=== PATIENT | female | born 1945 | race Caucasian/White ===

== ENCOUNTER → 2017-01-09 | Outpatient (CLI) | payer MEDICARE ==
[2017-01-09 13:41] LABS: Basophils # (A) 0.1 k/uL (0-0.2); Basophils % (A) 1 %; CH 26.5; CHCM 30.7; Eosinophils # (A) 0.2 k/uL (0-0.7); Eosinophils % (A) 2 %; HCT 39.9 % (34.0-46.0); HDW 2.91; HGB 12.2 gm/dL (11.4-16.0); Hypochromasia Moderate; Luc # (Auto) 0.15; Luc % (Auto) 2; Lymphocytes # (A) 1.5 k/uL (1.0-4.8); Lymphocytes % (A) 18 %; MCH 26.7 pg (25.0-35.0); MCHC 30.6 g/dL (31.0-37.0); Mean Platelet Volume 7.4; Monocytes # (A) 0.4 k/uL (0-1.0); Monocytes % (A) 5 %; Neutrophils # (A) 5.8 k/uL (1.3-7.7); Neutrophils % (A) 73 %; RBC 4.59 m/uL (3.80-5.40); RDW 15.1 % (11.5-15.5); WBC 7.9 k/uL (3.8-10.6); WBC (Perox) 7.91
[2017-01-09 14:59] LABS: ALT 75 U/L (9-52); AST 43 U/L (14-36); Alkaline Phosphatase 113 U/L (38-126); Anion Gap 6 mmol/L; Blood Urea Nitrogen 10 mg/dL (7-17); Calcium 9.1 mg/dL (8.4-10.2); Carbon Dioxide 27 mmol/L (22-30); Chloride 105 mmol/L (98-107); Cholesterol 300 mg/dL (<200); Glucose 174 mg/dL (74-99); HDL Cholesterol 43 mg/dL (40-60); Non-African American GFR(MDRD) >60 (>60 ml/min/1.73 sqM); Potassium 4.2 mmol/L (3.5-5.1); Sodium 138 mmol/L (137-145); Total Bilirubin 0.8 mg/dL (0.2-1.3); Total Protein 6.6 g/dL (6.3-8.2)
[2017-01-09 15:10] LABS: Digoxin 0.9 ng/mL
== END ==
LOC: LABWHC1 12:31
PROVIDERS: ATTEND Family Medicine
DX: I10 Essential (primary) hypertension (principal); E78.5 Hyperlipidemia, unspecified; I42.9 Cardiomyopathy, unspecified
CPT/HCPCS: 36415; 80053; 80061; 80162; 82306; 83036; 84443; 85025

== ENCOUNTER → 2017-02-21 | Outpatient (CLI) | payer MEDICARE ==
[2017-02-21 13:16] LABS: ALT 42 U/L (9-52); AST 24 U/L (14-36); Albumin 3.9 g/dL (3.5-5.0); Alkaline Phosphatase 113 U/L (38-126); Anion Gap 11 mmol/L; Blood Urea Nitrogen 13 mg/dL (7-17); Calcium 9.4 mg/dL (8.4-10.2); Carbon Dioxide 26 mmol/L (22-30); Chloride 103 mmol/L (98-107); Cholesterol 302 mg/dL (<200); Glucose 196 mg/dL (74-99); HDL Cholesterol 43 mg/dL (40-60); LDL Cholesterol,Calculated 195 mg/dL (0-99); Potassium 4.9 mmol/L (3.5-5.1); Sodium 140 mmol/L (137-145); Total Bilirubin 0.6 mg/dL (0.2-1.3); Total Protein 7.1 g/dL (6.3-8.2); Triglycerides 320 mg/dL (<150)
== END | disposition home or self-care (01) ==
LOC: LABWHC1 11:57
PROVIDERS: ATTEND Family Medicine
DX: E78.5 Hyperlipidemia, unspecified (principal)
CPT/HCPCS: 36415; 80053; 80061; 82306

== ENCOUNTER 2017-05-20 17:49 | Inpatient (IN) | payer MEDICARE ==
[2017-05-20 18:12] LABS: Glucose,Whole Blood 494 mg/dL (75-99)
[2017-05-20] MEDS ORDERED: SODIUM CHLORIDE 0.9% 1,000 ML IV ONE ×2 (18:22)
[2017-05-20] MEDS ORDERED: INSULIN REGULAR 100 UNIT/ML VIAL SQ STA (18:23)
--- NOTE | 2017-05-20 18:28 | ED ---
Altered Mental Status HPI - General Chief Complaint: Altered Mental Status Stated Complaint: ALTERED MENTAL Time Seen by Provider: 05/20/17 18:15 Source: patient Mode of arrival: ambulatory Limitations: no limitations - History of Present Illness Initial Comments: This 72-year-old white female presents with the sister with a complaint of some altered mental status. The patient was supposed to go out with her sister for lunch yesterday when she called it off due to some problems with her vision. She did not answer her phone this morning so her sister went over to her house. She apparently was very confused and was trying to climb into the fridge among other things. The patient complains that her mouth feels dry but otherwise does not have any other complaints and is not in pain. She denies any recent injuries or head injuries. She is diabetic and her blood sugar is elevated. She denies any urinary symptoms. She denies any pulmonary symptoms. She is on Coumadin due to a mitral valve replacement. She also has a pacemaker. No other complaints or modifying factors. History is somewhat limited as patient is fairly confused. On recheck, the patient does relate that she may have missed some of her medications but still is very confused. - Related Data Home Medications Medication Instructions Recorded Confirmed Digoxin [Lanoxin] 0.25 mg PO DAILY 11/09/13 05/20/17 Furosemide [Lasix] 40 mg PO BID 11/09/13 05/20/17 Pioglitazone [Actos] 15 mg PO DAILY 11/09/13 05/20/17 Lisinopril [Prinivil] 10 mg PO DAILY 05/20/17 05/20/17 Pravastatin Sodium [Pravachol] 40 mg PO HS 05/20/17 05/20/17 Warfarin Sodium 7.5 mg PO FR 05/20/17 05/20/17 Warfarin [Coumadin] 5 mg PO DAILY 05/20/17 05/20/17 metFORMIN HCL 1,000 mg PO BID 05/20/17 05/20/17 Allergies Allergy/AdvReac Type Severity Reaction Status Date / Time ciprofloxacin [From Cipro] Allergy Rash/Hives Verified 06/13/15 11:30 ciprofloxacin HCl Allergy Rash/Hives Verified 06/13/15 11:30 [From Cipro] Quinolones Allergy Unknown Verified 06/13/15 11:30 Review of Systems ROS Statement: Those systems with pertinent positive or pertinent negative responses have been documented in the HPI. ROS Other: All systems not noted in ROS Statement are negative. Past Medical History Past Medical History: Atrial Fibrillation, Asthma, Cancer, Diabetes Mellitus, Hyperlipidemia, Hypertension, Sleep Apnea/CPAP/BIPAP Additional Past Medical History / Comment(s): BREAST CA HAD LT LUMPECTOMY, MIGRAINES History of Any Multi-Drug Resistant Organisms: None Reported Past Surgical History: Breast Surgery, Orthopedic Surgery Additional Past Surgical History / Comment(s): LUMPECTOMY- LEFT BREAST FOR TREATMENT OF CA, D AND C, SINUS HAS A MECHANICAL VALVE, PACEMEKER, BETSY CATARACT SX -LENS IMPLANTS, SX FOR BROKEN RT FEMUR HAS METAL IN PLACE, LT ROTATOR CUFF SX. Mitral valve replacement mechanical, right hip fracture requiring right hip hemiarthroplasty in March 2012 hemiarthroplasty in the 2012 left breast lumpectomy with radiation treatment: Polypectomy spinal cord cyst removal partial hysterectomy Past Anesthesia/Blood Transfusion Reactions: No Reported Reaction Date of Last Stent Placement:: 2004? Type of Cardiac Device: Permanent Pacemaker Device Placement Date:: 2008 Past Psychological History: No Psychological Hx Reported Smoking Status: Former smoker Past Alcohol Use History: Rare Past Drug Use History: None Reported - Past Family History Father Additional Family Medical History / Comment(s): OF BLEEDING ULCER AT AGE 64 mother with colon cancer Mother Family Medical History: Cancer, CVA/TIA Additional Family Medical History / Comment(s): 88 YEARS OLD- HX STROKES, CANCER INTESTINAKL TRACT General Exam - General Exam Comments Initial Comments: GENERAL: The patient is well nourished and well hydrated. VITAL SIGNS: Heart rate, blood pressure, respiratory rate reviewed as recorded in nurse's notes. EYES: Pupils are round and reactive. Extraocular movements are intact. No conjunctival / lid redness or swelling. Vision is grossly intact. ENT: No external evidence of injury, swelling, or ecchymosis. Airway is patent. Throat is clear. NECK: Nontender. No swelling or evidence of injury. No subcutaneous emphysema. Trachea is midline. No thyroid mass. HEART: Tachycardic irregular heart rate. Good peripheral pulses. LUNGS/CHEST: Breath sounds clear and equal bilaterally. No rales, rhonchi, or wheezes. No ecchymosis, subcutaneous emphysema, or tenderness. ABDOMEN: Abdomen soft without tenderness. No palpable masses or organomegaly. No peritoneal signs. No abdominal wall swelling or ecchymosis. EXTREMITIES: No extremity tenderness. Normal muscle tone and function. No thoracolumbar tenderness. No peripheral edema noted. NEUROLOGIC: Sensation is grossly intact. Cranial nerve exam reveals face is symmetrical, tongue is midline, speech is clear. Normal muscle strength. SKIN: No abrasions or ecchymosis is noted. No induration or masses noted. PSYCHIATRIC: Alert but confused. Appropriate behavior and judgment. Limitations: no limitations Course Vital Signs 05/20/17 05/20/17 05/20/17 17:56 18:35 20:05 Temperature 98.0 F 98.4 F Pulse Rate 72 123 H 120 H Respiratory 18 18 18 Rate Blood Pressure 202/102 185/95 201/96 O2 Sat by Pulse 98 96 Oximetry 05/20/17 20:56 Temperature Pulse Rate 109 H Respiratory 18 Rate Blood Pressure 185/88 O2 Sat by Pulse 99 Oximetry Medical Decision Making - Medical Decision Making The patient was seen and examined. All diagnostics were reviewed. An EKG was done which shows atrial flutter at a heart rate of 120. The patient has some ST -T wave abnormalities primarily in the inferior leads and slightly into lead 1. The QRS duration is 86, and the QTC intervals 460. An IV is started and she is hydrated. Her blood sugar was significantly elevated and she received 14 units of insulin subcutaneously. The laboratory came back with multiple abnormalities including a glucose level elevated at 568, potassium elevated at 5.5, subtherapeutic INR at 1.2, elevated white blood cell count at 14, and a CO2 of 20. She also has some ketones in her urine but there is no evidence of urinary infection. The chest x-ray shows some pulmonary congestion and cardiomegaly. The computed tomography scan shows an old lacunar infarct as well as some sinusitis. She does relate that she has chronic sinus congestion. It is felt as though she would require admission to the hospital. She is started on a Cardizem drip and also receives heparin drip. She is slightly improved on recheck but still confused. The case is discussed with internal medicine and they're agreeable with admission. Approximately 30 minutes of critical care time is utilized and the treatment of the patient. - Lab Data Result diagrams: 05/20/17 18:20 05/20/17 18:20 Lab Results 05/20/17 05/20/17 05/20/17 Range/Units 18:09 18:20 18:20 WBC 14.0 H (3.8-10.6) k/uL RBC 6.11 H (3.80-5.40) m/uL Hgb 15.8 (11.4-16.0) gm/dL Hct 52.2 H (34.0-46.0) % MCV 85.4 (80.0-100.0) fL MCH 25.9 (25.0-35.0) pg MCHC 30.3 L (31.0-37.0) g/dL RDW 15.4 (11.5-15.5) % Plt Count 248 (150-450) k/uL Neutrophils % 89 % Lymphocytes % 6 % Monocytes % 4 % Eosinophils % 1 % Basophils % 0 % Neutrophils # 12.4 H (1.3-7.7) k/uL Lymphocytes # 0.9 L (1.0-4.8) k/uL Monocytes # 0.5 (0-1.0) k/uL Eosinophils # 0.1 (0-0.7) k/uL Basophils # 0.0 (0-0.2) k/uL Hypochromasia Slight PT (9.0-12.0) sec INR (<1.2) APTT (22.0-30.0) sec Sodium (137-145) mmol/L Potassium (3.5-5.1) mmol/L Chloride (98-107) mmol/L Carbon Dioxide (22-30) mmol/L Anion Gap mmol/L BUN (7-17) mg/dL Creatinine (0.52-1.04) mg/dL Est GFR (CKD-EPI)AfAm (>60 ml/min/1.73 sqM) Est GFR (CKD-EPI)NonAf (>60 ml/min/1.73 sqM) Glucose (74-99) mg/dL POC Glucose (mg/dL) 494 H (75-99) mg/dL POC Glu [employer] ID Nataliya Islas Calcium (8.4-10.2) mg/dL Total Bilirubin (0.2-1.3) mg/dL AST (14-36) U/L ALT (9-52) U/L Alkaline Phosphatase (38-126) U/L Ammonia <9 (<30) umol/L Total Creatine Kinase (30-135) U/L CK-MB (CK-2) (0.0-2.4) ng/mL CK-MB (CK-2) Rel Index Troponin I (0.000-0.034) ng/mL Total Protein (6.3-8.2) g/dL Albumin (3.5-5.0) g/dL Urine Color Urine Appearance (Clear) Urine pH (5.0-8.0) Ur Specific [place] (1.001-1.035) Urine Protein (Negative) Urine Glucose (UA) (Negative) Urine Ketones (Negative) Urine Blood (Negative) Urine Nitrite (Negative) Urine Bilirubin (Negative) Urine Urobilinogen (<2.0) mg/dL Ur Leukocyte Esterase (Negative) Urine RBC (0-5) /hpf Urine WBC (0-5) /hpf Ur Squamous Epith Cells (0-4) /hpf Urine Bacteria (None) /hpf Hyaline Casts (0-2) /lpf Urine Opiates Screen (NotDetected) Ur Oxycodone Screen (NotDetected) Urine Methadone Screen (NotDetected) Ur Propoxyphene Screen (NotDetected) Ur Barbiturates Screen (NotDetected) U Tricyclic Antidepress (NotDetected) Ur Phencyclidine Scrn (NotDetected) Ur Amphetamines Screen (NotDetected) U Methamphetamines Scrn (NotDetected) U Benzodiazepines Scrn (NotDetected) Urine Cocaine Screen (NotDetected) U Marijuana (THC) Screen (NotDetected) 05/20/17 05/20/17 05/20/17 Range/Units 18:20 18:20 18:20 WBC (3.8-10.6) k/uL RBC (3.80-5.40) m/uL Hgb (11.4-16.0) gm/dL Hct (34.0-46.0) % MCV (80.0-100.0) fL MCH (25.0-35.0) pg MCHC (31.0-37.0) g/dL RDW (11.5-15.5) % Plt Count (150-450) k/uL Neutrophils % % Lymphocytes % % Monocytes % % Eosinophils % % Basophils % % Neutrophils # (1.3-7.7) k/uL Lymphocytes # (1.0-4.8) k/uL Monocytes # (0-1.0) k/uL Eosinophils # (0-0.7) k/uL Basophils # (0-0.2) k/uL Hypochromasia PT 11.1 (9.0-12.0) sec INR 1.2 H (<1.2) APTT 21.2 L (22.0-30.0) sec Sodium 133 L (137-145) mmol/L Potassium 5.5 H (3.5-5.1) mmol/L Chloride 91 L (98-107) mmol/L Carbon Dioxide 20 L (22-30) mmol/L Anion Gap 22 mmol/L BUN 33 H (7-17) mg/dL Creatinine 1.20 H (0.52-1.04) mg/dL Est GFR (CKD-EPI)AfAm 53 (>60 ml/min/1.73 sqM) Est GFR (CKD-EPI)NonAf 46 (>60 ml/min/1.73 sqM) Glucose 568 H* (74-99) mg/dL POC Glucose (mg/dL) (75-99) mg/dL POC Glu [employer] ID Calcium 10.0 (8.4-10.2) mg/dL Total Bilirubin 1.6 H (0.2-1.3) mg/dL AST 29 (14-36) U/L ALT 33 (9-52) U/L Alkaline Phosphatase 140 H (38-126) U/L Ammonia (<30) umol/L Total Creatine Kinase (30-135) U/L CK-MB (CK-2) (0.0-2.4) ng/mL CK-MB (CK-2) Rel Index Troponin I (0.000-0.034) ng/mL Total Protein 8.2 (6.3-8.2) g/dL Albumin 4.6 (3.5-5.0) g/dL Urine Color Light Yellow Urine Appearance Clear (Clear) Urine pH 5.5 (5.0-8.0) Ur Specific [place] 1.025 (1.001-1.035) Urine Protein 1+ H (Negative) Urine Glucose (UA) 4+ H (Negative) Urine Ketones 2+ H (Negative) Urine Blood Small H (Negative) Urine Nitrite Negative (Negative) Urine Bilirubin Negative (Negative) Urine Urobilinogen <2.0 (<2.0) mg/dL Ur Leukocyte Esterase Negative (Negative) Urine RBC 1 (0-5) /hpf Urine WBC 4 (0-5) /hpf Ur Squamous Epith Cells 1 (0-4) /hpf Urine Bacteria Rare H (None) /hpf Hyaline Casts 11 H (0-2) /lpf Urine Opiates Screen Not Detected (NotDetected) Ur Oxycodone Screen Not Detected (NotDetected) Urine Methadone Screen Not Detected (NotDetected) Ur Propoxyphene Screen Not Detected (NotDetected) Ur Barbiturates Screen Not Detected (NotDetected) U Tricyclic Antidepress Not Detected (NotDetected) Ur Phencyclidine Scrn Not Detected (NotDetected) Ur Amphetamines Screen Not Detected (NotDetected) U Methamphetamines Scrn Not Detected (NotDetected) U Benzodiazepines Scrn Not Detected (NotDetected) Urine Cocaine Screen Not Detected (NotDetected) U Marijuana (THC) Screen Not Detected (NotDetected) 05/20/17 05/20/17 Range/Units 18:20 19:43 WBC (3.8-10.6) k/uL RBC (3.80-5.40) m/uL Hgb (11.4-16.0) gm/dL Hct (34.0-46.0) % MCV (80.0-100.0) fL MCH (25.0-35.0) pg MCHC (31.0-37.0) g/dL RDW (11.5-15.5) % Plt Count (150-450) k/uL Neutrophils % % Lymphocytes % % Monocytes % % Eosinophils % % Basophils % % Neutrophils # (1.3-7.7) k/uL Lymphocytes # (1.0-4.8) k/uL Monocytes # (0-1.0) k/uL Eosinophils # (0-0.7) k/uL Basophils # (0-0.2) k/uL Hypochromasia PT (9.0-12.0) sec INR (<1.2) APTT (22.0-30.0) sec Sodium (137-145) mmol/L Potassium (3.5-5.1) mmol/L Chloride (98-107) mmol/L Carbon Dioxide (22-30) mmol/L Anion Gap mmol/L BUN (7-17) mg/dL Creatinine (0.52-1.04) mg/dL Est GFR (CKD-EPI)AfAm (>60 ml/min/1.73 sqM) Est GFR (CKD-EPI)NonAf (>60 ml/min/1.73 sqM) Glucose (74-99) mg/dL POC Glucose (mg/dL) 381 H (75-99) mg/dL POC Glu [employer] ID Nataliya Islas Calcium (8.4-10.2) mg/dL Total Bilirubin (0.2-1.3) mg/dL AST (14-36) U/L ALT (9-52) U/L Alkaline Phosphatase (38-126) U/L Ammonia (<30) umol/L Total Creatine Kinase 59 (30-135) U/L CK-MB (CK-2) 1.4 (0.0-2.4) ng/mL CK-MB (CK-2) Rel Index 2.4 Troponin I 0.017 (0.000-0.034) ng/mL Total Protein (6.3-8.2) g/dL Albumin (3.5-5.0) g/dL Urine Color Urine Appearance (Clear) Urine pH (5.0-8.0) Ur Specific [place] (1.001-1.035) Urine Protein (Negative) Urine Glucose (UA) (Negative) Urine Ketones (Negative) Urine Blood (Negative) Urine Nitrite (Negative) Urine Bilirubin (Negative) Urine Urobilinogen (<2.0) mg/dL Ur Leukocyte Esterase (Negative) Urine RBC (0-5) /hpf Urine WBC (0-5) /hpf Ur Squamous Epith Cells (0-4) /hpf Urine Bacteria (None) /hpf Hyaline Casts (0-2) /lpf Urine Opiates Screen (NotDetected) Ur Oxycodone Screen (NotDetected) Urine Methadone Screen (NotDetected) Ur Propoxyphene Screen (NotDetected) Ur Barbiturates Screen (NotDetected) U Tricyclic Antidepress (NotDetected) Ur Phencyclidine Scrn (NotDetected) Ur Amphetamines Screen (NotDetected) U Methamphetamines Scrn (NotDetected) U Benzodiazepines Scrn (NotDetected) Urine Cocaine Screen (NotDetected) U Marijuana (THC) Screen (NotDetected) Disposition Clinical Impression: Mental status change, Hypertension, Hyperglycemia, Atrial flutter with rapid ventricular response, Diabetes, Hyperkalemia, Hallucinations, Confusion, Pulmonary congestion, Subtherapeutic international normalized ratio (INR), Sinusitis, Leukocytosis Disposition: ADMITTED IP TO THIS HOSP Condition: Fair Referrals: None,Stated [Primary Care Provider] - 1-2 days Time of Disposition: 21:21 Decision Date: 05/20/17 Decision Time: 21:21
[2017-05-20 18:39] LABS: Basophils % (A) 0 %; Eosinophils # (A) 0.1 k/uL (0-0.7); Eosinophils % (A) 1 %; HCT 52.2 % (34.0-46.0); HGB 15.8 gm/dL (11.4-16.0); Hypochromasia Slight; Lymphocytes # (A) 0.9 k/uL (1.0-4.8); Lymphocytes % (A) 6 %; MCH 25.9 pg (25.0-35.0); MCHC 30.3 g/dL (31.0-37.0); MCV 85.4 fL (80.0-100.0); Mean Platelet Volume 8.7; Monocytes # (A) 0.5 k/uL (0-1.0); Monocytes % (A) 4 %; Neutrophils # (A) 12.4 k/uL (1.3-7.7); Neutrophils % (A) 89 %; Platelet Count 248 k/uL (150-450); RBC 6.11 m/uL (3.80-5.40); RDW 15.4 % (11.5-15.5)
[2017-05-20 18:43] LABS: Appearance,Urine Clear (Clear); Bacteria,Urine Rare /hpf; Bilirubin,Urine Negative (Negative); Blood,Urine Small (Negative); Color,Urine Light Yellow; Glucose,Urine (UA) 4+ (Negative); Hyaline Casts,Urine 11 /lpf (0-2); Leukocyte Esterase,Urine Negative (Negative); Nitrite,Urine Negative (Negative); PH, Urine 5.5 (5.0-8.0); Protein,Urine 1+ (Negative); RBC,Urine 1 /hpf (0-5); Specific Gravity,Urine 1.025 (1.001-1.035); Squamous Epithelial Cell,Urine 1 /hpf (0-4); Urobilinogen,Urine <2.0 mg/dL (<2.0); WBC,Urine 4 /hpf (0-5)
[2017-05-20 18:48] LABS: Ketones,Urine 2+ (Negative)
[2017-05-20 18:49] LABS: Amphetamine Screen,Urine Not Detected (NotDetected); Barbiturate Screen,Urine Not Detected (NotDetected); Benzodiazepines Screen,Urine Not Detected (NotDetected); Cocaine Screen,Urine Not Detected (NotDetected); Methadone Screen, Urine Not Detected (NotDetected); Opiate Screen,Urine Not Detected (NotDetected); Oxycodone Screen, Urine Not Detected (NotDetected); Phencyclidine Screen,Urine Not Detected (NotDetected); Tricyclic Antidepressant,Urine Not Detected (NotDetected); Urn Cannabinoid Scrn Not Detected (NotDetected)
[2017-05-20 18:51] LABS: Albumin 4.6 g/dL (3.5-5.0); Potassium 5.5 mmol/L (3.5-5.1); Total Bilirubin 1.6 mg/dL (0.2-1.3); Total Protein 8.2 g/dL (6.3-8.2)
[2017-05-20 18:56] LABS: INR 1.2 (<1.2); Prothrombin Time 11.1 sec (9.0-12.0)
--- NOTE | 2017-05-20 19:08 | XR ---
EXAMINATION TYPE: XR chest 2V DATE OF EXAM: 05/20/2017 COMPARISON: 11/14/2013 HISTORY: Altered mental status TECHNIQUE: Frontal and lateral views of the chest are obtained. FINDINGS: Heart is enlarged. There is mild pulmonary congestion. There is a right axillary pacemaker with the lead tips in the right ventricle. There are sternal wires. I see no pleural effusion. IMPRESSION: Cardiomegaly and pulmonary congestion appears slightly worse than last exam. No pleural fluid. There is no overt heart failure.
[2017-05-20 19:12] LABS: Partial Thromboplastin Time 21.2 sec (22.0-30.0)
[2017-05-20 19:16] LABS: Creatine Kinase MB 1.4 ng/mL (0.0-2.4); Troponin I 0.017 ng/mL (0.000-0.034)
--- NOTE | 2017-05-20 19:38 | CT ---
EXAMINATION TYPE: CT brain wo con DATE OF EXAM: 05/20/2017 COMPARISON: NONE HISTORY: Patient appears confused and has difficulty following instructions CT DLP: 1923 mGycm Automated exposure control for dose reduction was used. FINDINGS: There is mild cerebral cortical atrophy. There is no mass effect nor midline shift. There is no sign of intracranial hemorrhage. There is old 2 cm lacunar infarct in the anterior right internal capsule and right posterior frontal lobe white matter. The calvarium appears intact. There is some mucosal th ickening in the right frontal sinus. IMPRESSION: RIGHT FRONTAL SINUSITIS. CEREBRAL ATROPHY. 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
[2017-05-20 19:45] LABS: Glucose,Whole Blood 381 mg/dL (75-99)
[2017-05-20] MEDS ORDERED: DILTIAZEM 50 MG in SODIUM CHLORIDE 0.9% 40 ML IV ONE (19:45)
[2017-05-20] MEDS ORDERED: HEPARIN SODIUM,PORCINE 5,000 UNIT/ML 1 ML VIAL IV PRN (20:33)
[2017-05-20] MEDS ORDERED: HEPARIN SODIUM,PORCINE 5,000 UNIT/ML 1 ML VIAL IV ONE (20:33)
[2017-05-20] MEDS: HEPARIN SOD,PORK IN 0.45% NACL 25,000 UNIT in 0.45% NACL 1 500ML.BAG IV SCH (20:54)
[2017-05-20] MEDS ORDERED: SODIUM POLYSTYRENE SULFONATE 15 GM/60 ML BOTTLE PO STA (21:21)
[2017-05-20] MEDS ORDERED: ONDANSETRON 4 MG/2 ML VIAL IVP PRN (21:22)
[2017-05-20] MEDS ORDERED: NALOXONE 0.4 MG/ML 1 ML VIAL IV PRN (21:22)
[2017-05-21 00:29] LABS: Glucose,Whole Blood 274 mg/dL (75-99)
[2017-05-21 00:50] LABS: Troponin I 0.037 ng/mL (0.000-0.034)
[2017-05-21 06:03] LABS: Glucose,Whole Blood 153 mg/dL (75-99)
[2017-05-21] MEDS: INSULIN ASPART 100 UNIT/ML 1 ML 10 ML VIAL SQ SCH ×4 (06:13→21:34)
[2017-05-21] MEDS: FUROSEMIDE 40 MG TAB PO SCH ×2 (06:15→15:55)
[2017-05-21] MEDS ORDERED: metFORMIN 500 MG TAB PO SCH (07:30)
[2017-05-21 07:42] LABS: Creatine Kinase MB 0.9 ng/mL (0.0-2.4)
[2017-05-21 07:45] LABS: Troponin I 0.039 ng/mL (0.000-0.034)
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
[2017-05-21] MEDS ORDERED: LISINOPRIL 10 MG TAB PO SCH (09:00)
[2017-05-21] MEDS: PANTOPRAZOLE 40 MG/10 ML VIAL IV SCH (09:46)
[2017-05-21] MEDS: PIOGLITAZONE 15 MG TAB PO SCH (09:46)
[2017-05-21] MEDS: METOPROLOL TARTRATE 25 MG TAB PO SCH ×2 (09:46→20:46)
[2017-05-21] MEDS: DIGOXIN 250 MCG TAB PO SCH (09:46)
--- NOTE | 2017-05-21 11:30 | P.HPIM ---
History of Present Illness Patient is a very pleasant 72-year-old female was brought into the hospital because she was confused at home patient is found to have highly elevated blood sugars patient denied any fever chills dysuria patient denied any cough runny nose. Patient blood sugars are highly elevated patient stopped taking her medications as they she didn't feel well patient appears to be depressed after her mother's demise patient did say that she has been taking Coumadin but had INR is only 1.2. We do not believe patient is a taking Coumadin at home patient will be resumed on 7.5 mg of troponin patient does have history of atrial fibrillation patient does have some pulmonary edema on the chest x-ray BNP is only 500 patient has minimally elevated JVD patient is undergone treatment for the can start failure patient's previous ejection fraction is 50- 55% patient may either have metabolic encephalopathy are a small stroke and within her confusion neurology will be consulted patient will be resumed on anti -correlation as mentioned above valid to the patient. Patient blood sugars are well controlled patient's metformin were discontinued because of the borderline kidney function lisinopril will be held because of the hyperkalemia repeat a single metabolic profile tomorrow. Neurology was consulted. Her mental status is close to her baseline now Review of Systems REVIEW OF SYSTEMS: CONSTITUTIONAL: No fever, no malaise, no fatigue. HEENT: No recent visual problems or hearing problems. Denied any sore throat. CARDIOVASCULAR: No chest pain, orthopnea, PND, no palpitations, no syncope. PULMONARY: No shortness of breath, no cough, no hemoptysis. GASTROINTESTINAL: No diarrhea, no nausea, no vomiting, no abdominal pain. Normoactive bowel sounds. NEUROLOGICAL: No headaches, no weakness, no numbness. HEMATOLOGICAL: Denies any bleeding or petechiae. GENITOURINARY: Denies any burning micturition, frequency, or urgency. MUSCULOSKELETAL/RHEUMATOLOGICAL: Denies any joint pain, swelling, or any muscle pain. ENDOCRINE: Denies any polyuria or polydipsia. The rest of the 14-point review of systems is negative. Past Medical History Past Medical History: Atrial Fibrillation, Atrial Flutter, Asthma, Cancer, Diabetes Mellitus, Hyperlipidemia, Hypertension, Sleep Apnea/CPAP/BIPAP Additional Past Medical History / Comment(s): BREAST CA HAD LT LUMPECTOMY, MIGRAINES History of Any Multi-Drug Resistant Organisms: None Reported Past Surgical History: Breast Surgery, Orthopedic Surgery Additional Past Surgical History / Comment(s): LUMPECTOMY- LEFT BREAST FOR TREATMENT OF CA, D AND C, SINUS HAS A MECHANICAL VALVE, PACEMEKER, BETSY CATARACT SX -LENS IMPLANTS, SX FOR BROKEN RT FEMUR HAS METAL IN PLACE, LT ROTATOR CUFF SX. Mitral valve replacement mechanical, right hip fracture requiring right hip hemiarthroplasty in March 2012 hemiarthroplasty in the 2012 left breast lumpectomy with radiation treatment: Polypectomy spinal cord cyst removal partial hysterectomy Past Anesthesia/Blood Transfusion Reactions: No Reported Reaction Date of Last Stent Placement:: 2004? Type of Cardiac Device: Permanent Pacemaker Device Placement Date:: 2008 Past Psychological History: No Psychological Hx Reported Smoking Status: Former smoker Past Alcohol Use History: Rare Additional Past Alcohol Use History / Comment(s): SMOKED OFF AND ON 1960 LESS THAN A YEAR THEN QUIT Past Drug Use History: None Reported - Past Family History Father Additional Family Medical History / Comment(s): OF BLEEDING ULCER AT AGE 64 mother with colon cancer Mother Family Medical History: Cancer, CVA/TIA Additional Family Medical History / Comment(s): 88 YEARS OLD- HX STROKES, CANCER INTESTINAKL TRACT Medications and Allergies Home Medications Medication Instructions Recorded Confirmed Type Digoxin [Lanoxin] 0.25 mg PO DAILY 11/09/13 05/20/17 History Furosemide [Lasix] 40 mg PO BID 11/09/13 05/20/17 History Pioglitazone [Actos] 15 mg PO DAILY 11/09/13 05/20/17 History Lisinopril [Prinivil] 10 mg PO DAILY 05/20/17 05/20/17 History Pravastatin Sodium [Pravachol] 40 mg PO HS 05/20/17 05/20/17 History Warfarin Sodium 7.5 mg PO FR 05/20/17 05/20/17 History Warfarin [Coumadin] 5 mg PO DAILY 05/20/17 05/20/17 History metFORMIN HCL 1,000 mg PO BID 05/20/17 05/20/17 History Allergies Allergy/AdvReac Type Severity Reaction Status Date / Time ciprofloxacin [From Cipro] Allergy Rash/Hives Verified 06/13/15 11:30 ciprofloxacin HCl Allergy Rash/Hives Verified 06/13/15 11:30 [From Cipro] Quinolones Allergy Unknown Verified 05/02/16 11:30 Physical Exam Vitals: Vital Signs Temp Pulse Pulse Resp BP BP Pulse Ox 05/21/17 09:41 95 05/21/17 08:00 98.3 F 71 16 114/59 98 05/21/17 04:00 98.2 F 90 18 116/58 99 05/20/17 23:58 98.4 F 110 H 18 143/63 95 05/20/17 23:48 110 H 18 05/20/17 22:07 99.2 F 05/20/17 22:00 98.4 F 110 H 18 143/63 95 05/20/17 21:47 112 H 18 176/74 99 05/20/17 20:56 109 H 18 185/88 99 05/20/17 20:05 98.4 F 120 H 18 201/96 96 05/20/17 18:35 123 H 18 185/95 05/20/17 17:56 98.0 F 72 18 202/102 98 Intake and Output 05/20/17 05/21/17 05/21/17 22:59 06:59 14:59 Intake Total 246 124.875 Balance 246 124.875 Intake: Intake, IV Titration 246 124.875 Amount Diltiazem 50 mg In Sodium 10 Chloride 0.9% 40 ml @ 5 MG/HR 5 mls/hr IV .Q10H [facility] Rx#:[id number] Heparin Sod,Pork in 0.45% 36 124.875 NaCl 25,000 unit In 0.45 % NaCl 1 500ml.bag @ 12 UNITS/KG/HR 18.5 mls/hr IV .Q24H [facility] Rx#: [id number] Sodium Chloride 0.9% 1, 200 000 ml @ 100 mls/hr IV . Q10H [facility] Rx#:[id number] Other: Voiding Method Toilet Weight 77.111 kg 80.5 kg 80.5 kg PHYSICAL EXAMINATION: GENERAL: The patient is alert and oriented x3, not in any acute distress. Well developed, well nourished. HEENT: Pupils are round and equally reacting to light. EOMI. No scleral icterus. No conjunctival pallor. Normocephalic, atraumatic. No pharyngeal erythema. No thyromegaly. CARDIOVASCULAR: S1 and S2 present. No murmurs, rubs, or gallops. Patient has minimally elevated JVD PULMONARY: Chest is clear to auscultation, no wheezing or crackles. ABDOMEN: Soft, nontender, nondistended, normoactive bowel sounds. No palpable organomegaly. MUSCULOSKELETAL: No joint swelling or deformity. EXTREMITIES: No cyanosis, clubbing, or pedal edema. NEUROLOGICAL: Gross neurological examination did not reveal any focal deficits. SKIN: No rashes. Results CBC & Chem 7: 05/20/17 18:20 05/20/17 18:20 Labs: Abnormal Lab Results - Last 24 Hours (Table) 05/20/17 05/20/17 05/20/17 Range/Units 18:09 18:20 18:20 WBC 14.0 H (3.8-10.6) k/uL RBC 6.11 H (3.80-5.40) m/uL Hct 52.2 H (34.0-46.0) % MCHC 30.3 L (31.0-37.0) g/dL Neutrophils # 12.4 H (1.3-7.7) k/uL Lymphocytes # 0.9 L (1.0-4.8) k/uL INR (<1.2) APTT (22.0-30.0) sec Sodium 133 L (137-145) mmol/L Potassium 5.5 H (3.5-5.1) mmol/L Chloride 91 L (98-107) mmol/L Carbon Dioxide 20 L (22-30) mmol/L BUN 33 H (7-17) mg/dL Creatinine 1.20 H (0.52-1.04) mg/dL Glucose 568 H* (74-99) mg/dL POC Glucose (mg/dL) 494 H (75-99) mg/dL Total Bilirubin 1.6 H (0.2-1.3) mg/dL Alkaline Phosphatase 140 H (38-126) U/L Troponin I (0.000-0.034) ng/mL Urine Protein (Negative) Urine Glucose (UA) (Negative) Urine Ketones (Negative) Urine Blood (Negative) Urine Bacteria (None) /hpf Hyaline Casts (0-2) /lpf 05/20/17 05/20/17 05/20/17 Range/Units 18:20 18:20 19:43 WBC (3.8-10.6) k/uL RBC (3.80-5.40) m/uL Hct (34.0-46.0) % MCHC (31.0-37.0) g/dL Neutrophils # (1.3-7.7) k/uL Lymphocytes # (1.0-4.8) k/uL INR 1.2 H (<1.2) APTT 21.2 L (22.0-30.0) sec Sodium (137-145) mmol/L Potassium (3.5-5.1) mmol/L Chloride (98-107) mmol/L Carbon Dioxide (22-30) mmol/L BUN (7-17) mg/dL Creatinine (0.52-1.04) mg/dL Glucose (74-99) mg/dL POC Glucose (mg/dL) 381 H (75-99) mg/dL Total Bilirubin (0.2-1.3) mg/dL Alkaline Phosphatase (38-126) U/L Troponin I (0.000-0.034) ng/mL Urine Protein 1+ H (Negative) Urine Glucose (UA) 4+ H (Negative) Urine Ketones 2+ H (Negative) Urine Blood Small H (Negative) Urine Bacteria Rare H (None) /hpf Hyaline Casts 11 H (0-2) /lpf 05/20/17 05/21/17 05/21/17 Range/Units 23:48 00:27 02:29 WBC (3.8-10.6) k/uL RBC (3.80-5.40) m/uL Hct (34.0-46.0) % MCHC (31.0-37.0) g/dL Neutrophils # (1.3-7.7) k/uL Lymphocytes # (1.0-4.8) k/uL INR (<1.2) APTT 44.7 H (22.0-30.0) sec Sodium (137-145) mmol/L Potassium (3.5-5.1) mmol/L Chloride (98-107) mmol/L Carbon Dioxide (22-30) mmol/L BUN (7-17) mg/dL Creatinine (0.52-1.04) mg/dL Glucose (74-99) mg/dL POC Glucose (mg/dL) 274 H (75-99) mg/dL Total Bilirubin (0.2-1.3) mg/dL Alkaline Phosphatase (38-126) U/L Troponin I 0.037 H* (0.000-0.034) ng/mL Urine Protein (Negative) Urine Glucose (UA) (Negative) Urine Ketones (Negative) Urine Blood (Negative) Urine Bacteria (None) /hpf Hyaline Casts (0-2) /lpf 05/21/17 05/21/17 05/21/17 Range/Units 06:02 06:18 09:31 WBC (3.8-10.6) k/uL RBC (3.80-5.40) m/uL Hct (34.0-46.0) % MCHC (31.0-37.0) g/dL Neutrophils # (1.3-7.7) k/uL Lymphocytes # (1.0-4.8) k/uL INR (<1.2) APTT 53.0 H (22.0-30.0) sec Sodium (137-145) mmol/L Potassium (3.5-5.1) mmol/L Chloride (98-107) mmol/L Carbon Dioxide (22-30) mmol/L BUN (7-17) mg/dL Creatinine (0.52-1.04) mg/dL Glucose (74-99) mg/dL POC Glucose (mg/dL) 153 H (75-99) mg/dL Total Bilirubin (0.2-1.3) mg/dL Alkaline Phosphatase (38-126) U/L Troponin I 0.039 H* (0.000-0.034) ng/mL Urine Protein (Negative) Urine Glucose (UA) (Negative) Urine Ketones (Negative) Urine Blood (Negative) Urine Bacteria (None) /hpf Hyaline Casts (0-2) /lpf Thrombosis Risk Factor Assmnt - Choose All That Apply Each Risk Factor Represents 2 Points: Age 61-74 years Each Risk Factor Represents 5 Points: Stroke (< 1 month) Thrombosis Risk Factor Assessment Total Risk Factor Score: 7 Thrombosis Risk Factor Assessment Level: High Risk Assessment and Plan Plan: -Confusion and altered mental status: Most probably medical Metabolic instability from elevated blood sugars which improved now. I cannot completely rule out a small TIA or stroke neurology will be consulted patient resumed her anti-correlation patient metformin will be held patient with sliding scale insulin blood sugars are well controlled today. -Hypoglycemia and type 2 diabetes mellitus, uncontrolled due to non-compliance with medications. Patient doesn't have any signs or symptoms of infection at this point of time -Mild acute renal failure secondary to renal azotemia from congestive heart failure. -Possible congestive heart failure exacerbation chronic diastolic dysfunction with acute exacerbation. Patient on IV Lasix now. -Hyperkalemia: Secondary to lisinopril and renal dysfunction from the start failure -Pseudohyponatremia from hyperglycemia. -Atrial fibrillation: On controlled heart rate because of not taking medication patient was on Cardizem drip and patient the was evaluated by cardiology patient is on anti-correlation as to resume -Subtherapeutic: Due to above-mentioned reasons patient will be resumed on her Coumadin dose. -Hyperlipidemia -Fibromyalgia -sleep apnea
[2017-05-21 11:33] LABS: Glucose,Whole Blood 224 mg/dL (75-99)
[2017-05-21] MEDS: ACETAMINOPHEN TAB 325 MG TAB PO PRN ×2 (14:11→20:45)
[2017-05-21] MEDS: WARFARIN 7.5 MG TAB PO SCH (15:55)
[2017-05-21] MEDS: HEPARIN SOD,PORK IN 0.45% NACL 25,000 UNIT in 0.45% NACL 1 500ML.BAG IV SCH (16:01)
[2017-05-21 16:29] LABS: Hemoglobin A1C 11.4 % (4.0-6.0)
[2017-05-21 16:53] LABS: Glucose,Whole Blood 280 mg/dL (75-99)
--- NOTE | 2017-05-21 17:48 | ECHOF ---
Referral Reason:sob MEASUREMENTS -------- HEIGHT: 162.6 cm WEIGHT: 80.3 kg BP: 116/58 IVSd: 1.3 cm (0.6 - 1.1) LVIDd: 3.7 cm (3.9 - 5.3) LVPWd: 1.4 cm (0.6 - 1.1) IVSs: 2.0 cm LVIDs: 2.3 cm LVPWs: 1.8 cm Ao Diam: 2.3 cm (2.0 - 3.7) LA Diam: 5.0 cm (2.7 - 3.8) MV E Jaquan: 1.95 m/s MV DecT: 216 ms MV A Jaquan: 0.76 m/s MV E/A Ratio: 2.57 RAP: 5.00 mmHg RVSP: 30.53 mmHg FINDINGS -------- Pacerwire seen in RV and RA. This was a technically good study. The left ventricular size is normal. There is mild concentric left ventricular hypertrophy. Overa ll left ventricular systolic function is low-normal with, an EF between 50 - 55 %. There is paradox ical/dysynergic septal motion consistent with post-operative status. The right ventricle is normal in size. The left atrium is markedly dilated. The right atrium is normal in size. Aortic valve is trileaflet and is mildly thickened. The peak and mean MV gradients are 15.23mmHg 5.37mmHg as measured by doppler. Normally functioning bioprosthetic mitral valve. Mild tricuspid regurgitation present. The right ventricular systolic pressure, as measured by Doppl er, is 30.53mmHg. Pulmonic valve appears structurally normal. The aortic root size is normal. Normal inferior vena cava with normal inspiratory collapse consistent with estimated right atrial pre ssure of 5 mmHg. There is a trivial pericardial effusion present. CONCLUSIONS -------- 1. Pacerwire seen in RV and RA. 2. This was a technically good study. 3. The left ventricular size is normal. 4. There is mild concentric left ventricular hypertrophy. 5. Overall left ventricular systolic function is low-normal with, an EF between 50 - 55 %. 6. There is paradoxical/dysynergic septal motion consistent with post-operative status. 7. The right ventricle is normal in size. 8. The left atrium is markedly dilated. 9. The right atrium is normal in size. 10. Aortic valve is trileaflet and is mildly thickened. 11. The peak and mean MV gradients are 15.23mmHg 5.37mmHg as measured by doppler. 12. Normally functioning bioprosthetic mitral valve. 13. Mild tricuspid regurgitation present. 14. The right ventricular systolic pressure, as measured by Doppler, is 30.53mmHg. 15. Pulmonic valve appears structurally normal. 16. The aortic root size is normal. 17. Normal inferior vena cava with normal inspiratory collapse consistent with estimated right atrial pressure of 5 mmHg. 18. There is a trivial pericardial effusion present. ELEMENTARY EDUCATION TEACHER: Lilo Styles RDCS
[2017-05-21] MEDS ORDERED: WARFARIN 5 MG TAB PO SCH (18:00)
[2017-05-21] MEDS: HYDROcodone/APAP 5-325MG 1 EACH TAB PO PRN (18:46)
[2017-05-21] MEDS: PRAVASTATIN SODIUM 40 MG TAB PO SCH (20:46)
[2017-05-21 20:57] LABS: Glucose,Whole Blood 264 mg/dL (75-99)
--- NOTE | 2017-05-21 21:49 | CONS ---
CONSULTATION DATE OF CONSULTATION: 05/21/2017. CHIEF COMPLAINT: Stroke. HISTORY OF PRESENT ILLNESS: Mrs. Eric is a pleasant 72-year-old female who is being evaluated by the neurology service per the request of Dr. Logan for a stroke. The patient was brought into [facility] after her family noticed that she has been quite confused. Her symptoms started the day prior to her arrival and have been getting worse. According to the family, they spoke with her 2 days ago and she was complaining of feeling tired, but she sounded normal. Yesterday, she was quite confused when she was brought in. According to the chart, the patient has stopped taking all of her home medications, but it is unclear when she did so. She does have history of atrial fibrillation and is on Coumadin at home. Her INR was found to be subtherapeutic at 1.2. A stat CT scan of the brain was done, which showed lacunar infarcts involving the right internal capsule and the right frontal lobe along with generalized atrophy. Her CBC showed mild leukocytosis at 14.0. Her cardiac enzymes were negative. Her comprehensive metabolic profile showed mild hyponatremia at 133 and hyperkalemia at 5.5. She also had renal insufficiency with a BUN of 33 and creatinine of 1.2 and significant hyperglycemia at 568. Her urine drug screen was negative. The patient was admitted and started on IV heparin and her Coumadin was restarted. At the time of my evaluation, she is lying in her bed and appears to be in no acute distress. According to the family, her mental status has improved, but she is still not at baseline. PAST MEDICAL HISTORY: Atrial fibrillation, atrial flutter, asthma, cancer, diabetes, dyslipidemia, hypertension, obstructive sleep apnea, history of breast cancer with lumpectomy, migraine headaches, history of orthopedic surgeries, pacemaker placement, cataract surgeries, history of lens implant. SOCIAL HISTORY: The patient is a former smoker. She rarely drinks alcohol. She denies any drug use. FAMILY HISTORY: Positive for strokes and cancer. HOME MEDICATIONS: Reviewed in the chart. ALLERGIES: CIPRO and QUINOLONES. REVIEW OF SYSTEM: CONSTITUTIONAL: Positive for fatigue. EYES: Positive for chronic blurred vision. ENT: Negative. CARDIOVASCULAR: As mentioned above. RESPIRATORY: Negative. NEUROLOGICAL: As mentioned above. GASTROINTESTINAL: Negative. GENITOURINARY: Negative. MUSCULOSKELETAL: Positive for occasional joint pain. PSYCHIATRIC: Negative. DERMATOLOGICAL: Negative. ENDOCRINE: Positive for diabetes. PHYSICAL EXAM: Vital signs show a temperature of 98.3, pulse 73, respirations 16, blood pressure 133/62. GENERAL APPEARANCE: The patient is a well-developed female, who appears to be in no acute distress. HEENT: Normocephalic, atraumatic. Extraocular muscle testing showed a right gaze palsy. No facial asymmetry is seen. NECK: Supple with no masses felt. CARDIOVASCULAR: Irregularly irregular rhythm with a normal rate. ABDOMEN: Nontender, nondistended. Extremities showed trace edema with no clubbing seen. NEUROLOGICAL: The patient is awake and oriented to person and place. She could not recall the year. Language testing showed reduced naming, but her repetition, comprehension and fluency are intact. Speech is normal. Strength is 4+ out of 5 in bilateral lower extremities and 5- out of 5 in bilateral upper extremities. Sensory exam was normal to light touch in all 4 extremities. Cranial nerve testing showed a right visual field cut and a right gaze palsy. IMPRESSION: 1. Acute ischemic stroke. 2. Right visual field cut. 3. Altered mental status. 4. Acute metabolic encephalopathy. 5. Coagulopathy. 6. Renal insufficiency. 7. Uncontrolled diabetes. RECOMMENDATION: The patient does appear to have suffered an acute ischemic stroke likely involving the right occipital lobe, as she does have a right visual field cut on neurological examination. Her CT scan of the brain initially showed multiple lacunar infarcts, but those appear to be old. The patient is unable to undergo any MRI imaging due to a history of pacemaker implantation. I will repeat a CT scan of the brain in the morning. The patient's Coumadin was discontinued by the patient and this appears to be several days ago, as her INR is 1.2 at the time of admission. She has been started on IV heparin and Coumadin has been restarted. Once Coumadin levels/INR is therapeutic, heparin should be discontinued. I will order a carotid Doppler, fasting lipid panel, EEG and serum homocystine level. As for her altered mental status, this is likely due to her renal insufficiency. Continue IV hydration as tolerated. Her hyperglycemia may have also played a role in her confusion. Prognosis is guarded. I will continue to follow with you. Further recommendations to follow. Thank you for allowing me to participate in the care of your patient. If you have any questions, please feel free to contact me. MMTEREZAL / IJN: [id number] /
[2017-05-22 05:53] LABS: Glucose,Whole Blood 111 mg/dL (75-99)
[2017-05-22] MEDS: INSULIN ASPART 100 UNIT/ML 1 ML 10 ML VIAL SQ SCH ×4 (05:55→21:15)
[2017-05-22] MEDS: DIGOXIN 250 MCG TAB PO SCH (06:00)
[2017-05-22] MEDS: FUROSEMIDE 40 MG TAB PO SCH ×2 (06:01→16:30)
[2017-05-22 06:11] LABS: HCT 38.9 % (34.0-46.0); MCH 27.4 pg (25.0-35.0); MCHC 32.9 g/dL (31.0-37.0); MCV 83.3 fL (80.0-100.0); Platelet Count 172 k/uL (150-450); RBC 4.67 m/uL (3.80-5.40); RDW 15.1 % (11.5-15.5); WBC 7.9 k/uL (3.8-10.6)
[2017-05-22 06:19] LABS: HGB 12.8 gm/dL (11.4-16.0)
[2017-05-22 06:22] LABS: INR 1.2 (<1.2); Partial Thromboplastin Time 92.3 sec (22.0-30.0); Prothrombin Time 11.6 sec (9.0-12.0)
[2017-05-22] MEDS: PANTOPRAZOLE 40 MG/10 ML VIAL IV SCH (07:48)
[2017-05-22] MEDS: METOPROLOL TARTRATE 25 MG TAB PO SCH (07:48)
[2017-05-22] MEDS: PIOGLITAZONE 15 MG TAB PO SCH (07:48)
[2017-05-22 07:56] LABS: Anion Gap 10 mmol/L; Blood Urea Nitrogen 17 mg/dL (7-17); Calcium 8.5 mg/dL (8.4-10.2); Carbon Dioxide 25 mmol/L (22-30); Chloride 104 mmol/L (98-107); Cholesterol 258 mg/dL (<200); Glucose 119 mg/dL (74-99); HDL Cholesterol 37 mg/dL (40-60); LDL Cholesterol,Calculated 181 mg/dL (0-99); Sodium 139 mmol/L (137-145); Triglycerides 201 mg/dL (<150)
[2017-05-22] MEDS ORDERED: Potassium Replacement Protocol 1 EACH MISC MISCELLANE PRN (08:58)
[2017-05-22] MEDS ORDERED: Magnesium Replacement Protocol 1 EACH MISC MISCELLANE PRN (09:02)
[2017-05-22] MEDS: POTASSIUM CHLORIDE ER 20 MEQ TAB.ER PO SCH ×2 (09:28→12:01)
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
--- NOTE | 2017-05-22 11:28 | CT ---
EXAMINATION TYPE: CT brain wo con DATE OF EXAM: 05/22/2017 HISTORY: Follow up scan. CT DLP: 1017.9 mGycm. Automated Exposure Control for Dose Reduction was Utilized. TECHNIQUE: CT scan of the head is performed without contrast. COMPARISON: CT brain from 2 days ago FINDINGS: There is no acute intracranial hemorrhage or midline shift identified. There is diffuse v entricular and sulcal prominence consistent with diffuse age-related cerebral atrophy. There is low- attenuation in the periventricular white matter consistent with chronic small vessel ischemic change. Old infarct right king radiata superior extension near axial image 32 is redemonstrated. There is now visualization of area of low attenuation involving left occipital lobe axial image 29 me asuring roughly 3.5 x 3.0 cm consistent with evolving acute infarct. Craniocaudal length is 4.0 cm sa gittal image 35. There is persistent mucosal thickening in suspicious opacification of right frontal sinus. There is increased patchy opacification bilateral sphenoid sinuses with air-fluid level in the left sphenoid sinus now present. There is prior surgery at level ostiomeatal complex bilaterally. Ne ither lens is well-visualized similar to prior. IMPRESSION: 1. No acute intracranial hemorrhage or midline shift. Evolving acute left occipital lobe infarct note d on current study. 2. There is fairly moderate diffuse age-related cerebral atrophy and chronic small vessel ischemic ch edouard redemonstrated without significant interval change. 3. Worsening acute paranasal sinus disease. Prior sinus surgical changes noted. Results communicated to patient's nurse via telephone at time of dictation.
[2017-05-22 11:44] LABS: Glucose,Whole Blood 257 mg/dL (75-99)
--- NOTE | 2017-05-22 11:59 | US ---
EXAMINATION TYPE: US carotid duplex BILAT DATE OF EXAM: 05/22/2017 COMPARISON: CT brain 05/22/2017 CLINICAL HISTORY: CVA. Patient states she has been forgetful lately EXAM MEASUREMENTS: RIGHT: Peak Systolic Velocity (PSV) cm/sec ----- Right CCA: 89.9 ----- Right ICA: 93.2 ----- Right ECA: 190.7 ICA/CCA ratio: 1.0 RIGHT: End Diastole cm/sec ----- Right CCA: 16.1 ----- Right ICA: 18.3 ----- Right ECA: 0.0 LEFT: Peak Systolic Velocity (PSV) cm/sec ----- Left CCA: 91.0 ----- Left ICA: 110.9 ----- Left ECA: 105.7 ICA/CCA ratio: 1.2 LEFT: End Diastole cm/sec ----- Left CCA: 17.2 ----- Left ICA: 25.4 ----- Left ECA: 0.0 VERTEBRALS (direction of flow): Right Vertebral: Antegrade Left Vertebral: Antegrade Rhythm: Arrhythmia No significant stenosis. Bilateral wall thickening. Plaque seen in right bulb and proximal right IC A. Elevated right ECA. IMPRESSION: No hemodynamic significant stenosis of the proximal internal carotid arteries bilaterall y, an indirect measurement of carotid stenosis. Incidental arrhythmia.
[2017-05-22] MEDS: HEPARIN SOD,PORK IN 0.45% NACL 25,000 UNIT in 0.45% NACL 1 500ML.BAG IV SCH (13:11)
--- NOTE | 2017-05-22 14:15 | P.PN ---
Subjective 72-year-old female came in with altered mental status speech abnormality patient is found to have, CT of the head did show eval being left occipital stroke. Patient is orthopedic and INR And is being continued patient has a mitral replacement with atrial fibrillation. Patient the was evaluated by PT and OT patient will be evaluated for inpatient habitation as well patient will need speech rehabilitation. Constitutional: Denied any fatigue denied any fever. Cardio vascular: denied any chest pain, palpitations Gastrointestinal denied any nausea vomiting Pulmonary: Denied any shortness of breath cough Neurologic denied any new focal deficits Objective - Vital Signs Vital signs: Vital Signs Temp 97.5 F L 05/22/17 07:48 Pulse 74 05/22/17 07:48 Resp 17 05/22/17 12:00 BP 176/76 05/22/17 07:48 Pulse Ox 94 L 05/22/17 07:48 Intake & Output 05/21/17 05/22/17 05/22/17 18:59 06:59 18:59 Intake Total 376.041 336.542 232.598 Output Total 800 150 300 Balance -423.959 186.542 -67.402 Weight 80.5 kg 77.5 kg Intake: Intake, IV Titration 286.041 336.542 132.598 Amount Heparin Sod,Pork in 0.45% 286.041 336.542 132.598 NaCl 25,000 unit In 0.45 % NaCl 1 500ml.bag @ 12 UNITS/KG/HR 18.5 mls/hr IV .Q24H [facility] Rx#: [id number] Oral 90 100 Output: Urine 800 150 300 Other: Voiding Method Toilet Toilet Toilet # Voids 1 - Exam PHYSICAL EXAMINATION: GENERAL: The patient is alert and oriented x3, not in any acute distress. Well developed, well nourished. HEENT: Pupils are round and equally reacting to light. EOMI. No scleral icterus. No conjunctival pallor. Normocephalic, atraumatic. No pharyngeal erythema. No thyromegaly. CARDIOVASCULAR: S1 and S2 present. No murmurs, rubs, or gallops. Patient has minimally elevated JVD PULMONARY: Chest is clear to auscultation, no wheezing or crackles. ABDOMEN: Soft, nontender, nondistended, normoactive bowel sounds. No palpable organomegaly. MUSCULOSKELETAL: No joint swelling or deformity. EXTREMITIES: No cyanosis, clubbing, or pedal edema. NEUROLOGICAL: Gross neurological examination did not reveal any focal deficits. SKIN: No rashes. - Labs CBC & Chem 7: 05/22/17 05:50 05/22/17 05:50 Labs: Abnormal Lab Results - Last 24 Hours (Table) 05/21/17 05/21/17 05/21/17 Range/Units 06:15 16:50 20:48 INR (<1.2) APTT (22.0-30.0) sec Potassium (3.5-5.1) mmol/L Glucose (74-99) mg/dL POC Glucose (mg/dL) 280 H 264 H (75-99) mg/dL Hemoglobin A1c 11.4 H (4.0-6.0) % Triglycerides (<150) mg/dL Cholesterol (<200) mg/dL LDL Cholesterol, Calc (0-99) mg/dL HDL Cholesterol (40-60) mg/dL 05/22/17 05/22/17 05/22/17 Range/Units 05:50 05:50 05:52 INR 1.2 H (<1.2) APTT 92.3 H (22.0-30.0) sec Potassium 3.0 L* (3.5-5.1) mmol/L Glucose 119 H (74-99) mg/dL POC Glucose (mg/dL) 111 H (75-99) mg/dL Hemoglobin A1c (4.0-6.0) % Triglycerides 201 H (<150) mg/dL Cholesterol 258 H (<200) mg/dL LDL Cholesterol, Calc 181 H (0-99) mg/dL HDL Cholesterol 37 L (40-60) mg/dL 05/22/17 05/22/17 Range/Units 11:43 12:37 INR (<1.2) APTT 63.3 H (22.0-30.0) sec Potassium (3.5-5.1) mmol/L Glucose (74-99) mg/dL POC Glucose (mg/dL) 257 H (75-99) mg/dL Hemoglobin A1c (4.0-6.0) % Triglycerides (<150) mg/dL Cholesterol (<200) mg/dL LDL Cholesterol, Calc (0-99) mg/dL HDL Cholesterol (40-60) mg/dL Microbiology - Last 24 Hours (Table) 05/20/17 18:20 Blood Culture - Preliminary Blood No Growth after 24 hours Assessment and Plan Plan: -Stroke involving the left occipital area probably embolic: Patient on IV heparin and patient on Coumadin patient does have atrial fibrillation suppurative can INR Confusion and altered mental status: Probably due to TIA -Hypoglycemia and type 2 diabetes mellitus, uncontrolled due to non-compliance with medications. Improved blood sugars now -Mild acute renal failure secondary to renal azotemia from congestive heart failure. -Possible congestive heart failure exacerbation chronic diastolic dysfunction with acute exacerbation. Patient on IV Lasix now. Improved now -Hyperkalemia: Secondary to lisinopril and renal dysfunction from congestive heart failure. -Pseudohyponatremia from hyperglycemia. Improved now -Atrial fibrillation: On controlled heart rate because of not taking medication patient was on Cardizem drip and patient the was evaluated by cardiology patient is on anti-correlation as to resume -Subtherapeutic: Due to above-mentioned reasons patient will be resumed on her Coumadin dose. -Hyperlipidemia -Fibromyalgia -sleep apnea
--- NOTE | 2017-05-22 15:35 | P.CONS ---
History of Present Illness - Chief Complaint Gait disturbance and confusion - History of Present Illness I had the op to see patient for inpatient rehab consultation with regard to recent syncopal episode. [facility] Seen by Dr. Harman for known cardiac disease and mitral valve replacement. Chest x-ray demonstrates cardiomegaly and congestion. Head CT demonstrated moderate age-related and ischemic change and increase in paranasal sinus disease. Carotid Doppler negative. PT reports supervision for bed mobility but minimal assistance for gait 100 feet, hand-held assist. OT reports minimal assistance for upper/lower dressing, bathing, toileting, mobility. Speech therapy reports comprehension impaired especially reading. Previous functional history as elicited from patient: 51-year-old right-handed white female who is lives in one floor home alone. Retired. Describes independent with own cooking, laundry, driving, sitdown shower and gait without device. History of smoking remote past but doesn't smoke or drink currently. Dr. Maranda Amaya? is her doctor. Family history of mother of stroke. Review of Systems Review of systems: ENT: Denies sneezes or discharge. Eyes: Denies discharge or photophobia. Cardiac: Denies chest pain or palpitation. Pulmonary: Denies cough or shortness of breath. Breast: Denies discharge or lumps. Gastrointestinal: Denies nausea, emesis, constipation, diarrhea. Genitourinary: Denies discharge or frequency. Musculoskeletal: Denies muscle or bone aches. Neurologic: Confusion with patient report is improved. Denies weakness. Endocrine: Denies shakes or sweats. Oncology: Denies cancers. Dermatologic: Denies rash, itching, pruritus. ALLERGY/immunology: Denies sneezes, rashes. Past Medical History Past Medical History: Atrial Fibrillation, Atrial Flutter, Asthma, Cancer, Diabetes Mellitus, Hyperlipidemia, Hypertension, Sleep Apnea/CPAP/BIPAP Additional Past Medical History / Comment(s): BREAST CA HAD LT LUMPECTOMY, MIGRAINES History of Any Multi-Drug Resistant Organisms: None Reported Past Surgical History: Breast Surgery, Orthopedic Surgery Additional Past Surgical History / Comment(s): LUMPECTOMY- LEFT BREAST FOR TREATMENT OF CA, D AND C, SINUS HAS A MECHANICAL VALVE, PACEMEKER, BETSY CATARACT SX -LENS IMPLANTS, SX FOR BROKEN RT FEMUR HAS METAL IN PLACE, LT ROTATOR CUFF SX. Mitral valve replacement mechanical, right hip fracture requiring right hip hemiarthroplasty in March 2012 hemiarthroplasty in the 2012 left breast lumpectomy with radiation treatment: Polypectomy spinal cord cyst removal partial hysterectomy Past Anesthesia/Blood Transfusion Reactions: No Reported Reaction Date of Last Stent Placement:: 2004? Type of Cardiac Device: Permanent Pacemaker Device Placement Date:: 2008 Past Psychological History: No Psychological Hx Reported Smoking Status: Former smoker Past Alcohol Use History: Rare Additional Past Alcohol Use History / Comment(s): SMOKED OFF AND ON 1960 LESS THAN A YEAR THEN QUIT Past Drug Use History: None Reported - Past Family History Father Additional Family Medical History / Comment(s): OF BLEEDING ULCER AT AGE 64 mother with colon cancer Mother Family Medical History: Cancer, CVA/TIA Additional Family Medical History / Comment(s): 88 YEARS OLD- HX STROKES, CANCER INTESTINAKL TRACT Medications and Allergies Home Medications Medication Instructions Recorded Confirmed Type Digoxin [Lanoxin] 0.25 mg PO DAILY 11/09/13 05/20/17 History Furosemide [Lasix] 40 mg PO BID 11/09/13 05/20/17 History Pioglitazone [Actos] 15 mg PO DAILY 11/09/13 05/20/17 History Lisinopril [Prinivil] 10 mg PO DAILY 05/20/17 05/20/17 History Pravastatin Sodium [Pravachol] 40 mg PO HS 05/20/17 05/20/17 History Warfarin Sodium 7.5 mg PO FR 05/20/17 05/20/17 History Warfarin [Coumadin] 5 mg PO DAILY 05/20/17 05/20/17 History metFORMIN HCL 1,000 mg PO BID 05/20/17 05/20/17 History Allergies Allergy/AdvReac Type Severity Reaction Status Date / Time ciprofloxacin [From Cipro] Allergy Rash/Hives Verified 06/13/15 11:30 ciprofloxacin HCl Allergy Rash/Hives Verified 06/13/15 11:30 [From Cipro] Quinolones Allergy Unknown Verified 06/13/15 11:30 Physical Exam Vitals: Vital Signs Temp Pulse Resp BP Pulse Ox 05/22/17 12:00 97.8 F 72 18 150/74 95 05/22/17 08:00 18 05/22/17 07:48 97.5 F L 74 18 176/76 94 L 05/22/17 04:00 97 F L 60 16 191/80 96 05/22/17 00:00 97.3 F L 65 16 142/65 97 05/21/17 20:00 97.3 F L 74 16 165/77 98 05/21/17 16:00 98.3 F 73 16 133/62 95 Intake and Output 05/22/17 05/22/17 05/22/17 06:59 14:59 22:59 Intake Total 336.542 332.598 Output Total 150 300 Balance 186.542 32.598 Intake: Intake, IV Titration 336.542 132.598 Amount Heparin Sod,Pork in 0.45% 336.542 132.598 NaCl 25,000 unit In 0.45 % NaCl 1 500ml.bag @ 12 UNITS/KG/HR 18.5 mls/hr IV .Q24H [facility] Rx#: [id number] Oral 200 Output: Urine 150 300 Other: Voiding Method Toilet Toilet # Voids 1 Weight 77.5 kg Skin: Good color, texture, turgor. General: Medium build and comfortable appearance. Head: Normocephalic, atraumatic. Eyes: Symmetric. Pupils equal round. Ears: Symmetric. Hearing within normal limits. Mouth: Clear. Neck: Supple. Carotid without bruit. Cardiac: Regular rate and rhythm. Lungs: Clear anteriorly and posteriorly. Abdomen: Soft active nontender. Extremities: Normal tone. Neurological: Mental status: Alert, cooperative, pleasant. Cranial nerves: Symmetric facial tone and trapezius. Motor: Normal strength and isolation all 4 limbs. Sensation: Intact throughout. DTRs: Symmetric and equal throughout. Mobility: Sits and stands with standby assistance. Patient reports independent in room including bathroom but nurse reports supervision for safety. Results CBC & Chem 7: 05/22/17 05:50 05/22/17 05:50 Labs: Abnormal Lab Results - Last 24 Hours (Table) 05/21/17 05/21/17 05/21/17 Range/Units 06:15 16:50 20:48 INR (<1.2) APTT (22.0-30.0) sec Potassium (3.5-5.1) mmol/L Glucose (74-99) mg/dL POC Glucose (mg/dL) 280 H 264 H (75-99) mg/dL Hemoglobin A1c 11.4 H (4.0-6.0) % Triglycerides (<150) mg/dL Cholesterol (<200) mg/dL LDL Cholesterol, Calc (0-99) mg/dL HDL Cholesterol (40-60) mg/dL 05/22/17 05/22/17 05/22/17 Range/Units 05:50 05:50 05:52 INR 1.2 H (<1.2) APTT 92.3 H (22.0-30.0) sec Potassium 3.0 L* (3.5-5.1) mmol/L Glucose 119 H (74-99) mg/dL POC Glucose (mg/dL) 111 H (75-99) mg/dL Hemoglobin A1c (4.0-6.0) % Triglycerides 201 H (<150) mg/dL Cholesterol 258 H (<200) mg/dL LDL Cholesterol, Calc 181 H (0-99) mg/dL HDL Cholesterol 37 L (40-60) mg/dL 05/22/17 05/22/17 Range/Units 11:43 12:37 INR (<1.2) APTT 63.3 H (22.0-30.0) sec Potassium (3.5-5.1) mmol/L Glucose (74-99) mg/dL POC Glucose (mg/dL) 257 H (75-99) mg/dL Hemoglobin A1c (4.0-6.0) % Triglycerides (<150) mg/dL Cholesterol (<200) mg/dL LDL Cholesterol, Calc (0-99) mg/dL HDL Cholesterol (40-60) mg/dL Microbiology - Last 24 Hours (Table) 05/20/17 18:20 Blood Culture - Preliminary Blood No Growth after 24 hours Chest x-ray: report reviewed (Cardiomegaly and congestion.) CT Scan - head: report reviewed (Follow-up head CT demonstrated moderate age- related and degenerative change. Increasing paranasal sinus disease.) Venous US: report reviewed (Carotid Doppler negative.) Assessment and Plan (1) Confusion Current Visit: Yes Status: Acute Code(s): R41.0 - DISORIENTATION, UNSPECIFIED SNOMED Code(s): 946300341 Plan: Impression: 1. Gait disturbance. 2. Syncopal episode. 3. Atrophic/flutter. 4. History of mitral valve replacement. 5. Hypertension. 6. Discontinue. 7. Diabetes. 8. Sleep apnea. 9. Asthma. 10. History of cancer. Comments and plan: At this time PT, OT, SOFTWARE DEVELOPER INTERN ongoing. Safety concerns noted. Note patient lives alone. Does have sister who lives in area though. Currently , would recommend benefit of inpatient rehab. We will discussed with patient.
[2017-05-22] MEDS: LISINOPRIL 10 MG TAB PO SCH (16:30)
[2017-05-22 16:57] LABS: Glucose,Whole Blood 326 mg/dL (75-99)
[2017-05-22] MEDS: WARFARIN 7.5 MG TAB PO SCH (17:11)
--- NOTE | 2017-05-22 19:57 | P.PN ---
Subjective Progress Note Date: 05/22/17 Patient is a pleasant 72-year-old female who is being followed by the neurology service for stroke. Patient has not been feeling well for a few weeks and was becoming more confused. Patient had stopped taking all of her home medications but it is not clear why or when she did so. Patient does have history of atrial fibrillation and is on Coumadin at home. On admission her INR was subtherapeutic at 1.2. Computed tomography scan of the brain was done which showed lacunar infarcts involving the right internal capsule and right frontal lobe along with generalized atrophy. Patient was started on IV heparin and Coumadin was resumed. Patient continues to be somewhat confused. She forgets where she is at times. She does not know what year it is. At the time of my evaluation, she is lying in bed and appears to be in no acute distress. Family is at the bedside. Objective - Vital Signs Vital signs: Vital Signs Temp 98 F 05/22/17 16:00 Pulse 65 05/22/17 16:00 Resp 18 05/22/17 16:00 BP 138/74 05/22/17 16:00 Pulse Ox 94 L 05/22/17 16:00 Intake & Output 05/22/17 05/22/17 05/23/17 06:59 18:59 06:59 Intake Total 336.542 450.598 Output Total 150 600 Balance 186.542 -149.402 Weight 77.5 kg Intake: Intake, IV Titration 336.542 132.598 Amount Heparin Sod,Pork in 0.45% 336.542 132.598 NaCl 25,000 unit In 0.45 % NaCl 1 500ml.bag @ 12 UNITS/KG/HR 18.5 mls/hr IV .Q24H [facility] Rx#: [id number] Oral 318 Output: Urine 150 600 Other: Voiding Method Toilet Toilet # Voids 1 - Exam PHYSICAL EXAM: GENERAL APPEARANCE: Patient is a well-developed, female who appears to be in no acute distress. HEENT: Normocephalic, atraumatic, no facial asymmetry is seen. Neck is supple with no masses felt. CARDIOVASCULAR: Regular rate and rhythm. ABDOMEN: Nontender, nondistended. EXTREMITIES: Show no edema or clubbing. NEUROLOGICAL EXAM: Patient is awake, alert, and oriented 2. Patient states the year is 1996. Speech and language are normal. Strength is 5-/5 in bilateral lower extremities and 5-/5 in bilateral upper extremities. Sensory exam is normal to light touch in all 4 extremities. Patient has a right visual field cut and a right gaze palsy. No tremors or seizure-like activity noted. - Labs CBC & Chem 7: 05/22/17 05:50 05/22/17 05:50 Labs: Abnormal Lab Results - Last 24 Hours (Table) 05/21/17 05/21/17 05/22/17 Range/Units 06:15 20:48 05:50 INR 1.2 H (<1.2) APTT 92.3 H (22.0-30.0) sec Potassium (3.5-5.1) mmol/L Glucose (74-99) mg/dL POC Glucose (mg/dL) 264 H (75-99) mg/dL Hemoglobin A1c 11.4 H (4.0-6.0) % Triglycerides (<150) mg/dL Cholesterol (<200) mg/dL LDL Cholesterol, Calc (0-99) mg/dL HDL Cholesterol (40-60) mg/dL 05/22/17 05/22/17 05/22/17 Range/Units 05:50 05:52 11:43 INR (<1.2) APTT (22.0-30.0) sec Potassium 3.0 L* (3.5-5.1) mmol/L Glucose 119 H (74-99) mg/dL POC Glucose (mg/dL) 111 H 257 H (75-99) mg/dL Hemoglobin A1c (4.0-6.0) % Triglycerides 201 H (<150) mg/dL Cholesterol 258 H (<200) mg/dL LDL Cholesterol, Calc 181 H (0-99) mg/dL HDL Cholesterol 37 L (40-60) mg/dL 05/22/17 05/22/17 Range/Units 12:37 16:55 INR (<1.2) APTT 63.3 H (22.0-30.0) sec Potassium (3.5-5.1) mmol/L Glucose (74-99) mg/dL POC Glucose (mg/dL) 326 H (75-99) mg/dL Hemoglobin A1c (4.0-6.0) % Triglycerides (<150) mg/dL Cholesterol (<200) mg/dL LDL Cholesterol, Calc (0-99) mg/dL HDL Cholesterol (40-60) mg/dL Microbiology - Last 24 Hours (Table) 05/20/17 18:20 Blood Culture - Preliminary Blood No Growth after 24 hours Assessment and Plan Plan: Impression: 1. Acute ischemic stroke 2. Right visual field cut 3. Altered mental status, improving 4. Acute metabolic encephalopathy 5. Coagulopathy Recommendation: Patient does appear to have suffered an acute ischemic stroke involving the right occipital lobe and she does have a right visual field cut on neurological exam. Computed tomography scan of the brain showed multiple lacunar infarcts but they did not appear to be acute. Patient has a pacemaker and is unable to have an MRI. Repeat computed tomography scan of the brain showed evolving acute left occipital lobe infarct. CT also showed age-related cerebral atrophy and chronic small vessel ischemic changes. Carotid Doppler was with no hemodynamically significant stenosis. Fasting lipid panel was elevated and I recommend to continue statin therapy. Serum homocystine level was within normal limits. EEG was done and results are pending. I recommend PT OT to evaluate and treat. Continue neurological checks. Continue to maintain Coumadin with therapeutic INRs. I will continue to follow with you. Further recommendations to follow. I performed an examination of the patient and discussed the management with the NAPHTHALENE OPERATOR HELPER. I have reviewed the NAPHTHALENE OPERATOR HELPER notes and agree with the findings and plan of care.
--- NOTE | 2017-05-22 20:23 | EEG ---
ELECTROENCEPHALOGRAM REPORT DATE OF SERVICE: 05/22/2017 REASON FOR TESTING: Stroke and altered mental status. DESCRIPTION OF THE PROCEDURE: This EEG was performed using a 21-channel digital electroencephalograph, following international 10-20 system. DESCRIPTION OF THE RECORDING: From the beginning of the tracing, and with the patient's eyes closed, the background rhythm was mostly consisting of 8 Hz alpha frequency in the posterior occipital leads. No obvious asymmetry is seen. Occasional movement artifacts and muscle artifacts are seen. Photic stimulation was performed with a minimal driving response seen. No pathological waves were elicited. Hyperventilation was not performed. The patient remains awake throughout the tracing. No epileptiform discharges were seen. Her EKG lead showed a regular rate and rhythm. INTERPRETATION: This awake EEG can be considered within normal limits. There was no asymmetry seen. No epileptiform discharges were noticed. The absence of epileptiform discharges does not rule out the diagnosis of epilepsy; therefore clinical correlation is recommended. MMINEZ / PETERN: [id number] /
[2017-05-22] MEDS: METOPROLOL TARTRATE 50 MG TAB PO SCH (20:37)
[2017-05-22] MEDS: PRAVASTATIN SODIUM 40 MG TAB PO SCH (20:37)
[2017-05-22 20:51] LABS: Glucose,Whole Blood 308 mg/dL (75-99)
[2017-05-23 05:44] LABS: Glucose,Whole Blood 172 mg/dL (75-99)
[2017-05-23 05:57] LABS: HGB 12.2 gm/dL (11.4-16.0); MCH 26.6 pg (25.0-35.0); MCHC 32.2 g/dL (31.0-37.0); MCV 82.8 fL (80.0-100.0); Platelet Count 189 k/uL (150-450); RBC 4.59 m/uL (3.80-5.40)
[2017-05-23 06:04] LABS: INR 1.4 (<1.2); Prothrombin Time 13.1 sec (9.0-12.0)
[2017-05-23 06:31] LABS: Anion Gap 7 mmol/L; Blood Urea Nitrogen 12 mg/dL (7-17); Calcium 8.8 mg/dL (8.4-10.2); Carbon Dioxide 28 mmol/L (22-30); Chloride 104 mmol/L (98-107); Glucose 172 mg/dL (74-99); Magnesium 1.8 mg/dL (1.6-2.3); Potassium 3.4 mmol/L (3.5-5.1); Sodium 139 mmol/L (137-145)
[2017-05-23] MEDS: PANTOPRAZOLE 40 MG TABLET PO SCH (06:31)
[2017-05-23] MEDS: INSULIN ASPART 100 UNIT/ML 1 ML 10 ML VIAL SQ SCH ×4 (06:31→21:14)
[2017-05-23] MEDS: FUROSEMIDE 40 MG TAB PO SCH ×2 (06:31→16:46)
[2017-05-23] MEDS: POTASSIUM CHLORIDE ER 20 MEQ TAB.ER PO SCH ×2 (07:37→09:32)
[2017-05-23] MEDS: HYDROcodone/APAP 5-325MG 1 EACH TAB PO PRN (07:45)
[2017-05-23] MEDS: PIOGLITAZONE 15 MG TAB PO SCH (07:46)
[2017-05-23] MEDS: LISINOPRIL 10 MG TAB PO SCH (07:46)
[2017-05-23] MEDS: METOPROLOL TARTRATE 50 MG TAB PO SCH ×2 (07:46→20:04)
[2017-05-23] MEDS: DIGOXIN 250 MCG TAB PO SCH (07:46)
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
[2017-05-23 11:42] LABS: Glucose,Whole Blood 310 mg/dL (75-99)
--- NOTE | 2017-05-23 13:32 | P.DS ---
Providers Date of admission: 05/20/17 21:23 Attending physician: Kyle Logan Consults: 05/20/17 21:24 Consult Physician Routine Consulting Provider: Kera Gipson Consult Reason/Comments: a-flutter with rvr Do you want consulting provider notified?: Yes 05/21/17 11:26 Consult Physician Urgent Consulting Provider: Walker Jj Consult Reason/Comments: New onset confusion,CT shows old infarct Do you want consulting provider notified?: Yes 05/22/17 12:04 Consult Physician Routine Consulting Provider: Fidencio Rico Consult Reason/Comments: eval for inpatient rehab Do you want consulting provider notified?: Yes Primary care physician: Stated None Hospital Course: 72-year-old female came in with altered mental status speech abnormality patient is found to have, CT of the head did show eval being left occipital stroke. Patient is orthopedic and INR And is being continued patient has a mitral replacement with atrial fibrillation. Patient the was evaluated by PT and OT patient will be evaluated for inpatient habitation as well patient will need speech rehabilitation. Patient will be discharged today to either subacute rehabilitation or inpatient rehabilitation and patient will be on bridging Lovenox along with some 7.5 mg of Coumadin and Lovenox can be discontinued once her Coumadin levels are about 2.5 the therapeutic range in her condition is 2.5-3.5. Patient has a mechanical valve and atrial fibrillation her memory improved significantly since her admission. PHYSICAL EXAMINATION: GENERAL: The patient is alert and oriented x3, not in any acute distress. Well developed, well nourished. HEENT: Pupils are round and equally reacting to light. EOMI. No scleral icterus. No conjunctival pallor. Normocephalic, atraumatic. No pharyngeal erythema. No thyromegaly. CARDIOVASCULAR: S1 and S2 present. No murmurs, rubs, or gallops. PULMONARY: Chest is clear to auscultation, no wheezing or crackles. ABDOMEN: Soft, nontender, nondistended, normoactive bowel sounds. No palpable organomegaly. MUSCULOSKELETAL: No joint swelling or deformity. EXTREMITIES: No cyanosis, clubbing, or pedal edema. NEUROLOGICAL: Gross neurological examination did not reveal any focal deficits. SKIN: No rashes. Assessment and Plan Plan: -Stroke involving the left occipital area probably embolic: , Altered mental status secondary to stroke. -Hypoglycemia and type 2 diabetes mellitus, uncontrolled due to non-compliance with medications. Improved blood sugars now -Mild acute renal failure secondary to renal azotemia from congestive heart failure. Improved now -Possible congestive heart failure exacerbation chronic diastolic dysfunction with acute exacerbation. Patient was switched to oral Lasix -Hyperkalemia: Secondary to lisinopril and renal dysfunction from congestive heart failure. Improved now will be resumed on lisinopril -Pseudohyponatremia from hyperglycemia. Improved now -Atrial fibrillation: Patient was started on beta annette which will be continued -Subtherapeutic INR -Hyperlipidemia -Fibromyalgia -sleep apnea Patient Condition at Discharge: Fair Plan - Discharge Summary New Discharge Prescriptions: New Metoprolol Tartrate [Lopressor] 50 mg PO BID tab Warfarin [Coumadin] 7.5 mg PO DAILY@1800 tab Enoxaparin [Lovenox] 75 mg SQ Q12H #10 syringe Continue Furosemide [Lasix] 40 mg PO BID Digoxin [Lanoxin] 0.25 mg PO DAILY Pioglitazone [Actos] 15 mg PO DAILY metFORMIN HCL 1,000 mg PO BID Pravastatin Sodium [Pravachol] 40 mg PO HS Changed Lisinopril [Prinivil] 20 mg PO DAILY #0 Discontinued Warfarin [Coumadin] 5 mg PO DAILY Warfarin Sodium 7.5 mg PO FR Discharge Medication List Digoxin [Lanoxin] 0.25 mg PO DAILY 11/09/13 [History] Furosemide [Lasix] 40 mg PO BID 11/09/13 [History] Pioglitazone [Actos] 15 mg PO DAILY 11/09/13 [History] Pravastatin Sodium [Pravachol] 40 mg PO HS 05/20/17 [History] metFORMIN HCL 1,000 mg PO BID 05/20/17 [History] Enoxaparin [Lovenox] 75 mg SQ Q12H #10 syringe 05/23/17 [Rx] Lisinopril [Prinivil] 20 mg PO DAILY #0 05/23/17 [Rx] Metoprolol Tartrate [Lopressor] 50 mg PO BID tab 05/23/17 [Rx] Warfarin [Coumadin] 7.5 mg PO DAILY@1800 tab 05/23/17 [Rx] Follow up Appointment(s)/Referral(s): Randy Quintero MD [STAFF PHYSICIAN] - 1 Week None,Stated [Primary Care Provider] - 1-2 days Patient Instructions/Handouts: Warfarin (By mouth), Diabetic Ketoacidosis (DC) , Basic Carbohydrate Counting (DC) Discharge Disposition: TRANSFER TO SNF/ECF
[2017-05-23 15:02] VITALS: BMI 29.3
--- NOTE | 2017-05-23 15:38 | P.PN ---
Subjective Progress Note Date: 05/23/17 Patient is a pleasant 72-year-old female who is being followed by the neurology service for stroke. Patient has not been feeling well for a few weeks and was becoming more confused. Patient had stopped taking all of her home medications but it is not clear why or when she did so. Patient does have history of atrial fibrillation and is on Coumadin at home. On admission her INR was subtherapeutic at 1.2. Computed tomography scan of the brain was done which showed lacunar infarcts involving the right internal capsule and right frontal lobe along with generalized atrophy. Patient was started on IV heparin and Coumadin was resumed. Patient continues to be somewhat confused. She forgets where she is at times. She does not know what year it is. At the time of my evaluation, she is lying in bed and appears to be in no acute distress. Family is at the bedside. 05/23/2017 Patient is a pleasant 72-year-old female who is being followed by the neurology service for stroke. Patient states she feels more back to baseline today however she remains confused as to where she is. She is working with speech therapy for cognitive function. Repeat computed tomography scan did show evolving acute left occipital lobe infarct. Continue anticoagulation. INR was 1.4 today. She continues on a heparin drip until therapeutic INR is reached. EEG was normal. At the time of my evaluation, patient is sitting up in bed working with speech therapy and appears to be in no acute distress. Objective - Vital Signs Vital signs: Vital Signs Temp 96.9 F L 05/23/17 08:00 Pulse 65 05/23/17 08:00 Resp 17 05/23/17 08:00 BP 180/72 05/23/17 08:00 Pulse Ox 100 05/23/17 08:00 Intake & Output 05/22/17 05/23/17 05/23/17 18:59 06:59 18:59 Intake Total 450.598 343.352 480 Output Total 600 1000 Balance -149.402 -656.648 480 Weight 77.5 kg 77.5 kg Intake: Intake, IV Titration 132.598 343.352 Amount Heparin Sod,Pork in 0.45% 132.598 343.352 NaCl 25,000 unit In 0.45 % NaCl 1 500ml.bag @ 12 UNITS/KG/HR 18.5 mls/hr IV .Q24H JM Rx#: [id number] Oral 318 480 Output: Urine 600 1000 Other: Voiding Method Toilet Toilet Toilet # Voids 1 - Exam PHYSICAL EXAM: GENERAL APPEARANCE: Patient is a well-developed, female who appears to be in no acute distress. HEENT: Normocephalic, atraumatic, no facial asymmetry is seen. Neck is supple with no masses felt. CARDIOVASCULAR: Regular rate and rhythm. ABDOMEN: Nontender, nondistended. EXTREMITIES: Show no edema or clubbing. NEUROLOGICAL EXAM: Patient is awake, alert, and oriented 2. Patient does not know where she is.. Speech and language are normal. Strength is 5-/5 in bilateral lower extremities and 5-/5 in bilateral upper extremities. Sensory exam is normal to light touch in all 4 extremities. Patient has a right visual field cut and a right gaze palsy. No tremors or seizure-like activity noted. - Labs CBC & Chem 7: 05/23/17 05:28 05/23/17 05:28 Labs: Abnormal Lab Results - Last 24 Hours (Table) 05/22/17 05/22/17 05/23/17 Range/Units 16:55 20:50 05:28 PT 13.1 H (9.0-12.0) sec INR 1.4 H (<1.2) APTT 69.0 H (22.0-30.0) sec Potassium (3.5-5.1) mmol/L Glucose (74-99) mg/dL POC Glucose (mg/dL) 326 H 308 H (75-99) mg/dL 05/23/17 05/23/17 05/23/17 Range/Units 05:28 05:42 11:40 PT (9.0-12.0) sec INR (<1.2) APTT (22.0-30.0) sec Potassium 3.4 L (3.5-5.1) mmol/L Glucose 172 H (74-99) mg/dL POC Glucose (mg/dL) 172 H 310 H (75-99) mg/dL Microbiology - Last 24 Hours (Table) 05/20/17 18:20 Blood Culture - Preliminary Blood No Growth after 48 hours Assessment and Plan Plan: Impression: 1. Acute ischemic stroke 2. Right visual field cut 3. Altered mental status, improving 4. Acute metabolic encephalopathy 5. Coagulopathy Recommendation: Patient does have an acute ischemic stroke involving the left occipital lobe as per repeat computed tomography scan of the brain. Patient has a pacemaker and is unable to have an MRI. CT also showed age-related cerebral atrophy and chronic small vessel ischemic changes. Carotid Doppler was with no hemodynamically significant stenosis. Fasting lipid panel was elevated and I recommend to continue statin therapy. Serum homocystine level was within normal limits. EEG was normal. I recommend continuing PT /OT/ speech. Patient is stable from neurological standpoint for transfer to inpatient rehab once INR is therapeutic. Continue neurological checks. I will continue to follow with you. Further recommendations to follow. I performed an examination of the patient and discussed the management with the NEWS CLERK. I have reviewed the NEWS CLERK notes and agree with the findings and plan of care.
[2017-05-23 15:59] VITALS: RESP 18
[2017-05-23 16:48] LABS: Glucose,Whole Blood 287 mg/dL (75-99)
[2017-05-23] MEDS: WARFARIN 7.5 MG TAB PO SCH (17:08)
[2017-05-23] MEDS ORDERED: WARFARIN 7.5 MG TAB PO ONE (18:00)
[2017-05-23] MEDS: HEPARIN SOD,PORK IN 0.45% NACL 25,000 UNIT in 0.45% NACL 1 500ML.BAG IV SCH (18:57)
[2017-05-23] MEDS: PRAVASTATIN SODIUM 40 MG TAB PO SCH (20:04)
[2017-05-23 20:57] LABS: Glucose,Whole Blood 267 mg/dL (75-99)
[2017-05-24 05:57] LABS: Glucose,Whole Blood 190 mg/dL (75-99)
[2017-05-24] MEDS: PANTOPRAZOLE 40 MG TABLET PO SCH (06:39)
[2017-05-24] MEDS: INSULIN ASPART 100 UNIT/ML 1 ML 10 ML VIAL SQ SCH ×2 (06:39→12:21)
[2017-05-24] MEDS: FUROSEMIDE 40 MG TAB PO SCH (06:39)
[2017-05-24 06:44] LABS: INR 1.6 (<1.2); Partial Thromboplastin Time 66.2 sec (22.0-30.0); Prothrombin Time 14.8 sec (9.0-12.0)
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
[2017-05-24] MEDS: METOPROLOL TARTRATE 50 MG TAB PO SCH (08:26)
[2017-05-24] MEDS: PIOGLITAZONE 15 MG TAB PO SCH (08:26)
[2017-05-24] MEDS: LISINOPRIL 10 MG TAB PO SCH (08:26)
[2017-05-24] MEDS: DIGOXIN 250 MCG TAB PO SCH (08:26)
[2017-05-24 12:08] LABS: Glucose,Whole Blood 285 mg/dL (75-99)
--- NOTE | 2017-05-24 12:15 | P.DS ---
Providers Date of admission: 05/20/17 21:23 Attending physician: Kyle Logan Consults: 05/20/17 21:24 Consult Physician Routine Consulting Provider: Kera Gipson Consult Reason/Comments: a-flutter with rvr Do you want consulting provider notified?: Yes 05/21/17 11:26 Consult Physician Urgent Consulting Provider: Walker Jj Consult Reason/Comments: New onset confusion,CT shows old infarct Do you want consulting provider notified?: Yes 05/22/17 12:04 Consult Physician Routine Consulting Provider: Fidencio Rico Consult Reason/Comments: eval for inpatient rehab Do you want consulting provider notified?: Yes Primary care physician: Stated None Hospital Course: Please refer to my discharge summary from yesterday Patient Condition at Discharge: Fair Plan - Discharge Summary New Discharge Prescriptions: New Metoprolol Tartrate [Lopressor] 50 mg PO BID tab Warfarin [Coumadin] 7.5 mg PO DAILY@1800 tab Enoxaparin [Lovenox] 75 mg SQ Q12H #10 syringe Continue Furosemide [Lasix] 40 mg PO BID Digoxin [Lanoxin] 0.25 mg PO DAILY Pioglitazone [Actos] 15 mg PO DAILY metFORMIN HCL 1,000 mg PO BID Pravastatin Sodium [Pravachol] 40 mg PO HS Changed Lisinopril [Prinivil] 20 mg PO DAILY #0 Discontinued Warfarin [Coumadin] 5 mg PO DAILY Warfarin Sodium 7.5 mg PO FR Discharge Medication List Digoxin [Lanoxin] 0.25 mg PO DAILY 11/09/13 [History] Furosemide [Lasix] 40 mg PO BID 11/09/13 [History] Pioglitazone [Actos] 15 mg PO DAILY 11/09/13 [History] Pravastatin Sodium [Pravachol] 40 mg PO HS 05/20/17 [History] metFORMIN HCL 1,000 mg PO BID 05/20/17 [History] Enoxaparin [Lovenox] 75 mg SQ Q12H #10 syringe 05/23/17 [Rx] Lisinopril [Prinivil] 20 mg PO DAILY #0 05/23/17 [Rx] Metoprolol Tartrate [Lopressor] 50 mg PO BID tab 05/23/17 [Rx] Warfarin [Coumadin] 7.5 mg PO DAILY@1800 tab 05/23/17 [Rx] Follow up Appointment(s)/Referral(s): Randy Quintero MD [STAFF PHYSICIAN] - 1 Week None,Stated [Primary Care Provider] - 1-2 days Patient Instructions/Handouts: Warfarin (By mouth), Diabetic Ketoacidosis (DC) , Basic Carbohydrate Counting (DC) Discharge Disposition: TRANSFER TO SNF/ECF
[2017-05-24 14:01] VITALS: BP 125/56; PULSE 68; TEMP 97
[2017-05-24] MEDS ORDERED: WARFARIN 7.5 MG TAB PO SCH (18:00)
--- NOTE | 2017-05-28 07:58 | CDI ---
Last Revision, January 2017 Documentation Clarification Form Date: 05/28/17 From: [place] Stan Camryn Marroquin, Supervisor [employer] between 8:30 am & 5 pm Maggy Admit Date: 05/20/2017 9:23:00 PM Patient Name: Ariane Eric Visit Number: [id number] Discharge Date: 05/1317 ATTENTION: The Clinical Documentation Specialists (CDI) and [facility] Coding Staff appreciate your assistance in clarifying documentation. Please respond to the clarification below the line at the bottom and electronically sign. The CDI & [facility] Coding staff will review the response and follow-up if needed. Please note: Queries are made part of the Legal Health Record. If you have any questions, please contact the author of this message via ITS. Dr. Tristian Harman Atrial Flutter with a heart rate of 120 is documented in the ED record, H&P, consult & PNs. History/Risk factors:chronic a fib/flutter EKG/telemetry: Atrial flutter with variable AV block; Atrial flutter with 4:1 AV conduction Treatment: Heparin switched to Coumadin In your professional opinion, in order to capture the severity of condition; can you please clarify the type of atrial flutter if known? Typical/Type I Atypical/Type II Other, please specify Unable to determine Please continue to document in your progress notes and discharge summary in order to capture severity of illness and risk of mortality. Include clinical findings that support your diagnosis. Paroxysmal MTDD
--- NOTE | 2017-05-28 10:16 | CDI ---
Last Revision, January 2017 Documentation Clarification Form Date: 05/28/17 From: [place] Stan Camryn Marroquin, Tax Analyst between 8:30 am & 5 pm Maggy Admit Date: 05/20/2017 9:23:00 PM Patient Name: Ariane Eric Visit Number: [id number] Discharge Date: 05/24/17 ATTENTION: The Clinical Documentation Specialists (CDI) and [facility] Coding Staff appreciate your assistance in clarifying documentation. Please respond to the clarification below the line at the bottom and electronically sign. The CDI & [facility] Coding staff will review the response and follow-up if needed. Please note: Queries are made part of the Legal Health Record. If you have any questions, please contact the author of this message via ITS. Dr. Roger Lin The patient presented with altered mentatl status and right visual field cut was diagnosed with a stroke involving the left occipital area probably embolic. She has Type II uncontrolled DM, atrial fibrillation/flutter, Acute/chronc diastolic CHF & hyperlipidemia. Per ICD-10, the coidng of CVA requires additional documentation of total NISS score to fully explain the patient's condition. In your professional opinion, can you please clarify NIHSS score? Total NIHSS score Other, please specify Unable to determine Please continue to document in your progress notes and discharge summary in order to capture severity of illness and risk of mortality. Include clinical findings that support your diagnosis. MTDD
--- NOTE | 2017-06-06 15:35 | CDI ---
Last Revision, January 2017 Documentation Clarification Form Date: 06/06/17 From: [place] Stan Camryn Marroquin, Paratransit Driver between 8:30 am & 5 pm Maggy Admit Date: 05/20/2017 9:23:00 PM Patient Name: Ariane Eric Visit Number: [id number] Discharge Date: 05/24/17 ATTENTION: The Clinical Documentation Specialists (CDI) and [facility] Coding Staff appreciate your assistance in clarifying documentation. Please respond to the clarification below the line at the bottom and electronically sign. The CDI & [facility] Coding staff will review the response and follow-up if needed. Please note: Queries are made part of the Legal Health Record. If you have any questions, please contact the author of this message via ITS. Dr. Roger Lin The patient presented with altered mentatl status and right visual field cut was diagnosed with a stroke involving the left occipital area probably embolic. She has Type II uncontrolled DM, atrial fibrillation/flutter, Acute/chronc diastolic CHF & hyperlipidemia. Per ICD-10, the coidng of CVA requires additional documentation of total NISS score to fully explain the patient's condition. In your professional opinion, can you please clarify NIHSS score? Total NIHSS score Other, please specify Unable to determine Please continue to document in your progress notes and discharge summary in order to capture severity of illness and risk of mortality. Include clinical findings that support your diagnosis. MTDD
--- NOTE | 2017-06-18 16:36 | CDI ---
Last Revision, January 2017 Documentation Clarification Form Date: 06/18/17 From: [place] Stan Camryn Marroquin, Circular Knitter Helper Hours-8:30 am & 5 pm Maggy Admit Date: 05/20/2017 9:23:00 PM Patient Name: Ariane Eric Visit Number: [id number] Discharge Date: 05/24/17 ATTENTION: The Clinical Documentation Specialists (CDI) and [facility] Coding Staff appreciate your assistance in clarifying documentation. Please respond to the clarification below the line at the bottom and electronically sign. The CDI & [facility] Coding staff will review the response and follow-up if needed. Please note: Queries are made part of the Legal Health Record. If you have any questions, please contact the author of this message via ITS. Dr. Roger Lin The patient presented with altered mental status and right visual field cut was diagnosed with a stroke involving the left occipital area probably embolic. She has Type II uncontrolled DM, atrial fibrillation/flutter, Acute/chronic diastolic CHF & hyperlipidemia. Please see the Nursing Neurological Assessment History. Per ICD-10, the coding of CVA requires additional documentation of total NISS score to fully explain the patient's condition. In your professional opinion, can you please clarify NIHSS score? Total NIHSS score 1____ Other, please specify Unable to determine Please continue to document in your progress notes and discharge summary in order to capture severity of illness and risk of mortality. Include clinical findings that support your diagnosis. MTDD
== END 2017-05-24 15:14 | DRG 64 ==
LOC: EC 17:49 → 6SEL 21:23
PROVIDERS: ADMIT Hospitalist; ATTEND Hospitalist
DX: I63.40 Cerebral infarction due to embolism of unspecified cerebral artery (principal); G93.41 Metabolic encephalopathy; I50.33 Acute on chronic diastolic (congestive) heart failure; N17.9 Acute kidney failure, unspecified; D68.9 Coagulation defect, unspecified; I48.92 Unspecified atrial flutter; E11.65 Type 2 diabetes mellitus with hyperglycemia; E87.5 Hyperkalemia; I48.2 Chronic atrial fibrillation; G43.909 Migraine, unspecified, not intractable, without status migrainosus; E78.5 Hyperlipidemia, unspecified; I11.0 Hypertensive heart disease with heart failure; J45.909 Unspecified asthma, uncomplicated; G47.33 Obstructive sleep apnea (adult) (pediatric); H53.8 Other visual disturbances; R40.2142 Coma scale, eyes open, spontaneous, at arrival to emergency department; R40.2252 Coma scale, best verbal response, oriented, at arrival to emergency department; R40.2362 Coma scale, best motor response, obeys commands, at arrival to emergency department; R29.701 NIHSS score 1; M79.7 Fibromyalgia; J32.1 Chronic frontal sinusitis; R26.9 Unspecified abnormalities of gait and mobility; T38.3X6A Underdosing of insulin and oral hypoglycemic [antidiabetic] drugs, initial encounter; T45.516A Underdosing of anticoagulants, initial encounter; T50.1X6A Underdosing of loop [high-ceiling] diuretics, initial encounter; T46.4X5A Adverse effect of angiotensin-converting-enzyme inhibitors, initial encounter; Z79.84 Long term (current) use of oral hypoglycemic drugs; Z79.01 Long term (current) use of anticoagulants; Z79.899 Other long term (current) drug therapy; Z87.891 Personal history of nicotine dependence; Z95.0 Presence of cardiac pacemaker; Z90.12 Acquired absence of left breast and nipple; Z96.641 Presence of right artificial hip joint; Z92.3 Personal history of irradiation; Z85.3 Personal history of malignant neoplasm of breast; Z96.1 Presence of intraocular lens; Z95.2 Presence of prosthetic heart valve; Z90.710 Acquired absence of both cervix and uterus; Z87.81 Personal history of (healed) traumatic fracture; Z98.42 Cataract extraction status, left eye; Z98.41 Cataract extraction status, right eye; Z88.1 Allergy status to other antibiotic agents; Z88.8 Allergy status to other drugs, medicaments and biological substances; Z80.0 Family history of malignant neoplasm of digestive organs; Z83.79 Family history of other diseases of the digestive system; Z82.3 Family history of stroke; Z86.73 Personal history of transient ischemic attack (TIA), and cerebral infarction without residual deficits; Y92.009 Unspecified place in unspecified non-institutional (private) residence as the place of occurrence of the external cause
CPT/HCPCS: 36415; 70450; 71046; 80048; 80053; 80061; 80162; 80306; 81001; 82140; 82550; 82553; 83036; 83090; 83735; 83880; 84132; 84484; 85025; 85027; 85610; 85730; 87040; 93005; 93306; 93880; 94760; 95816; 96361; 96365; 96368; 96376; 99291

== ENCOUNTER 2017-09-27 16:54 | Inpatient (IN) | payer MEDICARE ==
--- NOTE | 2017-09-27 17:38 | ED ---
General Adult HPI - General Stated complaint: ALTERED MENTAL STATUS R/O SEPSIS - History of Present Illness Initial comments: Dictation was produced using [employer] dictation software. please excuse any grammatical, word or spelling errors. Chief Complaint: 72-year-old female transferred from shelter for rule out sepsis and altered mental status and hypotension. History of Present Illness: Patient is 72-year-old female transferred from [facility] for rule out sepsis. According to nursing documentation there is concerns of sepsis given accident temperature 100.0. She does also show signs of altered mental status and hypotension. Patient unable to provide history at this time. EMS did not get a full report from shelter prior to transfer. EMS does not know what the extent of the altered mental status was. Chart review shows the patient has history of stroke. She is baseline unresponsive. Unable to obtain ROS at this time secondary to mental status - Related Data Home Medications Medication Instructions Recorded Confirmed Digoxin [Lanoxin] 250 mcg PEG/G-TUBE DAILY@0800 11/09/13 09/27/17 Pravastatin Sodium [Pravachol] 40 mg PEG/G-TUBE HS 05/20/17 09/27/17 Acetaminophen Tab [Tylenol Tab] 650 mg PEG/G-TUBE Q4H PRN 09/27/17 09/27/17 Aspirin EC [Ecotrin Low Dose] 81 mg PEG/G-TUBE DAILY@0800 09/27/17 09/27/17 Bisacodyl 10 mg RECTAL DAILY PRN 09/27/17 09/27/17 Citalopram Hydrobromide [CeleXA] 10 mg PEG/G-TUBE DAILY@0800 09/27/17 09/27/17 Docusate Sodium Liq 10 mg PEG/G-TUBE HS 09/27/17 09/27/17 Ferrous Sulfate Liquid 325 mg PEG/G-TUBE HS 09/27/17 09/27/17 INSULIN LISPRO (humaLOG) [humaLOG] See Protocol SQ ACHS 09/27/17 09/27/17 Insulin Detemir [Levemir] 30 unit SQ BID@0800,199909/27/17 09/27/17 Lansoprazole 30 mg PEG/G-TUBE HS 09/27/17 09/27/17 Metoprolol Tartrate [Lopressor] 75 mg PEG/G-TUBE BID 09/27/17 09/27/17 Warfarin [Coumadin] 2.5 mg PEG/G-TUBE SUMOTUWETH 09/27/17 09/27/17 Warfarin [Coumadin] 10 mg PEG/G-TUBE HS 09/27/17 09/27/17 levETIRAcetam [Keppra Oral 500 mg PEG/G-TUBE BID 09/27/17 09/27/17 Solution] Allergies Allergy/AdvReac Type Severity Reaction Status Date / Time ciprofloxacin [From Cipro] Allergy Rash/Hives Verified 09/27/17 17:17 ciprofloxacin HCl Allergy Rash/Hives Verified 09/27/17 17:17 [From Cipro] Quinolones Allergy Unknown Verified 09/27/17 17:17 Review of Systems ROS Statement: Those systems with pertinent positive or pertinent negative responses have been documented in the HPI. ROS Other: All systems not noted in ROS Statement are negative. Past Medical History Past Medical History: Atrial Fibrillation, Atrial Flutter, Asthma, Cancer, Diabetes Mellitus, Hyperlipidemia, Hypertension, Sleep Apnea/CPAP/BIPAP Additional Past Medical History / Comment(s): BREAST CA HAD LT LUMPECTOMY, MIGRAINES History of Any Multi-Drug Resistant Organisms: None Reported Past Surgical History: Breast Surgery, Orthopedic Surgery Additional Past Surgical History / Comment(s): LUMPECTOMY- LEFT BREAST FOR TREATMENT OF CA, D AND C, SINUS HAS A MECHANICAL VALVE, PACEMEKER, BETSY CATARACT SX -LENS IMPLANTS, SX FOR BROKEN RT FEMUR HAS METAL IN PLACE, LT ROTATOR CUFF SX. Mitral valve replacement mechanical, right hip fracture requiring right hip hemiarthroplasty in March 2012 hemiarthroplasty in the 2012 left breast lumpectomy with radiation treatment: Polypectomy spinal cord cyst removal partial hysterectomy Past Anesthesia/Blood Transfusion Reactions: No Reported Reaction Date of Last Stent Placement:: 2004? Type of Cardiac Device: Permanent Pacemaker Device Placement Date:: 2008 Past Psychological History: No Psychological Hx Reported Smoking Status: Former smoker Past Alcohol Use History: Rare Additional Past Alcohol Use History / Comment(s): SMOKED OFF AND ON 1960 LESS THAN A YEAR THEN QUIT Past Drug Use History: None Reported - Past Family History Father Additional Family Medical History / Comment(s): OF BLEEDING ULCER AT AGE 64 mother with colon cancer Mother Family Medical History: Cancer, CVA/TIA Additional Family Medical History / Comment(s): 88 YEARS OLD- HX STROKES, CANCER INTESTINAKL TRACT General Exam - General Exam Comments Initial Comments: PHYSICAL EXAM: General Impression: Obtunded, lethargic HEENT: Normocephalic atraumatic, extra-ocular movements intact, pupils equal and reactive to light bilaterally, mucous membranes moist. Cardiovascular: Heart regular rate and rhythm, S1&S2 audible, no murmurs, rubs or gallops Chest: Diminished breath sounds bilaterally Abdomen: Bowel sounds present, abdomen soft, non-tender, non-distended, no organomegaly Musculoskeletal: Pulses present and equal in all extremities, no peripheral edema Motor: Moves all shows grossly Neurological: Moves all extremities grossly, response to painful stimuli of all extremities Skin: Intact with no visualized rashes Course Vital Signs 09/27/17 09/27/17 09/27/17 17:00 18:00 19:38 Temperature 98.7 F 98.6 F Pulse Rate 67 74 75 Respiratory 16 18 18 Rate Blood Pressure 237/107 212/120 205/122 O2 Sat by Pulse 100 98 98 Oximetry 09/27/17 21:14 Temperature Pulse Rate 81 Respiratory 16 Rate Blood Pressure 193/89 O2 Sat by Pulse 98 Oximetry Medical Decision Making - Medical Decision Making ED course: 71-year-old female with multiple comorbidities presents via EMS from shelter for rule out sepsis. Vital signs upon arrival shows blood pressure of 237/107, rest of vital signs within acceptable limits. Patient is baseline unresponsive. Sounds are mildly crackly. Laboratory evaluation obtained. Leukocytosis of 16.7. Rest of CBC is grossly unremarkable. INR is 5.9. INR held. Metabolic panel obtained. Renal markers are within acceptable limits. Lactic acidosis of 2.2. Mild pump and troponin likely secondary to strain. Chest x-ray obtained showing findings consistent with pulmonary edema. Brain CT shows no acute processes. Clinical presentation consistent with hypertensive emergency secondary to acute CHF exacerbation. Patient has history of valve. Daughter at bedside reports that patient is mentating at baseline. No concerns of other processes going on at this point. Patient admitted to intensive care unit at this time given requirement for nitroglycerin drip for hypertension reduction. Cardiology is on consult. Discussed patient care with tugboat pilot. EKG interpretation: Ventricular rate 80, sinus rhythm with first-degree AV block. Interval 416, QRS 86, QTC 394. No TN prolongation, no QTC prolongation, no ST or T-wave changes noted. Overall, this EKG is unremarkable - Lab Data Result diagrams: 09/27/17 19:00 09/27/17 19:00 Lab Results 09/27/17 09/27/17 09/27/17 Range/Units 19:00 19:00 19:00 WBC 16.7 H (3.8-10.6) k/uL RBC 4.24 (3.80-5.40) m/uL Hgb 10.7 L (11.4-16.0) gm/dL Hct 33.7 L (34.0-46.0) % MCV 79.7 L (80.0-100.0) fL MCH 25.2 (25.0-35.0) pg MCHC 31.6 (31.0-37.0) g/dL RDW 17.2 H (11.5-15.5) % Plt Count 354 (150-450) k/uL Neutrophils % 78 % Lymphocytes % 11 % Monocytes % 5 % Eosinophils % 6 % Basophils % 0 % Neutrophils # 13.0 H (1.3-7.7) k/uL Lymphocytes # 1.9 (1.0-4.8) k/uL Monocytes # 0.8 (0-1.0) k/uL Eosinophils # 0.9 H (0-0.7) k/uL Basophils # 0.0 (0-0.2) k/uL Hypochromasia Moderate Anisocytosis Slight Microcytosis Slight PT (9.0-12.0) sec INR (<1.2) APTT (22.0-30.0) sec Sodium 137 (137-145) mmol/L Potassium 5.0 (3.5-5.1) mmol/L Chloride 100 (98-107) mmol/L Carbon Dioxide 29 (22-30) mmol/L Anion Gap 8 mmol/L BUN 23 H (7-17) mg/dL Creatinine 0.50 L (0.52-1.04) mg/dL Est GFR (CKD-EPI)AfAm >90 (>60 ml/min/1.73 sqM) Est GFR (CKD-EPI)NonAf >90 (>60 ml/min/1.73 sqM) Glucose 118 H (74-99) mg/dL Plasma Lactic Acid Buddy 2.2 H* (0.7-2.0) mmol/L Calcium 10.1 (8.4-10.2) mg/dL Total Bilirubin 0.8 (0.2-1.3) mg/dL AST 25 (14-36) U/L ALT 31 (9-52) U/L Alkaline Phosphatase 122 (38-126) U/L Total Creatine Kinase (30-135) U/L CK-MB (CK-2) (0.0-2.4) ng/mL CK-MB (CK-2) Rel Index Troponin I (0.000-0.034) ng/mL Total Protein 7.1 (6.3-8.2) g/dL Albumin 3.5 (3.5-5.0) g/dL 09/27/17 09/27/17 Range/Units 19:00 19:00 WBC (3.8-10.6) k/uL RBC (3.80-5.40) m/uL Hgb (11.4-16.0) gm/dL Hct (34.0-46.0) % MCV (80.0-100.0) fL MCH (25.0-35.0) pg MCHC (31.0-37.0) g/dL RDW (11.5-15.5) % Plt Count (150-450) k/uL Neutrophils % % Lymphocytes % % Monocytes % % Eosinophils % % Basophils % % Neutrophils # (1.3-7.7) k/uL Lymphocytes # (1.0-4.8) k/uL Monocytes # (0-1.0) k/uL Eosinophils # (0-0.7) k/uL Basophils # (0-0.2) k/uL Hypochromasia Anisocytosis Microcytosis PT 53.3 H (9.0-12.0) sec INR 5.9 H* (<1.2) APTT 41.7 H (22.0-30.0) sec Sodium (137-145) mmol/L Potassium (3.5-5.1) mmol/L Chloride (98-107) mmol/L Carbon Dioxide (22-30) mmol/L Anion Gap mmol/L BUN (7-17) mg/dL Creatinine (0.52-1.04) mg/dL Est GFR (CKD-EPI)AfAm (>60 ml/min/1.73 sqM) Est GFR (CKD-EPI)NonAf (>60 ml/min/1.73 sqM) Glucose (74-99) mg/dL Plasma Lactic Acid Buddy (0.7-2.0) mmol/L Calcium (8.4-10.2) mg/dL Total Bilirubin (0.2-1.3) mg/dL AST (14-36) U/L ALT (9-52) U/L Alkaline Phosphatase (38-126) U/L Total Creatine Kinase 49 (30-135) U/L CK-MB (CK-2) 1.4 (0.0-2.4) ng/mL CK-MB (CK-2) Rel Index 2.9 Troponin I 0.058 H* (0.000-0.034) ng/mL Total Protein (6.3-8.2) g/dL Albumin (3.5-5.0) g/dL Disposition Clinical Impression: Hypertensive emergency Disposition: ADMITTED IP TO THIS HOSP Condition: Critical Referrals: Nicko Seo MD [Primary Care Provider] - 1-2 days Decision Time: 21:35
--- NOTE | 2017-09-27 18:35 | CT ---
EXAMINATION TYPE: CT brain wo con DATE OF EXAM: 09/27/2017 COMPARISON: 05/22/2017 HISTORY: ams, pt uncooperative CT DLP: 2592.8 mGycm Automated exposure control for dose reduction was used. FINDINGS: There is hypodensity involving a large area of the right temporal lobe and also left occipital lobe c onsistent with old cortical infarcts. There is no mass effect nor midline shift. There is no sign of intracranial hemorrhage. Exam is limited by motion. The calvarium is intact. IMPRESSION: LARGE OLD INFARCT IN THE RIGHT TEMPORAL LOBE AND LEFT OCCIPITAL LOBE. LEFT OCCIPITAL INFARCT IS UNCHA NGED. RIGHT TEMPORAL LOBE INFARCT IS A CHANGE COMPARED TO OLD CT SCAN. NO HEMORRHAGE.
[2017-09-27] MEDS: SODIUM CHLORIDE 0.9% 500 ML IV SCH (18:45)
[2017-09-27 19:21] LABS: Anisocytosis Slight; Basophils % (A) 0 %; Eosinophils # (A) 0.9 k/uL (0-0.7); Eosinophils % (A) 6 %; HCT 33.7 % (34.0-46.0); HGB 10.7 gm/dL (11.4-16.0); Hypochromasia Moderate; Lymphocytes # (A) 1.9 k/uL (1.0-4.8); Lymphocytes % (A) 11 %; MCH 25.2 pg (25.0-35.0); MCHC 31.6 g/dL (31.0-37.0); MCV 79.7 fL (80.0-100.0); Mean Platelet Volume 8.7; Microcytosis Slight; Monocytes # (A) 0.8 k/uL (0-1.0); Monocytes % (A) 5 %; Neutrophils % (A) 78 %; Platelet Count 354 k/uL (150-450); RBC 4.24 m/uL (3.80-5.40); RDW 17.2 % (11.5-15.5); WBC 16.7 k/uL (3.8-10.6)
--- NOTE | 2017-09-27 19:24 | XR ---
EXAMINATION TYPE: XR chest 1V DATE OF EXAM: 09/27/2017 COMPARISON: 05/20/2017 HISTORY: Fever TECHNIQUE: Single frontal view of the chest is obtained. FINDINGS: Heart is enlarged. There is pulmonary vascular congestion. There is right axillary pacemak er with the lead tips over the right ventricle. There are sternal wires. Costophrenic angles are maribell r. IMPRESSION: Pulmonary edema consistent with congestive heart failure. This is new compared to last e xam.
[2017-09-27 19:31] LABS: ALT 31 U/L (9-52); AST 25 U/L (14-36); Albumin 3.5 g/dL (3.5-5.0); Alkaline Phosphatase 122 U/L (38-126); Anion Gap 8 mmol/L; Blood Urea Nitrogen 23 mg/dL (7-17); Calcium 10.1 mg/dL (8.4-10.2); Carbon Dioxide 29 mmol/L (22-30); Chloride 100 mmol/L (98-107); Glucose 118 mg/dL (74-99); Sodium 137 mmol/L (137-145); Total Bilirubin 0.8 mg/dL (0.2-1.3); Total Protein 7.1 g/dL (6.3-8.2)
[2017-09-27 19:40] LABS: Partial Thromboplastin Time 41.7 sec (22.0-30.0); Prothrombin Time 53.3 sec (9.0-12.0)
[2017-09-27 19:50] LABS: INR 5.9 (<1.2)
[2017-09-27 19:57] LABS: Creatine Kinase MB 1.4 ng/mL (0.0-2.4)
[2017-09-27 20:09] LABS: Troponin I 0.058 ng/mL (0.000-0.034)
[2017-09-27] MEDS ORDERED: NITROGLYCERIN-D5W PMX 50 MG in DEXTROSE/WATER 1 250ML.BAG IV ONE (20:14)
[2017-09-27] MEDS ORDERED: NALOXONE 0.4 MG/ML 1 ML VIAL IV PRN (21:18)
[2017-09-27] MEDS ORDERED: ASPIRIN 325 MG TAB PO STA (21:19)
[2017-09-27 22:38] LABS: Glucose,Whole Blood 133 mg/dL (75-99)
[2017-09-28] MEDS: ACETAMINOPHEN TAB 325 MG TAB PEG/G-TUBE PRN (00:09)
[2017-09-28 02:16] LABS: Amorphous Sediment,Urine Rare /hpf; Appearance,Urine Turbid (Clear); Bilirubin,Urine Negative (Negative); Blood,Urine Negative (Negative); Color,Urine Yellow; Glucose,Urine (UA) Negative (Negative); Ketones,Urine Negative (Negative); Leukocyte Esterase,Urine Moderate (Negative); Nitrite,Urine Negative (Negative); Protein,Urine Trace (Negative); Specific Gravity,Urine 1.016 (1.001-1.035); Squamous Epithelial Cell,Urine 1 /hpf (0-4); Urobilinogen,Urine <2.0 mg/dL (<2.0); WBC,Urine 58 /hpf (0-5)
[2017-09-28 04:46] LABS: Anisocytosis Slight; Basophils % (A) 0 %; Eosinophils % (A) 6 %; HCT 28.9 % (34.0-46.0); Hypochromasia Marked; Lymphocytes # (A) 2.1 k/uL (1.0-4.8); Lymphocytes % (A) 13 %; MCH 24.6 pg (25.0-35.0); MCHC 30.6 g/dL (31.0-37.0); MCV 80.3 fL (80.0-100.0); Mean Platelet Volume 7.8; Microcytosis Slight; Monocytes # (A) 0.7 k/uL (0-1.0); Monocytes % (A) 4 %; Neutrophils # (A) 12.1 k/uL (1.3-7.7); Neutrophils % (A) 75 %; Platelet Count 317 k/uL (150-450); RBC 3.59 m/uL (3.80-5.40); RDW 17.2 % (11.5-15.5); WBC 16.1 k/uL (3.8-10.6)
[2017-09-28 04:47] LABS: HGB 8.8 gm/dL (11.4-16.0)
[2017-09-28 04:58] LABS: Anion Gap 4 mmol/L; Blood Urea Nitrogen 18 mg/dL (7-17); Calcium 8.7 mg/dL (8.4-10.2); Carbon Dioxide 27 mmol/L (22-30); Chloride 106 mmol/L (98-107); Glucose 105 mg/dL (74-99); Magnesium 1.9 mg/dL (1.6-2.3); Phosphorus 4.3 mg/dL (2.5-4.5); Potassium 4.4 mmol/L (3.5-5.1); Sodium 137 mmol/L (137-145)
--- NOTE | 2017-09-28 06:08 | XR ---
EXAMINATION TYPE: XR chest 1V DATE OF EXAM: 09/28/2017 HISTORY: ICU monitoring . REFERENCE: Previous study dated 09/27/2017. FINDINGS: There is a bipolar pacemaker in place on the right. There has been a midline sternotomy. The heart is enlarged. There is vascular congestion and mild pulmonary edema. I suspect small, bilate ral effusions. IMPRESSION: CONTINUING CHANGES OF PULMONARY EDEMA.
[2017-09-28] MEDS ORDERED: INSULIN DETEMIR 100 UNIT/ML 10 ML VIAL SQ SCH (08:00)
[2017-09-28] MEDS: METOPROLOL TARTRATE 25 MG TAB PEG/G-TUBE SCH ×2 (08:23→20:12)
[2017-09-28] MEDS: levETIRAcetam ORAL SOLN 500 MG/5 ML CUP PEG/G-TUBE SCH ×2 (08:23→20:42)
[2017-09-28 08:24] LABS: Glucose,Whole Blood 136 mg/dL (75-99)
--- NOTE | 2017-09-28 09:08 | P.CNPUL ---
History of Present Illness Consult date: 09/28/17 Requesting physician: Kyle Logan Reason for consult: other (Critical care management) Chief complaint: Febrile illness, hypotension, altered mental status History of present illness: This is a 72-year-old female patient who resides in extended care facility and has a history of CVA, atrial fibrillation, diabetes mellitus, hyperlipidemia, hypertension, obstructive sleep apnea, L3 placement, pacemaker implantation, former smoker. She was transferred here to the emergency room yesterday with febrile illness, altered mental status and hypotension. In the emergency room she was found to be quite hypertensive with the admitting blood pressure of 237/ 107. She was initiated on a nitroglycerin drip at 10 mcg/m. She was started on metoprolol 75 mg twice a day. Computed tomography scan of the brain revealed a large old infarct in the right temporal lobe and left occipital lobe. No change compared to previous. No hemorrhage. This x-ray shows evidence of pulmonary edema. She is maintaining good O2 saturations in the 90s on room air. He is seen today in consultation in the intensive care unit. She is difficult to arouse. Very poor historian. White count 16.1. Hemoglobin 8.8. Creatinine 0.50. Her blood pressure has improved currently at 124/56. Nitroglycerin drip has been weaned off. Review of Systems ROS unobtainable: due to mental status Past Medical History Past Medical History: Atrial Fibrillation, Atrial Flutter, Asthma, Cancer, Diabetes Mellitus, Hyperlipidemia, Hypertension, Sleep Apnea/CPAP/BIPAP Additional Past Medical History / Comment(s): BREAST CA HAD LT LUMPECTOMY, MIGRAINES History of Any Multi-Drug Resistant Organisms: None Reported Past Surgical History: Breast Surgery, Orthopedic Surgery Additional Past Surgical History / Comment(s): LUMPECTOMY- LEFT BREAST FOR TREATMENT OF CA, D AND C, SINUS HAS A MECHANICAL VALVE, PACEMEKER, BETSY CATARACT SX -LENS IMPLANTS, SX FOR BROKEN RT FEMUR HAS METAL IN PLACE, LT ROTATOR CUFF SX. Mitral valve replacement mechanical, right hip fracture requiring right hip hemiarthroplasty in March 2012 hemiarthroplasty in the 2012 left breast lumpectomy with radiation treatment: Polypectomy spinal cord cyst removal partial hysterectomy Past Anesthesia/Blood Transfusion Reactions: No Reported Reaction Date of Last Stent Placement:: 2004? Type of Cardiac Device: Permanent Pacemaker Device Placement Date:: 2008 Past Psychological History: No Psychological Hx Reported Smoking Status: Former smoker Past Alcohol Use History: Rare Additional Past Alcohol Use History / Comment(s): SMOKED OFF AND ON 1960 LESS THAN A YEAR THEN QUIT Past Drug Use History: None Reported - Past Family History Father Additional Family Medical History / Comment(s): OF BLEEDING ULCER AT AGE 64 mother with colon cancer Mother Family Medical History: Cancer, CVA/TIA Additional Family Medical History / Comment(s): 88 YEARS OLD- HX STROKES, CANCER INTESTINAKL TRACT Medications and Allergies Home Medications Medication Instructions Recorded Confirmed Type Digoxin [Lanoxin] 250 mcg PEG/G-TUBE DAILY@0800 11/09/13 09/27/17 History Pravastatin Sodium [Pravachol] 40 mg PEG/G-TUBE HS 05/20/17 09/27/17 History Acetaminophen Tab [Tylenol Tab] 650 mg PEG/G-TUBE Q4H PRN 09/27/17 09/27/17 History Aspirin EC [Ecotrin Low Dose] 81 mg PEG/G-TUBE DAILY@0800 09/27/17 09/27/17 History Bisacodyl 10 mg RECTAL DAILY PRN 09/27/17 09/27/17 History Citalopram Hydrobromide [CeleXA] 10 mg PEG/G-TUBE DAILY@0800 09/27/17 09/27/17 History Docusate Sodium Liq 10 mg PEG/G-TUBE HS 09/27/17 09/27/17 History Ferrous Sulfate Liquid 325 mg PEG/G-TUBE HS 09/27/17 09/27/17 History INSULIN LISPRO (humaLOG) [humaLOG] See Protocol SQ ACHS 09/27/17 09/27/17 History Insulin Detemir [Levemir] 30 unit SQ BID@0800,199909/27/17 09/27/17 History Lansoprazole 30 mg PEG/G-TUBE HS 09/27/17 09/27/17 History Metoprolol Tartrate [Lopressor] 75 mg PEG/G-TUBE BID 09/27/17 09/27/17 History Warfarin [Coumadin] 2.5 mg PEG/G-TUBE SUMOTUWETH 09/27/17 09/27/17 History Warfarin [Coumadin] 10 mg PEG/G-TUBE HS 09/27/17 09/27/17 History levETIRAcetam [Keppra Oral 500 mg PEG/G-TUBE BID 09/27/1718 History Solution] Allergies Allergy/AdvReac Type Severity Reaction Status Date / Time ciprofloxacin [From Cipro] Allergy Rash/Hives Verified 09/27/17 17:17 ciprofloxacin HCl Allergy Rash/Hives Verified 09/27/17 17:17 [From Cipro] Quinolones Allergy Unknown Verified 09/27/17 17:17 Physical Exam Vitals: Vital Signs Temp Pulse Resp BP Pulse Ox 09/28/17 08:00 60 10 L 124/56 97 09/28/17 07:30 78 19 131/57 97 09/28/17 07:00 66 19 133/57 97 09/28/17 06:45 65 23 133/57 92 L 09/28/17 06:30 79 23 154/56 98 09/28/17 06:15 74 26 H 154/56 96 09/28/17 06:00 69 38 H 149/54 97 09/28/17 05:45 60 19 149/54 97 09/28/17 05:30 59 L 14 150/59 99 18 05:15 59 L 18 150/59 98 09/28/17 05:00 59 L 15 153/61 99 18 04:45 60 16 153/61 99 09/28/17 04:30 61 15 144/72 99 09/28/17 04:15 73 17 144/72 97 09/28/17 04:00 98.2 F 60 18 149/53 97 18 03:45 60 18 149/53 98 09/28/17 03:30 65 19 148/68 98 09/28/17 03:15 72 18 148/68 98 09/28/17 03:00 67 19 142/69 99 09/28/17 02:45 68 6 L 142/69 98 09/28/17 02:30 71 19 139/60 98 09/28/17 02:15 60 19 139/60 98 09/28/17 02:00 66 19 136/58 98 09/28/17 01:45 62 20 136/58 98 09/28/17 01:30 52 L 21 132/57 98 09/28/17 01:15 68 19 132/57 94 L 09/28/17 01:00 70 18 155/58 96 09/28/17 00:45 71 19 155/58 95 09/28/17 00:30 72 22 168/58 95 09/28/17 00:15 77 25 H 168/58 96 09/28/17 00:00 98.7 F 83 18 176/64 99 09/27/17 23:45 85 34 H 176/64 95 09/27/17 23:30 85 22 188/93 98 09/27/17 23:15 87 22 188/93 98 09/27/17 23:00 86 21 178/75 99 09/27/17 22:45 86 32 H 178/75 99 09/27/17 22:30 78 29 H 196/93 97 09/27/17 22:29 79 24 99 09/27/17 22:02 98.7 F 77 18 196/83 98 09/27/17 21:14 81 16 193/89 98 09/27/17 20:30 78 18 205/87 98 09/27/17 19:38 75 18 205/122 98 09/27/17 18:00 98.6 F 74 18 212/120 98 09/27/17 17:00 98.7 F 67 16 237/107 100 Intake and Output 09/27/17 09/28/17 09/28/17 22:59 06:59 14:59 Intake Total 50 68.9 Output Total 400 70 95 Balance -400 -20 -26.1 Intake: IV 50 30 0.9 NaCl 50 30 Intake, IV Titration 38.9 Amount Nitroglycerin-D5w Pmx 50 38.9 mg In Dextrose/Water 1 250ml.bag @ 10 MCG/MIN 3 mls/hr IV .Q24H ONE Rx#: [id number] Output: Urine 400 70 95 Other: Voiding Method Indwelling Catheter # Voids 50 Weight 66.8 kg 66.8 kg GENERAL EXAM: Difficult to arouse, comfortable in no apparent distress. HEAD: Normocephalic. EYES: Normal reaction of pupils, equal size. NOSE: Clear with pink turbinates. THROAT: No erythema or exudates. NECK: No masses, no JVD. CHEST: No chest wall deformity. LUNGS: Equal air entry with faint crackles in the posterior bases. CVS: S1 and S2 normal with an audible murmur, regular rhythm. ABDOMEN: No hepatosplenomegaly, normal bowel sounds, no guarding or rigidity. SPINE: No scoliosis or deformity SKIN: No rashes CENTRAL NERVOUS SYSTEM: Difficult to assess. EXTREMITIES: There is no peripheral edema. No clubbing, no cyanosis. Peripheral pulses are intact. Results - Laboratory Findings CBC and BMP: 09/28/17 04:09 09/28/17 04:09 PT/INR, D-dimer PT 53.3 sec (9.0-12.0) H 09/27/17 19:00 INR 5.9 (<1.2) H* 09/27/17 19:00 Abnormal lab findings: Abnormal Labs 09/27/17 09/27/17 09/27/17 19:00 19:00 19:00 WBC 16.7 H RBC Hgb 10.7 L Hct 33.7 L MCV 79.7 L MCH MCHC RDW 17.2 H Neutrophils # 13.0 H Eosinophils # 0.9 H PT INR APTT BUN 23 H Creatinine 0.50 L Glucose 118 H POC Glucose (mg/dL) Plasma Lactic Acid Buddy 2.2 H* Troponin I Urine Appearance Urine Protein Ur Leukocyte Esterase Urine WBC Urine WBC Clumps Amorphous Sediment 09/27/17 09/27/17 09/27/17 19:00 19:00 19:26 WBC RBC Hgb Hct MCV MCH MCHC RDW Neutrophils # Eosinophils # PT 53.3 H INR 5.9 H* APTT 41.7 H BUN Creatinine Glucose POC Glucose (mg/dL) Plasma Lactic Acid Buddy Troponin I 0.058 H* Urine Appearance Turbid H Urine Protein Trace H Ur Leukocyte Esterase Moderate H Urine WBC 58 H Urine WBC Clumps Moderate H Amorphous Sediment Rare H 09/27/17 09/28/17 09/28/17 22:28 04:09 04:09 WBC 16.1 H RBC 3.59 L Hgb 8.8 L D Hct 28.9 L MCV MCH 24.6 L MCHC 30.6 L RDW 17.2 H Neutrophils # 12.1 H Eosinophils # 1.0 H PT INR APTT BUN 18 H Creatinine 0.50 L Glucose 105 H POC Glucose (mg/dL) 133 H Plasma Lactic Acid Buddy Troponin I Urine Appearance Urine Protein Ur Leukocyte Esterase Urine WBC Urine WBC Clumps Amorphous Sediment 09/28/17 08:22 WBC RBC Hgb Hct MCV MCH MCHC RDW Neutrophils # Eosinophils # PT INR APTT BUN Creatinine Glucose POC Glucose (mg/dL) 136 H Plasma Lactic Acid Buddy Troponin I Urine Appearance Urine Protein Ur Leukocyte Esterase Urine WBC Urine WBC Clumps Amorphous Sediment - Diagnostic Findings Chest x-ray: image reviewed Assessment and Plan Assessment: Impression: #1 Hypertensive emergency requiring nitroglycerin drip, recovered. #2 Acute exacerbation of diastolic congestive heart failure secondary to above. #3 Altered mental status. #4 Previous CVA. #5 Diabetes mellitus. #6 History of atrial fibrillation status post permanent pacemaker implantation. #7 History of valve replacement. #8 Hypertension. #9 Hyperlipidemia. Her grafts #10 Obstructive sleep apnea. #11 Poor overall functional performance based on the above-mentioned multiple comorbidities, in extended care facility resident. Plan: The patient was seen and evaluated by Dr. Cho. Chest x-ray and labs were reviewed. We will attempt to wean off the nitroglycerin drip. Once her blood pressure is better controlled she'll be transferred out of the intensive care unit in the interim, we'll continue to follow make further recommendations based on her clinical status. I, the cosigning physician, performed a history & physical examination of the patient. Lungs sounds with crackles in the posterior bases. Maintaining good O2 saturations in the 90s on room air. I discussed the assessment and plan of care with my nurse practitioner, Colleen Mckay. I attest to the above note as dictated by her. Time with Patient: Greater than 30
[2017-09-28 12:44] LABS: Glucose,Whole Blood 173 mg/dL (75-99)
[2017-09-28] MEDS: INSULIN ASPART 100 UNIT/ML 1 ML 10 ML VIAL SQ SCH ×3 (13:15→23:57)
[2017-09-28] MEDS: ASPIRIN 325 MG TAB PO SCH (13:22)
--- NOTE | 2017-09-28 13:32 | P.CRDCN ---
History of Present Illness Consult date: 09/28/17 History of present illness: This is a 72-year-old female with history of previous CVA, atrial fibrillation, diabetes mellitus, hyperlipidemia and also sleep apnea who was living in a nursing facility. She was transferred to the emergency room yesterday with febrile illness after mental status and also hypotension. However when she came to the emergency room blood pressure was high. She was treated on IV nitroglycerin and also started on [id number] mg twice daily. 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 Patient had a CAT scan which showed evidence of previous stroke. Patient's chest x-ray showed evidence of pulmonary edema and possible pneumonia on the right side. Patient was treated with diuretics with improvement of her on an status. Her mental status is improving but still confused. Her hemoglobin is 8.8. White count is elevated. She is off nitroglycerin drip at this time. Review of Systems Not obtained Past Medical History Past Medical History: Atrial Fibrillation, Atrial Flutter, Asthma, Cancer, Diabetes Mellitus, Hyperlipidemia, Hypertension, Sleep Apnea/CPAP/BIPAP Additional Past Medical History / Comment(s): BREAST CA HAD LT LUMPECTOMY, MIGRAINES History of Any Multi-Drug Resistant Organisms: None Reported Past Surgical History: Breast Surgery, Orthopedic Surgery Additional Past Surgical History / Comment(s): LUMPECTOMY- LEFT BREAST FOR TREATMENT OF CA, D AND C, SINUS HAS A MECHANICAL VALVE, PACEMEKER, BETSY CATARACT SX -LENS IMPLANTS, SX FOR BROKEN RT FEMUR HAS METAL IN PLACE, LT ROTATOR CUFF SX. Mitral valve replacement mechanical, right hip fracture requiring right hip hemiarthroplasty in March 2012 hemiarthroplasty in the 2012 left breast lumpectomy with radiation treatment: Polypectomy spinal cord cyst removal partial hysterectomy Past Anesthesia/Blood Transfusion Reactions: No Reported Reaction Date of Last Stent Placement:: 2004? Type of Cardiac Device: Permanent Pacemaker Device Placement Date:: 2008 Past Psychological History: No Psychological Hx Reported Smoking Status: Former smoker Past Alcohol Use History: Rare Additional Past Alcohol Use History / Comment(s): SMOKED OFF AND ON 1960 LESS THAN A YEAR THEN QUIT Past Drug Use History: None Reported - Past Family History Father Additional Family Medical History / Comment(s): OF BLEEDING ULCER AT AGE 64 mother with colon cancer Mother Family Medical History: Cancer, CVA/TIA Additional Family Medical History / Comment(s): 88 YEARS OLD- HX STROKES, CANCER INTESTINAKL TRACT Medications and Allergies Home Medications Medication Instructions Recorded Confirmed Type Digoxin [Lanoxin] 250 mcg PEG/G-TUBE DAILY@0811/09/13 09/27/17 History Pravastatin Sodium [Pravachol] 40 mg PEG/G-TUBE HS 05/20/17 09/27/17 History Acetaminophen Tab [Tylenol Tab] 650 mg PEG/G-TUBE Q4H PRN 09/27/17 09/27/17 History Aspirin EC [Ecotrin Low Dose] 81 mg PEG/G-TUBE DAILY@0809/27/17 09/27/17 History Bisacodyl 10 mg RECTAL DAILY PRN 09/27/17 09/27/17 History Citalopram Hydrobromide [CeleXA] 10 mg PEG/G-TUBE DAILY@79909/27/17 09/27/17 History Docusate Sodium Liq 10 mg PEG/G-TUBE HS 09/27/17 09/27/17 History Ferrous Sulfate Liquid 325 mg PEG/G-TUBE HS 09/27/17 09/27/17 History INSULIN LISPRO (humaLOG) [humaLOG] See Protocol SQ ACHS 09/27/17 09/27/17 History Insulin Detemir [Levemir] 30 unit SQ BID@08,199909/27/17 09/27/17 History Lansoprazole 30 mg PEG/G-TUBE HS 09/27/17 09/27/17 History Metoprolol Tartrate [Lopressor] 75 mg PEG/G-TUBE BID 09/27/17 09/27/17 History Warfarin [Coumadin] 2.5 mg PEG/G-TUBE SUMOTUWETH 09/27/17 09/27/17 History Warfarin [Coumadin] 10 mg PEG/G-TUBE HS 09/27/17 09/27/17 History levETIRAcetam [Keppra Oral 500 mg PEG/G-TUBE BID 09/27/17 09/27/17 History Solution] Allergies Allergy/AdvReac Type Severity Reaction Status Date / Time ciprofloxacin [From Cipro] Allergy Rash/Hives Verified 09/27/17 17:17 ciprofloxacin HCl Allergy Rash/Hives Verified 09/27/17 17:17 [From Cipro] Quinolones Allergy Unknown Verified 09/27/17 17:17 Physical Exam Vitals: Vital Signs Temp Pulse Resp BP Pulse Ox 09/28/17 13:00 60 18 148/55 98 09/28/17 12:30 59 L 144/66 97 09/28/17 12:00 98 F 60 16 170/70 96 09/28/17 11:30 59 L 166/70 97 09/28/17 11:00 59 L 16 166/69 96 09/28/17 10:32 59 L 16 163/78 98 09/28/17 10:00 60 19 155/63 98 09/28/17 09:30 60 21 145/53 97 09/28/17 09:00 98.1 F 72 19 140/58 96 09/28/17 08:30 62 21 112/42 97 09/28/17 08:00 60 10 L 124/56 97 09/28/17 07:30 78 19 131/57 97 09/28/17 07:00 66 19 133/57 97 09/28/17 06:45 65 23 133/57 92 L 09/28/17 06:30 79 23 154/56 98 09/28/17 06:15 74 26 H 154/56 96 09/28/17 06:00 69 38 H 149/54 97 09/28/17 05:45 60 19 149/54 97 09/28/17 05:30 59 L 14 150/59 99 09/28/17 05:15 59 L 18 150/59 98 09/28/17 05:00 59 L 15 153/61 99 18 04:45 60 16 153/61 99 09/28/17 04:30 61 15 144/72 99 09/28/17 04:15 73 17 144/72 97 09/28/17 04:00 98.2 F 60 18 149/53 97 09/28/17 03:45 60 18 149/53 98 09/28/17 03:30 65 19 148/68 98 09/28/17 03:15 72 18 148/68 98 09/28/17 03:00 67 19 142/69 99 09/28/17 02:45 68 6 L 142/69 98 09/28/17 02:30 71 19 139/60 98 09/28/17 02:15 60 19 139/60 98 09/28/17 02:00 66 19 136/58 98 09/28/17 01:45 62 20 136/58 98 09/28/17 01:30 52 L 21 132/57 98 09/28/17 01:15 68 19 132/57 94 L 09/28/17 01:00 70 18 155/58 96 09/28/17 00:45 71 19 155/58 95 09/28/17 00:30 72 22 168/58 95 09/28/17 00:15 77 25 H 168/58 96 09/28/17 00:00 98.7 F 83 18 176/64 99 09/27/17 23:45 85 34 H 176/64 95 09/27/17 23:30 85 22 188/93 98 09/27/17 23:15 87 22 188/93 98 09/27/17 23:00 86 21 178/75 99 09/27/17 22:45 86 32 H 178/75 99 09/27/17 22:30 78 29 H 196/93 97 09/27/17 22:29 79 24 99 09/27/17 22:02 98.7 F 77 18 196/83 98 09/27/17 21:14 81 16 193/89 98 09/27/17 20:30 78 18 205/87 98 09/27/17 19:38 75 18 205/122 98 09/27/17 18:00 98.6 F 74 18 212/120 98 09/27/17 17:00 98.7 F 67 16 237/107 100 Intake and Output 09/27/17 09/28/17 09/28/17 22:59 06:59 14:59 Intake Total 50 248.9 Output Total 400 70 285 Balance -400 -20 -36.1 Intake: IV 50 130 0.9 NaCl 50 130 Intake, IV Titration 38.9 Amount Nitroglycerin-D5w Pmx 50 38.9 mg In Dextrose/Water 1 250ml.bag @ 10 MCG/MIN 3 mls/hr IV .Q24H ONE Rx#: [id number] Tube Feeding 20 Other 60 Output: Urine 400 70 285 Other: Voiding Method Indwelling Catheter Indwelling Catheter # Voids 50 Weight 66.8 kg 66.8 kg 66.8 kg GENERAL EXAM: Patient is arousable but confused HEENT: Normocephalic. Normal reaction of pupils, equal size, normal range of extraocular motion. No erythema or exudates in the throat. NECK: No masses, no nuchal rigidity. CHEST: No chest wall deformity. LUNGS: Diminished air exchange with rhonchi HEART: S1 and S2 normal with no audible mumurs or gallops. Regular rhythm, femorals equal on both sides.. ABDOMEN: Soft SKIN: No rashes CENTRAL NERVOUS SYSTEM: No focal deficits. EXTREMITIES: No cyanosis, clubbing or edema. Results 09/28/17 04:09 09/28/17 04:09 Cardiac Enzymes 09/27/17 09/27/17 Range/Units 19:00 19:00 AST 25 (14-36) U/L CK-MB (CK-2) 1.4 (0.0-2.4) ng/mL Troponin I 0.058 H* (0.000-0.034) ng/mL Coagulation 09/27/17 Range/Units 19:00 PT 53.3 H (9.0-12.0) sec APTT 41.7 H (22.0-30.0) sec CBC 09/27/17 09/28/17 Range/Units 19:00 04:09 WBC 16.7 H 16.1 H (3.8-10.6) k/uL RBC 4.24 3.59 L (3.80-5.40) m/uL Hgb 10.7 L 8.8 L D (11.4-16.0) gm/dL Hct 33.7 L 28.9 L (34.0-46.0) % Plt Count 354 317 (150-450) k/uL Comprehensive Metabolic Panel 09/27/17 09/28/17 Range/Units 19:00 04:09 Sodium 137 137 (137-145) mmol/L Potassium 5.0 4.4 (3.5-5.1) mmol/L Chloride 100 106 (98-107) mmol/L Carbon Dioxide 29 27 (22-30) mmol/L BUN 23 H 18 H (7-17) mg/dL Creatinine 0.50 L 0.50 L (0.52-1.04) mg/dL Glucose 118 H 105 H (74-99) mg/dL Calcium 10.1 8.7 (8.4-10.2) mg/dL AST 25 (14-36) U/L ALT 31 (9-52) U/L Alkaline Phosphatase 122 (38-126) U/L Total Protein 7.1 (6.3-8.2) g/dL Albumin 3.5 (3.5-5.0) g/dL Current Medications Generic Name Dose Route Start Last Admin Trade Name Freq PRN Reason Stop Dose Admin Acetaminophen 650 mg 09/27/17 21:20 09/28/17 00:09 Tylenol Tab PEG/G-TUBE 650 mg Q4H PRN Administration Pain Aspirin 325 mg 09/28/17 12:00 09/28/17 13:22 Aspirin PO 325 mg DAILY JM Administration Nitroglycerin/Dextrose 50 mg/ 250 mls @ 3 mls/hr 09/27/17 20:14 09/28/17 08: 36 IV Solution IV 09/28/17 20:13 0 mcg/min .Q24H ONE 0 mls/hr Titration Protocol 10 MCG/MIN Insulin Aspart 0 unit 09/28/17 12:30 Novolog SQ ACHS JM Protocol Insulin Detemir 30 unit 09/28/17 08:00 09/28/17 13:21 Levemir SQ Not Given BID@0800,2000 JM Levetiracetam 500 mg 09/28/17 09:00 09/28/17 08:23 Keppra Oral Soln PEG/G-TUBE 500 mg BID JM Administration Metoprolol Tartrate 75 mg 09/28/17 09:00 09/28/17 08:23 Lopressor PEG/G-TUBE 75 mg BID JM Administration Naloxone HCl 0.2 mg 09/27/17 21:18 Narcan IV Q2M PRN Opioid Reversal Pantoprazole Sodium 40 mg 09/28/17 21:00 Protonix PO HS JM Pravastatin Sodium 40 mg 09/28/17 21:00 Pravachol PO HS [facility] Intake and Output 09/27/17 09/28/17 09/28/17 22:59 06:59 14:59 Intake Total 50 248.9 Output Total 400 70 285 Balance -400 -20 -36.1 Intake: IV 50 130 0.9 NaCl 50 130 Intake, IV Titration 38.9 Amount Nitroglycerin-D5w Pmx 50 38.9 mg In Dextrose/Water 1 250ml.bag @ 10 MCG/MIN 3 mls/hr IV .Q24H ONE Rx#: [id number] Tube Feeding 20 Other 60 Output: Urine 400 70 285 Other: Voiding Method Indwelling Catheter Indwelling Catheter # Voids 50 Weight 66.8 kg 66.8 kg 66.8 kg Patient Weight 09/29/17 06:59 Weight 66.8 kg 09/28/17 04:09 09/28/17 04:09 EKG Interpretations (text) Sinus rhythm with a long first-degree AV block Assessment and Plan (1) Hypertensive emergency Current Visit: Yes Status: Acute Code(s): I16.1 - HYPERTENSIVE EMERGENCY SNOMED Code(s): 721090320563345 (2) Diabetes Current Visit: No Status: Acute Code(s): E11.9 - TYPE 2 DIABETES MELLITUS WITHOUT COMPLICATIONS SNOMED Code(s): 77943472 (3) Hallucinations Current Visit: No Status: Acute Code(s): R44.3 - HALLUCINATIONS, UNSPECIFIED SNOMED Code(s): 6305957 (4) S/P MVR (mitral valve replacement) Current Visit: No Status: Acute Code(s): Z95.2 - PRESENCE OF PROSTHETIC HEART VALVE SNOMED Code(s): 6686989648145 (5) Diastolic CHF Current Visit: Yes Status: Acute Code(s): I50.30 - UNSPECIFIED DIASTOLIC ( CONGESTIVE) HEART FAILURE SNOMED Code(s): 214905469 (6) Aspiration pneumonia Current Visit: Yes Status: Acute Code(s): J69.0 - PNEUMONITIS DUE TO INHALATION OF FOOD AND VOMIT SNOMED Code(s): 904798804 Plan: Continue current medical therapy. Continue the diuretics and possibly antibiotics. Continue with anticoagulation. Further recommendations depend upon clinical course
[2017-09-28] MEDS ORDERED: POTASSIUM CHLORIDE ER 10 MEQ TAB.ER.PRT PO SCH (13:45)
[2017-09-28] MEDS: FUROSEMIDE 10 MG/ML 2 ML VIAL IV SCH ×2 (14:45→20:12)
[2017-09-28 18:08] LABS: Glucose,Whole Blood 185 mg/dL (75-99)
[2017-09-28] MEDS: PANTOPRAZOLE SODIUM 40 MG GRANULE PKT PO SCH (20:12)
[2017-09-28] MEDS: PRAVASTATIN SODIUM 40 MG TAB PO SCH (20:12)
[2017-09-28] MEDS: INSULIN DETEMIR 100 UNIT/ML 10 ML VIAL SQ SCH (20:15)
--- NOTE | 2017-09-28 20:15 | P.HPIM ---
History of Present Illness this is a 72 yo F with pmh of Atrial fibrillation , asthma , Diabetes Mellitus, Hypertesion , hyperlipidemia , sleep apnea on BiPAP/CPAP, h/o breast cancer status post lumpectomy migrains who presents with altered mental status, pt could not provide information so it is obtained from medical records and staff, no family at bed side In the emergency room she was found to be quite hypertensive with the admitting blood pressure of 237/107. She was initiated on a nitroglycerin drip at 10 mcg/ m. She was started on metoprolol 75 mg twice a day. Computed tomography scan of the brain revealed a large old infarct in the right temporal lobe and left occipital lobe. No change compared to previous. No hemorrhage. This x-ray shows evidence of pulmonary edema. She is maintaining good O2 saturations in the 90s on room air. He is seen today in consultation in the intensive care unit. She is difficult to arouse. Very poor historian. White count 16.1. Hemoglobin 8.8. Creatinine 0.50. Her BP is better controlled and now SBP is about 144. she is currently only on metoprolol 75 mg bid with no nitroglycerin drip (stopped) pt can be transferred to general medical floor Review of Systems N/A Past Medical History Past Medical History: Atrial Fibrillation, Atrial Flutter, Asthma, Cancer, Diabetes Mellitus, Hyperlipidemia, Hypertension, Sleep Apnea/CPAP/BIPAP Additional Past Medical History / Comment(s): BREAST CA HAD LT LUMPECTOMY, MIGRAINES History of Any Multi-Drug Resistant Organisms: None Reported Past Surgical History: Breast Surgery, Orthopedic Surgery Additional Past Surgical History / Comment(s): LUMPECTOMY- LEFT BREAST FOR TREATMENT OF CA, D AND C, SINUS HAS A MECHANICAL VALVE, PACEMEKER, BETSY CATARACT SX -LENS IMPLANTS, SX FOR BROKEN RT FEMUR HAS METAL IN PLACE, LT ROTATOR CUFF SX. Mitral valve replacement mechanical, right hip fracture requiring right hip hemiarthroplasty in March 2012 hemiarthroplasty in the 2012 left breast lumpectomy with radiation treatment: Polypectomy spinal cord cyst removal partial hysterectomy Past Anesthesia/Blood Transfusion Reactions: No Reported Reaction Date of Last Stent Placement:: 2004? Type of Cardiac Device: Permanent Pacemaker Device Placement Date:: 2008 Past Psychological History: No Psychological Hx Reported Smoking Status: Former smoker Past Alcohol Use History: Rare Additional Past Alcohol Use History / Comment(s): SMOKED OFF AND ON 1960 LESS THAN A YEAR THEN QUIT Past Drug Use History: None Reported - Past Family History Father Additional Family Medical History / Comment(s): OF BLEEDING ULCER AT AGE 64 mother with colon cancer Mother Family Medical History: Cancer, CVA/TIA Additional Family Medical History / Comment(s): 88 YEARS OLD- HX STROKES, CANCER INTESTINAKL TRACT Medications and Allergies Home Medications Medication Instructions Recorded Confirmed Type Digoxin [Lanoxin] 250 mcg PEG/G-TUBE DAILY@0800 11/09/13 09/27/17 History Pravastatin Sodium [Pravachol] 40 mg PEG/G-TUBE HS 05/20/17 09/27/17 History Acetaminophen Tab [Tylenol Tab] 650 mg PEG/G-TUBE Q4H PRN 09/27/17 09/27/17 History Aspirin EC [Ecotrin Low Dose] 81 mg PEG/G-TUBE DAILY@0800 09/27/17 09/27/17 History Bisacodyl 10 mg RECTAL DAILY PRN 09/27/17 09/27/17 History Citalopram Hydrobromide [CeleXA] 10 mg PEG/G-TUBE DAILY@0800 09/27/17 09/27/17 History Docusate Sodium Liq 10 mg PEG/G-TUBE HS 09/27/17 09/27/17 History Ferrous Sulfate Liquid 325 mg PEG/G-TUBE HS 09/27/17 09/27/17 History INSULIN LISPRO (humaLOG) [humaLOG] See Protocol SQ ACHS 09/27/17 09/27/17 History Insulin Detemir [Levemir] 30 unit SQ BID@0800,199909/27/17 09/27/17 History Lansoprazole 30 mg PEG/G-TUBE HS 09/27/17 09/27/17 History Metoprolol Tartrate [Lopressor] 75 mg PEG/G-TUBE BID 09/27/17 09/27/17 History Warfarin [Coumadin] 2.5 mg PEG/G-TUBE SUMOTUWETH 09/27/17 09/27/17 History Warfarin [Coumadin] 10 mg PEG/G-TUBE HS 09/27/17 09/27/17 History levETIRAcetam [Keppra Oral 500 mg PEG/G-TUBE BID 09/27/17 09/27/17 History Solution] Allergies Allergy/AdvReac Type Severity Reaction Status Date / Time ciprofloxacin [From Cipro] Allergy Rash/Hives Verified 09/27/17 17:17 ciprofloxacin HCl Allergy Rash/Hives Verified 09/27/17 17:17 [From Cipro] Quinolones Allergy Unknown Verified 09/27/17 17:17 Physical Exam Vitals: Vital Signs Temp Pulse Resp BP Pulse Ox 09/28/17 16:00 97.9 F 60 16 158/72 98 09/28/17 15:00 60 16 162/76 96 09/28/17 14:00 59 L 16 160/78 96 09/28/17 13:00 60 18 148/55 98 09/28/17 12:30 59 L 144/66 97 09/28/17 12:00 98 F 60 16 170/70 96 09/28/17 11:30 59 L 166/70 97 09/28/17 11:00 59 L 16 166/69 96 09/28/17 10:32 59 L 16 163/78 98 09/28/17 10:00 60 19 155/63 98 09/28/17 09:30 60 21 145/53 97 09/28/17 09:00 98.1 F 72 19 140/58 96 09/28/17 08:30 62 21 112/42 97 09/28/17 08:00 60 10 L 124/56 97 09/28/17 07:30 78 19 131/57 97 09/28/17 07:00 66 19 133/57 97 09/28/17 06:45 65 23 133/57 92 L 09/28/17 06:30 79 23 154/56 98 09/28/17 06:15 74 26 H 154/56 96 09/28/17 06:00 69 38 H 149/54 97 09/28/17 05:45 60 19 149/54 97 09/28/17 05:30 59 L 14 150/59 99 09/28/17 05:15 59 L 18 150/59 98 09/28/17 05:00 59 L 15 153/61 99 18 04:45 60 16 153/61 99 09/28/17 04:30 61 15 144/72 99 09/28/17 04:15 73 17 144/72 97 09/28/17 04:00 98.2 F 60 18 149/53 97 09/28/17 03:45 60 18 149/53 98 09/28/17 03:30 65 19 148/68 98 09/28/17 03:15 72 18 148/68 98 09/28/17 03:00 67 19 142/69 99 09/28/17 02:45 68 6 L 142/69 98 09/28/17 02:30 71 19 139/60 98 09/28/17 02:15 60 19 139/60 98 09/28/17 02:00 66 19 136/58 98 09/28/17 01:45 62 20 136/58 98 09/28/17 01:30 52 L 21 132/57 98 09/28/17 01:15 68 19 132/57 94 L 09/28/17 01:00 70 18 155/58 96 09/28/17 00:45 71 19 155/58 95 09/28/17 00:30 72 22 168/58 95 09/28/17 00:15 77 25 H 168/58 96 09/28/17 00:00 98.7 F 83 18 176/64 99 09/27/17 23:45 85 34 H 176/64 95 09/27/17 23:30 85 22 188/93 98 09/27/17 23:15 87 22 188/93 98 09/27/17 23:00 86 21 178/75 99 09/27/17 22:45 86 32 H 178/75 99 18 22:30 78 29 H 196/93 97 09/27/17 22:29 79 24 99 09/27/17 22:02 98.7 F 77 18 196/83 98 09/27/17 21:14 81 16 193/89 98 09/27/17 20:30 78 18 205/87 98 Intake and Output 09/28/17 09/28/17 09/28/17 06:59 14:59 22:59 Intake Total 50 308.9 160 Output Total 70 340 740 Balance -20 -31.1 -580 Intake: IV 50 170 80 0.9 NaCl 50 170 80 Intake, IV Titration 38.9 Amount Nitroglycerin-D5w Pmx 50 38.9 mg In Dextrose/Water 1 250ml.bag @ 10 MCG/MIN 3 mls/hr IV .Q24H ONE Rx#: [id number] Tube Feeding 40 50 Other 60 30 Output: Urine 70 340 740 Other: Voiding Method Indwelling Catheter Indwelling Catheter Indwelling Catheter # Voids 50 Weight 66.8 kg 66.8 kg GENERAL: The patient response to some stimuli, pt can not provide info HEENT: Pupils are round and equally reacting to light. EOMI. No scleral icterus. No conjunctival pallor. Normocephalic, atraumatic. No pharyngeal erythema. No thyromegaly. CARDIOVASCULAR: S1 and S2 present. No murmurs, rubs, or gallops. PULMONARY: Chest is clear to auscultation, no wheezing or crackles. ABDOMEN: Soft, nontender, nondistended, normoactive bowel sounds. No palpable organomegaly. MUSCULOSKELETAL: No joint swelling or deformity. EXTREMITIES: No cyanosis, clubbing, or pedal edema. NEUROLOGICAL: pt is confused and delirious , pupils are equal and reactive to light , SKIN: No rashes. Results CBC & Chem 7: 09/28/17 04:09 09/28/17 04:09 Labs: Abnormal Lab Results - Last 24 Hours (Table) 09/27/17 09/27/17 09/27/17 Range/Units 19:00 19:00 19:00 WBC (3.8-10.6) k/uL RBC (3.80-5.40) m/uL Hgb (11.4-16.0) gm/dL Hct (34.0-46.0) % MCH (25.0-35.0) pg MCHC (31.0-37.0) g/dL RDW (11.5-15.5) % Neutrophils # (1.3-7.7) k/uL Eosinophils # (0-0.7) k/uL PT 53.3 H (9.0-12.0) sec INR 5.9 H* (<1.2) APTT 41.7 H (22.0-30.0) sec BUN (7-17) mg/dL Creatinine (0.52-1.04) mg/dL Glucose (74-99) mg/dL POC Glucose (mg/dL) (75-99) mg/dL Plasma Lactic Acid Buddy 2.2 H* (0.7-2.0) mmol/L Troponin I 0.058 H* (0.000-0.034) ng/mL Urine Appearance (Clear) Urine Protein (Negative) Ur Leukocyte Esterase (Negative) Urine WBC (0-5) /hpf Urine WBC Clumps (None) /hpf Amorphous Sediment (None) /hpf 09/27/17 09/27/17 09/28/17 Range/Units 19:26 22:28 04:09 WBC 16.1 H (3.8-10.6) k/uL RBC 3.59 L (3.80-5.40) m/uL Hgb 8.8 L D (11.4-16.0) gm/dL Hct 28.9 L (34.0-46.0) % MCH 24.6 L (25.0-35.0) pg MCHC 30.6 L (31.0-37.0) g/dL RDW 17.2 H (11.5-15.5) % Neutrophils # 12.1 H (1.3-7.7) k/uL Eosinophils # 1.0 H (0-0.7) k/uL PT (9.0-12.0) sec INR (<1.2) APTT (22.0-30.0) sec BUN (7-17) mg/dL Creatinine (0.52-1.04) mg/dL Glucose (74-99) mg/dL POC Glucose (mg/dL) 133 H (75-99) mg/dL Plasma Lactic Acid Buddy (0.7-2.0) mmol/L Troponin I (0.000-0.034) ng/mL Urine Appearance Turbid H (Clear) Urine Protein Trace H (Negative) Ur Leukocyte Esterase Moderate H (Negative) Urine WBC 58 H (0-5) /hpf Urine WBC Clumps Moderate H (None) /hpf Amorphous Sediment Rare H (None) /hpf 09/28/17 09/28/17 09/28/17 Range/Units 04:09 08:22 12:42 WBC (3.8-10.6) k/uL RBC (3.80-5.40) m/uL Hgb (11.4-16.0) gm/dL Hct (34.0-46.0) % MCH (25.0-35.0) pg MCHC (31.0-37.0) g/dL RDW (11.5-15.5) % Neutrophils # (1.3-7.7) k/uL Eosinophils # (0-0.7) k/uL PT (9.0-12.0) sec INR (<1.2) APTT (22.0-30.0) sec BUN 18 H (7-17) mg/dL Creatinine 0.50 L (0.52-1.04) mg/dL Glucose 105 H (74-99) mg/dL POC Glucose (mg/dL) 136 H 173 H (75-99) mg/dL Plasma Lactic Acid Buddy (0.7-2.0) mmol/L Troponin I (0.000-0.034) ng/mL Urine Appearance (Clear) Urine Protein (Negative) Ur Leukocyte Esterase (Negative) Urine WBC (0-5) /hpf Urine WBC Clumps (None) /hpf Amorphous Sediment (None) /hpf 09/28/17 Range/Units 18:06 WBC (3.8-10.6) k/uL RBC (3.80-5.40) m/uL Hgb (11.4-16.0) gm/dL Hct (34.0-46.0) % MCH (25.0-35.0) pg MCHC (31.0-37.0) g/dL RDW (11.5-15.5) % Neutrophils # (1.3-7.7) k/uL Eosinophils # (0-0.7) k/uL PT (9.0-12.0) sec INR (<1.2) APTT (22.0-30.0) sec BUN (7-17) mg/dL Creatinine (0.52-1.04) mg/dL Glucose (74-99) mg/dL POC Glucose (mg/dL) 185 H (75-99) mg/dL Plasma Lactic Acid Buddy (0.7-2.0) mmol/L Troponin I (0.000-0.034) ng/mL Urine Appearance (Clear) Urine Protein (Negative) Ur Leukocyte Esterase (Negative) Urine WBC (0-5) /hpf Urine WBC Clumps (None) /hpf Amorphous Sediment (None) /hpf Microbiology - Last 24 Hours (Table) 09/27/17 19:26 Urine Culture - Preliminary Urine,Catheterized Assessment and Plan Assessment: Hypertensive emergency acute on chronic diastolic CHF positive jessica supratheraputic INR, with coagulopathy metabolic encephalopathy uncontrolled essential hypertension atrial fibrillation diabetes mellitus, on insulin hyperlipidemia hypertension h/o seizure h/o stroke possible vascular dementia obstructive sleep apnea Plan: this is a 72 yo F who presents with hypertensive emergency and metabolic encephalopathy. continue with the same treatment , continue with symptomatic treatment , resume home medication , monitor lytes and vitals including glucose , c/w diuretics ,c/w insuline, pt is on half the dose in the begining.c/w ISS. hold coumadin while INR is supratherapeutic . CT of the head showed multiple old infact. cardiology consult is appreciated. cardiology consult is appreciated . continue with metaprolol. GI and DVT prophylaxis , further recommendation based upon pt clinical course and progress prognosis is guarded
[2017-09-28 20:21] LABS: Glucose,Whole Blood 138 mg/dL (75-99)
[2017-09-28] MEDS: POTASSIUM BICARBONATE/CIT AC 20 MEQ TABLET.EFF PO SCH (20:39)
[2017-09-28] MEDS ORDERED: WARFARIN 10 MG TAB PEG/G-TUBE SCH (21:00)
[2017-09-28 23:57] LABS: Glucose,Whole Blood 127 mg/dL (75-99)
[2017-09-29] MEDS ORDERED: amLODIPine 10 MG TAB PO STA (01:11)
[2017-09-29] MEDS: ACETAMINOPHEN TAB 325 MG TAB PEG/G-TUBE PRN (02:15)
[2017-09-29 04:58] LABS: Anisocytosis Slight; Basophils # (A) 0.1 k/uL (0-0.2); Basophils % (A) 0 %; Eosinophils % (A) 7 %; HCT 31.7 % (34.0-46.0); HGB 9.6 gm/dL (11.4-16.0); Hypochromasia Marked; Lymphocytes # (A) 1.8 k/uL (1.0-4.8); Lymphocytes % (A) 13 %; MCH 24.4 pg (25.0-35.0); MCHC 30.3 g/dL (31.0-37.0); MCV 80.6 fL (80.0-100.0); Mean Platelet Volume 7.7; Microcytosis Slight; Monocytes # (A) 0.8 k/uL (0-1.0); Monocytes % (A) 6 %; Neutrophils # (A) 9.8 k/uL (1.3-7.7); Neutrophils % (A) 72 %; Platelet Count 325 k/uL (150-450); RBC 3.93 m/uL (3.80-5.40); RDW 17.4 % (11.5-15.5); WBC 13.6 k/uL (3.8-10.6)
[2017-09-29 05:08] LABS: Anion Gap 6 mmol/L; Blood Urea Nitrogen 20 mg/dL (7-17); Carbon Dioxide 30 mmol/L (22-30); Chloride 102 mmol/L (98-107); Glucose 142 mg/dL (74-99); Phosphorus 3.5 mg/dL (2.5-4.5); Potassium 3.9 mmol/L (3.5-5.1); Sodium 138 mmol/L (137-145)
[2017-09-29 06:59] LABS: Glucose,Whole Blood 176 mg/dL (75-99)
--- NOTE | 2017-09-29 07:01 | XR ---
EXAMINATION TYPE: XR chest 1V DATE OF EXAM: 09/29/2017 HISTORY: ICU monitoring . REFERENCE: Previous study dated 09/28/2017. FINDINGS: There has been a midline sternotomy. There is a bipolar pacemaker in place on the right. The heart is mildly enlarged. There is improvement in the degree of vascular congestion and pulmonary edema. I cannot exclude a tiny right-sided effusion. IMPRESSION: IMPROVING CHANGES OF PULMONARY EDEMA.
[2017-09-29] MEDS: INSULIN ASPART 100 UNIT/ML 1 ML 10 ML VIAL SQ SCH ×4 (07:09→20:38)
[2017-09-29] MEDS: INSULIN DETEMIR 100 UNIT/ML 10 ML VIAL SQ SCH ×2 (08:30→20:39)
[2017-09-29] MEDS: METOPROLOL TARTRATE 25 MG TAB PEG/G-TUBE SCH ×2 (08:30→20:40)
[2017-09-29] MEDS: ASPIRIN 325 MG TAB PO SCH (08:31)
[2017-09-29] MEDS: FUROSEMIDE 10 MG/ML 2 ML VIAL IV SCH ×2 (08:31→20:39)
[2017-09-29] MEDS: POTASSIUM BICARBONATE/CIT AC 20 MEQ TABLET.EFF PO SCH ×2 (08:31→20:41)
[2017-09-29] MEDS: levETIRAcetam ORAL SOLN 500 MG/5 ML CUP PEG/G-TUBE SCH ×2 (08:32→20:40)
--- NOTE | 2017-09-29 09:03 | P.PN ---
Subjective Progress Note Date: 09/29/17 Principal diagnosis: CHF, hypertensive emergency Progress note dated 09/29/2017 72-year-old female who resides in an extended care facility and has a history of CVA, atrial fibrillation, diabetes mellitus, hyperlipidemia, hypertension, obstructive sleep apnea syndrome, pacemaker implantation, and who was a former smoker. Patient presented to the emergency department with hypertension out of control. Blood pressure was 237/107. She was started initially on nitroglycerin at 5 mcg/m. She was also given metoprolol 75 mm twice a day. Computed tomography scan showed a large old infarct in the right temporal lobe and left occipital lobe. Nitroglycerin was increased to 10 g an hour and she was transferred to the ICU. There is nothing apparently acute on the computed tomography scan of the brain. The patient is doing much better now. Her blood pressures much better control. She is a poor historian. Current vital signs include a heart rate is 62 blood pressure 136/62 with a mean of 95% saturation on 1 L of oxygen at 99% and a respiratory rate of 19 breaths per minute. Temperature is normal. The urinalysis is positive for group D enterococcus infection. Objective - Vital Signs Vital signs: Vital Signs Temp 98.8 F 09/29/17 00:00 Pulse 62 09/29/17 05:00 Resp 37 H 09/29/17 05:00 BP 138/60 09/29/17 05:00 Pulse Ox 95 09/29/17 05:00 Intake & Output 09/28/17 09/29/17 09/29/17 18:59 06:59 18:59 Intake Total 438.9 490 100 Output Total 1080 1010 30 Balance -641.1 -520 70 Weight 66.8 kg 68 kg Intake: IV 230 140 20 0.9 NaCl 230 140 20 Intake, IV Titration 38.9 Amount Nitroglycerin-D5w Pmx 50 38.9 mg In Dextrose/Water 1 250ml.bag @ 10 MCG/MIN 3 mls/hr IV .Q24H ONE Rx#: [id number] Tube Feeding 80 290 20 Other 90 60 60 Output: Urine 1080 1010 30 Other: Voiding Method Indwelling Catheter Indwelling Catheter - Exam No acute distress, oriented 3. Nasal O2 in place. HEENT examination is grossly unremarkable. Mucous membranes are moist. No oral lesions. Neck supple. Full range of motion. No adenopathy thyromegaly or neck vein distention. Cardiovascular examination reveals regular rhythm rate. S1-S2 normal. No S3 or S4. No discernible murmur noted. Lungs reveal clear breath sounds. Her sounds are equal bilaterally. No adventitious lung sounds including wheezes rhonchi or crackles. Abdomen soft bowel sounds are heard. No masses or tenderness. Extremities are intact. No cyanosis clubbing or edema. Skin is without rash or lesion. Neurologic examination is brief but nonfocal. - Labs CBC & Chem 7: 09/29/17 04:34 09/29/17 04:34 Labs: Abnormal Lab Results - Last 24 Hours (Table) 09/28/17 09/28/17 09/28/17 Range/Units 12:42 18:06 20:20 WBC (3.8-10.6) k/uL Hgb (11.4-16.0) gm/dL Hct (34.0-46.0) % MCH (25.0-35.0) pg MCHC (31.0-37.0) g/dL RDW (11.5-15.5) % Neutrophils # (1.3-7.7) k/uL Eosinophils # (0-0.7) k/uL BUN (7-17) mg/dL Creatinine (0.52-1.04) mg/dL Glucose (74-99) mg/dL POC Glucose (mg/dL) 173 H 185 H 138 H (75-99) mg/dL 09/28/17 09/29/17 09/29/17 Range/Units 23:56 04:34 04:34 WBC 13.6 H (3.8-10.6) k/uL Hgb 9.6 L (11.4-16.0) gm/dL Hct 31.7 L (34.0-46.0) % MCH 24.4 L (25.0-35.0) pg MCHC 30.3 L (31.0-37.0) g/dL RDW 17.4 H (11.5-15.5) % Neutrophils # 9.8 H (1.3-7.7) k/uL Eosinophils # 1.0 H (0-0.7) k/uL BUN 20 H (7-17) mg/dL Creatinine 0.50 L (0.52-1.04) mg/dL Glucose 142 H (74-99) mg/dL POC Glucose (mg/dL) 127 H (75-99) mg/dL 09/29/17 Range/Units 06:57 WBC (3.8-10.6) k/uL Hgb (11.4-16.0) gm/dL Hct (34.0-46.0) % MCH (25.0-35.0) pg MCHC (31.0-37.0) g/dL RDW (11.5-15.5) % Neutrophils # (1.3-7.7) k/uL Eosinophils # (0-0.7) k/uL BUN (7-17) mg/dL Creatinine (0.52-1.04) mg/dL Glucose (74-99) mg/dL POC Glucose (mg/dL) 176 H (75-99) mg/dL Microbiology - Last 24 Hours (Table) 09/27/17 19:26 Urine Culture - Preliminary Urine,Catheterized Group D Enterococcus 09/27/17 19:00 Blood Culture - Preliminary Blood No Growth after 24 hours Assessment and Plan Assessment: Assessment Hypertensive emergency Previous history of cerebrovascular accident History of atrial fibrillation Diabetes mellitus Hyperlipidemia Hypertension Obstructive sleep apnea syndrome Status post pacemaker implantation Previous history of tobacco use History of breast cancer, status post left lumpectomy Migraines cephalgia Rule out group D enterococcal urinary tract infection Plan: Plan dated 09/29/2017 The patient remains on O2 via nasal cannula 1 L/m. The basic IV saline and only 20 mL an hour. Labs x-rays a medications are all reviewed. White count 13.6 hemoglobin 9.6 hematocrit 31.7 platelet count 325,000. Electrolytes look pretty normal with a BUN of 20 and a creatinine of 0.5. Chest x-ray shows improving volume status. Medications are reviewed and include Tylenol amlodipine aspirin Lasix insulin metoprolol Narcan protonix potassium replacement and pravastatin. If the patient remains stable, he can move out of the intensive care unit. I will add some Augmentin for her urinary tract pathogen. Additional recommendations and suggestions are forthcoming. Time with Patient: Greater than 30
[2017-09-29] MEDS: AMOXIC-POT CLAV 875-125MG 1 EACH TAB PO SCH ×2 (10:19→20:40)
[2017-09-29 12:44] LABS: Glucose,Whole Blood 210 mg/dL (75-99)
--- NOTE | 2017-09-29 12:50 | P.PN ---
Subjective Progress Note Date: 09/29/17 This is a 72-year-old female with history of CVA, mitral replacement and chronic diastolic CHF was admitted to the hospital with uncontrolled blood pressure and altered mental status. She was also found to have and pulmonary edema and CHF. Patient's blood pressure well controlled with IV nitroglycerin. She is also on IV diuretics. Her chest x-ray showed improvement in pulmonary edema. Patient seemed to be more alert but still confused. Mental status is improved. Patient is also being treated for UTI. We'll continue current medical therapy Objective - Vital Signs Vital signs: Vital Signs Temp 97.7 F 09/29/17 09:00 Pulse 59 L 09/29/17 09:00 Resp 18 09/29/17 09:00 BP 136/62 09/29/17 09:00 Pulse Ox 100 09/29/17 09:00 Intake & Output 09/28/17 09/29/17 09/29/17 18:59 06:59 18:59 Intake Total 438.9 490 380 Output Total 1080 1010 580 Balance -641.1 -520 -200 Weight 66.8 kg 68 kg Intake: IV 230 140 60 0.9 NaCl 230 140 60 Intake, IV Titration 38.9 Amount Nitroglycerin-D5w Pmx 50 38.9 mg In Dextrose/Water 1 250ml.bag @ 10 MCG/MIN 3 mls/hr IV .Q24H ONE Rx#: [id number] Tube Feeding 80 290 200 Other 90 60 120 Output: Urine 1080 1010 580 Other: Voiding Method Indwelling Catheter Indwelling Catheter Indwelling Catheter - Exam GENERAL EXAM: Patient is Lethargic and arousable. Seemed to be more alert than before. HEENT: Normocephalic. Normal reaction of pupils, equal size, normal range of extraocular motion. No erythema or exudates in the throat. NECK: No masses, no nuchal rigidity. CHEST: No chest wall deformity. LUNGS: Diminished breath sounds bilaterally HEART: [Regular rhythm] ABDOMEN: No hepatosplenomegaly, normal bowel sounds, no guarding or rigidity. SKIN: No rashes CENTRAL NERVOUS SYSTEM:Deferred EXTREMITIES: [No cyanosis, clubbing or edema.]Accept default's - Labs CBC & Chem 7: 09/29/17 04:34 09/29/17 04:34 Labs: Abnormal Lab Results - Last 24 Hours (Table) 09/28/17 09/28/17 09/28/17 Range/Units 18:06 20:20 23:56 WBC (3.8-10.6) k/uL Hgb (11.4-16.0) gm/dL Hct (34.0-46.0) % MCH (25.0-35.0) pg MCHC (31.0-37.0) g/dL RDW (11.5-15.5) % Neutrophils # (1.3-7.7) k/uL Eosinophils # (0-0.7) k/uL BUN (7-17) mg/dL Creatinine (0.52-1.04) mg/dL Glucose (74-99) mg/dL POC Glucose (mg/dL) 185 H 138 H 127 H (75-99) mg/dL 09/29/17 09/29/17 09/29/17 Range/Units 04:34 04:34 06:57 WBC 13.6 H (3.8-10.6) k/uL Hgb 9.6 L (11.4-16.0) gm/dL Hct 31.7 L (34.0-46.0) % MCH 24.4 L (25.0-35.0) pg MCHC 30.3 L (31.0-37.0) g/dL RDW 17.4 H (11.5-15.5) % Neutrophils # 9.8 H (1.3-7.7) k/uL Eosinophils # 1.0 H (0-0.7) k/uL BUN 20 H (7-17) mg/dL Creatinine 0.50 L (0.52-1.04) mg/dL Glucose 142 H (74-99) mg/dL POC Glucose (mg/dL) 176 H (75-99) mg/dL 09/29/17 Range/Units 12:43 WBC (3.8-10.6) k/uL Hgb (11.4-16.0) gm/dL Hct (34.0-46.0) % MCH (25.0-35.0) pg MCHC (31.0-37.0) g/dL RDW (11.5-15.5) % Neutrophils # (1.3-7.7) k/uL Eosinophils # (0-0.7) k/uL BUN (7-17) mg/dL Creatinine (0.52-1.04) mg/dL Glucose (74-99) mg/dL POC Glucose (mg/dL) 210 H (75-99) mg/dL Microbiology - Last 24 Hours (Table) 09/27/17 19:26 Urine Culture - Preliminary Urine,Catheterized Group D Enterococcus 09/27/17 19:00 Blood Culture - Preliminary Blood No Growth after 24 hours Assessment and Plan (1) Hypertensive emergency Current Visit: Yes Status: Acute Code(s): I16.1 - HYPERTENSIVE EMERGENCY SNOMED Code(s): 807251940937064 (2) Diabetes Current Visit: No Status: Acute Code(s): E11.9 - TYPE 2 DIABETES MELLITUS WITHOUT COMPLICATIONS SNOMED Code(s): 14656233 (3) Hallucinations Current Visit: No Status: Acute Code(s): R44.3 - HALLUCINATIONS, UNSPECIFIED SNOMED Code(s): 2823274 (4) S/P MVR (mitral valve replacement) Current Visit: No Status: Acute Code(s): Z95.2 - PRESENCE OF PROSTHETIC HEART VALVE SNOMED Code(s): 9816431631067 (5) Diastolic CHF Current Visit: Yes Status: Acute Code(s): I50.30 - UNSPECIFIED DIASTOLIC ( CONGESTIVE) HEART FAILURE SNOMED Code(s): 273969411 (6) Aspiration pneumonia Current Visit: Yes Status: Acute Code(s): J69.0 - PNEUMONITIS DUE TO INHALATION OF FOOD AND VOMIT SNOMED Code(s): 848209487 Plan: That seemed to be improvement in mental status. Her blood pressure is better controlled. Chest x-ray shows improvement. Continue current medical therapy.
[2017-09-29 14:57] LABS: Prothrombin Time 35.7 sec (9.0-12.0)
--- NOTE | 2017-09-29 16:48 | P.PN ---
Subjective this is a 72 yo F with pmh of Atrial fibrillation , asthma , Diabetes Mellitus, Hypertesion , hyperlipidemia , sleep apnea on BiPAP/CPAP, h/o breast cancer status post lumpectomy migrains who presents with altered mental status, pt could not provide information so it is obtained from medical records and staff, no family at bed side In the emergency room she was found to be quite hypertensive with the admitting blood pressure of 237/107. She was initiated on a nitroglycerin drip at 10 mcg/ m. She was started on metoprolol 75 mg twice a day. Computed tomography scan of the brain revealed a large old infarct in the right temporal lobe and left occipital lobe. No change compared to previous. No hemorrhage. This x-ray shows evidence of pulmonary edema. She is maintaining good O2 saturations in the 90s on room air. He is seen today in consultation in the intensive care unit. She is difficult to arouse. Very poor historian. White count 16.1. Hemoglobin 8.8. Creatinine 0.50. Her BP is better controlled and now SBP is about 144. she is currently only on metoprolol 75 mg bid with no nitroglycerin drip (stopped) pt can be transferred to general medical floor 09/29/2017 Patient is more awake today, she knows she is in hospital. But she couldn't remember the year, month or date. She is also transfused about person she thinks the president illness Mr. Pacheco. Patient Transferred out of the ICU today. Augmentin has been added by the pulmonary team for her UTI. Pulmonary and cardiology input is appreciated. Objective - Vital Signs Vital signs: Vital Signs Temp 97.8 F 09/29/17 13:00 Pulse 60 09/29/17 13:00 Resp 15 09/29/17 13:00 BP 112/50 09/29/17 13:00 Pulse Ox 100 09/29/17 13:00 Intake & Output 09/28/17 09/29/17 09/29/17 18:59 06:59 18:59 Intake Total 438.9 490 560 Output Total 1080 1010 855 Balance -641.1 -520 -295 Weight 66.8 kg 68 kg Intake: IV 230 140 90 0.9 NaCl 230 140 90 Intake, IV Titration 38.9 Amount Nitroglycerin-D5w Pmx 50 38.9 mg In Dextrose/Water 1 250ml.bag @ 10 MCG/MIN 3 mls/hr IV .Q24H ONE Rx#: [id number] Tube Feeding 80 290 350 Other 90 60 120 Output: Urine 1080 1010 855 Other: Voiding Method Indwelling Catheter Indwelling Catheter Indwelling Catheter - Exam GENERAL: The patient is more awake today , she is alert and oriented to place, but not for time or person. HEENT: Pupils are round and equally reacting to light. EOMI. No scleral icterus. No conjunctival pallor. Normocephalic, atraumatic. No pharyngeal erythema. No thyromegaly. CARDIOVASCULAR: S1 and S2 present. No murmurs, rubs, or gallops. PULMONARY: Chest is clear to auscultation, no wheezing or crackles. ABDOMEN: Soft, nontender, nondistended, normoactive bowel sounds. No palpable organomegaly. MUSCULOSKELETAL: No joint swelling or deformity. EXTREMITIES: No cyanosis, clubbing, or pedal edema. NEUROLOGICAL: pt is confused and delirious , pupils are equal and reactive to light , SKIN: No rashes. - Labs CBC & Chem 7: 09/29/17 04:34 09/29/17 04:34 Labs: Abnormal Lab Results - Last 24 Hours (Table) 09/28/17 09/28/17 09/28/17 Range/Units 18:06 20:20 23:56 WBC (3.8-10.6) k/uL Hgb (11.4-16.0) gm/dL Hct (34.0-46.0) % MCH (25.0-35.0) pg MCHC (31.0-37.0) g/dL RDW (11.5-15.5) % Neutrophils # (1.3-7.7) k/uL Eosinophils # (0-0.7) k/uL PT (9.0-12.0) sec INR (<1.2) BUN (7-17) mg/dL Creatinine (0.52-1.04) mg/dL Glucose (74-99) mg/dL POC Glucose (mg/dL) 185 H 138 H 127 H (75-99) mg/dL 09/29/17 09/29/17 09/29/17 Range/Units 04:34 04:34 06:57 WBC 13.6 H (3.8-10.6) k/uL Hgb 9.6 L (11.4-16.0) gm/dL Hct 31.7 L (34.0-46.0) % MCH 24.4 L (25.0-35.0) pg MCHC 30.3 L (31.0-37.0) g/dL RDW 17.4 H (11.5-15.5) % Neutrophils # 9.8 H (1.3-7.7) k/uL Eosinophils # 1.0 H (0-0.7) k/uL PT (9.0-12.0) sec INR (<1.2) BUN 20 H (7-17) mg/dL Creatinine 0.50 L (0.52-1.04) mg/dL Glucose 142 H (74-99) mg/dL POC Glucose (mg/dL) 176 H (75-99) mg/dL 09/29/17 09/29/17 Range/Units 12:43 14:27 WBC (3.8-10.6) k/uL Hgb (11.4-16.0) gm/dL Hct (34.0-46.0) % MCH (25.0-35.0) pg MCHC (31.0-37.0) g/dL RDW (11.5-15.5) % Neutrophils # (1.3-7.7) k/uL Eosinophils # (0-0.7) k/uL PT 35.7 H (9.0-12.0) sec INR 4.0 H (<1.2) BUN (7-17) mg/dL Creatinine (0.52-1.04) mg/dL Glucose (74-99) mg/dL POC Glucose (mg/dL) 210 H (75-99) mg/dL Microbiology - Last 24 Hours (Table) 09/27/17 19:26 Urine Culture - Preliminary Urine,Catheterized Group D Enterococcus 09/27/17 19:00 Blood Culture - Preliminary Blood No Growth after 24 hours Assessment and Plan Assessment: Hypertensive emergency acute on chronic diastolic CHF positive jessica supratheraputic INR, with coagulopathy metabolic encephalopathy uncontrolled essential hypertension atrial fibrillation diabetes mellitus, on insulin hyperlipidemia hypertension h/o seizure h/o stroke possible vascular dementia obstructive sleep apnea Plan: this is a 72 yo F who presents with hypertensive emergency and metabolic encephalopathy. continue with the same treatment , continue with symptomatic treatment , resume home medication , monitor lytes and vitals including glucose , c/w diuretics ,c/w insuline, pt is on half the dose in the begining.c/w ISS. hold coumadin while INR is supratherapeutic . CT of the head showed multiple old infact. cardiology consult is appreciated. cardiology consult is appreciated . continue with metaprolol. GI and DVT prophylaxis , further recommendation based upon pt clinical course and progress prognosis is guarded
[2017-09-29 19:03] LABS: Glucose,Whole Blood 209 mg/dL (75-99)
[2017-09-29] MEDS: PRAVASTATIN SODIUM 40 MG TAB PO SCH (20:40)
[2017-09-29] MEDS: PANTOPRAZOLE SODIUM 40 MG GRANULE PKT PO SCH (20:40)
[2017-09-29] MEDS: hydrALAZINE HCL 20 MG/ML 1 ML VIAL IVP PRN (20:43)
[2017-09-29] MEDS ORDERED: WARFARIN 2.5 MG TAB PEG/G-TUBE SCH (21:20)
[2017-09-30] MEDS: INSULIN ASPART 100 UNIT/ML 1 ML 10 ML VIAL SQ SCH ×5 (00:19→23:37)
[2017-09-30 00:33] LABS: Glucose,Whole Blood 239 mg/dL (75-99)
[2017-09-30 06:26] LABS: Anion Gap 6 mmol/L; Blood Urea Nitrogen 22 mg/dL (7-17); Calcium 9.2 mg/dL (8.4-10.2); Carbon Dioxide 29 mmol/L (22-30); Chloride 102 mmol/L (98-107); Glucose 226 mg/dL (74-99); Magnesium 2.1 mg/dL (1.6-2.3); Phosphorus 3.3 mg/dL (2.5-4.5); Potassium 4.2 mmol/L (3.5-5.1); Sodium 137 mmol/L (137-145)
[2017-09-30 06:34] LABS: Anisocytosis Slight; Basophils # (A) 0.1 k/uL (0-0.2); Basophils % (A) 0 %; Eosinophils # (A) 0.7 k/uL (0-0.7); Eosinophils % (A) 4 %; HCT 32.1 % (34.0-46.0); HGB 9.7 gm/dL (11.4-16.0); Hypochromasia Marked; Lymphocytes # (A) 1.6 k/uL (1.0-4.8); Lymphocytes % (A) 10 %; MCH 24.7 pg (25.0-35.0); MCHC 30.2 g/dL (31.0-37.0); MCV 81.7 fL (80.0-100.0); Mean Platelet Volume 7.4; Monocytes # (A) 0.8 k/uL (0-1.0); Monocytes % (A) 5 %; Neutrophils # (A) 12.3 k/uL (1.3-7.7); Neutrophils % (A) 79 %; Platelet Count 374 k/uL (150-450); RBC 3.93 m/uL (3.80-5.40); RDW 17.5 % (11.5-15.5); WBC 15.6 k/uL (3.8-10.6)
[2017-09-30 06:42] LABS: Glucose,Whole Blood 222 mg/dL (75-99)
[2017-09-30 08:35] LABS: INR 2.3 (<1.2); Prothrombin Time 20.5 sec (9.0-12.0)
[2017-09-30] MEDS: AMOXIC-POT CLAV 875-125MG 1 EACH TAB PO SCH ×2 (09:30→20:18)
[2017-09-30] MEDS: POTASSIUM BICARBONATE/CIT AC 20 MEQ TABLET.EFF PO SCH ×2 (09:30→20:19)
[2017-09-30] MEDS: FUROSEMIDE 10 MG/ML 2 ML VIAL IV SCH (09:30)
[2017-09-30] MEDS: METOPROLOL TARTRATE 25 MG TAB PEG/G-TUBE SCH (09:30)
[2017-09-30] MEDS: INSULIN DETEMIR 100 UNIT/ML 10 ML VIAL SQ SCH ×2 (09:30→21:22)
[2017-09-30] MEDS: ASPIRIN 325 MG TAB PO SCH (09:30)
[2017-09-30] MEDS: levETIRAcetam ORAL SOLN 500 MG/5 ML CUP PEG/G-TUBE SCH ×2 (09:30→20:18)
--- NOTE | 2017-09-30 10:52 | XR ---
EXAMINATION TYPE: XR chest 1V DATE OF EXAM: 09/30/2017 COMPARISON: Prior chest 09/29/2017 HISTORY: Congestive heart failure exacerbation, abnormal chest x-ray TECHNIQUE: Single frontal view of the chest is obtained. FINDINGS: Patient is rotated and post median sternotomy. Pacemaker leads are stable, surgical clips noted over the left lower chest. No evident pneumothorax or pleural effusion. Heart size is likely st able. Interstitium is somewhat prominent. IMPRESSION: Correlate for pulmonary venous hypertension and interstitial edema. Follow-up recommende d. Rotated exam.
[2017-09-30 12:12] LABS: Glucose,Whole Blood 290 mg/dL (75-99)
--- NOTE | 2017-09-30 12:41 | P.PN ---
Subjective Progress Note Date: 09/30/17 This is a 72-year-old female with history of previous CVA, atrial fibrillation, diabetes mellitus, hyperlipidemia and also sleep apnea who was living in a nursing facility. She was transferred to the emergency room yesterday with febrile illness after mental status and also hypotension. However when she came to the emergency room blood pressure was high. She was treated on IV nitroglycerin and also started on [id number] mg twice daily. 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 Patient had a CAT scan which showed evidence of previous stroke. Patient's chest x-ray showed evidence of pulmonary edema and possible pneumonia on the right side. Patient was treated with diuretics with improvement of her on an status. Her mental status is improving but still confused. Blood pressure this morning 129/ 56, later on this morning 195/82, heart rate in the 80s, 92% on 1 L of oxygen. White blood cell count 15.6, hemoglobin 9.7, platelet count 374. INR 2.3. Sodium 137, potassium 4.2, BUN 22, creatinine 0.5. Magnesium 2.1. We will discontinue the IV Lasix today and put the patient on Lasix 20 mg by mouth daily. Decrease aspirin 81 mg daily. Objective - Vital Signs Vital signs: Vital Signs Temp 97.0 F L 09/30/17 08:00 Pulse 82 09/30/17 08:00 Resp 18 09/30/17 04:00 BP 195/82 09/30/17 08:00 Pulse Ox 92 L 09/30/17 08:00 Intake & Output 09/29/17 09/30/17 09/30/17 18:59 06:59 18:59 Intake Total 560 130 30 Output Total 855 Balance -295 130 30 Weight 73 kg Intake: IV 90 10 0.9 NaCl 90 10 Tube Feeding 350 120 30 Other 120 Output: Urine 855 Other: Voiding Method Indwelling Catheter Diaper Diaper Incontinent Incontinent # Voids 1 - Exam GENERAL EXAM: Difficult to arouse, comfortable in no apparent distress. HEAD: Normocephalic. EYES: Normal reaction of pupils, equal size. NOSE: Clear with pink turbinates. THROAT: No erythema or exudates. NECK: No masses, no JVD. CHEST: No chest wall deformity. LUNGS: Equal air entry with faint crackles in the posterior bases. CVS: S1 and S2 normal with an audible murmur, regular rhythm. ABDOMEN: No hepatosplenomegaly, normal bowel sounds, no guarding or rigidity. SPINE: No scoliosis or deformity SKIN: No rashes CENTRAL NERVOUS SYSTEM: Difficult to assess. EXTREMITIES: There is no peripheral edema. No clubbing, no cyanosis. Peripheral pulses are intact. - Labs CBC & Chem 7: 09/30/17 05:49 09/30/17 05:49 Labs: Abnormal Lab Results - Last 24 Hours (Table) 09/29/17 09/29/17 09/29/17 Range/Units 12:43 14:27 19:01 WBC (3.8-10.6) k/uL Hgb (11.4-16.0) gm/dL Hct (34.0-46.0) % MCH (25.0-35.0) pg MCHC (31.0-37.0) g/dL RDW (11.5-15.5) % Neutrophils # (1.3-7.7) k/uL PT 35.7 H (9.0-12.0) sec INR 4.0 H (<1.2) BUN (7-17) mg/dL Creatinine (0.52-1.04) mg/dL Glucose (74-99) mg/dL POC Glucose (mg/dL) 210 H 209 H (75-99) mg/dL 09/30/17 09/30/17 09/30/17 Range/Units 00:14 05:49 05:49 WBC 15.6 H (3.8-10.6) k/uL Hgb 9.7 L (11.4-16.0) gm/dL Hct 32.1 L (34.0-46.0) % MCH 24.7 L (25.0-35.0) pg MCHC 30.2 L (31.0-37.0) g/dL RDW 17.5 H (11.5-15.5) % Neutrophils # 12.3 H (1.3-7.7) k/uL PT (9.0-12.0) sec INR (<1.2) BUN 22 H (7-17) mg/dL Creatinine 0.50 L (0.52-1.04) mg/dL Glucose 226 H (74-99) mg/dL POC Glucose (mg/dL) 239 H (75-99) mg/dL 09/30/17 09/30/17 09/30/17 Range/Units 05:49 06:15 12:01 WBC (3.8-10.6) k/uL Hgb (11.4-16.0) gm/dL Hct (34.0-46.0) % MCH (25.0-35.0) pg MCHC (31.0-37.0) g/dL RDW (11.5-15.5) % Neutrophils # (1.3-7.7) k/uL PT 20.5 H (9.0-12.0) sec INR 2.3 H (<1.2) BUN (7-17) mg/dL Creatinine (0.52-1.04) mg/dL Glucose (74-99) mg/dL POC Glucose (mg/dL) 222 H 290 H (75-99) mg/dL Microbiology - Last 24 Hours (Table) 09/27/17 19:26 Urine Culture - Final Urine,Catheterized Enterococcus faecalis 09/27/17 19:00 Blood Culture - Preliminary Blood No Growth after 48 hours Assessment and Plan Plan: Assessment #1 Hypertensive emergency #2 Previous history of cerebrovascular accident #3 History of atrial fibrillation, paroxysmal #4 Diabetes mellitus #5 Hyperlipidemia #6 Hypertension #7 Obstructive sleep apnea syndrome #8 Status post pacemaker implantation #9 Previous history of tobacco use #10 History of breast cancer, status post left lumpectomy #11 Migraines cephalgia #12 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 Start the patient on Norvasc 10 mg daily. DNP note has been reviewed, I agree with a documented findings and plan of care. Patient was seen and examined.
--- NOTE | 2017-09-30 13:29 | P.PN ---
Subjective this is a 72 yo F with pmh of Atrial fibrillation , asthma , Diabetes Mellitus, Hypertesion , hyperlipidemia , sleep apnea on BiPAP/CPAP, h/o breast cancer status post lumpectomy migrains who presents with altered mental status, pt could not provide information so it is obtained from medical records and staff, no family at bed side In the emergency room she was found to be quite hypertensive with the admitting blood pressure of 237/107. She was initiated on a nitroglycerin drip at 10 mcg/ m. She was started on metoprolol 75 mg twice a day. Computed tomography scan of the brain revealed a large old infarct in the right temporal lobe and left occipital lobe. No change compared to previous. No hemorrhage. This x-ray shows evidence of pulmonary edema. She is maintaining good O2 saturations in the 90s on room air. He is seen today in consultation in the intensive care unit. She is difficult to arouse. Very poor historian. White count 16.1. Hemoglobin 8.8. Creatinine 0.50. Her BP is better controlled and now SBP is about 144. she is currently only on metoprolol 75 mg bid with no nitroglycerin drip (stopped) pt can be transferred to general medical floor 09/29/2017 Patient is more awake today, she knows she is in hospital. But she couldn't remember the year, month or date. She is also transfused about person she thinks the president illness Mr. Pacheco. Patient Transferred out of the ICU today. Augmentin has been added by the pulmonary team for her UTI. Pulmonary and cardiology input is appreciated. 09/30/2017 pt still awake but confused , cardiology have evaluated pt today and plan to c/ w iv lasix and with oral diuretics. norvasc 10 mg is added , UC: enterococcus , susceptible to many abx. pt is on augmentin but still with high leukoctyosis , CXR: interstitial edema and pt is on lasix INR 2.3, resume coumadin , increase lantus to 35 U BID for uncontrolled sugar Objective - Vital Signs Vital signs: Vital Signs Temp 97.0 F L 09/30/17 08:00 Pulse 82 09/30/17 08:00 Resp 18 09/30/17 04:00 BP 195/82 09/30/17 08:00 Pulse Ox 92 L 09/30/17 08:00 Intake & Output 09/29/17 09/30/17 09/30/17 18:59 06:59 18:59 Intake Total 560 130 30 Output Total 855 Balance -295 130 30 Weight 73 kg Intake: IV 90 10 0.9 NaCl 90 10 Tube Feeding 350 120 30 Other 120 Output: Urine 855 Other: Voiding Method Indwelling Catheter Diaper Diaper Incontinent Incontinent # Voids 1 - Exam GENERAL: The patient is more awake today , she is alert and oriented to place, but not for time or person. HEENT: Pupils are round and equally reacting to light. EOMI. No scleral icterus. No conjunctival pallor. Normocephalic, atraumatic. No pharyngeal erythema. No thyromegaly. CARDIOVASCULAR: S1 and S2 present. No murmurs, rubs, or gallops. PULMONARY: Chest is clear to auscultation, no wheezing or crackles. ABDOMEN: Soft, nontender, nondistended, normoactive bowel sounds. No palpable organomegaly. MUSCULOSKELETAL: No joint swelling or deformity. EXTREMITIES: No cyanosis, clubbing, or pedal edema. NEUROLOGICAL: pt is confused and delirious , pupils are equal and reactive to light , SKIN: No rashes. - Labs CBC & Chem 7: 09/30/17 05:49 09/30/17 05:49 Labs: Abnormal Lab Results - Last 24 Hours (Table) 09/29/17 09/29/17 09/30/17 Range/Units 14:27 19:01 00:14 WBC (3.8-10.6) k/uL Hgb (11.4-16.0) gm/dL Hct (34.0-46.0) % MCH (25.0-35.0) pg MCHC (31.0-37.0) g/dL RDW (11.5-15.5) % Neutrophils # (1.3-7.7) k/uL PT 35.7 H (9.0-12.0) sec INR 4.0 H (<1.2) BUN (7-17) mg/dL Creatinine (0.52-1.04) mg/dL Glucose (74-99) mg/dL POC Glucose (mg/dL) 209 H 239 H (75-99) mg/dL 09/30/17 09/30/17 09/30/17 Range/Units 05:49 05:49 05:49 WBC 15.6 H (3.8-10.6) k/uL Hgb 9.7 L (11.4-16.0) gm/dL Hct 32.1 L (34.0-46.0) % MCH 24.7 L (25.0-35.0) pg MCHC 30.2 L (31.0-37.0) g/dL RDW 17.5 H (11.5-15.5) % Neutrophils # 12.3 H (1.3-7.7) k/uL PT 20.5 H (9.0-12.0) sec INR 2.3 H (<1.2) BUN 22 H (7-17) mg/dL Creatinine 0.50 L (0.52-1.04) mg/dL Glucose 226 H (74-99) mg/dL POC Glucose (mg/dL) (75-99) mg/dL 09/30/17 09/30/17 Range/Units 06:15 12:01 WBC (3.8-10.6) k/uL Hgb (11.4-16.0) gm/dL Hct (34.0-46.0) % MCH (25.0-35.0) pg MCHC (31.0-37.0) g/dL RDW (11.5-15.5) % Neutrophils # (1.3-7.7) k/uL PT (9.0-12.0) sec INR (<1.2) BUN (7-17) mg/dL Creatinine (0.52-1.04) mg/dL Glucose (74-99) mg/dL POC Glucose (mg/dL) 222 H 290 H (75-99) mg/dL Microbiology - Last 24 Hours (Table) 09/27/17 19:26 Urine Culture - Final Urine,Catheterized Enterococcus faecalis 09/27/17 19:00 Blood Culture - Preliminary Blood No Growth after 48 hours Assessment and Plan Assessment: Hypertensive emergency acute on chronic diastolic CHF positive jessica supratheraputic INR, with coagulopathy metabolic encephalopathy uncontrolled essential hypertension atrial fibrillation diabetes mellitus, on insulin hyperlipidemia hypertension h/o seizure h/o stroke possible vascular dementia obstructive sleep apnea Plan: this is a 72 yo F who presents with hypertensive emergency and metabolic encephalopathy. continue with the same treatment , continue with symptomatic treatment , resume home medication , monitor lytes and vitals including glucose , c/w diuretics ,c/w insuline, pt is on half the dose in the begining.c/w ISS. hold coumadin while INR is supratherapeutic . CT of the head showed multiple old infact. cardiology consult is appreciated. cardiology consult is appreciated . continue with metaprolol. GI and DVT prophylaxis , further recommendation based upon pt clinical course and progress prognosis is guarded
[2017-09-30] MEDS ORDERED: INSULIN DETEMIR 100 UNIT/ML 10 ML VIAL SQ ONE (13:30)
--- NOTE | 2017-09-30 14:00 | P.PN ---
Subjective Progress Note Date: 09/30/17 Principal diagnosis: Hypertensive emergency This is a 72-year-old female patient who resides in extended care facility and has a history of CVA, atrial fibrillation, diabetes mellitus, hyperlipidemia, hypertension, obstructive sleep apnea, L3 placement, pacemaker implantation, former smoker. She was transferred here to the emergency room yesterday with febrile illness, altered mental status and hypotension. In the emergency room she was found to be quite hypertensive with the admitting blood pressure of 237/ 107. She was initiated on a nitroglycerin drip at 10 mcg/m. She was started on metoprolol 75 mg twice a day. Computed tomography scan of the brain revealed a large old infarct in the right temporal lobe and left occipital lobe. No change compared to previous. No hemorrhage. This x-ray shows evidence of pulmonary edema. She is maintaining good O2 saturations in the 90s on room air. He is seen today in consultation in the intensive care unit. She is difficult to arouse. Very poor historian. White count 16.1. Hemoglobin 8.8. Creatinine 0.50. Her blood pressure has improved currently at 124/56. Nitroglycerin drip has been weaned off. Progress note dated 09/29/2017 72-year-old female who resides in an extended care facility and has a history of CVA, atrial fibrillation, diabetes mellitus, hyperlipidemia, hypertension, obstructive sleep apnea syndrome, pacemaker implantation, and who was a former smoker. Patient presented to the emergency department with hypertension out of control. Blood pressure was 237/107. She was started initially on nitroglycerin at 5 mcg/m. She was also given metoprolol 75 mm twice a day. Computed tomography scan showed a large old infarct in the right temporal lobe and left occipital lobe. Nitroglycerin was increased to 10 g an hour and she was transferred to the ICU. There is nothing apparently acute on the computed tomography scan of the brain. The patient is doing much better now. Her blood pressures much better control. She is a poor historian. Current vital signs include a heart rate is 62 blood pressure 136/62 with a mean of 95% saturation on 1 L of oxygen at 99% and a respiratory rate of 19 breaths per minute. Temperature is normal. The urinalysis is positive for group D enterococcus infection. Patient is seen again today 09/30/2017 in follow-up on the selective care unit. She is more awake and alert. Maintaining good O2 saturations in the 90s on 1 L/m per nasal cannula. Chest x-ray reveals pulmonary venous hypertension and some interstitial edema. She's been afebrile. The blood pressure has been better controlled. Urine was positive for Enterococcus faecalis. Blood culture reveals no growth. White count 15.6. Hemoglobin 9.7. INR 2.3. Creatinine 0.50. Currently on Augmentin. Objective - Vital Signs Vital signs: Vital Signs Temp 97.0 F L 09/30/17 08:00 Pulse 82 09/30/17 08:00 Resp 18 09/30/17 04:00 BP 195/82 09/30/17 08:00 Pulse Ox 92 L 09/30/17 08:00 Intake & Output 09/29/17 09/30/17 09/30/17 18:59 06:59 18:59 Intake Total 560 130 30 Output Total 855 Balance -295 130 30 Weight 73 kg Intake: IV 90 10 0.9 NaCl 90 10 Tube Feeding 350 120 30 Other 120 Output: Urine 855 Other: Voiding Method Indwelling Catheter Diaper Diaper Incontinent Incontinent # Voids 1 - Exam No acute distress, oriented 3. Nasal O2 in place. HEENT examination is grossly unremarkable. Mucous membranes are moist. No oral lesions. Neck supple. Full range of motion. No adenopathy thyromegaly or neck vein distention. Cardiovascular examination reveals regular rhythm rate. S1-S2 normal. No S3 or S4. No discernible murmur noted. Lungs reveal clear breath sounds. Her sounds are equal bilaterally. No adventitious lung sounds including wheezes rhonchi or crackles. Abdomen soft bowel sounds are heard. No masses or tenderness. Extremities are intact. No cyanosis clubbing or edema. Skin is without rash or lesion. Neurologic examination is brief but nonfocal. - Labs CBC & Chem 7: 09/30/17 05:49 09/30/17 05:49 Labs: Abnormal Lab Results - Last 24 Hours (Table) 09/29/17 09/29/17 09/30/17 Range/Units 14:27 19:01 00:14 WBC (3.8-10.6) k/uL Hgb (11.4-16.0) gm/dL Hct (34.0-46.0) % MCH (25.0-35.0) pg MCHC (31.0-37.0) g/dL RDW (11.5-15.5) % Neutrophils # (1.3-7.7) k/uL PT 35.7 H (9.0-12.0) sec INR 4.0 H (<1.2) BUN (7-17) mg/dL Creatinine (0.52-1.04) mg/dL Glucose (74-99) mg/dL POC Glucose (mg/dL) 209 H 239 H (75-99) mg/dL 09/30/17 09/30/17 09/30/17 Range/Units 05:49 05:49 05:49 WBC 15.6 H (3.8-10.6) k/uL Hgb 9.7 L (11.4-16.0) gm/dL Hct 32.1 L (34.0-46.0) % MCH 24.7 L (25.0-35.0) pg MCHC 30.2 L (31.0-37.0) g/dL RDW 17.5 H (11.5-15.5) % Neutrophils # 12.3 H (1.3-7.7) k/uL PT 20.5 H (9.0-12.0) sec INR 2.3 H (<1.2) BUN 22 H (7-17) mg/dL Creatinine 0.50 L (0.52-1.04) mg/dL Glucose 226 H (74-99) mg/dL POC Glucose (mg/dL) (75-99) mg/dL 09/30/17 09/30/17 Range/Units 06:15 12:01 WBC (3.8-10.6) k/uL Hgb (11.4-16.0) gm/dL Hct (34.0-46.0) % MCH (25.0-35.0) pg MCHC (31.0-37.0) g/dL RDW (11.5-15.5) % Neutrophils # (1.3-7.7) k/uL PT (9.0-12.0) sec INR (<1.2) BUN (7-17) mg/dL Creatinine (0.52-1.04) mg/dL Glucose (74-99) mg/dL POC Glucose (mg/dL) 222 H 290 H (75-99) mg/dL Microbiology - Last 24 Hours (Table) 09/27/17 19:26 Urine Culture - Final Urine,Catheterized Enterococcus faecalis 09/27/17 19:00 Blood Culture - Preliminary Blood No Growth after 48 hours Assessment and Plan Assessment: Impression: #1 Hypertensive emergency requiring nitroglycerin drip, recovered. #2 Acute exacerbation of diastolic congestive heart failure secondary to above. #3 Altered mental status. #4 Previous CVA. #5 Diabetes mellitus. #6 History of atrial fibrillation status post permanent pacemaker implantation. #7 History of valve replacement. #8 Hypertension. #9 Hyperlipidemia. #10 Obstructive sleep apnea. #11 Poor overall functional performance based on the above-mentioned multiple comorbidities, extended care facility resident. Plan: The patient was seen and evaluated by Dr. Park. Chest x-ray and labs were reviewed. Continue with her current medications. We will increase her activity as tolerated. We'll continue to follow. I, the cosigning physician, performed a history & physical examination of the patient. Lungs sounds with crackles in the posterior bases. Maintaining good O2 saturations in the 90s on room air. I discussed the assessment and plan of care with my nurse practitioner, Colleen Mckay. I attest to the above note as dictated by her.
[2017-09-30] MEDS: ACETAMINOPHEN TAB 325 MG TAB PEG/G-TUBE PRN (17:09)
[2017-09-30 18:28] LABS: Glucose,Whole Blood 223 mg/dL (75-99)
[2017-09-30] MEDS: hydrALAZINE HCL 20 MG/ML 1 ML VIAL IVP PRN ×2 (18:41→23:21)
[2017-09-30] MEDS: METOPROLOL TARTRATE 50 MG TAB PO SCH (20:18)
[2017-09-30] MEDS: amLODIPine 5 MG TAB PO SCH (20:18)
[2017-09-30] MEDS: PANTOPRAZOLE SODIUM 40 MG GRANULE PKT PO SCH (20:19)
[2017-09-30] MEDS: PRAVASTATIN SODIUM 40 MG TAB PO SCH (20:19)
[2017-09-30 23:45] LABS: Glucose,Whole Blood 201 mg/dL (75-99)
[2017-10-01] MEDS: ACETAMINOPHEN TAB 325 MG TAB PEG/G-TUBE PRN (04:41)
[2017-10-01] MEDS: hydrALAZINE HCL 20 MG/ML 1 ML VIAL IVP PRN (04:42)
[2017-10-01] MEDS: INSULIN ASPART 100 UNIT/ML 1 ML 10 ML VIAL SQ SCH ×4 (05:57→23:47)
[2017-10-01 06:06] LABS: Glucose,Whole Blood 254 mg/dL (75-99)
[2017-10-01 06:08] LABS: Anisocytosis Slight; Basophils # (A) 0.1 k/uL (0-0.2); Basophils % (A) 0 %; Eosinophils # (A) 0.6 k/uL (0-0.7); Eosinophils % (A) 4 %; HCT 36.8 % (34.0-46.0); HGB 10.9 gm/dL (11.4-16.0); Hypochromasia Marked; Lymphocytes # (A) 1.7 k/uL (1.0-4.8); Lymphocytes % (A) 11 %; MCH 24.3 pg (25.0-35.0); MCHC 29.6 g/dL (31.0-37.0); Mean Platelet Volume 7.5; Monocytes # (A) 0.7 k/uL (0-1.0); Monocytes % (A) 5 %; Neutrophils # (A) 12.7 k/uL (1.3-7.7); Neutrophils % (A) 80 %; Platelet Count 386 k/uL (150-450); RBC 4.49 m/uL (3.80-5.40); RDW 16.9 % (11.5-15.5); WBC 15.9 k/uL (3.8-10.6)
[2017-10-01 06:23] LABS: Anion Gap 9 mmol/L; Blood Urea Nitrogen 24 mg/dL (7-17); Calcium 9.3 mg/dL (8.4-10.2); Carbon Dioxide 27 mmol/L (22-30); Chloride 100 mmol/L (98-107); Glucose 222 mg/dL (74-99); Phosphorus 3.5 mg/dL (2.5-4.5); Potassium 4.6 mmol/L (3.5-5.1); Sodium 136 mmol/L (137-145)
[2017-10-01] MEDS: levETIRAcetam ORAL SOLN 500 MG/5 ML CUP PEG/G-TUBE SCH ×2 (09:00→21:24)
[2017-10-01] MEDS: amLODIPine 5 MG TAB PO SCH (10:08)
[2017-10-01] MEDS: POTASSIUM BICARBONATE/CIT AC 20 MEQ TABLET.EFF PO SCH ×2 (10:09→21:25)
[2017-10-01] MEDS: AMOXIC-POT CLAV 875-125MG 1 EACH TAB PO SCH ×2 (10:09→21:24)
[2017-10-01] MEDS: ASPIRIN 81 MG PO SCH (10:09)
[2017-10-01] MEDS: FUROSEMIDE 20 MG TAB PO SCH (10:09)
[2017-10-01] MEDS: METOPROLOL TARTRATE 50 MG TAB PO SCH ×2 (10:10→21:25)
[2017-10-01] MEDS: INSULIN DETEMIR 100 UNIT/ML 10 ML VIAL SQ SCH ×2 (10:16→21:26)
[2017-10-01 12:17] LABS: Glucose,Whole Blood 269 mg/dL (75-99)
--- NOTE | 2017-10-01 14:05 | P.PN ---
Subjective Progress Note Date: 10/01/17 This is a 72-year-old female with history of previous CVA, atrial fibrillation, diabetes mellitus, hyperlipidemia and also sleep apnea who was living in a nursing facility. She was transferred to the emergency room yesterday with febrile illness after mental status and also hypotension. However when she came to the emergency room blood pressure was high. She was treated on IV nitroglycerin and also started on [id number] mg twice daily. 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 Patient had a CAT scan which showed evidence of previous stroke. Patient's chest x-ray showed evidence of pulmonary edema and possible pneumonia on the right side. Patient was treated with diuretics with improvement of her on an status. Her mental status is improving but still confused. Blood pressure this morning 129/ 56, later on this morning 195/82, heart rate in the 80s, 92% on 1 L of oxygen. White blood cell count 15.6, hemoglobin 9.7, platelet count 374. INR 2.3. Sodium 137, potassium 4.2, BUN 22, creatinine 0.5. Magnesium 2.1. We will discontinue the IV Lasix today and put the patient on Lasix 20 mg by mouth daily. Decrease aspirin 81 mg daily. 10/01/2017 Patient seen and examined this morning, blood pressure in the right arm 180/70, left arm 114/58. White blood cell count 15.9, hemoglobin 10.9, platelet count 386. Sodium 136, potassium 4.6, BUN 24, creatinine 0.5, magnesium 2.0. Objective - Vital Signs Vital signs: Vital Signs Temp 97.6 F 10/01/17 04:00 Pulse 70 10/01/17 04:00 Resp 18 10/01/17 04:00 BP 181/78 10/01/17 05:08 Pulse Ox 97 10/01/17 04:00 Intake & Output 09/30/17 10/01/17 10/01/17 18:59 06:59 18:59 Intake Total 120 90 Balance 120 90 Weight 71 kg Intake: IV 30 0.9 NaCl 30 Tube Feeding 90 90 Other: Voiding Method Diaper Diaper Incontinent Incontinent # Voids 0 - Exam GENERAL EXAM: Difficult to arouse, comfortable in no apparent distress. HEAD: Normocephalic. EYES: Normal reaction of pupils, equal size. NOSE: Clear with pink turbinates. THROAT: No erythema or exudates. NECK: No masses, no JVD. CHEST: No chest wall deformity. LUNGS: Equal air entry with faint crackles in the posterior bases. CVS: S1 and S2 normal with an audible murmur, regular rhythm. ABDOMEN: No hepatosplenomegaly, normal bowel sounds, no guarding or rigidity. SPINE: No scoliosis or deformity SKIN: No rashes CENTRAL NERVOUS SYSTEM: Difficult to assess. EXTREMITIES: There is no peripheral edema. No clubbing, no cyanosis. Peripheral pulses are intact. - Labs CBC & Chem 7: 10/01/17 05:43 10/01/17 05:43 Labs: Abnormal Lab Results - Last 24 Hours (Table) 09/30/17 09/30/17 10/01/17 Range/Units 18:07 23:34 05:43 WBC 15.9 H (3.8-10.6) k/uL Hgb 10.9 L (11.4-16.0) gm/dL MCH 24.3 L (25.0-35.0) pg MCHC 29.6 L (31.0-37.0) g/dL RDW 16.9 H (11.5-15.5) % Neutrophils # 12.7 H (1.3-7.7) k/uL Sodium (137-145) mmol/L BUN (7-17) mg/dL Creatinine (0.52-1.04) mg/dL Glucose (74-99) mg/dL POC Glucose (mg/dL) 223 H 201 H (75-99) mg/dL 10/01/17 10/01/17 10/01/17 Range/Units 05:43 05:54 11:47 WBC (3.8-10.6) k/uL Hgb (11.4-16.0) gm/dL MCH (25.0-35.0) pg MCHC (31.0-37.0) g/dL RDW (11.5-15.5) % Neutrophils # (1.3-7.7) k/uL Sodium 136 L (137-145) mmol/L BUN 24 H (7-17) mg/dL Creatinine 0.50 L (0.52-1.04) mg/dL Glucose 222 H (74-99) mg/dL POC Glucose (mg/dL) 254 H 269 H (75-99) mg/dL Microbiology - Last 24 Hours (Table) 09/27/17 19:00 Blood Culture - Preliminary Blood No Growth after 72 hours Assessment and Plan Plan: Assessment #1 Hypertensive emergency #2 Previous history of cerebrovascular accident #3 History of atrial fibrillation, paroxysmal #4 Diabetes mellitus #5 Hyperlipidemia #6 Hypertension #7 Obstructive sleep apnea syndrome #8 Status post pacemaker implantation #9 Previous history of tobacco use #10 History of breast cancer, status post left lumpectomy #11 Migraines cephalgia #12 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 We will continue current medications and follow this patient along with you now on an as -needed basis only, please don't hesitate to call with any questions. DNP note has been reviewed, I agree with a documented findings and plan of care. Patient was seen and examined.
--- NOTE | 2017-10-01 14:36 | P.PN ---
Subjective Progress Note Date: 10/01/17 Principal diagnosis: Hypertensive emergency This is a 72-year-old female patient who resides in extended care facility and has a history of CVA, atrial fibrillation, diabetes mellitus, hyperlipidemia, hypertension, obstructive sleep apnea, L3 placement, pacemaker implantation, former smoker. She was transferred here to the emergency room yesterday with febrile illness, altered mental status and hypotension. In the emergency room she was found to be quite hypertensive with the admitting blood pressure of 237/ 107. She was initiated on a nitroglycerin drip at 10 mcg/m. She was started on metoprolol 75 mg twice a day. Computed tomography scan of the brain revealed a large old infarct in the right temporal lobe and left occipital lobe. No change compared to previous. No hemorrhage. This x-ray shows evidence of pulmonary edema. She is maintaining good O2 saturations in the 90s on room air. He is seen today in consultation in the intensive care unit. She is difficult to arouse. Very poor historian. White count 16.1. Hemoglobin 8.8. Creatinine 0.50. Her blood pressure has improved currently at 124/56. Nitroglycerin drip has been weaned off. Progress note dated 09/29/2017 72-year-old female who resides in an extended care facility and has a history of CVA, atrial fibrillation, diabetes mellitus, hyperlipidemia, hypertension, obstructive sleep apnea syndrome, pacemaker implantation, and who was a former smoker. Patient presented to the emergency department with hypertension out of control. Blood pressure was 237/107. She was started initially on nitroglycerin at 5 mcg/m. She was also given metoprolol 75 mm twice a day. Computed tomography scan showed a large old infarct in the right temporal lobe and left occipital lobe. Nitroglycerin was increased to 10 g an hour and she was transferred to the ICU. There is nothing apparently acute on the computed tomography scan of the brain. The patient is doing much better now. Her blood pressures much better control. She is a poor historian. Current vital signs include a heart rate is 62 blood pressure 136/62 with a mean of 95% saturation on 1 L of oxygen at 99% and a respiratory rate of 19 breaths per minute. Temperature is normal. The urinalysis is positive for group D enterococcus infection. Patient is seen again today 09/30/2017 in follow-up on the selective care unit. She is more awake and alert. Maintaining good O2 saturations in the 90s on 1 L/m per nasal cannula. Chest x-ray reveals pulmonary venous hypertension and some interstitial edema. She's been afebrile. The blood pressure has been better controlled. Urine was positive for Enterococcus faecalis. Blood culture reveals no growth. White count 15.6. Hemoglobin 9.7. INR 2.3. Creatinine 0.50. Currently on Augmentin. The patient is seen again today 10/01/2017 in follow-up on the selective care unit. She arouses to verbal stimuli. Somewhat drowsy currently. She denies any shortness of breath, cough or congestion. No chest pain or palpitations. She is maintaining good O2 saturations in the upper 90s on 1 L/m per nasal cannula she's been afebrile. Hemodynamically stable. White count 15.9. Hemoglobin 10.9. Creatinine 0.50. Objective - Vital Signs Vital signs: Vital Signs Temp 97.6 F 10/01/17 04:00 Pulse 70 10/01/17 04:00 Resp 18 10/01/17 04:00 BP 181/78 10/01/17 05:08 Pulse Ox 97 10/01/17 04:00 Intake & Output 09/30/17 10/01/17 10/01/17 18:59 06:59 18:59 Intake Total 120 90 Balance 120 90 Weight 71 kg 71 kg Intake: IV 30 0.9 NaCl 30 Tube Feeding 90 90 Other: Voiding Method Diaper Diaper Incontinent Incontinent # Voids 0 - Exam No acute distress, oriented 2. Nasal O2 in place. HEENT examination is grossly unremarkable. Mucous membranes are moist. No oral lesions. Neck supple. Full range of motion. No adenopathy thyromegaly or neck vein distention. Cardiovascular examination reveals regular rhythm rate. S1-S2 normal. No S3 or S4. No discernible murmur noted. Lungs reveal clear breath sounds. Her sounds are equal bilaterally. No adventitious lung sounds including wheezes rhonchi or crackles. Abdomen soft bowel sounds are heard. No masses or tenderness. Extremities are intact. No cyanosis clubbing or edema. Skin is without rash or lesion. Neurologic examination is brief but nonfocal. - Labs CBC & Chem 7: 10/01/17 05:43 10/01/17 05:43 Labs: Abnormal Lab Results - Last 24 Hours (Table) 09/30/17 09/30/17 10/01/17 Range/Units 18:07 23:34 05:43 WBC 15.9 H (3.8-10.6) k/uL Hgb 10.9 L (11.4-16.0) gm/dL MCH 24.3 L (25.0-35.0) pg MCHC 29.6 L (31.0-37.0) g/dL RDW 16.9 H (11.5-15.5) % Neutrophils # 12.7 H (1.3-7.7) k/uL Sodium (137-145) mmol/L BUN (7-17) mg/dL Creatinine (0.52-1.04) mg/dL Glucose (74-99) mg/dL POC Glucose (mg/dL) 223 H 201 H (75-99) mg/dL 10/01/17 10/01/17 10/01/17 Range/Units 05:43 05:54 11:47 WBC (3.8-10.6) k/uL Hgb (11.4-16.0) gm/dL MCH (25.0-35.0) pg MCHC (31.0-37.0) g/dL RDW (11.5-15.5) % Neutrophils # (1.3-7.7) k/uL Sodium 136 L (137-145) mmol/L BUN 24 H (7-17) mg/dL Creatinine 0.50 L (0.52-1.04) mg/dL Glucose 222 H (74-99) mg/dL POC Glucose (mg/dL) 254 H 269 H (75-99) mg/dL Microbiology - Last 24 Hours (Table) 09/27/17 19:00 Blood Culture - Preliminary Blood No Growth after 72 hours Assessment and Plan Assessment: Impression: #1 Hypertensive emergency requiring nitroglycerin drip, recovered. #2 Acute exacerbation of diastolic congestive heart failure secondary to above. #3 Altered mental status. #4 Previous CVA. #5 Diabetes mellitus. #6 History of atrial fibrillation status post permanent pacemaker implantation. #7 History of valve replacement. #8 Hypertension. #9 Hyperlipidemia. #10 Obstructive sleep apnea. #11 Poor overall functional performance based on the above-mentioned multiple comorbidities, extended care facility resident. Plan: The patient was seen and evaluated by Dr. Park. She remains stable from the pulmonary standpoint. Continue with her current medications. We will see the patient on as-needed basis. I, the cosigning physician, performed a history & physical examination of the patient. Lungs sounds with crackles in the posterior bases. Maintaining good O2 saturations in the 90s on room air. I discussed the assessment and plan of care with my nurse practitioner, Colleen Mckay. I attest to the above note as dictated by her.
[2017-10-01 16:51] LABS: Glucose,Whole Blood 249 mg/dL (75-99)
[2017-10-01] MEDS: PRAVASTATIN SODIUM 40 MG TAB PO SCH (21:25)
[2017-10-01] MEDS: PANTOPRAZOLE SODIUM 40 MG GRANULE PKT PO SCH (21:25)
[2017-10-01 21:33] LABS: Glucose,Whole Blood 251 mg/dL (75-99)
[2017-10-01 23:51] LABS: Glucose,Whole Blood 238 mg/dL (75-99)
[2017-10-02 06:04] LABS: Glucose,Whole Blood 182 mg/dL (75-99)
[2017-10-02] MEDS: INSULIN ASPART 100 UNIT/ML 1 ML 10 ML VIAL SQ SCH ×3 (06:11→18:43)
[2017-10-02 06:53] LABS: Anisocytosis Slight; Basophils # (A) 0.1 k/uL (0-0.2); Basophils % (A) 0 %; Eosinophils # (A) 0.8 k/uL (0-0.7); Eosinophils % (A) 6 %; HCT 35.4 % (34.0-46.0); HGB 10.5 gm/dL (11.4-16.0); Hypochromasia Marked; Lymphocytes # (A) 2.1 k/uL (1.0-4.8); Lymphocytes % (A) 15 %; MCH 24.2 pg (25.0-35.0); MCHC 29.6 g/dL (31.0-37.0); MCV 81.6 fL (80.0-100.0); Mean Platelet Volume 7.4; Monocytes # (A) 0.7 k/uL (0-1.0); Monocytes % (A) 5 %; Neutrophils # (A) 10.2 k/uL (1.3-7.7); Neutrophils % (A) 73 %; Platelet Count 376 k/uL (150-450); RBC 4.34 m/uL (3.80-5.40); RDW 17.4 % (11.5-15.5); WBC 13.9 k/uL (3.8-10.6)
[2017-10-02 07:07] LABS: Anion Gap 6 mmol/L; Blood Urea Nitrogen 28 mg/dL (7-17); Calcium 9.3 mg/dL (8.4-10.2); Carbon Dioxide 31 mmol/L (22-30); Chloride 102 mmol/L (98-107); Glucose 174 mg/dL (74-99); Magnesium 2.2 mg/dL (1.6-2.3); Phosphorus 3.5 mg/dL (2.5-4.5); Potassium 4.7 mmol/L (3.5-5.1); Sodium 139 mmol/L (137-145)
[2017-10-02] MEDS: METOPROLOL TARTRATE 50 MG TAB PO SCH ×2 (09:06→20:19)
[2017-10-02] MEDS: levETIRAcetam ORAL SOLN 500 MG/5 ML CUP PEG/G-TUBE SCH ×2 (09:06→20:19)
[2017-10-02] MEDS: POTASSIUM BICARBONATE/CIT AC 20 MEQ TABLET.EFF PO SCH ×2 (09:07→20:19)
[2017-10-02] MEDS: AMOXIC-POT CLAV 875-125MG 1 EACH TAB PO SCH ×2 (09:07→20:19)
[2017-10-02] MEDS: FUROSEMIDE 20 MG TAB PO SCH (09:07)
[2017-10-02] MEDS: ASPIRIN 81 MG PO SCH (09:08)
[2017-10-02] MEDS: amLODIPine 5 MG TAB PO SCH (09:08)
[2017-10-02] MEDS: INSULIN DETEMIR 100 UNIT/ML 10 ML VIAL SQ SCH ×2 (09:14→21:42)
--- NOTE | 2017-10-02 11:05 | P.PN ---
Subjective Date of service : 10/01/2017 this is a 72 yo F with pmh of Atrial fibrillation , asthma , Diabetes Mellitus, Hypertesion , hyperlipidemia , sleep apnea on BiPAP/CPAP, h/o breast cancer status post lumpectomy migrains who presents with altered mental status, pt could not provide information so it is obtained from medical records and staff, no family at bed side In the emergency room she was found to be quite hypertensive with the admitting blood pressure of 237/107. She was initiated on a nitroglycerin drip at 10 mcg/ m. She was started on metoprolol 75 mg twice a day. Computed tomography scan of the brain revealed a large old infarct in the right temporal lobe and left occipital lobe. No change compared to previous. No hemorrhage. This x-ray shows evidence of pulmonary edema. She is maintaining good O2 saturations in the 90s on room air. He is seen today in consultation in the intensive care unit. She is difficult to arouse. Very poor historian. White count 16.1. Hemoglobin 8.8. Creatinine 0.50. Her BP is better controlled and now SBP is about 144. she is currently only on metoprolol 75 mg bid with no nitroglycerin drip (stopped) pt can be transferred to general medical floor 09/29/2017 Patient is more awake today, she knows she is in hospital. But she couldn't remember the year, month or date. She is also transfused about person she thinks the president illness Mr. Pacheco. Patient Transferred out of the ICU today. Augmentin has been added by the pulmonary team for her UTI. Pulmonary and cardiology input is appreciated. 09/30/2017 pt still awake but confused , cardiology have evaluated pt today and plan to c/ w iv lasix and with oral diuretics. norvasc 10 mg is added , UC: enterococcus , susceptible to many abx. pt is on augmentin but still with high leukoctyosis , CXR: interstitial edema and pt is on lasix INR 2.3, resume coumadin , increase lantus to 35 U BID for uncontrolled sugar 10/01/2017 pt clinically looks the same , there were concerns for discripancy in blood pressure reading on both arms , cardiology team are following the pt and want to keep checking the bp on both sides for now with every shift. pulmonary input is appreciated c/w same treatment and pt is still on low flow oxygen via nasal cannular , WBC 15.9. Hemoglobin 10.9. Creatinine 0.50 Objective - Vital Signs Vital signs: Vital Signs Temp 98.0 F 10/02/17 04:00 Pulse 77 10/02/17 04:00 Resp 18 10/02/17 04:00 BP 145/56 10/02/17 04:00 Pulse Ox 96 10/02/17 04:00 Intake & Output 10/01/17 10/02/17 10/02/17 18:59 06:59 18:59 Intake Total 60 100 Output Total 1 Balance 60 99 Weight 71 kg 71.3 kg Intake: IV 10 0.9 NaCl 10 Tube Feeding 60 90 Output: Urine/Stool Mix 1 Other: Voiding Method Diaper Diaper Incontinent Incontinent # Voids 1 3 - Exam GENERAL: The patient is more awake today , she is alert and oriented to place, but not for time or person. HEENT: Pupils are round and equally reacting to light. EOMI. No scleral icterus. No conjunctival pallor. Normocephalic, atraumatic. No pharyngeal erythema. No thyromegaly. CARDIOVASCULAR: S1 and S2 present. No murmurs, rubs, or gallops. PULMONARY: Chest is clear to auscultation, no wheezing or crackles. ABDOMEN: Soft, nontender, nondistended, normoactive bowel sounds. No palpable organomegaly. MUSCULOSKELETAL: No joint swelling or deformity. EXTREMITIES: No cyanosis, clubbing, or pedal edema. NEUROLOGICAL: pt is confused and delirious , pupils are equal and reactive to light , SKIN: No rashes. - Labs CBC & Chem 7: 10/02/17 06:22 10/02/17 06:22 Labs: Abnormal Lab Results - Last 24 Hours (Table) 10/01/17 10/01/17 10/01/17 Range/Units 11:47 16:46 21:23 WBC (3.8-10.6) k/uL Hgb (11.4-16.0) gm/dL MCH (25.0-35.0) pg MCHC (31.0-37.0) g/dL RDW (11.5-15.5) % Neutrophils # (1.3-7.7) k/uL Eosinophils # (0-0.7) k/uL Carbon Dioxide (22-30) mmol/L BUN (7-17) mg/dL Glucose (74-99) mg/dL POC Glucose (mg/dL) 269 H 249 H 251 H (75-99) mg/dL 10/01/17 10/02/17 10/02/17 Range/Units 23:39 06:01 06:22 WBC 13.9 H (3.8-10.6) k/uL Hgb 10.5 L (11.4-16.0) gm/dL MCH 24.2 L (25.0-35.0) pg MCHC 29.6 L (31.0-37.0) g/dL RDW 17.4 H (11.5-15.5) % Neutrophils # 10.2 H (1.3-7.7) k/uL Eosinophils # 0.8 H (0-0.7) k/uL Carbon Dioxide (22-30) mmol/L BUN (7-17) mg/dL Glucose (74-99) mg/dL POC Glucose (mg/dL) 238 H 182 H (75-99) mg/dL 10/02/17 Range/Units 06:22 WBC (3.8-10.6) k/uL Hgb (11.4-16.0) gm/dL MCH (25.0-35.0) pg MCHC (31.0-37.0) g/dL RDW (11.5-15.5) % Neutrophils # (1.3-7.7) k/uL Eosinophils # (0-0.7) k/uL Carbon Dioxide 31 H (22-30) mmol/L BUN 28 H (7-17) mg/dL Glucose 174 H (74-99) mg/dL POC Glucose (mg/dL) (75-99) mg/dL Microbiology - Last 24 Hours (Table) 09/27/17 19:00 Blood Culture - Preliminary Blood No Growth after 96 hours Assessment and Plan Assessment: Hypertensive emergency acute on chronic diastolic CHF positive jessica supratheraputic INR, with coagulopathy metabolic encephalopathy uncontrolled essential hypertension atrial fibrillation diabetes mellitus, on insulin hyperlipidemia hypertension h/o seizure h/o stroke possible vascular dementia obstructive sleep apnea Plan: this is a 72 yo F who presents with hypertensive emergency and metabolic encephalopathy. continue with the same treatment , continue with symptomatic treatment , resume home medication , monitor lytes and vitals including glucose , c/w diuretics ,c/w insuline, pt is on half the dose in the begining.c/w ISS. hold coumadin while INR is supratherapeutic . CT of the head showed multiple old infact. cardiology consult is appreciated. cardiology consult is appreciated . continue with metaprolol. GI and DVT prophylaxis , further recommendation based upon pt clinical course and progress prognosis is guarded
[2017-10-02 16:44] LABS: Glucose,Whole Blood 209 mg/dL (75-99)
[2017-10-02 17:01] LABS: Glucose,Whole Blood 243 mg/dL (75-99)
[2017-10-02] MEDS: PANTOPRAZOLE SODIUM 40 MG GRANULE PKT PO SCH (20:19)
[2017-10-02] MEDS: PRAVASTATIN SODIUM 40 MG TAB PO SCH (20:24)
[2017-10-02] MEDS: ACETAMINOPHEN TAB 325 MG TAB PEG/G-TUBE PRN (20:24)
[2017-10-02 21:20] LABS: Glucose,Whole Blood 223 mg/dL (75-99)
--- NOTE | 2017-10-02 23:10 | P.PN ---
Subjective Date of service : 10/01/2017 this is a 72 yo F with pmh of Atrial fibrillation , asthma , Diabetes Mellitus, Hypertesion , hyperlipidemia , sleep apnea on BiPAP/CPAP, h/o breast cancer status post lumpectomy migrains who presents with altered mental status, pt could not provide information so it is obtained from medical records and staff, no family at bed side In the emergency room she was found to be quite hypertensive with the admitting blood pressure of 237/107. She was initiated on a nitroglycerin drip at 10 mcg/ m. She was started on metoprolol 75 mg twice a day. Computed tomography scan of the brain revealed a large old infarct in the right temporal lobe and left occipital lobe. No change compared to previous. No hemorrhage. This x-ray shows evidence of pulmonary edema. She is maintaining good O2 saturations in the 90s on room air. He is seen today in consultation in the intensive care unit. She is difficult to arouse. Very poor historian. White count 16.1. Hemoglobin 8.8. Creatinine 0.50. Her BP is better controlled and now SBP is about 144. she is currently only on metoprolol 75 mg bid with no nitroglycerin drip (stopped) pt can be transferred to general medical floor 09/29/2017 Patient is more awake today, she knows she is in hospital. But she couldn't remember the year, month or date. She is also transfused about person she thinks the president illness Mr. Pacheco. Patient Transferred out of the ICU today. Augmentin has been added by the pulmonary team for her UTI. Pulmonary and cardiology input is appreciated. 09/30/2017 pt still awake but confused , cardiology have evaluated pt today and plan to c/ w iv lasix and with oral diuretics. norvasc 10 mg is added , UC: enterococcus , susceptible to many abx. pt is on augmentin but still with high leukoctyosis , CXR: interstitial edema and pt is on lasix INR 2.3, resume coumadin , increase lantus to 35 U BID for uncontrolled sugar 10/01/2017 pt clinically looks the same , there were concerns for discripancy in blood pressure reading on both arms , cardiology team are following the pt and want to keep checking the bp on both sides for now with every shift. pulmonary input is appreciated c/w same treatment and pt is still on low flow oxygen via nasal cannular , WBC 15.9. Hemoglobin 10.9. Creatinine 0.50 10/02/2017 monitor BP on both side , pt is more awake and is interactive with her sister at bed side , when i asked pt today she told me she does not complain from any pain , however pt still looks lethargic . no chest pain , no dyspnea , no change in urine or bowel habits , no fever , leukocytosis is improving , pt has enterococcus in her urine culture pt is already on antibiotic , augmentin , this bact is sensitive to many antibiotics including ampicillin. pt is with h/o CVA and a fib , she was started on coumadin 7.5 QHS , f/u INR daily and adjust dose accordingly Objective - Vital Signs Vital signs: Vital Signs Temp 98.8 F 10/02/17 20:38 Pulse 65 10/02/17 20:38 Resp 16 10/02/17 20:38 BP 161/71 10/02/17 20:38 Pulse Ox 96 10/02/17 20:38 Intake & Output 10/02/17 10/02/17 10/03/17 06:59 18:59 06:59 Intake Total 100 90 30 Output Total 1 Balance 99 90 30 Weight 71.3 kg Intake: IV 10 0.9 NaCl 10 Tube Feeding 90 90 30 Output: Urine/Stool Mix 1 Other: Voiding Method Diaper Diaper Diaper Incontinent Incontinent Incontinent # Voids 3 2 - Exam GENERAL: The patient is more awake today , she is alert and oriented to place, but not for time or person. HEENT: Pupils are round and equally reacting to light. EOMI. No scleral icterus. No conjunctival pallor. Normocephalic, atraumatic. No pharyngeal erythema. No thyromegaly. CARDIOVASCULAR: S1 and S2 present. No murmurs, rubs, or gallops. PULMONARY: Chest is clear to auscultation, no wheezing or crackles. ABDOMEN: Soft, nontender, nondistended, normoactive bowel sounds. No palpable organomegaly. MUSCULOSKELETAL: No joint swelling or deformity. EXTREMITIES: No cyanosis, clubbing, or pedal edema. NEUROLOGICAL: pt is confused and delirious , pupils are equal and reactive to light , SKIN: No rashes. - Labs CBC & Chem 7: 10/02/17 06:22 10/02/17 06:22 Labs: Abnormal Lab Results - Last 24 Hours (Table) 10/01/17 10/02/17 10/02/17 Range/Units 23:39 06:01 06:22 WBC 13.9 H (3.8-10.6) k/uL Hgb 10.5 L (11.4-16.0) gm/dL MCH 24.2 L (25.0-35.0) pg MCHC 29.6 L (31.0-37.0) g/dL RDW 17.4 H (11.5-15.5) % Neutrophils # 10.2 H (1.3-7.7) k/uL Eosinophils # 0.8 H (0-0.7) k/uL Carbon Dioxide (22-30) mmol/L BUN (7-17) mg/dL Glucose (74-99) mg/dL POC Glucose (mg/dL) 238 H 182 H (75-99) mg/dL 10/02/17 10/02/17 10/02/17 Range/Units 06:22 12:06 16:59 WBC (3.8-10.6) k/uL Hgb (11.4-16.0) gm/dL MCH (25.0-35.0) pg MCHC (31.0-37.0) g/dL RDW (11.5-15.5) % Neutrophils # (1.3-7.7) k/uL Eosinophils # (0-0.7) k/uL Carbon Dioxide 31 H (22-30) mmol/L BUN 28 H (7-17) mg/dL Glucose 174 H (74-99) mg/dL POC Glucose (mg/dL) 209 H 243 H (75-99) mg/dL 10/02/17 Range/Units 21:18 WBC (3.8-10.6) k/uL Hgb (11.4-16.0) gm/dL MCH (25.0-35.0) pg MCHC (31.0-37.0) g/dL RDW (11.5-15.5) % Neutrophils # (1.3-7.7) k/uL Eosinophils # (0-0.7) k/uL Carbon Dioxide (22-30) mmol/L BUN (7-17) mg/dL Glucose (74-99) mg/dL POC Glucose (mg/dL) 223 H (75-99) mg/dL Microbiology - Last 24 Hours (Table) 09/27/17 19:00 Blood Culture - Preliminary Blood No Growth after 120 hours Assessment and Plan Assessment: Hypertensive emergency acute on chronic diastolic CHF positive jessica supratheraputic INR, with coagulopathy metabolic encephalopathy uncontrolled essential hypertension atrial fibrillation diabetes mellitus, on insulin hyperlipidemia hypertension h/o seizure h/o stroke possible vascular dementia obstructive sleep apnea Plan: this is a 72 yo F who presents with hypertensive emergency and metabolic encephalopathy. continue with the same treatment , continue with symptomatic treatment , resume home medication , monitor lytes and vitals including glucose , c/w diuretics ,c/w insuline, pt is on half the dose in the begining.c/w ISS. hold coumadin while INR is supratherapeutic . CT of the head showed multiple old infact. cardiology consult is appreciated. cardiology consult is appreciated . continue with metaprolol. GI and DVT prophylaxis , further recommendation based upon pt clinical course and progress prognosis is guarded
[2017-10-02 23:55] LABS: Glucose,Whole Blood 191 mg/dL (75-99)
[2017-10-03] MEDS: INSULIN ASPART 100 UNIT/ML 1 ML 10 ML VIAL SQ SCH ×4 (01:15→18:20)
[2017-10-03 05:52] LABS: Glucose,Whole Blood 160 mg/dL (75-99)
[2017-10-03 06:58] LABS: INR 1.1 (<1.2)
[2017-10-03] MEDS: ASPIRIN 81 MG PO SCH (08:01)
[2017-10-03] MEDS: levETIRAcetam ORAL SOLN 500 MG/5 ML CUP PEG/G-TUBE SCH ×2 (08:01→21:24)
[2017-10-03] MEDS: METOPROLOL TARTRATE 50 MG TAB PO SCH ×2 (08:01→23:12)
[2017-10-03] MEDS: amLODIPine 5 MG TAB PO SCH (08:01)
[2017-10-03] MEDS: FUROSEMIDE 20 MG TAB PO SCH (08:01)
[2017-10-03] MEDS: AMOXIC-POT CLAV 875-125MG 1 EACH TAB PO SCH ×2 (08:01→21:23)
[2017-10-03] MEDS: POTASSIUM BICARBONATE/CIT AC 20 MEQ TABLET.EFF PO SCH ×2 (08:02→21:24)
[2017-10-03] MEDS: INSULIN DETEMIR 100 UNIT/ML 10 ML VIAL SQ SCH ×2 (08:02→23:11)
[2017-10-03 11:08] LABS: Glucose,Whole Blood 168 mg/dL (75-99)
[2017-10-03] MEDS ORDERED: WARFARIN 3 MG TAB PO ONE (18:00)
[2017-10-03 18:11] LABS: Glucose,Whole Blood 198 mg/dL (75-99)
[2017-10-03] MEDS: PRAVASTATIN SODIUM 40 MG TAB PO SCH (21:23)
[2017-10-03] MEDS: PANTOPRAZOLE SODIUM 40 MG GRANULE PKT PO SCH (21:24)
[2017-10-03] MEDS: WARFARIN 7.5 MG TAB PO SCH (23:13)
[2017-10-03] MEDS: ACETAMINOPHEN TAB 325 MG TAB PEG/G-TUBE PRN (23:26)
[2017-10-04 00:31] LABS: Glucose,Whole Blood 237 mg/dL (75-99)
[2017-10-04] MEDS: INSULIN ASPART 100 UNIT/ML 1 ML 10 ML VIAL SQ SCH ×4 (01:41→17:55)
[2017-10-04 06:39] LABS: Glucose,Whole Blood 166 mg/dL (75-99)
--- NOTE | 2017-10-04 08:18 | P.PN ---
Subjective Date of service : 10/01/2017 this is a 72 yo F with pmh of Atrial fibrillation , asthma , Diabetes Mellitus, Hypertesion , hyperlipidemia , sleep apnea on BiPAP/CPAP, h/o breast cancer status post lumpectomy migrains who presents with altered mental status, pt could not provide information so it is obtained from medical records and staff, no family at bed side In the emergency room she was found to be quite hypertensive with the admitting blood pressure of 237/107. She was initiated on a nitroglycerin drip at 10 mcg/ m. She was started on metoprolol 75 mg twice a day. Computed tomography scan of the brain revealed a large old infarct in the right temporal lobe and left occipital lobe. No change compared to previous. No hemorrhage. This x-ray shows evidence of pulmonary edema. She is maintaining good O2 saturations in the 90s on room air. He is seen today in consultation in the intensive care unit. She is difficult to arouse. Very poor historian. White count 16.1. Hemoglobin 8.8. Creatinine 0.50. Her BP is better controlled and now SBP is about 144. she is currently only on metoprolol 75 mg bid with no nitroglycerin drip (stopped) pt can be transferred to general medical floor 09/29/2017 Patient is more awake today, she knows she is in hospital. But she couldn't remember the year, month or date. She is also transfused about person she thinks the president illness Mr. Pacheco. Patient Transferred out of the ICU today. Augmentin has been added by the pulmonary team for her UTI. Pulmonary and cardiology input is appreciated. 09/30/2017 pt still awake but confused , cardiology have evaluated pt today and plan to c/ w iv lasix and with oral diuretics. norvasc 10 mg is added , UC: enterococcus , susceptible to many abx. pt is on augmentin but still with high leukoctyosis , CXR: interstitial edema and pt is on lasix INR 2.3, resume coumadin , increase lantus to 35 U BID for uncontrolled sugar 10/01/2017 pt clinically looks the same , there were concerns for discripancy in blood pressure reading on both arms , cardiology team are following the pt and want to keep checking the bp on both sides for now with every shift. pulmonary input is appreciated c/w same treatment and pt is still on low flow oxygen via nasal cannular , WBC 15.9. Hemoglobin 10.9. Creatinine 0.50 10/02/2017 monitor BP on both side , pt is more awake and is interactive with her sister at bed side , when i asked pt today she told me she does not complain from any pain , however pt still looks lethargic . no chest pain , no dyspnea , no change in urine or bowel habits , no fever , leukocytosis is improving , pt has enterococcus in her urine culture pt is already on antibiotic , augmentin , this bact is sensitive to many antibiotics including ampicillin. pt is with h/o CVA and a fib , she was started on coumadin 7.5 QHS , f/u INR daily and adjust dose accordingly 10/03/2017 there is significant difference in BP reading between both side,we will call surgical consult , pt is more awake and is still looks lethargic . no chest pain , no dyspnea , no change in urine or bowel habits , no fever , leukocytosis is improving , pt has enterococcus in her urine culture pt is already on antibiotic , augmentin , this bact is sensitive to many antibiotics including ampicillin. 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 INR 1.1. i gave extra 3mg extra dose tonight Objective - Vital Signs Vital signs: Vital Signs Temp 98.9 F 10/03/17 07:50 Pulse 79 10/03/17 12:00 Resp 14 10/03/17 11:11 BP 141/57 10/03/17 11:11 Pulse Ox 97 10/03/17 11:11 Intake & Output 10/02/17 10/03/17 10/03/17 18:59 06:59 18:59 Intake Total 90 90 240 Balance 90 90 240 Weight 72.5 kg Intake: Tube Feeding 90 90 240 Other: Voiding Method Diaper Diaper Diaper Incontinent Incontinent Incontinent # Voids 2 1 1 - Exam GENERAL: The patient is more awake today , she is alert and oriented to place, but not for time or person. HEENT: Pupils are round and equally reacting to light. EOMI. No scleral icterus. No conjunctival pallor. Normocephalic, atraumatic. No pharyngeal erythema. No thyromegaly. CARDIOVASCULAR: S1 and S2 present. No murmurs, rubs, or gallops. PULMONARY: Chest is clear to auscultation, no wheezing or crackles. ABDOMEN: Soft, nontender, nondistended, normoactive bowel sounds. No palpable organomegaly. MUSCULOSKELETAL: No joint swelling or deformity. EXTREMITIES: No cyanosis, clubbing, or pedal edema. NEUROLOGICAL: pt is confused and delirious , pupils are equal and reactive to light , SKIN: No rashes. - Labs CBC & Chem 7: 10/02/17 06:22 10/02/17 06:22 Labs: Abnormal Lab Results - Last 24 Hours (Table) 10/02/17 10/02/17 10/02/17 Range/Units 12:06 16:59 21:18 POC Glucose (mg/dL) 209 H 243 H 223 H (75-99) mg/dL 10/02/17 10/03/17 10/03/17 Range/Units 23:54 05:51 11:06 POC Glucose (mg/dL) 191 H 160 H 168 H (75-99) mg/dL Microbiology - Last 24 Hours (Table) 09/27/17 19:00 Blood Culture - Preliminary Blood No Growth after 120 hours Assessment and Plan Assessment: Hypertensive emergency acute on chronic diastolic CHF positive jessica supratheraputic INR, with coagulopathy metabolic encephalopathy uncontrolled essential hypertension atrial fibrillation diabetes mellitus, on insulin hyperlipidemia hypertension h/o seizure h/o stroke possible vascular dementia obstructive sleep apnea Plan: this is a 72 yo F who presents with hypertensive emergency and metabolic encephalopathy. continue with the same treatment , continue with symptomatic treatment , resume home medication , monitor lytes and vitals including glucose , c/w diuretics ,c/w insuline, pt is on half the dose in the begining.c/w ISS. hold coumadin while INR is supratherapeutic . CT of the head showed multiple old infact. cardiology consult is appreciated. cardiology consult is appreciated . continue with metaprolol. GI and DVT prophylaxis , further recommendation based upon pt clinical course and progress prognosis is guarded
[2017-10-04] MEDS: POTASSIUM BICARBONATE/CIT AC 20 MEQ TABLET.EFF PO SCH ×2 (08:49→20:21)
[2017-10-04] MEDS: levETIRAcetam ORAL SOLN 500 MG/5 ML CUP PEG/G-TUBE SCH ×2 (08:49→20:22)
[2017-10-04] MEDS: AMOXIC-POT CLAV 875-125MG 1 EACH TAB PO SCH ×2 (08:49→20:21)
[2017-10-04] MEDS: ASPIRIN 81 MG PO SCH (08:50)
[2017-10-04] MEDS: amLODIPine 5 MG TAB PO SCH (08:50)
[2017-10-04] MEDS: METOPROLOL TARTRATE 50 MG TAB PO SCH ×2 (08:50→22:14)
[2017-10-04] MEDS: FUROSEMIDE 20 MG TAB PO SCH (08:50)
[2017-10-04] MEDS: INSULIN DETEMIR 100 UNIT/ML 10 ML VIAL SQ SCH ×2 (09:29→20:21)
[2017-10-04 09:58] LABS: INR 1.1 (<1.2); Prothrombin Time 10.8 sec (9.0-12.0)
[2017-10-04 10:09] VITALS: BMI 46.1
--- NOTE | 2017-10-04 10:14 | CONS ---
CONSULTATION This is a 72-year-old, pleasant female. Patient had a difference in arm pressure. On the right side, pressure is 153/69, left side is 107/54. The patient has multiple medical problems. Patient has history of atrial fibrillation, history of diabetes mellitus, history of hypertension, sleep apnea on BiPAP. Patient came to the emergency room with hypertensive episode and patient was admitted. The patient had a brain scan which shows large old infarct in the right temporal lobe and left occipital lobe. The patient is still confused. The patient has been seen by Cardiology and Pulmonary Medicine. PHYSICAL EXAMINATION: On physical exam, brachial pulses on the right side is 2+ and on the left side is 1+. Radial on the left hand is with Doppler. No evidence of acute ischemia noted in the left arm. PLAN: At this point, patient has multiple medical issues. She does not need any major surgical intervention as far as subclavian occlusive disease is concerned. If patient is stabilized, we will do outpatient workup. We will follow with you. MMODL / IJN: [id number] /
[2017-10-04 10:15] LABS: Anisocytosis Slight; Basophils # (A) 0.1 k/uL (0-0.2); Basophils % (A) 1 %; Eosinophils # (A) 0.9 k/uL (0-0.7); Eosinophils % (A) 7 %; HCT 34.6 % (34.0-46.0); HGB 9.9 gm/dL (11.4-16.0); Hypochromasia Marked; Lymphocytes # (A) 2.1 k/uL (1.0-4.8); Lymphocytes % (A) 16 %; MCH 23.5 pg (25.0-35.0); MCHC 28.6 g/dL (31.0-37.0); MCV 82.1 fL (80.0-100.0); Mean Platelet Volume 7.4; Monocytes # (A) 0.6 k/uL (0-1.0); Monocytes % (A) 5 %; Neutrophils # (A) 8.9 k/uL (1.3-7.7); Neutrophils % (A) 70 %; Platelet Count 367 k/uL (150-450); RBC 4.22 m/uL (3.80-5.40); RDW 16.7 % (11.5-15.5); WBC 12.7 k/uL (3.8-10.6)
[2017-10-04 10:20] LABS: Anion Gap 8 mmol/L; Blood Urea Nitrogen 27 mg/dL (7-17); Calcium 9.1 mg/dL (8.4-10.2); Carbon Dioxide 28 mmol/L (22-30); Chloride 102 mmol/L (98-107); Glucose 153 mg/dL (74-99); Potassium 4.7 mmol/L (3.5-5.1); Sodium 138 mmol/L (137-145)
[2017-10-04 11:30] LABS: Glucose,Whole Blood 191 mg/dL (75-99)
[2017-10-04 17:14] LABS: Glucose,Whole Blood 209 mg/dL (75-99)
[2017-10-04] MEDS: WARFARIN 7.5 MG TAB PO SCH (18:57)
[2017-10-04] MEDS: PRAVASTATIN SODIUM 40 MG TAB PO SCH (20:21)
[2017-10-04] MEDS: PANTOPRAZOLE SODIUM 40 MG GRANULE PKT PO SCH (20:21)
[2017-10-04] MEDS: ACETAMINOPHEN TAB 325 MG TAB PEG/G-TUBE PRN (20:24)
[2017-10-05 00:19] LABS: Glucose,Whole Blood 163 mg/dL (75-99)
[2017-10-05] MEDS: INSULIN ASPART 100 UNIT/ML 1 ML 10 ML VIAL SQ SCH ×4 (00:22→17:47)
[2017-10-05] MEDS: ACETAMINOPHEN TAB 325 MG TAB PEG/G-TUBE PRN ×2 (00:29→21:34)
[2017-10-05 06:41] LABS: Glucose,Whole Blood 145 mg/dL (75-99)
[2017-10-05] MEDS: amLODIPine 5 MG TAB PO SCH (08:11)
[2017-10-05] MEDS: METOPROLOL TARTRATE 50 MG TAB PO SCH ×2 (08:11→21:32)
[2017-10-05] MEDS: ASPIRIN 81 MG PO SCH (08:11)
[2017-10-05] MEDS: levETIRAcetam ORAL SOLN 500 MG/5 ML CUP PEG/G-TUBE SCH ×2 (08:11→21:31)
[2017-10-05] MEDS: AMOXIC-POT CLAV 875-125MG 1 EACH TAB PO SCH ×2 (08:11→21:31)
[2017-10-05] MEDS: FUROSEMIDE 20 MG TAB PO SCH (08:11)
[2017-10-05] MEDS: POTASSIUM BICARBONATE/CIT AC 20 MEQ TABLET.EFF PO SCH ×2 (08:12→21:32)
[2017-10-05 08:42] LABS: Anisocytosis Slight; Basophils # (A) 0.1 k/uL (0-0.2); Basophils % (A) 1 %; Eosinophils # (A) 0.9 k/uL (0-0.7); Eosinophils % (A) 8 %; HGB 9.9 gm/dL (11.4-16.0); Hypochromasia Marked; Lymphocytes # (A) 2.2 k/uL (1.0-4.8); Lymphocytes % (A) 18 %; MCH 24.3 pg (25.0-35.0); MCHC 29.9 g/dL (31.0-37.0); MCV 81.2 fL (80.0-100.0); Mean Platelet Volume 7.3; Monocytes # (A) 0.5 k/uL (0-1.0); Monocytes % (A) 4 %; Neutrophils # (A) 8.2 k/uL (1.3-7.7); Neutrophils % (A) 68 %; Platelet Count 370 k/uL (150-450); RBC 4.06 m/uL (3.80-5.40); RDW 16.9 % (11.5-15.5)
[2017-10-05 08:51] LABS: Anion Gap 7 mmol/L; Blood Urea Nitrogen 25 mg/dL (7-17); Calcium 9.1 mg/dL (8.4-10.2); Carbon Dioxide 27 mmol/L (22-30); Chloride 103 mmol/L (98-107); Glucose 133 mg/dL (74-99); Potassium 4.3 mmol/L (3.5-5.1); Sodium 137 mmol/L (137-145)
[2017-10-05 08:55] LABS: INR 1.4 (<1.2); Prothrombin Time 13.1 sec (9.0-12.0)
[2017-10-05] MEDS: INSULIN DETEMIR 100 UNIT/ML 10 ML VIAL SQ SCH ×2 (08:55→21:31)
[2017-10-05 12:13] LABS: Glucose,Whole Blood 155 mg/dL (75-99)
--- NOTE | 2017-10-05 15:07 | P.PN ---
Subjective Progress Note Date: 10/04/17 there is significant difference in BP reading between both side,we will call surgical consult , pt is more awake and is still looks lethargic . no chest pain , no dyspnea , no change in urine or bowel habits , no fever , leukocytosis is improving , pt has enterococcus in her urine culture pt is already on antibiotic , augmentin , this bact is sensitive to many antibiotics including ampicillin. 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 INR 1.1. i gave extra 3mg extra dose tonight Objective - Vital Signs Vital signs: Vital Signs Temp 97.6 F 10/04/17 06:56 Pulse 77 10/04/17 06:56 Resp 16 10/04/17 08:00 BP 153/69 10/04/17 06:56 Pulse Ox 99 10/04/17 06:56 Intake & Output 10/03/17 10/04/17 10/04/17 18:59 06:59 18:59 Intake Total 360 360 Balance 360 360 Weight 114.5 kg 114.5 kg Intake: Tube Feeding 360 360 Other: Voiding Method Diaper Diaper Diaper Incontinent Incontinent Incontinent # Voids 1 0 # Bowel Movements 1 0 - Exam - Constitutional General appearance: Present: average body habitus, cooperative, no acute distress - EENT Eyes: Present: anicteric sclerae, EOMI, PERRLA, normal appearance ENT: Present: hearing grossly normal, normal oropharynx Ears: bilateral: normal - Neck Neck: Present: normal ROM. Absent: lymphadenopathy, rigidity, thyromegaly Carotids: negative: bruit present Thyroid: bilateral: normal size, negative: enlarged, nodule - Respiratory Respiratory: bilateral: CTA, negative: rales, rhonchi, wheezing - Cardiovascular Rhythm: regular Heart sounds: normal: S1, S2 Abnormal Heart Sounds: Absent: systolic murmur, diastolic murmur - Gastrointestinal General gastrointestinal: Present: normal bowel sounds, soft. Absent: distended , organomegaly, tenderness - Genitourinary Genitourinary Comment(s): deferred - Integumentary Integumentary: Present: normal turgor. Absent: jaundiced, rash, ulcer - Neurologic Neurologic: Present: CNII-XII intact. Absent: focal deficits - Musculoskeletal Musculoskeletal: Present: gait normal, strength equal bilaterally - Psychiatric Psychiatric: Present: A&O x's 3, appropriate affect, intact judgment & insight - Labs CBC & Chem 7: 10/05/17 07:57 10/05/17 07:57 Labs: Abnormal Lab Results - Last 24 Hours (Table) 10/03/17 10/04/17 10/04/17 Range/Units 18:08 00:17 06:38 WBC (3.8-10.6) k/uL Hgb (11.4-16.0) gm/dL MCH (25.0-35.0) pg MCHC (31.0-37.0) g/dL RDW (11.5-15.5) % Neutrophils # (1.3-7.7) k/uL Eosinophils # (0-0.7) k/uL BUN (7-17) mg/dL Glucose (74-99) mg/dL POC Glucose (mg/dL) 198 H 237 H 166 H (75-99) mg/dL 10/04/17 10/04/17 10/04/17 Range/Units 09:01 09:01 11:28 WBC 12.7 H (3.8-10.6) k/uL Hgb 9.9 L (11.4-16.0) gm/dL MCH 23.5 L (25.0-35.0) pg MCHC 28.6 L (31.0-37.0) g/dL RDW 16.7 H (11.5-15.5) % Neutrophils # 8.9 H (1.3-7.7) k/uL Eosinophils # 0.9 H (0-0.7) k/uL BUN 27 H (7-17) mg/dL Glucose 153 H (74-99) mg/dL POC Glucose (mg/dL) 191 H (75-99) mg/dL Microbiology - Last 24 Hours (Table) 09/27/17 19:00 Blood Culture - Final Blood No Growth after 144 hours Assessment and Plan Plan: Hypertensive emergency acute on chronic diastolic CHF positive jessica supratheraputic INR, with coagulopathy metabolic encephalopathy uncontrolled essential hypertension atrial fibrillation diabetes mellitus, on insulin hyperlipidemia hypertension h/o seizure h/o stroke possible vascular dementia obstructive sleep apnea Plan: this is a 72 yo F who presents with hypertensive emergency and metabolic encephalopathy. continue with the same treatment , continue with symptomatic treatment , resume home medication , monitor lytes and vitals including glucose , c/w diuretics ,c/w insuline, pt is on half the dose in the begining.c/w ISS. hold coumadin while INR is supratherapeutic . CT of the head showed multiple old infact. cardiology consult is appreciated. cardiology consult is appreciated . continue with metaprolol. GI and DVT prophylaxis , further recommendation based upon pt clinical course and progress prognosis is guarded Time with Patient: Greater than 30
--- NOTE | 2017-10-05 17:07 | P.PN ---
Subjective Progress Note Date: 10/05/17 there is significant difference in BP reading between both side,we will call surgical consult , pt is more awake and is still looks lethargic . no chest pain , no dyspnea , no change in urine or bowel habits , no fever , leukocytosis is improving , pt has enterococcus in her urine culture pt is already on antibiotic , augmentin , this bact is sensitive to many antibiotics including ampicillin. 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 INR 1.1. i gave extra 3mg extra dose tonight Objective - Vital Signs Vital signs: Vital Signs Temp 97.0 F L 10/05/17 07:00 Pulse 77 10/05/17 07:00 Resp 16 10/05/17 08:11 BP 126/63 10/05/17 07:00 Pulse Ox 99 10/05/17 07:00 Intake & Output 10/04/17 10/05/17 10/05/17 18:59 06:59 18:59 Intake Total 0 Balance 0 Weight 114.5 kg 69 kg Intake: Oral 0 Other: Voiding Method Diaper Diaper Incontinent Incontinent # Voids 0 0 # Bowel Movements 0 0 - Exam - Constitutional General appearance: Present: average body habitus, cooperative, no acute distress - EENT Eyes: Present: anicteric sclerae, EOMI, PERRLA, normal appearance ENT: Present: hearing grossly normal, normal oropharynx Ears: bilateral: normal - Neck Neck: Present: normal ROM. Absent: lymphadenopathy, rigidity, thyromegaly Carotids: negative: bruit present Thyroid: bilateral: normal size, negative: enlarged, nodule - Respiratory Respiratory: bilateral: CTA, negative: rales, rhonchi, wheezing - Cardiovascular Rhythm: regular Heart sounds: normal: S1, S2 Abnormal Heart Sounds: Absent: systolic murmur, diastolic murmur - Gastrointestinal General gastrointestinal: Present: normal bowel sounds, soft. Absent: distended , organomegaly, tenderness - Genitourinary Genitourinary Comment(s): deferred - Integumentary Integumentary: Present: normal turgor. Absent: jaundiced, rash, ulcer - Neurologic Neurologic: Present: CNII-XII intact. Absent: focal deficits - Musculoskeletal Musculoskeletal: Present: gait normal, strength equal bilaterally - Psychiatric Psychiatric: Present: A&O x's 3, appropriate affect, intact judgment & insight - Labs CBC & Chem 7: 10/05/17 07:57 10/05/17 07:57 Labs: Abnormal Lab Results - Last 24 Hours (Table) 10/04/17 10/05/17 10/05/17 Range/Units 17:10 00:05 06:38 WBC (3.8-10.6) k/uL Hgb (11.4-16.0) gm/dL Hct (34.0-46.0) % MCH (25.0-35.0) pg MCHC (31.0-37.0) g/dL RDW (11.5-15.5) % Neutrophils # (1.3-7.7) k/uL Eosinophils # (0-0.7) k/uL PT (9.0-12.0) sec INR (<1.2) BUN (7-17) mg/dL Glucose (74-99) mg/dL POC Glucose (mg/dL) 209 H 163 H 145 H (75-99) mg/dL 10/05/17 10/05/17 10/05/17 Range/Units 07:57 07:57 07:57 WBC 12.0 H (3.8-10.6) k/uL Hgb 9.9 L (11.4-16.0) gm/dL Hct 33.0 L (34.0-46.0) % MCH 24.3 L (25.0-35.0) pg MCHC 29.9 L (31.0-37.0) g/dL RDW 16.9 H (11.5-15.5) % Neutrophils # 8.2 H (1.3-7.7) k/uL Eosinophils # 0.9 H (0-0.7) k/uL PT 13.1 H (9.0-12.0) sec INR 1.4 H (<1.2) BUN 25 H (7-17) mg/dL Glucose 133 H (74-99) mg/dL POC Glucose (mg/dL) (75-99) mg/dL 10/05/17 Range/Units 11:58 WBC (3.8-10.6) k/uL Hgb (11.4-16.0) gm/dL Hct (34.0-46.0) % MCH (25.0-35.0) pg MCHC (31.0-37.0) g/dL RDW (11.5-15.5) % Neutrophils # (1.3-7.7) k/uL Eosinophils # (0-0.7) k/uL PT (9.0-12.0) sec INR (<1.2) BUN (7-17) mg/dL Glucose (74-99) mg/dL POC Glucose (mg/dL) 155 H (75-99) mg/dL Assessment and Plan Plan: Hypertensive emergency acute on chronic diastolic CHF positive jessica supratheraputic INR, with coagulopathy metabolic encephalopathy uncontrolled essential hypertension atrial fibrillation diabetes mellitus, on insulin hyperlipidemia hypertension h/o seizure h/o stroke possible vascular dementia obstructive sleep apnea Plan: this is a 72 yo F who presents with hypertensive emergency and metabolic encephalopathy. continue with the same treatment , continue with symptomatic treatment , resume home medication , monitor lytes and vitals including glucose , c/w diuretics ,c/w insuline, pt is on half the dose in the begining.c/w ISS. hold coumadin while INR is supratherapeutic . CT of the head showed multiple old infact. cardiology consult is appreciated. cardiology consult is appreciated . continue with metaprolol. GI and DVT prophylaxis , further recommendation based upon pt clinical course and progress prognosis is guarded Time with Patient: Greater than 30
[2017-10-05] MEDS: WARFARIN 7.5 MG TAB PO SCH (17:20)
[2017-10-05 17:21] LABS: Glucose,Whole Blood 206 mg/dL (75-99)
[2017-10-05] MEDS ORDERED: WARFARIN 10 MG TAB PO ONE (18:00)
[2017-10-05] MEDS: PRAVASTATIN SODIUM 40 MG TAB PO SCH (21:32)
[2017-10-05] MEDS: PANTOPRAZOLE SODIUM 40 MG GRANULE PKT PO SCH (21:33)
[2017-10-06 00:46] LABS: Glucose,Whole Blood 192 mg/dL (75-99)
[2017-10-06] MEDS: INSULIN ASPART 100 UNIT/ML 1 ML 10 ML VIAL SQ SCH ×4 (00:59→17:43)
[2017-10-06] MEDS: ACETAMINOPHEN TAB 325 MG TAB PEG/G-TUBE PRN ×3 (03:54→17:42)
[2017-10-06 06:41] LABS: Glucose,Whole Blood 153 mg/dL (75-99)
[2017-10-06] MEDS: INSULIN DETEMIR 100 UNIT/ML 10 ML VIAL SQ SCH ×2 (09:30→21:53)
[2017-10-06] MEDS: POTASSIUM BICARBONATE/CIT AC 20 MEQ TABLET.EFF PO SCH ×2 (09:30→21:52)
[2017-10-06] MEDS: METOPROLOL TARTRATE 50 MG TAB PO SCH ×2 (09:31→21:51)
[2017-10-06] MEDS: FUROSEMIDE 20 MG TAB PO SCH (09:31)
[2017-10-06] MEDS: ASPIRIN 81 MG PO SCH (09:31)
[2017-10-06] MEDS: levETIRAcetam ORAL SOLN 500 MG/5 ML CUP PEG/G-TUBE SCH ×2 (09:31→21:51)
[2017-10-06] MEDS: AMOXIC-POT CLAV 875-125MG 1 EACH TAB PO SCH ×2 (09:31→21:51)
[2017-10-06] MEDS: amLODIPine 5 MG TAB PO SCH (09:31)
[2017-10-06 09:41] LABS: INR 1.9 (<1.2); Prothrombin Time 17.2 sec (9.0-12.0)
[2017-10-06 09:42] LABS: Anisocytosis Slight; Basophils # (A) 0.1 k/uL (0-0.2); Basophils % (A) 1 %; Eosinophils # (A) 0.9 k/uL (0-0.7); Eosinophils % (A) 8 %; HCT 34.4 % (34.0-46.0); HGB 10.2 gm/dL (11.4-16.0); Hypochromasia Marked; Lymphocytes % (A) 18 %; MCH 24.1 pg (25.0-35.0); MCHC 29.6 g/dL (31.0-37.0); MCV 81.4 fL (80.0-100.0); Mean Platelet Volume 7.9; Monocytes # (A) 0.6 k/uL (0-1.0); Monocytes % (A) 5 %; Neutrophils # (A) 7.3 k/uL (1.3-7.7); Neutrophils % (A) 67 %; Platelet Count 381 k/uL (150-450); RBC 4.23 m/uL (3.80-5.40); RDW 17.4 % (11.5-15.5); WBC 10.9 k/uL (3.8-10.6)
[2017-10-06 09:59] LABS: Anion Gap 8 mmol/L; Blood Urea Nitrogen 23 mg/dL (7-17); Calcium 9.3 mg/dL (8.4-10.2); Carbon Dioxide 26 mmol/L (22-30); Chloride 103 mmol/L (98-107); Glucose 141 mg/dL (74-99); Potassium 4.4 mmol/L (3.5-5.1); Sodium 137 mmol/L (137-145)
[2017-10-06 11:56] LABS: Glucose,Whole Blood 164 mg/dL (75-99)
--- NOTE | 2017-10-06 14:39 | P.PN ---
Subjective there is significant difference in BP reading between both side,we will call surgical consult , pt is more awake and is still looks lethargic . no chest pain , no dyspnea , no change in urine or bowel habits , no fever , leukocytosis is improving , pt has enterococcus in her urine culture pt is already on antibiotic , augmentin , this bact is sensitive to many antibiotics including ampicillin. 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 INR 1.1. i gave extra 3mg extra dose tonight 10/06/2017 Patient is seen and evaluated in the room at bedside;labs are reviewed with a CBC showing an improved white blood count of 10.9 from 12.0 yesterday; INR is up to 1.9; patient was given an extra dose of Coumadin of 10 mg yesterday; we will repeat a dose of 7 mg tonight and repeat PT/INR tomorrow; patient could be discharged to [facility] facility once arrangements are made Objective - Vital Signs Vital signs: Vital Signs Temp 98.8 F 10/06/17 07:00 Pulse 80 10/06/17 07:00 Resp 18 10/06/17 08:00 BP 142/63 10/06/17 07:00 Pulse Ox 97 10/06/17 07:00 Intake & Output 10/05/17 10/06/17 10/06/17 18:59 06:59 18:59 Intake Total 300 Output Total 150 Balance 150 Weight 69 kg Intake: Tube Feeding 300 Output: Urine 150 Other: Voiding Method Diaper Diaper Incontinent Incontinent # Voids 1 0 # Bowel Movements 0 0 - Exam - Constitutional General appearance: Present: average body habitus, cooperative, no acute distress - EENT Eyes: Present: anicteric sclerae, EOMI, PERRLA, normal appearance ENT: Present: hearing grossly normal, normal oropharynx Ears: bilateral: normal - Neck Neck: Present: normal ROM. Absent: lymphadenopathy, rigidity, thyromegaly Carotids: negative: bruit present Thyroid: bilateral: normal size, negative: enlarged, nodule - Respiratory Respiratory: bilateral: CTA, negative: rales, rhonchi, wheezing - Cardiovascular Rhythm: regular Heart sounds: normal: S1, S2 Abnormal Heart Sounds: Absent: systolic murmur, diastolic murmur - Gastrointestinal General gastrointestinal: Present: normal bowel sounds, soft. Absent: distended , organomegaly, tenderness - Genitourinary Genitourinary Comment(s): deferred - Integumentary Integumentary: Present: normal turgor. Absent: jaundiced, rash, ulcer - Neurologic Neurologic: Present: CNII-XII intact. Absent: focal deficits - Musculoskeletal Musculoskeletal: Present: gait normal, strength equal bilaterally - Psychiatric Psychiatric: Present: A&O x's 3, appropriate affect, intact judgment & insight - Labs CBC & Chem 7: 10/06/17 08:57 10/06/17 08:57 Labs: Abnormal Lab Results - Last 24 Hours (Table) 10/05/17 10/06/17 10/06/17 Range/Units 17:16 00:26 06:18 WBC (3.8-10.6) k/uL Hgb (11.4-16.0) gm/dL MCH (25.0-35.0) pg MCHC (31.0-37.0) g/dL RDW (11.5-15.5) % Eosinophils # (0-0.7) k/uL PT (9.0-12.0) sec INR (<1.2) BUN (7-17) mg/dL Glucose (74-99) mg/dL POC Glucose (mg/dL) 206 H 192 H 153 H (75-99) mg/dL 10/06/17 10/06/17 10/06/17 Range/Units 08:57 08:57 08:57 WBC 10.9 H (3.8-10.6) k/uL Hgb 10.2 L (11.4-16.0) gm/dL MCH 24.1 L (25.0-35.0) pg MCHC 29.6 L (31.0-37.0) g/dL RDW 17.4 H (11.5-15.5) % Eosinophils # 0.9 H (0-0.7) k/uL PT 17.2 H (9.0-12.0) sec INR 1.9 H (<1.2) BUN 23 H (7-17) mg/dL Glucose 141 H (74-99) mg/dL POC Glucose (mg/dL) (75-99) mg/dL 10/06/17 Range/Units 11:51 WBC (3.8-10.6) k/uL Hgb (11.4-16.0) gm/dL MCH (25.0-35.0) pg MCHC (31.0-37.0) g/dL RDW (11.5-15.5) % Eosinophils # (0-0.7) k/uL PT (9.0-12.0) sec INR (<1.2) BUN (7-17) mg/dL Glucose (74-99) mg/dL POC Glucose (mg/dL) 164 H (75-99) mg/dL Assessment and Plan Plan: Hypertensive emergency acute on chronic diastolic CHF positive jessica supratheraputic INR, with coagulopathy metabolic encephalopathy uncontrolled essential hypertension atrial fibrillation diabetes mellitus, on insulin hyperlipidemia hypertension h/o seizure h/o stroke possible vascular dementia obstructive sleep apnea Plan: this is a 72 yo F who presents with hypertensive emergency and metabolic encephalopathy. continue with the same treatment , continue with symptomatic treatment , resume home medication , monitor lytes and vitals including glucose , c/w diuretics ,c/w insuline, pt is on half the dose in the begining.c/w ISS. hold coumadin while INR is supratherapeutic . CT of the head showed multiple old infact. cardiology consult is appreciated. cardiology consult is appreciated . continue with metaprolol. GI and DVT prophylaxis , further recommendation based upon pt clinical course and progress prognosis is guarded Time with Patient: Greater than 30
[2017-10-06 17:28] LABS: Glucose,Whole Blood 196 mg/dL (75-99)
[2017-10-06] MEDS: WARFARIN 7.5 MG TAB PO SCH (17:42)
[2017-10-06] MEDS: PRAVASTATIN SODIUM 40 MG TAB PO SCH (21:51)
[2017-10-06] MEDS: PANTOPRAZOLE SODIUM 40 MG GRANULE PKT PO SCH (21:51)
[2017-10-07 00:41] LABS: Glucose,Whole Blood 180 mg/dL (75-99)
[2017-10-07] MEDS: INSULIN ASPART 100 UNIT/ML 1 ML 10 ML VIAL SQ SCH ×4 (00:49→18:03)
[2017-10-07 06:06] LABS: Glucose,Whole Blood 166 mg/dL (75-99)
[2017-10-07 06:38] VITALS: PULSE 82
[2017-10-07 07:53] LABS: INR 2.2 (<1.2)
[2017-10-07] MEDS: AMOXIC-POT CLAV 875-125MG 1 EACH TAB PO SCH (08:00)
[2017-10-07] MEDS: levETIRAcetam ORAL SOLN 500 MG/5 ML CUP PEG/G-TUBE SCH (08:00)
[2017-10-07] MEDS: METOPROLOL TARTRATE 50 MG TAB PO SCH (08:01)
[2017-10-07] MEDS: amLODIPine 5 MG TAB PO SCH (08:01)
[2017-10-07] MEDS: FUROSEMIDE 20 MG TAB PO SCH (08:01)
[2017-10-07] MEDS: ASPIRIN 81 MG PO SCH (08:01)
[2017-10-07] MEDS: POTASSIUM BICARBONATE/CIT AC 20 MEQ TABLET.EFF PO SCH (08:01)
[2017-10-07] MEDS: INSULIN DETEMIR 100 UNIT/ML 10 ML VIAL SQ SCH (08:02)
[2017-10-07 12:25] LABS: Glucose,Whole Blood 130 mg/dL (75-99)
--- NOTE | 2017-10-07 15:15 | P.DS ---
Providers Date of admission: 09/27/17 21:19 Expected date of discharge: 10/07/17 Attending physician: Kyle Lin Consults: 09/27/17 21:16 Consult Physician Routine Consulting Provider: Tristian Harman Consult Reason/Comments: chf exacerbation Do you want consulting provider notified?: Yes, Notify in am 09/27/17 21:40 Consult Physician Routine Consulting Provider: Jermain Cho Consult Reason/Comments: ICU Care Do you want consulting provider notified?: Already Contacted 10/03/17 14:37 Consult Physician Routine Consulting Provider: Alfonso Prado Consult Reason/Comments: difference in blood pressure in different arms Do you want consulting provider notified?: Yes Primary care physician: [facility] Course: Final Diagnoses: Hypertensive emergency, status post nitroglycerin drip, resolved acute on chronic diastolic CHF positive jessica supratheraputic INR, with coagulopathy metabolic encephalopathy essential hypertension Chronic atrial fibrillation, history of permanent pacemaker History of valve replacement diabetes mellitus, on insulin hyperlipidemia hypertension h/o seizure h/o stroke possible vascular dementia obstructive sleep apnea Hospital course:this is a 72 yo F with pmh of Atrial fibrillation , asthma , Diabetes Mellitus, Hypertesion , hyperlipidemia , sleep apnea on BiPAP/CPAP, h/ o breast cancer status post lumpectomy migrains who presents with altered mental status, pt could not provide information so it is obtained from medical records and staff, no family at bed side In the emergency room she was found to be quite hypertensive with the admitting blood pressure of 237/107. She was initiated on a nitroglycerin drip at 10 mcg/ m. She was started on metoprolol 75 mg twice a day. Computed tomography scan of the brain revealed a large old infarct in the right temporal lobe and left occipital lobe. No change compared to previous. No hemorrhage. This x-ray shows evidence of pulmonary edema. She is maintaining good O2 saturations in the 90s on room air. He is seen today in consultation in the intensive care unit. She is difficult to arouse. Very poor historian. White count 16.1. Hemoglobin 8.8. Creatinine 0.50. Her BP is better controlled and now SBP is about 144. she is currently only on metoprolol 75 mg bid with no nitroglycerin drip (stopped) pt can be transferred to general medical floor 09/29/2017 Patient is more awake today, she knows she is in hospital. But she couldn't remember the year, month or date. She is also transfused about person she thinks the president illness Mr. Pacheco. Patient Transferred out of the ICU today. Augmentin has been added by the pulmonary team for her UTI. Pulmonary and cardiology input is appreciated. 09/30/2017 pt still awake but confused , cardiology have evaluated pt today and plan to c/ w iv lasix and with oral diuretics. norvasc 10 mg is added , UC: enterococcus , susceptible to many abx. pt is on augmentin but still with high leukoctyosis , CXR: interstitial edema and pt is on lasix INR 2.3, resume coumadin , increase lantus to 35 U BID for uncontrolled sugar 10/01/2017 pt clinically looks the same , there were concerns for discripancy in blood pressure reading on both arms , cardiology team are following the pt and want to keep checking the bp on both sides for now with every shift. pulmonary input is appreciated c/w same treatment and pt is still on low flow oxygen via nasal cannular , WBC 15.9. Hemoglobin 10.9. Creatinine 0.50 10/02/2017 monitor BP on both side , pt is more awake and is interactive with her sister at bed side , when i asked pt today she told me she does not complain from any pain , however pt still looks lethargic . no chest pain , no dyspnea , no change in urine or bowel habits , no fever , leukocytosis is improving , pt has enterococcus in her urine culture pt is already on antibiotic , augmentin , this bact is sensitive to many antibiotics including ampicillin. pt is with h/o CVA and a fib , she was started on coumadin 7.5 QHS , f/u INR daily and adjust dose accordingly 10/03/2017 there is significant difference in BP reading between both side,we will call surgical consult , pt is more awake and is still looks lethargic . no chest pain , no dyspnea , no change in urine or bowel habits , no fever , leukocytosis is improving , pt has enterococcus in her urine culture pt is already on antibiotic , augmentin , this bact is sensitive to many antibiotics including ampicillin. 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 INR 1.1. i gave extra 3mg extra dose tonight 10/05/17 there is significant difference in BP reading between both side,we will call surgical consult , pt is more awake and is still looks lethargic . no chest pain , no dyspnea , no change in urine or bowel habits , no fever , leukocytosis is improving , pt has enterococcus in her urine culture pt is already on antibiotic , augmentin , this bact is sensitive to many antibiotics including ampicillin. 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 INR 1.1. i gave extra 3mg extra dose tonight 10/06/2017 Patient is seen and evaluated in the room at bedside;labs are reviewed with a CBC showing an improved white blood count of 10.9 from 12.0 yesterday; INR is up to 1.9; patient was given an extra dose of Coumadin of 10 mg yesterday; we will repeat a dose of 7 mg tonight and repeat PT/INR tomorrow; patient could be discharged to shelter facility once arrangements are made. Evaluated by vascular surgery, Dr. Prado, no evidence of acute ischemia noted in left arm, no surgical intervention recommended at this time. Further outpatient workup recommended. Patient has completed antibiotic therapy for acute UTI with enterococcus faecialis. Significant clinical improvement. Patient has been cleared by all Consults for discharge. Patient is being discharged to [facility] in a stable condition with guarded prognosis. Exam GENERAL: The patient is more awake today , she is alert and oriented to place, but not for time or person. HEENT: Pupils are round and equally reacting to light. EOMI. No scleral icterus. No conjunctival pallor. Normocephalic, atraumatic. No pharyngeal erythema. No thyromegaly. CARDIOVASCULAR: S1 and S2 present. No murmurs, rubs, or gallops. PULMONARY: Chest is clear to auscultation, no wheezing or crackles. ABDOMEN: Soft, nontender, nondistended, normoactive bowel sounds. No palpable organomegaly. MUSCULOSKELETAL: No joint swelling or deformity. EXTREMITIES: No cyanosis, clubbing, or pedal edema. NEUROLOGICAL: pt is confused and delirious , pupils are equal and reactive to light , SKIN: No rashes. The impression and plan of care has been dictated as directed. : I performed a history and examination of this patient, discussed the same with the dictator. I agree with the dictator's note ,documented as a scribe. Any additional findings or plans will be noted. Time taken: 35 minutes Patient Condition at Discharge: Stable Plan - Discharge Summary New Discharge Prescriptions: New amLODIPine [Norvasc] 5 mg PO DAILY #30 tab Aspirin 81 mg PO DAILY chew Furosemide [Lasix] 20 mg PO DAILY #30 tab Metoprolol Tartrate [Lopressor] 100 mg PO BID #60 tab Warfarin [Coumadin] 7.5 mg PO DAILY@1800 #30 tab Continue Digoxin [Lanoxin] 250 mcg PEG/G-TUBE DAILY@0800 Pravastatin Sodium [Pravachol] 40 mg PEG/G-TUBE HS Bisacodyl 10 mg RECTAL DAILY PRN PRN Reason: Constipation Acetaminophen Tab [Tylenol] 650 mg PEG/G-TUBE Q4H PRN PRN Reason: Pain INSULIN LISPRO (humaLOG) [humaLOG] See Protocol SQ ACHS levETIRAcetam [Keppra Oral Solution] 500 mg PEG/G-TUBE BID Lansoprazole 30 mg PEG/G-TUBE HS Ferrous Sulfate Liquid 325 mg PEG/G-TUBE HS Docusate Sodium Liq 10 mg PEG/G-TUBE HS Citalopram Hydrobromide [CeleXA] 10 mg PEG/G-TUBE DAILY@0800 Aspirin EC [Ecotrin Low Dose] 81 mg PEG/G-TUBE DAILY@0800 Changed Insulin Detemir [Levemir] 35 unit SQ BID@ #0 Discontinued Metoprolol Tartrate [Lopressor] 75 mg PEG/G-TUBE BID Warfarin [Coumadin] 2.5 mg PEG/G-TUBE SUMOTUWETH Warfarin [Coumadin] 10 mg PEG/G-TUBE HS Discharge Medication List Digoxin [Lanoxin] 250 mcg PEG/G-TUBE DAILY@0800 11/09/13 [History] Pravastatin Sodium [Pravachol] 40 mg PEG/G-TUBE HS 05/20/17 [History] Acetaminophen Tab [Tylenol] 650 mg PEG/G-TUBE Q4H PRN 09/27/17 [History] Aspirin EC [Ecotrin Low Dose] 81 mg PEG/G-TUBE DAILY@0800 09/27/17 [History] Bisacodyl 10 mg RECTAL DAILY PRN 09/27/17 [History] Citalopram Hydrobromide [CeleXA] 10 mg PEG/G-TUBE DAILY@0800 09/27/17 [History] Docusate Sodium Liq 10 mg PEG/G-TUBE HS 09/27/17 [History] Ferrous Sulfate Liquid 325 mg PEG/G-TUBE HS 09/27/17 [History] INSULIN LISPRO (humaLOG) [humaLOG] See Protocol SQ ACHS 09/27/17 [History] Lansoprazole 30 mg PEG/G-TUBE HS 09/27/17 [History] levETIRAcetam [Keppra Oral Solution] 500 mg PEG/G-TUBE BID 09/27/17 [History] Aspirin 81 mg PO DAILY chew 10/05/17 [Rx] Furosemide [Lasix] 20 mg PO DAILY #30 tab 10/05/17 [Rx] Metoprolol Tartrate [Lopressor] 100 mg PO BID #60 tab 10/05/17 [Rx] Warfarin [Coumadin] 7.5 mg PO DAILY@1800 #30 tab 10/05/17 [Rx] amLODIPine [Norvasc] 5 mg PO DAILY #30 tab 10/05/17 [Rx] Insulin Detemir [Levemir] 35 unit SQ BID@0800,2000 #0 10/07/17 [Rx] Follow up Appointment(s)/Referral(s): [facility] [Provider Group] - 1 Week Jermain Cho DO [Doctor of Osteopathic Medicine] - 1 Week Nicko Seo MD [Primary Care Provider] - 1 Week (After DC from subacute rehab) Alfonso Prado MD [STAFF PHYSICIAN] - 2 Weeks Ilir Quintero DO [STAFF PHYSICIAN] - 3 Days Patient Instructions/Handouts: Heart Failure (DC), Heart Healthy Diet (DC), Type 2 Diabetes in Adults (DC), Hypertension (DC), Pneumonia (DC) Activity/Diet/Wound Care/Special Instructions: [facility] E[facility] PT/INR daily , cbc,bmp in 3 days NPO PEG tube, 2Cal HN @goal 30 Free water 30 MLS every 4h Strict aspiration precautions left side weakness from old CVA activity as tolerated Discharge Disposition: TRANSFER TO SNF/ECF
[2017-10-07] MEDS: WARFARIN 7.5 MG TAB PO SCH (17:19)
[2017-10-07 17:21] VITALS: BP 136/61; RESP 18; TEMP 96.9
[2017-10-07] MEDS: ACETAMINOPHEN TAB 325 MG TAB PEG/G-TUBE PRN (17:32)
== END 2017-10-07 18:08 | DRG 304 ==
LOC: EC 16:54 → 6ICU 21:19 → 6SEL 09-29 15:58 → 4MS4W 10-03 16:09
PROVIDERS: ADMIT Hospitalist; ATTEND Hospitalist
DX: I16.1 Hypertensive emergency (principal); G93.41 Metabolic encephalopathy; I50.33 Acute on chronic diastolic (congestive) heart failure; E87.2 Acidosis; N39.0 Urinary tract infection, site not specified; R44.3 Hallucinations, unspecified; I48.92 Unspecified atrial flutter; I27.20 Pulmonary hypertension, unspecified; B95.2 Enterococcus as the cause of diseases classified elsewhere; E11.9 Type 2 diabetes mellitus without complications; E78.5 Hyperlipidemia, unspecified; R79.1 Abnormal coagulation profile; G43.909 Migraine, unspecified, not intractable, without status migrainosus; G47.33 Obstructive sleep apnea (adult) (pediatric); I11.0 Hypertensive heart disease with heart failure; I44.0 Atrioventricular block, first degree; I48.2 Chronic atrial fibrillation; J45.909 Unspecified asthma, uncomplicated; F01.50 Vascular dementia, unspecified severity, without behavioral disturbance, psychotic disturbance, mood disturbance, and anxiety; R32 Unspecified urinary incontinence; Z79.01 Long term (current) use of anticoagulants; Z79.4 Long term (current) use of insulin; Z79.82 Long term (current) use of aspirin; Z79.899 Other long term (current) drug therapy; Z85.3 Personal history of malignant neoplasm of breast; Z86.73 Personal history of transient ischemic attack (TIA), and cerebral infarction without residual deficits; Z87.891 Personal history of nicotine dependence; Z90.710 Acquired absence of both cervix and uterus; Z95.0 Presence of cardiac pacemaker; Z95.2 Presence of prosthetic heart valve; Z98.42 Cataract extraction status, left eye; Z98.41 Cataract extraction status, right eye; Z96.1 Presence of intraocular lens; Z96.641 Presence of right artificial hip joint; Z86.010 Personal history of colon polyps; Z88.1 Allergy status to other antibiotic agents; Z80.0 Family history of malignant neoplasm of digestive organs; Z82.3 Family history of stroke; Z83.79 Family history of other diseases of the digestive system
CPT/HCPCS: 36415; 70450; 71045; 80048; 80053; 81001; 82550; 82553; 83605; 83735; 84100; 84484; 85025; 85610; 85730; 87040; 87077; 87086; 87186; 93005; 96361; 96365; 96366; 99285

== ENCOUNTER 2017-11-09 22:16 | Emergency (ER) | payer MEDICARE ==
[2017-11-09 22:23] VITALS: RESP 16; TEMP 98.1
[2017-11-09 23:46] LABS: Anisocytosis Slight; Basophils % (A) 0 %; Eosinophils # (A) 0.5 k/uL (0-0.7); Eosinophils % (A) 4 %; HCT 39.9 % (34.0-46.0); HGB 12.4 gm/dL (11.4-16.0); Hypochromasia Slight; Lymphocytes # (A) 2.3 k/uL (1.0-4.8); Lymphocytes % (A) 19 %; MCHC 31.1 g/dL (31.0-37.0); MCV 77.2 fL (80.0-100.0); Mean Platelet Volume 7.9; Microcytosis Slight; Monocytes # (A) 0.6 k/uL (0-1.0); Monocytes % (A) 5 %; Neutrophils # (A) 8.3 k/uL (1.3-7.7); Neutrophils % (A) 70 %; Platelet Count 273 k/uL (150-450); RBC 5.17 m/uL (3.80-5.40); RDW 17.7 % (11.5-15.5); WBC 11.9 k/uL (3.8-10.6)
[2017-11-09 23:54] LABS: Amorphous Sediment,Urine Rare /hpf; Appearance,Urine Cloudy (Clear); Bilirubin,Urine Negative (Negative); Blood,Urine Negative (Negative); Color,Urine Light Yellow; Glucose,Urine (UA) Negative (Negative); Ketones,Urine Negative (Negative); Leukocyte Esterase,Urine Negative (Negative); Mucus,Urine Rare /hpf; Nitrite,Urine Negative (Negative); Protein,Urine Negative (Negative); Specific Gravity,Urine 1.009 (1.001-1.035); Squamous Epithelial Cell,Urine <1 /hpf (0-4); Urobilinogen,Urine <2.0 mg/dL (<2.0)
[2017-11-09 23:55] LABS: AST 33 U/L (14-36); Albumin 3.4 g/dL (3.5-5.0); Amylase 47 U/L (30-110); Anion Gap 8 mmol/L; Blood Urea Nitrogen 21 mg/dL (7-17); Calcium 9.6 mg/dL (8.4-10.2); Carbon Dioxide 26 mmol/L (22-30); Chloride 104 mmol/L (98-107); Glucose 92 mg/dL (74-99); Lipase 166 U/L (23-300); Potassium 4.3 mmol/L (3.5-5.1); Sodium 138 mmol/L (137-145); Total Bilirubin 0.5 mg/dL (0.2-1.3); Total Protein 6.7 g/dL (6.3-8.2)
[2017-11-09 23:56] LABS: ALT 34 U/L (9-52); Alkaline Phosphatase 105 U/L (38-126)
[2017-11-10] LABS: Amphetamine Screen,Urine Not Detected (NotDetected); Barbiturate Screen,Urine Not Detected (NotDetected); Benzodiazepines Screen,Urine Not Detected (NotDetected); Cocaine Screen,Urine Not Detected (NotDetected); Methadone Screen, Urine Not Detected (NotDetected); Opiate Screen,Urine Not Detected (NotDetected); Oxycodone Screen, Urine Not Detected (NotDetected); Phencyclidine Screen,Urine Not Detected (NotDetected); Tricyclic Antidepressant,Urine Not Detected (NotDetected); Urn Cannabinoid Scrn Not Detected (NotDetected)
--- NOTE | 2017-11-10 00:01 | ED ---
Abdominal Pain HPI - General Chief Complaint: Abdominal Pain Stated Complaint: PEG TUBE ISSUE Time Seen by Provider: 11/09/17 22:33 Source: EMS Mode of arrival: EMS Limitations: altered mental status (Moderate underlying dementia) - History of Present Illness Initial Comments: This patient is a 72-year-old woman transferred here from the skilled nursing to have evaluation. At the home she was having complains of intense abdominal pain and it sounds like also some nausea. There was concern about visitors possibly having administered something to the patient's PEG tube. When I interview the patient, she is not having any complaints. She denies any abdominal pain when I interview her. MD Complaint: abdominal pain Onset/Timin -: hour(s) Associated Symptoms: denies other symptoms - Related Data Home Medications Medication Instructions Recorded Confirmed Pravastatin Sodium [Pravachol] 40 mg PEG/G-TUBE HS 05/20/17 09/27/17 Acetaminophen Tab [Tylenol] 650 mg PEG/G-TUBE Q4H PRN 09/27/17 09/27/17 Aspirin EC [Ecotrin Low Dose] 81 mg PEG/G-TUBE DAILY@0800 09/27/17 09/27/17 Bisacodyl 10 mg RECTAL DAILY PRN 09/27/17 09/27/17 Citalopram Hydrobromide [CeleXA] 10 mg PEG/G-TUBE DAILY@0800 09/27/17 09/27/17 Docusate Sodium Liq 10 mg PEG/G-TUBE HS 09/27/17 09/27/17 Ferrous Sulfate Liquid 325 mg PEG/G-TUBE HS 09/27/17 09/27/17 INSULIN LISPRO (humaLOG) [humaLOG] See Protocol SQ ACHS 09/27/17 09/27/17 Lansoprazole 30 mg PEG/G-TUBE HS 09/27/17 09/27/17 levETIRAcetam [Keppra Oral 500 mg PEG/G-TUBE BID 09/27/17 09/27/17 Solution] Previous Rx's Medication Instructions Recorded Aspirin 81 mg PO DAILY chew 10/05/17 Furosemide [Lasix] 20 mg PO DAILY #30 tab 10/05/17 Metoprolol Tartrate [Lopressor] 100 mg PO BID #60 tab 10/05/17 Warfarin [Coumadin] 7.5 mg PO DAILY@1800 #30 tab 10/05/17 amLODIPine [Norvasc] 5 mg PO DAILY #30 tab 10/05/17 Insulin Detemir [Levemir] 35 unit SQ BID@0800,2000 #0 10/07/17 Allergies Allergy/AdvReac Type Severity Reaction Status Date / Time ciprofloxacin [From Cipro] Allergy Rash/Hives Verified 11/09/17 22:23 ciprofloxacin HCl Allergy Rash/Hives Verified 11/09/17 22:23 [From Cipro] Quinolones Allergy Unknown Verified 11/09/17 22:23 Review of Systems ROS Statement: Those systems with pertinent positive or pertinent negative responses have been documented in the HPI. ROS Other: All systems not noted in ROS Statement are negative. Limitations: ROS unobtainable due to patients medical condition (Dementia) Respiratory: Denies: cough Cardiovascular: Denies: chest pain Gastrointestinal: Reports: as per HPI. Denies: abdominal pain Musculoskeletal: Denies: back pain Neurological: Denies: headache Past Medical History Past Medical History: Atrial Fibrillation, Atrial Flutter, Asthma, Cancer, Diabetes Mellitus, Hyperlipidemia, Hypertension, Sleep Apnea/CPAP/BIPAP Additional Past Medical History / Comment(s): BREAST CA HAD LT LUMPECTOMY, MIGRAINES History of Any Multi-Drug Resistant Organisms: None Reported Past Surgical History: Breast Surgery, Orthopedic Surgery Additional Past Surgical History / Comment(s): LUMPECTOMY- LEFT BREAST FOR TREATMENT OF CA, D AND C, SINUS HAS A MECHANICAL VALVE, PACEMEKER, BETSY CATARACT SX -LENS IMPLANTS, SX FOR BROKEN RT FEMUR HAS METAL IN PLACE, LT ROTATOR CUFF SX. Mitral valve replacement mechanical, right hip fracture requiring right hip hemiarthroplasty in March 2012 hemiarthroplasty in the 2012 left breast lumpectomy with radiation treatment: Polypectomy spinal cord cyst removal partial hysterectomy Past Anesthesia/Blood Transfusion Reactions: No Reported Reaction Date of Last Stent Placement:: 2004? Type of Cardiac Device: Permanent Pacemaker Device Placement Date:: 2008 Past Psychological History: No Psychological Hx Reported Smoking Status: Former smoker Past Alcohol Use History: Rare Past Drug Use History: None Reported - Past Family History Father Additional Family Medical History / Comment(s): OF BLEEDING ULCER AT AGE 64 mother with colon cancer Mother Family Medical History: Cancer, CVA/TIA Additional Family Medical History / Comment(s): 88 YEARS OLD- HX STROKES, CANCER INTESTINAKL TRACT General Exam Limitations: no limitations General appearance: alert, in no apparent distress Head exam: Present: atraumatic, normocephalic Eye exam: Present: normal appearance. Absent: scleral icterus, conjunctival injection ENT exam: Present: mucous membranes dry Neck exam: Present: normal inspection Respiratory exam: Present: normal lung sounds bilaterally. Absent: respiratory distress, wheezes, rales, rhonchi Cardiovascular Exam: Present: regular rate, normal rhythm, normal heart sounds. Absent: systolic murmur, diastolic murmur, rubs, gallop GI/Abdominal exam: Present: soft, normal bowel sounds, other (There is a gastric tube in the left upper quadrant. Insertion site appears normal. No abdominal tenderness.). Absent: distended, tenderness, guarding, rebound, rigid , mass, pulsatile mass, hernia Extremities exam: Present: normal capillary refill. Absent: pedal edema, calf tenderness Neurological exam: Present: alert. Absent: oriented X3 (Patient is oriented to person and recognizes she is in a health care facility.) Skin exam: Present: warm, dry, intact, normal color. Absent: rash Course Vital Signs 11/09/17 11/10/17 22:17 00:15 Temperature 98.1 F Pulse Rate 71 67 Respiratory 16 16 Rate Blood Pressure 153/69 145/65 O2 Sat by Pulse 99 98 Oximetry Medical Decision Making - Medical Decision Making Patient is 72-year-old woman transferred here from skilled nursing for abdominal pain. Her pain does appear to have resolved. She denies any complaints here. Her abdominal exam is benign. Given the question of exposure, labs are checked , revealing only some minimal leukocytosis. Patient will be discharged back to the long-term care facility. - Lab Data Result diagrams: 11/09/17 23:16 11/09/17 23:16 Lab Results 11/09/17 11/09/17 11/09/17 Range/Units 23:16 23:16 23:16 WBC 11.9 H (3.8-10.6) k/uL RBC 5.17 (3.80-5.40) m/uL Hgb 12.4 (11.4-16.0) gm/dL Hct 39.9 (34.0-46.0) % MCV 77.2 L (80.0-100.0) fL MCH 24.0 L (25.0-35.0) pg MCHC 31.1 (31.0-37.0) g/dL RDW 17.7 H (11.5-15.5) % Plt Count 273 (150-450) k/uL Neutrophils % 70 % Lymphocytes % 19 % Monocytes % 5 % Eosinophils % 4 % Basophils % 0 % Neutrophils # 8.3 H (1.3-7.7) k/uL Lymphocytes # 2.3 (1.0-4.8) k/uL Monocytes # 0.6 (0-1.0) k/uL Eosinophils # 0.5 (0-0.7) k/uL Basophils # 0.0 (0-0.2) k/uL Hypochromasia Slight Anisocytosis Slight Microcytosis Slight PT (9.0-12.0) sec INR (<1.2) APTT (22.0-30.0) sec Sodium 138 (137-145) mmol/L Potassium 4.3 (3.5-5.1) mmol/L Chloride 104 (98-107) mmol/L Carbon Dioxide 26 (22-30) mmol/L Anion Gap 8 mmol/L BUN 21 H (7-17) mg/dL Creatinine 0.50 L (0.52-1.04) mg/dL Est GFR (CKD-EPI)AfAm >90 (>60 ml/min/1.73 sqM) Est GFR (CKD-EPI)NonAf >90 (>60 ml/min/1.73 sqM) Glucose 92 (74-99) mg/dL Calcium 9.6 (8.4-10.2) mg/dL Total Bilirubin 0.5 (0.2-1.3) mg/dL AST 33 (14-36) U/L ALT 34 (9-52) U/L Alkaline Phosphatase 105 (38-126) U/L Total Protein 6.7 (6.3-8.2) g/dL Albumin 3.4 L (3.5-5.0) g/dL Amylase 47 (30-110) U/L Lipase 166 (23-300) U/L Urine Color Light Yellow Urine Appearance Cloudy H (Clear) Urine pH 8.0 (5.0-8.0) Ur Specific [place] 1.009 (1.001-1.035) Urine Protein Negative (Negative) Urine Glucose (UA) Negative (Negative) Urine Ketones Negative (Negative) Urine Blood Negative (Negative) Urine Nitrite Negative (Negative) Urine Bilirubin Negative (Negative) Urine Urobilinogen <2.0 (<2.0) mg/dL Ur Leukocyte Esterase Negative (Negative) Ur Squamous Epith Cells <1 (0-4) /hpf Amorphous Sediment Rare H (None) /hpf Urine Mucus Rare H (None) /hpf Urine Opiates Screen Not Detected (NotDetected) Ur Oxycodone Screen Not Detected (NotDetected) Urine Methadone Screen Not Detected (NotDetected) Ur Propoxyphene Screen Not Detected (NotDetected) Ur Barbiturates Screen Not Detected (NotDetected) U Tricyclic Antidepress Not Detected (NotDetected) Ur Phencyclidine Scrn Not Detected (NotDetected) Ur Amphetamines Screen Not Detected (NotDetected) U Methamphetamines Scrn Not Detected (NotDetected) U Benzodiazepines Scrn Not Detected (NotDetected) Urine Cocaine Screen Not Detected (NotDetected) U Marijuana (THC) Screen Not Detected (NotDetected) 11/09/17 Range/Units 23:51 WBC (3.8-10.6) k/uL RBC (3.80-5.40) m/uL Hgb (11.4-16.0) gm/dL Hct (34.0-46.0) % MCV (80.0-100.0) fL MCH (25.0-35.0) pg MCHC (31.0-37.0) g/dL RDW (11.5-15.5) % Plt Count (150-450) k/uL Neutrophils % % Lymphocytes % % Monocytes % % Eosinophils % % Basophils % % Neutrophils # (1.3-7.7) k/uL Lymphocytes # (1.0-4.8) k/uL Monocytes # (0-1.0) k/uL Eosinophils # (0-0.7) k/uL Basophils # (0-0.2) k/uL Hypochromasia Anisocytosis Microcytosis PT 15.4 H (9.0-12.0) sec INR 1.7 H (<1.2) APTT 27.6 (22.0-30.0) sec Sodium (137-145) mmol/L Potassium (3.5-5.1) mmol/L Chloride (98-107) mmol/L Carbon Dioxide (22-30) mmol/L Anion Gap mmol/L BUN (7-17) mg/dL Creatinine (0.52-1.04) mg/dL Est GFR (CKD-EPI)AfAm (>60 ml/min/1.73 sqM) Est GFR (CKD-EPI)NonAf (>60 ml/min/1.73 sqM) Glucose (74-99) mg/dL Calcium (8.4-10.2) mg/dL Total Bilirubin (0.2-1.3) mg/dL AST (14-36) U/L ALT (9-52) U/L Alkaline Phosphatase (38-126) U/L Total Protein (6.3-8.2) g/dL Albumin (3.5-5.0) g/dL Amylase (30-110) U/L Lipase (23-300) U/L Urine Color Urine Appearance (Clear) Urine pH (5.0-8.0) Ur Specific [place] (1.001-1.035) Urine Protein (Negative) Urine Glucose (UA) (Negative) Urine Ketones (Negative) Urine Blood (Negative) Urine Nitrite (Negative) Urine Bilirubin (Negative) Urine Urobilinogen (<2.0) mg/dL Ur Leukocyte Esterase (Negative) Ur Squamous Epith Cells (0-4) /hpf Amorphous Sediment (None) /hpf Urine Mucus (None) /hpf Urine Opiates Screen (NotDetected) Ur Oxycodone Screen (NotDetected) Urine Methadone Screen (NotDetected) Ur Propoxyphene Screen (NotDetected) Ur Barbiturates Screen (NotDetected) U Tricyclic Antidepress (NotDetected) Ur Phencyclidine Scrn (NotDetected) Ur Amphetamines Screen (NotDetected) U Methamphetamines Scrn (NotDetected) U Benzodiazepines Scrn (NotDetected) Urine Cocaine Screen (NotDetected) U Marijuana (THC) Screen (NotDetected) Disposition Clinical Impression: Abdominal pain Disposition: HOME SELF-CARE Condition: Fair Instructions: Abdominal Pain (ED) Is patient prescribed a controlled substance at d/c from ED?: No Referrals: Ilir Quintero DO [Primary Care Provider] - 1-2 days
[2017-11-10 00:16] VITALS: BP 145/65; PULSE 67
[2017-11-10 00:28] LABS: INR 1.7 (<1.2); Partial Thromboplastin Time 27.6 sec (22.0-30.0); Prothrombin Time 15.4 sec (9.0-12.0)
== END 2017-11-10 00:40 | disposition home or self-care (01) ==
LOC: EC 22:16
DX: R10.12 Left upper quadrant pain (principal); R11.0 Nausea; I48.91 Unspecified atrial fibrillation; I48.92 Unspecified atrial flutter; J45.909 Unspecified asthma, uncomplicated; E11.9 Type 2 diabetes mellitus without complications; E78.5 Hyperlipidemia, unspecified; I10 Essential (primary) hypertension; G47.30 Sleep apnea, unspecified; Z85.3 Personal history of malignant neoplasm of breast; Z87.891 Personal history of nicotine dependence; Z79.82 Long term (current) use of aspirin; Z79.4 Long term (current) use of insulin; Z79.899 Other long term (current) drug therapy; Z88.1 Allergy status to other antibiotic agents; Z95.2 Presence of prosthetic heart valve; Z95.0 Presence of cardiac pacemaker; Z93.1 Gastrostomy status
CPT/HCPCS: 36415; 80053; 80306; 81001; 82150; 83690; 85025; 85610; 85730; 99284

== ENCOUNTER 2018-05-30 01:56 | Inpatient (IN) | payer MEDICARE ==
[2018-05-30 02:23] LABS: Anisocytosis Slight; Basophils % (A) 0 %; Eosinophils # (A) 0.2 k/uL (0-0.7); Eosinophils % (A) 1 %; HCT 36.7 % (34.0-46.0); HGB 11.8 gm/dL (11.4-16.0); Lymphocytes # (A) 1.1 k/uL (1.0-4.8); Lymphocytes % (A) 8 %; MCH 25.6 pg (25.0-35.0); MCHC 32.1 g/dL (31.0-37.0); MCV 79.6 fL (80.0-100.0); Mean Platelet Volume 8.1; Microcytosis Slight; Monocytes # (A) 0.6 k/uL (0-1.0); Monocytes % (A) 4 %; Neutrophils % (A) 86 %; Platelet Count 297 k/uL (150-450); RBC 4.61 m/uL (3.80-5.40); RDW 17.1 % (11.5-15.5); WBC 14.1 k/uL (3.8-10.6)
[2018-05-30 02:39] LABS: INR 1.7 (<1.2); Partial Thromboplastin Time 29.4 sec (22.0-30.0); Prothrombin Time 16.8 sec (9.0-12.0)
[2018-05-30 02:43] LABS: ALT 28 U/L (9-52); AST 25 U/L (14-36); Albumin 3.2 g/dL (3.5-5.0); Alkaline Phosphatase 142 U/L (38-126); Anion Gap 7 mmol/L; Blood Urea Nitrogen 25 mg/dL (7-17); Calcium 9.3 mg/dL (8.4-10.2); Carbon Dioxide 30 mmol/L (22-30); Chloride 99 mmol/L (98-107); Glucose 167 mg/dL (74-99); Potassium 4.1 mmol/L (3.5-5.1); Sodium 136 mmol/L (137-145); Total Bilirubin 0.6 mg/dL (0.2-1.3); Total Protein 6.3 g/dL (6.3-8.2)
--- NOTE | 2018-05-30 03:07 | ED ---
General Adult HPI - General Chief complaint: Nausea/Vomiting/Diarrhea Stated complaint: Nausea, Vomiting Time Seen by Provider: 05/30/18 02:04 Source: EMS Mode of arrival: EMS Limitations: altered mental status - History of Present Illness Initial comments: Ariane is a 73-year-old female presents to the past medical history most significant for stroke with resultant debility, PEG tube, limited verbal ability who is brought to the emergency department today via EMS from a [facility]pc facility with a report of 2 days of vomiting and diarrhea. Nursing staff at that facility report that multiple residents have similar symptoms however Ariane appeared more dehydrated and unwell today which prompted them to send her to the ER for further evaluation. Ariane offers no meaningful history. Patient's son at bedside states that he talk to staff earlier in the day and was advised that a stomach flu is going around the facility and that she had been vomiting and having diarrhea for 2 days duration. He also notes that they've been complaining recently of progressively worsening swelling of her extremities and were concerned about this. - Related Data Home Medications Medication Instructions Recorded Confirmed Pravastatin Sodium [Pravachol] 40 mg PEG/G-TUBE HS 05/20/17 09/27/17 Acetaminophen Tab [Tylenol] 650 mg PEG/G-TUBE Q4H PRN 09/27/17 09/27/17 Aspirin EC [Ecotrin Low Dose] 81 mg PEG/G-TUBE DAILY@0800 09/27/17 09/27/17 Bisacodyl 10 mg RECTAL DAILY PRN 09/27/17 09/27/17 Citalopram Hydrobromide [CeleXA] 10 mg PEG/G-TUBE DAILY@0800 09/27/17 09/27/17 Docusate Sodium Liq 10 mg PEG/G-TUBE HS 09/27/17 09/27/17 Ferrous Sulfate Liquid 325 mg PEG/G-TUBE HS 09/27/17 09/27/17 INSULIN LISPRO (humaLOG) [humaLOG] See Protocol SQ ACHS 09/27/17 09/27/17 Lansoprazole 30 mg PEG/G-TUBE HS 09/27/17 09/27/17 levETIRAcetam [Keppra Oral 500 mg PEG/G-TUBE BID 09/27/17 09/27/17 Solution] Previous Rx's Medication Instructions Recorded Aspirin 81 mg PO DAILY chew 10/05/17 Furosemide [Lasix] 20 mg PO DAILY #30 tab 10/05/17 Metoprolol Tartrate [Lopressor] 100 mg PO BID #60 tab 10/05/17 Warfarin [Coumadin] 7.5 mg PO DAILY@1800 #30 tab 10/05/17 amLODIPine [Norvasc] 5 mg PO DAILY #30 tab 10/05/17 Insulin Detemir (Levemir) [Levemir] 35 unit SQ BID@0800,2000 #0 10/07/17 Allergies Allergy/AdvReac Type Severity Reaction Status Date / Time ciprofloxacin [From Cipro] Allergy Rash/Hives Verified 05/30/18 02:03 ciprofloxacin HCl Allergy Rash/Hives Verified 05/30/18 02:03 [From Cipro] Quinolones Allergy Unknown Verified 05/30/18 02:03 Review of Systems ROS Statement: Those systems with pertinent positive or pertinent negative responses have been documented in the HPI. ROS Other: All systems not noted in ROS Statement are negative. Past Medical History Past Medical History: Atrial Fibrillation, Atrial Flutter, Asthma, Cancer, CVA/TIA, Diabetes Mellitus, Hyperlipidemia, Hypertension, Sleep Apnea/CPAP/BIPAP Additional Past Medical History / Comment(s): BREAST CA HAD LT LUMPECTOMY, MIGRAINES History of Any Multi-Drug Resistant Organisms: None Reported Past Surgical History: Breast Surgery, Orthopedic Surgery Additional Past Surgical History / Comment(s): LUMPECTOMY- LEFT BREAST FOR TREATMENT OF CA, D AND C, SINUS HAS A MECHANICAL VALVE, PACEMEKER, BETSY CATARACT SX -LENS IMPLANTS, SX FOR BROKEN RT FEMUR HAS METAL IN PLACE, LT ROTATOR CUFF SX. Mitral valve replacement mechanical, right hip fracture requiring right hip hemiarthroplasty in March 2012 hemiarthroplasty in the 2013 left breast lumpectomy with radiation treatment: Polypectomy spinal cord cyst removal partial hysterectomy Past Anesthesia/Blood Transfusion Reactions: No Reported Reaction Date of Last Stent Placement:: 2004? Type of Cardiac Device: Permanent Pacemaker Device Placement Date:: 2008 Past Psychological History: No Psychological Hx Reported Smoking Status: Former smoker Past Alcohol Use History: Rare Past Drug Use History: None Reported - Past Family History Father Additional Family Medical History / Comment(s): OF BLEEDING ULCER AT AGE 64 mother with colon cancer Mother Family Medical History: Cancer, CVA/TIA Additional Family Medical History / Comment(s): 88 YEARS OLD- HX STROKES, CANCER INTESTINAKL TRACT General Exam - General Exam Comments Initial Comments: Physical Exam GENERAL: Likely ill-appearing, debilitated, bed bound Anasarca HENT: Normocephalic, Atraumatic. EYES: Eye and bilaterally Patient primarily keeps her eyes gazing up towards and fixed to the right though she does have ability to move them. PULMONARY: Unlabored respirations. No audible rales rhonchi or wheezing was noted. CARDIOVASCULAR: Regular rate and rhythm Mechanical valve. ABDOMEN: PEG tube in place, no signs of surrounding infection Abdomen is mildly distended does not appear to be tender to palpation SKIN: Skin is clear with no lesions or rashes and otherwise unremarkable. : Deferred NEUROLOGIC: Nonverbal Response to verbal interaction MUSCULOSKELETAL: Generalized muscle atrophy Anasarca PSYCHIATRIC: Unable to assess Limitations: no limitations Limitations: altered mental status Course Vital Signs 05/30/18 05/30/18 05/30/18 01:59 02:30 03:00 Temperature 100.8 F H Pulse Rate 87 85 87 Respiratory 18 20 23 Rate Blood Pressure 149/68 134/79 137/71 O2 Sat by Pulse 94 L 94 L 94 L Oximetry Medical Decision Making - Medical Decision Making Patient was seen and evaluated history was obtained from caregivers at fpc facility, EMS and patient's family This is a generally debilitated elderly female. 2 dependent who has been vomiting and having diarrhea for 2 days duration with multiple sick contacts at her fpc facility On arrival patient is noted be mildly febrile with an oral temp of 100.8 there for full sepsis workup was initiated including influenza A and B testing Labs reveal leukocytosis, elevated BUN and creatinine suggestive of dehydration, mild elevation of lactic acid, influenza is negative patient's urinalysis with n o signs of infection IV fluids were ordered due to the dehydration and lactic acidosis at elevation X-ray suggestive of ileus Patient's PEG tube was open to event and approximately 700 mL of 2 feedings was drained from the stomach patient's stomach distention decreased after this At this time I will plan to admit the patient for ileus, dehydration, lactic acidosis I will order gentle IV fluids In addition and noted that the patient has a low albumin level and his tube feed dependent I would recommend the patient have a consult with [facility] precinct for recommendations on more adequate tube feeding - Lab Data Result diagrams: 05/30/18 02:00 05/30/18 02:00 Lab Results 05/30/18 05/30/18 05/30/18 Range/Units 02:00 02:00 02:00 WBC 14.1 H (3.8-10.6) k/uL RBC 4.61 (3.80-5.40) m/uL Hgb 11.8 (11.4-16.0) gm/dL Hct 36.7 (34.0-46.0) % MCV 79.6 L (80.0-100.0) fL MCH 25.6 (25.0-35.0) pg MCHC 32.1 (31.0-37.0) g/dL RDW 17.1 H (11.5-15.5) % Plt Count 297 (150-450) k/uL Neutrophils % 86 % Lymphocytes % 8 % Monocytes % 4 % Eosinophils % 1 % Basophils % 0 % Neutrophils # 12.0 H (1.3-7.7) k/uL Lymphocytes # 1.1 (1.0-4.8) k/uL Monocytes # 0.6 (0-1.0) k/uL Eosinophils # 0.2 (0-0.7) k/uL Basophils # 0.0 (0-0.2) k/uL Anisocytosis Slight Microcytosis Slight PT (9.0-12.0) sec INR (<1.2) APTT (22.0-30.0) sec Sodium 136 L (137-145) mmol/L Potassium 4.1 (3.5-5.1) mmol/L Chloride 99 (98-107) mmol/L Carbon Dioxide 30 (22-30) mmol/L Anion Gap 7 mmol/L BUN 25 H (7-17) mg/dL Creatinine 0.35 L (0.52-1.04) mg/dL Est GFR (CKD-EPI)AfAm >90 (>60 ml/min/1.73 sqM) Est GFR (CKD-EPI)NonAf >90 (>60 ml/min/1.73 sqM) Glucose 167 H (74-99) mg/dL Plasma Lactic Acid Buddy 2.3 H* (0.7-2.0) mmol/L Calcium 9.3 (8.4-10.2) mg/dL Total Bilirubin 0.6 (0.2-1.3) mg/dL AST 25 (14-36) U/L ALT 28 (9-52) U/L Alkaline Phosphatase 142 H (38-126) U/L Troponin I (0.000-0.034) ng/mL Total Protein 6.3 (6.3-8.2) g/dL Albumin 3.2 L (3.5-5.0) g/dL Urine Color Urine Appearance (Clear) Urine pH (5.0-8.0) Ur Specific [place] (1.001-1.035) Urine Protein (Negative) Urine Glucose (UA) (Negative) Urine Ketones (Negative) Urine Blood (Negative) Urine Nitrite (Negative) Urine Bilirubin (Negative) Urine Urobilinogen (<2.0) mg/dL Ur Leukocyte Esterase (Negative) Influenza Type A RNA (Not Detectd) Influenza Type B (PCR) (Not Detectd) 05/30/18 05/30/18 05/30/18 Range/Units 02:00 02:00 02:19 WBC (3.8-10.6) k/uL RBC (3.80-5.40) m/uL Hgb (11.4-16.0) gm/dL Hct (34.0-46.0) % MCV (80.0-100.0) fL MCH (25.0-35.0) pg MCHC (31.0-37.0) g/dL RDW (11.5-15.5) % Plt Count (150-450) k/uL Neutrophils % % Lymphocytes % % Monocytes % % Eosinophils % % Basophils % % Neutrophils # (1.3-7.7) k/uL Lymphocytes # (1.0-4.8) k/uL Monocytes # (0-1.0) k/uL Eosinophils # (0-0.7) k/uL Basophils # (0-0.2) k/uL Anisocytosis Microcytosis PT 16.8 H (9.0-12.0) sec INR 1.7 H (<1.2) APTT 29.4 (22.0-30.0) sec Sodium (137-145) mmol/L Potassium (3.5-5.1) mmol/L Chloride (98-107) mmol/L Carbon Dioxide (22-30) mmol/L Anion Gap mmol/L BUN (7-17) mg/dL Creatinine (0.52-1.04) mg/dL Est GFR (CKD-EPI)AfAm (>60 ml/min/1.73 sqM) Est GFR (CKD-EPI)NonAf (>60 ml/min/1.73 sqM) Glucose (74-99) mg/dL Plasma Lactic Acid Buddy (0.7-2.0) mmol/L Calcium (8.4-10.2) mg/dL Total Bilirubin (0.2-1.3) mg/dL AST (14-36) U/L ALT (9-52) U/L Alkaline Phosphatase (38-126) U/L Troponin I <0.012 (0.000-0.034) ng/mL Total Protein (6.3-8.2) g/dL Albumin (3.5-5.0) g/dL Urine Color Urine Appearance (Clear) Urine pH (5.0-8.0) Ur Specific [place] (1.001-1.035) Urine Protein (Negative) Urine Glucose (UA) (Negative) Urine Ketones (Negative) Urine Blood (Negative) Urine Nitrite (Negative) Urine Bilirubin (Negative) Urine Urobilinogen (<2.0) mg/dL Ur Leukocyte Esterase (Negative) Influenza Type A RNA Not Detected (Not Detectd) Influenza Type B (PCR) Not Detected (Not Detectd) 05/30/18 Range/Units 02:33 WBC (3.8-10.6) k/uL RBC (3.80-5.40) m/uL Hgb (11.4-16.0) gm/dL Hct (34.0-46.0) % MCV (80.0-100.0) fL MCH (25.0-35.0) pg MCHC (31.0-37.0) g/dL RDW (11.5-15.5) % Plt Count (150-450) k/uL Neutrophils % % Lymphocytes % % Monocytes % % Eosinophils % % Basophils % % Neutrophils # (1.3-7.7) k/uL Lymphocytes # (1.0-4.8) k/uL Monocytes # (0-1.0) k/uL Eosinophils # (0-0.7) k/uL Basophils # (0-0.2) k/uL Anisocytosis Microcytosis PT (9.0-12.0) sec INR (<1.2) APTT (22.0-30.0) sec Sodium (137-145) mmol/L Potassium (3.5-5.1) mmol/L Chloride (98-107) mmol/L Carbon Dioxide (22-30) mmol/L Anion Gap mmol/L BUN (7-17) mg/dL Creatinine (0.52-1.04) mg/dL Est GFR (CKD-EPI)AfAm (>60 ml/min/1.73 sqM) Est GFR (CKD-EPI)NonAf (>60 ml/min/1.73 sqM) Glucose (74-99) mg/dL Plasma Lactic Acid Buddy (0.7-2.0) mmol/L Calcium (8.4-10.2) mg/dL Total Bilirubin (0.2-1.3) mg/dL AST (14-36) U/L ALT (9-52) U/L Alkaline Phosphatase (38-126) U/L Troponin I (0.000-0.034) ng/mL Total Protein (6.3-8.2) g/dL Albumin (3.5-5.0) g/dL Urine Color Yellow Urine Appearance Clear (Clear) Urine pH 6.5 (5.0-8.0) Ur Specific [place] 1.021 (1.001-1.035) Urine Protein Trace H (Negative) Urine Glucose (UA) Negative (Negative) Urine Ketones Negative (Negative) Urine Blood Negative (Negative) Urine Nitrite Negative (Negative) Urine Bilirubin Negative (Negative) Urine Urobilinogen 3.0 (<2.0) mg/dL Ur Leukocyte Esterase Negative (Negative) Influenza Type A RNA (Not Detectd) Influenza Type B (PCR) (Not Detectd) Disposition Clinical Impression: Dehydration, Gastroenteritis, Ileus, Lactic acidosis Disposition: ADMITTED IP TO THIS HOSP Condition: Serious Is patient prescribed a controlled substance at d/c from ED?: No Referrals: Ilir Quintero DO [Primary Care Provider] - 1-2 days
[2018-05-30 03:10] LABS: Appearance,Urine Clear (Clear); Bilirubin,Urine Negative (Negative); Blood,Urine Negative (Negative); Color,Urine Yellow; Glucose,Urine (UA) Negative (Negative); Ketones,Urine Negative (Negative); Leukocyte Esterase,Urine Negative (Negative); Nitrite,Urine Negative (Negative); PH, Urine 6.5 (5.0-8.0); Protein,Urine Trace (Negative); Specific Gravity,Urine 1.021 (1.001-1.035)
[2018-05-30] MEDS: SODIUM CHLORIDE 0.9% 500 ML 500 ML IV SCH ×2 (03:11→03:46)
--- NOTE | 2018-05-30 03:12 | XR ---
EXAM: XR Abdomen 2 Views With XR Chest CLINICAL HISTORY: Pain/N/V/distention TECHNIQUE: Frontal view of the chest, frontal view of the abdomen/pelvis and upright or decubitus view of the abdomen. COMPARISON: September 30, 2017 chest radiograph and November 09, 2013 abdominal series. FINDINGS: Enlarged cardiac silhouette with vascular congestion. Sternotomy wires and mediastinal clips. Pacemaker device. Low lung volumes with elevated right hemidiaphragm. No definite focal consolidative process or pleural effusions. Surgical clips in the left axilla. Gaseous distention of stomach. Mildly prominent small bowel loops and right and transverse colon. Query percutaneous gastrostomy tube projected over the left upper quadrant. No definite evidence of free air. Right femoral hardware. IMPRESSION: Enlarged cardiac silhouette with vascular congestion. No definite free air. Mildly prominent small bowel loops may represent ileus or enteritis. No concetta radiographic evidence of obstruction. Also, nonspecific gaseous distention of right and transverse colon. CT may further evaluate if indicated. Query percutaneous gastrostomy tube.
[2018-05-30] MEDS ORDERED: NALOXONE 0.4 MG/ML 1 ML VIAL IV PRN (03:29)
[2018-05-30] MEDS: SODIUM CHLORIDE 0.9% 1,000 ML IV SCH ×2 (03:55→21:35)
[2018-05-30 06:38] LABS: Glucose,Whole Blood 160 mg/dL (75-99)
[2018-05-30] MEDS ORDERED: ACETAMINOPHEN SUPPOSITORY 650 MG SUPP RECTAL PRN (10:10)
[2018-05-30] MEDS ORDERED: BISACODYL 10 MG SUPP RECTAL PRN (11:10)
[2018-05-30 11:55] LABS: Glucose,Whole Blood 104 mg/dL (75-99)
[2018-05-30] MEDS: CITALOPRAM HYDROBROMIDE 10 MG TAB PO SCH (12:03)
[2018-05-30] MEDS: amLODIPine 5 MG TAB PEG/G-TUBE SCH (12:03)
[2018-05-30] MEDS: ASPIRIN 81 MG PEG/G-TUBE SCH (12:03)
[2018-05-30] MEDS: METOPROLOL TARTRATE 50 MG TAB PEG/G-TUBE SCH ×2 (12:03→20:06)
[2018-05-30] MEDS: levETIRAcetam ORAL SOLN 500 MG/5 ML CUP PEG/G-TUBE SCH ×2 (12:07→16:04)
[2018-05-30] MEDS: GABAPENTIN 100 MG PEG/G-TUBE SCH ×3 (12:08→21:35)
[2018-05-30] MEDS ORDERED: WARFARIN 3 MG TAB PEG/G-TUBE ONE (13:00)
[2018-05-30] MEDS ORDERED: WARFARIN 10 MG TAB PEG/G-TUBE SCH (13:00)
[2018-05-30] MEDS ORDERED: CIPROFLOXACIN HCL 500 MG TAB PO SCH (15:00)
[2018-05-30] MEDS: metroNIDAZOLE 500 MG TAB PO SCH ×2 (16:04→21:35)
[2018-05-30 16:15] VITALS: BMI 32.6
[2018-05-30 16:42] LABS: Glucose,Whole Blood 94 mg/dL (75-99)
--- NOTE | 2018-05-30 16:57 | HP ---
HISTORY AND PHYSICAL DATE OF ADMISSION: 05/30/2018 DATE OF SERVICE: 05/30/2018. PRESENTING COMPLAINT: Nausea, vomiting, diarrhea. HISTORY OF PRESENTING COMPLAINT: This is a pleasant 73-year-old patient who lives at the [facility] followed by Dr. Quintero. Rather extensive medical history. Chronic stable medical conditions include: Atrial flutter fibrillation, asthma, congestive heart failure, dementia, diabetes, GERD, hypertension, hyperlipidemia, office sleep apnea. The patient's son Jose Rafael is the legal guardian and DPOA. The patient has also had prior strokes, left-sided weakness, dysphagia, n.p.o. with a PEG tube, atrial fibrillation. The patient is not much of a historian. Patient is doubly incontinent. The patient is brought in from the correction following having nausea, vomiting, diarrhea, having low-grade fever and admitted for the same. Since the patient is on the medical floor, I spoke to the nurse, patient has not had any further diarrhea. The patient denies any abdominal pain. Can only answer some simple questions. The patient at the [facility] is nonambulatory and gets placed in a wheelchair and needs assist with all her ADLs. REVIEW OF SYSTEMS: Difficult to obtain as patient speaks quite little. GENERAL: Tired. HEENT: Poor vision. RESPIRATORY: None. CARDIOVASCULAR: None. GASTROINTESTINAL as above. No abdominal pain. GENITOURINARY: Incontinence. MUSCULOSKELETAL: Some pain in the joints. DERMATOLOGICAL, HEMATOLOGIC, LYMPHATIC: None. PSYCHIATRY: Very forgetful. NEUROLOGICAL: Weakness in the limbs. PAST MEDICAL HISTORY: Atrial flutter fibrillation, asthma, heart failure, stroke, dementia, diabetes, GERD, GI bleed, hyperlipidemia, hypertension, obstructive sleep apnea, stroke, left-sided weakness, dysphagia with a PEG tube. Atrial fibrillation, chronic CHF, rectus sheath hematoma, diabetes type 2, migraines, muscle weakness, constipation, incontinent of bowel, bladder, UTI, seasonal allergies. PAST SURGICAL HISTORY: Breast surgery, cardiac valve replacement, cardiac cath with stent, hysterectomy, pacemaker, PEG tube, mechanical mitral valve 2000, polypectomy, spinal cord removed with cyst removed, TEEs, bilateral cataract removal, lens implant, left rotator cuff repair, right femur fracture, left breast lumpectomy, permanent pacemaker. PSYCH HISTORY: Depression. SOCIAL HISTORY: Lives at [facility], nonambulatory, can get placed in a wheelchair, needs assistance with all ADLs. Jose Rafael is legal guardian. The patient has been n.p.o. Has a PEG tube. The patient smoked on and off since 1959, quit less than a year ago. FAMILY HISTORY: Of GI bleed and bleeding. HOME MEDICATIONS: 1. Keppra 500 mg b.i.d. 2. Coumadin 5 mg on Wednesdays and 10 mg other days. 3. Metformin 500 mg b.i.d. 4. Norvasc 5 mg a day. 5. Pravachol 40 mg q.h.s. 6. Omeprazole 20 mg q.h.s. L. 7. Lopressor 100 mg b.i.d. 8. Levemir 35 units subcu q.h.s. 9. Neurontin 100 mg t.i.d. 10.Lasix 20 mg daily. 11.Ferrous sulfate 325 q.h.s. 12.Celexa 10 mg p.o. daily. 13.Dulcolax 10 mg rectally daily p.r.n. 14.Aspirin 81 mg p.o. daily. ALLERGIES: TO CIPRO, QUINOLONES. PHYSICAL EXAMINATION: VITAL SIGNS: Temperature 100.6, pulse 70, respiratory 18, blood pressure 135/70, pulse ox 96 percent on room air. GENERAL APPEARANCE: Well-built, BMI 32.7. Lying in bed, tired appearing. EYES: Pupils equal. Conjunctivae normal. HEENT: External appearance of nose and ears normal. Oral cavity dry mucous membranes. NECK: JVD not raised. Mass not palpable. RESPIRATORY: Effort normal. LUNGS: Slightly decreased breath sounds. CARDIOVASCULAR: 1st and 2nd sounds normal. No edema. ABDOMEN: Soft, nontender. Liver and spleen not palpable. LYMPHATICS: No lymph nodes palpable in the neck and axilla. PSYCHIATRY: Patient can answer some simple questions. NEUROLOGICAL: Pupils are equal. does move some limbs. INVESTIGATIONS: White count 14.1, hemoglobin 11.8, platelets 297. Potassium 4.1, BUN 25, creatinine 0.35. Lactic acid is 2.3. Influenza A and B negative. EKG tracing personally reviewed by me shows nonspecific findings. Acute abdominal series unremarkable. ASSESSMENT: 1. Acute episodes of nausea, vomiting, diarrhea could may well be acute gastroenteritis, could be viral. The patient is still having some fever. Will need to be covered with antibiotics. We will also check for C diff. 2. Paroxysmal atrial flutter fibrillation, currently in sinus rhythm. 3. Congestive heart failure, chronic. Ejection fraction not known. 4. Moderate to severe cognitive impairment from dementia. 5. Diabetes mellitus type 2. 6. Gastroesophageal reflux disease. 7. Hypertension. 8. Hyperlipidemia. 9. Chronic medical debility. Does use a wheelchair. 10.Chronic dysphagia, n.p.o. does use a PEG tube. 11.Double incontinence. PLAN: Empirically will put the patient on antibiotics. Stop the tube feeding slowly. Other home medications are resumed. We will see how the patient fares overnight and go from there. MMODL / IJN: [id number] /
[2018-05-30] MEDS: INSULIN ASPART (NovoLOG) 100 UNIT/ML VIAL SQ SCH ×2 (18:29→20:51)
[2018-05-30 20:26] LABS: Glucose,Whole Blood 108 mg/dL (75-99)
[2018-05-30] MEDS ORDERED: PANTOPRAZOLE SODIUM 40 MG GRANULE PKT PEG/G-TUBE SCH (21:00)
[2018-05-30] MEDS ORDERED: INSULIN DETEMIR (LEVEMIR) 100 UNIT/ML SYR SQ SCH (21:00)
[2018-05-30] MEDS ORDERED: PRAVASTATIN SODIUM 40 MG TAB PO SCH (21:00)
[2018-05-31] MEDS: SODIUM CHLORIDE 0.9% 1,000 ML IV SCH (05:32)
[2018-05-31] MEDS: levETIRAcetam ORAL SOLN 500 MG/5 ML CUP PEG/G-TUBE SCH ×2 (05:32→16:16)
[2018-05-31 07:37] LABS: Glucose,Whole Blood 124 mg/dL (75-99)
[2018-05-31 07:43] VITALS: BP 127/70; PULSE 71; RESP 20; TEMP 99.6
[2018-05-31 08:38] LABS: INR 2.6 (<1.2); Prothrombin Time 24.9 sec (9.0-12.0)
[2018-05-31] MEDS: INSULIN ASPART (NovoLOG) 100 UNIT/ML VIAL SQ SCH ×2 (09:02→13:21)
[2018-05-31] MEDS: METOPROLOL TARTRATE 50 MG TAB PEG/G-TUBE SCH (09:11)
[2018-05-31] MEDS: CITALOPRAM HYDROBROMIDE 10 MG TAB PO SCH (09:11)
[2018-05-31] MEDS: metroNIDAZOLE 500 MG TAB PO SCH ×2 (09:11→16:16)
[2018-05-31] MEDS: ASPIRIN 81 MG PEG/G-TUBE SCH (09:11)
[2018-05-31] MEDS: amLODIPine 5 MG TAB PEG/G-TUBE SCH (09:11)
[2018-05-31] MEDS: GABAPENTIN 100 MG PEG/G-TUBE SCH ×2 (10:43→16:00)
[2018-05-31 12:06] LABS: Glucose,Whole Blood 119 mg/dL (75-99)
--- NOTE | 2018-05-31 15:19 | DS ---
DISCHARGE SUMMARY DATE OF ADMISSION: 05/30/2018 DATE OF DISCHARGE: 05/31/2018 FINAL DIAGNOSES: 1. Acute gastroenteritis, probably viral. 2. Paroxysmal atrial flutter fibrillation, currently in sinus rhythm. 3. Chronic congestive heart failure, ejection fraction not known. 4. Moderate to severe cognitive impairment from dementia. 5. Diabetes mellitus type 2. 6. Gastroesophageal reflux disease. 7. Essential hypertension. 8. Hyperlipidemia. 9. Chronic medical debility. Does use a wheelchair. 10.Chronic dysphagia, n.p.o., does use a PEG tube. 11.Double incontinence. HOSPITAL COURSE: A patient who is at a retirement. The patient's son, Jose Rafael, is the legal guardian, DPOA. The patient has had prior strokes, left-sided weakness, n.p.o. with PEG tube, limited historian, presented with nausea, vomiting, diarrhea. Empirically was put on Flagyl. Diarrhea is completely gone. Tolerating tube feeding. Patient remains chronically n.p.o. On examination, temperature 99.6, pulse 71, respirations 20, blood pressure 127/70, pulse ox 96% on room air. ABDOMEN: Soft, nontender. PEG tube in place. INR 2.6. DISCHARGE MEDICATIONS: 1. Pravachol 40 mg q.h.s. 2. Celexa 10 mg daily. 3. Ferrous sulfate 325 q.h.s. 4. Keppra 500 mg b.i.d. 5. Aspirin 81 mg a day. 6. Levemir 28 units subcu q.h.s. 7. Lopressor 100 mg b.i.d. 8. Omeprazole 20 mg q.h.s. 9. Coumadin 5 mg on Saturday, 10 mg on Saturday, Saturday, Saturday, , Saturday, Saturday. 10.Norvasc 5 mg daily. 11.Neurontin 100 mg t.i.d. 12.Flagyl 500 mg t.i.d. for 6 tablets. Discontinued is Lasix, metformin, Colace, Dulcolax. DISPOSITION: [facility]. Follow up with Dr. Quintero. MMTEREZAL / PETERN: [id number] /
[2018-05-31] MEDS ORDERED: WARFARIN 10 MG TAB PEG/G-TUBE ONE (18:00)
[2018-06-04] MEDS ORDERED: WARFARIN 5 MG TAB PEG/G-TUBE SCH (13:00)
== END 2018-05-31 17:15 | DRG 392 ==
LOC: EC 01:56 → EEVIPCON 03:30 → 3NMEDONC 03:30 → 4SSUR 09:20 → OBSVTOIN 14:14 → UNDODISOB 05-31 17:15
PROVIDERS: ADMIT Hospitalist; ATTEND Hospitalist
DX: A08.4 Viral intestinal infection, unspecified (principal); E87.2 Acidosis; I69.354 Hemiplegia and hemiparesis following cerebral infarction affecting left non-dominant side; I48.92 Unspecified atrial flutter; E86.0 Dehydration; I48.0 Paroxysmal atrial fibrillation; I11.0 Hypertensive heart disease with heart failure; I50.9 Heart failure, unspecified; F03.90 Unspecified dementia, unspecified severity, without behavioral disturbance, psychotic disturbance, mood disturbance, and anxiety; K21.9 Gastro-esophageal reflux disease without esophagitis; R13.10 Dysphagia, unspecified; Z93.1 Gastrostomy status; R32 Unspecified urinary incontinence; R15.9 Full incontinence of feces; R53.81 Other malaise; E78.5 Hyperlipidemia, unspecified; E11.9 Type 2 diabetes mellitus without complications; G43.909 Migraine, unspecified, not intractable, without status migrainosus; G47.33 Obstructive sleep apnea (adult) (pediatric); J45.909 Unspecified asthma, uncomplicated; Z79.01 Long term (current) use of anticoagulants; Z79.82 Long term (current) use of aspirin; Z79.4 Long term (current) use of insulin; Z79.899 Other long term (current) drug therapy; Z88.1 Allergy status to other antibiotic agents; Z88.8 Allergy status to other drugs, medicaments and biological substances; Z85.3 Personal history of malignant neoplasm of breast; Z99.89 Dependence on other enabling machines and devices; Z98.890 Other specified postprocedural states; Z87.891 Personal history of nicotine dependence; Z98.42 Cataract extraction status, left eye; Z98.41 Cataract extraction status, right eye; Z96.1 Presence of intraocular lens; Z95.2 Presence of prosthetic heart valve; Z95.0 Presence of cardiac pacemaker; Z80.0 Family history of malignant neoplasm of digestive organs; Z82.3 Family history of stroke
CPT/HCPCS: 36415; 74022; 80053; 81003; 83605; 84484; 85025; 85610; 85730; 87040; 87086; 87502; 93005; 96360; 96361; 99285

== ENCOUNTER 2018-06-15 14:10 | Inpatient (IN) | payer MEDICARE ==
[2018-06-15] MEDS ORDERED: IBUPROFEN IV 600 MG in SODIUM CHLORIDE 0.9% 250 ML IV STA (14:24)
--- NOTE | 2018-06-15 14:33 | ED ---
General Adult HPI - General Chief complaint: Shortness of Breath Stated complaint: Poss aspiration Time Seen by Provider: 06/15/18 14:15 Source: patient, RN notes reviewed Mode of arrival: EMS Limitations: altered mental status - History of Present Illness Initial comments: This is a 73-year-old female who has a past medical history significant for stro ke with left-sided paralysis as well as valve replacement in the past. Patient has a legal guardian which is her son. Patient lives in a longterm and she was noted to have a fever and some difficulty breathing they think the patient might have aspirated. Patient is not allowed to take anything by mouth she has a PEG tube in place. Patient is unable to give any history at this time. Patient is a full code - Related Data Home Medications Medication Instructions Recorded Confirmed Pravastatin Sodium [Pravachol] 40 mg PEG/G-TUBE HS 05/20/17 06/15/18 Citalopram Hydrobromide [CeleXA] 10 mg PEG/G-TUBE DAILY 09/27/17 06/15/18 levETIRAcetam [Keppra Oral 100 mg PEG/G-TUBE DAILY 09/27/17 06/15/18 Solution] Aspirin 81 mg PEG/G-TUBE DAILY 05/30/18 06/15/18 Metoprolol Tartrate [Lopressor] 100 mg PEG/G-TUBE BID 05/30/18 06/15/18 Omeprazole Susp 2mg/Ml 20 mg PEG/G-TUBE HS 05/30/18 06/15/18 Warfarin [Coumadin] 10 mg PEG/G-TUBE SUWEFRSA 05/30/18 06/15/18 amLODIPine [Norvasc] 5 mg PEG/G-TUBE DAILY 05/30/18 06/15/18 Ferrous Sulfate [Feosol] 325 mg PEG/G-TUBE DAILY 06/15/18 06/15/18 Warfarin Sodium [Coumadin] 7.5 mg PO MOTUTH 06/15/18 06/15/18 Previous Rx's Medication Instructions Recorded Gabapentin Oral Soln [Neurontin 100 mg PEG/G-TUBE TID #14 ml 05/31/18 Oral Soln] Insulin Detemir (Levemir) [Levemir] 28 unit SQ HS #0 05/31/18 Allergies Allergy/AdvReac Type Severity Reaction Status Date / Time ciprofloxacin [From Cipro] Allergy Rash/Hives Verified 06/15/18 14:12 ciprofloxacin HCl Allergy Rash/Hives Verified 06/15/18 14:12 [From Cipro] Quinolones Allergy Unknown Verified 06/15/18 14:12 Review of Systems ROS Statement: Those systems with pertinent positive or pertinent negative responses have been documented in the HPI. ROS Other: All systems not noted in ROS Statement are negative. Past Medical History Past Medical History: Atrial Fibrillation, Atrial Flutter, Asthma, Cancer, Heart Failure, CVA/TIA, Dementia, Diabetes Mellitus, GERD/Reflux, GI Bleed, Hyperlipidemia, Hypertension, Pneumonia, Sleep Apnea/CPAP/BIPAP Additional Past Medical History / Comment(s): Verified with son, Jose Rafael, who is pt 's legal guardian and will bring in paperwork later today, 05/30/18 for copying. Jose Rafael states he is also pt's DPOA. CVAs with L sided weakness, dysphagia-NPO with peg tube, Afib with RVR, chronic chf, rectus sheath hematoma-acute blood loss anemia with transfusions, bronchitis, IDDM type II, migraines, muscle weakness, lower GI bleed, constipation, incontinence bladder/bowel, UTIs, sinus problems, seasonal allergies, hayfever History of Any Multi-Drug Resistant Organisms: None Reported Past Surgical History: Breast Surgery, Cardiac Valve Replacement, Heart Catheterization With Stent, Hysterectomy, Orthopedic Surgery, Pacemaker, Tonsillectomy Additional Past Surgical History / Comment(s): Peg tube, mechanical mitral valve 2000, polypectomy spinal cord/cyst removed, TEEs, CVNs, colonoscopies, bilateral cataract removal/lens implants, L rotator cuff repair, R femur fracture with IM hip/screw/nail, L breast lumpectomy, Past Anesthesia/Blood Transfusion Reactions: No Reported Reaction Date of Last Stent Placement:: 2006 Type of Cardiac Device: Permanent Pacemaker Device Placement Date:: 2009 Past Psychological History: Depression Smoking Status: Former smoker Past Alcohol Use History: Unable to Obtain Past Drug Use History: Unable to Obtain - Past Family History Father Family Medical History: GI Bleed Additional Family Medical History / Comment(s): OF BLEEDING ULCER AT AGE 64 Mother Family Medical History: Cancer, CVA/TIA Additional Family Medical History / Comment(s): HX STROKES, COLON CANCER General Exam - General Exam Comments Initial Comments: GENERAL: Patient is well-developed and well-nourished. Patient is nontoxic and well- hydrated and is in mild distress. ENT: Neck is soft and supple. No significant lymphadenopathy is noted. Oropharynx is clear. Moist mucous membranes. EYES: The sclera were anicteric and conjunctiva were pink and moist. Extraocular movements were intact and pupils were equal round and reactive to light. Eyelids were unremarkable. PULMONARY: Patient has crackles on the left base CARDIOVASCULAR: There is a regular rate and rhythm without any murmurs gallops or rubs. ABDOMEN: Soft and nontender with normal bowel sounds. SKIN: Skin is clear with no lesions or rashes and otherwise unremarkable. NEUROLOGIC: Patient is alert and able to answer simple questions. Patient is able to move her right arm and leg is slightly difficult to have her go through any kind of full range of motion. MUSCULOSKELETAL: Patient is unable to move her left leg or arm at all. PSYCHIATRIC: Patient is unable to be evaluated secondary to her baseline mental status Limitations: altered mental status Course Vital Signs 06/15/18 06/15/18 06/15/18 14:13 15:32 15:37 Temperature 99.2 F Pulse Rate 89 89 Respiratory 18 18 18 Rate Blood Pressure 157/71 133/64 O2 Sat by Pulse 95 92 L Oximetry Medical Decision Making - Medical Decision Making EKG shows sinus rhythm at 80 bpm CO interval is 248 QRSs 84 QT interval 362 QTC is 438. Patient's EKG shows no ST segment elevation or depression. X-ray shows left-sided pneumonia. I restart the patient on Rocephin when she arrived. I spoke with Dr. Stroud agreed to admit the patient admitted the patient I wrote admitting orders. I diagnosed the patient as pneumonia with sepsis. Worried about aspiration so I covered the patient for aspiration pneumonia as well - Lab Data Result diagrams: 06/15/18 14:42 06/15/18 14:42 Lab Results 06/15/18 06/15/18 06/15/18 Range/Units 14:36 14:42 14:42 WBC 19.0 H (3.8-10.6) k/uL RBC 4.51 (3.80-5.40) m/uL Hgb 11.2 L (11.4-16.0) gm/dL Hct 36.9 (34.0-46.0) % MCV 81.9 (80.0-100.0) fL MCH 24.8 L (25.0-35.0) pg MCHC 30.3 L (31.0-37.0) g/dL RDW 17.1 H (11.5-15.5) % Plt Count 346 (150-450) k/uL Neutrophils % 81 % Lymphocytes % 13 % Monocytes % 4 % Eosinophils % 1 % Basophils % 0 % Neutrophils # 15.4 H (1.3-7.7) k/uL Lymphocytes # 2.4 (1.0-4.8) k/uL Monocytes # 0.7 (0-1.0) k/uL Eosinophils # 0.2 (0-0.7) k/uL Basophils # 0.1 (0-0.2) k/uL Hypochromasia Marked Anisocytosis Slight PT (9.0-12.0) sec INR (<1.2) APTT (22.0-30.0) sec Sodium 136 L (137-145) mmol/L Potassium 4.6 (3.5-5.1) mmol/L Chloride 99 (98-107) mmol/L Carbon Dioxide 31 H (22-30) mmol/L Anion Gap 6 mmol/L BUN 27 H (7-17) mg/dL Creatinine 0.44 L (0.52-1.04) mg/dL Est GFR (CKD-EPI)AfAm >90 (>60 ml/min/1.73 sqM) Est GFR (CKD-EPI)NonAf >90 (>60 ml/min/1.73 sqM) Glucose 303 H (74-99) mg/dL Plasma Lactic Acid Buddy (0.7-2.0) mmol/L Calcium 9.3 (8.4-10.2) mg/dL Total Bilirubin 0.5 (0.2-1.3) mg/dL AST 24 (14-36) U/L ALT 38 (9-52) U/L Alkaline Phosphatase 110 (38-126) U/L Troponin I (0.000-0.034) ng/mL Total Protein 6.4 (6.3-8.2) g/dL Albumin 3.2 L (3.5-5.0) g/dL Urine Color Yellow Urine Appearance Turbid H (Clear) Urine pH 5.5 (5.0-8.0) Ur Specific Waddy 1.028 (1.001-1.035) Urine Protein 2+ H (Negative) Urine Glucose (UA) Trace H (Negative) Urine Ketones Negative (Negative) Urine Blood Trace H (Negative) Urine Nitrite Negative (Negative) Urine Bilirubin Negative (Negative) Urine Urobilinogen 2.0 (<2.0) mg/dL Ur Leukocyte Esterase Large H (Negative) Urine RBC 61 H (0-5) /hpf Urine WBC >182 H (0-5) /hpf Urine WBC Clumps Many H (None) /hpf Ur Squamous Epith Cells 9 H (0-4) /hpf Amorphous Sediment Occasional H (None) /hpf Urine Bacteria Moderate H (None) /hpf Urine Mucus Few H (None) /hpf 06/15/18 06/15/18 06/15/18 Range/Units 14:42 14:42 14:42 WBC (3.8-10.6) k/uL RBC (3.80-5.40) m/uL Hgb (11.4-16.0) gm/dL Hct (34.0-46.0) % MCV (80.0-100.0) fL MCH (25.0-35.0) pg MCHC (31.0-37.0) g/dL RDW (11.5-15.5) % Plt Count (150-450) k/uL Neutrophils % % Lymphocytes % % Monocytes % % Eosinophils % % Basophils % % Neutrophils # (1.3-7.7) k/uL Lymphocytes # (1.0-4.8) k/uL Monocytes # (0-1.0) k/uL Eosinophils # (0-0.7) k/uL Basophils # (0-0.2) k/uL Hypochromasia Anisocytosis PT 33.1 H (9.0-12.0) sec INR 3.4 H (<1.2) APTT 30.5 H (22.0-30.0) sec Sodium (137-145) mmol/L Potassium (3.5-5.1) mmol/L Chloride (98-107) mmol/L Carbon Dioxide (22-30) mmol/L Anion Gap mmol/L BUN (7-17) mg/dL Creatinine (0.52-1.04) mg/dL Est GFR (CKD-EPI)AfAm (>60 ml/min/1.73 sqM) Est GFR (CKD-EPI)NonAf (>60 ml/min/1.73 sqM) Glucose (74-99) mg/dL Plasma Lactic Acid Buddy 2.6 H* (0.7-2.0) mmol/L Calcium (8.4-10.2) mg/dL Total Bilirubin (0.2-1.3) mg/dL AST (14-36) U/L ALT (9-52) U/L Alkaline Phosphatase (38-126) U/L Troponin I 0.012 (0.000-0.034) ng/mL Total Protein (6.3-8.2) g/dL Albumin (3.5-5.0) g/dL Urine Color Urine Appearance (Clear) Urine pH (5.0-8.0) Ur Specific Waddy (1.001-1.035) Urine Protein (Negative) Urine Glucose (UA) (Negative) Urine Ketones (Negative) Urine Blood (Negative) Urine Nitrite (Negative) Urine Bilirubin (Negative) Urine Urobilinogen (<2.0) mg/dL Ur Leukocyte Esterase (Negative) Urine RBC (0-5) /hpf Urine WBC (0-5) /hpf Urine WBC Clumps (None) /hpf Ur Squamous Epith Cells (0-4) /hpf Amorphous Sediment (None) /hpf Urine Bacteria (None) /hpf Urine Mucus (None) /hpf Disposition Clinical Impression: Sepsis, Pneumonia Disposition: ADMITTED IP TO THIS HOSP Referrals: Ilir Quintero DO [Primary Care Provider] - 1-2 days Time of Disposition: 15:52
[2018-06-15 14:55] LABS: Amorphous Sediment,Urine Occasional /hpf; Appearance,Urine Turbid (Clear); Bacteria,Urine Moderate /hpf; Bilirubin,Urine Negative (Negative); Blood,Urine Trace (Negative); Color,Urine Yellow; Glucose,Urine (UA) Trace (Negative); Ketones,Urine Negative (Negative); Leukocyte Esterase,Urine Large (Negative); Mucus,Urine Few /hpf; Nitrite,Urine Negative (Negative); PH, Urine 5.5 (5.0-8.0); Protein,Urine 2+ (Negative); RBC,Urine 61 /hpf (0-5); Specific Gravity,Urine 1.028 (1.001-1.035); Squamous Epithelial Cell,Urine 9 /hpf (0-4); WBC,Urine >182 /hpf (0-5)
[2018-06-15 14:58] LABS: Anisocytosis Slight; Basophils # (A) 0.1 k/uL (0-0.2); Basophils % (A) 0 %; Eosinophils # (A) 0.2 k/uL (0-0.7); Eosinophils % (A) 1 %; HCT 36.9 % (34.0-46.0); HGB 11.2 gm/dL (11.4-16.0); Hypochromasia Marked; Lymphocytes # (A) 2.4 k/uL (1.0-4.8); Lymphocytes % (A) 13 %; MCH 24.8 pg (25.0-35.0); MCHC 30.3 g/dL (31.0-37.0); MCV 81.9 fL (80.0-100.0); Mean Platelet Volume 7.5; Monocytes # (A) 0.7 k/uL (0-1.0); Monocytes % (A) 4 %; Neutrophils # (A) 15.4 k/uL (1.3-7.7); Neutrophils % (A) 81 %; Platelet Count 346 k/uL (150-450); RBC 4.51 m/uL (3.80-5.40); RDW 17.1 % (11.5-15.5)
[2018-06-15 15:00] LABS: ALT 38 U/L (9-52); AST 24 U/L (14-36); Albumin 3.2 g/dL (3.5-5.0); Alkaline Phosphatase 110 U/L (38-126); Anion Gap 6 mmol/L; Blood Urea Nitrogen 27 mg/dL (7-17); Calcium 9.3 mg/dL (8.4-10.2); Carbon Dioxide 31 mmol/L (22-30); Chloride 99 mmol/L (98-107); Glucose 303 mg/dL (74-99); Potassium 4.6 mmol/L (3.5-5.1); Sodium 136 mmol/L (137-145); Total Bilirubin 0.5 mg/dL (0.2-1.3); Total Protein 6.4 g/dL (6.3-8.2)
[2018-06-15] MEDS ORDERED: SODIUM CHLORIDE 0.9% 1,000 ML IV ONE (15:06)
--- NOTE | 2018-06-15 15:08 | XR ---
EXAMINATION TYPE: XR chest 1V portable DATE OF EXAM: 06/15/2018 COMPARISON: 09/30/2017 HISTORY: Fever TECHNIQUE: Single frontal view of the chest is obtained. FINDINGS: Heart is enlarged. There is pulmonary vascular congestion. There are sternal wires. There is a right axillary pacemaker noted. There are clips at the left axilla. There is slight blunting of costophrenic angles. IMPRESSION: Mild congestive heart failure unchanged. There is probably small pleural effusions.
[2018-06-15 15:18] LABS: INR 3.4 (<1.2); Partial Thromboplastin Time 30.5 sec (22.0-30.0); Prothrombin Time 33.1 sec (9.0-12.0)
[2018-06-15] MEDS ORDERED: PIPERACILLIN-TAZOBACTAM 3.375 GM in SODIUM CHLORIDE 0.9% 100 ML IVPB STA (15:52)
[2018-06-15] MEDS ORDERED: PNEUMONIA PROTOCOL UTILIZED 1 EACH MISC PO PRN (15:52)
[2018-06-15] MEDS ORDERED: PIPERACILLIN-TAZOBACTAM 3.375 GM in SODIUM CHLORIDE 0.9% 100 ML IVPB SCH (16:00)
[2018-06-15] MEDS ORDERED: WARFARIN 10 MG TAB PEG/G-TUBE SCH (18:15)
[2018-06-15] MEDS: INSULIN DETEMIR (LEVEMIR) 100 UNIT/ML SYR SQ SCH (19:28)
[2018-06-15] MEDS: METOPROLOL TARTRATE 50 MG TAB PEG/G-TUBE SCH (22:04)
[2018-06-15] MEDS: PANTOPRAZOLE SODIUM 40 MG GRANULE PKT PEG/G-TUBE SCH (22:05)
[2018-06-15] MEDS: PRAVASTATIN SODIUM 40 MG TAB PO SCH (22:05)
[2018-06-15] MEDS: GABAPENTIN 100 MG PEG/G-TUBE SCH (22:06)
[2018-06-15 22:08] LABS: Glucose,Whole Blood 230 mg/dL (75-99)
--- NOTE | 2018-06-15 23:17 | HP ---
HISTORY AND PHYSICAL DATE OF ADMISSION: 06/15/2018 DATE OF SERVICE: 06/15/2018 PRESENTING COMPLAINT: Fever. HISTORY OF PRESENTING COMPLAINT: This is a 73-year-old patient who is at the [facility], being followed by Dr. Quintero. Chronic stable medical conditions include atrial fibrillation, asthma, congestive heart failure, dementia, diabetes, GERD, hypertension, hyperlipidemia, obstructive sleep apnea. The patient's son Jose Rafael is the legal guardian and DPOA. The patient has also had prior stroke leaving her with left-sided weakness, dysphagia, n.p.o. with a PEG tube feeding. Patient not able to give any history. Patient also double incontinent and patient was brought in today with fevers gurgling in the chest. [place] to have aspiration pneumonia, started on antibiotics. The patient also requiring oxygen, otherwise desaturating. Aspiration precautions were done. At the baseline, patient is nonambulatory and does use a wheelchair and needs assist with all ADLs. REVIEW OF SYSTEMS: Cannot be obtained as patient really barely speaks. PAST MEDICAL HISTORY: Past medical history includes: Paroxysmal atrial flutter fibrillation, congestive heart failure EF not known, moderate to severe cognitive impairment from dementia, diabetes mellitus type 2, GERD, hypertension, hyperlipidemia, chronic medical debility, uses a wheelchair, chronic dysphagia [facility] uses a PEG tube, doubly incontinent. PAST SURGICAL HISTORY: Breast surgery, cardiac valve replacement with a metal valve that was a mechanical mitral valve in 2000, cardiac cath with stent, hysterectomy, pacemaker, tonsillectomy, bilateral cataract and lens replaced, left rotator cuff repair, right femur fracture with screw, left breast lumpectomy. SOCIAL HISTORY: Resident of [facility], uses a wheelchair. Needs assistance with all ADLs. No smoking or alcohol. FAMILY HISTORY: Of bleeding peptic ulcer. HOME MEDICATIONS: 1. Keppra 100 mg daily. 2. Norvasc 5 mg daily. 3. Coumadin 10 mg Saturday, Saturday, Saturday, Saturday and 7.5 mg on Saturday, Saturday, Saturday. 4. Pravachol 40 mg q.h.s. 5. Omeprazole 20 mg q.h.s. 6. Lopressor 100 mg b.i.d. 7. Levemir 28 units subcu q.h.s. 8. Neurontin 100 mg t.i.d. 9. Iron 325 daily. 10.Celexa 10 mg daily. 11.Aspirin 81 mg daily. ALLERGIES: To CIPRO, QUINOLONE. PHYSICAL EXAMINATION: VITAL SIGNS: Vital signs on presentation, afebrile, pulse 80, respiratory 18, blood pressure 132/64, pulse ox 92 percent on 4 L. GENERAL APPEARANCE: Sitting up, tired but arousable. EYES: Pupils equal. Conjunctivae normal. HEENT: External appearance of nose and ears normal. Oral cavity is dry. NECK: JVD unable to assess. Mass not palpable. RESPIRATORY: Effort normal. LUNGS: Some crackles on the left side. CARDIOVASCULAR: 1st and 2nd sounds normal. No edema. ABDOMEN: Soft, nontender. Liver and spleen not palpable. LYMPHATICS: No lymph nodes palpable in the neck or axilla. PSYCHIATRY: Unable to assess. Really not answering questions. NEUROLOGICAL: Left side is weak. INVESTIGATIONS: White count 19, hemoglobin 11.2, INR 3.4, potassium 4.6, BUN 27, creatinine 0.44. Lactic acid 2.6. UA positive for leukocyte esterase. WBC. EKG tracing personally reviewed by me shows LVH. Chest x-ray film, personally reviewed by me shows infiltrates in the chest. ASSESSMENT: 1. Acute bilateral aspiration pneumonia in a patient who aspiration with a PEG tube feeding. 2. Chronic dysphagia. The patient has got a PEG tube feeding. 3. Paroxysmal atrial flutter fibrillation, currently in sinus rhythm chronically on Coumadin. 4. Severe cognitive impairment from underlying dementia. 5. Diabetes mellitus type 2. 6. Gastroesophageal reflux disease. 7. Essential hypertension. 8. Hyperlipidemia. 9. Chronic medical debility. Does use a wheelchair. 10.Doubly incontinent. 11.FULL CODE. 12.The patient's son Jose Rafael is the DPOA. PLAN: Aspiration precautions to be maintained. The patient on IV Zosyn. Other medications are resumed. Pulse ox will be monitored. He will also be given fluids. PEG tube feeding to be resumed. Currently no family is at the bedside. Copy to Dr. Quintero. REDDY / NIMISHA: [id number] /
[2018-06-15] MEDS: PIPERACILLIN-TAZOBACTAM 3.375 GM in SODIUM CHLORIDE 0.9% 100 ML IVPB SCH (23:39)
[2018-06-16 07:03] LABS: Glucose,Whole Blood 177 mg/dL (75-99)
[2018-06-16] MEDS: PIPERACILLIN-TAZOBACTAM 3.375 GM in SODIUM CHLORIDE 0.9% 100 ML IVPB SCH ×2 (09:10→16:13)
[2018-06-16] MEDS: METOPROLOL TARTRATE 50 MG TAB PEG/G-TUBE SCH ×2 (09:11→23:22)
[2018-06-16] MEDS: ASPIRIN 81 MG PEG/G-TUBE SCH (09:11)
[2018-06-16] MEDS: CITALOPRAM HYDROBROMIDE 10 MG TAB PO SCH (09:12)
[2018-06-16] MEDS: levETIRAcetam ORAL SOLN 500 MG/5 ML CUP PEG/G-TUBE SCH (09:12)
[2018-06-16] MEDS: FERROUS SULFATE 325 MG TAB PO SCH (09:12)
[2018-06-16] MEDS: amLODIPine 5 MG TAB PEG/G-TUBE SCH (09:12)
[2018-06-16] MEDS: GABAPENTIN 100 MG PEG/G-TUBE SCH ×3 (09:13→23:07)
--- NOTE | 2018-06-16 09:58 | XR ---
EXAMINATION TYPE: XR chest 1V portable DATE OF EXAM: 06/16/2018 COMPARISON: 06/15/2018 HISTORY: Pneumonia follow-up TECHNIQUE: Single frontal view of the chest is obtained. FINDINGS: Heart is enlarged there is bilateral infiltrate and pleural effusion. Cardiac device, post surgical changes, epicardial lead noted. Atherosclerotic change aorta. No pneumothorax. Diffuse osteo penia. Surgical clips overlying the left axilla. IMPRESSION: Bilateral consolidation small effusion underlying CHF not excluded. Correlate clinically to exclude pneumonia. Findings are similar to the prior exam.
[2018-06-16 10:59] LABS: INR 4.9 (<1.2); Prothrombin Time 47.3 sec (9.0-12.0)
[2018-06-16 12:22] LABS: Glucose,Whole Blood 219 mg/dL (75-99)
[2018-06-16 17:16] LABS: Glucose,Whole Blood 280 mg/dL (75-99)
[2018-06-16] MEDS ORDERED: WARFARIN 7.5 MG TAB PO SCH (18:00)
[2018-06-16] MEDS ORDERED: WARFARIN 0.5 MG TAB PO ONE (18:00)
[2018-06-16 18:28] LABS: Hemoglobin A1C 6.9 % (4.0-6.0)
[2018-06-16] MEDS: PANTOPRAZOLE SODIUM 40 MG GRANULE PKT PEG/G-TUBE SCH (23:22)
[2018-06-16] MEDS: PRAVASTATIN SODIUM 40 MG TAB PO SCH (23:22)
[2018-06-16] MEDS: INSULIN DETEMIR (LEVEMIR) 100 UNIT/ML SYR SQ SCH (23:22)
[2018-06-16 23:37] LABS: Glucose,Whole Blood 340 mg/dL (75-99)
[2018-06-17] MEDS: PIPERACILLIN-TAZOBACTAM 3.375 GM in SODIUM CHLORIDE 0.9% 100 ML IVPB SCH ×4 (00:35→23:19)
--- NOTE | 2018-06-17 04:32 | PN ---
PROGRESS NOTE DATE OF SERVICE: June 16, 2018. PRESENTING COMPLAINT: Fever. INTERVAL HISTORY: This patient with prior stroke, presented with aspiration pneumonia. The patient's son called is at the bedside. The patient looks more rested today, less congested in the chest. Single occasional words. REVIEW OF SYSTEMS: Limited because patient barely speaks. CURRENT MEDICATIONS: Reviewed that include IV Zosyn. PHYSICAL EXAMINATION: VITAL SIGNS: Temperature 98, pulse 101, respirations 14, blood pressure 109/71, pulse ox 95% on 5 L. GENERAL APPEARANCE: Propped up looking to the right. Looks more comfortable. EYES: Pupils equal. Conjunctivae normal. NECK: JVD unable to assess. Mass not palpable. RESPIRATORY: Effort increased. LUNGS: Decreased breath sounds. CARDIOVASCULAR: First and second sounds normal. No edema. ABDOMEN: Soft, nontender. Liver and spleen not palpable. PEG tube in place. PSYCHIATRY: Patient may answer occasional questions. NEUROLOGICAL: Left-sided weakness, dysarthria. INVESTIGATIONS: INR 4.9. Urine gram-negative bacilli. ASSESSMENT: 1. Acute bilateral aspiration pneumonia in a patient with PEG tube feeding. 2. Acute urinary tract infection probably from cystitis. 3. Chronic dysphagia, patient has got a PEG tube feeding. 4. Paroxysmal atrial flutter fibrillation, currently in sinus rhythm, chronically on Coumadin. 5. Severe cognitive impairment from underlying dementia. 6. Diabetes mellitus type 2. 7. Gastroesophageal reflux disease. 8. Essential hypertension. 9. Hyperlipidemia. 10.Chronic medical debility, uses a wheelchair. 11.Doubly incontinent. 12.CODE STATUS: FULL. 13.Patient's son Jose Rafael is DPOA. PLAN: Continue current antibiotics. Other medication and treatment plan. Repeat labs in the morning. Follow Accu-Cheks. Expect the patient to be here for at least 1-2 days. MMODL / IJN: [id number] /
[2018-06-17 07:35] LABS: Glucose,Whole Blood 256 mg/dL (75-99)
[2018-06-17] MEDS: GABAPENTIN 100 MG PEG/G-TUBE SCH ×3 (07:54→22:34)
[2018-06-17 07:59] LABS: Anisocytosis Slight; Basophils % (A) 0 %; Eosinophils # (A) 0.1 k/uL (0-0.7); Eosinophils % (A) 1 %; HCT 34.1 % (34.0-46.0); HGB 10.2 gm/dL (11.4-16.0); Hypochromasia Marked; Lymphocytes # (A) 1.3 k/uL (1.0-4.8); Lymphocytes % (A) 9 %; MCH 24.9 pg (25.0-35.0); Mean Platelet Volume 7.7; Monocytes # (A) 0.5 k/uL (0-1.0); Monocytes % (A) 4 %; Neutrophils # (A) 12.7 k/uL (1.3-7.7); Neutrophils % (A) 85 %; Platelet Count 298 k/uL (150-450); RBC 4.11 m/uL (3.80-5.40); RDW 17.4 % (11.5-15.5); WBC 14.9 k/uL (3.8-10.6)
[2018-06-17] MEDS: METOPROLOL TARTRATE 50 MG TAB PEG/G-TUBE SCH ×2 (08:00→22:33)
[2018-06-17] MEDS: amLODIPine 5 MG TAB PEG/G-TUBE SCH (08:00)
[2018-06-17] MEDS: ASPIRIN 81 MG PEG/G-TUBE SCH (08:01)
[2018-06-17] MEDS: CITALOPRAM HYDROBROMIDE 10 MG TAB PO SCH (08:01)
[2018-06-17] MEDS: levETIRAcetam ORAL SOLN 500 MG/5 ML CUP PEG/G-TUBE SCH (08:01)
[2018-06-17] MEDS: FERROUS SULFATE 325 MG TAB PO SCH (08:02)
[2018-06-17 08:10] LABS: Anion Gap 4 mmol/L; Blood Urea Nitrogen 17 mg/dL (7-17); Calcium 8.9 mg/dL (8.4-10.2); Carbon Dioxide 29 mmol/L (22-30); Chloride 106 mmol/L (98-107); Glucose 238 mg/dL (74-99); Sodium 139 mmol/L (137-145)
[2018-06-17 10:46] LABS: Prothrombin Time 55.9 sec (9.0-12.0)
[2018-06-17 11:32] LABS: Glucose,Whole Blood 314 mg/dL (75-99)
[2018-06-17 11:36] LABS: INR 5.8 (<1.2)
[2018-06-17] MEDS ORDERED: INSULIN NPH 300 UNIT/3 ML VIAL SQ SCH (12:15)
--- NOTE | 2018-06-17 13:09 | PN ---
PROGRESS NOTE DATE OF SERVICE: 06/17/2018 PRESENTING COMPLAINT: Fever. INTERVAL HISTORY: The patient with prior stroke presented with aspiration pneumonia. Propped up in bed. Tolerating tube feeding. Fevers have started to come down. INR is a bit up. No evidence of any bleeding. The patient does speak occasional words. Propped up, awake. REVIEW OF SYSTEMS: Limited because of the patient barely speaks. MEDICATIONS: Current medications reviewed that include IV Zosyn. PHYSICAL EXAMINATION: On examination, temperature 98.3, pulse 99, respiration 18, blood pressure 124/83, pulse ox 97% on 5 L. GENERAL APPEARANCE: Propped up, sitting up, awake. EYES: Pupils equal. Conjunctivae are normal. NECK: JVD unable to assess. Mass not palpable. RESPIRATORY: Effort increased. LUNGS: Decreased breath sounds. CARDIOVASCULAR: First and second sounds normal. No edema. ABDOMEN: Soft, nontender. Liver and spleen not palpable. PEG tube in place. PSYCHIATRY: Patient does answer occasional questions. NEUROLOGICAL: Weakness on the left side. INVESTIGATIONS: White count 14.9, hemoglobin 10.2. INR 5.8. Potassium 4.0. BUN 17, creatinine 0.31. ASSESSMENT: 1. Acute bilateral aspiration pneumonia in a patient with PEG tube feeding with slow clinical improvement. 2. Acute urinary tract infection from cystitis. 3. Chronic dysphagia. Patient is n.p.o. with a PEG tube feeding. 4. Paroxysmal atrial flutter fibrillation, currently in sinus rhythm, chronically on Coumadin. 5. Coumadin toxicity with no evidence of bleeding. 6. Severe cognitive impairment from underlying dementia. 7. Diabetes mellitus type 2. 8. Gastroesophageal reflux disease. 9. Essential hypertension. 10.Hyperlipidemia. 11.Chronic medical debility, uses a wheelchair. 12.Double incontinent. 13.CODE STATUS: FULL. 14.Patient's son, Jose Rafael, is the DPOA. PLAN: Continue current medication and treatment plan. Continue to hold off Coumadin. No evidence of bleeding. Slowly improving. Expect the patient to have day or 2. Will increase the patient's Levemir to 36 units starting tonight. MMODL / IJN: [id number] /
--- NOTE | 2018-06-17 14:11 | CDI ---
Documentation Clarification Form Date: 06/17/2018 1:56:18 PM From: Candice Diaz RN CCDS Admit Date: 06/16/2018 12:13:00 PM Patient Name: Ariane Eric Visit Number: [id number] Discharge Date: ATTENTION: The Clinical Documentation Specialists (CDI) and [facility] Coding Staff appreciate your assistance in clarifying documentation. Please respond to the clarification below the line at the bottom and electronically sign. The CDI & [facility] Coding staff will review the response and follow-up if needed. Please note: Queries are made part of the Legal Health Record. If you have any questions, please contact the author of this message via ITS. Dr. Armando Stroud The patient presented with the following respiratory symptoms gurgling in chest thought to have aspiration pneumonia. History/Risk Factors: 73 year old female presents to the ED via EMS from [facility] for possible aspiration pneumonia. Med hx of chronic dysphasia, Peg tube, JOANN with cpap/bipap Clinical Indicators: Per the H & P The patient is also requiring oxygen, otherwise desaturating. Vital signs: admission 157/71 89 99.2 Axillary 18 95% 6L nc Lung/Breathing assessment: some crackles on the left side. Treatment: Rocephin ivpb x1, Zosyn ivpb Oxygen 6L at admission currently 06/17/2018 5L high flow oxygen In your professional opinion, can you please clarify if these findings signify one of the following conditions? * Acute Respiratory Failure POA (further specify (if known)): With hypoxia? (pO2 <60 mm Hg or SpO2 <91% on room air) * Other Diagnosis, please specify * Unable to determine (Last Revision: May 2017) acute hypoxic respiratory failure from pneumonia, POA MTDD
--- NOTE | 2018-06-17 14:27 | CDI ---
Documentation Clarification Form Date: 06/17/2018 2:13:26 PM From: Candice Diaz RN CCDS Admit Date: 06/16/2018 12:13:00 PM Patient Name: Ariane Eric Visit Number: [id number] Discharge Date: ATTENTION: The Clinical Documentation Specialists (CDI) and [facility] Coding Staff appreciate your assistance in clarifying documentation. Please respond to the clarification below the line at the bottom and electronically sign. The CDI & [facility] Coding staff will review the response and follow-up if needed. Please note: Queries are made part of the Legal Health Record. If you have any questions, please contact the author of this message via ITS. Dr. Armando Stroud The patient presented with the following gurgling in chest thought to have Aspiration Pneumonia History/Risk Factors: 73 year old female presents to the ED via EMS [facility] for possible aspiration pneumonia. Medical history chronic dysphasia, PegTube, JOANN with CPAP/BIPAP Clinical Indicators: WBC 19.0 Lactic acid: 2.6 Vitals signs on admission: 157/71 89 99.2 Axillary 18 95% 6L nc Treatment: Antibiotics: Rocephin ivpb x1; Zosyn ivpb IV Bolus: 1L 0.9ns ivfl In your professional opinion, please clarify if these findings signify one of the following conditions, whether the condition is POA, and cause, if known: Condition * Sepsis ruled out * Sepsis * Severe Sepsis * Septic Shock * Other, please specify * Unable to determine SIRS Criteria (2 or more of the following may indicate SIRS): -Temperature < 96.8F (36C) or > 101.0F (38.3C) -Heart Rate > 90 bpm -Respiratory Rate > 20 breaths/min or PaCO2 < 32 mmHg -White Blood Cell Count > 12,000 or < 4,000 cells/mm3 or > 10% bands -Lactate >2.0 mmol/L (>4.0 is equivalent to septic shock) (Last Revision: May 2017) sepsis from pneumonia,POA MTDD
--- NOTE | 2018-06-17 14:46 | CDI ---
Documentation Clarification Form Date: 06/17/2018 From: Candice Diaz RN CCDS Admit Date: 06/16/2018 12:13:00 PM Patient Name: Ariane Eric Visit Number: [id number] Discharge Date: ATTENTION: The Clinical Documentation Specialists (CDI) and [facility] Coding Staff appreciate your assistance in clarifying documentation. Please respond to the clarification below the line at the bottom and electronically sign. The CDI & [facility] Coding staff will review the response and follow-up if needed. Please note: Queries are made part of the Legal Health Record. If you have any questions, please contact the author of this message via ITS. Dr. Armando Stroud CHF is documented in the H & P under Medical history History/Risk Factors: 71 year old female presents to the ED via EMS for fevers and gurgling in the chest. Clinical Indicators: VS/Pulse OX: 157/71 89 99.2 Axillary 18 95% 6Lnc Chest X Ray: mild congestive heart failure unchanged. There is probably small pleural effusion. Treatment: Lopressor, Norvasc In your professional opinion, can you please clarify the acuity and type of CHF if known? Systolic Heart Failure: * Acute * Chronic * Acute on Chronic Diastolic Heart Failure: * Acute * Chronic * Acute on Chronic Systolic & Diastolic Heart Failure: * Acute * Chronic * Acute on Chronic Heart Failure * Unable to Determine * Other, please specify (Last Revision: May 2017) unable to determine MTDD
[2018-06-17 16:52] LABS: Glucose,Whole Blood 327 mg/dL (75-99)
[2018-06-17] MEDS ORDERED: WARFARIN 0.5 MG TAB PO ONE (18:00)
[2018-06-17 20:33] LABS: Glucose,Whole Blood 306 mg/dL (75-99)
[2018-06-17] MEDS: INSULIN DETEMIR (LEVEMIR) 100 UNIT/ML SYR SQ SCH (21:08)
[2018-06-17] MEDS: PRAVASTATIN SODIUM 40 MG TAB PO SCH (22:33)
[2018-06-17] MEDS: PANTOPRAZOLE SODIUM 40 MG GRANULE PKT PEG/G-TUBE SCH (22:33)
[2018-06-18 07:05] LABS: Glucose,Whole Blood 125 mg/dL (75-99)
[2018-06-18] MEDS: PIPERACILLIN-TAZOBACTAM 3.375 GM in SODIUM CHLORIDE 0.9% 100 ML IVPB SCH ×2 (07:31→15:59)
[2018-06-18 08:19] LABS: INR 3.4 (<1.2); Prothrombin Time 32.6 sec (9.0-12.0)
[2018-06-18 08:22] LABS: Anion Gap 3 mmol/L; Blood Urea Nitrogen 19 mg/dL (7-17); Calcium 9.1 mg/dL (8.4-10.2); Carbon Dioxide 30 mmol/L (22-30); Chloride 108 mmol/L (98-107); Glucose 105 mg/dL (74-99); Potassium 4.1 mmol/L (3.5-5.1); Sodium 141 mmol/L (137-145)
[2018-06-18] MEDS: CITALOPRAM HYDROBROMIDE 10 MG TAB PO SCH (09:28)
[2018-06-18] MEDS: levETIRAcetam ORAL SOLN 500 MG/5 ML CUP PEG/G-TUBE SCH (09:29)
[2018-06-18] MEDS: ASPIRIN 81 MG PEG/G-TUBE SCH (09:29)
[2018-06-18] MEDS: amLODIPine 5 MG TAB PEG/G-TUBE SCH (09:29)
[2018-06-18] MEDS: METOPROLOL TARTRATE 50 MG TAB PEG/G-TUBE SCH ×2 (09:29→21:05)
[2018-06-18] MEDS: GABAPENTIN 100 MG PEG/G-TUBE SCH ×3 (09:43→21:22)
[2018-06-18 11:41] LABS: Glucose,Whole Blood 137 mg/dL (75-99)
[2018-06-18] MEDS: FERROUS SULFATE 325 MG TAB PO SCH (13:44)
[2018-06-18] MEDS: FERROUS SULFATE ORAL ELIXIR 300 MG/5 ML CUP PO SCH (13:45)
[2018-06-18] MEDS: INSULIN ASPART (NovoLOG) 100 UNIT/ML VIAL SQ SCH ×3 (13:45→21:04)
[2018-06-18 17:18] LABS: Glucose,Whole Blood 261 mg/dL (75-99)
[2018-06-18] MEDS ORDERED: WARFARIN 5 MG TAB PO ONE (18:00)
[2018-06-18 20:42] LABS: Glucose,Whole Blood 276 mg/dL (75-99)
[2018-06-18] MEDS: INSULIN DETEMIR (LEVEMIR) 100 UNIT/ML SYR SQ SCH (21:05)
[2018-06-18] MEDS: PRAVASTATIN SODIUM 40 MG TAB PO SCH (21:05)
[2018-06-18] MEDS: PANTOPRAZOLE SODIUM 40 MG GRANULE PKT PEG/G-TUBE SCH (21:05)
--- NOTE | 2018-06-18 23:37 | PN ---
PROGRESS NOTE DATE OF SERVICE: 06/18/2018. PRESENTING COMPLAINT: Tired. INTERVAL HISTORY: This patient with prior stroke presented with aspiration pneumonia. Propped up in bed. Tolerating tube feeding. Overall feeling better. manager credit informed me that the family is looking at a different ECF. REVIEW OF SYSTEMS: Attempted, but the patient has limited speaking. Current medications reviewed that include IV Zosyn. PHYSICAL EXAMINATION: Temperature 98.2, pulse 95, respirations 17, blood pressure 135/81, pulse ox 95% on 5 L. GENERAL APPEARANCE: Propped up, awake. EYES: Pupils equal. Conjunctivae normal. NECK: JVD not raised. Mass not palpable. Respiratory effort normal. LUNGS: Decreased breath sounds. CARDIOVASCULAR: 1st and 2nd sounds. No edema. ABDOMEN: Soft, nontender. Liver and spleen not palpable. PEG tube in place. PSYCHIATRY: The patient does answer questions in single words. INVESTIGATIONS: INR 3.4, potassium 4.1. Accu-Cheks are noted. ASSESSMENT: 1. Acute bilateral aspiration in a patient with PEG tube feeding with clinical improvement. 2. Acute urinary tract infection from cystitis from Proteus mirabilis. 3. Chronic dysphagia patient is n.p.o. got a PEG tube feeding. 4. Paroxysmal atrial flutter fibrillation, currently in sinus rhythm. 5. Coumadin toxicity no evidence of bleeding. 6. Severe cognitive impairment from underlying dementia. 7. Diabetes mellitus type 2. 8. Gastroesophageal reflux disease. 9. Essential hypertension. 10.Hyperlipidemia. 11.Chronic medical debility, uses a wheelchair. 12.Double incontinence. 13.CODE STATUS IS FULL. 14.Patient's son is DPOA. PLAN: Patient ready to be discharge, awaiting bed availability at new [facility], probably will not be available until tomorrow I was informed. In the meantime, continue current medication and treatment plan. Patient's Accu-Cheks are better controlled. We will also add metformin. MMODL / IJN: [id number] /
[2018-06-19] MEDS: PIPERACILLIN-TAZOBACTAM 3.375 GM in SODIUM CHLORIDE 0.9% 100 ML IVPB SCH ×3 (00:54→15:14)
[2018-06-19 07:25] LABS: Glucose,Whole Blood 92 mg/dL (75-99)
[2018-06-19] MEDS: metFORMIN 500 MG TAB PO SCH ×2 (07:44→17:19)
[2018-06-19] MEDS: INSULIN ASPART (NovoLOG) 100 UNIT/ML VIAL SQ SCH ×4 (07:53→20:51)
[2018-06-19 08:32] LABS: INR 2.7 (<1.2); Prothrombin Time 25.9 sec (9.0-12.0)
[2018-06-19 09:08] LABS: Anion Gap 3 mmol/L; Blood Urea Nitrogen 18 mg/dL (7-17); Carbon Dioxide 31 mmol/L (22-30); Chloride 106 mmol/L (98-107); Glucose 83 mg/dL (74-99); Potassium 4.1 mmol/L (3.5-5.1); Sodium 140 mmol/L (137-145)
[2018-06-19] MEDS: METOPROLOL TARTRATE 50 MG TAB PEG/G-TUBE SCH ×2 (09:11→20:51)
[2018-06-19] MEDS: ASPIRIN 81 MG PEG/G-TUBE SCH (09:11)
[2018-06-19] MEDS: amLODIPine 5 MG TAB PEG/G-TUBE SCH (09:11)
[2018-06-19] MEDS: GABAPENTIN 100 MG PEG/G-TUBE SCH ×2 (09:11→17:19)
[2018-06-19] MEDS: CITALOPRAM HYDROBROMIDE 10 MG TAB PO SCH (09:11)
[2018-06-19] MEDS: levETIRAcetam ORAL SOLN 500 MG/5 ML CUP PEG/G-TUBE SCH (09:12)
[2018-06-19] MEDS ORDERED: FUROSEMIDE 10 MG/ML 4 ML VIAL IV STA (11:36)
[2018-06-19 12:23] LABS: Glucose,Whole Blood 131 mg/dL (75-99)
[2018-06-19] MEDS: FERROUS SULFATE ORAL ELIXIR 300 MG/5 ML CUP PO SCH (12:23)
--- NOTE | 2018-06-19 14:20 | XR ---
EXAMINATION TYPE: XR chest 1V portable DATE OF EXAM: 06/19/2018 COMPARISON: 06/16/2018 HISTORY: Shortness of breath TECHNIQUE: Single frontal view of the chest is obtained. FINDINGS: Heart is enlarged there is bilateral infiltrate and pleural effusion. Cardiac device, post surgical changes, epicardial lead noted. Atherosclerotic change aorta. No pneumothorax. Diffuse osteo penia. Surgical clips overlying the left axilla. Question epicardial lead. IMPRESSION: Bilateral consolidation and pleural effusion. Correlate for diffuse pneumonia versus CHF . No significant interval change.
--- NOTE | 2018-06-19 14:36 | PN ---
PROGRESS NOTE DATE OF SERVICE: 06/19/2018 PRESENTING COMPLAINT: Short of breath. INTERVAL HISTORY: Patient with prior stroke, presented with aspiration pneumonia. Fevers have been down, getting tube feeding. Some rattling is in the chest this morning, on 5 L of oxygen. Tube feeding is being tolerated. REVIEW OF SYSTEMS: Patient only speaks occasional wounds. CURRENT MEDICATIONS: Reviewed that include IV Zosyn. PHYSICAL EXAMINATION: Temperature 98.5, pulse 89, respiration 16, blood pressure 110/62, pulse ox 92% on 5 L. GENERAL APPEARANCE; Sitting up, not in distress. EYES: Pupils equal, conjunctivae normal. NECK: JVD not raised. Mass not palpable. RESPIRATORY: Effort increased. LUNGS: Decreased breath sounds, questionable crackles. CARDIOVASCULAR: First and second sounds are normal, minimal edema. ABDOMEN: Soft, nontender. Liver and spleen not palpable. PEG tube in place. PSYCHIATRY: Patient speaks occasional words. NEUROLOGICAL: Weakness on the left side. INVESTIGATIONS: INR 2.7, potassium 4.1, BUN 18, creatinine 0.33. Chest x-ray film personally reviewed by me shows possible bilateral pleural effusion. ASSESSMENT: 1. Acute bilateral aspiration in a patient with PEG tube feeding with clinical response. 2. Possible bilateral pulmonary edema from fluids. 3. Acute urinary tract infection from cystitis from Proteus mirabilis. 4. Chronic dysphagia, patient n.p.o. for PEG tube feeding. 5. Paroxysmal atrial fibrillation, flutter, in sinus rhythm. 6. Coumadin toxicity, no evidence of bleeding. 7. Severe cognitive impairment from underlying dementia/stroke. 8. Diabetes mellitus type 2. 9. Gastroesophageal reflux disease. 10.Essential hypertension. 11.Hyperlipidemia. 12.Chronic medical debility, uses a wheelchair. 13.Doubly incontinent. 14.CODE STATUS: FULL CODE. 15.The patient's son is DPO. PLAN: Will start the patient on IV Lasix 40 q.8. Chest x-ray that was done was reviewed by me. Will check electrolytes in the morning. We will also order a 2-D echocardiogram, a BMP is also added. MMODL / IJN: [id number] /
[2018-06-19 17:12] LABS: Glucose,Whole Blood 221 mg/dL (75-99)
[2018-06-19] MEDS: FUROSEMIDE 10 MG/ML 4 ML VIAL IV SCH (17:19)
[2018-06-19] MEDS ORDERED: WARFARIN 5 MG TAB PO ONE (18:00)
[2018-06-19 20:22] LABS: Glucose,Whole Blood 211 mg/dL (75-99)
[2018-06-19] MEDS: INSULIN DETEMIR (LEVEMIR) 100 UNIT/ML SYR SQ SCH (20:51)
[2018-06-19] MEDS: PRAVASTATIN SODIUM 40 MG TAB PO SCH (20:51)
[2018-06-19] MEDS: PANTOPRAZOLE SODIUM 40 MG GRANULE PKT PEG/G-TUBE SCH (21:11)
[2018-06-20] MEDS: GABAPENTIN 100 MG PEG/G-TUBE SCH ×4 (00:30→22:37)
[2018-06-20] MEDS: FUROSEMIDE 10 MG/ML 4 ML VIAL IV SCH ×2 (00:33→07:38)
[2018-06-20] MEDS: PIPERACILLIN-TAZOBACTAM 3.375 GM in SODIUM CHLORIDE 0.9% 100 ML IVPB SCH ×3 (00:33→15:47)
[2018-06-20 07:17] LABS: Glucose,Whole Blood 119 mg/dL (75-99)
[2018-06-20] MEDS: INSULIN ASPART (NovoLOG) 100 UNIT/ML VIAL SQ SCH ×4 (07:29→22:36)
[2018-06-20] MEDS: metFORMIN 500 MG TAB PO SCH ×2 (07:38→17:23)
[2018-06-20 08:11] LABS: INR 2.7 (<1.2); Prothrombin Time 26.5 sec (9.0-12.0)
[2018-06-20 09:02] LABS: Anion Gap 5 mmol/L; Blood Urea Nitrogen 23 mg/dL (7-17); Calcium 9.1 mg/dL (8.4-10.2); Carbon Dioxide 36 mmol/L (22-30); Chloride 101 mmol/L (98-107); Glucose 98 mg/dL (74-99); Potassium 3.5 mmol/L (3.5-5.1); Sodium 142 mmol/L (137-145)
[2018-06-20] MEDS: levETIRAcetam ORAL SOLN 500 MG/5 ML CUP PEG/G-TUBE SCH (09:13)
[2018-06-20] MEDS: METOPROLOL TARTRATE 50 MG TAB PEG/G-TUBE SCH ×2 (09:13→22:34)
[2018-06-20] MEDS: ASPIRIN 81 MG PEG/G-TUBE SCH (09:14)
[2018-06-20] MEDS: amLODIPine 5 MG TAB PEG/G-TUBE SCH (09:14)
[2018-06-20] MEDS: CITALOPRAM HYDROBROMIDE 10 MG TAB PO SCH (09:14)
[2018-06-20] MEDS ORDERED: FUROSEMIDE 10 MG/ML 10 ML VIAL IV STA (10:47)
--- NOTE | 2018-06-20 10:54 | ECHOF ---
Referral Reason:assess LV function MEASUREMENTS -------- HEIGHT: 165.1 cm WEIGHT: 82.6 kg BP: RVIDd: 2.9 cm (< 3.3) IVSd: 1.2 cm (0.6 - 1.1) LVIDd: 3.5 cm (3.9 - 5.3) LVPWd: 1.6 cm (0.6 - 1.1) IVSs: 1.5 cm LVIDs: 2.7 cm LVPWs: 1.4 cm LA Diam: 4.9 cm (2.7 - 3.8) LAESV Index (A-L): 57.81 ml/m Ao Diam: 2.9 cm (2.0 - 3.7) AV Cusp: 0.9 cm (1.5 - 2.6) LA Diam: 4.2 cm (2.7 - 3.8) MV EXCURSION: 20.130 mm (> 18.000) MV EF SLOPE: 28 mm/s (70 - 150) EPSS: 1.0 cm MV E Jaquan: 1.69 m/s MV DecT: 148 ms MV A Jaquan: 0.40 m/s MV E/A Ratio: 4.19 RAP: 5.00 mmHg RVSP: 46.17 mmHg FINDINGS -------- Paced rhythm. This was a technically adequate study. The left ventricular size is normal. There is mild concentric left ventricular hypertrophy. Overa ll left ventricular systolic function is mildly impaired with, an EF between 45 - 50 %. The right ventricle is normal in size. The left atrium is markedly dilated. LA is severely dilated >40 ml/m2 The right atrial size is normal. The aortic valve is trileaflet, and appears structurally normal. No aortic stenosis or regurgitation. Mechanical MVR is well seated. The peak and mean MV gradients are 11.61mmHg 2.73mmHg as measured by doppler. Mild tricuspid regurgitation present. There is mild to moderate pulmonary hypertension. The right ventricular systolic pressure, as measured by Doppler, is 46.17mmHg. There is no pulmonic regurgitation present. The aortic root size is normal. IVC Not well visulized. There is a small, generalized pericardial effusion present. CONCLUSIONS -------- 1. Paced rhythm. 2. This was a technically adequate study. 3. The left ventricular size is normal. 4. There is mild concentric left ventricular hypertrophy. 5. Overall left ventricular systolic function is mildly impaired with, an EF between 45 - 50 %. 6. The right ventricle is normal in size. 7. The left atrium is markedly dilated. 8. LA is severely dilated >40 ml/m2 9. The right atrial size is normal. 10. Interatrial Septum not well visulized. 11. The aortic valve is trileaflet, and appears structurally normal. No aortic stenosis or regurgitat ion. 12. The peak and mean MV gradients are 11.61mmHg 2.73mmHg as measured by doppler. 13. Mechanical MVR is well seated. 14. Mild tricuspid regurgitation present. 15. There is mild to moderate pulmonary hypertension. 16. The right ventricular systolic pressure, as measured by Doppler, is 46.17mmHg. 17. There is no pulmonic regurgitation present. 18. The aortic root size is normal. 19. IVC Not well visulized. 20. There is a small, generalized pericardial effusion present. MACHINE CARTON MARKER: Briana Bowman RDCS
[2018-06-20] MEDS: FERROUS SULFATE ORAL ELIXIR 300 MG/5 ML CUP PO SCH (11:33)
[2018-06-20 11:55] LABS: Glucose,Whole Blood 263 mg/dL (75-99)
[2018-06-20 16:59] LABS: Glucose,Whole Blood 439 mg/dL (75-99)
[2018-06-20] MEDS ORDERED: INSULIN ASPART (NovoLOG) 100 UNIT/ML VIAL SQ ONE (17:42)
[2018-06-20] MEDS: ACETAMINOPHEN TAB 500 MG TAB PO PRN ×2 (17:51→23:47)
[2018-06-20] MEDS ORDERED: WARFARIN 5 MG TAB PO ONE (18:00)
[2018-06-20 21:00] LABS: Glucose,Whole Blood 447 mg/dL (75-99)
[2018-06-20] MEDS ORDERED: INSULIN REGULAR BOLUS (FROM DRIP BAG) IV ONE (21:23)
[2018-06-20] MEDS ORDERED: INSULIN REGULAR 100 UNIT in SODIUM CHLORIDE 0.9% 100 ML IV SCH (21:45)
[2018-06-20] MEDS: PRAVASTATIN SODIUM 40 MG TAB PO SCH (22:35)
[2018-06-20] MEDS: PANTOPRAZOLE SODIUM 40 MG GRANULE PKT PEG/G-TUBE SCH (22:35)
[2018-06-20] MEDS: INSULIN REGULAR 100 UNIT in SODIUM CHLORIDE 0.9% 100 ML IV SCH (23:08)
[2018-06-20 23:49] LABS: Glucose,Whole Blood 451 mg/dL (75-99)
[2018-06-21 00:49] LABS: Glucose,Whole Blood 385 mg/dL (75-99)
[2018-06-21 01:26] LABS: Glucose,Whole Blood 365 mg/dL (75-99)
[2018-06-21] MEDS: PIPERACILLIN-TAZOBACTAM 3.375 GM in SODIUM CHLORIDE 0.9% 100 ML IVPB SCH ×3 (01:29→15:52)
[2018-06-21 02:23] LABS: Glucose,Whole Blood 271 mg/dL (75-99)
[2018-06-21 03:12] LABS: Glucose,Whole Blood 223 mg/dL (75-99)
[2018-06-21 05:25] LABS: Glucose,Whole Blood 135 mg/dL (75-99)
[2018-06-21] MEDS: INSULIN ASPART (NovoLOG) 100 UNIT/ML VIAL SQ SCH ×10 (06:23→21:56)
[2018-06-21 07:14] LABS: Anisocytosis Slight; Basophils # (A) 0.1 k/uL (0-0.2); Basophils % (A) 0 %; Eosinophils # (A) 0.2 k/uL (0-0.7); Eosinophils % (A) 1 %; HCT 37.6 % (34.0-46.0); HGB 11.2 gm/dL (11.4-16.0); Hypochromasia Marked; Lymphocytes # (A) 1.5 k/uL (1.0-4.8); Lymphocytes % (A) 10 %; MCH 24.3 pg (25.0-35.0); MCHC 29.7 g/dL (31.0-37.0); MCV 81.7 fL (80.0-100.0); Mean Platelet Volume 7.8; Monocytes # (A) 0.8 k/uL (0-1.0); Monocytes % (A) 5 %; Neutrophils % (A) 83 %; Platelet Count 361 k/uL (150-450); RDW 17.1 % (11.5-15.5); WBC 15.7 k/uL (3.8-10.6)
[2018-06-21 07:16] LABS: Prothrombin Time 29.3 sec (9.0-12.0)
--- NOTE | 2018-06-21 07:24 | XR ---
EXAMINATION TYPE: XR chest 1V DATE OF EXAM: 06/21/2018 HISTORY: sob. REFERENCE: Previous study dated 06/19/2018. FINDINGS: There has been a midline sternotomy. There is a bipolar pacemaker place on the right. The heart is enlarged. There is bibasilar airspace disease. There are small effusions. IMPRESSION: 1. CARDIOMEGALY. 2. CONTINUING BIBASILAR AIRSPACE DISEASE. 3. SMALL, BILATERAL EFFUSIONS.
[2018-06-21 07:28] LABS: Anion Gap 1 mmol/L; Blood Urea Nitrogen 28 mg/dL (7-17); Calcium 9.8 mg/dL (8.4-10.2); Carbon Dioxide 39 mmol/L (22-30); Chloride 106 mmol/L (98-107); Glucose 151 mg/dL (74-99); Potassium 3.8 mmol/L (3.5-5.1); Sodium 146 mmol/L (137-145)
[2018-06-21 07:33] LABS: Glucose,Whole Blood 162 mg/dL (75-99)
[2018-06-21] MEDS: METOPROLOL TARTRATE 50 MG TAB PEG/G-TUBE SCH ×2 (09:01→21:52)
[2018-06-21] MEDS: metFORMIN 500 MG TAB PO SCH ×2 (09:01→17:49)
[2018-06-21] MEDS: ASPIRIN 81 MG PEG/G-TUBE SCH (09:01)
[2018-06-21] MEDS: amLODIPine 5 MG TAB PEG/G-TUBE SCH (09:01)
[2018-06-21] MEDS: FERROUS SULFATE ORAL ELIXIR 300 MG/5 ML CUP PO SCH (09:02)
[2018-06-21] MEDS: CITALOPRAM HYDROBROMIDE 10 MG TAB PO SCH (09:02)
[2018-06-21] MEDS: levETIRAcetam ORAL SOLN 500 MG/5 ML CUP PEG/G-TUBE SCH (09:02)
[2018-06-21] MEDS: GABAPENTIN 100 MG PEG/G-TUBE SCH ×3 (09:03→22:03)
[2018-06-21 09:24] LABS: Glucose,Whole Blood 178 mg/dL (75-99)
--- NOTE | 2018-06-21 11:09 | P.CNPUL ---
History of Present Illness Consult date: 06/21/18 Requesting physician: Armando Stroud Reason for consult: abnormal CXR/CT Chief complaint: Fever, shortness of breath History of present illness: Bradley is a 73-year-old female patient who resides in extended care facility. She has a history of CVA with left-sided paralysis, dysphagia with PEG tube placement, hyperlipidemia, seizures, hypertension, atrial fibrillation anticoagulated with warfarin, permanent pacemaker implantation, diabetes mellitus, GI bleed, dementia. She was brought here to the emergency room on 06/15/2018 after developing fevers and apparent shortness of breath. We're con sulted yesterday for concerns regarding aspiration pneumonia. Chest x-ray shows evidence of cardiomegaly, bibasilar airspace disease, small bilateral effusions. She did have a temp of 99.9 earlier this morning currently 98.4. She is on 4 L high flow nasal cannula and maintaining good O2 saturations in the mid 90s. Somewhat tachycardic. Urine culture was positive for Proteus mirabilis. Blood culture reveals no growth. White count 15.7. Hemoglobin 11.2. INR 3.0. Sodium 146. Creatinine 0.39. ProBNP 2030. She is currently on Zosyn. Insulin drip at 3 units per hour. Review of Systems ROS unobtainable: due to mental status Past Medical History Past Medical History: Atrial Fibrillation, Atrial Flutter, Asthma, Cancer, Heart Failure, CVA/TIA, Dementia, Diabetes Mellitus, GERD/Reflux, GI Bleed, Hyperlipi demia, Hypertension, Pneumonia, Sleep Apnea/CPAP/BIPAP Additional Past Medical History / Comment(s): Verified with [facility] papers r/t son Jose Rafael being unsure of history. Jose Rafael states he is also pt's DPOA. 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, post traumatic seizures, History of Any Multi-Drug Resistant Organisms: None Reported Past Surgical History: Breast Surgery, Cardiac Valve Replacement, Heart Catheterization With Stent, Hysterectomy, Orthopedic Surgery, Pacemaker, Tonsillectomy Additional Past Surgical History / Comment(s): Peg tube, mechanical mitral valve 2000, polypectomy spinal cord/cyst removed, TEEs, CVNs, colonoscopies, bilateral cataract removal/lens implants, L rotator cuff repair, R femur fracture with IM hip/screw/nail, L breast lumpectomy, Past Anesthesia/Blood Transfusion Reactions: No Reported Reaction Date of Last Stent Placement:: 2006 Type of Cardiac Device: Permanent Pacemaker Device Placement Date:: 2009 Past Psychological History: Depression Additional Psychological History / Comment(s): Pt resides at [facility]. She is nonambulatory-get placed in wheelchair. She needs assist with all ADLs Pt is NPO and has a peg tube. Smoking Status: Former smoker Past Alcohol Use History: Unable to Obtain Additional Past Alcohol Use History / Comment(s): SMOKED OFF AND ON 1960 LESS THAN A YEAR THEN QUIT Past Drug Use History: Unable to Obtain - Past Family History Father Family Medical History: GI Bleed Additional Family Medical History / Comment(s): OF BLEEDING ULCER AT AGE 64 Mother Family Medical History: Cancer, CVA/TIA Additional Family Medical History / Comment(s): HX STROKES, COLON CANCER Medications and Allergies Home Medications Medication Instructions Recorded Confirmed Type Pravastatin Sodium [Pravachol] 40 mg PEG/G-TUBE HS 05/20/17 06/15/18 History Citalopram Hydrobromide [CeleXA] 10 mg PEG/G-TUBE DAILY 09/27/17 06/15/18 History levETIRAcetam [Keppra Oral 100 mg PEG/G-TUBE DAILY 09/27/17 06/15/18 History Solution] Aspirin 81 mg PEG/G-TUBE DAILY 05/30/18 06/15/18 History Metoprolol Tartrate [Lopressor] 100 mg PEG/G-TUBE BID 05/30/18 06/15/18 History Omeprazole Susp 2mg/Ml 20 mg PEG/G-TUBE HS 05/30/18 06/15/18 History Warfarin [Coumadin] 10 mg PEG/G-TUBE SUWEFRSA 05/30/18 06/15/18 History amLODIPine [Norvasc] 5 mg PEG/G-TUBE DAILY 05/30/18 06/15/18 History Gabapentin Oral Soln [Neurontin 100 mg PEG/G-TUBE TID #14 ml 05/31/18 06/15/18 Rx Oral Soln] Insulin Detemir (Levemir) [Levemir] 28 unit SQ HS #0 05/31/18 06/15/18 Rx Ferrous Sulfate [Feosol] 325 mg PEG/G-TUBE DAILY 06/15/18 06/15/18 History Warfarin Sodium [Coumadin] 7.5 mg PO MOTUTH 06/15/18 06/15/18 History Allergies Allergy/AdvReac Type Severity Reaction Status Date / Time ciprofloxacin [From Cipro] Allergy Rash/Hives Verified 06/15/18 14:12 ciprofloxacin HCl Allergy Rash/Hives Verified 06/15/18 14:12 [From Cipro] Quinolones Allergy Unknown Verified 06/15/18 14:12 Physical Exam Vitals: Vital Signs Temp Pulse Resp BP Pulse Ox 06/21/18 07:35 98.4 F 128 H 18 143/98 96 06/21/18 01:21 99.9 F H 100 14 134/83 98 06/21/18 00:35 16 06/20/18 20:30 99 18 06/20/18 19:55 99.6 F 99 16 164/95 92 L 06/20/18 15:00 98.8 F 102 H 15 126/90 95 Intake and Output 06/20/18 06/21/18 06/21/18 22:59 06:59 14:59 Intake Total 156.409 6.547 Output Total 600 Balance 156.409 -593.453 Intake: Intake, IV Titration 156.409 6.547 Amount Insulin Regular 100 unit 56.409 6.547 In Sodium Chloride 0.9% 100 ml @ Titrate IV .Q0M [facility] Rx#:[id number] Piperacillin-Tazobactam 3 100 .375 gm In Sodium Chloride 0.9% 100 ml @ 25 mls/hr IVPB Q8HR [facility] Rx# :[id number] Output: Urine 600 Other: Voiding Method Diaper Incontinent # Voids 2 GENERAL EXAM: 73-year-old female patient with previous CVA, mainly nonverbal. Alert, comfortable in no apparent distress. On 4 L high flow nasal cannula. HEAD: Normocephalic. EYES: Normal reaction of pupils, equal size. NOSE: Clear with pink turbinates. THROAT: No erythema or exudates. NECK: No masses, no JVD. CHEST: No chest wall deformity. LUNGS: Equal air entry with crackles in the bilateral posterior bases. CVS: S1 and S2 normal with no audible murmur, regular rhythm. ABDOMEN: No hepatosplenomegaly, normal bowel sounds, no guarding or rigidity. SPINE: Kyphoscoliosis SKIN: No rashes CENTRAL NERVOUS SYSTEM: Difficult to assess. EXTREMITIES: Left-sided weakness. There is no peripheral edema. No clubbing, no cyanosis. Peripheral pulses are intact. Results - Laboratory Findings CBC and BMP: 06/21/18 06:54 06/21/18 06:54 PT/INR, D-dimer PT 29.3 sec (9.0-12.0) H 06/21/18 06:54 INR 3.0 (<1.2) H 06/21/18 06:54 Abnormal lab findings: Abnormal Labs 06/15/18 06/15/18 06/15/18 14:36 14:42 14:42 WBC 19.0 H Hgb 11.2 L MCH 24.8 L MCHC 30.3 L RDW 17.1 H Neutrophils # 15.4 H PT INR APTT Sodium 136 L Chloride Carbon Dioxide 31 H BUN 27 H Creatinine 0.44 L Glucose 303 H POC Glucose (mg/dL) Hemoglobin A1c Plasma Lactic Acid Buddy Albumin 3.2 L Urine Appearance Turbid H Urine Protein 2+ H Urine Glucose (UA) Trace H Urine Blood Trace H Ur Leukocyte Esterase Large H Urine RBC 61 H Urine WBC >182 H Urine WBC Clumps Many H Ur Squamous Epith Cells 9 H Amorphous Sediment Occasional H Urine Bacteria Moderate H Urine Mucus Few H 06/15/18 06/15/18 06/15/18 14:42 14:42 22:07 WBC Hgb MCH MCHC RDW Neutrophils # PT 33.1 H INR 3.4 H APTT 30.5 H Sodium Chloride Carbon Dioxide BUN Creatinine Glucose POC Glucose (mg/dL) 230 H Hemoglobin A1c Plasma Lactic Acid Buddy 2.6 H* Albumin Urine Appearance Urine Protein Urine Glucose (UA) Urine Blood Ur Leukocyte Esterase Urine RBC Urine WBC Urine WBC Clumps Ur Squamous Epith Cells Amorphous Sediment Urine Bacteria Urine Mucus 06/16/18 06/16/18 06/16/18 07:00 10:30 10:30 WBC Hgb MCH MCHC RDW Neutrophils # PT 47.3 H INR 4.9 H APTT Sodium Chloride Carbon Dioxide BUN Creatinine Glucose POC Glucose (mg/dL) 177 H Hemoglobin A1c 6.9 H Plasma Lactic Acid Buddy Albumin Urine Appearance Urine Protein Urine Glucose (UA) Urine Blood Ur Leukocyte Esterase Urine RBC Urine WBC Urine WBC Clumps Ur Squamous Epith Cells Amorphous Sediment Urine Bacteria Urine Mucus 06/16/18 06/16/18 06/16/18 12:21 17:15 23:36 WBC Hgb MCH MCHC RDW Neutrophils # PT INR APTT Sodium Chloride Carbon Dioxide BUN Creatinine Glucose POC Glucose (mg/dL) 219 H 280 H 340 H Hemoglobin A1c Plasma Lactic Acid Buddy Albumin Urine Appearance Urine Protein Urine Glucose (UA) Urine Blood Ur Leukocyte Esterase Urine RBC Urine WBC Urine WBC Clumps Ur Squamous Epith Cells Amorphous Sediment Urine Bacteria Urine Mucus 06/17/18 06/17/18 06/17/18 07:03 07:29 07:29 WBC 14.9 H Hgb 10.2 L MCH 24.9 L MCHC 30.0 L RDW 17.4 H Neutrophils # 12.7 H PT 55.9 H INR 5.8 H* APTT Sodium Chloride Carbon Dioxide BUN Creatinine Glucose POC Glucose (mg/dL) 256 H Hemoglobin A1c Plasma Lactic Acid Buddy Albumin Urine Appearance Urine Protein Urine Glucose (UA) Urine Blood Ur Leukocyte Esterase Urine RBC Urine WBC Urine WBC Clumps Ur Squamous Epith Cells Amorphous Sediment Urine Bacteria Urine Mucus 06/17/18 06/17/18 06/17/18 07:29 11:17 16:36 WBC Hgb MCH MCHC RDW Neutrophils # PT INR APTT Sodium Chloride Carbon Dioxide BUN Creatinine 0.31 L Glucose 238 H POC Glucose (mg/dL) 314 H 327 H Hemoglobin A1c Plasma Lactic Acid Buddy Albumin Urine Appearance Urine Protein Urine Glucose (UA) Urine Blood Ur Leukocyte Esterase Urine RBC Urine WBC Urine WBC Clumps Ur Squamous Epith Cells Amorphous Sediment Urine Bacteria Urine Mucus 06/17/18 06/18/18 06/18/18 20:31 07:04 07:22 WBC Hgb MCH MCHC RDW Neutrophils # PT 32.6 H INR 3.4 H APTT Sodium Chloride Carbon Dioxide BUN Creatinine Glucose POC Glucose (mg/dL) 306 H 125 H Hemoglobin A1c Plasma Lactic Acid Buddy Albumin Urine Appearance Urine Protein Urine Glucose (UA) Urine Blood Ur Leukocyte Esterase Urine RBC Urine WBC Urine WBC Clumps Ur Squamous Epith Cells Amorphous Sediment Urine Bacteria Urine Mucus 06/18/18 06/18/18 06/18/18 07:22 11:40 17:17 WBC Hgb MCH MCHC RDW Neutrophils # PT INR APTT Sodium Chloride 108 H Carbon Dioxide BUN 19 H Creatinine 0.27 L Glucose 105 H POC Glucose (mg/dL) 137 H 261 H Hemoglobin A1c Plasma Lactic Acid Buddy Albumin Urine Appearance Urine Protein Urine Glucose (UA) Urine Blood Ur Leukocyte Esterase Urine RBC Urine WBC Urine WBC Clumps Ur Squamous Epith Cells Amorphous Sediment Urine Bacteria Urine Mucus 06/18/18 06/19/18 06/19/18 20:41 07:16 07:16 WBC Hgb [facility] RDW Neutrophils # PT 25.9 H INR 2.7 H APTT Sodium Chloride Carbon Dioxide 31 H BUN 18 H Creatinine 0.33 L Glucose POC Glucose (mg/dL) 276 H Hemoglobin A1c Plasma Lactic Acid Buddy Albumin Urine Appearance Urine Protein Urine Glucose (UA) Urine Blood Ur Leukocyte Esterase Urine RBC Urine WBC Urine WBC Clumps Ur Squamous Epith Cells Amorphous Sediment Urine Bacteria Urine Mucus 06/19/18 06/19/18 06/19/18 12:20 17:09 20:18 WBC Hgb [facility] RDW Neutrophils # PT INR APTT Sodium Chloride Carbon Dioxide BUN Creatinine Glucose POC Glucose (mg/dL) 131 H 221 H 211 H Hemoglobin A1c Plasma Lactic Acid Buddy Albumin Urine Appearance Urine Protein Urine Glucose (UA) Urine Blood Ur Leukocyte Esterase Urine RBC Urine WBC Urine WBC Clumps Ur Squamous Epith Cells Amorphous Sediment Urine Bacteria Urine Mucus 06/20/18 06/20/18 06/20/18 07:12 07:43 07:43 WBC Hgb [facility] MCHC RDW Neutrophils # PT 26.5 H INR 2.7 H APTT Sodium Chloride Carbon Dioxide 36 H BUN 23 H Creatinine 0.42 L Glucose POC Glucose (mg/dL) 119 H Hemoglobin A1c Plasma Lactic Acid Buddy Albumin Urine Appearance Urine Protein Urine Glucose (UA) Urine Blood Ur Leukocyte Esterase Urine RBC Urine WBC Urine WBC Clumps Ur Squamous Epith Cells Amorphous Sediment Urine Bacteria Urine Mucus 06/20/18 06/20/18 06/20/18 11:52 16:49 20:58 WBC Hgb [facility] MCHC RDW Neutrophils # PT INR APTT Sodium Chloride Carbon Dioxide BUN Creatinine Glucose POC Glucose (mg/dL) 263 H 439 H 447 H Hemoglobin A1c Plasma Lactic Acid Buddy Albumin Urine Appearance Urine Protein Urine Glucose (UA) Urine Blood Ur Leukocyte Esterase Urine RBC Urine WBC Urine WBC Clumps Ur Squamous Epith Cells Amorphous Sediment Urine Bacteria Urine Mucus 06/20/18 06/21/18 06/21/18 23:49 00:47 01:24 WBC Hgb MCH MCHC RDW Neutrophils # PT INR APTT Sodium Chloride Carbon Dioxide BUN Creatinine Glucose POC Glucose (mg/dL) 451 H 385 H 365 H Hemoglobin A1c Plasma Lactic Acid Buddy Albumin Urine Appearance Urine Protein Urine Glucose (UA) Urine Blood Ur Leukocyte Esterase Urine RBC Urine WBC Urine WBC Clumps Ur Squamous Epith Cells Amorphous Sediment Urine Bacteria Urine Mucus 06/21/18 06/21/18 06/21/18 02:22 03:10 05:23 WBC Hgb MCH MCHC RDW Neutrophils # PT INR APTT Sodium Chloride Carbon Dioxide BUN Creatinine Glucose POC Glucose (mg/dL) 271 H 223 H 135 H Hemoglobin A1c Plasma Lactic Acid Buddy Albumin Urine Appearance Urine Protein Urine Glucose (UA) Urine Blood Ur Leukocyte Esterase Urine RBC Urine WBC Urine WBC Clumps Ur Squamous Epith Cells Amorphous Sediment Urine Bacteria Urine Mucus 06/21/18 06/21/18 06/21/18 06:54 06:54 06:54 WBC 15.7 H Hgb 11.2 L MCH 24.3 L MCHC 29.7 L RDW 17.1 H Neutrophils # 13.0 H PT 29.3 H INR 3.0 H APTT Sodium 146 H Chloride Carbon Dioxide 39 H BUN 28 H Creatinine 0.39 L Glucose 151 H POC Glucose (mg/dL) Hemoglobin A1c Plasma Lactic Acid Buddy Albumin Urine Appearance Urine Protein Urine Glucose (UA) Urine Blood Ur Leukocyte Esterase Urine RBC Urine WBC Urine WBC Clumps Ur Squamous Epith Cells Amorphous Sediment Urine Bacteria Urine Mucus 06/21/18 06/21/18 07:22 09:23 WBC Hgb MCH MCHC RDW Neutrophils # PT INR APTT Sodium Chloride Carbon Dioxide BUN Creatinine Glucose POC Glucose (mg/dL) 162 H 178 H Hemoglobin A1c Plasma Lactic Acid Buddy Albumin Urine Appearance Urine Protein Urine Glucose (UA) Urine Blood Ur Leukocyte Esterase Urine RBC Urine WBC Urine WBC Clumps Ur Squamous Epith Cells Amorphous Sediment Urine Bacteria Urine Mucus - Diagnostic Findings Chest x-ray: image reviewed Assessment and Plan Assessment: Impression: #1 Acute hypoxic respiratory failure secondary to an acute bilateral aspiration pneumonia in a patient with a history of aspiration and PEG tube feedings. #2 History of CVA with left-sided weakness and dysphagia requiring PEG tube placement. #3 Underlying dementia with cognitive impairment. #4 Atrial fibrillation, anticoagulated with warfarin. Permanent pacemaker in place. #5 Hypertension. #6 Hyperlipidemia. #7 Diabetes mellitus. #8 Gastroesophageal reflux disease. #9 Poor overall functional performance based on the above-mentioned multiple comorbidities. Plan: The patient was seen and evaluated by Dr. Hudson. We'll continue with IV Zosyn. Strict aspiration precautions. We'll continue to follow make further recommendations based on her clinical status. I, the cosigning physician, performed a history & physical examination of the patient. Lungs sounds with crackles in the bilateral posterior bases. Maintaining good O2 saturations in the 90s on 4 L high flow nasal cannula. I discussed the assessment and plan of care with my nurse practitioner, Colleen Mckay. I attest to the above note as dictated by her. Time with Patient: Greater than 30
[2018-06-21 11:19] LABS: Glucose,Whole Blood 168 mg/dL (75-99)
--- NOTE | 2018-06-21 12:16 | PN ---
PROGRESS NOTE DATE OF SERVICE: 06/20/2018 PRESENTING COMPLAINT: Short of breath, high sugars. INTERVAL HISTORY: This patient with prior stroke presented with aspiration pneumonia. Fevers have come down. The patient is still requiring about 5 L of oxygen. Sugars started running high today and I ordered insulin drip. The patient is still a bit congested in the chest. The patient also did get IV Lasix earlier. REVIEW OF SYSTEMS: Cannot really be done as patient speaks occasional words. CURRENT MEDICATIONS: Current medications are reviewed that include IV Zosyn. Patient did get some IV Lasix. PHYSICAL EXAMINATION: On examination, afebrile, pulse 102 respiration 15, blood pressure 126/90, pulse ox 95% on 3 L. GENERAL APPEARANCE: Sitting up, awake, tired. EYES: Pupils equal. Conjunctivae normal. NECK: JVD not raised. Mass not palpable. RESPIRATORY: Effort increased. LUNGS: Decreased breath sounds. Occasional crackles. CARDIOVASCULAR: First and second sounds normal. Minimal edema. ABDOMEN: Soft, nontender. Liver and spleen not palpable. PEG tube in place. PSYCHIATRY: Patient does speak occasional words. NEUROLOGICAL: Weakness on the left side. INVESTIGATIONS: INR 2.7. Potassium 3.5. BUN 23, creatinine 0.42. Accu-Cheks 263, 439. ASSESSMENT: 1. Acute bilateral aspiration pneumonia in a patient with PEG tube feeding. 2. Possible bilateral pulmonary edema from fluids. 3. Acute congestive heart failure exacerbation from systolic dysfunction, ejection fraction 45% from a combination of systolic and diastolic dysfunction. 4. Acute urinary tract infection from cystitis from Proteus mirabilis. 5. Chronic dysphagia, patient is n.p.o. with PEG tube feeding. 6. Paroxysmal atrial fibrillation, flutter in sinus rhythm. 7. Coumadin toxicity, no evidence of bleeding. Currently, INR is therapeutic. 8. Severe cognitive impairment from underlying dementia/stroke. 9. Diabetes mellitus type 2 uncontrolled from hyperglycemia, now being started on insulin drip. 10.Gastroesophageal reflux disease. 11.Essential hypertension. 12.Hyperlipidemia. 13.Chronic medical debility, uses a wheelchair. 14.Double incontinence. 15.CODE STATUS: FULL CODE. 16.The patient's son is the DPOA. 17.Acute hypoxic respiratory failure, probably a combination of pneumonia and congestive heart failure. PLAN: Patient is started on insulin drip. We will give some Lasix. Repeat a chest x- ray in the morning. We will get Cardiology and Pulmonary opinion. Also check a procalcitonin and a proBNP in the morning and repeat a chest x-ray. MMODL / IJN: [id number] /
--- NOTE | 2018-06-21 12:16 | P.CRDCN ---
History of Present Illness Consult date: 06/21/18 Chief complaint: Shortness of breath History of present illness: This is a pleasant 73-year-old female patient with an extensive past medical his tory. The patient currently is residing at the [facility]. She does have history of stroke in the past with residual left-sided paralysis, she does have dysphagia with PEG tube placement, chronic respiratory failure with tracheostomy tube, coronary artery disease and status post CABG, paroxysmal atrial fibrillation, hypertension, as well as permanent pacemaker implantation. The patient was brought to the emergency room a few days ago after she was found to have elevated temperature at the [facility]. With that she was also experiencing worsening shortness of breath. The initial impression was an aspiration pneumonia and pulmonary was consulted to see the patient and currently the patient is on antibiotic. We requested to see the patient for further evaluation of congestive heart failure. The patient stated that she was more short of breath. Beside that she has been experiencing cough. No symptoms of chest pain or chest discomfort. No worsening bilateral lower extremities edema. Please note that the patient overall is a poor historian. The chest x-r ay revealed evidence of cardiomegaly with bibasilar airspace disease and small bilateral pleural effusion. She underwent an echocardiogram which revealed mildly impaired LV function was EF around 45% with mild MR and mild TR. A BMP is 2000. Sodium is 146, hemoglobin is 11.2, and the INR was 3.0. Past Medical History Past Medical History: Atrial Fibrillation, Atrial Flutter, Asthma, Cancer, Heart Failure, CVA/TIA, Dementia, Diabetes Mellitus, GERD/Reflux, GI Bleed, Hyperlipidemia, Hypertension, Pneumonia, Sleep Apnea/CPAP/BIPAP Additional Past Medical History / Comment(s): Verified with [email or web address] papers r/t son Jose Rafael being unsure of history. Jose Rafael states he is also pt's DPOA. 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, post traumatic seizures, History of Any Multi-Drug Resistant Organisms: None Reported Past Surgical History: Breast Surgery, Cardiac Valve Replacement, Heart Catheterization With Stent, Hysterectomy, Orthopedic Surgery, Pacemaker, Tonsillectomy Additional Past Surgical History / Comment(s): Peg tube, mechanical mitral valve 2000, polypectomy spinal cord/cyst removed, TEEs, CVNs, colonoscopies, bilateral cataract removal/lens implants, L rotator cuff repair, R femur fracture with IM hip/screw/nail, L breast lumpectomy, Past Anesthesia/Blood Transfusion Reactions: No Reported Reaction Date of Last Stent Placement:: 2006 Type of Cardiac Device: Permanent Pacemaker Device Placement Date:: 2009 Past Psychological History: Depression Additional Psychological History / Comment(s): Pt resides at [facility]. She is nonambulatory-get placed in wheelchair. She needs assist with all ADLs Pt is NPO and has a peg tube. Smoking Status: Former smoker Past Alcohol Use History: Unable to Obtain Additional Past Alcohol Use History / Comment(s): SMOKED OFF AND ON 1960 LESS THAN A YEAR THEN QUIT Past Drug Use History: Unable to Obtain - Past Family History Father Family Medical History: GI Bleed Additional Family Medical History / Comment(s): OF BLEEDING ULCER AT AGE 64 Mother Family Medical History: Cancer, CVA/TIA Additional Family Medical History / Comment(s): HX STROKES, COLON CANCER Medications and Allergies Home Medications Medication Instructions Recorded Confirmed Type Pravastatin Sodium [Pravachol] 40 mg PEG/G-TUBE HS 05/20/17 06/15/18 History Citalopram Hydrobromide [CeleXA] 10 mg PEG/G-TUBE DAILY 09/27/17 06/15/18 History levETIRAcetam [Keppra Oral 100 mg PEG/G-TUBE DAILY 09/27/17 06/15/18 History Solution] Aspirin 81 mg PEG/G-TUBE DAILY 05/30/18 06/15/18 History Metoprolol Tartrate [Lopressor] 100 mg PEG/G-TUBE BID 05/30/18 06/15/18 History Omeprazole Susp 2mg/Ml 20 mg PEG/G-TUBE HS 05/30/18 06/15/18 History Warfarin [Coumadin] 10 mg PEG/G-TUBE SUWEFRSA 05/30/18 06/15/18 History amLODIPine [Norvasc] 5 mg PEG/G-TUBE DAILY 05/30/18 06/15/18 History Gabapentin Oral Soln [Neurontin 100 mg PEG/G-TUBE TID #14 ml 05/31/18 06/15/18 Rx Oral Soln] Insulin Detemir (Levemir) [Levemir] 28 unit SQ HS #0 05/31/18 06/15/18 Rx Ferrous Sulfate [Feosol] 325 mg PEG/G-TUBE DAILY 06/15/18 06/15/18 History Warfarin Sodium [Coumadin] 7.5 mg PO MOTUTH 06/15/18 06/15/18 History Allergies Allergy/AdvReac Type Severity Reaction Status Date / Time ciprofloxacin [From Cipro] Allergy Rash/Hives Verified 06/15/18 14:12 ciprofloxacin HCl Allergy Rash/Hives Verified 06/15/18 14:12 [From Cipro] Quinolones Allergy Unknown Verified 06/15/18 14:12 Physical Exam Vitals: Vital Signs Temp Pulse Resp BP Pulse Ox 06/21/18 08:00 128 H 18 06/21/18 07:35 98.4 F 128 H 18 143/98 96 06/21/18 01:21 99.9 F H 100 14 134/83 98 06/21/18 00:35 16 06/20/18 20:30 99 18 06/20/18 19:55 99.6 F 99 16 164/95 92 L 06/20/18 15:00 98.8 F 102 H 15 126/90 95 Intake and Output 06/20/18 06/21/18 06/21/18 22:59 06:59 14:59 Intake Total 156.409 12.355 Output Total 600 Balance 156.409 -587.645 Intake: Intake, IV Titration 156.409 12.355 Amount Insulin Regular 100 unit 56.409 12.355 In Sodium Chloride 0.9% 100 ml @ Titrate IV .Q0M [facility] Rx#:[id number] Piperacillin-Tazobactam 3 100 .375 gm In Sodium Chloride 0.9% 100 ml @ 25 mls/hr IVPB Q8HR [facility] Rx# :[id number] Output: Urine 600 Other: Voiding Method Diaper Diaper Incontinent Incontinent # Voids 2 - Constitutional General appearance: no acute distress - Respiratory Respiratory: bilateral: diminished - Cardiovascular Rhythm: regular Heart sounds: normal: S1, S2 Results 06/21/18 06:54 06/21/18 06:54 Coagulation 06/21/18 Range/Units 06:54 PT 29.3 H (9.0-12.0) sec CBC 06/21/18 Range/Units 06:54 WBC 15.7 H (3.8-10.6) k/uL RBC 4.60 (3.80-5.40) m/uL Hgb 11.2 L (11.4-16.0) gm/dL Hct 37.6 (34.0-46.0) % Plt Count 361 (150-450) k/uL Comprehensive Metabolic Panel 06/21/18 Range/Units 06:54 Sodium 146 H (137-145) mmol/L Potassium 3.8 (3.5-5.1) mmol/L Chloride 106 (98-107) mmol/L Carbon Dioxide 39 H (22-30) mmol/L BUN 28 H (7-17) mg/dL Creatinine 0.39 L (0.52-1.04) mg/dL Glucose 151 H (74-99) mg/dL Calcium 9.8 (8.4-10.2) mg/dL Current Medications Generic Name Dose Route Start Last Admin Trade Name Freq PRN Reason Stop Dose Admin Acetaminophen 500 mg 06/20/18 17:41 06/20/18 23:47 Tylenol Tab PO 500 mg Q6HR PRN Administration Fever and/ or Pain Amlodipine Besylate 5 mg 06/16/18 09:00 06/21/18 09:01 Norvasc PEG/G-TUBE 5 mg DAILY JM Administration Aspirin 81 mg 06/16/18 09:00 06/21/18 09:01 Aspirin PEG/G-TUBE 81 mg DAILY JM Administration Citalopram Hydrobromide 10 mg 06/16/18 09:00 06/21/18 09:02 Celexa PO 10 mg DAILY JM Administration Ferrous Sulfate 300 mg 06/18/18 12:00 06/21/18 09:02 Feosol PO 300 mg 1200 JM Administration Piperacillin Sod/Tazobactam 100 mls @ 25 mls/hr 06/16/18 00:00 06/21/18 09:01 Sod 3.375 gm/ Sodium Chloride IVPB 06/25/18 00:01 25 mls/hr Q8HR JM Administration Insulin Human Regular 100 unit 101 mls @ 0 mls/hr 06/20/18 21:45 06/21/18 11:19 / Sodium Chloride IV 2.48 units/hrs .Q0M JM 2.5 mls/hr Titration Protocol Titrate Insulin Aspart 0 unit 06/18/18 12:30 06/21/18 11:19 Novolog SQ Not Given ACHS JM Protocol Insulin Aspart 11 unit 06/21/18 07:30 06/21/18 11:19 Novolog 0.13 unit/kg (11 unit) Not Given SQ AC-TID JM Insulin Aspart 11 unit 06/21/18 07:30 06/21/18 11:19 Novolog 0.13 unit/kg (11 unit) Not Given SQ AC-TID JM Levetiracetam 100 mg 06/16/18 09:00 06/21/18 09:02 Keppra Oral Soln PEG/G-TUBE 100 mg DAILY JM Administration Metformin HCl 500 mg 06/19/18 07:30 06/21/18 09:01 Glucophage PO 500 mg AC-BID JM Administration Metoprolol Tartrate 100 mg 06/15/18 21:00 06/21/18 09:01 Lopressor PEG/G-TUBE 100 mg BID JM Administration Miscellaneous Information 1 each 06/15/18 15:52 Pneumonia Protocol Utilized PO ONCE PRN Per Protocol Miscellaneous Information 1 each 06/15/18 18:20 Coumadin Per Pharmacy MISCELLANE DIRECTED PRN COUMADIN Patient's Own ( 100 mg 06/15/18 22:00 06/21/18 09:03 Gabapentin Oral Soln PEG/G-TUBE Not Given 100 Mg) TID JM Pantoprazole Sodium 40 mg 06/15/18 21:00 06/20/18 22:35 Protonix PEG/G-TUBE 40 mg HS JM Administration Pravastatin Sodium 40 mg 06/15/18 21:00 06/20/18 22:35 Pravachol PO 40 mg HS JM Administration Intake and Output 06/20/18 06/21/18 06/21/18 22:59 06:59 14:59 Intake Total 156.409 12.355 Output Total 600 Balance 156.409 -587.645 Intake: Intake, IV Titration 156.409 12.355 Amount Insulin Regular 100 unit 56.409 12.355 In Sodium Chloride 0.9% 100 ml @ Titrate IV .Q0M [facility] Rx#:[id number] Piperacillin-Tazobactam 3 100 .375 gm In Sodium Chloride 0.9% 100 ml @ 25 mls/hr IVPB Q8HR [facility] Rx# :[id number] Output: Urine 600 Other: Voiding Method Diaper Diaper Incontinent Incontinent # Voids 2 06/21/18 06:54 06/21/18 06:54 Assessment and Plan Assessment: Assessment #1 acute hypoxic respiratory failure #2 possible aspiration pneumonia #3 history of stroke with left sided weakness #4 coronary artery disease and status post CABG #5 status post permanent pacemaker #6. Mild cardiomyopathy with EF of 45% Plan #1 the patient's clinical scenario is consistent more with aspiration pneumonia then CHF. She was having fever and she does have a peg tube feeding #2 the mechanical continue the current medical regimen #3 no need for any further cardiac workup at this point #4 follow-up with the patient Thank you for allowing us participate in her care and we will continue following up with the patient
[2018-06-21 13:51] LABS: Glucose,Whole Blood 208 mg/dL (75-99)
[2018-06-21] MEDS: INSULIN REGULAR 100 UNIT in SODIUM CHLORIDE 0.9% 100 ML IV SCH (15:27)
[2018-06-21 15:35] LABS: Glucose,Whole Blood 228 mg/dL (75-99)
[2018-06-21 17:58] LABS: Glucose,Whole Blood 203 mg/dL (75-99)
[2018-06-21] MEDS ORDERED: WARFARIN 5 MG TAB PO ONE (18:00)
[2018-06-21 19:39] LABS: Glucose,Whole Blood 181 mg/dL (75-99)
[2018-06-21] MEDS: INSULIN DETEMIR (LEVEMIR) 100 UNIT/ML SYR SQ SCH (20:17)
--- NOTE | 2018-06-21 21:16 | PN ---
PROGRESS NOTE DATE OF SERVICE: 06/21/2018. HISTORY: This 73-year-old woman is admitted with shortness of breath, possibly aspiration pneumonia. The patient was running a fever yesterday. The patient had bilateral aspiration pneumonia. The PEG tube feeds also was given. The patient is also insulin drip also. The patient on IV antibiotics including Zosyn. The most recent chest x-ray which was done today and reviewed by myself personally showed significant bilateral lesions as well as pacemaker also. PAST MEDICAL HISTORY: Past medical history reviewed. REVIEW OF SYMPTOMS: Could not be taken, the patient is confused. CURRENT MEDICATIONS: 1. Tylenol 500 mg q.6h p.r.n. 2. Norvasc 5 mg per PEG tube. 3. Aspirin 81 mg per PEG. 4. Celexa 10 mg daily. 5. Iron sulfate. 6. NovoLog scale. 7. Insulin scale. 8. Keppra 100 mg per PEG daily. 9. Glucophage 500 mg b.i.d. 10.Lopressor. 11.Protonix. 12.Zosyn. 13.Pravachol. 14.Coumadin. PHYSICAL EXAMINATION: The patient is alert and oriented times three. Pulse 112, blood pressure 135/80. Respirations 18, temperature 99.2, pulse ox 94% on 4 L. HEENT is conjunctivae normal. Oral mucosa moist. NECK is no jugular venous distention. No carotid bruit. No lymph node enlargement. CARDIOVASCULAR: S1, S2 muffled. RESPIRATION: Breath sounds diminished in the bases. Bilateral scattered rhonchi and expiratory wheezing. ABDOMEN: Soft, nontender. LEGS: Are no edema. No swelling. CENTRAL NERVOUS SYSTEM: Diffusely weak. LABS: Accu-Cheks 208, 228. WBC 15.7, hemoglobin 11.2, and INR 3. Sodium 146. ASSESSMENT: 1. Acute bilateral aspiration pneumonia with possible sepsis with acute hypoxic respiratory failure, combination of pneumonia and congestive heart failure. 2. Change in mental status acute on chronic metabolic encephalopathy. 3. Status post PEG tube feeding. 4. Bilateral pulmonary edema from fluids. 5. Congestive heart failure exacerbation, acute on chronic systolic dysfunction, ejection fraction 45%. 6. Combination systolic and diastolic dysfunction. 7. Acute urinary tract infection from cystitis on Proteus mirabilis. 8. Chronic dysphagia. The patient n.p.o. with PEG tube feeds. 9. Paroxysmal atrial fibrillation flutter sinus rhythm. 10.Coumadin toxicity. No evidence of bleeding. 11.Severe cognitive impairment is underlying dementia. 12.Diabetes mellitus type 2, uncontrolled with hyperglycemia. 13.Gastroesophageal reflux disease. 14.Hypertension. 15.Hyperlipidemia. 16.Chronic medical debility. 17.Incontinence. 18.Coumadin coagulopathy, present on admission. 19.FULL CODE. RECOMMENDATIONS AND DISCUSSION: I recommend to continue current medications, management. Symptomatic treatment. Otherwise, at this time, I would recommend at this time continue with broad-spectrum IV antibiotics. I would also recommend infectious disease evaluation also. Guarded prognosis because of multiple complex medical issues. Further recommendations to follow. See orders for details and we will optimize the bronchodilator treatment and continue cautious tube feeds and guarded prognosis. Further recommendations to follow. MMODL / IJN: [id number] /
[2018-06-21 21:40] LABS: Glucose,Whole Blood 208 mg/dL (75-99)
[2018-06-21] MEDS: PANTOPRAZOLE SODIUM 40 MG GRANULE PKT PEG/G-TUBE SCH (21:52)
[2018-06-21] MEDS: PRAVASTATIN SODIUM 40 MG TAB PO SCH (21:53)
--- NOTE | 2018-06-21 22:01 | P.CONS ---
History of Present Illness - Reason for Consult Consult date: 06/21/18 Sepsis and antibiotic recommendation Requesting physician: Kyle Logan - Chief Complaint Fever and aspiration - History of Present Illness Patient is 73 year old female with past medical history significant for CVA hemiparesis in this patient who do have a PEG tube for feeding patient is resident of a local skilled nursing the patient was sent to the ER at [facility] on 06/16/2018 with concern for fever and possible aspiration, patient initial x-ray was suspicious for a CHF clinic repeat was bilateral consolidation patient had did have a low-grade fever of 99 200.7 elevated white count of 19,000, patient also has significantly positive UA with urine culture later finalized with Proteus and the patient has been treated with IV Zosyn and infectious disease was consulted for further recommendation regarding antibiotic therapy, most of the information has been obtained from review the chart and from the family as the patient herself was unable to provide reliable history Review of Systems Positive points has been mentioned in HPI, complete review could not be obtained because of her mental status Past Medical History Past Medical History: Atrial Fibrillation, Atrial Flutter, Asthma, Cancer, Heart Failure, CVA/TIA, Dementia, Diabetes Mellitus, GERD/Reflux, GI Bleed, Hyp erlipidemia, Hypertension, Pneumonia, Sleep Apnea/CPAP/BIPAP Additional Past Medical History / Comment(s): Verified with [facility] papers r/t son Jose Rafael being unsure of history. Jose Rafael states he is also pt's DPOA. 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, post traumatic seizures, History of Any Multi-Drug Resistant Organisms: None Reported Past Surgical History: Breast Surgery, Cardiac Valve Replacement, Heart Catheterization With Stent, Hysterectomy, Orthopedic Surgery, Pacemaker, Tonsillectomy Additional Past Surgical History / Comment(s): Peg tube, mechanical mitral valve 2000, polypectomy spinal cord/cyst removed, TEEs, CVNs, colonoscopies, bilateral cataract removal/lens implants, L rotator cuff repair, R femur fracture with IM hip/screw/nail, L breast lumpectomy, Past Anesthesia/Blood Transfusion Reactions: No Reported Reaction Date of Last Stent Placement:: 2006 Type of Cardiac Device: Permanent Pacemaker Device Placement Date:: 2009 Past Psychological History: Depression Additional Psychological History / Comment(s): Pt resides at [facility]. She is nonambulatory-get placed in wheelchair. She needs assist with all ADLs Pt is NPO and has a peg tube. Smoking Status: Former smoker Past Alcohol Use History: Unable to Obtain Additional Past Alcohol Use History / Comment(s): SMOKED OFF AND ON 1960 LESS THAN A YEAR THEN QUIT Past Drug Use History: Unable to Obtain - Past Family History Father Family Medical History: GI Bleed Additional Family Medical History / Comment(s): OF BLEEDING ULCER AT AGE 64 Mother Family Medical History: Cancer, CVA/TIA Additional Family Medical History / Comment(s): HX STROKES, COLON CANCER Medications and Allergies Home Medications Medication Instructions Recorded Confirmed Type Pravastatin Sodium [Pravachol] 40 mg PEG/G-TUBE HS 05/20/17 06/15/18 History Citalopram Hydrobromide [CeleXA] 10 mg PEG/G-TUBE DAILY 09/27/17 06/15/18 History levETIRAcetam [Keppra Oral 100 mg PEG/G-TUBE DAILY 09/27/17 06/15/18 History Solution] Aspirin 81 mg PEG/G-TUBE DAILY 05/30/18 06/15/18 History Metoprolol Tartrate [Lopressor] 100 mg PEG/G-TUBE BID 05/30/18 06/15/18 History Omeprazole Susp 2mg/Ml 20 mg PEG/G-TUBE HS 05/30/18 06/15/18 History Warfarin [Coumadin] 10 mg PEG/G-TUBE SUWEFRSA 05/30/18 06/15/18 History amLODIPine [Norvasc] 5 mg PEG/G-TUBE DAILY 05/30/18 06/15/18 History Gabapentin Oral Soln [Neurontin 100 mg PEG/G-TUBE TID #14 ml 05/31/18 06/15/18 Rx Oral Soln] Insulin Detemir (Levemir) [Levemir] 28 unit SQ HS #0 05/31/18 06/15/18 Rx Ferrous Sulfate [Feosol] 325 mg PEG/G-TUBE DAILY 06/15/18 06/15/18 History Warfarin Sodium [Coumadin] 7.5 mg PO MOTUTH 06/15/18 06/15/18 History Allergies Allergy/AdvReac Type Severity Reaction Status Date / Time ciprofloxacin [From Cipro] Allergy Rash/Hives Verified 06/15/18 14:12 ciprofloxacin HCl Allergy Rash/Hives Verified 06/15/18 14:12 [From Cipro] Quinolones Allergy Unknown Verified 06/15/18 14:12 Physical Exam Vitals: Vital Signs Temp Pulse Resp BP Pulse Ox 06/21/18 14:35 99.2 F 112 H 18 153/88 93 L 06/21/18 08:00 128 H 18 06/21/18 07:35 98.4 F 128 H 18 143/98 96 06/21/18 01:21 99.9 F H 100 14 134/83 98 06/21/18 00:35 16 06/20/18 20:30 99 18 06/20/18 19:55 99.6 F 99 16 164/95 92 L Intake and Output 06/21/18 06/21/18 06/21/18 06:59 14:59 22:59 Intake Total 156.409 18.938 6 Output Total 600 Balance 156.409 -581.062 6 Intake: Intake, IV Titration 156.409 18.938 6 Amount Insulin Regular 100 unit 56.409 18.938 6 In Sodium Chloride 0.9% 100 ml @ Titrate IV .Q0M [facility] Rx#:[id number] Piperacillin-Tazobactam 3 100 .375 gm In Sodium Chloride 0.9% 100 ml @ 25 mls/hr IVPB Q8HR [facility] Rx# :[id number] Output: Urine 600 Other: Voiding Method Diaper Incontinent # Voids 2 GENERAL DESCRIPTION: Elderly female lying in bed, no distress. No tachypnea or accessory muscle of respiration use. HEENT: Shows Pallor , no scleral icterus. Oral mucous membrane is dry. No pharyngeal erythema or thrush NECK: Trachea central, no thyromegaly. LUNGS: Unlabored breathing. Coarse breath in the bases bilaterally. No wheeze . HEART: S1, S2, regular rate and rhythm. No loud murmur ABDOMEN: Soft, no tenderness , guarding or rigidity, no organomegaly EXTREMITIES: No edema of feet. SKIN: No rash, no masses palpable. NEUROLOGICAL: The patient is awake, but aphasic orientation could not be examined. Results CBC & Chem 7: 06/21/18 06:54 06/21/18 06:54 Labs: Abnormal Lab Results - Last 24 Hours (Table) 06/20/18 06/20/18 06/20/18 Range/Units 16:49 20:58 23:49 WBC (3.8-10.6) k/uL Hgb (11.4-16.0) gm/dL MCH (25.0-35.0) pg MCHC (31.0-37.0) g/dL RDW (11.5-15.5) % Neutrophils # (1.3-7.7) k/uL PT (9.0-12.0) sec INR (<1.2) Sodium (137-145) mmol/L Carbon Dioxide (22-30) mmol/L BUN (7-17) mg/dL Creatinine (0.52-1.04) mg/dL Glucose (74-99) mg/dL POC Glucose (mg/dL) 439 H 447 H 451 H (75-99) mg/dL 06/21/18 06/21/18 06/21/18 Range/Units 00:47 01:24 02:22 WBC (3.8-10.6) k/uL Hgb (11.4-16.0) gm/dL MCH (25.0-35.0) pg MCHC (31.0-37.0) g/dL RDW (11.5-15.5) % Neutrophils # (1.3-7.7) k/uL PT (9.0-12.0) sec INR (<1.2) Sodium (137-145) mmol/L Carbon Dioxide (22-30) mmol/L BUN (7-17) mg/dL Creatinine (0.52-1.04) mg/dL Glucose (74-99) mg/dL POC Glucose (mg/dL) 385 H 365 H 271 H (75-99) mg/dL 06/21/18 06/21/18 06/21/18 Range/Units 03:10 05:23 06:54 WBC (3.8-10.6) k/uL Hgb (11.4-16.0) gm/dL MCH (25.0-35.0) pg MCHC (31.0-37.0) g/dL RDW (11.5-15.5) % Neutrophils # (1.3-7.7) k/uL PT 29.3 H (9.0-12.0) sec INR 3.0 H (<1.2) Sodium (137-145) mmol/L Carbon Dioxide (22-30) mmol/L BUN (7-17) mg/dL Creatinine (0.52-1.04) mg/dL Glucose (74-99) mg/dL POC Glucose (mg/dL) 223 H 135 H (75-99) mg/dL 06/21/18 06/21/18 06/21/18 Range/Units 06:54 06:54 07:22 WBC 15.7 H (3.8-10.6) k/uL Hgb 11.2 L (11.4-16.0) gm/dL MCH 24.3 L (25.0-35.0) pg MCHC 29.7 L (31.0-37.0) g/dL RDW 17.1 H (11.5-15.5) % Neutrophils # 13.0 H (1.3-7.7) k/uL PT (9.0-12.0) sec INR (<1.2) Sodium 146 H (137-145) mmol/L Carbon Dioxide 39 H (22-30) mmol/L BUN 28 H (7-17) mg/dL Creatinine 0.39 L (0.52-1.04) mg/dL Glucose 151 H (74-99) mg/dL POC Glucose (mg/dL) 162 H (75-99) mg/dL 06/21/18 06/21/18 06/21/18 Range/Units 09:23 11:17 13:49 WBC (3.8-10.6) k/uL Hgb (11.4-16.0) gm/dL MCH (25.0-35.0) pg MCHC (31.0-37.0) g/dL RDW (11.5-15.5) % Neutrophils # (1.3-7.7) k/uL PT (9.0-12.0) sec INR (<1.2) Sodium (137-145) mmol/L Carbon Dioxide (22-30) mmol/L BUN (7-17) mg/dL Creatinine (0.52-1.04) mg/dL Glucose (74-99) mg/dL POC Glucose (mg/dL) 178 H 168 H 208 H (75-99) mg/dL 06/21/18 Range/Units 15:32 WBC (3.8-10.6) k/uL Hgb (11.4-16.0) gm/dL MCH (25.0-35.0) pg MCHC (31.0-37.0) g/dL RDW (11.5-15.5) % Neutrophils # (1.3-7.7) k/uL PT (9.0-12.0) sec INR (<1.2) Sodium (137-145) mmol/L Carbon Dioxide (22-30) mmol/L BUN (7-17) mg/dL Creatinine (0.52-1.04) mg/dL Glucose (74-99) mg/dL POC Glucose (mg/dL) 228 H (75-99) mg/dL Microbiology - Last 24 Hours (Table) 06/15/18 14:42 Blood Culture - Preliminary Blood No Growth after 120 hours Assessment and Plan Assessment: 1-patient admitted to hospital with fever--- source is likely combination of aspiration pneumonia and UTI, with a urine culture showing a Proteus mirabilis, and this patient for did have underlying CVA and high risk of recurrent aspirati on need to monitor closely for recurrent aspiration episodes (1) Urinary tract infection due to Proteus Current Visit: Yes Status: Acute Code(s): N39.0 - URINARY TRACT INFECTION, SITE NOT SPECIFIED; B96.4 - PROTEUS (MIRABILIS) (MORGANII) CAUSING DIS CLASSD [id number] SNOMED Code(s): 614159572 (2) Aspiration pneumonia Current Visit: No Status: Acute Code(s): J69.0 - PNEUMONITIS DUE TO I NHALATION OF FOOD AND VOMIT SNOMED Code(s): 862307377 Plan: 1-strict aspiration precautions 2-Zosyn 3.375 g every 8 should provide coverage for both pneumonia and UTI 3-we will try to obtain sputum to narrow down on antibiotics We will follow-up on clinical condition and cultures to further adjust medication if needed Thank you for this consultation will follow this patient along with you Family at the bedside questions were answered Time with Patient: Greater than 30
[2018-06-21 23:32] LABS: Glucose,Whole Blood 153 mg/dL (75-99)
[2018-06-22] MEDS: PIPERACILLIN-TAZOBACTAM 3.375 GM in SODIUM CHLORIDE 0.9% 100 ML IVPB SCH ×3 (00:56→16:45)
[2018-06-22 01:33] LABS: Glucose,Whole Blood 121 mg/dL (75-99)
[2018-06-22 02:48] LABS: Glucose,Whole Blood 145 mg/dL (75-99)
[2018-06-22 05:03] LABS: Glucose,Whole Blood 185 mg/dL (75-99)
[2018-06-22 07:03] LABS: Glucose,Whole Blood 159 mg/dL (75-99)
[2018-06-22 07:24] LABS: Anisocytosis Slight; Basophils % (A) 0 %; Eosinophils % (A) 0 %; HCT 37.7 % (34.0-46.0); HGB 10.9 gm/dL (11.4-16.0); Hypochromasia Marked; Lymphocytes # (A) 1.6 k/uL (1.0-4.8); Lymphocytes % (A) 11 %; MCV 82.8 fL (80.0-100.0); Mean Platelet Volume 7.6; Monocytes # (A) 0.6 k/uL (0-1.0); Monocytes % (A) 4 %; Neutrophils # (A) 11.7 k/uL (1.3-7.7); Neutrophils % (A) 83 %; Platelet Count 332 k/uL (150-450); RBC 4.56 m/uL (3.80-5.40); RDW 17.3 % (11.5-15.5); WBC 14.2 k/uL (3.8-10.6)
[2018-06-22 07:29] LABS: INR 2.3 (<1.2)
[2018-06-22 07:30] LABS: Prothrombin Time 22.7 sec (9.0-12.0)
[2018-06-22 07:53] LABS: Anion Gap 4 mmol/L; Blood Urea Nitrogen 31 mg/dL (7-17); Calcium 9.6 mg/dL (8.4-10.2); Carbon Dioxide 35 mmol/L (22-30); Chloride 109 mmol/L (98-107); Glucose 163 mg/dL (74-99); Potassium 3.8 mmol/L (3.5-5.1); Sodium 148 mmol/L (137-145)
[2018-06-22] MEDS ORDERED: IPRATROPIUM-ALBUTEROL 3 ML NEB INHALATION PRN (08:20)
[2018-06-22] MEDS: INSULIN ASPART (NovoLOG) 100 UNIT/ML VIAL SQ SCH ×9 (08:22→22:09)
--- NOTE | 2018-06-22 08:22 | P.PN ---
Subjective Progress Note Date: 06/22/18 Principal diagnosis: Acute aspiration pneumonia, urinary tract infection As is a 73-year-old female patient who resides in extended care facility. She has a history of CVA with left-sided paralysis, dysphagia with PEG tube placement, hyperlipidemia, seizures, hypertension, atrial fibrillation anticoagulated with warfarin, permanent pacemaker implantation, diabetes mellitus, GI bleed, dementia. She was brought here to the emergency room on 06/15/2018 after developing fevers and apparent shortness of breath. We're consulted yesterday for concerns regarding aspiration pneumonia. Chest x-ray shows evidence of cardiomegaly, bibasilar airspace disease, small bilateral effusions. She did have a temp of 99.9 earlier this morning currently 98.4. She is on 4 L high flow nasal cannula and maintaining good O2 saturations in the mid 90s. Somewhat tachycardic. Urine culture was positive for Proteus mirabilis. Blood culture reveals no growth. White count 15.7. Hemoglobin 11.2. INR 3.0. Sodium 146. Creatinine 0.39. ProBNP 2030. She is currently on Zosyn. Insulin drip at 3 units per hour. On 06/22/2017 patient seen in follow-up on medical surgical floor. She is awake and alert, she is in bed, with head of the bed up 45. She denies any acute distress, denies any difficulty breathing, does have a congested cough, nonproductive. Lung sounds are diminished to auscultation. No complex chest pain, no fever or chills, T-max in last 24 hours was 99.9F, patient remains on supplemental oxygen to 4 L with a pulse ox of 94-95%. She is awake, oriented 2, to person and place, she is able to make her needs known, she is tolerating her tube feedings, lab work today was reviewed, 1 red cell, is 14.2, hemoglobin is 10.9, INR is 2.3, sodium is 148, potassium 3.8, chloride is 109, CO2 35, B1 is 31 and creatinine 0.40. She is on Zosyn for aspiration pneumonia and Proteus mirabilis urinary tract infection. Objective - Vital Signs Vital signs: Vital Signs Temp 98.4 F 06/22/18 07:41 Pulse 114 H 06/22/18 07:41 Resp 18 06/22/18 07:41 BP 149/89 06/22/18 07:41 Pulse Ox 94 L 06/22/18 07:41 Intake & Output 06/21/18 06/22/18 06/22/18 18:59 06:59 18:59 Intake Total 37.438 28.183 5.125 Output Total 1050 500 Balance -1012.562 -471.817 5.125 Intake: Intake, IV Titration 37.438 28.183 5.125 Amount Insulin Regular 100 unit 37.438 28.183 5.125 In Sodium Chloride 0.9% 100 ml @ Titrate IV .Q0M [facility] Rx#:[id number] Output: Urine 1050 500 Other: Voiding Method Diaper Diaper Incontinent Incontinent - Exam GENERAL EXAM: Alert, pleasant, 73-year-old white female on 4 L of oxygen, with a pulse ox of 94-95%, patient has left-sided hemiparesis, patient has generaliz ed swelling in upper and lower extremities. comfortable in no apparent distress. HEAD: Normocephalic/atraumatic. EYES: Normal reaction of pupils, equal size. Conjunctiva pink, sclera white. NOSE: Clear with pink turbinates. THROAT: No erythema or exudates. NECK: No masses, no JVD, no thyroid enlargement, no adenopathy. CHEST: No chest wall deformity. Symmetrical expansion. LUNGS: Equal air entry with no crackles, wheeze, rhonchi or dullness. Congested cough, nonproductive. CVS: Regular rate and rhythm, normal S1 and S2, no gallops, no murmurs, no rubs ABDOMEN: Soft, nontender. No hepatosplenomegaly, normal bowel sounds, no guarding or rigidity. EXTREMITIES: No clubbing, upper and lower extremity edema, no cyanosis, 2+ pulses and upper and lower extremities. MUSCULOSKELETAL: Muscle strength and tone normal. SPINE: No scoliosis or deformity SKIN: No rashes CENTRAL NERVOUS SYSTEM: Alert and oriented -2. No focal deficits, tone is normal in all 4 extremities. PSYCHIATRIC: Alert and oriented -2. Appropriate affect. Intact judgment and insight. - Labs CBC & Chem 7: 06/22/18 06:41 06/22/18 06:41 Labs: Abnormal Lab Results - Last 24 Hours (Table) 06/21/18 06/21/18 06/21/18 Range/Units 09:23 11:17 13:49 WBC (3.8-10.6) k/uL Hgb (11.4-16.0) gm/dL MCH (25.0-35.0) pg MCHC (31.0-37.0) g/dL RDW (11.5-15.5) % Neutrophils # (1.3-7.7) k/uL PT (9.0-12.0) sec INR (<1.2) Sodium (137-145) mmol/L Chloride (98-107) mmol/L Carbon Dioxide (22-30) mmol/L BUN (7-17) mg/dL Creatinine (0.52-1.04) mg/dL Glucose (74-99) mg/dL POC Glucose (mg/dL) 178 H 168 H 208 H (75-99) mg/dL 06/21/18 06/21/18 06/21/18 Range/Units 15:32 17:54 19:36 WBC (3.8-10.6) k/uL Hgb (11.4-16.0) gm/dL MCH (25.0-35.0) pg MCHC (31.0-37.0) g/dL RDW (11.5-15.5) % Neutrophils # (1.3-7.7) k/uL PT (9.0-12.0) sec INR (<1.2) Sodium (137-145) mmol/L Chloride (98-107) mmol/L Carbon Dioxide (22-30) mmol/L BUN (7-17) mg/dL Creatinine (0.52-1.04) mg/dL Glucose (74-99) mg/dL POC Glucose (mg/dL) 228 H 203 H 181 H (75-99) mg/dL 06/21/18 06/21/18 06/22/18 Range/Units 21:39 23:29 01:30 WBC (3.8-10.6) k/uL Hgb (11.4-16.0) gm/dL MCH (25.0-35.0) pg MCHC (31.0-37.0) g/dL RDW (11.5-15.5) % Neutrophils # (1.3-7.7) k/uL PT (9.0-12.0) sec INR (<1.2) Sodium (137-145) mmol/L Chloride (98-107) mmol/L Carbon Dioxide (22-30) mmol/L BUN (7-17) mg/dL Creatinine (0.52-1.04) mg/dL Glucose (74-99) mg/dL POC Glucose (mg/dL) 208 H 153 H 121 H (75-99) mg/dL 06/22/18 06/22/18 06/22/18 Range/Units 02:47 05:02 06:41 WBC (3.8-10.6) k/uL Hgb (11.4-16.0) gm/dL MCH (25.0-35.0) pg MCHC (31.0-37.0) g/dL RDW (11.5-15.5) % Neutrophils # (1.3-7.7) k/uL PT (9.0-12.0) sec INR (<1.2) Sodium 148 H (137-145) mmol/L Chloride 109 H (98-107) mmol/L Carbon Dioxide 35 H (22-30) mmol/L BUN 31 H (7-17) mg/dL Creatinine 0.40 L (0.52-1.04) mg/dL Glucose 163 H (74-99) mg/dL POC Glucose (mg/dL) 145 H 185 H (75-99) mg/dL 06/22/18 06/22/18 06/22/18 Range/Units 06:41 06:41 07:02 WBC 14.2 H (3.8-10.6) k/uL Hgb 10.9 L (11.4-16.0) gm/dL MCH 24.0 L (25.0-35.0) pg MCHC 29.0 L (31.0-37.0) g/dL RDW 17.3 H (11.5-15.5) % Neutrophils # 11.7 H (1.3-7.7) k/uL PT 22.7 H (9.0-12.0) sec INR 2.3 H (<1.2) Sodium (137-145) mmol/L Chloride (98-107) mmol/L Carbon Dioxide (22-30) mmol/L BUN (7-17) mg/dL Creatinine (0.52-1.04) mg/dL Glucose (74-99) mg/dL POC Glucose (mg/dL) 159 H (75-99) mg/dL Microbiology - Last 24 Hours (Table) 06/15/18 14:42 Blood Culture - Final Blood No Growth after 144 hours Assessment and Plan Plan: Assessment: #1 Acute hypoxic respiratory failure secondary to an acute bilateral aspiration pneumonia in a patient with a history of aspiration and PEG tube feedings. #2 History of CVA with left-sided weakness and dysphagia requiring PEG tube placement. #3 Underlying dementia with cognitive impairment. #4 Atrial fibrillation, anticoagulated with warfarin. Permanent pacemaker in place. #5 Hypertension. #6 Hyperlipidemia. #7 Diabetes mellitus. #8 Gastroesophageal reflux disease. #9 Poor overall functional performance based on the above-mentioned multiple comorbidities. Plan: We'll continue current medical treatment, maintain aspiration precautions, patient continues on Zosyn, ID service is following, pro-calcitonin level came back low suggesting that patient's infection has been adequately treated, the ID service is managing the antibiotics, will add breathing treatments. Patient is tolerating her tube feedings. Long-term prognosis is guarded, will continue to follow and make further recommendations. Repeat chest x-ray tomorrow I performed a history & physical examination of the patient and discussed their management with my nurse practitioner, Doreen Tineo. I reviewed the nurse practitioner's note and agree with the documented findings and plan of care. Lung sounds are positive for diminished breath sounds throughout the lung mckay. The findings and the impression was discussed with the patient. I attest to the documentation by the nurse practitioner. Time with Patient: Less than 30
[2018-06-22] MEDS: GABAPENTIN 100 MG PEG/G-TUBE SCH ×3 (08:23→22:09)
[2018-06-22] MEDS: ASPIRIN 81 MG PEG/G-TUBE SCH (08:34)
[2018-06-22] MEDS: metFORMIN 500 MG TAB PO SCH ×2 (08:34→16:45)
[2018-06-22] MEDS: METOPROLOL TARTRATE 50 MG TAB PEG/G-TUBE SCH ×2 (08:34→22:08)
[2018-06-22] MEDS: amLODIPine 5 MG TAB PEG/G-TUBE SCH (08:34)
[2018-06-22] MEDS: levETIRAcetam ORAL SOLN 500 MG/5 ML CUP PEG/G-TUBE SCH (08:34)
[2018-06-22] MEDS: FERROUS SULFATE ORAL ELIXIR 300 MG/5 ML CUP PO SCH (08:35)
[2018-06-22] MEDS: CITALOPRAM HYDROBROMIDE 10 MG TAB PO SCH (08:35)
[2018-06-22 09:03] LABS: Glucose,Whole Blood 145 mg/dL (75-99)
[2018-06-22 11:11] LABS: Glucose,Whole Blood 117 mg/dL (75-99)
[2018-06-22] MEDS: IPRATROPIUM-ALBUTEROL 3 ML NEB INHALATION SCH ×2 (11:36→20:33)
--- NOTE | 2018-06-22 11:58 | P.PN ---
Subjective Progress Note Date: 06/22/18 Principal diagnosis: Paroxysmal atrial fibrillation This is a pleasant 73-year-old female patient with an extensive past medical history. The patient currently is residing at the [facility]. She does have history of stroke in the past with residual left-sided paralysis, she does have dysphagia with PEG tube placement, chronic respiratory failure with tracheostomy tube, coronary artery disease and status post CABG, paroxysmal atrial fibrillation, hypertension, as well as permanent pacemaker implantation. The patient was brought to the emergency room a few days ago after she was found to have elevated temperature at the [facility]. With that she was also experiencing worsening shortness of breath. The initial impression was an aspiration pneumonia and pulmonary was consulted to see the patient and currently the patient is on antibiotic. We requested to see the patient for further evaluation of congestive heart failure. The patient stated that she was more short of breath. Beside that she has been experiencing cough. No symptoms of chest pain or chest discomfort. No worsening bilateral lower extremities edema. Please note that the patient overall is a poor historian. The chest x- ray revealed evidence of cardiomegaly with bibasilar airspace disease and small bilateral pleural effusion. She underwent an echocardiogram which revealed mildly impaired LV function was EF around 45% with mild MR and mild TR. On follow-up with the patient today, 06/22/2018, she denies any chest pain or chest discomfort. On examination, she is tachycardic with a heart rate around 120 beats per minutes. She is on metoprolol tartrate at 100 mg by mouth twice a day. I am going to add Cardizem at 30 mg by mouth 3 times a day to the current medical regimen and DC the [facility]. Objective - Vital Signs Vital signs: Vital Signs Temp 98.4 F 06/22/18 07:41 Pulse 108 H 06/22/18 11:39 Resp 18 06/22/18 08:35 BP 149/89 06/22/18 07:41 Pulse Ox 94 L 06/22/18 07:41 Intake & Output 06/21/18 06/22/18 06/22/18 18:59 06:59 18:59 Intake Total 37.438 28.183 12.267 Output Total 1050 500 500 Balance -1012.562 -471.817 -487.733 Weight 82.554 kg Intake: Intake, IV Titration 37.438 28.183 12.267 Amount Insulin Regular 100 unit 37.438 28.183 12.267 In Sodium Chloride 0.9% 100 ml @ Titrate IV .Q0M [facility] Rx#:[id number] Output: Urine 1050 500 500 Other: Voiding Method Diaper Diaper Diaper Incontinent Incontinent Incontinent - Constitutional General appearance: Present: no acute distress - Respiratory Respiratory: bilateral: rales - Cardiovascular Rhythm: irregularly irregular Heart sounds: normal: S1, S2 - Labs CBC & Chem 7: 06/22/18 06:41 06/22/18 06:41 Labs: Abnormal Lab Results - Last 24 Hours (Table) 06/21/18 06/21/18 06/21/18 Range/Units 13:49 15:32 17:54 WBC (3.8-10.6) k/uL Hgb (11.4-16.0) gm/dL MCH (25.0-35.0) pg MCHC (31.0-37.0) g/dL RDW (11.5-15.5) % Neutrophils # (1.3-7.7) k/uL PT (9.0-12.0) sec INR (<1.2) Sodium (137-145) mmol/L Chloride (98-107) mmol/L Carbon Dioxide (22-30) mmol/L BUN (7-17) mg/dL Creatinine (0.52-1.04) mg/dL Glucose (74-99) mg/dL POC Glucose (mg/dL) 208 H 228 H 203 H (75-99) mg/dL 06/21/18 06/21/18 06/21/18 Range/Units 19:36 21:39 23:29 WBC (3.8-10.6) k/uL Hgb (11.4-16.0) gm/dL MCH (25.0-35.0) pg MCHC (31.0-37.0) g/dL RDW (11.5-15.5) % Neutrophils # (1.3-7.7) k/uL PT (9.0-12.0) sec INR (<1.2) Sodium (137-145) mmol/L Chloride (98-107) mmol/L Carbon Dioxide (22-30) mmol/L BUN (7-17) mg/dL Creatinine (0.52-1.04) mg/dL Glucose (74-99) mg/dL POC Glucose (mg/dL) 181 H 208 H 153 H (75-99) mg/dL 06/22/18 06/22/18 06/22/18 Range/Units 01:30 02:47 05:02 WBC (3.8-10.6) k/uL Hgb (11.4-16.0) gm/dL MCH (25.0-35.0) pg MCHC (31.0-37.0) g/dL RDW (11.5-15.5) % Neutrophils # (1.3-7.7) k/uL PT (9.0-12.0) sec INR (<1.2) Sodium (137-145) mmol/L Chloride (98-107) mmol/L Carbon Dioxide (22-30) mmol/L BUN (7-17) mg/dL Creatinine (0.52-1.04) mg/dL Glucose (74-99) mg/dL POC Glucose (mg/dL) 121 H 145 H 185 H (75-99) mg/dL 06/22/18 06/22/18 06/22/18 Range/Units 06:41 06:41 06:41 WBC 14.2 H (3.8-10.6) k/uL Hgb 10.9 L (11.4-16.0) gm/dL MCH 24.0 L (25.0-35.0) pg MCHC 29.0 L (31.0-37.0) g/dL RDW 17.3 H (11.5-15.5) % Neutrophils # 11.7 H (1.3-7.7) k/uL PT 22.7 H (9.0-12.0) sec INR 2.3 H (<1.2) Sodium 148 H (137-145) mmol/L Chloride 109 H (98-107) mmol/L Carbon Dioxide 35 H (22-30) mmol/L BUN 31 H (7-17) mg/dL Creatinine 0.40 L (0.52-1.04) mg/dL Glucose 163 H (74-99) mg/dL POC Glucose (mg/dL) (75-99) mg/dL 06/22/18 06/22/18 06/22/18 Range/Units 07:02 09:01 11:09 WBC (3.8-10.6) k/uL Hgb (11.4-16.0) gm/dL MCH (25.0-35.0) pg MCHC (31.0-37.0) g/dL RDW (11.5-15.5) % Neutrophils # (1.3-7.7) k/uL PT (9.0-12.0) sec INR (<1.2) Sodium (137-145) mmol/L Chloride (98-107) mmol/L Carbon Dioxide (22-30) mmol/L BUN (7-17) mg/dL Creatinine (0.52-1.04) mg/dL Glucose (74-99) mg/dL POC Glucose (mg/dL) 159 H 145 H 117 H (75-99) mg/dL Microbiology - Last 24 Hours (Table) 06/15/18 14:42 Blood Culture - Final Blood No Growth after 144 hours Assessment and Plan Assessment: Assessment #1 acute hypoxic respiratory failure #2 possible aspiration pneumonia #3 history of stroke with left sided weakness #4 coronary artery disease and status post CABG #5 status post permanent pacemaker #6 mild cardiomyopathy with EF of 45% #7 paroxysmal atrial fibrillation #8 multiple comorbid conditions Plan #1 continue the current dose of metoprolol #2 add Cardizem to the current medical regimen
[2018-06-22 12:09] LABS: Glucose,Whole Blood 143 mg/dL (75-99)
[2018-06-22 13:20] LABS: Glucose,Whole Blood 140 mg/dL (75-99)
[2018-06-22 13:59] LABS: Glucose,Whole Blood 133 mg/dL (75-99)
[2018-06-22] MEDS: DILTIAZEM ORAL 30 MG TAB PO SCH ×2 (16:45→22:08)
[2018-06-22 16:48] LABS: Glucose,Whole Blood 176 mg/dL (75-99)
[2018-06-22] MEDS ORDERED: WARFARIN 7.5 MG TAB PO ONE (18:00)
--- NOTE | 2018-06-22 18:42 | PN ---
PROGRESS NOTE DATE OF SERVICE: 06/22/2018. REASON FOR FOLLOWUP: Aspiration pneumonia. INTERVAL HISTORY: The patient did have a low-grade fever of 99.5 axillary around midnight. The patient has been afebrile since then. The patient did answer some simple questions, mentioned she was doing okay. Not specifically for any chest pain, shortness of breath. No cough. No response. No nausea, vomiting or diarrhea reported by the nursing staff. PHYSICAL EXAMINATION: On examination, blood pressure is 149/89 with a pulse of 114, temperature 98.4. She is 94% on 4 L nasal cannula. General description is an elderly female, lying in bed in no distress. Respiratory system: Unlabored breathing with decreased breath sounds in the bases. No wheeze. Heart S1, S2. Regular rate and rhythm. Abdomen soft, no tenderness. Extremities: No edema of the feet. LABS: Hemoglobin 10.1, hematocrit 14.2 with a BUN of 31, creatinine 0.40. Blood cultures have been negative. Sputum has not been collected. DIAGNOSTIC IMPRESSION AND PLAN: Patient with fever with concern likely from aspiration pneumonia, component of Proteus mirabilis urinary tract infection. The patient is currently covered with Zosyn. Will try to obtain sputum to narrow down the antibiotics and strict aspiration precautions. Continue supportive care. MMODL / IJN: [id number] /
[2018-06-22 21:17] LABS: Glucose,Whole Blood 189 mg/dL (75-99)
[2018-06-22] MEDS: PRAVASTATIN SODIUM 40 MG TAB PO SCH (22:08)
[2018-06-22] MEDS: PANTOPRAZOLE SODIUM 40 MG GRANULE PKT PEG/G-TUBE SCH (22:09)
--- NOTE | 2018-06-22 22:12 | PN ---
PROGRESS NOTE DATE OF SERVICE: 06/22/2018 This 73-year-old woman who was admitted with aspiration pneumonia also had PEG tube feeds. The patient apparently on bolus feeds and residual more than 400 last night. Fluid bolus on hold, but subsequently continuous fluids started, which the patient apparently tolerated. Multiple consultants including Infectious Disease are following the patient closely. Past medical history and review of systems could not be taken, the patient is confused and barely responding to questions. The patient also has Proteus mirabilis in the cultures. PAST MEDICAL HISTORY: Reviewed. REVIEW OF SYSTEMS: Could not be taken. CURRENT MEDICATIONS ARE: Reviewed and include: 1. Tylenol 500 mg q.6h p.r.n. 2. DuoNeb q.i.d. p.r.n. 3. Aspirin 81 mg. 4. Celexa 10 mg daily. 5. Cardizem 30 mg t.i.d. 6. Iron sulfate 320 mg p.o. daily. 7. NovoLog. 8. Keppra. 9. Glucophage 500 mg b.i.d. 10.Lopressor. 11.Coumadin. 12.Protonix. 13.Zosyn 3.375 IV q.6h. PHYSICAL EXAM: Patient is alert and oriented x1. Pulse 69, blood pressure 115/60. Respiration 18, temp 97.2, pulse ox 94% on 4 L. HEENT: Conjunctivae normal. Oral mucosa moist. NECK is no jugular venous distention. No carotid bruit. No lymph node enlargement. CARDIOVASCULAR: S1, S2 muffled. RESPIRATORY : Breath sounds diminished in the bases. A few scattered rhonchi and crackles. ABDOMEN: Soft, nontender. PEG inspected in situ. LEGS are no edema, no swelling. CENTRAL NERVOUS SYSTEM: No focal deficits. LABS: WBC 14.2, creatinine is 2.2. Sodium 148. ASSESSMENT: 1. Acute bilateral aspiration pneumonia with possible sepsis with acute hypoxic respiratory failure with combination pneumonia and congestive heart failure. 2. Change in mental status possible acute on chronic metabolic encephalopathy. 3. Status post PEG tube feeds weaning. 4. Bilateral pulmonary edema from fluid. 5. Congestive heart failure, acute exacerbation, acute on chronic systolic dysfunction, ejection fraction 45%. 6. Combination of systolic and diastolic dysfunction. 7. Acute urinary tract infection from cystitis and Proteus mirabilis. 8. Chronic dysphagia, patient is n.p.o. with the PEG tube feeds. 9. Paroxysmal atrial fibrillation flutter, currently in sinus rhythm. 10.Coumadin toxicity. No evidence of bleeding. 11.Severe cognitive impairment, of underlying dementia. 12.Diabetes mellitus type 2, uncontrolled with hyperglycemia. 13.Gastroesophageal reflux disease. 14.Hypertension. 15.Hyperlipidemia. 16.Chronic medical debility. 17.Incontinence. 18.FULL CODE. RECOMMENDATIONS AND DISCUSSION: I recommend to continue current medications, management and symptomatic treatment. Repeat labs. The patient appears to be tolerating continuous tube feeds rather than bolus feeds. Otherwise, continue to monitor. Resume the medications. Also recommend repeat labs and the most recent chest x-ray was reviewed personally by me. I would also recommend free fluid water flushes, increase frequency of water flushes. We will discuss with staff. Further recommendations to follow. REDDY / NIMISHA: [id number] /
[2018-06-23] MEDS: PIPERACILLIN-TAZOBACTAM 3.375 GM in SODIUM CHLORIDE 0.9% 100 ML IVPB SCH ×3 (00:01→22:08)
[2018-06-23 06:54] LABS: Glucose,Whole Blood 277 mg/dL (75-99)
[2018-06-23] MEDS: GABAPENTIN 100 MG PEG/G-TUBE SCH ×3 (07:50→22:08)
[2018-06-23] MEDS: INSULIN ASPART (NovoLOG) 100 UNIT/ML VIAL SQ SCH ×4 (07:53→22:07)
[2018-06-23] MEDS: ASPIRIN 81 MG PEG/G-TUBE SCH (07:53)
[2018-06-23] MEDS: metFORMIN 500 MG TAB PO SCH ×2 (07:53→16:56)
[2018-06-23] MEDS: METOPROLOL TARTRATE 50 MG TAB PEG/G-TUBE SCH ×2 (07:54→19:52)
[2018-06-23] MEDS: levETIRAcetam ORAL SOLN 500 MG/5 ML CUP PEG/G-TUBE SCH (07:54)
[2018-06-23] MEDS: DILTIAZEM ORAL 30 MG TAB PO SCH ×3 (07:54→22:08)
[2018-06-23] MEDS: CITALOPRAM HYDROBROMIDE 10 MG TAB PO SCH (07:54)
--- NOTE | 2018-06-23 08:09 | XR ---
EXAMINATION TYPE: XR chest 1V portable DATE OF EXAM: 06/23/2018 COMPARISON: 06/21/2018 HISTORY: Shortness of breath TECHNIQUE: Single frontal view of the chest is obtained. FINDINGS: Postsurgical changes with bilateral consolidation and pleural effusion. Interstitial patte rn noted. Surgical clips in the left chest. Cardiac device noted. Diffuse osteopenia with arthropathy shoulders. No pneumothorax. IMPRESSION: 1. Stable bilateral consolidation small effusion correlate for CHF otherwise consider pneumonia.
[2018-06-23] MEDS: IPRATROPIUM-ALBUTEROL 3 ML NEB INHALATION SCH ×3 (09:17→21:20)
[2018-06-23 10:50] LABS: INR 1.9 (<1.2)
[2018-06-23 10:55] LABS: Anion Gap 6 mmol/L; Blood Urea Nitrogen 31 mg/dL (7-17); Calcium 9.5 mg/dL (8.4-10.2); Carbon Dioxide 31 mmol/L (22-30); Chloride 108 mmol/L (98-107); Glucose 262 mg/dL (74-99); Potassium 4.5 mmol/L (3.5-5.1); Sodium 145 mmol/L (137-145)
[2018-06-23 11:22] LABS: Glucose,Whole Blood 220 mg/dL (75-99)
[2018-06-23 11:29] LABS: Anisocytosis Slight; Basophils # (A) 0.1 k/uL (0-0.2); Basophils % (A) 0 %; Eosinophils # (A) 0.1 k/uL (0-0.7); Eosinophils % (A) 0 %; HGB 11.2 gm/dL (11.4-16.0); Hypochromasia Marked; Lymphocytes # (A) 1.4 k/uL (1.0-4.8); Lymphocytes % (A) 9 %; MCH 24.2 pg (25.0-35.0); MCHC 28.7 g/dL (31.0-37.0); MCV 84.2 fL (80.0-100.0); Mean Platelet Volume 8.3; Monocytes # (A) 0.7 k/uL (0-1.0); Monocytes % (A) 5 %; Neutrophils # (A) 13.6 k/uL (1.3-7.7); Neutrophils % (A) 85 %; Platelet Count 367 k/uL (150-450); RBC 4.63 m/uL (3.80-5.40); RDW 17.5 % (11.5-15.5)
[2018-06-23] MEDS: FERROUS SULFATE ORAL ELIXIR 300 MG/5 ML CUP PO SCH (11:56)
--- NOTE | 2018-06-23 12:16 | P.PN ---
Subjective Progress Note Date: 06/23/18 As is a 73-year-old female patient who resides in extended care facility. She has a history of CVA with left-sided paralysis, dysphagia with PEG tube placement, hyperlipidemia, seizures, hypertension, atrial fibrillation anticoagulated with warfarin, permanent pacemaker implantation, diabetes mellitus, GI bleed, dementia. She was brought here to the emergency room on 06/15/2018 after developing fevers and apparent shortness of breath. We're consulted yesterday for concerns regarding aspiration pneumonia. Chest x-ray shows evidence of cardiomegaly, bibasilar airspace disease, small bilateral effusions. She did have a temp of 99.9 earlier this morning currently 98.4. She is on 4 L high flow nasal cannula and maintaining good O2 saturations in the mid 90s. Somewhat tachycardic. Urine culture was positive for Proteus mirabilis. Blood culture reveals no growth. White count 15.7. Hemoglobin 11.2. INR 3.0. Sodium 146. Creatinine 0.39. ProBNP 2030. She is currently on Zosyn. Insulin drip at 3 units per hour. On 06/22/2017 patient seen in follow-up on medical surgical floor. She is awake and alert, she is in bed, with head of the bed up 45. She denies any acute distress, denies any difficulty breathing, does have a congested cough, nonproductive. Lung sounds are diminished to auscultation. No complex chest pain, no fever or chills, T-max in last 24 hours was 99.9F, patient remains on supplemental oxygen to 4 L with a pulse ox of 94-95%. She is awake, oriented 2, to person and place, she is able to make her needs known, she is tolerating her tube feedings, lab work today was reviewed, 1 red cell, is 14.2, hemoglobin is 10.9, INR is 2.3, sodium is 148, potassium 3.8, chloride is 109, CO2 35, B1 is 31 and creatinine 0.40. She is on Zosyn for aspiration pneumonia and Proteus mirabilis urinary tract infection. On 06/23/2018 patient seen in follow-up on medical surgical floor. She is calm and comfortable, in no acute distress, stating in bed, on supplemental oxygen, currently at 4 L, with pulse ox of 94%, no fever or chills, patient's tube feedings have been switched to continuous tube feedings, with 100 mL every 4 hours free water flushes, and today's labs showed white blood cell count is 16.0, hemoglobin of 11.2, INR of 1.9, potassium of 4.5, sodium is 145, chloride is 108, CO2 was 31, B1 is 31 creatinine is 0.38. She is being treated for Proteus mirabilis urinary tract infection and bilateral pneumonia suspected to be related to aspiration and currently on Zosyn. Patient does not verbalize much, but she states not having any distress, she's been afebrile, lung sounds are diminished, patient has a congested cough, and at times it is strong and effective, but at times it is weak. Overall patient is stable, no issues overnight, ID service is following. Follow-up chest x-ray today shows stable bilateral consolidation with small effusions. Objective - Vital Signs Vital signs: Vital Signs Temp 98.4 F 06/23/18 07:45 Pulse 88 06/23/18 09:30 Resp 16 06/23/18 00:51 BP 149/76 06/23/18 07:45 Pulse Ox 93 L 06/23/18 07:45 Intake & Output 06/22/18 06/23/18 06/23/18 18:59 06:59 18:59 Intake Total 223.267 Output Total 700 500 Balance -476.733 -500 Weight 82.554 kg Intake: Intake, IV Titration 12.267 Amount Insulin Regular 100 unit 12.267 In Sodium Chloride 0.9% 100 ml @ Titrate IV .Q0M [facility] Rx#:[id number] Tube Feeding 211 Output: Urine 700 500 Other: Voiding Method Diaper Diaper Diaper Incontinent Incontinent Incontinent - Exam GENERAL EXAM: Alert, pleasant, 73-year-old white female on 4 L of oxygen, with a pulse ox of 94-95%, patient has left-sided hemiparesis, patient has generalized swelling in upper and lower extremities. comfortable in no apparent distress. HEAD: Normocephalic/atraumatic. EYES: Normal reaction of pupils, equal size. Conjunctiva pink, sclera white. NOSE: Clear with pink turbinates. THROAT: No erythema or exudates. NECK: No masses, no JVD, no thyroid enlargement, no adenopathy. CHEST: No chest wall deformity. Symmetrical expansion. LUNGS: Equal air entry with no crackles, wheeze, rhonchi or dullness. Congested cough, nonproductive. CVS: Regular rate and rhythm, normal S1 and S2, no gallops, no murmurs, no rubs ABDOMEN: Soft, nontender. No hepatosplenomegaly, normal bowel sounds, no guarding or rigidity. EXTREMITIES: No clubbing, upper and lower extremity edema, no cyanosis, 2+ pulses and upper and lower extremities. MUSCULOSKELETAL: Muscle strength and tone normal. SPINE: No scoliosis or deformity SKIN: No rashes CENTRAL NERVOUS SYSTEM: Alert and oriented -2. No focal deficits, tone is normal in all 4 extremities. PSYCHIATRIC: Alert and oriented -2. Appropriate affect. Intact judgment and insight. - Labs CBC & Chem 7: 06/23/18 07:35 06/23/18 07:35 Labs: Abnormal Lab Results - Last 24 Hours (Table) 06/22/18 06/22/18 06/22/18 Range/Units 12:07 13:18 13:57 WBC (3.8-10.6) k/uL Hgb (11.4-16.0) gm/dL MCH (25.0-35.0) pg MCHC (31.0-37.0) g/dL RDW (11.5-15.5) % Neutrophils # (1.3-7.7) k/uL PT (9.0-12.0) sec INR (<1.2) Chloride (98-107) mmol/L Carbon Dioxide (22-30) mmol/L BUN (7-17) mg/dL Creatinine (0.52-1.04) mg/dL Glucose (74-99) mg/dL POC Glucose (mg/dL) 143 H 140 H 133 H (75-99) mg/dL 06/22/18 06/22/18 06/23/18 Range/Units 16:46 21:15 06:53 WBC (3.8-10.6) k/uL Hgb (11.4-16.0) gm/dL MCH (25.0-35.0) pg MCHC (31.0-37.0) g/dL RDW (11.5-15.5) % Neutrophils # (1.3-7.7) k/uL PT (9.0-12.0) sec INR (<1.2) Chloride (98-107) mmol/L Carbon Dioxide (22-30) mmol/L BUN (7-17) mg/dL Creatinine (0.52-1.04) mg/dL Glucose (74-99) mg/dL POC Glucose (mg/dL) 176 H 189 H 277 H (75-99) mg/dL 06/23/18 06/23/18 06/23/18 Range/Units 07:35 07:35 07:35 WBC 16.0 H (3.8-10.6) k/uL Hgb 11.2 L (11.4-16.0) gm/dL MCH 24.2 L (25.0-35.0) pg MCHC 28.7 L (31.0-37.0) g/dL RDW 17.5 H (11.5-15.5) % Neutrophils # 13.6 H (1.3-7.7) k/uL PT 19.0 H (9.0-12.0) sec INR 1.9 H (<1.2) Chloride 108 H (98-107) mmol/L Carbon Dioxide 31 H (22-30) mmol/L BUN 31 H (7-17) mg/dL Creatinine 0.38 L (0.52-1.04) mg/dL Glucose 262 H (74-99) mg/dL POC Glucose (mg/dL) (75-99) mg/dL 06/23/18 Range/Units 11:21 WBC (3.8-10.6) k/uL Hgb (11.4-16.0) gm/dL MCH (25.0-35.0) pg MCHC (31.0-37.0) g/dL RDW (11.5-15.5) % Neutrophils # (1.3-7.7) k/uL PT (9.0-12.0) sec INR (<1.2) Chloride (98-107) mmol/L Carbon Dioxide (22-30) mmol/L BUN (7-17) mg/dL Creatinine (0.52-1.04) mg/dL Glucose (74-99) mg/dL POC Glucose (mg/dL) 220 H (75-99) mg/dL Assessment and Plan Plan: Assessment: #1 Acute hypoxic respiratory failure secondary to an acute bilateral aspiration pneumonia in a patient with a history of aspiration and PEG tube feedings. #2 History of CVA with left-sided weakness and dysphagia requiring PEG tube placement. #3 Underlying dementia with cognitive impairment. #4 Atrial fibrillation, anticoagulated with warfarin. Permanent pacemaker in place. #5 Hypertension. #6 Hyperlipidemia. #7 Diabetes mellitus. #8 Gastroesophageal reflux disease. #9 Poor overall functional performance based on the above-mentioned multiple comorbidities. Plan: Today's chest x-ray has been reviewed with Dr. Cho, shows pleural effusions, pulmonary vascular congestion, just compatible with congestive heart failure, we'll start patient on IV diuretics, 40 mg every 12 hours, repeat BNP level, repeat chest x-ray in the morning. I performed a history & physical examination of the patient and discussed their management with my nurse practitioner, Doreen Tineo. I reviewed the nurse practitioner's note and agree with the documented findings and plan of care. Lung sounds are positive for diminished breath sounds throughout the lung mckay. The findings and the impression was discussed with the patient. I attest to the documentation by the nurse practitioner. Time with Patient: Less than 30
--- NOTE | 2018-06-23 14:52 | PN ---
PROGRESS NOTE DATE OF SERVICE: 06/23/2018. REASON FOR FOLLOWUP: An aspiration pneumonia and Proteus UTI. INTERVAL HISTORY: The patient is currently afebrile. The patient is sleepy, lethargic, unable to provide any history. No nausea, vomiting or diarrhea. PHYSICAL EXAMINATION: Blood pressure 149/77, pulse of 113, temperature 98.4, she is 93% on 4 L nasal cannula. General description is an elderly female, lying in bed in no distress. RESPIRATORY SYSTEM: Unlabored breathing with decreased breath sounds at the bases, no wheeze. HEART: S1, S2. Regular rate and rhythm. ABDOMEN: Soft, no tenderness. LABS: Chest x-ray showing bilateral basilar consolidation representing pneumonia. DIAGNOSTIC IMPRESSION AND PLAN: Patient admitted to the hospital with fever, source likely combination of aspiration pneumonia and UTI. Antibiotics in from of Zosyn to continue, transition to oral antibiotic on discharge. Continue supportive care. MMODL / IJN: [id number] /
[2018-06-23 16:47] LABS: Glucose,Whole Blood 208 mg/dL (75-99)
[2018-06-23] MEDS ORDERED: WARFARIN 10 MG TAB PO ONE (18:00)
[2018-06-23 20:21] LABS: Glucose,Whole Blood 186 mg/dL (75-99)
[2018-06-23] MEDS: FUROSEMIDE 10 MG/ML 4 ML VIAL IV SCH (22:07)
[2018-06-23] MEDS: PANTOPRAZOLE SODIUM 40 MG GRANULE PKT PEG/G-TUBE SCH (22:07)
[2018-06-23] MEDS: PRAVASTATIN SODIUM 40 MG TAB PO SCH (22:08)
--- NOTE | 2018-06-23 22:13 | PN ---
PROGRESS NOTE DATE OF SERVICE: 06/23/2018 This 73-year-old woman who was admitted with acute bilateral aspiration pneumonia with possible sepsis and acute hypoxic respiratory failure with a combination of pneumonia and CHF is being closely monitored. No chest pain or palpitations. No fever. On exam, alert and oriented . Pulse 102, blood pressure 137/81, respiration 20, temperature 98.6, pulse ox 96% on room air. HEENT: Conjunctivae normal. NECK: No jugular venous distention. CARDIOVASCULAR SYSTEM: S1, S2 muffled. RESPIRATORY SYSTEM: Breath sounds diminished at the bases. Bilateral scattered rhonchi and crackles. ABDOMEN: Soft, non-tender. LEGS: No edema. No swelling. NERVOUS SYSTEM: No focal deficit. LABS: WBC 16, hemoglobin 11.2, sodium 140, potassium 4.5. ASSESSMENT: 1. Acute bilateral aspiration pneumonia with possible sepsis with acute hypoxic respiratory failure with a combination of pneumonia and congestive heart failure. 2. Change in mental status, possibly acute on chronic metabolic encephalopathy. 3. Status post PEG tube feeds. 4. Bilateral pulmonary edema from fluid overload. 5. Congestive heart failure, acute exacerbation, with acute on chronic systolic dysfunction, ejection fraction 45%. 6. Combination of systolic and diastolic dysfunction. 7. Acute urinary tract infection with cystitis and Proteus mirabilis. 8. Chronic dysphagia. Patient is n.p.o. and on PEG tube currently. 9. Paroxysmal atrial fibrillation/flutter, currently in normal sinus rhythm. 10.Coumadin toxicity. No evidence of bleeding. 11.Severe cognitive impairment due to underlying dementia. 12.Diabetes mellitus, type 2, uncontrolled with hyperglycemia. 13.Gastroesophageal reflux disease. 14.Hypertension. 15.Hyperlipidemia. 16.Chronic medical debility. 17.Incontinence. 18.Multiple medical issues and problems with residual fluids and multiple lung lesions because of aspiration pneumonias. 19.FULL CODE. RECOMMENDATIONS AND DISCUSSION: I recommend to continue current medications, continue the monitoring, symptomatic treatment. Otherwise at this time we will monitor the patient closely. Patient to continue with the bronchodilators and broad-spectrum IV antibiotics at this time. The patient probably will need ECF rehab because of multiple complex medical issues. Discussed with Further recommendations to follow. MMODL / IJN: [id number] / MTDD
[2018-06-24] MEDS: PIPERACILLIN-TAZOBACTAM 3.375 GM in SODIUM CHLORIDE 0.9% 100 ML IVPB SCH ×3 (05:00→21:49)
[2018-06-24 07:11] LABS: Glucose,Whole Blood 218 mg/dL (75-99)
[2018-06-24 07:51] LABS: Anisocytosis Slight; Basophils # (A) 0.1 k/uL (0-0.2); Basophils % (A) 1 %; Eosinophils # (A) 0.5 k/uL (0-0.7); Eosinophils % (A) 4 %; HCT 38.7 % (34.0-46.0); HGB 11.5 gm/dL (11.4-16.0); Hypochromasia Marked; Lymphocytes # (A) 1.8 k/uL (1.0-4.8); Lymphocytes % (A) 12 %; MCH 24.8 pg (25.0-35.0); MCHC 29.8 g/dL (31.0-37.0); MCV 83.4 fL (80.0-100.0); Mean Platelet Volume 8.3; Monocytes # (A) 0.6 k/uL (0-1.0); Monocytes % (A) 4 %; Neutrophils # (A) 11.7 k/uL (1.3-7.7); Neutrophils % (A) 79 %; Platelet Count 311 k/uL (150-450); RBC 4.64 m/uL (3.80-5.40); RDW 16.9 % (11.5-15.5); WBC 14.8 k/uL (3.8-10.6)
[2018-06-24 07:52] LABS: Anion Gap 5 mmol/L; Blood Urea Nitrogen 28 mg/dL (7-17); Calcium 9.5 mg/dL (8.4-10.2); Carbon Dioxide 33 mmol/L (22-30); Chloride 107 mmol/L (98-107); Glucose 203 mg/dL (74-99); Potassium 3.8 mmol/L (3.5-5.1); Sodium 145 mmol/L (137-145)
[2018-06-24 07:58] LABS: INR 2.4 (<1.2); Prothrombin Time 23.5 sec (9.0-12.0)
[2018-06-24] MEDS: GABAPENTIN 100 MG PEG/G-TUBE SCH ×3 (08:04→21:47)
[2018-06-24] MEDS: FUROSEMIDE 10 MG/ML 4 ML VIAL IV SCH ×2 (08:09→20:34)
[2018-06-24] MEDS: ASPIRIN 81 MG PEG/G-TUBE SCH (08:09)
[2018-06-24] MEDS: METOPROLOL TARTRATE 50 MG TAB PEG/G-TUBE SCH ×2 (08:09→20:34)
[2018-06-24] MEDS: metFORMIN 500 MG TAB PO SCH ×2 (08:09→17:41)
[2018-06-24] MEDS: INSULIN ASPART (NovoLOG) 100 UNIT/ML VIAL SQ SCH ×4 (08:09→20:34)
[2018-06-24] MEDS: CITALOPRAM HYDROBROMIDE 10 MG TAB PO SCH (08:09)
[2018-06-24] MEDS: DILTIAZEM ORAL 30 MG TAB PO SCH ×3 (08:09→21:49)
--- NOTE | 2018-06-24 08:09 | XR ---
EXAMINATION TYPE: XR chest 1V portable DATE OF EXAM: 06/24/2018 COMPARISON: Prior chest x-ray 06/23/2018 HISTORY: Congestive heart failure TECHNIQUE: Single frontal view of the chest is obtained. FINDINGS: Patient is post median sternotomy and rotated. There is a generator in the right pectoral region with leads in the right atrium and ventricle. Surgical clips present in left breast. No eviden t pneumothorax. The left hemidiaphragm is obscured, questionable blunting the right costophrenic angl e. There is overlying tubing. Aorta is dense. Heart is enlarged and stable. Arthropathy noted in the shoulders. IMPRESSION: Findings are similar to prior exam. There may be some interval improvement in the volume status and aeration, interstitium. Possible left lower lobe atelectasis versus pneumonia, follow-up PA and lateral chest x-ray suggested.
[2018-06-24] MEDS: levETIRAcetam ORAL SOLN 500 MG/5 ML CUP PEG/G-TUBE SCH (08:10)
[2018-06-24] MEDS: IPRATROPIUM-ALBUTEROL 3 ML NEB INHALATION SCH ×3 (09:13→19:26)
--- NOTE | 2018-06-24 11:35 | P.PN ---
Subjective Progress Note Date: 06/24/18 Principal diagnosis: Acute hypoxic respiratory failure secondary to an acute bilateral aspiration pneumonia in a patient with history of aspiration and PEG tube feedings As is a 73-year-old female patient who resides in extended care facility. She has a history of CVA with left-sided paralysis, dysphagia with PEG tube placement, hyperlipidemia, seizures, hypertension, atrial fibrillation anticoagulated with warfarin, permanent pacemaker implantation, diabetes mellitus, GI bleed, dementia. She was brought here to the emergency room on 06/15/2018 after developing fevers and apparent shortness of breath. We're consulted yesterday for concerns regarding aspiration pneumonia. Chest x-ray shows evidence of cardiomegaly, bibasilar airspace disease, small bilateral effusions. She did have a temp of 99.9 earlier this morning currently 98.4. She is on 4 L high flow nasal cannula and maintaining good O2 saturations in the mid 90s. Somewhat tachycardic. Urine culture was positive for Proteus mirabilis. Blood culture reveals no growth. White count 15.7. Hemoglobin 11.2. INR 3.0. Sodium 146. Creatinine 0.39. ProBNP 2030. She is currently on Zosyn. Insulin drip at 3 units per hour. On 06/22/2017 patient seen in follow-up on medical surgical floor. She is awake and alert, she is in bed, with head of the bed up 45. She denies any acute distress, denies any difficulty breathing, does have a congested cough, nonproductive. Lung sounds are diminished to auscultation. No complex chest pain, no fever or chills, T-max in last 24 hours was 99.9F, patient remains on supplemental oxygen to 4 L with a pulse ox of 94-95%. She is awake, oriented 2, to person and place, she is able to make her needs known, she is tolerating her tube feedings, lab work today was reviewed, 1 red cell, is 14.2, hemoglobin is 10.9, INR is 2.3, sodium is 148, potassium 3.8, chloride is 109, CO2 35, B1 is 31 and creatinine 0.40. She is on Zosyn for aspiration pneumonia and Proteus mirabilis urinary tract infection. On 06/23/2018 patient seen in follow-up on medical surgical floor. She is calm and comfortable, in no acute distress, stating in bed, on supplemental oxygen, currently at 4 L, with pulse ox of 94%, no fever or chills, patient's tube feedings have been switched to continuous tube feedings, with 100 mL every 4 hours free water flushes, and today's labs showed white blood cell count is 16.0, hemoglobin of 11.2, INR of 1.9, potassium of 4.5, sodium is 145, chloride is 108, CO2 was 31, B1 is 31 creatinine is 0.38. She is being treated for Proteus mirabilis urinary tract infection and bilateral pneumonia suspected to be related to aspiration and currently on Zosyn. Patient does not verbalize much, but she states not having any distress, she's been afebrile, lung sounds are diminished, patient has a congested cough, and at times it is strong and effective, but at times it is weak. Overall patient is stable, no issues overnight, ID service is following. Follow-up chest x-ray today shows stable bilateral consolidation with small effusions. The patient is seen today 06/24/2018 in follow-up on the regular medical floor. She is currently awake and alert. No acute distress. In taking good O2 saturations up to 100% on 4 L/m per nasal cannula. She's afebrile. Hemodynamically stable. Urine culture positive for Proteus mirabilis. Blood cultures reveal no growth. White count 14.8. Hemoglobin 11.5. INR 2.4. Creatinine 0.38. His x-ray shows improvement in the volume status in aeration. Possible left lower lobe atelectasis versus pneumonia. She diuresed well from the initiation of IV Lasix. Remains on Zosyn. Objective - Vital Signs Vital signs: Vital Signs Temp 97.8 F 06/24/18 08:20 Pulse 112 H 06/24/18 09:28 Resp 18 06/24/18 08:20 BP 157/88 06/24/18 08:20 Pulse Ox 100 06/24/18 08:20 Intake & Output 06/23/18 06/24/18 06/24/18 18:59 06:59 18:59 Intake Total 0 780 210 Balance 0 780 210 Weight 81.5 kg Intake: Intake, IV Titration 100 Amount Piperacillin-Tazobactam 3 100 .375 gm In Sodium Chloride 0.9% 100 ml @ 25 mls/hr IVPB Q8H [facility] Rx#: [id number] Oral 0 Tube Feeding 680 210 Other: Voiding Method Diaper Diaper Diaper Incontinent Incontinent Incontinent # Voids 2 - Exam GENERAL EXAM: Alert, pleasant, 73-year-old white female on 4 L of oxygen, with a pulse ox of 100%, patient has left-sided hemiparesis, patient has generalized swelling in upper and lower extremities. HEAD: Normocephalic/atraumatic. EYES: Normal reaction of pupils, equal size. Conjunctiva pink, sclera white. NOSE: Clear with pink turbinates. THROAT: No erythema or exudates. NECK: No masses, no JVD, no thyroid enlargement, no adenopathy. CHEST: No chest wall deformity. Symmetrical expansion. LUNGS: Equal air entry with no crackles, wheeze, rhonchi or dullness. Congested cough, nonproductive. CVS: Regular rate and rhythm, normal S1 and S2, no gallops, no murmurs, no rubs ABDOMEN: PEG tube exit site clean and dry. Soft, nontender. No hepatosplenomegaly, normal bowel sounds, no guarding or rigidity. EXTREMITIES: No clubbing, upper and lower extremity edema, no cyanosis, 2+ pulses and upper and lower extremities. MUSCULOSKELETAL: Muscle strength and tone normal. SPINE: No scoliosis or deformity SKIN: No rashes CENTRAL NERVOUS SYSTEM: No focal deficits, tone is normal in all 4 extremities. PSYCHIATRIC: Alert and oriented -2. Appropriate affect. Intact judgment and insight. - Labs CBC & Chem 7: 06/24/18 06:38 06/24/18 06:38 Labs: Abnormal Lab Results - Last 24 Hours (Table) 06/23/18 06/23/18 06/23/18 Range/Units 07:35 16:45 20:18 WBC 16.0 H (3.8-10.6) k/uL Hgb 11.2 L (11.4-16.0) gm/dL MCH 24.2 L (25.0-35.0) pg MCHC 28.7 L (31.0-37.0) g/dL RDW 17.5 H (11.5-15.5) % Neutrophils # 13.6 H (1.3-7.7) k/uL PT (9.0-12.0) sec INR (<1.2) Carbon Dioxide (22-30) mmol/L BUN (7-17) mg/dL Creatinine (0.52-1.04) mg/dL Glucose (74-99) mg/dL POC Glucose (mg/dL) 208 H 186 H (75-99) mg/dL 06/24/18 06/24/18 06/24/18 Range/Units 06:38 06:38 06:38 WBC 14.8 H (3.8-10.6) k/uL Hgb (11.4-16.0) gm/dL MCH 24.8 L (25.0-35.0) pg MCHC 29.8 L (31.0-37.0) g/dL RDW 16.9 H (11.5-15.5) % Neutrophils # 11.7 H (1.3-7.7) k/uL PT 23.5 H (9.0-12.0) sec INR 2.4 H (<1.2) Carbon Dioxide 33 H (22-30) mmol/L BUN 28 H (7-17) mg/dL Creatinine 0.38 L (0.52-1.04) mg/dL Glucose 203 H (74-99) mg/dL POC Glucose (mg/dL) (75-99) mg/dL 06/24/18 Range/Units 07:10 WBC (3.8-10.6) k/uL Hgb (11.4-16.0) gm/dL MCH (25.0-35.0) pg MCHC (31.0-37.0) g/dL RDW (11.5-15.5) % Neutrophils # (1.3-7.7) k/uL PT (9.0-12.0) sec INR (<1.2) Carbon Dioxide (22-30) mmol/L BUN (7-17) mg/dL Creatinine (0.52-1.04) mg/dL Glucose (74-99) mg/dL POC Glucose (mg/dL) 218 H (75-99) mg/dL Assessment and Plan Assessment: Impression: #1 Acute hypoxic respiratory failure secondary to an acute bilateral aspiration pneumonia in a patient with a history of aspiration and PEG tube feedings. #2 History of CVA with left-sided weakness and dysphagia requiring PEG tube placement. #3 Underlying dementia with cognitive impairment. #4 Atrial fibrillation, anticoagulated with warfarin. Permanent pacemaker in place. #5 Hypertension. #6 Hyperlipidemia. #7 Diabetes mellitus. #8 Gastroesophageal reflux disease. #9 Poor overall functional performance based on the above-mentioned multiple comorbidities. Plan: The patient was seen and evaluated by Dr. Cho. Chest x-ray and labs reviewed. She is improved post diuretics. We'll continue another 24 hours. We'll contin ue with IV Zosyn. Strict aspiration precautions. We'll continue to follow and make further recommendations based on her clinical status. I, the cosigning physician, performed a history & physical examination of the patient. Lungs sounds with crackles in the bilateral posterior bases. Maintaining good O2 saturations in the upper 90s on 4 L high flow nasal cannula. I discussed the assessment and plan of care with my nurse practitioner, Colleen Mckay. I attest to the above note as dictated by her.
[2018-06-24 11:45] LABS: Glucose,Whole Blood 181 mg/dL (75-99)
[2018-06-24] MEDS: FERROUS SULFATE ORAL ELIXIR 300 MG/5 ML CUP PO SCH (11:52)
[2018-06-24 17:16] LABS: Glucose,Whole Blood 193 mg/dL (75-99)
[2018-06-24] MEDS ORDERED: WARFARIN 7.5 MG TAB PO ONE (18:00)
[2018-06-24 19:32] LABS: Glucose,Whole Blood 217 mg/dL (75-99)
[2018-06-24] MEDS: PANTOPRAZOLE SODIUM 40 MG GRANULE PKT PEG/G-TUBE SCH (20:34)
[2018-06-24] MEDS: PRAVASTATIN SODIUM 40 MG TAB PO SCH (20:34)
--- NOTE | 2018-06-24 22:21 | PN ---
PROGRESS NOTE DATE OF SERVICE: 06/24/2018. REASON FOR FOLLOWUP: Aspiration pneumonia and UTI. INTERVAL HISTORY: The patient is currently afebrile. The patient has been more awake, alert. She has been breathing comfortably. Complaining of some epigastric discomfort and though has been tolerating her tube feeds. No diarrhea reported by the nursing staff. PHYSICAL EXAMINATION: Blood pressure 136/83 with a pulse of 70. Temperature 98.8. She is 99% on 3 L high- flow oxygen. General description is an elderly female, lying in bed in no distress. Respiratory system: Unlabored breathing. Clear to auscultation anteriorly. Heart S1, S2. Regular rate and rhythm. Abdomen soft, no tenderness. LABS: Hemoglobin is 11.5, white count 14.2, BUN of 28, creatinine 0.38. DIAGNOSTIC IMPRESSION AND PLAN: Patient admitted to the hospital with fever with concern for possible aspiration pneumonia and also with evidence of a Proteus urinary tract infection. The patient did have a repeat x-ray showing left lower lobe atelectasis versus pneumonia. The patient is currently covered with Zosyn, hopefully to transition to oral antibiotic on discharge once her clinical condition improves. Continue supportive care. Family present at the bedside. Questions were answered. MMODL / IJN: [id number] /
[2018-06-25] MEDS: PIPERACILLIN-TAZOBACTAM 3.375 GM in SODIUM CHLORIDE 0.9% 100 ML IVPB SCH (05:45)
[2018-06-25 07:24] LABS: Glucose,Whole Blood 227 mg/dL (75-99)
[2018-06-25] MEDS: IPRATROPIUM-ALBUTEROL 3 ML NEB INHALATION SCH ×2 (07:58→12:33)
[2018-06-25 08:52] VITALS: BP 136/76; RESP 18; TEMP 98.5
[2018-06-25] MEDS: INSULIN ASPART (NovoLOG) 100 UNIT/ML VIAL SQ SCH ×2 (08:52→13:36)
[2018-06-25] MEDS: FUROSEMIDE 10 MG/ML 4 ML VIAL IV SCH (08:54)
[2018-06-25] MEDS: ASPIRIN 81 MG PEG/G-TUBE SCH (08:54)
[2018-06-25] MEDS: metFORMIN 500 MG TAB PO SCH (08:54)
[2018-06-25] MEDS: METOPROLOL TARTRATE 50 MG TAB PEG/G-TUBE SCH (08:54)
[2018-06-25] MEDS: DILTIAZEM ORAL 30 MG TAB PO SCH (08:54)
[2018-06-25] MEDS: CITALOPRAM HYDROBROMIDE 10 MG TAB PO SCH (08:55)
[2018-06-25] MEDS: levETIRAcetam ORAL SOLN 500 MG/5 ML CUP PEG/G-TUBE SCH (08:55)
[2018-06-25] MEDS: FERROUS SULFATE ORAL ELIXIR 300 MG/5 ML CUP PO SCH (08:59)
[2018-06-25 09:57] LABS: Anisocytosis Slight; Basophils # (A) 0.1 k/uL (0-0.2); Basophils % (A) 0 %; Eosinophils # (A) 0.4 k/uL (0-0.7); Eosinophils % (A) 2 %; HCT 39.3 % (34.0-46.0); HGB 11.5 gm/dL (11.4-16.0); Hypochromasia Marked; Lymphocytes # (A) 1.9 k/uL (1.0-4.8); Lymphocytes % (A) 12 %; MCH 23.9 pg (25.0-35.0); MCHC 29.2 g/dL (31.0-37.0); MCV 81.6 fL (80.0-100.0); Monocytes # (A) 0.6 k/uL (0-1.0); Monocytes % (A) 4 %; Neutrophils # (A) 13.2 k/uL (1.3-7.7); Neutrophils % (A) 81 %; Platelet Count 310 k/uL (150-450); RBC 4.82 m/uL (3.80-5.40); RDW 17.6 % (11.5-15.5); WBC 16.3 k/uL (3.8-10.6)
[2018-06-25 10:05] LABS: INR 2.8 (<1.2); Prothrombin Time 27.1 sec (9.0-12.0)
[2018-06-25 10:07] LABS: Anion Gap 4 mmol/L; Blood Urea Nitrogen 31 mg/dL (7-17); Calcium 9.5 mg/dL (8.4-10.2); Carbon Dioxide 37 mmol/L (22-30); Chloride 102 mmol/L (98-107); Glucose 237 mg/dL (74-99); Potassium 3.7 mmol/L (3.5-5.1); Sodium 143 mmol/L (137-145)
--- NOTE | 2018-06-25 11:34 | P.DS ---
Providers Date of admission: 06/16/18 12:13 Attending physician: Armando Stroud Consults: 06/20/18 17:45 Consult Physician Routine Consulting Provider: Tristian Harman Consult Reason/Comments: Congestive heart failure Do you want consulting provider notified?: Yes 06/20/18 17:46 Consult Physician Routine Consulting Provider: Ricardo Hudson Consult Reason/Comments: aspiration pneumonia Do you want consulting provider notified?: Yes 06/21/18 16:19 Consult Physician Routine Consulting Provider: Jatinder Chavira Consult Reason/Comments: aspiration pneumonia Do you want consulting provider notified?: Yes Primary care physician: [facility] Course: Final diagnosis Acute bilateral aspiration pneumonia with the possible sepsis with acute hypoxic respiratory failure with a combination of pneumonia and CHF. Changes in mental status possible acute on chronic metabolic encephalopathy Status post PEG tube feedings Bilateral pulmonary edema from fluid overload CHF acute exacerbation with acute on chronic systolic dysfunction ejection fraction 45% Combination systolic and diastolic dysfunction Acute UTI with cystitis and Proteus mirabilis Chronic dysphagia patient isn't beyond PEG tubes currently Proximally to fibrillation flutter currently on normal sinus rhythm. Coumadin toxicity no evidence of bleeding. Review of cognitive impairment due to underlying dementia. Diabetes mellitus type 2 uncontrolled with hyperglycemia. GERD. Hypertension Hyperlipidemia Chronic medical ability Incontinence Multiple medical issues and problems with the residual fluids and multiple admissions because of aspiration pneumonia No code Discharge disposition Patient be discharged in a stable condition with guarded prognosis total time taken 35 minutes History of present illness This 73-year-old woman with a past medical history multiple medical problems was admitted with a shortness with which is multifactorial patient also had evidence of for COPD CHF and aspiration pneumonia. The patient was treated in conjunction with the multiple consultants. Acute feeds were switched to continuous feeds and the patient appears to be tolerated better. Medications are adjusted. Patient improved significantly. Patient be discharged in a stable condition with guarded prognosis. On exam vitals are stable. Cardio S1 and S2 normal. Respiratory scattered rhonchi. Abdomen soft PEG in situ. Nervous system diffusely weak. Please refer to medication reconciliation list for medication list of medications. Monitor PT/INR closely and adjust Coumadin dosing an outpatient. Plan - Discharge Summary Discharge Rx Participant: No New Discharge Prescriptions: New Amoxic-Pot Clav 600-42.9MG/5Ml [Augmentin 600-42.9 mg/5 ml Liquid] 5 ml PO Q12H 5 Days ml Diltiazem Oral [Cardizem*] 30 mg PO TID tab Ipratropium-Albuterol Nebulize [Duoneb 0.5 mg-3 mg/3 ml Soln] 3 ml INHALATION RT-TID ampul.neb Ipratropium-Albuterol Nebulize [Duoneb 0.5 mg-3 mg/3 ml Soln] 3 ml INHALATION RT-Q2H PRN ampul.neb PRN Reason: Shortness Of Breath Or Wheezing metFORMIN HCL [Glucophage] 500 mg PO AC-BID tab Multivitamins, Thera Liquid [Theragran Liquid (formulary)] 5 ml PO DAILY 30 Days ml Acetaminophen Tab [Tylenol] 500 mg PO Q6HR PRN tab PRN Reason: Fever And/ Or Pain INSULIN LISPRO (HumaLOG) [humaLOG] 0 unit SQ ACHS #1 vial Continue Pravastatin Sodium [Pravachol] 40 mg PEG/G-TUBE HS levETIRAcetam [Keppra Oral Solution] 100 mg PEG/G-TUBE DAILY Citalopram Hydrobromide [CeleXA] 10 mg PEG/G-TUBE DAILY Metoprolol Tartrate [Lopressor] 100 mg PEG/G-TUBE BID Warfarin [Coumadin] 10 mg PEG/G-TUBE SUWEFRSA Aspirin 81 mg PEG/G-TUBE DAILY Omeprazole Susp 2mg/Ml 20 mg PEG/G-TUBE HS Insulin Detemir (Levemir) [Levemir] 28 unit SQ HS #0 Warfarin Sodium [Coumadin] 7.5 mg PO [facility] Ferrous Sulfate [Iron (65 MG Elemental)] 325 mg PEG/G-TUBE DAILY Gabapentin Oral Soln [Neurontin Oral Soln] 100 mg PEG/G-TUBE TID #100 ml Discontinued amLODIPine [Norvasc] 5 mg PEG/G-TUBE DAILY Discharge Medication List Pravastatin Sodium [Pravachol] 40 mg PEG/G-TUBE HS 05/20/17 [History] Citalopram Hydrobromide [CeleXA] 10 mg PEG/G-TUBE DAILY 09/27/17 [History] levETIRAcetam [Keppra Oral Solution] 100 mg PEG/G-TUBE DAILY 09/27/17 [History] Aspirin 81 mg PEG/G-TUBE DAILY 05/30/18 [History] Metoprolol Tartrate [Lopressor] 100 mg PEG/G-TUBE BID 05/30/18 [History] Omeprazole Susp 2mg/Ml 20 mg PEG/G-TUBE HS 05/30/18 [History] Warfarin [Coumadin] 10 mg PEG/G-TUBE SUWEFRSA 05/30/18 [History] Insulin Detemir (Levemir) [Levemir] 28 unit SQ HS #0 05/31/18 [Rx] Ferrous Sulfate [Iron (65 MG Elemental)] 325 mg PEG/G-TUBE DAILY 06/15/18 [History] Warfarin Sodium [Coumadin] 7.5 mg PO MOTUTH 06/15/18 [History] Acetaminophen Tab [Tylenol] 500 mg PO Q6HR PRN tab 06/25/18 [Rx] Amoxic-Pot Clav 600-42.9MG/5Ml [Augmentin 600-42.9 mg/5 ml Liquid] 5 ml PO Q12H 5 Days ml 06/25/18 [Rx] Diltiazem Oral [Cardizem*] 30 mg PO TID tab 06/25/18 [Rx] Gabapentin Oral Soln [Neurontin Oral Soln] 100 mg PEG/G-TUBE TID #100 ml 06/25/18 [Rx] INSULIN LISPRO (HumaLOG) [humaLOG] 0 unit SQ ACHS #1 vial 06/25/18 [Rx] Ipratropium-Albuterol Nebulize [Duoneb 0.5 mg-3 mg/3 ml Soln] 3 ml INHALATION RT-Q2H PRN ampul.neb 06/25/18 [Rx] Ipratropium-Albuterol Nebulize [Duoneb 0.5 mg-3 mg/3 ml Soln] 3 ml INHALATION RT-TID ampul.neb 06/25/18 [Rx] Multivitamins, Thera Liquid [Theragran Liquid (formulary)] 5 ml PO DAILY 30 Days ml 06/25/18 [Rx] metFORMIN HCL [Glucophage] 500 mg PO AC-BID tab 06/25/18 [Rx] Follow up Appointment(s)/Referral(s): Ilir Quintero DO [Primary Care Provider] - [facility] - As Needed Activity/Diet/Wound Care/Special Instructions: Diet nothing by mouth tube feeds 60 mL per hour Check residuals with risk every shift. Accu-Cheks before meals and at bedtime and scale O2 2 L per nasal cannula
[2018-06-25 11:48] LABS: Glucose,Whole Blood 268 mg/dL (75-99)
[2018-06-25 12:36] VITALS: PULSE 80
[2018-06-25 13:22] VITALS: BMI 29.0
--- NOTE | 2018-06-25 14:30 | P.PN ---
Subjective Progress Note Date: 06/25/18 As is a 73-year-old female patient who resides in extended care facility. She has a history of CVA with left-sided paralysis, dysphagia with PEG tube placement, hyperlipidemia, seizures, hypertension, atrial fibrillation anticoagulated with warfarin, permanent pacemaker implantation, diabetes mellitus, GI bleed, dementia. She was brought here to the emergency room on 06/15/2018 after developing fevers and apparent shortness of breath. We're consulted yesterday for concerns regarding aspiration pneumonia. Chest x-ray shows evidence of cardiomegaly, bibasilar airspace disease, small bilateral effusions. She did have a temp of 99.9 earlier this morning currently 98.4. She is on 4 L high flow nasal cannula and maintaining good O2 saturations in the mid 90s. Somewhat tachycardic. Urine culture was positive for Proteus mirabilis. Blood culture reveals no growth. White count 15.7. Hemoglobin 11.2. INR 3.0. Sodium 146. Creatinine 0.39. ProBNP 2030. She is currently on Zosyn. Insulin drip at 3 units per hour. On 06/22/2017 patient seen in follow-up on medical surgical floor. She is awake and alert, she is in bed, with head of the bed up 45. She denies any acute distress, denies any difficulty breathing, does have a congested cough, nonproductive. Lung sounds are diminished to auscultation. No complex chest pain, no fever or chills, T-max in last 24 hours was 99.9F, patient remains on supplemental oxygen to 4 L with a pulse ox of 94-95%. She is awake, oriented 2, to person and place, she is able to make her needs known, she is tolerating her tube feedings, lab work today was reviewed, 1 red cell, is 14.2, hemoglobin is 10.9, INR is 2.3, sodium is 148, potassium 3.8, chloride is 109, CO2 35, B1 is 31 and creatinine 0.40. She is on Zosyn for aspiration pneumonia and Proteus mirabilis urinary tract infection. On 06/23/2018 patient seen in follow-up on medical surgical floor. She is calm and comfortable, in no acute distress, stating in bed, on supplemental oxygen, currently at 4 L, with pulse ox of 94%, no fever or chills, patient's tube feedings have been switched to continuous tube feedings, with 100 mL every 4 hours free water flushes, and today's labs showed white blood cell count is 16.0, hemoglobin of 11.2, INR of 1.9, potassium of 4.5, sodium is 145, chloride is 108, CO2 was 31, B1 is 31 creatinine is 0.38. She is being treated for Proteus mirabilis urinary tract infection and bilateral pneumonia suspected to be related to aspiration and currently on Zosyn. Patient does not verbalize much, but she states not having any distress, she's been afebrile, lung sounds are diminished, patient has a congested cough, and at times it is strong and effective, but at times it is weak. Overall patient is stable, no issues overnight, ID service is following. Follow-up chest x-ray today shows stable bilateral consolidation with small effusions. On 06/25/2018 patient seen in follow-up on medical surgical floor. She is awake and alert, in no acute distress, on 4 L of oxygen with pulse ox of 90%, afebrile, no acute distress, she is on IV diuretics, and yesterday chest x-ray showed improvement in the appearance of bilateral pleural effusions. Lung sounds are clear, diminished at the bases, no cough, congestion, patient is on continuous tube feedings, tolerating them well so far. She's been treated with the IV Zosyn, possibility of aspiration pneumonia, today's lab work has been reviewed, white blood cell count is 16.3, hemoglobin is 11.5, INR is 2.8, electrolytes are relatively unremarkable, with the exception of CO2 which is up to 37, this could be related to IV diuresis, which could probably stop right now, B1 is 31, creatinine 0.40. Patient was found to have evidence of UTI with cultures positive for Proteus mirabilis in the urine cultures, blood culture showed no growth. Clinically she is stable, she is being discharged back to the [facility] today. Objective - Vital Signs Vital signs: Vital Signs Temp 98.5 F 06/25/18 08:48 Pulse 80 06/25/18 12:48 Resp 18 06/25/18 08:48 BP 136/76 06/25/18 08:48 Pulse Ox 98 06/25/18 08:48 Intake & Output 06/24/18 06/25/18 06/25/18 18:59 06:59 18:59 Intake Total 630 330 Output Total 750 Balance 630 -420 Weight 81.5 kg 81.5 kg Intake: Tube Feeding 630 330 Output: Urine 750 Other: Voiding Method Diaper Diaper Diaper Incontinent Incontinent Incontinent # Bowel Movements 1 - Exam GENERAL EXAM: Alert, pleasant, 73-year-old white female on 4 L of oxygen, with a pulse ox of 94-95%, patient has left-sided hemiparesis, patient has generalized swelling in upper and lower extremities. comfortable in no apparent distress. HEAD: Normocephalic/atraumatic. EYES: Normal reaction of pupils, equal size. Conjunctiva pink, sclera white. NOSE: Clear with pink turbinates. THROAT: No erythema or exudates. NECK: No masses, no JVD, no thyroid enlargement, no adenopathy. CHEST: No chest wall deformity. Symmetrical expansion. LUNGS: Equal air entry with no crackles, wheeze, rhonchi or dullness. Congested cough, nonproductive. CVS: Regular rate and rhythm, normal S1 and S2, no gallops, no murmurs, no rubs ABDOMEN: Soft, nontender. No hepatosplenomegaly, normal bowel sounds, no guarding or rigidity. EXTREMITIES: No clubbing, upper and lower extremity edema, no cyanosis, 2+ pulses and upper and lower extremities. MUSCULOSKELETAL: Muscle strength and tone normal. SPINE: No scoliosis or deformity SKIN: No rashes CENTRAL NERVOUS SYSTEM: Alert and oriented -2. No focal deficits, tone is normal in all 4 extremities. PSYCHIATRIC: Alert and oriented -2. Appropriate affect. Intact judgment and insight. - Labs CBC & Chem 7: 06/25/18 08:59 06/25/18 08:59 Labs: Abnormal Lab Results - Last 24 Hours (Table) 06/24/18 06/24/18 06/25/18 Range/Units 17:14 19:30 07:22 WBC (3.8-10.6) k/uL MCH (25.0-35.0) pg MCHC (31.0-37.0) g/dL RDW (11.5-15.5) % Neutrophils # (1.3-7.7) k/uL PT (9.0-12.0) sec INR (<1.2) Carbon Dioxide (22-30) mmol/L BUN (7-17) mg/dL Creatinine (0.52-1.04) mg/dL Glucose (74-99) mg/dL POC Glucose (mg/dL) 193 H 217 H 227 H (75-99) mg/dL 06/25/18 06/25/18 06/25/18 Range/Units 08:59 08:59 08:59 WBC 16.3 H (3.8-10.6) k/uL MCH 23.9 L (25.0-35.0) pg MCHC 29.2 L (31.0-37.0) g/dL RDW 17.6 H (11.5-15.5) % Neutrophils # 13.2 H (1.3-7.7) k/uL PT 27.1 H (9.0-12.0) sec INR 2.8 H (<1.2) Carbon Dioxide 37 H (22-30) mmol/L BUN 31 H (7-17) mg/dL Creatinine 0.40 L (0.52-1.04) mg/dL Glucose 237 H (74-99) mg/dL POC Glucose (mg/dL) (75-99) mg/dL 06/25/18 Range/Units 11:46 WBC (3.8-10.6) k/uL MCH (25.0-35.0) pg MCHC (31.0-37.0) g/dL RDW (11.5-15.5) % Neutrophils # (1.3-7.7) k/uL PT (9.0-12.0) sec INR (<1.2) Carbon Dioxide (22-30) mmol/L BUN (7-17) mg/dL Creatinine (0.52-1.04) mg/dL Glucose (74-99) mg/dL POC Glucose (mg/dL) 268 H (75-99) mg/dL Assessment and Plan Plan: Assessment: #1 Acute hypoxic respiratory failure secondary to an acute bilateral aspiration pneumonia in a patient with a history of aspiration and PEG tube feedings. #2 History of CVA with left-sided weakness and dysphagia requiring PEG tube placement. #3 Underlying dementia with cognitive impairment. #4 Atrial fibrillation, anticoagulated with warfarin. Permanent pacemaker in place. #5 Hypertension. #6 Hyperlipidemia. #7 Diabetes mellitus. #8 Gastroesophageal reflux disease. #9 Poor overall functional performance based on the above-mentioned multiple comorbidities. Plan: Yesterday chest x-ray showed improvement in the appearance of interstitial edema, And pleural effusions. Clinically patient is stable, no fever or chills, no acute events overnight, she is breathing easier, no cough or congestion, no fever or chills, from pulmonary perspective she stable for discharge back to the today. I performed a history & physical examination of the patient and discussed their management with my nurse practitioner, Doreen Tineo. I reviewed the nurse practitioner's note and agree with the documented findings and plan of care. Lung sounds are positive for diminished breath sounds throughout the lung fie lds. The findings and the impression was discussed with the patient. I attest to the documentation by the nurse practitioner. Time with Patient: Less than 30
--- NOTE | 2018-06-25 14:41 | PN ---
PROGRESS NOTE DATE OF SERVICE: 06/25/2018 REASON FOR FOLLOWUP: Proteus mirabilis UTI and possible aspiration pneumonia. INTERVAL HISTORY: The patient is currently afebrile. She is breathing comfortably on room air. Denies having any chest pain or any cough. Her abdominal discomfort improved. No nausea, vomiting, or any diarrhea reported. PHYSICAL EXAMINATION: Blood pressure 136/76 with a pulse of 78, temperature 98.5, she is 98% on 4 L nasal cannula. General description is an elderly female up in the bed in no distress. RESPIRATORY SYSTEM: Unlabored breathing, clear to auscultation anteriorly. HEART: S1, S2. Regular rate and rhythm. ABDOMEN: Soft, no tenderness. LABS: Hemoglobin 11.5, white count of 16.3, BUN of 31, creatinine 0.40. DIAGNOSTIC IMPRESSION AND PLAN: Patient admitted to the hospital with a fever, source is likely Proteus mirabilis urinary tract infection plus-minus a component of aspiration pneumonia. The patient seemed to have shown clinical improvement. He did have some jump in white count which will be monitored very closely. Currently Zosyn to continue for now. Continue supportive care. MMODL / IJN: [id number] /
[2018-06-25] MEDS ORDERED: WARFARIN 7.5 MG TAB PO ONE (18:00)
--- NOTE | 2018-06-25 19:08 | PN ---
PROGRESS NOTE DATE OF SERVICE: 06/24/2018 This 73-year-old woman who was admitted with bilateral aspiration pneumonia and multiple other medical problems is being closely monitored at this time. The patient is on continuous fluids, which apparently patient is tolerating well. The patient is confused. No fever at this time. On exam, the patient is conscious, confused. Pulse 78, blood pressure 136/76, respiration 18, temperature 98.4, pulse ox 98% on 4 L. HEENT: Conjunctivae normal. NECK: No jugular venous distention. CARDIOVASCULAR SYSTEM: S1, S2 muffled. RESPIRATORY SYSTEM: Breath sounds diminished at the bases. A few scattered rhonchi and crackles. ABDOMEN: Soft, non-tender. No mass palpable. PEG tube in situ. LEGS: No edema. No swelling. NERVOUS SYSTEM: No focal deficit. Labs at this time show WBC 14.8 and INR is 2.4. ASSESSMENT: 1. Acute bilateral aspiration pneumonia with possible sepsis with acute hypoxic respiratory failure with a combination of pneumonia and congestive heart failure. 2. Change in mental status, possibly acute on chronic metabolic encephalopathy. 3. Status post PEG tube feeds. 4. Bilateral pulmonary edema from fluid overload. 5. Congestive heart failure, acute exacerbation, with acute on chronic systolic dysfunction, ejection fraction 45%. 6. Combination of systolic and diastolic dysfunction. 7. Acute urinary tract infection with cystitis and Proteus mirabilis. 8. Chronic dysphagia. Patient is on n.p.o. and PEG tube currently. 9. Paroxysmal atrial fibrillation/flutter. 10.Coumadin toxicity. 11.Severe cognitive impairment secondary to dementia. 12.Diabetes mellitus, type 2. 13.Gastroesophageal reflux disease. 14.Hypertension. 15.Hyperlipidemia. 16.Chronic medical debility. 17.Incontinence. 18.Multiple medical issues. 19.FULL CODE. RECOMMENDATIONS AND DISCUSSION: I recommend to continue current medications, continue with the monitoring, symptomatic treatment. PT/OT evaluation. Continue with tube feeds. Aspiration precautions. Guarded prognosis. Further recommendations to follow. MMODL / IJN: [id number] / MTDD
== END 2018-06-25 14:57 | DRG 871 ==
LOC: EC 14:10 → 4SSUR 15:52 → OBSVTOIN 06-16 12:13
PROVIDERS: ADMIT Hospitalist; ATTEND Hospitalist
DX: A41.9 Sepsis, unspecified organism (principal); G93.41 Metabolic encephalopathy; I50.43 Acute on chronic combined systolic (congestive) and diastolic (congestive) heart failure; J69.0 Pneumonitis due to inhalation of food and vomit; J96.21 Acute and chronic respiratory failure with hypoxia; E87.0 Hyperosmolality and hypernatremia; I42.9 Cardiomyopathy, unspecified; I48.92 Unspecified atrial flutter; I69.354 Hemiplegia and hemiparesis following cerebral infarction affecting left non-dominant side; I11.0 Hypertensive heart disease with heart failure; E11.65 Type 2 diabetes mellitus with hyperglycemia; E78.5 Hyperlipidemia, unspecified; F03.90 Unspecified dementia, unspecified severity, without behavioral disturbance, psychotic disturbance, mood disturbance, and anxiety; G47.33 Obstructive sleep apnea (adult) (pediatric); Z99.89 Dependence on other enabling machines and devices; B96.4 Proteus (mirabilis) (morganii) as the cause of diseases classified elsewhere; I25.10 Atherosclerotic heart disease of native coronary artery without angina pectoris; I48.0 Paroxysmal atrial fibrillation; J44.9 Chronic obstructive pulmonary disease, unspecified; K21.9 Gastro-esophageal reflux disease without esophagitis; N30.90 Cystitis, unspecified without hematuria; R13.10 Dysphagia, unspecified; R79.1 Abnormal coagulation profile; T45.515A Adverse effect of anticoagulants, initial encounter; Z79.01 Long term (current) use of anticoagulants; Z79.4 Long term (current) use of insulin; Z79.82 Long term (current) use of aspirin; Z79.899 Other long term (current) drug therapy; Z80.0 Family history of malignant neoplasm of digestive organs; Z82.3 Family history of stroke; Z83.79 Family history of other diseases of the digestive system; Z87.891 Personal history of nicotine dependence; Z90.710 Acquired absence of both cervix and uterus; Z93.1 Gastrostomy status; Z95.0 Presence of cardiac pacemaker; Z95.1 Presence of aortocoronary bypass graft; Z95.2 Presence of prosthetic heart valve; Z99.81 Dependence on supplemental oxygen; Z98.42 Cataract extraction status, left eye; Z98.41 Cataract extraction status, right eye; Z96.1 Presence of intraocular lens; I08.1 Rheumatic disorders of both mitral and tricuspid valves; R53.81 Other malaise; Z88.1 Allergy status to other antibiotic agents; Z66 Do not resuscitate; R32 Unspecified urinary incontinence; Z87.01 Personal history of pneumonia (recurrent); G43.909 Migraine, unspecified, not intractable, without status migrainosus
CPT/HCPCS: 36415; 71045; 80048; 80053; 81001; 83036; 83605; 83880; 84145; 84484; 85025; 85610; 85730; 87040; 87077; 87086; 87186; 93005; 93306; 94640; 96365; 99285

== ENCOUNTER 2019-11-02 05:53 | Emergency (ER) | payer MEDICARE, OTHER ==
[2019-11-02 06:07] VITALS: BP 132/80; TEMP 97.9
--- NOTE | 2019-11-02 06:25 | ED ---
Recheck HPI - General Chief Complaint: Recheck/Abnormal Lab/Rx Stated Complaint: Feeding tube issues Time Seen by Provider: 11/02/19 06:08 Source: patient, EMS, RN notes reviewed Mode of arrival: EMS Limitations: no limitations - History of Present Illness Initial Comments: 74-year-old female [facility] of clogged PEG tube. Patient reportedly gets medications and feedings through PEG tube. Patient has no other complaints of fevers or chills. No Note drainage or leaking from tube. - Related Data Home Medications Medication Instructions Recorded Confirmed Pravastatin Sodium [Pravachol] 40 mg PEG/G-TUBE HS 05/20/17 06/15/18 Citalopram Hydrobromide [CeleXA] 10 mg PEG/G-TUBE DAILY 09/27/17 06/15/18 levETIRAcetam [Keppra Oral 100 mg PEG/G-TUBE DAILY 09/27/17 06/15/18 Solution] Aspirin 81 mg PEG/G-TUBE DAILY 05/30/18 06/15/18 Metoprolol Tartrate [Lopressor] 100 mg PEG/G-TUBE BID 05/30/18 06/15/18 Omeprazole Susp 2mg/Ml 20 mg PEG/G-TUBE HS 05/30/18 06/15/18 Warfarin [Coumadin] 10 mg PEG/G-TUBE SUWEFRSA 05/30/18 06/15/18 Ferrous Sulfate [Iron (65 MG 325 mg PEG/G-TUBE DAILY 06/15/18 06/15/18 Elemental)] Warfarin Sodium [Coumadin] 7.5 mg PO MOTUTH 06/15/18 06/15/18 Previous Rx's Medication Instructions Recorded Insulin Detemir (Levemir) [Levemir] 28 unit SQ HS #0 05/31/18 Acetaminophen Tab [Tylenol] 500 mg PO Q6HR PRN tab 06/25/18 Amoxic-Pot Clav 600-42.9MG/5Ml 5 ml PO Q12H 5 Days ml 06/25/18 [Augmentin 600-42.9 mg/5 ml Liquid] Diltiazem Oral [Cardizem*] 30 mg PO TID tab 06/25/18 Gabapentin Oral Soln [Neurontin 100 mg PEG/G-TUBE TID #100 ml 06/25/18 Oral Soln] INSULIN LISPRO (HumaLOG) [humaLOG] 0 unit SQ ACHS #1 vial 06/25/18 Ipratropium-Albuterol Nebulize 3 ml INHALATION RT-Q2H PRN 06/25/18 [Duoneb 0.5 mg-3 mg/3 ml Soln] ampul.neb Ipratropium-Albuterol Nebulize 3 ml INHALATION RT-TID ampul.neb 06/25/18 [Duoneb 0.5 mg-3 mg/3 ml Soln] Multivitamins, Thera Liquid 5 ml PO DAILY 30 Days ml 06/25/18 [Theragran Liquid (formulary)] metFORMIN HCL [Glucophage] 500 mg PO AC-BID tab 06/25/18 Allergies Allergy/AdvReac Type Severity Reaction Status Date / Time ciprofloxacin [From Cipro] Allergy Rash/Hives Verified 06/15/18 14:12 ciprofloxacin HCl Allergy Rash/Hives Verified 06/15/18 14:12 [From Cipro] Quinolones Allergy Unknown Verified 06/15/18 14:12 Review of Systems ROS Statement: Those systems with pertinent positive or pertinent negative responses have been documented in the HPI. ROS Other: All systems not noted in ROS Statement are negative. Past Medical History Past Medical History: Atrial Fibrillation, Atrial Flutter, Asthma, Cancer, Heart Failure, CVA/TIA, Dementia, Diabetes Mellitus, GERD/Reflux, GI Bleed, Hyperlipidemia, Hypertension, Pneumonia, Sleep Apnea/CPAP/BIPAP Additional Past Medical History / Comment(s): Verified with [employer] papers r /t son Jose Rafael being unsure of history. Jose Rafael states he is also pt's DPOA. 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, post traumatic seizures, History of Any Multi-Drug Resistant Organisms: None Reported Past Surgical History: Breast Surgery, Cardiac Valve Replacement, Heart Catheterization With Stent, Hysterectomy, Orthopedic Surgery, Pacemaker, Tonsillectomy Additional Past Surgical History / Comment(s): Peg tube, mechanical mitral valve 2000, polypectomy spinal cord/cyst removed, TEEs, CVNs, colonoscopies, bilateral cataract removal/lens implants, L rotator cuff repair, R femur fracture with IM hip/screw/nail, L breast lumpectomy, Past Anesthesia/Blood Transfusion Reactions: No Reported Reaction Date of Last Stent Placement:: 2006 Type of Cardiac Device: Permanent Pacemaker Device Placement Date:: 2009 Past Psychological History: Depression Past Alcohol Use History: Unable to Obtain Past Drug Use History: Unable to Obtain - Past Family History Father Family Medical History: GI Bleed Additional Family Medical History / Comment(s): OF BLEEDING ULCER AT AGE 64 Mother Family Medical History: Cancer, CVA/TIA Additional Family Medical History / Comment(s): HX STROKES, COLON CANCER General Exam Limitations: no limitations General appearance: alert, in no apparent distress Head exam: Present: atraumatic, normocephalic, normal inspection Respiratory exam: Present: normal lung sounds bilaterally. Absent: respiratory distress, wheezes, rales, rhonchi, stridor Cardiovascular Exam: Present: regular rate, normal rhythm, normal heart sounds. Absent: systolic murmur, diastolic murmur, rubs, gallop, clicks GI/Abdominal exam: Present: soft, normal bowel sounds, other (PEG tube noted there is no erythema no drainage no leaking noted). Absent: distended, tenderness, guarding, rebound, rigid Course Vital Signs 11/02/19 05:55 Temperature 97.9 F Blood Pressure 132/80 Procedures - Procedures Initial comment: PEG tube was flushed with 10 mL of diet pepsi with no complications. There is no drainage no leaking this was flushed with saline after. Medical Decision Making - Medical Decision Making PEG tube was clogged, was able to flush it with pop with no comp patients no drainage leaking. Patient discharged in stable condition. Disposition Clinical Impression: PEG tube malfunction Disposition: HOME SELF-CARE Condition: Stable Instructions (If sedation given, give patient instructions): How to Use and Care for Your PEG Tube (ED) Additional Instructions: Please return to the Emergency Department if symptoms worsen or any other concerns. Is patient prescribed a controlled substance at d/c from ED?: No Referrals: Luis A Gomez MD [Primary Care Provider] - 1-2 days Time of Disposition: 06:24
== END 2019-11-02 06:53 | disposition home or self-care (01) ==
LOC: EC 05:53
DX: K94.23 Gastrostomy malfunction (principal); I48.91 Unspecified atrial fibrillation; I48.92 Unspecified atrial flutter; I11.0 Hypertensive heart disease with heart failure; I50.9 Heart failure, unspecified; E11.9 Type 2 diabetes mellitus without complications; E78.5 Hyperlipidemia, unspecified; J45.909 Unspecified asthma, uncomplicated; K21.9 Gastro-esophageal reflux disease without esophagitis; G47.30 Sleep apnea, unspecified; I69.954 Hemiplegia and hemiparesis following unspecified cerebrovascular disease affecting left non-dominant side; F32.9 Major depressive disorder, single episode, unspecified; Z79.01 Long term (current) use of anticoagulants; Z79.82 Long term (current) use of aspirin; Z79.899 Other long term (current) drug therapy; Z88.1 Allergy status to other antibiotic agents; Z88.8 Allergy status to other drugs, medicaments and biological substances; Z95.2 Presence of prosthetic heart valve; Z95.0 Presence of cardiac pacemaker
CPT/HCPCS: 99283

== ENCOUNTER 2019-12-25 16:13 | Inpatient (IN) | payer MEDICARE, OTHER ==
--- NOTE | 2019-12-25 16:57 | ED ---
Recheck HPI <Oni Medrano - Last Filed: 12/25/19 19:58> - General Source: patient, EMS Mode of arrival: EMS Limitations: no limitations <Delaney Hilliard - Last Filed: 12/25/19 20:16> - General Chief Complaint: Recheck/Abnormal Lab/Rx Stated Complaint: Mass on breast Time Seen by Provider: 12/25/19 16:27 - History of Present Illness Initial Comments: Patient is a 74-year-old female, history of heart failure, hypertension, A. fib, hemiplegia, DM, presenting to the emergency Department via transfer from [facility] secondary to a left breast mass as well as possible infection surrounding her PEG tube. Patient had breast ultrasound performed today that shows a 2 cm mass or collection at the wound site with possible sinus tract to the skin. Patient also has a PEG tube and a recent wound culture was obtained which is positive for MRSA. She's had no fevers, chills, vomiting. She is otherwise at her baseline. She is not currently on antibiotics. Patient is normally a and O 1-2, she is not helpful with history. There is no one else present to provide further history. Upon arrival to the ER, her vital signs are stable. (Delaney Hilliard) - Related Data Home Medications Medication Instructions Recorded Confirmed Pravastatin Sodium [Pravachol] 40 mg PEG/G-TUBE HS@2100 05/20/17 12/25/19 levETIRAcetam [Keppra Oral 100 mg PEG/G-TUBE DAILY@0800 09/27/17 12/25/19 Solution] Aspirin 81 mg PEG/G-TUBE DAILY@1700 05/30/18 12/25/19 Metoprolol Tartrate [Lopressor] 100 mg PEG/G-TUBE BID@0800,1700 05/30/18 12/25/19 Omeprazole Susp 2mg/Ml 20 mg PEG/G-TUBE HS@2100 05/30/18 12/25/19 Acetaminophen Oral Susp [Tylenol] 650 mg PEG/G-TUBE Q6H PRN 12/25/19 12/25/19 Apixaban [Eliquis] 2.5 mg PEG/G-TUBE BID@0800,1700 12/25/19 12/25/19 Cetirizine HCl 10 mg PEG/G-TUBE DAILY@1700 12/25/19 12/25/19 Cholestyramine/Aspartame 4 gm PEG/G-TUBE DAILY@0800 12/25/19 12/25/19 [Cholestyramine Light Packet] Diltiazem Oral [Cardizem*] 30 mg PEG/G-TUBE TID@0600,1400,2200 12/25/19 12/25/19 Feosol Liquid 220mg/5ml 330 mg PEG/G-TUBE DAILY@1700 12/25/19 12/25/19 Gabapentin Solution 250mg/5ml 100 mg PEG/G-TUBE 12/25/19 12/25/19 TID@0600,1400,2100 INSULIN ASPART (NovoLOG) [NovoLOG See Protocol SQ BID@0700,2130 12/25/19 12/25/19 (formulary)] Insulin Detemir (Levemir) [Levemir] 48 unit SQ HS 12/25/19 12/25/19 Liquacel 30 ml PEG/G-TUBE BID@1200,2100 12/25/19 12/25/19 Magnesium Hydroxide [Milk of 7,200 mg PEG/G-TUBE DAILY PRN 12/25/19 12/25/19 Magnesia Concentrate] Multivitamins, Thera Liquid 5 ml PO DAILY@1700 12/25/19 12/25/19 [Theragran Liquid (formulary)] Na Phos,M-B/Na Phos,Di-Ba [Fleet 133 ml RECTAL DAILY PRN 12/25/19 12/25/19 Adult] bisacodyL [Dulcolax] 10 mg RECTAL DAILY PRN 12/25/19 12/25/19 hydrOXYzine HCL 25 mg PEG/G-TUBE TID@0600,1400,2200 12/25/19 12/25/19 metFORMIN HCL [metFORMIN HCL Oral 1,000 mg PEG/G-TUBE BID@0800,1700 12/25/19 12/25/19 Soln] Allergies Allergy/AdvReac Type Severity Reaction Status Date / Time ciprofloxacin [From Cipro] Allergy Rash/Hives Verified 12/25/19 17:12 ciprofloxacin HCl Allergy Rash/Hives Verified 12/25/19 17:12 [From Cipro] Quinolones Allergy Unknown Verified 12/25/19 17:12 Review of Systems ROS Other: All systems not noted in ROS Statement are negative. <Oni Medrano - Last Filed: 12/25/19 19:58> ROS Other: All systems not noted in ROS Statement are negative. <Delaney Hilliard - Last Filed: 12/25/19 20:16> ROS Statement: Those systems with pertinent positive or pertinent negative responses have been documented in the HPI. Past Medical History Past Medical History: Atrial Fibrillation, Atrial Flutter, Asthma, Cancer, Heart Failure, CVA/TIA, Dementia, Diabetes Mellitus, GERD/Reflux, GI Bleed, Hyperli pidemia, Hypertension, Pneumonia, Sleep Apnea/CPAP/BIPAP Additional Past Medical History / Comment(s): Verified with [employer] papers r/t son Jose Rafael being unsure of history. Jose Rafael states he is also pt's DPOA. 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, post traumatic seizures, History of Any Multi-Drug Resistant Organisms: None Reported Past Surgical History: Breast Surgery, Cardiac Valve Replacement, Heart Catheterization With Stent, Hysterectomy, Orthopedic Surgery, Pacemaker, Tonsillectomy Additional Past Surgical History / Comment(s): Peg tube, mechanical mitral valve 2000, polypectomy spinal cord/cyst removed, TEEs, CVNs, colonoscopies, bilateral cataract removal/lens implants, L rotator cuff repair, R femur fracture with IM hip/screw/nail, L breast lumpectomy, Past Anesthesia/Blood Transfusion Reactions: No Reported Reaction Date of Last Stent Placement:: 2006 Type of Cardiac Device: Permanent Pacemaker Device Placement Date:: 2009 Past Psychological History: Depression Past Alcohol Use History: Unable to Obtain Past Drug Use History: Unable to Obtain - Past Family History Father Family Medical History: GI Bleed Additional Family Medical History / Comment(s): OF BLEEDING ULCER AT AGE 64 Mother Family Medical History: Cancer, CVA/TIA Additional Family Medical History / Comment(s): HX STROKES, COLON CANCER <Delaney Hilliard - Last Filed: 12/25/19 20:16> General Exam Limitations: no limitations <Delaney Hilliard - Last Filed: 12/25/19 20:16> - General Exam Comments Initial Comments: GENERAL: Patient is well-developed and well-nourished. Patient is nontoxic and in no acute distress. HEAD: Atraumatic, normocephalic. EYES: Pupils equal round and reactive to light, extraocular movements intact, sclera anicteric, conjunctiva are normal. Eyelids were unremarkable. ENT: TMs normal, nares patent, oropharynx clear without exudates. Moist mucous membranes. NECK: Normal range of motion, supple without lymphadenopathy or JVD. LUNGS: Unlabored respirations. Breath sounds clear to auscultation bilaterally and equal. No wheezes rales or rhonchi. HEART: Regular rate and rhythm without murmurs, rubs or gallops. ABDOMEN: Soft, nontender, normoactive bowel sounds. No guarding, no rebound. No masses appreciated. PEG tube is present, some very mild erythema surrounding the tube, mild drainage present. : Deferred MUSCULOSKELETAL: Normal extremities with adequate strength and normal range of motion, no pitting or edema. No clubbing or cyanosis. NEUROLOGICAL: Patient is alert and oriented x 1-2, this is patients baseline. Hx of hemiplegia. Cranial nerves II through XII grossly intact. PSYCH: Normal mood, normal affect. SKIN: Warm, Dry, normal turgor. Patient has an area, approximately 2 cm in diameter in the left axillary area seems hard to the touch. (Delaney Hilliard) Course Vital Signs 12/25/19 12/25/19 16:20 19:00 Temperature 98.6 F Pulse Rate 70 78 Respiratory 18 16 Rate Blood Pressure 169/71 168/88 O2 Sat by Pulse 97 96 Oximetry Medical Decision Making - Lab Data Result diagrams: 12/25/19 17:08 12/25/19 17:08 <Oni Medrano - Last Filed: 12/25/19 19:58> - Lab Data Result diagrams: 12/25/19 17:08 12/25/19 17:08 <Delaney Hilliard - Last Filed: 12/25/19 20:16> - Medical Decision Making patient was reexamined and reevaluated by myself, Dr. Medrano. Patient does have a wound left upper breast with some mild purulent discharge. Ultrasound concerning for fluid collection. Case was discussed with Dr. Luis A Gomez, who will admit his patient with consult for surgical call, Dr. Arceo. I do agree with the findings. This includes diagnostic interpretation and treatment plan. (Oni Medrano) - Lab Data Lab Results 12/25/19 12/25/19 Range/Units 17:08 17:08 WBC 11.2 H (3.8-10.6) k/uL RBC 4.96 (3.80-5.40) m/uL Hgb 12.7 (11.4-16.0) gm/dL Hct 40.5 (34.0-46.0) % MCV 81.6 (80.0-100.0) fL MCH 25.7 (25.0-35.0) pg MCHC 31.5 (31.0-37.0) g/dL RDW 16.2 H (11.5-15.5) % Plt Count 243 (150-450) k/uL MPV 9.2 Neutrophils % 68 % Lymphocytes % 21 % Monocytes % 5 % Eosinophils % 5 % Basophils % 1 % Neutrophils # 7.6 (1.3-7.7) k/uL Lymphocytes # 2.3 (1.0-4.8) k/uL Monocytes # 0.6 (0-1.0) k/uL Eosinophils # 0.5 (0-0.7) k/uL Basophils # 0.1 (0-0.2) k/uL Hypochromasia Slight Anisocytosis Slight ESR 28 H (0-20) mm/hr Sodium 137 (137-145) mmol/L Potassium 5.1 (3.5-5.1) mmol/L Chloride 103 (98-107) mmol/L Carbon Dioxide 29 (22-30) mmol/L Anion Gap 5 mmol/L BUN 29 H (7-17) mg/dL Creatinine 0.60 (0.52-1.04) mg/dL Est GFR (CKD-EPI)AfAm >90 (>60 ml/min/1.73 sqM) Est GFR (CKD-EPI)NonAf >90 (>60 ml/min/1.73 sqM) Glucose 150 H (74-99) mg/dL Calcium 9.5 (8.4-10.2) mg/dL Total Bilirubin 0.4 (0.2-1.3) mg/dL AST 24 (14-36) U/L ALT 15 (4-34) U/L Alkaline Phosphatase 127 H (38-126) U/L C-Reactive Protein 18.0 H (<10.0) mg/L Total Protein 7.1 (6.3-8.2) g/dL Albumin 3.5 (3.5-5.0) g/dL Disposition <Oni Medrano - Last Filed: 12/25/19 19:58> Decision Date: 12/25/19 Decision Time: 20:16 <Delaney Hilliard - Last Filed: 12/25/19 20:16> Clinical Impression: Left breast mass, Skin infection Disposition: ADMITTED IP TO THIS [facility] Condition: Stable Referrals: Luis A Gomez MD [Primary Care Provider] - 1-2 days
[2019-12-25 17:41] LABS: Anisocytosis Slight; Basophils # (A) 0.1 k/uL (0-0.2); Basophils % (A) 1 %; Eosinophils # (A) 0.5 k/uL (0-0.7); Eosinophils % (A) 5 %; HCT 40.5 % (34.0-46.0); HGB 12.7 gm/dL (11.4-16.0); Hypochromasia Slight; Lymphocytes # (A) 2.3 k/uL (1.0-4.8); Lymphocytes % (A) 21 %; MCH 25.7 pg (25.0-35.0); MCHC 31.5 g/dL (31.0-37.0); MCV 81.6 fL (80.0-100.0); Mean Platelet Volume 9.2; Monocytes # (A) 0.6 k/uL (0-1.0); Monocytes % (A) 5 %; Neutrophils # (A) 7.6 k/uL (1.3-7.7); Neutrophils % (A) 68 %; Platelet Count 243 k/uL (150-450); RBC 4.96 m/uL (3.80-5.40); RDW 16.2 % (11.5-15.5); WBC 11.2 k/uL (3.8-10.6)
[2019-12-25 17:54] LABS: ALT 15 U/L (4-34); AST 24 U/L (14-36); African American GFR (CKD) >90 (>60 ml/min/1.73 sqM); Albumin 3.5 g/dL (3.5-5.0); Alkaline Phosphatase 127 U/L (38-126); Anion Gap 5 mmol/L; Blood Urea Nitrogen 29 mg/dL (7-17); Calcium 9.5 mg/dL (8.4-10.2); Carbon Dioxide 29 mmol/L (22-30); Chloride 103 mmol/L (98-107); Glucose 150 mg/dL (74-99); Non-African American GFR(CKD) >90 (>60 ml/min/1.73 sqM); Potassium 5.1 mmol/L (3.5-5.1); Sodium 137 mmol/L (137-145); Total Bilirubin 0.4 mg/dL (0.2-1.3); Total Protein 7.1 g/dL (6.3-8.2)
[2019-12-25 19:13] LABS: Erythrocyte Sedimentation Rate 28 mm/hr (0-20)
[2019-12-25] MEDS: AMPICILLIN-SULBACTAM 1.5 GM in SODIUM CHLORIDE 0.9% 50 ML IVPB SCH (20:49)
[2019-12-26] MEDS: AMPICILLIN-SULBACTAM 1.5 GM in SODIUM CHLORIDE 0.9% 50 ML IVPB SCH ×4 (02:19→19:24)
[2019-12-26 07:26] LABS: Glucose,Whole Blood 123 mg/dL (75-99)
--- NOTE | 2019-12-26 13:32 | P.GSCN ---
History of Present Illness Consult date: 12/26/19 History of present illness: 74-year-old female presents from [facility] facility secondary to concern for breast lesion along with drainage around PEG tube site. The patient is noted to have a history of cerebral infarction and requires PEG tube feeding due to difficulty swallowing. She is a poor historian and much of the history is obtained from the patient's records and ER record. Currently, she denies any significant abdominal pain. She denies any breast pain. According to the ER records, patient did have a bedside ultrasound performed. However, there is no official record of this ultrasound. I'm unable to find any history of previous mammogram for this patient. Culture was taken from the PEG tube site which is noted to be positive for MRSA. Patient is on antibiotics. Review of Systems ROS unobtainable: due to mental status Past Medical History Past Medical History: Atrial Fibrillation, Atrial Flutter, Asthma, Cancer, Heart Failure, CVA/TIA, Dementia, Diabetes Mellitus, GERD/Reflux, GI Bleed, Hyperlipidemia, Hypertension, Pneumonia, Sleep Apnea/CPAP/BIPAP Additional Past Medical History / Comment(s): Verified with [employer] papers r/t son Jose Rafael being unsure of history. Jose Rafael states he is also pt's DPOA. 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, post traumatic seizures, History of Any Multi-Drug Resistant Organisms: None Reported Past Surgical History: Breast Surgery, Cardiac Valve Replacement, Heart Cathet erization With Stent, Hysterectomy, Orthopedic Surgery, Pacemaker, Tonsillectomy Additional Past Surgical History / Comment(s): Peg tube, mechanical mitral valve 2000, polypectomy spinal cord/cyst removed, TEEs, CVNs, colonoscopies, bilateral cataract removal/lens implants, L rotator cuff repair, R femur fracture with IM hip/screw/nail, L breast lumpectomy, Past Anesthesia/Blood Transfusion Reactions: No Reported Reaction Date of Last Stent Placement:: 2006 Type of Cardiac Device: Permanent Pacemaker Device Placement Date:: 2009 Past Psychological History: Depression Additional Psychological History / Comment(s): Pt resides at [facility]. She is nonambulatory-get placed in wheelchair. She needs assist with all ADLs Pt is NPO and has a peg tube. Smoking Status: Unknown if ever smoked Past Alcohol Use History: Unable to Obtain Additional Past Alcohol Use History / Comment(s): SMOKED OFF AND ON 1960 LESS THAN A YEAR THEN QUIT Past Drug Use History: Unable to Obtain - Past Family History Father Family Medical History: GI Bleed Additional Family Medical History / Comment(s): OF BLEEDING ULCER AT AGE 64 Mother Family Medical History: Cancer, CVA/TIA Additional Family Medical History / Comment(s): HX STROKES, COLON CANCER Medications and Allergies Home Medications Medication Instructions Recorded Confirmed Type Pravastatin Sodium [Pravachol] 40 mg PEG/G-TUBE HS@2100 05/20/17 12/25/19 History levETIRAcetam [Keppra Oral 100 mg PEG/G-TUBE DAILY@0800 09/27/17 12/25/19 History Solution] Aspirin 81 mg PEG/G-TUBE DAILY@1700 05/30/18 12/25/19 History Metoprolol Tartrate [Lopressor] 100 mg PEG/G-TUBE BID@0800,1700 05/30/18 12/25/19 History Omeprazole Susp 2mg/Ml 20 mg PEG/G-TUBE HS@2100 05/30/18 12/25/19 History Acetaminophen Oral Susp [Tylenol] 650 mg PEG/G-TUBE Q6H PRN 12/25/19 12/25/19 History Apixaban [Eliquis] 2.5 mg PEG/G-TUBE BID@0800,1700 12/25/19 12/25/19 History Cetirizine HCl 10 mg PEG/G-TUBE DAILY@1700 12/25/19 12/25/19 History Cholestyramine/Aspartame 4 gm PEG/G-TUBE DAILY@0800 12/25/19 12/25/19 History [Cholestyramine Light Packet] Diltiazem Oral [Cardizem*] 30 mg PEG/G-TUBE TID@0600,1400,2200 12/25/19 12/25/19 History Feosol Liquid 220mg/5ml 330 mg PEG/G-TUBE DAILY@1700 12/25/19 12/25/19 History Gabapentin Solution 250mg/5ml 100 mg PEG/G-TUBE 12/25/19 12/25/19 History TID@0600,1400,2100 INSULIN ASPART (NovoLOG) [NovoLOG See Protocol SQ BID@0700,2130 12/25/19 12/25/19 History (formulary)] Insulin Detemir (Levemir) [Levemir] 48 unit SQ HS 12/25/19 12/25/19 History Liquacel 30 ml PEG/G-TUBE BID@1200,2100 12/25/19 12/25/19 History Magnesium Hydroxide [Milk of 7,200 mg PEG/G-TUBE DAILY PRN 12/25/19 12/25/19 History Magnesia Concentrate] Multivitamins, Thera Liquid 5 ml PO DAILY@1700 12/25/19 12/25/19 History [Theragran Liquid (formulary)] Na Phos,M-B/Na Phos,Di-Ba [Fleet 133 ml RECTAL DAILY PRN 12/25/19 12/25/19 History Adult] bisacodyL [Dulcolax] 10 mg RECTAL DAILY PRN 12/25/19 12/25/19 History hydrOXYzine HCL 25 mg PEG/G-TUBE TID@0600,1400,2200 12/25/19 12/25/19 History metFORMIN HCL [metFORMIN HCL Oral 1,000 mg PEG/G-TUBE BID@0800,1700 12/25/19 12/25/19 History Soln] Allergies Allergy/AdvReac Type Severity Reaction Status Date / Time ciprofloxacin [From Cipro] Allergy Rash/Hives Verified 12/25/19 17:12 ciprofloxacin HCl Allergy Rash/Hives Verified 12/25/19 17:12 [From Cipro] Quinolones Allergy Unknown Verified 12/25/19 17:12 Surgical - Exam Osteopathic Statement: *. No significant issues noted on an osteopathic structural exam other than those noted in the History and Physical/Consult. Vital Signs Temp Pulse Resp BP Pulse Ox 98.6 F 70 18 169/71 97 12/25/19 16:20 12/25/19 16:20 12/25/19 16:20 12/25/19 16:20 12/25/19 16:20 - General well nourished, no distress - Eyes normal ocular movement - ENT normal mucosa, no hearing loss - Neck trachea midline - Respiratory normal respiratory effort - Abdomen Soft, nontender, nondistended, no rebound, guarding, PEG tube site with some mild purulent drainage and minimal erythema Left breast with superior portion noted to have what appears to be inflammatory changes and is hard to the touch. There is no active drainage or palpable fluctuance or induration at this site. Results - Labs 12/25/19 17:12/25/19 17:08 Abnormal Lab Results - Last 24 Hours (Table) 12/25/19 12/25/19 12/26/19 Range/Units 17:08 17:08 07:25 WBC 11.2 H (3.8-10.6) k/uL RDW 16.2 H (11.5-15.5) % ESR 28 H (0-20) mm/hr BUN 29 H (7-17) mg/dL Glucose 150 H (74-99) mg/dL POC Glucose (mg/dL) 123 H (75-99) mg/dL Alkaline Phosphatase 127 H (38-126) U/L C-Reactive Protein 18.0 H (<10.0) mg/L Diabetes panel 12/25/19 Range/Units 17:08 Sodium 137 (137-145) mmol/L Potassium 5.1 (3.5-5.1) mmol/L Chloride 103 (98-107) mmol/L Carbon Dioxide 29 (22-30) mmol/L BUN 29 H (7-17) mg/dL Creatinine 0.60 (0.52-1.04) mg/dL Glucose 150 H (74-99) mg/dL Calcium 9.5 (8.4-10.2) mg/dL AST 24 (14-36) U/L ALT 15 (4-34) U/L Alkaline Phosphatase 127 H (38-126) U/L Total Protein 7.1 (6.3-8.2) g/dL Albumin 3.5 (3.5-5.0) g/dL Calcium panel 12/25/19 Range/Units 17:08 Calcium 9.5 (8.4-10.2) mg/dL Albumin 3.5 (3.5-5.0) g/dL Pituitary panel 12/25/19 Range/Units 17:08 Sodium 137 (137-145) mmol/L Potassium 5.1 (3.5-5.1) mmol/L Chloride 103 (98-107) mmol/L Carbon Dioxide 29 (22-30) mmol/L BUN 29 H (7-17) mg/dL Creatinine 0.60 (0.52-1.04) mg/dL Glucose 150 H (74-99) mg/dL Calcium 9.5 (8.4-10.2) mg/dL Adrenal panel 12/25/19 Range/Units 17:08 Sodium 137 (137-145) mmol/L Potassium 5.1 (3.5-5.1) mmol/L Chloride 103 (98-107) mmol/L Carbon Dioxide 29 (22-30) mmol/L BUN 29 H (7-17) mg/dL Creatinine 0.60 (0.52-1.04) mg/dL Glucose 150 H (74-99) mg/dL Calcium 9.5 (8.4-10.2) mg/dL Total Bilirubin 0.4 (0.2-1.3) mg/dL AST 24 (14-36) U/L ALT 15 (4-34) U/L Alkaline Phosphatase 127 H (38-126) U/L Total Protein 7.1 (6.3-8.2) g/dL Albumin 3.5 (3.5-5.0) g/dL Assessment and Plan Plan: 74-year-old female with concern of infection around PEG tube site and breast mass. There appears to be minimal drainage around the PEG tube site along with minimal erythema. I would recommend continuing antibiotics and okay to use this PEG tube site. Additional workup will be required of the left breast. There are conflicting reports of concern for abscess versus breast mass. There is no official imaging on the record that I can find. We will obtain a left breast ultrasound. It is difficult to elicit history from the patient so pervious mammogram history is not obtainable at this time. Based on ultrasound results, further recommendations will be made.
--- NOTE | 2019-12-26 14:43 | USB ---
Left breast ultrasound. History wound left upper breast. Comparison none. FINDINGS: Left breast is scanned and there is an elongated hypoechoic area that measures 22 x 8 x 11 mm with so me shadowing in the 11:00 position of the left breast. Posterior wall is not well visualized. There is oval-shaped 13 x 7 mm focus in the 2:00 position consistent with an ordinary lymph node. The re is a hypoechoic rounded 3 mm focus in the 3:00 position that could be a small lymph node. IMPRESSION: In the area of concern there is shadowing mass as above. This could contain air. Correlation with a m ammogram is recommended. Tumor not excluded.
[2019-12-26] MEDS ORDERED: MAGNESIUM HYDROXIDE 2,400 MG/10 ML CUP PEG/G-TUBE PRN (15:00)
[2019-12-26] MEDS ORDERED: ACETAMINOPHEN ORAL SUSP 160 MG/5 ML CUP PEG/G-TUBE PRN (15:00)
[2019-12-26] MEDS: ASPIRIN 81 MG PEG/G-TUBE SCH (16:09)
[2019-12-26] MEDS: APIXABAN 2.5 MG TABLET PEG/G-TUBE SCH (16:09)
[2019-12-26] MEDS: LORATADINE 10 MG TAB PEG/G-TUBE SCH (16:09)
[2019-12-26] MEDS: METOPROLOL TARTRATE 50 MG TAB PEG/G-TUBE SCH (16:10)
[2019-12-26] MEDS: FERROUS SULFATE ORAL ELIXIR 300 MG/5 ML CUP PEG/G-TUBE SCH (16:10)
[2019-12-26] MEDS: metFORMIN 500 MG TAB PEG/G-TUBE SCH (16:10)
[2019-12-26] MEDS ORDERED: NON FORMULARY DRUG (Liquacel 30 ML) PEG/G-TUBE SCH (21:00)
[2019-12-26] MEDS: GABAPENTIN PO SCH (21:11)
[2019-12-26] MEDS: INSULIN DETEMIR (LEVEMIR) 100 UNIT/ML SYR SQ SCH (21:12)
[2019-12-26] MEDS: PANTOPRAZOLE SODIUM 40 MG GRANULE PKT PEG/G-TUBE SCH (22:17)
[2019-12-26] MEDS: PRAVASTATIN SODIUM 40 MG TAB PO SCH (22:17)
[2019-12-26] MEDS: DILTIAZEM ORAL 30 MG TAB PEG/G-TUBE SCH (22:18)
[2019-12-26] MEDS: hydrOXYzine HCL 25 MG TAB PEG/G-TUBE SCH (22:18)
--- NOTE | 2019-12-26 22:44 | HP ---
HISTORY AND PHYSICAL 74-year-old white female [facility] due to a breast lesion with some drainage and redness around her breast radiating throughout her breast and up to her arm. She also has a PEG tube feeding due to difficulty swallowing from a cerebral infarction. Poor historian. Denies any abdominal pain. Ultrasound of the breast shows possible 2 cm lesion. PEG tube is positive for MRSA. She is on antibiotics. REVIEW OF SYMPTOMS: 14-point review of systems negative/decreased due to poor mental status. PAST MEDICAL HISTORY: Atrial fibrillation, A-flutter, asthma, heart failure, CVA, TIA, dementia, diabetes mellitus, GERD, GI bleed, dyslipidemia, hypertension, pneumonia, sleep apnea. Care was discussed with the surgeon possible treatment. SURGERIES: Before she has had breast surgery, cardiac valve replacement, heart catheterization with stent, hysterectomy, orthopedic surgery, pacemaker, tonsillectomy, PEG tube, and mechanical mitral valve, polypectomy, spinal cord cyst. SKIP, CV and colonoscopies, bilateral cataracts removal. Lens implants, left rotator cuff repair, right femur repair, left breast lumpectomy in the past. Permanent pacemaker. [facility] is where she lives. She has a feeding tube after a stroke. Father of a GI bleed with ulcer at age 64, mother with CVA/TIA, cancer, history of strokes and colon cancer. MEDICATIONS: Home medicines are: Pravastatin 40 mg per PEG tube, Keppra 100 mg per PEG tube, aspirin 81 mg daily, Lopressor 100 mg b.i.d., omeprazole 20 mg daily. Eliquis 2.5 through the PEG tube b.i.d., through the PEG tube daily, cholestyramine packets daily, Cardizem 30 mg PEG tube daily. NovoLog subcu b.i.d., gabapentin 100 mg thru PEG tube t.i.d., Levemir 48 units daily, magnesium hydroxide 7200 mg per PEG tube daily, multivitamin daily. ALLERGIES: CIPROFLOXACIN, QUINOLONES. PHYSICAL EXAMINATION: Temperature is 98.6, pulse 70, respiratory 16-20, blood pressure is 160s over 70s, O2 97%. Well -nourished, no acute distress. Pupils equal, round, reactive. Neck is supple. No mass. Respiratory is clear. GI is soft. Left breast superior portion noted to have what appears to be inflammatory change hard lesion, palpable fluctuation is negative. LABS: White count 11.2, hemoglobin 12.7, BUN 29, creatinine 0.4. Sodium 137, potassium 5.1, BUN 29, creatinine 0.6. Possible infection around the PEG tube site and a breast mass. Minimal drainage from the PEG tube. Continue antibiotics through the PEG tube site, left breast. We will get Infectious Disease and Surgery for possible biopsy. Breast ultrasound is ordered. Please see further orders. MMODL / IJN: [id number] /
[2019-12-27] MEDS: INSULIN ASPART (NovoLOG) 100 UNIT/ML VIAL SQ SCH ×4 (00:20→18:02)
[2019-12-27 00:24] LABS: Glucose,Whole Blood 150 mg/dL (75-99)
[2019-12-27] MEDS: AMPICILLIN-SULBACTAM 1.5 GM in SODIUM CHLORIDE 0.9% 50 ML IVPB SCH ×4 (02:15→20:59)
[2019-12-27] MEDS: GABAPENTIN PO SCH ×3 (03:54→20:58)
[2019-12-27 05:18] LABS: Anisocytosis Slight; Basophils # (A) 0.1 k/uL (0-0.2); Basophils % (A) 1 %; Eosinophils # (A) 0.4 k/uL (0-0.7); Eosinophils % (A) 5 %; Hypochromasia Slight; Lymphocytes # (A) 1.7 k/uL (1.0-4.8); Lymphocytes % (A) 19 %; MCH 25.6 pg (25.0-35.0); MCHC 30.9 g/dL (31.0-37.0); MCV 82.8 fL (80.0-100.0); Mean Platelet Volume 8.9; Monocytes # (A) 0.5 k/uL (0-1.0); Monocytes % (A) 5 %; Neutrophils # (A) 6.2 k/uL (1.3-7.7); Neutrophils % (A) 69 %; Platelet Count 206 k/uL (150-450); RBC 4.71 m/uL (3.80-5.40); RDW 16.1 % (11.5-15.5)
[2019-12-27] MEDS: hydrOXYzine HCL 25 MG TAB PEG/G-TUBE SCH ×3 (05:28→21:08)
[2019-12-27] MEDS: DILTIAZEM ORAL 30 MG TAB PEG/G-TUBE SCH ×3 (05:28→21:07)
[2019-12-27 06:05] LABS: Glucose,Whole Blood 132 mg/dL (75-99)
[2019-12-27] MEDS: METOPROLOL TARTRATE 50 MG TAB PEG/G-TUBE SCH ×2 (09:10→18:01)
[2019-12-27] MEDS: metFORMIN 500 MG TAB PEG/G-TUBE SCH ×2 (09:35→18:01)
[2019-12-27] MEDS ORDERED: LIDOCAINE 1% INJ 10MG/ML (20 ML MDV) ONE (09:48)
[2019-12-27] MEDS: APIXABAN 2.5 MG TABLET PEG/G-TUBE SCH ×2 (10:00→18:02)
[2019-12-27 10:08] LABS: African American GFR (CKD) 104.8 (60.0-200.0); Albumin 3.4 g/dL (3.80-4.90); Albumin/Globulin Ratio 1.17 (1.60-3.17); Anion Gap 7.5 mmol/L (4.00-12.00); BUN/Creat Ratio 26.67 Ratio (12.00-20.00); Calcium 9.2 mg/dL (8.7-10.3); Carbon Dioxide 27.5 mmol/L (21.6-31.8); Globulin 2.9 g/dL (1.6-3.3); Non-African American GFR(CKD) 90.4 (60.0-200.0); Potassium 3.9 mmol/L (3.5-5.5); Total Bilirubin 0.5 mg/dL (0.3-1.2); Total Protein 6.3 g/dL (6.2-8.2)
--- NOTE | 2019-12-27 11:11 | PN ---
PROGRESS NOTE 74-year-old white female who presents to the hospital with cellulitis of the chest versus breast abscess versus inflammatory breast cancer. Breast self ultrasound shows some kind. We are waiting for Dr. Chavira's recommendations as well as surgical consult. Remains on IV antibiotics, Unasyn at this time. She has a PEG tube and possible infection around her PEG tube, which is chronic for which she takes antibiotics long- term thru the PEG tube in the shelter. She is resting comfortably. Vital signs appear to be stable. Blood pressure 140s to 160s over 70s to 80s. O2 94 to 95% on room air. Pulse is 70s to 100, temp 98. CARDIOVASCULAR: S1, S2. Lungs clear. Breath shows open wound on the left upper chest with some redness and scab formation around this wound with some atypical features radiating to the breast area on the left side. Possible inflammatory breast cancer versus abscess of the breast with surrounding cellulitis. Await for Infectious Disease consultation as well as possible skin biopsy from the surgery. Prognosis guarded. Possibly increase blood pressure medicines as blood pressure is slightly elevated today. MMODL / IJN: [id number] /
--- NOTE | 2019-12-27 11:48 | P.PN ---
Subjective Progress Note Date: 12/27/19 Patient seen and examined at bedside. No acute events overnight. Objective - Vital Signs Vital signs: Vital Signs Temp 98.0 F 12/27/19 05:13 Pulse 91 12/27/19 05:13 Resp 16 12/27/19 05:13 BP 163/73 12/27/19 05:13 Pulse Ox 94 L 12/27/19 05:13 Intake & Output 12/26/19 12/27/19 12/27/19 18:59 06:59 18:59 Intake Total 0 250 Balance 0 250 Weight 78.2 kg 81 kg Intake: Intake, IV Titration 50 Amount Ampicillin-Sulbactam 1.5 50 gm In Sodium Chloride 0.9 % 50 ml @ 100 mls/hr IVPB Q6H [facility] Rx#:[id number] Oral 0 0 Tube Feeding 200 Other: # Voids 2 1 - Constitutional General appearance: Present: cooperative, no acute distress - Additional findings Additional findings: Left breast, unchanged exam from previous exam - Labs CBC & Chem 7: 12/27/19 04:46 12/27/19 04:46 Labs: Abnormal Lab Results - Last 24 Hours (Table) 12/27/19 12/27/19 12/27/19 Range/Units 00:16 04:46 04:46 MCHC 30.9 L (31.0-37.0) g/dL RDW 16.1 H (11.5-15.5) % BUN/Creatinine Ratio 26.67 H (12.00-20.00) Ratio Glucose 189 H (70-110) mg/dL POC Glucose (mg/dL) 150 H (75-99) mg/dL Albumin 3.40 L (3.80-4.90) g/dL Albumin/Globulin Ratio 1.17 L (1.60-3.17) g/dL 12/27/19 Range/Units 06:04 MCHC (31.0-37.0) g/dL RDW (11.5-15.5) % BUN/Creatinine Ratio (12.00-20.00) Ratio Glucose (70-110) mg/dL POC Glucose (mg/dL) 132 H (75-99) mg/dL Albumin (3.80-4.90) g/dL Albumin/Globulin Ratio (1.60-3.17) g/dL Microbiology - Last 24 Hours (Table) 12/25/19 20:49 Blood Culture - Preliminary Blood No Growth after 24 hours Assessment and Plan Plan: Ultrasound of left breast reviewed. Concern for shadowing mass of the left breast. Unclear whether this is fluid-filled or inflammatory disease process. We will obtain a biopsy today. Patient does have a legal guardian and will obtain consent. Please review procedure no.
[2019-12-27 11:50] LABS: Glucose,Whole Blood 204 mg/dL (75-99)
--- NOTE | 2019-12-27 11:53 | P.PCN ---
Date of Procedure: 12/27/19 Preoperative Diagnosis: Left breast lesion Postoperative Diagnosis: Left breast lesion Procedure(s) Performed: Left breast biopsy Anesthesia: local Surgeon: Gilda Arceo Pathology: other (Left breast lesion) Condition: stable Disposition: floor Indications for Procedure: 74-year-old female with left breast lesion. Unclear based on imaging and inflammatory cancer versus fluid-filled abscess. Secondary this, plan is for biopsy. This was explained to the patient and the patient's legal guardian. Consent was obtained. Operative Findings: Left breast biopsy performed. Hemostasis maintained. Description of Procedure: Patient was prepped and draped in regular sterile fashion. Local anesthetic was administered. A elliptical incision was made over the palpable lesion. The lesion was then biopsied with a scalpel. Hemostasis was maintained with direct pressure. The wound was then closed with 3-0 nylon suture. The patient tolerated the procedure well. Biopsy to be sent to pathology department. This was discussed with the nurse.
[2019-12-27] MEDS: CHOLESTYRAMINE (WITH SUGAR) 4 GM PACKET PEG/G-TUBE SCH (14:08)
[2019-12-27] MEDS: MULTIVITAMINS, THERA LIQUID 237 ML BOTTLE PO SCH (14:26)
[2019-12-27] MEDS: levETIRAcetam ORAL SOLN 500 MG/5 ML CUP PEG/G-TUBE SCH (14:27)
[2019-12-27] MEDS: ASPIRIN 81 MG PEG/G-TUBE SCH (14:27)
[2019-12-27] MEDS: LORATADINE 10 MG TAB PEG/G-TUBE SCH (14:28)
[2019-12-27] MEDS: FERROUS SULFATE ORAL ELIXIR 300 MG/5 ML CUP PEG/G-TUBE SCH (14:28)
[2019-12-27 17:58] LABS: Glucose,Whole Blood 254 mg/dL (75-99)
[2019-12-27] MEDS: INSULIN DETEMIR (LEVEMIR) 100 UNIT/ML SYR SQ SCH (20:59)
[2019-12-27] MEDS: PANTOPRAZOLE SODIUM 40 MG GRANULE PKT PEG/G-TUBE SCH (21:02)
[2019-12-27] MEDS: PRAVASTATIN SODIUM 40 MG TAB PO SCH (21:09)
--- NOTE | 2019-12-27 22:58 | P.CONS ---
History of Present Illness - Reason for Consult Consult date: 12/27/19 Left breast possible abscess and PEG site infection Requesting physician: Luis A Gomez - Chief Complaint Abnormal breast ultrasound and text and infection x few days - History of Present Illness Patient is a 74-year-old female with a past medical history signifi cant for atrial fibrillation hemiplegia a retirement resident the patient was sent to the ER at [facility] 2 days ago for evaluation of left breast mass and concern for possible infection around the PEG tube site apparently the patient did have ultrasound of the breast and the day of presentation hospital with evidence of 2 cm mass or collection at the wound site with possible sinus t ract to the skin and apparently the patient did have a cultures obtained from the protective sensation positive for MRSA with the symptoms the patient was evaluated by the ER physician on arrival to the ER, the patient was afebrile the patient did have a white count of 11.2, kidney function is normal blood cultures obtained which are currently pending cultures from the PEG tube site with streptococci Galecki and MRSA, patient is currently being treated with Unasyn patient is status post biopsy of the left breast area however no purulent material was aspirated as per the nursing staff patient currently denies pain to the left breast area no nausea no vomiting no abdominal pain and no diarrhea Review of Systems Positive point has been mentioned in the HPI rest of the systems are negative Past Medical History Past Medical History: Atrial Fibrillation, Atrial Flutter, Asthma, Cancer, Heart Failure, CVA/TIA, Dementia, Diabetes Mellitus, GERD/Reflux, GI Bleed, Hyperlipidemia, Hypertension, Pneumonia, Sleep Apnea/CPAP/BIPAP Additional Past Medical History / Comment(s): Verified with [employer] papers r/t son Jose Rafael being unsure of history. Jose Rafael states he is also pt's DPOA. 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, post traumatic seizures, History of Any Multi-Drug Resistant Organisms: None Reported Past Surgical History: Breast Surgery, Cardiac Valve Replacement, Heart Cathete rization With Stent, Hysterectomy, Orthopedic Surgery, Pacemaker, Tonsillectomy Additional Past Surgical History / Comment(s): Peg tube, mechanical mitral valve 2000, polypectomy spinal cord/cyst removed, TEEs, CVNs, colonoscopies, bilateral cataract removal/lens implants, L rotator cuff repair, R femur fracture with IM hip/screw/nail, L breast lumpectomy, Past Anesthesia/Blood Transfusion Reactions: No Reported Reaction Date of Last Stent Placement:: 2006 Type of Cardiac Device: Permanent Pacemaker Device Placement Date:: 2009 Past Psychological History: Depression Additional Psychological History / Comment(s): Pt resides at [facility]. She is nonambulatory-get placed in wheelchair. She needs assist with all ADLs Pt is NPO and has a peg tube. Smoking Status: Unknown if ever smoked Past Alcohol Use History: Unable to Obtain Additional Past Alcohol Use History / Comment(s): SMOKED OFF AND ON 1960 LESS THAN A YEAR THEN QUIT Past Drug Use History: Unable to Obtain - Past Family History Father Family Medical History: GI Bleed Additional Family Medical History / Comment(s): OF BLEEDING ULCER AT AGE 64 Mother Family Medical History: Cancer, CVA/TIA Additional Family Medical History / Comment(s): HX STROKES, COLON CANCER Medications and Allergies Home Medications Medication Instructions Recorded Confirmed Type Pravastatin Sodium [Pravachol] 40 mg PEG/G-TUBE HS@209905/20/17 12/25/19 History levETIRAcetam [Keppra Oral 100 mg PEG/G-TUBE DAILY@0800 09/27/17 12/25/19 History Solution] Aspirin 81 mg PEG/G-TUBE DAILY@1700 05/30/18 12/25/19 History Metoprolol Tartrate [Lopressor] 100 mg PEG/G-TUBE BID@0800,1700 05/30/18 12/25/19 History Omeprazole Susp 2mg/Ml 20 mg PEG/G-TUBE HS@209905/30/18 12/25/19 History Acetaminophen Oral Susp [Tylenol] 650 mg PEG/G-TUBE Q6H PRN 12/25/19 12/25/19 History Apixaban [Eliquis] 2.5 mg PEG/G-TUBE BID@0800,1700 12/25/19 12/25/19 History Cetirizine HCl 10 mg PEG/G-TUBE DAILY@1700 12/25/19 12/25/19 History Cholestyramine/Aspartame 4 gm PEG/G-TUBE DAILY@0800 12/25/19 12/25/19 History [Cholestyramine Light Packet] Diltiazem Oral [Cardizem*] 30 mg PEG/G-TUBE TID@0600,1400,2200 12/25/19 12/25/19 History Feosol Liquid 220mg/5ml 330 mg PEG/G-TUBE DAILY@1700 12/25/19 12/25/19 History Gabapentin Solution 250mg/5ml 100 mg PEG/G-TUBE 12/25/19 12/25/19 History TID@0600,1400,2100 INSULIN ASPART (NovoLOG) [NovoLOG See Protocol SQ BID@0700,2130 12/25/19 12/25/19 History (formulary)] Insulin Detemir (Levemir) [Levemir] 48 unit SQ HS 12/25/19 12/25/19 History Liquacel 30 ml PEG/G-TUBE BID@1200,2100 12/25/19 12/25/19 History Magnesium Hydroxide [Milk of 7,200 mg PEG/G-TUBE DAILY PRN 12/25/19 12/25/19 History Magnesia Concentrate] Multivitamins, Thera Liquid 5 ml PO DAILY@1700 12/25/19 12/25/19 History [Theragran Liquid (formulary)] Na Phos,M-B/Na Phos,Di-Ba [Fleet 133 ml RECTAL DAILY PRN 12/25/19 12/25/19 History Adult] bisacodyL [Dulcolax] 10 mg RECTAL DAILY PRN 12/25/19 12/25/19 History hydrOXYzine HCL 25 mg PEG/G-TUBE TID@0600,1400,2200 12/25/19 12/25/19 History metFORMIN HCL [metFORMIN HCL Oral 1,000 mg PEG/G-TUBE BID@0800,1700 12/25/19 12/25/19 History Soln] Allergies Allergy/AdvReac Type Severity Reaction Status Date / Time ciprofloxacin [From Cipro] Allergy Rash/Hives Verified 12/25/19 17:12 ciprofloxacin HCl Allergy Rash/Hives Verified 11/13/20 17:12 [From Cipro] Quinolones Allergy Unknown Verified 12/25/19 17:12 Physical Exam Vitals: Vital Signs Temp Pulse Resp BP Pulse Ox 12/27/19 16:00 100 16 12/27/19 13:00 98.3 F 100 166/88 95 12/27/19 08:00 91 16 12/27/19 05:13 98.0 F 91 16 163/73 94 L 12/27/19 00:00 17 Intake and Output 12/27/19 12/27/19 12/27/19 06:59 14:59 22:59 Intake Total 250 240 360 Balance 250 240 360 Intake: Intake, IV Titration 50 Amount Ampicillin-Sulbactam 1.5 50 gm In Sodium Chloride 0.9 % 50 ml @ 100 mls/hr IVPB Q6H [facility] Rx#:[id number] Tube Feeding 200 240 360 Other: # Voids 1 1 1 Weight 81 kg GENERAL DESCRIPTION: An elderly female lying in bed, no distress. No tachypnea or accessory muscle of respiration use. HEENT: Shows Pallor , no scleral icterus. Oral mucous membrane is dry. No pharyngeal erythema or thrush NECK: Trachea central, no thyromegaly. LUNGS: Unlabored breathing. Clear to auscultation anteriorly. No wheeze or crackle. HEART: S1, S2, regular rate and rhythm. No loud murmur ABDOMEN: Soft, mild drainage from the PEG tube site, no tenderness , guarding or rigidity, no organomegaly EXTREMITIES: No edema of feet. SKIN: No rash, no masses palpable. NEUROLOGICAL: The patient is awake, alert, oriented x2, mood and affect normal. Results CBC & Chem 7: 12/27/19 04:46 12/27/19 04:46 Labs: Abnormal Lab Results - Last 24 Hours (Table) 12/27/19 12/27/19 12/27/19 Range/Units 00:16 04:46 04:46 MCHC 30.9 L (31.0-37.0) g/dL RDW 16.1 H (11.5-15.5) % BUN/Creatinine Ratio 26.67 H (12.00-20.00) Ratio Glucose 189 H (70-110) mg/dL POC Glucose (mg/dL) 150 H (75-99) mg/dL Albumin 3.40 L (3.80-4.90) g/dL Albumin/Globulin Ratio 1.17 L (1.60-3.17) g/dL 12/27/19 12/27/19 12/27/19 Range/Units 06:04 11:48 17:54 MCHC (31.0-37.0) g/dL RDW (11.5-15.5) % BUN/Creatinine Ratio (12.00-20.00) Ratio Glucose (70-110) mg/dL POC Glucose (mg/dL) 132 H 204 H 254 H (75-99) mg/dL Albumin (3.80-4.90) g/dL Albumin/Globulin Ratio (1.60-3.17) g/dL Microbiology - Last 24 Hours (Table) 12/25/19 20:49 Blood Culture - Preliminary Blood No Growth after 48 hours Assessment and Plan Assessment: 1-patient with abnormal left breast ultrasound with concern for possible mass versus abscess in this patient currently with no fever or significantly elevated white count status post biopsy of that area in the purulent drainage will wait for the biopsy to be finalize 2-PEG tube site drainage and culture positive for Streptococcus and MRSA with concern for mild cellulitis (1) Abdominal wall cellulitis Current Visit: Yes Status: Acute Code(s): L03.311 - CELLULITIS OF ABDOMINAL WALL SNOMED Code(s): 32356603 (2) Left breast mass Current Visit: Yes Status: Acute Code(s): N63.20 - UNSPECIFIED LUMP IN THE LEFT BREAST, UNSPECIFIED QUADRANT SNOMED Code(s): 29287381 Plan: 1-discontinue Unasyn 2-Vancomycin pharmacy to dose target trough of 15 while watching kidney func tion and Vanco trough closely 3-local care with triad cream We will follow on clinical condition and cultures to further adjust medication if needed Thank you for this consultation will follow this patient with you Time with Patient: Greater than 30
[2019-12-28 00:12] LABS: Glucose,Whole Blood 254 mg/dL (75-99)
[2019-12-28] MEDS: INSULIN ASPART (NovoLOG) 100 UNIT/ML VIAL SQ SCH ×4 (00:14→18:01)
[2019-12-28] MEDS: AMPICILLIN-SULBACTAM 1.5 GM in SODIUM CHLORIDE 0.9% 50 ML IVPB SCH ×4 (02:41→19:52)
[2019-12-28] MEDS: hydrOXYzine HCL 25 MG TAB PEG/G-TUBE SCH ×3 (05:09→19:48)
[2019-12-28 05:17] LABS: Anisocytosis Slight; Basophils % (A) 0 %; Eosinophils # (A) 0.3 k/uL (0-0.7); Eosinophils % (A) 3 %; HCT 37.3 % (34.0-46.0); HGB 11.3 gm/dL (11.4-16.0); Hypochromasia Moderate; Lymphocytes # (A) 2.1 k/uL (1.0-4.8); Lymphocytes % (A) 21 %; MCH 25.3 pg (25.0-35.0); MCHC 30.2 g/dL (31.0-37.0); MCV 83.6 fL (80.0-100.0); Mean Platelet Volume 9.5; Monocytes # (A) 0.5 k/uL (0-1.0); Monocytes % (A) 5 %; Neutrophils % (A) 70 %; Platelet Count 240 k/uL (150-450); RBC 4.47 m/uL (3.80-5.40); RDW 16.1 % (11.5-15.5); WBC 10.1 k/uL (3.8-10.6)
[2019-12-28 05:25] LABS: Glucose,Whole Blood 249 mg/dL (75-99)
[2019-12-28] MEDS: DILTIAZEM ORAL 30 MG TAB PEG/G-TUBE SCH ×3 (05:28→21:48)
[2019-12-28] MEDS: GABAPENTIN PO SCH ×3 (06:06→19:53)
--- NOTE | 2019-12-28 08:24 | P.PN ---
Subjective Progress Note Date: 12/28/19 Patient seen and examined at bedside. No acute events. Objective - Vital Signs Vital signs: Vital Signs Temp 99.1 F 12/28/19 05:00 Pulse 104 H 12/28/19 05:00 Resp 20 12/28/19 05:00 BP 160/81 12/28/19 05:00 Pulse Ox 99 12/28/19 05:00 Intake & Output 12/27/19 12/28/19 12/28/19 18:59 06:59 18:59 Intake Total 600 594 Balance 600 594 Weight 78 kg Intake: Tube Feeding 600 594 Other: # Voids 1 0 - Constitutional General appearance: Present: cooperative, no acute distress - Gastrointestinal Gastrointestinal Comment(s): Soft, nontender, nondistended, no rebound, no guarding, PEG tube in place - Additional findings Additional findings: Left chest biopsy site clean, dry and intact with sutures in place - Labs CBC & Chem 7: 12/28/19 04:43 12/27/19 04:46 Labs: Abnormal Lab Results - Last 24 Hours (Table) 12/27/19 12/27/19 12/27/19 Range/Units 04:46 11:48 17:54 Hgb (11.4-16.0) gm/dL MCHC (31.0-37.0) g/dL RDW (11.5-15.5) % BUN/Creatinine Ratio 26.67 H (12.00-20.00) Ratio Glucose 189 H (70-110) mg/dL POC Glucose (mg/dL) 204 H 254 H (75-99) mg/dL Albumin 3.40 L (3.80-4.90) g/dL Albumin/Globulin Ratio 1.17 L (1.60-3.17) g/dL 12/28/19 12/28/19 12/28/19 Range/Units 00:10 04:43 05:23 Hgb 11.3 L (11.4-16.0) gm/dL MCHC 30.2 L (31.0-37.0) g/dL RDW 16.1 H (11.5-15.5) % BUN/Creatinine Ratio (12.00-20.00) Ratio Glucose (70-110) mg/dL POC Glucose (mg/dL) 254 H 249 H (75-99) mg/dL Albumin (3.80-4.90) g/dL Albumin/Globulin Ratio (1.60-3.17) g/dL Microbiology - Last 24 Hours (Table) 12/25/19 20:49 Blood Culture - Preliminary Blood No Growth after 48 hours Assessment and Plan Plan: 74-year-old female status post biopsy of left breast lesion. We'll await pathology results prior to making any further surgical decisions.
[2019-12-28 09:33] LABS: African American GFR (CKD) 99.6 (60.0-200.0); Albumin 3.3 g/dL (3.80-4.90); Albumin/Globulin Ratio 1.14 (1.60-3.17); Anion Gap 8.3 mmol/L (4.00-12.00); Calcium 9.5 mg/dL (8.7-10.3); Carbon Dioxide 26.7 mmol/L (21.6-31.8); Globulin 2.9 g/dL (1.6-3.3); Potassium 4.3 mmol/L (3.5-5.5); Total Bilirubin 0.3 mg/dL (0.2-1.2); Total Protein 6.2 g/dL (6.2-8.2)
[2019-12-28] MEDS: APIXABAN 2.5 MG TABLET PEG/G-TUBE SCH ×2 (10:30→18:01)
[2019-12-28] MEDS: metFORMIN 500 MG TAB PEG/G-TUBE SCH ×2 (10:31→18:01)
[2019-12-28] MEDS: METOPROLOL TARTRATE 50 MG TAB PEG/G-TUBE SCH ×2 (10:31→18:02)
[2019-12-28] MEDS: levETIRAcetam ORAL SOLN 500 MG/5 ML CUP PEG/G-TUBE SCH (10:31)
[2019-12-28] MEDS: CHOLESTYRAMINE (WITH SUGAR) 4 GM PACKET PEG/G-TUBE SCH (10:31)
[2019-12-28] MEDS: MULTIVITAMINS, THERA LIQUID 237 ML BOTTLE PO SCH (10:32)
[2019-12-28 12:13] LABS: Glucose,Whole Blood 310 mg/dL (75-99)
--- NOTE | 2019-12-28 17:01 | PN ---
PROGRESS NOTE This is a white female status post breast biopsy to rule out inflammatory breast cancer. Her mental status is fairly stable. She is seen by Infectious Disease whose diagnosis was abdominal wall cellulitis, left breast mass. To continue Unasyn and vancomycin, Pharmacy to dose. Watch kidney function. Local care with wound care. Await for breast biopsy results. Continue vancomycin. Wait for Dr. Chavira's recommendations. She is alert and appropriate. CARDIOVASCULAR: S1, S2. Lungs clear. GI soft. Hematology negative Homans. She has a PEG tube in her abdomen. PLAN: As above. MMODL / IJN: [id number] /
[2019-12-28 17:56] LABS: Glucose,Whole Blood 242 mg/dL (75-99)
[2019-12-28] MEDS: FERROUS SULFATE ORAL ELIXIR 300 MG/5 ML CUP PEG/G-TUBE SCH (18:01)
[2019-12-28] MEDS: ASPIRIN 81 MG PEG/G-TUBE SCH (18:01)
[2019-12-28] MEDS: LORATADINE 10 MG TAB PEG/G-TUBE SCH (18:01)
[2019-12-28] MEDS: PANTOPRAZOLE SODIUM 40 MG GRANULE PKT PEG/G-TUBE SCH (19:49)
[2019-12-28] MEDS: PRAVASTATIN SODIUM 40 MG TAB PO SCH (19:49)
[2019-12-28] MEDS ORDERED: VANCOMYCIN IV PER PHARMACY 1 EACH MISC MISCELLANE PRN (21:39)
[2019-12-28] MEDS: INSULIN DETEMIR (LEVEMIR) 100 UNIT/ML SYR SQ SCH (21:48)
[2019-12-28] MEDS: VANCOMYCIN 1,500 MG in SODIUM CHLORIDE 0.9% 250 ML IVPB SCH (22:31)
--- NOTE | 2019-12-28 22:38 | PN ---
PROGRESS NOTE DATE OF SERVICE: 12/28/2019 REASON FOR FOLLOWUP: 1. Possible left breast mass. 2. PEG tube site infection. INTERVAL HISTORY: Patient is currently afebrile. The patient is slightly more sleepy and lethargic today, breathing comfortably. No chest pain or cough. No abdominal pain or diarrhea. PHYSICAL EXAMINATION: Blood pressure 120/75 with a pulse of 74, temperature 98.2. He is 96% on room air. General description: The patient is an elderly female lying in bed in no distress. Respiratory system: Unlabored breathing, clear to auscultation anteriorly. Heart S1, S2. Regular rate and rhythm. Abdomen soft, no tenderness. LABS: Hemoglobin 11.3, white count 10.1, creatinine 0.7. DIAGNOSTIC IMPRESSION AND PLAN: 1. Patient with PEG tube site cellulitis with recent culture positive for MRSA and Enterococcus. Currently, the patient is covered with vancomycin. Local care with Triad cream. 2. Left breast mass status post biopsy. Will wait for the biopsy to finalize. Clinically not behaving as an abscess. MMODL / IJN: [id number] /
[2019-12-29 00:18] LABS: Glucose,Whole Blood 225 mg/dL (75-99)
[2019-12-29] MEDS: INSULIN ASPART (NovoLOG) 100 UNIT/ML VIAL SQ SCH ×4 (00:46→17:12)
[2019-12-29] MEDS: hydrOXYzine HCL 25 MG TAB PEG/G-TUBE SCH ×3 (05:45→20:06)
[2019-12-29] MEDS: DILTIAZEM ORAL 30 MG TAB PEG/G-TUBE SCH ×3 (05:45→20:06)
[2019-12-29] MEDS: GABAPENTIN PO SCH ×3 (05:46→20:06)
[2019-12-29 05:52] LABS: Glucose,Whole Blood 189 mg/dL (75-99)
[2019-12-29] MEDS: MULTIVITAMINS, THERA LIQUID 237 ML BOTTLE PO SCH (09:04)
[2019-12-29] MEDS: CHOLESTYRAMINE (WITH SUGAR) 4 GM PACKET PEG/G-TUBE SCH (09:05)
[2019-12-29] MEDS: levETIRAcetam ORAL SOLN 500 MG/5 ML CUP PEG/G-TUBE SCH (09:05)
[2019-12-29] MEDS: APIXABAN 2.5 MG TABLET PEG/G-TUBE SCH ×2 (09:06→17:11)
[2019-12-29] MEDS: metFORMIN 500 MG TAB PEG/G-TUBE SCH ×2 (09:06→17:11)
[2019-12-29] MEDS: METOPROLOL TARTRATE 50 MG TAB PEG/G-TUBE SCH ×2 (09:07→17:12)
[2019-12-29 11:41] LABS: Glucose,Whole Blood 149 mg/dL (75-99)
[2019-12-29] MEDS: VANCOMYCIN 1,500 MG in SODIUM CHLORIDE 0.9% 250 ML IVPB SCH (14:09)
[2019-12-29 17:03] LABS: Glucose,Whole Blood 130 mg/dL (75-99)
[2019-12-29] MEDS: ASPIRIN 81 MG PEG/G-TUBE SCH (17:12)
[2019-12-29] MEDS: FERROUS SULFATE ORAL ELIXIR 300 MG/5 ML CUP PEG/G-TUBE SCH (17:12)
[2019-12-29] MEDS: LORATADINE 10 MG TAB PEG/G-TUBE SCH (17:12)
[2019-12-29] MEDS: PRAVASTATIN SODIUM 40 MG TAB PO SCH (20:06)
[2019-12-29] MEDS: PANTOPRAZOLE SODIUM 40 MG GRANULE PKT PEG/G-TUBE SCH (20:06)
[2019-12-29 20:51] LABS: Glucose,Whole Blood 127 mg/dL (75-99)
[2019-12-29] MEDS: INSULIN DETEMIR (LEVEMIR) 100 UNIT/ML SYR SQ SCH (20:55)
[2019-12-30 00:14] LABS: Glucose,Whole Blood 115 mg/dL (75-99)
[2019-12-30] MEDS: INSULIN ASPART (NovoLOG) 100 UNIT/ML VIAL SQ SCH ×5 (00:14→23:43)
--- NOTE | 2019-12-30 00:36 | PN ---
PROGRESS NOTE DATE OF SERVICE: 12/29/2019 REASON FOR FOLLOWUP: 1. Left breast mass and question of abscess. 2. PEG tube site cellulitis. INTERVAL HISTORY: The patient is currently afebrile, slightly sleepy and lethargic today. Denies any chest pain or cough. No abdominal pain and no diarrhea reported. PHYSICAL EXAMINATION: Blood pressure 138/82 with a pulse of 70, temperature 98.5. She is 96% on room air. General description is an elderly female lying in bed in no distress. RESPIRATORY SYSTEM: Unlabored breathing, clear to auscultation anteriorly. HEART: S1, S2. Regular rate and rhythm. ABDOMEN: Soft, no tenderness. LABS: No new labs have been obtained today. The left breast biopsy came back positive ulcer with acute and chronic inflammation, negative for malignancy. DIAGNOSTIC IMPRESSION AND PLAN: 1. The patient admitted to the hospital with left breast mass, status post biopsy with no evidence of any purulence and no definite cellulitis. 2. PEG tube site cellulitis. Culture positive for MRSA. Covered with vancomycin and finish therapy with oral antibiotic on discharge. Continue with supportive care. MMODL / IJN: [id number] /
[2019-12-30] MEDS: GABAPENTIN PO SCH ×3 (06:04→20:00)
[2019-12-30 06:10] LABS: Glucose,Whole Blood 138 mg/dL (75-99)
[2019-12-30] MEDS: DILTIAZEM ORAL 30 MG TAB PEG/G-TUBE SCH ×3 (06:10→19:59)
[2019-12-30] MEDS: VANCOMYCIN 1,500 MG in SODIUM CHLORIDE 0.9% 250 ML IVPB SCH ×2 (06:10→20:00)
[2019-12-30] MEDS: hydrOXYzine HCL 25 MG TAB PEG/G-TUBE SCH ×3 (06:10→19:59)
[2019-12-30 07:19] LABS: Glucose,Whole Blood 138 mg/dL (75-99)
[2019-12-30] MEDS: CHOLESTYRAMINE (WITH SUGAR) 4 GM PACKET PEG/G-TUBE SCH ×2 (08:53→09:09)
[2019-12-30] MEDS: APIXABAN 2.5 MG TABLET PEG/G-TUBE SCH ×2 (08:54→17:11)
[2019-12-30] MEDS: levETIRAcetam ORAL SOLN 500 MG/5 ML CUP PEG/G-TUBE SCH (08:55)
[2019-12-30] MEDS: MULTIVITAMINS, THERA LIQUID 237 ML BOTTLE PO SCH (08:55)
[2019-12-30] MEDS: metFORMIN 500 MG TAB PEG/G-TUBE SCH ×2 (08:55→17:11)
[2019-12-30] MEDS: METOPROLOL TARTRATE 50 MG TAB PEG/G-TUBE SCH ×2 (08:55→17:11)
[2019-12-30 09:16] LABS: African American GFR (CKD) 99.6 (60.0-200.0)
[2019-12-30 11:25] LABS: Glucose,Whole Blood 137 mg/dL (75-99)
--- NOTE | 2019-12-30 14:02 | P.PN ---
Subjective Progress Note Date: 12/30/19 Pt seen and examined. No acute events. Objective - Vital Signs Vital signs: Vital Signs Temp 98.8 F 12/30/19 12:22 Pulse 64 12/30/19 12:22 Resp 16 12/30/19 12:22 BP 137/82 12/30/19 12:22 Pulse Ox 98 12/30/19 12:22 Intake & Output 12/29/19 12/30/19 12/30/19 18:59 06:59 18:59 Intake Total 313 648 Balance 313 648 Weight 79 kg 81 kg Intake: Tube Feeding 313 648 Other: Voiding Method Diaper Diaper Diaper Incontinent Incontinent Incontinent - Constitutional General appearance: Present: cooperative, no acute distress - Additional findings Additional findings: Left breast incision site C/D/I - Labs CBC & Chem 7: 12/28/19 04:43 12/30/19 05:45 Labs: Abnormal Lab Results - Last 24 Hours (Table) 12/29/19 12/29/19 12/30/19 Range/Units 16:56 20:49 00:12 POC Glucose (mg/dL) 130 H 127 H 115 H (75-99) mg/dL 12/30/19 12/30/19 12/30/19 Range/Units 06:03 07:17 11:21 POC Glucose (mg/dL) 138 H 138 H 137 H (75-99) mg/dL Microbiology - Last 24 Hours (Table) 12/25/19 20:49 Blood Culture - Preliminary Blood No Growth after 96 hours Assessment and Plan Plan: 74-year-old female status post biopsy of left breast lesion. Path reviewed - ulcer present with no evidence of malignancy. Continue medical management and c ontinue abx per ID. No plan for further surgical intervention.
--- NOTE | 2019-12-30 16:39 | PN ---
PROGRESS NOTE A 74-year-old white female. Patient is seen. No acute events. PHYSICAL EXAMINATION: Temperature 98.8, pulse 64, respiratory rate 16 to 18, blood pressure 130s/80s, O2 is 98. States she is cold. She is talking normal. She looks her normal self. CARDIOVASCULAR: S1, S2. She has a PEG tube coming out of her abdomen. For which Dr. Chavira is seeing her breast lesion. Path reviewed, present with no evidence of malignancy. Continue with current antibiotics. No surgical recommendations. Negative for malignancy, acute on chronic inflammation, status post biopsy. No evidence of any purulence or cellulitis. PEG tube site is positive for cellulitis and MRSA. She is covered with vancomycin, finish with oral antibiotics on discharge. Continue supportive care. PROGNOSIS: Guarded. MMODL / IJN: [id number] /
--- NOTE | 2019-12-30 16:42 | P.PN ---
Progress Note - Text Progress Note Date: 12/30/19 Chart review performed. Pathology is negative. Pending discussing with Surgeon. We'll follow up in the a.m.
[2019-12-30 17:07] LABS: Glucose,Whole Blood 144 mg/dL (75-99)
[2019-12-30] MEDS: LORATADINE 10 MG TAB PEG/G-TUBE SCH (17:11)
[2019-12-30] MEDS: ASPIRIN 81 MG PEG/G-TUBE SCH (17:11)
[2019-12-30] MEDS: FERROUS SULFATE ORAL ELIXIR 300 MG/5 ML CUP PEG/G-TUBE SCH (17:12)
[2019-12-30] MEDS: PANTOPRAZOLE SODIUM 40 MG GRANULE PKT PEG/G-TUBE SCH (19:59)
[2019-12-30] MEDS: PRAVASTATIN SODIUM 40 MG TAB PO SCH (19:59)
[2019-12-30 20:19] LABS: Glucose,Whole Blood 144 mg/dL (75-99)
[2019-12-30] MEDS: INSULIN DETEMIR (LEVEMIR) 100 UNIT/ML SYR SQ SCH (20:27)
[2019-12-30 23:43] LABS: Glucose,Whole Blood 132 mg/dL (75-99)
--- NOTE | 2019-12-31 00:08 | PN ---
PROGRESS NOTE DATE OF SERVICE: 12/30/2019 REASON FOR FOLLOWUP: 1. Left breast wound question of abscess. 2. PEG tube site cellulitis with MRSA. INTERVAL HISTORY: The patient is currently afebrile. The patient is breathing comfortably, slightly more awake and alert today. . Denies any chest pain or cough. No abdominal pain and no diarrhea has been reported. PHYSICAL EXAMINATION: Blood pressure 137/82 with a pulse of 64, temperature 98.8. She is 98% on room air. General description is an elderly female lying in bed in no distress. RESPIRATORY SYSTEM: Unlabored breathing, clear to auscultation anteriorly. HEART: S1, S2. Regular rate and rhythm. ABDOMEN: Soft. PEG tube site with minimal erythema. No drainage was noticed. LABS: No new labs have been obtained today. DIAGNOSTIC IMPRESSION AND PLAN: 1. Patient with left breast status post biopsy, report came back negative for any malignancy and there was no purulent material. Oncology is following the patient. 2. Patient with PEG tube site cellulitis culture with MRSA. The patient is currently on vancomycin. Local care with Triad cream to keep the area dry and will monitor clinical course closely. MMODL / IJN: [id number] /
[2019-12-31] MEDS: GABAPENTIN PO SCH ×3 (05:58→22:00)
[2019-12-31] MEDS: hydrOXYzine HCL 25 MG TAB PEG/G-TUBE SCH ×3 (06:15→22:00)
[2019-12-31] MEDS: DILTIAZEM ORAL 30 MG TAB PEG/G-TUBE SCH ×3 (06:16→22:00)
[2019-12-31 06:23] LABS: Glucose,Whole Blood 137 mg/dL (75-99)
[2019-12-31] MEDS: INSULIN ASPART (NovoLOG) 100 UNIT/ML VIAL SQ SCH ×3 (06:26→16:41)
[2019-12-31 07:08] LABS: Glucose,Whole Blood 141 mg/dL (75-99)
[2019-12-31] MEDS: levETIRAcetam ORAL SOLN 500 MG/5 ML CUP PEG/G-TUBE SCH (10:03)
[2019-12-31] MEDS: METOPROLOL TARTRATE 50 MG TAB PEG/G-TUBE SCH ×3 (10:03→16:40)
[2019-12-31] MEDS: metFORMIN 500 MG TAB PEG/G-TUBE SCH ×3 (10:05→16:40)
[2019-12-31] MEDS: CHOLESTYRAMINE (WITH SUGAR) 4 GM PACKET PEG/G-TUBE SCH (10:06)
[2019-12-31] MEDS: MULTIVITAMINS, THERA LIQUID 237 ML BOTTLE PO SCH (10:06)
[2019-12-31] MEDS: APIXABAN 2.5 MG TABLET PEG/G-TUBE SCH ×3 (10:06→16:40)
[2019-12-31 11:28] LABS: Glucose,Whole Blood 144 mg/dL (75-99)
[2019-12-31] MEDS ORDERED: VANCOMYCIN TROUGH DUE 1 EACH MISC MISCELLANE ONE (12:45)
[2019-12-31 13:47] LABS: African American GFR (CKD) >90 (>60 ml/min/1.73 sqM); Non-African American GFR(CKD) >90 (>60 ml/min/1.73 sqM)
[2019-12-31] MEDS: HYDROPHILIC CREAM 180 GM TUBE TOPICAL SCH (14:15)
[2019-12-31] MEDS: VANCOMYCIN 1,500 MG in SODIUM CHLORIDE 0.9% 250 ML IVPB SCH (15:17)
[2019-12-31] MEDS: ASPIRIN 81 MG PEG/G-TUBE SCH ×2 (16:28→16:40)
[2019-12-31] MEDS: FERROUS SULFATE ORAL ELIXIR 300 MG/5 ML CUP PEG/G-TUBE SCH (16:29)
[2019-12-31] MEDS: LORATADINE 10 MG TAB PEG/G-TUBE SCH ×2 (16:29→16:40)
[2019-12-31 16:42] LABS: Glucose,Whole Blood 130 mg/dL (75-99)
--- NOTE | 2019-12-31 17:20 | PN ---
PROGRESS NOTE This patient is a 74-year-old with a PEG tube, MRSA, abscess of the left breast, cellulitis of the left breast. Apparently the breast biopsy is negative. No abdominal pain or diarrhea today. Vital signs appear stable. Blood pressure 130s over 80s, pulse in the 60s, temperature 98.8, oxygenation 98. CARDIOVASCULAR: S1, S2. ABDOMEN: Soft. PEG tube in place. ASSESSMENT: Status post breast biopsy, negative for malignancy. Oncology is following. PEG insertion with MRSA, currently on vancomycin. Local care with Triad cream to keep the area dry. Possible discharge home when cleared by Oncology. To continue with vancomycin at the [facility] in the next 24 hours. Please see further orders. Possibly tomorrow for discharge. MMODL / IJN: [id number] /
[2019-12-31 19:52] LABS: Glucose,Whole Blood 130 mg/dL (75-99)
[2019-12-31] MEDS: INSULIN DETEMIR (LEVEMIR) 100 UNIT/ML SYR SQ SCH (22:00)
[2019-12-31] MEDS: PANTOPRAZOLE SODIUM 40 MG GRANULE PKT PEG/G-TUBE SCH (22:00)
[2019-12-31] MEDS: PRAVASTATIN SODIUM 40 MG TAB PO SCH (22:00)
--- NOTE | 2019-12-31 23:54 | PN ---
PROGRESS NOTE DATE OF SERVICE: 12/31/2019 REASON FOR FOLLOWUP: 1. PEG tube site cellulitis. 2. Left breast mass. INTERIM HISTORY: The patient is afebrile. The patient remains to be sleepy, lethargic and is unable to provide any history. No vomiting, diarrhea or any other changes reported by the nursing staff. Tolerating her tube feeds. PHYSICAL EXAMINATION: Blood pressure 107/62 with a pulse of 63, temperature 98.4. She is 96% on room air. General description is an elderly female lying in bed in no distress. RESPIRATORY SYSTEM: Unlabored breathing, clear to auscultation anteriorly. HEART: S1, S2. Regular rate and rhythm. ABDOMEN: Soft, no tenderness. Left breast biopsy site revealed no cellulitis. LABS: No new labs have been obtained today. Blood culture negative. DIAGNOSTIC IMPRESSION AND PLAN: 1. Patient admitted to the hospital with concern for left breast mass, status post biopsy did not show any evidence of malignancy or any evidence of any abscess. 2. Patient with PEG tube site cellulitis. Culture positive for MRSA. Patient is covered with vancomycin. Local care with Triad cream. Will finish therapy with oral antibiotics. Continue supportive care. MMODL / IJN: [id number] /
[2020-01-01 00:28] LABS: Glucose,Whole Blood 132 mg/dL (75-99)
[2020-01-01] MEDS: INSULIN ASPART (NovoLOG) 100 UNIT/ML VIAL SQ SCH ×3 (00:42→12:25)
[2020-01-01] MEDS: GABAPENTIN PO SCH ×2 (06:14→14:30)
[2020-01-01] MEDS: DILTIAZEM ORAL 30 MG TAB PEG/G-TUBE SCH ×2 (06:17→14:34)
[2020-01-01] MEDS: hydrOXYzine HCL 25 MG TAB PEG/G-TUBE SCH ×2 (06:17→14:33)
[2020-01-01] MEDS: VANCOMYCIN 1,500 MG in SODIUM CHLORIDE 0.9% 250 ML IVPB SCH (06:17)
[2020-01-01 06:32] LABS: Glucose,Whole Blood 136 mg/dL (75-99)
[2020-01-01] MEDS: metFORMIN 500 MG TAB PEG/G-TUBE SCH ×2 (07:19→16:21)
[2020-01-01] MEDS: METOPROLOL TARTRATE 50 MG TAB PEG/G-TUBE SCH ×2 (07:19→16:21)
[2020-01-01] MEDS: MULTIVITAMINS, THERA LIQUID 237 ML BOTTLE PO SCH (07:20)
[2020-01-01] MEDS: CHOLESTYRAMINE (WITH SUGAR) 4 GM PACKET PEG/G-TUBE SCH (07:20)
[2020-01-01] MEDS: APIXABAN 2.5 MG TABLET PEG/G-TUBE SCH ×2 (07:20→16:21)
[2020-01-01] MEDS: levETIRAcetam ORAL SOLN 500 MG/5 ML CUP PEG/G-TUBE SCH (07:20)
[2020-01-01] MEDS: HYDROPHILIC CREAM 180 GM TUBE TOPICAL SCH (07:21)
[2020-01-01 08:13] LABS: Anisocytosis Slight; Basophils # (A) 0.1 k/uL (0-0.2); Basophils % (A) 1 %; Eosinophils # (A) 0.7 k/uL (0-0.7); Eosinophils % (A) 6 %; HCT 30.9 % (34.0-46.0); Hypochromasia Moderate; Lymphocytes # (A) 2.1 k/uL (1.0-4.8); Lymphocytes % (A) 17 %; MCH 26.8 pg (25.0-35.0); MCHC 31.9 g/dL (31.0-37.0); Mean Platelet Volume 9.1; Monocytes # (A) 0.5 k/uL (0-1.0); Monocytes % (A) 4 %; Neutrophils # (A) 8.9 k/uL (1.3-7.7); Neutrophils % (A) 72 %; Platelet Count 236 k/uL (150-450); RBC 3.68 m/uL (3.80-5.40); WBC 12.4 k/uL (3.8-10.6)
[2020-01-01 08:15] LABS: HGB 9.8 gm/dL (11.4-16.0)
[2020-01-01 11:57] LABS: Glucose,Whole Blood 114 mg/dL (75-99)
[2020-01-01 12:44] VITALS: BP 144/65; PULSE 62; RESP 18; TEMP 97.8
--- NOTE | 2020-01-01 12:51 | DS ---
DISCHARGE SUMMARY ASSESSMENT: Abdominal wall cellulitis, breast, left breast mass/abscess. Skin biopsy is negative for cancer. IV antibiotics were given, wound infection around the PEG tube was treated with vancomycin. Hypertension was controlled. No medication was given. Accu-Chek protocol a.c. and at bedtime. Hydrophilic cream, triad cream applied around the PEG tube daily. Vancomycin 1500 mg IV piggyback q, 16 hours, Pravachol 40 mg daily, Keppra oral solution 100 mg PEG tube daily, Lopressor 100 mg PEG tube b.i.d., aspirin 81 mg daily, omeprazole 2 mg/mL 20 mg PEG tube at night. Fleet enema rectal daily p.r.n., Dulcolax 10 mg rectal daily p.r.n., metformin 1000 PEG tube b.i.d., hydralazine 25 mg PEG tube t.i.d., Cardizem 30 mg PEG tube t.i.d., Tylenol 650 PEG tube daily q.6 hours p.r.n. CONDITION: Stable. PROGNOSIS: Guarded. Ambulate as tolerated. Diet per PEG tube. Gabapentin solution 250 mg per 5 mL 100 mg PEG to t.i.d., Cardizem 30 mg PEG tube t.i.d., hydralazine 25 mg PEG tube t.i.d., Eliquis 30 mL per PEG tube b.i.d. Eliquis 2.5 mg PEG tube b.i.d., Accu-Chek protocol q.i.d., multivitamin daily, Levemir 48 units subcu at bedtime, Feosol liquid 220 mg per 5 mL 330 mg PEG tube daily, cholestyramine 4 g per PEG tube daily, Cetirizine 10 mg daily, Milk of Magnesia 7200 mg PEG tube p.r.n. for constipation. Please see further orders. Condition stable. Prognosis guarded. Discharge back to the [facility]. MMODL / IJN: [id number] /
[2020-01-01 13:35] VITALS: BMI 29.9
--- NOTE | 2020-01-01 14:22 | P.PN ---
Progress Note - Text Progress Note Date: 12/31/19 D/W surgery. No concern for malignancy at present. Onc consult not required. Will cancel same
[2020-01-01 15:17] LABS: African American GFR (CKD) 104.8 (60.0-200.0); Albumin 3.2 g/dL (3.80-4.90); Albumin/Globulin Ratio 1.33 (1.60-3.17); Anion Gap 6.6 mmol/L (4.00-12.00); BUN/Creat Ratio 41.67 Ratio (12.00-20.00); Calcium 8.8 mg/dL (8.7-10.3); Carbon Dioxide 27.4 mmol/L (21.6-31.8); Globulin 2.4 g/dL (1.6-3.3); Non-African American GFR(CKD) 90.4 (60.0-200.0); Total Bilirubin 0.2 mg/dL (0.3-1.2); Total Protein 5.6 g/dL (6.2-8.2)
--- NOTE | 2020-01-01 15:58 | PN ---
PROGRESS NOTE DATE OF SERVICE: 01/01/2020 REASON FOR FOLLOWUP: PEG tube site cellulitis MRSA. INTERVAL HISTORY: The patient is currently afebrile. The patient is breathing comfortably. No chest pain or cough. No nausea. No vomiting. No abdominal pain or diarrhea. PHYSICAL EXAMINATION: Blood pressure 144/65, pulse of 62, temperature 97.8. She is 95% on room air. General description is an elderly female lying in bed in no distress. RESPIRATORY SYSTEM: Unlabored breathing. Clear to auscultation anteriorly. HEART: S1, S2. Regular rate and rhythm. ABDOMEN: Soft. No tenderness. LABS: Hemoglobin 9.8, white count 12.4. Blood culture negative. DIAGNOSTIC IMPRESSION AND PLAN: Patient with left breast mass, status post biopsy. There was no evidence of any abscess at the time of drainage. The patient also has PEG tube site cellulitis. Cultures were positive for MRSA resistant to Bactrim. Clinically responding to the vancomycin. Will finish therapy with oral, though local care with Triad cream. Plan of care was discussed with the admitting physician. MMODL / IJN: [id number] /
[2020-01-01] MEDS: LORATADINE 10 MG TAB PEG/G-TUBE SCH (16:21)
[2020-01-01] MEDS: FERROUS SULFATE ORAL ELIXIR 300 MG/5 ML CUP PEG/G-TUBE SCH (16:21)
[2020-01-01] MEDS: ASPIRIN 81 MG PEG/G-TUBE SCH (16:21)
== END 2020-01-01 16:40 | DRG 584 ==
LOC: EEVIPCON 16:13 → EC 16:13 → 6NMEDSUR 19:43 → OBSVTOIN 12-28 08:11
PROVIDERS: ADMIT Family Medicine; ATTEND Family Medicine
PROC: 3E0G76Z Introduction of Nutritional Substance into Upper GI, Via Natural or Artificial Opening (ICD-10-PCS; 2019-12-26)
PROC: 0HBU0ZX Excision of Left Breast, Open Approach, Diagnostic (ICD-10-PCS; principal; 2019-12-27)
DX: N63.20 Unspecified lump in the left breast, unspecified quadrant (principal); K94.22 Gastrostomy infection; L03.311 Cellulitis of abdominal wall; I69.354 Hemiplegia and hemiparesis following cerebral infarction affecting left non-dominant side; I48.92 Unspecified atrial flutter; Z20.828 Contact with and (suspected) exposure to other viral communicable diseases; F03.90 Unspecified dementia, unspecified severity, without behavioral disturbance, psychotic disturbance, mood disturbance, and anxiety; I50.9 Heart failure, unspecified; I11.0 Hypertensive heart disease with heart failure; Z99.81 Dependence on supplemental oxygen; E11.9 Type 2 diabetes mellitus without complications; I48.91 Unspecified atrial fibrillation; Z79.4 Long term (current) use of insulin; K21.9 Gastro-esophageal reflux disease without esophagitis; G47.30 Sleep apnea, unspecified; R13.10 Dysphagia, unspecified; G43.909 Migraine, unspecified, not intractable, without status migrainosus; R15.9 Full incontinence of feces; E78.5 Hyperlipidemia, unspecified; J45.909 Unspecified asthma, uncomplicated; F32.9 Major depressive disorder, single episode, unspecified; I69.391 Dysphagia following cerebral infarction; B95.62 Methicillin resistant Staphylococcus aureus infection as the cause of diseases classified elsewhere; K59.00 Constipation, unspecified; Y83.2 Surgical operation with anastomosis, bypass or graft as the cause of abnormal reaction of the patient, or of later complication, without mention of misadventure at the time of the procedure; Z71.3 Dietary counseling and surveillance; Z79.01 Long term (current) use of anticoagulants; Z79.82 Long term (current) use of aspirin; Z79.899 Other long term (current) drug therapy; Z87.19 Personal history of other diseases of the digestive system; Z87.891 Personal history of nicotine dependence; Z90.710 Acquired absence of both cervix and uterus; Z87.01 Personal history of pneumonia (recurrent); Z87.440 Personal history of urinary (tract) infections; Z95.5 Presence of coronary angioplasty implant and graft; Z95.2 Presence of prosthetic heart valve; Z86.010 Personal history of colon polyps; Z98.890 Other specified postprocedural states; Z98.42 Cataract extraction status, left eye; Z98.41 Cataract extraction status, right eye; Z96.1 Presence of intraocular lens; Z87.81 Personal history of (healed) traumatic fracture; Z96.7 Presence of other bone and tendon implants; Z88.1 Allergy status to other antibiotic agents; Z88.8 Allergy status to other drugs, medicaments and biological substances; Z83.79 Family history of other diseases of the digestive system; Z80.0 Family history of malignant neoplasm of digestive organs; Z82.3 Family history of stroke
CPT/HCPCS: 36415; 80053; 80202; 82565; 85025; 85652; 86140; 87040; 87635; 88305; 99284

== ENCOUNTER 2020-03-05 20:15 | Inpatient (IN) | payer MEDICARE, OTHER ==
[2020-03-05] MEDS ORDERED: PIPERACILLIN-TAZOBACTAM 3.375 GM in SODIUM CHLORIDE 0.9% 100 ML IVPB STA (20:33)
--- NOTE | 2020-03-05 20:40 | ED ---
Recheck HPI <Jermain Hines - Last Filed: 03/05/20 21:55> - General Source: EMS Mode of arrival: EMS Limitations: altered mental status <Kiki Jimenez - Last Filed: 03/06/20 02:30> - General Chief Complaint: Recheck/Abnormal Lab/Rx Stated Complaint: Peg tube issue Time Seen by Provider: 03/05/20 20:17 - History of Present Illness Initial Comments: 74-year-old female patient presents to the emergency department today from longterm facility for multiple complaints. Patient is having leaking from the end of her PEG tube and they are unable to give her nutrition. States that she has diabetes and blood sugars have been lower than usual. States she also found to have pneumonia on chest x-ray and her physician wanted her started on IV antibiotics. Patient is alert and oriented 1 only and therefore is a poor historian. She denies any current pain or trouble breathing. She states t hat she believes she's been having fevers but she is unsure. States she has been coughing. She is also currently being treated with keflex for cellulitis surrounding the PEG tube insertion site. Patient denies any recent rash, chest pain, abdominal pain, nausea, vomiting, diarrhea, constipation, back pain, numbness, tingling, dizziness, weakness, hematuria, dysuria, urinary urgency, urinary frequency, headache, visual changes, or any other complaints. (Kiki Jimenez) - Related Data Home Medications Medication Instructions Recorded Confirmed Pravastatin Sodium [Pravachol] 40 mg PEG/G-TUBE HS@2100 05/20/17 03/05/20 levETIRAcetam [Keppra Oral 100 mg PEG/G-TUBE DAILY@0800 09/27/17 03/05/20 Solution] Aspirin 81 mg PEG/G-TUBE DAILY@0800 05/30/18 03/05/20 Metoprolol Tartrate [Lopressor] 100 mg PEG/G-TUBE BID@0800,1700 05/30/18 03/05/20 Omeprazole Susp 2mg/Ml 20 mg PEG/G-TUBE HS@2100 05/30/18 03/05/20 Acetaminophen Oral Susp [Tylenol] 650 mg PEG/G-TUBE Q6H PRN 12/25/19 03/05/20 Apixaban [Eliquis] 2.5 mg PEG/G-TUBE BID@0800,1700 12/25/19 03/05/20 Cetirizine HCl 10 mg PEG/G-TUBE DAILY@1700 12/25/19 03/05/20 Cholestyramine/Aspartame 4 gm PEG/G-TUBE DAILY@0800 12/25/19 03/05/20 [Cholestyramine Light Packet] Diltiazem Oral [Cardizem*] 30 mg PEG/G-TUBE TID@0600,1400,2200 12/25/19 03/05/20 Feosol Liquid 220mg/5ml 330 mg PEG/G-TUBE DAILY@1700 12/25/19 03/05/20 Gabapentin Solution 250mg/5ml 100 mg PEG/G-TUBE 12/25/19 03/05/20 TID@0600,1400,2100 Insulin Detemir (Levemir) [Levemir] 48 unit SQ HS 12/25/19 03/05/20 Liquacel 30 ml PEG/G-TUBE BID@1200,2100 12/25/19 03/05/20 Magnesium Hydroxide [Milk of 7,200 mg PEG/G-TUBE DAILY PRN 12/25/19 03/05/20 Magnesia Concentrate] Multivitamins, Thera Liquid 5 ml PO DAILY@1700 12/25/19 03/05/20 [Theragran Liquid (formulary)] Na Phos,M-B/Na Phos,Di-Ba [Fleet 133 ml RECTAL DAILY PRN 12/25/19 03/05/20 Adult] bisacodyL [Dulcolax] 10 mg RECTAL DAILY PRN 12/25/19 03/05/20 hydrOXYzine HCL 25 mg PEG/G-TUBE TID@0600,1400,2200 12/25/19 03/05/20 metFORMIN HCL [metFORMIN HCL Oral 1,000 mg PEG/G-TUBE BID@0800,1700 12/25/19 03/05/20 Soln] Cephalexin [Keflex] 500 mg PEG/G-TUBE BID@0600,1800 03/05/20 03/05/20 INSULIN ASPART (NovoLOG) [NovoLOG See Protocol SQ Q6HR 03/05/20 03/05/20 (formulary)] metroNIDAZOLE [Metrogel 1%] 1 applic TOPICAL DAILY 03/05/20 03/05/20 Previous Rx's Medication Instructions Recorded Hydrophilic Cream [Triad Cream] 1 applic TOPICAL DAILY applic 01/01/20 Allergies Allergy/AdvReac Type Severity Reaction Status Date / Time ciprofloxacin [From Cipro] Allergy Rash/Hives Verified 03/05/20 20:30 ciprofloxacin HCl Allergy Rash/Hives Verified 03/05/20 20:30 [From Cipro] Quinolones Allergy Unknown Verified 03/05/20 20:30 Review of Systems ROS Other: All systems not noted in ROS Statement are negative. <Jermain Hines - Last Filed: 03/05/20 21:55> ROS Other: All systems not noted in ROS Statement are negative. <Kiki Jimenez - Last Filed: 03/06/20 02:30> ROS Statement: Those systems with pertinent positive or pertinent negative responses have been documented in the HPI. Past Medical History Past Medical History: Atrial Fibrillation, Atrial Flutter, Asthma, Cancer, Heart Failure, CVA/TIA, Dementia, Diabetes Mellitus, GERD/Reflux, GI Bleed, Hyperlipidemia, Hypertension, Pneumonia, Sleep Apnea/CPAP/BIPAP Additional Past Medical History / Comment(s): Verified with [employer] papers r/t son Jose Rafael being unsure of history. Jose Rafael states he is also pt's DPOA. 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, post traumatic seizures, History of Any Multi-Drug Resistant Organisms: None Reported Past Surgical History: Breast Surgery, Cardiac Valve Replacement, Heart Catheterization With Stent, Hysterectomy, Orthopedic Surgery, Pacemaker, Tonsillectomy Additional Past Surgical History / Comment(s): Peg tube, mechanical mitral valve 2000, polypectomy spinal cord/cyst removed, TEEs, CVNs, colonoscopies, bilateral cataract removal/lens implants, L rotator cuff repair, R femur fracture with IM hip/screw/nail, L breast lumpectomy, Past Anesthesia/Blood Transfusion Reactions: No Reported Reaction Date of Last Stent Placement:: 2006 Type of Cardiac Device: Permanent Pacemaker Device Placement Date:: 2009 Past Psychological History: Depression Smoking Status: Unknown if ever smoked Past Alcohol Use History: Unable to Obtain Past Drug Use History: Unable to Obtain - Past Family History Father Family Medical History: GI Bleed Additional Family Medical History / Comment(s): OF BLEEDING ULCER AT AGE 64 Mother Family Medical History: Cancer, CVA/TIA Additional Family Medical History / Comment(s): HX STROKES, COLON CANCER <Kiki Jimenez - Last Filed: 03/06/20 02:30> General Exam Limitations: altered mental status General appearance: alert, in no apparent distress, other (Physical well- developed, well-nourished elderly female patient in no acute distress. Vital signs upon presentation are temperature 98.2F, pulse 78, respirations 18, blood pressure 147/77, pulse ox 96% on room air.) ENT exam: Present: normal exam, normal oropharynx, mucous membranes moist Respiratory exam: Present: normal lung sounds bilaterally. Absent: respiratory distress, wheezes, rales, rhonchi, stridor Cardiovascular Exam: Present: regular rate, normal rhythm, normal heart sounds. Absent: systolic murmur, diastolic murmur, rubs, gallop, clicks GI/Abdominal exam: Present: soft, normal bowel sounds. Absent: distended, tenderness, guarding, rebound, rigid Neurological exam: Present: alert, oriented X3, CN II-XII intact Psychiatric exam: Present: normal affect, normal mood Skin exam: Present: warm, dry, intact, normal color. Absent: rash <Kiki Jimenez - Last Filed: 03/06/20 02:30> Course <Jermain Hines - Last Filed: 03/05/20 21:55> Vital Signs 03/05/20 03/05/20 03/05/20 20:19 21:36 22:55 Temperature 98.2 F Pulse Rate 78 90 86 Respiratory 18 18 18 Rate Blood Pressure 147/77 184/73 171/68 O2 Sat by Pulse 96 96 96 Oximetry 03/05/20 03/06/20 03/06/20 23:50 00:50 02:08 Temperature 98.0 F Pulse Rate 88 84 Respiratory 18 18 18 Rate Blood Pressure 162/89 155/84 O2 Sat by Pulse 98 97 Oximetry - Reevaluation(s) Reevaluation #1: 03/05/20 21:55 [employer]PER[employer] supervision: I did personally evaluate the patient she still complains of a leaky PEG tube. The tube was observed appears be intact except there are the end of the tube at the clamp. It is leaking just proximal to the clamp. This will be resolved by cutting off the broken part and receding the clamp. She was successful and was done without any complications. (Jermain Hines) Medical Decision Making - Lab Data Result diagrams: 03/05/20 20:41 03/05/20 20:41 <Jermain Hines - Last Filed: 03/05/20 21:55> - Lab Data Result diagrams: 03/05/20 20:41 03/05/20 20:41 - EKG Data -: EKG Interpreted by Me - Radiology Data Radiology results: report reviewed, image reviewed <Kiki Jimenez - Last Filed: 03/06/20 02:30> - Medical Decision Making 74-year-old female patient is sent in by her physician for possible pneumonia. Patient is also having PEG tube issues. Physical examination did reveal a PEG tube to the mid upper abdomen with mild surrounding erythema. There was drainage coming from the end of her tubing which was cracked. We were able to trim the tubing and replace the valve. Labs were reviewed and were relatively unremarkable. Chest xray showed mild heart failure. Questionable infiltrates with hazy heart border. I discussed the case with Dr. Gomez who agrees with admission. We started Zosyn for pneumonia. (Kiki Jimenez) - Lab Data Lab Results 03/05/20 03/05/20 03/05/20 Range/Units 20:41 20:41 20:41 WBC 10.0 (3.8-10.6) k/uL RBC 4.82 (3.80-5.40) m/uL Hgb 11.3 L (11.4-16.0) gm/dL Hct 37.6 (34.0-46.0) % MCV 78.0 L (80.0-100.0) fL MCH 23.4 L (25.0-35.0) pg MCHC 30.0 L (31.0-37.0) g/dL RDW 17.1 H (11.5-15.5) % Plt Count 266 (150-450) k/uL MPV 9.2 Neutrophils % 68 % Lymphocytes % 20 % Monocytes % 6 % Eosinophils % 4 % Basophils % 1 % Neutrophils # 6.8 (1.3-7.7) k/uL Lymphocytes # 2.0 (1.0-4.8) k/uL Monocytes # 0.6 (0-1.0) k/uL Eosinophils # 0.4 (0-0.7) k/uL Basophils # 0.1 (0-0.2) k/uL Hypochromasia Moderate Anisocytosis Slight Microcytosis Slight PT 10.1 (9.0-12.0) sec INR 0.9 (<1.2) APTT 21.4 L (22.0-30.0) sec Sodium 136 L (137-145) mmol/L Potassium 4.8 (3.5-5.1) mmol/L Chloride 101 (98-107) mmol/L Carbon Dioxide 31 H (22-30) mmol/L Anion Gap 4 mmol/L BUN 24 H (7-17) mg/dL Creatinine 0.47 L (0.52-1.04) mg/dL Est GFR (CKD-EPI)AfAm >90 (>60 ml/min/1.73 sqM) Est GFR (CKD-EPI)NonAf >90 (>60 ml/min/1.73 sqM) Glucose 82 (74-99) mg/dL Plasma Lactic Acid Buddy (0.7-2.0) mmol/L Calcium 9.3 (8.4-10.2) mg/dL Total Bilirubin 0.6 (0.2-1.3) mg/dL AST 31 (14-36) U/L ALT 22 (4-34) U/L Alkaline Phosphatase 106 (38-126) U/L NT-Pro-B Natriuret Pep pg/mL Total Protein 7.4 (6.3-8.2) g/dL Albumin 3.5 (3.5-5.0) g/dL Urine Color Urine Appearance (Clear) Urine pH (5.0-8.0) Ur Specific [place] (1.001-1.035) Urine Protein (Negative) Urine Glucose (UA) (Negative) Urine Ketones (Negative) Urine Blood (Negative) Urine Nitrite (Negative) Urine Bilirubin (Negative) Urine Urobilinogen (<2.0) mg/dL Ur Leukocyte Esterase (Negative) Urine RBC (0-5) /hpf Urine WBC (0-5) /hpf Ur Squamous Epith Cells (0-4) /hpf Amorphous Sediment (None) /hpf Urine Bacteria (None) /hpf 03/05/20 03/05/20 03/05/20 Range/Units 20:41 20:41 22:46 WBC (3.8-10.6) k/uL RBC (3.80-5.40) m/uL Hgb (11.4-16.0) gm/dL Hct (34.0-46.0) % MCV (80.0-100.0) fL MCH (25.0-35.0) pg MCHC (31.0-37.0) g/dL RDW (11.5-15.5) % Plt Count (150-450) k/uL MPV Neutrophils % % Lymphocytes % % Monocytes % % Eosinophils % % Basophils % % Neutrophils # (1.3-7.7) k/uL Lymphocytes # (1.0-4.8) k/uL Monocytes # (0-1.0) k/uL Eosinophils # (0-0.7) k/uL Basophils # (0-0.2) k/uL Hypochromasia Anisocytosis Microcytosis PT (9.0-12.0) sec INR (<1.2) APTT (22.0-30.0) sec Sodium (137-145) mmol/L Potassium (3.5-5.1) mmol/L Chloride (98-107) mmol/L Carbon Dioxide (22-30) mmol/L Anion Gap mmol/L BUN (7-17) mg/dL Creatinine (0.52-1.04) mg/dL Est GFR (CKD-EPI)AfAm (>60 ml/min/1.73 sqM) Est GFR (CKD-EPI)NonAf (>60 ml/min/1.73 sqM) Glucose (74-99) mg/dL Plasma Lactic Acid Buddy 1.1 (0.7-2.0) mmol/L Calcium (8.4-10.2) mg/dL Total Bilirubin (0.2-1.3) mg/dL AST (14-36) U/L ALT (4-34) U/L Alkaline Phosphatase (38-126) U/L NT-Pro-B Natriuret Pep 1160 pg/mL Total Protein (6.3-8.2) g/dL Albumin (3.5-5.0) g/dL Urine Color Yellow Urine Appearance Cloudy H (Clear) Urine pH 7.5 (5.0-8.0) Ur Specific [place] 1.016 (1.001-1.035) Urine Protein Trace H (Negative) Urine Glucose (UA) Negative (Negative) Urine Ketones Negative (Negative) Urine Blood Negative (Negative) Urine Nitrite Negative (Negative) Urine Bilirubin Negative (Negative) Urine Urobilinogen <2.0 (<2.0) mg/dL Ur Leukocyte Esterase Negative (Negative) Urine RBC 2 (0-5) /hpf Urine WBC 1 (0-5) /hpf Ur Squamous Epith Cells <1 (0-4) /hpf Amorphous Sediment Occasional H (None) /hpf Urine Bacteria Rare H (None) /hpf - EKG Data EKG Comments: EKG obtained at 2327 shows atrial fibrillation with a rate of 85, ventricular is 85, QRS duration 90, QT 374, QTC 445. (Kiki Jimenez) - Radiology Data Two-view x-ray of the chest is obtained. Report was reviewed in its entirety. Impression by Dr. Simon shows mild heart failure. Pulmonary congestion slightly increased compared to old exam. (Kiki Jimenez) Disposition <Jermain Hines - Last Filed: 03/05/20 21:55> Decision to Admit Reason: Admit from EC Decision Date: 03/06/20 Decision Time: 00:13 <Kiki Jimenez - Last Filed: 03/06/20 02:30> Clinical Impression: PEG tube malfunction, Mild congestive heart failure Disposition: ADMITTED IP TO THIS [facility] Condition: Serious
[2020-03-05 21:05] LABS: Anisocytosis Slight; Basophils # (A) 0.1 k/uL (0-0.2); Basophils % (A) 1 %; Eosinophils # (A) 0.4 k/uL (0-0.7); Eosinophils % (A) 4 %; HCT 37.6 % (34.0-46.0); HGB 11.3 gm/dL (11.4-16.0); Hypochromasia Moderate; Lymphocytes % (A) 20 %; MCH 23.4 pg (25.0-35.0); Mean Platelet Volume 9.2; Microcytosis Slight; Monocytes # (A) 0.6 k/uL (0-1.0); Monocytes % (A) 6 %; Neutrophils # (A) 6.8 k/uL (1.3-7.7); Neutrophils % (A) 68 %; Platelet Count 266 k/uL (150-450); RBC 4.82 m/uL (3.80-5.40); RDW 17.1 % (11.5-15.5)
[2020-03-05 21:12] LABS: ALT 22 U/L (4-34); AST 31 U/L (14-36); African American GFR (CKD) >90 (>60 ml/min/1.73 sqM); Albumin 3.5 g/dL (3.5-5.0); Alkaline Phosphatase 106 U/L (38-126); Anion Gap 4 mmol/L; Blood Urea Nitrogen 24 mg/dL (7-17); Calcium 9.3 mg/dL (8.4-10.2); Carbon Dioxide 31 mmol/L (22-30); Chloride 101 mmol/L (98-107); Glucose 82 mg/dL (74-99); Non-African American GFR(CKD) >90 (>60 ml/min/1.73 sqM); Potassium 4.8 mmol/L (3.5-5.1); Sodium 136 mmol/L (137-145); Total Bilirubin 0.6 mg/dL (0.2-1.3); Total Protein 7.4 g/dL (6.3-8.2)
[2020-03-05 21:33] LABS: INR 0.9 (<1.2); Prothrombin Time 10.1 sec (9.0-12.0)
--- NOTE | 2020-03-05 21:42 | XR ---
EXAMINATION TYPE: XR chest 2V DATE OF EXAM: 03/05/2020 COMPARISON: 06/24/2018 HISTORY: Short of breath TECHNIQUE: FINDINGS: Heart is enlarged. There is some pulmonary vascular congestion. There is right axillary pac emaker. There are sternal wires. I see no definite pleural effusion. IMPRESSION: Mild heart failure. Pulmonary congestion slightly increased compared to old exam.
[2020-03-05 21:49] LABS: Partial Thromboplastin Time 21.4 sec (22.0-30.0)
[2020-03-05 23:42] LABS: Amorphous Sediment,Urine Occasional /hpf; Appearance,Urine Cloudy (Clear); Bacteria,Urine Rare /hpf; Bilirubin,Urine Negative (Negative); Blood,Urine Negative (Negative); Color,Urine Yellow; Glucose,Urine (UA) Negative (Negative); Ketones,Urine Negative (Negative); Leukocyte Esterase,Urine Negative (Negative); Nitrite,Urine Negative (Negative); PH, Urine 7.5 (5.0-8.0); Protein,Urine Trace (Negative); RBC,Urine 2 /hpf (0-5); Specific Gravity,Urine 1.016 (1.001-1.035); Squamous Epithelial Cell,Urine <1 /hpf (0-4); Urobilinogen,Urine <2.0 mg/dL (<2.0); WBC,Urine 1 /hpf (0-5)
[2020-03-06] MEDS ORDERED: NALOXONE 0.4 MG/ML 1 ML VIAL IV PRN (00:16)
[2020-03-06] MEDS ORDERED: FUROSEMIDE 10 MG/ML 4 ML VIAL IV STA (00:17)
[2020-03-06] MEDS: PIPERACILLIN-TAZOBACTAM 3.375 GM in SODIUM CHLORIDE 0.9% 100 ML IVPB SCH ×3 (04:13→20:00)
[2020-03-06 07:05] LABS: Glucose,Whole Blood 128 mg/dL (75-99)
[2020-03-06] MEDS: INSULIN ASPART (NovoLOG) 100 UNIT/ML VIAL SQ SCH ×4 (07:21→21:09)
[2020-03-06] MEDS: FUROSEMIDE 10 MG/ML 4 ML VIAL IV SCH ×2 (09:04→20:00)
[2020-03-06] MEDS ORDERED: bisacodyL 10 MG SUPP RECTAL PRN (09:23)
[2020-03-06] MEDS ORDERED: MAGNESIUM HYDROXIDE 2,400 MG/10 ML CUP PEG/G-TUBE PRN (09:23)
[2020-03-06] MEDS ORDERED: ACETAMINOPHEN ORAL SUSP (PEDS) 3,840 MG/120 ML BOTTLE PEG/G-TUBE PRN (09:23)
[2020-03-06 11:47] LABS: Glucose,Whole Blood 161 mg/dL (75-99)
[2020-03-06] MEDS ORDERED: NON FORMULARY DRUG (Liquacel 30 ML) PEG/G-TUBE SCH (12:00)
--- NOTE | 2020-03-06 12:44 | HP ---
HISTORY AND PHYSICAL HISTORY OF PRESENT ILLNESS: 74-year-old white female came to the emergency room for leaking from the end of her PEG tube. She was also unable to get nutrition through that. She has had a stroke. She is unable to swallow. She also was recently treated for community-acquired pneumonia diagnosed 2 days ago and high fevers and worsening redness, swelling and cellulitis of the left arm. She is alert and oriented x1 only. Poor historian. Denies any current pain or trouble breathing. She had Covid pneumonia which she survived about 2 months ago. We started her on Keflex for cellulitis of the legs, started her on Unasyn as Keflex failed for hospital acquired pneumonia from [facility] as well as cellulitis of the left arm, worsening nausea, vomiting, numbness, tingling, dysuria, headache, visual changes. MEDICATIONS: See list. PAST MEDICAL HISTORY: Past medical history of atrial fibrillation, atrial flutter, asthma, cancer, heart failure, CVA, TIA, dementia, diabetes mellitus, GERD, GI bleed, dyslipidemia, hypertension, pneumonia, sleep apnea, CVAs with left-sided weakness, rectus sheath hematoma, atrial fibrillation with RVR, chronic CHF, hemiplegia, hemiparesis from a stroke she has had. Son Andrew is power of attorney recruiter. PAST SURGICAL HISTORY: Breast surgery, cardiac valve replaced, heart catheterization with stent, hysterectomy, orthopedic surgery, pacemaker, tonsillectomy, PEG tube, mechanical mitral valve, polypectomy, spinal cord cyst, PEs, colonoscopy, bilateral cataracts, left rotator cuff, right femur fracture, left breast lumpectomy, right femur fracture, GI bleed. FAMILY HISTORY: Father of bleeding age 64; mother of a stroke, colon cancer. PHYSICAL EXAMINATION: She has altered mental status. She is well developed, well nourished. VITAL SIGNS: Temp 98.2, pulse 78. Respiratory rate 16 to 18, blood pressure 140s/70s, 96% on room air. HEENT: Normocephalic, atraumatic. Pupils equal, round. LUNGS show transmitted upper sounds. No wheezes, rhonchi except in the lower bases. CARDIAC: Regular rate. Normal rhythm. No murmurs, rubs, gallops. GI is soft, normal bowel sounds. NEUROLOGIC: Cranial nerves appear to be intact. PSYCH: Fair mood and affect. SKIN: Warm, dry, intact. PEG tube was replaced in the ER. It is leaking. Waiting for surgeon to see it. Due to possible health care acquired pneumonia, worsened cellulitis of the arm and fever we are going to admit her. Infectious Disease and Pulmonary to see her. Started on broad-spectrum antibiotics and see Oncology for the left breast mass. Please see further orders. Prognosis guarded. MMODL / IJN: [id number] /
[2020-03-06] MEDS: GABAPENTIN 100 MG CAP PEG/G-TUBE SCH ×2 (13:22→20:00)
[2020-03-06] MEDS: DILTIAZEM ORAL 30 MG TAB PEG/G-TUBE SCH ×2 (13:22→21:09)
[2020-03-06] MEDS: hydrOXYzine HCL 25 MG TAB PEG/G-TUBE SCH ×2 (13:23→21:09)
[2020-03-06] MEDS: METOPROLOL TARTRATE 50 MG TAB PEG/G-TUBE SCH (16:06)
[2020-03-06] MEDS: metFORMIN 500 MG TAB PEG/G-TUBE SCH (16:06)
[2020-03-06] MEDS: LORATADINE 10 MG TAB PEG/G-TUBE SCH (16:06)
[2020-03-06] MEDS: FERROUS SULFATE ORAL ELIXIR 300 MG/5 ML CUP PEG/G-TUBE SCH (16:07)
[2020-03-06] MEDS: APIXABAN 2.5 MG TABLET PEG/G-TUBE SCH (16:07)
[2020-03-06] MEDS: MULTIVITAMINS, THERA LIQUID 237 ML BOTTLE PO SCH (16:07)
[2020-03-06 16:55] LABS: Glucose,Whole Blood 219 mg/dL (75-99)
[2020-03-06] MEDS: PANTOPRAZOLE SODIUM 40 MG GRANULE PKT PEG/G-TUBE SCH (20:00)
[2020-03-06] MEDS: PRAVASTATIN SODIUM 40 MG TAB PO SCH (20:01)
[2020-03-06 20:53] LABS: Glucose,Whole Blood 160 mg/dL (75-99)
[2020-03-06] MEDS: INSULIN DETEMIR (LEVEMIR) 100 UNIT/ML SYR SQ SCH (21:09)
--- NOTE | 2020-03-06 21:37 | P.CNPUL ---
History of Present Illness Consult date: 03/06/20 Reason for consult: dyspnea, cough Chief complaint: Evaluated for community-acquired pneumonia History of present illness: This is a 74-year-old female seen eval reexamined on fourth floor, patient admitted into the hospital with abnormal labs, patient is a resident of [facility], patient has been found to have early case through the PEG tube, she has been hypoglycemic, she was found to have a pneumonia on outpatient basis has been started on IV antibiotics she has a left hemiparesis due to prior stroke, right-sided foot ulcer on plantar aspect, she is awake oriented 1 as a baseline, she has been found to have ulcerative lesion in the left breast with a history of prior breast cancer oncology has been asked to evaluate the patient as well, at PEG tube insertion site some ongoing cellulitis present for which she was on Keflex, her admitted chest x-ray significant for cardiomegaly interstitial edema right-sided pacemaker, currently she is on anticoagulation with direct oral anticoagulant, has been getting Lasix for diuresis, and Zosyn for possible aspiration pneumonia, Review of Systems ROS unobtainable: due to mental status Past Medical History Past Medical History: Atrial Fibrillation, Atrial Flutter, Asthma, Cancer, Heart Failure, CVA/TIA, Dementia, Diabetes Mellitus, GERD/Reflux, GI Bleed, Hyperlipidemia, Hypertension, Pneumonia, Sleep Apnea/CPAP/BIPAP Additional Past Medical History / Comment(s): Verified with [employer] papers r/t son Jose Rafael being unsure of history. Jose Rafael states he is also pt's DPOA. 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, post traumatic seizures, History of Any Multi-Drug Resistant Organisms: None Reported Past Surgical History: Breast Surgery, Cardiac Valve Replacement, Heart Catheterization With Stent, Hysterectomy, Orthopedic Surgery, Pacemaker, Tonsillectomy Additional Past Surgical History / Comment(s): Peg tube, mechanical mitral valve 2000, polypectomy spinal cord/cyst removed, TEEs, CVNs, colonoscopies, bilateral cataract removal/lens implants, L rotator cuff repair, R femur fracture with IM hip/screw/nail, L breast lumpectomy, Past Anesthesia/Blood Transfusion Reactions: No Reported Reaction Date of Last Stent Placement:: 2006 Type of Cardiac Device: Permanent Pacemaker Device Placement Date:: 2009 Past Psychological History: Depression Smoking Status: Unknown if ever smoked Past Alcohol Use History: Unable to Obtain Past Drug Use History: Unable to Obtain - Past Family History Father Family Medical History: GI Bleed Additional Family Medical History / Comment(s): OF BLEEDING ULCER AT AGE 64 Mother Family Medical History: Cancer, CVA/TIA Additional Family Medical History / Comment(s): HX STROKES, COLON CANCER Medications and Allergies Home Medications Medication Instructions Recorded Confirmed Type Pravastatin Sodium [Pravachol] 40 mg PEG/G-TUBE HS@2100 05/20/17 03/05/20 History levETIRAcetam [Keppra Oral 100 mg PEG/G-TUBE DAILY@0800 09/27/17 03/05/20 History Solution] Aspirin 81 mg PEG/G-TUBE DAILY@0800 05/30/18 03/05/20 History Metoprolol Tartrate [Lopressor] 100 mg PEG/G-TUBE BID@0800,1700 05/30/18 03/05/20 History Omeprazole Susp 2mg/Ml 20 mg PEG/G-TUBE HS@2100 05/30/18 03/05/20 History Acetaminophen Oral Susp [Tylenol] 650 mg PEG/G-TUBE Q6H PRN 12/25/19 03/05/20 History Apixaban [Eliquis] 2.5 mg PEG/G-TUBE BID@0800,1700 12/25/19 03/05/20 History Cetirizine HCl 10 mg PEG/G-TUBE DAILY@1700 12/25/19 03/05/20 History Cholestyramine/Aspartame 4 gm PEG/G-TUBE DAILY@0800 12/25/19 03/05/20 History [Cholestyramine Light Packet] Diltiazem Oral [Cardizem*] 30 mg PEG/G-TUBE TID@0600,1400,2200 12/25/19 03/05/20 History Feosol Liquid 220mg/5ml 330 mg PEG/G-TUBE DAILY@1700 12/25/19 03/05/20 History Gabapentin Solution 250mg/5ml 100 mg PEG/G-TUBE 12/25/19 03/05/20 History TID@0600,1400,2100 Insulin Detemir (Levemir) [Levemir] 48 unit SQ HS 12/25/19 03/05/20 History Liquacel 30 ml PEG/G-TUBE BID@1200,2100 12/25/19 03/05/20 History Magnesium Hydroxide [Milk of 7,200 mg PEG/G-TUBE DAILY PRN 12/25/19 03/05/20 History Magnesia Concentrate] Multivitamins, Thera Liquid 5 ml PO DAILY@1700 12/25/19 03/05/20 History [Theragran Liquid (formulary)] Na Phos,M-B/Na Phos,Di-Ba [Fleet 133 ml RECTAL DAILY PRN 12/25/19 03/05/20 Histo ry Adult] bisacodyL [Dulcolax] 10 mg RECTAL DAILY PRN 12/25/19 03/05/20 History hydrOXYzine HCL 25 mg PEG/G-TUBE TID@0600,1400,2200 12/25/19 03/05/20 History metFORMIN HCL [metFORMIN HCL Oral 1,000 mg PEG/G-TUBE BID@0800,1700 12/25/19 03/05/20 History Soln] Hydrophilic Cream [Triad Cream] 1 applic TOPICAL DAILY applic 01/01/20 03/05/20 Rx Cephalexin [Keflex] 500 mg PEG/G-TUBE BID@0600,1800 03/05/20 03/05/20 History INSULIN ASPART (NovoLOG) [NovoLOG See Protocol SQ Q6HR 03/05/20 03/05/20 History (formulary)] metroNIDAZOLE [Metrogel 1%] 1 applic TOPICAL DAILY 03/05/20 03/05/20 History Allergies Allergy/AdvReac Type Severity Reaction Status Date / Time ciprofloxacin [From Cipro] Allergy Rash/Hives Verified 03/05/20 20:30 ciprofloxacin HCl Allergy Rash/Hives Verified 03/05/20 20:30 [From Cipro] Quinolones Allergy Unknown Verified 03/05/20 20:30 Physical Exam Vitals: Vital Signs Temp Pulse Pulse Resp BP BP Pulse Ox 03/06/20 16:50 99.6 F 03/06/20 13:48 98.3 F 107 H 17 114/60 95 03/06/20 07:39 98.6 F 102 H 18 138/88 93 L 03/06/20 05:17 97.8 F 03/06/20 02:20 100.4 F H 96 17 158/89 94 L 03/06/20 02:08 18 03/06/20 00:50 84 18 155/84 97 03/05/20 23:50 98.0 F 88 18 162/89 98 03/05/20 22:55 86 18 171/68 96 03/05/20 21:36 90 18 184/73 96 Intake and Output 03/06/20 03/06/20 03/06/20 06:59 14:59 22:59 Intake Total 40 Output Total 900 Balance 40 -900 Intake: Tube Feeding 40 Output: Urine 900 Other: Voiding Method Diaper Diaper Incontinent Incontinent # Voids 2 Weight 83.189 kg 82.5 kg - Constitutional General appearance: average body habitus, disheveled, morbidly obese - EENT Eyes: PERRLA Ears: bilateral: normal - Neck Carotids: bilateral: upstroke normal - Respiratory Respiratory: bilateral: diminished - Cardiovascular Heart sounds: normal: S1, S2 - Gastrointestinal General gastrointestinal: normal bowel sounds - Musculoskeletal Musculoskeletal: generalized weakness, left sided weakness Results - Laboratory Findings CBC and BMP: 03/05/20 20:41 03/05/20 20:41 PT/INR, D-dimer PT 10.1 sec (9.0-12.0) 03/05/20 20:41 INR 0.9 (<1.2) 03/05/20 20:41 Abnormal lab findings: Abnormal Labs 03/05/20 03/05/20 03/05/20 20:41 20:41 20:41 Hgb 11.3 L MCV 78.0 L MCH 23.4 L MCHC 30.0 L RDW 17.1 H APTT 21.4 L Sodium 136 L Carbon Dioxide 31 H BUN 24 H Creatinine 0.47 L POC Glucose (mg/dL) Urine Appearance Urine Protein Amorphous Sediment Urine Bacteria 03/05/20 03/06/20 03/06/20 22:46 07:04 11:43 Hgb MCV MCH MCHC RDW APTT Sodium Carbon Dioxide BUN Creatinine POC Glucose (mg/dL) 128 H 161 H Urine Appearance Cloudy H Urine Protein Trace H Amorphous Sediment Occasional H Urine Bacteria Rare H 03/06/20 03/06/20 16:54 20:49 Hgb MCV MCH MCHC RDW APTT Sodium Carbon Dioxide BUN Creatinine POC Glucose (mg/dL) 219 H 160 H Urine Appearance Urine Protein Amorphous Sediment Urine Bacteria - Diagnostic Findings Chest x-ray: report reviewed, image reviewed (Finding as noted above) Assessment and Plan Assessment: Presumed aspiration pneumonia Cellulitis around PEG tube placement site Right plantar ulcer History of stroke with left hemiparesis Chronic atrial fibrillation Advanced dementia multi-infarct likely Dyslipidemia Hypertension hypertensive cardiovascular disease Sleep disorder breathing and sleep apnea History of migraine headaches lower GI bleed incontinence and UTI Plan: Agree with IV Zosyn Repeat chest x-ray tomorrow Continue gentle Further recommendations pending plan of care is working response of the patient Time with Patient: Greater than 30
--- NOTE | 2020-03-06 23:10 | CONS ---
CONSULTATION DATE OF SERVICE: 03/06/2020 REASON FOR CONSULTATION: PEG tube site cellulitis and question of left lower extremity cellulitis/pneumonia. HISTORY OF PRESENT ILLNESS: The patient is 74 -year-old female and assisted resident. This patient apparently seemed to have problem with leaking around the PEG tube site and the assisted has not been able to give nutrition. The patient was admitted at this facility back in middle of December 2019. At that point, cultures were positive for MRSA and hence the patient seemed to have complete her antibiotic therapy for the same. The patient apparently also had a chest x-ray done at the assisted with evidence of possible pneumonia and the patient's primary care physician wanted the patient to be started on IV antibiotic therapy for which the patient has been sent to [facility]. On arrival to the ER, the patient has been afebrile. Subsequently did have a low-grade fever of 100.4 degrees Fahrenheit. The patient is currently 95% on room air. The patient did have a negative UA. White count is normal. No evidence of any leukopenia. Kidney function was normal. Liver enzymes are normal. Urine was negative. The patient was started on Zosyn and admitted to the hospital. Infectious Disease was consulted for further management. Most information has been obtained from review of the chart and talking with nursing staff as the patient at the time of my evaluation was lethargic and did not provide any history. REVIEW OF SYSTEMS: Positive points have been mentioned in HPI. Complete review could not be obtained because of her mental status. PAST MEDICAL HISTORY: Atrial fibrillation, atrial flutter, heart failure with CVA, TIA, dementia, diabetes mellitus, gastroesophageal reflux disease, hyperlipidemia, hypertension, pneumonia, sleep apnea. PAST SURGICAL HISTORY: Back surgery cardiac valve placement, PTCA with stent, hysterectomy, tonsillectomy, pacemaker placement. SOCIAL HISTORY: Current assisted resident. FAMILY HISTORY: Father history of GI bleed, from bleeding ulcer age of 64. Mother history of colon cancer. ALLERGIES: TO CIPROFLOXACIN. MEDICATIONS: Include the patient is currently on Zosyn, Protonix, Narcan, Lopressor, Glucophage, Claritin, Levemir, NovoLog, Atarax, Neurontin, Questran, Dulcolax, aspirin and Eliquis and Tylenol. PHYSICAL EXAMINATION: Blood pressure 114/60 with a pulse of 107, temperature 98.3. She is 95% on room air. General description is an elderly female lying in bed in no distress. No tachypnea or accessory muscles of respiration use. HEENT examination shows pallor. Oral mucous membranes dry. NECK: Trachea central. No thyromegaly. LUNGS: Unlabored breathing, decreased breath sounds at the base. No wheeze or crackles. HEART S1, S2. Regular rate and rhythm. ABDOMEN: Soft. PEG tube site with minimal drainage. No significant redness. EXTREMITIES: No edema of the feet. Left upper extremity did have some swelling but no redness. Left breast area did have small wound, but no redness or any drainage. NEUROLOGICAL: The patient is lethargic. Orientation could not be determined. LABS: Hemoglobin 11.1, white count 10.0 with a BUN of 24, creatinine 0.47. Electrolytes have been normal. Liver enzymes are normal. Urine was negative. Chest x-ray mostly CHF pattern. DIAGNOSTIC IMPRESSION AND PLAN: Patient admitted to the hospital with leakage from the PEG tube site in this patient with previous culture positive for MRSA bacteremia in mid December for which the patient has completed antibiotic therapy. At the time of evaluation, minimal swelling and drainage was noted, but no significant purulence with question of possible GI secretion. However, the patient did have a low-grade fever and may need further workup to pinpoint the source of this fever. The patient did have a chest x-ray report, more of a congestive heart failure than pneumonia. The patient is currently breathing comfortably on room air, saturating 95%. UA has been negative. PLAN: 1. We will obtain a CT of abdomen and pelvis to make sure no evidence of any abscess at the PEG tube site. 2. We will obtain cultures from the PEG tube site. 3. Continue with empiric Zosyn at this point and local wound care with Triad cream. 4. We will follow on her clinical condition and culture to further adjust medication if needed. Thank you for this consultation. We will follow this patient along with you. MMODL / IJN: [id number] /
[2020-03-07] MEDS: PIPERACILLIN-TAZOBACTAM 3.375 GM in SODIUM CHLORIDE 0.9% 100 ML IVPB SCH ×3 (04:00→21:08)
[2020-03-07] MEDS: DILTIAZEM ORAL 30 MG TAB PEG/G-TUBE SCH ×3 (05:12→21:09)
[2020-03-07] MEDS: GABAPENTIN 100 MG CAP PEG/G-TUBE SCH ×3 (05:12→21:08)
[2020-03-07] MEDS: hydrOXYzine HCL 25 MG TAB PEG/G-TUBE SCH ×3 (05:12→21:09)
[2020-03-07 06:15] LABS: Anisocytosis Slight; Basophils # (A) 0.1 k/uL (0-0.2); Basophils % (A) 1 %; Eosinophils # (A) 0.4 k/uL (0-0.7); Eosinophils % (A) 3 %; HCT 39.9 % (34.0-46.0); HGB 12.3 gm/dL (11.4-16.0); Hypochromasia Marked; Lymphocytes % (A) 18 %; MCHC 30.8 g/dL (31.0-37.0); Mean Platelet Volume 8.8; Microcytosis Slight; Monocytes # (A) 0.7 k/uL (0-1.0); Monocytes % (A) 6 %; Neutrophils # (A) 8.1 k/uL (1.3-7.7); Neutrophils % (A) 71 %; Platelet Count 286 k/uL (150-450); RBC 5.11 m/uL (3.80-5.40); RDW 16.9 % (11.5-15.5); WBC 11.4 k/uL (3.8-10.6)
[2020-03-07 06:47] LABS: Glucose,Whole Blood 190 mg/dL (75-99)
[2020-03-07] MEDS: INSULIN ASPART (NovoLOG) 100 UNIT/ML VIAL SQ SCH ×4 (07:25→21:01)
[2020-03-07] MEDS ORDERED: ASPIRIN 81 MG PEG/G-TUBE SCH (08:00)
--- NOTE | 2020-03-07 08:14 | XR ---
EXAMINATION TYPE: XR chest 1V portable DATE OF EXAM: 03/07/2020 COMPARISON: Chest x-ray 03/05/2020 HISTORY: Cough, pneumonia TECHNIQUE: Single frontal view of the chest is obtained. FINDINGS: Patient is rotated and post median sternotomy. There is a generator in the right pectoral region, leads are present in the right atrium and ventricle. No evident pneumothorax. Cardiomediastin al silhouette is stable. Aorta is dense. Patchy densities present at the retrocardiac location. Lung volumes are somewhat low. Surgical clips are present in the region overlying the left lower chest. IMPRESSION: Expiratory rotated exam. Correlate for left lower lobe pneumonia.
[2020-03-07 08:58] LABS: African American GFR (CKD) 73.5 (60.0-200.0); Albumin 3.7 g/dL (3.80-4.90); Albumin/Globulin Ratio 1.19 (1.60-3.17); Anion Gap 15.9 mmol/L (4.00-12.00); BUN/Creat Ratio 31.11 Ratio (12.00-20.00); Calcium 9.3 mg/dL (8.7-10.3); Carbon Dioxide 31.1 mmol/L (21.6-31.8); Globulin 3.1 g/dL (1.6-3.3); Non-African American GFR(CKD) 63.4 (60.0-200.0); Total Bilirubin 0.5 mg/dL (0.3-1.2); Total Protein 6.8 g/dL (6.2-8.2)
[2020-03-07] MEDS: FUROSEMIDE 10 MG/ML 4 ML VIAL IV SCH ×2 (08:58→21:08)
[2020-03-07] MEDS: APIXABAN 2.5 MG TABLET PEG/G-TUBE SCH ×2 (08:58→17:27)
[2020-03-07] MEDS: HYDROPHILIC CREAM 180 GM TUBE TOPICAL SCH (08:58)
[2020-03-07] MEDS: levETIRAcetam ORAL SOLN 500 MG/5 ML CUP PEG/G-TUBE SCH (09:00)
[2020-03-07] MEDS: CHOLESTYRAMINE (WITH SUGAR) 4 GM PACKET PEG/G-TUBE SCH (09:00)
[2020-03-07] MEDS: metFORMIN 500 MG TAB PEG/G-TUBE SCH ×2 (09:03→17:27)
[2020-03-07] MEDS: METOPROLOL TARTRATE 50 MG TAB PEG/G-TUBE SCH ×2 (09:03→17:27)
[2020-03-07 11:44] LABS: Glucose,Whole Blood 148 mg/dL (75-99)
--- NOTE | 2020-03-07 15:36 | P.PN ---
Subjective Progress Note Date: 03/07/20 Principal diagnosis: Presumed aspiration pneumonia Hard mass on left thoracic wall with an ulcerated lesion Cellulitis around PEG tube placement site Right plantar ulcer History of stroke with left hemiparesis Chronic atrial fibrillation Advanced dementia multi-infarct likely Dyslipidemia Hypertension hypertensive cardiovascular disease Sleep disorder breathing and sleep apnea History of migraine headaches lower GI bleed incontinence and UTI 03/07/2019, patient is more awake today oriented 1, oncology service to evaluate the patient, respiratory status remained stable remains on broad- spectrum antibiotics, cellulitis around the PEG tube site continued to improve, chest x-ray performed today reviewed finding consistent with left lower lobe aspiration pneumonia This is a 74-year-old female seen eval reexamined on fourth floor, patient admitted into the hospital with abnormal labs, [facility], patient has been found to have early case through the PEG tube, she has been hypoglycemic, she was found to have a pneumonia on outpatient basis has been started on IV antibiotics she has a left hemiparesis due to prior str minerva, right-sided foot ulcer on plantar aspect, she is awake oriented 1 as a baseline, she has been found to have ulcerative lesion in the left breast with a history of prior breast cancer oncology has been asked to evaluate the patient as well, at PEG tube insertion site some ongoing cellulitis present for which she was on Keflex, her admitted chest x-ray significant for cardiomegaly interstitial edema right-sided pacemaker, currently she is on anticoagulation with direct oral anticoagulant, has been getting Lasix for diuresis, and Zosyn for possible aspiration pneumonia, Objective - Vital Signs Vital signs: Vital Signs Temp 98.8 F 03/07/20 14:00 Pulse 80 03/07/20 14:00 Resp 18 03/07/20 14:00 BP 132/82 03/07/20 14:00 Pulse Ox 94 L 03/07/20 14:00 Intake & Output 03/06/20 03/07/20 03/07/20 18:59 06:59 18:59 Intake Total 40 500 Output Total 900 Balance -860 500 Weight 82.5 kg 82.5 kg Intake: Tube Feeding 40 500 Output: Urine 900 Other: Voiding Method Diaper Diaper Incontinent Incontinent - Exam - Constitutional General appearance: average body habitus, disheveled, morbidly obese - EENT Eyes: PERRLA Ears: bilateral: normal - Neck Carotids: bilateral: upstroke normal - Respiratory Respiratory: bilateral: diminished, dense hard thoracic wall mass left chest - Cardiovascular Heart sounds: normal: S1, S2 - Gastrointestinal General gastrointestinal: normal bowel sounds - Musculoskeletal Musculoskeletal: generalized weakness, left sided weakness - Labs CBC & Chem 7: 03/07/20 05:35 03/07/20 05:35 Labs: Abnormal Lab Results - Last 24 Hours (Table) 03/06/20 03/06/20 03/07/20 Range/Units 16:54 20:49 05:35 WBC 11.4 H (3.8-10.6) k/uL MCV 78.0 L (80.0-100.0) fL MCH 24.0 L (25.0-35.0) pg MCHC 30.8 L (31.0-37.0) g/dL RDW 16.9 H (11.5-15.5) % Neutrophils # 8.1 H (1.3-7.7) k/uL Chloride (96-109) mmol/L Anion Gap (4.00-12.00) mmol/L BUN (9.0-27.0) mg/dL BUN/Creatinine Ratio (12.00-20.00) Ratio Glucose (70-110) mg/dL POC Glucose (mg/dL) 219 H 160 H (75-99) mg/dL Albumin (3.80-4.90) g/dL Albumin/Globulin Ratio (1.60-3.17) g/dL 03/07/20 03/07/20 03/07/20 Range/Units 05:35 06:45 11:42 WBC (3.8-10.6) k/uL MCV (80.0-100.0) fL MCH (25.0-35.0) pg MCHC (31.0-37.0) g/dL RDW (11.5-15.5) % Neutrophils # (1.3-7.7) k/uL Chloride 95 L (96-109) mmol/L Anion Gap 15.90 H (4.00-12.00) mmol/L BUN 28.0 H (9.0-27.0) mg/dL BUN/Creatinine Ratio 31.11 H (12.00-20.00) Ratio Glucose 174 H (70-110) mg/dL POC Glucose (mg/dL) 190 H 148 H (75-99) mg/dL Albumin 3.70 L (3.80-4.90) g/dL Albumin/Globulin Ratio 1.19 L (1.60-3.17) g/dL Microbiology - Last 24 Hours (Table) 03/05/20 21:08 Blood Culture - Preliminary Blood No Growth after 24 hours 03/05/20 21:01 Blood Culture - Preliminary Blood No Growth after 24 hours Assessment and Plan Assessment: Left lower lobe aspiration pneumonia Left-sided thoracic wall hard indurated mass likely recurrence of breast cancer Cellulitis around PEG tube placement site Right plantar ulcer History of stroke with left hemiparesis Chronic atrial fibrillation Advanced dementia multi-infarct likely Dyslipidemia Hypertension hypertensive cardiovascular disease Sleep disorder breathing and sleep apnea History of migraine headaches lower GI bleed incontinence and UTI Plan: Agree with IV Zosyn Repeat chest x-ray reviewed consistent with left lower lobe pneumonia Continue gentle Further recommendations pending plan of care is working response of the patient
--- NOTE | 2020-03-07 16:01 | CDI ---
Documentation Clarification Form Date: 03/07/2020 03:41:57 PM From: Candice Diaz RN CCDS Admit Date: 03/06/2020 01:03:00 PM Patient Name: Ariane Eric Visit Number: [id number] Discharge Date: ATTENTION: The Clinical Documentation Specialists (CDI) and [facility] Coding Staff appreciate your assistance in clarifying documentation. Please respond to the clarification below the line at the bottom and electronically sign. The CDI & [facility] Coding staff will review the response and follow-up if needed. Please note: Queries are made part of the Legal Health Record. If you have any questions, please contact the author of this message via ITS. Dr. Luis A Gomez CHF is documented in the H&P 03/06. History/Risk Factors: 74-year-old female presents to the ED with leaking from PEG tube. Medical history: Atrial fibrillation; Atrial Flutter; heart failure and DM. Clinical Indicators: VS/Pulse OX 03/05: B/P 147/77; HR 78; Temp 98.2 F Oral; RR 18; SpO2 96% ra BNP 03/05: 1160 Echocardiogram Results 06/19/18: Left ventricular systolic function is mildly impaired with, an EF 45-50%. Right ventricle is normal size. The left atrium is markedly dilated. Chest X Ray 03/05: Mild heart failure. Pulmonary congestion slightly increased compared to old exam. Treatment: 03/06 Lasix IV x 1; Lasix IV Q12HR; 03/06 Lopressor peg/g-tube BID. In your professional opinion, can you please clarify the acuity and type of CHF if known? Acute on Chronic Systolic Heart Failure Acute on Chronic Diastolic Heart Failure Acute on Chronic Systolic and Diastolic Heart Failure Unable to Determine Other, please specify (Last Revision: May 2017) MTDD
[2020-03-07] MEDS: LORATADINE 10 MG TAB PEG/G-TUBE SCH (17:28)
[2020-03-07] MEDS: MULTIVITAMINS, THERA LIQUID 237 ML BOTTLE PO SCH (17:28)
[2020-03-07] MEDS: FERROUS SULFATE ORAL ELIXIR 300 MG/5 ML CUP PEG/G-TUBE SCH (17:28)
[2020-03-07 17:55] LABS: Glucose,Whole Blood 170 mg/dL (75-99)
[2020-03-07] MEDS: INSULIN DETEMIR (LEVEMIR) 100 UNIT/ML SYR SQ SCH (21:08)
[2020-03-07] MEDS: PANTOPRAZOLE SODIUM 40 MG GRANULE PKT PEG/G-TUBE SCH (21:08)
[2020-03-07] MEDS: PRAVASTATIN SODIUM 40 MG TAB PO SCH (21:09)
--- NOTE | 2020-03-07 21:10 | P.CONS ---
History of Present Illness - Reason for Consult Consult date: 03/07/20 Worsening Breast Mass - Chief Complaint Cellulitis iin arm - History of Present Illness Mrs. Eric is 74-year-old female who presents from [facility] facility secondary to Cellulitis in upper extremity and worsening breast lesion. She is unable to provide history. Her Son Jose Rafael is her legal guardian, I have contacted and spoke to him tonight. She receives feeding via PEG tube. The patient is noted to have a history of cerebral infarction and requires PEG tube feeding due to difficulty swallowing. She has recent history of MRSA infections. In December 2019 Breast Mass was biopsied and negative for malignancy at that time. During discussion with her son she has had breast cancer with lumpectomy in the same breast approximately 20 years prior. She is on aspirin and eliquis. We will hold this until after surgical evaluation, will ask Dr. Arceo to obtain a biopsy of mass again and of surrounding skin tissue as this appears very suspicious for inflammatory/Malignancy that has spread to skin. Staging CTs have been ordered along with bone scan. Review of Systems ROS unobtainable: due to mental status Past Medical History Past Medical History: Atrial Fibrillation, Atrial Flutter, Asthma, Cancer, Heart Failure, CVA/TIA, Dementia, Diabetes Mellitus, GERD/Reflux, GI Bleed, Hyperlipidemia, Hypertension, Pneumonia, Sleep Apnea/CPAP/BIPAP Additional Past Medical History / Comment(s): Verified with [facility] papers r/t son Jose Rafael being unsure of history. Jose Rafael states he is also pt's DPOA. 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, post traumatic seizures, History of Any Multi-Drug Resistant Organisms: None Reported Past Surgical History: Breast Surgery, Cardiac Valve Replacement, Heart Catheterization With Stent, Hysterectomy, Orthopedic Surgery, Pacemaker, Tonsillectomy Additional Past Surgical History / Comment(s): Peg tube, mechanical mitral valve 2000, polypectomy spinal cord/cyst removed, TEEs, CVNs, colonoscopies, bilateral cataract removal/lens implants, L rotator cuff repair, R femur fracture with IM hip/screw/nail, L breast lumpectomy, Past Anesthesia/Blood Transfusion Reactions: No Reported Reaction Date of Last Stent Placement:: 2006 Type of Cardiac Device: Permanent Pacemaker Device Placement Date:: 2009 Past Psychological History: Depression Smoking Status: Unknown if ever smoked Past Alcohol Use History: Unable to Obtain Past Drug Use History: Unable to Obtain - Past Family History Father Family Medical History: GI Bleed Additional Family Medical History / Comment(s): OF BLEEDING ULCER AT AGE 64 Mother Family Medical History: Cancer, CVA/TIA Additional Family Medical History / Comment(s): HX STROKES, COLON CANCER Medications and Allergies Home Medications Medication Instructions Recorded Confirmed Type Pravastatin Sodium [Pravachol] 40 mg PEG/G-TUBE HS@2100 05/20/17 03/05/20 History levETIRAcetam [Keppra Oral 100 mg PEG/G-TUBE DAILY@0800 0803/05/20 History Solution] Aspirin 81 mg PEG/G-TUBE DAILY@0800 05/30/18 03/05/20 History Metoprolol Tartrate [Lopressor] 100 mg PEG/G-TUBE BID@0800,1700 05/30/18 03/05/20 History Omeprazole Susp 2mg/Ml 20 mg PEG/G-TUBE HS@2100 05/30/18 03/05/20 History Acetaminophen Oral Susp [Tylenol] 650 mg PEG/G-TUBE Q6H PRN 12/25/19 03/05/20 H istory Apixaban [Eliquis] 2.5 mg PEG/G-TUBE BID@0800,1700 12/25/19 03/05/20 History Cetirizine HCl 10 mg PEG/G-TUBE DAILY@1700 12/25/19 03/05/20 History Cholestyramine/Aspartame 4 gm PEG/G-TUBE DAILY@0800 12/25/19 03/05/20 History [Cholestyramine Light Packet] Diltiazem Oral [Cardizem*] 30 mg PEG/G-TUBE TID@0600,1400,2200 12/25/19 03/05/20 History Feosol Liquid 220mg/5ml 330 mg PEG/G-TUBE DAILY@1700 12/25/19 03/05/20 History Gabapentin Solution 250mg/5ml 100 mg PEG/G-TUBE 12/25/19 03/05/20 History TID@0600,1400,2100 Insulin Detemir (Levemir) [Levemir] 48 unit SQ HS 12/25/19 03/05/20 History Liquacel 30 ml PEG/G-TUBE BID@1200,2100 12/25/19 03/05/20 History Magnesium Hydroxide [Milk of 7,200 mg PEG/G-TUBE DAILY PRN 12/25/19 03/05/20 History Magnesia Concentrate] Multivitamins, Thera Liquid 5 ml PO DAILY@1700 12/25/19 03/05/20 History [Theragran Liquid (formulary)] Na Phos,M-B/Na Phos,Di-Ba [Fleet 133 ml RECTAL DAILY PRN 12/25/19 03/05/20 History Adult] bisacodyL [Dulcolax] 10 mg RECTAL DAILY PRN 12/25/19 03/05/20 History hydrOXYzine HCL 25 mg PEG/G-TUBE TID@0600,1400,2200 12/25/19 03/05/20 History metFORMIN HCL [metFORMIN HCL Oral 1,000 mg PEG/G-TUBE BID@0800,1700 12/25/19 03/05/20 History Soln] Hydrophilic Cream [Triad Cream] 1 applic TOPICAL DAILY applic 01/01/20 03/05/20 Rx Cephalexin [Keflex] 500 mg PEG/G-TUBE BID@0600,1800 03/05/20 03/05/20 History INSULIN ASPART (NovoLOG) [NovoLOG See Protocol SQ Q6HR 03/05/20 03/05/20 History (formulary)] metroNIDAZOLE [Metrogel 1%] 1 applic TOPICAL DAILY 03/05/20 03/05/20 History Allergies Allergy/AdvReac Type Severity Reaction Status Date / Time ciprofloxacin [From Cipro] Allergy Rash/Hives Verified 03/05/20 20:30 ciprofloxacin HCl Allergy Rash/Hives Verified 03/05/20 20:30 [From Cipro] Quinolones Allergy Unknown Verified 03/05/20 20:30 Physical Exam Vitals: Vital Signs Temp Pulse Resp BP Pulse Ox 03/07/20 19:58 80 18 03/07/20 14:00 98.8 F 80 18 132/82 94 L 03/07/20 07:19 98.5 F 104 H 18 104/71 91 L 03/07/20 07:15 18 03/07/20 04:53 103 H 115/78 03/07/20 02:45 97.8 F 77 17 125/84 93 L Intake and Output 03/07/20 03/07/20 03/07/20 06:59 14:59 22:59 Output Total 600 Balance -600 Output: Urine 600 Other: Voiding Method Diaper Incontinent Weight 82.5 kg - Exam - Constitutional General appearance: morbidly obese - EENT Eyes: PERRLA Ears: bilateral: normal - Neck Carotids: bilateral: upstroke normal - Respiratory Respiratory: bilateral: diminished, SKIN: Left Breast mass and skin changes noted Abdomen: PEG Tube - Cardiovascular Heart sounds: normal: S1, S2 - Gastrointestinal General gastrointestinal: normal bowel sounds - Musculoskeletal Musculoskeletal: generalized weakness, left sided weakness Left upper extremity cellulitis and Edema Results CBC & Chem 7: 03/07/20 05:35 03/07/20 05:35 Labs: Abnormal Lab Results - Last 24 Hours (Table) 03/06/20 03/07/20 03/07/20 Range/Units 20:49 05:35 05:35 WBC 11.4 H (3.8-10.6) k/uL MCV 78.0 L (80.0-100.0) fL MCH 24.0 L (25.0-35.0) pg MCHC 30.8 L (31.0-37.0) g/dL RDW 16.9 H (11.5-15.5) % Neutrophils # 8.1 H (1.3-7.7) k/uL Chloride 95 L (96-109) mmol/L Anion Gap 15.90 H (4.00-12.00) mmol/L BUN 28.0 H (9.0-27.0) mg/dL BUN/Creatinine Ratio 31.11 H (12.00-20.00) Ratio Glucose 174 H (70-110) mg/dL POC Glucose (mg/dL) 160 H (75-99) mg/dL Albumin 3.70 L (3.80-4.90) g/dL Albumin/Globulin Ratio 1.19 L (1.60-3.17) g/dL 03/07/20 03/07/20 03/07/20 Range/Units 06:45 11:42 17:47 WBC (3.8-10.6) k/uL MCV (80.0-100.0) fL MCH (25.0-35.0) pg MCHC (31.0-37.0) g/dL RDW (11.5-15.5) % Neutrophils # (1.3-7.7) k/uL Chloride (96-109) mmol/L Anion Gap (4.00-12.00) mmol/L BUN (9.0-27.0) mg/dL BUN/Creatinine Ratio (12.00-20.00) Ratio Glucose (70-110) mg/dL POC Glucose (mg/dL) 190 H 148 H 170 H (75-99) mg/dL Albumin (3.80-4.90) g/dL Albumin/Globulin Ratio (1.60-3.17) g/dL Microbiology - Last 24 Hours (Table) 03/05/20 21:08 Blood Culture - Preliminary Blood No Growth after 24 hours 03/05/20 21:01 Blood Culture - Preliminary Blood No Growth after 24 hours Assessment and Plan (1) History of CVA (cerebrovascular accident) Current Visit: Yes Status: Acute Code(s): Z86.73 - PRSNL HX OF TIA (TIA), AND CEREB INFRC W/O RESID DEFICITS SNOMED Code(s): 664717905 (2) Afib Current Visit: No Status: Acute Code(s): I48.91 - UNSPECIFIED ATRIAL FIBRILLATION SNOMED Code(s): 92521376 (3) Left breast mass Current Visit: No Status: Acute Code(s): N63.20 - UNSPECIFIED LUMP IN THE LEFT BREAST, UNSPECIFIED QUADRANT SNOMED Code(s): 81844256 (4) Renal failure (ARF), acute on chronic Current Visit: No Status: Acute Code(s): N17.9 - ACUTE KIDNEY FAILURE, UNSPECIFIED SNOMED Code(s): 669517873 (5) S/P MVR (mitral valve replacement) Current Visit: No Status: Acute Code(s): Z95.2 - PRESENCE OF PROSTHETIC HEART VALVE SNOMED Code(s): 9212278944746 (6) Skin infection Current Visit: No Status: Acute Code(s): L08.9 - LOCAL INFECTION OF THE SKIN AND SUBCUTANEOUS TISSUE, UNSP SNOMED Code(s): 832847222 (7) History of breast cancer Current Visit: Yes Status: Acute Code(s): Z85.3 - PERSONAL HISTORY OF MALIGNANT NEOPLASM OF BREAST SNOMED Code(s): 668554717 Plan: Assessment and Recommendations: Worsening Breast Mass: Skin Changes - History of Breast Cancer - Remote >15years same breast - Check Tumor Markers - Repeat Breast Ultrasound - Staging CTs/Bone Scan, Hydrate after with known Chronic renal insufficiency Consult placed for Dr. Arceo to re-biopsy - Aspirin held in anticipation today. Eliquis last dose given 03/07 at 1700 (Nursing will hold until after surgery evaluates and plans time for biopsy) will as Dr. Arceo to sample surrounding skin as well for skin involvement Discussed above with Daughter (attempted Jose Rafael first), daughter hung up phone, did not wish to speak about situation. Did get a hold of son Jose Rafael, he is wanting to move forward with biopsy. Physician Attest: I have completed the full history and physical and developed the above impression and plan, agree with dictation by JULIANE Livingston, Dictated as a scribe.
--- NOTE | 2020-03-07 22:47 | PN ---
PROGRESS NOTE DATE OF SERVICE: 03/07/2020 REASON FOR FOLLOWUP: Possible cellulitis at the PEG tube site. INTERVAL HISTORY: The patient is currently afebrile. She was noted to be slightly awake, and she responded to her name, but did not provide any history. She is currently on room air. No vomiting or diarrhea has been reported. The patient herself was unable to provide any history. PHYSICAL EXAMINATION: Blood pressure 131/81 with a pulse of 71, temperature 97.9. She is 94% on room air. General description is an elderly female lying in bed in no distress. RESPIRATORY SYSTEM: Unlabored breathing with decreased breath sounds at the base. No wheeze. HEART: S1, S2. Regular rate and rhythm. ABDOMEN: Soft. No tenderness. LABS: Hemoglobin is 12.3, white count 11.4, BUN of 28, creatinine 0.9. DIAGNOSTIC IMPRESSION AND PLAN: Patient admitted to hospital with multiple symptoms; did have a low-grade fever and a concern for possible cellulitis of the PEG tube site. The patient is covered with Zosyn; to continue, with overall resolution of her fever and monitor clinical course closely. MMODL / IJN: [id number] /
--- NOTE | 2020-03-07 23:02 | PN ---
PROGRESS NOTE This patient is a 74-year-old white female with presumed aspiration pneumonia, hard mass, left thoracic chest wall with ulcerated lesion, cellulitis around PEG tube, right plantar ulcer, history of stroke with hemiparesis, chronic atrial fibrillation, advanced dementia, multi-infarct, dyslipidemia, hypertensive cardiovascular disease, obstructive sleep apnea, migraine, lower GI bleed history, incontinence, urinary tract infection, cellulitis around the PEG tube. Continues to improve. Chest x-ray shows lower lobe aspiration pneumonia. She is on broad-spectrum antibiotics. Cellulitis appears to be improving on the left arm. Blood pressure 132/82, respiratory rate 16 to 18, pulse 80, temperature 98.8, oxygen saturation 94%. CARDIOVASCULAR: S1, S2. ABDOMEN: Soft. EXTREMITIES: Weakness. PLAN: Continue with Zosyn. PEG tube cleaning. Rehydration. Diuresis. Prognosis guarded. REDDY / PETERN: [id number] /
[2020-03-08 00:10] LABS: Glucose,Whole Blood 171 mg/dL (75-99)
[2020-03-08] MEDS: INSULIN ASPART (NovoLOG) 100 UNIT/ML VIAL SQ SCH ×4 (00:26→17:28)
[2020-03-08] MEDS: PIPERACILLIN-TAZOBACTAM 3.375 GM in SODIUM CHLORIDE 0.9% 100 ML IVPB SCH ×3 (05:25→20:42)
[2020-03-08] MEDS: DILTIAZEM ORAL 30 MG TAB PEG/G-TUBE SCH ×3 (05:26→20:42)
[2020-03-08] MEDS: GABAPENTIN 100 MG CAP PEG/G-TUBE SCH ×3 (05:26→20:42)
[2020-03-08] MEDS: hydrOXYzine HCL 25 MG TAB PEG/G-TUBE SCH ×3 (05:26→20:43)
[2020-03-08 05:53] LABS: Glucose,Whole Blood 171 mg/dL (75-99)
[2020-03-08] MEDS: APIXABAN 2.5 MG TABLET PEG/G-TUBE SCH ×2 (08:35→12:49)
[2020-03-08] MEDS: METOPROLOL TARTRATE 50 MG TAB PEG/G-TUBE SCH ×2 (08:50→16:30)
[2020-03-08] MEDS: FUROSEMIDE 10 MG/ML 4 ML VIAL IV SCH ×2 (08:50→20:43)
[2020-03-08] MEDS: CHOLESTYRAMINE (WITH SUGAR) 4 GM PACKET PEG/G-TUBE SCH (08:51)
[2020-03-08] MEDS: levETIRAcetam ORAL SOLN 500 MG/5 ML CUP PEG/G-TUBE SCH (08:51)
[2020-03-08] MEDS: HYDROPHILIC CREAM 180 GM TUBE TOPICAL SCH (08:52)
[2020-03-08] MEDS: IOPAMIDOL CONTRAST (ORAL USE) VIAL PO PRN ×2 (09:04→10:06)
--- NOTE | 2020-03-08 09:05 | USB ---
Reason for exam: clinical finding. History: Patient is postmenopausal and has history of breast cancer at age 64. Lumpectomy of the left breast, 2010. Cancelled Right Mammotome of the right breast, March 17, 2008. Benign stereotactic core biopsy of the left breast, March 04, 1998. US Breast LT Left complete breast ultrasound includes all four quadrants, the retroareolar region and axilla. Finding demonstrates a 1.1 x 0.6 x 0.5cm oval, hypoechoic lymph node at 3 o'clock, a 2.6 x 2.0 x 1.4cm irregular, hypoechoic lesion at 11-12 o'clock and a 1.4 x 1.9 x 0.5cm axilla lymph node. Irregular area at site of wound likely reflects infected collection. Short term follow up recommended following appropriate antibiotic therapy. ASSESSMENT: Probably benign, BI-RAD 3 RECOMMENDATION: Ultrasound of the left breast in 1 month.
[2020-03-08 11:53] LABS: Glucose,Whole Blood 139 mg/dL (75-99)
--- NOTE | 2020-03-08 12:15 | P.PN ---
Subjective Progress Note Date: 03/08/20 Principal diagnosis: Presumed aspiration pneumonia Hard mass on left thoracic wall with an ulcerated lesion Cellulitis around PEG tube placement site Right plantar ulcer History of stroke with left hemiparesis Chronic atrial fibrillation Advanced dementia multi-infarct likely Dyslipidemia Hypertension hypertensive cardiovascular disease Sleep disorder breathing and sleep apnea History of migraine headaches lower GI bleed incontinence and UTI 03/08/2020, patient seen and evaluated examined resting comfortably at room air oriented [address] and bone scan results are pending 03/07/2020, patient is more awake today oriented 1, oncology service to evaluat e the patient, respiratory status remained stable remains on broad-spectrum antibiotics, cellulitis around the PEG tube site continued to improve, chest x- ray performed today reviewed finding consistent with left lower lobe aspiration pneumonia This is a 74-year-old female seen eval reexamined on fourth floor, patient admitted into the hospital with abnormal labs, patient is a resident of [facility], patient has been found to have early case through the PEG tube, she has been hypoglycemic, she was found to have a pneumonia on outpatient basis has been started on IV antibiotics she has a left hemiparesis due to prior stroke, right-sided foot ulcer on plantar aspect, she is awake oriented 1 as a baseline, she has been found to have ulcerative lesion in the left breast with a history of prior breast cancer oncology has been asked to evaluate the patient as well, at PEG tube insertion site some ongoing cellulitis present for which she was on Keflex, her admitted chest x-ray significant for cardiomegaly interstitial edema right-sided pacemaker, currently she is on anticoagulation with direct oral anticoagulant, has been getting Lasix for diuresis, and Zosyn for possible aspiration pneumonia, Objective - Vital Signs Vital signs: Vital Signs Temp 97.1 F L 03/08/20 07:20 Pulse 96 03/08/20 07:20 Resp 18 03/08/20 07:20 BP 112/68 03/08/20 07:20 Pulse Ox 92 L 03/08/20 07:20 Intake & Output 03/07/20 03/08/20 03/08/20 18:59 06:59 18:59 Intake Total 750 Output Total 600 200 Balance -600 550 Weight 82.5 kg 82.5 kg Intake: Tube Feeding 660 Other 90 Output: Urine 600 200 Other: Voiding Method Diaper Diaper Incontinent Incontinent # Voids 1 # Bowel Movements 1 - Exam - Constitutional General appearance: average body habitus, disheveled, morbidly obese - EENT Eyes: PERRLA Ears: bilateral: normal - Neck Carotids: bilateral: upstroke normal - Respiratory Respiratory: bilateral: diminished, dense hard thoracic wall mass left chest - Cardiovascular Heart sounds: normal: S1, S2 - Gastrointestinal General gastrointestinal: normal bowel sounds - Musculoskeletal Musculoskeletal: generalized weakness, left sided weakness - Labs CBC & Chem 7: 03/07/20 05:35 03/07/20 05:35 Labs: Abnormal Lab Results - Last 24 Hours (Table) 03/07/20 03/08/20 03/08/20 Range/Units 17:47 00:09 05:52 POC Glucose (mg/dL) 170 H 171 H 171 H (75-99) mg/dL 03/08/20 Range/Units 11:51 POC Glucose (mg/dL) 139 H (75-99) mg/dL Microbiology - Last 24 Hours (Table) 03/05/20 21:08 Blood Culture - Preliminary Blood No Growth after 48 hours 03/05/20 21:01 Blood Culture - Preliminary Blood No Growth after 48 hours Assessment and Plan Assessment: Left lower lobe aspiration pneumonia Left-sided thoracic wall hard indurated mass likely recurrence of breast cancer Cellulitis around PEG tube placement site Right plantar ulcer History of stroke with left hemiparesis Chronic atrial fibrillation Advanced dementia multi-infarct likely Dyslipidemia Hypertension hypertensive cardiovascular disease Sleep disorder breathing and sleep apnea History of migraine headaches lower GI bleed incontinence and UTI Plan: Continue IV Zosyn Repeat chest x-ray reviewed consistent with left lower lobe pneumonia Continue gentle hydration Workup for breast cancer in progress status post CT of the chest abdominal and pelvis, ultrasound of the breast, and bone scan Further recommendations pending plan of care is working response of the patient Time with Patient: Greater than 30
--- NOTE | 2020-03-08 12:23 | CT ---
EXAMINATION TYPE: CT ChestAbdPelvis w con DATE OF EXAM: 03/08/2020 COMPARISON: CT abdomen and pelvis 11/09/2013. Correlation breast ultrasound same day. HISTORY: 74-year-old female Initial staging, heart failure TECHNIQUE: Contiguous axial scanning of the chest, abdomen, and pelvis performed with IV Contrast, pa tient injected with 100 mL of Isovue 300. Delayed images through the kidneys were obtained. Coronal/s agittal reconstructions performed. CT DLP: 1970.5 mGycm Automated exposure control for dose reduction was used. FINDINGS: CHEST: Right anterior chest wall pacemaker generator with right atrial and right ventricular leads. Retained epicardial pacer leads. Median sternotomy wires and CABG clips. Heart mildly enlarged without pericardial effusion. Aorta normal caliber with conventional arch vessel branching anatomy. Post lumpectomy change upper outer left breast. Some associated soft tissue here could reflect scarri ng but requires further clinical correlation. No well-formed abnormal fluid collection is identified. No thoracic lymphadenopathy by CT size criteria. Mosaic attenuation with hazy densities throughout the lungs. No concetta consolidation or pleural effusi on. Strandy atelectasis or scarring at the lung bases. ABDOMEN: Allowing for artifacts from the patient's arms down by her side, no definite focal liver lesion. No b iliary ductal dilatation. The portal venous system is patent. Tiny gallstone. No abnormal gallbladder distention. A PEG tube is in place. Adrenal glands, spleen, and pancreas show no gross abnormality. Lobulated bilateral kidneys suggests sequela of prior vascular or infectious insult. There is subtle 1.8 cm hypodensity within the anterior mid to lower pole right kidney, axial image 39 particularly on the delayed kidney images. No dilated small bowel, free fluid, or free air. No mesenteric or retroperitoneal lymphadenopathy. Oral contrast has progressed to the rectum. No significant stool burden. No pericolonic inflammatory change. PELVIS: Bladder distended. Pelvic phlebolith. Uterus surgically absent. Small bilateral ovaries. No abnormal fluid collection in the pelvis or pelvic lymphadenopathy. Bones: Right hip screw fixation demonstrated. There are degenerative changes left hip. Osteopenia. Accentuat ed mid thoracic kyphosis and lumbar lordosis. Superior endplate Schmorl's node L3 vertebral body. No osseous destructive process seen. IMPRESSION: 1. POST LUMPECTOMY CHANGES UPPER OUTER QUADRANT OF THE LEFT BREAST. SOME SOFT TISSUE THICKENING HERE MAY REFLECT SCAR AND CAN BE CORRELATED CLINICALLY. NO OBVIOUS ABNORMAL FLUID COLLECTION. 2. MILD CARDIOMEGALY. THERE IS MOSAIC ATTENUATION THROUGHOUT THE LUNGS SUGGESTING SMALL AIRWAYS DISEA SE OR GENERALIZED ATELECTASIS. NO PULMONARY EDEMA OR PLEURAL EFFUSION. 3. SUBTLE 1.8 CM HYPODENSITY WITHIN THE ANTERIOR RIGHT KIDNEY, AXIAL IMAGE 39, PARTICULARLY ON THE DE LAYED KIDNEY IMAGES. CLINICALLY CORRELATE TO EXCLUDE THE POSSIBILITY OF PYELONEPHRITIS. 3 MONTH FOLLO W-UP CT RECOMMENDED TO EXCLUDE A SUBTLE SOLID MASS HERE. 4. TINY GALLSTONE. INDWELLING PEG TUBE. STATUS POST HYSTERECTOMY.
--- NOTE | 2020-03-08 13:30 | NM ---
EXAMINATION TYPE: NM bone scan whole body DATE OF EXAM: 03/08/2020 COMPARISON: CT 03/08/2020 HISTORY: Initial staging, history of breast cancer Delayed whole-body scanning was performed following the injection of 24.7 mCi Tc 99m MDP. Images acq uired 3 hours post injection. FINDINGS: Soft tissue uptake is normal. Uptake within the feet, ankles, knees, wrists and hands, shoulders, telma rnoclavicular joints, spine is likely degenerative. Uptake in the maxilla and mandible may be due to periodontal disease. Bandlike area of increased uptake at the lower thoracic spine thought likely to be at superior endplate T12, mild depression present superior endplate consistent with osteoporotic c ompression fracture. Patient is rotated. No definite areas of abnormal uptake to suggest metastatic d isease. Photopenic area at the right hip consistent with hip arthroplasty change. Some left hip uptak e likely due to osteoarthritic change. Multiple fracture also noted incidentally. IMPRESSION: No evident metastatic disease. Additional findings above.
--- NOTE | 2020-03-08 15:18 | P.GSCN ---
History of Present Illness Consult date: 03/08/20 History of present illness: 74-year-old female that presented from the [facility] secondary to concern of cellulitis in the upper extremity and around the PEG tube site. The patient is noted to have a history of cerebral infarction and had PEG tube placed secondary to dysphagia. She is known to me due to a recent finding of a concern for a breast mass. Biopsy was performed during her last admission that was found to be benign. She is noted to have a history of breast cancer on her left breast where this lesion of concern is located. There does not appear to be any active drainage at this time. There is no significant fluid collection. Imaging was performed with ultrasound that was noted to be benign. CT of the chest was positive for scarring at the site along with possible soft tissue inflammation. Review of Systems ROS unobtainable: due to mental status Past Medical History Past Medical History: Atrial Fibrillation, Atrial Flutter, Asthma, Cancer, Heart Failure, CVA/TIA, Dementia, Diabetes Mellitus, GERD/Reflux, GI Bleed, Hyperlipidemia, Hypertension, Pneumonia, Sleep Apnea/CPAP/BIPAP Additional Past Medical History / Comment(s): Verified with [employer] papers r/t son Jose Rafael being unsure of history. Jose Rafael states he is also pt's DPOA. 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, post traumatic seizures, History of Any Multi-Drug Resistant Organisms: None Reported Past Surgical History: Breast Surgery, Cardiac Valve Replacement, Heart Catheterization With Stent, Hysterectomy, Orthopedic Surgery, Pacemaker, Tonsillectomy Additional Past Surgical History / Comment(s): Peg tube, mechanical mitral valve 2000, polypectomy spinal cord/cyst removed, TEEs, CVNs, colonoscopies, bilateral cataract removal/lens implants, L rotator cuff repair, R femur fracture with IM hip/screw/nail, L breast lumpectomy, Past Anesthesia/Blood Transfusion Reactions: No Reported Reaction Date of Last Stent Placement:: 2006 Type of Cardiac Device: Permanent Pacemaker Device Placement Date:: 2009 Past Psychological History: Depression Smoking Status: Unknown if ever smoked Past Alcohol Use History: Unable to Obtain Past Drug Use History: Unable to Obtain - Past Family History Father Family Medical History: GI Bleed Additional Family Medical History / Comment(s): OF BLEEDING ULCER AT AGE 64 Mother Family Medical History: Cancer, CVA/TIA Additional Family Medical History / Comment(s): HX STROKES, COLON CANCER Medications and Allergies Home Medications Medication Instructions Recorded Confirmed Type Pravastatin Sodium [Pravachol] 40 mg PEG/G-TUBE HS@2100 05/20/17 03/05/20 History levETIRAcetam [Keppra Oral 100 mg PEG/G-TUBE DAILY@0800 09/27/17 03/05/20 History Solution] Aspirin 81 mg PEG/G-TUBE DAILY@0800 05/30/18 03/05/20 History Metoprolol Tartrate [Lopressor] 100 mg PEG/G-TUBE BID@0800,1700 05/30/18 03/05/20 History Omeprazole Susp 2mg/Ml 20 mg PEG/G-TUBE HS@2100 05/30/18 03/05/20 History Acetaminophen Oral Susp [Tylenol] 650 mg PEG/G-TUBE Q6H PRN 12/25/19 03/05/20 History Apixaban [Eliquis] 2.5 mg PEG/G-TUBE BID@0800,1700 12/25/19 03/05/20 History Cetirizine HCl 10 mg PEG/G-TUBE DAILY@1700 12/25/19 03/05/20 History Cholestyramine/Aspartame 4 gm PEG/G-TUBE DAILY@0800 12/25/19 03/05/20 History [Cholestyramine Light Packet] Diltiazem Oral [Cardizem*] 30 mg PEG/G-TUBE TID@0600,1400,2200 12/25/19 03/05/20 History Feosol Liquid 220mg/5ml 330 mg PEG/G-TUBE DAILY@1700 12/25/19 03/05/20 History Gabapentin Solution 250mg/5ml 100 mg PEG/G-TUBE 12/25/19 03/05/20 History TID@0600,1400,2100 Insulin Detemir (Levemir) [Levemir] 48 unit SQ HS 12/25/19 03/05/20 History Liquacel 30 ml PEG/G-TUBE BID@1200,2100 12/25/19 03/05/20 History Magnesium Hydroxide [Milk of 7,200 mg PEG/G-TUBE DAILY PRN 12/25/19 03/05/20 History Magnesia Concentrate] Multivitamins, Thera Liquid 5 ml PO DAILY@1700 12/25/19 03/05/20 History [Theragran Liquid (formulary)] Na Phos,M-B/Na Phos,Di-Ba [Fleet 133 ml RECTAL DAILY PRN 12/25/19 03/05/20 History Adult] bisacodyL [Dulcolax] 10 mg RECTAL DAILY PRN 12/25/19 03/05/20 History hydrOXYzine HCL 25 mg PEG/G-TUBE TID@0600,1400,2200 12/25/19 03/05/20 History metFORMIN HCL [metFORMIN HCL Oral 1,000 mg PEG/G-TUBE BID@0800,1700 12/25/19 03/05/20 History Soln] Hydrophilic Cream [Triad Cream] 1 applic TOPICAL DAILY applic 01/01/20 03/05/20 Rx Cephalexin [Keflex] 500 mg PEG/G-TUBE BID@0600,1800 03/05/20 03/05/20 History INSULIN ASPART (NovoLOG) [NovoLOG See Protocol SQ Q6HR 03/05/20 03/05/20 History (formulary)] metroNIDAZOLE [Metrogel 1%] 1 applic TOPICAL DAILY 03/05/20 03/05/20 History Allergies Allergy/AdvReac Type Severity Reaction Status Date / Time ciprofloxacin [From Cipro] Allergy Rash/Hives Verified 03/05/20 20:30 ciprofloxacin HCl Allergy Rash/Hives Verified 03/05/20 20:30 [From Cipro] Quinolones Allergy Unknown Verified 03/05/20 20:30 Surgical - Exam Osteopathic Statement: *. No significant issues noted on an osteopathic structural exam other than those noted in the History and Physical/Consult. Vital Signs Temp Pulse Resp BP Pulse Ox 98.2 F 78 18 147/77 96 03/05/20 20:19 03/05/20 20:19 03/05/20 20:19 03/05/20 20:19 03/05/20 20:19 - General no distress - Eyes normal ocular movement - Neck trachea midline - Respiratory normal respiratory effort - Abdomen Abdomen: soft, non tender - Integumentary Ulcerated lesion of the upper outer quadrant of the left breast that is indurated and hard to the touch, no active drainage, nontender to palpation Results - Labs 03/07/20 05:35 03/07/20 05:35 Abnormal Lab Results - Last 24 Hours (Table) 03/07/20 03/08/20 03/08/20 Range/Units 17:47 00:09 05:52 POC Glucose (mg/dL) 170 H 171 H 171 H (75-99) mg/dL 03/08/20 Range/Units 11:51 POC Glucose (mg/dL) 139 H (75-99) mg/dL Microbiology - Last 24 Hours (Table) 03/05/20 21:08 Blood Culture - Preliminary Blood No Growth after 48 hours 03/05/20 21:01 Blood Culture - Preliminary Blood No Growth after 48 hours Assessment and Plan Plan: Based on concern of a worsening of the left breast mass, request has been made for additional biopsy. Last biopsy was noted to be benign. Patient's Eliquis is being held and we will perform biopsy tomorrow to decrease any risk of bleeding. Discussed with nursing and consent is being obtained by the patient's POA.
--- NOTE | 2020-03-08 15:25 | PN ---
PROGRESS NOTE DATE OF SERVICE: 03/08/2020 REASON FOR FOLLOWUP: PEG tube site cellulitis. INTERVAL HISTORY: The patient is currently afebrile. The patient is breathing comfortably on at this point. The patient remains to be sleepy, lethargic and is unable to provide any history. No vomiting, diarrhea or any other change reported by the nursing staff. PHYSICAL EXAMINATION: Blood pressure 112/68 with a pulse of 96, temperature 97.1. She is 92% on room air. General description is an elderly female lying in bed in no distress. RESPIRATORY SYSTEM: Unlabored breathing, clear to auscultation anteriorly. HEART: S1, S2. Regular rate and rhythm. ABDOMEN: Soft, no tenderness. LABS: No new labs have been obtained today. DIAGNOSTIC IMPRESSION AND PLAN: Patient with admission to the hospital with multiple symptoms including some drainage from her PEG tube site and she did have a low-grade fever as well. The patient did have a workup completed with a CT of abdomen did not mention any abscess around the PEG tube site. Continue Zosyn and monitor clinical course closely. MMODL / IJN: [id number] /
[2020-03-08] MEDS: LORATADINE 10 MG TAB PEG/G-TUBE SCH (16:30)
[2020-03-08] MEDS: FERROUS SULFATE ORAL ELIXIR 300 MG/5 ML CUP PEG/G-TUBE SCH (16:31)
[2020-03-08] MEDS: MULTIVITAMINS, THERA LIQUID 237 ML BOTTLE PO SCH (16:31)
[2020-03-08 17:05] LABS: Glucose,Whole Blood 173 mg/dL (75-99)
--- NOTE | 2020-03-08 20:15 | P.PN ---
Subjective Progress Note Date: 03/08/20 Principal diagnosis: Breast mass Review of imaging notes mass appearance benign, although clinically concerning due to changes, and known history. Surgical evaluation for potential biopsy of breast mass and surrounding skin, noted last biopsy was negative, although again during assessment felt to be notable changes. Objective - Vital Signs Vital signs: Vital Signs Temp 98.3 F 03/08/20 18:57 Pulse 65 03/08/20 18:57 Resp 16 03/08/20 18:57 BP 139/82 03/08/20 18:57 Pulse Ox 94 L 03/08/20 18:57 Intake & Output 03/08/20 03/08/20 03/09/20 06:59 18:59 06:59 Intake Total 750 Output Total 200 Balance 550 Weight 82.5 kg Intake: Tube Feeding 660 Other 90 Output: Urine 200 Other: Voiding Method Diaper Diaper Diaper Incontinent Incontinent Incontinent # Voids 1 # Bowel Movements 1 1 - Exam - Exam - Constitutional General appearance: morbidly obese - EENT Eyes: PERRLA Ears: bilateral: normal - Neck Carotids: bilateral: upstroke normal - Respiratory Respiratory: bilateral: diminished, SKIN: Left Breast mass and skin changes noted Abdomen: PEG Tube - Cardiovascular Heart sounds: normal: S1, S2 - Gastrointestinal General gastrointestinal: normal bowel sounds - Musculoskeletal Musculoskeletal: generalized weakness, left sided weakness Left upper extremity cellulitis and Edema - Labs CBC & Chem 7: 03/07/20 05:35 03/07/20 05:35 Labs: Abnormal Lab Results - Last 24 Hours (Table) 03/08/20 03/08/20 03/08/20 Range/Units 00:09 05:52 11:51 POC Glucose (mg/dL) 171 H 171 H 139 H (75-99) mg/dL 03/08/20 Range/Units 17:02 POC Glucose (mg/dL) 173 H (75-99) mg/dL Microbiology - Last 24 Hours (Table) 03/05/20 21:08 Blood Culture - Preliminary Blood No Growth after 48 hours 03/05/20 21:01 Blood Culture - Preliminary Blood No Growth after 48 hours Assessment and Plan (1) History of CVA (cerebrovascular accident) Current Visit: Yes Status: Acute Code(s): Z86.73 - PRSNL HX OF TIA (TIA), AND CEREB INFRC W/O RESID DEFICITS SNOMED Code(s): 636093928 (2) Afib Current Visit: No Status: Acute Code(s): I48.91 - UNSPECIFIED ATRIAL FIBRILLATION SNOMED Code(s): 83329926 (3) Left breast mass Current Visit: No Status: Acute Code(s): N63.20 - UNSPECIFIED LUMP IN THE LEFT BREAST, UNSPECIFIED QUADRANT SNOMED Code(s): 39047438 (4) Renal failure (ARF), acute on chronic Current Visit: No Status: Acute Code(s): N17.9 - ACUTE KIDNEY FAILURE, UNSPECIFIED SNOMED Code(s): 593420944 (5) S/P MVR (mitral valve replacement) Current Visit: No Status: Acute Code(s): Z95.2 - PRESENCE OF PROSTHETIC HEART VALVE SNOMED Code(s): 1067210462146 (6) Skin infection Current Visit: No Status: Acute Code(s): L08.9 - LOCAL INFECTION OF THE SKIN AND SUBCUTANEOUS TISSUE, UNSP SNOMED Code(s): 970628423 (7) History of breast cancer Current Visit: Yes Status: Acute Code(s): Z85.3 - PERSONAL HISTORY OF MALIGNANT NEOPLASM OF BREAST SNOMED Code(s): 293322180 Plan: Assessment and Recommendations: Worsening Breast Mass: Skin Changes - History of Breast Cancer - Remote >15years same breast - Check Tumor Markers - Repeat Breast Ultrasound - Review of CT and ultrasound - Tumor markers re-checked, no elevation, although no baseline comparison - Bone Scan Negative for mestatic bone suspicion - Hydrate after with known Chronic renal insufficiency Consult placed for Dr. Arceo to re-biopsy - Aspirin held in anticipation today. Eliquis last dose given 03/07 at 1700 (Nursing will hold until after surgery evaluates and plans time for biopsy) will as Dr. Arceo to sample surrounding skin as well for skin involvement, I have spoken to Dr. Arceo and planning to do bedside biopsy 03/09/20.
[2020-03-08] MEDS: INSULIN DETEMIR (LEVEMIR) 100 UNIT/ML SYR SQ SCH (20:42)
[2020-03-08] MEDS: PRAVASTATIN SODIUM 40 MG TAB PO SCH (20:43)
[2020-03-08] MEDS: PANTOPRAZOLE SODIUM 40 MG GRANULE PKT PEG/G-TUBE SCH (20:43)
[2020-03-08 23:57] LABS: Glucose,Whole Blood 170 mg/dL (75-99)
[2020-03-09] MEDS: PIPERACILLIN-TAZOBACTAM 3.375 GM in SODIUM CHLORIDE 0.9% 100 ML IVPB SCH ×3 (05:04→21:07)
[2020-03-09] MEDS: GABAPENTIN 100 MG CAP PEG/G-TUBE SCH ×3 (05:04→21:06)
[2020-03-09] MEDS: DILTIAZEM ORAL 30 MG TAB PEG/G-TUBE SCH ×3 (05:05→21:07)
[2020-03-09] MEDS: hydrOXYzine HCL 25 MG TAB PEG/G-TUBE SCH ×3 (05:05→21:07)
[2020-03-09 05:19] LABS: Glucose,Whole Blood 188 mg/dL (75-99)
[2020-03-09] MEDS: INSULIN ASPART (NovoLOG) 100 UNIT/ML VIAL SQ SCH ×5 (05:20→23:58)
[2020-03-09 06:16] LABS: Anisocytosis Slight; Basophils # (A) 0.1 k/uL (0-0.2); Basophils % (A) 1 %; Eosinophils # (A) 0.7 k/uL (0-0.7); Eosinophils % (A) 7 %; HCT 36.3 % (34.0-46.0); HGB 11.7 gm/dL (11.4-16.0); Hypochromasia Moderate; Lymphocytes % (A) 21 %; MCH 24.8 pg (25.0-35.0); MCHC 32.1 g/dL (31.0-37.0); MCV 77.3 fL (80.0-100.0); Mean Platelet Volume 8.7; Microcytosis Slight; Monocytes # (A) 0.6 k/uL (0-1.0); Monocytes % (A) 6 %; Neutrophils # (A) 6.1 k/uL (1.3-7.7); Neutrophils % (A) 64 %; Platelet Count 234 k/uL (150-450); RDW 16.9 % (11.5-15.5); WBC 9.5 k/uL (3.8-10.6)
[2020-03-09] MEDS: APIXABAN 2.5 MG TABLET PEG/G-TUBE SCH ×2 (07:39→15:15)
[2020-03-09] MEDS: levETIRAcetam ORAL SOLN 500 MG/5 ML CUP PEG/G-TUBE SCH (07:42)
[2020-03-09] MEDS: FUROSEMIDE 10 MG/ML 4 ML VIAL IV SCH ×2 (07:42→21:06)
[2020-03-09] MEDS: METOPROLOL TARTRATE 50 MG TAB PEG/G-TUBE SCH ×2 (07:42→17:30)
[2020-03-09] MEDS: CHOLESTYRAMINE (WITH SUGAR) 4 GM PACKET PEG/G-TUBE SCH (07:43)
[2020-03-09] MEDS: HYDROPHILIC CREAM 180 GM TUBE TOPICAL SCH (07:43)
[2020-03-09] MEDS ORDERED: LIDOCAINE 1% INJ 10MG/ML (20 ML MDV) ONE (10:06)
--- NOTE | 2020-03-09 11:21 | P.PN ---
Subjective Progress Note Date: 03/09/20 HISTORY OF PRESENT ILLNESS This is a 74-year-old treated for PEG tube site cellulitis. Patient has been t reated with Zosyn CAT scan of the abdomen did not mention abscess at the site. Patient continues to be lethargic and unable to provide information. Abdomen is soft. Patient is afebrile, heart rate 60, blood pressure 115/61, pulse ox 94% on room air. WBC 9.5, hemoglobin 11.7. Blood culture showing no growth after 72 hours. PHYSICAL EXAMINATION Gen: This is a 74-year-old obese female. She is resting bed and appears comfortable. HEENT: Head is atraumatic, normocephalic. LUNGS: Clear to auscultation. No wheezes or rhonchi. No intercostal retractions. HEART: Regular rate and rhythm. No murmur. ABDOMEN: Soft. Bowel sounds are present. No masses. No tenderness. Mild erythema surrounding PEG tube. EXTREMITIES: No pedal edema. No calf tenderness. NEUROLOGICAL: Patient is lethargic. ASSESSMENT PEG tube site cellulitis without sign of abscess on CAT scan PLAN Continue Zosyn 3.375 g IV piggyback every 8 hours Continue supportive care Further recommendations based on patient's clinical course. The above dictated assessment and findings were discussed with Dr. Chavira. The impression and plan of care have been directed as dictated. Ariane March nurse practitioner acting as scribe for Dr. Chavira. Objective - Vital Signs Vital signs: Vital Signs Temp 97.3 F L 03/09/20 07:46 Pulse 68 03/09/20 07:46 Resp 19 03/09/20 07:46 BP 115/61 03/09/20 07:46 Pulse Ox 94 L 03/09/20 07:46 Intake & Output 03/08/20 03/09/20 03/09/20 18:59 06:59 18:59 Weight 82.5 kg Other: Voiding Method Diaper Diaper Incontinent Incontinent # Bowel Movements 1 - Labs CBC & Chem 7: 03/09/20 05:51 03/07/20 05:35 Labs: Abnormal Lab Results - Last 24 Hours (Table) 03/08/20 03/08/20 03/08/20 Range/Units 11:51 17:02 23:56 MCV (80.0-100.0) fL MCH (25.0-35.0) pg RDW (11.5-15.5) % POC Glucose (mg/dL) 139 H 173 H 170 H (75-99) mg/dL 03/09/20 03/09/20 Range/Units 05:17 05:51 MCV 77.3 L (80.0-100.0) fL MCH 24.8 L (25.0-35.0) pg RDW 16.9 H (11.5-15.5) % POC Glucose (mg/dL) 188 H (75-99) mg/dL Microbiology - Last 24 Hours (Table) 03/05/20 21:08 Blood Culture - Preliminary Blood No Growth after 72 hours 03/05/20 21:01 Blood Culture - Preliminary Blood No Growth after 72 hours
[2020-03-09 12:01] LABS: Glucose,Whole Blood 234 mg/dL (75-99)
--- NOTE | 2020-03-09 13:29 | P.PN ---
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 Dyslipidemia Hypertension hypertensive cardiovascular disease Sleep disorder breathing and sleep apnea History of migraine headaches lower GI bleed incontinence and UTI 03/09/2020, patient seen eval reexamined remains on broad-spectrum antibiotics, oriented 1, cellulitis in the abdominal wall continued to improve cultures have been negative respiratory status stable 03/08/2020, patient seen and evaluated examined resting comfortably at room air oriented [address] and bone scan results are pending 03/07/2020, patient is more awake today oriented 1, oncology service to evalu ate the patient, respiratory status remained stable remains on broad-spectrum antibiotics, cellulitis around the PEG tube site continued to improve, chest x- ray performed today reviewed finding consistent with left lower lobe aspiration pneumonia This is a 74-year-old female seen eval reexamined on fourth floor, patient admitted into the hospital with abnormal labs, patient is a resident of [facility], patient has been found to have early case through the PEG tube, she has been hypoglycemic, she was found to have a pneumonia on outpatient basis has been started on IV antibiotics she has a left hemiparesis due to prior stroke, right-sided foot ulcer on plantar aspect, she is awake oriented 1 as a baseline, she has been found to have ulcerative lesion in the left breast with a history of prior breast cancer oncology has been asked to evaluate the patient as well, at PEG tube insertion site some ongoing cellulitis present for which she was on Keflex, her admitted chest x-ray significant for cardiomegaly interstitial edema right-sided pacemaker, currently she is on anticoagulation with direct oral anticoagulant, has been getting Lasix for diuresis, and Zosyn for possible aspiration pneumonia, Objective - Vital Signs Vital signs: Vital Signs Temp 97.3 F L 03/09/20 07:46 Pulse 68 03/09/20 07:46 Resp 19 03/09/20 07:46 BP 115/61 03/09/20 07:46 Pulse Ox 94 L 03/09/20 07:46 Intake & Output 03/08/20 03/09/20 03/09/20 18:59 06:59 18:59 Weight 82.5 kg 82.5 kg Other: Voiding Method Diaper Diaper Incontinent Incontinent # Bowel Movements 1 - Exam - Constitutional General appearance: average body habitus, disheveled, morbidly obese - EENT Eyes: PERRLA Ears: bilateral: normal - Neck Carotids: bilateral: upstroke normal - Respiratory Respiratory: bilateral: diminished, dense hard thoracic wall mass left chest - Cardiovascular Heart sounds: normal: S1, S2 - Gastrointestinal General gastrointestinal: normal bowel sounds - Musculoskeletal Musculoskeletal: generalized weakness, left sided weakness - Labs CBC & Chem 7: 03/09/20 05:51 03/07/20 05:35 Labs: Abnormal Lab Results - Last 24 Hours (Table) 03/08/20 03/08/20 03/09/20 Range/Units 17:02 23:56 05:17 MCV (80.0-100.0) fL MCH (25.0-35.0) pg RDW (11.5-15.5) % POC Glucose (mg/dL) 173 H 170 H 188 H (75-99) mg/dL 03/09/20 03/09/20 Range/Units 05:51 12:00 MCV 77.3 L (80.0-100.0) fL MCH 24.8 L (25.0-35.0) pg RDW 16.9 H (11.5-15.5) % POC Glucose (mg/dL) 234 H (75-99) mg/dL Microbiology - Last 24 Hours (Table) 03/05/20 21:08 Blood Culture - Preliminary Blood No Growth after 72 hours 03/05/20 21:01 Blood Culture - Preliminary Blood No Growth after 72 hours Assessment and Plan Assessment: Left lower lobe aspiration pneumonia Left-sided thoracic wall hard indurated mass likely recurrence of breast cancer Cellulitis around PEG tube placement site Right plantar ulcer History of stroke with left hemiparesis Chronic atrial fibrillation Advanced dementia multi-infarct likely Dyslipidemia Hypertension hypertensive cardiovascular disease Sleep disorder breathing and sleep apnea History of migraine headaches lower GI bleed incontinence and UTI Plan: Continue IV Zosyn Repeat chest x-ray reviewed consistent with left lower lobe pneumonia Continue gentle hydration Workup for breast cancer in progress status post CT of the chest abdominal and pelvis, ultrasound of the breast, and bone scan Further recommendations pending plan of care is working response of the patient Time with Patient: Greater than 30
--- NOTE | 2020-03-09 15:01 | P.PCN ---
Date of Procedure: 03/09/20 Preoperative Diagnosis: Breast lesion, left breast Postoperative Diagnosis: Breast lesion, left breast Procedure(s) Performed: Excisional biopsy left breast lesion Anesthesia: local Surgeon: Gilda Arceo Pathology: other (Left breast lesion) Condition: stable Disposition: floor Indications for Procedure: 74-year-old female, with previous history of left breast cancer, has a known ulcerated lesion of the left breast. She did have previous biopsy that was negative. Due to continued chronic ulceration of this area, there is still heavy suspicion of possible carcinoma. Secondary to this, excisional breast biopsy is being performed once again.Patient's power of city attorney did provide consent for this procedure. Operative Findings: Ulcerated left breast lesion, excisional biopsy Description of Procedure: Ulcerated lesion was noted in the upper outer quadrant of the left breast. This area was prepped and draped in regular sterile fashion. An elliptical incision was made over this site and a deep excisional biopsy was performed. Specimen was sent to pathology. The stasis was noted to be maintained with direct pressure. The wound was then closed with interrupted 2-0 nylon suture. Patient tolerated the procedure well. Nursing was at bedside during the procedure.
--- NOTE | 2020-03-09 15:15 | P.PN ---
Subjective Progress Note Date: 03/09/20 Principal diagnosis: Breast mass Review of CTs and Bone scan negative for other potential areas of concern of malignancy, I did speak with surgery team ans she did undergo her repeat breast biopsy today. ELiquis will be resumed and her aspirin. Objective - Vital Signs Vital signs: Vital Signs Temp 97.8 F 03/09/20 14:55 Pulse 70 03/09/20 14:55 Resp 18 03/09/20 14:55 BP 132/76 03/09/20 14:55 Pulse Ox 96 03/09/20 14:55 Intake & Output 03/08/20 03/09/20 03/09/20 18:59 06:59 18:59 Weight 82.5 kg 82.5 kg Other: Voiding Method Diaper Diaper Incontinent Incontinent # Bowel Movements 1 - Exam - Exam - Constitutional General appearance: morbidly obese - EENT Eyes: PERRLA Ears: bilateral: normal - Neck Carotids: bilateral: upstroke normal - Respiratory Respiratory: bilateral: diminished, SKIN: Left Breast mass and skin changes noted Abdomen: PEG Tube - Cardiovascular Heart sounds: normal: S1, S2 - Gastrointestinal General gastrointestinal: normal bowel sounds - Musculoskeletal Musculoskeletal: generalized weakness, left sided weakness Left upper extremity cellulitis and Edema - Labs CBC & Chem 7: 03/10/20 06:11 03/10/20 06:11 Labs: Abnormal Lab Results - Last 24 Hours (Table) 03/08/20 03/08/20 03/09/20 Range/Units 17:02 23:56 05:17 MCV (80.0-100.0) fL MCH (25.0-35.0) pg RDW (11.5-15.5) % POC Glucose (mg/dL) 173 H 170 H 188 H (75-99) mg/dL 03/09/20 03/09/20 Range/Units 05:51 12:00 MCV 77.3 L (80.0-100.0) fL MCH 24.8 L (25.0-35.0) pg RDW 16.9 H (11.5-15.5) % POC Glucose (mg/dL) 234 H (75-99) mg/dL Microbiology - Last 24 Hours (Table) 03/05/20 21:08 Blood Culture - Preliminary Blood No Growth after 72 hours 03/05/20 21:01 Blood Culture - Preliminary Blood No Growth after 72 hours Assessment and Plan (1) History of CVA (cerebrovascular accident) Current Visit: Yes Status: Acute Code(s): Z86.73 - PRSNL HX OF TIA (TIA), AND CEREB INFRC W/O RESID DEFICITS SNOMED Code(s): 601666201 (2) Afib Current Visit: No Status: Acute Code(s): I48.91 - UNSPECIFIED ATRIAL FIBRILLATION SNOMED Code(s): 27595912 (3) Left breast mass Current Visit: No Status: Acute Code(s): N63.20 - UNSPECIFIED LUMP IN THE LEFT BREAST, UNSPECIFIED QUADRANT SNOMED Code(s): 11121233 (4) Renal failure (ARF), acute on chronic Current Visit: No Status: Acute Code(s): N17.9 - ACUTE KIDNEY FAILURE, UNSPECIFIED SNOMED Code(s): 857213585 (5) S/P MVR (mitral valve replacement) Current Visit: No Status: Acute Code(s): Z95.2 - PRESENCE OF PROSTHETIC HE ART VALVE SNOMED Code(s): 5809934269431 (6) Skin infection Current Visit: No Status: Acute Code(s): L08.9 - LOCAL INFECTION OF THE SKIN AND SUBCUTANEOUS TISSUE, UNSP SNOMED Code(s): 739522472 (7) History of breast cancer Current Visit: Yes Status: Acute Code(s): Z85.3 - PERSONAL HISTORY OF MALIGNANT NEOPLASM OF BREAST SNOMED Code(s): 014634509 Plan: Assessment and Recommendations: Worsening Breast Mass: Skin Changes - History of Breast Cancer - Remote >15years same breast - Check Tumor Markers - Repeat Breast Ultrasound - Review of CT and ultrasound - Tumor markers re-checked, no elevation, although no baseline comparison - Bone Scan Negative for any suspicious osseous lesions Discussed with General surgery and status post bedside repeat breast biopsy. Orders in for resuming aspirin and eliquis. Labwork is stable.
[2020-03-09 16:48] LABS: Glucose,Whole Blood 232 mg/dL (75-99)
[2020-03-09] MEDS: LORATADINE 10 MG TAB PEG/G-TUBE SCH (17:30)
[2020-03-09] MEDS: MULTIVITAMINS, THERA LIQUID 237 ML BOTTLE PO SCH (17:30)
[2020-03-09] MEDS: FERROUS SULFATE ORAL ELIXIR 300 MG/5 ML CUP PEG/G-TUBE SCH (17:30)
--- NOTE | 2020-03-09 18:38 | PN ---
PROGRESS NOTE DATE OF SERVICE: 03/08/2020 This patient is a 74-year-old white female who is doing better. Her arm is less red. She is more alert. She remains on broad-spectrum antibiotics. She is going to get a breast biopsy done tomorrow. Temperature 98.3, pulse 65, respiratory rate 16, blood pressure 139/82, oxygen saturation 94%. Lungs are clear. CARDIOVASCULAR: S1, S2. GI: Normal bowel sounds. PEG tube looks intact. Pupils equal, round, reactive. She is alert and oriented x1. ASSESSMENT: 1. Abnormal breast mass. 2. History of cerebrovascular accident. 3. Atrial fibrillation. 4. Cellulitis of left arm, improved. 5. Acute on chronic renal failure. 6. History of mitral valve replacement. 7. Skin infection. 8. History of breast cancer. We are waiting for surgical biopsy to be done. Aspirin has been held. Eliquis was last given on 03/07. Nursing will hold until biopsy is done. Please see further orders. MMODL / IJN: [id number] /
[2020-03-09 20:23] LABS: African American GFR (CKD) 73.5 (60.0-200.0); Albumin 3.7 g/dL (3.80-4.90); Albumin/Globulin Ratio 1.23 (1.60-3.17); Anion Gap 11.2 mmol/L (4.00-12.00); BUN/Creat Ratio 34.44 Ratio (12.00-20.00); Calcium 9.1 mg/dL (8.7-10.3); Carbon Dioxide 32.8 mmol/L (21.6-31.8); Non-African American GFR(CKD) 63.4 (60.0-200.0); Potassium 3.5 mmol/L (3.5-5.5); Total Bilirubin 0.3 mg/dL (0.3-1.2); Total Protein 6.7 g/dL (6.2-8.2)
[2020-03-09] MEDS: INSULIN DETEMIR (LEVEMIR) 100 UNIT/ML SYR SQ SCH (21:06)
[2020-03-09] MEDS: PRAVASTATIN SODIUM 40 MG TAB PO SCH (21:07)
[2020-03-09] MEDS: PANTOPRAZOLE SODIUM 40 MG GRANULE PKT PEG/G-TUBE SCH (21:08)
[2020-03-09 23:43] LABS: Glucose,Whole Blood 256 mg/dL (75-99)
[2020-03-10] MEDS: DILTIAZEM ORAL 30 MG TAB PEG/G-TUBE SCH ×3 (05:08→21:17)
[2020-03-10] MEDS: GABAPENTIN 100 MG CAP PEG/G-TUBE SCH ×3 (05:08→21:16)
[2020-03-10] MEDS: hydrOXYzine HCL 25 MG TAB PEG/G-TUBE SCH ×3 (05:09→21:17)
[2020-03-10] MEDS: PIPERACILLIN-TAZOBACTAM 3.375 GM in SODIUM CHLORIDE 0.9% 100 ML IVPB SCH ×3 (05:10→21:16)
[2020-03-10 06:09] LABS: Glucose,Whole Blood 218 mg/dL (75-99)
[2020-03-10] MEDS: INSULIN ASPART (NovoLOG) 100 UNIT/ML VIAL SQ SCH ×3 (06:10→18:15)
[2020-03-10 06:30] LABS: Anisocytosis Slight; Basophils # (A) 0.1 k/uL (0-0.2); Basophils % (A) 1 %; Eosinophils # (A) 0.6 k/uL (0-0.7); Eosinophils % (A) 5 %; HGB 11.6 gm/dL (11.4-16.0); Hypochromasia Marked; Lymphocytes # (A) 1.9 k/uL (1.0-4.8); Lymphocytes % (A) 18 %; MCH 23.7 pg (25.0-35.0); MCHC 30.5 g/dL (31.0-37.0); MCV 77.8 fL (80.0-100.0); Mean Platelet Volume 8.5; Microcytosis Slight; Monocytes # (A) 0.6 k/uL (0-1.0); Monocytes % (A) 6 %; Neutrophils # (A) 7.5 k/uL (1.3-7.7); Neutrophils % (A) 69 %; Platelet Count 243 k/uL (150-450); RBC 4.89 m/uL (3.80-5.40); RDW 16.8 % (11.5-15.5); WBC 10.9 k/uL (3.8-10.6)
[2020-03-10] MEDS: FUROSEMIDE 10 MG/ML 4 ML VIAL IV SCH ×2 (07:30→21:16)
[2020-03-10] MEDS: levETIRAcetam ORAL SOLN 500 MG/5 ML CUP PEG/G-TUBE SCH (07:31)
[2020-03-10] MEDS: METOPROLOL TARTRATE 50 MG TAB PEG/G-TUBE SCH ×2 (07:31→18:14)
[2020-03-10] MEDS: ASPIRIN 81 MG PO SCH (07:31)
[2020-03-10] MEDS: APIXABAN 2.5 MG TABLET PEG/G-TUBE SCH ×2 (07:31→18:15)
[2020-03-10] MEDS: HYDROPHILIC CREAM 180 GM TUBE TOPICAL SCH (07:31)
[2020-03-10] MEDS: CHOLESTYRAMINE (WITH SUGAR) 4 GM PACKET PEG/G-TUBE SCH (07:31)
[2020-03-10 09:40] LABS: African American GFR (CKD) 73.5 (60.0-200.0); Albumin 3.7 g/dL (3.80-4.90); Albumin/Globulin Ratio 1.28 (1.60-3.17); Anion Gap 7.6 mmol/L (4.00-12.00); BUN/Creat Ratio 37.78 Ratio (12.00-20.00); Calcium 9.3 mg/dL (8.7-10.3); Carbon Dioxide 34.4 mmol/L (21.6-31.8); Globulin 2.9 g/dL (1.6-3.3); Non-African American GFR(CKD) 63.4 (60.0-200.0); Potassium 3.6 mmol/L (3.5-5.5); Total Bilirubin 0.3 mg/dL (0.2-1.2); Total Protein 6.6 g/dL (6.2-8.2)
[2020-03-10 11:38] LABS: Glucose,Whole Blood 227 mg/dL (75-99)
[2020-03-10 12:59] VITALS: BMI 33.0
--- NOTE | 2020-03-10 13:11 | CDI ---
Documentation Clarification Form Date: 03/07/2020 03:41:57 PM From: Candice Diaz RN CCDS Admit Date: 03/06/2020 01:03:00 PM Patient Name: Ariane Eric Visit Number: [id number] Discharge Date: ATTENTION: The Clinical Documentation Specialists (CDI) and [facility] Coding Staff appreciate your assistance in clarifying documentation. Please respond to the clarification below the line at the bottom and electronically sign. The CDI & [facility] Coding staff will review the response and follow-up if needed. Please note: Queries are made part of the Legal Health Record. If you have any questions, please contact the author of this message via ITS. Dr. Luis A Gomez CHF is documented in the H&P 03/06. History/Risk Factors: 74-year-old female presents to the ED with leaking from PEG tube. Medical history: Atrial fibrillation; Atrial Flutter; heart failure and DM. Clinical Indicators: VS/Pulse OX 03/05: B/P 147/77; HR 78; Temp 98.2 F Oral; RR 18; SpO2 96% ra BNP 03/05: 1160 Echocardiogram Results 06/19/18: Left ventricular systolic function is mildly impaired with, an EF 45-50%. Right ventricle is normal size. The left atrium is markedly dilated. Chest X Ray 03/05: Mild heart failure. Pulmonary congestion slightly increased compared to old exam. Treatment: 03/06 Lasix IV x 1; Lasix IV Q12HR; 03/06 Lopressor peg/g-tube BID. In your professional opinion, can you please clarify the acuity and type of CHF if known? Acute on Chronic Systolic Heart Failure Acute on Chronic Diastolic Heart Failure Acute on Chronic Systolic and Diastolic Heart Failure Unable to Determine Other, please specify (Last Revision: May 2017) MTDD
--- NOTE | 2020-03-10 13:32 | P.PN ---
Subjective Progress Note Date: 03/10/20 HISTORY OF PRESENT ILLNESS This is a 74-year-old treated for PEG tube site cellulitis. Patient has been t reated with Zosyn. CAT scan of the abdomen did not mention abscess at the site. Patient continues to be lethargic and unable to provide information. Abdomen is soft. Patient is afebrile, heart rate 66, blood pressure 107/59, pulse ox 92% on room air. WBC 10.9. Creatinine 0.9. Blood culture showing no growth after 96 hours. Patient is status post excisional biopsy left breast lesion. PHYSICAL EXAMINATION Gen: This is a 74-year-old obese female. She is resting bed and appears comfortable. HEENT: Head is atraumatic, normocephalic. LUNGS: Clear to auscultation. No wheezes or rhonchi. No intercostal retractions. HEART: Regular rate and rhythm. No murmur. ABDOMEN: Soft. Bowel sounds are present. No masses. No tenderness. Mild erythema surrounding PEG tube. EXTREMITIES: No pedal edema. No calf tenderness. NEUROLOGICAL: Patient is lethargic. ASSESSMENT PEG tube site cellulitis without sign of abscess on CAT scan PLAN Continue Zosyn 3.375 g IV piggyback every 8 hours Continue supportive care Further recommendations based on patient's clinical course. The above dictated assessment and findings were discussed with Dr. Chavira. The impression and plan of care have been directed as dictated. Ariane March nurse practitioner acting as scribe for Dr. Chavira. Objective - Vital Signs Vital signs: Vital Signs Temp 99 F 03/10/20 07:38 Pulse 66 03/10/20 07:38 Resp 22 03/10/20 07:38 BP 107/59 03/10/20 07:38 Pulse Ox 92 L 03/10/20 07:38 Intake & Output 03/09/20 03/10/20 03/10/20 18:59 06:59 18:59 Output Total 1050 Balance -1050 Weight 82.5 kg 82 kg Output: Urine 1050 Other: Voiding Method Diaper Diaper Incontinent Incontinent - Labs CBC & Chem 7: 03/10/20 06:11 03/10/20 06:11 Labs: Abnormal Lab Results - Last 24 Hours (Table) 03/09/20 03/09/20 03/09/20 Range/Units 05:51 12:00 16:44 WBC (3.8-10.6) k/uL MCV (80.0-100.0) fL MCH (25.0-35.0) pg MCHC (31.0-37.0) g/dL RDW (11.5-15.5) % Carbon Dioxide 32.8 H (21.6-31.8) mmol/L BUN 31.0 H (9.0-27.0) mg/dL BUN/Creatinine Ratio 34.44 H (12.00-20.00) Ratio Glucose 172 H (70-110) mg/dL POC Glucose (mg/dL) 234 H 232 H (75-99) mg/dL Albumin 3.70 L (3.80-4.90) g/dL Albumin/Globulin Ratio 1.23 L (1.60-3.17) g/dL 03/09/20 03/10/20 03/10/20 Range/Units 23:42 06:03 06:11 WBC 10.9 H (3.8-10.6) k/uL MCV 77.8 L (80.0-100.0) fL MCH 23.7 L (25.0-35.0) pg MCHC 30.5 L (31.0-37.0) g/dL RDW 16.8 H (11.5-15.5) % Carbon Dioxide (21.6-31.8) mmol/L BUN (9.0-27.0) mg/dL BUN/Creatinine Ratio (12.00-20.00) Ratio Glucose (70-110) mg/dL POC Glucose (mg/dL) 256 H 218 H (75-99) mg/dL Albumin (3.80-4.90) g/dL Albumin/Globulin Ratio (1.60-3.17) g/dL 03/10/20 Range/Units 06:11 WBC (3.8-10.6) k/uL MCV (80.0-100.0) fL MCH (25.0-35.0) pg MCHC (31.0-37.0) g/dL RDW (11.5-15.5) % Carbon Dioxide 34.4 H (21.6-31.8) mmol/L BUN 34.0 H (9.0-27.0) mg/dL BUN/Creatinine Ratio 37.78 H (12.00-20.00) Ratio Glucose 193 H (70-110) mg/dL POC Glucose (mg/dL) (75-99) mg/dL Albumin 3.70 L (3.80-4.90) g/dL Albumin/Globulin Ratio 1.28 L (1.60-3.17) g/dL Microbiology - Last 24 Hours (Table) 03/05/20 21:08 Blood Culture - Preliminary Blood No Growth after 96 hours 03/05/20 21:01 Blood Culture - Preliminary Blood No Growth after 96 hours
--- NOTE | 2020-03-10 13:53 | PN ---
PROGRESS NOTE Her blood cultures are negative for 96 hours. She is status post breast biopsy. Awaiting on the pathology. She continues on broad-spectrum antibiotics for cellulitis of the breast, chest and left arm. Reviewed CT scans and bone scans are negative for potential concerns of malignancy. Eliquis is restarted, status post breast biopsy. Temperature 97.8, respiratory rate 16 to 18, pulse 60 to 70s, blood pressure 130s over 70s, O2 96 on room air. CARDIOVASCULAR: S1, S2. LUNGS: Clear. PSYCH: Pleasantly confused. GI: Soft. ASSESSMENT: 1. Acute on chronic renal failure. 2. Status post mitral valve replacement. 3. Skin infection. 4. Dementia. 5. Breast cancer. 6. History of cellulitis of the arm, improved. 7. History of cerebrovascular accident. 8. Atrial fibrillation. Wait for breast biopsy pathology. Continue with IV antibiotics. Prognosis guarded. MMODL / IJN: [id number] /
[2020-03-10 17:30] LABS: Glucose,Whole Blood 239 mg/dL (75-99)
[2020-03-10] MEDS: LORATADINE 10 MG TAB PEG/G-TUBE SCH (18:13)
[2020-03-10] MEDS: MULTIVITAMINS, THERA LIQUID 237 ML BOTTLE PO SCH (18:15)
[2020-03-10] MEDS: FERROUS SULFATE ORAL ELIXIR 300 MG/5 ML CUP PEG/G-TUBE SCH (18:15)
--- NOTE | 2020-03-10 19:36 | P.PN ---
Subjective Progress Note Date: 03/10/20 Principal diagnosis: Breast mass Biopsy resulted negative for cancer cells again. Will defer back to primary team and sign off for now. Objective - Vital Signs Vital signs: Vital Signs Temp 98.8 F 03/10/20 14:00 Pulse 81 03/10/20 14:00 Resp 18 03/10/20 14:00 BP 136/81 03/10/20 14:00 Pulse Ox 95 03/10/20 14:00 Intake & Output 03/10/20 03/10/20 03/11/20 06:59 18:59 06:59 Output Total 1050 700 Balance -1050 -700 Weight 82 kg 82 kg Output: Urine 1050 700 Other: Voiding Method Diaper Diaper Incontinent Incontinent # Bowel Movements 1 - Exam - Exam - Constitutional General appearance: morbidly obese - EENT Eyes: PERRLA Ears: bilateral: normal - Neck Carotids: bilateral: upstroke normal - Respiratory Respiratory: bilateral: diminished, SKIN: Left Breast mass and skin changes noted Abdomen: PEG Tube - Cardiovascular Heart sounds: normal: S1, S2 - Gastrointestinal General gastrointestinal: normal bowel sounds - Musculoskeletal Musculoskeletal: generalized weakness, left sided weakness Left upper extremity cellulitis and Edema - Labs CBC & Chem 7: 03/10/20 06:11 03/10/20 06:11 Labs: Abnormal Lab Results - Last 24 Hours (Table) 03/09/20 03/09/20 03/10/20 Range/Units 05:51 23:42 06:03 WBC (3.8-10.6) k/uL MCV (80.0-100.0) fL MCH (25.0-35.0) pg MCHC (31.0-37.0) g/dL RDW (11.5-15.5) % Carbon Dioxide 32.8 H (21.6-31.8) mmol/L BUN 31.0 H (9.0-27.0) mg/dL BUN/Creatinine Ratio 34.44 H (12.00-20.00) Ratio Glucose 172 H (70-110) mg/dL POC Glucose (mg/dL) 256 H 218 H (75-99) mg/dL Albumin 3.70 L (3.80-4.90) g/dL Albumin/Globulin Ratio 1.23 L (1.60-3.17) g/dL 03/10/20 03/10/20 03/10/20 Range/Units 06:11 06:11 11:36 WBC 10.9 H (3.8-10.6) k/uL MCV 77.8 L (80.0-100.0) fL MCH 23.7 L (25.0-35.0) pg MCHC 30.5 L (31.0-37.0) g/dL RDW 16.8 H (11.5-15.5) % Carbon Dioxide 34.4 H (21.6-31.8) mmol/L BUN 34.0 H (9.0-27.0) mg/dL BUN/Creatinine Ratio 37.78 H (12.00-20.00) Ratio Glucose 193 H (70-110) mg/dL POC Glucose (mg/dL) 227 H (75-99) mg/dL Albumin 3.70 L (3.80-4.90) g/dL Albumin/Globulin Ratio 1.28 L (1.60-3.17) g/dL 03/10/20 Range/Units 17:28 WBC (3.8-10.6) k/uL MCV (80.0-100.0) fL MCH (25.0-35.0) pg MCHC (31.0-37.0) g/dL RDW (11.5-15.5) % Carbon Dioxide (21.6-31.8) mmol/L BUN (9.0-27.0) mg/dL BUN/Creatinine Ratio (12.00-20.00) Ratio Glucose (70-110) mg/dL POC Glucose (mg/dL) 239 H (75-99) mg/dL Albumin (3.80-4.90) g/dL Albumin/Globulin Ratio (1.60-3.17) g/dL Microbiology - Last 24 Hours (Table) 03/05/20 21:08 Blood Culture - Preliminary Blood No Growth after 96 hours 03/05/20 21:01 Blood Culture - Preliminary Blood No Growth after 96 hours Assessment and Plan (1) History of CVA (cerebrovascular accident) Current Visit: Yes Status: Acute Code(s): Z86.73 - PRSNL HX OF TIA (TIA), AND CEREB INFRC W/O RESID DEFICITS SNOMED Code(s): 412905386 (2) Afib Current Visit: No Status: Acute Code(s): I48.91 - UNSPECIFIED ATRIAL FIBRILLATION SNOMED Code(s): 40669862 (3) Left breast mass Current Visit: No Status: Acute Code(s): N63.20 - UNSPECIFIED LUMP IN THE LEFT BREAST, UNSPECIFIED QUADRANT SNOMED Code(s): 11895246 (4) Renal failure (ARF), acute on chronic Current Visit: No Status: Acute Code(s): N17.9 - ACUTE KIDNEY FAILURE, UNSPECIFIED SNOMED Code(s): 844961188 (5) S/P MVR (mitral valve replacement) Current Visit: No Status: Acute Code(s): Z95.2 - PRESENCE OF PROSTHETIC HEART VALVE SNOMED Code(s): 3536796225466 (6) Skin infection Current Visit: No Status: Acute Code(s): L08.9 - LOCAL INFECTION OF THE SKIN AND SUBCUTANEOUS TISSUE, UNSP SNOMED Code(s): 091737001 (7) History of breast cancer Current Visit: Yes Status: Acute Code(s): Z85.3 - PERSONAL HISTORY OF MALIGNANT NEOPLASM OF BREAST SNOMED Code(s): 160177695 Plan: Assessment and Recommendations: Worsening Breast Mass: Skin Changes - History of Breast Cancer - Remote >15years same breast - Check Tumor Markers - Repeat Breast Ultrasound - Review of CT and ultrasound - Tumor markers re-checked, no elevation, although no baseline comparison - Bone Scan Negative for any suspicious osseous lesions - Status post repeat biosy is negative Attempted to call JAIME Mantilla, no answer no message able to be left.
[2020-03-10] MEDS: INSULIN DETEMIR (LEVEMIR) 100 UNIT/ML SYR SQ SCH (21:16)
[2020-03-10] MEDS: PANTOPRAZOLE SODIUM 40 MG GRANULE PKT PEG/G-TUBE SCH (21:16)
[2020-03-10] MEDS: PRAVASTATIN SODIUM 40 MG TAB PO SCH (21:17)
[2020-03-10 22:58] LABS: Hemoglobin A1C 6.2 % (4.0-6.0)
[2020-03-11 00:29] LABS: Glucose,Whole Blood 314 mg/dL (75-99)
[2020-03-11] MEDS: INSULIN ASPART (NovoLOG) 100 UNIT/ML VIAL SQ SCH ×5 (00:37→23:46)
[2020-03-11] MEDS: DILTIAZEM ORAL 30 MG TAB PEG/G-TUBE SCH ×3 (05:46→20:59)
[2020-03-11] MEDS: hydrOXYzine HCL 25 MG TAB PEG/G-TUBE SCH ×3 (05:46→20:59)
[2020-03-11] MEDS: PIPERACILLIN-TAZOBACTAM 3.375 GM in SODIUM CHLORIDE 0.9% 100 ML IVPB SCH ×3 (05:46→21:00)
[2020-03-11] MEDS: GABAPENTIN 100 MG CAP PEG/G-TUBE SCH ×3 (05:46→20:59)
[2020-03-11 05:58] LABS: Glucose,Whole Blood 218 mg/dL (75-99)
[2020-03-11 06:06] LABS: Anisocytosis Slight; Basophils # (A) 0.1 k/uL (0-0.2); Basophils % (A) 1 %; Eosinophils # (A) 0.4 k/uL (0-0.7); Eosinophils % (A) 4 %; HCT 37.6 % (34.0-46.0); HGB 11.6 gm/dL (11.4-16.0); Hypochromasia Marked; Lymphocytes # (A) 2.2 k/uL (1.0-4.8); Lymphocytes % (A) 22 %; MCH 24.2 pg (25.0-35.0); MCHC 30.9 g/dL (31.0-37.0); MCV 78.5 fL (80.0-100.0); Mean Platelet Volume 8.9; Microcytosis Slight; Monocytes # (A) 0.6 k/uL (0-1.0); Monocytes % (A) 6 %; Neutrophils # (A) 6.8 k/uL (1.3-7.7); Neutrophils % (A) 66 %; Platelet Count 243 k/uL (150-450); RBC 4.79 m/uL (3.80-5.40); RDW 16.9 % (11.5-15.5); WBC 10.3 k/uL (3.8-10.6)
[2020-03-11] MEDS: FUROSEMIDE 10 MG/ML 4 ML VIAL IV SCH ×2 (08:31→20:59)
[2020-03-11] MEDS: ASPIRIN 81 MG PO SCH (08:31)
[2020-03-11] MEDS: METOPROLOL TARTRATE 50 MG TAB PEG/G-TUBE SCH ×2 (08:31→17:13)
[2020-03-11] MEDS: APIXABAN 2.5 MG TABLET PEG/G-TUBE SCH ×2 (08:31→17:13)
[2020-03-11] MEDS: levETIRAcetam ORAL SOLN 500 MG/5 ML CUP PEG/G-TUBE SCH (08:32)
[2020-03-11] MEDS: CHOLESTYRAMINE (WITH SUGAR) 4 GM PACKET PEG/G-TUBE SCH (08:33)
--- NOTE | 2020-03-11 09:08 | PN ---
PROGRESS NOTE A 74-year-old white female, cellulitis of left arm, status post biopsy. Blood cultures negative for 96 hours. Awaiting for pathology report on the breast biopsy. Continue current treatments for cellulitis of the left arm. PEG tube feeding doing well. She is breathing decent. Biopsies are negative for any cancer cells. , they signed off. Will possibly continue current antibiotics per Dr. Chavira's recommendation. She is comfortably confused. CARDIOVASCULAR: S1, S2. LUNGS: Clear. GI: Soft. HEMATOLOGY: Negative Homans. Please see further orders. Follow up as an outpatient. MMODL / IJN: [id number] /
[2020-03-11 09:26] LABS: African American GFR (CKD) 73.5 (60.0-200.0); Albumin 3.8 g/dL (3.80-4.90); Albumin/Globulin Ratio 1.36 (1.60-3.17); Anion Gap 11.8 mmol/L (4.00-12.00); BUN/Creat Ratio 41.11 Ratio (12.00-20.00); Calcium 9.4 mg/dL (8.7-10.3); Carbon Dioxide 33.2 mmol/L (21.6-31.8); Globulin 2.8 g/dL (1.6-3.3); Non-African American GFR(CKD) 63.4 (60.0-200.0); Potassium 3.7 mmol/L (3.5-5.5); Total Bilirubin 0.3 mg/dL (0.2-1.2); Total Protein 6.6 g/dL (6.2-8.2)
--- NOTE | 2020-03-11 10:39 | P.PN ---
Subjective Progress Note Date: 03/11/20 Principal diagnosis: Presumed aspiration pneumonia Hard mass on left thoracic wall with an ulcerated lesion Cellulitis around PEG tube placement site Right plantar ulcer History of stroke with left hemiparesis Chronic atrial fibrillation Advanced dementia multi-infarct likely Dyslipidemia Hypertension hypertensive cardiovascular disease Sleep disorder breathing and sleep apnea History of migraine headaches lower GI bleed incontinence and UTI 03/11/2020, patient seen eval examined during the rounds labs reviewed medications reviewed, patient remains on room air breathing comfortably, she is status post biopsy of right thoracic wall dense hard masslike lesion, results are reviewed negative for malignancy, positive for chronic inflammation, general surgery has been re- consulted for changing PEG tube as appears to be clogged and tube feeding along with flushes not going in 03/09/2020, patient seen eval reexamined remains on broad-spectrum antibiotics, oriented 1, cellulitis in the abdominal wall continued to improve cultures have been negative respiratory status stable 03/08/2020, patient seen and evaluated examined resting comfortably at room air oriented [address] and bone scan results are pending 03/07/2020, patient is more awake today oriented 1, oncology service to evaluate the patient, respiratory status remained stable remains on broad- spectrum antibiotics, cellulitis around the PEG tube site continued to improve, chest x-ray performed today reviewed finding consistent with left lower lobe aspiration pneumonia This is a 74-year-old female seen eval reexamined on fourth floor, patient admitted into the hospital with abnormal labs, patient is a resident of [facility], [place], patient has been found to have early case through the PEG tube, she has been hypoglycemic, she was found to have a pneumonia on outpatient basis has been started on IV antibiotics she has a left hemiparesis due to prior stroke, right-sided foot ulcer on plantar aspect, she is awake oriented 1 as a baseline, she has been found to have ulcerative lesion in the left breast with a history of prior breast cancer oncology has been asked to evaluate the patient as well, at PEG tube insertion site some ongoing cellulitis present for which she was on Keflex, her admitted chest x-ray significant for cardiomegaly interstitial edema right-sided pacemaker, currently she is on anticoagulation with direct oral anticoagulant, has been getting Lasix for diuresis, and Zosyn for possible aspiration pneumonia, Objective - Vital Signs Vital signs: Vital Signs Temp 99.0 F 03/11/20 07:28 Pulse 70 03/11/20 07:28 Resp 16 03/11/20 07:28 BP 111/57 03/11/20 07:28 Pulse Ox 96 03/11/20 07:28 Intake & Output 03/10/20 03/11/20 03/11/20 18:59 06:59 18:59 Output Total 700 Balance -700 Weight 82 kg 78.5 kg Output: Urine 700 Other: Voiding Method Diaper Diaper Diaper Incontinent Incontinent Incontinent # Voids 2 # Bowel Movements 1 - Exam - Constitutional General appearance: average body habitus, disheveled, morbidly obese - EENT Eyes: PERRLA Ears: bilateral: normal - Neck Carotids: bilateral: upstroke normal - Respiratory Respiratory: bilateral: diminished, dense hard thoracic wall mass left chest - Cardiovascular Heart sounds: normal: S1, S2 - Gastrointestinal General gastrointestinal: normal bowel sounds - Musculoskeletal Musculoskeletal: generalized weakness, left sided weakness - Labs CBC & Chem 7: 03/11/20 05:41 03/11/20 05:41 Labs: Abnormal Lab Results - Last 24 Hours (Table) 03/10/20 03/10/20 03/10/20 Range/Units 06:11 11:36 17:28 MCV (80.0-100.0) fL MCH (25.0-35.0) pg MCHC (31.0-37.0) g/dL RDW (11.5-15.5) % Sodium (135-145) mmol/L Carbon Dioxide (21.6-31.8) mmol/L BUN (9.0-27.0) mg/dL BUN/Creatinine Ratio (12.00-20.00) Ratio Glucose (70-110) mg/dL POC Glucose (mg/dL) 227 H 239 H (75-99) mg/dL Hemoglobin A1c 6.2 H (4.0-6.0) % Albumin/Globulin Ratio (1.60-3.17) g/dL 03/11/20 03/11/20 03/11/20 Range/Units 00:28 05:41 05:41 MCV 78.5 L (80.0-100.0) fL MCH 24.2 L (25.0-35.0) pg MCHC 30.9 L (31.0-37.0) g/dL RDW 16.9 H (11.5-15.5) % Sodium 146 H (135-145) mmol/L Carbon Dioxide 33.2 H (21.6-31.8) mmol/L BUN 37.0 H (9.0-27.0) mg/dL BUN/Creatinine Ratio 41.11 H (12.00-20.00) Ratio Glucose 230 H (70-110) mg/dL POC Glucose (mg/dL) 314 H (75-99) mg/dL Hemoglobin A1c (4.0-6.0) % Albumin/Globulin Ratio 1.36 L (1.60-3.17) g/dL 03/11/20 Range/Units 05:57 MCV (80.0-100.0) fL MCH (25.0-35.0) pg MCHC (31.0-37.0) g/dL RDW (11.5-15.5) % Sodium (135-145) mmol/L Carbon Dioxide (21.6-31.8) mmol/L BUN (9.0-27.0) mg/dL BUN/Creatinine Ratio (12.00-20.00) Ratio Glucose (70-110) mg/dL POC Glucose (mg/dL) 218 H (75-99) mg/dL Hemoglobin A1c (4.0-6.0) % Albumin/Globulin Ratio (1.60-3.17) g/dL Microbiology - Last 24 Hours (Table) 03/05/20 21:08 Blood Culture - Preliminary Blood No Growth after 120 hours 03/05/20 21:01 Blood Culture - Preliminary Blood No Growth after 120 hours Assessment and Plan Assessment: Clogged PEG tube Left lower lobe aspiration pneumonia Left-sided thoracic wall hard indurated mass biopsy negative Cellulitis around PEG tube placement site Right plantar ulcer History of stroke with left hemiparesis Chronic atrial fibrillation Advanced dementia multi-infarct likely Dyslipidemia Hypertension hypertensive cardiovascular disease Sleep disorder breathing and sleep apnea History of migraine headaches lower GI bleed incontinence and UTI Plan: PEG tube needs to be changed general surgery has been consulted Continue IV Zosyn Repeat chest x-ray reviewed consistent with left lower lobe pneumonia Continue gentle hydration Workup for breast cancer in progress status post CT of the chest abdominal and pelvis, ultrasound of the breast, and bone scan and core biopsy results negative for malignancy chronic inflammation Further recommendations pending plan of care is working response of the patient Time with Patient: Greater than 30
[2020-03-11] MEDS: HYDROPHILIC CREAM 180 GM TUBE TOPICAL SCH (10:56)
[2020-03-11 11:30] LABS: Glucose,Whole Blood 229 mg/dL (75-99)
--- NOTE | 2020-03-11 12:55 | P.GSCN ---
History of Present Illness Consult date: 03/11/20 History of present illness: CONSULT REASON: Malfunctioning PEG tube HISTORY OF PRESENT ILLNESS: This is a 74-year-old female with a known history of dementia, atrial fibrillation, diabetes mellitus, CVA, breast cancer, hypertension and hyperlipidemia. Patient has known history of dysphagia due to her stroke with PEG tube. Patient was brought into the emergency room from [facility] for concerns of cellulitis in the upper extremity and around the PEG tube site. She is on antibiotics and followed by infectious disease. Dr. Brower was consulted in regards to malfunctioning PEG tube. Per nursing staff the PEG tube is clogged as well as leaking from the side of the tube. PAST MEDICAL HISTORY: See list. PAST SURGICAL HISTORY: See list. MEDICATIONS: See list. ALLERGIES: See list. SOCIAL HISTORY: No illicit drug use. REVIEW OF SYSTEMS: CONSTITUTIONAL: Denies fever or chills. HEENT: Denies blurred vision, vision changes, or eye pain. Denies hemoptysis CARDIOVASCULAR: Denies chest pain or pressure. RESPIRATORY: No shortness of breath. GASTROINTESTINAL: See HPI for pertinent findings HEMATOLOGIC: Denies bleeding disorders. GENITOURINARY: Denies any blood in urine or increased urinary frequency. SKIN: Denies pruitis. Denies rash. PHYSICAL EXAM: VITAL SIGNS: Reviewed GENERAL: Well-developed in no acute distress. HEENT: No sclera icterus. Extraocular movements grossly intact. Moist buccal mucosa. Head is atraumatic, normocephalic. No nasal drainage. ABDOMEN: Soft. Nondistended. Nontender mild erythema noted around PEG tube site NEUROLOGIC: Lethargic LABORATORY DATA: WBC 10.3 hemoglobin 11.6 creatinine 0.9 BUN 36 IMAGING: ASSESSMENT: 1. Malfunctioning PEG tube PLAN: -Patient is status post bedside PEG tube replacement by Dr. Brower -Okay to resume tube feedings Thank you for this consultation Physician Clinical Data Research note has been reviewed by physician. Signing provider agrees with the documented findings, assessment, and plan of care. Past Medical History Past Medical History: Atrial Fibrillation, Atrial Flutter, Asthma, Cancer, Heart Failure, CVA/TIA, Dementia, Diabetes Mellitus, GERD/Reflux, GI Bleed, Hyperlipidemia, Hypertension, Pneumonia, Sleep Apnea/CPAP/BIPAP Additional Past Medical History / Comment(s): Verified with [facility] r/t son Jose Rafael being unsure of history. Jose Rafael states he is also pt's DPOA. 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, post traumatic seizures, History of Any Multi-Drug Resistant Organisms: None Reported Past Surgical History: Breast Surgery, Cardiac Valve Replacement, Heart C atheterization With Stent, Hysterectomy, Orthopedic Surgery, Pacemaker, Tonsillectomy Additional Past Surgical History / Comment(s): Peg tube, mechanical mitral valve 2000, polypectomy spinal cord/cyst removed, TEEs, CVNs, colonoscopies, bilateral cataract removal/lens implants, L rotator cuff repair, R femur fracture with IM hip/screw/nail, L breast lumpectomy, Past Anesthesia/Blood Transfusion Reactions: No Reported Reaction Date of Last Stent Placement:: 2006 Type of Cardiac Device: Permanent Pacemaker Device Placement Date:: 2009 Past Psychological History: Depression Smoking Status: Unknown if ever smoked Past Alcohol Use History: Unable to Obtain Past Drug Use History: Unable to Obtain - Past Family History Father Family Medical History: GI Bleed Additional Family Medical History / Comment(s): OF BLEEDING ULCER AT AGE 64 Mother Family Medical History: Cancer, CVA/TIA Additional Family Medical History / Comment(s): HX STROKES, COLON CANCER Medications and Allergies Home Medications Medication Instructions Recorded Confirmed Type Pravastatin Sodium [Pravachol] 40 mg PEG/G-TUBE HS@209905/20/17 03/05/20 History levETIRAcetam [Keppra Oral 100 mg PEG/G-TUBE DAILY@0800 09/27/17 03/05/20 History Solution] Aspirin 81 mg PEG/G-TUBE DAILY@0800 05/30/18 03/05/20 History Metoprolol Tartrate [Lopressor] 100 mg PEG/G-TUBE BID@0800,1700 05/30/18 03/05/20 History Omeprazole Susp 2mg/Ml 20 mg PEG/G-TUBE HS@209905/30/18 03/05/20 History Acetaminophen Oral Susp [Tylenol] 650 mg PEG/G-TUBE Q6H PRN 12/25/19 03/05/20 History Apixaban [Eliquis] 2.5 mg PEG/G-TUBE BID@0800,1700 12/25/19 03/05/20 History Cetirizine HCl 10 mg PEG/G-TUBE DAILY@1700 12/25/19 03/05/20 History Cholestyramine/Aspartame 4 gm PEG/G-TUBE DAILY@0800 12/25/19 03/05/20 History [Cholestyramine Light Packet] Diltiazem Oral [Cardizem*] 30 mg PEG/G-TUBE TID@0600,1400,2200 12/25/19 03/05/20 History Feosol Liquid 220mg/5ml 330 mg PEG/G-TUBE DAILY@1700 12/25/19 03/05/20 History Gabapentin Solution 250mg/5ml 100 mg PEG/G-TUBE 12/25/19 03/05/20 History TID@0600,1400,2100 Insulin Detemir (Levemir) [Levemir] 48 unit SQ HS 12/25/19 03/05/20 History Liquacel 30 ml PEG/G-TUBE BID@1200,2100 12/25/19 03/05/20 History Magnesium Hydroxide [Milk of 7,200 mg PEG/G-TUBE DAILY PRN 12/25/19 03/05/20 History Magnesia Concentrate] Multivitamins, Thera Liquid 5 ml PO DAILY@1700 12/25/19 03/05/20 History [Theragran Liquid (formulary)] Na Phos,M-B/Na Phos,Di-Ba [Fleet 133 ml RECTAL DAILY PRN 12/25/19 03/05/20 History Adult] bisacodyL [Dulcolax] 10 mg RECTAL DAILY PRN 12/25/19 03/05/20 History hydrOXYzine HCL 25 mg PEG/G-TUBE TID@0600,1400,2200 12/25/19 03/05/20 History metFORMIN HCL [metFORMIN HCL Oral 1,000 mg PEG/G-TUBE BID@0800,1700 12/25/19 03/05/20 History Soln] Hydrophilic Cream [Triad Cream] 1 applic TOPICAL DAILY applic 01/01/20 03/05/20 Rx Cephalexin [Keflex] 500 mg PEG/G-TUBE BID@0600,1800 03/05/20 03/05/20 History INSULIN ASPART (NovoLOG) [NovoLOG See Protocol SQ Q6HR 03/05/20 03/05/20 History (formulary)] metroNIDAZOLE [Metrogel 1%] 1 applic TOPICAL DAILY 03/05/20 03/05/20 History Allergies Allergy/AdvReac Type Severity Reaction Status Date / Time ciprofloxacin [From Cipro] Allergy Rash/Hives Verified 03/05/20 20:30 ciprofloxacin HCl Allergy Rash/Hives Verified 03/05/20 20:30 [From Cipro] Quinolones Allergy Unknown Verified 03/05/20 20:30 Surgical - Exam Vital Signs Temp Pulse Resp BP Pulse Ox 98.2 F 78 18 147/77 96 03/05/20 20:19 03/05/20 20:19 03/05/20 20:19 03/05/20 20:19 03/05/20 20:19 Results - Labs 03/11/20 05:41 03/11/20 05:41 Abnormal Lab Results - Last 24 Hours (Table) 03/10/20 03/10/20 03/11/20 Range/Units 06:11 17:28 00:28 MCV (80.0-100.0) fL MCH (25.0-35.0) pg MCHC (31.0-37.0) g/dL RDW (11.5-15.5) % Sodium (135-145) mmol/L Carbon Dioxide (21.6-31.8) mmol/L BUN (9.0-27.0) mg/dL BUN/Creatinine Ratio (12.00-20.00) Ratio Glucose (70-110) mg/dL POC Glucose (mg/dL) 239 H 314 H (75-99) mg/dL Hemoglobin A1c 6.2 H (4.0-6.0) % Albumin/Globulin Ratio (1.60-3.17) g/dL 03/11/20 03/11/20 03/11/20 Range/Units 05:41 05:41 05:57 MCV 78.5 L (80.0-100.0) fL MCH 24.2 L (25.0-35.0) pg MCHC 30.9 L (31.0-37.0) g/dL RDW 16.9 H (11.5-15.5) % Sodium 146 H (135-145) mmol/L Carbon Dioxide 33.2 H (21.6-31.8) mmol/L BUN 37.0 H (9.0-27.0) mg/dL BUN/Creatinine Ratio 41.11 H (12.00-20.00) Ratio Glucose 230 H (70-110) mg/dL POC Glucose (mg/dL) 218 H (75-99) mg/dL Hemoglobin A1c (4.0-6.0) % Albumin/Globulin Ratio 1.36 L (1.60-3.17) g/dL 03/11/20 Range/Units 11:29 MCV (80.0-100.0) fL MCH (25.0-35.0) pg MCHC (31.0-37.0) g/dL RDW (11.5-15.5) % Sodium (135-145) mmol/L Carbon Dioxide (21.6-31.8) mmol/L BUN (9.0-27.0) mg/dL BUN/Creatinine Ratio (12.00-20.00) Ratio Glucose (70-110) mg/dL POC Glucose (mg/dL) 229 H (75-99) mg/dL Hemoglobin A1c (4.0-6.0) % Albumin/Globulin Ratio (1.60-3.17) g/dL Microbiology - Last 24 Hours (Table) 03/05/20 21:08 Blood Culture - Preliminary Blood No Growth after 120 hours 03/05/20 21:01 Blood Culture - Preliminary Blood No Growth after 120 hours Diabetes panel 03/10/20 03/11/20 Range/Units 06:11 05:41 Sodium 146 H (135-145) mmol/L Potassium 3.7 (3.5-5.5) mmol/L Chloride 101 (96-109) mmol/L Carbon Dioxide 33.2 H (21.6-31.8) mmol/L BUN 37.0 H (9.0-27.0) mg/dL Creatinine 0.9 (0.6-1.5) mg/dL Glucose 230 H (70-110) mg/dL Hemoglobin A1c 6.2 H (4.0-6.0) % Calcium 9.4 (8.7-10.3) mg/dL AST 18 (13-35) U/L ALT 21 (8-44) U/L Alkaline Phosphatase 103 (41-126) U/L Total Protein 6.6 (6.2-8.2) g/dL Albumin 3.80 (3.80-4.90) g/dL Calcium panel 03/11/20 Range/Units 05:41 Calcium 9.4 (8.7-10.3) mg/dL Albumin 3.80 (3.80-4.90) g/dL Pituitary panel 03/11/20 Range/Units 05:41 Sodium 146 H (135-145) mmol/L Potassium 3.7 (3.5-5.5) mmol/L Chloride 101 (96-109) mmol/L Carbon Dioxide 33.2 H (21.6-31.8) mmol/L BUN 37.0 H (9.0-27.0) mg/dL Creatinine 0.9 (0.6-1.5) mg/dL Glucose 230 H (70-110) mg/dL Calcium 9.4 (8.7-10.3) mg/dL Adrenal panel 03/11/20 Range/Units 05:41 Sodium 146 H (135-145) mmol/L Potassium 3.7 (3.5-5.5) mmol/L Chloride 101 (96-109) mmol/L Carbon Dioxide 33.2 H (21.6-31.8) mmol/L BUN 37.0 H (9.0-27.0) mg/dL Creatinine 0.9 (0.6-1.5) mg/dL Glucose 230 H (70-110) mg/dL Calcium 9.4 (8.7-10.3) mg/dL Total Bilirubin 0.3 (0.2-1.2) mg/dL AST 18 (13-35) U/L ALT 21 (8-44) U/L Alkaline Phosphatase 103 (41-126) U/L Total Protein 6.6 (6.2-8.2) g/dL Albumin 3.80 (3.80-4.90) g/dL
--- NOTE | 2020-03-11 13:56 | P.OP ---
Date of Procedure: 03/11/20 Preoperative Diagnosis: PEG tube malfunction Postoperative Diagnosis: PEG tube malfunction Procedure(s) Performed: Replacement of PEG tube Anesthesia: none Surgeon: Marco A Brower Pathology: none sent Condition: stable Disposition: PACU Description of Procedure: The patient's placed and then the supine position. The PEG tube was grasped and withdrawn from the patient. The new replacement MARI tube was placed through the tract. The balloon was inflated with 20 mL of water. Patient tolerated the pro cedure well.
--- NOTE | 2020-03-11 14:16 | P.PN ---
Subjective Progress Note Date: 03/11/20 HISTORY OF PRESENT ILLNESS This is a 74-year-old treated for PEG tube site cellulitis. Patient has been t reated with Zosyn. CAT scan of the abdomen did not mention abscess at the site. Patient continues to be lethargic and unable to provide information. Abdomen is soft. Patient is afebrile, heart rate 70, blood pressure 111/57, pulse ox 96% on room air. WBC 10.3. Creatinine 0.9. Blood culture showing no growth after 120 hours. Patient is status post excisional biopsy left breast lesion. Patie nt is status post placement of PEG tube done today by Dr. Brower. PHYSICAL EXAMINATION Gen: This is a 74-year-old obese female. She is resting bed and appears comfortable. HEENT: Head is atraumatic, normocephalic. LUNGS: Clear to auscultation. No wheezes or rhonchi. No intercostal retrac tions. HEART: Regular rate and rhythm. No murmur. ABDOMEN: Soft. Bowel sounds are present. No masses. No tenderness. Mild erythema surrounding PEG tube. EXTREMITIES: No pedal edema. No calf tenderness. NEUROLOGICAL: Patient is lethargic. ASSESSMENT PEG tube site cellulitis without sign of abscess on CAT scan PLAN Continue Zosyn 3.375 g IV piggyback every 8 hours Continue supportive care Further recommendations based on patient's clinical course. The above dictated assessment and findings were discussed with Dr. Chavira. The impression and plan of care have been directed as dictated. Ariane March nurse practitioner acting as scribe for Dr. Chavira. Objective - Vital Signs Vital signs: Vital Signs Temp 99.0 F 03/11/20 07:28 Pulse 70 03/11/20 07:28 Resp 16 03/11/20 07:28 BP 111/57 03/11/20 07:28 Pulse Ox 96 03/11/20 07:28 Intake & Output 03/10/20 03/11/20 03/11/20 18:59 06:59 18:59 Output Total 700 Balance -700 Weight 82 kg 78.5 kg Output: Urine 700 Other: Voiding Method Diaper Diaper Diaper Incontinent Incontinent Incontinent # Voids 2 # Bowel Movements 1 - Labs CBC & Chem 7: 03/11/20 05:41 03/11/20 05:41 Labs: Abnormal Lab Results - Last 24 Hours (Table) 03/10/20 03/10/20 03/11/20 Range/Units 06:11 17:28 00:28 MCV (80.0-100.0) fL MCH (25.0-35.0) pg MCHC (31.0-37.0) g/dL RDW (11.5-15.5) % Sodium (135-145) mmol/L Carbon Dioxide (21.6-31.8) mmol/L BUN (9.0-27.0) mg/dL BUN/Creatinine Ratio (12.00-20.00) Ratio Glucose (70-110) mg/dL POC Glucose (mg/dL) 239 H 314 H (75-99) mg/dL Hemoglobin A1c 6.2 H (4.0-6.0) % Albumin/Globulin Ratio (1.60-3.17) g/dL 03/11/20 03/11/20 03/11/20 Range/Units 05:41 05:41 05:57 MCV 78.5 L (80.0-100.0) fL MCH 24.2 L (25.0-35.0) pg MCHC 30.9 L (31.0-37.0) g/dL RDW 16.9 H (11.5-15.5) % Sodium 146 H (135-145) mmol/L Carbon Dioxide 33.2 H (21.6-31.8) mmol/L BUN 37.0 H (9.0-27.0) mg/dL BUN/Creatinine Ratio 41.11 H (12.00-20.00) Ratio Glucose 230 H (70-110) mg/dL POC Glucose (mg/dL) 218 H (75-99) mg/dL Hemoglobin A1c (4.0-6.0) % Albumin/Globulin Ratio 1.36 L (1.60-3.17) g/dL 03/11/20 Range/Units 11:29 MCV (80.0-100.0) fL MCH (25.0-35.0) pg MCHC (31.0-37.0) g/dL RDW (11.5-15.5) % Sodium (135-145) mmol/L Carbon Dioxide (21.6-31.8) mmol/L BUN (9.0-27.0) mg/dL BUN/Creatinine Ratio (12.00-20.00) Ratio Glucose (70-110) mg/dL POC Glucose (mg/dL) 229 H (75-99) mg/dL Hemoglobin A1c (4.0-6.0) % Albumin/Globulin Ratio (1.60-3.17) g/dL Microbiology - Last 24 Hours (Table) 03/05/20 21:08 Blood Culture - Preliminary Blood No Growth after 120 hours 03/05/20 21:01 Blood Culture - Preliminary Blood No Growth after 120 hours
[2020-03-11] MEDS: MULTIVITAMINS, THERA LIQUID 237 ML BOTTLE PO SCH (17:12)
[2020-03-11] MEDS: LORATADINE 10 MG TAB PEG/G-TUBE SCH (17:13)
[2020-03-11] MEDS: FERROUS SULFATE ORAL ELIXIR 300 MG/5 ML CUP PEG/G-TUBE SCH (17:14)
[2020-03-11 17:48] LABS: Glucose,Whole Blood 291 mg/dL (75-99)
[2020-03-11] MEDS: PANTOPRAZOLE SODIUM 40 MG GRANULE PKT PEG/G-TUBE SCH (20:59)
[2020-03-11] MEDS: PRAVASTATIN SODIUM 40 MG TAB PO SCH (20:59)
[2020-03-11] MEDS: INSULIN DETEMIR (LEVEMIR) 100 UNIT/ML SYR SQ SCH (21:00)
--- NOTE | 2020-03-11 22:48 | PN ---
PROGRESS NOTE 74-year-old white female, who had another negative breast biopsy. She had her PEG tube placed today and she had a severely dysfunctional PEG tube. Cellulitis is much improved. Her PEG tube is much improved. Status post PEG tube infection. CT of the abdomen did not mention any abscess from PEG tube site. Continue on Zosyn and possibly discharge home on some oral antibiotics tomorrow as she is much improved. Cardiovascular S1, S2. Lungs clear. GI is soft. Psych fair mood and affect. MMODL / IJN: [id number] /
[2020-03-11 23:44] LABS: Glucose,Whole Blood 256 mg/dL (75-99)
[2020-03-12] MEDS: PIPERACILLIN-TAZOBACTAM 3.375 GM in SODIUM CHLORIDE 0.9% 100 ML IVPB SCH ×3 (05:11→20:56)
[2020-03-12] MEDS: GABAPENTIN 100 MG CAP PEG/G-TUBE SCH ×3 (05:49→20:56)
[2020-03-12] MEDS: hydrOXYzine HCL 25 MG TAB PEG/G-TUBE SCH ×3 (05:49→20:56)
[2020-03-12] MEDS: DILTIAZEM ORAL 30 MG TAB PEG/G-TUBE SCH ×3 (05:49→20:56)
[2020-03-12] MEDS: INSULIN ASPART (NovoLOG) 100 UNIT/ML VIAL SQ SCH ×3 (06:01→17:23)
[2020-03-12 06:03] LABS: Glucose,Whole Blood 219 mg/dL (75-99)
[2020-03-12] MEDS: FUROSEMIDE 40 MG TAB PO SCH ×2 (09:51→17:24)
[2020-03-12] MEDS: METOPROLOL TARTRATE 50 MG TAB PEG/G-TUBE SCH ×2 (09:51→17:24)
[2020-03-12] MEDS: HYDROPHILIC CREAM 180 GM TUBE TOPICAL SCH (09:51)
[2020-03-12] MEDS: CHOLESTYRAMINE (WITH SUGAR) 4 GM PACKET PEG/G-TUBE SCH (09:51)
[2020-03-12] MEDS: APIXABAN 2.5 MG TABLET PEG/G-TUBE SCH ×2 (09:51→17:24)
[2020-03-12] MEDS: levETIRAcetam ORAL SOLN 500 MG/5 ML CUP PEG/G-TUBE SCH (09:51)
[2020-03-12] MEDS: ASPIRIN 81 MG PO SCH (09:51)
--- NOTE | 2020-03-12 10:24 | P.PN ---
Subjective Progress Note Date: 03/12/20 Principal diagnosis: Presumed aspiration pneumonia Hard mass on left thoracic wall with an ulcerated lesion Cellulitis around PEG tube placement site Right plantar ulcer History of stroke with left hemiparesis Chronic atrial fibrillation Advanced dementia multi-infarct likely Dyslipidemia Hypertension hypertensive cardiovascular disease Sleep disorder breathing and sleep apnea History of migraine headaches lower GI bleed incontinence and UTI 03/12/2020, patient seen eval examined during the rounds labs reviewed medications reviewed, remains on room air breathing comfortably oriented 1, status post PEG tube change by general surgery, cellulitis continued to improve respiratory status stable remains on antibiotics 03/11/2020, patient seen eval examined during the rounds labs reviewed medications reviewed, patient remains on room air breathing comfortably, she is status post biopsy of right thoracic wall dense hard masslike lesion, results are reviewed negative for malignancy, positive for chronic inflammation, general surgery has been re- consulted for changing PEG tube as appears to be clogged and tube feeding along with flushes not going in 03/09/2020, patient seen eval reexamined remains on broad-spectrum antibiotics, oriented 1, cellulitis in the abdominal wall continued to improve cultures have been negative respiratory status stable 03/08/2020, patient seen and evaluated examined resting comfortably at room air oriented [address] and bone scan results are pending 03/07/2020, patient is more awake today oriented 1, oncology service to evaluate the patient, respiratory status remained stable remains on broad- spectrum antibiotics, cellulitis around the PEG tube site continued to improve, chest x-ray performed today reviewed finding consistent with left lower lobe aspiration pneumonia This is a 74-year-old female seen eval reexamined on fourth floor, patient admitted into the hospital with abnormal labs, patient is a resident of [facility], patient has been found to have early case through the PEG tube, she has been hypoglycemic, she was found to have a pneumonia on outpatient basis has been started on IV antibiotics she has a left hemiparesis due to prior stroke, right-sided foot ulcer on plantar aspect, she is awake oriented 1 as a baseline, she has been found to have ulcerative lesion in the left breast with a history of prior breast cancer oncology has been asked to evaluate the patient as well, at PEG tube insertion site some ongoing cellulitis present for which she was on Keflex, her admitted chest x-ray significant for cardiomegaly interstitial edema right-sided pacemaker, currently she is on anticoagulation with direct oral anticoagulant, has been getting Lasix for diuresis, and Zosyn for possible aspiration pneumonia, Objective - Vital Signs Vital signs: Vital Signs Temp 98.0 F 03/12/20 08:00 Pulse 73 03/12/20 08:00 Resp 16 03/12/20 08:00 BP 122/70 03/12/20 08:00 Pulse Ox 95 03/12/20 08:00 Intake & Output 03/11/20 03/12/20 03/12/20 18:59 06:59 18:59 Intake Total 760 Output Total 900 Balance -140 Weight 80 kg Intake: Intake, IV Titration 100 Amount Piperacillin-Tazobactam 3 100 .375 gm In Sodium Chloride 0.9% 100 ml @ 25 mls/hr IVPB Q8H [facility] Rx#: [id number] Tube Feeding 660 Output: Urine 900 Other: Voiding Method Diaper Diaper Incontinent # Voids 1 # Bowel Movements 1 - Exam - Constitutional General appearance: average body habitus, disheveled, morbidly obese - EENT Eyes: PERRLA Ears: bilateral: normal - Neck Carotids: bilateral: upstroke normal - Respiratory Respiratory: bilateral: diminished, dense hard thoracic wall mass left chest - Cardiovascular Heart sounds: normal: S1, S2 - Gastrointestinal General gastrointestinal: normal bowel sounds - Musculoskeletal Musculoskeletal: generalized weakness, left sided weakness - Labs CBC & Chem 7: 03/11/20 05:41 03/11/20 05:41 Labs: Abnormal Lab Results - Last 24 Hours (Table) 03/11/20 03/11/20 03/11/20 Range/Units 11:29 17:46 23:41 POC Glucose (mg/dL) 229 H 291 H 256 H (75-99) mg/dL 03/12/20 Range/Units 05:58 POC Glucose (mg/dL) 219 H (75-99) mg/dL Microbiology - Last 24 Hours (Table) 03/05/20 21:08 Blood Culture - Final Blood No Growth after 144 hours 03/05/20 21:01 Blood Culture - Final Blood No Growth after 144 hours Assessment and Plan Assessment: Clogged PEG tube status post to the exchange with a new PEG tube Left lower lobe aspiration pneumonia Left-sided thoracic wall hard indurated mass biopsy negative Cellulitis around PEG tube placement site Right plantar ulcer History of stroke with left hemiparesis Chronic atrial fibrillation Advanced dementia multi-infarct likely Dyslipidemia Hypertension hypertensive cardiovascular disease Sleep disorder breathing and sleep apnea History of migraine headaches lower GI bleed incontinence and UTI Plan: Status post PEG tube exchange tolerated well by general surgery Continue IV Zosyn Repeat chest x-ray reviewed consistent with left lower lobe pneumonia Continue gentle hydration Workup for breast cancer in progress status post CT of the chest abdominal and pelvis, ultrasound of the breast, and bone scan and core biopsy results negative for malignancy chronic inflammation Further recommendations pending plan of care is working response of the patient Time with Patient: Greater than 30
--- NOTE | 2020-03-12 10:46 | P.PN ---
Progress Note - Text Progress Note Date: 03/12/20 Patient's PEG tube site is clean. She is receiving tube feeds. Abdomen soft.
[2020-03-12 11:57] LABS: Glucose,Whole Blood 212 mg/dL (75-99)
--- NOTE | 2020-03-12 14:37 | PN ---
PROGRESS NOTE 74-year-old white female, with presumed aspiration pneumonia, heart mass on thoracic wall, negative for biopsy for cancer. Cellulitis around the PEG tube. PEG tube was just replaced yesterday by Dr. Brower. Advanced dementia, chronic atrial fibrillation. She is breathing well. She is status post PEG tube. Her Covid test is negative. Cellulitis improving. She remains stable on antibiotics. Await for Dr. Chavira to get Infectious Disease to see about home antibiotics to prevent secondary cellulitis of the breast and arm. Vital signs stable. Neck is supple. Respiratory diminished. Heart: Thoracic wall mass left chest. Heart S1, S2. GI: Normal bowel sounds. Blood cultures are negative. Sugars in the mid 200s. White count 10.3, hemoglobin 11.6, BUN is 37, creatinine 0.9. ASSESSMENT: 1. Status post clogged PEG tube. 2. Cellulitis of the chest. 3. Cellulitis of the left arm. 4. Cellulitis around the PEG tube site. 5. Left lower lobe aspiration pneumonia. 6. Left sided thoracic heart mass. Biopsies negative for cancer. 7. Right plantar ulcer. 8. History of stroke with left hemiparesis. 9. Chronic atrial fibrillation. 10.Advanced dementia. 11.Dyslipidemia. 12.Hypertension. 13.Sleep disorder. 14.History of migraines. Continue IV Zosyn, status post PEG tube exchange. Repeat chest x-ray for possible left lower lobe pneumonia. Gentle hydration. There is no malignancy on ultrasound of the breasts, bone scan, core biopsy, CT scan, waiting on Infectious Disease to give me home antibiotics and possibly sent back to the rehab center. MMODL / IJN: [id number] /
[2020-03-12 16:54] LABS: Glucose,Whole Blood 288 mg/dL (75-99)
[2020-03-12] MEDS: FERROUS SULFATE ORAL ELIXIR 300 MG/5 ML CUP PEG/G-TUBE SCH (17:24)
[2020-03-12] MEDS: MULTIVITAMINS, THERA LIQUID 237 ML BOTTLE PO SCH (17:24)
[2020-03-12] MEDS: LORATADINE 10 MG TAB PEG/G-TUBE SCH (17:24)
--- NOTE | 2020-03-12 18:52 | PN ---
PROGRESS NOTE DATE OF SERVICE: 03/12/2020 REASON FOR FOLLOWUP: PEG tube site infection. INTERVAL HISTORY: Patient is currently afebrile. The patient is status post removal of the old PEG tube and placement of new PEG tube. Patient tolerated the procedure. Patient currently remains to be sleepy, lethargic. Unable to provide any history. No vomiting or diarrhea has been reported by nursing staff. PHYSICAL EXAMINATION: Blood pressure 132/70 with a pulse of 73, temperature 98. She is 95% on room air. General description is an elderly female lying in bed in no distress. Respiratory system: Unlabored breathing, clear to auscultation anteriorly. Heart S1, S2. Regular rate and rhythm. Abdomen soft, no tenderness. LABS: No new labs have been obtained today. DIAGNOSTIC IMPRESSION AND PLAN: Patient with PEG tube site drainage and malfunction status post removal of the tube and placement of a new tube. Currently covered with Zosyn. Finishing therapy with short course of Augmentin down the PEG tube. Plan of care discussed with the admitting physician. REDDY / PETERN: [id number] /
[2020-03-12] MEDS: PANTOPRAZOLE SODIUM 40 MG GRANULE PKT PEG/G-TUBE SCH (20:56)
[2020-03-12] MEDS: INSULIN DETEMIR (LEVEMIR) 100 UNIT/ML SYR SQ SCH (20:56)
[2020-03-12] MEDS: PRAVASTATIN SODIUM 40 MG TAB PO SCH (20:56)
[2020-03-12 23:58] LABS: Glucose,Whole Blood 270 mg/dL (75-99)
[2020-03-13] MEDS: INSULIN ASPART (NovoLOG) 100 UNIT/ML VIAL SQ SCH ×4 (00:02→17:28)
[2020-03-13 05:47] LABS: Glucose,Whole Blood 212 mg/dL (75-99)
[2020-03-13] MEDS: GABAPENTIN 100 MG CAP PEG/G-TUBE SCH ×3 (05:53→21:40)
[2020-03-13] MEDS: DILTIAZEM ORAL 30 MG TAB PEG/G-TUBE SCH ×3 (05:53→21:40)
[2020-03-13] MEDS: hydrOXYzine HCL 25 MG TAB PEG/G-TUBE SCH ×3 (05:54→21:40)
[2020-03-13] MEDS: PIPERACILLIN-TAZOBACTAM 3.375 GM in SODIUM CHLORIDE 0.9% 100 ML IVPB SCH (07:54)
[2020-03-13] MEDS: FUROSEMIDE 40 MG TAB PO SCH ×2 (07:58→17:27)
[2020-03-13] MEDS: ASPIRIN 81 MG PO SCH (07:58)
[2020-03-13] MEDS: METOPROLOL TARTRATE 50 MG TAB PEG/G-TUBE SCH ×2 (07:58→17:27)
[2020-03-13] MEDS: APIXABAN 2.5 MG TABLET PEG/G-TUBE SCH ×2 (07:58→17:27)
[2020-03-13] MEDS: CHOLESTYRAMINE (WITH SUGAR) 4 GM PACKET PEG/G-TUBE SCH (07:59)
[2020-03-13] MEDS: levETIRAcetam ORAL SOLN 500 MG/5 ML CUP PEG/G-TUBE SCH (07:59)
[2020-03-13] MEDS: HYDROPHILIC CREAM 180 GM TUBE TOPICAL SCH (08:00)
--- NOTE | 2020-03-13 11:19 | P.PN ---
Progress Note - Text Progress Note Date: 03/13/20 Patient's PEG tube is functioning. PEG tube site is clean. She'll continue receive supportive care.
[2020-03-13 11:57] LABS: Glucose,Whole Blood 174 mg/dL (75-99)
--- NOTE | 2020-03-13 14:51 | PN ---
PROGRESS NOTE 74-year-old white female seen by Dr. Brower. PEG tube functioning and clean. The old tube that was necrotic was removed. Dr. Chavira's saw her for Infectious Disease, possibly send home on Augmentin tomorrow to the skilled nursing. Clinically, she is get better. Lungs are clear heart S1, S2. Abdomen is soft. PEG tube site malfunction is currently covered with Zosyn ( ) with Augmentin down the PEG. Possible discharge to skilled nursing tomorrow. Clinically, she is much better. She is on 100% on room air. Blood pressure 142/78, pulse 74-67, temp 98.6. Possibly discharge home tomorrow as mentioned above. MMODL / IJN: [id number] /
[2020-03-13 17:11] LABS: Glucose,Whole Blood 216 mg/dL (75-99)
[2020-03-13] MEDS: FERROUS SULFATE ORAL ELIXIR 300 MG/5 ML CUP PEG/G-TUBE SCH (17:27)
[2020-03-13] MEDS: LORATADINE 10 MG TAB PEG/G-TUBE SCH (17:27)
[2020-03-13] MEDS: MULTIVITAMINS, THERA LIQUID 237 ML BOTTLE PO SCH (17:28)
[2020-03-13] MEDS: PANTOPRAZOLE SODIUM 40 MG GRANULE PKT PEG/G-TUBE SCH (21:40)
[2020-03-13] MEDS: INSULIN DETEMIR (LEVEMIR) 100 UNIT/ML SYR SQ SCH (21:40)
[2020-03-13] MEDS: PRAVASTATIN SODIUM 40 MG TAB PO SCH (21:40)
--- NOTE | 2020-03-13 23:38 | PN ---
PROGRESS NOTE DATE OF SERVICE: 03/13/2020 REASON FOR FOLLOWUP: Bacteremia. INTERVAL HISTORY: Patient is currently afebrile. Patient is breathing comfortably, hemodynamically stable. Has been tolerating tube feeds. Noted to have some diarrhea. The patient herself unable to provide any history. PHYSICAL EXAMINATION: Blood pressure 166/82 with a pulse of 73, temperature 98.2. She is 95% on room air. General description is a middle-aged female lying in bed in no distress. Respiratory system: Unlabored breathing. Clear to auscultation anteriorly. Heart S1, S2. Regular rate and rhythm. ABDOMEN: Soft, no tenderness. LABS: No new labs been obtained today. DIAGNOSTIC IMPRESSION AND PLAN: Patient with PEG tube site infection status post replacement of the PEG tube. She received one week of antibiotic therapy. Should be more than enough in view of significant diarrhea. We will hold on any further antibiotic therapy at this point. Continue supportive care. MMODL / IJN: [id number] /
[2020-03-13 23:58] LABS: Glucose,Whole Blood 237 mg/dL (75-99)
[2020-03-14] MEDS: INSULIN ASPART (NovoLOG) 100 UNIT/ML VIAL SQ SCH ×4 (00:13→17:13)
[2020-03-14 05:49] LABS: Glucose,Whole Blood 208 mg/dL (75-99)
[2020-03-14] MEDS: GABAPENTIN 100 MG CAP PEG/G-TUBE SCH ×3 (05:55→21:58)
[2020-03-14] MEDS: hydrOXYzine HCL 25 MG TAB PEG/G-TUBE SCH ×3 (05:55→21:58)
[2020-03-14] MEDS: DILTIAZEM ORAL 30 MG TAB PEG/G-TUBE SCH ×3 (08:02→21:58)
[2020-03-14] MEDS: ASPIRIN 81 MG PO SCH (08:02)
[2020-03-14] MEDS: METOPROLOL TARTRATE 50 MG TAB PEG/G-TUBE SCH ×2 (08:02→16:23)
[2020-03-14] MEDS: FUROSEMIDE 40 MG TAB PO SCH ×2 (08:02→16:20)
[2020-03-14] MEDS: APIXABAN 2.5 MG TABLET PEG/G-TUBE SCH ×2 (08:02→16:23)
[2020-03-14] MEDS: CHOLESTYRAMINE (WITH SUGAR) 4 GM PACKET PEG/G-TUBE SCH (08:03)
[2020-03-14] MEDS: levETIRAcetam ORAL SOLN 500 MG/5 ML CUP PEG/G-TUBE SCH (08:04)
[2020-03-14 08:11] VITALS: RESP 16
[2020-03-14 11:14] LABS: Glucose,Whole Blood 205 mg/dL (75-99)
--- NOTE | 2020-03-14 11:56 | CDI ---
Documentation Clarification Form Date: 03/07/2020 03:41:57 PM From: Candice Diaz RN CCDS Admit Date: 03/06/2020 01:03:00 PM Patient Name: Ariane Eric Visit Number: [id number] Discharge Date: ATTENTION: The Clinical Documentation Specialists (CDI) and [facility] Coding Staff appreciate your assistance in clarifying documentation. Please respond to the clarification below the line at the bottom and electronically sign. The CDI & [facility] Coding staff will review the response and follow-up if needed. Please note: Queries are made part of the Legal Health Record. If you have any questions, please contact the author of this message via ITS. Dr. Luis A Gomez CHF is documented in the H&P 03/06. History/Risk Factors: 74-year-old female presents to the ED with leaking from PEG tube. Medical history: Atrial fibrillation; Atrial Flutter; heart failure and DM. Clinical Indicators: VS/Pulse OX 03/05: B/P 147/77; HR 78; Temp 98.2 F Oral; RR 18; SpO2 96% ra BNP 03/05: 1160 Echocardiogram Results 06/19/18: Left ventricular systolic function is mildly impaired with, an EF 45-50%. Right ventricle is normal size. The left atrium is markedly dilated. Chest X Ray 03/05: Mild heart failure. Pulmonary congestion slightly increased compared to old exam. Treatment: 03/06 Lasix IV x 1; Lasix IV Q12HR; 03/06 Lopressor peg/g-tube BID. In your professional opinion, can you please clarify the acuity and type of CHF if known? Acute on Chronic Systolic Heart Failure Acute on Chronic Diastolic Heart Failure Acute on Chronic Systolic and Diastolic Heart Failure Unable to Determine Other, please specify (Last Revision: May 2017) MTDD
[2020-03-14] MEDS: HYDROPHILIC CREAM 180 GM TUBE TOPICAL SCH (12:22)
--- NOTE | 2020-03-14 12:44 | P.PN ---
Subjective Progress Note Date: 03/14/20 CHIEF COMPLAINT: Malfunctioning PEG tube HISTORY OF PRESENT ILLNESS: Patient is status post PEG tube replacement. Patient's PEG tube is functioning. She is tolerating tube feedings, they are at goal of 55 ml/hr. Afebrile. PHYSICAL EXAM: VITAL SIGNS: Reviewed. GENERAL: Well-developed in no acute distress. HEENT: No sclera icterus. Extraocular movements grossly intact. Moist buccal mucosa. Head is atraumatic, normocephalic. ABDOMEN: Soft. Nondistended. Nontender. PEG tube site clean dry and intact NEUROLOGIC: Alert and oriented. Cranial nerves II through XII grossly intact. ASSESSMENT: 1. Malfunctioning PEG tube status post replacement PLAN: -Continue tube feedings Physician Software Tools Build Engineer note has been reviewed by physician. Signing provider agrees with the documented findings, assessment, and plan of care. Objective - Vital Signs Vital signs: Vital Signs Temp 98.7 F 03/14/20 08:00 Pulse 83 03/14/20 08:00 Resp 16 03/14/20 08:00 BP 137/80 03/14/20 08:00 Pulse Ox 94 L 03/14/20 08:00 Intake & Output 03/13/20 03/14/20 03/14/20 18:59 06:59 18:59 Intake Total 750 Balance 750 Weight 81 kg Intake: Tube Feeding 660 Other 90 Other: Voiding Method Diaper Diaper - Labs CBC & Chem 7: 03/11/20 05:41 03/11/20 05:41 Labs: Abnormal Lab Results - Last 24 Hours (Table) 03/13/20 03/13/20 03/14/20 Range/Units 17:09 23:57 05:48 POC Glucose (mg/dL) 216 H 237 H 208 H (75-99) mg/dL 03/14/20 Range/Units 11:12 POC Glucose (mg/dL) 205 H (75-99) mg/dL
[2020-03-14] MEDS: FERROUS SULFATE ORAL ELIXIR 300 MG/5 ML CUP PEG/G-TUBE SCH (16:20)
[2020-03-14] MEDS: LORATADINE 10 MG TAB PEG/G-TUBE SCH (16:23)
[2020-03-14] MEDS: MULTIVITAMINS, THERA LIQUID 237 ML BOTTLE PO SCH (16:24)
[2020-03-14 16:43] LABS: Glucose,Whole Blood 232 mg/dL (75-99)
--- NOTE | 2020-03-14 18:05 | PN ---
PROGRESS NOTE Acute on chronic diastolic heart failure and systolic heart failure combined. MMODL / IJN: [id number] /
--- NOTE | 2020-03-14 20:25 | DS ---
DISCHARGE SUMMARY DISCHARGE DIAGNOSES: 1. History of breast cancer. 2. History of cerebrovascular accident. 3. Mild congestive heart failure. 4. A PEG tube malfunction and infection. 5. Cellulitis of the left arm and chest. 6. Breast biopsy negative for cancer. 7. Acute on chronic systolic and diastolic heart failure. MEDICINES: Lasix 40 mg p.o. b.i.d., Levemir 48 units subcu q.h.s., metronidazole 0.75% cream topically daily, Pravachol 40 mg PEG tube daily, Keppra oral solution 100 mg PEG tube daily, Lopressor 100 mg PEG tube b.i.d., aspirin 81 mg PEG tube daily, omeprazole 2 mg/mL 20 mg PEG q.h.s., Bisacodyl 10 mg rectal daily p.r.n. for constipation, hydroxyzine 25 mg PEG tube t.i.d., Cardizem 30 mg PEG tube t.i.d., Tylenol 650 mg PEG tube q.6 hours, gabapentin solution 250/5 mL 100 mg PEG tube t.i.d. Eliquis 2.5 mg PEG tube b.i.d., multivitamin 5 mL daily, iron, Feosol liquid 330 mg PEG tube daily, cholestyramine 4 mg PEG tube daily, cetirizine 10 mg PEG tube daily, Milk of Magnesia 7200 mg PEG tube daily, Triad cream topically daily, Keflex 500 mg PEG tube b.i.d. NovoLog a.c. and q.h.s. protocol. CONDITION: Stable. PROGNOSIS: Guarded. Ambulate as tolerated with physical therapy. HOSPITAL COURSE: This white female came in with diastolic heart failure, infection, community-acquired pneumonia, cellulitis of the left arm and chest, abnormal PEG tube, which was replaced. She received 1 week of antibiotics, due to significant diarrhea, no more antibiotics at this time per Dr. Chavira except for the Keflex, we will order. Prognosis is stable. Diastolic heart failure was treated. Vital signs on discharge show blood pressure 130s to 150s over 80s to 90s, pulse ox 93% on room air, pulse 73 to 90, respiratory 16 to 18, temp 98.1. Head of bed at 45 degrees. Prognosis guarded. Follow up with Dr. Luis A Gomez at the retirement. MMODL / IJN: [id number] /
[2020-03-14] MEDS: PANTOPRAZOLE SODIUM 40 MG GRANULE PKT PEG/G-TUBE SCH (21:58)
[2020-03-14] MEDS: PRAVASTATIN SODIUM 40 MG TAB PO SCH (21:58)
[2020-03-14] MEDS: INSULIN DETEMIR (LEVEMIR) 100 UNIT/ML SYR SQ SCH (21:58)
--- NOTE | 2020-03-14 22:21 | PN ---
PROGRESS NOTE DATE OF SERVICE: 03/14/2020 REASON FOR FOLLOW UP: PEG tube site infection. INTERVAL HISTORY: Patient is currently afebrile. The patient is breathing comfortably on room air. No vomiting has been reported. Has been tolerating her tube feeds. No diarrhea reported. PHYSICAL EXAMINATION: Blood pressure 150/80 with a pulse of 74, temperature 99.1. She is 94% on room air. General description is an elderly female lying in bed in no distress. Respiratory system: Unlabored breathing, clear to auscultation anteriorly. Heart S1, S2. Regular rate and rhythm. ABDOMEN: Soft, no distention. LABS: No new labs have been obtained today. DIAGNOSTIC IMPRESSION AND PLAN: Patient with PEG tube site infection and drainage not functioning which has been discontinued. The patient has completed her antibiotic therapy. No need for antibiotic at this point. Monitor clinical course closely. Continue supportive care. MMTEREZAL / IJN: [id number] /
[2020-03-15 01:58] LABS: Glucose,Whole Blood 187 mg/dL (75-99)
[2020-03-15] MEDS: INSULIN ASPART (NovoLOG) 100 UNIT/ML VIAL SQ SCH ×3 (01:59→12:45)
[2020-03-15 06:19] LABS: Glucose,Whole Blood 210 mg/dL (75-99)
[2020-03-15] MEDS: GABAPENTIN 100 MG CAP PEG/G-TUBE SCH (06:24)
[2020-03-15] MEDS: DILTIAZEM ORAL 30 MG TAB PEG/G-TUBE SCH (06:24)
[2020-03-15] MEDS: hydrOXYzine HCL 25 MG TAB PEG/G-TUBE SCH (06:24)
[2020-03-15] MEDS: FUROSEMIDE 40 MG TAB PO SCH (08:38)
[2020-03-15] MEDS: METOPROLOL TARTRATE 50 MG TAB PEG/G-TUBE SCH (08:38)
[2020-03-15] MEDS: levETIRAcetam ORAL SOLN 500 MG/5 ML CUP PEG/G-TUBE SCH (08:39)
[2020-03-15] MEDS: CHOLESTYRAMINE (WITH SUGAR) 4 GM PACKET PEG/G-TUBE SCH (08:39)
[2020-03-15] MEDS: ASPIRIN 81 MG PO SCH (08:39)
[2020-03-15] MEDS: HYDROPHILIC CREAM 180 GM TUBE TOPICAL SCH (08:40)
[2020-03-15] MEDS: APIXABAN 2.5 MG TABLET PEG/G-TUBE SCH (08:40)
[2020-03-15 08:52] VITALS: BP 145/83; PULSE 80; TEMP 97.9
[2020-03-15 11:48] LABS: Glucose,Whole Blood 257 mg/dL (75-99)
--- NOTE | 2020-03-15 13:42 | PN ---
PROGRESS NOTE DATE OF SERVICE: 03/15/2020 REASON FOR FOLLOWUP: Malfunctioning PEG tube with concern for cellulitis. INTERVAL HISTORY: The patient is currently afebrile. The patient is breathing comfortably. Patient remains to be normal, but has been tolerating her tube feeds. No diarrhea has been reported. PHYSICAL EXAMINATION: Blood pressure 145/83 with a pulse of 80, temperature 97.9. She is 96% on room air. General description is an elderly female lying in bed in no distress. RESPIRATORY SYSTEM: Unlabored breathing, is clear to auscultation anteriorly. HEART: S1, S2. Regular rate and rhythm. ABDOMEN: Soft. No tenderness. PEG tube site with no drainage or redness. DIAGNOSTIC IMPRESSION AND PLAN: Patient with PEG tube site cellulitis with nonfunctioning which has been discontinued subsequently. Plan at this time is with no evidence of cellulitis, no need for antibiotic on discharge. Local care may consist of Triad cream to keep the area dry and prevent further maceration. MMODL / IJN: [id number] /
--- NOTE | 2020-03-15 14:15 | P.PN ---
Subjective Progress Note Date: 03/15/20 CHIEF COMPLAINT: Malfunctioning PEG tube HISTORY OF PRESENT ILLNESS: Patient is status post PEG tube replacement. Patient's PEG tube is functioning. She is tolerating tube feedings, they are at goal of 55 ml/hr. Afebrile. PHYSICAL EXAM: VITAL SIGNS: Reviewed. GENERAL: Well-developed in no acute distress. HEENT: No sclera icterus. Extraocular movements grossly intact. Moist buccal mucosa. Head is atraumatic, normocephalic. ABDOMEN: Soft. Nondistended. Nontender. PEG tube site clean dry and intact NEUROLOGIC: Alert and oriented. Cranial nerves II through XII grossly intact. ASSESSMENT: 1. Malfunctioning PEG tube status post replacement PLAN: -Continue tube feedings Physician Engraver Automatic note has been reviewed by physician. Signing provider agrees with the documented findings, assessment, and plan of care. Objective - Vital Signs Vital signs: Vital Signs Temp 97.9 F 03/15/20 08:00 Pulse 80 03/15/20 08:00 Resp 16 03/15/20 08:00 BP 145/83 03/15/20 08:00 Pulse Ox 96 03/15/20 08:00 Intake & Output 03/14/20 03/15/20 03/15/20 18:59 06:59 18:59 Intake Total 275 Balance 275 Intake: Tube Feeding 275 Other: Voiding Method Diaper Diaper Incontinent Incontinent - Labs CBC & Chem 7: 03/11/20 05:41 03/11/20 05:41 Labs: Abnormal Lab Results - Last 24 Hours (Table) 03/14/20 03/15/20 03/15/20 Range/Units 16:41 01:56 06:18 POC Glucose (mg/dL) 232 H 187 H 210 H (75-99) mg/dL 03/15/20 Range/Units 11:46 POC Glucose (mg/dL) 257 H (75-99) mg/dL
--- NOTE | 2020-03-16 10:13 | P.PN ---
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 Dyslipidemia Hypertension hypertensive cardiovascular disease Sleep disorder breathing and sleep apnea History of migraine headaches lower GI bleed incontinence and UTI 03/14/2020, patient seen eval examined during the rounds labs reviewed medications reviewed care plan discussed respiratory status remained stable patient remains on room air, oriented 1 03/12/2020, patient seen eval examined during the rounds labs reviewed medications reviewed, remains on room air breathing comfortably oriented 1, status post PEG tube change by general surgery, cellulitis continued to improve respiratory status stable remains on antibiotics 03/11/2020, patient seen eval examined during the rounds labs reviewed medications reviewed, patient remains on room air breathing comfortably, she is status post biopsy of right thoracic wall dense hard masslike lesion, results are reviewed negative for malignancy, positive for chronic inflammation, general surgery has been re- consulted for changing PEG tube as appears to be clogged and tube feeding along with flushes not going in 03/09/2020, patient seen eval reexamined remains on broad-spectrum antibiotics, oriented 1, cellulitis in the abdominal wall continued to improve cultures have been negative respiratory status stable 03/08/2020, patient seen and evaluated examined resting comfortably at room air oriented [address] and bone scan results are pending 03/07/2020, patient is more awake today oriented 1, oncology service to evaluate the patient, respiratory status remained stable remains on broad- spectrum antibiotics, cellulitis around the PEG tube site continued to improve, chest x-ray performed today reviewed finding consistent with left lower lobe aspiration pneumonia This is a 74-year-old female seen eval reexamined on fourth floor, patient admitted into the hospital with abnormal labs, patient is a resident of extended care facility, patient has been found to have early case through the PEG tube, she has been hypoglycemic, she was found to have a pneumonia on outpatient basis has been started on IV antibiotics she has a left hemiparesis due to prior stroke, right-sided foot ulcer on plantar aspect, she is awake oriented 1 as a baseline, she has been found to have ulcerative lesion in the left breast with a history of prior breast cancer oncology has been asked to evaluate the patient as well, at PEG tube insertion site some ongoing cellulitis present for which she was on Keflex, her admitted chest x-ray significant for cardiomegaly interstitial edema right-sided pacemaker, currently she is on anticoagulation with direct oral anticoagulant, has been getting Lasix for diuresis, and Zosyn for possible aspiration pneumonia, Objective - Vital Signs Vital signs: Vital Signs Temp 98.1 F 03/14/20 15:57 Pulse 90 03/14/20 15:57 Resp 16 03/14/20 15:57 BP 159/91 03/14/20 15:57 Pulse Ox 93 L 03/14/20 15:57 Intake & Output 03/13/20 03/14/20 03/14/20 18:59 06:59 18:59 Intake Total 750 Balance 750 Weight 81 kg Intake: Tube Feeding 660 Other 90 Other: Voiding Method Diaper Diaper - Exam - Constitutional General appearance: average body habitus, disheveled, morbidly obese - EENT Eyes: PERRLA Ears: bilateral: normal - Neck Carotids: bilateral: upstroke normal - Respiratory Respiratory: bilateral: diminished, dense hard thoracic wall mass left chest - Cardiovascular Heart sounds: normal: S1, S2 - Gastrointestinal General gastrointestinal: normal bowel sounds - Musculoskeletal Musculoskeletal: generalized weakness, left sided weakness - Labs CBC & Chem 7: 03/11/20 05:41 03/11/20 05:41 Labs: Abnormal Lab Results - Last 24 Hours (Table) 03/13/20 03/13/20 03/14/20 Range/Units 17:09 23:57 05:48 POC Glucose (mg/dL) 216 H 237 H 208 H (75-99) mg/dL 03/14/20 03/14/20 Range/Units 11:12 16:41 POC Glucose (mg/dL) 205 H 232 H (75-99) mg/dL Assessment and Plan Assessment: Clogged PEG tube status post to the exchange with a new PEG tube Left lower lobe aspiration pneumonia Left-sided thoracic wall hard indurated mass biopsy negative Cellulitis around PEG tube placement site Right plantar ulcer History of stroke with left hemiparesis Chronic atrial fibrillation Advanced dementia multi-infarct likely Dyslipidemia Hypertension hypertensive cardiovascular disease Sleep disorder breathing and sleep apnea History of migraine headaches lower GI bleed incontinence and UTI Plan: Status post PEG tube exchange tolerated well by general surgery Continue IV Zosyn Repeat chest x-ray reviewed consistent with left lower lobe pneumonia Continue gentle hydration Workup for breast cancer in progress status post CT of the chest abdominal and pelvis, ultrasound of the breast, and bone scan and core biopsy results negative for malignancy chronic inflammation Further recommendations pending plan of care is working response of the patient Time with Patient: Greater than 30
--- NOTE | 2020-03-16 10:14 | P.PN ---
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 Dyslipidemia Hypertension hypertensive cardiovascular disease Sleep disorder breathing and sleep apnea History of migraine headaches lower GI bleed incontinence and UTI 03/15/2020, patient seen eval examined during the rounds overall respiratory status remains stable remains on room air oriented 1, agree with discharge planning 03/14/2020, patient seen eval examined during the rounds labs reviewed medications reviewed care plan discussed respiratory status remained stable patient remains on room air, oriented 1 03/12/2020, patient seen eval examined during the rounds labs reviewed medications reviewed, remains on room air breathing comfortably oriented 1, status post PEG tube change by general surgery, cellulitis continued to improve respiratory status stable remains on antibiotics 03/11/2020, patient seen eval examined during the rounds labs reviewed medications reviewed, patient remains on room air breathing comfortably, she is status post biopsy of right thoracic wall dense hard masslike lesion, results are reviewed negative for malignancy, positive for chronic inflammation, general surgery has been re- consulted for changing PEG tube as appears to be clogged and tube feeding along with flushes not going in 03/09/2020, patient seen eval reexamined remains on broad-spectrum antibiotics, oriented 1, cellulitis in the abdominal wall continued to improve cultures have been negative respiratory status stable 03/08/2020, patient seen and evaluated examined resting comfortably at room air oriented [address] and bone scan results are pending 03/07/2020, patient is more awake today oriented 1, oncology service to evaluate the patient, respiratory status remained stable remains on broad- spectrum antibiotics, cellulitis around the PEG tube site continued to improve, chest x-ray performed today reviewed finding consistent with left lower lobe aspiration pneumonia This is a 74-year-old female seen eval reexamined on fourth floor, patient admitted into the hospital with abnormal labs, patient is a resident of [facility], patient has been found to have early case through the PEG tube, she has been hypoglycemic, she was found to have a pneumonia on outpatient basis has been started on IV antibiotics she has a left hemiparesis due to prior stroke, right-sided foot ulcer on plantar aspect, she is awake oriented 1 as a baseline, she has been found to have ulcerative lesion in the left breast with a history of prior breast cancer oncology has been asked to evaluate the patient as well, at PEG tube insertion site some ongoing cellulitis present for which she was on Keflex, her admitted chest x-ray significant for cardiomegaly i nterstitial edema right-sided pacemaker, currently she is on anticoagulation with direct oral anticoagulant, has been getting Lasix for diuresis, and Zosyn for possible aspiration pneumonia, Objective - Vital Signs Vital signs: Vital Signs Temp 97.9 F 03/15/20 08:00 Pulse 80 03/15/20 08:00 Resp 16 03/15/20 08:00 BP 145/83 03/15/20 08:00 Pulse Ox 96 03/15/20 08:00 Intake & Output 03/14/20 03/15/20 03/15/20 18:59 06:59 18:59 Intake Total 275 Balance 275 Intake: Tube Feeding 275 Other: Voiding Method Diaper Diaper Incontinent Incontinent - Exam - Constitutional General appearance: average body habitus, disheveled, morbidly obese - EENT Eyes: PERRLA Ears: bilateral: normal - Neck Carotids: bilateral: upstroke normal - Respiratory Respiratory: bilateral: diminished, dense hard thoracic wall mass left chest - Cardiovascular Heart sounds: normal: S1, S2 - Gastrointestinal General gastrointestinal: normal bowel sounds - Musculoskeletal Musculoskeletal: generalized weakness, left sided weakness - Labs CBC & Chem 7: 03/11/20 05:41 03/11/20 05:41 Labs: Abnormal Lab Results - Last 24 Hours (Table) 03/14/20 03/15/20 03/15/20 Range/Units 16:41 01:56 06:18 POC Glucose (mg/dL) 232 H 187 H 210 H (75-99) mg/dL Assessment and Plan Assessment: Clogged PEG tube status post to the exchange with a new PEG tube, functioning well Left lower lobe aspiration pneumonia, can be discharged on antibiotics through the PEG Left-sided thoracic wall hard indurated mass biopsy negative Cellulitis around PEG tube placement site Right plantar ulcer History of stroke with left hemiparesis Chronic atrial fibrillation Advanced dementia multi-infarct likely Dyslipidemia Hypertension hypertensive cardiovascular disease Sleep disorder breathing and sleep apnea History of migraine headaches lower GI bleed incontinence and UTI Plan: Status post PEG tube exchange tolerated well by general surgery Continue IV Zosyn, can be changed to oral antibiotics via PEG at the time of discharge Repeat chest x-ray reviewed consistent with left lower lobe pneumonia Continue gentle hydration Workup for breast cancer in progress status post CT of the chest abdominal and pelvis, ultrasound of the breast, and bone scan and core biopsy results negative for malignancy chronic inflammation Further recommendations pending plan of care is working response of the patient Time with Patient: Greater than 30
--- NOTE | 2020-03-17 06:24 | CDI ---
Documentation Clarification Form Date: 03/17/2020 06:12:00 AM From: Ning Verde Phone: If you have a question about this query, please contact Camryn Marroquin Director Corporate Sales at [phone] between 8am and 5pm. Admit Date: 03/06/2020 01:03:00 PM Patient Name: Ariane Eric Visit Number: [id number] Discharge Date: 03/15/2020 02:16:00 PM ATTENTION: The Clinical Documentation Specialists (CDI) and [facility] Coding Staff appreciate your assistance in clarifying documentation. Please respond to the clarification below the line at the bottom and electronically sign. The CDI & [facility] Coding staff will review the response and follow-up if needed. Please note: Queries are made part of the Legal Health Record. If you have any questions, please contact the author of this message via ITS. Dr. Gilda Arceo Documentation in the Operative Report included: a deep excisional biopsy was performed. Please clarify depth of biopsy History/Risk factors: Left breast lesion, ulceration Pre-Operative Diagnosis:Ulcerated left breast lesion Postoperative Diagnosis: Ulcerated left breast lesion Treatment: biopsy In order to capture the severity of condition, please specify the depth of biopsy: full thickness elliptical biopsy MTDD
== END 2020-03-15 14:16 | DRG 393 ==
LOC: EC 20:15 → 4SSUR 03-06 01:03 → OBSVTOIN 03-06 13:03
PROVIDERS: ADMIT Family Medicine; ATTEND Family Medicine
PROC: 0HB5XZX Excision of Chest Skin, External Approach, Diagnostic (ICD-10-PCS; principal; 2020-03-06)
PROC: 0D20XUZ Change Feeding Device in Upper Intestinal Tract, External Approach (ICD-10-PCS; 2020-03-11)
DX: K94.23 Gastrostomy malfunction (principal); J69.0 Pneumonitis due to inhalation of food and vomit; I50.43 Acute on chronic combined systolic (congestive) and diastolic (congestive) heart failure; L03.114 Cellulitis of left upper limb; L03.313 Cellulitis of chest wall; N17.9 Acute kidney failure, unspecified; I13.0 Hypertensive heart and chronic kidney disease with heart failure and stage 1 through stage 4 chronic kidney disease, or unspecified chronic kidney disease; I48.20 Chronic atrial fibrillation, unspecified; I69.354 Hemiplegia and hemiparesis following cerebral infarction affecting left non-dominant side; I48.92 Unspecified atrial flutter; K94.22 Gastrostomy infection; L97.519 Non-pressure chronic ulcer of other part of right foot with unspecified severity; N18.9 Chronic kidney disease, unspecified; N61.0 Mastitis without abscess; Z20.822 Contact with and (suspected) exposure to COVID-19; L98.499 Non-pressure chronic ulcer of skin of other sites with unspecified severity; Z85.3 Personal history of malignant neoplasm of breast; E11.22 Type 2 diabetes mellitus with diabetic chronic kidney disease; E11.621 Type 2 diabetes mellitus with foot ulcer; E11.649 Type 2 diabetes mellitus with hypoglycemia without coma; F01.50 Vascular dementia, unspecified severity, without behavioral disturbance, psychotic disturbance, mood disturbance, and anxiety; E78.5 Hyperlipidemia, unspecified; Z86.16 Personal history of COVID-19; G43.909 Migraine, unspecified, not intractable, without status migrainosus; G47.33 Obstructive sleep apnea (adult) (pediatric); Z99.89 Dependence on other enabling machines and devices; I69.311 Memory deficit following cerebral infarction; J45.909 Unspecified asthma, uncomplicated; Z87.19 Personal history of other diseases of the digestive system; Z86.14 Personal history of Methicillin resistant Staphylococcus aureus infection; R32 Unspecified urinary incontinence; R15.9 Full incontinence of feces; Z79.01 Long term (current) use of anticoagulants; Z79.4 Long term (current) use of insulin; Z79.82 Long term (current) use of aspirin; Z79.899 Other long term (current) drug therapy; Z80.0 Family history of malignant neoplasm of digestive organs; Z82.3 Family history of stroke; Z90.710 Acquired absence of both cervix and uterus; Z95.0 Presence of cardiac pacemaker; Z95.2 Presence of prosthetic heart valve; Z95.5 Presence of coronary angioplasty implant and graft; Z99.81 Dependence on supplemental oxygen; Z98.42 Cataract extraction status, left eye; K59.00 Constipation, unspecified; Z98.41 Cataract extraction status, right eye; Z96.1 Presence of intraocular lens; Z87.01 Personal history of pneumonia (recurrent); Z87.440 Personal history of urinary (tract) infections; Z90.89 Acquired absence of other organs; Z86.711 Personal history of pulmonary embolism
CPT/HCPCS: 36415; 51702; 71045; 71046; 71260; 74177; 78306; 80053; 81001; 83036; 83605; 83880; 85025; 85610; 85730; 86300; 87040; 87086; 87635; 88305; 93005; 96365; 96366; 96375; 99284

== ENCOUNTER 2020-06-11 10:22 | Inpatient (IN) | payer MEDICARE, OTHER ==
[2020-06-11] MEDS ORDERED: PANTOPRAZOLE 40 MG/10 ML VIAL IVP STA (10:34)
[2020-06-11] MEDS ORDERED: SODIUM CHLORIDE 0.9% 1,000 ML IV STA (10:34)
[2020-06-11] MEDS ORDERED: IOPAMIDOL CONTRAST (ORAL USE) VIAL PO PRN (10:34)
--- NOTE | 2020-06-11 10:37 | ED ---
General Adult HPI - General Chief complaint: Urogenital Stated complaint: Abd Pain Time Seen by Provider: 06/11/20 10:24 Source: patient, RN notes reviewed Mode of arrival: EMS Limitations: altered mental status - History of Present Illness Initial comments: Patient is a pleasant 75-year-old female presenting to the emergency department with concerns for decreased urinary output and difficulty using PEG tube. Unclear onset. Patient is a poor historian and offers little information. Patient feels like she needs to urinate. Bladder scan from nursing facility reported at 25 mL. No reported vomiting. No reported fevers. - Related Data Home Medications Medication Instructions Recorded Confirmed Pravastatin Sodium [Pravachol] 40 mg PEG/G-TUBE HS@2100 05/20/17 03/05/20 levETIRAcetam [Keppra Oral 100 mg PEG/G-TUBE DAILY@0800 09/27/17 03/05/20 Solution] Aspirin 81 mg PEG/G-TUBE DAILY@0800 05/30/18 03/05/20 Metoprolol Tartrate [Lopressor] 100 mg PEG/G-TUBE BID@0800,1700 05/30/18 03/05/20 Omeprazole Susp 2mg/Ml 20 mg PEG/G-TUBE HS@2100 05/30/18 03/05/20 Acetaminophen Oral Susp [Tylenol] 650 mg PEG/G-TUBE Q6H PRN 12/25/19 03/05/20 Apixaban [Eliquis] 2.5 mg PEG/G-TUBE BID@0800,1700 12/25/19 03/05/20 Cetirizine HCl 10 mg PEG/G-TUBE DAILY@1700 12/25/19 03/05/20 Cholestyramine/Aspartame 4 gm PEG/G-TUBE DAILY@0800 12/25/19 03/05/20 [Cholestyramine Light Packet] Diltiazem Oral [Cardizem*] 30 mg PEG/G-TUBE TID@0600,1400,2200 12/25/19 03/05/20 Feosol Liquid 220mg/5ml 330 mg PEG/G-TUBE DAILY@1700 12/25/19 03/05/20 Gabapentin Solution 250mg/5ml 100 mg PEG/G-TUBE 12/25/19 03/05/20 TID@0600,1400,2100 Magnesium Hydroxide [Milk of 7,200 mg PEG/G-TUBE DAILY PRN 12/25/19 03/05/20 Magnesia Concentrate] Multivitamins, Thera Liquid 5 ml PO DAILY@1700 12/25/19 03/05/20 [Theragran Liquid (formulary)] bisacodyL [Dulcolax] 10 mg RECTAL DAILY PRN 12/25/19 03/05/20 hydrOXYzine HCL 25 mg PEG/G-TUBE TID@0600,1400,2200 12/25/19 03/05/20 Cephalexin [Keflex] 500 mg PEG/G-TUBE BID@0600,1800 03/05/20 03/05/20 INSULIN ASPART (NovoLOG) [NovoLOG See Protocol SQ Q6HR 03/05/20 03/05/20 (formulary)] Previous Rx's Medication Instructions Recorded Hydrophilic Cream [Triad Cream] 1 applic TOPICAL DAILY applic 01/01/20 Furosemide [Lasix] 40 mg PO BID@0900,1600 tab 03/14/20 Insulin Detemir (Levemir) [Levemir] 48 unit SQ HS syr 03/14/20 metroNIDAZOLE 0.75% CREAM 1 applic TOPICAL DAILY applic 03/14/20 [Metrocream] Allergies Allergy/AdvReac Type Severity Reaction Status Date / Time ciprofloxacin [From Cipro] Allergy Rash/Hives Verified 06/11/20 10:33 ciprofloxacin HCl Allergy Rash/Hives Verified 06/11/20 10:33 [From Cipro] Quinolones Allergy Unknown Verified 06/11/20 10:33 Review of Systems ROS Statement: Those systems with pertinent positive or pertinent negative responses have been documented in the HPI. ROS Other: All systems not noted in ROS Statement are negative. Limitations: ROS unobtainable due to patients medical condition Past Medical History Past Medical History: Atrial Fibrillation, Atrial Flutter, Asthma, Cancer, Heart Failure, CVA/TIA, Dementia, Diabetes Mellitus, GERD/Reflux, GI Bleed, Hyperlipidemia, Hypertension, Pneumonia, Sleep Apnea/CPAP/BIPAP Additional Past Medical History / Comment(s): Verified with [facility]ALK[facility] papers r/t son Jose Rafael being unsure of history. Jose Rafael states he is also pt's DPOA. 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, post traumatic seizures, History of Any Multi-Drug Resistant Organisms: MRSA Date of last positivie culture/infection: 05/18/20 MDRO Source:: Urine Past Surgical History: Breast Surgery, Cardiac Valve Replacement, Heart Catheterization With Stent, Hysterectomy, Orthopedic Surgery, Pacemaker, Tonsillectomy Additional Past Surgical History / Comment(s): Peg tube, mechanical mitral valve 2000, polypectomy spinal cord/cyst removed, TEEs, CVNs, colonoscopies, bilateral cataract removal/lens implants, L rotator cuff repair, R femur fracture with IM hip/screw/nail, L breast lumpectomy, Past Anesthesia/Blood Transfusion Reactions: No Reported Reaction Date of Last Stent Placement:: 2006 Type of Cardiac Device: Permanent Pacemaker Device Placement Date:: 2009 Past Psychological History: Depression Smoking Status: Unknown if ever smoked Past Alcohol Use History: Unable to Obtain Past Drug Use History: Unable to Obtain - Past Family History Father Family Medical History: GI Bleed Additional Family Medical History / Comment(s): OF BLEEDING ULCER AT AGE 64 Mother Family Medical History: Cancer, CVA/TIA Additional Family Medical History / Comment(s): HX STROKES, COLON CANCER General Exam Limitations: no limitations General appearance: alert, in no apparent distress Head exam: Present: atraumatic Eye exam: Present: normal appearance Neck exam: Present: normal inspection Respiratory exam: Present: normal lung sounds bilaterally Cardiovascular Exam: Present: tachycardia, irregular rhythm GI/Abdominal exam: Present: distended, normal bowel sounds. Absent: tenderness, guarding, rebound, rigid, pulsatile mass Extremities exam: Present: normal inspection Neurological exam: Present: alert Psychiatric exam: Present: normal affect, normal mood Skin exam: Present: normal color, other (Mild purulent drainage from the PEG tube site. No erythema. No tenderness.) Course Vital Signs 06/11/20 06/11/20 06/11/20 10:25 10:57 11:09 Temperature 98.1 F Pulse Rate 75 18 L Respiratory 18 18 Rate Blood Pressure 238/123 175/88 O2 Sat by Pulse 96 98 Oximetry EKG Findings - EKG Comments: EKG Findings:: A. fib with rate of 135. VA 180. QRS 78. QT to 70. QTc 405. Normal axis. Normal QRS. Lateral ST depression. Medical Decision Making - Medical Decision Making Patient reevaluated and updated. Case was discussed with Dr. Gomez who is familiar with this patient and will admit with surgical consult. - Lab Data Result diagrams: 06/11/20 10:54 06/11/20 10:54 Lab Results 06/11/20 06/11/20 06/11/20 Range/Units 10:54 10:54 10:54 WBC 10.1 (3.8-10.6) k/uL RBC 4.78 (3.80-5.40) m/uL Hgb 11.5 (11.4-16.0) gm/dL Hct 36.2 (34.0-46.0) % MCV 75.8 L (80.0-100.0) fL MCH 24.0 L (25.0-35.0) pg MCHC 31.7 (31.0-37.0) g/dL RDW 19.0 H (11.5-15.5) % Plt Count 214 (150-450) k/uL MPV 8.9 Neutrophils % 81 % Lymphocytes % 10 % Monocytes % 5 % Eosinophils % 2 % Basophils % 1 % Neutrophils # 8.2 H (1.3-7.7) k/uL Lymphocytes # 1.0 (1.0-4.8) k/uL Monocytes # 0.5 (0-1.0) k/uL Eosinophils # 0.2 (0-0.7) k/uL Basophils # 0.1 (0-0.2) k/uL Hypochromasia Moderate Anisocytosis Slight Microcytosis Moderate PT (9.0-12.0) sec INR (<1.2) APTT (22.0-30.0) sec Sodium 137 (137-145) mmol/L Potassium 4.7 (3.5-5.1) mmol/L Chloride 100 (98-107) mmol/L Carbon Dioxide 30 (22-30) mmol/L Anion Gap 7 mmol/L BUN 34 H (7-17) mg/dL Creatinine 0.40 L (0.52-1.04) mg/dL Est GFR (CKD-EPI)AfAm >90 (>60 ml/min/1.73 sqM) Est GFR (CKD-EPI)NonAf >90 (>60 ml/min/1.73 sqM) Glucose 187 H (74-99) mg/dL Calcium 9.7 (8.4-10.2) mg/dL Total Bilirubin 0.5 (0.2-1.3) mg/dL AST 27 (14-36) U/L ALT 18 (4-34) U/L Alkaline Phosphatase 160 H (38-126) U/L Total Protein 7.2 (6.3-8.2) g/dL Albumin 3.6 (3.5-5.0) g/dL Amylase 52 (30-110) U/L Lipase 178 (23-300) U/L Urine Color Yellow Urine Appearance Turbid H (Clear) Urine pH 8.0 (5.0-8.0) Ur Specific Vendor 1.016 (1.001-1.035) Urine Protein 1+ H (Negative) Urine Glucose (UA) Negative (Negative) Urine Ketones Negative (Negative) Urine Blood Small H (Negative) Urine Nitrite Positive H (Negative) Urine Bilirubin Negative (Negative) Urine Urobilinogen <2.0 (<2.0) mg/dL Ur Leukocyte Esterase Large H (Negative) Urine RBC 75 H (0-5) /hpf Urine WBC >182 H (0-5) /hpf Urine WBC Clumps Moderate H (None) /hpf Amorphous Sediment Few H (None) /hpf Urine Bacteria Occasional H (None) /hpf 06/11/20 Range/Units 10:54 WBC (3.8-10.6) k/uL RBC (3.80-5.40) m/uL Hgb (11.4-16.0) gm/dL Hct (34.0-46.0) % MCV (80.0-100.0) fL MCH (25.0-35.0) pg MCHC (31.0-37.0) g/dL RDW (11.5-15.5) % Plt Count (150-450) k/uL MPV Neutrophils % % Lymphocytes % % Monocytes % % Eosinophils % % Basophils % % Neutrophils # (1.3-7.7) k/uL Lymphocytes # (1.0-4.8) k/uL Monocytes # (0-1.0) k/uL Eosinophils # (0-0.7) k/uL Basophils # (0-0.2) k/uL Hypochromasia Anisocytosis Microcytosis PT 9.6 (9.0-12.0) sec INR 0.9 (<1.2) APTT 21.6 L (22.0-30.0) sec Sodium (137-145) mmol/L Potassium (3.5-5.1) mmol/L Chloride (98-107) mmol/L Carbon Dioxide (22-30) mmol/L Anion Gap mmol/L BUN (7-17) mg/dL Creatinine (0.52-1.04) mg/dL Est GFR (CKD-EPI)AfAm (>60 ml/min/1.73 sqM) Est GFR (CKD-EPI)NonAf (>60 ml/min/1.73 sqM) Glucose (74-99) mg/dL Calcium (8.4-10.2) mg/dL Total Bilirubin (0.2-1.3) mg/dL AST (14-36) U/L ALT (4-34) U/L Alkaline Phosphatase (38-126) U/L Total Protein (6.3-8.2) g/dL Albumin (3.5-5.0) g/dL Amylase (30-110) U/L Lipase (23-300) U/L Urine Color Urine Appearance (Clear) Urine pH (5.0-8.0) Ur Specific Vendor (1.001-1.035) Urine Protein (Negative) Urine Glucose (UA) (Negative) Urine Ketones (Negative) Urine Blood (Negative) Urine Nitrite (Negative) Urine Bilirubin (Negative) Urine Urobilinogen (<2.0) mg/dL Ur Leukocyte Esterase (Negative) Urine RBC (0-5) /hpf Urine WBC (0-5) /hpf Urine WBC Clumps (None) /hpf Amorphous Sediment (None) /hpf Urine Bacteria (None) /hpf - Radiology Data Radiology results: report reviewed (Computed tomography scan abdomen pelvis shows cholelithiasis. Cardiomegaly. No obstruction Or free air or fluid.) Disposition Clinical Impression: Urinary tract infection, PEG tube malfunction, General weakness Disposition: ADMITTED IP TO THIS HOSP Is patient prescribed a controlled substance at d/c from ED?: No Referrals: Luis A Gomez MD [Primary Care Provider] - 1-2 days Decision Time: 13:12
[2020-06-11] MEDS ORDERED: LABETALOL 5 MG/ML VIAL MDV IVP STA (11:02)
[2020-06-11 11:11] LABS: Amorphous Sediment,Urine Few /hpf; Appearance,Urine Turbid (Clear); Bacteria,Urine Occasional /hpf; Bilirubin,Urine Negative (Negative); Blood,Urine Small (Negative); Color,Urine Yellow; Glucose,Urine (UA) Negative (Negative); Ketones,Urine Negative (Negative); Leukocyte Esterase,Urine Large (Negative); Nitrite,Urine Positive (Negative); Protein,Urine 1+ (Negative); RBC,Urine 75 /hpf (0-5); Specific Gravity,Urine 1.016 (1.001-1.035); Urobilinogen,Urine <2.0 mg/dL (<2.0); WBC,Urine >182 /hpf (0-5)
[2020-06-11 11:15] LABS: Anisocytosis Slight; Basophils # (A) 0.1 k/uL (0-0.2); Basophils % (A) 1 %; Eosinophils # (A) 0.2 k/uL (0-0.7); Eosinophils % (A) 2 %; HCT 36.2 % (34.0-46.0); HGB 11.5 gm/dL (11.4-16.0); Hypochromasia Moderate; Lymphocytes % (A) 10 %; MCHC 31.7 g/dL (31.0-37.0); MCV 75.8 fL (80.0-100.0); Mean Platelet Volume 8.9; Microcytosis Moderate; Monocytes # (A) 0.5 k/uL (0-1.0); Monocytes % (A) 5 %; Neutrophils # (A) 8.2 k/uL (1.3-7.7); Neutrophils % (A) 81 %; Platelet Count 214 k/uL (150-450); RBC 4.78 m/uL (3.80-5.40); WBC 10.1 k/uL (3.8-10.6)
[2020-06-11 11:31] LABS: INR 0.9 (<1.2); Prothrombin Time 9.6 sec (9.0-12.0)
[2020-06-11 11:38] LABS: ALT 18 U/L (4-34); AST 27 U/L (14-36); African American GFR (CKD) >90 (>60 ml/min/1.73 sqM); Albumin 3.6 g/dL (3.5-5.0); Alkaline Phosphatase 160 U/L (38-126); Amylase 52 U/L (30-110); Anion Gap 7 mmol/L; Blood Urea Nitrogen 34 mg/dL (7-17); Calcium 9.7 mg/dL (8.4-10.2); Carbon Dioxide 30 mmol/L (22-30); Chloride 100 mmol/L (98-107); Glucose 187 mg/dL (74-99); Lipase 178 U/L (23-300); Non-African American GFR(CKD) >90 (>60 ml/min/1.73 sqM); Potassium 4.7 mmol/L (3.5-5.1); Sodium 137 mmol/L (137-145); Total Bilirubin 0.5 mg/dL (0.2-1.3); Total Protein 7.2 g/dL (6.3-8.2)
[2020-06-11 11:39] LABS: Partial Thromboplastin Time 21.6 sec (22.0-30.0)
--- NOTE | 2020-06-11 13:05 | CT ---
EXAMINATION TYPE: CT abdomen pelvis w con DATE OF EXAM: 06/11/2020 COMPARISON: 03/08/2020 HISTORY: pain (pt non verbal unable to obtain history) CT DLP: 1948.8 mGycm Automated exposure control for dose reduction was used. TECHNIQUE: Helical acquisition of images was performed from the lung bases through the pelvis. CONTRAST: Performed with Oral Contrast and with IV Contrast, patient injected with 100 mL of Isovue 300. FINDINGS: The lung bases are clear. The heart is markedly enlarged. There is a feeding tube within the stomach. There are a few tiny gallstones but no gallbladder distention, gallbladder wall thickening or para ch olecystic fluid. There is no biliary ductal dilatation. There is no focal mass or organomegaly involving the liver, pancreas, spleen or adrenal glands. There is a 7.5 mm nonobstructing calcification of the left kidney. There is no hydronephrosis bilater ally. Caliber of the abdominal aorta is normal and there is no retroperitoneal adenopathy or hemorrhage. There is no free intraperitoneal air or fluid. The bowel loops are normal in caliber and there is no evidence of obstruction or inflammation. The catheter in the urinary bladder. There is no pelvic mass, free fluid, abscess or adenopathy. There is surgical absence of the uterus There is a right hip prosthesis otherwise the osseous structures are intact. IMPRESSION: 1. Cholelithiasis. 2. Marked cardiomegaly. 3. Nonobstructing left renal calcification. 4. No evidence of bowel obstruction or inflammation. No free intraperitoneal air or fluid.
[2020-06-11] MEDS ORDERED: NALOXONE 0.4 MG/ML 1 ML VIAL IV PRN (13:13)
[2020-06-11] MEDS ORDERED: ACETAMINOPHEN ORAL SUSP 160 MG/5 ML CUP PEG/G-TUBE PRN (13:20)
[2020-06-11] MEDS ORDERED: MAGNESIUM HYDROXIDE 2,400 MG/10 ML CUP PEG/G-TUBE PRN (13:20)
[2020-06-11] MEDS ORDERED: bisacodyL 10 MG SUPP RECTAL PRN (13:20)
--- NOTE | 2020-06-11 15:27 | HP ---
HISTORY AND PHYSICAL A 75-year-old female comes to the emergency room with concern for decreased urinary output, difficulty with getting fluid through her PEG tube, increased abdominal distention and possible severe infection, UTI, a little bit of delirium, increased abdominal distention and inability to feed her through the PEG tube. Bladder scan showed 25 mL. No reported vomiting. No reported fevers. HOME MEDICINES: Pravachol 40 per PEG tube, Keppra 100 per PEG tube, aspirin 81 per PEG tube, Lopressor 100 b.i.d., PEG tube, omeprazole 20, PEG tube, Eliquis 2.5 b.i.d. PEG tube, sertraline 10 mg, PEG tube, cholestyramine 4 mg, PEG tube, ferrous liquid 330 mg, PEG tube, gabapentin 800 t.i.d., PEG tube. Milk of Magnesia 7200 mg per PEG tube, multivitamin daily, PEG tube, Keflex 500 t.i.d., PEG tube, NovoLog a.c. and HS subcu and 42 units of long standing insulin daily. ALLERGIES: CIPRO, QUINOLONES. Unclear if she really has these allergies. REVIEW OF SYSTEMS: Fourteen-point review of systems negative except for mentioned in HPI. PAST MEDICAL HISTORY: Atrial fibrillation, flutter, asthma, cancer, heart failure, CVA, TIA, dementia, diabetes mellitus, GERD, GI bleed, dyslipidemia, hypertension, pneumonia, sleep apnea. Her son Jose Rafael is power of title i instructional assistant. Hemiplegia, hemiparesis, status post subarachnoid hemorrhage, dysphagia, n.p.o. She is on PEG tube, chronic CHF, chronic blood-loss anemia, seasonal allergies. SURGERIES: Breast surgery for breast cancer, cardiac valve replacement, heart catheterization with stent, hysterectomy, orthopedic surgery, pacemaker, tonsillectomy. FAMILY HISTORY: Father with GI bleed. Mother with CVA, TIA. PHYSICAL EXAMINATION: She is laying flat. She is looking up. She states she is cold. VITAL SIGNS: Temperature 98.1, pulse is 75-80, respiratory rate 16-18, blood pressure is 170s to 200s over 88-123, O2 saturation 96 to 98% on 2 L. HEENT: Normocephalic atraumatic. She has given appropriate answers. ABDOMEN is distended. PEG tube in place and some drainage from the PEG tube. Abdomen is more distended than normal. EXTREMITIES: 2+ edema. NEUROLOGIC: She is giving appropriate answers. Alert. PSYCH: Fair mood and affect. SKIN: Some purulent drainage around the PEG tube. LABS: Reviewed. Normal white count 10.1, hemoglobin 11.5, BUN is 34, creatinine 0.4. UA shows over 182 white cells, 75 red cells, moderate white blood cell count, bacteria. ASSESSMENT: 1. Urinary tract infection with sepsis. 2. PEG tube malfunction, possible PEG tube infection. 3. Generalized weakness. Infectious Disease will be consulted, as well as GI to fix the PEG tube. Prognosis guarded. MMODL / IJN: [id number] /
[2020-06-11] MEDS: SODIUM CHLORIDE 0.9% 1,000 ML IV SCH ×2 (16:13→21:32)
--- NOTE | 2020-06-11 16:53 | CONS ---
CONSULTATION DATE OF SERVICE: 06/11/2020. REASON FOR CONSULTATION: UTI and malfunctioning PEG tube. HISTORY OF PRESENT ILLNESS: The patient is a 75-year-old female, [facility] resident, the patient has been sent to the ER at [facility] this morning for evaluation of a nonfunctioning PEG tube and concern for possible infection. The patient, on presentation to the ER, did complain of some urinary symptoms of needs to urinate, some burning. BladderScan did not show any evidence of urinary retention. Gross catheter was still placed. UA was obtained which is positive. She was started on Rocephin. The patient also had a CT of abdomen and pelvis that did not show any acute abnormality. Infectious disease was consulted for further management. At the time of my evaluation, the patient is afebrile. The patient denies having any headache, chest pain, shortness of breath or cough. No abdominal pain. No diarrhea. Overall not a good historian so most of the information has been obtained from review of the chart. REVIEW OF SYSTEMS: Positive points have been mentioned in HPI. Rest of systems negative. PAST MEDICAL HISTORY: Atrial fibrillation and atrial flutter, heart failure, CVA/TIA, dementia, diabetes mellitus, gastroesophageal reflux disease, GI bleed, hypertension, hyperlipidemia, pneumonia, sleep apnea. PAST SURGICAL HISTORY: PTCA with stent, hysterectomy, pacemaker placement, tonsillectomy, PEG tube placement and mechanical mitral valve. SOCIAL HISTORY: No history of smoking, drinking or drug use. Current [facility] resident. FAMILY HISTORY: Father from bleeding ulcer age of 64. Mother history of CVA and TIA. ALLERGIES: CIPROFLOXACIN. MEDICATIONS: The patient is currently on Tylenol, Eliquis, aspirin, Dulcolax, Rocephin 1 g daily. She is on Questran, iron sulfate, Lasix, Neurontin, Atarax, Levemir, Loratadine, Lopressor, triad cream, Narcan, Protonix, and IV fluid. PHYSICAL EXAMINATION: Blood pressure 175/88 with a pulse of 75, temperature 98.1. She is 98% on 2 L nasal cannula. General description is an elderly female lying in bed in no distress. HEENT: Examination shows no pallor or scleral icterus. Oral mucous membranes dry. NECK: Trachea central. No thyromegaly. LUNGS unlabored breathing. Clear to auscultation anteriorly. No wheeze or crackles. HEART S1, S2. Regular rate and rhythm. ABDOMEN: Soft, mildly distended. No guarding. No rigidity. The PEG tube site has no significant redness or drainage was noticed. EXTREMITIES: No edema of the feet. NEUROLOGICAL: Patient is awake, alert, oriented x 2. Mood and affect normal. LABS: Hemoglobin is 11.5, white count 10.1, BUN of 34, creatinine 0.40. Urine has been positive with large leukocyte esterase, more than 2 WBCs. Olea PCR was negative. DIAGNOSTIC IMPRESSION/PLAN: 1. Patient admitted to hospital with nonfunctioning of the PEG tube. However, the PEG tube site did not have significant cellulitis. CT of abdomen and pelvis did not show any evidence of any abscess. Recommend local wound care and possibly evaluation of the PEG tube by GI or surgery for patency and work. 2. Urinary tract infection, likely from enteric Gram-negative pathogen. 3. ANTIBIOTIC ALLERGIES, limiting the number of antibiotics safe to use. PLAN: 1. Patient to continue with Rocephin 1 g daily while waiting for the culture to finalize. 2. Triad cream around the PEG tube site. 3. We will follow on clinical condition and culture to further adjust medication if needed. Thank you for this consultation. We will follow this patient along with you. MMODL / IJN: [id number] /
[2020-06-11 17:16] LABS: Glucose,Whole Blood 192 mg/dL (75-99)
[2020-06-11] MEDS ORDERED: CEPHALEXIN 500 MG CAP PEG/G-TUBE SCH (18:00)
[2020-06-11] MEDS: FUROSEMIDE 40 MG TAB PO SCH (18:10)
[2020-06-11] MEDS: LORATADINE 10 MG TAB PEG/G-TUBE SCH (18:10)
[2020-06-11] MEDS: METOPROLOL TARTRATE 50 MG TAB PEG/G-TUBE SCH (18:10)
[2020-06-11] MEDS: APIXABAN 2.5 MG TABLET PEG/G-TUBE SCH (18:10)
[2020-06-11] MEDS: GABAPENTIN 100 MG CAP PEG/G-TUBE SCH ×2 (18:10→21:04)
[2020-06-11 20:57] LABS: Glucose,Whole Blood 122 mg/dL (75-99)
[2020-06-11] MEDS ORDERED: OMEPRAZOLE PEG/G-TUBE SCH (21:00)
[2020-06-11] MEDS: FERROUS SULFATE ORAL ELIXIR 300 MG/5 ML CUP PEG/G-TUBE SCH (21:02)
[2020-06-11] MEDS: MULTIVITAMINS, THERA LIQUID 237 ML BOTTLE PO SCH (21:02)
[2020-06-11] MEDS: hydrOXYzine HCL 25 MG TAB PEG/G-TUBE SCH ×2 (21:02→21:32)
[2020-06-11] MEDS: DILTIAZEM ORAL 30 MG TAB PEG/G-TUBE SCH ×2 (21:02→21:04)
[2020-06-11] MEDS: INSULIN DETEMIR (LEVEMIR) 100 UNIT/ML SYR SQ SCH (21:04)
[2020-06-11] MEDS: ACETAMINOPHEN ORAL SUSP (PEDS) 3,840 MG/120 ML BOTTLE PEG/G-TUBE PRN (21:05)
[2020-06-12] MEDS: hydrOXYzine HCL 25 MG TAB PEG/G-TUBE SCH ×3 (05:57→22:30)
[2020-06-12] MEDS: DILTIAZEM ORAL 30 MG TAB PEG/G-TUBE SCH ×3 (05:57→22:30)
[2020-06-12] MEDS: GABAPENTIN 100 MG CAP PEG/G-TUBE SCH ×3 (05:57→22:31)
[2020-06-12 07:19] LABS: Glucose,Whole Blood 89 mg/dL (75-99)
[2020-06-12] MEDS: APIXABAN 2.5 MG TABLET PEG/G-TUBE SCH ×2 (08:25→16:55)
[2020-06-12] MEDS: ASPIRIN 81 MG PEG/G-TUBE SCH (08:25)
[2020-06-12] MEDS: FUROSEMIDE 40 MG TAB PO SCH ×2 (08:25→16:55)
[2020-06-12] MEDS: METOPROLOL TARTRATE 50 MG TAB PEG/G-TUBE SCH ×2 (08:25→16:55)
[2020-06-12] MEDS: PANTOPRAZOLE 40 MG/10 ML VIAL IV SCH (08:26)
[2020-06-12] MEDS: levETIRAcetam ORAL SOLN 500 MG/5 ML CUP PEG/G-TUBE SCH (08:28)
[2020-06-12] MEDS: CHOLESTYRAMINE (WITH SUGAR) 4 GM PACKET PEG/G-TUBE SCH (08:28)
[2020-06-12] MEDS: SODIUM CHLORIDE 0.9% 1,000 ML IV SCH ×3 (08:31→22:32)
--- NOTE | 2020-06-12 09:15 | CONS ---
CONSULTATION DATE OF DICTATION: June 12, 2020. REASON FOR CONSULTATION: PEG tube malfunction. HISTORY OF PRESENT ILLNESS: The patient is a 75-year-old pleasant white female who was sent to the emergency room because of concern for PEG tube malfunction. Apparently at the assisted, they were not able to flush the PEG tube and they thought it was clogged and she was sent to the emergency room and subsequently was admitted to the hospital for further evaluation. As per the nursing staff, after she arrived to the floor, the PEG tube was flushed and appears to be patent. She did have some cellulitis around the PEG tube and Dr. Chavira has been consulted who started her on broad-spectrum antibiotics. The patient has prior history of CVA and had a PEG tube placed a few months ago. In the emergency room, she did have a CT of the abdomen and pelvis done that did not show any significant pathology. PAST MEDICAL HISTORY: Significant for atrial fibrillation, history of congestive heart failure, CVA/TIA in the past, diabetes mellitus, hypertension, hyperlipidemia, gastroesophageal reflux disease, sleep apnea. PAST SURGICAL HISTORY: Significant for coronary artery disease with stent placement, also history of hysterectomy, pacemaker implantation, history of PEG tube placement, mechanical mitral valve replacement. MEDICATIONS: Medications at home include Eliquis, aspirin, Dulcolax, Tylenol, gabapentin, Cardizem, Glucophage, Lopressor, Pravachol, Theragran, Keppra, Actos, Fleet enema. ALLERGIES: CIPRO AND QUINOLONES. SOCIAL HISTORY: Remote history of smoking. No alcohol use. FAMILY HISTORY: Unremarkable. REVIEW OF SYSTEMS: CARDIOPULMONARY: She denies any chest pain, no shortness of breath. : She has recurrent UTI. NEUROLOGY: Unremarkable. History of CVA in the past. ENT/VISION: Unremarkable. CONSTITUTIONAL: No weight loss. No fever, chills, night sweats. HEMATOLOGY unremarkable. PSYCHIATRIC unremarkable. PHYSICAL EXAMINATION: She appears comfortable. VITAL SIGNS: Stable. Blood pressure is 158/77, pulse rate 63, temperature 97.4. HEENT examination unremarkable. Conjunctivae pink. Sclerae anicteric. Oral cavity no lesions. NECK: No JVD or lymph node enlargement. CHEST was clear to auscultation. HEART: Regular rate and rhythm. ABDOMEN: Soft. Bowel sounds are positive. The PEG tube was in place. There was mild redness around the gastrostomy site, but no induration noted. EXTREMITIES: No pedal edema. NEURO: She is awake and alert with focal deficits. LABS: From today WBC 10.1, hemoglobin 11.5, platelets normal. Basic metabolic panel: BUN 34, creatinine 0.40. Covid PCR negative. CT of the abdomen and pelvis did not show any significant pathology. There was some cholelithiasis, cardiomegaly, nonobstructing left renal calculus noted. IMPRESSION: 1. History of gastrostomy with PEG tube placement in the past. The patient does appear to have mild PEG tube cellulitis. Presently on antibiotics with IV Rocephin as per Dr. Chavira. The PEG tube appears to be in good position and there is no mechanical obstruction noted at the current time. 2. History of cerebrovascular accident in the past. 3. History of atrial fibrillation on Eliquis. 4. History of hypertension, hyperlipidemia and diabetes mellitus. RECOMMENDATION: 1. Discussed with the nursing staff. We will start her PEG tube feeds today. 2. Continue on broad-spectrum antibiotics. 3. Monitor her closely. 4. We will follow with you. Thank you for this consultation. MMODL / IJN: [id number] /
[2020-06-12 12:03] LABS: Glucose,Whole Blood 85 mg/dL (75-99)
[2020-06-12] MEDS: HYDROPHILIC CREAM 180 GM TUBE TOPICAL SCH (12:18)
[2020-06-12] MEDS: LORATADINE 10 MG TAB PEG/G-TUBE SCH (16:55)
[2020-06-12] MEDS: ACETAMINOPHEN ORAL SUSP (PEDS) 3,840 MG/120 ML BOTTLE PEG/G-TUBE PRN ×2 (16:56→22:32)
[2020-06-12] MEDS: MULTIVITAMINS, THERA LIQUID 237 ML BOTTLE PO SCH (16:56)
[2020-06-12] MEDS: FERROUS SULFATE ORAL ELIXIR 300 MG/5 ML CUP PEG/G-TUBE SCH (16:56)
[2020-06-12 17:21] LABS: Glucose,Whole Blood 75 mg/dL (75-99)
[2020-06-12 20:36] LABS: Glucose,Whole Blood 83 mg/dL (75-99)
[2020-06-12] MEDS: INSULIN DETEMIR (LEVEMIR) 100 UNIT/ML SYR SQ SCH (22:31)
--- NOTE | 2020-06-13 05:25 | PN ---
PROGRESS NOTE DATE OF SERVICE: 06/12/2020 REASON FOR FOLLOWUP: UTI and Peg site cellulitis. INTERVAL HISTORY: Patient is currently afebrile. The patient is more awake and alert. She is breathing comfortably. Denies any chest pain, shortness of breath or cough. No abdominal pain or diarrhea. Has been tolerating her tube feeds, had to restarted by the nursing staff. PHYSICAL EXAMINATION: Blood pressure 142/79, pulse of 79, temperature is 97.9 and 94% on 2 L nasal cannula. General description is an elderly female lying in bed in no distress. Respiratory system: Unlabored breathing, clear to auscultation anteriorly. Heart S1, S2. Regular rate and rhythm. Abdomen soft, no tenderness. LABS: Urine showing a Gram-negative. DIAGNOSTIC IMPRESSION AND PLAN: 1. Patient with Gram-negative urinary tract infection. Gross catheter has been changed. Patient is currently covered with Rocephin to continue while waiting for the culture to finalize. 2. Patient with malfunctioning of the PEG tube. Clinical suspicion low for skin cellulitis. Continue local wound care with zince cream and monitor clinical course closely. MMODL / IJN: [id number] / MTDD
[2020-06-13] MEDS: GABAPENTIN 100 MG CAP PEG/G-TUBE SCH ×3 (05:44→21:03)
[2020-06-13] MEDS: DILTIAZEM ORAL 30 MG TAB PEG/G-TUBE SCH ×3 (05:44→21:02)
[2020-06-13] MEDS: hydrOXYzine HCL 25 MG TAB PEG/G-TUBE SCH ×3 (05:44→21:03)
[2020-06-13 06:16] LABS: Anisocytosis Slight; Basophils % (A) 0 %; Eosinophils # (A) 0.4 k/uL (0-0.7); Eosinophils % (A) 4 %; HGB 12.3 gm/dL (11.4-16.0); Hypochromasia Moderate; Lymphocytes # (A) 1.7 k/uL (1.0-4.8); Lymphocytes % (A) 16 %; MCH 24.2 pg (25.0-35.0); MCHC 31.4 g/dL (31.0-37.0); Mean Platelet Volume 8.5; Microcytosis Slight; Monocytes # (A) 0.7 k/uL (0-1.0); Monocytes % (A) 7 %; Neutrophils # (A) 7.5 k/uL (1.3-7.7); Neutrophils % (A) 71 %; Platelet Count 229 k/uL (150-450); RBC 5.07 m/uL (3.80-5.40); RDW 18.8 % (11.5-15.5); WBC 10.6 k/uL (3.8-10.6)
[2020-06-13 07:07] LABS: Glucose,Whole Blood 83 mg/dL (75-99)
[2020-06-13] MEDS: SODIUM CHLORIDE 0.9% 1,000 ML IV SCH ×2 (07:14→17:35)
[2020-06-13 09:14] LABS: African American GFR (CKD) 104.1 (60.0-200.0); Albumin 3.3 g/dL (3.80-4.90); Anion Gap 10.5 mmol/L (4.00-12.00); BUN/Creat Ratio 28.33 Ratio (12.00-20.00); Calcium 8.7 mg/dL (8.7-10.3); Carbon Dioxide 26.5 mmol/L (21.6-31.8); Globulin 3.3 g/dL (1.6-3.3); Non-African American GFR(CKD) 89.8 (60.0-200.0); Total Bilirubin 0.4 mg/dL (0.3-1.2); Total Protein 6.6 g/dL (6.2-8.2)
[2020-06-13 10:14] VITALS: BMI 29.9
[2020-06-13] MEDS: METOPROLOL TARTRATE 50 MG TAB PEG/G-TUBE SCH ×2 (10:27→17:27)
[2020-06-13] MEDS: CHOLESTYRAMINE (WITH SUGAR) 4 GM PACKET PEG/G-TUBE SCH (10:27)
[2020-06-13] MEDS: APIXABAN 2.5 MG TABLET PEG/G-TUBE SCH ×2 (10:27→17:27)
[2020-06-13] MEDS: ASPIRIN 81 MG PEG/G-TUBE SCH (10:27)
[2020-06-13] MEDS: FUROSEMIDE 40 MG TAB PO SCH ×2 (10:28→17:29)
[2020-06-13] MEDS: levETIRAcetam ORAL SOLN 500 MG/5 ML CUP PEG/G-TUBE SCH (10:29)
[2020-06-13] MEDS: HYDROPHILIC CREAM 180 GM TUBE TOPICAL SCH (10:30)
[2020-06-13] MEDS: PANTOPRAZOLE 40 MG/10 ML VIAL IV SCH (10:30)
--- NOTE | 2020-06-13 12:04 | P.PN ---
Subjective Progress Note Date: 06/13/20 Principal diagnosis: PEG tube dysfunction This is a 75-year-old pleasant white female who was sent to the emergency room from an extended care facility for concerns of PEG tube malfunction. Currently at the assisted the nurses were having difficulty flushing the PEG tube and thought it was clogged so they sent the patient to the emergency department. During her hospitalization here nursing had no difficulty with flushing the PEG tube. Yesterday where he was placed to begin PEG tube feedings with consult a dietitian. Unfortunately the patient was not started yet on her PEG tube feedings. She is denying any abdominal pain, nausea, or vomiting. Infectious diseases on consult for cellulitis around the PEG tube patient should is on broad-spectrum antibiotics. Objective - Vital Signs Vital signs: Vital Signs Temp 98.6 F 06/13/20 04:46 Pulse 80 06/13/20 04:46 Resp 16 06/13/20 04:46 BP 120/79 06/13/20 04:46 Pulse Ox 94 L 06/13/20 04:46 Intake & Output 06/12/20 06/13/20 06/13/20 18:59 06:59 18:59 Intake Total 0 Output Total 1200 200 Balance -1200 -200 Intake: Oral 0 Output: Urine 1200 200 Uretheral (Gross) 200 Other: Voiding Method Indwelling Catheter Indwelling Catheter - Exam General appearance: The patient is alert, oriented, appears in no acute distress. HET: Head is normocephalic and atraumatic. Conjunctiva pink. Sclera anicteric. Neck: Supple without lymphadenopathy. Abdomen: Soft, nontender, nondistended with bowel sounds. PEG tube clean dry and intact with mild redness around PEG tube. No guarding or rigidity. Extremities: Normal skin color and turgor. No pedal edema Skin: No rashes, no jaundice Neurological: No focal deficits. Alert and oriented 3. - Labs CBC & Chem 7: 06/13/20 05:40 06/13/20 05:40 Labs: Abnormal Lab Results - Last 24 Hours (Table) 06/13/20 06/13/20 Range/Units 05:40 05:40 MCV 77.0 L (80.0-100.0) fL MCH 24.2 L (25.0-35.0) pg RDW 18.8 H (11.5-15.5) % BUN/Creatinine Ratio 28.33 H (12.00-20.00) Ratio Albumin 3.30 L (3.80-4.90) g/dL Albumin/Globulin Ratio 1.00 L (1.60-3.17) g/dL Microbiology - Last 24 Hours (Table) 06/11/20 10:54 Gram Stain - Preliminary Abdomen Wound Culture - Preliminary Strep agalactiae - (group b) Presumptive Staph aureus 06/11/20 10:54 Urine Culture - Final Urine,Voided Proteus mirabilis Assessment and Plan (1) History of gastrostomy, has currently Narrative/Plan: The lady with a history of gastrostomy PEG tube placement in the past. The patient does have mild PEG tube cellulitis. Presently on antibiotics with IV Rocephin has per Dr. Warner. The PEG tube appears to be in good position appears no mechanical obstruction noted at the current time. Current Visit: Yes Status: Acute Code(s): Z93.1 - GASTROSTOMY STATUS SNOMED Code(s): 299323752 (2) History of CVA (cerebrovascular accident) Current Visit: No Status: Acute Code(s): Z86.73 - PRSNL HX OF TIA (TIA), AND CEREB INFRC W/O RESID DEFICITS SNOMED Code(s): 601092864 (3) Afib Current Visit: No Status: Acute Code(s): I48.91 - UNSPECIFIED ATRIAL FIBRILLATION SNOMED Code(s): 91838240 Plan: 1. Again discussed with nursing staff to begin PEG tube feedings 2. Dietitian consult for PEG tube feedings 3. Continue broad-spectrum antibiotics as ordered per infectious disease Thank you for this consultation we will continue to follow. Dr. Kianna Amaya I agree with the dictator's note, documented as a scribe by Olivia Hollingsworth.
[2020-06-13 12:43] LABS: Glucose,Whole Blood 93 mg/dL (75-99)
--- NOTE | 2020-06-13 16:06 | CDI ---
Documentation Clarification Form Date: 06/13/2020 03:48:23 PM From: Candice Diaz RN CCDS Admit Date: 06/11/2020 01:13:00 PM Patient Name: Ariane Eric Visit Number: [id number] Discharge Date: ATTENTION: The Clinical Documentation Specialists (CDI) and [facility] Coding Staff appreciate your assistance in clarifying documentation. Please respond to the clarification below the line at the bottom and electronically sign. The CDI & [facility] Coding staff will review the response and follow-up if needed. Please note: Queries are made part of the Legal Health Record. If you have any questions, please contact the author of this message via ITS. Dr. Luis A Gomez, Your patient has the documented diagnosis of unspecified CHF 06/11/20 in H&P). Additional information regarding the type of CHF is requested. History/Risk Factors: 75-year-old female presents to the ED from ECF for decreased urinary output. Medical History: Heart failure, Atrial Fibrillation and Atrial Flutter. Clinical Indicators: VS/Pulse OX 06/11: B/P 238/123; HR 75; Temp 98.1 Oral; RR 18; SpO2 96% room air. Echocardiogram Results 06/19/2018: Mild concentric left ventricular hypertrophy. Overall left ventricular systolic function is mildly impaired with, an EF between 45-50%. Left atrium is markedly dilated. Mild tricuspid regurgitation present. Mild to moderate pulmonary hypertension. Treatment: 06/11 Lasix 40mg PO BID; Lopressor 100mg PEG G Tube BID; In your professional opinion, can you please clarify the [acuity and type] of CHF if known? [ ] Chronic Systolic Heart Failure (reduced EF) [ ] Chronic Diastolic Heart Failure (preserved EF) [ ] Chronic Systolic & Diastolic Heart Failure [ ] Other, please specify [ ] Unable to determine (Template Last Revised: March 2020) MTDD
[2020-06-13 17:23] LABS: Glucose,Whole Blood 161 mg/dL (75-99)
[2020-06-13] MEDS: FERROUS SULFATE ORAL ELIXIR 300 MG/5 ML CUP PEG/G-TUBE SCH (17:27)
[2020-06-13] MEDS: LORATADINE 10 MG TAB PEG/G-TUBE SCH (17:27)
[2020-06-13] MEDS: MULTIVITAMINS, THERA LIQUID 237 ML BOTTLE PO SCH (17:27)
--- NOTE | 2020-06-13 17:46 | PN ---
PROGRESS NOTE This white female came in with PEG tube dysfunction, urinary tract infection, altered mental status. She had abdominal bloating and cellulitis around the PEG tube. GI exam shows a distended abdomen. Head normocephalic, atraumatic. Cardiovascular: S1, S2. Lungs clear. GI distended. Sodium 142, potassium 4.0, white count 10.6, hemoglobin 4.3. ASSESSMENT: 1. 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 PEG tube appears to be in good position per GI. 2. History of cerebrovascular accident. 3. Atrial fibrillation. 4. Urinary tract infection. Dietitian consult for PEG tube feedings. Continue with treatment for urinary tract infection per Dr. Chavira's recommendations. She has a Gram-negative UTI. Gross catheter has been changed. Continue with Rocephin and wait for consults. Continue zinc cream around the PEG tube area. Prognosis guarded. MMODL / IJN: [id number] /
[2020-06-13 20:12] LABS: Glucose,Whole Blood 175 mg/dL (75-99)
[2020-06-13] MEDS: INSULIN DETEMIR (LEVEMIR) 100 UNIT/ML SYR SQ SCH (21:02)
[2020-06-14] MEDS: SODIUM CHLORIDE 0.9% 1,000 ML IV SCH ×4 (02:36→21:47)
[2020-06-14] MEDS: DILTIAZEM ORAL 30 MG TAB PEG/G-TUBE SCH ×3 (05:23→21:46)
[2020-06-14] MEDS: hydrOXYzine HCL 25 MG TAB PEG/G-TUBE SCH ×3 (05:23→21:46)
[2020-06-14] MEDS: GABAPENTIN 100 MG CAP PEG/G-TUBE SCH ×3 (05:23→21:43)
[2020-06-14 07:17] LABS: Glucose,Whole Blood 214 mg/dL (75-99)
[2020-06-14] MEDS: CHOLESTYRAMINE (WITH SUGAR) 4 GM PACKET PEG/G-TUBE SCH (07:58)
[2020-06-14] MEDS: levETIRAcetam ORAL SOLN 500 MG/5 ML CUP PEG/G-TUBE SCH (07:58)
[2020-06-14] MEDS: ASPIRIN 81 MG PEG/G-TUBE SCH (07:58)
[2020-06-14] MEDS: FUROSEMIDE 40 MG TAB PO SCH ×2 (07:59→16:12)
[2020-06-14] MEDS: HYDROPHILIC CREAM 180 GM TUBE TOPICAL SCH (07:59)
[2020-06-14] MEDS: PANTOPRAZOLE 40 MG/10 ML VIAL IV SCH (07:59)
[2020-06-14] MEDS: APIXABAN 2.5 MG TABLET PEG/G-TUBE SCH ×2 (07:59→16:12)
[2020-06-14] MEDS: METOPROLOL TARTRATE 50 MG TAB PEG/G-TUBE SCH ×2 (07:59→16:12)
[2020-06-14 11:14] LABS: Glucose,Whole Blood 161 mg/dL (75-99)
--- NOTE | 2020-06-14 11:47 | PN ---
PROGRESS NOTE DATE OF SERVICE: 06/14/2020 REASON FOR FOLLOWUP: 1. Urinary tract infection. 2. PEG tube site cellulitis. INTERVAL HISTORY: The patient is currently afebrile. The patient is sleepy, lethargic though did respond to her name and shake her head in no with any question asked. No chest pain, shortness of breath or cough. No abdominal pain. No diarrhea has been reported. She has been currently her tolerating tube feeds. PHYSICAL EXAMINATION: Blood pressure 140/73 with a pulse of 72, temperature 98.4. She is 100% on 3 L nasal cannula. General description is an elderly female lying in bed in no distress. RESPIRATORY SYSTEM: Unlabored breathing, clear to auscultation anteriorly. HEART: S1, S2. Regular rate and rhythm. ABDOMEN: Soft, nondistended. PEG tube site currently with no significant redness or drainage. LABS: Urine showing Proteus. Abdominal wall showing Streptococcus agalactiae and Staph aureus. DIAGNOSTIC IMPRESSION AND PLAN: Patient with Proteus mirabilis urinary tract infection along with PEG tube site cellulitis. The patient is covered with Rocephin. Finish therapy with oral Ceftin and monitor clinical course closely. Continue supportive care. MMODL / IJN: [id number] /
--- NOTE | 2020-06-14 15:14 | CDI ---
Documentation Clarification Form Date: 06/13/2020 03:48:23 PM From: Candice Diaz RN CCDS Admit Date: 06/11/2020 01:13:00 PM Patient Name: Ariane Eric Visit Number: [id number] Discharge Date: ATTENTION: The Clinical Documentation Specialists (CDI) and [facility] Coding Staff appreciate your assistance in clarifying documentation. Please respond to the clarification below the line at the bottom and electronically sign. The CDI & [facility] Coding staff will review the response and follow-up if needed. Please note: Queries are made part of the Legal Health Record. If you have any questions, please contact the author of this message via ITS. Dr. Luis A Gomez, Your patient has the documented diagnosis of unspecified CHF 06/11/20 in H&P). Additional information regarding the type of CHF is requested. History/Risk Factors: 75-year-old female presents to the ED from ECF for decreased urinary output. Medical History: Heart failure, Atrial Fibrillation and Atrial Flutter. Clinical Indicators: VS/Pulse OX 06/11: B/P 238/123; HR 75; Temp 98.1 Oral; RR 18; SpO2 96% room air. Echocardiogram Results 06/19/2018: Mild concentric left ventricular hypertrophy. Overall left ventricular systolic function is mildly impaired with, an EF between 45-50%. Left atrium is markedly dilated. Mild tricuspid regurgitation present. Mild to moderate pulmonary hypertension. Treatment: 06/11 Lasix 40mg PO BID; Lopressor 100mg PEG G Tube BID; In your professional opinion, can you please clarify the [acuity and type] of CHF if known? [ ] Chronic Systolic Heart Failure (reduced EF) [ ] Chronic Diastolic Heart Failure (preserved EF) [ ] Chronic Systolic & Diastolic Heart Failure [ ] Other, please specify [ ] Unable to determine (Template Last Revised: March 2020) MTDD
--- NOTE | 2020-06-14 15:45 | CDI ---
Documentation Clarification Form Date: 06/14/2020 03:28:16 PM From: Candice Diaz RN CCDS Admit Date: 06/11/2020 01:13:00 PM Patient Name: Ariane Eric Visit Number: [id number] Discharge Date: ATTENTION: The Clinical Documentation Specialists (CDI) and [facility] Coding Staff appreciate your assistance in clarifying documentation. Please respond to the clarification below the line at the bottom and electronically sign. The CDI & [facility] Coding staff will review the response and follow-up if needed. Please note: Queries are made part of the Legal Health Record. If you have any questions, please contact the author of this message via ITS. Dr. Luis A Aguilar, Right Buttock pressure ulcer is documented Nursing staff, in Nursing wound assessment 06/11. Based on this information and the findings below, is there an additional diagnosis that is clinically appropriate for this patient? History/Risk Factors: 75-year-old female presents to the ED for feeling the need to urinate but unable to. Medical History: DM2, Dementia, Incontinence of bladder and bowel, CVA with left sided weakness, hemiplegia, and hemiparesis. ED note 06/11 Clinical Indicators: Location: Right Buttock Wound description: Open area to right buttock. Nursing Integumentary assessment 06/11 Treatment: 06/11 Turn 2 Q; 06/12 Zinc paste Is there an additional diagnosis that is clinically appropriate for this patient? [ ] Right Buttock Pressure Ulcer Stage 2 POA [ ] Other condition, please specify [ ] Unable to determine Clinical Definitions: Stage 1 Pressure Ulcer: intact skin, non-blanching redness of local area Stage 2 Pressure Ulcer: Partial thickness, loss of dermis, pink wound bed Stage 3 Pressure Ulcer: Full thickness tissue loss Stage 4 Pressure Ulcer: Full thickness tissue loss with exposed bone, tendon, or muscle. Unstageable pressure ulcer: Full thickness tissue loss in which the base of the ulcer is covered by slough (yellow, beaulieu, paiz, green or brown) and/or eschar (beaulieu, brown or black) in the wound bed. (Template Last Revised: April 2020) NAVNEET
[2020-06-14] MEDS: FERROUS SULFATE ORAL ELIXIR 300 MG/5 ML CUP PEG/G-TUBE SCH (16:11)
[2020-06-14] MEDS: MULTIVITAMINS, THERA LIQUID 237 ML BOTTLE PO SCH (16:11)
[2020-06-14] MEDS: LORATADINE 10 MG TAB PEG/G-TUBE SCH (16:12)
--- NOTE | 2020-06-14 16:53 | PN ---
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 Started on [address] Chavira; Rocephin IV and oral medications. Possible discharge home. Feeding tube has been fixed and increased feedings. PSYCH: Flat mood and affect. CARDIOVASCULAR: S1, S2. LUNGS: Clear. GI: Soft. ASSESSMENT: 1. PEG tube malfunction. 2. Urinary tract infection. 3. Wound infection around PEG tube. PLAN: Continue antibiotics. Rocephin switched to apparently Cipro on discharge. Possible discharge home, back to the rehab center soon. She had ascites, treating with Rocephin. Will switch it to oral Ceftin on discharge. Prognosis guarded. MMODL / IJN: [id number] /
--- NOTE | 2020-06-14 17:31 | PN ---
PROGRESS NOTE ADDENDUM TO PROGRESS NOTE: Chronic systolic and diastolic heart failure. MMODL / IJN: [id number] /
--- NOTE | 2020-06-14 17:34 | PN ---
PROGRESS NOTE ADDENDUM TO PROGRESS NOTE: Right buttock pressure ulcer, stage II. MMODL / IJN: [id number] /
[2020-06-14 17:44] LABS: Glucose,Whole Blood 169 mg/dL (75-99)
[2020-06-14] MEDS: CEFDINIR 300 MG CAP PO SCH (21:43)
[2020-06-14] MEDS: INSULIN DETEMIR (LEVEMIR) 100 UNIT/ML SYR SQ SCH (21:50)
[2020-06-15 00:19] LABS: Glucose,Whole Blood 194 mg/dL (75-99)
[2020-06-15] MEDS: GABAPENTIN 100 MG CAP PEG/G-TUBE SCH ×2 (05:35→13:21)
[2020-06-15] MEDS: DILTIAZEM ORAL 30 MG TAB PEG/G-TUBE SCH ×2 (05:35→13:00)
[2020-06-15] MEDS: hydrOXYzine HCL 25 MG TAB PEG/G-TUBE SCH ×2 (05:35→13:00)
[2020-06-15] MEDS: SODIUM CHLORIDE 0.9% 1,000 ML IV SCH ×2 (05:36→08:50)
[2020-06-15 06:42] LABS: Glucose,Whole Blood 162 mg/dL (75-99)
[2020-06-15] MEDS: PANTOPRAZOLE 40 MG/10 ML VIAL IV SCH (08:32)
[2020-06-15] MEDS: CHOLESTYRAMINE (WITH SUGAR) 4 GM PACKET PEG/G-TUBE SCH (08:32)
[2020-06-15] MEDS: METOPROLOL TARTRATE 50 MG TAB PEG/G-TUBE SCH ×2 (08:33→18:44)
[2020-06-15] MEDS: CEFDINIR 300 MG CAP PO SCH (08:33)
[2020-06-15] MEDS: ASPIRIN 81 MG PEG/G-TUBE SCH (08:33)
[2020-06-15] MEDS: FUROSEMIDE 40 MG TAB PO SCH ×2 (08:33→18:44)
[2020-06-15] MEDS: APIXABAN 2.5 MG TABLET PEG/G-TUBE SCH ×2 (08:34→18:44)
[2020-06-15] MEDS: HYDROPHILIC CREAM 180 GM TUBE TOPICAL SCH (08:35)
[2020-06-15] MEDS ORDERED: VANCOMYCIN IV PER PHARMACY 1 EACH MISC MISCELLANE PRN (10:10)
--- NOTE | 2020-06-15 10:24 | XR ---
EXAMINATION TYPE: XR abdomen 1V DATE OF EXAM: 06/15/2020 10:08 AM CLINICAL HISTORY: Increased abdominal girth, PEG tube. TECHNIQUE: Supine images of the abdomen and pelvis were obtained COMPARISON: CT abdomen pelvis 06/11/2020. FINDINGS: Gastrostomy tube overlies the left upper quadrant with the balloon over the gastric bubble. Nonspecific bowel gas pattern. Degenerative changes of the spine. Pelvic phleboliths. Epicardial pac er leads seen overlying the left lung base. IMPRESSION: 1. Gastrostomy tube overlies the projected region of the stomach. 2. Nonspecific bowel gas pattern.
[2020-06-15] MEDS ORDERED: VANCOMYCIN 1,500 MG in SODIUM CHLORIDE 0.9% 250 ML IVPB SCH ×2 (11:00→19:00)
--- NOTE | 2020-06-15 11:19 | PN ---
PROGRESS NOTE DATE OF SERVICE: 06/15/2020 REASON FOR FOLLOWUP: UTI and PEG tube site cellulitis. INTERVAL HISTORY: The patient is currently afebrile. The patient is currently sleepy, lethargic and did not provide any history. The patient is currently tolerating her tube feeds and no diarrhea or has been reported by nursing staff. Patient did not provide any history. PHYSICAL EXAMINATION: Her blood pressure is 160/80 with a pulse of 79, temperature 98.9. She is 95% on room air. General description is an elderly female lying in bed in no distress. RESPIRATORY SYSTEM: Unlabored breathing, clear to auscultation anteriorly. HEART: S1, S2. Regular rate and rhythm. ABDOMEN: Soft, noticed to be distended. No guarding or rigidity. A PEG tube site with no significant drainage. LABS: No new labs been obtained today. Sensitivity on the MRSA is still pending from the PEG tube site. DIAGNOSTIC IMPRESSION AND PLAN: Patient admitted to the hospital with urinary tract infection and concern for the PEG tube site cellulitis and malfunction, tube is functioning so far. However, she was noted to have abdominal distention for which we will obtain acute abdominal series. May need to do a CT if any abnormality was noticed or distention persists. The sensitivity on the MRSA is pending to determine if she may need oral, for now will cover with the vancomycin and will monitor clinical course closely. MMODL / IJN: [id number] /
[2020-06-15 11:23] LABS: African American GFR (CKD) >90 (>60 ml/min/1.73 sqM); Non-African American GFR(CKD) >90 (>60 ml/min/1.73 sqM)
[2020-06-15] MEDS: levETIRAcetam ORAL SOLN 500 MG/5 ML CUP PEG/G-TUBE SCH (12:20)
[2020-06-15 12:25] LABS: Glucose,Whole Blood 132 mg/dL (75-99)
[2020-06-15 14:12] VITALS: BP 158/86; PULSE 63; RESP 18; TEMP 99.6
--- NOTE | 2020-06-15 18:59 | DS ---
DISCHARGE SUMMARY DISCHARGE MEDICATIONS: 1. Claritin 10 mg per the PEG tube daily. 2. Feosol liquid 300 mg daily. 3. Lasix 40 mg b.i.d. 4. Neurontin 100 mg t.i.d. 5. Triad cream topically daily. 6. Ceftin 500 b.i.d. for 7 days. 7. Atarax 25 mg per the PEG tube t.i.d. 8. Cholestyramine 4 mg per PEG tube daily. 9. Doxycycline 100 mg b.i.d. for 10 days. 10.Pravachol 40 mg per PEG tube daily. 11.Keppra 100 mg PEG tube daily. 12.Lopressor 100 mg per PEG tube b.i.d. 13.Aspirin 81 mg daily. 14.Dulcolax 10 mg rectal suppository p.r.n. 15.Cardizem 30 mg per PEG tube t.i.d. 16.Tylenol 650 per PEG tube every 6 hours. 17.Eliquis 2.5 per PEG tube b.i.d. 18.Multivitamin 5 mL via PEG tube daily. 19.Milk of Magnesia 7200 mg per PEG tube daily. 20.Levemir 48 units subcutaneously daily. 21.MetroCream topically daily. 22.Fleet enema rectally daily p.r.n. 23.Glucerna Shake 474 mL per PEG tube t.i.d. 24.DuoNeb q.6 hours. CONDITION: Stable. PROGNOSIS: Guarded. Ambulate as tolerated. The patient came in with generalized weakness, history of PEG tube dysfunction with PEG tube infection and malfunction, urinary tract infection, treated with broad- spectrum antibiotics with IV switched to orals x2 on discharge. GI saw her for PEG tube malfunction, rearranged the PEG tube and restarted home PEG tube feeding. She will continue with her same PEG tube feeding she was on at [facility] before she came. Medications switched around. She will finish up two antibiotics for 7-10 days. Follow up with Dr. Luis A Gomez at the care home. MMODL / PETERN: [id number] /
== END 2020-06-15 19:23 | DRG 872 ==
LOC: EC 10:22 → 6NMEDSUR 13:13 → 4SSUR 13:52 → 5NMEDONC 15:25
PROVIDERS: ADMIT Family Medicine; ATTEND Family Medicine
DX: A41.9 Sepsis, unspecified organism (principal); I69.354 Hemiplegia and hemiparesis following cerebral infarction affecting left non-dominant side; I50.42 Chronic combined systolic (congestive) and diastolic (congestive) heart failure; I48.92 Unspecified atrial flutter; K94.22 Gastrostomy infection; K94.23 Gastrostomy malfunction; L03.311 Cellulitis of abdominal wall; N39.0 Urinary tract infection, site not specified; B96.4 Proteus (mirabilis) (morganii) as the cause of diseases classified elsewhere; E11.9 Type 2 diabetes mellitus without complications; E78.5 Hyperlipidemia, unspecified; F03.90 Unspecified dementia, unspecified severity, without behavioral disturbance, psychotic disturbance, mood disturbance, and anxiety; I69.391 Dysphagia following cerebral infarction; R13.10 Dysphagia, unspecified; Z87.891 Personal history of nicotine dependence; I11.0 Hypertensive heart disease with heart failure; I25.10 Atherosclerotic heart disease of native coronary artery without angina pectoris; I48.91 Unspecified atrial fibrillation; J45.909 Unspecified asthma, uncomplicated; Z79.01 Long term (current) use of anticoagulants; L89.312 Pressure ulcer of right buttock, stage 2; Z79.4 Long term (current) use of insulin; Z79.82 Long term (current) use of aspirin; Z20.822 Contact with and (suspected) exposure to COVID-19; G43.909 Migraine, unspecified, not intractable, without status migrainosus; Z80.0 Family history of malignant neoplasm of digestive organs; F32.9 Major depressive disorder, single episode, unspecified; G47.30 Sleep apnea, unspecified; Z82.3 Family history of stroke; R32 Unspecified urinary incontinence; R15.9 Full incontinence of feces; Z85.3 Personal history of malignant neoplasm of breast; Z90.710 Acquired absence of both cervix and uterus; Z95.0 Presence of cardiac pacemaker; Z95.2 Presence of prosthetic heart valve; Z95.5 Presence of coronary angioplasty implant and graft; Z98.42 Cataract extraction status, left eye; Z98.41 Cataract extraction status, right eye; Z96.1 Presence of intraocular lens; Z99.81 Dependence on supplemental oxygen; Z80.9 Family history of malignant neoplasm, unspecified; Z87.440 Personal history of urinary (tract) infections; Z87.01 Personal history of pneumonia (recurrent); Z88.1 Allergy status to other antibiotic agents; Z90.89 Acquired absence of other organs; Z87.19 Personal history of other diseases of the digestive system
CPT/HCPCS: 36415; 51798; 74018; 74177; 80053; 81001; 82150; 82565; 83690; 85025; 85610; 85730; 87070; 87077; 87086; 87186; 87205; 87635; 87636; 93005; 96361; 96374; 99285

== ENCOUNTER 2020-06-24 04:52 | Inpatient (IN) | payer MEDICARE, OTHER ==
[2020-06-24] MEDS ORDERED: DILTIAZEM DRIP BOLUS FROM BAG 1 MG SOLN IV ONE (05:21)
--- NOTE | 2020-06-24 05:21 | ED ---
General Adult HPI - General Chief complaint: Recheck/Abnormal Lab/Rx Stated complaint: Afib Time Seen by Provider: 06/24/20 05:09 Source: patient, EMS Mode of arrival: EMS Limitations: altered mental status (Patient is aphasic) - History of Present Illness Initial comments: This patient is 75-year-old woman who is reportedly aphasic, sent here to have e valuation after routine vital signs were found to have heart rate in the upper 130s. Patient does have history of atrial fibrillation. She is not able to give any history. Onset/Timin -: hour(s) Location: chest - Related Data Home Medications Medication Instructions Recorded Confirmed Pravastatin Sodium [Pravachol] 40 mg PEG/G-TUBE HS@2100 05/20/17 06/24/20 levETIRAcetam [Keppra Oral 100 mg PEG/G-TUBE DAILY@0800 09/27/17 06/24/20 Solution] Aspirin 81 mg PEG/G-TUBE DAILY@0800 05/30/18 06/24/20 Metoprolol Tartrate [Lopressor] 100 mg PEG/G-TUBE BID@0800,1700 05/30/18 Acetaminophen Oral Susp [Tylenol] 650 mg PEG/G-TUBE Q6H PRN 12/25/19 06/24/20 Diltiazem Oral [Cardizem*] 30 mg PEG/G-TUBE TID@0600,1400,2200 12/25/19 06/24/20 Magnesium Hydroxide [Milk of 7,200 mg PEG/G-TUBE DAILY PRN 12/25/19 06/24/20 Magnesia Concentrate] Multivitamins, Thera Liquid 5 ml PEG/G-TUBE DAILY@1700 12/25/19 06/24/20 [Theragran Liquid (formulary)] bisacodyL [Dulcolax] 10 mg RECTAL DAILY PRN 12/25/19 06/24/20 Ipratropium-Albuterol Nebulize 3 ml INHALATION RT-Q6H PRN 06/11/20 06/24/20 [Duoneb 0.5 mg-3 mg/3 ml Soln] Na Phos,M-B/Na Phos,Di-Ba [Fleet 133 ml RECTAL DAILY PRN 06/11/20 06/24/20 Adult] Ferrous Sulfate Oral Elixir 220 mg PO DAILY@1700 06/24/20 06/24/20 [Feosol Liquid] Furosemide [Lasix] 40 mg PEG/G-TUBE BID@0800,1700 06/24/20 06/24/20 Gabapentin Oral Soln [Neurontin 500 mg PEG/G-TUBE 06/24/20 06/24/20 Oral Soln] TID@0600,1400,2100 Hydrophilic Cream [Triad Cream] 1 applic TOPICAL HS 06/24/20 06/24/20 INSULIN ASPART (NovoLOG) [NovoLOG See Protocol SQ ACHS 06/24/20 06/24/20 (formulary)] Insulin Detemir (Levemir) [Levemir] 48 unit SQ HS@2130 06/24/20 06/24/20 Liquacel 30 ml PEG/G-TUBE DAILY@0800 06/24/20 06/24/20 metFORMIN HCL [Glucophage] 500 mg PEG/G-TUBE BID@0800,1700 06/24/20 06/24/20 Previous Rx's Medication Instructions Recorded metroNIDAZOLE 0.75% CREAM 1 applic TOPICAL DAILY applic 03/14/20 [Metrocream] Cholestyramine (with Sugar) 4 gm PEG/G-TUBE DAILY@0800 packet 06/14/20 [Questran Packet] Loratadine [Claritin] 10 mg PEG/G-TUBE DAILY@1700 tab 06/14/20 hydrOXYzine HCL [Atarax] 25 mg PEG/G-TUBE 06/14/20 TID@0600,1400,2200 tab Allergies Allergy/AdvReac Type Severity Reaction Status Date / Time ciprofloxacin [From Cipro] Allergy Rash/Hives Verified 06/24/20 07:21 ciprofloxacin HCl Allergy Rash/Hives Verified 06/24/20 07:21 [From Cipro] Quinolones Allergy Unknown Verified 06/24/20 07:21 Review of Systems ROS Statement: Those systems with pertinent positive or pertinent negative responses have been documented in the HPI. ROS Other: All systems not noted in ROS Statement are negative. Limitations: ROS unobtainable due to patients medical condition Constitutional: Denies: fever Respiratory: Denies: cough Cardiovascular: Reports: as per HPI, palpitations Gastrointestinal: Denies: vomiting Past Medical History Past Medical History: Atrial Fibrillation, Atrial Flutter, Asthma, Cancer, Heart Failure, CVA/TIA, Dementia, Diabetes Mellitus, GERD/Reflux, GI Bleed, Hyperlipidemia, Hypertension, Pneumonia, Sleep Apnea/CPAP/BIPAP Additional Past Medical History / Comment(s): [facility]t son Jose Rafael being unsure of history. Jose Rafael states he is also pt's DPOA. 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, post traumatic seizures, History of Any Multi-Drug Resistant Organisms: MRSA Date of last positivie culture/infection: 06/11/20 MDRO Source:: MRSA PEG TUBE SITE Past Surgical History: Breast Surgery, Cardiac Valve Replacement, Heart Cathete rization With Stent, Hysterectomy, Orthopedic Surgery, Pacemaker, Tonsillectomy Additional Past Surgical History / Comment(s): Peg tube, mechanical mitral valve 2000, polypectomy spinal cord/cyst removed, TEEs, CVNs, colonoscopies, bilateral cataract removal/lens implants, L rotator cuff repair, R femur fracture with IM hip/screw/nail, L breast lumpectomy, Past Anesthesia/Blood Transfusion Reactions: No Reported Reaction Date of Last Stent Placement:: 2006 Type of Cardiac Device: Permanent Pacemaker Device Placement Date:: 2009 Past Psychological History: Depression Smoking Status: Unknown if ever smoked Past Alcohol Use History: Unable to Obtain Past Drug Use History: Unable to Obtain - Past Family History Father Family Medical History: GI Bleed Additional Family Medical History / Comment(s): OF BLEEDING ULCER AT AGE 64 Mother Family Medical History: Cancer, CVA/TIA Additional Family Medical History / Comment(s): HX STROKES, COLON CANCER General Exam Limitations: altered mental status General appearance: obtunded Head exam: Present: atraumatic Eye exam: Present: PERRL. Absent: scleral icterus, conjunctival injection ENT exam: Present: mucous membranes dry Neck exam: Present: normal inspection Respiratory exam: Present: normal lung sounds bilaterally. Absent: respiratory distress, wheezes, rales, rhonchi, stridor Cardiovascular Exam: Present: tachycardia, irregular rhythm, systolic murmur. Absent: diastolic murmur, rubs, gallop GI/Abdominal exam: Present: soft, other (PEG tube present). Absent: tenderness, guarding, rebound Extremities exam: Present: other Neurological exam: Present: altered, motor sensory deficit Skin exam: Present: warm, dry, intact, normal color. Absent: rash Course Vital Signs 06/24/20 06/24/20 06/24/20 04:54 05:39 06:47 Temperature 99.2 F 99 F Pulse Rate 138 H 97 102 H Respiratory 16 18 18 Rate Blood Pressure 157/65 127/74 O2 Sat by Pulse 95 94 L 96 Oximetry EKG Findings - EKG Results: EKG: interpreted by KALYANI, normal axis, normal QRS EKG shows: atrial fibrillation (with rate approximately 140 bpm) - Blocks, [place], Hypertrophy, ST Abn: Repolarization changes or abnormalities: ST suggestive of injury (V4,5,6 ST depressions) Medical Decision Making - Lab Data Result diagrams: 06/27/20 07:24 06/27/20 07:24 Lab Results 06/24/20 06/24/20 06/24/20 Range/Units 05:14 05:14 05:14 WBC 15.3 H (3.8-10.6) k/uL RBC 5.44 H (3.80-5.40) m/uL Hgb 13.1 (11.4-16.0) gm/dL Hct 42.2 (34.0-46.0) % MCV 77.5 L (80.0-100.0) fL MCH 24.0 L (25.0-35.0) pg MCHC 30.9 L (31.0-37.0) g/dL RDW 19.7 H (11.5-15.5) % Plt Count 366 (150-450) k/uL MPV 8.8 Neutrophils % 79 % Lymphocytes % 13 % Monocytes % 6 % Eosinophils % 0 % Basophils % 1 % Neutrophils # 12.1 H (1.3-7.7) k/uL Lymphocytes # 2.0 (1.0-4.8) k/uL Monocytes # 0.9 (0-1.0) k/uL Eosinophils # 0.0 (0-0.7) k/uL Basophils # 0.1 (0-0.2) k/uL Hypochromasia Marked Anisocytosis Slight Microcytosis Slight PT 10.9 (9.0-12.0) sec INR 1.0 (<1.2) APTT 19.0 L (22.0-30.0) sec Sodium 145 (137-145) mmol/L Potassium 4.7 (3.5-5.1) mmol/L Chloride 105 (98-107) mmol/L Carbon Dioxide 30 (22-30) mmol/L Anion Gap 10 mmol/L BUN 52 H (7-17) mg/dL Creatinine 0.57 (0.52-1.04) mg/dL Est GFR (CKD-EPI)AfAm >90 (>60 ml/min/1.73 sqM) Est GFR (CKD-EPI)NonAf >90 (>60 ml/min/1.73 sqM) Glucose 327 H (74-99) mg/dL Calcium 10.1 (8.4-10.2) mg/dL Magnesium 2.3 (1.6-2.3) mg/dL Total Bilirubin 0.5 (0.2-1.3) mg/dL AST 48 H (14-36) U/L ALT 36 H (4-34) U/L Alkaline Phosphatase 152 H (38-126) U/L Troponin I (0.000-0.034) ng/mL Total Protein 7.4 (6.3-8.2) g/dL Albumin 3.7 (3.5-5.0) g/dL TSH 0.846 (0.465-4.680) mIU/L 06/24/20 Range/Units 05:14 WBC (3.8-10.6) k/uL RBC (3.80-5.40) m/uL Hgb (11.4-16.0) gm/dL Hct (34.0-46.0) % MCV (80.0-100.0) fL MCH (25.0-35.0) pg MCHC (31.0-37.0) g/dL RDW (11.5-15.5) % Plt Count (150-450) k/uL MPV Neutrophils % % Lymphocytes % % Monocytes % % Eosinophils % % Basophils % % Neutrophils # (1.3-7.7) k/uL Lymphocytes # (1.0-4.8) k/uL Monocytes # (0-1.0) k/uL Eosinophils # (0-0.7) k/uL Basophils # (0-0.2) k/uL Hypochromasia Anisocytosis Microcytosis PT (9.0-12.0) sec INR (<1.2) APTT (22.0-30.0) sec Sodium (137-145) mmol/L Potassium (3.5-5.1) mmol/L Chloride (98-107) mmol/L Carbon Dioxide (22-30) mmol/L Anion Gap mmol/L BUN (7-17) mg/dL Creatinine (0.52-1.04) mg/dL Est GFR (CKD-EPI)AfAm (>60 ml/min/1.73 sqM) Est GFR (CKD-EPI)NonAf (>60 ml/min/1.73 sqM) Glucose (74-99) mg/dL Calcium (8.4-10.2) mg/dL Magnesium (1.6-2.3) mg/dL Total Bilirubin (0.2-1.3) mg/dL AST (14-36) U/L ALT (4-34) U/L Alkaline Phosphatase (38-126) U/L Troponin I 0.049 H* (0.000-0.034) ng/mL Total Protein (6.3-8.2) g/dL Albumin (3.5-5.0) g/dL TSH (0.465-4.680) mIU/L Disposition Clinical Impression: Atrial fibrillation with RVR Disposition: ADMITTED IP TO THIS HOSP Condition: Poor
[2020-06-24 05:36] LABS: Anisocytosis Slight; Basophils # (A) 0.1 k/uL (0-0.2); Basophils % (A) 1 %; Eosinophils % (A) 0 %; HCT 42.2 % (34.0-46.0); HGB 13.1 gm/dL (11.4-16.0); Hypochromasia Marked; Lymphocytes % (A) 13 %; MCHC 30.9 g/dL (31.0-37.0); MCV 77.5 fL (80.0-100.0); Mean Platelet Volume 8.8; Microcytosis Slight; Monocytes # (A) 0.9 k/uL (0-1.0); Monocytes % (A) 6 %; Neutrophils # (A) 12.1 k/uL (1.3-7.7); Neutrophils % (A) 79 %; Platelet Count 366 k/uL (150-450); RBC 5.44 m/uL (3.80-5.40); RDW 19.7 % (11.5-15.5); WBC 15.3 k/uL (3.8-10.6)
[2020-06-24] MEDS: DILTIAZEM 125 MG in SODIUM CHLORIDE 0.9% 100 ML IV SCH (05:36)
--- NOTE | 2020-06-24 05:40 | XR ---
EXAM: XR Chest, 1 View CLINICAL HISTORY: ITS.REASON XR Reason: dysrhythmia TECHNIQUE: Frontal view of the chest. COMPARISON: Chest radiograph March 07, 2020. FINDINGS/IMPRESSION: Small left pleural effusion. Mild patchy perihilar opacities, correlate for vascular congestion versus mild infiltrates. This preferentially located in the retrocardiac region. No pneumothorax. Cardiomegaly. Calcified aorta. Sternotomy wires. Dual lead pacemaker. Left axillary clips.
[2020-06-24 05:43] LABS: ALT 36 U/L (4-34); AST 48 U/L (14-36); African American GFR (CKD) >90 (>60 ml/min/1.73 sqM); Albumin 3.7 g/dL (3.5-5.0); Alkaline Phosphatase 152 U/L (38-126); Anion Gap 10 mmol/L; Blood Urea Nitrogen 52 mg/dL (7-17); Calcium 10.1 mg/dL (8.4-10.2); Carbon Dioxide 30 mmol/L (22-30); Chloride 105 mmol/L (98-107); Glucose 327 mg/dL (74-99); Magnesium 2.3 mg/dL (1.6-2.3); Non-African American GFR(CKD) >90 (>60 ml/min/1.73 sqM); Potassium 4.7 mmol/L (3.5-5.1); Sodium 145 mmol/L (137-145); Total Bilirubin 0.5 mg/dL (0.2-1.3); Total Protein 7.4 g/dL (6.3-8.2)
[2020-06-24 05:50] LABS: Prothrombin Time 10.9 sec (9.0-12.0)
[2020-06-24] MEDS ORDERED: NITROGLYCERIN SL TABS 0.4 MG TAB SUBLINGUAL PRN (07:00)
[2020-06-24] MEDS ORDERED: MAGNESIUM HYDROXIDE 2,400 MG/10 ML CUP PEG/G-TUBE PRN (07:03)
[2020-06-24] MEDS ORDERED: IPRATROPIUM-ALBUTEROL 3 ML NEB INHALATION PRN (07:03)
[2020-06-24] MEDS ORDERED: NA PHOS,M-B/NA PHOS,DI-BA 133 ML ENEMA RECTAL PRN (07:03)
[2020-06-24] MEDS ORDERED: METOPROLOL TARTRATE 50 MG TAB PEG/G-TUBE SCH (08:00)
[2020-06-24 08:27] LABS: Glucose,Whole Blood 228 mg/dL (75-99)
[2020-06-24] MEDS ORDERED: NON FORMULARY DRUG (Glucerna Shake 1 CAN Liquid) PEG/G-TUBE SCH (09:00)
[2020-06-24] MEDS: INSULIN ASPART (NovoLOG) 100 UNIT/ML VIAL SQ SCH ×4 (11:04→21:00)
--- NOTE | 2020-06-24 11:08 | ECHOF ---
Referral Reason:elevated troponin MEASUREMENTS -------- HEIGHT: 167.6 cm WEIGHT: 85.3 kg BP: RVIDd: 2.7 cm (< 3.3) IVSd: 1.5 cm (0.6 - 1.1) LVIDd: 3.3 cm (3.9 - 5.3) LVPWd: 1.5 cm (0.6 - 1.1) IVSs: 1.7 cm LVIDs: 2.2 cm LVPWs: 1.7 cm Ao Diam: 2.7 cm (2.0 - 3.7) AV Cusp: 1.8 cm (1.5 - 2.6) LA Diam: 5.0 cm (2.7 - 3.8) RAP: 5.00 mmHg RVSP: 37.87 mmHg FINDINGS -------- Atrial fibrillation. Pacerwire seen in RV and RA. This was a technically difficult study with suboptimal views. The left ventricular size is normal. There is moderate concentric left ventricular hypertrophy. O verall left ventricular systolic function is normal with, an EF between 55 - 60 %. There is paradox ical/dysynergic septal motion consistent with post-operative status. The right ventricle is normal in size. The left atrium is moderately dilated. The right atrial size is normal. Lumason used The aortic valve is trileaflet and appears structurally normal. The mitral valve is normal. There is mild regurgitation of the bioprosthetic mitral valve. Mechan ical MVR is well seated. The tricuspid valve appears structurally normal. Mild tricuspid regurgitation present. There is m ild pulmonary hypertension. The right ventricular systolic pressure, as measured by Doppler, is 37. 87mmHg. There is no pulmonic regurgitation present. The aortic root size is normal. IVC Not well visulized. There is a small, generalized pericardial effusion present. CONCLUSIONS -------- 1. Pacerwire seen in RV and RA. 2. The left ventricular size is normal. 3. There is moderate concentric left ventricular hypertrophy. 4. Overall left ventricular systolic function is normal with, an EF between 55 - 60 %. 5. There is paradoxical/dysynergic septal motion consistent with post-operative status. 6. There is mild regurgitation of the bioprosthetic mitral valve. 7. Mechanical MVR is well seated. 8. Mild tricuspid regurgitation present. 9. There is mild pulmonary hypertension. 10. The right ventricular systolic pressure, as measured by Doppler, is 37.87mmHg. 11. There is a small, generalized pericardial effusion present. RETAIL SALESWORKER: Lilo Styles RDCS
[2020-06-24 12:06] LABS: Glucose,Whole Blood 238 mg/dL (75-99)
[2020-06-24 12:55] VITALS: BMI 30.4
[2020-06-24] MEDS: levETIRAcetam ORAL SOLN 500 MG/5 ML CUP PEG/G-TUBE SCH (13:26)
[2020-06-24] MEDS: FUROSEMIDE 40 MG TAB PO SCH ×2 (13:26→17:37)
[2020-06-24] MEDS: APIXABAN 2.5 MG TABLET PEG/G-TUBE SCH ×2 (13:26→17:36)
[2020-06-24] MEDS: CHOLESTYRAMINE (WITH SUGAR) 4 GM PACKET PEG/G-TUBE SCH (13:26)
[2020-06-24] MEDS: METOPROLOL TARTRATE 50 MG TAB PEG/G-TUBE SCH ×2 (13:26→20:59)
[2020-06-24] MEDS: SODIUM CHLORIDE 0.9% 1,000 ML IV SCH ×2 (13:28→14:30)
[2020-06-24] MEDS ORDERED: DILTIAZEM ORAL 30 MG TAB PEG/G-TUBE SCH (14:00)
[2020-06-24] MEDS ORDERED: GABAPENTIN 100 MG CAP PEG/G-TUBE SCH (14:00)
--- NOTE | 2020-06-24 14:22 | P.CRDCN ---
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 She used to follow with Dr. Craig, has not been seen in the office since March 2017. We have been asked to see in consultation for atrial fibrillation with RVR. Patient sent from [facility] care facility after finding the patient's heart rate in the 130s. Patient is seen and examined at bedside, no acute distress. Patient is a poor historian, She is nonverbal. EKG revealed atrial fibrillation HR 140s. Patient given cardizem 10mg Bolus, then started on cardizem drip 5mg Hr. Laboratory data reviewed, Troponin 0.049-->0.53-->0.53, WBC 15.3, hemoglobin 13.1, platelets 366, sodium 145, potassium 4.7, serum creatinine 0.57, TSH within normal limits, COVID-19 negati ve, AST 48, ALT 36, Alk Phos 152. Chest xray revealed dual-lead pacemaker, mild patchy opacities vascular congestion vs infilatrates mild. Current home cardiac medications include Cardizem 30mg TID, metoprolol titrate 100 mg twice daily, Lasix 40 mg twice a day, Eliquis 2.5 mg twice a day, pravastatin 40 mg nightly, aspirin 81 mg daily. Cardiac catheterizastion in 12/2000- revealed normal coronary arteries Echocardiogram today revealed EF 55-60%, pacewire seen in RV and RA, Mechanical mitral valve is well seated, mild mitral regurgitation, mild pulmonary hypertension RVSP 38mmHg, small generalized pericardial effusion present. Telemetry reviewed patient in atrial fibrillation heart rate 90-115. REVIEW OF SYSTEMS At the time of my exam: Patient is non-verbal unable to give accurate review of systems PHYSICAL EXAMINATION CONSTITUTIONAL: No apparent distress. HEENT: Head is normocephalic. Pupils are equal, round. Sclerae anicteric. Mucous membranes of the mouth are moist. No JVD. No carotid bruit. CHEST EXAMINATION: Lungs are clear to auscultation. No chest wall tenderness is noted on palpation or with deep breathing. HEART EXAMINATION: Irregular rate and rhythm. S1, S2 heard. mitral click heard. No murmurs, gallops or rub. ABDOMEN: Soft, nontender. Positive bowel sounds. EXTREMITIES: 2+ peripheral pulses, no lower extremity edema and no calf tenderness. NEUROLOGIC EXAMINATION: Patient is awake ,nonverbal, not oriented. ASSESSMENT Paroxysmal atrial fibrillation (on Eliquis) - [id number] score 6 Elevated troponin, most likely due to a fib with RVR. Rheumatic mitral stenosis status post mechanical mitral valve replacement in 2000. Patient was on coumadin, however she is now on Eliquis, Unsure of when this was changed or why. Sick sinus syndrome status post pacemaker History of stroke (with left sided paralysis) Dysphagia s/p PEG tube placement Chronic respiratory failure s/p tracheostomy tube PLAN -Will continue cardizem drip 5mg/hr for today, transition to PO Cardizem tomorrow morning and discontinue drip -Increase metoprolol to 100mg TID -Continue Eliquis. However, patient should be on coumadin due to having a mechanical valve, chart review indicate she was on coumadin, this was transitioned to eliquis. Per primary notes patient has a history of chronic blood loss anemia and hemiplegia, hemiparesis s/p subarahnoid hemorrhage. -Further recommendations based on clinical course. Nurse Practitioner note has been reviewed, I agree with a documented findings and plan of care. Patient was seen and examined. Past Medical History Past Medical History: Atrial Fibrillation, Atrial Flutter, Asthma, Cancer, Heart Failure, CVA/TIA, Dementia, Diabetes Mellitus, GERD/Reflux, GI Bleed, Hyperlipidemia, Hypertension, Pneumonia, Sleep Apnea/CPAP/BIPAP Additional Past Medical History / Comment(s): Verified with [employer] papers r/t son Jose Rafael being unsure of history. Jose Rafael states he is also pt's DPOA. 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, post traumatic seizures, History of Any Multi-Drug Resistant Organisms: MRSA Date of last positivie culture/infection: 06/11/20 MDRO Source:: MRSA PEG TUBE SITE Past Surgical History: Breast Surgery, Cardiac Valve Replacement, Heart Catheterization With Stent, Hysterectomy, Orthopedic Surgery, Pacemaker, Tonsillectomy Additional Past Surgical History / Comment(s): Peg tube, mechanical mitral valve 2000, polypectomy spinal cord/cyst removed, TEEs, CVNs, colonoscopies, bilateral cataract removal/lens implants, L rotator cuff repair, R femur fracture with IM hip/screw/nail, L breast lumpectomy, Past Anesthesia/Blood Transfusion Reactions: No Reported Reaction Date of Last Stent Placement:: 2006 Type of Cardiac Device: Permanent Pacemaker Device Placement Date:: 2009 Past Psychological History: Depression Smoking Status: Unknown if ever smoked Past Alcohol Use History: Unable to Obtain Past Drug Use History: Unable to Obtain - Past Family History Father Family Medical History: GI Bleed Additional Family Medical History / Comment(s): OF BLEEDING ULCER AT AGE 64 Mother Family Medical History: Cancer, CVA/TIA Additional Family Medical History / Comment(s): HX STROKES, COLON CANCER Medications and Allergies Home Medications Medication Instructions Recorded Confirmed Type Pravastatin Sodium [Pravachol] 40 mg PEG/G-TUBE HS@2100 05/20/17 06/24/20 H istory levETIRAcetam [Keppra Oral 100 mg PEG/G-TUBE DAILY@0800 09/27/17 06/24/20 History Solution] Aspirin 81 mg PEG/G-TUBE DAILY@0800 05/30/18 06/24/20 History Metoprolol Tartrate [Lopressor] 100 mg PEG/G-TUBE BID@0800,1700 05/30/18 06/24/20 History Acetaminophen Oral Susp [Tylenol] 650 mg PEG/G-TUBE Q6H PRN 12/25/19 06/24/20 History Apixaban [Eliquis] 2.5 mg PEG/G-TUBE BID@0800,1700 12/25/19 06/24/20 History Diltiazem Oral [Cardizem*] 30 mg PEG/G-TUBE TID@0600,1400,2200 12/25/19 06/24/20 History Magnesium Hydroxide [Milk of 7,200 mg PEG/G-TUBE DAILY PRN 12/25/19 06/24/20 H istory Magnesia Concentrate] Multivitamins, Thera Liquid 5 ml PEG/G-TUBE DAILY@1700 12/25/19 06/24/20 History [Theragran Liquid (formulary)] bisacodyL [Dulcolax] 10 mg RECTAL DAILY PRN 12/25/19 06/24/20 History metroNIDAZOLE 0.75% CREAM 1 applic TOPICAL DAILY applic 03/14/20 06/24/20 Rx [Metrocream] Ipratropium-Albuterol Nebulize 3 ml INHALATION RT-Q6H PRN 06/11/20 06/24/20 History [Duoneb 0.5 mg-3 mg/3 ml Soln] Na Phos,M-B/Na Phos,Di-Ba [Fleet 133 ml RECTAL DAILY PRN 06/11/20 06/24/20 History Adult] Cholestyramine (with Sugar) 4 gm PEG/G-TUBE DAILY@0800 packet 06/14/20 06/24/20 Rx [Questran Packet] Loratadine [Claritin] 10 mg PEG/G-TUBE DAILY@1700 tab 06/14/20 06/24/20 Rx hydrOXYzine HCL [Atarax] 25 mg PEG/G-TUBE 06/14/20 06/24/20 Rx TID@0600,1400,2200 tab Ferrous Sulfate Oral Elixir 220 mg PO DAILY@1700 06/24/20 06/24/20 History [Feosol Liquid] Furosemide [Lasix] 40 mg PEG/G-TUBE BID@0800,1700 06/24/20 06/24/20 History Gabapentin Oral Soln [Neurontin 500 mg PEG/G-TUBE 06/24/20 06/24/20 History Oral Soln] TID@0600,1400,2100 Hydrophilic Cream [Triad Cream] 1 applic TOPICAL HS 06/24/20 06/24/20 History INSULIN ASPART (NovoLOG) [NovoLOG See Protocol SQ ACHS 06/24/20 06/24/20 History (formulary)] Insulin Detemir (Levemir) [Levemir] 48 unit SQ HS@2130 06/24/20 06/24/20 History Liquacel 30 ml PEG/G-TUBE DAILY@0800 06/24/20 06/24/20 History metFORMIN HCL [Glucophage] 500 mg PEG/G-TUBE BID@0800,1700 06/24/20 06/24/20 History Allergies Allergy/AdvReac Type Severity Reaction Status Date / Time ciprofloxacin [From Cipro] Allergy Rash/Hives Verified 06/24/20 07:21 ciprofloxacin HCl Allergy Rash/Hives Verified 06/24/20 07:21 [From Cipro] Quinolones Allergy Unknown Verified 06/24/20 07:21 Physical Exam Vitals: Vital Signs Temp Pulse Resp BP Pulse Ox 06/24/20 06:47 99 F 102 H 18 127/74 96 06/24/20 05:39 97 18 157/65 94 L 06/24/20 04:54 99.2 F 138 H 16 95 Intake and Output 06/23/20 06/24/20 06/24/20 22:59 06:59 14:59 Other: Weight 85.411 kg Results 06/24/20 05:14 06/24/20 05:14 Cardiac Enzymes 06/24/20 06/24/20 Range/Units 05:14 05:14 AST 48 H (14-36) U/L Troponin I 0.049 H* (0.000-0.034) ng/mL Coagulation 06/24/20 Range/Units 05:14 PT 10.9 (9.0-12.0) sec APTT 19.0 L (22.0-30.0) sec CBC 06/24/20 Range/Units 05:14 WBC 15.3 H (3.8-10.6) k/uL RBC 5.44 H (3.80-5.40) m/uL Hgb 13.1 (11.4-16.0) gm/dL Hct 42.2 (34.0-46.0) % Plt Count 366 (150-450) k/uL Comprehensive Metabolic Panel 06/24/20 Range/Units 05:14 Sodium 145 (137-145) mmol/L Potassium 4.7 (3.5-5.1) mmol/L Chloride 105 (98-107) mmol/L Carbon Dioxide 30 (22-30) mmol/L BUN 52 H (7-17) mg/dL Creatinine 0.57 (0.52-1.04) mg/dL Glucose 327 H (74-99) mg/dL Calcium 10.1 (8.4-10.2) mg/dL AST 48 H (14-36) U/L ALT 36 H (4-34) U/L Alkaline Phosphatase 152 H (38-126) U/L Total Protein 7.4 (6.3-8.2) g/dL Albumin 3.7 (3.5-5.0) g/dL Current Medications Generic Name Dose Route Start Last Admin Trade Name Freq PRN Reason Stop Dose Admin Albuterol/Ipratropium 3 ml 06/24/20 07:03 Ipratropium-Albuterol 3 Ml Neb INHALATION RT-Q6H PRN Shortness Of Breath Apixaban 2.5 mg 06/24/20 08:00 Apixaban 2.5 Mg Tablet PEG/G-TUBE BID@0800,1700 [facility] Aspirin 325 mg 06/25/20 09:00 Aspirin 325 Mg Tab PO DAILY [facility] Cholestyramine Resin 4 gm 06/24/20 08:00 Cholestyramine (With Sugar) 4 Gm Packet PEG/G-TUBE DAILY@0800 [facility] Ferrous Sulfate 300 mg 06/24/20 17:00 Ferrous Sulfate Oral Elixir 300 Mg/5 Ml Cup PEG/G-TUBE DAILY@1700 [facility] Furosemide 40 mg 06/24/20 09:00 Furosemide 40 Mg Tab PO BID@0900,1600 [facility] Gabapentin 100 mg 06/24/20 14:00 Gabapentin 100 Mg Cap PEG/G-TUBE TID@0600,1400,2100 [facility] Diltiazem HCl 125 mg/ Sodium 125 mls @ 5 mls/hr 06/24/20 05:30 06/24/20 05:36 Chloride IV 5 mg/hr .Q24H [facility] 5 mls/hr Administration 5 MG/HR Sodium Chloride 1,000 mls @ 100 mls/hr 06/24/20 07:00 Saline 0.9% IV .Q10H [facility] Insulin Aspart 0 unit 06/24/20 07:30 Insulin Aspart (Novolog) 100 Unit/Ml Vial SQ ACHS [facility] Protocol Iron/Minerals/Multivitamins 5 ml 06/24/20 17:00 Multivitamins, Thera Liquid 237 Ml Bottle PEG/G-TUBE DAILY@1700 [facility] Levetiracetam 100 mg 06/24/20 08:00 Levetiracetam Oral Soln 500 Mg/5 Ml Cup PEG/G-TUBE DAILY@0800 [facility] Magnesium Hydroxide 2,400 mg 06/24/20 07:03 Magnesium Hydroxide 2,400 Mg/10 Ml Cup PEG/G-TUBE DAILY PRN Constipation Metoprolol Tartrate 100 mg 06/24/20 08:00 Metoprolol Tartrate 50 Mg Tab PEG/G-TUBE BID@0800,1700 [facility] Metronidazole 1 applic 06/24/20 09:00 Metronidazole 0.75% Cream 45 Gm Tube TOPICAL DAILY [facility] Nitroglycerin 0.4 mg 06/24/20 07:00 Nitroglycerin Sl Tabs 0.4 Mg Tab SUBLINGUAL Q5M PRN Chest Pain Pravastatin Sodium 40 mg 06/24/20 21:00 Pravastatin Sodium 40 Mg Tab PO HS [facility] Sodium Biphosphate/Sodium Phosphate 133 ml 06/24/20 07:03 Na Phos,M-B/Na Phos,Di-Ba 133 Ml Enema RECTAL DAILY PRN Constipation Intake and Output 06/23/20 06/24/20 06/24/20 22:59 06:59 14:59 Other: Weight 85.411 kg 06/24/20 05:14 06/24/20 05:14
[2020-06-24 14:51] LABS: Appearance,Urine Cloudy (Clear); Bilirubin,Urine Negative (Negative); Blood,Urine Moderate (Negative); Color,Urine Yellow; Glucose,Urine (UA) Negative (Negative); Ketones,Urine Negative (Negative); Leukocyte Esterase,Urine Large (Negative); Mucus,Urine Rare /hpf; Nitrite,Urine Negative (Negative); PH, Urine 7.5 (5.0-8.0); Protein,Urine 2+ (Negative); RBC,Urine 110 /hpf (0-5); Specific Gravity,Urine 1.024 (1.001-1.035); Squamous Epithelial Cell,Urine 7 /hpf (0-4); Urobilinogen,Urine <2.0 mg/dL (<2.0); WBC,Urine >182 /hpf (0-5)
--- NOTE | 2020-06-24 16:00 | P.GSCN ---
History of Present Illness Consult date: 06/24/20 History of present illness: CHIEF COMPLAINT: Atrial fibrillation with rapid ventricular response Reason for consult: Malfunctioning PEG tube and left breast lesion HISTORY OF PRESENT ILLNESS: This is a 74-year-old female with a known history of dementia, atrial fibrillation anticoagulated with Eliquis, diabetes mellitus, CVA, left breast cancer about 15 years ago with lumpectomy, hypertension and hyperlipidemia. Patient has a history of dysphagia due to her stroke and had PEG tube placed. Patient was seen in February 2020 due to malfunctioning PEG tube and had PEG tube replaced by Dr. feliz at that time. Patient is a resident at [facility]. She was brought into the hospital due to atrial fibrillation with rapid ventricular response. She's been evaluated by cardiology. And they have adjusted her medications. She was initially on a Cardizem drip and switch over to oral Cardizem. The nurse reports that patient also has been having issues with her PEG tube. She is able to flush the PEG tube but unable to draw back on it. Also patient has a left breast lesion that was biopsied in February [address] rAceo. The pathology results were negative for malignancy. The last breast ultrasound was in February 2020 results will probably benign, BIRADS 3 and recommended repeat ultrasound of the left breast in 1 month. Patient is nonverbal due to her stroke. However, she is able to answer questions with nodding her her head yes or no. She denies any pain in the left breast. She denies any new drainage. The skin lesion in the outer left quadrant of the breast. The area is scabbed. No significant drainage noted. PAST MEDICAL HISTORY: See list. PAST SURGICAL HISTORY: See list. MEDICATIONS: See list. ALLERGIES: See list. SOCIAL HISTORY: No illicit drug use. REVIEW OF SYSTEMS: CONSTITUTIONAL: Denies fever or chills. HEENT: Denies blurred vision, vision changes, or eye pain. Denies hemoptysis CARDIOVASCULAR: Denies chest pain or pressure. RESPIRATORY: No shortness of breath. GASTROINTESTINAL: See HPI for pertinent findings HEMATOLOGIC: Denies bleeding disorders. GENITOURINARY: Denies any blood in urine or increased urinary frequency. SKIN: Denies pruitis. Denies rash. PHYSICAL EXAM: VITAL SIGNS: Reviewed GENERAL: Well-developed in no acute distress. HEENT: No sclera icterus. Extraocular movements grossly intact. Moist buccal mucosa. Head is atraumatic, normocephalic. No nasal drainage. ABDOMEN: Soft. Obese. Nondistended. Nontender. PEG tube site is clean dry and intact NEUROLOGIC: Alert and oriented. Nonverbal Breast: Left breast skin lesion left outer quadrant. Area wound around the lesion is firm. Measuring about 2 cm in length. Area is scabbed. No significant drainage. LABORATORY DATA: WBC 15.3 hemoglobin 13.1 and platelets 366 INR 1.0 sodium 145 potassium 4.7 BUN 52 creatinine 0.57 glucose 238 Troponin 0.053 Urinalysis showing evidence of possible UTI IMAGING: ASSESSMENT: 1. Malfunctioning PEG tube 2. Left breast lesion with known history of left breast cancer. Her last left breast lesion biopsy in February was negative for malignancy PLAN: -Check PEG O Gram x-ray for PEG tube placement -Schedule patient for PEG tube replacement on 06/27/[address] Feliz -Check left breast ultrasound for left breast lesion -Eliquis will need to be held starting Saturday for the PEG tube replacement Thank you for this consultation Physician Bunch Breaker note has been reviewed by physician. Signing provider agrees with the documented findings, assessment, and plan of care. Past Medical History Past Medical History: Atrial Fibrillation, Atrial Flutter, Asthma, Cancer, Heart Failure, CVA/TIA, Dementia, Diabetes Mellitus, GERD/Reflux, GI Bleed, Hyperlipidemia, Hypertension, Pneumonia, Sleep Apnea/CPAP/BIPAP Additional Past Medical History / Comment(s): Verified with [employer] papers r/t son Jose Rafael being unsure of history. Jose Rafael states he is also pt's DPOA. 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, post traumatic seizures, History of Any Multi-Drug Resistant Organisms: MRSA Year Discovered:: 06/11/20 MDRO Source:: MRSA PEG TUBE SITE Past Surgical History: Breast Surgery, Cardiac Valve Replacement, Heart Catheterization With Stent, Hysterectomy, Orthopedic Surgery, Pacemaker, Tonsillectomy Additional Past Surgical History / Comment(s): Peg tube, mechanical mitral valve 2000, polypectomy spinal cord/cyst removed, TEEs, CVNs, colonoscopies, bilateral cataract removal/lens implants, L rotator cuff repair, R femur fracture with IM hip/screw/nail, L breast lumpectomy, Past Anesthesia/Blood Transfusion Reactions: No Reported Reaction Date of Last Stent Placement:: 2006 Type of Cardiac Device: Permanent Pacemaker Device Placement Date:: 2009 Past Psychological History: Depression Smoking Status: Unknown if ever smoked Past Alcohol Use History: Unable to Obtain Past Drug Use History: Unable to Obtain - Past Family History Father Family Medical History: GI Bleed Additional Family Medical History / Comment(s): OF BLEEDING ULCER AT AGE 64 Mother Family Medical History: Cancer, CVA/TIA Additional Family Medical History / Comment(s): HX STROKES, COLON CANCER Medications and Allergies Home Medications Medication Instructions Recorded Confirmed Type Pravastatin Sodium [Pravachol] 40 mg PEG/G-TUBE HS@2100 05/20/17 06/24/20 History levETIRAcetam [Keppra Oral 100 mg PEG/G-TUBE DAILY@0800 09/27/17 06/24/20 History Solution] Aspirin 81 mg PEG/G-TUBE DAILY@0800 05/30/18 06/24/20 History Metoprolol Tartrate [Lopressor] 100 mg PEG/G-TUBE BID@0800,1700 05/30/18 06/24/20 History Acetaminophen Oral Susp [Tylenol] 650 mg PEG/G-TUBE Q6H PRN 12/25/19 06/24/20 History Apixaban [Eliquis] 2.5 mg PEG/G-TUBE BID@0800,1700 12/25/19 06/24/20 History Diltiazem Oral [Cardizem*] 30 mg PEG/G-TUBE TID@0600,1400,2200 12/25/19 06/24/20 History Magnesium Hydroxide [Milk of 7,200 mg PEG/G-TUBE DAILY PRN 12/25/19 06/24/20 History Magnesia Concentrate] Multivitamins, Thera Liquid 5 ml PEG/G-TUBE DAILY@1700 12/25/19 06/24/20 History [Theragran Liquid (formulary)] bisacodyL [Dulcolax] 10 mg RECTAL DAILY PRN 12/25/19 06/24/20 History metroNIDAZOLE 0.75% CREAM 1 applic TOPICAL DAILY applic 03/14/20 06/24/20 Rx [Metrocream] Ipratropium-Albuterol Nebulize 3 ml INHALATION RT-Q6H PRN 06/11/20 06/24/20 History [Duoneb 0.5 mg-3 mg/3 ml Soln] Na Phos,M-B/Na Phos,Di-Ba [Fleet 133 ml RECTAL DAILY PRN 06/11/20 06/24/20 History Adult] Cholestyramine (with Sugar) 4 gm PEG/G-TUBE DAILY@0800 packet 06/14/20 06/24/20 Rx [Questran Packet] Loratadine [Claritin] 10 mg PEG/G-TUBE DAILY@1700 tab 06/14/20 06/24/20 Rx hydrOXYzine HCL [Atarax] 25 mg PEG/G-TUBE 06/14/20 06/24/20 Rx TID@0600,1400,2200 tab Ferrous Sulfate Oral Elixir 220 mg PO DAILY@1700 06/24/20 06/24/20 History [Feosol Liquid] Furosemide [Lasix] 40 mg PEG/G-TUBE BID@0800,1700 06/24/20 06/24/20 History Gabapentin Oral Soln [Neurontin 500 mg PEG/G-TUBE 06/24/20 06/24/20 History Oral Soln] TID@0600,1400,2100 Hydrophilic Cream [Triad Cream] 1 applic TOPICAL HS 06/24/20 06/24/20 History INSULIN ASPART (NovoLOG) [NovoLOG See Protocol SQ ACHS 06/24/20 06/24/20 History (formulary)] Insulin Detemir (Levemir) [Levemir] 48 unit SQ HS@2130 06/24/20 06/24/20 History Liquacel 30 ml PEG/G-TUBE DAILY@0800 06/24/20 06/24/20 History metFORMIN HCL [Glucophage] 500 mg PEG/G-TUBE BID@0800,1700 06/24/20 06/24/20 History Allergies Allergy/AdvReac Type Severity Reaction Status Date / Time ciprofloxacin [From Cipro] Allergy Rash/Hives Verified 06/24/20 07:21 ciprofloxacin HCl Allergy Rash/Hives Verified 06/24/20 07:21 [From Cipro] Quinolones Allergy Unknown Verified 06/24/20 07:21 Surgical - Exam Vital Signs Temp Pulse Resp Pulse Ox 99.2 F 138 H 16 95 06/24/20 04:54 06/24/20 04:54 06/24/20 04:54 06/24/20 04:54 Results - Labs 06/24/20 05:14 06/24/20 05:14 Abnormal Lab Results - Last 24 Hours (Table) 06/24/20 06/24/20 06/24/20 Range/Units 05:14 05:14 05:14 WBC 15.3 H (3.8-10.6) k/uL RBC 5.44 H (3.80-5.40) m/uL MCV 77.5 L (80.0-100.0) fL MCH 24.0 L (25.0-35.0) pg MCHC 30.9 L (31.0-37.0) g/dL RDW 19.7 H (11.5-15.5) % Neutrophils # 12.1 H (1.3-7.7) k/uL APTT 19.0 L (22.0-30.0) sec BUN 52 H (7-17) mg/dL Glucose 327 H (74-99) mg/dL POC Glucose (mg/dL) (75-99) mg/dL AST 48 H (14-36) U/L ALT 36 H (4-34) U/L Alkaline Phosphatase 152 H (38-126) U/L Troponin I (0.000-0.034) ng/mL Urine Appearance (Clear) Urine Protein (Negative) Urine Blood (Negative) Ur Leukocyte Esterase (Negative) Urine RBC (0-5) /hpf Urine WBC (0-5) /hpf Urine WBC Clumps (None) /hpf Ur Squamous Epith Cells (0-4) /hpf Urine Mucus (None) /hpf 06/24/20 06/24/20 06/24/20 Range/Units 05:14 08:26 09:13 WBC (3.8-10.6) k/uL RBC (3.80-5.40) m/uL MCV (80.0-100.0) fL MCH (25.0-35.0) pg MCHC (31.0-37.0) g/dL RDW (11.5-15.5) % Neutrophils # (1.3-7.7) k/uL APTT (22.0-30.0) sec BUN (7-17) mg/dL Glucose (74-99) mg/dL POC Glucose (mg/dL) 228 H (75-99) mg/dL AST (14-36) U/L ALT (4-34) U/L Alkaline Phosphatase (38-126) U/L Troponin I 0.049 H* 0.053 H* (0.000-0.034) ng/mL Urine Appearance (Clear) Urine Protein (Negative) Urine Blood (Negative) Ur Leukocyte Esterase (Negative) Urine RBC (0-5) /hpf Urine WBC (0-5) /hpf Urine WBC Clumps (None) /hpf Ur Squamous Epith Cells (0-4) /hpf Urine Mucus (None) /hpf 06/24/20 06/24/20 06/24/20 Range/Units 11:57 12:04 14:15 WBC (3.8-10.6) k/uL RBC (3.80-5.40) m/uL MCV (80.0-100.0) fL MCH (25.0-35.0) pg MCHC (31.0-37.0) g/dL RDW (11.5-15.5) % Neutrophils # (1.3-7.7) k/uL APTT (22.0-30.0) sec BUN (7-17) mg/dL Glucose (74-99) mg/dL POC Glucose (mg/dL) 238 H (75-99) mg/dL AST (14-36) U/L ALT (4-34) U/L Alkaline Phosphatase (38-126) U/L Troponin I 0.053 H* (0.000-0.034) ng/mL Urine Appearance Cloudy H (Clear) Urine Protein 2+ H (Negative) Urine Blood Moderate H (Negative) Ur Leukocyte Esterase Large H (Negative) Urine RBC 110 H (0-5) /hpf Urine WBC >182 H (0-5) /hpf Urine WBC Clumps Moderate H (None) /hpf Ur Squamous Epith Cells 7 H (0-4) /hpf Urine Mucus Rare H (None) /hpf Diabetes panel 06/24/20 Range/Units 05:14 Sodium 145 (137-145) mmol/L Potassium 4.7 (3.5-5.1) mmol/L Chloride 105 (98-107) mmol/L Carbon Dioxide 30 (22-30) mmol/L BUN 52 H (7-17) mg/dL Creatinine 0.57 (0.52-1.04) mg/dL Glucose 327 H (74-99) mg/dL Calcium 10.1 (8.4-10.2) mg/dL AST 48 H (14-36) U/L ALT 36 H (4-34) U/L Alkaline Phosphatase 152 H (38-126) U/L Total Protein 7.4 (6.3-8.2) g/dL Albumin 3.7 (3.5-5.0) g/dL Thyroid panel 06/24/20 Range/Units 05:14 TSH 0.846 (0.465-4.680) mIU/L Calcium panel 06/24/20 Range/Units 05:14 Calcium 10.1 (8.4-10.2) mg/dL Albumin 3.7 (3.5-5.0) g/dL Pituitary panel 06/24/20 Range/Units 05:14 Sodium 145 (137-145) mmol/L Potassium 4.7 (3.5-5.1) mmol/L Chloride 105 (98-107) mmol/L Carbon Dioxide 30 (22-30) mmol/L BUN 52 H (7-17) mg/dL Creatinine 0.57 (0.52-1.04) mg/dL Glucose 327 H (74-99) mg/dL Calcium 10.1 (8.4-10.2) mg/dL TSH 0.846 (0.465-4.680) mIU/L Adrenal panel 06/24/20 Range/Units 05:14 Sodium 145 (137-145) mmol/L Potassium 4.7 (3.5-5.1) mmol/L Chloride 105 (98-107) mmol/L Carbon Dioxide 30 (22-30) mmol/L BUN 52 H (7-17) mg/dL Creatinine 0.57 (0.52-1.04) mg/dL Glucose 327 H (74-99) mg/dL Calcium 10.1 (8.4-10.2) mg/dL Total Bilirubin 0.5 (0.2-1.3) mg/dL AST 48 H (14-36) U/L ALT 36 H (4-34) U/L Alkaline Phosphatase 152 H (38-126) U/L Total Protein 7.4 (6.3-8.2) g/dL Albumin 3.7 (3.5-5.0) g/dL
[2020-06-24] MEDS ORDERED: SODIUM CHLORIDE 0.9% 1,000 ML IV ONE (16:22)
--- NOTE | 2020-06-24 16:29 | HP ---
HISTORY AND PHYSICAL This is a 75-year-old white female who came in with paroxysmal atrial fibrillation, on Eliquis, hypertension, rheumatic mitral stenosis, status post mechanical mitral valve, sick sinus syndrome, pacemakers, stroke with left-sided paralysis, dysphagia with a PEG tube. She came in with atrial fibrillation with rapid ventricular response as well as possible abdominal bloating and PEG tube malfunction. Chest x-ray shows mild patchy infiltrates, possible aspiration pneumonia. MEDICATIONS: Medications at home include: 1. Cardizem t.i.d. 2. Metoprolol tartrate 100 b.i.d. 3. Lasix 40 mg b.i.d. 4. Eliquis 2.5 b.i.d. 5. Pravastatin 40 daily. 6. Aspirin 81 mg daily. Echo last is 55% to 60%. REVIEW OF SYSTEMS: Fourteen-point review of systems is negative except for weakness, fatigue and minimal speech from prior strokes and limited movements. PHYSICAL EXAMINATION: Vital signs reviewed. CARDIOVASCULAR: Irregularly irregular rhythm. Heart rates in the low 100s. LUNGS: Scattered rhonchi and wheeze. HEMATOLOGY: Negative Homans. PSYCH: Fair mood and affect. ABDOMEN: Distended. Increased bowel sounds. Soft. ASSESSMENT: 1. Paroxysmal atrial fibrillation, on Eliquis. CHADS-VASC score 6. 2. Elevated troponin due to atrial fibrillation with rapid ventricular response. 3. Rheumatic mitral stenosis, status post mechanical mitral valve replacement. 4. Sick sinus syndrome. 5. History of prior stroke, left-sided paralysis. 6. PEG tube malfunction with abdominal bloating. 7. Possible aspiration pneumonia. Will get Pulmonary involved. Cardiology has her on Cardizem drip, will switch to oral Cardizem soon. We will have her PEG tube looked at to make sure that is working properly. She also has a mass under her left arm, which will have to be seen by Surgery. Prognosis extremely guarded. She has a history of mass versus abscess in the past. Seen by Oncology and Surgery multiple times. Please see further orders. MMODL / IJN: [id number] /
--- NOTE | 2020-06-24 16:40 | XR ---
EXAMINATION TYPE: XR KUB DATE OF EXAM: 06/24/2020 COMPARISON: NONE HISTORY: Check PEG tube TECHNIQUE: Single view FINDINGS: Small amount of contrast is in the stomach Isovue 50 mL. There is no extravasation. Contras t opacifies the stomach and proximal duodenum. There is no evidence of leakage. IMPRESSION: Gastrostomy tube is in good position in the stomach.
[2020-06-24] MEDS ORDERED: bisacodyL 10 MG SUPP RECTAL PRN (16:50)
[2020-06-24 16:57] LABS: Glucose,Whole Blood 185 mg/dL (75-99)
--- NOTE | 2020-06-24 17:15 | P.CNPUL ---
History of Present Illness Consult date: 06/24/20 Reason for consult: dyspnea Chief complaint: Tachycardia History of present illness: This patient is well-known to me patient has a stroke nonverbal and noncommunicative history of the seizure disorder, chronic history of atrial fibrillation came into the hospital with tachycardia with heart rate of 130 patient was noted to have been in A. fib with RVR, patient has been started on IV Cardizem with fluid bolus cardiology on consultation, not much data can be obtained from the patient as patient is mute nonverbal and noncommunicative, her prior history significant for dyslipidemia, seizure disorder, hypertension hy pertensive cardiovascular disease, patient is on direct oral anticoagulant for chronic atrial fibrillation as well as Cardizem through the PEG tube, along with bronchodilators, also have a significant history of the chronic anemia, rectus sheath hematoma, on arrival she was noted to be febrile with low-grade temperature and WBC count is elevated to 15,000 heart rate was 138 came down to 102 hemodynamic status stable, BUN is elevated with 52 creatinine 0.57, lactic acid level is 2.8, urine appears abnormal with evidence of UTI with large leukocyte is trace moderate WBC clumps, leukocyte esterase positive in addition to fluid boluses and bronchodilator and continuation of home medicine patient has been started on appropriately IV antibiotics with Rocephin patient has a one IV, would recommend and requested the midline to be placed for more stable IV,, surgery has been following for malfunctioning PEG tube also she has a left breast lesion with negative biopsy in February, Review of Systems ROS unobtainable: due to mental status Past Medical History Past Medical History: Atrial Fibrillation, Atrial Flutter, Asthma, Cancer, Heart Failure, CVA/TIA, Dementia, Diabetes Mellitus, GERD/Reflux, GI Bleed, Hyperli pidemia, Hypertension, Pneumonia, Sleep Apnea/CPAP/BIPAP Additional Past Medical History / Comment(s): Verified with [employer] papers r/t son Jose Rafael being unsure of history. Jose Rafael states he is also pt's DPOA. 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, post traumatic seizures, History of Any Multi-Drug Resistant Organisms: MRSA Date of last positivie culture/infection: 06/11/20 MDRO Source:: MRSA PEG TUBE SITE Past Surgical History: Breast Surgery, Cardiac Valve Replacement, Heart Catheterization With Stent, Hysterectomy, Orthopedic Surgery, Pacemaker, Tonsillectomy Additional Past Surgical History / Comment(s): Peg tube, mechanical mitral valve 2001, polypectomy spinal cord/cyst removed, TEEs, CVNs, colonoscopies, bilateral cataract removal/lens implants, L rotator cuff repair, R femur fracture with IM hip/screw/nail, L breast lumpectomy, Past Anesthesia/Blood Transfusion Reactions: No Reported Reaction Date of Last Stent Placement:: 2006 Type of Cardiac Device: Permanent Pacemaker Device Placement Date:: 2009 Past Psychological History: Depression Smoking Status: Unknown if ever smoked Past Alcohol Use History: Unable to Obtain Past Drug Use History: Unable to Obtain - Past Family History Father Family Medical History: GI Bleed Additional Family Medical History / Comment(s): OF BLEEDING ULCER AT AGE 64 Mother Family Medical History: Cancer, CVA/TIA Additional Family Medical History / Comment(s): HX STROKES, COLON CANCER Medications and Allergies Home Medications Medication Instructions Recorded Confirmed Type Pravastatin Sodium [Pravachol] 40 mg PEG/G-TUBE HS@2100 05/20/17 06/24/20 History levETIRAcetam [Keppra Oral 100 mg PEG/G-TUBE DAILY@0800 09/27/17 06/24/20 His tory Solution] Aspirin 81 mg PEG/G-TUBE DAILY@0800 05/30/18 06/24/20 History Metoprolol Tartrate [Lopressor] 100 mg PEG/G-TUBE BID@0800,1700 05/30/18 06/24/20 History Acetaminophen Oral Susp [Tylenol] 650 mg PEG/G-TUBE Q6H PRN 12/25/19 06/24/20 History Apixaban [Eliquis] 2.5 mg PEG/G-TUBE BID@0800,1700 12/25/19 06/24/20 History Diltiazem Oral [Cardizem*] 30 mg PEG/G-TUBE TID@0600,1400,2200 12/25/19 06/24/20 History Magnesium Hydroxide [Milk of 7,200 mg PEG/G-TUBE DAILY PRN 12/25/19 06/24/20 History Magnesia Concentrate] Multivitamins, Thera Liquid 5 ml PEG/G-TUBE DAILY@1700 12/25/19 06/24/20 History [Theragran Liquid (formulary)] bisacodyL [Dulcolax] 10 mg RECTAL DAILY PRN 12/25/19 06/24/20 History metroNIDAZOLE 0.75% CREAM 1 applic TOPICAL DAILY applic 03/14/20 06/24/20 Rx [Metrocream] Ipratropium-Albuterol Nebulize 3 ml INHALATION RT-Q6H PRN 06/11/20 06/24/20 History [Duoneb 0.5 mg-3 mg/3 ml Soln] Na Phos,M-B/Na Phos,Di-Ba [Fleet 133 ml RECTAL DAILY PRN 06/11/20 06/24/20 History Adult] Cholestyramine (with Sugar) 4 gm PEG/G-TUBE DAILY@0800 packet 06/14/20 06/24/20 Rx [Questran Packet] Loratadine [Claritin] 10 mg PEG/G-TUBE DAILY@1700 tab 06/14/20 06/24/20 Rx hydrOXYzine HCL [Atarax] 25 mg PEG/G-TUBE 06/14/20 06/24/20 Rx TID@0600,1400,2200 tab Ferrous Sulfate Oral Elixir 220 mg PO DAILY@1700 06/24/20 06/24/20 History [Feosol Liquid] Furosemide [Lasix] 40 mg PEG/G-TUBE BID@0800,1700 06/24/20 06/24/20 History Gabapentin Oral Soln [Neurontin 500 mg PEG/G-TUBE 06/24/20 06/24/20 History Oral Soln] TID@0600,1400,2100 Hydrophilic Cream [Triad Cream] 1 applic TOPICAL HS 06/24/20 06/24/20 History INSULIN ASPART (NovoLOG) [NovoLOG See Protocol SQ ACHS 06/24/20 06/24/20 History (formulary)] Insulin Detemir (Levemir) [Levemir] 48 unit SQ HS@2130 06/24/20 06/24/20 History Liquacel 30 ml PEG/G-TUBE DAILY@0800 05/14/21 05/14/21 History metFORMIN HCL [Glucophage] 500 mg PEG/G-TUBE BID@0800,1700 06/24/20 06/24/20 History Allergies Allergy/AdvReac Type Severity Reaction Status Date / Time ciprofloxacin [From Cipro] Allergy Rash/Hives Verified 06/24/20 07:21 ciprofloxacin HCl Allergy Rash/Hives Verified 06/24/20 07:21 [From Cipro] Quinolones Allergy Unknown Verified 06/24/20 07:21 Physical Exam Vitals: Vital Signs Temp Pulse Resp BP Pulse Ox 06/24/20 06:47 99 F 102 H 18 127/74 96 06/24/20 05:39 97 18 157/65 94 L 06/24/20 04:54 99.2 F 138 H 16 95 Intake and Output 06/24/20 06/24/20 06/24/20 06:59 14:59 22:59 Other: Weight 85.411 kg 85.411 kg - Constitutional General appearance: average body habitus, disheveled - EENT Eyes: PERRLA Ears: bilateral: normal - Neck Neck: normal ROM Carotids: bilateral: upstroke normal - Respiratory Respiratory: bilateral: diminished - Cardiovascular Rhythm: irregularly irregular Heart sounds: normal: S1, S2 - Gastrointestinal General gastrointestinal: decreased bowel sounds - Integumentary Integumentary: decreased turgor - Musculoskeletal Musculoskeletal: generalized weakness Results - Laboratory Findings CBC and BMP: 06/24/20 05:14 06/24/20 05:14 PT/INR, D-dimer PT 10.9 sec (9.0-12.0) 06/24/20 05:14 INR 1.0 (<1.2) 06/24/20 05:14 Abnormal lab findings: Abnormal Labs 06/24/20 06/24/20 06/24/20 05:14 05:14 05:14 WBC 15.3 H RBC 5.44 H MCV 77.5 L MCH 24.0 L MCHC 30.9 L RDW 19.7 H Neutrophils # 12.1 H APTT 19.0 L BUN 52 H Glucose 327 H POC Glucose (mg/dL) Plasma Lactic Acid Buddy AST 48 H ALT 36 H Alkaline Phosphatase 152 H Troponin I Urine Appearance Urine Protein Urine Blood Ur Leukocyte Esterase Urine RBC Urine WBC Urine WBC Clumps Ur Squamous Epith Cells Urine Mucus 06/24/20 06/24/20 06/24/20 05:14 08:26 09:13 WBC RBC MCV MCH MCHC RDW Neutrophils # APTT BUN Glucose POC Glucose (mg/dL) 228 H Plasma Lactic Acid Buddy AST ALT Alkaline Phosphatase Troponin I 0.049 H* 0.053 H* Urine Appearance Urine Protein Urine Blood Ur Leukocyte Esterase Urine RBC Urine WBC Urine WBC Clumps Ur Squamous Epith Cells Urine Mucus 06/24/20 06/24/20 06/24/20 11:57 12:04 14:15 WBC RBC MCV MCH MCHC RDW Neutrophils # APTT BUN Glucose POC Glucose (mg/dL) 238 H Plasma Lactic Acid Buddy AST ALT Alkaline Phosphatase Troponin I 0.053 H* Urine Appearance Cloudy H Urine Protein 2+ H Urine Blood Moderate H Ur Leukocyte Esterase Large H Urine RBC 110 H Urine WBC >182 H Urine WBC Clumps Moderate H Ur Squamous Epith Cells 7 H Urine Mucus Rare H 06/24/20 06/24/20 15:24 16:51 WBC RBC MCV MCH MCHC RDW Neutrophils # APTT BUN Glucose POC Glucose (mg/dL) 185 H Plasma Lactic Acid Buddy 2.8 H* AST ALT Alkaline Phosphatase Troponin I Urine Appearance Urine Protein Urine Blood Ur Leukocyte Esterase Urine RBC Urine WBC Urine WBC Clumps Ur Squamous Epith Cells Urine Mucus Assessment and Plan Assessment: Sepsis likely due to urinary tract infection Intravascular volume depletion dehydration A flutter/A. fib with RVR multifactorial due to chronic atrial fibrillation as well as sepsis Multiple strokes nonverbal and noncommunicative Urinary tract infection Malfunctioning unstable PEG tube Plan: Obtained midline IV Rocephin For fluid boluses as tolerated per protocol IV Cardizem Continue home medications Further plan of care as per clinical response of the patient Malfunctioning PEG tube evaluation per surgical services Left breast lesion evaluation per surgical services Time with Patient: Greater than 30
[2020-06-24] MEDS: FERROUS SULFATE ORAL ELIXIR 300 MG/5 ML CUP PEG/G-TUBE SCH (17:36)
[2020-06-24] MEDS: MULTIVITAMINS, THERA LIQUID 237 ML BOTTLE PEG/G-TUBE SCH (17:36)
[2020-06-24] MEDS: LORATADINE 10 MG TAB PEG/G-TUBE SCH (17:36)
[2020-06-24 20:25] LABS: Glucose,Whole Blood 193 mg/dL (75-99)
[2020-06-24] MEDS: hydrOXYzine HCL 25 MG TAB PEG/G-TUBE SCH (20:59)
[2020-06-24] MEDS: INSULIN DETEMIR (LEVEMIR) 100 UNIT/ML SYR SQ SCH (21:00)
[2020-06-24] MEDS: PRAVASTATIN SODIUM 40 MG TAB PO SCH (21:00)
[2020-06-24] MEDS: GABAPENTIN 100 MG CAP PEG/G-TUBE SCH (21:00)
[2020-06-24] MEDS: GABAPENTIN 300 MG CAP PEG/G-TUBE SCH (21:00)
[2020-06-24] MEDS: HYDROPHILIC CREAM 180 GM TUBE TOPICAL SCH (21:15)
[2020-06-25] MEDS: SODIUM CHLORIDE 0.9% 1,000 ML IV SCH (05:56)
[2020-06-25] MEDS: GABAPENTIN 100 MG CAP PEG/G-TUBE SCH ×3 (05:59→21:22)
[2020-06-25] MEDS: hydrOXYzine HCL 25 MG TAB PEG/G-TUBE SCH ×3 (05:59→21:43)
[2020-06-25] MEDS: DILTIAZEM ORAL 30 MG TAB PO SCH ×2 (05:59→16:42)
[2020-06-25] MEDS: GABAPENTIN 300 MG CAP PEG/G-TUBE SCH ×3 (05:59→21:22)
[2020-06-25] MEDS: DILTIAZEM 125 MG in SODIUM CHLORIDE 0.9% 100 ML IV SCH (06:06)
[2020-06-25 06:43] LABS: Glucose,Whole Blood 206 mg/dL (75-99)
[2020-06-25] MEDS: INSULIN ASPART (NovoLOG) 100 UNIT/ML VIAL SQ SCH ×4 (06:56→21:22)
[2020-06-25 08:54] LABS: Anisocytosis Slight; Basophils # (A) 0.1 k/uL (0-0.2); Basophils % (A) 1 %; Eosinophils # (A) 0.3 k/uL (0-0.7); Eosinophils % (A) 3 %; HCT 38.2 % (34.0-46.0); HGB 10.8 gm/dL (11.4-16.0); Hypochromasia Marked; Lymphocytes # (A) 1.9 k/uL (1.0-4.8); Lymphocytes % (A) 19 %; MCH 22.9 pg (25.0-35.0); MCHC 28.3 g/dL (31.0-37.0); MCV 80.8 fL (80.0-100.0); Microcytosis Slight; Monocytes # (A) 0.4 k/uL (0-1.0); Monocytes % (A) 4 %; Neutrophils # (A) 7.6 k/uL (1.3-7.7); Neutrophils % (A) 73 %; Platelet Count 259 k/uL (150-450); RBC 4.73 m/uL (3.80-5.40); RDW 19.2 % (11.5-15.5); WBC 10.4 k/uL (3.8-10.6)
[2020-06-25] MEDS ORDERED: ASPIRIN 325 MG TAB PO SCH (09:00)
[2020-06-25 09:04] LABS: ALT 35 U/L (4-34); AST 31 U/L (14-36); African American GFR (CKD) >90 (>60 ml/min/1.73 sqM); Albumin 2.6 g/dL (3.5-5.0); Alkaline Phosphatase 108 U/L (38-126); Anion Gap 3 mmol/L; Blood Urea Nitrogen 38 mg/dL (7-17); Calcium 9.1 mg/dL (8.4-10.2); Carbon Dioxide 31 mmol/L (22-30); Chloride 111 mmol/L (98-107); Cholesterol 167 mg/dL (<200); Glucose 158 mg/dL (74-99); HDL Cholesterol 25 mg/dL (40-60); LDL Cholesterol,Calculated 83 mg/dL (0-99); Non-African American GFR(CKD) >90 (>60 ml/min/1.73 sqM); Potassium 4.2 mmol/L (3.5-5.1); Sodium 145 mmol/L (137-145); Total Bilirubin 0.2 mg/dL (0.2-1.3); Total Protein 5.6 g/dL (6.3-8.2); Triglycerides 294 mg/dL (<150)
[2020-06-25] MEDS: CHOLESTYRAMINE (WITH SUGAR) 4 GM PACKET PEG/G-TUBE SCH (09:31)
[2020-06-25] MEDS: FUROSEMIDE 40 MG TAB PEG/G-TUBE SCH ×2 (09:32→16:42)
[2020-06-25] MEDS: APIXABAN 2.5 MG TABLET PEG/G-TUBE SCH (09:32)
[2020-06-25] MEDS: ASPIRIN 81 MG PO SCH (09:32)
[2020-06-25] MEDS: METOPROLOL TARTRATE 50 MG TAB PEG/G-TUBE SCH ×3 (09:32→21:22)
[2020-06-25] MEDS: levETIRAcetam ORAL SOLN 500 MG/5 ML CUP PEG/G-TUBE SCH (09:32)
[2020-06-25] MEDS: NON FORMULARY DRUG (Liquacel 30 ML) PEG/G-TUBE SCH (09:34)
--- NOTE | 2020-06-25 10:26 | P.PN ---
Subjective Progress Note Date: 06/25/20 Principal diagnosis: PEG tube malfunction Patient tolerating tube feeds at goal. PEG tube appears to be appropriately positioned on diagnostic study. Breast ultrasound pending. Objective - Vital Signs Vital signs: Vital Signs Temp 98.3 F 06/25/20 09:30 Pulse 76 06/25/20 09:30 Resp 16 06/25/20 09:30 BP 124/74 06/25/20 09:30 Pulse Ox 95 06/25/20 09:30 Intake & Output 06/24/20 06/25/20 06/25/20 18:59 06:59 18:59 Intake Total 20 142.5 0 Output Total 400 Balance 20 -257.5 0 Weight 85.411 kg 83 kg Intake: IV 20 20 Invasive Line 1 20 20 Intake, IV Titration 122.5 Amount Diltiazem 125 mg In 122.5 Sodium Chloride 0.9% 100 ml @ 5 MG/HR 5 mls/hr IV .Q24H [facility] Rx#:[id number] Oral 0 Output: Urine 400 Uretheral (Gross) 400 Other: Voiding Method Indwelling Catheter Indwelling Catheter - Exam Abdomen: Soft, nondistended, PEG tube in place - Labs CBC & Chem 7: 06/25/20 08:26 06/25/20 08:26 Labs: Abnormal Lab Results - Last 24 Hours (Table) 06/24/20 06/24/20 06/24/20 Range/Units 11:57 12:04 14:15 Hgb (11.4-16.0) gm/dL MCH (25.0-35.0) pg MCHC (31.0-37.0) g/dL RDW (11.5-15.5) % Chloride (98-107) mmol/L Carbon Dioxide (22-30) mmol/L BUN (7-17) mg/dL Creatinine (0.52-1.04) mg/dL Glucose (74-99) mg/dL POC Glucose (mg/dL) 238 H (75-99) mg/dL Plasma Lactic Acid Buddy (0.7-2.0) mmol/L ALT (4-34) U/L Troponin I 0.053 H* (0.000-0.034) ng/mL Total Protein (6.3-8.2) g/dL Albumin (3.5-5.0) g/dL Triglycerides (<150) mg/dL HDL Cholesterol (40-60) mg/dL Urine Appearance Cloudy H (Clear) Urine Protein 2+ H (Negative) Urine Blood Moderate H (Negative) Ur Leukocyte Esterase Large H (Negative) Urine RBC 110 H (0-5) /hpf Urine WBC >182 H (0-5) /hpf Urine WBC Clumps Moderate H (None) /hpf Ur Squamous Epith Cells 7 H (0-4) /hpf Urine Mucus Rare H (None) /hpf 06/24/20 06/24/20 06/24/20 Range/Units 15:24 16:51 18:34 Hgb (11.4-16.0) gm/dL MCH (25.0-35.0) pg MCHC (31.0-37.0) g/dL RDW (11.5-15.5) % Chloride (98-107) mmol/L Carbon Dioxide (22-30) mmol/L BUN (7-17) mg/dL Creatinine (0.52-1.04) mg/dL Glucose (74-99) mg/dL POC Glucose (mg/dL) 185 H (75-99) mg/dL Plasma Lactic Acid Buddy 2.8 H* 2.1 H* (0.7-2.0) mmol/L ALT (4-34) U/L Troponin I (0.000-0.034) ng/mL Total Protein (6.3-8.2) g/dL Albumin (3.5-5.0) g/dL Triglycerides (<150) mg/dL HDL Cholesterol (40-60) mg/dL Urine Appearance (Clear) Urine Protein (Negative) Urine Blood (Negative) Ur Leukocyte Esterase (Negative) Urine RBC (0-5) /hpf Urine WBC (0-5) /hpf Urine WBC Clumps (None) /hpf Ur Squamous Epith Cells (0-4) /hpf Urine Mucus (None) /hpf 06/24/20 06/24/20 06/25/20 Range/Units 20:23 21:46 00:43 Hgb (11.4-16.0) gm/dL MCH (25.0-35.0) pg MCHC (31.0-37.0) g/dL RDW (11.5-15.5) % Chloride (98-107) mmol/L Carbon Dioxide (22-30) mmol/L BUN (7-17) mg/dL Creatinine (0.52-1.04) mg/dL Glucose (74-99) mg/dL POC Glucose (mg/dL) 193 H (75-99) mg/dL Plasma Lactic Acid Buddy 2.8 H* 2.6 H* (0.7-2.0) mmol/L ALT (4-34) U/L Troponin I (0.000-0.034) ng/mL Total Protein (6.3-8.2) g/dL Albumin (3.5-5.0) g/dL Triglycerides (<150) mg/dL HDL Cholesterol (40-60) mg/dL Urine Appearance (Clear) Urine Protein (Negative) Urine Blood (Negative) Ur Leukocyte Esterase (Negative) Urine RBC (0-5) /hpf Urine WBC (0-5) /hpf Urine WBC Clumps (None) /hpf Ur Squamous Epith Cells (0-4) /hpf Urine Mucus (None) /hpf 06/25/20 06/25/20 06/25/20 Range/Units 06:42 08:26 08:26 Hgb 10.8 L (11.4-16.0) gm/dL MCH 22.9 L (25.0-35.0) pg MCHC 28.3 L (31.0-37.0) g/dL RDW 19.2 H (11.5-15.5) % Chloride 111 H (98-107) mmol/L Carbon Dioxide 31 H (22-30) mmol/L BUN 38 H (7-17) mg/dL Creatinine 0.51 L (0.52-1.04) mg/dL Glucose 158 H (74-99) mg/dL POC Glucose (mg/dL) 206 H (75-99) mg/dL Plasma Lactic Acid Buddy (0.7-2.0) mmol/L ALT 35 H (4-34) U/L Troponin I (0.000-0.034) ng/mL Total Protein 5.6 L (6.3-8.2) g/dL Albumin 2.6 L (3.5-5.0) g/dL Triglycerides 294 H (<150) mg/dL HDL Cholesterol 25 L (40-60) mg/dL Urine Appearance (Clear) Urine Protein (Negative) Urine Blood (Negative) Ur Leukocyte Esterase (Negative) Urine RBC (0-5) /hpf Urine WBC (0-5) /hpf Urine WBC Clumps (None) /hpf Ur Squamous Epith Cells (0-4) /hpf Urine Mucus (None) /hpf Microbiology - Last 24 Hours (Table) 06/24/20 14:15 Urine Culture - Preliminary Urine,Clean Catch Assessment and Plan (1) PEG tube malfunction Narrative/Plan: PEG tube appears to be functioning properly. Await findings of breast ultrasoun d. Current Visit: No Status: Acute Code(s): K94.23 - GASTROSTOMY MALFUNCTION SNOMED Code(s): 941036163
[2020-06-25 12:05] LABS: Glucose,Whole Blood 128 mg/dL (75-99)
--- NOTE | 2020-06-25 13:55 | PN ---
PROGRESS NOTE 75-year-old white female. She had a PEG tube malfunction. Her abdomen was bloated. Waiting for some diagnostic PEG tube test that was done and breast ultrasounds pending for left axillary mass for which they have been seen multiple times in the last year. Her vitals are good. Temperature 98.3, pulse 70 to 76, respiratory 18, blood pressure 120s over 70s. O2 95. Cardiovascular: S1, S2. Lungs are clear. Abdomen is soft. PEG tube is in place. Hemoglobin is 10.3, white count 7.4, BUN is 38, creatinine 0.51. Troponin 0.053. Lactic acid elevated at 2.8, now 2.1. She has large leukocyte esterase, greater than 182 white blood cells in the urine. ASSESSMENT AND PLAN: 1. Urosepsis. 2. PEG tube malfunction. 3. Breast mass. 4. Prior stroke with esophageal dysmobility. She gets PEG tube feedings, which were being addressed. 5. Cardiology is addressing echo, which was normal. 6. Dr. Silva is on consult for bilateral pneumonia versus congestive heart failure on her lungs. His recommendations include sepsis secondary to urinary tract infection, atrial flutter, atrial fibrillation with chronic atrial fibrillation, rapid ventricular response. He says she is dehydrated. 7. Prior strokes. 8. Urinary tract infection. 9. IV Rocephin. 10.IV Cardizem. 11.Await for Cardiology and Dr. Chavira and surgery. 12.Prognosis guarded. MMODL / IJN: [id number] /
--- NOTE | 2020-06-25 14:50 | P.PN ---
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 She used to follow with Dr. Craig, has not been seen in the office since March 2017. We have been asked to see in consultation for atrial fibrillation with RVR. Patient sent from [facility] after finding the patient's heart rate in the 130s. Patient is seen and examined at bedside, no acute distress. Patient is a poor historian, She is nonverbal. EKG revealed atrial fibrillation HR 140s. Patient given cardizem 10mg Bolus, then started on cardizem drip 5mg Hr. Laboratory data reviewed, Troponin 0.049-->0.53-->0.53, WBC 15.3, hemoglobin 13.1, platelets 366, sodium 145, potassium 4.7, serum creatinine 0.57, TSH within normal limits, COVID-19 negative, AST 48, ALT 36, Alk Phos 152. Chest xray revealed dual-lead pacemaker, mild patchy opacities vascular congestion vs infilatrates mild. Current home cardiac medications include Cardizem 30mg TID, metoprolol titrate 100 mg twice daily, Lasix 40 mg twice a day, Eliquis 2.5 mg twice a day, pravastatin 40 mg nightly, aspirin 81 mg daily. 06/25 Patient seen and examined. Patient denies any chest pain or pressure. Denies any shortness breath. Patient was placed on a Cardizem drip, currently at 5. Currently patient is in sinus rhythm with controlled ventricular rates. REVIEW OF SYSTEMS At the time of my exam: Patient gives limited answers yes, no. She states no shortness breath, chest pain or pressure. PHYSICAL EXAMINATION CONSTITUTIONAL: No apparent distress, chronically ill-appearing, PEG tube HEENT: Head is normocephalic. Pupils are equal, round. Sclerae anicteric. Mucous membranes of the mouth are moist. No JVD. No carotid bruit. CHEST EXAMINATION: Lungs are clear to auscultation. No chest wall tenderness is noted on palpation or with deep breathing. HEART EXAMINATION: Regular rate and rhythm. S1, S2 heard. mitral click heard. No murmurs, gallops or rub. ABDOMEN: Soft, nontender. Positive bowel sounds. EXTREMITIES: 2+ peripheral pulses, no lower extremity edema and no calf tenderness. NEUROLOGIC EXAMINATION: Patient is awake ,nonverbal, not oriented. ASSESSMENT Paroxysmal atrial fibrillation (on Eliquis) - [id number] score 6, early sinus rhythm Elevated troponin, most likely due to a fib with RVR. Rheumatic mitral stenosis status post mechanical mitral valve replacement in 2000. Patient was on coumadin, however she is now on Eliquis, Unsure of when this was changed or why. Sick sinus syndrome status post pacemaker History of stroke (with left sided paralysis) Dysphagia s/p PEG tube placement Chronic respiratory failure s/p tracheostomy tube PLAN - Patient currently back in normal sinus rhythm. Stop Cardizem drip and continue with metoprolol 100mg TID - Patient scheduled for PEG tube replacement on Saturday. We will change patient to a heparin drip and anticoagulation should be continued as long as possible however may be bridged around the time of surgery. Objective - Vital Signs Vital signs: Vital Signs Temp 98.6 F 06/25/20 11:44 Pulse 76 06/25/20 14:00 Resp 18 06/25/20 14:00 BP 135/70 06/25/20 11:44 Pulse Ox 94 L 06/25/20 11:44 Intake & Output 06/24/20 06/25/20 06/25/20 18:59 06:59 18:59 Intake Total 20 142.5 20 Output Total 400 100 Balance 20 -257.5 -80 Weight 85.411 kg 83 kg Intake: IV 20 20 20 Invasive Line 1 20 20 20 Intake, IV Titration 122.5 Amount Diltiazem 125 mg In 122.5 Sodium Chloride 0.9% 100 ml @ 5 MG/HR 5 mls/hr IV .Q24H [facility] Rx#:[id number] Oral 0 Output: Urine 400 100 Uretheral (Gross) 400 Other: Voiding Method Indwelling Catheter Indwelling Catheter Indwelling Catheter - Labs CBC & Chem 7: 06/25/20 08:26 06/25/20 08:26 Labs: Abnormal Lab Results - Last 24 Hours (Table) 06/24/20 06/24/20 06/24/20 Range/Units 14:15 15:24 16:51 Hgb (11.4-16.0) gm/dL MCH (25.0-35.0) pg MCHC (31.0-37.0) g/dL RDW (11.5-15.5) % Chloride (98-107) mmol/L Carbon Dioxide (22-30) mmol/L BUN (7-17) mg/dL Creatinine (0.52-1.04) mg/dL Glucose (74-99) mg/dL POC Glucose (mg/dL) 185 H (75-99) mg/dL Plasma Lactic Acid Buddy 2.8 H* (0.7-2.0) mmol/L ALT (4-34) U/L Total Protein (6.3-8.2) g/dL Albumin (3.5-5.0) g/dL Triglycerides (<150) mg/dL HDL Cholesterol (40-60) mg/dL Urine Appearance Cloudy H (Clear) Urine Protein 2+ H (Negative) Urine Blood Moderate H (Negative) Ur Leukocyte Esterase Large H (Negative) Urine RBC 110 H (0-5) /hpf Urine WBC >182 H (0-5) /hpf Urine WBC Clumps Moderate H (None) /hpf Ur Squamous Epith Cells 7 H (0-4) /hpf Urine Mucus Rare H (None) /hpf 06/24/20 06/24/20 06/24/20 Range/Units 18:34 20:23 21:46 Hgb (11.4-16.0) gm/dL MCH (25.0-35.0) pg MCHC (31.0-37.0) g/dL RDW (11.5-15.5) % Chloride (98-107) mmol/L Carbon Dioxide (22-30) mmol/L BUN (7-17) mg/dL Creatinine (0.52-1.04) mg/dL Glucose (74-99) mg/dL POC Glucose (mg/dL) 193 H (75-99) mg/dL Plasma Lactic Acid Buddy 2.1 H* 2.8 H* (0.7-2.0) mmol/L ALT (4-34) U/L Total Protein (6.3-8.2) g/dL Albumin (3.5-5.0) g/dL Triglycerides (<150) mg/dL HDL Cholesterol (40-60) mg/dL Urine Appearance (Clear) Urine Protein (Negative) Urine Blood (Negative) Ur Leukocyte Esterase (Negative) Urine RBC (0-5) /hpf Urine WBC (0-5) /hpf Urine WBC Clumps (None) /hpf Ur Squamous Epith Cells (0-4) /hpf Urine Mucus (None) /hpf 06/25/20 06/25/20 06/25/20 Range/Units 00:43 06:42 08:26 Hgb (11.4-16.0) gm/dL MCH (25.0-35.0) pg MCHC (31.0-37.0) g/dL RDW (11.5-15.5) % Chloride 111 H (98-107) mmol/L Carbon Dioxide 31 H (22-30) mmol/L BUN 38 H (7-17) mg/dL Creatinine 0.51 L (0.52-1.04) mg/dL Glucose 158 H (74-99) mg/dL POC Glucose (mg/dL) 206 H (75-99) mg/dL Plasma Lactic Acid Buddy 2.6 H* (0.7-2.0) mmol/L ALT 35 H (4-34) U/L Total Protein 5.6 L (6.3-8.2) g/dL Albumin 2.6 L (3.5-5.0) g/dL Triglycerides 294 H (<150) mg/dL HDL Cholesterol 25 L (40-60) mg/dL Urine Appearance (Clear) Urine Protein (Negative) Urine Blood (Negative) Ur Leukocyte Esterase (Negative) Urine RBC (0-5) /hpf Urine WBC (0-5) /hpf Urine WBC Clumps (None) /hpf Ur Squamous Epith Cells (0-4) /hpf Urine Mucus (None) /hpf 06/25/20 06/25/20 Range/Units 08:26 12:03 Hgb 10.8 L (11.4-16.0) gm/dL MCH 22.9 L (25.0-35.0) pg MCHC 28.3 L (31.0-37.0) g/dL RDW 19.2 H (11.5-15.5) % Chloride (98-107) mmol/L Carbon Dioxide (22-30) mmol/L BUN (7-17) mg/dL Creatinine (0.52-1.04) mg/dL Glucose (74-99) mg/dL POC Glucose (mg/dL) 128 H (75-99) mg/dL Plasma Lactic Acid Buddy (0.7-2.0) mmol/L ALT (4-34) U/L Total Protein (6.3-8.2) g/dL Albumin (3.5-5.0) g/dL Triglycerides (<150) mg/dL HDL Cholesterol (40-60) mg/dL Urine Appearance (Clear) Urine Protein (Negative) Urine Blood (Negative) Ur Leukocyte Esterase (Negative) Urine RBC (0-5) /hpf Urine WBC (0-5) /hpf Urine WBC Clumps (None) /hpf Ur Squamous Epith Cells (0-4) /hpf Urine Mucus (None) /hpf Microbiology - Last 24 Hours (Table) 06/24/20 14:15 Urine Culture - Preliminary Urine,Clean Catch
[2020-06-25] MEDS ORDERED: HEPARIN SODIUM 1,000 UN/ML (10ML VL) IV PRN (14:51)
[2020-06-25] MEDS ORDERED: HEPARIN SODIUM 1,000 UN/ML (10ML VL) IV ONE (15:00)
[2020-06-25 16:22] LABS: Anisocytosis Slight; Basophils # (A) 0.1 k/uL (0-0.2); Basophils % (A) 1 %; Eosinophils # (A) 0.4 k/uL (0-0.7); Eosinophils % (A) 3 %; HCT 36.7 % (34.0-46.0); HGB 11.7 gm/dL (11.4-16.0); Hypochromasia Marked; Lymphocytes % (A) 16 %; MCH 25.1 pg (25.0-35.0); MCHC 31.8 g/dL (31.0-37.0); MCV 78.8 fL (80.0-100.0); Mean Platelet Volume 8.9; Microcytosis Slight; Monocytes # (A) 0.6 k/uL (0-1.0); Monocytes % (A) 5 %; Neutrophils # (A) 9.3 k/uL (1.3-7.7); Neutrophils % (A) 75 %; Platelet Count 214 k/uL (150-450); RBC 4.66 m/uL (3.80-5.40); RDW 19.5 % (11.5-15.5); WBC 12.4 k/uL (3.8-10.6)
[2020-06-25 16:37] LABS: INR 1.3 (<1.2); Partial Thromboplastin Time 22.8 sec (22.0-30.0); Prothrombin Time 13.1 sec (9.0-12.0)
[2020-06-25] MEDS: HEPARIN SOD,PORK IN 0.45% NACL 25,000 UNIT in 0.45% NACL 1 250ML.BAG IV SCH (16:39)
[2020-06-25] MEDS: LORATADINE 10 MG TAB PEG/G-TUBE SCH (16:42)
[2020-06-25] MEDS: FERROUS SULFATE ORAL ELIXIR 300 MG/5 ML CUP PEG/G-TUBE SCH (16:43)
[2020-06-25] MEDS: MULTIVITAMINS, THERA LIQUID 237 ML BOTTLE PEG/G-TUBE SCH (16:49)
[2020-06-25 17:27] LABS: Glucose,Whole Blood 142 mg/dL (75-99)
[2020-06-25 20:15] LABS: Glucose,Whole Blood 139 mg/dL (75-99)
--- NOTE | 2020-06-25 20:26 | CONS ---
CONSULTATION DATE OF SERVICE: 06/25/2020 REASON FOR CONSULTATION: UTI and sepsis. HISTORY OF PRESENT ILLNESS: The patient is a 75-year-old female with recent multiple admissions to this facility, being treated for catheter associated UTI and PEG tube site cellulitis. Patient has been sent to the ER from the [place] [facility] for evaluation as the patient was noticed to have heart rate in 130s and this patient noted to have history of atrial fibrillation. The patient on presentation to the hospital has been afebrile and no fever has been recorded. Subsequently, the patient did have a white count of 15.3 which normalized to 10.4. The patient did have a positive UA. She was started on Rocephin pending cultures. Infectious Disease is consulted for further management and concern for recurrent UTI. The patient did have a chest x-ray, no pneumothorax, mild patchy perihilar opacities. Most of the information has been obtained from the chart. Patient has been unable to provide reliable history. She shook her head no to most of the question off. REVIEW OF SYSTEMS: Positive points have been mentioned in HPI. The review could not be obtained because of mental status. PAST MEDICAL HISTORY: Atrial fibrillation, heart failure, CVA, TIA, dementia, diabetes mellitus, ( ), hypertension, hyperlipidemia, recurrent UTI and PEG tube site cellulitis. PAST SURGICAL HISTORY: Breast surgery, heart valve replacement, PTCA with stenting, pacemaker placement, tonsillectomy. SOCIAL HISTORY: No history of smoking, drinking or drug use. FAMILY HISTORY: Mother with history of stroke and colon cancer. ALLERGIES: CIPROFLOXACIN. MEDICATIONS: The patient is currently on Tylenol, aspirin, Dulcolax, Rocephin 1 g daily, Restoril, Cardizem, iron sulfate, Lasix, Neurontin, heparin, NovoLog, Levemir, Claritin, Milk of Magnesia, Lopressor, ( ) cream, Pravachol. PHYSICAL EXAMINATION: Blood pressure is 95/70 with a pulse of 76, temperature 98.6, 94% on room air. General description is an elderly female lying in bed in no distress. HEENT examination: Slight pallor. No scleral icterus. Oral mucous membrane is dry. NECK: Trachea is central. No thyromegaly. LUNGS: Unlabored breathing. Clear to auscultation anteriorly. HEART: S1, S2. Regular rate and rhythm. ABDOMEN: Soft. PEG tube site with no significant swelling, redness or any drainage. No guarding, no rigidity. No organomegaly. EXTREMITIES: No edema of feet. SKIN: No rash or mass palpable. NEUROLOGIC: The patient is sleepy, lethargic. Orientation could not be determined. LABS: Hemoglobin is 10.1, white count 10.4, BUN of 38, creatinine 0.59. Urine was positive, culture is pending. DIAGNOSTIC IMPRESSION AND PLAN: Patient admitted to the hospital with atrial fibrillation with rapid ventricular response in the patient who did have a history of recurrent urinary tract infection. With respect to Gross catheter which needs to be manipulated aseptically and changed frequently to prevent recurrent episodes of cellulitis. PLAN: 1. Rocephin 1 gm to continue while waiting for the culture to finalize. 2. We will follow clinical condition and further adjust medication if needed. Thank you for this consultation, will follow this patient along with you. MMODL / IJN: [id number] /
[2020-06-25] MEDS: PRAVASTATIN SODIUM 40 MG TAB PO SCH (21:22)
[2020-06-25] MEDS: INSULIN DETEMIR (LEVEMIR) 100 UNIT/ML SYR SQ SCH (21:23)
[2020-06-25] MEDS: HYDROPHILIC CREAM 180 GM TUBE TOPICAL SCH (21:43)
--- NOTE | 2020-06-25 22:47 | P.PN ---
Subjective Progress Note Date: 06/25/20 Principal diagnosis: Sepsis likely due to urinary tract infection Intravascular volume depletion dehydration A flutter/A. fib with RVR multifactorial due to chronic atrial fibrillation as well as sepsis Multiple strokes nonverbal and noncommunicative Urinary tract infection Malfunctioning unstable PEG tube 06/25/2020, patient seen eval examined during the rounds labs reviewed medications reviewed care plan discussed, patient remains awake nonverbal and noncommunicative, remains on IV heparin IV antibiotics gently being hydrated, surgical services are following for PEG tube This patient is well-known to me patient has a stroke nonverbal and noncommunicative history of the seizure disorder, chronic history of atrial fibrillation came into the hospital with tachycardia with heart rate of 130 patient was noted to have been in A. fib with RVR, patient has been started on IV Cardizem with fluid bolus cardiology on consultation, not much data can be obtained from the patient as patient is mute nonverbal and noncommunicative, her prior history significant for dyslipidemia, seizure disorder, hypertension hypertensive cardiovascular disease, patient is on direct oral anticoagulant for chronic atrial fibrillation as well as Cardizem through the PEG tube, along with bronchodilators, also have a significant history of the chronic anemia, rectus sheath hematoma, on arrival she was noted to be febrile with low-grade temperature and WBC count is elevated to 15,000 heart rate was 138 came down to 102 hemodynamic status stable, BUN is elevated with 52 creatinine 0.57, lactic acid level is 2.8, urine appears abnormal with evidence of UTI with large leukocyte is trace moderate WBC clumps, leukocyte esterase positive in addition to fluid boluses and bronchodilator and continuation of home medicine patient has been started on appropriately IV antibiotics with Rocephin patient has a one IV, would recommend and requested the midline to be placed for more stable IV,, surgery has been following for malfunctioning PEG tube also she has a left breast lesion with negative biopsy in February, Objective - Vital Signs Vital signs: Vital Signs Temp 98.3 F 06/25/20 20:00 Pulse 87 06/25/20 20:00 Resp 18 06/25/20 20:00 BP 155/72 06/25/20 20:00 Pulse Ox 97 06/25/20 20:00 Intake & Output 06/25/20 06/25/20 06/26/20 06:59 18:59 06:59 Intake Total 142.5 20 Output Total 400 475 600 Balance -257.5 -455 -600 Weight 83 kg Intake: IV 20 20 Invasive Line 1 20 20 Intake, IV Titration 122.5 Amount Diltiazem 125 mg In 122.5 Sodium Chloride 0.9% 100 ml @ 5 MG/HR 5 mls/hr IV .Q24H [facility] Rx#:[id number] Oral 0 Output: Urine 400 475 600 Uretheral (Gross) 400 Other: Voiding Method Indwelling Catheter Indwelling Catheter Indwelling Catheter # Bowel Movements 1 - Exam Constitutional General appearance: average body habitus, disheveled - EENT Eyes: PERRLA Ears: bilateral: normal - Neck Neck: normal ROM Carotids: bilateral: upstroke normal - Respiratory Respiratory: bilateral: diminished - Cardiovascular Rhythm: irregularly irregular Heart sounds: normal: S1, S2 - Gastrointestinal General gastrointestinal: decreased bowel sounds - Integumentary Integumentary: decreased turgor - Musculoskeletal Musculoskeletal: generalized weakness - Labs CBC & Chem 7: 06/25/20 15:24 06/25/20 08:26 Labs: Abnormal Lab Results - Last 24 Hours (Table) 06/25/20 06/25/20 06/25/20 Range/Units 00:43 06:42 08:26 WBC (3.8-10.6) k/uL Hgb (11.4-16.0) gm/dL MCV (80.0-100.0) fL MCH (25.0-35.0) pg MCHC (31.0-37.0) g/dL RDW (11.5-15.5) % Neutrophils # (1.3-7.7) k/uL PT (9.0-12.0) sec INR (<1.2) Chloride 111 H (98-107) mmol/L Carbon Dioxide 31 H (22-30) mmol/L BUN 38 H (7-17) mg/dL Creatinine 0.51 L (0.52-1.04) mg/dL Glucose 158 H (74-99) mg/dL POC Glucose (mg/dL) 206 H (75-99) mg/dL Plasma Lactic Acid Buddy 2.6 H* (0.7-2.0) mmol/L ALT 35 H (4-34) U/L Total Protein 5.6 L (6.3-8.2) g/dL Albumin 2.6 L (3.5-5.0) g/dL Triglycerides 294 H (<150) mg/dL HDL Cholesterol 25 L (40-60) mg/dL 06/25/20 06/25/20 06/25/20 Range/Units 08:26 12:03 15:24 WBC 12.4 H (3.8-10.6) k/uL Hgb 10.8 L (11.4-16.0) gm/dL MCV 78.8 L (80.0-100.0) fL MCH 22.9 L (25.0-35.0) pg MCHC 28.3 L (31.0-37.0) g/dL RDW 19.2 H 19.5 H (11.5-15.5) % Neutrophils # 9.3 H (1.3-7.7) k/uL PT (9.0-12.0) sec INR (<1.2) Chloride (98-107) mmol/L Carbon Dioxide (22-30) mmol/L BUN (7-17) mg/dL Creatinine (0.52-1.04) mg/dL Glucose (74-99) mg/dL POC Glucose (mg/dL) 128 H (75-99) mg/dL Plasma Lactic Acid Buddy (0.7-2.0) mmol/L ALT (4-34) U/L Total Protein (6.3-8.2) g/dL Albumin (3.5-5.0) g/dL Triglycerides (<150) mg/dL HDL Cholesterol (40-60) mg/dL 06/25/20 06/25/20 06/25/20 Range/Units 15:24 17:15 20:12 WBC (3.8-10.6) k/uL Hgb (11.4-16.0) gm/dL MCV (80.0-100.0) fL MCH (25.0-35.0) pg MCHC (31.0-37.0) g/dL RDW (11.5-15.5) % Neutrophils # (1.3-7.7) k/uL PT 13.1 H (9.0-12.0) sec INR 1.3 H (<1.2) Chloride (98-107) mmol/L Carbon Dioxide (22-30) mmol/L BUN (7-17) mg/dL Creatinine (0.52-1.04) mg/dL Glucose (74-99) mg/dL POC Glucose (mg/dL) 142 H 139 H (75-99) mg/dL Plasma Lactic Acid Buddy (0.7-2.0) mmol/L ALT (4-34) U/L Total Protein (6.3-8.2) g/dL Albumin (3.5-5.0) g/dL Triglycerides (<150) mg/dL HDL Cholesterol (40-60) mg/dL Microbiology - Last 24 Hours (Table) 06/24/20 16:40 Blood Culture - Preliminary Blood No Growth after 24 hours 06/24/20 16:26 Blood Culture - Preliminary Blood No Growth after 24 hours 06/24/20 14:15 Urine Culture - Final Urine,Clean Catch Assessment and Plan Assessment: Sepsis likely due to urinary tract infection Intravascular volume depletion dehydration A flutter/A. fib with RVR multifactorial due to chronic atrial fibrillation as well as sepsis Multiple strokes nonverbal and noncommunicative Urinary tract infection Malfunctioning unstable PEG tube Plan: Continue IV Rocephin For fluid boluses as tolerated per protocol IV Cardizem/heparin Continue home medications Further plan of care as per clinical response of the patient Malfunctioning PEG tube evaluation per surgical services Left breast lesion evaluation per surgical services Time with Patient: Greater than 30
[2020-06-26 02:04] LABS: Glucose,Whole Blood 149 mg/dL (75-99)
[2020-06-26] MEDS: hydrOXYzine HCL 25 MG TAB PEG/G-TUBE SCH ×3 (06:05→22:11)
[2020-06-26] MEDS: GABAPENTIN 100 MG CAP PEG/G-TUBE SCH ×3 (06:06→21:57)
[2020-06-26] MEDS: DILTIAZEM ORAL 30 MG TAB PO SCH ×2 (06:06→16:56)
[2020-06-26] MEDS: GABAPENTIN 300 MG CAP PEG/G-TUBE SCH ×3 (06:06→21:58)
[2020-06-26 06:17] LABS: Glucose,Whole Blood 146 mg/dL (75-99)
[2020-06-26] MEDS: INSULIN ASPART (NovoLOG) 100 UNIT/ML VIAL SQ SCH ×4 (06:22→22:00)
[2020-06-26 08:02] LABS: Anisocytosis Slight; Basophils # (A) 0.1 k/uL (0-0.2); Basophils % (A) 1 %; Eosinophils # (A) 0.5 k/uL (0-0.7); Eosinophils % (A) 4 %; HGB 11.1 gm/dL (11.4-16.0); Hypochromasia Marked; Lymphocytes # (A) 2.2 k/uL (1.0-4.8); Lymphocytes % (A) 17 %; MCH 23.8 pg (25.0-35.0); MCHC 29.9 g/dL (31.0-37.0); MCV 79.6 fL (80.0-100.0); Microcytosis Slight; Monocytes # (A) 0.5 k/uL (0-1.0); Monocytes % (A) 4 %; Neutrophils # (A) 9.3 k/uL (1.3-7.7); Neutrophils % (A) 73 %; Platelet Count 279 k/uL (150-450); RBC 4.65 m/uL (3.80-5.40); RDW 19.5 % (11.5-15.5); WBC 12.7 k/uL (3.8-10.6)
[2020-06-26] MEDS: FUROSEMIDE 40 MG TAB PEG/G-TUBE SCH ×2 (09:15→16:56)
[2020-06-26] MEDS: ASPIRIN 81 MG PO SCH (09:15)
[2020-06-26] MEDS: METOPROLOL TARTRATE 50 MG TAB PEG/G-TUBE SCH ×3 (09:16→21:58)
[2020-06-26] MEDS: CHOLESTYRAMINE (WITH SUGAR) 4 GM PACKET PEG/G-TUBE SCH (09:16)
[2020-06-26] MEDS: SODIUM CHLORIDE 0.9% 1,000 ML IV SCH ×4 (09:17→21:56)
[2020-06-26] MEDS: levETIRAcetam ORAL SOLN 500 MG/5 ML CUP PEG/G-TUBE SCH (09:17)
[2020-06-26] MEDS: ACETAMINOPHEN ORAL SUSP (PEDS) 3,840 MG/120 ML BOTTLE PEG/G-TUBE PRN ×2 (09:27→16:56)
--- NOTE | 2020-06-26 10:43 | P.PN ---
Subjective Progress Note Date: 06/26/20 Principal diagnosis: PEG tube malfunction Patient had no issues overnight. Tolerating tube feeds at goal. PEG tube functioning appropriately. Breast ultrasound was performed results are still pending. White blood cell count 12.7. Objective - Vital Signs Vital signs: Vital Signs Temp 98.4 F 06/26/20 09:15 Pulse 70 06/26/20 09:15 Resp 18 06/26/20 09:15 BP 108/62 06/26/20 09:15 Pulse Ox 98 06/26/20 09:15 Intake & Output 06/25/20 06/26/20 06/26/20 18:59 06:59 18:59 Intake Total 860 824.829 818.147 Output Total 475 1200 Balance 385 -375.171 818.147 Weight 84.5 kg Intake: IV 20 Invasive Line 1 20 Intake, IV Titration 104.829 98.147 Amount Heparin Sod,Pork in 0.45% 104.829 98.147 NaCl 25,000 unit In 0.45 % NaCl 1 250ml.bag @ 18 UNITS/KG/HR 14.94 mls/hr IV .[id number] [facility] Rx#: [id number] Oral 0 0 Tube Feeding 840 720 720 Output: Urine 475 1200 Other: Voiding Method Indwelling Catheter Indwelling Catheter Indwelling Catheter # Bowel Movements 1 - Exam Left breast with small superficial ulceration upper outer quadrant with some dimpling of the skin, mild induration, mild tenderness Abdomen: Soft, nontender, nondistended, PEG tube in place functioning - Labs CBC & Chem 7: 06/26/20 06:43 06/25/20 08:26 Labs: Abnormal Lab Results - Last 24 Hours (Table) 06/25/20 06/25/20 06/25/20 Range/Units 12:03 15:24 15:24 WBC 12.4 H (3.8-10.6) k/uL Hgb (11.4-16.0) gm/dL MCV 78.8 L (80.0-100.0) fL MCH (25.0-35.0) pg MCHC (31.0-37.0) g/dL RDW 19.5 H (11.5-15.5) % Neutrophils # 9.3 H (1.3-7.7) k/uL PT 13.1 H (9.0-12.0) sec INR 1.3 H (<1.2) APTT (22.0-30.0) sec POC Glucose (mg/dL) 128 H (75-99) mg/dL 06/25/20 06/25/20 06/25/20 Range/Units 17:15 20:12 22:27 WBC (3.8-10.6) k/uL Hgb (11.4-16.0) gm/dL MCV (80.0-100.0) fL MCH (25.0-35.0) pg MCHC (31.0-37.0) g/dL RDW (11.5-15.5) % Neutrophils # (1.3-7.7) k/uL PT (9.0-12.0) sec INR (<1.2) APTT >200.0 H* (22.0-30.0) sec POC Glucose (mg/dL) 142 H 139 H (75-99) mg/dL 06/26/20 06/26/20 06/26/20 Range/Units 01:57 06:09 06:43 WBC 12.7 H (3.8-10.6) k/uL Hgb 11.1 L (11.4-16.0) gm/dL MCV 79.6 L (80.0-100.0) fL MCH 23.8 L (25.0-35.0) pg MCHC 29.9 L (31.0-37.0) g/dL RDW 19.5 H (11.5-15.5) % Neutrophils # 9.3 H (1.3-7.7) k/uL PT (9.0-12.0) sec INR (<1.2) APTT (22.0-30.0) sec POC Glucose (mg/dL) 149 H 146 H (75-99) mg/dL 06/26/20 Range/Units 06:43 WBC (3.8-10.6) k/uL Hgb (11.4-16.0) gm/dL MCV (80.0-100.0) fL MCH (25.0-35.0) pg MCHC (31.0-37.0) g/dL RDW (11.5-15.5) % Neutrophils # (1.3-7.7) k/uL PT (9.0-12.0) sec INR (<1.2) APTT >200.0 H* (22.0-30.0) sec POC Glucose (mg/dL) (75-99) mg/dL Microbiology - Last 24 Hours (Table) 06/24/20 16:40 Blood Culture - Preliminary Blood No Growth after 24 hours 06/24/20 16:26 Blood Culture - Preliminary Blood No Growth after 24 hours 06/24/20 14:15 Urine Culture - Final Urine,Clean Catch Assessment and Plan (1) PEG tube malfunction Narrative/Plan: Continue tube feeds. Await completion of breast ultrasound report. Current Visit: No Status: Acute Code(s): K94.23 - GASTROSTOMY MALFUNCTION SNOMED Code(s): 819959729
[2020-06-26 12:25] LABS: Glucose,Whole Blood 177 mg/dL (75-99)
--- NOTE | 2020-06-26 14:45 | P.PN ---
Subjective Progress Note Date: 06/26/20 Principal diagnosis: Sepsis likely due to urinary tract infection Intravascular volume depletion dehydration A flutter/A. fib with RVR multifactorial due to chronic atrial fibrillation as well as sepsis Multiple strokes nonverbal and noncommunicative Urinary tract infection Malfunctioning unstable PEG tube 06/26/2020, patient seen eval examined during the rounds labs reviewed medications reviewed care plan discussed, patient remains on IV heparin, patient has been tolerating tube feed very well, patient can be resumed on direct oral anticoagulants, 06/25/2020, patient seen eval examined during the rounds labs reviewed medications reviewed care plan discussed, patient remains awake nonverbal and noncommunicative, remains on IV heparin IV antibiotics gently being hydrated, surgical services are following for PEG tube This patient is well-known to me patient has a stroke nonverbal and noncommunicative history of the seizure disorder, chronic history of atrial f ibrillation came into the hospital with tachycardia with heart rate of 130 patient was noted to have been in A. fib with RVR, patient has been started on IV Cardizem with fluid bolus cardiology on consultation, not much data can be obtained from the patient as patient is mute nonverbal and noncommunicative, her prior history significant for dyslipidemia, seizure disorder, hypertension hypertensive cardiovascular disease, patient is on direct oral anticoagulant for chronic atrial fibrillation as well as Cardizem through the PEG tube, along with bronchodilators, also have a significant history of the chronic anemia, rectus sheath hematoma, on arrival she was noted to be febrile with low-grade temperature and WBC count is elevated to 15,000 heart rate was 138 came down to 102 hemodynamic status stable, BUN is elevated with 52 creatinine 0.57, lactic acid level is 2.8, urine appears abnormal with evidence of UTI with large leukocyte is trace moderate WBC clumps, leukocyte esterase positive in addition to fluid boluses and bronchodilator and continuation of home medicine patient has been started on appropriately IV antibiotics with Rocephin patient has a one IV, would recommend and requested the midline to be placed for more stable IV,, surgery has been following for malfunctioning PEG tube also she has a left breast lesion with negative biopsy in February, Objective - Vital Signs Vital signs: Vital Signs Temp 98 F 06/26/20 12:51 Pulse 60 06/26/20 12:51 Resp 18 06/26/20 12:51 BP 94/66 06/26/20 12:51 Pulse Ox 98 06/26/20 12:51 Intake & Output 06/25/20 06/26/20 06/26/20 18:59 06:59 18:59 Intake Total 860 824.829 818.147 Output Total 475 1200 250 Balance 385 -375.171 568.147 Weight 84.5 kg Intake: IV 20 Invasive Line 1 20 Intake, IV Titration 104.829 98.147 Amount Heparin Sod,Pork in 0.45% 104.829 98.147 NaCl 25,000 unit In 0.45 % NaCl 1 250ml.bag @ 18 UNITS/KG/HR 14.94 mls/hr IV .[id number] [facility] Rx#: [id number] Oral 0 0 Tube Feeding 840 720 720 Output: Urine 475 1200 250 Other: Voiding Method Indwelling Catheter Indwelling Catheter Indwelling Catheter # Bowel Movements 1 - Exam Constitutional General appearance: average body habitus, disheveled - EENT Eyes: PERRLA Ears: bilateral: normal - Neck Neck: normal ROM Carotids: bilateral: upstroke normal - Respiratory Respiratory: bilateral: diminished - Cardiovascular Rhythm: irregularly irregular Heart sounds: normal: S1, S2 - Gastrointestinal General gastrointestinal: decreased bowel sounds - Integumentary Integumentary: decreased turgor - Musculoskeletal Musculoskeletal: generalized weakness - Labs CBC & Chem 7: 06/26/20 06:43 06/25/20 08:26 Labs: Abnormal Lab Results - Last 24 Hours (Table) 06/25/20 06/25/20 06/25/20 Range/Units 15:24 15:24 17:15 WBC 12.4 H (3.8-10.6) k/uL Hgb (11.4-16.0) gm/dL MCV 78.8 L (80.0-100.0) fL MCH (25.0-35.0) pg MCHC (31.0-37.0) g/dL RDW 19.5 H (11.5-15.5) % Neutrophils # 9.3 H (1.3-7.7) k/uL PT 13.1 H (9.0-12.0) sec INR 1.3 H (<1.2) APTT (22.0-30.0) sec POC Glucose (mg/dL) 142 H (75-99) mg/dL 06/25/20 06/25/20 06/26/20 Range/Units 20:12 22:27 01:57 WBC (3.8-10.6) k/uL Hgb (11.4-16.0) gm/dL MCV (80.0-100.0) fL MCH (25.0-35.0) pg MCHC (31.0-37.0) g/dL RDW (11.5-15.5) % Neutrophils # (1.3-7.7) k/uL PT (9.0-12.0) sec INR (<1.2) APTT >200.0 H* (22.0-30.0) sec POC Glucose (mg/dL) 139 H 149 H (75-99) mg/dL 06/26/20 06/26/20 06/26/20 Range/Units 06:09 06:43 06:43 WBC 12.7 H (3.8-10.6) k/uL Hgb 11.1 L (11.4-16.0) gm/dL MCV 79.6 L (80.0-100.0) fL MCH 23.8 L (25.0-35.0) pg MCHC 29.9 L (31.0-37.0) g/dL RDW 19.5 H (11.5-15.5) % Neutrophils # 9.3 H (1.3-7.7) k/uL PT (9.0-12.0) sec INR (<1.2) APTT >200.0 H* (22.0-30.0) sec POC Glucose (mg/dL) 146 H (75-99) mg/dL 06/26/20 Range/Units 12:18 WBC (3.8-10.6) k/uL Hgb (11.4-16.0) gm/dL MCV (80.0-100.0) fL MCH (25.0-35.0) pg MCHC (31.0-37.0) g/dL RDW (11.5-15.5) % Neutrophils # (1.3-7.7) k/uL PT (9.0-12.0) sec INR (<1.2) APTT (22.0-30.0) sec POC Glucose (mg/dL) 177 H (75-99) mg/dL Microbiology - Last 24 Hours (Table) 06/24/20 16:40 Blood Culture - Preliminary Blood No Growth after 24 hours 06/24/20 16:26 Blood Culture - Preliminary Blood No Growth after 24 hours 06/24/20 14:15 Urine Culture - Final Urine,Clean Catch Assessment and Plan Assessment: Sepsis likely due to urinary tract infection Intravascular volume depletion dehydration A flutter/A. fib with RVR multifactorial due to chronic atrial fibrillation as well as sepsis Multiple strokes nonverbal and noncommunicative Urinary tract infection Malfunctioning unstable PEG tube Plan: Continue IV Rocephin For fluid boluses as tolerated per protocol IV heparin can be switched to direct oral anticoagulants Continue home medications Further plan of care as per clinical response of the patient Malfunctioning PEG tube status post change as per surgical services Left breast lesion evaluation per surgical services Time with Patient: Greater than 30
--- NOTE | 2020-06-26 15:54 | P.PN ---
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 She used to follow with Dr. Craig, has not been seen in the office since March 2017. We have been asked to see in consultation for atrial fibrillation with RVR. Patient sent from [facility] after finding the patient's heart rate in the 130s. Patient is seen and examined at bedside, no acute distress. Patient is a poor historian, She is nonverbal. EKG revealed atrial fibrillation HR 140s. Patient given cardizem 10mg Bolus, then started on cardizem drip 5mg Hr. Laboratory data reviewed, Troponin 0.049-->0.53-->0.53, WBC 15.3, hemoglobin 13.1, platelets 366, sodium 145, potassium 4.7, serum creatinine 0.57, TSH within normal limits, COVID-19 negative, AST 48, ALT 36, Alk Phos 152. Chest xray revealed dual-lead pacemaker, mild patchy opacities vascular congestion vs infilatrates mild. Current home cardiac medications include Cardizem 30mg TID, metoprolol titrate 100 mg twice daily, Lasix 40 mg twice a day, Eliquis 2.5 mg twice a day, pravastatin 40 mg nightly, aspirin 81 mg daily. 06/25 Patient seen and examined. Patient denies any chest pain or pressure. Denies any shortness breath. Patient was placed on a Cardizem drip, currently at 5. Currently patient is in sinus rhythm with controlled ventricular rates. 06/26 Patient seen and examined. Patient resting comfortably. No acute events. Cardizem drip has been turned off. REVIEW OF SYSTEMS At the time of my exam: Patient gives limited answers yes, no. She states no shortness breath, chest pain or pressure. PHYSICAL EXAMINATION CONSTITUTIONAL: No apparent distress, chronically ill-appearing, PEG tube HEENT: Head is normocephalic. Pupils are equal, round. Sclerae anicteric. Mucous membranes of the mouth are moist. No JVD. No carotid bruit. CHEST EXAMINATION: Lungs are clear to auscultation. No chest wall tenderness is noted on palpation or with deep breathing. HEART EXAMINATION: Regular rate and rhythm. S1, S2 heard. mitral click heard. No murmurs, gallops or rub. ABDOMEN: Soft, nontender. Positive bowel sounds. EXTREMITIES: 2+ peripheral pulses, no lower extremity edema and no calf tenderness. NEUROLOGIC EXAMINATION: Patient is awake ,nonverbal, not oriented. ASSESSMENT Paroxysmal atrial fibrillation (on Eliquis) - [id number] score 6, early sinus rhythm Elevated troponin, most likely due to a fib with RVR. Rheumatic mitral stenosis status post mechanical mitral valve replacement in 2000. Patient was on coumadin, however she is now on Eliquis, Unsure of when this was changed or why. Sick sinus syndrome status post pacemaker History of stroke (with left sided paralysis) Dysphagia s/p PEG tube placement Chronic respiratory failure s/p tracheostomy tube PLAN - Patient currently back in normal sinus rhythm. Continue with metoprolol 100mg TID - Patient scheduled for PEG tube replacement on Saturday. Continue heparin drip and patient may be bridged around the time of surgery however would limit time o ff of anticoagulation given mechanical mitral valve. Objective - Vital Signs Vital signs: Vital Signs Temp 98 F 06/26/20 12:51 Pulse 60 06/26/20 12:51 Resp 18 06/26/20 14:00 BP 94/66 06/26/20 12:51 Pulse Ox 98 06/26/20 12:51 Intake & Output 06/25/20 06/26/20 06/26/20 18:59 06:59 18:59 Intake Total 860 824.829 818.147 Output Total 475 1200 250 Balance 385 -375.171 568.147 Weight 84.5 kg Intake: IV 20 Invasive Line 1 20 Intake, IV Titration 104.829 98.147 Amount Heparin Sod,Pork in 0.45% 104.829 98.147 NaCl 25,000 unit In 0.45 % NaCl 1 250ml.bag @ 18 UNITS/KG/HR 14.94 mls/hr IV .[id number] [facility] Rx#: [id number] Oral 0 0 Tube Feeding 840 720 720 Output: Urine 475 1200 250 Other: Voiding Method Indwelling Catheter Indwelling Catheter Indwelling Catheter # Bowel Movements 1 - Labs CBC & Chem 7: 06/26/20 06:43 06/25/20 08:26 Labs: Abnormal Lab Results - Last 24 Hours (Table) 06/25/20 06/25/20 06/25/20 Range/Units 15:24 15:24 17:15 WBC 12.4 H (3.8-10.6) k/uL Hgb (11.4-16.0) gm/dL MCV 78.8 L (80.0-100.0) fL MCH (25.0-35.0) pg MCHC (31.0-37.0) g/dL RDW 19.5 H (11.5-15.5) % Neutrophils # 9.3 H (1.3-7.7) k/uL PT 13.1 H (9.0-12.0) sec INR 1.3 H (<1.2) APTT (22.0-30.0) sec POC Glucose (mg/dL) 142 H (75-99) mg/dL 06/25/20 06/25/20 06/26/20 Range/Units 20:12 22:27 01:57 WBC (3.8-10.6) k/uL Hgb (11.4-16.0) gm/dL MCV (80.0-100.0) fL MCH (25.0-35.0) pg MCHC (31.0-37.0) g/dL RDW (11.5-15.5) % Neutrophils # (1.3-7.7) k/uL PT (9.0-12.0) sec INR (<1.2) APTT >200.0 H* (22.0-30.0) sec POC Glucose (mg/dL) 139 H 149 H (75-99) mg/dL 06/26/20 06/26/20 06/26/20 Range/Units 06:09 06:43 06:43 WBC 12.7 H (3.8-10.6) k/uL Hgb 11.1 L (11.4-16.0) gm/dL MCV 79.6 L (80.0-100.0) fL MCH 23.8 L (25.0-35.0) pg MCHC 29.9 L (31.0-37.0) g/dL RDW 19.5 H (11.5-15.5) % Neutrophils # 9.3 H (1.3-7.7) k/uL PT (9.0-12.0) sec INR (<1.2) APTT >200.0 H* (22.0-30.0) sec POC Glucose (mg/dL) 146 H (75-99) mg/dL 06/26/20 Range/Units 12:18 WBC (3.8-10.6) k/uL Hgb (11.4-16.0) gm/dL MCV (80.0-100.0) fL MCH (25.0-35.0) pg MCHC (31.0-37.0) g/dL RDW (11.5-15.5) % Neutrophils # (1.3-7.7) k/uL PT (9.0-12.0) sec INR (<1.2) APTT (22.0-30.0) sec POC Glucose (mg/dL) 177 H (75-99) mg/dL Microbiology - Last 24 Hours (Table) 06/24/20 16:40 Blood Culture - Preliminary Blood No Growth after 24 hours 06/24/20 16:26 Blood Culture - Preliminary Blood No Growth after 24 hours 06/24/20 14:15 Urine Culture - Final Urine,Clean Catch
[2020-06-26] MEDS: MULTIVITAMINS, THERA LIQUID 237 ML BOTTLE PEG/G-TUBE SCH (16:56)
[2020-06-26] MEDS: FERROUS SULFATE ORAL ELIXIR 300 MG/5 ML CUP PEG/G-TUBE SCH (16:56)
[2020-06-26] MEDS: LORATADINE 10 MG TAB PEG/G-TUBE SCH (16:56)
[2020-06-26] MEDS: HEPARIN SOD,PORK IN 0.45% NACL 25,000 UNIT in 0.45% NACL 1 250ML.BAG IV SCH (17:20)
[2020-06-26 17:23] LABS: Glucose,Whole Blood 154 mg/dL (75-99)
[2020-06-26] MEDS: NON FORMULARY DRUG (Liquacel 30 ML) PEG/G-TUBE SCH (17:27)
--- NOTE | 2020-06-26 19:45 | P.PN ---
Progress Note - Text Progress Note Date: 06/26/20 Presenting complaint: Malfunctioning PEG tube Hospital course: Admitted with a malfunctioning PEG tube. It was repositioned. Now functioning. Other medical issues include paroxysmal atrial fibrillation with eliquis, hypertension, mechanical mitral valve replacement 2000, pacemaker for sick sinus syndrome, stroke with left-sided paralysis, dysphagia. Patient initially had a heart rate 130s. With atrial fibrillation. Received IV Cardizem bolus. Then a drip. Patient at the baseline is noncommunicative. Nonverbal. Today: Laying in bed. 2 feeding at 60 mL an hour. Patient appears comfortable. Review of systems: Patient nonverbal Active Medications Acetaminophen (Acetaminophen Oral Susp (Peds) 3,840 Mg/120 Ml Bottle) 650 mg PEG/G-TUBE Q6H PRN PRN Reason: Fever and/ or Pain Last Admin: 06/26/20 16:56 Dose: 650 mg Documented by: Albuterol/Ipratropium (Ipratropium-Albuterol 3 Ml Neb) 3 ml INHALATION RT-Q6H PRN PRN Reason: Shortness Of Breath Aspirin (Aspirin 81 Mg) 81 mg PO DAILY [facility] Last Admin: 06/26/20 09:15 Dose: 81 mg Documented by: Bisacodyl (Bisacodyl 10 Mg Supp) 10 mg RECTAL DAILY PRN PRN Reason: Constipation Cholestyramine Resin (Cholestyramine (With Sugar) 4 Gm Packet) 4 gm PEG/G-TUBE DAILY@0800 [facility] Last Admin: 06/26/20 09:16 Dose: 4 gm Documented by: Diltiazem HCl (Diltiazem Oral 30 Mg Tab) 30 mg PO 0600,1800 [facility] Last Admin: 06/26/20 16:56 Dose: 30 mg Documented by: Ferrous Sulfate (Ferrous Sulfate Oral Elixir 300 Mg/5 Ml Cup) 300 mg PEG/G-TUBE DAILY@1700 [facility] Last Admin: 06/26/20 16:56 Dose: 300 mg Documented by: Furosemide (Furosemide 40 Mg Tab) 40 mg PEG/G-TUBE BID@0800,1700 [facility] Last Admin: 06/26/20 16:56 Dose: 40 mg Documented by: Gabapentin (Gabapentin 100 Mg Cap) 200 mg PEG/G-TUBE TID@0600,1400,2100 [facility] Last Admin: 06/26/20 12:52 Dose: 200 mg Documented by: Gabapentin (Gabapentin 300 Mg Cap) 300 mg PEG/G-TUBE TID@0600,1400,2100 [facility] Last Admin: 06/26/20 12:52 Dose: 300 mg Documented by: Heparin Sodium (Porcine) (Heparin Sodium 1,000 Un/Ml (10ml Vl)) 0 unit IV PER PROTOCOL PRN; Protocol PRN Reason: Low PTT Hydroxyzine HCl (Hydroxyzine Hcl 25 Mg Tab) 25 mg PEG/G-TUBE TID@0600,1400,2200 [facility] Last Admin: 06/26/20 12:53 Dose: 25 mg Documented by: Sodium Chloride (Saline 0.9%) 1,000 mls @ 100 mls/hr IV .Q10H [facility] Last Admin: 06/26/20 09:17 Dose: 100 mls/hr Documented by: Ceftriaxone Sodium 1 gm/ (Sodium Chloride) 50 mls @ 100 mls/hr IVPB Q12HR [facility] Last Admin: 06/26/20 09:16 Dose: 100 mls/hr Documented by: Heparin Sodium/Sodium Chloride (25,000 unit/ Sodium Chloride) 250 mls @ 14.94 mls/hr IV .[id number] [facility]; Protocol Last Titration: 06/26/20 17:25 Dose: 12 units/kg/hr, 9.96 mls/hr Documented by: Insulin Aspart (Insulin Aspart (Novolog) 100 Unit/Ml Vial) 0 unit SQ ACHS [facility]; Protocol Last Admin: 06/26/20 18:18 Dose: 1 unit Documented by: Insulin Detemir (Insulin Detemir (Levemir) 100 Unit/Ml Syr) 48 unit SQ HS@2130 [facility] Last Admin: 06/25/20 21:23 Dose: 48 unit Documented by: Iron/Minerals/Multivitamins (Multivitamins, Thera Liquid 237 Ml Bottle) 5 ml PEG/G-TUBE DAILY@1700 [facility] Last Admin: 06/26/20 16:56 Dose: 5 ml Documented by: Levetiracetam (Levetiracetam Oral Soln 500 Mg/5 Ml Cup) 100 mg PEG/G-TUBE DAILY@0800 [facility] Last Admin: 06/26/20 09:17 Dose: 100 mg Documented by: Loratadine (Loratadine 10 Mg Tab) 10 mg PEG/G-TUBE DAILY@1700 [facility] Last Admin: 06/26/20 16:56 Dose: 10 mg Documented by: Magnesium Hydroxide (Magnesium Hydroxide 2,400 Mg/10 Ml Cup) 2,400 mg PEG/G- TUBE DAILY PRN PRN Reason: Constipation Metoprolol Tartrate (Metoprolol Tartrate 50 Mg Tab) 100 mg PEG/G-TUBE TID [facility] Last Admin: 06/26/20 16:56 Dose: 100 mg Documented by: Metronidazole (Metronidazole 0.75% Cream 45 Gm Tube) 1 applic TOPICAL DAILY [facility] Last Admin: 06/26/20 09:17 Dose: 1 applic Documented by: Multi-Ingred Cream/Lotion/Oil/Oint (Hydrophilic Cream 180 Gm Tube) 1 applic TOPICAL HS [facility] Last Admin: 06/25/20 21:43 Dose: 1 applic Documented by: Nitroglycerin (Nitroglycerin Sl Tabs 0.4 Mg Tab) 0.4 mg SUBLINGUAL Q5M PRN PRN Reason: Chest Pain Non-Formulary Medication (Liquacel) 30 ml PEG/G-TUBE DAILY@0800 [facility] Last Admin: 06/26/20 17:27 Dose: Not Given Documented by: Pravastatin Sodium (Pravastatin Sodium 40 Mg Tab) 40 mg PO [facility] Last Admin: 06/25/20 21:22 Dose: 40 mg Documented by: Sodium Biphosphate/Sodium Phosphate (Na Phos,M-B/Na Phos,Di-Ba 133 Ml Enema) 133 ml RECTAL DAILY PRN PRN Reason: Constipation On examination: VITAL SIGNS: 98.3, 76, 16, 111/59, 98% room air GENERAL APPEARANCE: BMI 30.1, laying in bed, comfortable HEENT: Normal external appearance of nose and ear. Oral cavity dry EYES: Pupils equal. Conjunctiva normal. NECK: JVD not raised. Mass not palpable. RESPIRATORY: Respiratory effort normal. Lungs clear to auscultation. CARDIOVASCULAR: First and second sounds normal. No edema. Extremities: Boots in both legs. ABDOMEN: Soft. Liver and spleen not palpable. No tenderness. No mass palpable. PSYCHIATRY: Unable to assess NEUROLOGICAL: No facial asymmetry. Doesn't really follow commands. INVESTIGATIONS, reviewed in the clinical context: WBC 12.7 hemoglobin 11.1 platelet is 279 Assessment and plan: -Paroxysmal atrial fibrillation, currently sinus rhythm -Troponin anemia likely from atrial fibrillation with a rapid rate. Not acute coronary syndrome -Mechanical mitral valve from 2000 for rheumatic mitral stenosis On [facility] currently held -Permanent pacemaker for sick sinus syndrome -Chronic dysphagia for which patient has a PEG tube Patient nothing by mouth -Malfunctioning PEG tube currently now functioning 2 feeding at 60 mL an hour. -Chronic medical debility Needs assistance with all ADLs -Left hemiparesis from prior stroke/subarachnoid hemorrhage Needs assistance with ADLs -Urinary bladder chronic incontinence Gross catheter -Coronary artery disease with stent Aspirin, Cardizem, Lopressor, Pravachol -Diabetes mellitus type 2, chronically on insulin Follow Accu-Cheks -IV heparin monitoring Patient scheduled for a PEG tube tomorrow. The current PEG tube is functioning. Patient can be discharged back to [facility]. Other medications to continue.
--- NOTE | 2020-06-26 19:48 | PN ---
PROGRESS NOTE DATE OF SERVICE: 06/26/2020 REASON FOR FOLLOWUP: A urinary tract infection. INTERVAL HISTORY: The patient is currently afebrile. The patient is currently more awake and alert. She is breathing comfortably. No chest pain or cough. No vomiting or diarrhea has been reported. PHYSICAL EXAMINATION: VITAL SIGNS: Blood pressure 111/59, pulse of 73, temperature 98.2. She is 98% on room air. GENERAL DESCRIPTION: An elderly female lying in bed in no distress. RESPIRATORY SYSTEM: Unlabored breathing, clear to auscultation anteriorly. HEART: S1, S2. Regular rate and rhythm. ABDOMEN: Soft, no tenderness. LABS: Hemoglobin is 11.1, white count 12.7. Repeat urine is so far negative. Blood culture negative. DIAGNOSTIC IMPRESSION AND PLAN: Patient admitted to the hospital with atrial fibrillation with RVR. Did have positive UA and concern for a Gross catheter associated UTI. The patient is currently covered with Rocephin while waiting for the culture to finalize and monitor clinical course closely. MMODL / IJN: [id number] /
[2020-06-26 19:57] LABS: Glucose,Whole Blood 155 mg/dL (75-99)
[2020-06-26] MEDS: INSULIN DETEMIR (LEVEMIR) 100 UNIT/ML SYR SQ SCH (21:58)
[2020-06-26] MEDS: PRAVASTATIN SODIUM 40 MG TAB PO SCH (21:58)
[2020-06-26] MEDS: HYDROPHILIC CREAM 180 GM TUBE TOPICAL SCH (21:58)
[2020-06-27 03:27] LABS: Glucose,Whole Blood 109 mg/dL (75-99)
[2020-06-27] MEDS: GABAPENTIN 100 MG CAP PEG/G-TUBE SCH ×3 (05:48→21:54)
[2020-06-27] MEDS: GABAPENTIN 300 MG CAP PEG/G-TUBE SCH ×3 (05:48→21:55)
[2020-06-27] MEDS: DILTIAZEM ORAL 30 MG TAB PO SCH ×2 (05:48→15:14)
[2020-06-27] MEDS: hydrOXYzine HCL 25 MG TAB PEG/G-TUBE SCH (05:49)
[2020-06-27 05:54] LABS: Glucose,Whole Blood 113 mg/dL (75-99)
[2020-06-27] MEDS: INSULIN ASPART (NovoLOG) 100 UNIT/ML VIAL SQ SCH ×4 (06:00→21:56)
[2020-06-27 07:55] LABS: Anisocytosis Slight; Basophils # (A) 0.1 k/uL (0-0.2); Basophils % (A) 1 %; Eosinophils # (A) 0.4 k/uL (0-0.7); Eosinophils % (A) 4 %; HCT 37.3 % (34.0-46.0); HGB 11.3 gm/dL (11.4-16.0); Hypochromasia Marked; Lymphocytes # (A) 1.7 k/uL (1.0-4.8); Lymphocytes % (A) 15 %; MCH 23.8 pg (25.0-35.0); MCHC 30.3 g/dL (31.0-37.0); MCV 78.6 fL (80.0-100.0); Mean Platelet Volume 7.9; Microcytosis Slight; Monocytes # (A) 0.5 k/uL (0-1.0); Monocytes % (A) 5 %; Neutrophils # (A) 8.7 k/uL (1.3-7.7); Neutrophils % (A) 76 %; Platelet Count 231 k/uL (150-450); RBC 4.74 m/uL (3.80-5.40); RDW 19.7 % (11.5-15.5); WBC 11.5 k/uL (3.8-10.6)
[2020-06-27 08:05] LABS: African American GFR (CKD) >90 (>60 ml/min/1.73 sqM); Anion Gap 3 mmol/L; Blood Urea Nitrogen 28 mg/dL (7-17); Calcium 8.9 mg/dL (8.4-10.2); Carbon Dioxide 30 mmol/L (22-30); Chloride 106 mmol/L (98-107); Glucose 108 mg/dL (74-99); Non-African American GFR(CKD) >90 (>60 ml/min/1.73 sqM); Potassium 4.4 mmol/L (3.5-5.1); Sodium 139 mmol/L (137-145)
[2020-06-27 08:10] LABS: INR 0.9 (<1.2); Prothrombin Time 10.1 sec (9.0-12.0)
--- NOTE | 2020-06-27 08:13 | USB ---
Reason for exam: clinical finding. History: Patient is postmenopausal and has history of breast cancer at age 64. Lumpectomy of the left breast, 2010. Cancelled Right Mammotome of the right breast, March 17, 2008. Benign stereotactic core biopsy of the left breast, March 04, 1998. US Breast Limited LT Technologist: Keysha Urbina Left limited breast ultrasound including focal area of concern, retroareolar and axilla demonstrates a 0.9cm area of concern at 12 o'clock. Improved appearance consistent with prior, correlate for history of infection. ASSESSMENT: Probably benign, BI-RAD 3 RECOMMENDATION: Ultrasound of the left breast in 1 month. (1-2 months) Manage patient on a clinical basis.
[2020-06-27] MEDS: HEPARIN SOD,PORK IN 0.45% NACL 25,000 UNIT in 0.45% NACL 1 250ML.BAG IV SCH ×2 (08:32→15:07)
[2020-06-27] MEDS: SODIUM CHLORIDE 0.9% 1,000 ML IV SCH ×2 (08:32→15:07)
[2020-06-27] MEDS: METOPROLOL TARTRATE 50 MG TAB PEG/G-TUBE SCH ×3 (08:39→21:54)
[2020-06-27] MEDS: FUROSEMIDE 40 MG TAB PEG/G-TUBE SCH ×2 (08:39→15:14)
[2020-06-27] MEDS: ASPIRIN 81 MG PO SCH (08:39)
[2020-06-27] MEDS: CHOLESTYRAMINE (WITH SUGAR) 4 GM PACKET PEG/G-TUBE SCH (08:39)
[2020-06-27] MEDS: NON FORMULARY DRUG (Liquacel 30 ML) PEG/G-TUBE SCH (08:40)
[2020-06-27] MEDS: levETIRAcetam ORAL SOLN 500 MG/5 ML CUP PEG/G-TUBE SCH (08:40)
--- NOTE | 2020-06-27 11:26 | P.PN ---
Subjective Progress Note Date: 06/27/20 Principal diagnosis: Sepsis likely due to urinary tract infection Intravascular volume depletion dehydration A flutter/A. fib with RVR multifactorial due to chronic atrial fibrillation as well as sepsis Multiple strokes nonverbal and noncommunicative Urinary tract infection Malfunctioning unstable PEG tube 06/27/2020, patient seen and evaluated examined during the rounds he remains on room air breathing Petrin is variable however oxygen saturation stable, once PEG tube is working functioning well can be switched back to oral direct anticoagulant at bedtime heparin can be discontinued, agree with discharge planning 06/26/2020, patient seen eval examined during the rounds labs reviewed medications reviewed care plan discussed, patient remains on IV heparin, patient has been tolerating tube feed very well, patient can be resumed on direct oral anticoagulants, 06/25/2020, patient seen eval examined during the rounds labs reviewed medications reviewed care plan discussed, patient remains awake nonverbal and noncommunicative, remains on IV heparin IV antibiotics gently being hydrated, surgical services are following for PEG tube This patient is well-known to me patient has a stroke nonverbal and noncommunicative history of the seizure disorder, chronic history of atrial fibrillation came into the hospital with tachycardia with heart rate of 130 patient was noted to have been in A. fib with RVR, patient has been started on IV Cardizem with fluid bolus cardiology on consultation, not much data can be obtained from the patient as patient is mute nonverbal and noncommunicative, her prior history significant for dyslipidemia, seizure disorder, hypertension hypertensive cardiovascular disease, patient is on direct oral anticoagulant for chronic atrial fibrillation as well as Cardizem through the PEG tube, along with bronchodilators, also have a significant history of the chronic anemia, rectus sheath hematoma, on arrival she was noted to be febrile with low-grade temperature and WBC count is elevated to 15,000 heart rate was 138 came down to 102 hemodynamic status stable, BUN is elevated with 52 creatinine 0.57, lactic acid level is 2.8, urine appears abnormal with evidence of UTI with large leukocyte is trace moderate WBC clumps, leukocyte esterase positive in addition to fluid boluses and bronchodilator and continuation of home medicine patient has been started on appropriately IV antibiotics with Rocephin patient has a one IV, would recommend and requested the midline to be placed for more stable IV,, surgery has been following for malfunctioning PEG tube also she has a left breast lesion with negative biopsy in February, Objective - Vital Signs Vital signs: Vital Signs Temp 98.6 F 06/27/20 11:23 Pulse 64 06/27/20 11:23 Resp 18 06/27/20 11:23 BP 132/61 06/27/20 08:00 Pulse Ox 97 06/27/20 11:23 Intake & Output 06/26/20 06/27/20 06/27/20 18:59 06:59 18:59 Intake Total 922.425 4960.796 Output Total 476 651 1 Balance 390.001 422.796 -1 Weight 86.7 kg Intake: Intake, IV Titration 146.001 233.796 Amount Heparin Sod,Pork in 0.45% 146.001 133.796 NaCl 25,000 unit In 0.45 % NaCl 1 250ml.bag @ 18 UNITS/KG/HR 14.94 mls/hr IV .[id number] [facility] Rx#: [id number] cefTRIAXone 1 gm In 100 Sodium Chloride 0.9% 50 ml @ 100 mls/hr IVPB Q12HR [facility] Rx#:[id number] Oral 0 Tube Feeding 720 840 Output: Urine 475 650 Stool 1 1 1 Other: Voiding Method Indwelling Catheter Indwelling Catheter Indwelling Catheter # Bowel Movements 1 - Exam Constitutional General appearance: average body habitus, disheveled - EENT Eyes: PERRLA Ears: bilateral: normal - Neck Neck: normal ROM Carotids: bilateral: upstroke normal - Respiratory Respiratory: bilateral: diminished - Cardiovascular Rhythm: irregularly irregular Heart sounds: normal: S1, S2 - Gastrointestinal General gastrointestinal: decreased bowel sounds - Integumentary Integumentary: decreased turgor - Musculoskeletal Musculoskeletal: generalized weakness - Labs CBC & Chem 7: 06/27/20 07:24 06/27/20 07:24 Labs: Abnormal Lab Results - Last 24 Hours (Table) 06/26/20 06/26/20 06/26/20 Range/Units 12:18 16:00 16:50 WBC (3.8-10.6) k/uL Hgb (11.4-16.0) gm/dL MCV (80.0-100.0) fL MCH (25.0-35.0) pg MCHC (31.0-37.0) g/dL RDW (11.5-15.5) % Neutrophils # (1.3-7.7) k/uL APTT 45.4 H (22.0-30.0) sec BUN (7-17) mg/dL Creatinine (0.52-1.04) mg/dL Glucose (74-99) mg/dL POC Glucose (mg/dL) 177 H (75-99) mg/dL Stool Occult Blood Positive H (Negative) 06/26/20 06/26/20 06/27/20 Range/Units 17:22 19:53 03:25 WBC (3.8-10.6) k/uL Hgb (11.4-16.0) gm/dL MCV (80.0-100.0) fL MCH (25.0-35.0) pg MCHC (31.0-37.0) g/dL RDW (11.5-15.5) % Neutrophils # (1.3-7.7) k/uL APTT (22.0-30.0) sec BUN (7-17) mg/dL Creatinine (0.52-1.04) mg/dL Glucose (74-99) mg/dL POC Glucose (mg/dL) 154 H 155 H 109 H (75-99) mg/dL Stool Occult Blood (Negative) 06/27/20 06/27/20 06/27/20 Range/Units 05:52 07:24 07:24 WBC 11.5 H (3.8-10.6) k/uL Hgb 11.3 L (11.4-16.0) gm/dL MCV 78.6 L (80.0-100.0) fL MCH 23.8 L (25.0-35.0) pg MCHC 30.3 L (31.0-37.0) g/dL RDW 19.7 H (11.5-15.5) % Neutrophils # 8.7 H (1.3-7.7) k/uL APTT (22.0-30.0) sec BUN 28 H (7-17) mg/dL Creatinine 0.46 L (0.52-1.04) mg/dL Glucose 108 H (74-99) mg/dL POC Glucose (mg/dL) 113 H (75-99) mg/dL Stool Occult Blood (Negative) Microbiology - Last 24 Hours (Table) 05/14/21 16:40 Blood Culture - Preliminary Blood No Growth after 48 hours 06/24/20 16:26 Blood Culture - Preliminary Blood No Growth after 48 hours 06/24/20 14:15 Urine Culture - Preliminary Urine,Clean Catch Yeast species Assessment and Plan Assessment: Sepsis likely due to urinary tract infection Intravascular volume depletion dehydration A flutter/A. fib with RVR multifactorial due to chronic atrial fibrillation as well as sepsis Multiple strokes nonverbal and noncommunicative Urinary tract infection Malfunctioning unstable PEG tube Plan: Continue IV Rocephin For fluid boluses as tolerated per protocol IV heparin can be switched to direct oral anticoagulants Continue home medications Further plan of care as per clinical response of the patient Malfunctioning PEG tube status post change as per surgical services Left breast lesion evaluation per surgical services Time with Patient: Greater than 30
[2020-06-27 11:40] LABS: Glucose,Whole Blood 91 mg/dL (75-99)
[2020-06-27] MEDS ORDERED: FLUCONAZOLE 100 MG TAB PO ONE (11:42)
--- NOTE | 2020-06-27 13:16 | PN ---
PROGRESS NOTE DATE OF SERVICE: 06/27/2020 REASON FOR FOLLOWUP: Recurrent urinary tract infection. INTERVAL HISTORY: The patient is currently afebrile. The patient remains to be lethargic, though slightly awake. Did not answer any questions though. No diarrhea or any other changes reported by nursing staff. PHYSICAL EXAMINATION: Blood pressure is 132/61, pulse of 60, temperature 97.9. She is 99% on room air. General description is an elderly female lying in bed in no distress. RESPIRATORY SYSTEM: Unlabored breathing, clear to auscultation anteriorly. HEART: S1, S2. Regular rate and rhythm. ABDOMEN: Soft, no tenderness. EXTREMITIES: No edema of the feet. LABS: Hemoglobin is 11.3, white count 11.5, BUN of 28, creatinine 0.46. Urine showing yeast species. DIAGNOSTIC IMPRESSION AND PLAN: Patient admitted to the hospital with palpitation in this patient did have a chronic indwelling Gross catheter, culture now showing yeast species. White count slightly elevated. Will add Diflucan short course and monitor clinical course closely. MMODL / IJN: [id number] /
--- NOTE | 2020-06-27 13:35 | P.PN ---
Subjective Progress Note Date: 06/27/20 CHIEF COMPLAINT: Possible malfunctioning PEG tube HISTORY OF PRESENT ILLNESS: Surgical service is following regards to patient's questionable malfunctioning PEG tube and left breast lesion. The KUB x-ray shows of the gastrostomy tube is in good position in the stomach. Patient was tolerating tube feedings over the weekend. There is no need for replacement of the PEG tube. PEG tube is functioning appropriately. Her left breast lesion shows probable benign BIRADS 3 and recommendations include repeat ultrasound of the left breast in 1 month. Afebrile WBC 11.5 hemoglobin 11.3 creatinine 0.46 Patient seen and examined with Dr. feliz PHYSICAL EXAM: VITAL SIGNS: Reviewed. GENERAL: Well-developed in no acute distress. HEENT: No sclera icterus. Extraocular movements grossly intact. Moist buccal mucosa. Head is atraumatic, normocephalic. ABDOMEN: Soft. Nondistended. PEG tube site clean dry and intact NEUROLOGIC: Alert and oriented. Nonverbal Breast: Small superficial ulceration in the upper left quadrant of left breast. Mild tenderness with palpation. no drainage ASSESSMENT: 1. Malfunctioning PEG tube: PEG tube is functioning appropriately. It is in the correct position. 2. Left breast lesion with known history of left breast cancer. Her last left breast lesion biopsy in February was negative for malignancy PLAN: -Tube feedings can be restarted -No surgical intervention planned on PEG tube -Continue supportive care Physician Auto Roller note has been reviewed by physician. Signing provider agrees with the documented findings, assessment, and plan of care. Objective - Vital Signs Vital signs: Vital Signs Temp 98.6 F 06/27/20 11:23 Pulse 64 06/27/20 12:27 Resp 18 06/27/20 12:27 BP 132/61 06/27/20 08:00 Pulse Ox 97 06/27/20 11:23 Intake & Output 06/26/20 06/27/20 06/27/20 18:59 06:59 18:59 Intake Total 038.559 1946.796 0 Output Total 476 651 2 Balance 390.001 422.796 -2 Weight 86.7 kg Intake: Intake, IV Titration 146.001 233.796 0 Amount Heparin Sod,Pork in 0.45% 146.001 133.796 0 NaCl 25,000 unit In 0.45 % NaCl 1 250ml.bag @ 18 UNITS/KG/HR 14.94 mls/hr IV .[id number] [facility] Rx#: [id number] cefTRIAXone 1 gm In 100 Sodium Chloride 0.9% 50 ml @ 100 mls/hr IVPB Q12HR [facility] Rx#:[id number] Oral 0 Tube Feeding 720 840 Output: Urine 475 650 Stool 1 1 2 Other: Voiding Method Indwelling Catheter Indwelling Catheter Indwelling Catheter # Bowel Movements 1 - Labs CBC & Chem 7: 06/27/20 07:24 06/27/20 07:24 Labs: Abnormal Lab Results - Last 24 Hours (Table) 06/26/20 06/26/20 06/26/20 Range/Units 16:00 16:50 17:22 WBC (3.8-10.6) k/uL Hgb (11.4-16.0) gm/dL MCV (80.0-100.0) fL MCH (25.0-35.0) pg MCHC (31.0-37.0) g/dL RDW (11.5-15.5) % Neutrophils # (1.3-7.7) k/uL APTT 45.4 H (22.0-30.0) sec BUN (7-17) mg/dL Creatinine (0.52-1.04) mg/dL Glucose (74-99) mg/dL POC Glucose (mg/dL) 154 H (75-99) mg/dL Stool Occult Blood Positive H (Negative) 06/26/20 06/27/20 06/27/20 Range/Units 19:53 03:25 05:52 WBC (3.8-10.6) k/uL Hgb (11.4-16.0) gm/dL MCV (80.0-100.0) fL MCH (25.0-35.0) pg MCHC (31.0-37.0) g/dL RDW (11.5-15.5) % Neutrophils # (1.3-7.7) k/uL APTT (22.0-30.0) sec BUN (7-17) mg/dL Creatinine (0.52-1.04) mg/dL Glucose (74-99) mg/dL POC Glucose (mg/dL) 155 H 109 H 113 H (75-99) mg/dL Stool Occult Blood (Negative) 06/27/20 06/27/20 Range/Units 07:24 07:24 WBC 11.5 H (3.8-10.6) k/uL Hgb 11.3 L (11.4-16.0) gm/dL MCV 78.6 L (80.0-100.0) fL MCH 23.8 L (25.0-35.0) pg MCHC 30.3 L (31.0-37.0) g/dL RDW 19.7 H (11.5-15.5) % Neutrophils # 8.7 H (1.3-7.7) k/uL APTT (22.0-30.0) sec BUN 28 H (7-17) mg/dL Creatinine 0.46 L (0.52-1.04) mg/dL Glucose 108 H (74-99) mg/dL POC Glucose (mg/dL) (75-99) mg/dL Stool Occult Blood (Negative) Microbiology - Last 24 Hours (Table) 06/24/20 16:40 Blood Culture - Preliminary Blood No Growth after 48 hours 06/24/20 16:26 Blood Culture - Preliminary Blood No Growth after 48 hours 06/24/20 14:15 Urine Culture - Preliminary Urine,Clean Catch Yeast species
--- NOTE | 2020-06-27 13:54 | P.PN ---
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 She used to follow with Dr. Craig, has not been seen in the office since March 2017. We have been asked to see in consultation for atrial fibrillation with RVR. Patient sent from extended care facility after finding the patient's heart rate in the 130s. 06/27/2020 Pt is seen and examined in no acute distress. PEG tube replacement has been cancelled. She continues to be on heparin infusion. Blood pressure 132/61 heart rate 64 afebrile and maintaining oxygen saturation on room air. Laboratory data reviewed, WBC 11.5, hgb 11.3, plt 231, sodium 139, potassium 4.4, creatinine 0.46. GENERAL: Well-appearing, well-nourished and in no acute distress. NECK: Supple without JVD or thyromegaly. LUNGS: Breath sounds clear to auscultation bilaterally. Respiration equal and unlabored. No wheezes, rales or rhonchi. HEART: Irregular rate and rhythm without murmurs, rubs or gallops. Mechanical click at the apex. S1 and S2 heard. EXTREMITIES: Normal range of motion, no edema. No clubbing or cyanosis. Peripheral pulses intact. ASSESSMENT Paroxysmal atrial fibrillation with rapid ventricular rate, resolved Mechanical mitral valve replacement, rheumatic disease Elevated troponin secondary to afib with RVR Sick sinus syndrome s/p permanent pacemaker implantation CVA Dysphagia PLAN Continue heparin and initiate coumadin tonight. Target INR 2.5-3.5. She is not a candidate for NOAC due to mechanical valve. Coumadin to be dose by pharmacy. Nurse Practitioner note has been reviewed, I agree with a documented findings and plan of care. Patient was seen and examined. Objective - Vital Signs Vital signs: Vital Signs Temp 98.6 F 06/27/20 11:23 Pulse 64 06/27/20 12:27 Resp 18 06/27/20 12:27 BP 132/61 06/27/20 08:00 Pulse Ox 97 06/27/20 11:23 Intake & Output 06/26/20 06/27/20 06/27/20 18:59 06:59 18:59 Intake Total 598.102 6878.796 0 Output Total 476 651 2 Balance 390.001 422.796 -2 Weight 86.7 kg Intake: Intake, IV Titration 146.001 233.796 0 Amount Heparin Sod,Pork in 0.45% 146.001 133.796 0 NaCl 25,000 unit In 0.45 % NaCl 1 250ml.bag @ 18 UNITS/KG/HR 14.94 mls/hr IV .[id number] [facility] Rx#: [id number] cefTRIAXone 1 gm In 100 Sodium Chloride 0.9% 50 ml @ 100 mls/hr IVPB Q12HR [facility] Rx#:[id number] Oral 0 Tube Feeding 720 840 Output: Urine 475 650 Stool 1 1 2 Other: Voiding Method Indwelling Catheter Indwelling Catheter Indwelling Catheter # Bowel Movements 1 - Labs CBC & Chem 7: 06/27/20 07:24 06/27/20 07:24 Labs: Abnormal Lab Results - Last 24 Hours (Table) 06/26/20 06/26/20 06/26/20 Range/Units 16:00 16:50 17:22 WBC (3.8-10.6) k/uL Hgb (11.4-16.0) gm/dL MCV (80.0-100.0) fL MCH (25.0-35.0) pg MCHC (31.0-37.0) g/dL RDW (11.5-15.5) % Neutrophils # (1.3-7.7) k/uL APTT 45.4 H (22.0-30.0) sec BUN (7-17) mg/dL Creatinine (0.52-1.04) mg/dL Glucose (74-99) mg/dL POC Glucose (mg/dL) 154 H (75-99) mg/dL Stool Occult Blood Positive H (Negative) 06/26/20 06/27/20 06/27/20 Range/Units 19:53 03:25 05:52 WBC (3.8-10.6) k/uL Hgb (11.4-16.0) gm/dL MCV (80.0-100.0) fL MCH (25.0-35.0) pg MCHC (31.0-37.0) g/dL RDW (11.5-15.5) % Neutrophils # (1.3-7.7) k/uL APTT (22.0-30.0) sec BUN (7-17) mg/dL Creatinine (0.52-1.04) mg/dL Glucose (74-99) mg/dL POC Glucose (mg/dL) 155 H 109 H 113 H (75-99) mg/dL Stool Occult Blood (Negative) 06/27/20 06/27/20 Range/Units 07:24 07:24 WBC 11.5 H (3.8-10.6) k/uL Hgb 11.3 L (11.4-16.0) gm/dL MCV 78.6 L (80.0-100.0) fL MCH 23.8 L (25.0-35.0) pg MCHC 30.3 L (31.0-37.0) g/dL RDW 19.7 H (11.5-15.5) % Neutrophils # 8.7 H (1.3-7.7) k/uL APTT (22.0-30.0) sec BUN 28 H (7-17) mg/dL Creatinine 0.46 L (0.52-1.04) mg/dL Glucose 108 H (74-99) mg/dL POC Glucose (mg/dL) (75-99) mg/dL Stool Occult Blood (Negative) Microbiology - Last 24 Hours (Table) 06/24/20 16:40 Blood Culture - Preliminary Blood No Growth after 48 hours 06/24/20 16:26 Blood Culture - Preliminary Blood No Growth after 48 hours 06/24/20 14:15 Urine Culture - Preliminary Urine,Clean Catch Yeast species
[2020-06-27] MEDS: LORATADINE 10 MG TAB PEG/G-TUBE SCH (15:14)
[2020-06-27] MEDS: MULTIVITAMINS, THERA LIQUID 237 ML BOTTLE PEG/G-TUBE SCH (15:15)
[2020-06-27] MEDS: FERROUS SULFATE ORAL ELIXIR 300 MG/5 ML CUP PEG/G-TUBE SCH (15:16)
[2020-06-27 17:05] LABS: Glucose,Whole Blood 78 mg/dL (75-99)
[2020-06-27] MEDS ORDERED: WARFARIN 7.5 MG TAB PO ONE (18:00)
[2020-06-27 19:56] LABS: Glucose,Whole Blood 103 mg/dL (75-99)
[2020-06-27] MEDS: PRAVASTATIN SODIUM 40 MG TAB PO SCH (21:55)
[2020-06-27] MEDS: HYDROPHILIC CREAM 180 GM TUBE TOPICAL SCH (21:56)
[2020-06-27] MEDS: INSULIN DETEMIR (LEVEMIR) 100 UNIT/ML SYR SQ SCH (21:57)
--- NOTE | 2020-06-27 23:41 | PN ---
PROGRESS NOTE She was supposed to get a new PEG tube today placed. Given heparin infusion. Vital signs appear to be stable. She has a benign ultrasound of the left breast. Heart regular rate and rhythm. EXTREMITIES: No cyanosis, clubbing, edema. ASSESSMENT: 1. Paroxysmal atrial fibrillation rapid ventricular response, resolved. 2. Mechanical by mitral valve replacement. 3. Rheumatic disease. 4. Elevated troponin secondary to atrial fibrillation. 5. Sick sinus syndrome status post permanent pacemaker. 6. Cerebrovascular accident. 7. Dysphagia. 8. PEG tube malfunction. As far as the PEG tube goes, surgery saw her. Breast lesion shows probable benign BI- RADS 3. Repeat ultrasound in a month. PEG tube is functioning good the surgeon says. Status post breast biopsy in the past which was negative for malignancy. Dr. Chavira also saw her to regulate her possibly recurrent UTI with large amount of white cells in the urine. Culture shows some yeast species in the Rgoss. Diflucan has been ordered. PROGNOSIS: Guarded. Follow up and possible discharge home tomorrow. MMODL / IJN: [id number] /
[2020-06-28 06:08] LABS: Glucose,Whole Blood 118 mg/dL (75-99)
[2020-06-28] MEDS: DILTIAZEM ORAL 30 MG TAB PO SCH ×2 (07:12→17:51)
[2020-06-28] MEDS: GABAPENTIN 100 MG CAP PEG/G-TUBE SCH ×3 (07:14→21:01)
[2020-06-28] MEDS: GABAPENTIN 300 MG CAP PEG/G-TUBE SCH ×3 (07:15→21:01)
[2020-06-28] MEDS: SODIUM CHLORIDE 0.9% 1,000 ML IV SCH ×3 (07:58→21:01)
[2020-06-28] MEDS: INSULIN ASPART (NovoLOG) 100 UNIT/ML VIAL SQ SCH ×4 (07:58→21:01)
[2020-06-28] MEDS: NON FORMULARY DRUG (Liquacel 30 ML) PEG/G-TUBE SCH (08:06)
[2020-06-28 08:19] LABS: INR 1.1 (<1.2); Prothrombin Time 11.2 sec (9.0-12.0)
[2020-06-28] MEDS: levETIRAcetam ORAL SOLN 500 MG/5 ML CUP PEG/G-TUBE SCH (08:28)
[2020-06-28] MEDS: CHOLESTYRAMINE (WITH SUGAR) 4 GM PACKET PEG/G-TUBE SCH (08:28)
[2020-06-28] MEDS: METOPROLOL TARTRATE 50 MG TAB PEG/G-TUBE SCH ×3 (08:29→21:01)
[2020-06-28] MEDS: FLUCONAZOLE 100 MG TAB PO SCH (08:29)
[2020-06-28] MEDS: ASPIRIN 81 MG PO SCH (08:29)
[2020-06-28] MEDS: FUROSEMIDE 40 MG TAB PEG/G-TUBE SCH ×2 (08:29→17:51)
[2020-06-28] MEDS: HEPARIN SOD,PORK IN 0.45% NACL 25,000 UNIT in 0.45% NACL 1 250ML.BAG IV SCH ×2 (10:29→21:01)
--- NOTE | 2020-06-28 11:16 | P.PN ---
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 She used to follow with Dr. rCaig, has not been seen in the office since March 2017. We have been asked to see in consultation for atrial fibrillation with RVR. Patient sent from extended care facility after finding the patient's heart rate in the 130s. 06/28/2020 Pt seen and examined laying flat in bed in no acute distress. She is currently in SR. Blood pressure 134/64 heart rate 66 afebrile maintaining oxygen saturation on room air. Laboratory data reviewed, INR 1.1. GENERAL: Well-appearing, well-nourished and in no acute distress. NECK: Supple without JVD or thyromegaly. LUNGS: Breath sounds clear to auscultation bilaterally. Respiration equal and unlabored. No wheezes, rales or rhonchi. HEART: Regular rate and rhythm without murmurs, rubs or gallops. Mechanical click at the apex. S1 and S2 heard. EXTREMITIES: No clubbing or cyanosis. Peripheral pulses intact. ASSESSMENT Paroxysmal atrial fibrillation with rapid ventricular rate, resolved Mechanical mitral valve replacement, rheumatic disease Elevated troponin secondary to afib with RVR Sick sinus syndrome s/p permanent pacemaker implantation CVA Dysphagia PLAN Continue heparin bridging for therapeutic INR 2.5-3.5. If she is able to be discharged back to ECF, she can be bridged on lovenox for 1-week. Nurse Practitioner note has been reviewed, I agree with a documented findings and plan of care. Patient was seen and examined. Objective - Vital Signs Vital signs: Vital Signs Temp 98.1 F 06/28/20 04:00 Pulse 66 06/28/20 08:00 Resp 20 06/28/20 08:00 BP 134/64 06/28/20 08:00 Pulse Ox 94 L 06/28/20 08:00 Intake & Output 06/27/20 06/28/20 06/28/20 18:59 06:59 18:59 Intake Total 0 Output Total 1502 2 Balance -1502 -2 Intake: Intake, IV Titration 0 Amount Heparin Sod,Pork in 0.45% 0 NaCl 25,000 unit In 0.45 % NaCl 1 250ml.bag @ 18 UNITS/KG/HR 14.94 mls/hr IV .[id number] [facility] Rx#: [id number] Output: Urine 1500 Stool 2 2 Other: Voiding Method Indwelling Catheter Indwelling Catheter Indwelling Catheter - Labs CBC & Chem 7: 06/27/20 07:24 06/27/20 07:24 Labs: Abnormal Lab Results - Last 24 Hours (Table) 06/27/20 06/27/20 06/28/20 Range/Units 19:00 19:54 06:06 APTT 57.6 H (22.0-30.0) sec POC Glucose (mg/dL) 103 H 118 H (75-99) mg/dL 06/28/20 Range/Units 07:47 APTT 49.6 H (22.0-30.0) sec POC Glucose (mg/dL) (75-99) mg/dL Microbiology - Last 24 Hours (Table) 06/24/20 14:15 Urine Culture - Final Urine,Clean Catch Hannah glabrata 06/24/20 16:40 Blood Culture - Preliminary Blood No Growth after 72 hours 06/24/20 16:26 Blood Culture - Preliminary Blood No Growth after 72 hours
[2020-06-28 11:21] LABS: Glucose,Whole Blood 137 mg/dL (75-99)
--- NOTE | 2020-06-28 11:22 | P.PN ---
Subjective Progress Note Date: 06/28/20 Principal diagnosis: Sepsis likely due to urinary tract infection Intravascular volume depletion dehydration A flutter/A. fib with RVR multifactorial due to chronic atrial fibrillation as well as sepsis Multiple strokes nonverbal and noncommunicative Urinary tract infection Malfunctioning unstable PEG tube 06/28/2020, patient seen eval examined during the rounds, remains on room air, breathing comfortably, patient is resume on Coumadin, remains on heparin IV, status post midline, antibiotics have been switched to oral, 06/27/2020, patient seen and evaluated examined during the rounds he remains on room air breathing Petrin is variable however oxygen saturation stable, once PEG tube is working functioning well can be switched back to oral direct anticoagulant at bedtime heparin can be discontinued, agree with discharge planning 06/26/2020, patient seen eval examined during the rounds labs reviewed medications reviewed care plan discussed, patient remains on IV heparin, patient has been tolerating tube feed very well, patient can be resumed on direct oral anticoagulants, 06/25/2020, patient seen eval examined during the rounds labs reviewed medications reviewed care plan discussed, patient remains awake nonverbal and noncommunicative, remains on IV heparin IV antibiotics gently being hydrated, surgical services are following for PEG tube This patient is well-known to me patient has a stroke nonverbal and noncommunicative history of the seizure disorder, chronic history of atrial fibrillation came into the hospital with tachycardia with heart rate of 130 patient was noted to have been in A. fib with RVR, patient has been started on IV Cardizem with fluid bolus cardiology on consultation, not much data can be obtained from the patient as patient is mute nonverbal and noncommunicative, her prior history significant for dyslipidemia, seizure disorder, hypertension hypertensive cardiovascular disease, patient is on direct oral anticoagulant for chronic atrial fibrillation as well as Cardizem through the PEG tube, along with bronchodilators, also have a significant history of the chronic anemia, rectus sheath hematoma, on arrival she was noted to be febrile with low-grade temperature and WBC count is elevated to 15,000 heart rate was 138 came down to 102 hemodynamic status stable, BUN is elevated with 52 creatinine 0.57, lactic acid level is 2.8, urine appears abnormal with evidence of UTI with large leukocyte is trace moderate WBC clumps, leukocyte esterase positive in addition to fluid boluses and bronchodilator and continuation of home medicine patient has been started on appropriately IV antibiotics with Rocephin patient has a one IV, would recommend and requested the midline to be placed for more stable IV,, surgery has been following for malfunctioning PEG tube also she has a left breast lesion with negative biopsy in February, Objective - Vital Signs Vital signs: Vital Signs Temp 98.1 F 06/28/20 04:00 Pulse 66 06/28/20 08:00 Resp 20 06/28/20 08:00 BP 134/64 06/28/20 08:00 Pulse Ox 94 L 06/28/20 08:00 Intake & Output 06/27/20 06/28/20 06/28/20 18:59 06:59 18:59 Intake Total 0 Output Total 1502 2 Balance -1502 -2 Intake: Intake, IV Titration 0 Amount Heparin Sod,Pork in 0.45% 0 NaCl 25,000 unit In 0.45 % NaCl 1 250ml.bag @ 18 UNITS/KG/HR 14.94 mls/hr IV .[id number] [facility] Rx#: [id number] Output: Urine 1500 Stool 2 2 Other: Voiding Method Indwelling Catheter Indwelling Catheter Indwelling Catheter - Exam Constitutional General appearance: average body habitus, disheveled - EENT Eyes: PERRLA Ears: bilateral: normal - Neck Neck: normal ROM Carotids: bilateral: upstroke normal - Respiratory Respiratory: bilateral: diminished - Cardiovascular Rhythm: irregularly irregular Heart sounds: normal: S1, S2 - Gastrointestinal General gastrointestinal: decreased bowel sounds - Integumentary Integumentary: decreased turgor - Musculoskeletal Musculoskeletal: generalized weakness - Labs CBC & Chem 7: 06/27/20 07:24 06/27/20 07:24 Labs: Abnormal Lab Results - Last 24 Hours (Table) 06/27/20 06/27/20 06/28/20 Range/Units 19:00 19:54 06:06 APTT 57.6 H (22.0-30.0) sec POC Glucose (mg/dL) 103 H 118 H (75-99) mg/dL 06/28/20 Range/Units 07:47 APTT 49.6 H (22.0-30.0) sec POC Glucose (mg/dL) (75-99) mg/dL Microbiology - Last 24 Hours (Table) 06/24/20 14:15 Urine Culture - Final Urine,Clean Catch Hannah glabrata 06/24/20 16:40 Blood Culture - Preliminary Blood No Growth after 72 hours 06/24/20 16:26 Blood Culture - Preliminary Blood No Growth after 72 hours Assessment and Plan Assessment: Sepsis likely due to urinary tract infection Intravascular volume depletion dehydration A flutter/A. fib with RVR multifactorial due to chronic atrial fibrillation as well as sepsis Multiple strokes nonverbal and noncommunicative Urinary tract infection Malfunctioning unstable PEG tube Plan: Continue antibiotics For fluid boluses as tolerated per protocol IV heparin can be switched to direct oral anticoagulants or Lovenox to bridge Coumadin Continue home medications Further plan of care as per clinical response of the patient Malfunctioning PEG tube status post change as per surgical services tolerating tube feed well Left breast lesion evaluation per surgical services Time with Patient: Greater than 30
--- NOTE | 2020-06-28 14:16 | PN ---
PROGRESS NOTE DATE OF SERVICE: 06/28/2020 REASON FOR FOLLOWUP: Recurrent urinary tract infection, catheter associated. INTERVAL HISTORY: The patient is currently afebrile. Patient is breathing comfortably on room air. The patient is hemodynamically stable, has been tolerating her tube feeds and no diarrhea has been reported by the nursing staff. PHYSICAL EXAMINATION: Blood pressure 134/64 with a pulse of 66, temperature 98.1. She is 94% on room air. General description is an elderly female lying in bed in no distress. RESPIRATORY SYSTEM: Unlabored breathing, clear to auscultation anteriorly. HEART: S1, S2. Regular rate and rhythm. ABDOMEN: Soft, no tenderness. LABS: Urine with Hannah. DIAGNOSTIC IMPRESSION AND PLAN: Patient with catheter-associated urinary tract infection, urine with Hannah. Patient to continue with Diflucan for a week and on discharge. Continue supportive care. MMODL / IJN: [id number] /
--- NOTE | 2020-06-28 14:41 | P.PN ---
Subjective Progress Note Date: 06/28/20 CHIEF COMPLAINT: Possible malfunctioning PEG tube HISTORY OF PRESENT ILLNESS: Surgical service is following regards to patient's questionable malfunctioning PEG tube and left breast lesion. The KUB x-ray shows of the gastrostomy tube is in good position in the stomach. Patient was tolerating tube feedings over the weekend. There is no need for replacement of the PEG tube. PEG tube is functioning appropriately. Her left breast lesion shows probable benign BIRADS 3 and recommendations include repeat ultrasound of the left breast in 1 month. Afebrile Patient seen and examined with Dr. feliz PHYSICAL EXAM: VITAL SIGNS: Reviewed. GENERAL: Well-developed in no acute distress. HEENT: No sclera icterus. Extraocular movements grossly intact. Moist buccal mucosa. Head is atraumatic, normocephalic. ABDOMEN: Soft. Nondistended. PEG tube site clean dry and intact NEUROLOGIC: Alert and oriented. Nonverbal Breast: Small superficial ulceration in the upper left quadrant of left breast. Mild tenderness with palpation. no drainage ASSESSMENT: 1. Malfunctioning PEG tube: PEG tube is functioning appropriately. It is in the correct position. 2. Left breast lesion with known history of left breast cancer. Her last left breast lesion biopsy in February was negative for malignancy PLAN: -Continue tube feedings -No surgical intervention planned on PEG tube -We will have patient follow-up in the office after discharge -Patient is stable for discharge from surgical standpoint Physician Supervisor Litharge note has been reviewed by physician. Signing provider agrees with the documented findings, assessment, and plan of care. Objective - Vital Signs Vital signs: Vital Signs Temp 98.7 F 06/28/20 12:00 Pulse 64 06/28/20 13:44 Resp 16 06/28/20 13:44 BP 130/60 06/28/20 12:00 Pulse Ox 97 06/28/20 12:00 Intake & Output 06/27/20 06/28/20 06/28/20 18:59 06:59 18:59 Intake Total 0 Output Total 1502 2 Balance -1502 -2 Intake: Intake, IV Titration 0 Amount Heparin Sod,Pork in 0.45% 0 NaCl 25,000 unit In 0.45 % NaCl 1 250ml.bag @ 18 UNITS/KG/HR 14.94 mls/hr IV .[id number] [facility] Rx#: [id number] Output: Urine 1500 Stool 2 2 Other: Voiding Method Indwelling Catheter Indwelling Catheter Indwelling Catheter - Labs CBC & Chem 7: 06/27/20 07:24 06/27/20 07:24 Labs: Abnormal Lab Results - Last 24 Hours (Table) 06/27/20 06/27/20 06/28/20 Range/Units 19:00 19:54 06:06 APTT 57.6 H (22.0-30.0) sec POC Glucose (mg/dL) 103 H 118 H (75-99) mg/dL 06/28/20 06/28/20 Range/Units 07:47 11:17 APTT 49.6 H (22.0-30.0) sec POC Glucose (mg/dL) 137 H (75-99) mg/dL Microbiology - Last 24 Hours (Table) 06/24/20 14:15 Urine Culture - Final Urine,Clean Catch Hannah glabrata 06/24/20 16:40 Blood Culture - Preliminary Blood No Growth after 72 hours 06/24/20 16:26 Blood Culture - Preliminary Blood No Growth after 72 hours
[2020-06-28 16:41] LABS: Glucose,Whole Blood 174 mg/dL (75-99)
[2020-06-28] MEDS: FERROUS SULFATE ORAL ELIXIR 300 MG/5 ML CUP PEG/G-TUBE SCH (17:51)
[2020-06-28] MEDS: LORATADINE 10 MG TAB PEG/G-TUBE SCH (17:51)
[2020-06-28] MEDS ORDERED: WARFARIN 5 MG TAB PO ONE (18:00)
[2020-06-28] MEDS: MULTIVITAMINS, THERA LIQUID 237 ML BOTTLE PEG/G-TUBE SCH (18:01)
[2020-06-28 20:00] LABS: Glucose,Whole Blood 152 mg/dL (75-99)
[2020-06-28] MEDS: PRAVASTATIN SODIUM 40 MG TAB PO SCH (21:01)
[2020-06-28] MEDS: HYDROPHILIC CREAM 180 GM TUBE TOPICAL SCH (21:01)
[2020-06-28] MEDS: INSULIN DETEMIR (LEVEMIR) 100 UNIT/ML SYR SQ SCH (21:01)
--- NOTE | 2020-06-29 02:56 | PN ---
PROGRESS NOTE 75-year-old white female atrial fibrillation RVR. She has a yeast infection and UTI. Her PEG tube has been fixed. She is on Lovenox bridge until Coumadin levels between 2 and 3. She is on Coumadin 5 mg a day. Cardiology wants her sent home on Lovenox bridge once her INR stabilizes. Otherwise, she is resting comfortably. Giving appropriate answers. Psych: Fair mood and affect. Neurologic: Alert and orient x3, ophthalmologic: Pupils equal, round, reactive. ASSESSMENT: 1. Atrial fibrillation with RVR. 2. PEG tube malfunction. 3. Urinary tract infection. 4. Prior stroke with hemiparesis. 5. Prognosis guarded. MMODL / IJN: [id number] /
[2020-06-29] MEDS: SODIUM CHLORIDE 0.9% 1,000 ML IV SCH (05:32)
[2020-06-29] MEDS: DILTIAZEM ORAL 30 MG TAB PO SCH (05:34)
[2020-06-29] MEDS: GABAPENTIN 100 MG CAP PEG/G-TUBE SCH ×2 (05:36→14:42)
[2020-06-29] MEDS: GABAPENTIN 300 MG CAP PEG/G-TUBE SCH ×2 (05:36→14:42)
--- NOTE | 2020-06-29 06:05 | DS ---
DISCHARGE SUMMARY ASSESSMENT: 1. Atrial fibrillation with RVR. 2. Abdominal wall cellulitis. 3. Positive PEG malfunction. 4. Yeast urinary tract infection. 5. Chronic neuropathy. 6. Chronic obstructive pulmonary disease. 7. Prior cerebellar stroke. 8. Diabetes mellitus. 9. Esophageal dysmobility. 10.PEG tube feedings. HOME MEDICINES: Diflucan 100 mg daily for 7 days, ferrous sulfide elixir 300 mg per PEG tube daily, Lopressor 100 mg PEG tube t.i.d., Nitrostat 0.4 mg sublingual q.5 p.r.n. for chest pain, Lovenox 80 mg subcu q.12 hours until Coumadin bridge is reach with INR between 2 and 3. She will continue on Coumadin 5 mg daily. Lovenox can be stopped if Coumadin is therapeutic between 2 and 3. Cardizem 30 mg b.i.d., Milk of magnesia 2400 mg PEG tube daily p.r.n., Continue Pravachol 40 mg PEG tube daily, Keppra oral solution 100 mg daily, aspirin 81 mg daily, Dulcolax 10 mg rectal daily, Tylenol 650 PEG tube q.6 hours p.r.n., multivitamin daily, Metro cream topically daily, Fleet enema p.r.n. daily, DuoNeb updrafts q.i.d., Claritin 10 mg once a day, 30 mL PEG tube daily, gabapentin 500 mg PEG tubes t.i.d., hydrophilic triad cream topically daily, Questran pack 4 mg PEG tube daily, Lasix 40 mg by PEG tube b.i.d., NovoLog a.c. and h.s., Levemir 48 units subcu daily, Metformin 500 mg PEG tube b.i.d. CONDITION: Stable. PROGNOSIS: Guarded. HOSPITAL COURSE: This 75-year-old white female came with altered mental status, PEG tube malfunction, yeast UTI, in atrial fibrillation with rapid ventricular response. Cardiology saw her as well as Infectious Disease. Treated with IV antibiotics, oral fungal medicine, Cardizem drip. Switched to oral medications. Blood thinner Coumadin will be done therapeutic between 2 and 3 with Lovenox bridge until then. Continue medications as mentioned above. Prognosis guarded. Condition stable. Follow up with Dr. Luis A Gomez at [facility]. MMODL / IJN: [id number] /
[2020-06-29 06:25] LABS: Glucose,Whole Blood 166 mg/dL (75-99)
[2020-06-29] MEDS: INSULIN ASPART (NovoLOG) 100 UNIT/ML VIAL SQ SCH ×2 (06:29→12:41)
[2020-06-29 08:09] LABS: INR 1.2 (<1.2); Prothrombin Time 12.2 sec (9.0-12.0)
[2020-06-29 08:15] LABS: ALT 39 U/L (4-34); AST 46 U/L (14-36); African American GFR (CKD) >90 (>60 ml/min/1.73 sqM); Alkaline Phosphatase 131 U/L (38-126); Anion Gap 7 mmol/L; Blood Urea Nitrogen 23 mg/dL (7-17); Calcium 9.3 mg/dL (8.4-10.2); Carbon Dioxide 26 mmol/L (22-30); Chloride 103 mmol/L (98-107); Glucose 143 mg/dL (74-99); Non-African American GFR(CKD) >90 (>60 ml/min/1.73 sqM); Potassium 4.2 mmol/L (3.5-5.1); Sodium 136 mmol/L (137-145); Total Bilirubin 0.3 mg/dL (0.2-1.3); Total Protein 5.9 g/dL (6.3-8.2)
[2020-06-29 08:30] LABS: Anisocytosis Slight; Basophils # (A) 0.1 k/uL (0-0.2); Basophils % (A) 1 %; Eosinophils # (A) 0.4 k/uL (0-0.7); Eosinophils % (A) 4 %; HCT 40.2 % (34.0-46.0); Hypochromasia Marked; Lymphocytes # (A) 1.8 k/uL (1.0-4.8); Lymphocytes % (A) 19 %; MCH 23.7 pg (25.0-35.0); MCHC 29.8 g/dL (31.0-37.0); MCV 79.6 fL (80.0-100.0); Mean Platelet Volume 8.1; Microcytosis Slight; Monocytes # (A) 0.4 k/uL (0-1.0); Monocytes % (A) 5 %; Neutrophils # (A) 6.7 k/uL (1.3-7.7); Neutrophils % (A) 71 %; Platelet Count 229 k/uL (150-450); RBC 5.05 m/uL (3.80-5.40); RDW 19.9 % (11.5-15.5); WBC 9.4 k/uL (3.8-10.6)
[2020-06-29] MEDS: FUROSEMIDE 40 MG TAB PEG/G-TUBE SCH (08:56)
[2020-06-29] MEDS: levETIRAcetam ORAL SOLN 500 MG/5 ML CUP PEG/G-TUBE SCH (08:56)
[2020-06-29] MEDS: FLUCONAZOLE 100 MG TAB PO SCH (08:56)
[2020-06-29] MEDS: ASPIRIN 81 MG PO SCH (08:56)
[2020-06-29] MEDS: CHOLESTYRAMINE (WITH SUGAR) 4 GM PACKET PEG/G-TUBE SCH (08:56)
[2020-06-29] MEDS: METOPROLOL TARTRATE 50 MG TAB PEG/G-TUBE SCH (08:56)
[2020-06-29] MEDS: NON FORMULARY DRUG (Liquacel 30 ML) PEG/G-TUBE SCH (08:56)
--- NOTE | 2020-06-29 10:52 | P.PN ---
Subjective Progress Note Date: 06/29/20 Principal diagnosis: Sepsis likely due to urinary tract infection Intravascular volume depletion dehydration A flutter/A. fib with RVR multifactorial due to chronic atrial fibrillation as well as sepsis Multiple strokes nonverbal and noncommunicative Urinary tract infection Malfunctioning unstable PEG tube 06/29/2020, patient seen eval examined during the rounds labs reviewed medications reviewed care plan discussed, patient is awake, however nonverbal and noncommunicative on room air, breathing comfortably, patient remains in A. fib with intermittent ventricular response mostly controlled however now, patient remains on the oral Cardizem, wouldn't is being dosed as well, in the meantime remains on IV heparin as bridge, labs today reviewed, PT/INR remains subtherapeutic PTT isn't therapeutic range of 53, no dynamic status stable, 06/28/2020, patient seen eval examined during the rounds, remains on room air, breathing comfortably, patient is resume on Coumadin, remains on heparin IV, status post midline, antibiotics have been switched to oral, 06/27/2020, patient seen and evaluated examined during the rounds he remains on room air breathing Petrin is variable however oxygen saturation stable, once PEG tube is working functioning well can be switched back to oral direct anticoagulant at bedtime heparin can be discontinued, agree with discharge planning 06/26/2020, patient seen eval examined during the rounds labs reviewed medications reviewed care plan discussed, patient remains on IV heparin, patient has been tolerating tube feed very well, patient can be resumed on direct oral anticoagulants, 06/25/2020, patient seen eval examined during the rounds labs reviewed medications reviewed care plan discussed, patient remains awake nonverbal and n oncommunicative, remains on IV heparin IV antibiotics gently being hydrated, surgical services are following for PEG tube This patient is well-known to me patient has a stroke nonverbal and noncommun icative history of the seizure disorder, chronic history of atrial fibrillation came into the hospital with tachycardia with heart rate of 130 patient was noted to have been in A. fib with RVR, patient has been started on IV Cardizem with fluid bolus cardiology on consultation, not much data can be obtained from the patient as patient is mute nonverbal and noncommunicative, her prior history significant for dyslipidemia, seizure disorder, hypertension hypertensive cardiovascular disease, patient is on direct oral anticoagulant for chronic atrial fibrillation as well as Cardizem through the PEG tube, along with bronchodilators, also have a significant history of the chronic anemia, rectus sheath hematoma, on arrival she was noted to be febrile with low-grade temperature and WBC count is elevated to 15,000 heart rate was 138 came down to 102 hemodynamic status stable, BUN is elevated with 52 creatinine 0.57, lactic acid level is 2.8, urine appears abnormal with evidence of UTI with large leukocyte is trace moderate WBC clumps, leukocyte esterase positive in addition to fluid boluses and bronchodilator and continuation of home medicine patient has been started on appropriately IV antibiotics with Rocephin patient has a one IV, would recommend and requested the midline to be placed for more stable IV,, surgery has been following for malfunctioning PEG tube also she has a left breas t lesion with negative biopsy in February, Objective - Vital Signs Vital signs: Vital Signs Temp 97.4 F L 06/29/20 08:35 Pulse 68 06/29/20 08:35 Resp 18 06/29/20 08:35 BP 125/61 06/29/20 08:35 Pulse Ox 96 06/29/20 08:35 Intake & Output 06/28/20 06/29/20 06/29/20 18:59 06:59 18:59 Intake Total 720 240 Output Total 1675 Balance -955 240 Weight 85.5 kg Intake: Tube Feeding 720 240 Output: Urine 1675 Other: Voiding Method Indwelling Catheter Indwelling Catheter Indwelling Catheter # Bowel Movements 1 - Exam Constitutional General appearance: average body habitus, disheveled - EENT Eyes: PERRLA Ears: bilateral: normal - Neck Neck: normal ROM Carotids: bilateral: upstroke normal - Respiratory Respiratory: bilateral: diminished - Cardiovascular Rhythm: irregularly irregular Heart sounds: normal: S1, S2 - Gastrointestinal General gastrointestinal: decreased bowel sounds - Integumentary Integumentary: decreased turgor - Musculoskeletal Musculoskeletal: generalized weakness - Labs CBC & Chem 7: 06/29/20 07:22 06/29/20 07:22 Labs: Abnormal Lab Results - Last 24 Hours (Table) 06/28/20 06/28/20 06/28/20 Range/Units 11:17 16:37 19:58 MCV (80.0-100.0) fL MCH (25.0-35.0) pg MCHC (31.0-37.0) g/dL RDW (11.5-15.5) % PT (9.0-12.0) sec INR (<1.2) APTT (22.0-30.0) sec Sodium (137-145) mmol/L BUN (7-17) mg/dL Creatinine (0.52-1.04) mg/dL Glucose (74-99) mg/dL POC Glucose (mg/dL) 137 H 174 H 152 H (75-99) mg/dL AST (14-36) U/L ALT (4-34) U/L Alkaline Phosphatase (38-126) U/L Total Protein (6.3-8.2) g/dL Albumin (3.5-5.0) g/dL 06/29/20 06/29/20 06/29/20 Range/Units 06:24 07:22 07:22 MCV 79.6 L (80.0-100.0) fL MCH 23.7 L (25.0-35.0) pg MCHC 29.8 L (31.0-37.0) g/dL RDW 19.9 H (11.5-15.5) % PT 12.2 H (9.0-12.0) sec INR 1.2 H (<1.2) APTT 53.0 H (22.0-30.0) sec Sodium (137-145) mmol/L BUN (7-17) mg/dL Creatinine (0.52-1.04) mg/dL Glucose (74-99) mg/dL POC Glucose (mg/dL) 166 H (75-99) mg/dL AST (14-36) U/L ALT (4-34) U/L Alkaline Phosphatase (38-126) U/L Total Protein (6.3-8.2) g/dL Albumin (3.5-5.0) g/dL 06/29/20 Range/Units 07:22 MCV (80.0-100.0) fL MCH (25.0-35.0) pg MCHC (31.0-37.0) g/dL RDW (11.5-15.5) % PT (9.0-12.0) sec INR (<1.2) APTT (22.0-30.0) sec Sodium 136 L (137-145) mmol/L BUN 23 H (7-17) mg/dL Creatinine 0.51 L (0.52-1.04) mg/dL Glucose 143 H (74-99) mg/dL POC Glucose (mg/dL) (75-99) mg/dL AST 46 H (14-36) U/L ALT 39 H (4-34) U/L Alkaline Phosphatase 131 H (38-126) U/L Total Protein 5.9 L (6.3-8.2) g/dL Albumin 3.0 L (3.5-5.0) g/dL Microbiology - Last 24 Hours (Table) 06/24/20 16:40 Blood Culture - Preliminary Blood No Growth after 96 hours 06/24/20 16:26 Blood Culture - Preliminary Blood No Growth after 96 hours Assessment and Plan Assessment: Sepsis likely due to urinary tract infection Intravascular volume depletion dehydration A flutter/A. fib with RVR multifactorial due to chronic atrial fibrillation as well as sepsis Multiple strokes nonverbal and noncommunicative Urinary tract infection due to Hannah glabrata Malfunctioning unstable PEG tube, status post replacement Plan: We'll recommend ID evaluation for Hannah glabrata as usually it is resistant to Diflucan Continue antibiotics For fluid boluses as tolerated per protocol IV heparin can be switched to direct oral anticoagulants or Lovenox to bridge Coumadin Continue home medications Further plan of care as per clinical response of the patient Malfunctioning PEG tube status post change as per surgical services tolerating tube feed well Left breast lesion evaluation per surgical services Time with Patient: Greater than 30
[2020-06-29 12:05] LABS: Glucose,Whole Blood 151 mg/dL (75-99)
[2020-06-29 12:16] VITALS: BP 140/63; PULSE 65; RESP 16; TEMP 98.2
--- NOTE | 2020-06-29 12:40 | P.PN ---
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 She used to follow with Dr. Craig, has not been seen in the office since March 2017. We have been asked to see in consultation for atrial fibrillation with RVR. Patient sent from extended care facility after finding the patient's heart rate in the 130s. 06/29/2020 Pt seen and examined laying flat in bed in no acute distress. She is currently in afib with heart rate in the 60s. Blood pressure 140/63 heart rate 65 afebrile maintaining oxygen saturation on room air. Laboratory data reviewed, INR 1.2. Heparin infusion ongoing. Pt to be discharged back to ECF today on lovenox bridging. GENERAL: Well-appearing, well-nourished and in no acute distress. NECK: Supple without JVD or thyromegaly. LUNGS: Breath sounds clear to auscultation bilaterally. Respiration equal and unlabored. No wheezes, rales or rhonchi. HEART: Regular rate and rhythm without murmurs, rubs or gallops. Mechanical click at the apex. S1 and S2 heard. EXTREMITIES: No clubbing or cyanosis. Peripheral pulses intact. ASSESSMENT Paroxysmal atrial fibrillation with rapid ventricular rate, resolved Mechanical mitral valve replacement, rheumatic disease Elevated troponin secondary to afib with RVR Sick sinus syndrome s/p permanent pacemaker implantation CVA Dysphagia PLAN Continue current medical regimen. Bridge with lovenox and continue warfarin. Nurse Practitioner note has been reviewed, I agree with a documented findings and plan of care. Patient was seen and examined. Objective - Vital Signs Vital signs: Vital Signs Temp 98.2 F 06/29/20 12:16 Pulse 65 06/29/20 12:16 Resp 16 06/29/20 12:16 BP 140/63 06/29/20 12:16 Pulse Ox 96 06/29/20 08:35 Intake & Output 06/28/20 06/29/20 06/29/20 18:59 06:59 18:59 Intake Total 720 240 Output Total 1675 Balance -955 240 Weight 85.5 kg Intake: Tube Feeding 720 240 Output: Urine 1675 Other: Voiding Method Indwelling Catheter Indwelling Catheter Indwelling Catheter # Bowel Movements 1 - Labs CBC & Chem 7: 06/29/20 07:22 06/29/20 07:22 Labs: Abnormal Lab Results - Last 24 Hours (Table) 06/28/20 06/28/20 06/29/20 Range/Units 16:37 19:58 06:24 MCV (80.0-100.0) fL MCH (25.0-35.0) pg MCHC (31.0-37.0) g/dL RDW (11.5-15.5) % PT (9.0-12.0) sec INR (<1.2) APTT (22.0-30.0) sec Sodium (137-145) mmol/L BUN (7-17) mg/dL Creatinine (0.52-1.04) mg/dL Glucose (74-99) mg/dL POC Glucose (mg/dL) 174 H 152 H 166 H (75-99) mg/dL AST (14-36) U/L ALT (4-34) U/L Alkaline Phosphatase (38-126) U/L Total Protein (6.3-8.2) g/dL Albumin (3.5-5.0) g/dL 06/29/20 06/29/20 06/29/20 Range/Units 07:22 07:22 07:22 MCV 79.6 L (80.0-100.0) fL MCH 23.7 L (25.0-35.0) pg MCHC 29.8 L (31.0-37.0) g/dL RDW 19.9 H (11.5-15.5) % PT 12.2 H (9.0-12.0) sec INR 1.2 H (<1.2) APTT 53.0 H (22.0-30.0) sec Sodium 136 L (137-145) mmol/L BUN 23 H (7-17) mg/dL Creatinine 0.51 L (0.52-1.04) mg/dL Glucose 143 H (74-99) mg/dL POC Glucose (mg/dL) (75-99) mg/dL AST 46 H (14-36) U/L ALT 39 H (4-34) U/L Alkaline Phosphatase 131 H (38-126) U/L Total Protein 5.9 L (6.3-8.2) g/dL Albumin 3.0 L (3.5-5.0) g/dL 06/29/20 Range/Units 11:53 MCV (80.0-100.0) fL MCH (25.0-35.0) pg MCHC (31.0-37.0) g/dL RDW (11.5-15.5) % PT (9.0-12.0) sec INR (<1.2) APTT (22.0-30.0) sec Sodium (137-145) mmol/L BUN (7-17) mg/dL Creatinine (0.52-1.04) mg/dL Glucose (74-99) mg/dL POC Glucose (mg/dL) 151 H (75-99) mg/dL AST (14-36) U/L ALT (4-34) U/L Alkaline Phosphatase (38-126) U/L Total Protein (6.3-8.2) g/dL Albumin (3.5-5.0) g/dL Microbiology - Last 24 Hours (Table) 06/24/20 16:40 Blood Culture - Preliminary Blood No Growth after 96 hours 06/24/20 16:26 Blood Culture - Preliminary Blood No Growth after 96 hours
--- NOTE | 2020-06-29 13:19 | P.PN ---
Subjective Progress Note Date: 06/29/20 CHIEF COMPLAINT: Possible malfunctioning PEG tube HISTORY OF PRESENT ILLNESS: Surgical service is following regards to patient's questionable malfunctioning PEG tube and left breast lesion. The KUB x-ray shows of the gastrostomy tube is in good position in the stomach. Patient is tolerating tube feedings. PEG tube is functioning appropriately. Her left breast lesion US shows probable benign BIRADS 3 and recommendations include repeat ultrasound of the left breast in 1 month. Afebrile Patient seen and examined with Dr. feliz PHYSICAL EXAM: VITAL SIGNS: Reviewed. GENERAL: Well-developed in no acute distress. HEENT: No sclera icterus. Extraocular movements grossly intact. Moist buccal mucosa. Head is atraumatic, normocephalic. ABDOMEN: Soft. Nondistended. PEG tube site clean dry and intact NEUROLOGIC: Alert and oriented. Nonverbal Breast: Small superficial ulceration in the upper left quadrant of left breast. Mild tenderness with palpation. no drainage ASSESSMENT: 1. Malfunctioning PEG tube: PEG tube is functioning appropriately. It is in the correct position. 2. Left breast lesion with known history of left breast cancer. Her last left breast lesion biopsy in February was negative for malignancy PLAN: -Continue tube feedings -No surgical intervention planned on PEG tube -We will have patient follow-up in the office after discharge -Patient is stable for discharge from surgical standpoint Physician Major Gifts Director note has been reviewed by physician. Signing provider agrees with the documented findings, assessment, and plan of care. Objective - Vital Signs Vital signs: Vital Signs Temp 98.2 F 06/29/20 12:16 Pulse 65 06/29/20 12:16 Resp 16 06/29/20 12:16 BP 140/63 06/29/20 12:16 Pulse Ox 96 06/29/20 08:35 Intake & Output 06/28/20 06/29/20 06/29/20 18:59 06:59 18:59 Intake Total 720 240 Output Total 1675 Balance -955 240 Weight 85.5 kg Intake: Tube Feeding 720 240 Output: Urine 1675 Other: Voiding Method Indwelling Catheter Indwelling Catheter Indwelling Catheter # Bowel Movements 1 - Labs CBC & Chem 7: 06/29/20 07:22 06/29/20 07:22 Labs: Abnormal Lab Results - Last 24 Hours (Table) 06/28/20 06/28/20 06/29/20 Range/Units 16:37 19:58 06:24 MCV (80.0-100.0) fL MCH (25.0-35.0) pg MCHC (31.0-37.0) g/dL RDW (11.5-15.5) % PT (9.0-12.0) sec INR (<1.2) APTT (22.0-30.0) sec Sodium (137-145) mmol/L BUN (7-17) mg/dL Creatinine (0.52-1.04) mg/dL Glucose (74-99) mg/dL POC Glucose (mg/dL) 174 H 152 H 166 H (75-99) mg/dL AST (14-36) U/L ALT (4-34) U/L Alkaline Phosphatase (38-126) U/L Total Protein (6.3-8.2) g/dL Albumin (3.5-5.0) g/dL 06/29/20 06/29/20 06/29/20 Range/Units 07:22 07:22 07:22 MCV 79.6 L (80.0-100.0) fL MCH 23.7 L (25.0-35.0) pg MCHC 29.8 L (31.0-37.0) g/dL RDW 19.9 H (11.5-15.5) % PT 12.2 H (9.0-12.0) sec INR 1.2 H (<1.2) APTT 53.0 H (22.0-30.0) sec Sodium 136 L (137-145) mmol/L BUN 23 H (7-17) mg/dL Creatinine 0.51 L (0.52-1.04) mg/dL Glucose 143 H (74-99) mg/dL POC Glucose (mg/dL) (75-99) mg/dL AST 46 H (14-36) U/L ALT 39 H (4-34) U/L Alkaline Phosphatase 131 H (38-126) U/L Total Protein 5.9 L (6.3-8.2) g/dL Albumin 3.0 L (3.5-5.0) g/dL 06/29/20 Range/Units 11:53 MCV (80.0-100.0) fL MCH (25.0-35.0) pg MCHC (31.0-37.0) g/dL RDW (11.5-15.5) % PT (9.0-12.0) sec INR (<1.2) APTT (22.0-30.0) sec Sodium (137-145) mmol/L BUN (7-17) mg/dL Creatinine (0.52-1.04) mg/dL Glucose (74-99) mg/dL POC Glucose (mg/dL) 151 H (75-99) mg/dL AST (14-36) U/L ALT (4-34) U/L Alkaline Phosphatase (38-126) U/L Total Protein (6.3-8.2) g/dL Albumin (3.5-5.0) g/dL Microbiology - Last 24 Hours (Table) 06/24/20 16:40 Blood Culture - Preliminary Blood No Growth after 96 hours 06/24/20 16:26 Blood Culture - Preliminary Blood No Growth after 96 hours
--- NOTE | 2020-06-29 14:15 | PN ---
PROGRESS NOTE DATE OF SERVICE: 06/29/2020 REASON FOR FOLLOWUP: Urinary tract infection. INTERVAL HISTORY: The patient remains to be afebrile. The patient is hemodynamically stable. The patient remains to be lethargic and sleepy, unable to provide any history. No vomiting, diarrhea or other changes reported by nursing staff. PHYSICAL EXAMINATION: Blood pressure 140/63 with a pulse of 65, temperature 98.2. She is 97% on room air. General description is an elderly female lying in bed in no distress. RESPIRATORY SYSTEM: Unlabored breathing, clear to auscultation anteriorly. HEART: S1, S2. Regular rate and rhythm. ABDOMEN: Soft, no tenderness. LABS: Hemoglobin is 12.7, white count 9.4, BUN of 23, creatinine 0.51. Blood culture has been negative. DIAGNOSTIC IMPRESSION AND PLAN: Patient with catheter-associated urinary tract infection. Urine shows Hannah glabrata. However, the patient white count responded. Diflucan has to continue for about a week and close outpatient followup. Continue supportive care. MMODL / IJN: [id number] /
[2020-06-29] MEDS ORDERED: WARFARIN 10 MG TAB PO ONE (18:00)
== END 2020-06-29 15:10 | DRG 308 ==
LOC: EC 04:52 → 3SCARD 07:01
PROVIDERS: ADMIT Family Medicine; ATTEND Family Medicine
PROC: 3E0G76Z Introduction of Nutritional Substance into Upper GI, Via Natural or Artificial Opening (ICD-10-PCS; 2020-06-24)
PROC: 05HD33Z Insertion of Infusion Device into Right Cephalic Vein, Percutaneous Approach (ICD-10-PCS; principal; 2020-06-28 07:30)
DX: I48.20 Chronic atrial fibrillation, unspecified (principal); A41.9 Sepsis, unspecified organism; J69.0 Pneumonitis due to inhalation of food and vomit; B37.49 Other urogenital candidiasis; T83.518A Infection and inflammatory reaction due to other urinary catheter, initial encounter; I31.3 Pericardial effusion (noninflammatory); I69.354 Hemiplegia and hemiparesis following cerebral infarction affecting left non-dominant side; J96.10 Chronic respiratory failure, unspecified whether with hypoxia or hypercapnia; K94.23 Gastrostomy malfunction; L03.311 Cellulitis of abdominal wall; D50.0 Iron deficiency anemia secondary to blood loss (chronic); E11.9 Type 2 diabetes mellitus without complications; E78.5 Hyperlipidemia, unspecified; E86.0 Dehydration; F03.90 Unspecified dementia, unspecified severity, without behavioral disturbance, psychotic disturbance, mood disturbance, and anxiety; G40.909 Epilepsy, unspecified, not intractable, without status epilepticus; G62.9 Polyneuropathy, unspecified; I05.0 Rheumatic mitral stenosis; I11.0 Hypertensive heart disease with heart failure; I25.10 Atherosclerotic heart disease of native coronary artery without angina pectoris; I27.20 Pulmonary hypertension, unspecified; I48.0 Paroxysmal atrial fibrillation; I48.92 Unspecified atrial flutter; I49.5 Sick sinus syndrome; I50.9 Heart failure, unspecified; R77.8 Other specified abnormalities of plasma proteins; J44.9 Chronic obstructive pulmonary disease, unspecified; N61.1 Abscess of the breast and nipple; N63.0 Unspecified lump in unspecified breast; I69.320 Aphasia following cerebral infarction; I69.391 Dysphagia following cerebral infarction; R13.10 Dysphagia, unspecified; R32 Unspecified urinary incontinence; Y84.6 Urinary catheterization as the cause of abnormal reaction of the patient, or of later complication, without mention of misadventure at the time of the procedure; Z20.822 Contact with and (suspected) exposure to COVID-19; Z79.01 Long term (current) use of anticoagulants; Z79.4 Long term (current) use of insulin; Z79.82 Long term (current) use of aspirin; Z79.899 Other long term (current) drug therapy; Z80.0 Family history of malignant neoplasm of digestive organs; Z82.3 Family history of stroke; Z85.3 Personal history of malignant neoplasm of breast; Z87.440 Personal history of urinary (tract) infections; Z90.710 Acquired absence of both cervix and uterus; Z95.0 Presence of cardiac pacemaker; Z95.2 Presence of prosthetic heart valve; Z95.5 Presence of coronary angioplasty implant and graft; Z98.42 Cataract extraction status, left eye; Z98.41 Cataract extraction status, right eye; Z96.1 Presence of intraocular lens; Z99.81 Dependence on supplemental oxygen; Z86.14 Personal history of Methicillin resistant Staphylococcus aureus infection; K22.4 Dyskinesia of esophagus
CPT/HCPCS: 36410; 36415; 71045; 74018; 76937; 80048; 80053; 80061; 81001; 82272; 83605; 83735; 84443; 84484; 85025; 85610; 85730; 87040; 87086; 87635; 93005; 93306; 96374; 96376; 99285

== ENCOUNTER 2020-07-15 11:43 | Emergency (ER) | payer MEDICARE, OTHER ==
[2020-07-15 12:17] VITALS: PULSE 87; TEMP 98.6
--- NOTE | 2020-07-15 12:59 | ED ---
General Adult HPI - General Chief complaint: Recheck/Abnormal Lab/Rx Stated complaint: Peg tube replacement Time Seen by Provider: 07/15/20 12:10 Source: EMS, RN notes reviewed, old records reviewed Mode of arrival: EMS Limitations: altered mental status, physical limitation - History of Present Illness Initial comments: Patient is a 75-year-old female presenting from intermediate for concerns regarding G tube falling out. Reportedly patient was found with to that was out and balloon was popped. Patient has limited verbal capability and unable to provide any information at this time. - Related Data Home Medications Medication Instructions Recorded Confirmed Pravastatin Sodium [Pravachol] 40 mg PEG/G-TUBE HS@2100 05/20/17 06/24/20 levETIRAcetam [Keppra Oral 100 mg PEG/G-TUBE DAILY@0800 09/27/17 06/24/20 Solution] Aspirin 81 mg PEG/G-TUBE DAILY@0800 05/30/18 06/24/20 Acetaminophen Oral Susp [Tylenol] 650 mg PEG/G-TUBE Q6H PRN 12/25/19 06/24/20 Multivitamins, Thera Liquid 5 ml PEG/G-TUBE DAILY@1700 12/25/19 06/24/20 [Theragran Liquid (formulary)] bisacodyL [Dulcolax] 10 mg RECTAL DAILY PRN 12/25/19 06/24/20 Ipratropium-Albuterol Nebulize 3 ml INHALATION RT-Q6H PRN 06/11/20 06/24/20 [Duoneb 0.5 mg-3 mg/3 ml Soln] Na Phos,M-B/Na Phos,Di-Ba [Fleet 133 ml RECTAL DAILY PRN 06/11/20 06/24/20 Adult] Furosemide [Lasix] 40 mg PEG/G-TUBE BID@0800,1700 06/24/20 06/24/20 Gabapentin Oral Soln [Neurontin 500 mg PEG/G-TUBE 06/24/20 06/24/20 Oral Soln] TID@0600,1400,2100 Hydrophilic Cream [Triad Cream] 1 applic TOPICAL HS 06/24/20 06/24/20 INSULIN ASPART (NovoLOG) [NovoLOG See Protocol SQ ACHS 06/24/20 06/24/20 (formulary)] Insulin Detemir (Levemir) [Levemir] 48 unit SQ HS@2130 06/24/20 06/24/20 Liquacel 30 ml PEG/G-TUBE DAILY@0800 06/24/20 06/24/20 metFORMIN HCL [Glucophage] 500 mg PEG/G-TUBE BID@0800,1700 06/24/20 06/24/20 Previous Rx's Medication Instructions Recorded metroNIDAZOLE 0.75% CREAM 1 applic TOPICAL DAILY applic 03/14/20 [Metrocream] Cholestyramine (with Sugar) 4 gm PEG/G-TUBE DAILY@0800 packet 06/14/20 [Questran Packet] Loratadine [Claritin] 10 mg PEG/G-TUBE DAILY@1700 tab 06/14/20 Enoxaparin [Lovenox] 80 mg SQ Q12H #10 syringe 06/28/20 Warfarin [Coumadin] 5 mg PO DAILY #90 tab 06/28/20 Diltiazem Oral [Cardizem*] 30 mg PO 0600,1800 tab 06/29/20 Ferrous Sulfate Oral Elixir 300 mg PEG/G-TUBE DAILY@1700 ml 06/29/20 [Feosol Liquid] Fluconazole [Diflucan] 100 mg PO DAILY tab 06/29/20 Magnesium Hydroxide [Milk of 2,400 mg PEG/G-TUBE DAILY PRN ml 06/29/20 Magnesia Concentrate] Metoprolol Tartrate [Lopressor] 100 mg PEG/G-TUBE TID tab 06/29/20 Nitroglycerin Sl Tabs [Nitrostat] 0.4 mg SUBLINGUAL Q5M PRN tab 06/29/20 Allergies Allergy/AdvReac Type Severity Reaction Status Date / Time ciprofloxacin [From Cipro] Allergy Rash/Hives Verified 06/24/20 07:21 ciprofloxacin HCl Allergy Rash/Hives Verified 06/24/20 07:21 [From Cipro] Quinolones Allergy Unknown Verified 06/24/20 07:21 Review of Systems ROS Statement: Those systems with pertinent positive or pertinent negative responses have been documented in the HPI. Limitations: ROS unobtainable due to patients medical condition Past Medical History Past Medical History: Atrial Fibrillation, Atrial Flutter, Asthma, Cancer, Heart Failure, CVA/TIA, Dementia, Diabetes Mellitus, GERD/Reflux, GI Bleed, Hyperlipidemia, Hypertension, Pneumonia, Sleep Apnea/CPAP/BIPAP Additional Past Medical History / Comment(s): Verified with [facility] papers r/t son Jose Rafael being unsure of history. Jose Rafael states he is also pt's DPOA. 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, post traumatic seizures, History of Any Multi-Drug Resistant Organisms: MRSA Date of last positivie culture/infection: 06/11/20 MDRO Source:: MRSA PEG TUBE SITE Past Surgical History: Breast Surgery, Cardiac Valve Replacement, Heart Catheterization With Stent, Hysterectomy, Orthopedic Surgery, Pacemaker, Tonsillectomy Additional Past Surgical History / Comment(s): Peg tube, mechanical mitral valve 2000, polypectomy spinal cord/cyst removed, TEEs, CVNs, colonoscopies, bilateral cataract removal/lens implants, L rotator cuff repair, R femur fracture with IM hip/screw/nail, L breast lumpectomy, Past Anesthesia/Blood Transfusion Reactions: No Reported Reaction Date of Last Stent Placement:: 2006 Type of Cardiac Device: Permanent Pacemaker Device Placement Date:: 2009 Past Psychological History: Depression Smoking Status: Unknown if ever smoked Past Alcohol Use History: Unable to Obtain Past Drug Use History: Unable to Obtain - Past Family History Father Family Medical History: GI Bleed Additional Family Medical History / Comment(s): OF BLEEDING ULCER AT AGE 64 Mother Family Medical History: Cancer, CVA/TIA Additional Family Medical History / Comment(s): HX STROKES, COLON CANCER General Exam Limitations: altered mental status, physical limitation General appearance: alert Head exam: Present: atraumatic Eye exam: Present: normal appearance Respiratory exam: Present: normal lung sounds bilaterally Cardiovascular Exam: Present: regular rate, normal rhythm GI/Abdominal exam: Present: soft, other (Her G-tube site without tube present. Site is otherwise clean and dry, no erythema. No tenderness.). Absent: tenderness Neurological exam: Present: alert Psychiatric exam: Present: flat affect Skin exam: Present: normal color. Absent: erythema Course Vital Signs 07/15/20 12:07 Temperature 98.6 F Pulse Rate 87 Respiratory 20 Rate Blood Pressure 162/77 O2 Sat by Pulse 94 L Oximetry Procedures - Feeding Tube Replacement Reason for Replacement: fell out Initial Tube Inserted: greater than 2 weeks Type of Tube: gastrostomy Insertion Site Prior to Procedure: clean [place] Tube Size (F): 16 Balloon Size (mls): 4 Verification of Placement: auscultation, other (Able to flush without any difficulty) Tube Secured by: G-tube attachment device Patient Tolerated Procedure: well, no complications Disposition Clinical Impression: Dislodged gastrostomy tube Disposition: HOME SELF-CARE Condition: Stable Instructions (If sedation given, give patient instructions): How to Use and Care for Your PEG Tube (ED) Additional Instructions: Able to use the feeding tube. Please follow-up with surgeon as well as primary care physician. Return for difficulty with feedings or use of tube, worsening or change in symptoms, oriented concerns. Is patient prescribed a controlled substance at d/c from ED?: No Referrals: Luis A Gomez MD [Primary Care Provider] - 1-2 days Time of Disposition: 12:58
[2020-07-15 13:52] VITALS: BP 156/81; RESP 18
== END 2020-07-15 14:45 | disposition other institution (70) ==
LOC: EC 11:43
DX: Z43.1 Encounter for attention to gastrostomy (principal); I11.0 Hypertensive heart disease with heart failure; I50.9 Heart failure, unspecified; J45.909 Unspecified asthma, uncomplicated; E11.9 Type 2 diabetes mellitus without complications; F03.90 Unspecified dementia, unspecified severity, without behavioral disturbance, psychotic disturbance, mood disturbance, and anxiety; F32.9 Major depressive disorder, single episode, unspecified; G43.909 Migraine, unspecified, not intractable, without status migrainosus; G47.30 Sleep apnea, unspecified; E78.5 Hyperlipidemia, unspecified; K21.9 Gastro-esophageal reflux disease without esophagitis; Z86.73 Personal history of transient ischemic attack (TIA), and cerebral infarction without residual deficits; Z87.440 Personal history of urinary (tract) infections; Z79.4 Long term (current) use of insulin; Z79.01 Long term (current) use of anticoagulants; Z79.51 Long term (current) use of inhaled steroids; Z79.82 Long term (current) use of aspirin; Z88.1 Allergy status to other antibiotic agents; Z95.0 Presence of cardiac pacemaker; Z95.2 Presence of prosthetic heart valve
CPT/HCPCS: 43762; 99284

== ENCOUNTER 2020-08-20 19:56 | Inpatient (IN) | payer MEDICARE, OTHER ==
--- NOTE | 2020-08-20 20:39 | ED ---
General Adult HPI - General Chief complaint: Shortness of Breath Stated complaint: CALLIE Time Seen by Provider: 08/20/20 20:29 Source: patient, EMS Mode of arrival: EMS Limitations: altered mental status - History of Present Illness Initial comments: Patient presents to the ED by ambulance from her custodial for evaluation. Per custodial report, the patient appears to have had difficulty breathing recently, and she has also developed increased edema, so she was sent to the ED for evaluation. Patient has cognitive impairment/dementia from a prior subarachnoid hemorrhage and stroke, so history from the patient is very limited. Patient shakes her head no when asked if she has any pain. Patient nods her head yes when asked if she feels short of breath. - Related Data Home Medications Medication Instructions Recorded Confirmed Pravastatin Sodium [Pravachol] 40 mg PEG/G-TUBE HS@2100 05/20/17 08/20/20 levETIRAcetam [Keppra Oral 100 mg PEG/G-TUBE DAILY@0800 09/27/17 08/20/20 Solution] Aspirin 81 mg PEG/G-TUBE DAILY@0800 05/30/18 08/20/20 Acetaminophen Oral Susp [Tylenol] 650 mg PEG/G-TUBE Q6H PRN 12/25/19 08/20/20 Multivitamins, Thera Liquid 5 ml PEG/G-TUBE DAILY@1700 12/25/19 08/20/20 [Theragran Liquid (formulary)] bisacodyL [Dulcolax] 10 mg RECTAL DAILY PRN 12/25/19 08/20/20 Ipratropium-Albuterol Nebulize 3 ml INHALATION RT-Q6H PRN 06/11/20 08/20/20 [Duoneb 0.5 mg-3 mg/3 ml Soln] Na Phos,M-B/Na Phos,Di-Ba [Fleet 133 ml RECTAL DAILY PRN 06/11/20 08/20/20 Adult] Furosemide [Lasix] 40 mg PEG/G-TUBE BID@0800,1700 06/24/20 08/20/20 Gabapentin Oral Soln [Neurontin 100 mg PEG/G-TUBE 06/24/20 08/20/20 Oral Soln] TID@0600,1400,2100 INSULIN ASPART (NovoLOG) [NovoLOG See Protocol SQ 06/24/20 08/20/20 (formulary)] ACHS@07,11,1630,2130 Insulin Detemir (Levemir) [Levemir] 48 unit SQ HS@2130 06/24/20 08/20/20 metFORMIN HCL [Glucophage] 500 mg PEG/G-TUBE BID@0800,1700 06/24/20 08/20/20 Diltiazem Oral [Cardizem*] 30 mg PEG/G-TUBE BID@0600,1700 07/15/20 08/20/20 Metoprolol Tartrate [Lopressor] 100 mg PEG/G-TUBE 07/15/20 08/20/20 TID@0600,1400,2200 Warfarin [Coumadin] See Taper PO DAILY@1700 08/20/20 08/20/20 Previous Rx's Medication Instructions Recorded Cholestyramine (with Sugar) 4 gm PEG/G-TUBE DAILY@0800 packet 06/14/20 [Questran Packet] Loratadine [Claritin] 10 mg PEG/G-TUBE DAILY@1700 tab 06/14/20 Ferrous Sulfate Oral Elixir 300 mg PEG/G-TUBE DAILY@1700 ml 06/29/20 [Feosol Liquid] Magnesium Hydroxide [Milk of 2,400 mg PEG/G-TUBE DAILY PRN ml 06/29/20 Magnesia Concentrate] Nitroglycerin Sl Tabs [Nitrostat] 0.4 mg SUBLINGUAL Q5M PRN tab 06/29/20 Allergies Allergy/AdvReac Type Severity Reaction Status Date / Time ciprofloxacin [From Cipro] Allergy Rash/Hives Verified 08/20/20 20:13 ciprofloxacin HCl Allergy Rash/Hives Verified 08/20/20 20:13 [From Cipro] Quinolones Allergy Unknown Verified 08/20/20 20:13 Review of Systems ROS Statement: Those systems with pertinent positive or pertinent negative responses have been documented in the HPI. ROS Other: All systems not noted in ROS Statement are negative. Limitations: ROS unobtainable due to patients medical condition Past Medical History Past Medical History: Atrial Fibrillation, Atrial Flutter, Asthma, Cancer, Heart Failure, CVA/TIA, Dementia, Diabetes Mellitus, GERD/Reflux, GI Bleed, Hyperlipidemia, Hypertension, Pneumonia, Sleep Apnea/CPAP/BIPAP Additional Past Medical History / Comment(s): Verified with Harir papers r/t son Jose Rafael being unsure of history. Jose Rafael states he is also pt's DPOA. 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, post traumatic seizures, History of Any Multi-Drug Resistant Organisms: MRSA Date of last positivie culture/infection: 06/11/20 MDRO Source:: MRSA PEG TUBE SITE Past Surgical History: Breast Surgery, Cardiac Valve Replacement, Heart Catheterization With Stent, Hysterectomy, Orthopedic Surgery, Pacemaker, Tonsillectomy Additional Past Surgical History / Comment(s): Peg tube, mechanical mitral valve 2000, polypectomy spinal cord/cyst removed, TEEs, CVNs, colonoscopies, bilateral cataract removal/lens implants, L rotator cuff repair, R femur fracture with IM hip/screw/nail, L breast lumpectomy, Past Anesthesia/Blood Transfusion Reactions: No Reported Reaction Date of Last Stent Placement:: 2006 Type of Cardiac Device: Permanent Pacemaker Device Placement Date:: 2009 Past Psychological History: Depression Smoking Status: Unknown if ever smoked Past Alcohol Use History: Unable to Obtain Past Drug Use History: Unable to Obtain - Past Family History Father Family Medical History: GI Bleed Additional Family Medical History / Comment(s): OF BLEEDING ULCER AT AGE 64 Mother Family Medical History: Cancer, CVA/TIA Additional Family Medical History / Comment(s): HX STROKES, COLON CANCER General Exam Limitations: altered mental status General appearance: alert, in no apparent distress Head exam: Present: atraumatic Eye exam: Present: normal appearance, PERRL ENT exam: Present: mucous membranes moist Neck exam: Present: other (Trachea is in midline) Respiratory exam: Present: normal lung sounds bilaterally. Absent: respiratory distress, wheezes, rales, rhonchi, stridor Cardiovascular Exam: Present: regular rate, normal rhythm, other (Loud heart sounds, normal radial pulses bilaterally) GI/Abdominal exam: Present: soft, other (PEG tube is noted). Absent: distended, tenderness, guarding Extremities exam: Present: other (Bilateral upper extremity edema). Absent: tenderness Neurological exam: Present: alert Skin exam: Present: warm, dry, intact, normal color Course Vital Signs 08/20/20 08/20/20 08/20/20 19:57 20:39 22:58 Temperature 98.6 F Pulse Rate 69 69 93 Respiratory 18 18 Rate Blood Pressure 173/91 175/82 O2 Sat by Pulse 96 97 Oximetry - Reevaluation(s) Reevaluation #1: 08/20/20 23:12 Patient remains alert and breathing comfortably with clear breath sounds bilaterally and a normal room air oxygen saturation. 08/20/20 23:17 Case, H&P, test results thus far and ED management thus far were discussed with Dr. Luis A Gomez. He accepts hospital admission. He agrees with empiric antibiotic treatment given the patient's elevated lactate level. He has no further recommendations at this time. EKG Findings - EKG Comments: EKG Findings:: Sinus rhythm with first-degree AV block, ventricular rate of 69 bpm, no ectopy, RI interval of 324 ms, normal QRS duration, normal QT interval, nonspecific ST abnormality, artifact spikes which I suspect are from the patient's artificial heart valve Medical Decision Making - Medical Decision Making Patient's vital signs, labs and chest x-ray are fairly unremarkable other than an elevated lactate level of 3.9. Patient is afebrile and breathing comfortably with a normal room air oxygen saturation. Patient's troponin is negative. Patient's BNP is elevated, but is in the normal range for her age. Patient's UA is still pending at this time. Given the patient's elevated lactic acid level, will admit the patient to the hospital. Patient was given empiric IV Zosyn and IV fluids in the ED. Patient has been normotensive and hemodynamically stable while in the ED. Dr. Luis A Gomez has accepted hospital admission. - Lab Data Result diagrams: 08/20/20 20:57 08/20/20 20:57 Lab Results 08/20/20 08/20/20 08/20/20 Range/Units 20:57 20:57 20:57 WBC 12.1 H (3.8-10.6) k/uL RBC 4.82 (3.80-5.40) m/uL Hgb 12.6 (11.4-16.0) gm/dL Hct 38.7 (34.0-46.0) % MCV 80.3 (80.0-100.0) fL MCH 26.2 (25.0-35.0) pg MCHC 32.6 (31.0-37.0) g/dL RDW 19.9 H (11.5-15.5) % Plt Count 305 (150-450) k/uL MPV 9.1 Neutrophils % 72 % Lymphocytes % 17 % Monocytes % 5 % Eosinophils % 5 % Basophils % 1 % Neutrophils # 8.7 H (1.3-7.7) k/uL Lymphocytes # 2.1 (1.0-4.8) k/uL Monocytes # 0.5 (0-1.0) k/uL Eosinophils # 0.6 (0-0.7) k/uL Basophils # 0.1 (0-0.2) k/uL Hypochromasia Slight Anisocytosis Slight Microcytosis Slight PT 15.8 H (9.0-12.0) sec INR 1.6 H (<1.2) APTT 26.3 (22.0-30.0) sec Sodium 136 L (137-145) mmol/L Potassium 4.2 (3.5-5.1) mmol/L Chloride 98 (98-107) mmol/L Carbon Dioxide 29 (22-30) mmol/L Anion Gap 9 mmol/L BUN 40 H (7-17) mg/dL Creatinine 0.46 L (0.52-1.04) mg/dL Est GFR (CKD-EPI)AfAm >90 (>60 ml/min/1.73 sqM) Est GFR (CKD-EPI)NonAf >90 (>60 ml/min/1.73 sqM) Glucose 215 H (74-99) mg/dL Plasma Lactic Acid Buddy (0.7-2.0) mmol/L Calcium 9.6 (8.4-10.2) mg/dL Magnesium 2.1 (1.6-2.3) mg/dL Total Bilirubin 0.3 (0.2-1.3) mg/dL AST 29 (14-36) U/L ALT 24 (4-34) U/L Alkaline Phosphatase 145 H (38-126) U/L Troponin I (0.000-0.034) ng/mL NT-Pro-B Natriuret Pep pg/mL Total Protein 7.0 (6.3-8.2) g/dL Albumin 3.5 (3.5-5.0) g/dL 08/20/20 08/20/20 08/20/20 Range/Units 20:57 20:57 20:57 WBC (3.8-10.6) k/uL RBC (3.80-5.40) m/uL Hgb (11.4-16.0) gm/dL Hct (34.0-46.0) % MCV (80.0-100.0) fL MCH (25.0-35.0) pg MCHC (31.0-37.0) g/dL RDW (11.5-15.5) % Plt Count (150-450) k/uL MPV Neutrophils % % Lymphocytes % % Monocytes % % Eosinophils % % Basophils % % Neutrophils # (1.3-7.7) k/uL Lymphocytes # (1.0-4.8) k/uL Monocytes # (0-1.0) k/uL Eosinophils # (0-0.7) k/uL Basophils # (0-0.2) k/uL Hypochromasia Anisocytosis Microcytosis PT (9.0-12.0) sec INR (<1.2) APTT (22.0-30.0) sec Sodium (137-145) mmol/L Potassium (3.5-5.1) mmol/L Chloride (98-107) mmol/L Carbon Dioxide (22-30) mmol/L Anion Gap mmol/L BUN (7-17) mg/dL Creatinine (0.52-1.04) mg/dL Est GFR (CKD-EPI)AfAm (>60 ml/min/1.73 sqM) Est GFR (CKD-EPI)NonAf (>60 ml/min/1.73 sqM) Glucose (74-99) mg/dL Plasma Lactic Acid Buddy 3.9 H* (0.7-2.0) mmol/L Calcium (8.4-10.2) mg/dL Magnesium (1.6-2.3) mg/dL Total Bilirubin (0.2-1.3) mg/dL AST (14-36) U/L ALT (4-34) U/L Alkaline Phosphatase (38-126) U/L Troponin I 0.024 (0.000-0.034) ng/mL NT-Pro-B Natriuret Pep 1170 pg/mL Total Protein (6.3-8.2) g/dL Albumin (3.5-5.0) g/dL - Radiology Data Radiology results: report reviewed (Chest x-ray: Chronic mild left basilar opacity, may represent atelectasis/chronic changes) Disposition Clinical Impression: Peripheral edema, Dyspnea, Lactic acidosis Disposition: ADMITTED IP TO THIS [facility] Condition: Stable Is patient prescribed a controlled substance at d/c from ED?: No Referrals: Luis A Gomez MD [Primary Care Provider] - 1-2 days Time of Disposition: 23:22
[2020-08-20 21:19] LABS: Anisocytosis Slight; Basophils # (A) 0.1 k/uL (0-0.2); Basophils % (A) 1 %; Eosinophils # (A) 0.6 k/uL (0-0.7); Eosinophils % (A) 5 %; HCT 38.7 % (34.0-46.0); HGB 12.6 gm/dL (11.4-16.0); Hypochromasia Slight; Lymphocytes # (A) 2.1 k/uL (1.0-4.8); Lymphocytes % (A) 17 %; MCH 26.2 pg (25.0-35.0); MCHC 32.6 g/dL (31.0-37.0); MCV 80.3 fL (80.0-100.0); Mean Platelet Volume 9.1; Microcytosis Slight; Monocytes # (A) 0.5 k/uL (0-1.0); Monocytes % (A) 5 %; Neutrophils # (A) 8.7 k/uL (1.3-7.7); Neutrophils % (A) 72 %; Platelet Count 305 k/uL (150-450); RBC 4.82 m/uL (3.80-5.40); RDW 19.9 % (11.5-15.5); WBC 12.1 k/uL (3.8-10.6)
[2020-08-20 21:35] LABS: INR 1.6 (<1.2); Partial Thromboplastin Time 26.3 sec (22.0-30.0); Prothrombin Time 15.8 sec (9.0-12.0)
--- NOTE | 2020-08-20 21:57 | XR ---
EXAMINATION TYPE: XR chest 1V portable DATE OF EXAM: 08/20/2020 COMPARISON: 06/24/2020. HISTORY: Dyspnea. TECHNIQUE: Single frontal view of the chest is obtained. FINDINGS: There is chronic mild left basilar hazy opacity. No significant pleural effusion, or pneum othorax seen. The cardiac silhouette size is enlarged. Stable right pacemaker. The osseous structu res are intact. Left axillary aranza dissection clips seen. IMPRESSION: No definite acute process. Chronic mild left basilar opacity, may represent atelectasis/chronic changes.
[2020-08-20 22:47] LABS: ALT 24 U/L (4-34); AST 29 U/L (14-36); African American GFR (CKD) >90 (>60 ml/min/1.73 sqM); Albumin 3.5 g/dL (3.5-5.0); Alkaline Phosphatase 145 U/L (38-126); Anion Gap 9 mmol/L; Blood Urea Nitrogen 40 mg/dL (7-17); Calcium 9.6 mg/dL (8.4-10.2); Carbon Dioxide 29 mmol/L (22-30); Chloride 98 mmol/L (98-107); Glucose 215 mg/dL (74-99); Magnesium 2.1 mg/dL (1.6-2.3); Non-African American GFR(CKD) >90 (>60 ml/min/1.73 sqM); Potassium 4.2 mmol/L (3.5-5.1); Sodium 136 mmol/L (137-145); Total Bilirubin 0.3 mg/dL (0.2-1.3)
[2020-08-20] MEDS ORDERED: SODIUM CHLORIDE 0.9% 500 ML 500 ML IV ONE (23:17)
[2020-08-20] MEDS ORDERED: PIPERACILLIN-TAZOBACTAM 3.375 GM in SODIUM CHLORIDE 0.9% 100 ML IVPB STA (23:18)
[2020-08-20] MEDS ORDERED: IPRATROPIUM-ALBUTEROL 3 ML NEB INHALATION PRN (23:24)
[2020-08-20] MEDS ORDERED: MAGNESIUM HYDROXIDE 2,400 MG/10 ML CUP PEG/G-TUBE PRN (23:24)
[2020-08-20 23:58] LABS: Amorphous Sediment,Urine Rare /hpf; Appearance,Urine Cloudy (Clear); Bacteria,Urine Many /hpf; Bilirubin,Urine Negative (Negative); Blood,Urine Moderate (Negative); Color,Urine Light Yellow; Glucose,Urine (UA) Negative (Negative); Hyaline Casts,Urine 2 /lpf (0-2); Ketones,Urine Negative (Negative); Leukocyte Esterase,Urine Large (Negative); Mucus,Urine Rare /hpf; Nitrite,Urine Positive (Negative); Protein,Urine Trace (Negative); RBC,Urine 17 /hpf (0-5); Specific Gravity,Urine 1.013 (1.001-1.035); Squamous Epithelial Cell,Urine 1 /hpf (0-4); Urobilinogen,Urine <2.0 mg/dL (<2.0); WBC,Urine 87 /hpf (0-5)
[2020-08-21 02:58] LABS: Anisocytosis Slight; Basophils # (A) 0.1 k/uL (0-0.2); Basophils % (A) 1 %; Eosinophils # (A) 0.5 k/uL (0-0.7); Eosinophils % (A) 5 %; HCT 38.2 % (34.0-46.0); HGB 12.3 gm/dL (11.4-16.0); Hypochromasia Moderate; Lymphocytes # (A) 1.8 k/uL (1.0-4.8); Lymphocytes % (A) 17 %; MCH 25.9 pg (25.0-35.0); MCHC 32.1 g/dL (31.0-37.0); MCV 80.6 fL (80.0-100.0); Mean Platelet Volume 7.7; Microcytosis Slight; Monocytes # (A) 0.5 k/uL (0-1.0); Monocytes % (A) 5 %; Neutrophils # (A) 7.7 k/uL (1.3-7.7); Neutrophils % (A) 72 %; Platelet Count 242 k/uL (150-450); RBC 4.74 m/uL (3.80-5.40); RDW 19.9 % (11.5-15.5); WBC 10.7 k/uL (3.8-10.6)
[2020-08-21 03:10] LABS: ALT 23 U/L (4-34); AST 29 U/L (14-36); African American GFR (CKD) >90 (>60 ml/min/1.73 sqM); Albumin 3.3 g/dL (3.5-5.0); Alkaline Phosphatase 109 U/L (38-126); Anion Gap 6 mmol/L; Blood Urea Nitrogen 37 mg/dL (7-17); Calcium 9.2 mg/dL (8.4-10.2); Carbon Dioxide 30 mmol/L (22-30); Chloride 102 mmol/L (98-107); Glucose 133 mg/dL (74-99); Non-African American GFR(CKD) >90 (>60 ml/min/1.73 sqM); Sodium 138 mmol/L (137-145); Total Bilirubin 0.3 mg/dL (0.2-1.3); Total Protein 6.5 g/dL (6.3-8.2)
[2020-08-21 06:01] LABS: Glucose,Whole Blood 104 mg/dL (75-99)
[2020-08-21] MEDS: GABAPENTIN 100 MG CAP PEG/G-TUBE SCH ×3 (06:02→20:25)
[2020-08-21] MEDS: METOPROLOL TARTRATE 50 MG TAB PEG/G-TUBE SCH ×3 (06:02→21:07)
[2020-08-21] MEDS: DILTIAZEM ORAL 30 MG TAB PEG/G-TUBE SCH ×2 (06:02→16:12)
[2020-08-21] MEDS ORDERED: NA PHOS,M-B/NA PHOS,DI-BA 133 ML ENEMA RECTAL PRN (09:00)
[2020-08-21] MEDS: levETIRAcetam ORAL SOLN 500 MG/5 ML CUP PEG/G-TUBE SCH (09:14)
[2020-08-21] MEDS: ASPIRIN 81 MG PEG/G-TUBE SCH (09:14)
[2020-08-21] MEDS: FUROSEMIDE 40 MG TAB PEG/G-TUBE SCH ×2 (09:14→16:12)
[2020-08-21] MEDS: metFORMIN 500 MG TAB PEG/G-TUBE SCH ×2 (09:16→17:46)
[2020-08-21] MEDS ORDERED: bisacodyL 10 MG SUPP RECTAL PRN (10:57)
[2020-08-21] MEDS ORDERED: NITROGLYCERIN SL TABS 0.4 MG TAB SUBLINGUAL PRN (10:57)
[2020-08-21 11:44] LABS: Glucose,Whole Blood 117 mg/dL (75-99)
[2020-08-21 12:17] LABS: INR 1.47 (0.90-1.11); Prothrombin Time 15.6 sec (9.9-11.9)
[2020-08-21] MEDS ORDERED: HEPARIN SODIUM 1,000 UN/ML (10ML VL) IV PRN (14:00)
[2020-08-21] MEDS ORDERED: HEPARIN SODIUM 1,000 UN/ML (10ML VL) IV ONE (14:00)
[2020-08-21] MEDS: HEPARIN SOD,PORK IN 0.45% NACL 25,000 UNIT in 0.45% NACL 1 250ML.BAG IV SCH (14:33)
--- NOTE | 2020-08-21 15:17 | CONS ---
CONSULTATION CHIEF COMPLAINT: Leg edema. HISTORY: Ariane is a 75-year-old lady with history of CVA who is currently in a detention and has been sent to the hospital because of leg edema. She has history of mitral stenosis and had mechanical mitral valve replacement in 2000, sick sinus syndrome status post permanent pacemaker, CVA, status post PEG tube placement, status post tracheostomy and has a history of atrial fibrillation. At the time of my evaluation, she appears comfortable at rest. She is noncommunicative and staring straight up at the ceiling. I do not see much leg edema. An echocardiogram on her in the recent past revealed normal LV function with a normally functioning mechanical valve in mitral position. She is on Coumadin, but INR is subtherapeutic at 1.4. We will start the patient on IV heparin and adjust Coumadin doses. PAST MEDICAL HISTORY: Significant for hypertension, diabetes, mitral valve replacement. MEDICATIONS: Medications at home included Lopressor, insulin, Neurontin, Glucophage, Pravachol, Lasix, Cardizem, iron, Claritin, aspirin. ALLERGIC: Cipro and quinolones. FAMILY HISTORY: Negative for premature coronary artery disease. SOCIAL HISTORY: Negative for smoking, EtOH abuse, or drug abuse. REVIEW OF SYSTEMS: HEENT is unremarkable. Cardiac as described above. Respiratory as described above. GI negative. Genitourinary negative. Skin is negative. Musculoskeletal significant for arthritis. Psychosocial negative. Endocrine and derm negative. Constitutional and oncological negative. SKI MAKER negative. Rest of the system review is not relevant. PHYSICAL EXAM: Comfortable at rest. Afebrile, heart rate is 70 beats per minute, blood pressure is 115/74, respiratory rate is 18. Chest exam reveals diminished air entry bilaterally. Heart exam reveals first and second heart sounds, a prosthetic valve sound is heard. Abdomen is soft. Exam of extremities did not reveal any edema. Peripheral pulses are felt. LABS: Labs show a hemoglobin of 12.3, platelet count of 240, potassium is 4 creatinine is 0.4. ASSESSMENT: 1. Status post mechanical mitral valve replacement. 2. History of atrial fibrillation. PLAN: 1. Start the patient on IV heparin until INR becomes therapeutic. 2. Obtain a set of blood cultures. MMODL / IJN: [id number] /
[2020-08-21] MEDS ORDERED: PIPERACILLIN-TAZOBACTAM 3.375 GM in SODIUM CHLORIDE 0.9% 100 ML IVPB SCH (16:00)
[2020-08-21] MEDS: LORATADINE 10 MG TAB PEG/G-TUBE SCH (16:12)
[2020-08-21] MEDS: FERROUS SULFATE ORAL ELIXIR 300 MG/5 ML CUP PEG/G-TUBE SCH (16:13)
[2020-08-21] MEDS: MULTIVITAMINS, THERA LIQUID 237 ML BOTTLE PEG/G-TUBE SCH (16:13)
[2020-08-21 17:16] LABS: Glucose,Whole Blood 162 mg/dL (75-99)
[2020-08-21] MEDS ORDERED: WARFARIN 3 MG TAB PO SCH (18:00)
[2020-08-21 19:16] LABS: Appearance,Urine Clear (Clear); Bacteria,Urine Rare /hpf; Bilirubin,Urine Negative (Negative); Blood,Urine Small (Negative); Color,Urine Light Yellow; Glucose,Urine (UA) Negative (Negative); Hyaline Casts,Urine 1 /lpf (0-2); Ketones,Urine Negative (Negative); Leukocyte Esterase,Urine Moderate (Negative); Mucus,Urine Rare /hpf; Nitrite,Urine Negative (Negative); PH, Urine 7.5 (5.0-8.0); Protein,Urine Trace (Negative); RBC,Urine 60 /hpf (0-5); Specific Gravity,Urine 1.008 (1.001-1.035); Urobilinogen,Urine <2.0 mg/dL (<2.0); WBC,Urine 35 /hpf (0-5)
[2020-08-21] MEDS: INSULIN DETEMIR (LEVEMIR) 100 UNIT/ML SYR SQ SCH (20:53)
[2020-08-21 22:10] LABS: Glucose,Whole Blood 169 mg/dL (75-99)
[2020-08-21] MEDS ORDERED: VANCOMYCIN IV PER PHARMACY 1 EACH MISC MISCELLANE PRN (22:55)
--- NOTE | 2020-08-21 22:55 | P.CONS ---
History of Present Illness - Reason for Consult Consult date: 08/21/20 Sepsis Requesting physician: Luis A Gomez - Chief Complaint Shortness of breath 1 day - History of Present Illness Patient is 75-year female halfway resident this patient did have underlying dementia history of recurrent UTI and pneumonia patient was sent to the ER at [facility] last evening for evaluation of difficulty in breathing and pedal patient also had developed increased edema to the lower extremity patient on presentation to the hospital was afebrile and no fever has been recorded subsequently patient is currently satting 98 to 95% on room air and is hemodynamically stable patient did have white count of 12.1 BUN was slightly elevated liver enzymes are normal patient did have a positive UA patient did have a chronic indwelling Gross catheter and is not sure if Gross catheter has been changed since being admitted to the hospital patient did have a blood culture drawn which came back for gram-positive cocci in cluster that has prompted this infectious disease consultation patient is currently being treated with Zosyn most information has been extracted from review the chart talking to nursing staff and the patient herself was not able to provide verbal history he did say yes or no to some of the questions asked she did have a chest x-ray that was negative for acute pulmonary process. Review of Systems Positive points has been mentioned in HPI complete review could not be obtained because of his underlying mental status Past Medical History Past Medical History: Atrial Fibrillation, Atrial Flutter, Asthma, Cancer, Heart Failure, CVA/TIA, Dementia, Diabetes Mellitus, GERD/Reflux, GI Bleed, Hyperlipidemia, Hypertension, Pneumonia, Sleep Apnea/CPAP/BIPAP Additional Past Medical History / Comment(s): Verified with [facility] papers r/t son Jose Rafael being unsure of history. Jose Rafael states he is also pt's DPOA. 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, post traumatic seizures, History of Any Multi-Drug Resistant Organisms: MRSA Year Discovered:: 06/11/20 MDRO Source:: MRSA PEG TUBE SITE Past Surgical History: Breast Surgery, Cardiac Valve Replacement, Heart Catheterization With Stent, Hysterectomy, Orthopedic Surgery, Pacemaker, Tonsillectomy Additional Past Surgical History / Comment(s): Peg tube, mechanical mitral valve 2001, polypectomy spinal cord/cyst removed, TEEs, CVNs, colonoscopies, bilateral cataract removal/lens implants, L rotator cuff repair, R femur fracture with IM hip/screw/nail, L breast lumpectomy, Past Anesthesia/Blood Transfusion Reactions: No Reported Reaction Date of Last Stent Placement:: 2006 Type of Cardiac Device: Permanent Pacemaker Device Placement Date:: 2009 Past Psychological History: Depression Additional Psychological History / Comment(s): Pt resides at [facility]. She is nonambulatory-get placed in wheelchair. She needs assist with all ADLs. Pt is NPO and has a peg tube. Smoking Status: Unknown if ever smoked Past Alcohol Use History: Unable to Obtain Additional Past Alcohol Use History / Comment(s): SMOKED OFF AND ON 1960 LESS THAN A YEAR THEN QUIT Past Drug Use History: Unable to Obtain - Past Family History Father Family Medical History: GI Bleed Additional Family Medical History / Comment(s): OF BLEEDING ULCER AT AGE 64 Mother Family Medical History: Cancer, CVA/TIA Additional Family Medical History / Comment(s): HX STROKES, COLON CANCER Medications and Allergies Home Medications Medication Instructions Recorded Confirmed Type Pravastatin Sodium [Pravachol] 40 mg PEG/G-TUBE HS@2100 05/20/17 08/20/20 History levETIRAcetam [Keppra Oral 100 mg PEG/G-TUBE DAILY@0800 09/27/17 08/20/20 History Solution] Aspirin 81 mg PEG/G-TUBE DAILY@0800 05/30/18 08/20/20 History Acetaminophen Oral Susp [Tylenol] 650 mg PEG/G-TUBE Q6H PRN 12/25/19 08/20/20 History Multivitamins, Thera Liquid 5 ml PEG/G-TUBE DAILY@1700 12/25/19 08/20/20 History [Theragran Liquid (formulary)] bisacodyL [Dulcolax] 10 mg RECTAL DAILY PRN 12/25/19 08/20/20 History Ipratropium-Albuterol Nebulize 3 ml INHALATION RT-Q6H PRN 06/11/20 08/20/20 History [Duoneb 0.5 mg-3 mg/3 ml Soln] Na Phos,M-B/Na Phos,Di-Ba [Fleet 133 ml RECTAL DAILY PRN 06/11/20 08/20/20 History Adult] Cholestyramine (with Sugar) 4 gm PEG/G-TUBE DAILY@0800 packet 06/14/20 08/20/20 Rx [Questran Packet] Loratadine [Claritin] 10 mg PEG/G-TUBE DAILY@1700 tab 06/14/20 08/20/20 Rx Furosemide [Lasix] 40 mg PEG/G-TUBE BID@0800,1700 06/24/20 08/20/20 History Gabapentin Oral Soln [Neurontin 100 mg PEG/G-TUBE 06/24/20 08/20/20 History Oral Soln] TID@0600,1400,2100 INSULIN ASPART (NovoLOG) [NovoLOG See Protocol SQ 06/24/20 08/20/20 History (formulary)] ACHS@07,11,1630,2130 Insulin Detemir (Levemir) [Levemir] 48 unit SQ HS@2130 06/24/20 08/20/20 History metFORMIN HCL [Glucophage] 500 mg PEG/G-TUBE BID@0800,1700 06/24/20 08/20/20 History Ferrous Sulfate Oral Elixir 300 mg PEG/G-TUBE DAILY@1700 ml 06/29/20 08/20/20 Rx [Feosol Liquid] Magnesium Hydroxide [Milk of 2,400 mg PEG/G-TUBE DAILY PRN ml 06/29/20 08/20/20 Rx Magnesia Concentrate] Nitroglycerin Sl Tabs [Nitrostat] 0.4 mg SUBLINGUAL Q5M PRN tab 06/29/20 08/20/20 Rx Diltiazem Oral [Cardizem*] 30 mg PEG/G-TUBE BID@0600,1700 07/15/20 08/20/20 History Metoprolol Tartrate [Lopressor] 100 mg PEG/G-TUBE 07/15/20 08/20/20 History TID@0600,1400,2200 Warfarin [Coumadin] See Taper PO DAILY@1700 08/20/20 08/20/20 History Allergies Allergy/AdvReac Type Severity Reaction Status Date / Time ciprofloxacin [From Cipro] Allergy Rash/Hives Verified 08/20/20 20:13 ciprofloxacin HCl Allergy Rash/Hives Verified 08/20/20 20:13 [From Cipro] Quinolones Allergy Unknown Verified 08/20/20 20:13 Physical Exam Vitals: Vital Signs Temp Pulse Pulse Resp BP BP Pulse Ox 08/21/20 07:00 97.6 F 71 16 115/74 98 08/21/20 00:54 99.0 F 94 22 132/77 95 08/20/20 22:58 93 18 175/82 97 08/20/20 20:39 69 08/20/20 19:57 98.6 F 69 18 173/91 96 Intake and Output 08/20/20 08/21/20 08/21/20 22:59 06:59 14:59 Output Total 500 480 Balance -500 -480 Output: Urine 500 480 Other: Voiding Method Indwelling Catheter Indwelling Catheter # Bowel Movements 1 Weight 90.718 kg 90.718 kg GENERAL DESCRIPTION: An elderly female lying in bed, no distress. No tachypnea or accessory muscle of respiration use. HEENT: Shows Pallor , no scleral icterus. Oral mucous membrane is dry. No pharyngeal erythema or thrush NECK: Trachea central, no thyromegaly. LUNGS: Unlabored breathing. Decreased breath on the base. No wheeze or crackle. HEART: S1, S2, regular rate and rhythm. No loud murmur ABDOMEN: Soft, no tenderness , guarding or rigidity, no organomegaly EXTREMITIES: No edema of feet. SKIN: No rash, no masses palpable. NEUROLOGICAL: The patient is awake, however nonverbal orientation could not be determined. Results CBC & Chem 7: 08/21/20 02:40 08/21/20 02:40 Labs: Abnormal Lab Results - Last 24 Hours (Table) 08/20/20 08/20/20 08/20/20 Range/Units 20:57 20:57 20:57 WBC 12.1 H (3.8-10.6) k/uL RDW 19.9 H (11.5-15.5) % Neutrophils # 8.7 H (1.3-7.7) k/uL PT 15.8 H (9.0-12.0) sec INR 1.6 H (<1.2) Sodium 136 L (137-145) mmol/L BUN 40 H (7-17) mg/dL Creatinine 0.46 L (0.52-1.04) mg/dL Glucose 215 H (74-99) mg/dL POC Glucose (mg/dL) (75-99) mg/dL Plasma Lactic Acid Buddy (0.7-2.0) mmol/L Alkaline Phosphatase 145 H (38-126) U/L Albumin (3.5-5.0) g/dL Urine Appearance (Clear) Urine Protein (Negative) Urine Blood (Negative) Urine Nitrite (Negative) Ur Leukocyte Esterase (Negative) Urine RBC (0-5) /hpf Urine WBC (0-5) /hpf Urine WBC Clumps (None) /hpf Amorphous Sediment (None) /hpf Urine Bacteria (None) /hpf Urine Mucus (None) /hpf 08/20/20 08/20/20 08/21/20 Range/Units 20:57 23:27 02:40 WBC 10.7 H (3.8-10.6) k/uL RDW 19.9 H (11.5-15.5) % Neutrophils # (1.3-7.7) k/uL PT (9.0-12.0) sec INR (<1.2) Sodium (137-145) mmol/L BUN (7-17) mg/dL Creatinine (0.52-1.04) mg/dL Glucose (74-99) mg/dL POC Glucose (mg/dL) (75-99) mg/dL Plasma Lactic Acid Buddy 3.9 H* (0.7-2.0) mmol/L Alkaline Phosphatase (38-126) U/L Albumin (3.5-5.0) g/dL Urine Appearance Cloudy H (Clear) Urine Protein Trace H (Negative) Urine Blood Moderate H (Negative) Urine Nitrite Positive H (Negative) Ur Leukocyte Esterase Large H (Negative) Urine RBC 17 H (0-5) /hpf Urine WBC 87 H (0-5) /hpf Urine WBC Clumps Many H (None) /hpf Amorphous Sediment Rare H (None) /hpf Urine Bacteria Many H (None) /hpf Urine Mucus Rare H (None) /hpf 08/21/20 08/21/20 08/21/20 Range/Units 02:40 06:00 08:10 WBC (3.8-10.6) k/uL RDW (11.5-15.5) % Neutrophils # (1.3-7.7) k/uL PT 15.6 H (9.0-12.0) sec INR 1.47 H (<1.2) Sodium (137-145) mmol/L BUN 37 H (7-17) mg/dL Creatinine 0.44 L (0.52-1.04) mg/dL Glucose 133 H (74-99) mg/dL POC Glucose (mg/dL) 104 H (75-99) mg/dL Plasma Lactic Acid Buddy (0.7-2.0) mmol/L Alkaline Phosphatase (38-126) U/L Albumin 3.3 L (3.5-5.0) g/dL Urine Appearance (Clear) Urine Protein (Negative) Urine Blood (Negative) Urine Nitrite (Negative) Ur Leukocyte Esterase (Negative) Urine RBC (0-5) /hpf Urine WBC (0-5) /hpf Urine WBC Clumps (None) /hpf Amorphous Sediment (None) /hpf Urine Bacteria (None) /hpf Urine Mucus (None) /hpf 08/21/20 Range/Units 11:42 WBC (3.8-10.6) k/uL RDW (11.5-15.5) % Neutrophils # (1.3-7.7) k/uL PT (9.0-12.0) sec INR (<1.2) Sodium (137-145) mmol/L BUN (7-17) mg/dL Creatinine (0.52-1.04) mg/dL Glucose (74-99) mg/dL POC Glucose (mg/dL) 117 H (75-99) mg/dL Plasma Lactic Acid Buddy (0.7-2.0) mmol/L Alkaline Phosphatase (38-126) U/L Albumin (3.5-5.0) g/dL Urine Appearance (Clear) Urine Protein (Negative) Urine Blood (Negative) Urine Nitrite (Negative) Ur Leukocyte Esterase (Negative) Urine RBC (0-5) /hpf Urine WBC (0-5) /hpf Urine WBC Clumps (None) /hpf Amorphous Sediment (None) /hpf Urine Bacteria (None) /hpf Urine Mucus (None) /hpf Assessment and Plan Assessment: 1-patient with leukocytosis which is multifactorial in this patient who did have a chronic indwelling Gross catheter and did have significantly positive UA with concern for possible catheter associated UTI 2-positive blood culture with gram-positive cocci in clusters question related UTI versus skin source if it turns out to be staph epi and will be disregarded as possible contaminant (1) Gram-positive bacteremia Current Visit: Yes Status: Acute Code(s): R78.81 - BACTEREMIA SNOMED Code(s): 571372713641 (2) Urinary tract infection Current Visit: No Status: Acute Code(s): N39.0 - URINARY TRACT INFECTION, SITE NOT SPECIFIED SNOMED Code(s): 25678186 Plan: 1-blood cultures will be repeated document clearance of bacteremia 2-discontinue Zosyn 3-we will start patient on Rocephin 1 g daily 4-vancomycin pharmacy to dose her with a target trough of 15 while watching her kidney function and Vanco trough closely. We will follow on clinical condition and cultures to further adjust medication if needed Thank you for this consultation we will follow the patient along with you Time with Patient: Greater than 30
[2020-08-22] MEDS ORDERED: VANCOMYCIN 1,500 MG in SODIUM CHLORIDE 0.9% 250 ML IVPB ONE ×2
[2020-08-22] MEDS: METOPROLOL TARTRATE 50 MG TAB PEG/G-TUBE SCH ×3 (05:08→20:59)
[2020-08-22] MEDS: GABAPENTIN 100 MG CAP PEG/G-TUBE SCH ×3 (05:08→20:59)
[2020-08-22] MEDS: DILTIAZEM ORAL 30 MG TAB PEG/G-TUBE SCH ×2 (05:13→16:54)
[2020-08-22 05:42] LABS: Anisocytosis Slight; Basophils # (A) 0.1 k/uL (0-0.2); Basophils % (A) 1 %; Eosinophils # (A) 0.5 k/uL (0-0.7); Eosinophils % (A) 5 %; HCT 39.4 % (34.0-46.0); Hypochromasia Marked; Lymphocytes # (A) 1.8 k/uL (1.0-4.8); Lymphocytes % (A) 19 %; MCH 24.9 pg (25.0-35.0); MCHC 30.4 g/dL (31.0-37.0); MCV 82.1 fL (80.0-100.0); Mean Platelet Volume 8.3; Microcytosis Slight; Monocytes # (A) 0.4 k/uL (0-1.0); Monocytes % (A) 5 %; Neutrophils # (A) 6.2 k/uL (1.3-7.7); Neutrophils % (A) 68 %; Platelet Count 250 k/uL (150-450); RDW 19.7 % (11.5-15.5); WBC 9.1 k/uL (3.8-10.6)
[2020-08-22 05:43] LABS: Glucose,Whole Blood 184 mg/dL (75-99)
[2020-08-22 05:46] LABS: INR 1.5 (<1.2); Partial Thromboplastin Time 59.5 sec (22.0-30.0); Prothrombin Time 15.1 sec (9.0-12.0)
[2020-08-22 05:56] LABS: ALT 25 U/L (4-34); AST 38 U/L (14-36); African American GFR (CKD) >90 (>60 ml/min/1.73 sqM); Albumin 3.1 g/dL (3.5-5.0); Alkaline Phosphatase 106 U/L (38-126); Anion Gap 9 mmol/L; Blood Urea Nitrogen 28 mg/dL (7-17); C Reactive Protein 2.2 mg/dL (<1.0); Carbon Dioxide 29 mmol/L (22-30); Chloride 102 mmol/L (98-107); Globulin 3.1 g/dL; Glucose 196 mg/dL (74-99); Non-African American GFR(CKD) >90 (>60 ml/min/1.73 sqM); Sodium 140 mmol/L (137-145); Total Bilirubin 0.5 mg/dL (0.2-1.3); Total Protein 6.2 g/dL (6.3-8.2)
--- NOTE | 2020-08-22 06:41 | HP ---
HISTORY AND PHYSICAL HISTORY OF PRESENT ILLNESS: 75-year-old white female who came in from the longterm for difficulty breathing, increased edema and swelling over the past 2 weeks. 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 She is unable to give a good history at all. She could not give a couple answers to questions. MEDICATIONS: Home medicines: Pravachol 40 mg PEG tube, Keppra 100 PEG tube daily, aspirin 81 daily, Tylenol 650 q.6 p.r.n., multivitamin daily, DuoNeb updraft q.i.d., Lasix 40 mg PEG tube daily, gabapentin 100 mg PEG tube t.i.d. Accu-Chek protocol, insulin, Levemir 48 units daily, metformin 500 PEG tube b.i.d., Cardizem 30 mg PEG tube t.i.d., metoprolol 100 mg t.i.d., Coumadin taper. ALLERGIES: CIPRO, QUINOLONES. PAST MEDICAL HISTORY: Atrial fibrillation, atrial flutter, asthma, cancer, heart failure, CVA, TIA, dementia, diabetes, GERD, GI bleed, dyslipidemia, hypertension, pneumonia, sleep apnea, prior CVAs, rectus sheath hematoma, multiple PEG tube infections, history of MRSA in the PEG tube. PAST SURGICAL HISTORY: Breast surgery, cardiac valve replacement, heart catheterization with stent, hysterectomy, orthopedic surgery, pacemaker, tonsillectomy. FAMILY HISTORY: Father with a GI bleed. Mother cancer, CVA. PHYSICAL EXAMINATION: PSYCH: Altered mental status. CARDIOVASCULAR: S1, S2. LUNGS clear. Rales at the base. GI is distended. HEMATOLOGIC: Generalized edema. NEUROLOGIC: Alert and oriented x3. Temperature 98.6, pulse 69 to 93, respiratory 16 to 18, blood pressure is 170s over 80s. Labs reviewed. ASSESSMENT: 1. Dyspnea. 2. Lactic acidosis. 3. Peripheral edema. 4. Generalized edema. 5. Urinary tract infection with sepsis. Prognosis is guarded. Cardiology and Infectious Disease will be consulted. MMODL / IJN: [id number] /
[2020-08-22 07:09] LABS: Glucose,Whole Blood 196 mg/dL (75-99)
[2020-08-22] MEDS: metFORMIN 500 MG TAB PEG/G-TUBE SCH ×2 (08:48→16:54)
[2020-08-22] MEDS: ASPIRIN 81 MG PEG/G-TUBE SCH (08:48)
[2020-08-22] MEDS: CHOLESTYRAMINE (WITH SUGAR) 4 GM PACKET PEG/G-TUBE SCH (08:48)
[2020-08-22] MEDS: FUROSEMIDE 40 MG TAB PEG/G-TUBE SCH ×2 (08:48→16:54)
[2020-08-22] MEDS: levETIRAcetam ORAL SOLN 500 MG/5 ML CUP PEG/G-TUBE SCH (08:49)
[2020-08-22] MEDS ORDERED: VANCOMYCIN 1,500 MG in SODIUM CHLORIDE 0.9% 250 ML IVPB SCH (11:00)
--- NOTE | 2020-08-22 11:02 | P.PN ---
Subjective This is a 75-year-old female seen and evaluated yesterday by Dr. Amaya. She is currently maintained on IV heparin infusion to bridge her s ubtherapeutic INR that she is maintained on for history of mechanical mitral valve replacement from 2000. She is seen and examined resting comfortably laying flat in no acute distress. She is currently being treated for gram- positive bacteremia, infectious disease is following. Likely source is catheter associated UTI. Blood pressure 142/75 heart rate 70 afebrile maintaining oxygen saturation on room air. Laboratory data reviewed, WBC 9.1, hemoglobin 12, platelets 250, INR 1.5, sodium 140, potassium 4 creatinine 0.55. GENERAL: In no acute distress, non-verbal NECK: Supple without JVD or thyromegaly. LUNGS: Breath sounds clear to auscultation bilaterally. Respiration equal and unlabored. No wheezes, rales or rhonchi. HEART: Regular rate and rhythm with mechanical click, no significant murmurs, rubs or gallops. S1 and S2 heard. EXTREMITIES: Normal range of motion, trace bilateral lower extremity non-pitting edema. No clubbing or cyanosis. Peripheral pulses intact. ASSESSMENT History of mechanical mitral valve replacement Subtherapeutic INR Bacteremia PLAN Continue bridging with heparin for therapeutic INR of 2.5-3.5. Pharmacy is dosing warfarin. Ongoing antibiotic therapy per infectious disease. No further cardiac recommendations, we will follow along as needed. Nurse Practitioner note has been reviewed, I agree with a documented findings and plan of care. Patient was seen and examined. Objective - Vital Signs Vital signs: Vital Signs Temp 98.3 F 08/22/20 07:50 Pulse 70 08/22/20 07:50 Resp 18 08/22/20 07:50 BP 142/75 08/22/20 07:50 Pulse Ox 92 L 08/22/20 07:50 Intake & Output 08/21/20 08/22/20 08/22/20 18:59 06:59 18:59 Output Total 480 450 Balance -480 -450 Weight 91 kg Output: Urine 480 450 Other: Voiding Method Indwelling Catheter Indwelling Catheter - Labs CBC & Chem 7: 08/22/20 04:31 08/22/20 04:31 Labs: Abnormal Lab Results - Last 24 Hours (Table) 08/21/20 08/21/20 08/21/20 Range/Units 08:10 11:42 17:14 MCH (25.0-35.0) pg MCHC (31.0-37.0) g/dL RDW (11.5-15.5) % PT 15.6 H (9.9-11.9) sec INR 1.47 H (0.90-1.11) APTT (22.0-30.0) sec BUN (7-17) mg/dL Glucose (74-99) mg/dL POC Glucose (mg/dL) 117 H 162 H (75-99) mg/dL AST (14-36) U/L C-Reactive Protein (<1.0) mg/dL Total Protein (6.3-8.2) g/dL Albumin (3.5-5.0) g/dL Urine Protein (Negative) Urine Blood (Negative) Ur Leukocyte Esterase (Negative) Urine RBC (0-5) /hpf Urine WBC (0-5) /hpf Urine Bacteria (None) /hpf Urine Mucus (None) /hpf 08/21/20 08/21/20 08/21/20 Range/Units 18:34 20:05 22:08 MCH (25.0-35.0) pg MCHC (31.0-37.0) g/dL RDW (11.5-15.5) % PT (9.9-11.9) sec INR (0.90-1.11) APTT 59.4 H (22.0-30.0) sec BUN (7-17) mg/dL Glucose (74-99) mg/dL POC Glucose (mg/dL) 169 H (75-99) mg/dL AST (14-36) U/L C-Reactive Protein (<1.0) mg/dL Total Protein (6.3-8.2) g/dL Albumin (3.5-5.0) g/dL Urine Protein Trace H (Negative) Urine Blood Small H (Negative) Ur Leukocyte Esterase Moderate H (Negative) Urine RBC 60 H (0-5) /hpf Urine WBC 35 H (0-5) /hpf Urine Bacteria Rare H (None) /hpf Urine Mucus Rare H (None) /hpf 08/22/20 08/22/20 08/22/20 Range/Units 04:31 04:31 04:31 MCH 24.9 L (25.0-35.0) pg MCHC 30.4 L (31.0-37.0) g/dL RDW 19.7 H (11.5-15.5) % PT 15.1 H (9.9-11.9) sec INR 1.5 H (0.90-1.11) APTT 59.5 H (22.0-30.0) sec BUN 28 H (7-17) mg/dL Glucose 196 H (74-99) mg/dL POC Glucose (mg/dL) (75-99) mg/dL AST 38 H (14-36) U/L C-Reactive Protein 2.2 H (<1.0) mg/dL Total Protein 6.2 L (6.3-8.2) g/dL Albumin 3.1 L (3.5-5.0) g/dL Urine Protein (Negative) Urine Blood (Negative) Ur Leukocyte Esterase (Negative) Urine RBC (0-5) /hpf Urine WBC (0-5) /hpf Urine Bacteria (None) /hpf Urine Mucus (None) /hpf 08/22/20 08/22/20 Range/Units 05:42 07:02 MCH (25.0-35.0) pg MCHC (31.0-37.0) g/dL RDW (11.5-15.5) % PT (9.9-11.9) sec INR (0.90-1.11) APTT (22.0-30.0) sec BUN (7-17) mg/dL Glucose (74-99) mg/dL POC Glucose (mg/dL) 184 H 196 H (75-99) mg/dL AST (14-36) U/L C-Reactive Protein (<1.0) mg/dL Total Protein (6.3-8.2) g/dL Albumin (3.5-5.0) g/dL Urine Protein (Negative) Urine Blood (Negative) Ur Leukocyte Esterase (Negative) Urine RBC (0-5) /hpf Urine WBC (0-5) /hpf Urine Bacteria (None) /hpf Urine Mucus (None) /hpf Microbiology - Last 24 Hours (Table) 08/21/20 18:34 Urine Culture - Preliminary Urine,Catheterized 08/20/20 23:27 Blood Culture - Preliminary Blood No Growth after 24 hours 08/20/20 23:27 Blood Culture Gram Stain - Preliminary Blood Blood Culture - Preliminary Coagulase Negative Staph 08/20/20 23:27 Blood Culture - Final Blood 08/20/20 23:27 Urine Culture - Preliminary Urine,Voided
[2020-08-22] MEDS: HEPARIN SOD,PORK IN 0.45% NACL 25,000 UNIT in 0.45% NACL 1 250ML.BAG IV SCH (11:29)
[2020-08-22 11:59] LABS: Glucose,Whole Blood 215 mg/dL (75-99)
--- NOTE | 2020-08-22 12:02 | P.CNPUL ---
History of Present Illness Consult date: 08/22/20 Reason for consult: dyspnea, hypoxemia, pneumonia Chief complaint: Pneumonia History of present illness: is a 75-year-old nonverbal and noncommunicative, brought into emergency department for progressive edema, patient has advanced dementia and Alzheimer's disease, prior history of subarachnoid hemorrhage and stroke, does comprehend simple conversation, prior history is significant for atrial flutter fibrillatio n, history of stroke, dementia and thymus disease, GERD, history of GI bleed, hypertension hypertensive cardiovascular disease, resident of [facility], significant laboratory data on arrival noted to have a elevated WBC count of 12,000, lactic acid is 3.9, patient has been on room air, patient was started on Zosyn, admitted chest x-ray suggestive of left basilar opacity likely atelectasis of chronic infiltrate,, antibiotics have been switched to Rocephin, patient has been on anticoagulation with Coumadin, has been on heparin as well Review of Systems ROS unobtainable: due to mental status Past Medical History Past Medical History: Atrial Fibrillation, Atrial Flutter, Asthma, Cancer, Heart Failure, CVA/TIA, Dementia, Diabetes Mellitus, GERD/Reflux, GI Bleed, Hyperlipidemia, Hypertension, Pneumonia, Sleep Apnea/CPAP/BIPAP Additional Past Medical History / Comment(s): Verified with [facility] papers r/t son Jose Rafael being unsure of history. Jose Rafael states he is also pt's DPOA. 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, post traumatic seizures, History of Any Multi-Drug Resistant Organisms: MRSA Date of last positivie culture/infection: 06/11/20 MDRO Source:: MRSA PEG TUBE SITE Past Surgical History: Breast Surgery, Cardiac Valve Replacement, Heart Catheterization With Stent, Hysterectomy, Orthopedic Surgery, Pacemaker, Tonsillectomy Additional Past Surgical History / Comment(s): Peg tube, mechanical mitral valve 2000, polypectomy spinal cord/cyst removed, TEEs, CVNs, colonoscopies, bilateral cataract removal/lens implants, L rotator cuff repair, R femur fracture with IM hip/screw/nail, L breast lumpectomy, Past Anesthesia/Blood Transfusion Reactions: No Reported Reaction Date of Last Stent Placement:: 2006 Type of Cardiac Device: Permanent Pacemaker Device Placement Date:: 2009 Past Psychological History: Depression Additional Psychological History / Comment(s): Pt resides at [facility]. She is nonambulatory-get placed in wheelchair. She needs assist with all ADLs. Pt is NPO and has a peg tube. Smoking Status: Unknown if ever smoked Past Alcohol Use History: Unable to Obtain Additional Past Alcohol Use History / Comment(s): SMOKED OFF AND ON 1960 LESS T MICHEL A YEAR THEN QUIT Past Drug Use History: Unable to Obtain - Past Family History Father Family Medical History: GI Bleed Additional Family Medical History / Comment(s): OF BLEEDING ULCER AT AGE 64 Mother Family Medical History: Cancer, CVA/TIA Additional Family Medical History / Comment(s): HX STROKES, COLON CANCER Medications and Allergies Home Medications Medication Instructions Recorded Confirmed Type Pravastatin Sodium [Pravachol] 40 mg PEG/G-TUBE HS@2100 05/20/17 08/20/20 History levETIRAcetam [Keppra Oral 100 mg PEG/G-TUBE DAILY@0800 09/27/17 08/20/20 History Solution] Aspirin 81 mg PEG/G-TUBE DAILY@0800 05/30/18 08/20/20 History Acetaminophen Oral Susp [Tylenol] 650 mg PEG/G-TUBE Q6H PRN 12/25/19 08/20/20 History Multivitamins, Thera Liquid 5 ml PEG/G-TUBE DAILY@1700 12/25/19 08/20/20 History [Theragran Liquid (formulary)] bisacodyL [Dulcolax] 10 mg RECTAL DAILY PRN 12/25/19 08/20/20 History Ipratropium-Albuterol Nebulize 3 ml INHALATION RT-Q6H PRN 06/11/20 08/20/20 History [Duoneb 0.5 mg-3 mg/3 ml Soln] Na Phos,M-B/Na Phos,Di-Ba [Fleet 133 ml RECTAL DAILY PRN 06/11/20 08/20/20 History Adult] Cholestyramine (with Sugar) 4 gm PEG/G-TUBE DAILY@0800 packet 06/14/20 08/20/20 Rx [Questran Packet] Loratadine [Claritin] 10 mg PEG/G-TUBE DAILY@1700 tab 06/14/20 08/20/20 Rx Furosemide [Lasix] 40 mg PEG/G-TUBE BID@0800,1700 06/24/20 08/20/20 History Gabapentin Oral Soln [Neurontin 100 mg PEG/G-TUBE 06/24/20 08/20/20 History Oral Soln] TID@0600,1400,2100 INSULIN ASPART (NovoLOG) [NovoLOG See Protocol SQ 06/24/20 08/20/20 History (formulary)] ACHS@07,11,1630,2130 Insulin Detemir (Levemir) [Levemir] 48 unit SQ HS@2130 06/24/20 08/20/20 History metFORMIN HCL [Glucophage] 500 mg PEG/G-TUBE BID@0800,1700 06/24/20 08/20/20 History Ferrous Sulfate Oral Elixir 300 mg PEG/G-TUBE DAILY@1700 ml 06/29/20 08/20/20 Rx [Feosol Liquid] Magnesium Hydroxide [Milk of 2,400 mg PEG/G-TUBE DAILY PRN ml 06/29/20 08/20/20 Rx Magnesia Concentrate] Nitroglycerin Sl Tabs [Nitrostat] 0.4 mg SUBLINGUAL Q5M PRN tab 06/29/20 08/20/20 Rx Diltiazem Oral [Cardizem*] 30 mg PEG/G-TUBE BID@0600,1700 07/15/20 08/20/20 History Metoprolol Tartrate [Lopressor] 100 mg PEG/G-TUBE 07/15/20 08/20/20 History TID@0600,1400,2200 Warfarin [Coumadin] See Taper PO DAILY@1700 08/20/20 08/20/20 History Allergies Allergy/AdvReac Type Severity Reaction Status Date / Time ciprofloxacin [From Cipro] Allergy Rash/Hives Verified 08/20/20 20:13 ciprofloxacin HCl Allergy Rash/Hives Verified 08/20/20 20:13 [From Cipro] Quinolones Allergy Unknown Verified 08/20/20 20:13 Physical Exam Vitals: Vital Signs Temp Pulse Resp BP Pulse Ox 08/22/20 07:50 98.3 F 70 18 142/75 92 L 08/22/20 01:40 98.7 F 67 16 137/78 98 08/21/20 20:00 67 08/21/20 19:54 97.4 F L 67 17 119/70 98 08/21/20 14:41 97.5 F L 100 142/56 95 Intake and Output 08/21/20 08/22/20 08/22/20 22:59 06:59 14:59 Intake Total 208.894 Output Total 450 Balance -450 208.894 Intake: Intake, IV Titration 208.894 Amount Heparin Sod,Pork in 0.45% 208.894 NaCl 25,000 unit In 0.45 % NaCl 1 250ml.bag @ 11 UNITS/KG/HR 9.979 mls/hr IV .Q24H [facility] Rx#: [id number] Output: Urine 450 Other: Voiding Method Indwelling Catheter Indwelling Catheter Weight 91 kg 91 kg - Constitutional General appearance: average body habitus, disheveled - EENT Eyes: EOMI, PERRLA Ears: bilateral: normal - Neck Carotids: bilateral: upstroke normal Thyroid: bilateral: normal size - Respiratory Respiratory: bilateral: CTA - Cardiovascular Rhythm: irregularly irregular Heart sounds: normal: S1, S2 - Gastrointestinal General gastrointestinal: normal bowel sounds - Neurologic Neurologic: CNII-XII intact - Musculoskeletal Musculoskeletal: gait normal, generalized weakness, strength equal bilaterally - Psychiatric Psychiatric: A&O x's 3, appropriate affect, intact judgment & insight Results - Laboratory Findings CBC and BMP: 08/22/20 04:31 08/22/20 04:31 PT/INR, D-dimer PT 15.1 sec (9.0-12.0) H 08/22/20 04:31 INR 1.5 (<1.2) H 08/22/20 04:31 Abnormal lab findings: Abnormal Labs 08/20/20 08/20/20 08/20/20 20:57 20:57 20:57 WBC 12.1 H MCH MCHC RDW 19.9 H Neutrophils # 8.7 H PT 15.8 H INR 1.6 H APTT Sodium 136 L BUN 40 H Creatinine 0.46 L Glucose 215 H POC Glucose (mg/dL) Plasma Lactic Acid Buddy AST Alkaline Phosphatase 145 H C-Reactive Protein Total Protein Albumin Urine Appearance Urine Protein Urine Blood Urine Nitrite Ur Leukocyte Esterase Urine RBC Urine WBC Urine WBC Clumps Amorphous Sediment Urine Bacteria Urine Mucus 08/20/20 08/20/20 08/21/20 20:57 23:27 02:40 WBC 10.7 H MCH MCHC RDW 19.9 H Neutrophils # PT INR APTT Sodium BUN Creatinine Glucose POC Glucose (mg/dL) Plasma Lactic Acid Buddy 3.9 H* AST Alkaline Phosphatase C-Reactive Protein Total Protein Albumin Urine Appearance Cloudy H Urine Protein Trace H Urine Blood Moderate H Urine Nitrite Positive H Ur Leukocyte Esterase Large H Urine RBC 17 H Urine WBC 87 H Urine WBC Clumps Many H Amorphous Sediment Rare H Urine Bacteria Many H Urine Mucus Rare H 08/21/20 08/21/20 08/21/20 02:40 06:00 08:10 WBC MCH MCHC RDW Neutrophils # PT 15.6 H INR 1.47 H APTT Sodium BUN 37 H Creatinine 0.44 L Glucose 133 H POC Glucose (mg/dL) 104 H Plasma Lactic Acid Buddy AST Alkaline Phosphatase C-Reactive Protein Total Protein Albumin 3.3 L Urine Appearance Urine Protein Urine Blood Urine Nitrite Ur Leukocyte Esterase Urine RBC Urine WBC Urine WBC Clumps Amorphous Sediment Urine Bacteria Urine Mucus 08/21/20 08/21/20 08/21/20 11:42 17:14 18:34 WBC MCH MCHC RDW Neutrophils # PT INR APTT Sodium BUN Creatinine Glucose POC Glucose (mg/dL) 117 H 162 H Plasma Lactic Acid Buddy AST Alkaline Phosphatase C-Reactive Protein Total Protein Albumin Urine Appearance Urine Protein Trace H Urine Blood Small H Urine Nitrite Ur Leukocyte Esterase Moderate H Urine RBC 60 H Urine WBC 35 H Urine WBC Clumps Amorphous Sediment Urine Bacteria Rare H Urine Mucus Rare H 08/21/20 08/21/20 08/22/20 20:05 22:08 04:31 WBC MCH MCHC RDW Neutrophils # PT 15.1 H INR 1.5 H APTT 59.4 H 59.5 H Sodium BUN Creatinine Glucose POC Glucose (mg/dL) 169 H Plasma Lactic Acid Buddy AST Alkaline Phosphatase C-Reactive Protein Total Protein Albumin Urine Appearance Urine Protein Urine Blood Urine Nitrite Ur Leukocyte Esterase Urine RBC Urine WBC Urine WBC Clumps Amorphous Sediment Urine Bacteria Urine Mucus 08/22/20 08/22/20 08/22/20 04:31 04:31 05:42 WBC MCH 24.9 L MCHC 30.4 L RDW 19.7 H Neutrophils # PT INR APTT Sodium BUN 28 H Creatinine Glucose 196 H POC Glucose (mg/dL) 184 H Plasma Lactic Acid Buddy AST 38 H Alkaline Phosphatase C-Reactive Protein 2.2 H Total Protein 6.2 L Albumin 3.1 L Urine Appearance Urine Protein Urine Blood Urine Nitrite Ur Leukocyte Esterase Urine RBC Urine WBC Urine WBC Clumps Amorphous Sediment Urine Bacteria Urine Mucus 08/22/20 07:02 WBC MCH MCHC RDW Neutrophils # PT INR APTT Sodium BUN Creatinine Glucose POC Glucose (mg/dL) 196 H Plasma Lactic Acid Buddy AST Alkaline Phosphatase C-Reactive Protein Total Protein Albumin Urine Appearance Urine Protein Urine Blood Urine Nitrite Ur Leukocyte Esterase Urine RBC Urine WBC Urine WBC Clumps Amorphous Sediment Urine Bacteria Urine Mucus - Diagnostic Findings Chest x-ray: report reviewed, image reviewed Assessment and Plan Assessment: Left-sided pneumonia Sepsis Urinary tract infection, History of stroke/subarachnoid hemorrhage Bedbound status Plan: Continue supplemental oxygen Deep breathing exercise incentive spirometry Broad-spectrum antibiotics Further plan of care as per clinical response of the patient Time with Patient: Greater than 30
[2020-08-22] MEDS: LORATADINE 10 MG TAB PEG/G-TUBE SCH (16:54)
[2020-08-22] MEDS: MULTIVITAMINS, THERA LIQUID 237 ML BOTTLE PEG/G-TUBE SCH (16:54)
[2020-08-22] MEDS: FERROUS SULFATE ORAL ELIXIR 300 MG/5 ML CUP PEG/G-TUBE SCH (16:54)
[2020-08-22 17:15] LABS: Glucose,Whole Blood 230 mg/dL (75-99)
[2020-08-22] MEDS ORDERED: WARFARIN 3 MG TAB PO SCH (18:00)
[2020-08-22] MEDS ORDERED: WARFARIN 5 MG TAB PO SCH (18:00)
[2020-08-22 20:28] LABS: Glucose,Whole Blood 184 mg/dL (75-99)
[2020-08-22] MEDS: INSULIN DETEMIR (LEVEMIR) 100 UNIT/ML SYR SQ SCH (21:10)
[2020-08-22 23:02] LABS: Glucose,Whole Blood 192 mg/dL (75-99)
--- NOTE | 2020-08-22 23:32 | PN ---
PROGRESS NOTE DATE OF SERVICE: 08/22/2020 REASON FOR FOLLOWUP: 1. Catheter-associated infection. 2. Positive blood culture. INTERVAL HISTORY: Patient is currently afebrile, patient is breathing comfortably. The patient is hemodynamically stable. The patient is sleepy, lethargic. ( ) No vomiting, diarrhea or any other changes reported by nursing staff. PHYSICAL EXAMINATION: Blood pressure 145/76, pulse of 65, temperature of 98.7. She is 94% on room air. GENERAL DESCRIPTION: Is an elderly female, lying in bed, in no distress. RESPIRATORY SYSTEM: Unlabored breathing, clear to auscultation anteriorly. HEART: S1, S2. Regular rate and rhythm. ABDOMEN: Normal bowel sounds. LABS: Blood culture with coagulase negative staph. Urine culture is pending. DIAGNOSTIC IMPRESSION AND PLAN: 1. Patient admitted to the hospital with shortness of breath. ( ) this patient did have a component of UTI, possible catheter- associated. Patient to continue Rocephin while waiting for urine culture to finalize. 2. Patient with positive blood culture, with coagulase negative staph likely skin contaminant. Discontinue vancomycin. MMODL / IJN: [id number] /
[2020-08-23 01:28] LABS: Glucose,Whole Blood 205 mg/dL (75-99)
--- NOTE | 2020-08-23 04:46 | PN ---
PROGRESS NOTE This is a 75-year-old white female with catheter associated infection, positive blood cultures. She is sleepy, lethargic. No vomiting or diarrhea. She is on tube feedings. Psych: She is giving some answers. Endocrine: BMI is over 41. Blood cultures, coagulase-negative Staph. She had a catheter associated UTI. Continue Rocephin. Wait for urine culture to finalize. Positive blood culture. Possible skin contaminant. Discontinue vancomycin. Prognosis guarded. Cardiology has seen for fluid overload. Await their recommendations. Cardiology saw the patient. Blood pressure is 142/75, pulse 70. White count 9.1, hemoglobin 12. ASSESSMENT: 1. Mechanical mitral valve replacement. 2. Subtherapeutic INR. 3. Bacteremia. Ongoing antibiotics pharmacy, continued dosing warfarin. Prognosis guarded. MMODL / IJN: [id number] /
[2020-08-23 05:05] LABS: Glucose,Whole Blood 159 mg/dL (75-99)
[2020-08-23] MEDS: DILTIAZEM ORAL 30 MG TAB PEG/G-TUBE SCH ×2 (05:28→17:37)
[2020-08-23] MEDS: GABAPENTIN 100 MG CAP PEG/G-TUBE SCH ×3 (05:29→20:48)
[2020-08-23] MEDS: METOPROLOL TARTRATE 50 MG TAB PEG/G-TUBE SCH ×3 (05:29→20:48)
[2020-08-23 05:32] LABS: Partial Thromboplastin Time 56.2 sec (22.0-30.0); Prothrombin Time 19.6 sec (9.0-12.0)
[2020-08-23 07:19] LABS: Glucose,Whole Blood 171 mg/dL (75-99)
[2020-08-23] MEDS: metFORMIN 500 MG TAB PEG/G-TUBE SCH ×2 (08:57→17:37)
[2020-08-23] MEDS: CHOLESTYRAMINE (WITH SUGAR) 4 GM PACKET PEG/G-TUBE SCH (08:57)
[2020-08-23] MEDS: FUROSEMIDE 40 MG TAB PEG/G-TUBE SCH ×2 (08:57→17:37)
[2020-08-23] MEDS: ASPIRIN 81 MG PEG/G-TUBE SCH (08:57)
[2020-08-23] MEDS: levETIRAcetam ORAL SOLN 500 MG/5 ML CUP PEG/G-TUBE SCH (08:57)
[2020-08-23 11:58] LABS: Glucose,Whole Blood 197 mg/dL (75-99)
[2020-08-23] MEDS: HEPARIN SOD,PORK IN 0.45% NACL 25,000 UNIT in 0.45% NACL 1 250ML.BAG IV SCH (13:23)
--- NOTE | 2020-08-23 14:06 | PN ---
PROGRESS NOTE DATE OF SERVICE: 08/23/2020 REASON FOR FOLLOWUP: 1. Urinary tract infection. 2. Positive blood culture. INTERVAL HISTORY: Patient is afebrile. The patient is currently sleepy and lethargic and unable to provide any history. Currently on room air. Hemodynamically stable. No vomiting, or diarrhea or any other changes reported by nursing staff. PHYSICAL EXAMINATION: Blood pressure 149/80 with a pulse of 77, temperature 98.7. She is 95% on room air. General description is an elderly female lying in bed in no distress. Respiratory system: Unlabored breathing. Clear to auscultation anteriorly. Heart S1, S2. Regular rate and rhythm. Abdomen soft, no tenderness. LABS: INR is 2.0. Blood culture coagulase negative Staph. Repeat urine culture so far pending. DIAGNOSTIC IMPRESSION AND PLAN: 1. Patient admitted to the hospital with shortness of breath, mental status changes, multifactorial with concern for possible urinary tract infection, catheter associated. Gross catheter has been changed. Repeat urine is currently pending. Continue Rocephin. 2. Positive blood culture with Staph epi likely contaminant. No need for any specific antibiotic therapy for the same. MMODL / IJN: [id number] /
[2020-08-23 17:35] LABS: Glucose,Whole Blood 203 mg/dL (75-99)
[2020-08-23] MEDS: LORATADINE 10 MG TAB PEG/G-TUBE SCH (17:37)
[2020-08-23] MEDS: MULTIVITAMINS, THERA LIQUID 237 ML BOTTLE PEG/G-TUBE SCH (17:38)
[2020-08-23] MEDS: FERROUS SULFATE ORAL ELIXIR 300 MG/5 ML CUP PEG/G-TUBE SCH (17:38)
[2020-08-23] MEDS ORDERED: WARFARIN 3 MG TAB PO ONE (18:00)
[2020-08-23 20:11] LABS: Glucose,Whole Blood 191 mg/dL (75-99)
[2020-08-23] MEDS: INSULIN DETEMIR (LEVEMIR) 100 UNIT/ML SYR SQ SCH (20:48)
--- NOTE | 2020-08-23 21:29 | PN ---
PROGRESS NOTE Ariane Eric is a 75-year-old white female with UTI with sepsis, fluid overload. Remains on broad-spectrum antibiotics. Dr. Chavira saw the patient for infection for positive blood culture, UTI. Sleepy, lethargic, unable to provide any history. She is getting room air. No nausea, vomiting, diarrhea. She is on tube feeding. She had prior stroke with esophageal dysmobility. 95 on room air, blood pressure 129/80, pulse 77, temp 98.7. Cardiovascular S1, S2. Lungs are clear. Abdomen is soft. No tenderness. INR is 2.0. Blood culture, coagulase-negative Staph. Repeat urine culture pending. Catheter associated UTI. Repeat urine is pending. Continue Rocephin. Positive blood culture, Staph epi, likely contaminant. Continue current antibiotics until urine culture comes back. Advance tube feedings. Prognosis guarded. MMODL / IJN: [id number] /
[2020-08-24 00:07] LABS: Glucose,Whole Blood 192 mg/dL (75-99)
[2020-08-24] MEDS: ACETAMINOPHEN ORAL SUSP (PEDS) 3,840 MG/120 ML BOTTLE PEG/G-TUBE PRN (04:34)
[2020-08-24 05:20] LABS: Glucose,Whole Blood 188 mg/dL (75-99)
[2020-08-24] MEDS: DILTIAZEM ORAL 30 MG TAB PEG/G-TUBE SCH ×2 (05:21→18:16)
[2020-08-24] MEDS: METOPROLOL TARTRATE 50 MG TAB PEG/G-TUBE SCH ×3 (05:21→22:29)
[2020-08-24] MEDS: GABAPENTIN 100 MG CAP PEG/G-TUBE SCH ×3 (05:21→22:29)
[2020-08-24 06:38] LABS: INR 2.6 (<1.2); Partial Thromboplastin Time 70.2 sec (22.0-30.0)
[2020-08-24 06:44] LABS: Anisocytosis Slight; Basophils # (A) 0.1 k/uL (0-0.2); Basophils % (A) 1 %; Eosinophils # (A) 0.6 k/uL (0-0.7); Eosinophils % (A) 7 %; HGB 11.7 gm/dL (11.4-16.0); Hypochromasia Marked; Lymphocytes # (A) 2.2 k/uL (1.0-4.8); Lymphocytes % (A) 27 %; MCHC 31.6 g/dL (31.0-37.0); MCV 82.3 fL (80.0-100.0); Mean Platelet Volume 9.1; Microcytosis Slight; Monocytes # (A) 0.5 k/uL (0-1.0); Monocytes % (A) 6 %; Neutrophils # (A) 4.9 k/uL (1.3-7.7); Neutrophils % (A) 59 %; Platelet Count 258 k/uL (150-450); RBC 4.49 m/uL (3.80-5.40); RDW 19.7 % (11.5-15.5); WBC 8.4 k/uL (3.8-10.6)
[2020-08-24 07:19] LABS: ALT 24 U/L (4-34); AST 32 U/L (14-36); African American GFR (CKD) >90 (>60 ml/min/1.73 sqM); Albumin 3.2 g/dL (3.5-5.0); Alkaline Phosphatase 124 U/L (38-126); Anion Gap 9 mmol/L; Blood Urea Nitrogen 21 mg/dL (7-17); Calcium 9.2 mg/dL (8.4-10.2); Carbon Dioxide 27 mmol/L (22-30); Chloride 105 mmol/L (98-107); Globulin 3.2 g/dL; Glucose 192 mg/dL (74-99); Non-African American GFR(CKD) >90 (>60 ml/min/1.73 sqM); Sodium 141 mmol/L (137-145); Total Bilirubin 0.2 mg/dL (0.2-1.3); Total Protein 6.4 g/dL (6.3-8.2)
[2020-08-24 07:20] LABS: Potassium 3.9 mmol/L (3.5-5.1)
[2020-08-24] MEDS: FUROSEMIDE 40 MG TAB PEG/G-TUBE SCH ×2 (08:07→17:59)
[2020-08-24] MEDS: ASPIRIN 81 MG PEG/G-TUBE SCH (08:07)
[2020-08-24] MEDS: metFORMIN 500 MG TAB PEG/G-TUBE SCH ×2 (08:07→17:58)
[2020-08-24] MEDS: levETIRAcetam ORAL SOLN 500 MG/5 ML CUP PEG/G-TUBE SCH (09:08)
[2020-08-24] MEDS: CHOLESTYRAMINE (WITH SUGAR) 4 GM PACKET PEG/G-TUBE SCH (09:09)
[2020-08-24] MEDS: HEPARIN SOD,PORK IN 0.45% NACL 25,000 UNIT in 0.45% NACL 1 250ML.BAG IV SCH (11:15)
[2020-08-24 11:28] LABS: Glucose,Whole Blood 193 mg/dL (75-99)
[2020-08-24] MEDS ORDERED: VANCOMYCIN IV PER PHARMACY 1 EACH MISC MISCELLANE PRN (14:45)
--- NOTE | 2020-08-24 16:13 | P.PN ---
Subjective Progress Note Date: 08/24/20 Principal diagnosis: Left-sided pneumonia Sepsis Urinary tract infection, History of stroke/subarachnoid hemorrhage Bedbound status 08/24/2020, patient seen eval examined remains on room air sister is present at bedside, patient remains on heparin drip, she is afebrile with temperature 90.7 hemodynamic status stable on room air oxygen saturation is 96%, PTT in therapeutic range 62, blood cultures have been negative, urine culture came back positive for methicillin-resistant staph aureus, patient has been on vancomycin off of Rocephin, ID has been following, Patient is a 75-year-old nonverbal and noncommunicative, brought into emergency department for progressive edema, patient has advanced dementia and Alzheimer's disease, prior history of subarachnoid hemorrhage and stroke, does comprehend simple conversation, prior history is significant for atrial flutter fibr illation, history of stroke, dementia and thymus disease, GERD, history of GI bleed, hypertension hypertensive cardiovascular disease, resident of [facility], significant laboratory data on arrival noted to have a elevated WBC count of 12,000, lactic acid is 3.9, patient has been on room air, patient was started on Zosyn, admitted chest x-ray suggestive of left basilar opacity likely atelectasis of chronic infiltrate,, antibiotics have been switched to Rocephin, patient has been on anticoagulation with Coumadin, has been on heparin as well Objective - Vital Signs Vital signs: Vital Signs Temp 98.7 F 08/24/20 14:02 Pulse 72 08/24/20 14:02 Resp 20 08/24/20 14:02 BP 161/81 08/24/20 14:02 Pulse Ox 96 08/24/20 14:02 Intake & Output 08/23/20 08/24/20 08/24/20 18:59 06:59 18:59 Intake Total 250 221.808 Output Total 300 1200 Balance -50 -1200 221.808 Weight 85.5 kg 86 kg Intake: Intake, IV Titration 250 221.808 Amount Heparin Sod,Pork in 0.45% 250 221.808 NaCl 25,000 unit In 0.45 % NaCl 1 250ml.bag @ 11 UNITS/KG/HR 9.979 mls/hr IV .Q24H [facility] Rx#: [id number] Output: Urine 300 1200 Other: Voiding Method Indwelling Catheter Indwelling Catheter Indwelling Catheter # Bowel Movements 1 1 - Exam - Constitutional General appearance: average body habitus, disheveled - EENT Eyes: EOMI, PERRLA Ears: bilateral: normal - Neck Carotids: bilateral: upstroke normal Thyroid: bilateral: normal size - Respiratory Respiratory: bilateral: CTA - Cardiovascular Rhythm: irregularly irregular Heart sounds: normal: S1, S2 - Gastrointestinal General gastrointestinal: normal bowel sounds - Neurologic Neurologic: CNII-XII intact, mostly nonverbal sometime communicates nonverbally - Musculoskeletal Musculoskeletal: Bed bound - Labs CBC & Chem 7: 08/24/20 05:35 08/24/20 05:35 Labs: Abnormal Lab Results - Last 24 Hours (Table) 08/23/20 08/23/20 08/24/20 Range/Units 17:32 20:10 00:06 RDW (11.5-15.5) % PT (9.0-12.0) sec INR (<1.2) APTT (22.0-30.0) sec BUN (7-17) mg/dL Creatinine (0.52-1.04) mg/dL Glucose (74-99) mg/dL POC Glucose (mg/dL) 203 H 191 H 192 H (75-99) mg/dL Albumin (3.5-5.0) g/dL 08/24/20 08/24/20 08/24/20 Range/Units 05:18 05:35 05:35 RDW 19.7 H (11.5-15.5) % PT (9.0-12.0) sec INR (<1.2) APTT (22.0-30.0) sec BUN 21 H (7-17) mg/dL Creatinine 0.47 L (0.52-1.04) mg/dL Glucose 192 H (74-99) mg/dL POC Glucose (mg/dL) 188 H (75-99) mg/dL Albumin 3.2 L (3.5-5.0) g/dL 08/24/20 08/24/20 08/24/20 Range/Units 05:35 11:26 11:43 RDW (11.5-15.5) % PT 25.0 H (9.0-12.0) sec INR 2.6 H (<1.2) APTT 70.2 H 62.8 H (22.0-30.0) sec BUN (7-17) mg/dL Creatinine (0.52-1.04) mg/dL Glucose (74-99) mg/dL POC Glucose (mg/dL) 193 H (75-99) mg/dL Albumin (3.5-5.0) g/dL Microbiology - Last 24 Hours (Table) 08/22/20 11:42 Blood Culture - Preliminary Blood No Growth after 48 hours 08/21/20 18:34 Urine Culture - Final Urine,Catheterized Methicillin resist S. aureus 08/22/20 04:31 Blood Culture - Preliminary Blood No Growth after 48 hours 08/20/20 23:27 Blood Culture - Preliminary Blood No Growth after 72 hours Assessment and Plan Assessment: MRSA UTI Left-sided atelectasis Sepsis due to MRSA UTI Urinary tract infection, History of stroke/subarachnoid hemorrhage Bedbound status Plan: Continue supplemental oxygen as needed, patient to be monitor observe off of supplemental oxygen, doubt pneumonia being an issue Deep breathing exercise incentive spirometry Antibiotics have been adjusted to more focused treatment of urinary tract infection Further plan of care as per clinical response of the patient Time with Patient: Greater than 30
[2020-08-24 16:20] LABS: Glucose,Whole Blood 212 mg/dL (75-99)
--- NOTE | 2020-08-24 17:54 | PN ---
PROGRESS NOTE DATE OF SERVICE: 08/24/2020 REASON FOR FOLLOWUP: Urinary tract infection. INTERVAL HISTORY: The patient did have a low-grade fever of 100.2 this morning. The patient is afebrile. The patient is lethargic and did not provide any history. No vomiting, diarrhea or other change reported by the nursing staff. PHYSICAL EXAMINATION: Blood pressure 151/81 with a pulse of 72, temperature 98.7. She is 96% on room air. GENERAL DESCRIPTION is an elderly female, lying in bed, in no distress. RESPIRATORY SYSTEM: Unlabored breathing, clear to auscultation anteriorly. HEART S1, S2. Regular rate and rhythm. ABDOMEN: Soft. LABS: Hemoglobin 11.1, white count 8.4, BUN of 21, creatinine 0.47. DIAGNOSTIC IMPRESSION AND PLAN: Patient admitted to the hospital shortness of breath which is multifactorial, possible component of urinary tract infection. Urine is now showing MRSA. The patient did have a low-grade fever. Gross catheter has been changed. We will discontinue Rocephin, start the patient on vancomycin and monitor clinical course closely. Continue supportive care. MMODL / IJN: [id number] /
[2020-08-24] MEDS: LORATADINE 10 MG TAB PEG/G-TUBE SCH (17:58)
[2020-08-24] MEDS: VANCOMYCIN 1,500 MG in SODIUM CHLORIDE 0.9% 250 ML IVPB SCH (17:59)
[2020-08-24] MEDS ORDERED: WARFARIN 5 MG TAB PO ONE (18:00)
[2020-08-24] MEDS: MULTIVITAMINS, THERA LIQUID 237 ML BOTTLE PEG/G-TUBE SCH (18:15)
[2020-08-24] MEDS: FERROUS SULFATE ORAL ELIXIR 300 MG/5 ML CUP PEG/G-TUBE SCH (18:15)
[2020-08-24 22:19] LABS: Glucose,Whole Blood 204 mg/dL (75-99)
[2020-08-24] MEDS: INSULIN DETEMIR (LEVEMIR) 100 UNIT/ML SYR SQ SCH (22:30)
--- NOTE | 2020-08-25 00:10 | PN ---
PROGRESS NOTE White female, 75, who was admitted with UTI, fluid overload, altered mental status. Prior stroke with encephalomalacia and esophageal dysmobility. She remains on broad- spectrum IV antibiotics. Waiting for culture and sensitivity. She had a positive blood culture, which is being rechecked to make sure it was not skin contamination. Cardiovascular: S1-S2. Lungs: Clear. GI: Soft. Hematology: Negative Homans. ASSESSMENT: Wound bacteremia, UTI, urosepsis, CVA, esophageal dysmobility. Prognosis guarded. Follow up in next 24 to 48 hours for possible discharge back to rehab center. Pipe Supervisor has evaluated her for fluid overload. Continue current treatment. MMODL / IJN: [id number] /
[2020-08-25 00:12] LABS: Glucose,Whole Blood 180 mg/dL (75-99)
[2020-08-25 05:40] LABS: Glucose,Whole Blood 187 mg/dL (75-99)
[2020-08-25] MEDS: VANCOMYCIN 1,500 MG in SODIUM CHLORIDE 0.9% 250 ML IVPB SCH ×2 (05:55→18:13)
[2020-08-25] MEDS: DILTIAZEM ORAL 30 MG TAB PEG/G-TUBE SCH ×2 (05:56→15:19)
[2020-08-25] MEDS: METOPROLOL TARTRATE 50 MG TAB PEG/G-TUBE SCH ×3 (05:56→21:39)
[2020-08-25] MEDS: GABAPENTIN 100 MG CAP PEG/G-TUBE SCH ×3 (05:56→21:39)
[2020-08-25 06:38] LABS: Partial Thromboplastin Time 34.8 sec (22.0-30.0); Prothrombin Time 29.4 sec (9.0-12.0)
[2020-08-25] MEDS: FUROSEMIDE 40 MG TAB PEG/G-TUBE SCH ×2 (09:31→15:19)
[2020-08-25] MEDS: metFORMIN 500 MG TAB PEG/G-TUBE SCH ×2 (09:31→15:19)
[2020-08-25] MEDS: ASPIRIN 81 MG PEG/G-TUBE SCH (09:31)
[2020-08-25] MEDS: CHOLESTYRAMINE (WITH SUGAR) 4 GM PACKET PEG/G-TUBE SCH (09:31)
[2020-08-25] MEDS: levETIRAcetam ORAL SOLN 500 MG/5 ML CUP PEG/G-TUBE SCH (09:32)
--- NOTE | 2020-08-25 11:23 | P.PN ---
Subjective Progress Note Date: 08/25/20 Principal diagnosis: Left-sided pneumonia Sepsis Urinary tract infection, History of stroke/subarachnoid hemorrhage Bedbound status 08/25/2020, patient seen eval examined overall no significant change is present breathing comfortably remains on room air is relatively more awake today, remains afebrile, hemodynamic status stable oxygen saturation 95% 08/24/2020, patient seen eval examined remains on room air sister is present at bedside, patient remains on heparin drip, she is afebrile with temperature 90.7 hemodynamic status stable on room air oxygen saturation is 96%, PTT in therapeutic range 62, blood cultures have been negative, urine culture came back positive for methicillin-resistant staph aureus, patient has been on vancomycin off of Rocephin, ID has been following, Patient is a 75-year-old nonverbal and noncommunicative, brought into emergency department for progressive edema, patient has advanced dementia and Alzheimer's disease, prior history of subarachnoid hemorrhage and stroke, does comprehend simple conversation, prior history is significant for atrial flutter fibrillation, history of stroke, dementia and thymus disease, GERD, history of GI bleed, hypertension hypertensive cardiovascular disease, resident of [facility], significant laboratory data on arrival noted to have a elevated WBC count of 12,000, lactic acid is 3.9, patient has been on room air, patient was started on Zosyn, admitted chest x-ray suggestive of left basilar opacity likely atelectasis of chronic infiltrate,, antibiotics have been switched to Rocephin, patient has been on anticoagulation with Coumadin, has been on heparin as well Objective - Vital Signs Vital signs: Vital Signs Temp 98.1 F 08/25/20 07:30 Pulse 65 08/25/20 07:30 Resp 18 08/25/20 07:30 BP 153/74 08/25/20 07:30 Pulse Ox 95 08/25/20 07:30 Intake & Output 08/24/20 08/25/20 08/25/20 18:59 06:59 18:59 Intake Total 221.808 Output Total 900 1200 Balance -678.192 -1200 Weight 85 kg Intake: Intake, IV Titration 221.808 Amount Heparin Sod,Pork in 0.45% 221.808 NaCl 25,000 unit In 0.45 % NaCl 1 250ml.bag @ 11 UNITS/KG/HR 9.979 mls/hr IV .Q24H [facility] Rx#: [id number] Output: Urine 900 1200 Other: Voiding Method Indwelling Catheter Indwelling Catheter Indwelling Catheter # Bowel Movements 1 1 - Exam - Constitutional General appearance: average body habitus, disheveled - EENT Eyes: EOMI, PERRLA Ears: bilateral: normal - Neck Carotids: bilateral: upstroke normal Thyroid: bilateral: normal size - Respiratory Respiratory: bilateral: CTA - Cardiovascular Rhythm: irregularly irregular Heart sounds: normal: S1, S2 - Gastrointestinal General gastrointestinal: normal bowel sounds - Neurologic Neurologic: CNII-XII intact, mostly nonverbal sometime communicates nonverbally - Musculoskeletal Musculoskeletal: Bed bound - Labs CBC & Chem 7: 08/24/20 05:35 08/24/20 05:35 Labs: Abnormal Lab Results - Last 24 Hours (Table) 08/24/20 08/24/20 08/24/20 Range/Units 11:26 11:43 16:16 PT (9.0-12.0) sec INR (<1.2) APTT 62.8 H (22.0-30.0) sec POC Glucose (mg/dL) 193 H 212 H (75-99) mg/dL 08/24/20 08/25/20 08/25/20 Range/Units 22:17 00:11 05:34 PT 29.4 H (9.0-12.0) sec INR 3.0 H (<1.2) APTT 34.8 H (22.0-30.0) sec POC Glucose (mg/dL) 204 H 180 H (75-99) mg/dL 08/25/20 Range/Units 05:36 PT (9.0-12.0) sec INR (<1.2) APTT (22.0-30.0) sec POC Glucose (mg/dL) 187 H (75-99) mg/dL Microbiology - Last 24 Hours (Table) 08/22/20 04:31 Blood Culture - Preliminary Blood No Growth after 72 hours 08/20/20 23:27 Blood Culture - Preliminary Blood No Growth after 96 hours 08/22/20 11:42 Blood Culture - Preliminary Blood No Growth after 48 hours 08/21/20 18:34 Urine Culture - Final Urine,Catheterized Methicillin resist S. aureus Assessment and Plan Assessment: MRSA UTI Left-sided atelectasis Sepsis due to MRSA UTI Urinary tract infection, History of stroke/subarachnoid hemorrhage Bedbound status Plan: Continue supplemental oxygen as needed, patient to be monitor observe off of supplemental oxygen, doubt pneumonia being an issue Deep breathing exercise incentive spirometry Antibiotics have been adjusted to more focused treatment of urinary tract infection Further plan of care as per clinical response of the patient Time with Patient: Greater than 30
[2020-08-25 11:24] LABS: Glucose,Whole Blood 158 mg/dL (75-99)
[2020-08-25] MEDS: WARFARIN 5 MG TAB PO SCH (15:18)
[2020-08-25] MEDS: MULTIVITAMINS, THERA LIQUID 237 ML BOTTLE PEG/G-TUBE SCH (15:19)
[2020-08-25] MEDS: LORATADINE 10 MG TAB PEG/G-TUBE SCH (15:19)
[2020-08-25] MEDS: FERROUS SULFATE ORAL ELIXIR 300 MG/5 ML CUP PEG/G-TUBE SCH (15:19)
[2020-08-25 16:35] LABS: Glucose,Whole Blood 145 mg/dL (75-99)
--- NOTE | 2020-08-25 18:12 | PN ---
PROGRESS NOTE DATE OF SERVICE: 08/25/2020 REASON FOR FOLLOWUP: Urinary tract infection. INTERVAL HISTORY: Patient is afebrile. The patient remains to be sleepy lethargic and unable to provide any history. No vomiting, diarrhea, or other changes reported by the nursing staff. PHYSICAL EXAMINATION: Blood pressure 143/76, pulse of 69, temperature 98.3. She is 98% on room air. General description is an elderly female lying in no distress. Respiratory system: Unlabored breathing, clear to auscultation anteriorly. Heart S1, S2. Regular rate and rhythm. Abdomen soft, no tenderness. LAB DATA: Urine showing MRSA. Blood culture repeat has been negative. DIAGNOSTIC IMPRESSION AND PLAN: Patient with MRSA urinary tract infection catheter associated, Gross catheter has been changed. Continue with vancomycin while monitoring clinical course closely. Continue supportive care. MMODL / IJN: [id number] /
[2020-08-25] MEDS: ACETAMINOPHEN ORAL SUSP (PEDS) 3,840 MG/120 ML BOTTLE PEG/G-TUBE PRN (18:13)
[2020-08-25] MEDS: INSULIN DETEMIR (LEVEMIR) 100 UNIT/ML SYR SQ SCH (21:39)
[2020-08-26 00:43] LABS: Glucose,Whole Blood 178 mg/dL (75-99)
[2020-08-26] MEDS: METOPROLOL TARTRATE 50 MG TAB PEG/G-TUBE SCH ×3 (05:25→21:09)
[2020-08-26] MEDS: GABAPENTIN 100 MG CAP PEG/G-TUBE SCH ×3 (05:25→21:09)
[2020-08-26] MEDS: DILTIAZEM ORAL 30 MG TAB PEG/G-TUBE SCH ×2 (05:25→21:09)
[2020-08-26] MEDS: VANCOMYCIN 1,500 MG in SODIUM CHLORIDE 0.9% 250 ML IVPB SCH ×2 (05:25→18:02)
[2020-08-26 06:08] LABS: Glucose,Whole Blood 156 mg/dL (75-99)
[2020-08-26 07:04] LABS: African American GFR (CKD) >90 (>60 ml/min/1.73 sqM); Non-African American GFR(CKD) >90 (>60 ml/min/1.73 sqM)
[2020-08-26 07:05] LABS: INR 3.1 (<1.2); Prothrombin Time 29.5 sec (9.0-12.0)
[2020-08-26] MEDS: metFORMIN 500 MG TAB PEG/G-TUBE SCH ×2 (08:20→21:09)
[2020-08-26] MEDS: ASPIRIN 81 MG PEG/G-TUBE SCH (08:20)
[2020-08-26] MEDS: FUROSEMIDE 40 MG TAB PEG/G-TUBE SCH ×2 (08:20→21:09)
[2020-08-26] MEDS: levETIRAcetam ORAL SOLN 500 MG/5 ML CUP PEG/G-TUBE SCH (08:23)
[2020-08-26] MEDS: CHOLESTYRAMINE (WITH SUGAR) 4 GM PACKET PEG/G-TUBE SCH (08:23)
--- NOTE | 2020-08-26 10:43 | P.PN ---
Progress Note - Text We have been asked to see the patient again for abnormal EKG. EKG reviewed by Dr. Auguste. She is having atrial tachycardia, no AV blocking as thought by RN. Pt has history of this in the past and has a pacemaker in place. Continue current medical regimen. No changes to medical therapy. We will follow as needed. Nurse Practitioner note has been reviewed, I agree with a documented findings and plan of care.
--- NOTE | 2020-08-26 10:55 | P.PN ---
Subjective Progress Note Date: 08/26/20 Principal diagnosis: Left-sided pneumonia Sepsis Urinary tract infection, History of stroke/subarachnoid hemorrhage Bedbound status 08/26/2020, patient seen eval examined during the rounds labs reviewed medications reviewed care plan discussed, respiratory status remains stable, denies any chest pain, patient is arousable opens eyes, remains mostly nonverbal, remains on vancomycin urine has been positive for MRSA however blood cultures remains negative 08/25/2020, patient seen eval examined overall no significant change is present breathing comfortably remains on room air is relatively more awake today, remains afebrile, hemodynamic status stable oxygen saturation 95% 08/24/2020, patient seen eval examined remains on room air sister is present at bedside, patient remains on heparin drip, she is afebrile with temperature 90.7 hemodynamic status stable on room air oxygen saturation is 96%, PTT in therapeutic range 62, blood cultures have been negative, urine culture came back positive for methicillin-resistant staph aureus, patient has been on vancomycin off of Rocephin, ID has been following, Patient is a 75-year-old nonverbal and noncommunicative, brought into emergency department for progressive edema, patient has advanced dementia and Alzheimer's disease, prior history of subarachnoid hemorrhage and stroke, does comprehend simple conversation, prior history is significant for atrial flutter fibrillation, history of stroke, dementia and thymus disease, GERD, history of GI bleed, hypertension hypertensive cardiovascular disease, resident of [facility], significant laboratory data on arrival noted to have a elevated WBC count of 12,000, lactic acid is 3.9, patient has been on room air, patient was started on Zosyn, admitted chest x-ray suggestive of left basilar opacity likely atelectasis of chronic infiltrate,, antibiotics have been switched to Rocephin, patient has been on anticoagulation with Coumadin, has been on heparin as well Objective - Vital Signs Vital signs: Vital Signs Temp 98 F 08/26/20 08:00 Pulse 63 08/26/20 08:00 Resp 16 08/26/20 08:00 BP 147/68 08/26/20 08:00 Pulse Ox 96 08/26/20 08:16 Intake & Output 08/25/20 08/26/20 08/26/20 18:59 06:59 18:59 Intake Total 116 Output Total 600 1500 Balance -600 -1384 Weight 85 kg 85 kg Intake: Tube Feeding 116 Output: Urine 600 1500 Other: Voiding Method Indwelling Catheter Indwelling Catheter Indwelling Catheter # Voids 1 - Exam - Constitutional General appearance: average body habitus, disheveled - EENT Eyes: EOMI, PERRLA Ears: bilateral: normal - Neck Carotids: bilateral: upstroke normal Thyroid: bilateral: normal size - Respiratory Respiratory: bilateral: CTA - Cardiovascular Rhythm: irregularly irregular Heart sounds: normal: S1, S2 - Gastrointestinal General gastrointestinal: normal bowel sounds - Neurologic Neurologic: CNII-XII intact, mostly nonverbal sometime communicates nonverbally - Musculoskeletal Musculoskeletal: Bed bound - Labs CBC & Chem 7: 08/24/20 05:35 08/26/20 06:07 Labs: Abnormal Lab Results - Last 24 Hours (Table) 08/25/20 08/25/20 08/26/20 Range/Units 11:16 16:19 00:42 PT (9.0-12.0) sec INR (<1.2) Creatinine (0.52-1.04) mg/dL POC Glucose (mg/dL) 158 H 145 H 178 H (75-99) mg/dL 08/26/20 08/26/20 08/26/20 Range/Units 06:07 06:07 06:07 PT 29.5 H (9.0-12.0) sec INR 3.1 H (<1.2) Creatinine 0.45 L (0.52-1.04) mg/dL POC Glucose (mg/dL) 156 H (75-99) mg/dL Microbiology - Last 24 Hours (Table) 08/22/20 04:31 Blood Culture - Preliminary Blood No Growth after 96 hours 08/20/20 23:27 Blood Culture - Preliminary Blood No Growth after 120 hours 08/22/20 11:42 Blood Culture - Preliminary Blood No Growth after 72 hours Assessment and Plan Assessment: MRSA UTI Left-sided atelectasis Sepsis due to MRSA UTI Urinary tract infection, History of stroke/subarachnoid hemorrhage Bedbound status Plan: Continue supplemental oxygen as needed, patient to be monitor observe off of supplemental oxygen, doubt pneumonia being an issue Deep breathing exercise incentive spirometry Antibiotics have been adjusted to more focused treatment of urinary tract infection Further plan of care as per clinical response of the patient Time with Patient: Greater than 30
[2020-08-26 11:36] LABS: Glucose,Whole Blood 134 mg/dL (75-99)
--- NOTE | 2020-08-26 15:06 | PN ---
PROGRESS NOTE 75-year-old white female who is lying comfortably in bed. She is being evaluated by Cardiology for second-degree heart block seen on EKG due to some have arrhythmia. She is having atrial tachycardia. Possible pacemaker. Cardiology did not do any medical changes with her. Waiting for broad-spectrum antibiotics treatment and urine culture due to send back to the longterm for UTI. She is positive for MRSA. Vancomycin urine has been positive for MRSA. Blood cultures remain negative. Cardiovascular S1-S2. Lungs clear. GI is distended. Hematology 2+ edema. ASSESSMENT: 1. 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 2. MRSA urinary tract infection. Remains on vancomycin. Wait for Dr. Chavira's recommendation for home antibiotics. Continue with current treatment plan. Prevent aspiration if possible. She did have 1 positive blood culture but so far further blood cultures are negative. She will possibly be sent back to the longterm on IV antibiotics, wait Dr. Chavira's recommendations. MMODL / IJN: [id number] /
[2020-08-26] MEDS: WARFARIN 5 MG TAB PO SCH (16:17)
[2020-08-26] MEDS: FERROUS SULFATE ORAL ELIXIR 300 MG/5 ML CUP PEG/G-TUBE SCH (16:18)
[2020-08-26] MEDS: ACETAMINOPHEN ORAL SUSP (PEDS) 3,840 MG/120 ML BOTTLE PEG/G-TUBE PRN (16:19)
[2020-08-26] MEDS: MULTIVITAMINS, THERA LIQUID 237 ML BOTTLE PEG/G-TUBE SCH (16:20)
[2020-08-26 16:55] LABS: Glucose,Whole Blood 172 mg/dL (75-99)
--- NOTE | 2020-08-26 19:35 | PN ---
PROGRESS NOTE DATE OF SERVICE: 08/26/2020 REASON FOR FOLLOWUP: MRSA urinary tract infection. INTERVAL HISTORY: The patient is currently afebrile. The patient remains to be sleepy, lethargic. ( ) history. No other changes reported by nursing staff. No vomiting, diarrhea. PHYSICAL EXAMINATION: Blood pressure 132/83 with a pulse of 71, temperature 97.9. She is 98% on room air. GENERAL DESCRIPTION: The patient is an elderly female lying in bed in no distress. RESPIRATORY SYSTEM: Unlabored breathing and is clear to auscultation anteriorly. HEART: S1, S2. Regular rate and rhythm. ABDOMEN: Soft, no tenderness. LAB: INR is 3.1, creatinine 0.45. DIAGNOSTIC IMPRESSION AND PLAN: Patient admitted to hospital with mental status changes, weakness, multifactorial, and the patient did have a component of MRSA UTI, currently covered with vancomycin. To continue on watching kidney function closely. Continue supportive care. MMODL / IJN: [id number] /
[2020-08-26 21:03] LABS: Glucose,Whole Blood 191 mg/dL (75-99)
[2020-08-26] MEDS: INSULIN DETEMIR (LEVEMIR) 100 UNIT/ML SYR SQ SCH (21:10)
[2020-08-26] MEDS: LORATADINE 10 MG TAB PEG/G-TUBE SCH (21:10)
[2020-08-27] LABS: Glucose,Whole Blood 173 mg/dL (75-99)
[2020-08-27] MEDS ORDERED: VANCOMYCIN TROUGH DUE 1 EACH MISC MISCELLANE ONE (05:00)
[2020-08-27 05:52] LABS: Glucose,Whole Blood 147 mg/dL (75-99)
[2020-08-27] MEDS: VANCOMYCIN 1,500 MG in SODIUM CHLORIDE 0.9% 250 ML IVPB SCH (06:01)
[2020-08-27] MEDS: METOPROLOL TARTRATE 50 MG TAB PEG/G-TUBE SCH ×3 (06:02→22:42)
[2020-08-27] MEDS: GABAPENTIN 100 MG CAP PEG/G-TUBE SCH ×3 (06:02→22:42)
[2020-08-27 06:16] LABS: INR 2.8 (<1.2); Prothrombin Time 26.6 sec (9.0-12.0)
[2020-08-27] MEDS: levETIRAcetam ORAL SOLN 500 MG/5 ML CUP PEG/G-TUBE SCH (08:40)
[2020-08-27] MEDS: FUROSEMIDE 40 MG TAB PEG/G-TUBE SCH ×2 (08:41→22:42)
[2020-08-27] MEDS: ASPIRIN 81 MG PEG/G-TUBE SCH (08:41)
[2020-08-27] MEDS: DILTIAZEM ORAL 30 MG TAB PEG/G-TUBE SCH ×2 (08:41→22:42)
[2020-08-27] MEDS: CHOLESTYRAMINE (WITH SUGAR) 4 GM PACKET PEG/G-TUBE SCH (08:41)
[2020-08-27] MEDS: metFORMIN 500 MG TAB PEG/G-TUBE SCH ×2 (08:41→22:42)
[2020-08-27 11:33] LABS: Glucose,Whole Blood 151 mg/dL (75-99)
--- NOTE | 2020-08-27 12:37 | PN ---
PROGRESS NOTE A 75-year-old white female with MRSA UTI. She is sleepy, lethargic. No vomiting or diarrhea. PEG tube is intact. O2 98 on room air. Temperature 97.9, pulse 70, blood pressure 132 over 80s. Lungs are clear. Heart S1 and S2. Abdomen is soft. INR 3.1, creatinine 0.45. ASSESSMENT: 1. Mental status changes. 2. Weakness, multifactorial. 3. MRSA urinary tract infection, covered with vancomycin. Watch kidney function closely. Wait for discharge per Dr. Chavira's recommendations prior to discharging home. MMODL / IJN: [id number] /
[2020-08-27 13:15] LABS: Anisocytosis Slight; Basophils # (A) 0.1 k/uL (0-0.2); Basophils % (A) 1 %; Eosinophils # (A) 0.7 k/uL (0-0.7); Eosinophils % (A) 7 %; HCT 39.1 % (34.0-46.0); HGB 11.7 gm/dL (11.4-16.0); Hypochromasia Marked; Lymphocytes # (A) 1.6 k/uL (1.0-4.8); Lymphocytes % (A) 17 %; MCH 24.6 pg (25.0-35.0); MCHC 29.8 g/dL (31.0-37.0); MCV 82.4 fL (80.0-100.0); Mean Platelet Volume 8.7; Microcytosis Slight; Monocytes # (A) 0.4 k/uL (0-1.0); Monocytes % (A) 4 %; Neutrophils # (A) 6.7 k/uL (1.3-7.7); Neutrophils % (A) 69 %; Platelet Count 236 k/uL (150-450); RBC 4.75 m/uL (3.80-5.40); RDW 19.4 % (11.5-15.5); WBC 9.6 k/uL (3.8-10.6)
[2020-08-27 13:28] LABS: African American GFR (CKD) >90 (>60 ml/min/1.73 sqM); Anion Gap 8 mmol/L; Blood Urea Nitrogen 23 mg/dL (7-17); Calcium 9.4 mg/dL (8.4-10.2); Carbon Dioxide 26 mmol/L (22-30); Chloride 102 mmol/L (98-107); Glucose 156 mg/dL (74-99); Non-African American GFR(CKD) >90 (>60 ml/min/1.73 sqM); Potassium 4.7 mmol/L (3.5-5.1); Sodium 136 mmol/L (137-145)
[2020-08-27] MEDS: FERROUS SULFATE ORAL ELIXIR 300 MG/5 ML CUP PEG/G-TUBE SCH (15:43)
[2020-08-27] MEDS: MULTIVITAMINS, THERA LIQUID 237 ML BOTTLE PEG/G-TUBE SCH (15:43)
[2020-08-27 16:27] LABS: Glucose,Whole Blood 175 mg/dL (75-99)
--- NOTE | 2020-08-27 17:17 | PN ---
PROGRESS NOTE DATE OF SERVICE: 08/27/2020 REASON FOR FOLLOWUP: MRSA UTI infection. INTERVAL HISTORY: Patient is currently afebrile. Patient is breathing comfortably. The patient is hemodynamically stable on his current oxygen. No nausea, no vomiting or diarrhea. No changes reported by nursing staff. PHYSICAL EXAMINATION: Blood pressure 133/56, pulse of 72, temperature 98.7 she is 92% on room air. GENERAL DESCRIPTION: An elderly female lying in bed no distress. RESPIRATORY SYSTEM: Unlabored breathing. Clear to auscultation anteriorly. HEART: S1, S2. Regular rate and rhythm. ABDOMEN: Soft, no tenderness. LABS: Hemoglobin 11.8, white count 9.6, BUN of 23, creatinine 0.39. DIAGNOSTIC IMPRESSION AND PLAN: Patient admitted to the hospital with shortness of breath, this patient did have UTI showing MRSA. The patient is covered with vancomycin. Will monitor her kidney function closely. Continue supportive care. MMODL / IJN: [id number] /
[2020-08-27] MEDS: VANCOMYCIN 1,250 MG in SODIUM CHLORIDE 0.9% 250 ML IVPB SCH (17:54)
[2020-08-27] MEDS: WARFARIN 5 MG TAB PO SCH (17:55)
[2020-08-27] MEDS: LORATADINE 10 MG TAB PEG/G-TUBE SCH (22:42)
[2020-08-27] MEDS: INSULIN DETEMIR (LEVEMIR) 100 UNIT/ML SYR SQ SCH (22:44)
[2020-08-28 00:15] LABS: Glucose,Whole Blood 185 mg/dL (75-99)
[2020-08-28 05:46] LABS: Glucose,Whole Blood 164 mg/dL (75-99)
[2020-08-28] MEDS: VANCOMYCIN 1,250 MG in SODIUM CHLORIDE 0.9% 250 ML IVPB SCH ×2 (05:52→18:59)
[2020-08-28] MEDS: METOPROLOL TARTRATE 50 MG TAB PEG/G-TUBE SCH ×3 (05:52→23:32)
[2020-08-28] MEDS: GABAPENTIN 100 MG CAP PEG/G-TUBE SCH ×3 (05:52→23:32)
[2020-08-28 07:02] LABS: Glucose,Whole Blood 163 mg/dL (75-99)
[2020-08-28 07:26] LABS: INR 2.6 (<1.2); Prothrombin Time 25.4 sec (9.0-12.0)
[2020-08-28] MEDS: metFORMIN 500 MG TAB PEG/G-TUBE SCH ×2 (07:46→23:32)
[2020-08-28] MEDS: CHOLESTYRAMINE (WITH SUGAR) 4 GM PACKET PEG/G-TUBE SCH (07:46)
[2020-08-28] MEDS: FUROSEMIDE 40 MG TAB PEG/G-TUBE SCH ×2 (07:46→23:32)
[2020-08-28] MEDS: ASPIRIN 81 MG PEG/G-TUBE SCH (07:46)
[2020-08-28] MEDS: levETIRAcetam ORAL SOLN 500 MG/5 ML CUP PEG/G-TUBE SCH (07:47)
[2020-08-28] MEDS: DILTIAZEM ORAL 30 MG TAB PEG/G-TUBE SCH ×2 (07:47→23:32)
--- NOTE | 2020-08-28 08:16 | PN ---
PROGRESS NOTE The patient is still in the hospital for MRSA and UTI infection on IV vancomycin. She just had prior stroke. She has a PEG tube in for esophageal dysmobility. She is resting comfortably. PEG tube appears to be functioning. Blood pressure 133/56, pulse 72, temp 98.7, O2 92%. CARDIOVASCULAR: S1, S2. Lungs clear. GI is soft. PEG tube in place. EXTREMITIES: No edema. BUN 23, creatinine 0.39, hemoglobin is 11.8. ASSESSMENT: UTI with MRSA on IV vancomycin. Monitor kidney function. Possibly will have to go back to [facility] on Saturday with IV vancomycin. Prognosis guarded. MMODL / IJN: [id number] /
--- NOTE | 2020-08-28 08:21 | P.PN ---
Subjective Progress Note Date: 08/28/20 Principal diagnosis: Left-sided pneumonia Sepsis Urinary tract infection, History of stroke/subarachnoid hemorrhage Bedbound status 08/28/2020, patient seen eval examined overall no significant change, vitals stable, blood culture so far no growth, sputum culture positive for Rocephin, 08/26/2020, patient seen eval examined during the rounds labs reviewed medications reviewed care plan discussed, respiratory status remains stable, denies any chest pain, patient is arousable opens eyes, remains mostly nonverbal, remains on vancomycin urine has been positive for MRSA however blood cultures remains negative 08/25/2020, patient seen eval examined overall no significant change is present breathing comfortably remains on room air is relatively more awake today, remains afebrile, hemodynamic status stable oxygen saturation 95% 08/24/2020, patient seen eval examined remains on room air sister is present at bedside, patient remains on heparin drip, she is afebrile with temperature 90.7 hemodynamic status stable on room air oxygen saturation is 96%, PTT in therapeutic range 62, blood cultures have been negative, urine culture came back positive for methicillin-resistant staph aureus, patient has been on vancomycin off of Rocephin, ID has been following, Patient is a 75-year-old nonverbal and noncommunicative, brought into emergency department for progressive edema, patient has advanced dementia and Alzheimer's disease, prior history of subarachnoid hemorrhage and stroke, does comprehend simple conversation, prior history is significant for atrial flutter f ibrillation, history of stroke, dementia and thymus disease, GERD, history of GI bleed, hypertension hypertensive cardiovascular disease, resident of [facility], significant laboratory data on arrival noted to have a elevated WBC count of 12,000, lactic acid is 3.9, patient has been on room air, patient was started on Zosyn, admitted chest x-ray suggestive of left basilar opacity likely atelectasis of chronic infiltrate,, antibiotics have been switched to Rocephin, patient has been on anticoagulation with Coumadin, has been on heparin as well Objective - Vital Signs Vital signs: Vital Signs Temp 98.6 F 08/28/20 07:40 Pulse 62 08/28/20 07:40 Resp 17 08/28/20 07:40 BP 127/74 08/28/20 07:40 Pulse Ox 98 08/28/20 07:40 Intake & Output 08/27/20 08/28/20 08/28/20 18:59 06:59 18:59 Intake Total 700 Output Total 650 1050 Balance 50 -1050 Weight 85.5 kg Intake: Tube Feeding 700 Output: Urine 650 1050 Other: Voiding Method Indwelling Catheter Indwelling Catheter # Bowel Movements 1 - Exam - Constitutional General appearance: average body habitus, disheveled - EENT Eyes: EOMI, PERRLA Ears: bilateral: normal - Neck Carotids: bilateral: upstroke normal Thyroid: bilateral: normal size - Respiratory Respiratory: bilateral: CTA - Cardiovascular Rhythm: irregularly irregular Heart sounds: normal: S1, S2 - Gastrointestinal General gastrointestinal: normal bowel sounds - Neurologic Neurologic: CNII-XII intact, mostly nonverbal sometime communicates nonverbally - Musculoskeletal Musculoskeletal: Bed bound - Labs CBC & Chem 7: 08/27/20 13:00 08/27/20 13:00 Labs: Abnormal Lab Results - Last 24 Hours (Table) 08/27/20 08/27/20 08/27/20 Range/Units 11:31 13:00 13:00 MCH 24.6 L (25.0-35.0) pg MCHC 29.8 L (31.0-37.0) g/dL RDW 19.4 H (11.5-15.5) % PT (9.0-12.0) sec INR (<1.2) Sodium 136 L (137-145) mmol/L BUN 23 H (7-17) mg/dL Creatinine 0.39 L (0.52-1.04) mg/dL Glucose 156 H (74-99) mg/dL POC Glucose (mg/dL) 151 H (75-99) mg/dL 08/27/20 08/28/20 08/28/20 Range/Units 16:26 00:12 05:45 MCH (25.0-35.0) pg MCHC (31.0-37.0) g/dL RDW (11.5-15.5) % PT (9.0-12.0) sec INR (<1.2) Sodium (137-145) mmol/L BUN (7-17) mg/dL Creatinine (0.52-1.04) mg/dL Glucose (74-99) mg/dL POC Glucose (mg/dL) 175 H 185 H 164 H (75-99) mg/dL 08/28/20 08/28/20 Range/Units 06:37 06:59 MCH (25.0-35.0) pg MCHC (31.0-37.0) g/dL RDW (11.5-15.5) % PT 25.4 H (9.0-12.0) sec INR 2.6 H (<1.2) Sodium (137-145) mmol/L BUN (7-17) mg/dL Creatinine (0.52-1.04) mg/dL Glucose (74-99) mg/dL POC Glucose (mg/dL) 163 H (75-99) mg/dL Microbiology - Last 24 Hours (Table) 08/22/20 04:31 Blood Culture - Final Blood No Growth after 144 hours 08/22/20 11:42 Blood Culture - Preliminary Blood No Growth after 120 hours
[2020-08-28 11:46] LABS: Basophils # (A) 0.06 X 10*3/uL (0.00-0.10); Basophils % (A) 0.6 %; Eosinophils # (A) 0.86 X 10*3/uL (0.04-0.35); Eosinophils % (A) 8.5 %; HCT 37.2 % (37.2-46.3); HGB 10.8 g/dL (12.0-15.0); Lymphocytes # (A) 1.82 X 10*3/uL (0.90-5.00); Lymphocytes % (A) 18.1 %; MCH 24.9 pg (27.0-32.0); MCV 85.9 fL (80.0-97.0); Mean Platelet Volume 11.9 fL (9.5-12.2); Monocytes # (A) 0.76 X 10*3/uL (0.20-1.00); Monocytes % (A) 7.5 %; Neutrophils # (A) 6.55 X 10*3/uL (1.80-7.70); Platelet Count 233 X 10*3/uL (140-440); RBC 4.33 X 10*6/uL (4.10-5.20); RDW 20.5 % (11.5-14.5); WBC 10.08 X 10*3/uL (4.50-10.00)
[2020-08-28 11:48] LABS: Glucose,Whole Blood 169 mg/dL (75-99)
[2020-08-28 11:54] LABS: African American GFR (CKD) 104.1 (60.0-200.0); Albumin 3.3 g/dL (3.80-4.90); Albumin/Globulin Ratio 1.14 (1.60-3.17); Anion Gap 8.5 mmol/L (4.00-12.00); Calcium 9.2 mg/dL (8.7-10.3); Carbon Dioxide 30.5 mmol/L (21.6-31.8); Globulin 2.9 g/dL (1.6-3.3); Non-African American GFR(CKD) 89.8 (60.0-200.0); Potassium 4.4 mmol/L (3.5-5.5); Total Bilirubin 0.3 mg/dL (0.3-1.2); Total Protein 6.2 g/dL (6.2-8.2)
--- NOTE | 2020-08-28 13:57 | XR ---
EXAMINATION TYPE: XR abdomen 2V DATE OF EXAM: 08/28/2020 COMPARISON: 06/24/2020 INDICATION: PEG tube feeding TECHNIQUE: Abdomen is examined in the upright and supine views. No contrast is utilized. FINDINGS: There is a normal bowel gas pattern. PEG tube enters the left upper quadrant of the abdomen. No free air is identified. No differential air-fluid levels within the [id number] are evident. Psoas mode ns are not visualized. No mass effect is evident. Old right hip pin is evident. No organomegaly is present. IMPRESSION: 1. PEG tube is in the left upper quadrant appears unremarkable as visualized without contrast. 2. Nonspecific bowel gas pattern.
--- NOTE | 2020-08-28 16:04 | PN ---
PROGRESS NOTE DATE OF SERVICE: 08/29/2020 REASON FOR FOLLOWUP: MRSA urinary tract infection. INTERVAL HISTORY: The patient is afebrile. The patient is more awake and alert today, she is breathing comfortably. She has been tolerating her tube feeds. No vomiting or any other changes reported by nursing staff. The patient was not able to provide any reliable history. PHYSICAL EXAMINATION: Blood pressure 127/74, pulse of 72, temperature 98.6. She is 98% on room air. GENERAL DESCRIPTION: The patient is an elderly female lying in bed in no distress. RESPIRATORY SYSTEM: Unlabored breathing, clear to auscultation anteriorly. HEART: S1, S2. Regular rate and rhythm. ABDOMEN: Soft, no tenderness. LABS: Hemoglobin 10.8, BUN of 24, creatinine 0.62. DIAGNOSTIC IMPRESSION AND PLAN: Patient with MRSA urinary tract infection, covered with vancomycin. ( ) monitor course of therapy and close outpatient followup condition. MMODL / IJN: [id number] /
[2020-08-28 16:47] LABS: Glucose,Whole Blood 172 mg/dL (75-99)
[2020-08-28] MEDS: FERROUS SULFATE ORAL ELIXIR 300 MG/5 ML CUP PEG/G-TUBE SCH (17:40)
[2020-08-28] MEDS: MULTIVITAMINS, THERA LIQUID 237 ML BOTTLE PEG/G-TUBE SCH (17:40)
[2020-08-28] MEDS ORDERED: WARFARIN 3 MG TAB PO ONE (18:00)
--- NOTE | 2020-08-28 19:09 | P.PN ---
Progress Note - Text Progress Note Date: 08/28/20 Presenting complaint: MRSA UTI Interval history: This patient at the baseline nods her head, with the PEG tube feeding, presents with MRSA UTI. Gross catheter was changed when she was admitted. August 28: Tolerating tube feeding. Gross catheter in place. Responds to questions by nodding her head. Appears to be comfortable Review of systems: Patient is nonverbal On examination: VITAL SIGNS: 99, 62, 18, 166/77, 90% on room air GENERAL APPEARANCE: BMI 30.4, laying in bed, eyes open. HEENT: Normal external appearance of nose and ear. Oral cavity dry mucous membranes EYES: Pupils equal. Conjunctiva normal. NECK: JVD unable to be assessed. Mass not palpable. RESPIRATORY: Respiratory effort normal. Lungs decreased breath sounds. CARDIOVASCULAR: First and second sounds normal. No edema. ABDOMEN: Soft. Some distention. Nontender. PEG tube in place. Liver and spleen not palpable. No tenderness. No mass palpable. PSYCHIATRY: Unable to assess NEUROLOGICAL: Patient nonverbal. Does nod her hesd d on questioning INVESTIGATIONS, reviewed in the clinical context: WBC 10.0 hemoglobin 10.8 platelets 233 INR 2.6 potassium 4.4 creatinine 0.6 Abdominal x-ray: Nonspecific bowel gas pattern Urine culture: MRSA Assessment and plan: -Acute UTI with cystitis from MRSA. Gross catheter was changed. On vancomycin -PEG tube feeding Tolerating -Left hemiplegia, hemiparesis following nontraumatic subarachnoid hemorrhage Non-up in a tree -Chronic dysphagia. Patient nothing by mouth. Tolerating 2 feeding -Bladder and bowel incontinence -Mechanical mitral valve replacement in 2000 On Coumadin -Coumadin monitoring -Coronary artery disease with stent Aspirin. Beta annette. -Chronic medical debility. Does get placed in a wheelchair -Paroxysmal atrial fibrillation, currently in sinus rhythm Cardizem, Lopressor -Diabetes mellitus type 2, chronically on insulin Continue with Levemir. Follow Accu-Cheks. Glucophage. -Essential hypertension Cardizem, Lopressor Continue current medication treatment plan. 2 feeding to continue. Antibiotics per ID. Prognosis guarded.
[2020-08-28] MEDS: LORATADINE 10 MG TAB PEG/G-TUBE SCH (23:32)
[2020-08-28] MEDS: INSULIN DETEMIR (LEVEMIR) 100 UNIT/ML SYR SQ SCH (23:32)
[2020-08-28 23:57] LABS: Glucose,Whole Blood 184 mg/dL (75-99)
[2020-08-29] MEDS: VANCOMYCIN 1,250 MG in SODIUM CHLORIDE 0.9% 250 ML IVPB SCH ×2 (05:08→17:37)
[2020-08-29] MEDS: GABAPENTIN 100 MG CAP PEG/G-TUBE SCH ×3 (05:08→21:29)
[2020-08-29] MEDS: METOPROLOL TARTRATE 50 MG TAB PEG/G-TUBE SCH ×3 (05:08→21:29)
[2020-08-29 05:52] LABS: Glucose,Whole Blood 173 mg/dL (75-99)
[2020-08-29 06:56] LABS: Glucose,Whole Blood 188 mg/dL (75-99)
[2020-08-29] MEDS: FUROSEMIDE 40 MG TAB PEG/G-TUBE SCH ×2 (07:12→21:29)
[2020-08-29] MEDS: metFORMIN 500 MG TAB PEG/G-TUBE SCH ×2 (07:12→21:29)
[2020-08-29] MEDS: ASPIRIN 81 MG PEG/G-TUBE SCH (07:12)
[2020-08-29] MEDS: levETIRAcetam ORAL SOLN 500 MG/5 ML CUP PEG/G-TUBE SCH (07:13)
[2020-08-29] MEDS: DILTIAZEM ORAL 30 MG TAB PEG/G-TUBE SCH ×2 (07:13→21:29)
[2020-08-29] MEDS: CHOLESTYRAMINE (WITH SUGAR) 4 GM PACKET PEG/G-TUBE SCH (07:13)
[2020-08-29 08:28] LABS: INR 2.8 (<1.2); Prothrombin Time 26.8 sec (9.0-12.0)
[2020-08-29 08:59] LABS: ALT 27 U/L (4-34); AST 29 U/L (14-36); African American GFR (CKD) >90 (>60 ml/min/1.73 sqM); Albumin 3.1 g/dL (3.5-5.0); Albumin/Globulin Ratio 0.9; Alkaline Phosphatase 119 U/L (38-126); Anion Gap 7 mmol/L; Blood Urea Nitrogen 23 mg/dL (7-17); Calcium 9.5 mg/dL (8.4-10.2); Carbon Dioxide 30 mmol/L (22-30); Chloride 99 mmol/L (98-107); Globulin 3.3 g/dL; Glucose 177 mg/dL (74-99); Non-African American GFR(CKD) >90 (>60 ml/min/1.73 sqM); Potassium 4.2 mmol/L (3.5-5.1); Sodium 136 mmol/L (137-145); Total Bilirubin 0.3 mg/dL (0.2-1.3); Total Protein 6.4 g/dL (6.3-8.2)
--- NOTE | 2020-08-29 09:03 | P.PN ---
Subjective Progress Note Date: 08/29/20 Principal diagnosis: Left-sided pneumonia Sepsis Urinary tract infection, History of stroke/subarachnoid hemorrhage Bedbound status 08/29/2020, patient seen eval reexamined during the rounds labs reviewed medications reviewed patient remains off of oxygen currently fairly developed, no distress is present, repeat blood cultures have been negative, patient remains on antibiotics per ID services, 08/28/2020, patient seen eval examined overall no significant change, vitals stable, blood culture so far no growth, sputum culture positive for Rocephin, 08/26/2020, patient seen eval examined during the rounds labs reviewed medications reviewed care plan discussed, respiratory status remains stable, denies any chest pain, patient is arousable opens eyes, remains mostly no nverbal, remains on vancomycin urine has been positive for MRSA however blood cultures remains negative 08/25/2020, patient seen eval examined overall no significant change is present breathing comfortably remains on room air is relatively more awake today, remains afebrile, hemodynamic status stable oxygen saturation 95% 08/24/2020, patient seen eval examined remains on room air sister is present at bedside, patient remains on heparin drip, she is afebrile with temperature 90.7 hemodynamic status stable on room air oxygen saturation is 96%, PTT in therapeutic range 62, blood cultures have been negative, urine culture came back positive for methicillin-resistant staph aureus, patient has been on vancomycin off of Rocephin, ID has been following, Patient is a 75-year-old nonverbal and noncommunicative, brought into emergency department for progressive edema, patient has advanced dementia and Alzheimer's disease, prior history of subarachnoid hemorrhage and stroke, does comprehend simple conversation, prior history is significant for atrial flutter fibrillation, history of stroke, dementia and thymus disease, GERD, history of GI bleed, hypertension hypertensive cardiovascular disease, resident of [facility], significant laboratory data on arrival noted to have a elevated WBC count of 12,000, lactic acid is 3.9, patient has been on room air, patient was started on Zosyn, admitted chest x-ray suggestive of left basilar opacity likely atelectasis of chronic infiltrate,, antibiotics have been switched to Rocephin, patient has been on anticoagulation with Coumadin, has been on heparin as well Objective - Vital Signs Vital signs: Vital Signs Temp 98.7 F 08/29/20 07:42 Pulse 69 08/29/20 07:42 Resp 16 08/29/20 07:42 BP 133/54 08/29/20 07:42 Pulse Ox 96 08/29/20 07:42 Intake & Output 08/28/20 08/29/20 08/29/20 18:59 06:59 18:59 Intake Total 800 Output Total 650 1550 Balance 150 -1550 Weight 86.5 kg Intake: Tube Feeding 600 Other 200 Output: Urine 650 1550 Other: Voiding Method Indwelling Catheter Indwelling Catheter Indwelling Catheter # Bowel Movements 1 - Exam - Constitutional General appearance: average body habitus, disheveled - EENT Eyes: EOMI, PERRLA Ears: bilateral: normal - Neck Carotids: bilateral: upstroke normal Thyroid: bilateral: normal size - Respiratory Respiratory: bilateral: CTA - Cardiovascular Rhythm: irregularly irregular Heart sounds: normal: S1, S2 - Gastrointestinal General gastrointestinal: normal bowel sounds - Neurologic Neurologic: CNII-XII intact, mostly nonverbal sometime communicates nonverbally - Musculoskeletal Musculoskeletal: Bed bound - Labs CBC & Chem 7: 08/28/20 06:37 08/29/20 05:30 Labs: Abnormal Lab Results - Last 24 Hours (Table) 08/28/20 08/28/20 08/28/20 Range/Units 06:37 06:37 11:45 WBC 10.08 H (4.50-10.00) X 10*3/uL Hgb 10.8 L (12.0-15.0) g/dL MCH 24.9 L (27.0-32.0) pg MCHC 29.0 L (32.0-37.0) g/dL RDW 20.5 H (11.5-14.5) % Eosinophils # 0.86 H (0.04-0.35) X 10*3/uL PT (9.0-12.0) sec INR (<1.2) Sodium (137-145) mmol/L BUN (7-17) mg/dL Creatinine (0.52-1.04) mg/dL BUN/Creatinine Ratio 40.00 H (12.00-20.00) Ratio Glucose 179 H (70-110) mg/dL POC Glucose (mg/dL) 169 H (75-99) mg/dL Albumin 3.30 L (3.80-4.90) g/dL Albumin/Globulin Ratio 1.14 L (1.60-3.17) g/dL 08/28/20 08/28/20 08/29/20 Range/Units 16:46 23:55 05:30 WBC (4.50-10.00) X 10*3/uL Hgb (12.0-15.0) g/dL MCH (27.0-32.0) pg MCHC (32.0-37.0) g/dL RDW (11.5-14.5) % Eosinophils # (0.04-0.35) X 10*3/uL PT (9.0-12.0) sec INR (<1.2) Sodium 136 L (137-145) mmol/L BUN 23 H (7-17) mg/dL Creatinine 0.43 L (0.52-1.04) mg/dL BUN/Creatinine Ratio (12.00-20.00) Ratio Glucose 177 H (70-110) mg/dL POC Glucose (mg/dL) 172 H 184 H (75-99) mg/dL Albumin 3.1 L (3.80-4.90) g/dL Albumin/Globulin Ratio (1.60-3.17) g/dL 08/29/20 08/29/20 08/29/20 Range/Units 05:30 05:50 06:55 WBC (4.50-10.00) X 10*3/uL Hgb (12.0-15.0) g/dL MCH (27.0-32.0) pg MCHC (32.0-37.0) g/dL RDW (11.5-14.5) % Eosinophils # (0.04-0.35) X 10*3/uL PT 26.8 H (9.0-12.0) sec INR 2.8 H (<1.2) Sodium (137-145) mmol/L BUN (7-17) mg/dL Creatinine (0.52-1.04) mg/dL BUN/Creatinine Ratio (12.00-20.00) Ratio Glucose (70-110) mg/dL POC Glucose (mg/dL) 173 H 188 H (75-99) mg/dL Albumin (3.80-4.90) g/dL Albumin/Globulin Ratio (1.60-3.17) g/dL Microbiology - Last 24 Hours (Table) 08/22/20 11:42 Blood Culture - Final Blood No Growth after 144 hours 08/22/20 04:31 Blood Culture - Final Blood No Growth after 144 hours Assessment and Plan Assessment: MRSA UTI Left-sided atelectasis Sepsis due to MRSA UTI Urinary tract infection, History of stroke/subarachnoid hemorrhage Bedbound status Plan: Continue supplemental oxygen as needed, patient to be monitor observe off of supplemental oxygen, doubt pneumonia being an issue Deep breathing exercise incentive spirometry Antibiotics have been adjusted to more focused treatment of urinary tract infection Further plan of care as per clinical response of the patient We will be available as the arise Time with Patient: Greater than 30
[2020-08-29 11:41] VITALS: BMI 30.7
[2020-08-29 11:49] LABS: Glucose,Whole Blood 168 mg/dL (75-99)
--- NOTE | 2020-08-29 13:20 | PN ---
PROGRESS NOTE DATE OF SERVICE: 08/29/2020. REASON FOR FOLLOW UP: infection. INTERVAL HISTORY: Patient is currently afebrile. Patient is feeling better. The patient remains to be lethargic, unable to provide any history. No or diarrhea has been reported. PHYSICAL EXAMINATION: Blood pressure 95/54 with a pulse of . She is 93% on room air. General description is an elderly female lying in bed in no distress. Respiratory system: Unlabored breathing. Clear to auscultation anteriorly. Heart: S1, S2. Regular rate and rhythm. Abdomen soft, mildly distended. No guarding or rigidity. LABORATORY DATA: Bun and creatinine DIAGNOSTIC IMPRESSION AND PLAN: Patient with MRSA catheter associated urinary tract infection, blood cultures have been negative. resistant to the Bactrim DS, which plan will be for IV vancomycin, pharmacy to dose for which a midline should be placed. Continue supportive care. MMODL / IJN: [id number] /
[2020-08-29 16:43] LABS: Glucose,Whole Blood 203 mg/dL (75-99)
[2020-08-29] MEDS: WARFARIN 5 MG TAB PO SCH (16:43)
[2020-08-29] MEDS: FERROUS SULFATE ORAL ELIXIR 300 MG/5 ML CUP PEG/G-TUBE SCH (16:44)
[2020-08-29] MEDS: MULTIVITAMINS, THERA LIQUID 237 ML BOTTLE PEG/G-TUBE SCH (16:45)
[2020-08-29] MEDS ORDERED: VANCOMYCIN TROUGH DUE 1 EACH MISC MISCELLANE ONE (17:00)
[2020-08-29] MEDS: LORATADINE 10 MG TAB PEG/G-TUBE SCH (21:29)
[2020-08-29] MEDS: INSULIN DETEMIR (LEVEMIR) 100 UNIT/ML SYR SQ SCH (21:29)
[2020-08-29 23:54] LABS: Glucose,Whole Blood 194 mg/dL (75-99)
[2020-08-30] MEDS: METOPROLOL TARTRATE 50 MG TAB PEG/G-TUBE SCH ×3 (05:21→20:24)
[2020-08-30] MEDS: GABAPENTIN 100 MG CAP PEG/G-TUBE SCH ×3 (05:21→20:23)
[2020-08-30 05:58] LABS: Glucose,Whole Blood 220 mg/dL (75-99)
--- NOTE | 2020-08-30 06:51 | PN ---
PROGRESS NOTE DATE OF SERVICE: 08/29/2020 75-year-old white female who is going to be sent back with IV antibiotics over to [facility] when she is cleared by Dr. Chavira. There are ST changes on EKG and Cardiology is going to see her prior to being discharged. Troponins done and negative. Cardiovascular S1, S2. Lungs clear. GI is soft. Hematology negative Homans'. When Cardiology clears her for discharge we will get her sent back on IV vancomycin and will continue that for 10-14 days over to the correction. MMODL / IJN: [id number] /
[2020-08-30 07:30] LABS: INR 3.2 (<1.2); Prothrombin Time 30.9 sec (9.0-12.0)
--- NOTE | 2020-08-30 10:08 | CDI ---
Documentation Clarification Form Date: 08/30/2020 10:06:25 AM From: Dianelys Noble RN, CCDS Admit Date: 08/22/2020 10:35:00 AM Patient Name: Ariane Eric Visit Number: [id number] ATTENTION: The Clinical Documentation Specialists (CDI) and [facility] Coding Staff appreciate your assistance in clarifying documentation. Please respond to the clarification below the line at the bottom and electronically sign. The CDI & [facility] Coding staff will review the response and follow-up if needed. Please note: Queries are made part of the Legal Health Record. If you have any questions, please contact the author of this message via ITS. Dr. Luis A Gomez Your patient has the documented diagnosis of a Hx of unspecified CHF in the H&P and Consults. Additional information regarding the [type, acuity] of CHF is requested. History/Risk Factors: CHF, Atrial Fib, Atrial Flutter, Asthma, CVA, TIA, Dementia, HTN, Pneumonia, Mitral Valve Replacement, Heart Cath with Stents, Pacemaker, DM2, O2 Dependent Clinical Indicators: 08/20 1956 VS/Pulse OX: Temp 98.6, HR 69, RR 18, B/P 173/91, Spo2 96% RA 08/20 BNP: 1170 06/24/2020 Echocardiogram Results: EF 55-60% 08/20/2020 Chest X Ray: "Chronic mild left basilar opacity, may represent atelectasis/chronic changes." Treatment: Lasix 40 Peg Tube BID Lopressor Peg Tube TID Cardizem 30 mg Peg Tube BID In your professional opinion, can you please clarify the acuity and type of CHF if known? [ ] Chronic Diastolic Heart Failure (preserved EF) [ ] Chronic Systolic & Diastolic Heart Failure [ ] Other, please specify [ ] Unable to determine (Template Last Revised: March 2020) MTDD
--- NOTE | 2020-08-30 10:17 | CDI ---
Documentation Clarification Form Date: 08/30/2020 10:09:30 AM From: Dianelys Noble RN, CCDS Admit Date: 08/22/2020 10:35:00 AM Patient Name: Ariane Eric Visit Number: [id number] ATTENTION: The Clinical Documentation Specialists (CDI) and [facility] Coding Staff appreciate your assistance in clarifying documentation. Please respond to the clarification below the line at the bottom and electronically sign. The CDI & [facility] Coding staff will review the response and follow-up if needed. Please note: Queries are made part of the Legal Health Record. If you have any questions, please contact the author of this message via ITS. Dr. Luis A Gomez Atrial Flutter is documented in the 08/21 H&P and Pulmonary Consult and Progress Notes. Additional clarification regarding the type of Atrial Flutter is requested. History/Risk factors: Atrial Fib, Atrial Flutter, Asthma, Cancer, CHF< CVA, Dementia, GERD, GIB, Hyperlipidemia, HTN, Pneumonia, JOANN, Mitral valve replacement, CAD with Stents, HTN, HLD, Dysphagia with Peg Tube Clinical Indicators: 08/21 H&P: "PAST MEDICAL HISTORY: Atrial fibrillation, atrial flutter, asthma, cancer, heart failure, CVA, TIA, dementia." 08/20 EKG: NSR with 1st degree AV Block Treatment: ASA 81 mg Via Peg Tube QD Cardizem 30 mg via Peg tube BID Lopressor 100 mg via Peg Tube TID Daily Coumadin dosing via Peg Tube Please clarify the type of Atrial Flutter, if known: [ ] Typical/Type I [ ] Atypical/Type II [ ] Other, please specify [ ] Unable to determine (Template Last Revised: April 2020) MTDD
--- NOTE | 2020-08-30 10:29 | CDI ---
Documentation Clarification Form Date: 08/30/2020 10:19:56 AM From: Dianelys Noble RN, CCDS Admit Date: 08/22/2020 10:35:00 AM Patient Name: Ariane Eric Visit Number: [id number] ATTENTION: The Clinical Documentation Specialists (CDI) and [facility] Coding Staff appreciate your assistance in clarifying documentation. Please respond to the clarification below the line at the bottom and electronically sign. The CDI & [facility] Coding staff will review the response and follow-up if needed. Please note: Queries are made part of the Legal Health Record. If you have any questions, please contact the author of this message via ITS. Dr. Luis A Gomez Your patient has Oxygen dependent per PMH of 08/21 ID and 08/22 Pulmonary Consults. Based on this information and the findings below, is there an additional diagnosis that is clinically appropriate for this patient? History/Risk Factors: Tobacco use: Unknown Home oxygen: Home Oxygen Dependent Asthma, Atrial Fib, Atrial Flutter, CHF, CVA, Dementia, HTN, Pneumonia, JOANN, CVA, Dysphagia with Peg tube, Mitral Valve Replacement, CAD with Stents, PPM Clinical Indicators: 08/20 1956 Admission Vital signs: Temp 98.6, HR 69, RR 18, B/P 173/91, Spo2 96% RA 08/29 Pulmonary: Lung/Breathing assessment: "Respiratory: bilateral: CTA." Treatment: Breathing TX: None Ordered Pulse ox: Per Unit Protocol O2: Maintained on Room Air Is there an additional diagnosis that is clinically appropriate for this patient? [ ] Chronic Hypoxic Respiratory Failure [ ] Chronic Hypercarbic respiratory Failure [ ] Other Diagnosis, please specify [ ] Unable to determine (Template Last Revised: April 2020) MTDD
[2020-08-30] MEDS: FUROSEMIDE 40 MG TAB PEG/G-TUBE SCH ×2 (10:37→20:23)
[2020-08-30] MEDS: ASPIRIN 81 MG PEG/G-TUBE SCH (10:37)
[2020-08-30] MEDS: levETIRAcetam ORAL SOLN 500 MG/5 ML CUP PEG/G-TUBE SCH (10:37)
[2020-08-30] MEDS: metFORMIN 500 MG TAB PEG/G-TUBE SCH ×2 (10:37→20:23)
[2020-08-30] MEDS: DILTIAZEM ORAL 30 MG TAB PEG/G-TUBE SCH ×2 (10:39→20:23)
[2020-08-30] MEDS: CHOLESTYRAMINE (WITH SUGAR) 4 GM PACKET PEG/G-TUBE SCH (10:39)
[2020-08-30] MEDS: ACETAMINOPHEN ORAL SUSP (PEDS) 3,840 MG/120 ML BOTTLE PEG/G-TUBE PRN (10:52)
[2020-08-30 11:32] LABS: Glucose,Whole Blood 222 mg/dL (75-99)
--- NOTE | 2020-08-30 11:43 | PN ---
PROGRESS NOTE DATE OF SERVICE: 08/30/2020 REASON FOR FOLLOWUP: MRSA urinary tract infection. INTERVAL HISTORY: The patient is afebrile. The patient is breathing comfortably. The patient is hemodynamically stable. No vomiting, diarrhea or any other changes reported by nursing staff. PHYSICAL EXAMINATION: Blood pressure 138/74, pulse of 66, temperature 97.8. She is 95% on room air. General description is an elderly female lying in bed in distress. Respiratory system: Unlabored breathing. Clear to auscultation anteriorly. Heart S1, S2. Regular rate and rhythm. Abdomen soft, nondistended. No guarding. No rigidity. LABS: INR is 3.2. DIAGNOSTIC IMPRESSION AND PLAN: Patient with MRSA urinary tract infection. Overall improvement. Take another few days of IV vanco thru the midline to finish her therapy. Continue supportive care. REDDY / PETERN: [id number] /
[2020-08-30] MEDS: VANCOMYCIN 1,250 MG in SODIUM CHLORIDE 0.9% 250 ML IVPB SCH (12:12)
[2020-08-30 16:47] LABS: Glucose,Whole Blood 175 mg/dL (75-99)
[2020-08-30] MEDS: FERROUS SULFATE ORAL ELIXIR 300 MG/5 ML CUP PEG/G-TUBE SCH (17:39)
[2020-08-30] MEDS: WARFARIN 5 MG TAB PO SCH (17:40)
[2020-08-30] MEDS: MULTIVITAMINS, THERA LIQUID 237 ML BOTTLE PEG/G-TUBE SCH (17:40)
--- NOTE | 2020-08-30 18:57 | DS ---
DISCHARGE SUMMARY DISCHARGE DIAGNOSES: 1. Chronic obstructive pulmonary disease. 2. Gram positive bacteremia. 3. Lactic acidosis. 4. Drug-resistant urinary tract infection. 5. Prior stroke with esophageal dysmobility. 6. Diabetes mellitus. 7. Atrial fibrillation, rapid ventricular response. 8. Pacemaker. 9. Dyslipidemia. HOME MEDICATIONS: Pravastatin 40 mg PEG tube daily, Keppra oral solution PEG tube daily 100 mg, aspirin 81 mg PEG tube daily, Tylenol 650 q.6 p.r.n., multivitamin daily. Dulcolax suppository p.r.n., DuoNeb updrafts q.i.d., Fleets enema rectal daily p.r.n., Questran pack 4 mg PEG tube daily at 8:00 am, Claritin 10 mg PEG tube daily, Lasix 40 mg PEG tube b.i.d., Accu-Chek a.c. and h.s., Levemir 48 units subcutaneously daily, Glucophage 500 PEG tube b.i.d., milk of magnesia 2400 mg PEG tube daily, Cardizem 30 mg PEG tube b.i.d. metoprolol or Lopressor 100 mg PEG tube t.i.d., Coumadin (see taper) daily, Claritin 10 mg daily PEG tube, Neurontin solution 100 mg PEG tube t.i.d., nitroglycerin sublingual 0.4 mg p.r.n. for chest pain. Continue on tube feeding about 60 cc an hour. She will continue with vancomycin per Dr. Chavira's recommendations for 10-14 days. Continue current treatments. Otherwise, she was admitted with drug-resistant UTI, altered mental status in atrial fibrillation with rapid ventricular response with dehydration. She was rehydrated. IV antibiotics were given. She had a positive blood culture which extended her stay in hospital, which repeat cultures were negative. She was sent home on vancomycin per Dr. Chavira's recommendations to be given in the senior care. Please see further orders. Diet will be tube feedings. Ambulate as tolerated with physical therapy. PT/OT. MMTEREZAL / NIMISHA: [id number] /
[2020-08-30 20:15] LABS: Glucose,Whole Blood 188 mg/dL (75-99)
[2020-08-30] MEDS: INSULIN DETEMIR (LEVEMIR) 100 UNIT/ML SYR SQ SCH (20:23)
[2020-08-30] MEDS: LORATADINE 10 MG TAB PEG/G-TUBE SCH (20:23)
[2020-08-30 23:58] LABS: Glucose,Whole Blood 146 mg/dL (75-99)
[2020-08-31 03:49] VITALS: RESP 16
[2020-08-31] MEDS: VANCOMYCIN 1,250 MG in SODIUM CHLORIDE 0.9% 250 ML IVPB SCH (05:32)
[2020-08-31] MEDS: METOPROLOL TARTRATE 50 MG TAB PEG/G-TUBE SCH (05:32)
[2020-08-31] MEDS: GABAPENTIN 100 MG CAP PEG/G-TUBE SCH (05:32)
[2020-08-31 06:03] LABS: Glucose,Whole Blood 154 mg/dL (75-99)
[2020-08-31 06:51] LABS: Glucose,Whole Blood 189 mg/dL (75-99)
[2020-08-31 07:15] VITALS: BP 132/76; PULSE 74; TEMP 98.4
[2020-08-31] MEDS: ASPIRIN 81 MG PEG/G-TUBE SCH (08:26)
[2020-08-31] MEDS: CHOLESTYRAMINE (WITH SUGAR) 4 GM PACKET PEG/G-TUBE SCH (08:27)
[2020-08-31] MEDS: levETIRAcetam ORAL SOLN 500 MG/5 ML CUP PEG/G-TUBE SCH (08:27)
[2020-08-31] MEDS: DILTIAZEM ORAL 30 MG TAB PEG/G-TUBE SCH (08:28)
[2020-08-31] MEDS: ACETAMINOPHEN ORAL SUSP (PEDS) 3,840 MG/120 ML BOTTLE PEG/G-TUBE PRN (08:29)
[2020-08-31] MEDS: metFORMIN 500 MG TAB PEG/G-TUBE SCH (08:29)
[2020-08-31] MEDS: FUROSEMIDE 40 MG TAB PEG/G-TUBE SCH (08:29)
[2020-08-31 09:51] LABS: Basophils # (A) 0.04 X 10*3/uL (0.00-0.10); Basophils % (A) 0.4 %; Eosinophils # (A) 0.97 X 10*3/uL (0.04-0.35); Eosinophils % (A) 9.4 %; HCT 37.3 % (37.2-46.3); HGB 10.9 g/dL (12.0-15.0); Lymphocytes % (A) 19.4 %; MCH 25.5 pg (27.0-32.0); MCHC 29.2 g/dL (32.0-37.0); MCV 87.1 fL (80.0-97.0); Mean Platelet Volume 12.5 fL (9.5-12.2); Monocytes # (A) 0.79 X 10*3/uL (0.20-1.00); Monocytes % (A) 7.6 %; Neutrophils # (A) 6.49 X 10*3/uL (1.80-7.70); Neutrophils % (A) 62.8 %; Platelet Count 225 X 10*3/uL (140-440); RBC 4.28 X 10*6/uL (4.10-5.20); RDW 20.5 % (11.5-14.5); WBC 10.33 X 10*3/uL (4.50-10.00)
[2020-08-31 11:29] LABS: Glucose,Whole Blood 182 mg/dL (75-99)
[2020-08-31 13:10] LABS: African American GFR (CKD) 104.1 (60.0-200.0); Albumin 3.2 g/dL (3.80-4.90); Albumin/Globulin Ratio 1.03 (1.60-3.17); Anion Gap 11.5 mmol/L (4.00-12.00); Calcium 9.3 mg/dL (8.7-10.3); Carbon Dioxide 25.5 mmol/L (21.6-31.8); Globulin 3.1 g/dL (1.6-3.3); Non-African American GFR(CKD) 89.8 (60.0-200.0); Potassium 4.4 mmol/L (3.5-5.5); Total Bilirubin 0.2 mg/dL (0.3-1.2); Total Protein 6.3 g/dL (6.2-8.2)
--- NOTE | 2020-09-01 09:34 | DS ---
DISCHARGE SUMMARY ADDENDUM: Chronic diastolic heart failure, atrial flutter, unable to determine what type. MMODL / IJN: [id number] /
--- NOTE | 2020-09-01 09:45 | PN ---
PROGRESS NOTE ADDENDUM: Chronic hypoxemic respiratory failure, chronic diastolic heart failure, atrial flutter, unable to determine what type. MMODL / IJN: [id number] /
--- NOTE | 2020-09-02 15:21 | PN ---
PROGRESS NOTE ADDENDUM: Atrial flutter, type 1. MMODL / IJN: [id number] /
== END 2020-08-31 12:36 | DRG 698 ==
LOC: EC 19:56 → 6NMEDSUR 23:23 → OBSVTOIN 08-22 10:35 → 4SSUR 08-23 17:25
PROVIDERS: ADMIT Family Medicine; ATTEND Family Medicine
PROC: 05HB33Z Insertion of Infusion Device into Right Basilic Vein, Percutaneous Approach (ICD-10-PCS; principal; 2020-08-29 15:55)
DX: T83.518A Infection and inflammatory reaction due to other urinary catheter, initial encounter (principal); A41.02 Sepsis due to Methicillin resistant Staphylococcus aureus; J18.9 Pneumonia, unspecified organism; E87.2 Acidosis; I69.354 Hemiplegia and hemiparesis following cerebral infarction affecting left non-dominant side; I47.1 Supraventricular tachycardia; I48.92 Unspecified atrial flutter; I50.32 Chronic diastolic (congestive) heart failure; J44.0 Chronic obstructive pulmonary disease with (acute) lower respiratory infection; J96.11 Chronic respiratory failure with hypoxia; J98.11 Atelectasis; Y84.6 Urinary catheterization as the cause of abnormal reaction of the patient, or of later complication, without mention of misadventure at the time of the procedure; E11.9 Type 2 diabetes mellitus without complications; Z20.822 Contact with and (suspected) exposure to COVID-19; F02.80 Dementia in other diseases classified elsewhere, unspecified severity, without behavioral disturbance, psychotic disturbance, mood disturbance, and anxiety; Z99.81 Dependence on supplemental oxygen; G30.9 Alzheimer's disease, unspecified; I44.1 Atrioventricular block, second degree; I69.398 Other sequelae of cerebral infarction; Z95.2 Presence of prosthetic heart valve; I69.391 Dysphagia following cerebral infarction; I05.0 Rheumatic mitral stenosis; N30.90 Cystitis, unspecified without hematuria; I11.0 Hypertensive heart disease with heart failure; Z93.0 Tracheostomy status; Z85.038 Personal history of other malignant neoplasm of large intestine; R13.10 Dysphagia, unspecified; Z79.01 Long term (current) use of anticoagulants; Z90.89 Acquired absence of other organs; R32 Unspecified urinary incontinence; G43.909 Migraine, unspecified, not intractable, without status migrainosus; I25.10 Atherosclerotic heart disease of native coronary artery without angina pectoris; E78.5 Hyperlipidemia, unspecified; I48.0 Paroxysmal atrial fibrillation; R79.1 Abnormal coagulation profile; Z74.01 Bed confinement status; Z79.4 Long term (current) use of insulin; Z79.82 Long term (current) use of aspirin; Z80.0 Family history of malignant neoplasm of digestive organs; Z82.3 Family history of stroke; Z86.14 Personal history of Methicillin resistant Staphylococcus aureus infection; Z87.440 Personal history of urinary (tract) infections; Z90.710 Acquired absence of both cervix and uterus; Z93.1 Gastrostomy status; Z95.0 Presence of cardiac pacemaker; Z95.5 Presence of coronary angioplasty implant and graft; Z98.42 Cataract extraction status, left eye; Z98.41 Cataract extraction status, right eye; Z96.1 Presence of intraocular lens; Z86.010 Personal history of colon polyps
CPT/HCPCS: 36410; 36415; 71045; 74019; 76937; 80048; 80053; 80202; 81001; 82565; 83605; 83735; 83880; 84145; 84484; 85025; 85610; 85730; 86140; 87040; 87077; 87086; 87186; 87635; 93005; 94760; 99285

== ENCOUNTER 2020-09-15 21:11 | Inpatient (IN) | payer MEDICARE, OTHER ==
[2020-09-15] MEDS ORDERED: SODIUM CHLORIDE 0.9% 500 ML 500 ML IV ONE (22:21)
--- NOTE | 2020-09-15 22:46 | XR ---
EXAMINATION TYPE: XR chest 1V portable DATE OF EXAM: 09/15/2020 COMPARISON: 08/20/2020 HISTORY: Altered mental status TECHNIQUE: Single view FINDINGS: There are sternal wires. There is right axillary pacemaker. There is mild coarsening of the lung markings. There is no obvious heart failure. There are no hilar masses. I see no definite pleur al effusion. IMPRESSION: Mild pulmonary fibrosis. No obvious heart failure. No adverse change compared to old exam .
[2020-09-15 23:16] LABS: Anisocytosis Slight; Basophils # (A) 0.1 k/uL (0-0.2); Basophils % (A) 1 %; Eosinophils # (A) 0.2 k/uL (0-0.7); Eosinophils % (A) 1 %; HCT 44.8 % (34.0-46.0); HGB 13.7 gm/dL (11.4-16.0); Hypochromasia Moderate; Lymphocytes # (A) 2.2 k/uL (1.0-4.8); Lymphocytes % (A) 15 %; MCHC 30.5 g/dL (31.0-37.0); MCV 85.3 fL (80.0-100.0); Mean Platelet Volume 10.3; Monocytes # (A) 0.8 k/uL (0-1.0); Monocytes % (A) 5 %; Neutrophils # (A) 11.7 k/uL (1.3-7.7); Neutrophils % (A) 77 %; Platelet Count 252 k/uL (150-450); RBC 5.25 m/uL (3.80-5.40); RDW 18.6 % (11.5-15.5); WBC 15.2 k/uL (3.8-10.6)
[2020-09-15 23:43] LABS: ALT 21 U/L (4-34); AST 32 U/L (14-36); African American GFR (CKD) >90 (>60 ml/min/1.73 sqM); Albumin 3.7 g/dL (3.5-5.0); Alkaline Phosphatase 139 U/L (38-126); Anion Gap 8 mmol/L; Blood Urea Nitrogen 47 mg/dL (7-17); Calcium 9.7 mg/dL (8.4-10.2); Carbon Dioxide 29 mmol/L (22-30); Chloride 103 mmol/L (98-107); Glucose 261 mg/dL (74-99); Non-African American GFR(CKD) >90 (>60 ml/min/1.73 sqM); Potassium 4.6 mmol/L (3.5-5.1); Sodium 140 mmol/L (137-145); Total Bilirubin 0.4 mg/dL (0.2-1.3); Total Protein 7.2 g/dL (6.3-8.2)
[2020-09-15 23:51] LABS: INR 1.1 (<1.2); Prothrombin Time 11.9 sec (9.0-12.0)
[2020-09-15 23:52] LABS: Partial Thromboplastin Time 21.9 sec (22.0-30.0)
[2020-09-16 00:01] LABS: Appearance,Urine Cloudy (Clear); Bacteria,Urine Rare /hpf; Bilirubin,Urine Negative (Negative); Blood,Urine Large (Negative); Color,Urine Yellow; Glucose,Urine (UA) Negative (Negative); Ketones,Urine Negative (Negative); Leukocyte Esterase,Urine Large (Negative); Nitrite,Urine Negative (Negative); PH, Urine 7.5 (5.0-8.0); Protein,Urine 1+ (Negative); RBC,Urine 75 /hpf (0-5); Specific Gravity,Urine 1.021 (1.001-1.035); Squamous Epithelial Cell,Urine 1 /hpf (0-4); Urobilinogen,Urine <2.0 mg/dL (<2.0); WBC,Urine >182 /hpf (0-5)
--- NOTE | 2020-09-16 00:30 | CT ---
EXAMINATION TYPE: CT brain wo con DATE OF EXAM: 09/15/2020 COMPARISON: 09/27/2017 HISTORY: AMS CT DLP: 2174.40 mGycm Automated exposure control for dose reduction was used. Exam performed with no contrast. There is large area of hypodensity right cerebral hemisphere involving the temporal lobe and parietal lobe consistent with old right middle cerebral artery infarct. There is similar 4 cm area of old inf arct in the medial left occipital lobe. There is no midline shift. There is some enlargement of the v entricles. There is no evidence of intracranial hemorrhage. The calvarium is intact. IMPRESSION: Old large right hemisphere infarct and left occipital lobe infarct without change compared to old exa m. Cerebral atrophy. No evidence of a new infarct.
[2020-09-16] MEDS ORDERED: SODIUM CHLORIDE 0.9% 1,000 ML IV ONE (01:07)
[2020-09-16] MEDS ORDERED: SODIUM CHLORIDE 0.9% 1,000 ML IV STA (01:07)
[2020-09-16] MEDS ORDERED: DILTIAZEM DRIP BOLUS FROM BAG 1 MG SOLN IV ONE (02:11)
--- NOTE | 2020-09-16 02:11 | ED ---
Altered Mental Status HPI - General Chief Complaint: Altered Mental Status Stated Complaint: Altered Mental Status Time Seen by Provider: 09/15/20 22:05 Source: EMS Mode of arrival: EMS Limitations: altered mental status - Related Data Home Medications Medication Instructions Recorded Confirmed Pravastatin Sodium [Pravachol] 40 mg PEG/G-TUBE HS@2100 05/20/17 09/15/20 levETIRAcetam [Keppra Oral 100 mg PEG/G-TUBE DAILY@0800 09/27/17 09/15/20 Solution] Aspirin 81 mg PEG/G-TUBE DAILY@0800 05/30/18 09/15/20 Acetaminophen Oral Susp [Tylenol] 650 mg PEG/G-TUBE Q6H PRN 12/25/19 09/15/20 Multivitamins, Thera Liquid 5 ml PEG/G-TUBE DAILY@1700 12/25/19 09/15/20 [Theragran Liquid (formulary)] bisacodyL [Dulcolax] 10 mg RECTAL DAILY PRN 12/25/19 09/15/20 Ipratropium-Albuterol Nebulize 3 ml INHALATION RT-Q6H PRN 06/11/20 09/15/20 [Duoneb 0.5 mg-3 mg/3 ml Soln] Na Phos,M-B/Na Phos,Di-Ba [Fleet 133 ml RECTAL DAILY PRN 06/11/20 09/15/20 Adult] Furosemide [Lasix] 40 mg PEG/G-TUBE BID@0800,1700 06/24/20 09/15/20 INSULIN ASPART (NovoLOG) [NovoLOG See Protocol SQ ACHS 06/24/20 09/15/20 (formulary)] Insulin Detemir (Levemir) [Levemir] 48 unit SQ HS@2130 06/24/20 09/15/20 metFORMIN HCL [Glucophage] 500 mg PEG/G-TUBE BID@0800,1700 06/24/20 09/15/20 Diltiazem Oral [Cardizem*] 30 mg PEG/G-TUBE BID@0600,1700 07/15/20 09/15/20 Metoprolol Tartrate [Lopressor] 100 mg PEG/G-TUBE 07/15/20 09/15/20 TID@0600,1400,2200 Cholestyramine (with Sugar) 4 gm PEG/G-TUBE HS@2200 09/15/20 09/15/20 [Questran Packet] Gabapentin [Neurontin] 100 mg PEG/G-TUBE 09/15/20 09/15/20 TID@0600,1400,2100 Liquacel 30 ml PEG/G-TUBE BID@0800,1600 09/15/20 09/15/20 Simethicone 40 mg PEG/G-TUBE BID@0800,1700 09/15/20 09/15/20 Warfarin [Coumadin] 3 mg PEG/G-TUBE DAILY@1700 09/15/20 09/15/20 Previous Rx's Medication Instructions Recorded Loratadine [Claritin] 10 mg PEG/G-TUBE DAILY@1700 tab 06/14/20 Ferrous Sulfate Oral Elixir 300 mg PEG/G-TUBE DAILY@1700 ml 06/29/20 [Feosol Liquid] Magnesium Hydroxide [Milk of 2,400 mg PEG/G-TUBE DAILY PRN ml 06/29/20 Magnesia Concentrate] Nitroglycerin Sl Tabs [Nitrostat] 0.4 mg SUBLINGUAL Q5M PRN tab 06/29/20 Allergies Allergy/AdvReac Type Severity Reaction Status Date / Time ciprofloxacin [From Cipro] Allergy Rash/Hives Verified 09/15/20 23:24 ciprofloxacin HCl Allergy Rash/Hives Verified 09/15/20 23:24 [From Cipro] Quinolones Allergy Unknown Verified 09/15/20 23:24 Review of Systems ROS Statement: Those systems with pertinent positive or pertinent negative responses have been documented in the HPI. ROS Other: All systems not noted in ROS Statement are negative. Past Medical History Past Medical History: Atrial Fibrillation, Atrial Flutter, Asthma, Cancer, Heart Failure, CVA/TIA, Dementia, Diabetes Mellitus, GERD/Reflux, GI Bleed, Hyperlipidemia, Hypertension, Pneumonia, Sleep Apnea/CPAP/BIPAP Additional Past Medical History / Comment(s): Verified with [employer] papers r/t son Jose Rafael being unsure of history. Jose Rafael states he is also pt's DPOA. 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, post traumatic seizures, History of Any Multi-Drug Resistant Organisms: MRSA Date of last positivie culture/infection: 08/21/20 MDRO Source:: MRSA URINE Past Surgical History: Breast Surgery, Cardiac Valve Replacement, Heart Catheterization With Stent, Hysterectomy, Orthopedic Surgery, Pacemaker, Tonsillectomy Additional Past Surgical History / Comment(s): Peg tube, mechanical mitral valve 2000, polypectomy spinal cord/cyst removed, TEEs, CVNs, colonoscopies, bilateral cataract removal/lens implants, L rotator cuff repair, R femur fracture with IM hip/screw/nail, L breast lumpectomy, Past Anesthesia/Blood Transfusion Reactions: No Reported Reaction Date of Last Stent Placement:: 2006 Type of Cardiac Device: Permanent Pacemaker Device Placement Date:: 2009 Past Psychological History: Depression Additional Psychological History / Comment(s): Pt resides at [facility] [place]. She is nonambulatory-get placed in wheelchair. She needs assist with all ADLs. Pt is NPO and has a peg tube. Smoking Status: Unknown if ever smoked Past Alcohol Use History: Unable to Obtain Additional Past Alcohol Use History / Comment(s): SMOKED OFF AND ON 1960 LESS THAN A YEAR THEN QUIT Past Drug Use History: Unable to Obtain - Past Family History Father Family Medical History: GI Bleed Additional Family Medical History / Comment(s): OF BLEEDING ULCER AT AGE 64 Mother Family Medical History: Cancer, CVA/TIA Additional Family Medical History / Comment(s): HX STROKES, COLON CANCER General Exam Limitations: altered mental status Course Vital Signs 09/15/20 09/15/20 09/15/20 22:00 22:01 23:00 Temperature 98.2 F Pulse Rate 156 H 150 H Respiratory 20 22 Rate Blood Pressure 161/87 161/87 146/86 O2 Sat by Pulse 95 100 Oximetry 09/16/20 09/16/20 00:00 01:00 Temperature Pulse Rate 130 H 123 H Respiratory 25 H 26 H Rate Blood Pressure 133/96 130/113 O2 Sat by Pulse 98 98 Oximetry Medical Decision Making - Lab Data Result diagrams: 09/15/20 22:29 09/15/20 22:29 Lab Results 0809/15/20 09/15/20 Range/Units 22:29 22:29 22:29 WBC 15.2 H (3.8-10.6) k/uL RBC 5.25 (3.80-5.40) m/uL Hgb 13.7 (11.4-16.0) gm/dL Hct 44.8 (34.0-46.0) % MCV 85.3 (80.0-100.0) fL MCH 26.0 (25.0-35.0) pg MCHC 30.5 L (31.0-37.0) g/dL RDW 18.6 H (11.5-15.5) % Plt Count 252 (150-450) k/uL MPV 10.3 Neutrophils % 77 % Lymphocytes % 15 % Monocytes % 5 % Eosinophils % 1 % Basophils % 1 % Neutrophils # 11.7 H (1.3-7.7) k/uL Lymphocytes # 2.2 (1.0-4.8) k/uL Monocytes # 0.8 (0-1.0) k/uL Eosinophils # 0.2 (0-0.7) k/uL Basophils # 0.1 (0-0.2) k/uL Hypochromasia Moderate Anisocytosis Slight PT 11.9 (9.0-12.0) sec INR 1.1 (<1.2) APTT 21.9 L (22.0-30.0) sec Sodium (137-145) mmol/L Potassium (3.5-5.1) mmol/L Chloride (98-107) mmol/L Carbon Dioxide (22-30) mmol/L Anion Gap mmol/L BUN (7-17) mg/dL Creatinine (0.52-1.04) mg/dL Est GFR (CKD-EPI)AfAm (>60 ml/min/1.73 sqM) Est GFR (CKD-EPI)NonAf (>60 ml/min/1.73 sqM) Glucose (74-99) mg/dL Lactic Ac Sepsis Rflx Plasma Lactic Acid Buddy (0.7-2.0) mmol/L Calcium (8.4-10.2) mg/dL Total Bilirubin (0.2-1.3) mg/dL AST (14-36) U/L ALT (4-34) U/L Alkaline Phosphatase (38-126) U/L Troponin I (0.000-0.034) ng/mL Total Protein (6.3-8.2) g/dL Albumin (3.5-5.0) g/dL Urine Color Yellow Urine Appearance Cloudy H (Clear) Urine pH 7.5 (5.0-8.0) Ur Specific [place] 1.021 (1.001-1.035) Urine Protein 1+ H (Negative) Urine Glucose (UA) Negative (Negative) Urine Ketones Negative (Negative) Urine Blood Large H (Negative) Urine Nitrite Negative (Negative) Urine Bilirubin Negative (Negative) Urine Urobilinogen <2.0 (<2.0) mg/dL Ur Leukocyte Esterase Large H (Negative) Urine RBC 75 H (0-5) /hpf Urine WBC >182 H (0-5) /hpf Urine WBC Clumps Moderate H (None) /hpf Ur Squamous Epith Cells 1 (0-4) /hpf Urine Bacteria Rare H (None) /hpf Coronavirus (PCR) (Not Detectd) 09/15/20 09/15/20 09/15/20 Range/Units 22:29 22:29 22:29 WBC (3.8-10.6) k/uL RBC (3.80-5.40) m/uL Hgb (11.4-16.0) gm/dL Hct (34.0-46.0) % MCV (80.0-100.0) fL MCH (25.0-35.0) pg MCHC (31.0-37.0) g/dL RDW (11.5-15.5) % Plt Count (150-450) k/uL MPV Neutrophils % % Lymphocytes % % Monocytes % % Eosinophils % % Basophils % % Neutrophils # (1.3-7.7) k/uL Lymphocytes # (1.0-4.8) k/uL Monocytes # (0-1.0) k/uL Eosinophils # (0-0.7) k/uL Basophils # (0-0.2) k/uL Hypochromasia Anisocytosis PT (9.0-12.0) sec INR (<1.2) APTT (22.0-30.0) sec Sodium 140 (137-145) mmol/L Potassium 4.6 (3.5-5.1) mmol/L Chloride 103 (98-107) mmol/L Carbon Dioxide 29 (22-30) mmol/L Anion Gap 8 mmol/L BUN 47 H (7-17) mg/dL Creatinine 0.50 L (0.52-1.04) mg/dL Est GFR (CKD-EPI)AfAm >90 (>60 ml/min/1.73 sqM) Est GFR (CKD-EPI)NonAf >90 (>60 ml/min/1.73 sqM) Glucose 261 H (74-99) mg/dL Lactic Ac Sepsis Rflx Plasma Lactic Acid Buddy 2.4 H* (0.7-2.0) mmol/L Calcium 9.7 (8.4-10.2) mg/dL Total Bilirubin 0.4 (0.2-1.3) mg/dL AST 32 (14-36) U/L ALT 21 (4-34) U/L Alkaline Phosphatase 139 H (38-126) U/L Troponin I 0.055 H* (0.000-0.034) ng/mL Total Protein 7.2 (6.3-8.2) g/dL Albumin 3.7 (3.5-5.0) g/dL Urine Color Urine Appearance (Clear) Urine pH (5.0-8.0) Ur Specific [place] (1.001-1.035) Urine Protein (Negative) Urine Glucose (UA) (Negative) Urine Ketones (Negative) Urine Blood (Negative) Urine Nitrite (Negative) Urine Bilirubin (Negative) Urine Urobilinogen (<2.0) mg/dL Ur Leukocyte Esterase (Negative) Urine RBC (0-5) /hpf Urine WBC (0-5) /hpf Urine WBC Clumps (None) /hpf Ur Squamous Epith Cells (0-4) /hpf Urine Bacteria (None) /hpf Coronavirus (PCR) (Not Detectd) 09/15/20 09/15/20 Range/Units 22:29 23:49 WBC (3.8-10.6) k/uL RBC (3.80-5.40) m/uL Hgb (11.4-16.0) gm/dL Hct (34.0-46.0) % MCV (80.0-100.0) fL MCH (25.0-35.0) pg MCHC (31.0-37.0) g/dL RDW (11.5-15.5) % Plt Count (150-450) k/uL MPV Neutrophils % % Lymphocytes % % Monocytes % % Eosinophils % % Basophils % % Neutrophils # (1.3-7.7) k/uL Lymphocytes # (1.0-4.8) k/uL Monocytes # (0-1.0) k/uL Eosinophils # (0-0.7) k/uL Basophils # (0-0.2) k/uL Hypochromasia Anisocytosis PT (9.0-12.0) sec INR (<1.2) APTT (22.0-30.0) sec Sodium (137-145) mmol/L Potassium (3.5-5.1) mmol/L Chloride (98-107) mmol/L Carbon Dioxide (22-30) mmol/L Anion Gap mmol/L BUN (7-17) mg/dL Creatinine (0.52-1.04) mg/dL Est GFR (CKD-EPI)AfAm (>60 ml/min/1.73 sqM) Est GFR (CKD-EPI)NonAf (>60 ml/min/1.73 sqM) Glucose (74-99) mg/dL Lactic Ac Sepsis Rflx Y Plasma Lactic Acid Buddy (0.7-2.0) mmol/L Calcium (8.4-10.2) mg/dL Total Bilirubin (0.2-1.3) mg/dL AST (14-36) U/L ALT (4-34) U/L Alkaline Phosphatase (38-126) U/L Troponin I (0.000-0.034) ng/mL Total Protein (6.3-8.2) g/dL Albumin (3.5-5.0) g/dL Urine Color Urine Appearance (Clear) Urine pH (5.0-8.0) Ur Specific [place] (1.001-1.035) Urine Protein (Negative) Urine Glucose (UA) (Negative) Urine Ketones (Negative) Urine Blood (Negative) Urine Nitrite (Negative) Urine Bilirubin (Negative) Urine Urobilinogen (<2.0) mg/dL Ur Leukocyte Esterase (Negative) Urine RBC (0-5) /hpf Urine WBC (0-5) /hpf Urine WBC Clumps (None) /hpf Ur Squamous Epith Cells (0-4) /hpf Urine Bacteria (None) /hpf Coronavirus (PCR) Not Detected (Not Detectd) Disposition Clinical Impression: Urinary tract infection, Atrial flutter with rapid ventricular response, Mental status change Disposition: ADMITTED IP TO THIS HOSP Condition: Poor Referrals: Luis A Gomez MD [Primary Care Provider] - 1-2 days
[2020-09-16] MEDS: DILTIAZEM 125 MG in SODIUM CHLORIDE 0.9% 100 ML IV SCH (02:39)
[2020-09-16] MEDS: HEPARIN SODIUM,PORCINE/PF 5,000 UNIT/0.5 ML SYRINGE SQ SCH ×2 (09:30→21:39)
[2020-09-16 11:58] LABS: Glucose,Whole Blood 270 mg/dL (75-99)
[2020-09-16] MEDS ORDERED: MAGNESIUM HYDROXIDE 2,400 MG/10 ML CUP PEG/G-TUBE PRN (14:05)
[2020-09-16] MEDS ORDERED: NITROGLYCERIN SL TABS 0.4 MG TAB SUBLINGUAL PRN (14:05)
[2020-09-16] MEDS ORDERED: bisacodyL 10 MG SUPP RECTAL PRN (14:05)
[2020-09-16] MEDS ORDERED: ACETAMINOPHEN ORAL SUSP (PEDS) 3,840 MG/120 ML BOTTLE PEG/G-TUBE PRN (14:05)
[2020-09-16] MEDS ORDERED: NA PHOS,M-B/NA PHOS,DI-BA 133 ML ENEMA RECTAL PRN (14:05)
[2020-09-16] MEDS ORDERED: IPRATROPIUM-ALBUTEROL 3 ML NEB INHALATION PRN (14:05)
[2020-09-16] MEDS ORDERED: NON FORMULARY DRUG (Liquacel 30 ML) PEG/G-TUBE SCH (16:00)
[2020-09-16 16:57] LABS: Glucose,Whole Blood 284 mg/dL (75-99)
[2020-09-16] MEDS ORDERED: DILTIAZEM ORAL 30 MG TAB PEG/G-TUBE SCH (17:00)
[2020-09-16] MEDS ORDERED: WARFARIN 3 MG TAB PEG/G-TUBE SCH ×2 (17:00→18:00)
[2020-09-16] MEDS: FERROUS SULFATE ORAL ELIXIR 300 MG/5 ML CUP PEG/G-TUBE SCH (17:19)
[2020-09-16] MEDS: LORATADINE 10 MG TAB PEG/G-TUBE SCH (17:19)
[2020-09-16] MEDS: MULTIVITAMINS, THERA LIQUID 237 ML BOTTLE PEG/G-TUBE SCH (17:20)
[2020-09-16] MEDS: metFORMIN 500 MG TAB PEG/G-TUBE SCH (17:20)
[2020-09-16] MEDS: SIMETHICONE 40 MG/0.6 ML DROPS 2,000 MG/30 ML BOTTLE PEG/G-TUBE SCH (17:20)
[2020-09-16] MEDS: FUROSEMIDE 40 MG TAB PEG/G-TUBE SCH (17:20)
[2020-09-16 20:28] LABS: Glucose,Whole Blood 295 mg/dL (75-99)
[2020-09-16] MEDS: GABAPENTIN 100 MG CAP PEG/G-TUBE SCH (21:39)
[2020-09-16] MEDS: CHOLESTYRAMINE (WITH SUGAR) 4 GM PACKET PEG/G-TUBE SCH (21:39)
[2020-09-16] MEDS: METOPROLOL TARTRATE 50 MG TAB PEG/G-TUBE SCH (21:39)
[2020-09-16] MEDS: INSULIN ASPART (NovoLOG) 100 UNIT/ML VIAL SQ SCH (22:18)
[2020-09-17] MEDS: DILTIAZEM 125 MG in SODIUM CHLORIDE 0.9% 100 ML IV SCH (03:40)
[2020-09-17 03:49] LABS: Anisocytosis Slight; Basophils # (A) 0.1 k/uL (0-0.2); Basophils % (A) 1 %; Eosinophils # (A) 0.5 k/uL (0-0.7); Eosinophils % (A) 4 %; HCT 41.1 % (34.0-46.0); HGB 12.6 gm/dL (11.4-16.0); Hypochromasia Marked; Lymphocytes # (A) 1.9 k/uL (1.0-4.8); Lymphocytes % (A) 17 %; MCH 26.6 pg (25.0-35.0); MCHC 30.7 g/dL (31.0-37.0); MCV 86.7 fL (80.0-100.0); Mean Platelet Volume 9.3; Monocytes # (A) 0.5 k/uL (0-1.0); Monocytes % (A) 4 %; Neutrophils # (A) 8.4 k/uL (1.3-7.7); Neutrophils % (A) 73 %; Platelet Count 254 k/uL (150-450); RBC 4.74 m/uL (3.80-5.40); RDW 18.2 % (11.5-15.5); WBC 11.6 k/uL (3.8-10.6)
[2020-09-17 03:57] LABS: ALT 22 U/L (4-34); AST 30 U/L (14-36); African American GFR (CKD) >90 (>60 ml/min/1.73 sqM); Albumin 3.3 g/dL (3.5-5.0); Alkaline Phosphatase 95 U/L (38-126); Anion Gap 5 mmol/L; Blood Urea Nitrogen 29 mg/dL (7-17); Carbon Dioxide 29 mmol/L (22-30); Chloride 107 mmol/L (98-107); Glucose 224 mg/dL (74-99); Magnesium 2.3 mg/dL (1.6-2.3); Non-African American GFR(CKD) >90 (>60 ml/min/1.73 sqM); Potassium 4.2 mmol/L (3.5-5.1); Sodium 141 mmol/L (137-145); Total Bilirubin 0.4 mg/dL (0.2-1.3); Total Protein 6.6 g/dL (6.3-8.2)
[2020-09-17] MEDS: METOPROLOL TARTRATE 50 MG TAB PEG/G-TUBE SCH ×3 (06:24→21:59)
[2020-09-17] MEDS: GABAPENTIN 100 MG CAP PEG/G-TUBE SCH ×3 (06:25→22:00)
[2020-09-17 06:32] LABS: Glucose,Whole Blood 227 mg/dL (75-99)
[2020-09-17] MEDS: INSULIN ASPART (NovoLOG) 100 UNIT/ML VIAL SQ SCH ×4 (06:37→21:59)
--- NOTE | 2020-09-17 07:22 | CONS ---
CONSULTATION DATE OF SERVICE: 09/16/2020 REASON FOR CONSULTATION: Urinary tract infection. HISTORY OF PRESENT ILLNESS: The patient is a 75-year-old female, a prison resident, with multiple admissions to the hospital, history of recurrent urinary tract infection, catheter associated, in this patient who was brought to the ER last night for evaluation of mental status changes. Unfortunately no documentation on the ER sheet to determine of there were any other symptoms associated with this transfer and the transfer sheet is not available. The patient on presentation to the hospital was afebrile and no fever has been recorded. Subsequently the patient did have no hypoxemia, slight tachycardia, but no hypertension. The patient did have white count of 15.2. BUN was slightly elevated. Creatinine was normal. Lactic acid was 2.4. Troponin mildly elevated. Urine was positive with large leukocyte esterase, more than 1-2 WBCs. Olea PCR was negative. Chest x-ray was negative. Patient was started on Rocephin and admitted to the hospital. Infectious Disease was consulted for further management of antibiotic therapy. The patient at time of my evaluation is sleepy, lethargic and unable to provide any history. Most of the information has been obtained from review of the chart. REVIEW OF SYSTEMS: Could not be reliably obtained because of the mental status. Positive points have been mentioned in HPI. PAST MEDICAL HISTORY: Recurrent urinary tract infection, atrial fibrillation, heart failure with CVA, TIA, dementia, diabetes mellitus, GERD, hypertension, hyperlipidemia, pneumonia, sleep apnea. PAST SURGICAL HISTORY: Heart catheterization with stent, pacemaker placement, tonsillectomy, breast surgery, PEG tube placement, colonoscopy. SOCIAL HISTORY: Remote history of smoking. longterm resident. No drinking or drug use. FAMILY HISTORY: No pertinent findings noticed. ALLERGIES: CIPROFLOXACIN. MEDICATIONS: Include the patient is currently on Tylenol, DuoNeb, aspirin, Dulcolax, Rocephin 1 g q.24h. he is on Questran, diltiazem, Lasix, Neurontin, heparin, NovoLog, Theragran, Keppra, Claritin, Milk of Magnesia, Glucophage, Lopressor, Nitrostat. PHYSICAL EXAMINATION: VITAL SIGNS: Blood pressure is 119/85 with a pulse of 76, temperature 97.6, she is 100% on 2 L nasal cannula. GENERAL DESCRIPTION: An elderly female lying in bed in no distress. No tachypnea or accessory muscles of respiration use. HEENT: Examination shows no pallor or scleral icterus. Oral mucous membrane is dry. NECK: Trachea central, no thyromegaly. LUNGS: Unlabored breathing, clear to auscultation anteriorly. No wheeze or crackle. HEART: S1-S2, regular rate and rhythm. ABDOMEN: Soft, no tenderness. EXTREMITIES: No edema of the feet. SKIN: No rash or mass palpable. NEUROLOGICAL: Patient is currently lethargic, sleepy. Orientation could not be determined. LABS: Hemoglobin is 13.7, white count of 15.2, BUN of 47, creatinine 0.50. Lactic acid was elevated. Urine was positive. Chest x-ray was negative. DIAGNOSTIC IMPRESSION: Patient admitted to the hospital with mental status changes which are likely multifactorial. This patient did have history of recurrent urinary tract infection, catheter associated, with significantly positive UA likely representing an episode of catheter associated UTI, likely from enteric Gram-negative pathogen. PLAN: 1. Change out the Gross catheter if it has not been changed during this admission. 2. Rocephin 1 g . 3. Gentle IV fluid. 4. Will follow on clinical condition and culture to further adjust medication if needed. Thank you for this consultation. Will follow this patient along with you. MMODL / IJN: [id number] /
[2020-09-17] MEDS: metFORMIN 500 MG TAB PEG/G-TUBE SCH ×2 (08:40→17:27)
[2020-09-17] MEDS: FUROSEMIDE 40 MG TAB PEG/G-TUBE SCH ×2 (08:40→17:27)
[2020-09-17] MEDS: ASPIRIN 81 MG PEG/G-TUBE SCH (08:40)
[2020-09-17] MEDS: HEPARIN SODIUM,PORCINE/PF 5,000 UNIT/0.5 ML SYRINGE SQ SCH ×2 (08:40→22:00)
[2020-09-17] MEDS: levETIRAcetam ORAL SOLN 500 MG/5 ML CUP PEG/G-TUBE SCH (08:41)
[2020-09-17] MEDS: SIMETHICONE 40 MG/0.6 ML DROPS 2,000 MG/30 ML BOTTLE PEG/G-TUBE SCH ×2 (08:42→17:28)
[2020-09-17 10:09] LABS: INR 1.2 (<1.2); Prothrombin Time 12.1 sec (9.0-12.0)
[2020-09-17] MEDS: DILTIAZEM ORAL 60 MG TAB PO SCH ×3 (11:00→22:00)
[2020-09-17 11:13] VITALS: BMI 31.4
[2020-09-17 11:35] LABS: Glucose,Whole Blood 186 mg/dL (75-99)
--- NOTE | 2020-09-17 12:51 | P.CRDCN ---
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 Patient has not been seen in the office since 2018.We have been asked to see the patient in consultation for A. fib with RVR. Patient examined at the bedside. Patient is lethargic and unable to provide any history. Patient was found to be in A. fib with RVR. She was started on a Cardizem drip which is infusing at 5 mg an hour. Upon reviewing telemetry, the patients heart rate is currently controlled. EKG reveals A. fib with RVR Chest xray mild pulmonary fibrosis. No obvious heart failure. Laboratory data: WBC 11.6. Hemoglobin 12.6. Platelet count 254. INR 1.2. Sodium 141. Potassium 4.2. BUN 29. Creatinine 0.43. Current home cardiac medications include Coumadin 3 mg daily, metoprolol tartrate 100 mg 3 times a day, Lasix 40 mg twice a day, pravastatin 40 mg daily, Cardizem 30 mg twice a day, aspirin 81 mg daily Most recent echocardiogram obtained in June 2020 revealed ejection fraction 55- 60%. Mechanical mitral valve noted. Mild tricuspid regurgitation. Mild pulmonary hypertension. REVIEW OF SYSTEMS: Unable to obtain thorough review of systems secondary to altered mental status PHYSICAL EXAM: VITAL SIGNS: Reviewed. GENERAL: Well-developed in no acute distress. HEENT: Head is normocephalic. Pupils are equal, round. Sclerae anicteric. Mucous membranes of the mouth are moist. Neck supple. No JVD or thyromegaly LUNGS: Respirations even and unlabored. Lungs essentially clear to auscultation bilaterally. HEART: Regular rate and rhythm. S1 and S2 heard. ABDOMEN: Soft. Nondistended. Nontender. EXTREMITIES: Normal range of motion. No clubbing or cyanosis. Peripheral pulses intact. No lower extremity edema NEUROLOGIC: Awake and alert. Oriented x 3. ASSESSMENT: Recurrent urinary tract infection Altered mental status Paroxysmal atrial fibrillation with RVR Hypertension Rheumatic mitral stenosis status post mechanical valve placement 2000 Sick sinus syndrome with history of pacemaker insertion History of CVA with left-sided paralysis History of dysphagia with PEG tube placement PLAN: No need to repeat echocardiogram as this was performed in June 2020 Resume home cardiac medications Discontinue IV Cardizem Begin Cardizem 60 mg 3 times a day Continue anticoagulation with Coumadin. Monitor INR Continue to monitor Further recommendations pending patient course Nurse practitioner note has been reviewed by physician. Signing provider agrees with the documented findings, assessment, and plan of care. Past Medical History Past Medical History: Atrial Fibrillation, Atrial Flutter, Asthma, Cancer, Heart Failure, CVA/TIA, Dementia, Diabetes Mellitus, GERD/Reflux, GI Bleed, Hyperlipidemia, Hypertension, Pneumonia, Sleep Apnea/CPAP/BIPAP Additional Past Medical History / Comment(s): Verified with [employer] papers r/t son Jose Rafael being unsure of history. Jose Rafael states he is also pt's DPOA. 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, post traumatic seizures, History of Any Multi-Drug Resistant Organisms: MRSA Date of last positivie culture/infection: 08/21/20 MDRO Source:: MRSA URINE Past Surgical History: Breast Surgery, Cardiac Valve Replacement, Heart Catheterization With Stent, Hysterectomy, Orthopedic Surgery, Pacemaker, Tonsillectomy Additional Past Surgical History / Comment(s): Peg tube, mechanical mitral valve 2000, polypectomy spinal cord/cyst removed, TEEs, CVNs, colonoscopies, bilateral cataract removal/lens implants, L rotator cuff repair, R femur fracture with IM hip/screw/nail, L breast lumpectomy, Past Anesthesia/Blood Transfusion Reactions: No Reported Reaction Date of Last Stent Placement:: 2006 Type of Cardiac Device: Permanent Pacemaker Device Placement Date:: 2009 Past Psychological History: Depression Additional Psychological History / Comment(s): Pt resides at [facility]. She is nonambulatory-get placed in wheelchair. She needs assist with all ADLs. Pt is NPO and has a peg tube. Smoking Status: Unknown if ever smoked Past Alcohol Use History: Unable to Obtain Additional Past Alcohol Use History / Comment(s): SMOKED OFF AND ON 1960 LESS THAN A YEAR THEN QUIT Past Drug Use History: Unable to Obtain - Past Family History Father Family Medical History: GI Bleed Additional Family Medical History / Comment(s): OF BLEEDING ULCER AT AGE 64 Mother Family Medical History: Cancer, CVA/TIA Additional Family Medical History / Comment(s): HX STROKES, COLON CANCER Medications and Allergies Home Medications Medication Instructions Recorded Confirmed Type Pravastatin Sodium [Pravachol] 40 mg PEG/G-TUBE HS@2100 05/20/17 09/15/20 History levETIRAcetam [Keppra Oral 100 mg PEG/G-TUBE DAILY@0800 09/27/17 09/15/20 History Solution] Aspirin 81 mg PEG/G-TUBE DAILY@0800 05/30/18 09/15/20 History Acetaminophen Oral Susp [Tylenol] 650 mg PEG/G-TUBE Q6H PRN 12/25/19 09/15/20 History Multivitamins, Thera Liquid 5 ml PEG/G-TUBE DAILY@1700 12/25/19 09/15/20 History [Theragran Liquid (formulary)] bisacodyL [Dulcolax] 10 mg RECTAL DAILY PRN 12/25/19 09/15/20 History Ipratropium-Albuterol Nebulize 3 ml INHALATION RT-Q6H PRN 06/11/20 09/15/20 History [Duoneb 0.5 mg-3 mg/3 ml Soln] Na Phos,M-B/Na Phos,Di-Ba [Fleet 133 ml RECTAL DAILY PRN 06/11/20 09/15/20 History Adult] Loratadine [Claritin] 10 mg PEG/G-TUBE DAILY@1700 tab 06/14/20 09/15/20 Rx Furosemide [Lasix] 40 mg PEG/G-TUBE BID@0800,1700 06/24/20 09/15/20 History INSULIN ASPART (NovoLOG) [NovoLOG See Protocol SQ ACHS 06/24/20 09/15/20 History (formulary)] Insulin Detemir (Levemir) [Levemir] 48 unit SQ HS@2130 06/24/20 09/15/20 History metFORMIN HCL [Glucophage] 500 mg PEG/G-TUBE BID@0800,1700 06/24/20 09/15/20 History Ferrous Sulfate Oral Elixir 300 mg PEG/G-TUBE DAILY@1700 ml 06/29/20 09/15/20 Rx [Feosol Liquid] Magnesium Hydroxide [Milk of 2,400 mg PEG/G-TUBE DAILY PRN ml 06/29/20 09/15/20 Rx Magnesia Concentrate] Nitroglycerin Sl Tabs [Nitrostat] 0.4 mg SUBLINGUAL Q5M PRN tab 06/29/20 09/15/20 Rx Diltiazem Oral [Cardizem*] 30 mg PEG/G-TUBE BID@0600,1700 07/15/20 09/15/20 History Metoprolol Tartrate [Lopressor] 100 mg PEG/G-TUBE 07/15/20 09/15/20 History TID@0600,1400,2200 Cholestyramine (with Sugar) 4 gm PEG/G-TUBE HS@2200 09/15/20 09/15/20 History [Questran Packet] Gabapentin [Neurontin] 100 mg PEG/G-TUBE 09/15/20 09/15/20 History TID@0600,1400,2100 Liquacel 30 ml PEG/G-TUBE BID@0800,1600 09/15/20 09/15/20 History Simethicone 40 mg PEG/G-TUBE BID@0800,1700 09/15/20 09/15/20 History Warfarin [Coumadin] 3 mg PEG/G-TUBE DAILY@1700 09/15/20 09/15/20 History Allergies Allergy/AdvReac Type Severity Reaction Status Date / Time ciprofloxacin [From Cipro] Allergy Rash/Hives Verified 09/15/20 23:24 ciprofloxacin HCl Allergy Rash/Hives Verified 09/15/20 23:24 [From Cipro] Quinolones Allergy Unknown Verified 09/15/20 23:24 Physical Exam Vitals: Vital Signs Temp Pulse Resp BP Pulse Ox 09/17/20 07:54 98.1 F 67 18 153/85 100 09/17/20 06:34 152/91 09/17/20 04:25 98 F 86 20 160/79 100 09/17/20 00:35 97.9 F 78 20 149/80 98 09/16/20 20:15 97.8 F 80 18 141/85 99 09/16/20 16:00 97.6 F 76 18 119/85 100 Intake and Output 09/16/20 09/17/20 09/17/20 22:59 06:59 14:59 Intake Total 125 Output Total 950 Balance -950 125 Intake: Intake, IV Titration 125 Amount Diltiazem 125 mg In 125 Sodium Chloride 0.9% 100 ml @ 5 MG/HR 5 mls/hr IV .Q24H [facility] Rx#:[id number] Oral 0 Output: Urine 950 Other: Voiding Method External Catheter External Catheter Weight 88.5 kg 88.5 kg Results 09/17/20 03:19 09/17/20 03:19 Cardiac Enzymes 09/17/20 Range/Units 03:19 AST 30 (14-36) U/L Coagulation 09/17/20 Range/Units 09:05 PT 12.1 H (9.0-12.0) sec CBC 09/17/20 Range/Units 03:19 WBC 11.6 H (3.8-10.6) k/uL RBC 4.74 (3.80-5.40) m/uL Hgb 12.6 (11.4-16.0) gm/dL Hct 41.1 (34.0-46.0) % Plt Count 254 (150-450) k/uL Comprehensive Metabolic Panel 09/17/20 Range/Units 03:19 Sodium 141 (137-145) mmol/L Potassium 4.2 (3.5-5.1) mmol/L Chloride 107 (98-107) mmol/L Carbon Dioxide 29 (22-30) mmol/L BUN 29 H (7-17) mg/dL Creatinine 0.43 L (0.52-1.04) mg/dL Glucose 224 H (74-99) mg/dL Calcium 9.0 (8.4-10.2) mg/dL AST 30 (14-36) U/L ALT 22 (4-34) U/L Alkaline Phosphatase 95 (38-126) U/L Total Protein 6.6 (6.3-8.2) g/dL Albumin 3.3 L (3.5-5.0) g/dL Current Medications Generic Name Dose Route Start Last Admin Trade Name Freq PRN Reason Stop Dose Admin Acetaminophen 650 mg 09/16/20 14:05 Acetaminophen Oral Susp (Peds) 3,840 Mg/120 Ml Bottle PEG/G-TUBE Q6H PRN Fever and/ or Pain Albuterol/Ipratropium 3 ml 09/16/20 14:05 Ipratropium-Albuterol 3 Ml Neb INHALATION RT-Q6H PRN Shortness Of Breath Aspirin 81 mg 09/17/20 08:00 09/17/20 08:40 Aspirin 81 Mg PEG/G-TUBE 81 mg DAILY@0800 JM Administration Bisacodyl 10 mg 09/16/20 14:05 Bisacodyl 10 Mg Supp RECTAL DAILY PRN Constipation Cholestyramine Resin 4 gm 09/16/20 22:00 09/16/20 21:39 Cholestyramine (With Sugar) 4 Gm Packet PEG/G-TUBE 4 gm HS@2200 JM Administration Diltiazem HCl 60 mg 09/17/20 11:00 Diltiazem Oral 60 Mg Tab PO TID JM Ferrous Sulfate 300 mg 09/16/20 17:00 09/16/20 17:19 Ferrous Sulfate Oral Elixir 300 Mg/5 Ml Cup PEG/G-TUBE 300 mg DAILY@1700 JM Administration Furosemide 40 mg 09/16/20 17:00 09/17/20 08:40 Furosemide 40 Mg Tab PEG/G-TUBE 40 mg BID@0800,1700 JM Administration Gabapentin 100 mg 09/16/20 21:00 09/17/20 06:25 Gabapentin 100 Mg Cap PEG/G-TUBE 100 mg TID@0600,1400,2100 JM Administration Heparin Sodium (Porcine) 5,000 unit 09/16/20 09:00 09/17/20 08:40 Heparin Sodium,Porcine/Pf 5,000 Unit/0.5 Ml Syringe SQ 5,000 unit Q12HR JM Administration Ceftriaxone Sodium 1 gm/ 50 mls @ 100 mls/hr 09/16/20 22:00 09/16/20 21:39 Sodium Chloride IVPB 100 mls/hr Q24H JM Administration Insulin Aspart 0 unit 09/16/20 22:30 09/17/20 06:37 Insulin Aspart (Novolog) 100 Unit/Ml Vial SQ 3 unit ACHS JM Administration Protocol Iron/Minerals/Multivitamins 15 ml 09/16/20 17:00 09/16/20 17:20 Multivitamins, Thera Liquid 237 Ml Bottle PEG/G-TUBE 15 ml DAILY@1700 JM Administration Levetiracetam 100 mg 09/17/20 08:00 09/17/20 08:41 Levetiracetam Oral Soln 500 Mg/5 Ml Cup PEG/G-TUBE 100 mg DAILY@0800 JM Administration Loratadine 10 mg 09/16/20 17:00 09/16/20 17:19 Loratadine 10 Mg Tab PEG/G-TUBE 10 mg DAILY@1700 JM Administration Magnesium Hydroxide 2,400 mg 09/16/20 14:05 Magnesium Hydroxide 2,400 Mg/10 Ml Cup PEG/G-TUBE DAILY PRN Constipation Metformin HCl 500 mg 09/16/20 17:00 09/17/20 08:40 Metformin 500 Mg Tab PEG/G-TUBE 500 mg BID@0800,1700 [facility] Administration Metoprolol Tartrate 100 mg 09/16/20 22:00 09/17/20 06:24 Metoprolol Tartrate 50 Mg Tab PEG/G-TUBE 100 mg TID@0600,1400,2200 [facility] Administration Miscellaneous Information 0 each 09/17/20 08:05 Warfarin Per Pharmacy MISCELLANE DIRECTED PRN PHARMACY DOSING WARFARIN Nitroglycerin 0.4 mg 09/16/20 14:05 Nitroglycerin Sl Tabs 0.4 Mg Tab SUBLINGUAL Q5M PRN Chest Pain Simethicone 40 mg 09/16/20 17:00 09/17/20 08:42 Simethicone 40 Mg/0.6 Ml Drops 2,000 Mg/30 Ml Bottle PEG/G-TUBE 40 mg BID@0800,1700 [facility] Administration Sodium Biphosphate/Sodium Phosphate 133 ml 09/16/20 14:05 Na Phos,M-B/Na Phos,Di-Ba 133 Ml Enema RECTAL DAILY PRN Constipation Warfarin Sodium 5 mg 09/17/20 18:00 Warfarin 5 Mg Tab PO 09/17/20 18:01 ONCE@1800 ONE Intake and Output 09/16/20 09/17/20 09/17/20 22:59 06:59 14:59 Intake Total 125 Output Total 950 Balance -950 125 Intake: Intake, IV Titration 125 Amount Diltiazem 125 mg In 125 Sodium Chloride 0.9% 100 ml @ 5 MG/HR 5 mls/hr IV .Q24H [facility] Rx#:[id number] Oral 0 Output: Urine 950 Other: Voiding Method External Catheter External Catheter Weight 88.5 kg 88.5 kg Patient Weight 09/18/20 06:59 Weight 88.5 kg 09/17/20 03:19 09/17/20 03:19
[2020-09-17] MEDS ORDERED: INSULIN REGULAR 100 UNIT/ML VIAL (IM/SQ) SQ ONE (15:37)
--- NOTE | 2020-09-17 15:39 | P.PN ---
Progress Note - Text Progress Note Date: 09/17/20 Presenting complaint: Decreased responsiveness Interval history: I am covering today, This patient of Dr. Luis A Gomez At the baseline patient is nonverbal but can make eye contact. We'll past few days patient has been declining she was diaphoretic pale. This is a history per EMS. Found to have a UTI given IV ceftriaxone. September 18: Laying in bed. Lethargic. Getting 2 feeding. Review of systems: Patient is nonverbal Active Medications Acetaminophen (Acetaminophen Oral Susp (Peds) 3,840 Mg/120 Ml Bottle) 650 mg PEG/G-TUBE Q6H PRN PRN Reason: Fever and/ or Pain Albuterol/Ipratropium (Ipratropium-Albuterol 3 Ml Neb) 3 ml INHALATION RT-Q6H PRN PRN Reason: Shortness Of Breath Aspirin (Aspirin 81 Mg) 81 mg PEG/G-TUBE DAILY@0800 [facility] Last Admin: 09/17/20 08:40 Dose: 81 mg Documented by: Bisacodyl (Bisacodyl 10 Mg Supp) 10 mg RECTAL DAILY PRN PRN Reason: Constipation Cholestyramine Resin (Cholestyramine (With Sugar) 4 Gm Packet) 4 gm PEG/G-TUBE HS@2200 [facility] Last Admin: 09/16/20 21:39 Dose: 4 gm Documented by: Diltiazem HCl (Diltiazem Oral 60 Mg Tab) 60 mg PO TID [facility] Last Admin: 09/17/20 11:00 Dose: 60 mg Documented by: Ferrous Sulfate (Ferrous Sulfate Oral Elixir 300 Mg/5 Ml Cup) 300 mg PEG/G-TUBE DAILY@1700 [facility] Last Admin: 09/16/20 17:19 Dose: 300 mg Documented by: Furosemide (Furosemide 40 Mg Tab) 40 mg PEG/G-TUBE BID@0800,1700 [facility] Last Admin: 09/17/20 08:40 Dose: 40 mg Documented by: Gabapentin (Gabapentin 100 Mg Cap) 100 mg PEG/G-TUBE TID@0600,1400,2100 [facility] Last Admin: 09/17/20 13:53 Dose: 100 mg Documented by: Heparin Sodium (Porcine) (Heparin Sodium,Porcine/Pf 5,000 Unit/0.5 Ml Syringe) 5,000 unit SQ Q12HR [facility] Last Admin: 09/17/20 08:40 Dose: 5,000 unit Documented by: Ceftriaxone Sodium 1 gm/ (Sodium Chloride) 50 mls @ 100 mls/hr IVPB Q24H [facility] Last Admin: 09/16/20 21:39 Dose: 100 mls/hr Documented by: Insulin Aspart (Insulin Aspart (Novolog) 100 Unit/Ml Vial) 0 unit SQ ACHS [facility]; Protocol Last Admin: 09/17/20 13:30 Dose: 2 unit Documented by: Iron/Minerals/Multivitamins (Multivitamins, Thera Liquid 237 Ml Bottle) 15 ml PEG/G-TUBE DAILY@1700 [facility] Last Admin: 09/16/20 17:20 Dose: 15 ml Documented by: Levetiracetam (Levetiracetam Oral Soln 500 Mg/5 Ml Cup) 100 mg PEG/G-TUBE DA JESSICA@0800 [facility] Last Admin: 09/17/20 08:41 Dose: 100 mg Documented by: Loratadine (Loratadine 10 Mg Tab) 10 mg PEG/G-TUBE DAILY@1700 [facility] Last Admin: 09/16/20 17:19 Dose: 10 mg Documented by: Magnesium Hydroxide (Magnesium Hydroxide 2,400 Mg/10 Ml Cup) 2,400 mg PEG/G- TUBE DAILY PRN PRN Reason: Constipation Metformin HCl (Metformin 500 Mg Tab) 500 mg PEG/G-TUBE BID@0800,1700 [facility] Last Admin: 09/17/20 08:40 Dose: 500 mg Documented by: Metoprolol Tartrate (Metoprolol Tartrate 50 Mg Tab) 100 mg PEG/G-TUBE TID@0600,1400,2200 [facility] Last Admin: 09/17/20 13:52 Dose: 100 mg Documented by: Miscellaneous Information (Warfarin Per Pharmacy) 0 each MISCELLANE DIRECTED PRN PRN Reason: PHARMACY DOSING WARFARIN Nitroglycerin (Nitroglycerin Sl Tabs 0.4 Mg Tab) 0.4 mg SUBLINGUAL Q5M PRN PRN Reason: Chest Pain Simethicone (Simethicone 40 Mg/0.6 Ml Drops 2,000 Mg/30 Ml Bottle) 40 mg PEG/G- TUBE BID@0800,1700 [facility] Last Admin: 09/17/20 08:42 Dose: 40 mg Documented by: Sodium Biphosphate/Sodium Phosphate (Na Phos,M-B/Na Phos,Di-Ba 133 Ml Enema) 133 ml RECTAL DAILY PRN PRN Reason: Constipation Warfarin Sodium (Warfarin 5 Mg Tab) 5 mg PO ONCE@1800 ONE Stop: 09/17/20 18:01 On examination: VITAL SIGNS: 98, 67, 20, 113/72, 100% on 2 L GENERAL APPEARANCE: BMI 31.5, laying in bed, lethargic HEENT: Normal external appearance of nose and ear. Oral cavity dry mucous membranes EYES: Pupils equal. Conjunctiva normal. NECK: JVD unable to be assessed. Mass not palpable. RESPIRATORY: Respiratory effort normal. Lungs decreased breath sounds. CARDIOVASCULAR: First and second sounds normal. No edema. ABDOMEN: Soft. Nontender. PEG tube in place. Liver and spleen not palpable. No tenderness. No mass palpable. Dependence. PSYCHIATRY: Unable to assess NEUROLOGICAL: Patient nonverbal. INVESTIGATIONS, reviewed in the clinical context: WBC 11.6 hemoglobin 12.6 platelets 254 potassium 4.2 creatinine 0.43 Accu-Cheks 227, 186 UA positive for leukoesterase WBC. Urine culture: Gram-negative bacilli COVID 19 [PCR]: Not detected Assessment and plan: -Acute metabolic encephalopathy/delirium from acute UTI Follow clinically -Acute UTI with cystitis from gram-negative bacilli, secondary to Gross catheter Gross catheter was changed. On ceftriaxone -PEG tube feeding Tolerating -Left hemiplegia, hemiparesis following nontraumatic subarachnoid hemorrhage Non-ambulatory -Chronic dysphagia. Patient nothing by mouth. Tolerating 2 feeding -Bladder and bowel incontinence Dependence and Gross catheter -Mechanical mitral valve replacement in 2000 On Coumadin -Coumadin monitoring -Coronary artery disease with stent Aspirin. Beta annette. -Chronic medical debility. Does get placed in a wheelchair -Paroxysmal atrial fibrillation, currently in sinus rhythm Cardizem, Lopressor -Diabetes mellitus type 2, chronically on insulin. Uncontrolled with hyperglycemia Liver 30 units subcu daily at bedtime. Follow Accu-Cheks. Glucophage. -Essential hypertension Cardizem, Lopressor Continue with tube feeding. Add Levemir 30 units subcu daily at bedtime. Other medications to continue. Await urine culture.
--- NOTE | 2020-09-17 16:12 | PN ---
PROGRESS NOTE DATE OF SERVICE: 09/17/2020 REASON FOR FOLLOWUP: Urinary tract infection. INTERVAL HISTORY: The patient is afebrile. The patient remains to be sleepy, lethargic, unable to provide any history. No vomiting, diarrhea or other changes reported by nursing staff. PHYSICAL EXAMINATION: Blood pressure 113/72 with a pulse of 57, temperature 98. She is 100% on 2 L nasal cannula. General description is an elderly female lying in bed in no distress. Respiratory system: Unlabored breathing and is clear to auscultation anteriorly. Heart S1, S2. Regular rate and rhythm. Abdomen soft, no tenderness. LABS: Hemoglobin is 12.6, white count is down to 11.6 with a BUN of 29, creatinine 0.43. Urine is currently pending. IMPRESSION/PLAN: Patient admitted to the hospital with mental status changes concerning for a urinary tract infection. Urine cultures currently pending. White count is trending down. To continue with Rocephin and monitor clinical course closely. MMODL / IJN: [id number] /
[2020-09-17 16:47] LABS: Glucose,Whole Blood 196 mg/dL (75-99)
[2020-09-17] MEDS: FERROUS SULFATE ORAL ELIXIR 300 MG/5 ML CUP PEG/G-TUBE SCH (17:27)
[2020-09-17] MEDS: LORATADINE 10 MG TAB PEG/G-TUBE SCH (17:27)
[2020-09-17] MEDS: MULTIVITAMINS, THERA LIQUID 237 ML BOTTLE PEG/G-TUBE SCH (17:27)
[2020-09-17] MEDS ORDERED: INSULIN ASPART (NovoLOG) 100 UNIT/ML VIAL SQ SCH (17:30)
[2020-09-17] MEDS ORDERED: WARFARIN 5 MG TAB PO ONE (18:00)
[2020-09-17 20:14] LABS: Glucose,Whole Blood 186 mg/dL (75-99)
[2020-09-17] MEDS: INSULIN DETEMIR (LEVEMIR) 100 UNIT/ML SYR SQ SCH (21:59)
[2020-09-17] MEDS: CHOLESTYRAMINE (WITH SUGAR) 4 GM PACKET PEG/G-TUBE SCH (22:00)
--- NOTE | 2020-09-17 23:52 | CT ---
EXAMINATION TYPE: CT abdomen pelvis wo con DATE OF EXAM: 09/17/2020 COMPARISON: 06/11/2020 HISTORY: Abdomen extension CT DLP: 1086.4 mGycm Automated exposure control for dose reduction was used. There is some atelectasis and interstitial infiltrate at the lung bases. Heart is enlarged. There is no pericardial effusion. There is cardiac surgery. Liver and spleen appear intact. The bile ducts are not dilated. There is no evidence of pancreatic ma ss. There are small calcifications in the gallbladder. The stomach appears intact. There is gastrosto my tube noted that appears to be in good position. There is no adrenal mass. Kidneys have normal size. There is no hydronephrosis. There is 7 mm calculu s in the interpolar left kidney. Ureters are not dilated. There is no retroperitoneal adenopathy. The bladder distends smoothly. There is intramedullary elli and transverse screw fixing the proximal righ t femur. The bony pelvis is intact. There is no free fluid in the pelvis. There is no mesenteric gordon a. There is no ascites or free air. There is no evidence of a bowel obstruction. Appendix is not seen . The lumbar vertebra have normal alignment. There is no compression fracture. IMPRESSION: Small calcified gallstones. No dilated ducts. There is some minimal infiltrate and atelectasis at the lung bases which is similar to old exam. Moderate cardiomegaly. Nonobstructing left renal calculus. No acute abnormality within the abdomen pelvis.
[2020-09-18] MEDS: METOPROLOL TARTRATE 50 MG TAB PEG/G-TUBE SCH ×3 (06:09→17:58)
[2020-09-18] MEDS: GABAPENTIN 100 MG CAP PEG/G-TUBE SCH ×3 (06:09→20:52)
[2020-09-18 06:18] LABS: Glucose,Whole Blood 203 mg/dL (75-99)
[2020-09-18] MEDS: INSULIN ASPART (NovoLOG) 100 UNIT/ML VIAL SQ SCH ×4 (06:28→20:52)
[2020-09-18] MEDS: metFORMIN 500 MG TAB PEG/G-TUBE SCH ×2 (08:11→17:58)
[2020-09-18] MEDS: SIMETHICONE 40 MG/0.6 ML DROPS 2,000 MG/30 ML BOTTLE PEG/G-TUBE SCH ×2 (08:11→18:06)
[2020-09-18] MEDS: FUROSEMIDE 40 MG TAB PEG/G-TUBE SCH ×2 (08:11→17:58)
[2020-09-18] MEDS: levETIRAcetam ORAL SOLN 500 MG/5 ML CUP PEG/G-TUBE SCH (08:11)
[2020-09-18] MEDS: ASPIRIN 81 MG PEG/G-TUBE SCH (08:11)
[2020-09-18] MEDS: HEPARIN SODIUM,PORCINE/PF 5,000 UNIT/0.5 ML SYRINGE SQ SCH (08:12)
[2020-09-18] MEDS: DILTIAZEM ORAL 60 MG TAB PO SCH ×3 (08:12→21:53)
[2020-09-18 09:02] LABS: INR 1.4 (<1.2); Prothrombin Time 13.8 sec (9.0-12.0)
[2020-09-18 11:30] LABS: Glucose,Whole Blood 167 mg/dL (75-99)
--- NOTE | 2020-09-18 12:17 | HP ---
HISTORY AND PHYSICAL HISTORY OF PRESENT ILLNESS: 75-year-old white female was admitted with altered mental status, respiratory distress and severe UTI with sepsis, admitted for extreme change in mentation, worsening respiratory distress, elevated respiratory rate over 30. MEDICATIONS: Home medicines include Pravachol 40 daily, Keppra 100 daily, aspirin 81 daily, multivitamin daily, Dulcolax suppository daily, DuoNeb updrafts t.i.d., furosemide 40 mg daily. Accu-Chek protocol, Levemir 40 daily, metformin 500 b.i.d., Cardizem 30 b.i.d., Lopressor 100 mg t.i.d., Questran 4 mg daily, Neurontin 100 mg daily, Coumadin 3 mg PEG tube daily. PAST MEDICAL HISTORY: Atrial fibrillation, flutter, prior CVA, esophageal dysphagia, a PEG tube for all feeding and medications, asthma, history of cancer of the breast, CVA, TIA, dementia, diabetes mellitus, GERD, GI bleed, dyslipidemia, hypertension, sleep apnea, prior CVAs as mentioned. SURGICAL HISTORY: Breast surgery, cardiac valve replacement, heart catheterization, hysterectomy, orthopedic surgery, pacemaker, tonsillectomy, mechanical mitral valve on Coumadin treatment, PEG tube, polypectomy, TEEs, bilateral cataract removal, left rotator cuff repair, left breast lumpectomy, permanent pacemaker. REVIEW OF SYSTEMS: She cannot really give a good review of systems, but she answers one or two questions at a time. PHYSICAL EXAMINATION: Temperature 98.2, pulse is 150 to 156, respiratory 20-30, blood pressure is 140 is 160s over 80s to 95-100. CARDIOVASCULAR: S1, S2. Tachycardic, irregularly irregular rhythm. LUNGS are decreased breath sounds at the bases. ABDOMEN is distended with a PEG tube in place. EXTREMITIES 2+ edema. NEUROLOGIC: Alert, oriented x0. PSYCH: Answers 1-2 questions occasionally. White count 15.2, hemoglobin 13.7. UA shows 75 red cells, 182 white cells, moderate white cell count, BUN 47, creatinine 0.5, glucose 261. Lactic acid 2.4. ASSESSMENT: 1. Lactic acidosis. 2. Urinary tract infection with sepsis. 3. Acute hypoxemic respiratory distress secondary to chronic obstructive pulmonary disease. 4. Congestive heart failure. 5. Prior history cancer. 6. Diabetes mellitus. PROGNOSIS: Extremely guarded. MMODL / IJN: [id number] /
--- NOTE | 2020-09-18 12:42 | P.CNPUL ---
History of Present Illness Consult date: 09/18/20 Reason for consult: dyspnea Chief complaint: Altered mental status History of present illness: This is a 75-year-old female with the history of multiple strokes predominantly bedbound nonverbal communicated however with facial response seen and noted to have a changes in mental status S to [facility] advised to be evaluated further emergency department sent emergency department, on arrival was she was noted to be pale and diaphoretic found to have urinary tract infection was given IV Rocephin Department with rehydration, patient was in A. fib with RVR was started on Cardizem drip at 5 mg an hour, patient currently on 2 L oxygen opens eyes however lethargic, and review of the data revealed that prior history significant for paroxysmal atrial fibrillation hypertension hypertensive cardiovascular disease, status post to the mechanical valve further rheumatic mitral stenosis, sick sinus syndrome status post pacemaker, stroke with left-sided hemiparesis, dysphagia status post PEG tube placement, chronic hypoxic respiratory failure with history of trach in the past, Significant laboratory data EKG revealed A. fib with RVR, chest x-ray pulmonary fibrosis and interstitial edema, labs noted to have a white cell count is 11,000, BUN/creatinine 29/0.43, patient is on Coumadin med a prolonged pro- estrogen Lasix Review of Systems ROS unobtainable: due to mental status Past Medical History Past Medical History: Atrial Fibrillation, Atrial Flutter, Asthma, Cancer, Heart Failure, CVA/TIA, Dementia, Diabetes Mellitus, GERD/Reflux, GI Bleed, Hyperlipidemia, Hypertension, Pneumonia, Sleep Apnea/CPAP/BIPAP Additional Past Medical History / Comment(s): Verified with [facility] papers r/t son Jose Rafael being unsure of history. Jose Rafael states he is also pt's DPOA. 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, post traumatic seizures, History of Any Multi-Drug Resistant Organisms: MRSA Date of last positivie culture/infection: 08/21/20 MDRO Source:: MRSA URINE Past Surgical History: Breast Surgery, Cardiac Valve Replacement, Heart Catheterization With Stent, Hysterectomy, Orthopedic Surgery, Pacemaker, Tonsillectomy Additional Past Surgical History / Comment(s): Peg tube, mechanical mitral valve 2000, polypectomy spinal cord/cyst removed, TEEs, CVNs, colonoscopies, bilateral cataract removal/lens implants, L rotator cuff repair, R femur fracture with IM hip/screw/nail, L breast lumpectomy, Past Anesthesia/Blood Transfusion Reactions: No Reported Reaction Date of Last Stent Placement:: 2006 Type of Cardiac Device: Permanent Pacemaker Device Placement Date:: 2009 Past Psychological History: Depression Additional Psychological History / Comment(s): Pt resides at [facility]. She is nonambulatory-get placed in wheelchair. She needs assist with all ADLs. Pt is NPO and has a peg tube. Smoking Status: Unknown if ever smoked Past Alcohol Use History: Unable to Obtain Additional Past Alcohol Use History / Comment(s): SMOKED OFF AND ON 1960 LESS THAN A YEAR THEN QUIT Past Drug Use History: Unable to Obtain - Past Family History Father Family Medical History: GI Bleed Additional Family Medical History / Comment(s): OF BLEEDING ULCER AT AGE 64 Mother Family Medical History: Cancer, CVA/TIA Additional Family Medical History / Comment(s): HX STROKES, COLON CANCER Medications and Allergies Home Medications Medication Instructions Recorded Confirmed Type Pravastatin Sodium [Pravachol] 40 mg PEG/G-TUBE HS@2100 05/20/17 09/15/20 History levETIRAcetam [Keppra Oral 100 mg PEG/G-TUBE DAILY@0800 09/27/17 09/15/20 History Solution] Aspirin 81 mg PEG/G-TUBE DAILY@0800 05/30/18 09/15/20 History Acetaminophen Oral Susp [Tylenol] 650 mg PEG/G-TUBE Q6H PRN 12/25/19 09/15/20 History Multivitamins, Thera Liquid 5 ml PEG/G-TUBE DAILY@1700 12/25/19 09/15/20 History [Theragran Liquid (formulary)] bisacodyL [Dulcolax] 10 mg RECTAL DAILY PRN 12/25/19 09/15/20 History Ipratropium-Albuterol Nebulize 3 ml INHALATION RT-Q6H PRN 06/11/20 09/15/20 History [Duoneb 0.5 mg-3 mg/3 ml Soln] Na Phos,M-B/Na Phos,Di-Ba [Fleet 133 ml RECTAL DAILY PRN 06/11/20 09/15/20 H istory Adult] Loratadine [Claritin] 10 mg PEG/G-TUBE DAILY@1700 tab 06/14/20 09/15/20 Rx Furosemide [Lasix] 40 mg PEG/G-TUBE BID@0800,1700 06/24/20 09/15/20 History INSULIN ASPART (NovoLOG) [NovoLOG See Protocol SQ ACHS 06/24/20 09/15/20 History (formulary)] Insulin Detemir (Levemir) [Levemir] 48 unit SQ HS@2130 06/24/20 09/15/20 History metFORMIN HCL [Glucophage] 500 mg PEG/G-TUBE BID@0800,1700 06/24/20 09/15/20 History Ferrous Sulfate Oral Elixir 300 mg PEG/G-TUBE DAILY@1700 ml 06/29/20 09/15/20 Rx [Feosol Liquid] Magnesium Hydroxide [Milk of 2,400 mg PEG/G-TUBE DAILY PRN ml 06/29/20 09/15/20 Rx Magnesia Concentrate] Nitroglycerin Sl Tabs [Nitrostat] 0.4 mg SUBLINGUAL Q5M PRN tab 06/29/20 09/15/20 Rx Diltiazem Oral [Cardizem*] 30 mg PEG/G-TUBE BID@0600,1700 07/15/20 09/15/20 History Metoprolol Tartrate [Lopressor] 100 mg PEG/G-TUBE 07/15/20 09/15/20 History TID@0600,1400,2200 Cholestyramine (with Sugar) 4 gm PEG/G-TUBE HS@2200 09/15/20 09/15/20 History [Questran Packet] Gabapentin [Neurontin] 100 mg PEG/G-TUBE 09/15/20 09/15/20 History TID@0600,1400,2100 Liquacel 30 ml PEG/G-TUBE BID@0800,1600 /07/0109/15/20 History Simethicone 40 mg PEG/G-TUBE BID@0800,1700 09/15/20 09/15/20 History Warfarin [Coumadin] 3 mg PEG/G-TUBE DAILY@1700 09/15/20 09/15/20 History Allergies Allergy/AdvReac Type Severity Reaction Status Date / Time ciprofloxacin [From Cipro] Allergy Rash/Hives Verified 09/15/20 23:24 ciprofloxacin HCl Allergy Rash/Hives Verified 09/15/20 23:24 [From Cipro] Quinolones Allergy Unknown Verified 09/15/20 23:24 Physical Exam Vitals: Vital Signs Temp Pulse Resp BP Pulse Ox 09/18/20 08:00 98.6 F 65 20 139/76 95 09/18/20 03:00 98.6 F 64 18 136/85 100 09/17/20 23:00 98.3 F 76 18 139/79 100 09/17/20 20:10 97.8 F 66 20 136/75 100 09/17/20 16:00 98.5 F 65 20 132/77 100 Intake and Output 09/17/20 09/18/20 09/18/20 22:59 06:59 14:59 Other: Voiding Method External Catheter External Catheter # Voids 1 Weight 89 kg - Constitutional General appearance: average body habitus, disheveled - EENT Eyes: PERRLA Ears: bilateral: normal - Neck Neck: normal ROM Carotids: bilateral: upstroke normal Thyroid: bilateral: normal size - Respiratory Respiratory: bilateral: diminished - Cardiovascular Rhythm: irregularly irregular Heart sounds: normal: S1, S2 - Gastrointestinal General gastrointestinal: normal bowel sounds - Integumentary Integumentary: normal turgor - Musculoskeletal Musculoskeletal: generalized weakness - Psychiatric Nonverbal and noncommunicative currently Results - Laboratory Findings CBC and BMP: 09/17/20 03:19 09/17/20 03:19 PT/INR, D-dimer PT 13.8 sec (9.0-12.0) H 09/18/20 08:15 INR 1.4 (<1.2) H 09/18/20 08:15 Abnormal lab findings: Abnormal Labs 09/15/20 09/15/20 09/15/20 22:29 22:29 22:29 WBC 15.2 H MCHC 30.5 L RDW 18.6 H Neutrophils # 11.7 H PT INR APTT 21.9 L BUN Creatinine Glucose POC Glucose (mg/dL) Plasma Lactic Acid Buddy Alkaline Phosphatase Troponin I Albumin Urine Appearance Cloudy H Urine Protein 1+ H Urine Blood Large H Ur Leukocyte Esterase Large H Urine RBC 75 H Urine WBC >182 H Urine WBC Clumps Moderate H Urine Bacteria Rare H 09/15/20 09/15/20 09/15/20 22:29 22:29 22:29 WBC MCHC RDW Neutrophils # PT INR APTT BUN 47 H Creatinine 0.50 L Glucose 261 H POC Glucose (mg/dL) Plasma Lactic Acid Buddy 2.4 H* Alkaline Phosphatase 139 H Troponin I 0.055 H* Albumin Urine Appearance Urine Protein Urine Blood Ur Leukocyte Esterase Urine RBC Urine WBC Urine WBC Clumps Urine Bacteria 09/16/20 09/16/20 09/16/20 11:54 16:53 20:26 WBC MCHC RDW Neutrophils # PT INR APTT BUN Creatinine Glucose POC Glucose (mg/dL) 270 H 284 H 295 H Plasma Lactic Acid Buddy Alkaline Phosphatase Troponin I Albumin Urine Appearance Urine Protein Urine Blood Ur Leukocyte Esterase Urine RBC Urine WBC Urine WBC Clumps Urine Bacteria 09/17/20 09/17/20 09/17/20 03:19 03:19 06:30 WBC 11.6 H MCHC 30.7 L RDW 18.2 H Neutrophils # 8.4 H PT INR APTT BUN 29 H Creatinine 0.43 L Glucose 224 H POC Glucose (mg/dL) 227 H Plasma Lactic Acid Buddy Alkaline Phosphatase Troponin I Albumin 3.3 L Urine Appearance Urine Protein Urine Blood Ur Leukocyte Esterase Urine RBC Urine WBC Urine WBC Clumps Urine Bacteria 09/17/20 09/17/20 09/17/20 09:05 11:34 16:45 WBC MCHC RDW Neutrophils # PT 12.1 H INR 1.2 H APTT BUN Creatinine Glucose POC Glucose (mg/dL) 186 H 196 H Plasma Lactic Acid Buddy Alkaline Phosphatase Troponin I Albumin Urine Appearance Urine Protein Urine Blood Ur Leukocyte Esterase Urine RBC Urine WBC Urine WBC Clumps Urine Bacteria 09/17/20 09/18/20 09/18/20 20:12 06:17 08:15 WBC MCHC RDW Neutrophils # PT 13.8 H INR 1.4 H APTT BUN Creatinine Glucose POC Glucose (mg/dL) 186 H 203 H Plasma Lactic Acid Buddy Alkaline Phosphatase Troponin I Albumin Urine Appearance Urine Protein Urine Blood Ur Leukocyte Esterase Urine RBC Urine WBC Urine WBC Clumps Urine Bacteria 09/18/20 11:25 WBC MCHC RDW Neutrophils # PT INR APTT BUN Creatinine Glucose POC Glucose (mg/dL) 167 H Plasma Lactic Acid Buddy Alkaline Phosphatase Troponin I Albumin Urine Appearance Urine Protein Urine Blood Ur Leukocyte Esterase Urine RBC Urine WBC Urine WBC Clumps Urine Bacteria - Diagnostic Findings Chest x-ray: report reviewed, image reviewed (Finding as noted above) Assessment and Plan Assessment: Sepsis Urinary tract infection due to Proteus multi drug-resistant, sensitive to Rocephin Altered mental status due to sepsis Paroxysmal atrial fibrillation with RVR related to above Hypertension hypertensive cardiovascular disease Rheumatic mitral stenosis status post mechanical valve 2000 CVA with left-sided paralysis High risk for aspiration and aspiration related complication status post PEG tube Plan: Continue gentle hydration Continue broad-spectrum antibiotics IV Cardizem changed to by mouth Continue Coumadin Titrated and DC oxygen as tolerated keep saturation over 92% Time with Patient: Greater than 30
--- NOTE | 2020-09-18 14:02 | US ---
EXAMINATION TYPE: US venous doppler duplex UE RT DATE OF EXAM: 09/18/2020 COMPARISON: NONE CLINICAL HISTORY: r/o DVT. Obese patient who slept during exam has swollen right arm SIDE PERFORMED: Right Right Arm: Negative for DVT IMPRESSION: 1. Right upper extremity ultrasound negative for deep venous thrombosis.
--- NOTE | 2020-09-18 14:43 | P.PN ---
Subjective Progress Note Date: 09/18/20 HISTORY OF PRESENT ILLNESS: This is a 45-year-old female with a past medical history significant for paroxysmal atrial fibrillation, hypertension, rheumatic mitral stenosis status post mechanical valve replacement in 2000, sick sinus syndrome with pacemaker insertion, stroke with left-sided paralysis, dysphagia with PEG tube placement, chronic respiratory failure status post trach. Patient has not been seen in the office since 2018.We have been asked to see the patient in consultation for A. fib with RVR. Patient examined at the bedside. Patient is lethargic and unable to provide any history. Patient was found to be in A. fib with RVR. She was started on a Cardizem drip which is infusing at 5 mg an hour. Upon reviewing telemetry, the patients heart rate is currently controlled. EKG reveals A. fib with RVR Chest xray mild pulmonary fibrosis. No obvious heart failure. Laboratory data: WBC 11.6. Hemoglobin 12.6. Platelet count 254. INR 1.2. Sodium 141. Potassium 4.2. BUN 29. Creatinine 0.43. Current home cardiac medications include Coumadin 3 mg daily, metoprolol tartrate 100 mg 3 times a day, Lasix 40 mg twice a day, pravastatin 40 mg daily, Cardizem 30 mg twice a day, aspirin 81 mg daily Most recent echocardiogram obtained in June 2020 revealed ejection fraction 55- 60%. Mechanical mitral valve noted. Mild tricuspid regurgitation. Mild pulmonary hypertension. 09/18/2020 Patient examined this morning at the bedside. Patient's Cardizem drip has been discontinued. She remains in atrial fibrillation with controlled ventricular rates. Vital signs are stable. PHYSICAL EXAM: VITAL SIGNS: Reviewed. GENERAL: Well-developed in no acute distress. HEENT: Head is normocephalic. Pupils are equal, round. Sclerae anicteric. Mucous membranes of the mouth are moist. Neck supple. No JVD or thyromegaly LUNGS: Respirations even and unlabored. Lungs essentially clear to auscultation bilaterally. HEART: Irregular rate and rhythm. S1 and S2 heard. ABDOMEN: Soft. Nondistended. Nontender. EXTREMITIES: No clubbing or cyanosis. Peripheral pulses intact. No lower extremity edema ASSESSMENT: Recurrent urinary tract infection Altered mental status Paroxysmal atrial fibrillation with RVR Hypertension Rheumatic mitral stenosis status post mechanical valve placement 2000 Sick sinus syndrome with history of pacemaker insertion History of CVA with left-sided paralysis History of dysphagia with PEG tube placement PLAN: No need to repeat echocardiogram as this was performed in June 2020 Continue current cardiac medications Continue anticoagulation with Coumadin We will sign off. Please reconsult if needed. Nurse practitioner note has been reviewed by physician. Signing provider agrees with the documented findings, assessment, and plan of care. Objective - Vital Signs Vital signs: Vital Signs Temp 97.6 F 09/18/20 12:00 Pulse 68 09/18/20 12:00 Resp 20 09/18/20 12:00 BP 97/59 09/18/20 12:00 Pulse Ox 100 09/18/20 12:00 Intake & Output 09/17/20 09/18/20 09/18/20 18:59 06:59 18:59 Output Total 1200 Balance -1200 Weight 88.5 kg 89 kg Output: Urine 1200 Other: Voiding Method External Catheter # Voids 1 # Bowel Movements 0 - Labs CBC & Chem 7: 09/17/20 03:19 09/17/20 03:19 Labs: Abnormal Lab Results - Last 24 Hours (Table) 09/17/20 09/17/20 09/18/20 Range/Units 16:45 20:12 06:17 PT (9.0-12.0) sec INR (<1.2) POC Glucose (mg/dL) 196 H 186 H 203 H (75-99) mg/dL 09/18/20 09/18/20 Range/Units 08:15 11:25 PT 13.8 H (9.0-12.0) sec INR 1.4 H (<1.2) POC Glucose (mg/dL) 167 H (75-99) mg/dL Microbiology - Last 24 Hours (Table) 09/15/20 22:29 Urine Culture - Final Urine,Voided Proteus mirabilis 09/15/20 22:29 Blood Culture - Preliminary Blood No Growth after 48 hours 09/15/20 22:29 Blood Culture - Preliminary Blood No Growth after 48 hours
--- NOTE | 2020-09-18 14:46 | P.PN ---
Progress Note - Text Progress Note Date: 09/18/20 Presenting complaint: Decreased responsiveness Interval history: I am rounding today, for Dr. Luis A Gomez At the baseline patient is nonverbal but can make eye contact. We'll past few days patient has been declining she was diaphoretic pale. This is a history per EMS. Found to have a UTI given IV ceftriaxone. September 17: Laying in bed. Lethargic. Getting 2 feeding. September 18: Laying in bed. She did communicate with the nurse earlier. Tired. Review of systems: Tired Active Medications Acetaminophen (Acetaminophen Oral Susp (Peds) 3,840 Mg/120 Ml Bottle) 650 mg PEG/G-TUBE Q6H PRN PRN Reason: Fever and/ or Pain Last Admin: 09/18/20 08:13 Dose: 650 mg Documented by: Albuterol/Ipratropium (Ipratropium-Albuterol 3 Ml Neb) 3 ml INHALATION RT-Q6H PRN PRN Reason: Shortness Of Breath Aspirin (Aspirin 81 Mg) 81 mg PEG/G-TUBE DAILY@0800 [facility] Last Admin: 09/18/20 08:11 Dose: 81 mg Documented by: Bisacodyl (Bisacodyl 10 Mg Supp) 10 mg RECTAL DAILY PRN PRN Reason: Constipation Cholestyramine Resin (Cholestyramine (With Sugar) 4 Gm Packet) 4 gm PEG/G-TUBE HS@2200 [facility] Last Admin: 09/17/20 22:00 Dose: 4 gm Documented by: Diltiazem HCl (Diltiazem Oral 60 Mg Tab) 60 mg PO TID [facility] Last Admin: 09/18/20 08:12 Dose: 60 mg Documented by: Ferrous Sulfate (Ferrous Sulfate Oral Elixir 300 Mg/5 Ml Cup) 300 mg PEG/G-TUBE DAILY@1700 [facility] Last Admin: 09/17/20 17:27 Dose: 300 mg Documented by: Furosemide (Furosemide 40 Mg Tab) 40 mg PEG/G-TUBE BID@0800,1700 [facility] Last Admin: 09/18/20 08:11 Dose: 40 mg Documented by: Gabapentin (Gabapentin 100 Mg Cap) 100 mg PEG/G-TUBE TID@0600,1400,2100 [facility] Last Admin: 09/18/20 06:09 Dose: 100 mg Documented by: Heparin Sodium (Porcine) (Heparin Sodium,Porcine/Pf 5,000 Unit/0.5 Ml Syringe) 5,000 unit SQ Q12HR [facility] Last Admin: 09/18/20 08:12 Dose: 5,000 unit Documented by: Ceftriaxone Sodium 1 gm/ (Sodium Chloride) 50 mls @ 100 mls/hr IVPB Q24H [facility] Last Admin: 09/17/20 22:00 Dose: 100 mls/hr Documented by: Insulin Aspart (Insulin Aspart (Novolog) 100 Unit/Ml Vial) 0 unit SQ ACHS [facility]; Protocol Last Admin: 09/18/20 12:38 Dose: 2 unit Documented by: Insulin Detemir (Insulin Detemir (Levemir) 100 Unit/Ml Syr) 30 unit SQ HS [facility] Last Admin: 09/17/20 21:59 Dose: 30 unit Documented by: Iron/Minerals/Multivitamins (Multivitamins, Thera Liquid 237 Ml Bottle) 15 ml PEG/G-TUBE DAILY@1700 [facility] Last Admin: 09/17/20 17:27 Dose: 15 ml Documented by: Levetiracetam (Levetiracetam Oral Soln 500 Mg/5 Ml Cup) 100 mg PEG/G-TUBE DAILY@0800 [facility] Last Admin: 09/18/20 08:11 Dose: 100 mg Documented by: Loratadine (Loratadine 10 Mg Tab) 10 mg PEG/G-TUBE DAILY@1700 [facility] Last Admin: 09/17/20 17:27 Dose: 10 mg Documented by: Magnesium Hydroxide (Magnesium Hydroxide 2,400 Mg/10 Ml Cup) 2,400 mg PEG/G- TUBE DAILY PRN PRN Reason: Constipation Metformin HCl (Metformin 500 Mg Tab) 500 mg PEG/G-TUBE BID@0800,1700 [facility] Last Admin: 09/18/20 08:11 Dose: 500 mg Documented by: Metoprolol Tartrate (Metoprolol Tartrate 50 Mg Tab) 100 mg PEG/G-TUBE TID@0600,1400,2200 [facility] Last Admin: 09/18/20 13:49 Dose: Not Given Documented by: Miscellaneous Information (Warfarin Per Pharmacy) 0 each MISCELLANE DIRECTED PRN PRN Reason: PHARMACY DOSING WARFARIN Nitroglycerin (Nitroglycerin Sl Tabs 0.4 Mg Tab) 0.4 mg SUBLINGUAL Q5M PRN PRN Reason: Chest Pain Simethicone (Simethicone 40 Mg/0.6 Ml Drops 2,000 Mg/30 Ml Bottle) 40 mg PEG/G- TUBE BID@0800,1700 [facility] Last Admin: 09/18/20 08:11 Dose: 40 mg Documented by: Sodium Biphosphate/Sodium Phosphate (Na Phos,M-B/Na Phos,Di-Ba 133 Ml Enema) 133 ml RECTAL DAILY PRN PRN Reason: Constipation Warfarin Sodium (Warfarin 5 Mg Tab) 5 mg PO ONCE@1800 ONE Stop: 09/18/20 18:01 On examination: VITAL SIGNS: 97.6,, 68, 20, 97/59, 100% on 2 L GENERAL APPEARANCE:, laying in bed, lethargic HEENT: Normal external appearance of nose and ear. Oral cavity dry mucous membranes EYES: Pupils equal. Conjunctiva normal. NECK: JVD unable to be assessed. Mass not palpable. RESPIRATORY: Respiratory effort normal. Lungs decreased breath sounds. CARDIOVASCULAR: First and second sounds normal. No edema. ABDOMEN: Soft. Nontender. PEG tube in place. Liver and spleen not palpable. No tenderness. No mass palpable. Dependence. PSYCHIATRY: Unable to assess INVESTIGATIONS, reviewed in the clinical context: September 18: INR 1.4 WBC 11.6 hemoglobin 12.6 platelets 254 potassium 4.2 creatinine 0.43 Accu-Cheks 227, 186 UA positive for leukoesterase WBC. Urine culture: Gram-negative bacilli COVID 19 [PCR]: Not detected Assessment and plan: -Acute metabolic encephalopathy/delirium from acute UTI: Improving Follow clinically -Acute UTI with cystitis from Proteus mirabilis secondary to Gross catheter Gross catheter was changed. On ceftriaxone -PEG tube feeding Tolerating -Left hemiplegia, hemiparesis following nontraumatic subarachnoid hemorrhage Non-ambulatory -Chronic dysphagia. Patient nothing by mouth. Tolerating 2 feeding -Bladder and bowel incontinence Dependence and Gross catheter -Mechanical mitral valve replacement in 2000 On Coumadin -Coumadin monitoring INR is being followed by pharmacy. INR subtherapeutic. We'll place on Lovenox for bridging. -Coronary artery disease with stent Aspirin. Beta annette. -Chronic medical debility. Does get placed in a wheelchair -Paroxysmal atrial fibrillation, currently in sinus rhythm Cardizem, Lopressor -Diabetes mellitus type 2, chronically on insulin. Uncontrolled with hyperglycemia Levemir 30 units subcu daily at bedtime. Follow Accu-Cheks. Glucophage. -Essential hypertension Cardizem, Lopressor Continue with tube feeding. IV ceftriaxone per ID. Add Lovenox 80 mg subcu twice a day for Coumadin bridging..
[2020-09-18 17:35] LABS: Glucose,Whole Blood 200 mg/dL (75-99)
[2020-09-18] MEDS: LORATADINE 10 MG TAB PEG/G-TUBE SCH (17:57)
[2020-09-18] MEDS: CHOLESTYRAMINE (WITH SUGAR) 4 GM PACKET PEG/G-TUBE SCH (17:57)
[2020-09-18] MEDS ORDERED: WARFARIN 5 MG TAB PO ONE (18:00)
[2020-09-18] MEDS: MULTIVITAMINS, THERA LIQUID 237 ML BOTTLE PEG/G-TUBE SCH (18:03)
--- NOTE | 2020-09-18 18:03 | PN ---
PROGRESS NOTE DATE OF SERVICE: 09/18/2020 REASON FOR FOLLOWUP: Urinary tract infection. INTERVAL HISTORY: Patient is afebrile. The patient is sleepy, lethargic and is unable to provide any history. No vomiting or diarrhea or other changes reported by nursing staff. PHYSICAL EXAMINATION: Blood pressure 97/59, pulse of 68, temperature 97.6. She is 100% on 2 L nasal cannula. General description is an elderly female lying in bed in no distress. Respiratory system: Unlabored breathing, clear to auscultation anteriorly. Heart S1, S2. Regular rate and rhythm. Abdomen: Soft, no tenderness. LABS: INR is 1.4. Urine did grow Proteus mirabilis sensitive to ceftriaxone. DIAGNOSTIC IMPRESSION AND PLAN: Patient admitted to the hospital with mental status changes, concerning for urinary tract infection, catheter associated. Urine with Proteus. Rocephin to continue. Transition to a short course of oral Ceftin on discharge. Continue supportive care. MMODL / IJN: [id number] /
[2020-09-18] MEDS: FERROUS SULFATE ORAL ELIXIR 300 MG/5 ML CUP PEG/G-TUBE SCH (18:11)
[2020-09-18 20:34] LABS: Glucose,Whole Blood 185 mg/dL (75-99)
[2020-09-18] MEDS: ENOXAPARIN 80 MG/0.8 ML SYRINGE SQ SCH (20:51)
[2020-09-18] MEDS: INSULIN DETEMIR (LEVEMIR) 100 UNIT/ML SYR SQ SCH (21:53)
[2020-09-19] MEDS: METOPROLOL TARTRATE 50 MG TAB PEG/G-TUBE SCH ×3 (05:15→21:23)
[2020-09-19] MEDS: GABAPENTIN 100 MG CAP PEG/G-TUBE SCH ×3 (05:15→20:34)
[2020-09-19 07:08] LABS: Glucose,Whole Blood 217 mg/dL (75-99)
[2020-09-19 07:33] LABS: INR 1.7 (<1.2); Prothrombin Time 16.6 sec (9.0-12.0)
[2020-09-19] MEDS: levETIRAcetam ORAL SOLN 500 MG/5 ML CUP PEG/G-TUBE SCH (08:20)
[2020-09-19] MEDS: INSULIN ASPART (NovoLOG) 100 UNIT/ML VIAL SQ SCH ×4 (08:20→20:34)
[2020-09-19] MEDS: ENOXAPARIN 80 MG/0.8 ML SYRINGE SQ SCH ×2 (08:20→20:36)
[2020-09-19] MEDS: FUROSEMIDE 40 MG TAB PEG/G-TUBE SCH ×2 (08:21→17:07)
[2020-09-19] MEDS: metFORMIN 500 MG TAB PEG/G-TUBE SCH ×2 (08:21→17:07)
[2020-09-19] MEDS: ASPIRIN 81 MG PEG/G-TUBE SCH (08:21)
[2020-09-19] MEDS: SIMETHICONE 40 MG/0.6 ML DROPS 2,000 MG/30 ML BOTTLE PEG/G-TUBE SCH ×2 (08:22→17:07)
[2020-09-19] MEDS: DILTIAZEM ORAL 60 MG TAB PO SCH ×3 (08:54→21:23)
[2020-09-19 11:46] LABS: Glucose,Whole Blood 166 mg/dL (75-99)
--- NOTE | 2020-09-19 13:33 | PN ---
PROGRESS NOTE DATE OF SERVICE: 09/19/2020 REASON FOR FOLLOWUP: Urinary tract infection. INTERVAL HISTORY: The patient is afebrile. The patient remains to be sleepy and lethargic and unable to provide any history. No vomiting or diarrhea or any other changes reported by the nursing staff. Patient also showed . PHYSICAL EXAMINATION: Blood pressure 102/58 with a pulse of 67, temperature 97.5. She is 99% on 2 L nasal cannula. General description is an elderly female lying in bed in no distress. Respiratory system: Unlabored breathing. Clear to auscultation anteriorly. Heart S1, S2. Regular rate and rhythm. Abdomen soft, no tenderness. LABS: INR is 1.7. Urine with Proteus mirabilis. Blood culture has been negative. DIAGNOSTIC IMPRESSION AND PLAN: Patient with Proteus mirabilis urinary tract infection. Patient is on Rocephin. Finish therapy with oral Ceftin and close outpatient followup. MMODL / IJN: [id number] /
--- NOTE | 2020-09-19 16:10 | P.PN ---
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 High risk for aspiration and aspiration related complication status post PEG tube 09/19/2020, patient seen eval examined during the rounds labs reviewed medications reviewed, patient remains afebrile, hemodynamically stable, remains on 2 L nasal cannula saturation is 99%, duplex ultrasound of the upper extremity on the right side has been negative for DVT This is a 75-year-old female with the history of multiple strokes predominantly bedbound nonverbal communicated however with facial response seen and noted to have a changes in mental status S to ECF advised to be evaluated further emergency department sent emergency department, on arrival was she was noted to be pale and diaphoretic found to have urinary tract infection was given IV Rocephin Department with rehydration, patient was in A. fib with RVR was started on Cardizem drip at 5 mg an hour, patient currently on 2 L oxygen opens eyes however lethargic, and review of the data revealed that prior history significant for paroxysmal atrial fibrillation hypertension hypertensive cardiovascular disease, status post to the mechanical valve further rheumatic mitral stenosis, sick sinus syndrome status post pacemaker, stroke with left-sided hemiparesis, dysphagia status post PEG tube placement, chronic hypoxic respiratory failure with history of trach in the past, Significant laboratory data EKG revealed A. fib with RVR, chest x-ray pulmonary fibrosis and interstitial edema, labs noted to have a white cell count is 11,000, BUN/creatinine 29/0.43, patient is on Coumadin med a prolonged pro- estrogen Lasix Objective - Vital Signs Vital signs: Vital Signs Temp 97.5 F L 09/19/20 11:41 Pulse 67 09/19/20 11:41 Resp 16 09/19/20 11:41 BP 102/58 09/19/20 11:41 Pulse Ox 99 09/19/20 11:41 Intake & Output 09/18/20 09/19/20 09/19/20 18:59 06:59 18:59 Intake Total 160 590 Output Total 800 450 Balance 160 -210 -450 Weight 89 kg Intake: Intake, IV Titration 50 Amount cefTRIAXone 1 gm In 50 Sodium Chloride 0.9% 50 ml @ 100 mls/hr IVPB Q24H [facility] Rx#:[id number] Tube Feeding 160 480 Other 60 Output: Urine 800 450 Other: Voiding Method External Catheter External Catheter # Bowel Movements 0 - Exam - Constitutional General appearance: average body habitus, disheveled - EENT Eyes: PERRLA Ears: bilateral: normal - Neck Neck: normal ROM Carotids: bilateral: upstroke normal Thyroid: bilateral: normal size - Respiratory Respiratory: bilateral: diminished - Cardiovascular Rhythm: irregularly irregular Heart sounds: normal: S1, S2 - Gastrointestinal General gastrointestinal: normal bowel sounds - Integumentary Integumentary: normal turgor - Musculoskeletal Musculoskeletal: generalized weakness - Psychiatric Nonverbal and noncommunicative currently - Labs CBC & Chem 7: 09/17/20 03:19 09/17/20 03:19 Labs: Abnormal Lab Results - Last 24 Hours (Table) 09/18/20 09/18/20 09/19/20 Range/Units 17:33 20:32 07:07 PT (9.0-12.0) sec INR (<1.2) POC Glucose (mg/dL) 200 H 185 H 217 H (75-99) mg/dL 09/19/20 09/19/20 Range/Units 07:11 11:45 PT 16.6 H (9.0-12.0) sec INR 1.7 H (<1.2) POC Glucose (mg/dL) 166 H (75-99) mg/dL Microbiology - Last 24 Hours (Table) 09/15/20 22:29 Blood Culture - Preliminary Blood No Growth after 72 hours 09/15/20 22:29 Blood Culture - Preliminary Blood No Growth after 72 hours Assessment and Plan Assessment: Sepsis Urinary tract infection due to Proteus multi drug-resistant, sensitive to Rocephin Altered mental status due to sepsis Paroxysmal atrial fibrillation with RVR related to above Hypertension hypertensive cardiovascular disease Rheumatic mitral stenosis 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
[2020-09-19] MEDS: FERROUS SULFATE ORAL ELIXIR 300 MG/5 ML CUP PEG/G-TUBE SCH (17:06)
[2020-09-19] MEDS: LORATADINE 10 MG TAB PEG/G-TUBE SCH (17:06)
[2020-09-19] MEDS: MULTIVITAMINS, THERA LIQUID 237 ML BOTTLE PEG/G-TUBE SCH (17:07)
[2020-09-19 17:18] LABS: Glucose,Whole Blood 178 mg/dL (75-99)
[2020-09-19] MEDS ORDERED: WARFARIN 7.5 MG TAB PO ONE (18:00)
[2020-09-19 20:29] LABS: Glucose,Whole Blood 232 mg/dL (75-99)
[2020-09-19] MEDS: INSULIN DETEMIR (LEVEMIR) 100 UNIT/ML SYR SQ SCH (20:34)
[2020-09-19] MEDS: CHOLESTYRAMINE (WITH SUGAR) 4 GM PACKET PEG/G-TUBE SCH (21:23)
[2020-09-20] MEDS: GABAPENTIN 100 MG CAP PEG/G-TUBE SCH (05:18)
[2020-09-20] MEDS: METOPROLOL TARTRATE 50 MG TAB PEG/G-TUBE SCH (05:18)
[2020-09-20 05:51] LABS: INR 1.9 (<1.2); Prothrombin Time 18.7 sec (9.0-12.0)
[2020-09-20 05:52] LABS: Anisocytosis Slight; Basophils # (A) 0.1 k/uL (0-0.2); Basophils % (A) 1 %; Eosinophils # (A) 0.8 k/uL (0-0.7); Eosinophils % (A) 8 %; HGB 12.8 gm/dL (11.4-16.0); Hypochromasia Marked; Lymphocytes # (A) 1.6 k/uL (1.0-4.8); Lymphocytes % (A) 15 %; MCH 26.8 pg (25.0-35.0); MCHC 31.2 g/dL (31.0-37.0); MCV 85.9 fL (80.0-100.0); Mean Platelet Volume 9.9; Monocytes # (A) 0.5 k/uL (0-1.0); Monocytes % (A) 5 %; Neutrophils # (A) 7.2 k/uL (1.3-7.7); Neutrophils % (A) 71 %; Platelet Count 262 k/uL (150-450); RBC 4.77 m/uL (3.80-5.40); RDW 18.2 % (11.5-15.5); WBC 10.2 k/uL (3.8-10.6)
[2020-09-20 07:08] LABS: Glucose,Whole Blood 248 mg/dL (75-99)
[2020-09-20] MEDS: INSULIN ASPART (NovoLOG) 100 UNIT/ML VIAL SQ SCH ×2 (07:23→12:13)
[2020-09-20] MEDS: metFORMIN 500 MG TAB PEG/G-TUBE SCH (07:24)
[2020-09-20] MEDS: SIMETHICONE 40 MG/0.6 ML DROPS 2,000 MG/30 ML BOTTLE PEG/G-TUBE SCH (07:24)
[2020-09-20] MEDS: DILTIAZEM ORAL 60 MG TAB PO SCH (07:24)
[2020-09-20] MEDS: FUROSEMIDE 40 MG TAB PEG/G-TUBE SCH (07:24)
[2020-09-20] MEDS: ENOXAPARIN 80 MG/0.8 ML SYRINGE SQ SCH (07:24)
[2020-09-20] MEDS: ASPIRIN 81 MG PEG/G-TUBE SCH (07:24)
[2020-09-20] MEDS: levETIRAcetam ORAL SOLN 500 MG/5 ML CUP PEG/G-TUBE SCH (07:24)
--- NOTE | 2020-09-20 08:51 | PN ---
PROGRESS NOTE 75-year-old white female no chest pain, shortness of breath, UTI, urosepsis. IV antibiotics. Cardiovascular S1-S2. Lungs clear. GI soft. Hematology negative Homans. Psych: Fair mood and affect. ASSESSMENT: 1. Urinary tract infection. 2. Urosepsis. Possible discharge home. Follow up next 24 to 48 hours to go back to the custodial. Condition stable. Follow up as an outpatient. MMODL / IJN: [id number] /
--- NOTE | 2020-09-20 08:51 | P.PN ---
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 with left-sided paralysis High risk for aspiration and aspiration related complication status post PEG tube 09/20/2020, patient seen eval examined remains on 2 L oxygen no respiratory distress seen more arousable opens eyes on verbal command, no obvious r espiratory distress has been noted, 09/19/2020, patient seen eval examined during the rounds labs reviewed medications reviewed, patient remains afebrile, hemodynamically stable, remains on 2 L nasal cannula saturation is 99%, duplex ultrasound of the upper extremity on the right side has been negative for DVT This is a 75-year-old female with the history of multiple strokes predominantly bedbound nonverbal communicated however with facial response seen and noted to have a changes in mental status S to ECF advised to be evaluated further emergency department sent emergency department, on arrival was she was noted to be pale and diaphoretic found to have urinary tract infection was given IV Rocephin Department with rehydration, patient was in A. fib with RVR was started on Cardizem drip at 5 mg an hour, patient currently on 2 L oxygen opens eyes however lethargic, and review of the data revealed that prior history significant for paroxysmal atrial fibrillation hypertension hypertensive cardiovascular disease, status post to the mechanical valve further rheumatic mitral stenosis, sick sinus syndrome status post pacemaker, stroke with left-sided hemiparesis, dysphagia status post PEG tube placement, chronic hypoxic respiratory failure with history of trach in the past, Significant laboratory data EKG revealed A. fib with RVR, chest x-ray pulmonary fibrosis and interstitial edema, labs noted to have a white cell count is 11,000, BUN/creatinine 29/0.43, patient is on Coumadin med a prolonged pro- estrogen Lasix Objective - Vital Signs Vital signs: Vital Signs Temp 98.3 F 09/20/20 05:00 Pulse 73 09/20/20 05:00 Resp 16 09/20/20 05:00 BP 135/75 09/20/20 05:00 Pulse Ox 99 09/20/20 05:00 Intake & Output 08/09/21 08/10/21 08/10/21 18:59 06:59 18:59 Intake Total 750 872 Output Total 450 450 Balance 300 422 Weight 89 kg Intake: Intake, IV Titration 50 Amount cefTRIAXone 1 gm In 50 Sodium Chloride 0.9% 50 ml @ 100 mls/hr IVPB Q24H [facility] Rx#:[id number] Tube Feeding 660 732 Other 90 90 Output: Urine 450 450 Other: Voiding Method External Catheter External Catheter # Bowel Movements 1 - Exam - Constitutional General appearance: average body habitus, disheveled - EENT Eyes: PERRLA Ears: bilateral: normal - Neck Neck: normal ROM Carotids: bilateral: upstroke normal Thyroid: bilateral: normal size - Respiratory Respiratory: bilateral: diminished - Cardiovascular Rhythm: irregularly irregular Heart sounds: normal: S1, S2 - Gastrointestinal General gastrointestinal: normal bowel sounds - Integumentary Integumentary: normal turgor - Musculoskeletal Musculoskeletal: generalized weakness - Psychiatric Nonverbal and noncommunicative currently - Labs CBC & Chem 7: 09/20/20 05:02 09/17/20 03:19 Labs: Abnormal Lab Results - Last 24 Hours (Table) 09/19/20 09/19/20 09/19/20 Range/Units 11:45 17:17 20:28 RDW (11.5-15.5) % Eosinophils # (0-0.7) k/uL PT (9.0-12.0) sec INR (<1.2) POC Glucose (mg/dL) 166 H 178 H 232 H (75-99) mg/dL 09/20/20 09/20/20 09/20/20 Range/Units 05:02 05:02 07:06 RDW 18.2 H (11.5-15.5) % Eosinophils # 0.8 H (0-0.7) k/uL PT 18.7 H (9.0-12.0) sec INR 1.9 H (<1.2) POC Glucose (mg/dL) 248 H (75-99) mg/dL Microbiology - Last 24 Hours (Table) 09/15/20 22:29 Blood Culture - Preliminary Blood No Growth after 96 hours 09/15/20 22:29 Blood Culture - Preliminary Blood No Growth after 96 hours Assessment and Plan Assessment: Sepsis Urinary tract infection due to Proteus multi drug-resistant, sensitive to Rocephin Altered mental status due to sepsis Paroxysmal atrial fibrillation with RVR related to above Hypertension hypertensive cardiovascular disease Rheumatic mitral stenosis 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
[2020-09-20] MEDS ORDERED: CEFDINIR 300 MG CAP PO SCH (09:00)
[2020-09-20 11:47] LABS: Glucose,Whole Blood 250 mg/dL (75-99)
[2020-09-20 12:08] VITALS: BP 116/75; PULSE 77; RESP 20; TEMP 97.7
[2020-09-20 13:56] LABS: African American GFR (CKD) 98.9 (60.0-200.0); Albumin 3.5 g/dL (3.80-4.90); Albumin/Globulin Ratio 1.09 (1.60-3.17); Anion Gap 13.1 mmol/L (4.00-12.00); BUN/Creat Ratio 44.29 Ratio (12.00-20.00); Calcium 9.6 mg/dL (8.7-10.3); Carbon Dioxide 28.9 mmol/L (21.6-31.8); Globulin 3.2 g/dL (1.6-3.3); Non-African American GFR(CKD) 85.4 (60.0-200.0); Potassium 4.4 mmol/L (3.5-5.5); Total Bilirubin 0.2 mg/dL (0.3-1.2); Total Protein 6.7 g/dL (6.2-8.2)
--- NOTE | 2020-09-20 14:41 | DS ---
DISCHARGE SUMMARY DISCHARGE DIAGNOSES: 1. Atrial fib/flutter with rapid ventricular response. 2. Mental status change. 3. Urinary tract infection. 4. Chronic abdominal pain. 5. Prior cerebrovascular accident with esophageal dysmobility. 6. Chronic neuropathy. 7. Urinary tract infection. 8. Seizures. 9. Chronic obstructive pulmonary disease. 10.History of aspiration pneumonia. 11.Allergic rhinitis. 12.Hypertension. 13.Diastolic heart failure. 14.Diabetes mellitus. 15.Diabetic neuropathy. 16.History of atrial fibrillation on warfarin. PLANS: Remain on Coumadin 3 mg a day once therapeutic. Lovenox can be discontinued. Otherwise she will continue Lovenox subcu 40 mg a day until INR is therapeutic. Other medications include Cardizem 60 mg t.i.d., Lovenox 80 mg subcu q.12, Omnicef 300 b.i.d., Levemir 30 daily, pravastatin 40 mg daily, Keppra 100 mg daily, aspirin 81 mg daily. Dulcolax suppository for constipation, Acetaminophen 650 q.8h p.r.n. for pain, multivitamin daily, Fleet enema for constipation p.r.n., DuoNeb updrafts q.i.d., Claritin 10 mg daily, ferrous sulfate liquid 300 mg PEG tube daily, Nitrostat 0.4 mg sublingual p.r.n., Lopressor 100 mg t.i.d., Neurontin 100 mg t.i.d., simethicone PEG tube b.i.d., Lasix 40 mg b.i.d., NovoLog a.c. and q.h.s., metformin 500 b.i.d., Milk of magnesia p.r.n., 3 mL PEG tube b.i.d., warfarin 3 mg PEG tube daily, cholestyramine 4 mg PEG tube 2 q.h.s. HOSPITAL COURSE OF EVENTS: The patient came with fluid overload, A-flutter, rapid ventricular response, urinary tract infection with mental status changes. Cardiology saw her, stabilized her atrial fibrillation. Urinary tract infection was treated with IV antibiotics switched to oral antibiotics at discharge. Positive for Proteus sensitive to Ceftin for which discharge medicines were ordered. Mental status changes were stable and unchanged from her normal baseline. She has continue with PEG tube feedings at 61 mL an hour. We will resume her back on all her standard medications she takes at [facility] and I will see over there. MMODL / IJN: [id number] /
--- NOTE | 2020-09-20 15:55 | CDI ---
Documentation Clarification Form Date: 09/20/2020 03:41:59 PM From: Kristin Merritt CCS, CCDS Admit Date: 09/16/2020 02:01:00 AM Patient Name: Ariane Eric Visit Number: [id number] Discharge Date: ATTENTION: The Clinical Documentation Specialists (CDI) and [facility] Coding Staff appreciate your assistance in clarifying documentation. Please respond to the clarification below the line at the bottom and electronically sign. The CDI & [facility] Coding staff will review the response and follow-up if needed. Please note: Queries are made part of the Legal Health Record. If you have any questions, please contact the author of this message via ITS. Dr. Luis A Gomez: Sepsis is documented in the 09/18 H/P, the 09/18 Pulmonary Consult and subsequent Pulmonary Progress Notes. Urosepsis is documented in the Attending Physician 09/19 Progress Note. Patient was subsequently diagnosed with Acute UTI with Cystitis from Gram- Negative Bacilli, secondary to Gross Catheter which was changed. Additional clarification regarding the etiology/cause of the clinical indicators is requested. History/Risk Factors per the 09/16 H/P: Atrial Fibrillation, Flutter, Prior CVA, Esophageal Dysphagia with PEG tube for feeding & medications, Asthma, Breast Cancer, Dementia, DM II, GERD, Hyperlipidemia, Hypertension, Sleep Apnea, Pacemaker & Cardiac Valve Replacement. Clinical Indicators: Presented to the ED 09/15 from a [facility] via [facility] with altered mental status. ED Clinical Impression: UTI, Atrial Flutter with RVR, Mental Status Changes 09/15 VS: T 98.2, P 156, R 20-22, BP 161/87, PO 95 RA - 100 2Lnc, BMI: 31.3 09/15 LAB: WBC 15.2, Neut 11.7, APTT 21.9, N 47, Cr 0.50, Glucose 261, Lactic Acid 2.4, Alk Phos 139, Troponin x1 0.055. 09/15 UA: Cloudy, 1+ Protein, Large Blood, Large Esterase, RBC 75, WBC >182 09/15 Blood Culture x2 (Preliminary): neg after 96 hrs 09/15 Urine Culture (Final): Proteus Mirabillis Treatment 09/15: IV fluid bolus 500 mls @ 999 mls/hr q31M x1, IV fluid bolus 1,000 mls @ 999 mls/hr q1Hr, IV Rocephin, IV fluid 1,000 mls @ 130 mls/hr q7Hr, IV Cardizem Drip Bolus x1, IV Cardizem, Heparin sq q12 Hr. In your professional opinion, please clarify if these findings signify one of the following conditions: [ ] Sepsis POA [ ] Due to, please specify: [ ] Sepsis, Not POA [ ] Due to, please specify: [ ] Sepsis ruled out [ ] Severe Sepsis with organ failure [ ] Due to, please specify: [ ] Other, please specify [ ] Unable to determine (Template Last Reviewed: March 2020) MTDD
--- NOTE | 2020-09-20 16:01 | CDI ---
Documentation Clarification Form Date: 09/20/2020 03:55:41 PM From: Kristin Merritt CCS, CCDS Admit Date: 09/16/2020 02:01:00 AM Patient Name: Ariane Eric Visit Number: [id number] Discharge Date: ATTENTION: The Clinical Documentation Specialists (CDI) and [facility] Coding Staff appreciate your assistance in clarifying documentation. Please respond to the clarification below the line at the bottom and electronically sign. The CDI & [facility] Coding staff will review the response and follow-up if needed. Please note: Queries are made part of the Legal Health Record. If you have any questions, please contact the author of this message via ITS. Dr. Luis A Gomez: Your patient has the documented diagnosis of diastolic CHF in the 09/20 Discharge Summary without acuity. Additional information regarding the acuity] of CHF is requested. History/Risk Factors per the 09/16 H/P: Atrial Fibrillation, Flutter, CHF, Prior CVA, Esophageal Dysphagia with PEG tube for feeding & medications, Asthma, Breast Cancer, Dementia, DM II, GERD, Hyperlipidemia, Hypertension, Sleep Apnea, Pacemaker & Cardiac Valve Replacement. Clinical Indicators: [facility] with altered mental status. ED Clinical Impression: UTI, Atrial Flutter with RVR, Mental Status Changes 09/15 VS: T 98.2, P 156, R 20-22, BP 161/87, PO 95 RA - 100 2Lnc, BMI: 31.3 09/15 LAB: WBC 15.2, Neut 11.7, APTT 21.9, N 47, Cr 0.50, Glucose 261, Lactic Acid 2.4, Alk Phos 139, Troponin x1 0.055. BNP was not done. 09/15 CXR: Mild pulmonary fibrosis. No obvious heart failure. Treatment 09/15: IV fluid bolus 500 mls @ 999 mls/hr q31M x1, IV fluid bolus 1,000 mls @ 999 mls/hr q1Hr, IV Rocephin, IV fluid 1,000 mls @ 130 mls/hr q7Hr, IV Cardizem Drip Bolus x1, IV Cardizem, Heparin sq q12 Hr, O2 2Lnc. 09/16: Lasix 40 mg via PEG BID (Home dose) In your professional opinion, can you please clarify the acuity of CHF if known? [ ] Chronic Diastolic Heart Failure [ ] Other, please specify [ ] Unable to determine (Template Last Revised: March 2020) MTDD
--- NOTE | 2020-09-20 16:10 | CDI ---
Documentation Clarification Form Date: 09/20/2020 04:03:15 PM From: Kristin Merritt CCS, CCDS Admit Date: 09/16/2020 02:01:00 AM Patient Name: Ariane Eric Visit Number: [id number] Discharge Date: ATTENTION: The Clinical Documentation Specialists (CDI) and [facility] Coding Staff appreciate your assistance in clarifying documentation. Please respond to the clarification below the line at the bottom and electronically sign. The CDI & [facility] Coding staff will review the response and follow-up if needed. Please note: Queries are made part of the Legal Health Record. If you have any questions, please contact the author of this message via ITS. Dr. Luis A Gomez: Atrial Flutter is documented in the 09/16 ED Clinical Impression & History, the History & Physical and the 09/17 Cardiology Consult Past History and the 09/18 Pulmonary Consult Past History. Per the 09/20 Discharge Summary: Atrial fib/flutter with RVR. The patient came with fluid overload, A-flutter, RVR, UTI & mental status changes. Additional clarification regarding the type of Atrial Flutter is requested. History/Risk Factors per the 09/16 H/P: Atrial Fibrillation, Flutter, CHF, Prior CVA, Esophageal Dysphagia with PEG tube for feeding & medications, Asthma, Breast Cancer, Dementia, DM II, GERD, Hyperlipidemia, Hypertension, Sleep Apnea, Pacemaker & Cardiac Valve Replacement. Clinical Indicators: Presented to the ED 09/15 from a [facility] via EMS with altered mental status. ED Clinical Impression: UTI, Atrial Flutter with RVR, Mental Status Changes 09/15 VS: T 98.2, P 156, R 20-22, BP 161/87, PO 95 RA - 100 2Lnc, BMI: 31.3 09/15 LAB: WBC 15.2, Neut 11.7, APTT 21.9, N 47, Cr 0.50, Glucose 261, Lactic Acid 2.4, Alk Phos 139, Troponin x1 0.055. 09/15 CXR: Mild pulmonary fibrosis. No obvious heart failure. 09/16 EKG: R 129 Atrial fibrillation w/RVR 09/16 Repeat EKG: R 156 Sinus tachycardia 09/17 Repeat EKG: R 80 Atrial tachycardia w/variable (conduction) Treatment 09/15: IV fluid bolus 500 mls @ 999 mls/hr q31M x1, IV fluid bolus 1,000 mls @ 999 mls/hr q1Hr, IV Rocephin, IV fluid 1,000 mls @ 130 mls/hr q7Hr, IV Cardizem Drip Bolus x1, IV Cardizem, Heparin sq q12 Hr, O2 2Lnc. 09/16: Lasix 40 mg via PEG BID (Home dose) Please clarify the type of Atrial Flutter, if known: [ ] Typical/Type I [ ] Atypical/Type II [ ] Other, please specify [ ] Unable to determine (Template Last Revised: April 2020) MTDD
[2020-09-20] MEDS ORDERED: WARFARIN 3 MG TAB PO ONE (18:00)
--- NOTE | 2020-09-21 15:37 | PN ---
PROGRESS NOTE ADDENDUM: Please add sepsis due to UTI. Please add chronic diastolic heart failure. Please add typical atrial flutter. MMODL / IJN: [id number] /
--- NOTE | 2020-09-22 07:31 | CDI ---
Documentation Clarification Form Date: 09/22/2020 07:21:20 AM From: Kristin Merritt CCS, CCDS Admit Date: 09/16/2020 02:01:00 AM Patient Name: Ariane Eric Visit Number: [id number] Discharge Date: 09/20/2020 04:35:00 PM ATTENTION: The Clinical Documentation Specialists (CDI) and [facility] Coding Staff appreciate your assistance in clarifying documentation. Please respond to the clarification below the line at the bottom and electronically sign. The CDI & [facility] Coding staff will review the response and follow-up if needed. Please note: Queries are made part of the Legal Health Record. If you have any questions, please contact the author of this message via ITS. Dr. Luis A Gomez: Please further clarify the etiology of the patients Urinary Tract Infection: Urinary Tract Infection is documented in the 09/16 ED Note and the 09/16 Infectious Disease Consult. Sepsis and Urinary Tract Infection due to Proteus multi drug-resistant is documented in the 09/18 H/P, the 09/18 Pulmonary Consult and subsequent Pulmonary Progress Notes. Per the 09/17 & 09/18 Attending Physician Progress Notes: Acute UTI with Cystitis from Proteus Mirabilis secondary to Gross Catheter is documented. Urosepsis is documented in the Attending Physician 09/19 Progress Note. Patient was subsequently diagnosed with Acute UTI with Cystitis from Gram- Negative Bacilli, secondary to Gross Catheter which was changed in subsequent Progress Notes. Sepsis due to UTI is documented in the 09/21 Progress Note (Query response) Additional clarification regarding the etiology/cause of Sepsis and UTI is requested. History/Risk Factors per the 09/16 H/P: Atrial Fibrillation, Flutter, Prior CVA, Esophageal Dysphagia with PEG tube for feeding & medications, Asthma, Breast Cancer, Dementia, DM II, GERD, Hyperlipidemia, Hypertension, Sleep Apnea, Pacemaker & Cardiac Valve Replacement. Clinical Indicators: Presented to the ED 09/15 from a [facility] via EMS with altered mental status. ED Clinical Impression: UTI, Atrial Flutter with RVR, Mental Status Changes 09/15 VS: T 98.2, P 156, R 20-22, BP 161/87, PO 95 RA - 100 2Lnc, BMI: 31.3 09/15 LAB: WBC 15.2, Neut 11.7, APTT 21.9, N 47, Cr 0.50, Glucose 261, Lactic Acid 2.4, Alk Phos 139, Troponin x1 0.055. 09/15 UA: Cloudy, 1+ Protein, Large Blood, Large Esterase, RBC 75, WBC >182 09/15 Blood Culture x2 (Preliminary): neg after 96 hrs 09/15 Urine Culture (Final): Proteus Mirabillis Treatment 09/15: IV fluid bolus 500 mls @ 999 mls/hr q31M x1, IV fluid bolus 1,000 mls @ 999 mls/hr q1Hr, IV Rocephin, IV fluid 1,000 mls @ 130 mls/hr q7Hr, IV Cardizem Drip Bolus x1, IV Cardizem, Heparin sq q12 Hr. Please further clarify the following: [ ] Sepsis due to Urinary Tract Infection, please specify organism: [ ] Sepsis due to Gross Catheter related Urinary Tract Infection, please specify organism: [ ] Sepsis due to Cystitis related to Gross Catheter, please specify organism: [ ] Other condition, please specify [ ] Unable to determine (Template Last Revised: April 2020) MTDD
--- NOTE | 2020-09-26 07:29 | CDI ---
Documentation Clarification Form Date: 09/22/2020 07:21:00 AM From: Kristin Merritt CCS, CCDS Admit Date: 09/16/2020 02:01:00 AM Patient Name: Ariane Eric Visit Number: [id number] Discharge Date: 09/20/2020 04:35:00 PM ATTENTION: The Clinical Documentation Specialists (CDI) and [facility] Coding Staff appreciate your assistance in clarifying documentation. Please respond to the clarification below the line at the bottom and electronically sign. The CDI & [facility] Coding staff will review the response and follow-up if needed. Please note: Queries are made part of the Legal Health Record. If you have any questions, please contact the author of this message via ITS. Dr. Luis A Gomez: Urinary Tract Infection is documented in the 09/16 ED Note and the 09/16 Infectious Disease Consult. Sepsis and Urinary Tract Infection due to Proteus multi drug-resistant is documented in the 09/18 H/P, the 09/18 Pulmonary Consult and subsequent Pulmonary Progress Notes. Per the 09/17 & 09/18 Attending Physician Progress Notes: Acute UTI with Cystitis from Proteus Mirabilis secondary to Gross Catheter is documented. Urosepsis is documented in the Attending Physician 09/19 Progress Note. Patient was subsequently diagnosed with Acute UTI with Cystitis from Gram- Negative Bacilli, secondary to Gross Catheter which was changed in subsequent Progress Notes. Sepsis due to UTI is documented in the 09/21 Progress Note (Query response) Additional clarification regarding the etiology/cause of Sepsis and UTI is requested. History/Risk Factors per the 09/16 H/P: Atrial Fibrillation, Flutter, Prior CVA, Esophageal Dysphagia with PEG tube for feeding & medications, Asthma, Breast Cancer, Dementia, DM II, GERD, Hyperlipidemia, Hypertension, Sleep Apnea, Pacemaker & Cardiac Valve Replacement. Clinical Indicators: Presented to the ED 09/15 from a Detention via EMS with altered mental status. ED Clinical Impression: UTI, Atrial Flutter with RVR, Mental Status Changes 09/15 VS: T 98.2, P 156, R 20-22, BP 161/87, PO 95 RA - 100 2Lnc, BMI: 31.3 09/15 LAB: WBC 15.2, Neut 11.7, APTT 21.9, N 47, Cr 0.50, Glucose 261, Lactic Acid 2.4, Alk Phos 139, Troponin x1 0.055. 09/15 UA: Cloudy, 1+ Protein, Large Blood, Large Esterase, RBC 75, WBC >182 09/15 Blood Culture x2 (Preliminary): neg after 96 hrs 09/15 Urine Culture (Final): Proteus Mirabillis Treatment 09/15: IV fluid bolus 500 mls @ 999 mls/hr q31M x1, IV fluid bolus 1,000 mls @ 999 mls/hr q1Hr, IV Rocephin, IV fluid 1,000 mls @ 130 mls/hr q7Hr, IV Cardizem Drip Bolus x1, IV Cardizem, Heparin sq q12 Hr. Please further clarify the following: [ ] Sepsis due to Urinary Tract Infection, please specify organism: [ ] Sepsis due to Gross Catheter related Urinary Tract Infection, please specify organism: [ ] Sepsis due to Cystitis related to Gross Catheter, please specify organism: [ ] Other condition, please specify [ ] Unable to determine (Template Last Revised: April 2020) MTDD
--- NOTE | 2020-09-26 17:32 | PN ---
PROGRESS NOTE ADDENDUM: Sepsis secondary to urinary tract infection, most likely related to the Gross catheter. MMODL / IJN: [id number] /
== END 2020-09-20 16:35 | DRG 698 ==
LOC: EC 21:11 → 3SCARD 09-16 02:01 → 5NMEDONC 09-18 14:45
PROVIDERS: ADMIT Family Medicine; ATTEND Family Medicine
DX: T83.518A Infection and inflammatory reaction due to other urinary catheter, initial encounter (principal); G93.41 Metabolic encephalopathy; A41.50 Gram-negative sepsis, unspecified; E87.2 Acidosis; F05 Delirium due to known physiological condition; Z16.24 Resistance to multiple antibiotics; I50.32 Chronic diastolic (congestive) heart failure; N30.00 Acute cystitis without hematuria; I69.354 Hemiplegia and hemiparesis following cerebral infarction affecting left non-dominant side; I48.3 Typical atrial flutter; I48.0 Paroxysmal atrial fibrillation; E11.40 Type 2 diabetes mellitus with diabetic neuropathy, unspecified; E11.65 Type 2 diabetes mellitus with hyperglycemia; E78.5 Hyperlipidemia, unspecified; F03.90 Unspecified dementia, unspecified severity, without behavioral disturbance, psychotic disturbance, mood disturbance, and anxiety; G89.29 Other chronic pain; Y84.6 Urinary catheterization as the cause of abnormal reaction of the patient, or of later complication, without mention of misadventure at the time of the procedure; Z96.1 Presence of intraocular lens; K21.9 Gastro-esophageal reflux disease without esophagitis; F32.9 Major depressive disorder, single episode, unspecified; I11.0 Hypertensive heart disease with heart failure; I25.10 Atherosclerotic heart disease of native coronary artery without angina pectoris; B96.89 Other specified bacterial agents as the cause of diseases classified elsewhere; R53.81 Other malaise; B96.4 Proteus (mirabilis) (morganii) as the cause of diseases classified elsewhere; Z79.01 Long term (current) use of anticoagulants; Z79.4 Long term (current) use of insulin; Z79.82 Long term (current) use of aspirin; Z79.899 Other long term (current) drug therapy; Z99.81 Dependence on supplemental oxygen; Z95.5 Presence of coronary angioplasty implant and graft; Z95.2 Presence of prosthetic heart valve; Z95.0 Presence of cardiac pacemaker; Z93.1 Gastrostomy status; Z90.710 Acquired absence of both cervix and uterus; Z87.891 Personal history of nicotine dependence; Z87.440 Personal history of urinary (tract) infections; Z87.01 Personal history of pneumonia (recurrent); Z85.3 Personal history of malignant neoplasm of breast; Z82.3 Family history of stroke; Z80.0 Family history of malignant neoplasm of digestive organs; Z74.01 Bed confinement status; Z79.84 Long term (current) use of oral hypoglycemic drugs; Z86.14 Personal history of Methicillin resistant Staphylococcus aureus infection; I27.22 Pulmonary hypertension due to left heart disease; R15.9 Full incontinence of feces; R32 Unspecified urinary incontinence; R13.19 Other dysphagia
CPT/HCPCS: 36415; 70450; 71045; 74176; 80053; 81001; 83605; 83735; 84443; 84484; 85025; 85610; 85730; 87040; 87077; 87086; 87186; 87635; 93005; 96365; 99285

== ENCOUNTER 2020-10-11 12:54 | Emergency (ER) | payer MEDICARE, OTHER ==
[2020-10-11 13:06] VITALS: TEMP 99.3
--- NOTE | 2020-10-11 14:16 | XR ---
EXAMINATION TYPE: XR KUB DATE OF EXAM: 10/11/2020 COMPARISON: NONE HISTORY: Peg tube placement. TECHNIQUE: Single supine KUB image of the abdomen is obtained FINDINGS: 35 ML of Isovue 370 into Peg tube. Contrast is noted within the duodenal bulb and duodenum up to the ligament of Treitz. No extravasatio n seen. IMPRESSION: 1. As above
--- NOTE | 2020-10-11 14:20 | ED ---
General Adult HPI - General Chief complaint: Recheck/Abnormal Lab/Rx Stated complaint: needs PEG tube replaced Time Seen by Provider: 10/11/20 12:58 Source: EMS Mode of arrival: EMS Limitations: altered mental status - History of Present Illness Initial comments: 75-year-old female with a complicated past medical history presents to the emergency room from [facility] for PEG tube replacement. Patient was being cleaned and was turned on her side. The PEG tube was accidentally pulled out. The balloon was intact. She has had PEG tube at least since May. No other complaints. The half-way was able to place a Harley in the ostomy to keep it open. Patient has no other complaints at this time including shortness of breath, chest pain, abdominal pain, nausea or vomiting, headache, or visual changes. - Related Data Home Medications Medication Instructions Recorded Confirmed Pravastatin Sodium [Pravachol] 40 mg PEG/G-TUBE HS@2100 05/20/17 09/15/20 levETIRAcetam [Keppra Oral 100 mg PEG/G-TUBE DAILY@0800 09/27/17 09/15/20 Solution] Aspirin 81 mg PEG/G-TUBE DAILY@0800 05/30/18 09/15/20 Acetaminophen Oral Susp [Tylenol] 650 mg PEG/G-TUBE Q6H PRN 12/25/19 09/15/20 Multivitamins, Thera Liquid 5 ml PEG/G-TUBE DAILY@1700 12/25/19 09/15/20 [Theragran Liquid (formulary)] bisacodyL [Dulcolax] 10 mg RECTAL DAILY PRN 12/25/19 09/15/20 Ipratropium-Albuterol Nebulize 3 ml INHALATION RT-Q6H PRN 06/11/20 09/15/20 [Duoneb 0.5 mg-3 mg/3 ml Soln] Na Phos,M-B/Na Phos,Di-Ba [Fleet 133 ml RECTAL DAILY PRN 06/11/20 09/15/20 Adult] Furosemide [Lasix] 40 mg PEG/G-TUBE BID@0800,1700 06/24/20 09/15/20 INSULIN ASPART (NovoLOG) [NovoLOG See Protocol SQ ACHS 06/24/20 09/15/20 (formulary)] metFORMIN HCL [Glucophage] 500 mg PEG/G-TUBE BID@0800,1700 06/24/20 09/15/20 Metoprolol Tartrate [Lopressor] 100 mg PEG/G-TUBE 07/15/20 09/15/20 TID@0600,1400,2200 Cholestyramine (with Sugar) 4 gm PEG/G-TUBE HS@2200 09/15/20 09/15/20 [Questran Packet] Gabapentin [Neurontin] 100 mg PEG/G-TUBE 09/15/20 09/15/20 TID@0600,1400,2100 Liquacel 30 ml PEG/G-TUBE BID@0800,1600 09/15/20 09/15/20 Simethicone 40 mg PEG/G-TUBE BID@0800,1700 09/15/20 09/15/20 Warfarin [Coumadin] 3 mg PEG/G-TUBE DAILY@1700 09/15/20 09/15/20 Previous Rx's Medication Instructions Recorded Loratadine [Claritin] 10 mg PEG/G-TUBE DAILY@1700 tab 06/14/20 Ferrous Sulfate Oral Elixir 300 mg PEG/G-TUBE DAILY@1700 ml 06/29/20 [Feosol Liquid] Magnesium Hydroxide [Milk of 2,400 mg PEG/G-TUBE DAILY PRN ml 06/29/20 Magnesia Concentrate] Nitroglycerin Sl Tabs [Nitrostat] 0.4 mg SUBLINGUAL Q5M PRN tab 06/29/20 Cefdinir [Omnicef] 300 mg PO BID cap 09/19/20 Diltiazem Oral [Cardizem*] 60 mg PO TID tab 09/19/20 Enoxaparin [Lovenox] 80 mg SQ Q12HR syringe 09/19/20 Insulin Detemir (Levemir) [Levemir] 30 unit SQ HS syr 09/19/20 Allergies Allergy/AdvReac Type Severity Reaction Status Date / Time ciprofloxacin [From Cipro] Allergy Rash/Hives Verified 09/15/20 23:24 ciprofloxacin HCl Allergy Rash/Hives Verified 09/15/20 23:24 [From Cipro] Quinolones Allergy Unknown Verified 09/15/20 23:24 Review of Systems ROS Statement: Those systems with pertinent positive or pertinent negative responses have been documented in the HPI. ROS Other: All systems not noted in ROS Statement are negative. Past Medical History Past Medical History: Atrial Fibrillation, Atrial Flutter, Asthma, Cancer, Heart Failure, CVA/TIA, Dementia, Diabetes Mellitus, GERD/Reflux, GI Bleed, Hyperlipidemia, Hypertension, Pneumonia, Sleep Apnea/CPAP/BIPAP Additional Past Medical History / Comment(s): Verified with [employer] papers r/t son Jose Rafael being unsure of history. Jose Rafael states he is also pt's DPOA. 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, post traumatic seizures, History of Any Multi-Drug Resistant Organisms: MRSA Date of last positivie culture/infection: 08/21/20 MDRO Source:: MRSA URINE Past Surgical History: Breast Surgery, Cardiac Valve Replacement, Heart Catheterization With Stent, Hysterectomy, Orthopedic Surgery, Pacemaker, Tonsillectomy Additional Past Surgical History / Comment(s): Peg tube, mechanical mitral valve 2000, polypectomy spinal cord/cyst removed, TEEs, CVNs, colonoscopies, bilateral cataract removal/lens implants, L rotator cuff repair, R femur fracture with IM hip/screw/nail, L breast lumpectomy, Past Anesthesia/Blood Transfusion Reactions: No Reported Reaction Date of Last Stent Placement:: 2006 Type of Cardiac Device: Permanent Pacemaker Device Placement Date:: 2009 Past Psychological History: Depression Smoking Status: Unknown if ever smoked Past Alcohol Use History: Unable to Obtain Past Drug Use History: Unable to Obtain - Past Family History Father Family Medical History: GI Bleed Additional Family Medical History / Comment(s): OF BLEEDING ULCER AT AGE 64 Mother Family Medical History: Cancer, CVA/TIA Additional Family Medical History / Comment(s): HX STROKES, COLON CANCER General Exam Limitations: altered mental status General appearance: in no apparent distress Head exam: Present: atraumatic Eye exam: Absent: scleral icterus, conjunctival injection ENT exam: Present: normal exam Neck exam: Present: normal inspection, full ROM. Absent: tenderness Respiratory exam: Present: normal lung sounds bilaterally. Absent: respiratory distress, wheezes Cardiovascular Exam: Present: regular rate, normal rhythm, normal heart sounds GI/Abdominal exam: Present: soft, normal bowel sounds, other (harley placed in ostomy LUQ). Absent: tenderness Neurological exam: Present: alert Course Vital Signs 10/11/20 13:00 Temperature 99.3 F Pulse Rate 106 H Respiratory 18 Rate Blood Pressure 182/90 O2 Sat by Pulse 95 Oximetry Medical Decision Making - Medical Decision Making Balloon was drained and Harley was removed. Patient used to have a 16-Bhutanese PEG tube however we do not have a 16, only 1814. 18-Bhutanese was used which was replaced without difficulty. A PEG-ogram was obtained which was normal, reviewed by myself and Dr López. Patient discharged back. Disposition Clinical Impression: PEG tube malfunction Disposition: HOME SELF-CARE Condition: Good Instructions (If sedation given, give patient instructions): How to Use and Care for Your PEG Tube (ED) Additional Instructions: Please follow-up with primary care doctor. Return for any worsening symptoms. Is patient prescribed a controlled substance at d/c from ED?: No Referrals: Luis A Gomez MD [Primary Care Provider] - 1-2 days Time of Disposition: 14:20
[2020-10-11 14:36] VITALS: BP 121/73; RESP 16
[2020-10-11 16:23] VITALS: PULSE 89
== END 2020-10-11 16:00 | disposition home or self-care (01) ==
LOC: EC 12:54
DX: K94.23 Gastrostomy malfunction (principal); I11.0 Hypertensive heart disease with heart failure; I50.9 Heart failure, unspecified; E11.9 Type 2 diabetes mellitus without complications; J45.909 Unspecified asthma, uncomplicated; I48.91 Unspecified atrial fibrillation; F03.90 Unspecified dementia, unspecified severity, without behavioral disturbance, psychotic disturbance, mood disturbance, and anxiety; K21.9 Gastro-esophageal reflux disease without esophagitis; E78.5 Hyperlipidemia, unspecified; Z86.73 Personal history of transient ischemic attack (TIA), and cerebral infarction without residual deficits; Z79.82 Long term (current) use of aspirin; Z79.4 Long term (current) use of insulin; Z79.01 Long term (current) use of anticoagulants; Z88.1 Allergy status to other antibiotic agents; Z95.0 Presence of cardiac pacemaker; Z90.710 Acquired absence of both cervix and uterus
CPT/HCPCS: 99283; 43762; 74018; Q9967

== ENCOUNTER 2020-10-16 03:49 | Emergency (ER) | payer MEDICARE, OTHER ==
[2020-10-16 04:00] VITALS: BP 122/73; PULSE 76; RESP 18; TEMP 98.8
--- NOTE | 2020-10-16 04:04 | ED ---
Recheck HPI - General Chief Complaint: Recheck/Abnormal Lab/Rx Stated Complaint: Peg tube issues Source: EMS, RN notes reviewed, old records reviewed Mode of arrival: EMS Limitations: altered mental status - History of Present Illness Initial Comments: This is a 75-year-old female to the emergency room today. Patient is safe for evaluation regards to displaced PEG tube. Patient presents for replacement of PEG tube otherwise has no complaints MD Complaint: wound re-check (PEG tube evaluation) -: unknown Returns Today for: persistent/worsening pain related to initial visit Symptoms Since Prior Visit: no new symptoms Context: planned re-check Associated Symptoms: none Treatments Prior to Arrival: other (none) - Related Data Home Medications Medication Instructions Recorded Confirmed Pravastatin Sodium [Pravachol] 40 mg PEG/G-TUBE HS@2100 05/20/17 10/18/20 levETIRAcetam [Keppra Oral 100 mg PEG/G-TUBE DAILY@0800 09/27/17 10/18/20 Solution] Aspirin 81 mg PEG/G-TUBE DAILY@0800 05/30/18 10/18/20 Acetaminophen Oral Susp [Tylenol] 640 mg PEG/G-TUBE Q6H PRN 12/25/19 10/18/20 Multivitamins, Thera Liquid 5 ml PEG/G-TUBE DAILY@1700 12/25/19 10/18/20 [Theragran Liquid (formulary)] bisacodyL [Dulcolax] 10 mg RECTAL DAILY PRN 12/25/19 10/18/20 Ipratropium-Albuterol Nebulize 3 ml INHALATION RT-QID PRN 06/11/20 10/18/20 [Duoneb 0.5 mg-3 mg/3 ml Soln] Na Phos,M-B/Na Phos,Di-Ba [Fleet 133 ml RECTAL DAILY PRN 06/11/20 10/18/20 Adult] Furosemide [Lasix] 40 mg PEG/G-TUBE BID@0800,1700 06/24/20 10/18/20 INSULIN ASPART (NovoLOG) [NovoLOG See Protocol SQ ACHS 06/24/20 10/18/20 (formulary)] metFORMIN HCL [Glucophage] 500 mg PEG/G-TUBE BID@0800,1700 06/24/20 10/18/20 Metoprolol Tartrate [Lopressor] 100 mg PEG/G-TUBE 07/15/20 10/18/20 TID@0600,1400,2200 Gabapentin [Neurontin] 100 mg PEG/G-TUBE 09/15/20 10/18/20 TID@0600,1400,2100 Liquacel 30 ml PEG/G-TUBE BID@0800,1600 09/15/20 10/18/20 Simethicone 40 mg PEG/G-TUBE BID@0800,1700 09/15/20 10/18/20 Biotene Dry Mouth Mouthwash 5 ml MUCOUS MEM TID@0800,1200,1700 10/18/20 10/18/20 Cholestyramine/Aspartame 4 gm PEG/G-TUBE HS@2200 10/18/20 10/18/20 [Cholestyramine Light Packet] Diltiazem Oral [Cardizem*] 60 mg PEG/G-TUBE TID 10/18/20 10/18/20 Ferrous Sulfate 330 mg PEG/G-TUBE DAILY@1700 10/18/20 10/18/20 Insulin Detemir (Levemir) [Levemir] 40 unit SQ HS 10/18/20 10/18/20 Magnesium Hydroxide [Milk of 7,200 mg PEG/G-TUBE DAILY PRN 10/18/20 10/18/20 Magnesia Concentrate] Nitroglycerin Sl Tabs [Nitrostat] 0.4 mg SL Q5M PRN 10/18/20 10/18/20 Previous Rx's Medication Instructions Recorded Loratadine [Claritin] 10 mg PEG/G-TUBE DAILY@1700 tab 06/14/20 Voriconazole [Vfend] 300 mg PO Q12HR tab 10/28/20 Allergies Allergy/AdvReac Type Severity Reaction Status Date / Time ciprofloxacin [From Cipro] Allergy Rash/Hives Verified 10/18/20 07:45 ciprofloxacin HCl Allergy Rash/Hives Verified 10/18/20 07:45 [From Cipro] Quinolones Allergy Unknown Verified 10/18/20 07:45 Review of Systems ROS Statement: Those systems with pertinent positive or pertinent negative responses have been documented in the HPI. ROS Other: All systems not noted in ROS Statement are negative. Past Medical History Past Medical History: Atrial Fibrillation, Atrial Flutter, Asthma, Cancer, Heart Failure, CVA/TIA, Dementia, Diabetes Mellitus, GERD/Reflux, GI Bleed, Hy perlipidemia, Hypertension, Pneumonia, Sleep Apnea/CPAP/BIPAP Additional Past Medical History / Comment(s): [facility] son Jose Rafael being unsure of history. Jose Rafael states he is also pt's DPOA. 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, post traumatic seizures, History of Any Multi-Drug Resistant Organisms: MRSA Date of last positivie culture/infection: 08/21/20 MDRO Source:: MRSA URINE Past Surgical History: Breast Surgery, Cardiac Valve Replacement, Heart Catheterization With Stent, Hysterectomy, Orthopedic Surgery, Pacemaker, Tonsillectomy Additional Past Surgical History / Comment(s): Peg tube, mechanical mitral valve 2000, polypectomy spinal cord/cyst removed, TEEs, CVNs, colonoscopies, bilateral cataract removal/lens implants, L rotator cuff repair, R femur fracture with IM hip/screw/nail, L breast lumpectomy, Past Anesthesia/Blood Transfusion Reactions: No Reported Reaction Date of Last Stent Placement:: 2006 Type of Cardiac Device: Permanent Pacemaker Device Placement Date:: 2009 Past Psychological History: Depression Smoking Status: Unknown if ever smoked Past Alcohol Use History: Unable to Obtain Past Drug Use History: Unable to Obtain - Past Family History Father Family Medical History: GI Bleed Additional Family Medical History / Comment(s): OF BLEEDING ULCER AT AGE 64 Mother Family Medical History: Cancer, CVA/TIA Additional Family Medical History / Comment(s): HX STROKES, COLON CANCER General Exam Limitations: altered mental status General appearance: alert, in no apparent distress Head exam: Present: atraumatic, normocephalic, normal inspection Eye exam: Present: normal appearance, PERRL, EOMI. Absent: scleral icterus, conjunctival injection, periorbital swelling ENT exam: Present: normal exam, mucous membranes moist Neck exam: Present: normal inspection. Absent: tenderness, meningismus, lymphadenopathy Respiratory exam: Present: normal lung sounds bilaterally. Absent: respiratory distress, wheezes, rales, rhonchi, stridor Cardiovascular Exam: Present: regular rate, normal rhythm, normal heart sounds. Absent: systolic murmur, diastolic murmur, rubs, gallop, clicks GI/Abdominal exam: Present: soft, normal bowel sounds. Absent: distended, tenderness, guarding, rebound, rigid Extremities exam: Present: normal inspection, full ROM, normal capillary refill. Absent: tenderness, pedal edema, joint swelling, calf tenderness Back exam: Present: normal inspection Neurological exam: Present: alert, oriented X3, CN II-XII intact Psychiatric exam: Present: normal affect, normal mood Skin exam: Present: warm, dry, intact, normal color. Absent: rash Course Vital Signs 10/16/20 03:51 Temperature 98.8 F Pulse Rate 76 Respiratory 18 Rate Blood Pressure 122/73 O2 Sat by Pulse 95 Oximetry - Reevaluation(s) Reevaluation #1: 10/16/20 06:52 Medical record is reviewed Reevaluation #2: 10/16/20 06:52 PEG tube is evaluated, working functioning appropriately Reevaluation #3: 10/16/20 06:52 PEG tube area is cleaned and cellulitis is cleaned Medical Decision Making - Medical Decision Making 75 female to the emergency department for evaluation of dislodged PEG tube. Tube is replaced and patient can be discharged home - Radiology Data Radiology results: report reviewed (X-ray KUB shows positive PEG tube placement), image reviewed Disposition Clinical Impression: PEG tube malfunction, Encounter for wound re-check Disposition: HOME SELF-CARE Condition: Fair Instructions (If sedation given, give patient instructions): Cellulitis (ED) Is patient prescribed a controlled substance at d/c from ED?: No Referrals: Luis A Gomez MD [Primary Care Provider] - 1-2 days
--- NOTE | 2020-10-16 04:35 | XR ---
EXAMINATION TYPE: XR KUB DATE OF EXAM: 10/16/2020 COMPARISON: 10/11/2020 HISTORY: Check jejunostomy tube placement TECHNIQUE: Single view FINDINGS: Contrast was injected into the jejunostomy tube. The contrast flows freely into the jejunum . I see no extravasation. IMPRESSION: Jejunostomy tube is in good position. No adverse change compared to recent exam.
[2020-10-16] MEDS ORDERED: MUPIROCIN 2% OINT 22 GM TUBE TOPICAL STA (04:59)
== END 2020-10-16 05:15 | disposition home or self-care (01) ==
LOC: EC 03:49
DX: K94.23 Gastrostomy malfunction (principal); Z46.59 Encounter for fitting and adjustment of other gastrointestinal appliance and device; E11.9 Type 2 diabetes mellitus without complications; I11.0 Hypertensive heart disease with heart failure; I50.9 Heart failure, unspecified; J45.909 Unspecified asthma, uncomplicated; K21.9 Gastro-esophageal reflux disease without esophagitis; I48.91 Unspecified atrial fibrillation; I48.92 Unspecified atrial flutter; E78.5 Hyperlipidemia, unspecified; F03.90 Unspecified dementia, unspecified severity, without behavioral disturbance, psychotic disturbance, mood disturbance, and anxiety; Z79.4 Long term (current) use of insulin; Z79.82 Long term (current) use of aspirin; Z79.899 Other long term (current) drug therapy; Z86.73 Personal history of transient ischemic attack (TIA), and cerebral infarction without residual deficits; Z88.1 Allergy status to other antibiotic agents; Z95.0 Presence of cardiac pacemaker
CPT/HCPCS: 74018; 99283

== ENCOUNTER 2020-10-18 03:52 | Inpatient (IN) | payer MEDICARE, OTHER ==
[2020-10-18] MEDS ORDERED: NALOXONE 0.4 MG/ML 1 ML VIAL IV PRN (04:00)
[2020-10-18] MEDS ORDERED: SODIUM CHLORIDE 0.9% 1,000 ML IV STA (04:00)
[2020-10-18] MEDS ORDERED: SODIUM CHLORIDE 0.9% 500 ML 500 ML IV STA (04:00)
[2020-10-18] MEDS ORDERED: ONDANSETRON 4 MG/2 ML VIAL IVP PRN (04:00)
--- NOTE | 2020-10-18 04:03 | ED ---
Recheck HPI - General Stated Complaint: Peg Tube issue Time Seen by Provider: 10/18/20 03:59 Source: RN notes reviewed, old records reviewed Mode of arrival: EMS - History of Present Illness Initial Comments: This is a 75-year-old female to the ER. Patient resents today for evaluation regards to PEG tube being infected, significant amount of stool presenting from area around PEG tube. Patient is completely altered unable to find history history otherwise obtained from staff. This is the second and third time patient is been here for similar issue MD Complaint: wound re-check -: unknown Returns Today for: wound recheck, persistent/worsening pain related to initial visit Symptoms Since Prior Visit: worsening pain Context: planned re-check Associated Symptoms: none - Related Data Home Medications Medication Instructions Recorded Confirmed Pravastatin Sodium [Pravachol] 40 mg PEG/G-TUBE HS@2100 05/20/17 10/18/20 levETIRAcetam [Keppra Oral 100 mg PEG/G-TUBE DAILY@0800 09/27/17 10/18/20 Solution] Aspirin 81 mg PEG/G-TUBE DAILY@0800 05/30/18 10/18/20 Acetaminophen Oral Susp [Tylenol] 640 mg PEG/G-TUBE Q6H PRN 12/25/19 10/18/20 Multivitamins, Thera Liquid 5 ml PEG/G-TUBE DAILY@1700 12/25/19 10/18/20 [Theragran Liquid (formulary)] bisacodyL [Dulcolax] 10 mg RECTAL DAILY PRN 12/25/19 10/18/20 Ipratropium-Albuterol Nebulize 3 ml INHALATION RT-QID PRN 06/11/20 10/18/20 [Duoneb 0.5 mg-3 mg/3 ml Soln] Na Phos,M-B/Na Phos,Di-Ba [Fleet 133 ml RECTAL DAILY PRN 06/11/20 10/18/20 Adult] Furosemide [Lasix] 40 mg PEG/G-TUBE BID@0800,1700 06/24/20 10/18/20 INSULIN ASPART (NovoLOG) [NovoLOG See Protocol SQ ACHS 06/24/20 10/18/20 (formulary)] metFORMIN HCL [Glucophage] 500 mg PEG/G-TUBE BID@0800,1700 06/24/20 10/18/20 Metoprolol Tartrate [Lopressor] 100 mg PEG/G-TUBE 07/15/20 10/18/20 TID@0600,1400,2200 Gabapentin [Neurontin] 100 mg PEG/G-TUBE 09/15/20 10/18/20 TID@0600,1400,2100 Liquacel 30 ml PEG/G-TUBE BID@0800,1600 09/15/20 10/18/20 Simethicone 40 mg PEG/G-TUBE BID@0800,1700 09/15/20 10/18/20 Biotene Dry Mouth Mouthwash 5 ml MUCOUS MEM TID@0800,1200,1700 10/18/20 10/18/20 Cholestyramine/Aspartame 4 gm PEG/G-TUBE HS@2200 10/18/20 10/18/20 [Cholestyramine Light Packet] Diltiazem Oral [Cardizem*] 60 mg PEG/G-TUBE TID 10/18/20 10/18/20 Ferrous Sulfate 330 mg PEG/G-TUBE DAILY@1700 10/18/20 10/18/20 Insulin Detemir (Levemir) [Levemir] 40 unit SQ HS 10/18/20 10/18/20 Magnesium Hydroxide [Milk of 7,200 mg PEG/G-TUBE DAILY PRN 10/18/20 10/18/20 Magnesia Concentrate] Nitroglycerin Sl Tabs [Nitrostat] 0.4 mg SL Q5M PRN 10/18/20 10/18/20 Previous Rx's Medication Instructions Recorded Loratadine [Claritin] 10 mg PEG/G-TUBE DAILY@1700 tab 06/14/20 Voriconazole [Vfend] 300 mg PO Q12HR tab 10/28/20 Allergies Allergy/AdvReac Type Severity Reaction Status Date / Time ciprofloxacin [From Cipro] Allergy Rash/Hives Verified 10/18/20 07:45 ciprofloxacin HCl Allergy Rash/Hives Verified 10/18/20 07:45 [From Cipro] Quinolones Allergy Unknown Verified 10/18/20 07:45 Review of Systems ROS Statement: Those systems with pertinent positive or pertinent negative responses have been documented in the HPI. ROS Other: All systems not noted in ROS Statement are negative. Past Medical History Past Medical History: Atrial Fibrillation, Atrial Flutter, Asthma, Cancer, Heart Failure, CVA/TIA, Dementia, Diabetes Mellitus, GERD/Reflux, GI Bleed, Hyperlipidemia, Hypertension, Pneumonia, Sleep Apnea/CPAP/BIPAP Additional Past Medical History / Comment(s): Verified with [facility] papers r/t son Jose Rafael being unsure of history. Jose Rafael states he is also pt's DPOA. 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, post traumatic seizures, History of Any Multi-Drug Resistant Organisms: MRSA Date of last positivie culture/infection: 08/21/20 MDRO Source:: MRSA URINE Past Surgical History: Breast Surgery, Cardiac Valve Replacement, Heart Catheterization With Stent, Hysterectomy, Orthopedic Surgery, Pacemaker, Tonsillectomy Additional Past Surgical History / Comment(s): Peg tube, mechanical mitral valve 2000, polypectomy spinal cord/cyst removed, TEEs, CVNs, colonoscopies, bilateral cataract removal/lens implants, L rotator cuff repair, R femur fracture with IM hip/screw/nail, L breast lumpectomy, Past Anesthesia/Blood Transfusion Reactions: No Reported Reaction Date of Last Stent Placement:: 2006 Type of Cardiac Device: Permanent Pacemaker Device Placement Date:: 2009 Past Psychological History: Depression Smoking Status: Unknown if ever smoked Past Alcohol Use History: Unable to Obtain Past Drug Use History: Unable to Obtain - Past Family History Father Family Medical History: GI Bleed Additional Family Medical History / Comment(s): OF BLEEDING ULCER AT AGE 64 Mother Family Medical History: Cancer, CVA/TIA Additional Family Medical History / Comment(s): HX STROKES, COLON CANCER General Exam General appearance: alert, in no apparent distress Head exam: Present: atraumatic, normocephalic, normal inspection Eye exam: Present: normal appearance, PERRL, EOMI. Absent: scleral icterus, c onjunctival injection, periorbital swelling ENT exam: Present: normal exam, mucous membranes moist Neck exam: Present: normal inspection. Absent: tenderness, meningismus, lymphadenopathy Respiratory exam: Present: normal lung sounds bilaterally. Absent: respiratory distress, wheezes, rales, rhonchi, stridor Cardiovascular Exam: Present: regular rate, normal rhythm, normal heart sounds. Absent: systolic murmur, diastolic murmur, rubs, gallop, clicks GI/Abdominal exam: Present: soft, normal bowel sounds. Absent: distended, tenderness, guarding, rebound, rigid Extremities exam: Present: normal inspection, full ROM, normal capillary refill. Absent: tenderness, pedal edema, joint swelling, calf tenderness Back exam: Present: normal inspection Neurological exam: Present: alert, oriented X3, CN II-XII intact Psychiatric exam: Present: normal affect, normal mood Skin exam: Present: warm, dry, intact, normal color. Absent: rash Course Vital Signs 10/18/20 10/18/20 10/18/20 04:00 05:32 10:05 Temperature 98.2 F 97.6 F Pulse Rate 68 77 75 Respiratory 20 18 Rate Blood Pressure 134/74 121/83 108/80 O2 Sat by Pulse 100 100 Oximetry 10/18/20 10/18/20 11:30 13:00 Temperature 98 F Pulse Rate 71 75 Respiratory 16 16 Rate Blood Pressure 116/67 112/66 O2 Sat by Pulse 99 99 Oximetry - Reevaluation(s) Reevaluation #1: 10/18/20 Medical record is reviewed Patient symptoms are improved here in the emergency department Patient is informed results and questions answered Patient is in no acute distress Medical Decision Making - Medical Decision Making 75 female with PEG tube infection. Patient does have significant leakage of stool around PEG tube with significant cellulitis, patient be admitted for evaluation of PEG tube site - Lab Data Result diagrams: 10/27/20 19:50 10/27/20 05:07 Lab Results 10/18/20 10/18/20 10/18/20 Range/Units 04:35 04:35 04:35 WBC 11.3 H (3.8-10.6) k/uL RBC 4.40 (3.80-5.40) m/uL Hgb 12.0 (11.4-16.0) gm/dL Hct 38.8 (34.0-46.0) % MCV 88.2 (80.0-100.0) fL MCH 27.3 (25.0-35.0) pg MCHC 31.0 (31.0-37.0) g/dL RDW 18.7 H (11.5-15.5) % Plt Count 243 (150-450) k/uL MPV 9.7 Neutrophils % 77 % Lymphocytes % 14 % Monocytes % 4 % Eosinophils % 3 % Basophils % 0 % Neutrophils # 8.7 H (1.3-7.7) k/uL Lymphocytes # 1.6 (1.0-4.8) k/uL Monocytes # 0.4 (0-1.0) k/uL Eosinophils # 0.3 (0-0.7) k/uL Basophils # 0.0 (0-0.2) k/uL Hypochromasia Slight Anisocytosis Slight PT (9.0-12.0) sec INR (<1.2) Sodium 140 (137-145) mmol/L Potassium 3.7 (3.5-5.1) mmol/L Chloride 108 H (98-107) mmol/L Carbon Dioxide 29 (22-30) mmol/L Anion Gap 3 mmol/L BUN 46 H (7-17) mg/dL Creatinine 0.42 L (0.52-1.04) mg/dL Est GFR (CKD-EPI)AfAm >90 (>60 ml/min/1.73 sqM) Est GFR (CKD-EPI)NonAf >90 (>60 ml/min/1.73 sqM) Glucose 215 H (74-99) mg/dL POC Glucose (mg/dL) (75-99) mg/dL POC Glu Distance Learning Administrator ID Calcium 8.3 L (8.4-10.2) mg/dL Phosphorus 2.8 (2.5-4.5) mg/dL Magnesium 2.3 (1.6-2.3) mg/dL Total Bilirubin <0.1 L (0.2-1.3) mg/dL AST 23 (14-36) U/L ALT 25 (4-34) U/L Alkaline Phosphatase 134 H (38-126) U/L Creatine Kinase 36 (30-135) U/L Troponin I 0.046 H* (0.000-0.034) ng/mL Total Protein 5.7 L (6.3-8.2) g/dL Albumin 2.7 L (3.5-5.0) g/dL 09/07/21 09/07/21 09/07/21 Range/Units 17:27 18:48 19:31 WBC (3.8-10.6) k/uL RBC (3.80-5.40) m/uL Hgb (11.4-16.0) gm/dL Hct (34.0-46.0) % MCV (80.0-100.0) fL MCH (25.0-35.0) pg MCHC (31.0-37.0) g/dL RDW (11.5-15.5) % Plt Count (150-450) k/uL MPV Neutrophils % % Lymphocytes % % Monocytes % % Eosinophils % % Basophils % % Neutrophils # (1.3-7.7) k/uL Lymphocytes # (1.0-4.8) k/uL Monocytes # (0-1.0) k/uL Eosinophils # (0-0.7) k/uL Basophils # (0-0.2) k/uL Hypochromasia Anisocytosis PT 15.3 H (9.0-12.0) sec INR 1.5 H (<1.2) Sodium (137-145) mmol/L Potassium (3.5-5.1) mmol/L Chloride (98-107) mmol/L Carbon Dioxide (22-30) mmol/L Anion Gap mmol/L BUN (7-17) mg/dL Creatinine (0.52-1.04) mg/dL Est GFR (CKD-EPI)AfAm (>60 ml/min/1.73 sqM) Est GFR (CKD-EPI)NonAf (>60 ml/min/1.73 sqM) Glucose (74-99) mg/dL POC Glucose (mg/dL) 113 H 132 H (75-99) mg/dL POC Glu Distance Learning Administrator ID Shalini Graham Jasmine Calcium (8.4-10.2) mg/dL Phosphorus (2.5-4.5) mg/dL Magnesium (1.6-2.3) mg/dL Total Bilirubin (0.2-1.3) mg/dL AST (14-36) U/L ALT (4-34) U/L Alkaline Phosphatase (38-126) U/L Creatine Kinase (30-135) U/L Troponin I (0.000-0.034) ng/mL Total Protein (6.3-8.2) g/dL Albumin (3.5-5.0) g/dL 10/19/20 10/19/20 10/19/20 Range/Units 06:26 08:34 08:34 WBC 9.9 (3.8-10.6) k/uL RBC 4.41 (3.80-5.40) m/uL Hgb 12.1 (11.4-16.0) gm/dL Hct 40.0 (34.0-46.0) % MCV 90.6 (80.0-100.0) fL MCH 27.5 (25.0-35.0) pg MCHC 30.4 L (31.0-37.0) g/dL RDW 18.2 H (11.5-15.5) % Plt Count 225 (150-450) k/uL MPV 9.9 Neutrophils % 76 % Lymphocytes % 15 % Monocytes % 4 % Eosinophils % 4 % Basophils % 1 % Neutrophils # 7.5 (1.3-7.7) k/uL Lymphocytes # 1.4 (1.0-4.8) k/uL Monocytes # 0.4 (0-1.0) k/uL Eosinophils # 0.4 (0-0.7) k/uL Basophils # 0.1 (0-0.2) k/uL Hypochromasia Marked Anisocytosis Slight PT (9.0-12.0) sec INR (<1.2) Sodium 143 (137-145) mmol/L Potassium 4.2 (3.5-5.1) mmol/L Chloride 114 H (98-107) mmol/L Carbon Dioxide 25 (22-30) mmol/L Anion Gap 4 mmol/L BUN 22 H (7-17) mg/dL Creatinine 0.41 L (0.52-1.04) mg/dL Est GFR (CKD-EPI)AfAm >90 (>60 ml/min/1.73 sqM) Est GFR (CKD-EPI)NonAf >90 (>60 ml/min/1.73 sqM) Glucose 191 H (74-99) mg/dL POC Glucose (mg/dL) 184 H (75-99) mg/dL POC Glu Distance Learning Administrator ID Silvio, Migdalia Calcium 9.1 (8.4-10.2) mg/dL Phosphorus (2.5-4.5) mg/dL Magnesium (1.6-2.3) mg/dL Total Bilirubin 0.5 (0.2-1.3) mg/dL AST 32 (14-36) U/L ALT 33 (4-34) U/L Alkaline Phosphatase 92 (38-126) U/L Creatine Kinase (30-135) U/L Troponin I (0.000-0.034) ng/mL Total Protein 6.0 L (6.3-8.2) g/dL Albumin 2.8 L (3.5-5.0) g/dL 10/19/20 Range/Units 08:34 WBC (3.8-10.6) k/uL RBC (3.80-5.40) m/uL Hgb (11.4-16.0) gm/dL Hct (34.0-46.0) % MCV (80.0-100.0) fL MCH (25.0-35.0) pg MCHC (31.0-37.0) g/dL RDW (11.5-15.5) % Plt Count (150-450) k/uL MPV Neutrophils % % Lymphocytes % % Monocytes % % Eosinophils % % Basophils % % Neutrophils # (1.3-7.7) k/uL Lymphocytes # (1.0-4.8) k/uL Monocytes # (0-1.0) k/uL Eosinophils # (0-0.7) k/uL Basophils # (0-0.2) k/uL Hypochromasia Anisocytosis PT 14.6 H (9.0-12.0) sec INR 1.4 H (<1.2) Sodium (137-145) mmol/L Potassium (3.5-5.1) mmol/L Chloride (98-107) mmol/L Carbon Dioxide (22-30) mmol/L Anion Gap mmol/L BUN (7-17) mg/dL Creatinine (0.52-1.04) mg/dL Est GFR (CKD-EPI)AfAm (>60 ml/min/1.73 sqM) Est GFR (CKD-EPI)NonAf (>60 ml/min/1.73 sqM) Glucose (74-99) mg/dL POC Glucose (mg/dL) (75-99) mg/dL POC Glu Distance Learning Administrator ID Calcium (8.4-10.2) mg/dL Phosphorus (2.5-4.5) mg/dL Magnesium (1.6-2.3) mg/dL Total Bilirubin (0.2-1.3) mg/dL AST (14-36) U/L ALT (4-34) U/L Alkaline Phosphatase (38-126) U/L Creatine Kinase (30-135) U/L Troponin I (0.000-0.034) ng/mL Total Protein (6.3-8.2) g/dL Albumin (3.5-5.0) g/dL - EKG Data -: EKG Interpreted by Me (PG is sinus rhythm 79 SD 284 QRS 86 QTc 509) Disposition Clinical Impression: Dyspnea, Encounter for wound re-check Disposition: ADMITTED IP TO THIS HOSP Condition: Critical Is patient prescribed a controlled substance at d/c from ED?: No
[2020-10-18 04:52] LABS: Anisocytosis Slight; Basophils % (A) 0 %; Eosinophils # (A) 0.3 k/uL (0-0.7); Eosinophils % (A) 3 %; HCT 38.8 % (34.0-46.0); Hypochromasia Slight; Lymphocytes # (A) 1.6 k/uL (1.0-4.8); Lymphocytes % (A) 14 %; MCH 27.3 pg (25.0-35.0); MCV 88.2 fL (80.0-100.0); Mean Platelet Volume 9.7; Monocytes # (A) 0.4 k/uL (0-1.0); Monocytes % (A) 4 %; Neutrophils # (A) 8.7 k/uL (1.3-7.7); Neutrophils % (A) 77 %; Platelet Count 243 k/uL (150-450); RDW 18.7 % (11.5-15.5); WBC 11.3 k/uL (3.8-10.6)
[2020-10-18 05:16] LABS: ALT 25 U/L (4-34); AST 23 U/L (14-36); African American GFR (CKD) >90 (>60 ml/min/1.73 sqM); Albumin 2.7 g/dL (3.5-5.0); Alkaline Phosphatase 134 U/L (38-126); Anion Gap 3 mmol/L; Blood Urea Nitrogen 46 mg/dL (7-17); Calcium 8.3 mg/dL (8.4-10.2); Carbon Dioxide 29 mmol/L (22-30); Chloride 108 mmol/L (98-107); Creatine Kinase 36 U/L (30-135); Glucose 215 mg/dL (74-99); Magnesium 2.3 mg/dL (1.6-2.3); Non-African American GFR(CKD) >90 (>60 ml/min/1.73 sqM); Phosphorus 2.8 mg/dL (2.5-4.5); Potassium 3.7 mmol/L (3.5-5.1); Sodium 140 mmol/L (137-145); Total Bilirubin <0.1 mg/dL (0.2-1.3); Total Protein 5.7 g/dL (6.3-8.2)
[2020-10-18] MEDS: MORPHINE SULFATE 4 MG/ML SYRINGE IV PRN ×2 (06:46→23:16)
[2020-10-18] MEDS ORDERED: IPRATROPIUM-ALBUTEROL 3 ML NEB INHALATION PRN (16:51)
[2020-10-18] MEDS ORDERED: bisacodyL 10 MG SUPP RECTAL PRN (16:51)
[2020-10-18] MEDS ORDERED: MAGNESIUM HYDROXIDE 2,400 MG/10 ML CUP PEG/G-TUBE PRN (16:51)
[2020-10-18] MEDS ORDERED: NA PHOS,M-B/NA PHOS,DI-BA 133 ML ENEMA RECTAL PRN (16:51)
[2020-10-18 17:29] LABS: Glucose,Whole Blood 113 mg/dL (75-99)
[2020-10-18] MEDS: metFORMIN 500 MG TAB PEG/G-TUBE SCH (18:12)
[2020-10-18] MEDS: FUROSEMIDE 40 MG TAB PEG/G-TUBE SCH (18:12)
[2020-10-18] MEDS: LORATADINE 10 MG TAB PEG/G-TUBE SCH (18:13)
[2020-10-18] MEDS: MULTIVITAMINS, THERA LIQUID 237 ML BOTTLE PEG/G-TUBE SCH (18:13)
[2020-10-18] MEDS: SIMETHICONE 40 MG/0.6 ML DROPS 2,000 MG/30 ML BOTTLE PEG/G-TUBE SCH (18:14)
[2020-10-18] MEDS: FERROUS SULFATE ORAL ELIXIR 300 MG/5 ML CUP PEG/G-TUBE SCH (18:14)
[2020-10-18 19:25] LABS: INR 1.5 (<1.2); Prothrombin Time 15.3 sec (9.0-12.0)
[2020-10-18 19:33] LABS: Glucose,Whole Blood 132 mg/dL (75-99)
[2020-10-18] MEDS ORDERED: WARFARIN 5 MG TAB PEG/G-TUBE ONE (20:30)
[2020-10-18] MEDS ORDERED: DIAZEPAM 5 MG/ML 2 ML INJ IVP ONE (22:45)
[2020-10-18] MEDS: DILTIAZEM ORAL 60 MG TAB PEG/G-TUBE SCH (23:13)
[2020-10-18] MEDS: PRAVASTATIN SODIUM 40 MG TAB PO SCH (23:13)
[2020-10-18] MEDS: GABAPENTIN 100 MG CAP PEG/G-TUBE SCH (23:13)
[2020-10-18] MEDS: METOPROLOL TARTRATE 50 MG TAB PEG/G-TUBE SCH (23:15)
[2020-10-18] MEDS: CHOLESTYRAMINE (WITH SUGAR) 4 GM PACKET PEG/G-TUBE SCH (23:15)
[2020-10-18] MEDS: INSULIN DETEMIR (LEVEMIR) 100 UNIT/ML SYR SQ SCH (23:17)
[2020-10-18] MEDS: DOXYCYCLINE 100 MG CAP PEG/G-TUBE SCH (23:38)
--- NOTE | 2020-10-19 05:54 | HP ---
HISTORY AND PHYSICAL HISTORY OF PRESENT ILLNESS: 75-year-old white female with a PEG tube cellulitis and possible infection versus a PEG tube malfunction, admitted for surgical consult. White count is a bit elevated. We will get Infectious Disease here as well as surgery and possibly replace the PEG tube. She has a history of MRSA infection at the PEG tube site. REVIEW OF SYMPTOMS: 14-point review of systems negative except for fatigue and weakness and prior stroke with esophageal dysmobility. ALLERGIES: See old chart. MEDICATIONS: See old chart. PHYSICAL EXAMINATION: Vital signs stable. Afebrile. CARDIOVASCULAR S1, S2. PSYCH she shakes head and give a few answers. LUNGS: Clear. HEMATOLOGY negative Homans'. Fair mood and affect. ASSESSMENT: 1. PEG tube male function. 2. Cellulitis abdomen. 3. Possibly erosion around the PEG tube. 4. Rule out MRSA infection. PROGNOSIS: Guarded. Continue home medicines through the PEG tube as well as IV PEG tube fluids. Prognosis guarded. MMODL / IJN: [id number] /
[2020-10-19 06:27] LABS: Glucose,Whole Blood 184 mg/dL (75-99)
[2020-10-19] MEDS: GABAPENTIN 100 MG CAP PEG/G-TUBE SCH ×3 (07:13→22:14)
[2020-10-19] MEDS: METOPROLOL TARTRATE 50 MG TAB PEG/G-TUBE SCH ×3 (07:13→22:14)
[2020-10-19] MEDS ORDERED: NON FORMULARY DRUG (Liquacel 30 ML) PEG/G-TUBE SCH (08:00)
[2020-10-19] MEDS: levETIRAcetam ORAL SOLN 500 MG/5 ML CUP PEG/G-TUBE SCH (08:57)
[2020-10-19] MEDS: DILTIAZEM ORAL 60 MG TAB PEG/G-TUBE SCH ×3 (08:57→22:14)
[2020-10-19] MEDS: metFORMIN 500 MG TAB PEG/G-TUBE SCH ×2 (08:57→17:27)
[2020-10-19] MEDS: FUROSEMIDE 40 MG TAB PEG/G-TUBE SCH ×2 (08:57→17:27)
[2020-10-19] MEDS: DOXYCYCLINE 100 MG CAP PEG/G-TUBE SCH ×2 (08:57→22:14)
[2020-10-19] MEDS: DRY MOUTH SPRAY 44.3 SPRAY/44.3 ML SPRAY MUCOUS MEM SCH ×2 (08:58→12:00)
[2020-10-19] MEDS: ASPIRIN 81 MG PEG/G-TUBE SCH (08:58)
[2020-10-19] MEDS: SIMETHICONE 40 MG/0.6 ML DROPS 2,000 MG/30 ML BOTTLE PEG/G-TUBE SCH ×2 (08:58→17:27)
[2020-10-19 09:27] LABS: Anisocytosis Slight; Basophils # (A) 0.1 k/uL (0-0.2); Basophils % (A) 1 %; Eosinophils # (A) 0.4 k/uL (0-0.7); Eosinophils % (A) 4 %; HGB 12.1 gm/dL (11.4-16.0); Hypochromasia Marked; Lymphocytes # (A) 1.4 k/uL (1.0-4.8); Lymphocytes % (A) 15 %; MCH 27.5 pg (25.0-35.0); MCHC 30.4 g/dL (31.0-37.0); MCV 90.6 fL (80.0-100.0); Mean Platelet Volume 9.9; Monocytes # (A) 0.4 k/uL (0-1.0); Monocytes % (A) 4 %; Neutrophils # (A) 7.5 k/uL (1.3-7.7); Neutrophils % (A) 76 %; Platelet Count 225 k/uL (150-450); RBC 4.41 m/uL (3.80-5.40); RDW 18.2 % (11.5-15.5); WBC 9.9 k/uL (3.8-10.6)
[2020-10-19 09:32] LABS: INR 1.4 (<1.2)
[2020-10-19 09:33] LABS: Prothrombin Time 14.6 sec (9.0-12.0)
[2020-10-19 09:34] LABS: ALT 33 U/L (4-34); AST 32 U/L (14-36); African American GFR (CKD) >90 (>60 ml/min/1.73 sqM); Albumin 2.8 g/dL (3.5-5.0); Alkaline Phosphatase 92 U/L (38-126); Anion Gap 4 mmol/L; Blood Urea Nitrogen 22 mg/dL (7-17); Calcium 9.1 mg/dL (8.4-10.2); Carbon Dioxide 25 mmol/L (22-30); Chloride 114 mmol/L (98-107); Glucose 191 mg/dL (74-99); Non-African American GFR(CKD) >90 (>60 ml/min/1.73 sqM); Potassium 4.2 mmol/L (3.5-5.1); Sodium 143 mmol/L (137-145); Total Bilirubin 0.5 mg/dL (0.2-1.3)
[2020-10-19 11:50] LABS: Glucose,Whole Blood 204 mg/dL (75-99)
[2020-10-19 12:23] LABS: Appearance,Urine Clear (Clear); Bacteria,Urine Rare /hpf; Bilirubin,Urine Negative (Negative); Blood,Urine Negative (Negative); Color,Urine Light Yellow; Glucose,Urine (UA) Negative (Negative); Ketones,Urine Negative (Negative); Leukocyte Esterase,Urine Small (Negative); Nitrite,Urine Negative (Negative); PH, Urine 6.5 (5.0-8.0); Protein,Urine Negative (Negative); Specific Gravity,Urine 1.009 (1.001-1.035); Squamous Epithelial Cell,Urine <1 /hpf (0-4); Urobilinogen,Urine <2.0 mg/dL (<2.0); WBC,Urine 3 /hpf (0-5)
--- NOTE | 2020-10-19 13:48 | P.GSCN ---
History of Present Illness Consult date: 10/19/20 History of present illness: CHIEF COMPLAINT: PEG tube site infection HISTORY OF PRESENT ILLNESS: This is a 75-year-old female with known history of atrial fibrillation anticoagulated with Coumadin, diabetes mellitus, CVA, dementia, Breast cancer about 15 years ago status post lumpectomy, hypertension and hyperlipidemia. She has a PEG tube placed due to dysphagia from her prior stroke. She had a PEG tube replaced in [place] [address] Brower. Patient presents to the hospital from care home with evidence of cellulitis and infection at the PEG tube site. There is a purulent brownish discharge coming from the PEG tube. Around the PEG tube site in the area appears to be eroded. Patient reports abdominal pain near the PEG tube site. No nausea or vomiting r eported. Afebrile. White count is elevated. Last dose of Coumadin which she takes for her A. fib was given yesterday. PAST MEDICAL HISTORY: See list. PAST SURGICAL HISTORY: See list. MEDICATIONS: See list. ALLERGIES: See list. SOCIAL HISTORY: No illicit drug use. REVIEW OF SYSTEMS: CONSTITUTIONAL: Denies fever or chills. HEENT: Denies blurred vision, vision changes, or eye pain. Denies hemoptysis CARDIOVASCULAR: Denies chest pain or pressure. RESPIRATORY: No shortness of breath. GASTROINTESTINAL: See HPI for pertinent findings HEMATOLOGIC: Denies bleeding disorders. GENITOURINARY: Denies any blood in urine or increased urinary frequency. SKIN: Denies pruitis. Denies rash. PHYSICAL EXAM: VITAL SIGNS: Reviewed GENERAL: Well-developed in no acute distress. HEENT: No sclera icterus. Extraocular movements grossly intact. Moist buccal mucosa. Head is atraumatic, normocephalic. No nasal drainage. ABDOMEN: Soft. Obese. Nondistended. PEG tube site with cellulitis area is eroded there is a purulent discharge NEUROLOGIC: Nonverbal LABORATORY DATA: WBC 11.3 down to 9.9 Hemoglobin 12.1 INR 1.4 creatinine 0.41 Albumin 2.8 IMAGING: ASSESSMENT: 1. Infected PEG tube site PLAN: -Patient scheduled for EGD with PEG tube placement tomorrow with Dr. Brower -Hold tube feedings -No meds through PEG tube at this time -Hold Coumadin -Continue antibiotics Thank you for this consultation Physician Reinforcement Maker note has been reviewed by physician. Signing provider agrees with the documented findings, assessment, and plan of care. Past Medical History Past Medical History: Atrial Fibrillation, Atrial Flutter, Asthma, Cancer, Heart Failure, CVA/TIA, Dementia, Diabetes Mellitus, GERD/Reflux, GI Bleed, Hyperlipidemia, Hypertension, Pneumonia, Sleep Apnea/CPAP/BIPAP Additional Past Medical History / Comment(s): Verified with [employer] papers r/t son Jose Rafael being unsure of history. Jose Rafael states he is also pt's DPOA. 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, post traumatic seizures, History of Any Multi-Drug Resistant Organisms: MRSA Year Discovered:: 08/21/20 MDRO Source:: MRSA URINE Past Surgical History: Breast Surgery, Cardiac Valve Replacement, Heart Catheterization With Stent, Hysterectomy, Orthopedic Surgery, Pacemaker, To nsillectomy Additional Past Surgical History / Comment(s): Peg tube, mechanical mitral valve 2000, polypectomy spinal cord/cyst removed, TEEs, CVNs, colonoscopies, bilateral cataract removal/lens implants, L rotator cuff repair, R femur fracture with IM hip/screw/nail, L breast lumpectomy, Past Anesthesia/Blood Transfusion Reactions: No Reported Reaction Date of Last Stent Placement:: 2006 Type of Cardiac Device: Permanent Pacemaker Device Placement Date:: 2009 Smoking Status: Former smoker - Past Family History Father Family Medical History: GI Bleed Additional Family Medical History / Comment(s): OF BLEEDING ULCER AT AGE 64 Mother Family Medical History: Cancer, CVA/TIA Additional Family Medical History / Comment(s): HX STROKES, COLON CANCER Medications and Allergies Home Medications Medication Instructions Recorded Confirmed Type Pravastatin Sodium [Pravachol] 40 mg PEG/G-TUBE HS@2100 05/20/17 10/18/20 History levETIRAcetam [Keppra Oral 100 mg PEG/G-TUBE DAILY@0800 09/27/17 10/18/20 History Solution] Aspirin 81 mg PEG/G-TUBE DAILY@0800 05/30/18 10/18/20 History Acetaminophen Oral Susp [Tylenol] 640 mg PEG/G-TUBE Q6H PRN 12/25/19 10/18/20 History Multivitamins, Thera Liquid 5 ml PEG/G-TUBE DAILY@1700 12/25/19 10/18/20 History [Theragran Liquid (formulary)] bisacodyL [Dulcolax] 10 mg RECTAL DAILY PRN 12/25/19 10/18/20 History Ipratropium-Albuterol Nebulize 3 ml INHALATION RT-QID PRN 06/11/20 10/18/20 History [Duoneb 0.5 mg-3 mg/3 ml Soln] Na Phos,M-B/Na Phos,Di-Ba [Fleet 133 ml RECTAL DAILY PRN 06/11/20 10/18/20 History Adult] Loratadine [Claritin] 10 mg PEG/G-TUBE DAILY@1700 tab 06/14/20 10/18/20 Rx Furosemide [Lasix] 40 mg PEG/G-TUBE BID@0800,1700 06/24/20 10/18/20 History INSULIN ASPART (NovoLOG) [NovoLOG See Protocol SQ ACHS 06/24/20 10/18/20 History (formulary)] metFORMIN HCL [Glucophage] 500 mg PEG/G-TUBE BID@0800,1700 06/24/20 10/18/20 History Metoprolol Tartrate [Lopressor] 100 mg PEG/G-TUBE 07/15/20 10/18/20 History TID@0600,1400,2200 Gabapentin [Neurontin] 100 mg PEG/G-TUBE 09/15/20 10/18/20 History TID@0600,1400,2100 Liquacel 30 ml PEG/G-TUBE BID@0800,1600 09/15/20 10/18/20 History Simethicone 40 mg PEG/G-TUBE BID@0800,1700 09/15/20 10/18/20 History Biotene Dry Mouth Mouthwash 5 ml MUCOUS MEM TID@0800,1200,1700 10/18/20 10/18/20 History Cholestyramine/Aspartame 4 gm PEG/G-TUBE HS@2200 10/18/20 10/18/20 History [Cholestyramine Light Packet] Diltiazem Oral [Cardizem*] 60 mg PEG/G-TUBE TID 10/18/20 10/18/20 History Doxycycline Hyclate [Vibramycin] 100 mg PEG/G-TUBE BID@0800,2100 10/18/20 10/18/20 History Ferrous Sulfate 330 mg PEG/G-TUBE DAILY@1700 10/18/20 10/18/20 History Insulin Detemir (Levemir) [Levemir] 40 unit SQ HS 10/18/20 10/18/20 History Magnesium Hydroxide [Milk of 7,200 mg PEG/G-TUBE DAILY PRN 10/18/20 10/18/20 History Magnesia Concentrate] Nitroglycerin Sl Tabs [Nitrostat] 0.4 mg SL Q5M PRN 10/18/20 10/18/20 History Warfarin Sodium [Jantoven] 4 mg PEG/G-TUBE DAILY@1700 10/18/20 10/18/20 History Allergies Allergy/AdvReac Type Severity Reaction Status Date / Time ciprofloxacin [From Cipro] Allergy Rash/Hives Verified 10/18/20 07:45 ciprofloxacin HCl Allergy Rash/Hives Verified 10/18/20 07:45 [From Cipro] Quinolones Allergy Unknown Verified 10/18/20 07:45 Surgical - Exam Vital Signs Temp Pulse Resp BP 98.2 F 68 20 134/74 10/18/20 04:00 10/18/20 04:00 10/18/20 04:00 10/18/20 04:00 Results - Labs 10/19/20 08:34 10/19/20 08:34 Abnormal Lab Results - Last 24 Hours (Table) 10/18/20 10/18/20 10/18/20 Range/Units 17:27 18:48 19:31 MCHC (31.0-37.0) g/dL RDW (11.5-15.5) % PT 15.3 H (9.0-12.0) sec INR 1.5 H (<1.2) Chloride (98-107) mmol/L BUN (7-17) mg/dL Creatinine (0.52-1.04) mg/dL Glucose (74-99) mg/dL POC Glucose (mg/dL) 113 H 132 H (75-99) mg/dL Total Protein (6.3-8.2) g/dL Albumin (3.5-5.0) g/dL 10/19/20 10/19/20 10/19/20 Range/Units 06:26 08:34 08:34 MCHC 30.4 L (31.0-37.0) g/dL RDW 18.2 H (11.5-15.5) % PT (9.0-12.0) sec INR (<1.2) Chloride 114 H (98-107) mmol/L BUN 22 H (7-17) mg/dL Creatinine 0.41 L (0.52-1.04) mg/dL Glucose 191 H (74-99) mg/dL POC Glucose (mg/dL) 184 H (75-99) mg/dL Total Protein 6.0 L (6.3-8.2) g/dL Albumin 2.8 L (3.5-5.0) g/dL 10/19/20 Range/Units 08:34 MCHC (31.0-37.0) g/dL RDW (11.5-15.5) % PT 14.6 H (9.0-12.0) sec INR 1.4 H (<1.2) Chloride (98-107) mmol/L BUN (7-17) mg/dL Creatinine (0.52-1.04) mg/dL Glucose (74-99) mg/dL POC Glucose (mg/dL) (75-99) mg/dL Total Protein (6.3-8.2) g/dL Albumin (3.5-5.0) g/dL Microbiology - Last 24 Hours (Table) 10/19/20 06:32 Wound Culture - Preliminary Abdomen Diabetes panel 10/19/20 Range/Units 08:34 Sodium 143 (137-145) mmol/L Potassium 4.2 (3.5-5.1) mmol/L Chloride 114 H (98-107) mmol/L Carbon Dioxide 25 (22-30) mmol/L BUN 22 H (7-17) mg/dL Creatinine 0.41 L (0.52-1.04) mg/dL Glucose 191 H (74-99) mg/dL Calcium 9.1 (8.4-10.2) mg/dL AST 32 (14-36) U/L ALT 33 (4-34) U/L Alkaline Phosphatase 92 (38-126) U/L Total Protein 6.0 L (6.3-8.2) g/dL Albumin 2.8 L (3.5-5.0) g/dL Calcium panel 10/19/20 Range/Units 08:34 Calcium 9.1 (8.4-10.2) mg/dL Albumin 2.8 L (3.5-5.0) g/dL Pituitary panel 10/19/20 Range/Units 08:34 Sodium 143 (137-145) mmol/L Potassium 4.2 (3.5-5.1) mmol/L Chloride 114 H (98-107) mmol/L Carbon Dioxide 25 (22-30) mmol/L BUN 22 H (7-17) mg/dL Creatinine 0.41 L (0.52-1.04) mg/dL Glucose 191 H (74-99) mg/dL Calcium 9.1 (8.4-10.2) mg/dL Adrenal panel 10/19/20 Range/Units 08:34 Sodium 143 (137-145) mmol/L Potassium 4.2 (3.5-5.1) mmol/L Chloride 114 H (98-107) mmol/L Carbon Dioxide 25 (22-30) mmol/L BUN 22 H (7-17) mg/dL Creatinine 0.41 L (0.52-1.04) mg/dL Glucose 191 H (74-99) mg/dL Calcium 9.1 (8.4-10.2) mg/dL Total Bilirubin 0.5 (0.2-1.3) mg/dL AST 32 (14-36) U/L ALT 33 (4-34) U/L Alkaline Phosphatase 92 (38-126) U/L Total Protein 6.0 L (6.3-8.2) g/dL Albumin 2.8 L (3.5-5.0) g/dL
[2020-10-19 16:38] LABS: Glucose,Whole Blood 204 mg/dL (75-99)
[2020-10-19] MEDS: LORATADINE 10 MG TAB PEG/G-TUBE SCH (17:27)
[2020-10-19] MEDS: FERROUS SULFATE ORAL ELIXIR 300 MG/5 ML CUP PEG/G-TUBE SCH (17:27)
[2020-10-19] MEDS: MULTIVITAMINS, THERA LIQUID 237 ML BOTTLE PEG/G-TUBE SCH (17:27)
[2020-10-19 20:21] LABS: Glucose,Whole Blood 193 mg/dL (75-99)
[2020-10-19] MEDS: CHOLESTYRAMINE (WITH SUGAR) 4 GM PACKET PEG/G-TUBE SCH (22:14)
[2020-10-19] MEDS: PRAVASTATIN SODIUM 40 MG TAB PO SCH (22:14)
[2020-10-19] MEDS ORDERED: VANCOMYCIN IV PER PHARMACY 1 EACH MISC MISCELLANE PRN (22:58)
--- NOTE | 2020-10-19 23:02 | P.CONS ---
History of Present Illness - Reason for Consult Consult date: 10/19/20 Peg site cellulitis Requesting physician: Luis A Gomez - Chief Complaint drainage from the peg site x days - History of Present Illness History of present illness : Patient is 75-year female [facility] resident this patient who do have a history of recurrent UTI infection patient did have a PEG tube for feeding patient was sent to the ER yesterday morning for evaluation of wound at the PEG tube site and purulent drainage in this patient who do have a history of dysphagia and did have a PEG tube placed in the past which was recently replaced in June [address] Hanks the patient has been evaluated by the ER physician on arrival to the ER the patient has been afebrile and no fever has been recorded subsequently the patient did have a normal white count with no left shift creatinine has been normal urine was small leukocyte Estrace and 3 WBC local culture has been obtained and the patient has been started on doxycycline for the bacterial infectious disease was consulted for further management of antibiotic therapy most information has been obtained from review the chart and talking nursing staff and the patient has no other provide any history Review of system: Positive point has been mentioned in HPI complete review could not be obtained because of underlying mental status Past medical history : Reviewed, documented below Past surgical history : Reviewed, documented below Social history: Reviewed, documented below Medications: Reviewed, as documented below EXAMINATION: Vital sigans= Reviewed and documented below GENERAL DESCRIPTION: Elderly female lying in bed, no distress. No tachypnea or accessory muscle of respiration use. HEENT: Shows Pallor , no scleral icterus. Oral mucous membrane is dry. NECK: Trachea central, no thyromegaly. LUNGS: Unlabored breathing. Clear to auscultation anteriorly. No wheeze or crackle. HEART: S1, S2, regular rate and rhythm. ABDOMEN: Soft, significant swelling or redness around the PEG tube site which is has eroded through the abdominal wall EXTREMITIES: No edema of feet. SKIN: No rash, no masses palpable. NEUROLOGICAL: The patient is lethargic orientation could not be determined LABS AND RADIOLOGY: Reviewed results see below Assessment : Patient presented to hospital with significant inflammation and erosion of the PEG tube to the abdominal wall with surrounding cellulitis and purulent drainage will need to cover for both enteric gram-negative as well as gram-positive bo as the patient has previously grown MRSA Plan: 1-discontinue doxycycline 2-vancomycin pharmacy to dose her with a target trough of 15 while watching her kidney function and Vanco trough closely. 3-Unasyn 3 g every 6 hours 4-patient scheduled for replacement of the PEG tube by surgery tomorrow We will follow on clinical condition and cultures to further adjust medication if needed Thank you for this consultation we will follow the patient along with you Past Medical History Past Medical History: Atrial Fibrillation, Atrial Flutter, Asthma, Cancer, Heart Failure, CVA/TIA, Dementia, Diabetes Mellitus, GERD/Reflux, GI Bleed, Hyperlipidemia, Hypertension, Pneumonia, Sleep Apnea/CPAP/BIPAP Additional Past Medical History / Comment(s): Verified with [employer] papers r/t son Jose Rafael being unsure of history. Jose Rafael states he is also pt's DPOA. 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, post traumatic seizures, History of Any Multi-Drug Resistant Organisms: MRSA Year Discovered:: 08/21/20 MDRO Source:: MRSA URINE Past Surgical History: Breast Surgery, Cardiac Valve Replacement, Heart Catheterization With Stent, Hysterectomy, Orthopedic Surgery, Pacemaker, Tonsill ectomy Additional Past Surgical History / Comment(s): Peg tube, mechanical mitral valve 2000, polypectomy spinal cord/cyst removed, TEEs, CVNs, colonoscopies, bilateral cataract removal/lens implants, L rotator cuff repair, R femur fracture with IM hip/screw/nail, L breast lumpectomy, Past Anesthesia/Blood Transfusion Reactions: No Reported Reaction Date of Last Stent Placement:: 2006 Type of Cardiac Device: Permanent Pacemaker Device Placement Date:: 2009 Smoking Status: Former smoker - Past Family History Father Family Medical History: GI Bleed Additional Family Medical History / Comment(s): OF BLEEDING ULCER AT AGE 64 Mother Family Medical History: Cancer, CVA/TIA Additional Family Medical History / Comment(s): HX STROKES, COLON CANCER Medications and Allergies Home Medications Medication Instructions Recorded Confirmed Type Pravastatin Sodium [Pravachol] 40 mg PEG/G-TUBE HS@2100 05/20/17 10/18/20 History levETIRAcetam [Keppra Oral 100 mg PEG/G-TUBE DAILY@0800 09/27/17 10/18/20 History Solution] Aspirin 81 mg PEG/G-TUBE DAILY@0800 05/30/18 10/18/20 History Acetaminophen Oral Susp [Tylenol] 640 mg PEG/G-TUBE Q6H PRN 12/25/19 10/18/20 History Multivitamins, Thera Liquid 5 ml PEG/G-TUBE DAILY@1700 12/25/19 10/18/20 History [Theragran Liquid (formulary)] bisacodyL [Dulcolax] 10 mg RECTAL DAILY PRN 12/25/19 10/18/20 History Ipratropium-Albuterol Nebulize 3 ml INHALATION RT-QID PRN 06/11/20 10/18/20 History [Duoneb 0.5 mg-3 mg/3 ml Soln] Na Phos,M-B/Na Phos,Di-Ba [Fleet 133 ml RECTAL DAILY PRN 06/11/20 10/18/20 History Adult] Loratadine [Claritin] 10 mg PEG/G-TUBE DAILY@1700 tab 06/14/20 10/18/20 Rx Furosemide [Lasix] 40 mg PEG/G-TUBE BID@0800,1700 06/24/20 10/18/20 History INSULIN ASPART (NovoLOG) [NovoLOG See Protocol SQ ACHS 06/24/20 10/18/20 History (formulary)] metFORMIN HCL [Glucophage] 500 mg PEG/G-TUBE BID@0800,1700 06/24/20 10/18/20 History Metoprolol Tartrate [Lopressor] 100 mg PEG/G-TUBE 07/15/20 10/18/20 History TID@0600,1400,2200 Gabapentin [Neurontin] 100 mg PEG/G-TUBE 09/15/20 10/18/20 History TID@0600,1400,2100 Liquacel 30 ml PEG/G-TUBE BID@0800,1600 09/15/20 10/18/20 History Simethicone 40 mg PEG/G-TUBE BID@0800,1700 09/15/20 10/18/20 History Biotene Dry Mouth Mouthwash 5 ml MUCOUS MEM TID@0800,1200,1700 10/18/20 10/18/20 History Cholestyramine/Aspartame 4 gm PEG/G-TUBE HS@2200 10/18/20 10/18/20 History [Cholestyramine Light Packet] Diltiazem Oral [Cardizem*] 60 mg PEG/G-TUBE TID 10/18/20 10/18/20 History Doxycycline Hyclate [Vibramycin] 100 mg PEG/G-TUBE BID@0800,2100 10/18/20 10/18/20 History Ferrous Sulfate 330 mg PEG/G-TUBE DAILY@1700 10/18/20 10/18/20 History Insulin Detemir (Levemir) [Levemir] 40 unit SQ HS 10/18/20 10/18/20 History Magnesium Hydroxide [Milk of 7,200 mg PEG/G-TUBE DAILY PRN 10/18/20 10/18/20 History Magnesia Concentrate] Nitroglycerin Sl Tabs [Nitrostat] 0.4 mg SL Q5M PRN 10/18/20 10/18/20 History Warfarin Sodium [Jantoven] 4 mg PEG/G-TUBE DAILY@1700 10/18/20 10/18/20 History Allergies Allergy/AdvReac Type Severity Reaction Status Date / Time ciprofloxacin [From Cipro] Allergy Rash/Hives Verified 10/18/20 07:45 ciprofloxacin HCl Allergy Rash/Hives Verified 10/18/20 07:45 [From Cipro] Quinolones Allergy Unknown Verified 10/18/20 07:45 Physical Exam Vitals: Vital Signs Temp Pulse Resp BP Pulse Ox 10/19/20 14:00 70 10/19/20 12:00 98.0 F 64 20 117/56 99 10/19/20 08:00 98.5 F 72 20 142/63 98 10/19/20 04:00 70 20 104/52 97 10/19/20 02:00 78 10/19/20 00:00 97.8 F 82 18 110/70 98 10/18/20 20:00 98.9 F 78 18 130/54 100 10/18/20 18:03 98.0 F 76 18 107/71 99 10/18/20 17:54 76 Intake and Output 10/19/20 10/19/20 10/19/20 06:59 14:59 22:59 Output Total 150 Balance -150 Output: Urine 150 Other: Voiding Method External Catheter External Catheter Weight 97.522 kg Results CBC & Chem 7: 10/19/20 08:34 10/19/20 08:34 Labs: Abnormal Lab Results - Last 24 Hours (Table) 10/18/20 10/18/20 10/18/20 Range/Units 17:27 18:48 19:31 MCHC (31.0-37.0) g/dL RDW (11.5-15.5) % PT 15.3 H (9.0-12.0) sec INR 1.5 H (<1.2) Chloride (98-107) mmol/L BUN (7-17) mg/dL Creatinine (0.52-1.04) mg/dL Glucose (74-99) mg/dL POC Glucose (mg/dL) 113 H 132 H (75-99) mg/dL Total Protein (6.3-8.2) g/dL Albumin (3.5-5.0) g/dL Ur Leukocyte Esterase (Negative) Urine Bacteria (None) /hpf 10/19/20 10/19/20 10/19/20 Range/Units 06:26 08:34 08:34 MCHC 30.4 L (31.0-37.0) g/dL RDW 18.2 H (11.5-15.5) % PT (9.0-12.0) sec INR (<1.2) Chloride 114 H (98-107) mmol/L BUN 22 H (7-17) mg/dL Creatinine 0.41 L (0.52-1.04) mg/dL Glucose 191 H (74-99) mg/dL POC Glucose (mg/dL) 184 H (75-99) mg/dL Total Protein 6.0 L (6.3-8.2) g/dL Albumin 2.8 L (3.5-5.0) g/dL Ur Leukocyte Esterase (Negative) Urine Bacteria (None) /hpf 10/19/20 10/19/20 10/19/20 Range/Units 08:34 11:00 11:44 MCHC (31.0-37.0) g/dL RDW (11.5-15.5) % PT 14.6 H (9.0-12.0) sec INR 1.4 H (<1.2) Chloride (98-107) mmol/L BUN (7-17) mg/dL Creatinine (0.52-1.04) mg/dL Glucose (74-99) mg/dL POC Glucose (mg/dL) 204 H (75-99) mg/dL Total Protein (6.3-8.2) g/dL Albumin (3.5-5.0) g/dL Ur Leukocyte Esterase Small H (Negative) Urine Bacteria Rare H (None) /hpf Microbiology - Last 24 Hours (Table) 10/19/20 06:32 Wound Culture - Preliminary Abdomen
[2020-10-19] MEDS ORDERED: VANCOMYCIN 1,500 MG in SODIUM CHLORIDE 0.9% 250 ML IVPB ONE (23:15)
[2020-10-20] MEDS: AMPICILLIN-SULBACTAM 3 GM in SODIUM CHLORIDE 0.9% 100 ML IVPB SCH ×4 (01:58→22:03)
[2020-10-20] MEDS: INSULIN DETEMIR (LEVEMIR) 100 UNIT/ML SYR SQ SCH ×2 (02:06→22:05)
[2020-10-20] MEDS ORDERED: VANCOMYCIN 1,500 MG in SODIUM CHLORIDE 0.9% 250 ML IVPB ONE (02:30)
[2020-10-20 04:49] LABS: Anisocytosis Slight; Basophils % (A) 0 %; Eosinophils # (A) 0.2 k/uL (0-0.7); Eosinophils % (A) 3 %; HCT 39.4 % (34.0-46.0); HGB 12.1 gm/dL (11.4-16.0); Hypochromasia Moderate; Lymphocytes # (A) 1.5 k/uL (1.0-4.8); Lymphocytes % (A) 17 %; MCH 27.5 pg (25.0-35.0); MCHC 30.7 g/dL (31.0-37.0); MCV 89.6 fL (80.0-100.0); Mean Platelet Volume 9.7; Monocytes # (A) 0.3 k/uL (0-1.0); Monocytes % (A) 4 %; Neutrophils # (A) 6.4 k/uL (1.3-7.7); Neutrophils % (A) 74 %; Platelet Count 243 k/uL (150-450); RDW 18.4 % (11.5-15.5); WBC 8.7 k/uL (3.8-10.6)
[2020-10-20 05:00] LABS: Magnesium 2.2 mg/dL (1.6-2.3); Potassium 4.3 mmol/L (3.5-5.1)
--- NOTE | 2020-10-20 05:00 | PN ---
PROGRESS NOTE 75-year-old white female came to the hospital with infected PEG tube site. She is going to get EGD with next PEG tube replacement tomorrow with Dr. Brower, going to hold her pills and tube feedings. Hold Coumadin. Continue broad-spectrum antibiotics. Wait for Dr. Chavira recommendations. Psych: Fair mood and affect. Cardiovascular S1, S2. Lungs clear. GI soft. Integument no edema. PLAN: Hold Coumadin. EGD done tomorrow with a new PEG tube. Wait for Dr. Chavira's recommendations on antibiotics. MMODL / IJN: [id number] /
[2020-10-20 05:07] LABS: INR 1.6 (<1.2)
[2020-10-20] MEDS: METOPROLOL TARTRATE 50 MG TAB PEG/G-TUBE SCH ×3 (05:34→22:03)
[2020-10-20] MEDS: GABAPENTIN 100 MG CAP PEG/G-TUBE SCH ×3 (05:34→22:03)
[2020-10-20 06:25] LABS: Glucose,Whole Blood 213 mg/dL (75-99)
[2020-10-20 06:36] LABS: African American GFR (CKD) >90 (>60 ml/min/1.73 sqM); Blood Urea Nitrogen 20 mg/dL (7-17); Carbon Dioxide 27 mmol/L (22-30); Chloride 112 mmol/L (98-107); Glucose 198 mg/dL (74-99); Non-African American GFR(CKD) >90 (>60 ml/min/1.73 sqM); Sodium 144 mmol/L (137-145)
[2020-10-20] MEDS: ASPIRIN 81 MG PEG/G-TUBE SCH (07:29)
[2020-10-20] MEDS: FUROSEMIDE 40 MG TAB PEG/G-TUBE SCH ×2 (07:29→16:31)
[2020-10-20] MEDS: levETIRAcetam ORAL SOLN 500 MG/5 ML CUP PEG/G-TUBE SCH (07:29)
[2020-10-20] MEDS: SIMETHICONE 40 MG/0.6 ML DROPS 2,000 MG/30 ML BOTTLE PEG/G-TUBE SCH ×2 (07:30→16:31)
[2020-10-20] MEDS: DILTIAZEM ORAL 60 MG TAB PEG/G-TUBE SCH ×3 (07:30→22:03)
[2020-10-20] MEDS: metFORMIN 500 MG TAB PEG/G-TUBE SCH ×2 (07:30→15:47)
[2020-10-20] MEDS: DRY MOUTH SPRAY 44.3 SPRAY/44.3 ML SPRAY MUCOUS MEM SCH ×3 (10:34→16:31)
[2020-10-20 11:57] LABS: Glucose,Whole Blood 198 mg/dL (75-99)
[2020-10-20] MEDS ORDERED: KETAMINE 10 MG/ML 20 ML VIAL ONE (12:33)
[2020-10-20] MEDS ORDERED: ESMOLOL 100 MG/10 ML VIAL ONE (12:33)
[2020-10-20] MEDS ORDERED: PROPOFOL 10 MG/ML 20 ML VIAL IV ONE (12:33)
[2020-10-20] MEDS ORDERED: SODIUM CHLORIDE 0.9% 500 ML 500 ML IV ONE (12:37)
--- NOTE | 2020-10-20 12:54 | P.OP ---
Date of Procedure: 10/20/20 Preoperative Diagnosis: Malnutrition Postoperative Diagnosis: Malnutrition Procedure(s) Performed: EGD with PEG tube placement Anesthesia: MAC Surgeon: Marco A Brower Estimated Blood Loss (ml): 5 Pathology: none sent Condition: stable Disposition: PACU Description of Procedure: The patient's placed on the endoscopy table in the lateral position. She received IV sedation. The gastro-/oropharynx patient was then rotated in supine position. The patient's old PEG tube was removed. There was significant erosion of the PEG tube site. This point the scope was placed and stomach. A suitable light reflux in the anterior abdominal wall. The needles placed and stomach under direct visualization the needle was snared. The wire was then placed in the upper the wire was snared and the PEG tube placed overtop the wire and brought down to the stomach. The PEG tube was secured at the 3 cm jose alberto. Patient top she will she was sent back to the floor stable condition.
[2020-10-20] MEDS ORDERED: VANCOMYCIN 1,500 MG in SODIUM CHLORIDE 0.9% 250 ML IVPB SCH (15:00)
[2020-10-20] MEDS ORDERED: FLUCONAZOLE IN NACL,ISO-OSM 200 MG in SALINE 1 200ML.BAG IVPB STA (15:51)
--- NOTE | 2020-10-20 16:28 | PN ---
PROGRESS NOTE DATE OF SERVICE: 10/20/2020. REASON FOR FOLLOW UP: Infected PEG tube with surrounding cellulitis. INTERVAL HISTORY: Patient is status post EGD, placement of another PEG tube. The patient is currently now unable to provide any history. No vomiting, diarrhea, or other changes reported by the nursing staff. PHYSICAL EXAMINATION: Blood pressure 152/97, pulse of 79, temperature is 97.9. She is 98% on room air. General description is an elderly female lying in bed in no distress. Respiratory system: Unlabored breathing, clear to auscultation anteriorly. Heart S1, S2. Regular rate and rhythm. Abdomen: Soft. No tenderness. LABS: Hemoglobin is 12.5, white count 8.7, BUN of 20, creatinine 0.45. Abdominal cultures with Hannah albicans. DIAGNOSTIC IMPRESSION AND PLAN: Patient with abdominal wall cellulitis, PEG tube infection, culture showing Hannah with MRSA. Vancomycin will be discontinued. Continue Unasyn, add Diflucan and monitor clinical course closely. MMODL / IJN: [id number] /
[2020-10-20] MEDS: LORATADINE 10 MG TAB PEG/G-TUBE SCH (16:30)
[2020-10-20] MEDS: FERROUS SULFATE ORAL ELIXIR 300 MG/5 ML CUP PEG/G-TUBE SCH (16:31)
[2020-10-20] MEDS: MULTIVITAMINS, THERA LIQUID 237 ML BOTTLE PEG/G-TUBE SCH (16:31)
[2020-10-20 16:45] LABS: Glucose,Whole Blood 272 mg/dL (75-99)
[2020-10-20] MEDS: INSULIN ASPART (NovoLOG) 100 UNIT/ML VIAL SQ SCH ×2 (19:07→22:05)
[2020-10-20 20:31] LABS: Glucose,Whole Blood 255 mg/dL (75-99)
[2020-10-20] MEDS: PRAVASTATIN SODIUM 40 MG TAB PO SCH (22:03)
[2020-10-20] MEDS: CHOLESTYRAMINE (WITH SUGAR) 4 GM PACKET PEG/G-TUBE SCH (22:04)
[2020-10-21] MEDS: AMPICILLIN-SULBACTAM 3 GM in SODIUM CHLORIDE 0.9% 100 ML IVPB SCH ×5 (01:59→23:57)
[2020-10-21 06:23] LABS: Glucose,Whole Blood 358 mg/dL (75-99)
[2020-10-21] MEDS: METOPROLOL TARTRATE 50 MG TAB PEG/G-TUBE SCH ×3 (06:55→21:37)
[2020-10-21] MEDS: GABAPENTIN 100 MG CAP PEG/G-TUBE SCH ×3 (06:55→21:37)
[2020-10-21] MEDS: INSULIN ASPART (NovoLOG) 100 UNIT/ML VIAL SQ SCH ×4 (06:56→21:40)
[2020-10-21 08:24] LABS: Anisocytosis Slight; Basophils % (A) 0 %; Eosinophils # (A) 0.1 k/uL (0-0.7); Eosinophils % (A) 1 %; HCT 33.5 % (34.0-46.0); HGB 10.2 gm/dL (11.4-16.0); Hypochromasia Marked; Lymphocytes # (A) 1.7 k/uL (1.0-4.8); Lymphocytes % (A) 13 %; MCH 27.7 pg (25.0-35.0); MCHC 30.4 g/dL (31.0-37.0); MCV 91.2 fL (80.0-100.0); Mean Platelet Volume 10.1; Monocytes # (A) 0.5 k/uL (0-1.0); Monocytes % (A) 4 %; Neutrophils # (A) 10.8 k/uL (1.3-7.7); Neutrophils % (A) 82 %; Platelet Count 287 k/uL (150-450); RBC 3.67 m/uL (3.80-5.40); RDW 18.5 % (11.5-15.5); WBC 13.2 k/uL (3.8-10.6)
[2020-10-21 08:37] LABS: ALT 23 U/L (4-34); AST 23 U/L (14-36); African American GFR (CKD) >90 (>60 ml/min/1.73 sqM); Albumin 2.4 g/dL (3.5-5.0); Alkaline Phosphatase 66 U/L (38-126); Anion Gap 9 mmol/L; Blood Urea Nitrogen 50 mg/dL (7-17); Calcium 8.6 mg/dL (8.4-10.2); Carbon Dioxide 20 mmol/L (22-30); Chloride 114 mmol/L (98-107); Glucose 383 mg/dL (74-99); Non-African American GFR(CKD) >90 (>60 ml/min/1.73 sqM); Potassium 4.6 mmol/L (3.5-5.1); Sodium 143 mmol/L (137-145); Total Bilirubin 0.4 mg/dL (0.2-1.3); Total Protein 5.3 g/dL (6.3-8.2)
--- NOTE | 2020-10-21 09:11 | PN ---
PROGRESS NOTE Infected PEG tube with surrounding cellulitis. Placement of another PEG tube was done today. Blood pressure 150s over 90s, pulse 70s, temperature 97.9, 98% on room air. Respiratory is clear. Heart: S1, S2. Abdomen is soft. Hemoglobin is 12.5, white count is 8.7, BUN is 20, creatinine 0.45. Abdominal cultures show Hannah albicans. Patient with abdominal wall cellulitis, PEG tube infection, Hannah with MRSA. Vancomycin will be discontinued. Continue Unasyn and Diflucan. Will determine long-term antibiotics depending on cultures. Monitor electrolytes. MMODL / IJN: [id number] /
[2020-10-21] MEDS: MULTIVITAMINS, THERA LIQUID 237 ML BOTTLE PEG/G-TUBE SCH ×2 (09:14→17:13)
[2020-10-21] MEDS: ASPIRIN 81 MG PEG/G-TUBE SCH (09:14)
[2020-10-21] MEDS: levETIRAcetam ORAL SOLN 500 MG/5 ML CUP PEG/G-TUBE SCH (09:15)
[2020-10-21 09:16] LABS: INR 1.8 (<1.2); Prothrombin Time 17.4 sec (9.0-12.0)
[2020-10-21] MEDS: DRY MOUTH SPRAY 44.3 SPRAY/44.3 ML SPRAY MUCOUS MEM SCH ×3 (09:17→17:19)
[2020-10-21] MEDS: SODIUM CHLORIDE 0.9% 1,000 ML IV SCH ×2 (09:18→21:37)
[2020-10-21] MEDS: SIMETHICONE 40 MG/0.6 ML DROPS 2,000 MG/30 ML BOTTLE PEG/G-TUBE SCH ×2 (09:18→17:14)
[2020-10-21] MEDS: metFORMIN 500 MG TAB PEG/G-TUBE SCH ×2 (09:18→17:13)
[2020-10-21] MEDS: DILTIAZEM ORAL 60 MG TAB PEG/G-TUBE SCH ×3 (10:23→21:37)
[2020-10-21] MEDS: FUROSEMIDE 40 MG TAB PEG/G-TUBE SCH ×2 (10:23→17:13)
--- NOTE | 2020-10-21 11:34 | P.CRDCN ---
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 Brower, chronic respiratory failure status post trach. Patient has not been seen in the office since 2018, used to Dr. Craig. We have been asked to see the patient in consultation for tachycardia. Patient presents to the emergency department from skilled nursing with evidence of cellulitis and infection at the PEG tube site. She underwent PEG tube replacement with Dr. Brower 10/20/20. Unclear when patient's last dose of coumadin was started, On admission patient's INR was subtherapeutic at 1.5. Per nursing overnight patient was found to be tachycardic heart rate in the 120s, HR improved, however, patient continued to be tachycardic in the 120s, and was then paced. This morning patient appears to be in atrial fibrillation with rapid ventricular response HR 120s. She did miss 3 doses of her metoprolol and cardizem prior to her procedure. On examination this morning patient is in sinus mechanism HR is now in the 90s. EKG: Sinus tachycardia, HR [address]-T wave abnormalities Telemetry reviewed: patient with episodes of atrial fibrillation with RVR but patient appears to be back in sinus mechanism Laboratory data: WBC 13.2, hemoglobin 10.2, platelets 287, INR 1.8, sodium 143, potassium 4.6, BUN 50, serum creatinine 0.4 Current home cardiac medications include Coumadin 4 mg nightly, statin 40 mg nightly, Lopressor 100 mg 3 times a day, Lasix 40 mg twice a day, Cardizem 60 mg 3 times a day, aspirin 81 mg daily Most recent echocardiogram obtained in June 2020 revealed ejection fraction 55- 60%. Mechanical mitral valve noted. Mild tricuspid regurgitation. Mild pulmonary hypertension. REVIEW OF SYSTEMS: Unable to obtain thorough review of systems secondary to altered mental status PHYSICAL EXAM: VITAL SIGNS: Reviewed. GENERAL: In no acute distres HEENT: Head is normocephalic. Pupils are equal, round. Sclerae anicteric. Mucous membranes of the mouth are moist. Neck supple. No JVD or thyromegaly LUNGS: Respirations even and unlabored. Lungs essentially clear to auscultation bilaterally. HEART: Irregular ate and rhythm. S1 and S2 heard. Mitral valve click noted ABDOMEN: Soft. Nondistended. Nontender. EXTREMITIES: Normal range of motion. No clubbing or cyanosis. Peripheral pulses intact. non pitting bilateral arm edema. NEUROLOGIC: Patient is awake, not oriented. ASSESSMENT: Paroxysmal atrial fibrillation with RVR on coumadin PEG Tube replacement on 10/20 Hypertension Rheumatic mitral stenosis status post mechanical valve placement 2000 Sick sinus syndrome with history of pacemaker insertion History of CVA with left-sided paralysis History of dysphagia with PEG tube placement PLAN: No need to repeat echocardiogram as this was performed in June 2020 Resume home cardiac medications, patient is currently stable, in sinus mechanism rates controlled. Per General surgery, ok to restart coumadin today. Coumadin restarted Monitor INR We will follow the patient as needed. Please reconsult if needed. Nurse practitioner note has been reviewed by physician. Signing provider agrees with the documented findings, assessment, and plan of care. Past Medical History Past Medical History: Atrial Fibrillation, Atrial Flutter, Asthma, Cancer, Heart Failure, CVA/TIA, Dementia, Diabetes Mellitus, GERD/Reflux, GI Bleed, Hyperlipid emia, Hypertension, Pneumonia, Sleep Apnea/CPAP/BIPAP Additional Past Medical History / Comment(s): Verified with [employer] papers r/t son Jose Rafael being unsure of history. Jose Rafael states he is also pt's DPOA. 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, post traumatic seizures, History of Any Multi-Drug Resistant Organisms: MRSA Date of last positivie culture/infection: 08/21/20 MDRO Source:: MRSA URINE Past Surgical History: Breast Surgery, Cardiac Valve Replacement, Heart Catheterization With Stent, Hysterectomy, Orthopedic Surgery, Pacemaker, Tonsillectomy Additional Past Surgical History / Comment(s): Peg tube, mechanical mitral valve 2000, polypectomy spinal cord/cyst removed, TEEs, CVNs, colonoscopies, bilateral cataract removal/lens implants, L rotator cuff repair, R femur fracture with IM hip/screw/nail, L breast lumpectomy, Past Anesthesia/Blood Transfusion Reactions: No Reported Reaction Date of Last Stent Placement:: 2006 Type of Cardiac Device: Permanent Pacemaker Device Placement Date:: 2009 Smoking Status: Former smoker - Past Family History Father Family Medical History: GI Bleed Additional Family Medical History / Comment(s): OF BLEEDING ULCER AT AGE 64 Mother Family Medical History: Cancer, CVA/TIA Additional Family Medical History / Comment(s): HX STROKES, COLON CANCER Medications and Allergies Home Medications Medication Instructions Recorded Confirmed Type Pravastatin Sodium [Pravachol] 40 mg PEG/G-TUBE HS@2100 05/20/17 10/18/20 His tory levETIRAcetam [Keppra Oral 100 mg PEG/G-TUBE DAILY@0800 09/27/17 10/18/20 History Solution] Aspirin 81 mg PEG/G-TUBE DAILY@0800 05/30/18 10/18/20 History Acetaminophen Oral Susp [Tylenol] 640 mg PEG/G-TUBE Q6H PRN 12/25/19 10/18/20 History Multivitamins, Thera Liquid 5 ml PEG/G-TUBE DAILY@1700 12/25/19 10/18/20 History [Theragran Liquid (formulary)] bisacodyL [Dulcolax] 10 mg RECTAL DAILY PRN 12/25/19 10/18/20 History Ipratropium-Albuterol Nebulize 3 ml INHALATION RT-QID PRN 06/11/20 10/18/20 History [Duoneb 0.5 mg-3 mg/3 ml Soln] Na Phos,M-B/Na Phos,Di-Ba [Fleet 133 ml RECTAL DAILY PRN 06/11/20 10/18/20 History Adult] Loratadine [Claritin] 10 mg PEG/G-TUBE DAILY@1700 tab 06/14/20 10/18/20 Rx Furosemide [Lasix] 40 mg PEG/G-TUBE BID@0800,1700 06/24/20 10/18/20 History INSULIN ASPART (NovoLOG) [NovoLOG See Protocol SQ ACHS 06/24/20 10/18/20 History (formulary)] metFORMIN HCL [Glucophage] 500 mg PEG/G-TUBE BID@0800,1700 06/24/20 10/18/20 History Metoprolol Tartrate [Lopressor] 100 mg PEG/G-TUBE 07/15/20 10/18/20 History TID@0600,1400,2200 Gabapentin [Neurontin] 100 mg PEG/G-TUBE 09/15/20 10/18/20 History TID@0600,1400,2100 Liquacel 30 ml PEG/G-TUBE BID@0800,1600 09/15/20 10/18/20 History Simethicone 40 mg PEG/G-TUBE BID@0800,1700 09/15/20 10/18/20 History Biotene Dry Mouth Mouthwash 5 ml MUCOUS MEM TID@0800,1200,1700 10/18/20 10/18/20 History Cholestyramine/Aspartame 4 gm PEG/G-TUBE HS@2200 10/18/20 10/18/20 History [Cholestyramine Light Packet] Diltiazem Oral [Cardizem*] 60 mg PEG/G-TUBE TID 10/18/20 10/18/20 History Doxycycline Hyclate [Vibramycin] 100 mg PEG/G-TUBE BID@0800,2100 10/18/20 0 10/18/20 History Ferrous Sulfate 330 mg PEG/G-TUBE DAILY@169910/18/20 10/18/20 History Insulin Detemir (Levemir) [Levemir] 40 unit SQ HS 10/18/20 10/18/20 History Magnesium Hydroxide [Milk of 7,200 mg PEG/G-TUBE DAILY PRN 10/18/20 10/18/20 History Magnesia Concentrate] Nitroglycerin Sl Tabs [Nitrostat] 0.4 mg SL Q5M PRN 10/18/20 10/18/20 History Warfarin Sodium [Jantoven] 4 mg PEG/G-TUBE DAILY@0 10/18/20 10/18/20 History Allergies Allergy/AdvReac Type Severity Reaction Status Date / Time ciprofloxacin [From Cipro] Allergy Rash/Hives Verified 10/18/20 07:45 ciprofloxacin HCl Allergy Rash/Hives Verified 10/18/20 07:45 [From Cipro] Quinolones Allergy Unknown Verified 10/18/20 07:45 Physical Exam Vitals: Vital Signs Temp Pulse Resp BP Pulse Ox 10/21/20 09:30 124 H 96/59 10/21/20 08:24 98.0 F 114 H 18 81/52 99 10/21/20 04:00 98.8 F 83 145/68 10/21/20 03:00 63 10/21/20 02:12 142 H 10/21/20 02:00 18 10/21/20 00:00 98.9 F 124 H 18 133/83 96 10/20/20 23:14 138 H 10/20/20 20:00 97.5 F L 63 18 128/72 97 10/20/20 16:00 97.1 F L 101 H 18 125/73 96 10/20/20 15:30 106 H 17 145/84 96 10/20/20 15:00 106 H 17 131/74 97 10/20/20 14:00 91 18 139/71 96 10/20/20 13:43 91 17 10/20/20 13:30 97.2 F L 91 17 155/92 97 10/20/20 12:00 97.2 F L 91 18 136/78 98 Intake and Output 10/20/20 10/21/20 10/21/20 22:59 06:59 14:59 Output Total 900 1300 Balance -900 -1300 Output: Urine 900 1300 Other: Voiding Method External Catheter External Catheter Results 10/21/20 07:47 10/21/20 07:47 Cardiac Enzymes 10/21/20 Range/Units 07:47 AST 23 (14-36) U/L Coagulation 10/21/20 Range/Units 07:47 PT 17.4 H (9.0-12.0) sec CBC 10/21/20 Range/Units 07:47 WBC 13.2 H (3.8-10.6) k/uL RBC 3.67 L (3.80-5.40) m/uL Hgb 10.2 L (11.4-16.0) gm/dL Hct 33.5 L (34.0-46.0) % Plt Count 287 (150-450) k/uL Comprehensive Metabolic Panel 10/21/20 Range/Units 07:47 Sodium 143 (137-145) mmol/L Potassium 4.6 (3.5-5.1) mmol/L Chloride 114 H (98-107) mmol/L Carbon Dioxide 20 L (22-30) mmol/L BUN 50 H (7-17) mg/dL Creatinine 0.48 L (0.52-1.04) mg/dL Glucose 383 H (74-99) mg/dL Calcium 8.6 (8.4-10.2) mg/dL AST 23 (14-36) U/L ALT 23 (4-34) U/L Alkaline Phosphatase 66 (38-126) U/L Total Protein 5.3 L (6.3-8.2) g/dL Albumin 2.4 L (3.5-5.0) g/dL Current Medications Generic Name Dose Route Start Last Admin Trade Name Freq PRN Reason Stop Dose Admin Acetaminophen 640 mg 10/18/20 16:51 Acetaminophen Oral Susp (Peds) 3,840 Mg/120 Ml Bottle PEG/G-TUBE Q6H PRN Pain Albuterol/Ipratropium 3 ml 10/18/20 16:51 Ipratropium-Albuterol 3 Ml Neb INHALATION RT-QID PRN Shortness Of Breath Aspirin 81 mg 10/19/20 08:00 10/21/20 09:14 Aspirin 81 Mg PEG/G-TUBE 81 mg DAILY@0800 JM Administration Bisacodyl 10 mg 10/18/20 16:51 Bisacodyl 10 Mg Supp RECTAL DAILY PRN Constipation Cholestyramine Resin 4 gm 10/18/20 22:00 10/20/20 22:04 Cholestyramine (With Sugar) 4 Gm Packet PEG/G-TUBE 4 gm HS@2200 JM Administration Diltiazem HCl 60 mg 10/18/20 22:00 10/21/20 10:23 Diltiazem Oral 60 Mg Tab PEG/G-TUBE 60 mg TID JM Administration Ferrous Sulfate 300 mg 10/18/20 17:45 10/20/20 16:31 Ferrous Sulfate Oral Elixir 300 Mg/5 Ml Cup PEG/G-TUBE 300 mg DAILY@1700 JM Administration Furosemide 40 mg 10/18/20 17:30 10/21/20 10:23 Furosemide 40 Mg Tab PEG/G-TUBE 40 mg BID@0800,1700 JM Administration Gabapentin 100 mg 10/18/20 21:00 10/21/20 06:55 Gabapentin 100 Mg Cap PEG/G-TUBE 100 mg TID@0600,1400,2100 JM Administration Ampicillin Sodium/Sulbactam 100 mls @ 200 mls/hr 10/20/20 00:00 10/21/20 06:5 5 Sodium 3 gm/ Sodium Chloride IVPB 200 mls/hr Q6HR JM Administration Sodium Chloride 1,000 mls @ 75 mls/hr 10/21/20 09:00 10/21/20 09:18 Saline 0.9% IV 75 mls/hr .[id number] JM Administration Insulin Aspart 0 unit 10/20/20 17:30 10/21/20 06:56 Insulin Aspart (Novolog) 100 Unit/Ml Vial SQ 7 unit ACHS [facility] Administration Protocol Insulin Detemir 40 unit 10/18/20 21:00 10/20/20 22:05 Insulin Detemir (Levemir) 100 Unit/Ml Syr SQ 40 unit HS [facility] Administration Iron/Minerals/Multivitamins 5 ml 10/18/20 17:30 10/21/20 09:14 Multivitamins, Thera Liquid 237 Ml Bottle PEG/G-TUBE 5 ml DAILY@1700 [facility] Administration Levetiracetam 100 mg 10/19/20 08:00 10/21/20 09:15 Levetiracetam Oral Soln 500 Mg/5 Ml Cup PEG/G-TUBE 100 mg DAILY@0800 [facility] Administration Loratadine 10 mg 10/18/20 17:30 10/20/20 16:30 Loratadine 10 Mg Tab PEG/G-TUBE 10 mg DAILY@1700 [facility] Administration Magnesium Hydroxide 7,200 mg 10/18/20 16:51 Magnesium Hydroxide 2,400 Mg/10 Ml Cup PEG/G-TUBE DAILY PRN Constipation Metformin HCl 500 mg 10/18/20 17:00 10/21/20 09:18 Metformin 500 Mg Tab PEG/G-TUBE 500 mg BID@0800,1700 [facility] Administration Metoprolol Tartrate 100 mg 10/18/20 22:00 10/21/20 06:55 Metoprolol Tartrate 50 Mg Tab PEG/G-TUBE 100 mg TID@0600,1400,2200 JM Administration Morphine Sulfate 4 mg 10/18/20 04:00 10/18/20 23:16 Morphine Sulfate 4 Mg/Ml Syringe IV 4 mg Q4HR PRN Administration Severe Pain Naloxone HCl 0.2 mg 10/18/20 04:00 Naloxone 0.4 Mg/Ml 1 Ml Vial IV Q2M PRN Opioid Reversal Ondansetron HCl 4 mg 10/18/20 04:00 Ondansetron 4 Mg/2 Ml Vial IVP Q8HR PRN Nausea And Vomiting Pravastatin Sodium 40 mg 10/18/20 21:00 10/20/20 22:03 Pravastatin Sodium 40 Mg Tab PO 40 mg HS@2100 JM Administration Saliva Substitute 1 spray 10/19/20 08:00 10/21/20 09:17 Dry Mouth Garland 44.3 Garland/44.3 Ml Garland MUCOUS MEM 1 spray TID@0800,1200,1700 JM Administration Simethicone 40 mg 10/18/20 17:45 10/21/20 09:18 Simethicone 40 Mg/0.6 Ml Drops 2,000 Mg/30 Ml Bottle PEG/G-TUBE 40 mg BID@0800,1700 JM Administration Sodium Biphosphate/Sodium Phosphate 133 ml 10/18/20 16:51 Na Phos,M-B/Na Phos,Di-Ba 133 Ml Enema RECTAL DAILY PRN Constipation Intake and Output 10/20/20 10/21/20 10/21/20 22:59 06:59 14:59 Output Total 900 1300 Balance -900 -1300 Output: Urine 900 1300 Other: Voiding Method External Catheter External Catheter 10/21/20 07:47 10/21/20 07:47
[2020-10-21 11:55] LABS: Glucose,Whole Blood 420 mg/dL (75-99)
--- NOTE | 2020-10-21 14:16 | P.PN ---
Subjective Progress Note Date: 10/21/20 CHIEF COMPLAINT: PEG tube site infection HISTORY OF PRESENT ILLNESS: Patient is status post EGD with new PEG tube placement. Tube feedings are scheduled to be started today. Patient lying in bed comfortably. No evidence of pain. No nausea or vomiting. She did have atrial fibrillation with a ventricular response and was evaluated by cardiology. Afebrile heart rate 118 WBC 13.2 hemoglobin 10.2 INR 1.8 glucose 420 Patient seen and examined with Dr. Brower PHYSICAL EXAM: VITAL SIGNS: Reviewed. GENERAL: Well-developed in no acute distress. HEENT: No sclera icterus. Extraocular movements grossly intact. Moist buccal mucosa. Head is atraumatic, normocephalic. ABDOMEN: Soft. Nondistended. NEUROLOGIC: Nonverbal ASSESSMENT: 1. Infected PEG tube site and erosion of PEG tube status post new PEG tube placement 2. Severe protein calorie malnutrition PLAN: -Tube feedings to be initiated today -Dietitian consult in for tube feeding recommendations -Okay to resume Coumadin from surgical standpoint Physician Chestnut Tanner note has been reviewed by physician. Signing provider agrees with the documented findings, assessment, and plan of care. Objective - Vital Signs Vital signs: Vital Signs Temp 98.1 F 10/21/20 12:26 Pulse 118 H 10/21/20 12:26 Resp 18 10/21/20 12:26 BP 114/76 10/21/20 12:26 Pulse Ox 97 10/21/20 12:26 Intake & Output 10/20/20 10/21/20 10/21/20 18:59 06:59 18:59 Intake Total 150 Output Total 900 1300 Balance -750 -1300 Weight 86 kg Intake: IV 150 Output: Urine 900 1300 Other: Voiding Method External Catheter External Catheter External Catheter # Bowel Movements 2 - Labs CBC & Chem 7: 10/21/20 07:47 10/21/20 07:47 Labs: Abnormal Lab Results - Last 24 Hours (Table) 10/20/20 10/20/20 10/21/20 Range/Units 16:44 20:30 06:22 WBC (3.8-10.6) k/uL RBC (3.80-5.40) m/uL Hgb (11.4-16.0) gm/dL Hct (34.0-46.0) % MCHC (31.0-37.0) g/dL RDW (11.5-15.5) % Neutrophils # (1.3-7.7) k/uL PT (9.0-12.0) sec INR (<1.2) Chloride (98-107) mmol/L Carbon Dioxide (22-30) mmol/L BUN (7-17) mg/dL Creatinine (0.52-1.04) mg/dL Glucose (74-99) mg/dL POC Glucose (mg/dL) 272 H 255 H 358 H (75-99) mg/dL Total Protein (6.3-8.2) g/dL Albumin (3.5-5.0) g/dL 10/21/20 10/21/20 10/21/20 Range/Units 07:47 07:47 07:47 WBC 13.2 H (3.8-10.6) k/uL RBC 3.67 L (3.80-5.40) m/uL Hgb 10.2 L (11.4-16.0) gm/dL Hct 33.5 L (34.0-46.0) % MCHC 30.4 L (31.0-37.0) g/dL RDW 18.5 H (11.5-15.5) % Neutrophils # 10.8 H (1.3-7.7) k/uL PT 17.4 H (9.0-12.0) sec INR 1.8 H (<1.2) Chloride 114 H (98-107) mmol/L Carbon Dioxide 20 L (22-30) mmol/L BUN 50 H (7-17) mg/dL Creatinine 0.48 L (0.52-1.04) mg/dL Glucose 383 H (74-99) mg/dL POC Glucose (mg/dL) (75-99) mg/dL Total Protein 5.3 L (6.3-8.2) g/dL Albumin 2.4 L (3.5-5.0) g/dL 10/21/20 Range/Units 11:54 WBC (3.8-10.6) k/uL RBC (3.80-5.40) m/uL Hgb (11.4-16.0) gm/dL Hct (34.0-46.0) % MCHC (31.0-37.0) g/dL RDW (11.5-15.5) % Neutrophils # (1.3-7.7) k/uL PT (9.0-12.0) sec INR (<1.2) Chloride (98-107) mmol/L Carbon Dioxide (22-30) mmol/L BUN (7-17) mg/dL Creatinine (0.52-1.04) mg/dL Glucose (74-99) mg/dL POC Glucose (mg/dL) 420 H (75-99) mg/dL Total Protein (6.3-8.2) g/dL Albumin (3.5-5.0) g/dL Microbiology - Last 24 Hours (Table) 10/19/20 06:32 Gram Stain - Final Abdomen Wound Culture - Final Hannah albicans Hannah glabrata
--- NOTE | 2020-10-21 15:48 | PN ---
PROGRESS NOTE DATE OF SERVICE: 10/21/2020 REASON FOR FOLLOWUP: PEG tube site cellulitis. INTERVAL HISTORY: The patient is afebrile. The patient seems to be slightly more awake and alert. Did answer some simple questions. No vomiting, diarrhea or any other changes reported by the nursing staff. PHYSICAL EXAMINATION: Blood pressure 114/76, pulse of 118, temperature 98.1. She is 97% on room air. GENERAL DESCRIPTION: General description is an elderly female lying in bed in no distress. RESPIRATORY SYSTEM: Unlabored breathing. Clear to auscultation anteriorly. HEART: S1, S2. Regular rate and rhythm. ABDOMEN: Soft. PEG tube site is currently dressed. No drainage on the dressing. LABS: Hemoglobin is 10.1, white count 13.2, BUN of 50, creatinine 0.48. Abdominal culture with Hannah. DIAGNOSTIC IMPRESSION AND PLAN: Patient with PEG tube site cellulitis, status post removal and placement of new PEG tube site. Culture with Hannah. Patient is covered with Unasyn and Diflucan; to continue. Family at the bedside. Their questions were answered. MMODL / IJN: [id number] /
[2020-10-21 16:58] LABS: Glucose,Whole Blood 294 mg/dL (75-99)
[2020-10-21] MEDS: LORATADINE 10 MG TAB PEG/G-TUBE SCH (17:13)
[2020-10-21] MEDS: FERROUS SULFATE ORAL ELIXIR 300 MG/5 ML CUP PEG/G-TUBE SCH (17:21)
[2020-10-21] MEDS ORDERED: WARFARIN 5 MG TAB PO ONE (18:00)
[2020-10-21] MEDS: CHOLESTYRAMINE (WITH SUGAR) 4 GM PACKET PEG/G-TUBE SCH (21:37)
[2020-10-21] MEDS: INSULIN DETEMIR (LEVEMIR) 100 UNIT/ML SYR SQ SCH (21:37)
[2020-10-21] MEDS: PRAVASTATIN SODIUM 40 MG TAB PO SCH (21:37)
[2020-10-21 21:53] LABS: Glucose,Whole Blood 354 mg/dL (75-99)
--- NOTE | 2020-10-21 23:19 | PN ---
PROGRESS NOTE This 75-year-old white female has sick sinus syndrome, rheumatic mitral stenosis, paroxysmal atrial fibrillation, hypertension, pacemaker insertion, stroke with left- sided paralysis, dysphagia from prior stroke and PEG tube placement, chronic respiratory failure. She did miss 3 doses of her metoprolol and Cardizem. Her heart rate is in the 130s to 150s. I am going to give her her metoprolol STAT this afternoon. Heart rate is about 130 to 150s. Cardiovascular: S1, S2. Tachycardic. Irregularly irregular rhythm. PEG tube is replaced. She is being treated with IV antibiotics for wound care. She shakes her head and gives appropriate answers at times. Otherwise, she is sleepy and lethargic a lot. She states she is cold. ASSESSMENT: 1. Rheumatic mitral stenosis. 2. Hypertension. 3. PEG tube replacement. 4. Status post mechanical mitral valve. 5. Paroxysmal atrial fibrillation. 6. PEG tube placement. 7. Sick sinus syndrome. 8. History of cerebrovascular accident. 9. History of dysphagia. Resume cardiac medications. Restart Coumadin. Monitor INR. Give beta blockers. Restart beta blockers and keep her heart rate down. Continue with antibiotics long- term per Dr. Chavira's recommendation. Culture with rg. Continue with Unasyn and Diflucan. Prognosis guarded. Continue current treatment. MMODL / IJN: [id number] /
[2020-10-22 00:47] LABS: Anisocytosis Slight; Basophils # (A) 0.1 k/uL (0-0.2); Basophils % (A) 0 %; Eosinophils % (A) 0 %; HCT 30.6 % (34.0-46.0); HGB 9.5 gm/dL (11.4-16.0); Hypochromasia Marked; Lymphocytes # (A) 3.1 k/uL (1.0-4.8); Lymphocytes % (A) 20 %; MCH 28.6 pg (25.0-35.0); MCHC 30.9 g/dL (31.0-37.0); MCV 92.5 fL (80.0-100.0); Mean Platelet Volume 10.7; Monocytes # (A) 0.8 k/uL (0-1.0); Monocytes % (A) 5 %; Neutrophils # (A) 11.4 k/uL (1.3-7.7); Neutrophils % (A) 73 %; Platelet Count 268 k/uL (150-450); RDW 18.7 % (11.5-15.5); WBC 15.7 k/uL (3.8-10.6)
[2020-10-22 00:59] LABS: ALT 24 U/L (4-34); AST 23 U/L (14-36); African American GFR (CKD) >90 (>60 ml/min/1.73 sqM); Albumin 2.6 g/dL (3.5-5.0); Alkaline Phosphatase 77 U/L (38-126); Anion Gap 9 mmol/L; Blood Urea Nitrogen 58 mg/dL (7-17); Calcium 8.7 mg/dL (8.4-10.2); Carbon Dioxide 20 mmol/L (22-30); Chloride 117 mmol/L (98-107); Glucose 302 mg/dL (74-99); Non-African American GFR(CKD) 90 (>60 ml/min/1.73 sqM); Potassium 3.9 mmol/L (3.5-5.1); Sodium 146 mmol/L (137-145); Total Bilirubin 0.3 mg/dL (0.2-1.3); Total Protein 5.6 g/dL (6.3-8.2)
[2020-10-22 02:06] LABS: T4, Free (Free Thyroxine) 1.41 ng/dL (0.78-2.19)
[2020-10-22 02:51] LABS: Glucose,Whole Blood 331 mg/dL (75-99)
[2020-10-22] MEDS: INSULIN ASPART (NovoLOG) 100 UNIT/ML VIAL SQ SCH ×5 (02:57→23:56)
[2020-10-22 06:19] LABS: Glucose,Whole Blood 316 mg/dL (75-99)
[2020-10-22] MEDS: AMPICILLIN-SULBACTAM 3 GM in SODIUM CHLORIDE 0.9% 100 ML IVPB SCH ×4 (06:20→23:56)
[2020-10-22] MEDS: GABAPENTIN 100 MG CAP PEG/G-TUBE SCH ×3 (06:21→21:17)
[2020-10-22] MEDS: METOPROLOL TARTRATE 50 MG TAB PEG/G-TUBE SCH ×3 (06:21→21:17)
[2020-10-22 07:51] LABS: INR 1.7 (<1.2); Prothrombin Time 16.6 sec (9.0-12.0)
[2020-10-22] MEDS: FUROSEMIDE 40 MG TAB PEG/G-TUBE SCH ×2 (08:51→16:08)
[2020-10-22] MEDS: SIMETHICONE 40 MG/0.6 ML DROPS 2,000 MG/30 ML BOTTLE PEG/G-TUBE SCH ×2 (08:51→17:22)
[2020-10-22] MEDS: metFORMIN 500 MG TAB PEG/G-TUBE SCH ×2 (08:51→16:08)
[2020-10-22] MEDS: DILTIAZEM ORAL 60 MG TAB PEG/G-TUBE SCH ×3 (08:51→21:17)
[2020-10-22] MEDS: levETIRAcetam ORAL SOLN 500 MG/5 ML CUP PEG/G-TUBE SCH (08:51)
[2020-10-22] MEDS: DRY MOUTH SPRAY 44.3 SPRAY/44.3 ML SPRAY MUCOUS MEM SCH ×3 (08:51→16:08)
--- NOTE | 2020-10-22 09:54 | P.PN ---
Subjective Progress Note Date: 10/22/20 Principal diagnosis: Infected PEG tube Patient had a new PEG tube placed. Doing well at this time. Previous PEG tube site improved. Mild drainage. Mild discomfort. Objective - Vital Signs Vital signs: Vital Signs Temp 97.6 F 10/22/20 07:30 Pulse 71 10/22/20 07:30 Resp 16 10/22/20 07:30 BP 110/70 10/22/20 07:30 Pulse Ox 100 10/22/20 07:30 Intake & Output 10/21/20 10/22/20 10/22/20 18:59 06:59 18:59 Intake Total 0 Output Total 600 500 Balance -600 -500 0 Weight 86 kg Intake: Oral 0 Output: Urine 600 500 Other: Voiding Method External Catheter External Catheter External Catheter # Bowel Movements 2 - Exam Abdomen: Soft, nondistended, new PEG tube site without abnormalities, previous PEG tube wound with small amount of purulent drainage, mild tenderness - Labs CBC & Chem 7: 10/22/20 00:20 10/22/20 00:20 Labs: Abnormal Lab Results - Last 24 Hours (Table) 10/21/20 10/21/20 10/21/20 Range/Units 11:54 16:57 21:34 WBC (3.8-10.6) k/uL RBC (3.80-5.40) m/uL Hgb (11.4-16.0) gm/dL Hct (34.0-46.0) % MCHC (31.0-37.0) g/dL RDW (11.5-15.5) % Neutrophils # (1.3-7.7) k/uL PT (9.0-12.0) sec INR (<1.2) Sodium (137-145) mmol/L Chloride (98-107) mmol/L Carbon Dioxide (22-30) mmol/L BUN (7-17) mg/dL Glucose (74-99) mg/dL POC Glucose (mg/dL) 420 H 294 H 354 H (75-99) mg/dL Total Protein (6.3-8.2) g/dL Albumin (3.5-5.0) g/dL TSH (0.465-4.680) mIU/L 10/22/20 10/22/20 10/22/20 Range/Units 00:20 00:20 02:49 WBC 15.7 H (3.8-10.6) k/uL RBC 3.30 L (3.80-5.40) m/uL Hgb 9.5 L (11.4-16.0) gm/dL Hct 30.6 L (34.0-46.0) % MCHC 30.9 L (31.0-37.0) g/dL RDW 18.7 H (11.5-15.5) % Neutrophils # 11.4 H (1.3-7.7) k/uL PT (9.0-12.0) sec INR (<1.2) Sodium 146 H (137-145) mmol/L Chloride 117 H (98-107) mmol/L Carbon Dioxide 20 L (22-30) mmol/L BUN 58 H (7-17) mg/dL Glucose 302 H (74-99) mg/dL POC Glucose (mg/dL) 331 H (75-99) mg/dL Total Protein 5.6 L (6.3-8.2) g/dL Albumin 2.6 L (3.5-5.0) g/dL TSH 0.441 L (0.465-4.680) mIU/L 10/22/20 10/22/20 Range/Units 06:13 07:01 WBC (3.8-10.6) k/uL RBC (3.80-5.40) m/uL Hgb (11.4-16.0) gm/dL Hct (34.0-46.0) % MCHC (31.0-37.0) g/dL RDW (11.5-15.5) % Neutrophils # (1.3-7.7) k/uL PT 16.6 H (9.0-12.0) sec INR 1.7 H (<1.2) Sodium (137-145) mmol/L Chloride (98-107) mmol/L Carbon Dioxide (22-30) mmol/L BUN (7-17) mg/dL Glucose (74-99) mg/dL POC Glucose (mg/dL) 316 H (75-99) mg/dL Total Protein (6.3-8.2) g/dL Albumin (3.5-5.0) g/dL TSH (0.465-4.680) mIU/L Microbiology - Last 24 Hours (Table) 10/19/20 06:32 Gram Stain - Final Abdomen Wound Culture - Final Hannah albicans Hannah glabrata Assessment and Plan (1) PEG tube malfunction Narrative/Plan: Continue increasing tube feeds to goal. Again Aquacel silver rope to the abdominal wound at the previous PEG tube site. Will follow. Current Visit: No Status: Acute Code(s): K94.23 - GASTROSTOMY MALFUNCTION SNOMED Code(s): 452547979
[2020-10-22 11:45] LABS: Glucose,Whole Blood 311 mg/dL (75-99)
[2020-10-22] MEDS: SODIUM CHLORIDE 0.9% 1,000 ML IV SCH (11:57)
[2020-10-22] MEDS: LORATADINE 10 MG TAB PEG/G-TUBE SCH (16:08)
[2020-10-22] MEDS: FERROUS SULFATE ORAL ELIXIR 300 MG/5 ML CUP PEG/G-TUBE SCH (16:08)
[2020-10-22] MEDS: MULTIVITAMINS, THERA LIQUID 237 ML BOTTLE PEG/G-TUBE SCH ×2 (16:09→17:22)
[2020-10-22 16:35] LABS: Glucose,Whole Blood 295 mg/dL (75-99)
[2020-10-22] MEDS ORDERED: WARFARIN 5 MG TAB PO ONE (18:00)
[2020-10-22 20:04] LABS: Glucose,Whole Blood 248 mg/dL (75-99)
[2020-10-22] MEDS: INSULIN DETEMIR (LEVEMIR) 100 UNIT/ML SYR SQ SCH (21:17)
[2020-10-22] MEDS: CHOLESTYRAMINE (WITH SUGAR) 4 GM PACKET PEG/G-TUBE SCH (21:17)
[2020-10-22] MEDS: PRAVASTATIN SODIUM 40 MG TAB PO SCH (21:17)
[2020-10-22 23:53] LABS: Glucose,Whole Blood 266 mg/dL (75-99)
[2020-10-23] MEDS: SODIUM CHLORIDE 0.9% 1,000 ML IV SCH (01:18)
[2020-10-23 05:34] LABS: Glucose,Whole Blood 274 mg/dL (75-99)
[2020-10-23] MEDS: AMPICILLIN-SULBACTAM 3 GM in SODIUM CHLORIDE 0.9% 100 ML IVPB SCH ×2 (05:42→12:07)
[2020-10-23] MEDS: METOPROLOL TARTRATE 50 MG TAB PEG/G-TUBE SCH ×3 (05:42→23:11)
[2020-10-23] MEDS: GABAPENTIN 100 MG CAP PEG/G-TUBE SCH ×3 (05:42→21:01)
[2020-10-23] MEDS: INSULIN ASPART (NovoLOG) 100 UNIT/ML VIAL SQ SCH ×3 (05:42→17:24)
--- NOTE | 2020-10-23 07:14 | PN ---
PROGRESS NOTE DATE OF SERVICE: 10/22/2020 REASON FOR FOLLOW UP: Peg tube site infection. INTERVAL HISTORY: The patient is afebrile. The patient remains to be lethargic, sleepy. Unable to provide any history though. No vomiting, diarrhea or any other changes reported by the nursing staff. PHYSICAL EXAMINATION: Blood pressure is 136/80 with a pulse of 109, temperature 97.9. She is 98% on room air. General description is an elderly female lying in bed in no distress. Respiratory system: Unlabored breathing, clear to auscultation anteriorly. Heart S1, S2. Regular rate and rhythm. Abdomen soft, no tenderness. LABS: Creatinine is 1.7. DIAGNOSTIC IMPRESSION AND PLAN: Patient with PEG tube site infection status post . Patient is currently covered on Unasyn, Diflucan transition to oral antibiotic on discharge. Continue supportive care. MMODL / IJN: [id number] /
--- NOTE | 2020-10-23 07:15 | PN ---
PROGRESS NOTE 75-year-old white female, infected PEG tube, status post PEG tube replacement. She has mild drainage, mild discomfort. Temperature 97.6, pulse 71, respiratory 16 to 18, blood pressure 110/70, pulse ox 100. Cardiovascular S1-S2. Lungs clear. GI soft. Hematology: Negative Homans. Psych: Fair mood and affect. White count 15.7, hemoglobin 9.5, BUN is 58, creatinine is 0.61, sodium 146, glucose 302, total protein 5.6. ASSESSMENT: PEG tube malfunction infected PEG tube. Continue with broad-spectrum antibiotics per Dr. Chavira's recommendations. Aquacel silver rope to the abdominal wound at the previous PEG site. Increasing tube feeds at this time. Prognosis is guarded. Continue with broad-spectrum antibiotics per Dr. Chavira's recommendations. MMODL / IJN: [id number] /
[2020-10-23] MEDS: FUROSEMIDE 40 MG TAB PEG/G-TUBE SCH ×2 (07:54→17:10)
[2020-10-23] MEDS: levETIRAcetam ORAL SOLN 500 MG/5 ML CUP PEG/G-TUBE SCH (07:55)
[2020-10-23] MEDS: metFORMIN 500 MG TAB PEG/G-TUBE SCH ×2 (07:55→17:12)
[2020-10-23] MEDS: ACETAMINOPHEN ORAL SUSP (PEDS) 3,840 MG/120 ML BOTTLE PEG/G-TUBE PRN ×2 (07:55→17:14)
[2020-10-23] MEDS: SIMETHICONE 40 MG/0.6 ML DROPS 2,000 MG/30 ML BOTTLE PEG/G-TUBE SCH ×2 (07:56→17:13)
[2020-10-23] MEDS: DILTIAZEM ORAL 60 MG TAB PEG/G-TUBE SCH ×3 (07:57→23:11)
--- NOTE | 2020-10-23 09:34 | P.PN ---
Subjective Progress Note Date: 10/23/20 Principal diagnosis: Infected PEG tube Patient seems to be doing well today. She is tolerating her tube feeds. No obvious discomfort. She is afebrile. Objective - Vital Signs Vital signs: Vital Signs Temp 97.6 F 10/23/20 07:52 Pulse 80 10/23/20 07:52 Resp 18 10/23/20 07:52 BP 131/60 10/23/20 07:52 Pulse Ox 99 10/23/20 07:52 Intake & Output 10/22/20 10/23/20 10/23/20 18:59 06:59 18:59 Intake Total 0 850 0 Output Total 350 1900 Balance -350 -1050 0 Weight 86 kg Intake: Intake, IV Titration 850 Amount Ampicillin-Sulbactam 3 gm 100 In Sodium Chloride 0.9% 100 ml @ 200 mls/hr IVPB Q6HR [facility] Rx#:[id number] Sodium Chloride 0.9% 1, 750 000 ml @ 75 mls/hr IV . [id number] [facility] Rx#:[id number] Oral 0 0 0 Output: Urine 350 1900 Other: Voiding Method External Catheter External Catheter External Catheter # Bowel Movements 1 - Exam Abdomen: Soft, nondistended, PEG tube in place, previous wound improving - Labs CBC & Chem 7: 10/22/20 00:20 10/22/20 00:20 Labs: Abnormal Lab Results - Last 24 Hours (Table) 10/22/20 10/22/20 10/22/20 Range/Units 11:43 16:33 19:58 POC Glucose (mg/dL) 311 H 295 H 248 H (75-99) mg/dL 10/22/20 10/23/20 Range/Units 23:52 05:32 POC Glucose (mg/dL) 266 H 274 H (75-99) mg/dL Assessment and Plan (1) PEG tube malfunction Narrative/Plan: Continue local wound care. Continue tube feeds at goal. Current Visit: No Status: Acute Code(s): K94.23 - GASTROSTOMY MALFUNCTION SNOMED Code(s): 618254084
[2020-10-23 10:27] LABS: ALT 22 U/L (4-34); AST 27 U/L (14-36); African American GFR (CKD) >90 (>60 ml/min/1.73 sqM); Alkaline Phosphatase 116 U/L (38-126); Anion Gap 8 mmol/L; Blood Urea Nitrogen 28 mg/dL (7-17); Calcium 9.4 mg/dL (8.4-10.2); Carbon Dioxide 26 mmol/L (22-30); Chloride 116 mmol/L (98-107); Glucose 249 mg/dL (74-99); Non-African American GFR(CKD) >90 (>60 ml/min/1.73 sqM); Potassium 4.4 mmol/L (3.5-5.1); Sodium 150 mmol/L (137-145); Total Bilirubin 0.4 mg/dL (0.2-1.3); Total Protein 6.1 g/dL (6.3-8.2)
[2020-10-23 10:29] LABS: INR 1.8 (<1.2); Prothrombin Time 17.8 sec (9.0-12.0)
[2020-10-23 10:45] LABS: Anisocytosis Slight; Basophils # (A) 0.1 k/uL (0-0.2); Basophils % (A) 1 %; Eosinophils # (A) 0.2 k/uL (0-0.7); Eosinophils % (A) 1 %; HCT 27.3 % (34.0-46.0); HGB 8.5 gm/dL (11.4-16.0); Hypochromasia Marked; Lymphocytes # (A) 2.4 k/uL (1.0-4.8); Lymphocytes % (A) 14 %; MCH 28.7 pg (25.0-35.0); MCHC 31.3 g/dL (31.0-37.0); MCV 91.8 fL (80.0-100.0); Mean Platelet Volume 9.7; Monocytes # (A) 0.7 k/uL (0-1.0); Monocytes % (A) 4 %; Neutrophils # (A) 13.1 k/uL (1.3-7.7); Neutrophils % (A) 78 %; Platelet Count 254 k/uL (150-450); RBC 2.98 m/uL (3.80-5.40); RDW 19.4 % (11.5-15.5); WBC 16.8 k/uL (3.8-10.6)
[2020-10-23] MEDS ORDERED: DEXTROSE 5%-0.45% NACL 1,000 ML IV SCH (11:00)
[2020-10-23 11:29] LABS: Polychromasia Present
[2020-10-23 11:30] LABS: Mixed Population RBC Present; Poikilocytosis (M) Present
[2020-10-23 11:43] LABS: Glucose,Whole Blood 273 mg/dL (75-99)
[2020-10-23] MEDS: DRY MOUTH SPRAY 44.3 SPRAY/44.3 ML SPRAY MUCOUS MEM SCH ×2 (12:08→17:13)
[2020-10-23 16:33] LABS: Glucose,Whole Blood 246 mg/dL (75-99)
--- NOTE | 2020-10-23 16:49 | PN ---
PROGRESS NOTE DATE OF SERVICE: 10/23/2020 REASON FOR FOLLOW UP: PEG tube site cellulitis. INTERVAL HISTORY: The patient is afebrile. The patient remains to be sleepy, lethargic unable to provide any history. No vomiting, diarrhea has been reported by nursing staff. Has been tolerating her tube feeds. PHYSICAL EXAMINATION: Blood pressure 131/65, pulse of 79, temperature 98. She is 99% on room air. General description is an elderly female lying in bed in no distress. Respiratory system: Unlabored breathing, clear to auscultation anteriorly. Heart S1, S2. Regular rate and rhythm. Abdomen: Soft. Mild distention. No guarding. No rigidity. LABS: Hemoglobin 8.8, white count 16.2, BUN of 28, creatinine 0.37. DIAGNOSTIC IMPRESSION AND PLAN: Patient with PEG tube site cellulitis in this patient culture positive for Hannah albicans and glabrata with worsening of the white count. We will switch her over to voriconazole. Discontinue the Unasyn, Diflucan and monitor clinical course closely. MMODL / IJN: [id number] /
[2020-10-23] MEDS: LORATADINE 10 MG TAB PEG/G-TUBE SCH (17:10)
[2020-10-23] MEDS: MULTIVITAMINS, THERA LIQUID 237 ML BOTTLE PEG/G-TUBE SCH (17:11)
[2020-10-23] MEDS: FERROUS SULFATE ORAL ELIXIR 300 MG/5 ML CUP PEG/G-TUBE SCH (17:13)
[2020-10-23] MEDS ORDERED: WARFARIN 5 MG TAB PO ONE (18:00)
[2020-10-23] MEDS: SODIUM FERRIC GLUCONAT-SUCROSE 125 MG in SODIUM CHLORIDE 0.9% 100 ML IVPB SCH (18:43)
--- NOTE | 2020-10-23 19:19 | PN ---
PROGRESS NOTE This 75-year-old white female is status post PEG tube replacement, chronic wound infection. Mental status remains the same. Cardiovascular S1, S2. Lungs with transmitted upper sounds. GI soft. Hematology: Negative Homans. Heart regular rate and rhythm. Abdomen with mild distention. No guarding. No rigidity. Oxygenation is 99 on room air. Blood pressure 131/65, pulse 79, temperature 98. Hemoglobin is 8.8, white count, 16.2, BUN is 28, creatinine 0.37. PEG tube positive for Hannah albicans. Worsening of the white count. Switch over to miconazole. Discontinue Unasyn, Diflucan. Monitor closely. Prognosis guarded. Continue current treatment for infection and wound care and home medications. MMODL / IJN: [id number] /
[2020-10-23] MEDS: INSULIN DETEMIR (LEVEMIR) 100 UNIT/ML SYR SQ SCH (21:01)
[2020-10-23] MEDS: VORICONAZOLE 200 MG TAB PO SCH (21:01)
[2020-10-23] MEDS: PRAVASTATIN SODIUM 40 MG TAB PO SCH (21:01)
[2020-10-23] MEDS: CHOLESTYRAMINE (WITH SUGAR) 4 GM PACKET PEG/G-TUBE SCH (23:11)
[2020-10-24 00:43] LABS: Glucose,Whole Blood 233 mg/dL (75-99)
[2020-10-24] MEDS: INSULIN ASPART (NovoLOG) 100 UNIT/ML VIAL SQ SCH ×4 (00:44→18:15)
[2020-10-24 06:23] LABS: Glucose,Whole Blood 179 mg/dL (75-99)
[2020-10-24] MEDS: METOPROLOL TARTRATE 50 MG TAB PEG/G-TUBE SCH ×3 (06:32→21:13)
[2020-10-24] MEDS: GABAPENTIN 100 MG CAP PEG/G-TUBE SCH ×3 (06:32→21:13)
[2020-10-24] MEDS: DRY MOUTH SPRAY 44.3 SPRAY/44.3 ML SPRAY MUCOUS MEM SCH ×3 (08:41→16:26)
[2020-10-24] MEDS: levETIRAcetam ORAL SOLN 500 MG/5 ML CUP PEG/G-TUBE SCH (08:41)
[2020-10-24] MEDS: SODIUM FERRIC GLUCONAT-SUCROSE 125 MG in SODIUM CHLORIDE 0.9% 100 ML IVPB SCH (08:42)
[2020-10-24] MEDS: VORICONAZOLE 200 MG TAB PO SCH ×2 (08:42→21:14)
[2020-10-24] MEDS: DILTIAZEM ORAL 60 MG TAB PEG/G-TUBE SCH ×3 (08:42→21:13)
[2020-10-24] MEDS: FUROSEMIDE 40 MG TAB PEG/G-TUBE SCH ×2 (08:42→16:25)
[2020-10-24] MEDS: metFORMIN 500 MG TAB PEG/G-TUBE SCH ×2 (08:42→16:26)
[2020-10-24] MEDS: SIMETHICONE 40 MG/0.6 ML DROPS 2,000 MG/30 ML BOTTLE PEG/G-TUBE SCH ×2 (08:43→16:26)
[2020-10-24 08:49] LABS: Anisocytosis Slight; Basophils % (A) 0 %; Eosinophils # (A) 0.4 k/uL (0-0.7); Eosinophils % (A) 3 %; HCT 24.3 % (34.0-46.0); HGB 7.5 gm/dL (11.4-16.0); Hypochromasia Marked; Lymphocytes # (A) 1.9 k/uL (1.0-4.8); Lymphocytes % (A) 15 %; MCH 28.2 pg (25.0-35.0); MCV 90.8 fL (80.0-100.0); Mean Platelet Volume 9.4; Monocytes # (A) 0.5 k/uL (0-1.0); Monocytes % (A) 4 %; Neutrophils # (A) 9.8 k/uL (1.3-7.7); Neutrophils % (A) 77 %; Platelet Count 226 k/uL (150-450); RBC 2.67 m/uL (3.80-5.40); RDW 19.5 % (11.5-15.5); WBC 12.7 k/uL (3.8-10.6)
[2020-10-24 08:56] LABS: INR 1.9 (<1.2); Prothrombin Time 18.6 sec (9.0-12.0)
[2020-10-24 09:01] LABS: ALT 18 U/L (4-34); AST 24 U/L (14-36); African American GFR (CKD) >90 (>60 ml/min/1.73 sqM); Albumin 2.7 g/dL (3.5-5.0); Alkaline Phosphatase 90 U/L (38-126); Anion Gap 5 mmol/L; Blood Urea Nitrogen 26 mg/dL (7-17); Calcium 9.5 mg/dL (8.4-10.2); Carbon Dioxide 29 mmol/L (22-30); Chloride 113 mmol/L (98-107); Glucose 162 mg/dL (74-99); Non-African American GFR(CKD) >90 (>60 ml/min/1.73 sqM); Potassium 3.8 mmol/L (3.5-5.1); Sodium 147 mmol/L (137-145); Total Bilirubin 0.3 mg/dL (0.2-1.3); Total Protein 5.5 g/dL (6.3-8.2)
[2020-10-24 12:03] LABS: Glucose,Whole Blood 157 mg/dL (75-99)
--- NOTE | 2020-10-24 13:35 | P.PN ---
Subjective Progress Note Date: 10/24/20 CHIEF COMPLAINT: Infected PEG tube HISTORY OF PRESENT ILLNESS: Patient seen and examined and doing well overall. She is tolerating her tube feedings. She had a bowel movement yesterday, normal brown. No signs of GI bleed. Denying any abdominal pain, she's had no vomiting. She's been afebrile. Leukocytosis improving. Today's labs WBC 12.7, hemoglobin 7.5, hematocrit 24.3, platelet count 226,000, INR 1.9 PHYSICAL EXAM: VITAL SIGNS: Reviewed. GENERAL: Well-developed in no acute distress. HEENT: No sclera icterus. Extraocular movements grossly intact. Moist buccal mucosa. Head is atraumatic, normocephalic. ABDOMEN: Soft. Nondistended. Nontender. PEG tube in place, previous PEG tube site with mild erythema, dressing in place. NEUROLOGIC: Alert. ASSESSMENT: 1. Infected PEG tube site and erosion of PEG tube status post new PEG tube placement 2. Severe protein calorie malnutrition PLAN: -Continue local wound care -Continue tube feeds at goal The impression and plan of care has been dictated as directed. I performed a history and examination of this patient, discussed the same with the dictator. I agree with the dictator's note ,documented as a scribe. Any additional findings or plans will be noted. Objective - Vital Signs Vital signs: Vital Signs Temp 98 F 10/24/20 07:44 Pulse 73 10/24/20 07:44 Resp 16 10/24/20 07:44 BP 118/59 10/24/20 07:44 Pulse Ox 95 10/24/20 07:44 Intake & Output 10/23/20 10/24/20 10/24/20 18:59 06:59 18:59 Intake Total 0 1060 Output Total 550 1150 250 Balance -550 -90 -250 Intake: Intake, IV Titration 250 Amount Sodium Chloride 0.9% 1, 150 000 ml @ 75 mls/hr IV . [id number] [facility] Rx#:[id number] Sodium Ferric Gluconat- 100 Sucrose 125 mg In Sodium Chloride 0.9% 100 ml @ 100 mls/hr IVPB DAILY [facility] Rx#:[id number] Oral 0 0 Tube Feeding 780 Other 30 Output: Urine 550 1150 250 Other: Voiding Method External Catheter External Catheter External Catheter - Labs CBC & Chem 7: 10/24/20 08:00 10/24/20 08:00 Labs: Abnormal Lab Results - Last 24 Hours (Table) 10/23/20 10/23/20 10/23/20 Range/Units 09:47 09:47 09:47 WBC 16.8 H (3.8-10.6) k/uL RBC 2.98 L (3.80-5.40) m/uL Hgb 8.5 L (11.4-16.0) gm/dL Hct 27.3 L (34.0-46.0) % RDW 19.4 H (11.5-15.5) % Neutrophils # 13.1 H (1.3-7.7) k/uL PT 17.8 H (9.0-12.0) sec INR 1.8 H (<1.2) Sodium 150 H (137-145) mmol/L Chloride 116 H (98-107) mmol/L BUN 28 H (7-17) mg/dL Creatinine 0.37 L (0.52-1.04) mg/dL Glucose 249 H (74-99) mg/dL POC Glucose (mg/dL) (75-99) mg/dL Total Protein 6.1 L (6.3-8.2) g/dL Albumin 3.0 L (3.5-5.0) g/dL 10/23/20 10/23/20 10/24/20 Range/Units 11:40 16:31 00:41 WBC (3.8-10.6) k/uL RBC (3.80-5.40) m/uL Hgb (11.4-16.0) gm/dL Hct (34.0-46.0) % RDW (11.5-15.5) % Neutrophils # (1.3-7.7) k/uL PT (9.0-12.0) sec INR (<1.2) Sodium (137-145) mmol/L Chloride (98-107) mmol/L BUN (7-17) mg/dL Creatinine (0.52-1.04) mg/dL Glucose (74-99) mg/dL POC Glucose (mg/dL) 273 H 246 H 233 H (75-99) mg/dL Total Protein (6.3-8.2) g/dL Albumin (3.5-5.0) g/dL 10/24/20 10/24/20 10/24/20 Range/Units 06:18 08:00 08:00 WBC 12.7 H (3.8-10.6) k/uL RBC 2.67 L (3.80-5.40) m/uL Hgb 7.5 L (11.4-16.0) gm/dL Hct 24.3 L (34.0-46.0) % RDW 19.5 H (11.5-15.5) % Neutrophils # 9.8 H (1.3-7.7) k/uL PT 18.6 H (9.0-12.0) sec INR 1.9 H (<1.2) Sodium (137-145) mmol/L Chloride (98-107) mmol/L BUN (7-17) mg/dL Creatinine (0.52-1.04) mg/dL Glucose (74-99) mg/dL POC Glucose (mg/dL) 179 H (75-99) mg/dL Total Protein (6.3-8.2) g/dL Albumin (3.5-5.0) g/dL 10/24/20 Range/Units 08:00 WBC (3.8-10.6) k/uL RBC (3.80-5.40) m/uL Hgb (11.4-16.0) gm/dL Hct (34.0-46.0) % RDW (11.5-15.5) % Neutrophils # (1.3-7.7) k/uL PT (9.0-12.0) sec INR (<1.2) Sodium 147 H (137-145) mmol/L Chloride 113 H (98-107) mmol/L BUN 26 H (7-17) mg/dL Creatinine 0.39 L (0.52-1.04) mg/dL Glucose 162 H (74-99) mg/dL POC Glucose (mg/dL) (75-99) mg/dL Total Protein 5.5 L (6.3-8.2) g/dL Albumin 2.7 L (3.5-5.0) g/dL
[2020-10-24] MEDS: FERROUS SULFATE ORAL ELIXIR 300 MG/5 ML CUP PEG/G-TUBE SCH (16:26)
[2020-10-24] MEDS: LORATADINE 10 MG TAB PEG/G-TUBE SCH (16:26)
[2020-10-24] MEDS: MULTIVITAMINS, THERA LIQUID 237 ML BOTTLE PEG/G-TUBE SCH (16:29)
--- NOTE | 2020-10-24 17:03 | PN ---
PROGRESS NOTE DATE OF SERVICE: 10/24/2020 REASON FOR FOLLOWUP: Abdominal wall cellulitis and PEG tube site infection. INTERVAL HISTORY: The patient is afebrile. The patient is slightly more awake and alert. She did mention she is breathing better. No vomiting, diarrhea or other changes reported by the nursing staff. PHYSICAL EXAMINATION: Her blood pressure is 119/73 with a pulse of 80, temperature 98. She is 98% on room air. GENERAL DESCRIPTION: General description is an elderly female lying in bed in no distress. RESPIRATORY SYSTEM: Unlabored breathing. Clear to auscultation anteriorly. HEART: S1, S2. Regular rate and rhythm. ABDOMEN: Soft. No tenderness. LABS: Hemoglobin is 7.2, white count 12.7, BUN of 26, creatinine 0.69. DIAGNOSTIC IMPRESSION AND PLAN: Patient with abdominal wall cellulitis from PEG tube infection, had to be discontinued. Culture Hannah albicans. She is responding white count is trending down. oral voriconazole. The PEG tube MMODL / IJN: [id number] /
[2020-10-24] MEDS ORDERED: WARFARIN 2 MG TAB PO ONE (18:00)
[2020-10-24 18:05] LABS: Glucose,Whole Blood 178 mg/dL (75-99)
[2020-10-24 18:36] LABS: Reticulocyte % 5.2 % (0.5-2.0)
--- NOTE | 2020-10-24 18:44 | P.CONS ---
History of Present Illness - Reason for Consult Consult date: 10/24/20 anemia Requesting physician: Luis A Gomez - Chief Complaint PEG tube cellulitis - History of Present Illness Mrs. Eric is a very pleasant but mostly non-verbal 75-year-old female we have been asked to see for acute, progressive anemia. History is taken from the chart and RN as patient is again, nonverbal. She does follow commands a little bit. Admitted for cellulitis at PEG tube site. PEG was changed 10/20, report reviewed showed erosion, wound infection with Hannah, she is on appropriate antifungal treatment with Infectious Disease. Since admission on 10/18 patient's hemoglobin has went from normal 12, to 10.2, 9.5, 8.5, 7.5 today. she has not had a blood transfusion yet. She was ordered parenteral iron. Renal function is normal. She is on Coumadin for a better, INR 1.9, confirmed with nursing dose was given today. Iron deficiency noted in the chart back as 2018. I see no notes about EGD or colonoscopy. Nursing reports no bloody urine, stool, gross bleeding. Has a history of breast cancer. She was last biopsied in February/2020. Review of Systems ROS unobtainable: due to mental status Past Medical History Past Medical History: Atrial Fibrillation, Atrial Flutter, Asthma, Cancer, Heart Failure, CVA/TIA, Dementia, Diabetes Mellitus, GERD/Reflux, GI Bleed, Hype rlipidemia, Hypertension, Pneumonia, Sleep Apnea/CPAP/BIPAP Additional Past Medical History / Comment(s): Verified with [facility] r/t son Jose Rafael being unsure of history. Jose Rafael states he is also pt's DPOA. 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, post traumatic seizures, History of Any Multi-Drug Resistant Organisms: MRSA Year Discovered:: 08/21/20 MDRO Source:: MRSA URINE Past Surgical History: Breast Surgery, Cardiac Valve Replacement, Heart Catheterization With Stent, Hysterectomy, Orthopedic Surgery, Pacemaker, Tonsillectomy Additional Past Surgical History / Comment(s): Peg tube, mechanical mitral valve 2000, polypectomy spinal cord/cyst removed, TEEs, CVNs, colonoscopies, bilateral cataract removal/lens implants, L rotator cuff repair, R femur fracture with IM hip/screw/nail, L breast lumpectomy, Past Anesthesia/Blood Transfusion Reactions: No Reported Reaction Date of Last Stent Placement:: 2006 Type of Cardiac Device: Permanent Pacemaker Device Placement Date:: 2009 Past Psychological History: Depression Smoking Status: Unknown if ever smoked Past Alcohol Use History: Unable to Obtain Past Drug Use History: Unable to Obtain - Past Family History Father Family Medical History: GI Bleed Additional Family Medical History / Comment(s): OF BLEEDING ULCER AT AGE 64 Mother Family Medical History: Cancer, CVA/TIA Additional Family Medical History / Comment(s): HX STROKES, COLON CANCER Medications and Allergies Home Medications Medication Instructions Recorded Confirmed Type Pravastatin Sodium [Pravachol] 40 mg PEG/G-TUBE HS@2100 05/20/17 10/18/20 History levETIRAcetam [Keppra Oral 100 mg PEG/G-TUBE DAILY@0800 09/27/17 10/18/20 History Solution] Aspirin 81 mg PEG/G-TUBE DAILY@0800 05/30/18 10/18/20 History Acetaminophen Oral Susp [Tylenol] 640 mg PEG/G-TUBE Q6H PRN 12/25/19 10/18/20 History Multivitamins, Thera Liquid 5 ml PEG/G-TUBE DAILY@1700 12/25/19 10/18/20 History [Theragran Liquid (formulary)] bisacodyL [Dulcolax] 10 mg RECTAL DAILY PRN 12/25/19 10/18/20 History Ipratropium-Albuterol Nebulize 3 ml INHALATION RT-QID PRN 06/11/20 10/18/20 History [Duoneb 0.5 mg-3 mg/3 ml Soln] Na Phos,M-B/Na Phos,Di-Ba [Fleet 133 ml RECTAL DAILY PRN 06/11/20 10/18/20 History Adult] Loratadine [Claritin] 10 mg PEG/G-TUBE DAILY@1700 tab 06/14/20 10/18/20 Rx Furosemide [Lasix] 40 mg PEG/G-TUBE BID@0800,1700 06/24/20 10/18/20 History INSULIN ASPART (NovoLOG) [NovoLOG See Protocol SQ ACHS 06/24/20 10/18/20 History (formulary)] metFORMIN HCL [Glucophage] 500 mg PEG/G-TUBE BID@0800,1700 06/24/20 10/18/20 History Metoprolol Tartrate [Lopressor] 100 mg PEG/G-TUBE 07/15/20 10/18/20 History TID@0600,1400,2200 Gabapentin [Neurontin] 100 mg PEG/G-TUBE 09/15/20 10/18/20 History TID@0600,1400,2100 Liquacel 30 ml PEG/G-TUBE BID@0800,1600 09/15/20 10/18/20 History Simethicone 40 mg PEG/G-TUBE BID@0800,1700 09/15/20 10/18/20 History Biotene Dry Mouth Mouthwash 5 ml MUCOUS MEM TID@0800,1200,1700 10/18/20 10/18/20 History Cholestyramine/Aspartame 4 gm PEG/G-TUBE HS@2200 10/18/20 10/18/20 History [Cholestyramine Light Packet] Diltiazem Oral [Cardizem*] 60 mg PEG/G-TUBE TID 10/18/20 10/18/20 History Doxycycline Hyclate [Vibramycin] 100 mg PEG/G-TUBE BID@0800,2100 10/18/20 10/18/20 History Ferrous Sulfate 330 mg PEG/G-TUBE DAILY@17010/18/20 10/18/20 History Insulin Detemir (Levemir) [Levemir] 40 unit SQ HS 10/18/20 10/18/20 History Magnesium Hydroxide [Milk of 7,200 mg PEG/G-TUBE DAILY PRN 10/18/20 10/18/20 History Magnesia Concentrate] Nitroglycerin Sl Tabs [Nitrostat] 0.4 mg SL Q5M PRN 10/18/20 10/18/20 History Warfarin Sodium [Jantoven] 4 mg PEG/G-TUBE DAILY@1700 10/18/20 10/18/20 History Allergies Allergy/AdvReac Type Severity Reaction Status Date / Time ciprofloxacin [From Cipro] Allergy Rash/Hives Verified 10/18/20 07:45 ciprofloxacin HCl Allergy Rash/Hives Verified 10/18/20 07:45 [From Cipro] Quinolones Allergy Unknown Verified 10/18/20 07:45 Physical Exam Vitals: Vital Signs Temp Pulse Resp BP Pulse Ox 10/24/20 14:18 98 F 80 16 119/73 98 10/24/20 11:59 78 16 10/24/20 10:33 98.6 F 78 16 121/67 98 10/24/20 07:44 98 F 73 16 118/59 95 10/24/20 03:55 98.1 F 80 17 135/63 96 10/24/20 02:00 78 17 10/24/20 00:00 98.3 F 78 17 136/62 97 10/23/20 20:00 98.7 F 86 17 129/61 95 Intake and Output 10/24/20 10/24/20 10/24/20 06:59 14:59 22:59 Intake Total 600 60 Output Total 250 850 Balance 350 -790 Intake: Oral 0 Tube Feeding 600 60 Output: Urine 250 850 Other: Voiding Method External Catheter External Catheter Weight 91.5 kg - Constitutional General appearance: cooperative, no acute distress, obese - EENT dry mucous membranes, no wet purpura, no blood in the nares Eyes: anicteric sclerae ENT: hearing grossly normal (assuming as pt folloed command to stick out tongue ) - Neck Neck: no lymphadenopathy - Respiratory Respiratory: right: CTA ( ) - Cardiovascular Heart sounds: normal: S1, S2 ( ) Abnormal Heart Sounds: no systolic murmur, no diastolic murmur, no rub, no S3 Gallop, no S4 Gallop, no click, no other leg Peripheral Edema: bilateral: Trace - Gastrointestinal abdomen is distended and firm to the touch, no drainage noted on dressing from removal, slight discharge and new PEG insertion site. General gastrointestinal: no absent bowel sounds, no decreased bowel sounds, distended, no hepatomegaly, no hyperactive bowel sounds, normal bowel sounds, no organomegaly, no rigid, no scaphoid, soft, no splenomegaly, tenderness, no umbilical hernia, no ventral hernia - Integumentary Integumentary: pale - Musculoskeletal Musculoskeletal: generalized weakness - Psychiatric Psychiatric: no A&O x's 3, no appropriate affect, no intact judgment & insight Results CBC & Chem 7: 10/24/20 08:00 10/24/20 08:00 Labs: Abnormal Lab Results - Last 24 Hours (Table) 10/24/20 10/24/20 10/24/20 Range/Units 00:41 06:18 08:00 WBC (3.8-10.6) k/uL RBC (3.80-5.40) m/uL Hgb (11.4-16.0) gm/dL Hct (34.0-46.0) % RDW (11.5-15.5) % Neutrophils # (1.3-7.7) k/uL PT 18.6 H (9.0-12.0) sec INR 1.9 H (<1.2) Sodium (137-145) mmol/L Chloride (98-107) mmol/L BUN (7-17) mg/dL Creatinine (0.52-1.04) mg/dL Glucose (74-99) mg/dL POC Glucose (mg/dL) 233 H 179 H (75-99) mg/dL Total Protein (6.3-8.2) g/dL Albumin (3.5-5.0) g/dL 10/24/20 10/24/20 10/24/20 Range/Units 08:00 08:00 11:57 WBC 12.7 H (3.8-10.6) k/uL RBC 2.67 L (3.80-5.40) m/uL Hgb 7.5 L (11.4-16.0) gm/dL Hct 24.3 L (34.0-46.0) % RDW 19.5 H (11.5-15.5) % Neutrophils # 9.8 H (1.3-7.7) k/uL PT (9.0-12.0) sec INR (<1.2) Sodium 147 H (137-145) mmol/L Chloride 113 H (98-107) mmol/L BUN 26 H (7-17) mg/dL Creatinine 0.39 L (0.52-1.04) mg/dL Glucose 162 H (74-99) mg/dL POC Glucose (mg/dL) 157 H (75-99) mg/dL Total Protein 5.5 L (6.3-8.2) g/dL Albumin 2.7 L (3.5-5.0) g/dL 10/24/20 Range/Units 18:00 WBC (3.8-10.6) k/uL RBC (3.80-5.40) m/uL Hgb (11.4-16.0) gm/dL Hct (34.0-46.0) % RDW (11.5-15.5) % Neutrophils # (1.3-7.7) k/uL PT (9.0-12.0) sec INR (<1.2) Sodium (137-145) mmol/L Chloride (98-107) mmol/L BUN (7-17) mg/dL Creatinine (0.52-1.04) mg/dL Glucose (74-99) mg/dL POC Glucose (mg/dL) 178 H (75-99) mg/dL Total Protein (6.3-8.2) g/dL Albumin (3.5-5.0) g/dL Assessment and Plan (1) Iron deficiency anemia Narrative/Plan: On chart review there is iron deficiency noted from as far back as 2018. Pt has only been moderately anemic-9 range. Requested iron studies, on blood drawn yesterday, prior to iron infusion. Precipitous drop in hemoglobin is suspicious. Have requested a CT of the abdomen and pelvis without contrast to assess for acute bleeding. Patient has acute/chronic infection, been on antibiotics and antifungals during this admission, could be marrow suppression from infection, drugs. Checking for DIC, hemolysis. CBC daily to monitor for any further changes. Transfuse to keep Hgb above 7 INR was 1.9 today. When seen, pt had already received today's dose of warfarin. Hold any further doses until confirmed no acute bleed. If any evidence of acute bleeding, reverse INR with vit K. Current Visit: Yes Status: Chronic Priority: High Code(s): D50.9 - IRON DEFICIENCY ANEMIA, UNSPECIFIED SNOMED Code(s): 68240924
[2020-10-24 19:05] LABS: INR 1.9 (<1.2); Prothrombin Time 18.5 sec (9.0-12.0)
--- NOTE | 2020-10-24 19:35 | PN ---
PROGRESS NOTE This 75-year-old white female still has hemoglobin of 7.5, severe anemia, status post PEG tube replacement and wound in her abdomen. No signs of GI bleed. Denies any abdominal pain. No vomiting. Leukocytosis is improving. White count is 12.7, hemoglobin 7.5. CARDIOVASCULAR: S1, S2. LUNGS: Clear. GI: Soft. PEG tube in place. NEUROLOGIC: Cranial nerves intact. Severe protein-calorie malnutrition. Infected PEG tube site with MRSA. Continue local wound care, tube feeds. Possibly get a hematology consult for severe anemia prior to going back to the rehab center. Continue with Venofer infusion. MMODL / IJN: [id number] /
--- NOTE | 2020-10-24 20:20 | CT ---
EXAMINATION TYPE: CT abdomen pelvis wo con DATE OF EXAM: 10/24/2020 COMPARISON: 09/17/2020 HISTORY: Drop in Hgb. CT DLP: 1062.2 mGycm Automated exposure control for dose reduction was used. Images obtained from the diaphragm to the floor the pelvis without contrast. There is an enlarged heart. There is some interstitial infiltrate and atelectasis in both lower lobes . There is no pleural effusion. There is no pericardial effusion. Liver spleen stomach pancreas appear intact. The bile ducts are not dilated. There are small calcifie d gallstones. There is gastrostomy tube noted in the anterior stomach. There is no adrenal mass. Kidneys show satisfactory contrast opacification. There is no hydronephrosi s. Ureters are not dilated. There is no retroperitoneal adenopathy. Bladder distends smoothly. There is no inguinal hernia. There is no free fluid in the pelvis. There is no mesenteric edema. There is no ascites or free air. There is no bowel obstruction. Lumbar vertebra have normal alignment. There is no compression fracture. There is some osteopenia. Th ere is right hip nailing noted. Proximal left femur and hip joint appear intact. Sacroiliac joints ar e intact. IMPRESSION: Cardiomegaly. There is improvement in the infiltrate and atelectasis at the lung bases compared to ol d exam. No evidence of hemorrhage in the abdomen and pelvis. There is apparent revision of the gastro stomy tube compared to old exam.
[2020-10-24] MEDS: PRAVASTATIN SODIUM 40 MG TAB PO SCH (21:13)
[2020-10-24] MEDS: CHOLESTYRAMINE (WITH SUGAR) 4 GM PACKET PEG/G-TUBE SCH (21:13)
[2020-10-24] MEDS: INSULIN DETEMIR (LEVEMIR) 100 UNIT/ML SYR SQ SCH (21:13)
[2020-10-24 23:59] LABS: Glucose,Whole Blood 196 mg/dL (75-99)
[2020-10-25] MEDS: INSULIN ASPART (NovoLOG) 100 UNIT/ML VIAL SQ SCH ×4 (00:12→18:29)
[2020-10-25] MEDS: METOPROLOL TARTRATE 50 MG TAB PEG/G-TUBE SCH ×3 (05:53→22:09)
[2020-10-25] MEDS: GABAPENTIN 100 MG CAP PEG/G-TUBE SCH ×3 (05:54→21:52)
[2020-10-25 06:23] LABS: Glucose,Whole Blood 236 mg/dL (75-99)
[2020-10-25 07:08] LABS: INR 2.1 (<1.2); Prothrombin Time 20.4 sec (9.0-12.0)
[2020-10-25 07:09] LABS: Anisocytosis Slight; HCT 24.5 % (34.0-46.0); HGB 7.4 gm/dL (11.4-16.0); Hypochromasia Marked; MCH 27.2 pg (25.0-35.0); MCHC 30.1 g/dL (31.0-37.0); MCV 90.3 fL (80.0-100.0); Mean Platelet Volume 9.5; Platelet Count 224 k/uL (150-450); RBC 2.71 m/uL (3.80-5.40); RDW 19.7 % (11.5-15.5)
[2020-10-25] MEDS: DRY MOUTH SPRAY 44.3 SPRAY/44.3 ML SPRAY MUCOUS MEM SCH ×3 (09:08→18:35)
[2020-10-25] MEDS: metFORMIN 500 MG TAB PEG/G-TUBE SCH ×2 (09:09→18:28)
[2020-10-25] MEDS: DILTIAZEM ORAL 60 MG TAB PEG/G-TUBE SCH ×3 (09:09→21:55)
[2020-10-25] MEDS: FUROSEMIDE 40 MG TAB PEG/G-TUBE SCH ×2 (09:09→18:26)
[2020-10-25] MEDS: VORICONAZOLE 200 MG TAB PO SCH (09:10)
[2020-10-25] MEDS: SIMETHICONE 40 MG/0.6 ML DROPS 2,000 MG/30 ML BOTTLE PEG/G-TUBE SCH ×2 (09:11→18:33)
[2020-10-25] MEDS: SODIUM FERRIC GLUCONAT-SUCROSE 125 MG in SODIUM CHLORIDE 0.9% 100 ML IVPB SCH (09:32)
[2020-10-25 09:43] LABS: Basophils # (M) 0.13 k/uL (0-0.2); Neutrophils % (M) 78 %; Nucleated Red Blood Cells 3 /100 WBC (0-0); Total Cells Counted 200
[2020-10-25 09:44] LABS: Eosinophils # (M) 0.63 k/uL (0-0.7); Lymphocytes # (M) 1.88 k/uL (1.0-4.8); Monocytes # (M) 0.25 k/uL (0-1.0); Neutrophils # (M) 9.75 k/uL (1.3-7.7); Polychromasia Present; WBC 12.5 k/uL (3.8-10.6)
[2020-10-25 11:56] LABS: Glucose,Whole Blood 191 mg/dL (75-99)
--- NOTE | 2020-10-25 12:55 | P.PN ---
Subjective Progress Note Date: 10/25/20 CHIEF COMPLAINT: PEG tube site infection HISTORY OF PRESENT ILLNESS: Patient is status post EGD with new PEG tube placement. Patient to feedings are at 60 mL per hour. No residual reported. Patient lying in bed comfortably. No evidence of pain. No nausea or vomiting. Patient is anemic hemoglobin is 7.4. INR 2.1 She did have a fecal occult blood positive which is likely due to bleeding from her recent PEG tube insertion. Computed tomography scan abdomen and pelvis shows improvement in infiltrate and atelectasis at lung bases compared to old exam. No evidence of hemorrhage in the abdomen and pelvis. Hematology following regards to patient's anemia. Patient is receiving IV iron. Coumadin currently on hold. Patient seen and examined with Dr. Brower PHYSICAL EXAM: VITAL SIGNS: Reviewed. GENERAL: Well-developed in no acute distress. HEENT: No sclera icterus. Extraocular movements grossly intact. Moist buccal mucosa. Head is atraumatic, normocephalic. ABDOMEN: Soft. Nondistended. Old PEG tube site with Aquacel dressing. New PEG tube site clean dry and intact NEUROLOGIC: Nonverbal ASSESSMENT: 1. Infected PEG tube site and erosion of PEG tube status post new PEG tube placement 2. Severe protein calorie malnutrition 3. Iron deficiency Anemia PLAN: -Continue tube feedings per dietitian recommendations -Continue to monitor hemoglobin -No further surgical intervention planned at this time Physician Lighting Equipment Operator note has been reviewed by physician. Signing provider agrees with the documented findings, assessment, and plan of care. Objective - Vital Signs Vital signs: Vital Signs Temp 98.5 F 10/25/20 08:00 Pulse 74 10/25/20 08:00 Resp 16 10/25/20 08:00 BP 93/65 10/25/20 08:00 Pulse Ox 94 L 10/25/20 08:00 Intake & Output 10/24/20 10/25/20 10/25/20 18:59 06:59 18:59 Intake Total 60 120 0 Output Total 1300 700 Balance -1240 -580 0 Weight 91.5 kg Intake: Oral 0 Tube Feeding 60 120 Output: Urine 1300 700 Other: Voiding Method External Catheter External Catheter External Catheter # Bowel Movements 1 0 - Labs CBC & Chem 7: 10/25/20 06:50 10/24/20 08:00 Labs: Abnormal Lab Results - Last 24 Hours (Table) 10/24/20 10/24/20 10/24/20 Range/Units 18:00 18:14 18:14 WBC (3.8-10.6) k/uL RBC (3.80-5.40) m/uL Hgb (11.4-16.0) gm/dL Hct (34.0-46.0) % MCHC (31.0-37.0) g/dL RDW (11.5-15.5) % Neutrophils # (Manual) (1.3-7.7) k/uL Nucleated RBCs (0-0) /100 WBC Retic Count (0.5-2.0) % PT 18.5 H (9.0-12.0) sec INR 1.9 H (<1.2) APTT 36.0 H (22.0-30.0) sec POC Glucose (mg/dL) 178 H (75-99) mg/dL Lactate Dehydrogenase 623 H (313-618) U/L Stool Occult Blood (Negative) Crossmatch 10/24/20 10/24/20 10/24/20 Range/Units 18:14 21:00 23:57 WBC (3.8-10.6) k/uL RBC (3.80-5.40) m/uL Hgb (11.4-16.0) gm/dL Hct (34.0-46.0) % MCHC (31.0-37.0) g/dL RDW (11.5-15.5) % Neutrophils # (Manual) (1.3-7.7) k/uL Nucleated RBCs (0-0) /100 WBC Retic Count 5.2 H (0.5-2.0) % PT (9.0-12.0) sec INR (<1.2) APTT (22.0-30.0) sec POC Glucose (mg/dL) 196 H (75-99) mg/dL Lactate Dehydrogenase (313-618) U/L Stool Occult Blood Positive H (Negative) Crossmatch 10/25/20 10/25/20 10/25/20 Range/Units 06:21 06:50 06:50 WBC 12.5 H (3.8-10.6) k/uL RBC 2.71 L (3.80-5.40) m/uL Hgb 7.4 L (11.4-16.0) gm/dL Hct 24.5 L (34.0-46.0) % MCHC 30.1 L (31.0-37.0) g/dL RDW 19.7 H (11.5-15.5) % Neutrophils # (Manual) 9.75 H (1.3-7.7) k/uL Nucleated RBCs 3 H (0-0) /100 WBC Retic Count (0.5-2.0) % PT 20.4 H (9.0-12.0) sec INR 2.1 H (<1.2) APTT (22.0-30.0) sec POC Glucose (mg/dL) 236 H (75-99) mg/dL Lactate Dehydrogenase (313-618) U/L Stool Occult Blood (Negative) Crossmatch 10/25/20 10/25/20 Range/Units 06:50 11:54 WBC (3.8-10.6) k/uL RBC (3.80-5.40) m/uL Hgb (11.4-16.0) gm/dL Hct (34.0-46.0) % MCHC (31.0-37.0) g/dL RDW (11.5-15.5) % Neutrophils # (Manual) (1.3-7.7) k/uL Nucleated RBCs (0-0) /100 WBC Retic Count (0.5-2.0) % PT (9.0-12.0) sec INR (<1.2) APTT (22.0-30.0) sec POC Glucose (mg/dL) 191 H (75-99) mg/dL Lactate Dehydrogenase (313-618) U/L Stool Occult Blood (Negative) Crossmatch See Detail
[2020-10-25] MEDS: levETIRAcetam ORAL SOLN 500 MG/5 ML CUP PEG/G-TUBE SCH (13:03)
--- NOTE | 2020-10-25 13:53 | PN ---
PROGRESS NOTE DATE OF SERVICE: 10/25/2020 REASON FOR FOLLOWUP: Abdominal wall cellulitis, PEG tube site-related. INTERVAL HISTORY: The patient is afebrile. The patient is breathing comfortably, hemodynamically stable. Tolerating her tube feeds. No vomiting or diarrhea has been reported. PHYSICAL EXAMINATION: Blood pressure 93/65, pulse 94, temperature 98.5. She is 94% on room air. GENERAL DESCRIPTION: General description is an elderly female lying in bed in no distress. RESPIRATORY SYSTEM: Unlabored breathing. Clear to auscultation anteriorly. HEART: S1, S2. Regular rate and rhythm. ABDOMEN: Soft. No tenderness. LABS: Hemoglobin is 7.4, white count 12.5. DIAGNOSTIC IMPRESSION AND PLAN: Patient with abdominal wall cellulitis, PEG tube site-related. CT of abdomen and pelvis showed no evidence of any hemorrhage or abscess. She is on voriconazole; to finish therapy with another 7-10 days and close outpatient followup. MMODL / IJN: [id number] /
[2020-10-25 17:59] LABS: Glucose,Whole Blood 195 mg/dL (75-99)
[2020-10-25] MEDS ORDERED: WARFARIN 2 MG TAB PO ONE (18:00)
[2020-10-25] MEDS: LORATADINE 10 MG TAB PEG/G-TUBE SCH (18:28)
[2020-10-25] MEDS: MULTIVITAMINS, THERA LIQUID 237 ML BOTTLE PEG/G-TUBE SCH (18:32)
--- NOTE | 2020-10-25 19:03 | P.PN ---
Subjective Progress Note Date: 10/25/20 Principal diagnosis: prog anemia Pt remains non-verbal. Objective - Vital Signs Vital signs: Vital Signs Temp 98.8 F 10/25/20 16:26 Pulse 79 10/25/20 16:26 Resp 16 10/25/20 16:26 BP 88/58 10/25/20 16:26 Pulse Ox 97 10/25/20 16:26 Intake & Output 10/24/20 10/25/20 10/25/20 18:59 06:59 18:59 Intake Total 60 120 759 Output Total 1591 667 2138 Balance -7337 -149 -151 Weight 91.5 kg Intake: Oral 0 Tube Feeding 60 120 480 Blood Product 279 Rc Pheresis As-3 Unit 279 [id number] Output: Urine 6144 783 8866 Other: Voiding Method External Catheter External Catheter External Catheter # Bowel Movements 1 0 - Exam No evidence of bleeding at lines, no unusual bruising noted - Constitutional General appearance: Present: no acute distress, obese - Respiratory Respiratory: bilateral: CTA - Cardiovascular Heart sounds: normal: S1, S2 - Gastrointestinal General gastrointestinal: Present: normal bowel sounds, soft - Integumentary Integumentary: Present: pale - Musculoskeletal Musculoskeletal: Present: generalized weakness - Psychiatric Psychiatric: Absent: A&O x's 3, appropriate affect, intact judgment & insight - Labs CBC & Chem 7: 10/25/20 06:50 10/24/20 08:00 Labs: Abnormal Lab Results - Last 24 Hours (Table) 10/24/20 10/24/20 10/24/20 Range/Units 18:00 18:14 18:14 WBC (3.8-10.6) k/uL RBC (3.80-5.40) m/uL Hgb (11.4-16.0) gm/dL Hct (34.0-46.0) % MCHC (31.0-37.0) g/dL RDW (11.5-15.5) % Neutrophils # (Manual) (1.3-7.7) k/uL Nucleated RBCs (0-0) /100 WBC Retic Count (0.5-2.0) % PT 18.5 H (9.0-12.0) sec INR 1.9 H (<1.2) APTT 36.0 H (22.0-30.0) sec POC Glucose (mg/dL) 178 H (75-99) mg/dL Lactate Dehydrogenase 623 H (313-618) U/L Stool Occult Blood (Negative) Crossmatch 10/24/20 10/24/20 10/24/20 Range/Units 18:14 21:00 23:57 WBC (3.8-10.6) k/uL RBC (3.80-5.40) m/uL Hgb (11.4-16.0) gm/dL Hct (34.0-46.0) % MCHC (31.0-37.0) g/dL RDW (11.5-15.5) % Neutrophils # (Manual) (1.3-7.7) k/uL Nucleated RBCs (0-0) /100 WBC Retic Count 5.2 H (0.5-2.0) % PT (9.0-12.0) sec INR (<1.2) APTT (22.0-30.0) sec POC Glucose (mg/dL) 196 H (75-99) mg/dL Lactate Dehydrogenase (313-618) U/L Stool Occult Blood Positive H (Negative) Crossmatch 10/25/20 10/25/20 10/25/20 Range/Units 06:21 06:50 06:50 WBC 12.5 H (3.8-10.6) k/uL RBC 2.71 L (3.80-5.40) m/uL Hgb 7.4 L (11.4-16.0) gm/dL Hct 24.5 L (34.0-46.0) % MCHC 30.1 L (31.0-37.0) g/dL RDW 19.7 H (11.5-15.5) % Neutrophils # (Manual) 9.75 H (1.3-7.7) k/uL Nucleated RBCs 3 H (0-0) /100 WBC Retic Count (0.5-2.0) % PT 20.4 H (9.0-12.0) sec INR 2.1 H (<1.2) APTT (22.0-30.0) sec POC Glucose (mg/dL) 236 H (75-99) mg/dL Lactate Dehydrogenase (313-618) U/L Stool Occult Blood (Negative) Crossmatch 10/25/20 10/25/20 Range/Units 06:50 11:54 WBC (3.8-10.6) k/uL RBC (3.80-5.40) m/uL Hgb (11.4-16.0) gm/dL Hct (34.0-46.0) % MCHC (31.0-37.0) g/dL RDW (11.5-15.5) % Neutrophils # (Manual) (1.3-7.7) k/uL Nucleated RBCs (0-0) /100 WBC Retic Count (0.5-2.0) % PT (9.0-12.0) sec INR (<1.2) APTT (22.0-30.0) sec POC Glucose (mg/dL) 191 H (75-99) mg/dL Lactate Dehydrogenase (313-618) U/L Stool Occult Blood (Negative) Crossmatch See Detail Assessment and Plan (1) Iron deficiency anemia Narrative/Plan: On chart review there is iron deficiency noted from as far back as 2018. Pt has only been moderately anemic-9 range. Requested iron studies, on blood drawn yesterday, prior to iron infusion-still pending Precipitous drop in hemoglobin, stable today. CT AP without contrast, reports no evidence to suggest bleeding. Case briefly discuss with Surgeon, suspects may be from dilution from procedure. DIC and hemolysis work up negative. CBC daily to monitor for any further changes. Transfuse to keep Hgb above 7 INR was 2.1 today. Held coumadin dose for today. If Hgb remains stable can consider resuming. If further drop in Hgb suggesting acute bleeding, reverse INR with vit K. Current Visit: Yes Status: Chronic Priority: High Code(s): D50.9 - IRON DEFICIENCY ANEMIA, UNSPECIFIED SNOMED Code(s): 50430117 Plan: Attests: I have performed H&P and developed impression and plan of care for pt. Discussed with dictator. I agree with dictated note, documented as a scribe.
[2020-10-25 19:33] LABS: % Iron Saturation 16.31 (12.00-45.00)
[2020-10-25 19:41] LABS: Ferritin 67.2 ng/mL (10.0-291.0)
[2020-10-25] MEDS: PRAVASTATIN SODIUM 40 MG TAB PO SCH (21:52)
[2020-10-25] MEDS: FERROUS SULFATE ORAL ELIXIR 300 MG/5 ML CUP PEG/G-TUBE SCH (21:52)
[2020-10-25] MEDS: INSULIN DETEMIR (LEVEMIR) 100 UNIT/ML SYR SQ SCH (21:55)
[2020-10-25] MEDS: CHOLESTYRAMINE (WITH SUGAR) 4 GM PACKET PEG/G-TUBE SCH (21:55)
[2020-10-25] MEDS ORDERED: VORICONAZOLE 200 MG TAB ONE (23:30)
[2020-10-26 01:28] LABS: Glucose,Whole Blood 191 mg/dL (75-99)
[2020-10-26] MEDS: VORICONAZOLE 200 MG TAB PO SCH ×3 (02:39→21:37)
[2020-10-26] MEDS: INSULIN ASPART (NovoLOG) 100 UNIT/ML VIAL SQ SCH ×4 (02:39→18:35)
[2020-10-26 06:16] LABS: Glucose,Whole Blood 180 mg/dL (75-99)
[2020-10-26] MEDS: GABAPENTIN 100 MG CAP PEG/G-TUBE SCH ×3 (06:24→21:11)
[2020-10-26] MEDS: METOPROLOL TARTRATE 50 MG TAB PEG/G-TUBE SCH ×3 (06:24→23:58)
[2020-10-26 08:25] LABS: INR 1.6 (<1.2); Prothrombin Time 15.7 sec (9.0-12.0)
[2020-10-26 08:44] LABS: Anisocytosis Slight; Hypochromasia Slight; MCHC 33.2 g/dL (31.0-37.0); MCV 87.4 fL (80.0-100.0); Mean Platelet Volume 10.1; Platelet Count 233 k/uL (150-450); Poikilocytosis Moderate; RDW 19.7 % (11.5-15.5)
[2020-10-26] MEDS: DRY MOUTH SPRAY 44.3 SPRAY/44.3 ML SPRAY MUCOUS MEM SCH ×3 (08:44→16:26)
[2020-10-26] MEDS: FUROSEMIDE 40 MG TAB PEG/G-TUBE SCH ×2 (08:45→16:50)
[2020-10-26] MEDS: SODIUM FERRIC GLUCONAT-SUCROSE 125 MG in SODIUM CHLORIDE 0.9% 100 ML IVPB SCH (08:45)
[2020-10-26] MEDS: metFORMIN 500 MG TAB PEG/G-TUBE SCH ×2 (08:45→16:50)
[2020-10-26] MEDS: DILTIAZEM ORAL 60 MG TAB PEG/G-TUBE SCH ×3 (08:45→21:33)
[2020-10-26] MEDS: levETIRAcetam ORAL SOLN 500 MG/5 ML CUP PEG/G-TUBE SCH (08:46)
[2020-10-26] MEDS: SIMETHICONE 40 MG/0.6 ML DROPS 2,000 MG/30 ML BOTTLE PEG/G-TUBE SCH ×2 (08:46→16:51)
[2020-10-26 08:50] LABS: HGB 9.3 gm/dL (11.4-16.0)
[2020-10-26 10:44] LABS: Band Neutrophils % 1 %; Eosinophils # (M) 0.58 k/uL (0-0.7); Lymphocytes # (M) 1.58 k/uL (1.0-4.8); Monocytes # (M) 0.58 k/uL (0-1.0); Neutrophils % (M) 82 %; Nucleated Red Blood Cells 5 /100 WBC (0-0); Total Cells Counted 200; WBC 14.4 k/uL (3.8-10.6)
[2020-10-26 10:45] LABS: Polychromasia Present
--- NOTE | 2020-10-26 10:52 | P.PN ---
Subjective Progress Note Date: 10/26/20 CHIEF COMPLAINT: PEG tube site infection HISTORY OF PRESENT ILLNESS: Patient is status post EGD with new PEG tube placement. Patient's tube feedings are at goal at 60 mL per hour. No residual reported. She is having stools per nursing stools have been reported as black. Her last stool was yesterday. No vomiting reported. Patient denies any abdominal pain. Patient did receive 1 unit of blood her hemoglobin went up from 7.4-9.3 she is also receiving IV iron. Her white count did go up from 12.5-15.1 INR 1.6. Patient's Coumadin held yesterday Patient seen and examined with Dr. Brower PHYSICAL EXAM: VITAL SIGNS: Reviewed. GENERAL: Well-developed in no acute distress. HEENT: No sclera icterus. Extraocular movements grossly intact. Moist buccal mucosa. Head is atraumatic, normocephalic. ABDOMEN: Soft. Nondistended. Old PEG tube site with Aquacel dressing. New PEG tube site clean dry and intact NEUROLOGIC: Nonverbal ASSESSMENT: 1. Infected PEG tube site and erosion of PEG tube status post new PEG tube placement 2. Severe protein calorie malnutrition 3. Iron deficiency Anemia PLAN: -Continue tube feedings -Continue to monitor hemoglobin -No further surgical intervention planned at this time -Patient being followed by hematology for her anemia Physician Clock And Watch Hands Mounter note has been reviewed by physician. Signing provider agrees with the documented findings, assessment, and plan of care. Objective - Vital Signs Vital signs: Vital Signs Temp 98.4 F 10/26/20 08:00 Pulse 67 10/26/20 08:00 Resp 16 10/26/20 08:00 BP 105/56 10/26/20 08:00 Pulse Ox 94 L 10/26/20 08:00 Intake & Output 10/25/20 10/26/20 10/26/20 18:59 06:59 18:59 Intake Total 759 100 Output Total 1400 450 Balance -641 -450 100 Weight 89.5 kg 89.5 kg Intake: Intake, IV Titration 100 Amount Sodium Ferric Gluconat- 100 Sucrose 125 mg In Sodium Chloride 0.9% 100 ml @ 100 mls/hr IVPB DAILY [facility] Rx#:[id number] Oral 0 Tube Feeding 480 Blood Product 279 Rc Pheresis As-3 Unit 279 [id number] Output: Urine 1400 450 Other: Voiding Method External Catheter External Catheter External Catheter # Bowel Movements 0 - Labs CBC & Chem 7: 10/26/20 07:42 10/24/20 08:00 Labs: Abnormal Lab Results - Last 24 Hours (Table) 10/21/20 10/25/20 10/25/20 Range/Units 07:47 06:50 11:54 WBC (3.8-10.6) k/uL RBC (3.80-5.40) m/uL Hgb (11.4-16.0) gm/dL Hct (34.0-46.0) % RDW (11.5-15.5) % Neutrophils # (Manual) (1.3-7.7) k/uL Nucleated RBCs (0-0) /100 WBC PT (9.0-12.0) sec INR (<1.2) POC Glucose (mg/dL) 191 H (75-99) mg/dL Iron 46 L (50-170) ug/dL Crossmatch See Detail 10/25/20 10/26/20 10/26/20 Range/Units 17:57 00:06 06:15 WBC (3.8-10.6) k/uL RBC (3.80-5.40) m/uL Hgb (11.4-16.0) gm/dL Hct (34.0-46.0) % RDW (11.5-15.5) % Neutrophils # (Manual) (1.3-7.7) k/uL Nucleated RBCs (0-0) /100 WBC PT (9.0-12.0) sec INR (<1.2) POC Glucose (mg/dL) 195 H 191 H 180 H (75-99) mg/dL Iron (50-170) ug/dL Crossmatch 10/26/20 10/26/20 Range/Units 07:42 07:42 WBC 14.4 H (3.8-10.6) k/uL RBC 3.20 L (3.80-5.40) m/uL Hgb 9.3 L D (11.4-16.0) gm/dL Hct 28.0 L (34.0-46.0) % RDW 19.7 H (11.5-15.5) % Neutrophils # (Manual) 11.90 H (1.3-7.7) k/uL Nucleated RBCs 5 H (0-0) /100 WBC PT 15.7 H (9.0-12.0) sec INR 1.6 H (<1.2) POC Glucose (mg/dL) (75-99) mg/dL Iron (50-170) ug/dL Crossmatch
[2020-10-26 12:06] LABS: Glucose,Whole Blood 189 mg/dL (75-99)
[2020-10-26] MEDS ORDERED: PEG 3350-NA SULF,BICARB,CL/KCL 4,000 ML BOTTLE PEG/G-TUBE ONE (13:33)
--- NOTE | 2020-10-26 15:41 | PN ---
PROGRESS NOTE This is a 75-year-old white female. Her Coumadin was held due to PEG site infection and possible GI bleeding, as this was reported as black. Hemoglobin went from 7.4 to 9.3, receiving IV iron. White count is 12.5 to 5.1. Cardiovascular S1-S2. Neurologic: Alert and oriented x3. Psych: She does not talk. GI soft PEG tube site. Aquacel dressing. New PEG tube site dry and clean. ASSESSMENT: 1. Infected PEG tube site, erosion of the PEG tube, status post new PEG tube placement. 2. Protein-calorie malnutrition. 3. Iron deficiency anemia. Continue tube feedings. Monitor hemoglobin. No further surgical intervention. Hematology for possible holding of long-term anticoagulants will be seen. Precipitous drop in hemoglobin. CTAP without contrast. No evidence to suggest bleeding. Possible dilution from procedure and hemodialysis workup negative. CBC daily for any further changes. Transfuse to keep it above 7. INR is 2.1 today. Held Coumadin dose for today. Hemoglobin remains stable. Can consider resuming if further drop in hemoglobin reverse INR with vitamin K. Prognosis guarded. MMODL / IJN: [id number] /
--- NOTE | 2020-10-26 16:06 | PN ---
PROGRESS NOTE DATE OF SERVICE: 10/26/2020 REASON FOR FOLLOWUP: PEG tube site cellulitis. INTERVAL HISTORY: The patient is afebrile. The patient remains sleepy, lethargic, in no distress. She is breathing comfortably, tolerating her tube feed. No vomiting or diarrhea has been reported by the nursing staff. PHYSICAL EXAMINATION: Blood pressure is 111/49, pulse of 73, temperature 98.4. She is 94% on room air. GENERAL DESCRIPTION: General description is an elderly female lying in bed in no distress. RESPIRATORY SYSTEM: Unlabored breathing. Clear to auscultation anteriorly. HEART: S1, S2. Regular rate and rhythm. ABDOMEN: Soft. No tenderness. LABS: Hemoglobin is 9.3, white count 14.4. DIAGNOSTIC IMPRESSION AND PLAN: Patient with abdominal wall cellulitis with PEG tube infection, which has been discontinued, subsequently with a new PEG tube placement. Patient is covered with voriconazole. White count is still elevated. Will monitor closely. Continue supportive care. MMODL / IJN: [id number] /
[2020-10-26] MEDS: LORATADINE 10 MG TAB PEG/G-TUBE SCH (16:50)
[2020-10-26] MEDS: MULTIVITAMINS, THERA LIQUID 237 ML BOTTLE PEG/G-TUBE SCH (16:50)
[2020-10-26] MEDS: FERROUS SULFATE ORAL ELIXIR 300 MG/5 ML CUP PEG/G-TUBE SCH (16:52)
[2020-10-26] MEDS ORDERED: WARFARIN 3 MG TAB PO SCH (18:00)
[2020-10-26] MEDS ORDERED: WARFARIN 0.5 MG TAB PO ONE (18:00)
[2020-10-26 18:04] LABS: Glucose,Whole Blood 153 mg/dL (75-99)
--- NOTE | 2020-10-26 19:00 | P.PN ---
Subjective Progress Note Date: 10/26/20 Principal diagnosis: prog anemia, iron deficient Today, patient opened her eyes and did give a few word responses. When I asked how she was feeling, she said "terrible", she shook her head no when asked if it was nausea, need to go to the bathroom or specific area of pain or needing a pain pill, I think she just doesn't feel real good right now. Objective - Vital Signs Vital signs: Vital Signs Temp 97 F L 10/26/20 16:00 Pulse 72 10/26/20 16:00 Resp 16 10/26/20 16:00 BP 99/51 10/26/20 16:00 Pulse Ox 93 L 10/26/20 16:00 Intake & Output 10/25/20 10/26/20 10/26/20 18:59 06:59 18:59 Intake Total 759 680 Output Total 1400 450 Balance -641 -450 680 Weight 89.5 kg 89.5 kg 89.5 kg Intake: Intake, IV Titration 200 Amount Sodium Ferric Gluconat- 200 Sucrose 125 mg In Sodium Chloride 0.9% 100 ml @ 100 mls/hr IVPB DAILY [facility] Rx#:[id number] Oral 0 Tube Feeding 480 480 Blood Product 279 Rc Pheresis As-3 Unit 279 [id number] Output: Urine 1400 450 Other: Voiding Method External Catheter External Catheter External Catheter # Bowel Movements 0 - Exam No evidence of bleeding at lines, no unusual bruising noted - Constitutional General appearance: Present: cooperative, obese - EENT EENT Comment(s): very dry oral mucous membranes and lips Eyes: Present: anicteric sclerae ENT: Present: hearing grossly normal - Respiratory Respiratory: bilateral: CTA (weak inspiratory effort) - Cardiovascular Heart sounds: normal: S1, S2 Abnormal Heart Sounds: Present: systolic murmur - Peripheral edema leg Peripheral Edema: bilateral: None - Gastrointestinal Gastrointestinal Comment(s): PEG tube removal site seems to be healing well, no unusual drainage, bruising, redness or bleeding. Patient's new PEG tube seems to be working pretty well General gastrointestinal: Present: normal bowel sounds, soft - Musculoskeletal Musculoskeletal: Present: generalized weakness - Psychiatric Psychiatric: Present: A&O x's 3, appropriate affect, intact judgment & insight - Labs CBC & Chem 7: 10/26/20 07:42 10/24/20 08:00 Labs: Abnormal Lab Results - Last 24 Hours (Table) 10/21/20 10/26/20 10/26/20 Range/Units 07:47 00:06 06:15 WBC (3.8-10.6) k/uL RBC (3.80-5.40) m/uL Hgb (11.4-16.0) gm/dL Hct (34.0-46.0) % RDW (11.5-15.5) % Neutrophils # (Manual) (1.3-7.7) k/uL Nucleated RBCs (0-0) /100 WBC PT (9.0-12.0) sec INR (<1.2) POC Glucose (mg/dL) 191 H 180 H (75-99) mg/dL Iron 46 L (50-170) ug/dL 10/26/20 10/26/20 10/26/20 Range/Units 07:42 07:42 12:04 WBC 14.4 H (3.8-10.6) k/uL RBC 3.20 L (3.80-5.40) m/uL Hgb 9.3 L D (11.4-16.0) gm/dL Hct 28.0 L (34.0-46.0) % RDW 19.7 H (11.5-15.5) % Neutrophils # (Manual) 11.90 H (1.3-7.7) k/uL Nucleated RBCs 5 H (0-0) /100 WBC PT 15.7 H (9.0-12.0) sec INR 1.6 H (<1.2) POC Glucose (mg/dL) 189 H (75-99) mg/dL Iron (50-170) ug/dL 10/26/20 Range/Units 18:01 WBC (3.8-10.6) k/uL RBC (3.80-5.40) m/uL Hgb (11.4-16.0) gm/dL Hct (34.0-46.0) % RDW (11.5-15.5) % Neutrophils # (Manual) (1.3-7.7) k/uL Nucleated RBCs (0-0) /100 WBC PT (9.0-12.0) sec INR (<1.2) POC Glucose (mg/dL) 153 H (75-99) mg/dL Iron (50-170) ug/dL Assessment and Plan (1) Iron deficiency anemia Narrative/Plan: Iron deficiency noted on blood drawn 10/21. Pt had precipitous drop in hemoglobin over the last 4 days, she was given a unit of blood yesterday and coumadin was held. CT AP without contrast, no evidence to suggest bleeding. case discussed with surgical PA. Based on those iron studies that were done prior to surgical procedure suggestive of blood loss. Plan is for endoscopy tomorrow. Continue to hold Coumadin. DIC and hemolysis work up negative. CBC daily to monitor for any further changes. Transfuse only if Hgb <7 INR was 1.6 today. Current Visit: Yes Status: Chronic Priority: High Code(s): D50.9 - IRON DEFICIENCY ANEMIA, UNSPECIFIED SNOMED Code(s): 34640671
[2020-10-26] MEDS: PRAVASTATIN SODIUM 40 MG TAB PO SCH (21:11)
[2020-10-26] MEDS: INSULIN DETEMIR (LEVEMIR) 100 UNIT/ML SYR SQ SCH (21:11)
[2020-10-26] MEDS: CHOLESTYRAMINE (WITH SUGAR) 4 GM PACKET PEG/G-TUBE SCH (21:33)
[2020-10-27 00:09] LABS: Glucose,Whole Blood 108 mg/dL (75-99)
[2020-10-27] MEDS: INSULIN ASPART (NovoLOG) 100 UNIT/ML VIAL SQ SCH ×5 (00:49→23:56)
[2020-10-27 05:43] LABS: Anisocytosis Moderate; HCT 27.6 % (34.0-46.0); HGB 9.1 gm/dL (11.4-16.0); Hypochromasia Moderate; MCH 29.4 pg (25.0-35.0); MCHC 33.1 g/dL (31.0-37.0); MCV 88.8 fL (80.0-100.0); Mean Platelet Volume 11.4; Platelet Count 198 k/uL (150-450); Poikilocytosis Slight; RBC 3.11 m/uL (3.80-5.40); RDW 20.2 % (11.5-15.5)
[2020-10-27 05:48] LABS: INR 1.3 (<1.2)
[2020-10-27 06:06] LABS: Glucose,Whole Blood 99 mg/dL (75-99)
[2020-10-27 06:32] LABS: Band Neutrophils % 7 %; Eosinophils # (M) 0.36 k/uL (0-0.7); Lymphocytes # (M) 2.42 k/uL (1.0-4.8); Metamyelocytes # (M) 0.12 k/uL (0); Metamyelocytes % 1 %; Monocytes # (M) 0.36 k/uL (0-1.0); Neutrophils % (M) 67 %; Nucleated Red Blood Cells 2 /100 WBC (0-0); Total Cells Counted 200; WBC 12.1 k/uL (3.8-10.6)
[2020-10-27 06:33] LABS: Anisocytosis (M) Present; Poikilocytosis (M) Present; Polychromasia Present
[2020-10-27 06:56] LABS: ALT 19 U/L (4-34); AST 36 U/L (14-36); African American GFR (CKD) >90 (>60 ml/min/1.73 sqM); Albumin 2.7 g/dL (3.5-5.0); Alkaline Phosphatase 89 U/L (38-126); Anion Gap 6 mmol/L; Blood Urea Nitrogen 28 mg/dL (7-17); Carbon Dioxide 31 mmol/L (22-30); Chloride 102 mmol/L (98-107); Glucose 91 mg/dL (74-99); Non-African American GFR(CKD) >90 (>60 ml/min/1.73 sqM); Potassium 3.9 mmol/L (3.5-5.1); Sodium 139 mmol/L (137-145); Total Bilirubin 0.6 mg/dL (0.2-1.3); Total Protein 5.7 g/dL (6.3-8.2)
[2020-10-27] MEDS: METOPROLOL TARTRATE 50 MG TAB PEG/G-TUBE SCH ×3 (06:59→23:29)
[2020-10-27] MEDS: GABAPENTIN 100 MG CAP PEG/G-TUBE SCH ×3 (07:05→21:54)
[2020-10-27] MEDS: SODIUM FERRIC GLUCONAT-SUCROSE 125 MG in SODIUM CHLORIDE 0.9% 100 ML IVPB SCH (08:38)
[2020-10-27] MEDS: SODIUM CHLORIDE 0.9% 1,000 ML IV SCH ×2 (09:40→23:57)
[2020-10-27] MEDS ORDERED: IV FLUID CONTINUATION 1,000 ML IV ONE (11:31)
[2020-10-27] MEDS ORDERED: LIDOCAINE 1% INJ 10MG/ML (20 ML MDV) ONE (11:34)
[2020-10-27] MEDS ORDERED: PROPOFOL 10 MG/ML 20 ML VIAL IV ONE (11:34)
--- NOTE | 2020-10-27 11:54 | P.OP ---
Date of Procedure: 10/27/20 Preoperative Diagnosis: Anemia Postoperative Diagnosis: Anemia Procedure(s) Performed: Colonoscopy Anesthesia: MAC Surgeon: Marco A Brower Pathology: none sent Condition: stable Disposition: PACU Description of Procedure: The patient's placed on the endoscopy table in the lateral position. She received IV sedation. Digital rectal exam is performed which revealed a large node of melanotic liquid stool. Flexible colonoscope was then placed patient anus and passed with colon. Scope passed in the right colon due to the poor colonic prep. There is a large amount of melanotic liquid stool. This limited the view of the mucosa. The transverse colon appeared normal the descending colon. Normal the sigmoid colon had a few scattered diverticula. The rectum appeared normal. Scope was withdrawn for patient.
[2020-10-27 12:11] LABS: Glucose,Whole Blood 115 mg/dL (75-99)
[2020-10-27] MEDS: FUROSEMIDE 40 MG TAB PEG/G-TUBE SCH ×2 (12:41→18:16)
[2020-10-27] MEDS: metFORMIN 500 MG TAB PEG/G-TUBE SCH ×2 (12:41→18:17)
[2020-10-27] MEDS: DILTIAZEM ORAL 60 MG TAB PEG/G-TUBE SCH ×3 (12:42→23:29)
[2020-10-27] MEDS: DRY MOUTH SPRAY 44.3 SPRAY/44.3 ML SPRAY MUCOUS MEM SCH ×3 (12:42→18:37)
[2020-10-27] MEDS: SIMETHICONE 40 MG/0.6 ML DROPS 2,000 MG/30 ML BOTTLE PEG/G-TUBE SCH ×2 (12:43→18:37)
[2020-10-27 12:47] LABS: Anisocytosis Moderate; Basophils % (A) 0 %; Eosinophils # (A) 0.3 k/uL (0-0.7); Eosinophils % (A) 2 %; HCT 30.1 % (34.0-46.0); HGB 9.5 gm/dL (11.4-16.0); Hypochromasia Moderate; Lymphocytes # (A) 2.1 k/uL (1.0-4.8); Lymphocytes % (A) 18 %; MCH 28.8 pg (25.0-35.0); MCHC 31.5 g/dL (31.0-37.0); MCV 91.6 fL (80.0-100.0); Mean Platelet Volume 9.8; Monocytes # (A) 0.4 k/uL (0-1.0); Monocytes % (A) 4 %; Neutrophils # (A) 8.7 k/uL (1.3-7.7); Neutrophils % (A) 74 %; Platelet Count 182 k/uL (150-450); Poikilocytosis Slight; RBC 3.29 m/uL (3.80-5.40); RDW 20.1 % (11.5-15.5); WBC 11.7 k/uL (3.8-10.6)
[2020-10-27] MEDS: VORICONAZOLE 200 MG TAB PO SCH ×2 (12:58→23:29)
[2020-10-27] MEDS: levETIRAcetam ORAL SOLN 500 MG/5 ML CUP PEG/G-TUBE SCH (12:59)
[2020-10-27 13:17] LABS: Polychromasia Present
[2020-10-27 13:18] LABS: Mixed Population RBC Present
[2020-10-27 16:48] LABS: Glucose,Whole Blood 107 mg/dL (75-99)
[2020-10-27] MEDS ORDERED: WARFARIN 5 MG TAB PO ONE (18:00)
[2020-10-27] MEDS: LORATADINE 10 MG TAB PEG/G-TUBE SCH (18:17)
[2020-10-27] MEDS: MULTIVITAMINS, THERA LIQUID 237 ML BOTTLE PEG/G-TUBE SCH (18:37)
[2020-10-27 20:08] LABS: Anisocytosis Moderate; Basophils # (A) 0.1 k/uL (0-0.2); Basophils % (A) 1 %; Eosinophils # (A) 0.4 k/uL (0-0.7); Eosinophils % (A) 3 %; HCT 28.3 % (34.0-46.0); HGB 9.1 gm/dL (11.4-16.0); Hypochromasia Slight; Lymphocytes # (A) 2.4 k/uL (1.0-4.8); Lymphocytes % (A) 20 %; MCH 27.9 pg (25.0-35.0); MCHC 32.2 g/dL (31.0-37.0); Mean Platelet Volume 10.4; Monocytes # (A) 0.6 k/uL (0-1.0); Monocytes % (A) 5 %; Neutrophils # (A) 8.1 k/uL (1.3-7.7); Neutrophils % (A) 68 %; Platelet Count 195 k/uL (150-450); Poikilocytosis Slight; RBC 3.27 m/uL (3.80-5.40); RDW 21.1 % (11.5-15.5); WBC 11.9 k/uL (3.8-10.6)
[2020-10-27 20:10] LABS: MCV 86.6 fL (80.0-100.0)
[2020-10-27] MEDS: PRAVASTATIN SODIUM 40 MG TAB PO SCH (21:54)
[2020-10-27] MEDS: INSULIN DETEMIR (LEVEMIR) 100 UNIT/ML SYR SQ SCH (21:54)
[2020-10-27] MEDS: CHOLESTYRAMINE (WITH SUGAR) 4 GM PACKET PEG/G-TUBE SCH (21:55)
[2020-10-27] MEDS: FERROUS SULFATE ORAL ELIXIR 300 MG/5 ML CUP PEG/G-TUBE SCH (22:13)
[2020-10-27 23:38] LABS: Glucose,Whole Blood 144 mg/dL (75-99)
--- NOTE | 2020-10-28 00:21 | PN ---
PROGRESS NOTE DATE OF SERVICE: 10/27/2020 REASON FOR FOLLOWUP: PEG tube site cellulitis. INTERVAL HISTORY: The patient is afebrile. The patient is breathing comfortably. The patient remains sleepy and lethargic; unable to provide any history. No vomiting or diarrhea has been reported. PHYSICAL EXAMINATION: Blood pressure 125/78 with a pulse of 68, temperature 98.1. She is 96% on room air. GENERAL DESCRIPTION: General description is an elderly female lying in bed in no distress. RESPIRATORY SYSTEM: Unlabored breathing. Clear to auscultation anteriorly. HEART: S1, S2. Regular rate and rhythm. ABDOMEN: Soft. PEG tube site is currently covered. No drainage. LABS: Hemoglobin is , white count down to 11.9. DIAGNOSTIC IMPRESSION AND PLAN: Patient with PEG tube site cellulitis. Culture positive for Hannah glabrata and albicans. The patient is covered with voriconazole; to continue for another week and monitor her clinical course closely. Continue supportive care. MMODL / IJN: [id number] /
--- NOTE | 2020-10-28 05:32 | PN ---
PROGRESS NOTE 75-year-old white female with Hannah albicans wound infection over the PEG tube site. New PEG tube sites intact, has had some GI bleeding. Blood thinners have been on hold. Will possibly send her back to the rehab center, but will monitor hemoglobin. Cardiovascular S1-S2. Lungs clear. GI soft. Hematology negative Homans. Psych fair mood and affect. Blood pressure is high 90s over 70s GI is PEG tube intact ASSESSMENT: 1. Acute on chronic anemia, history of GI bleeding will have to hold off on her Coumadin as she has bright red blood stools, dark black stools. Continue PEG tube feedings. Give her IV ferritin p.r.n. 2. Gastrointestinal bleeding, anemia. 3. Hypertension. 4. Hannah wound infection. 5. Prognosis guarded. Monitor hemoglobin one more day and possible discharge home depending on blood thinners. MMODL / IJN: [id number] /
[2020-10-28 06:09] LABS: Glucose,Whole Blood 90 mg/dL (75-99)
[2020-10-28] MEDS: INSULIN ASPART (NovoLOG) 100 UNIT/ML VIAL SQ SCH ×4 (06:28→23:58)
[2020-10-28] MEDS: GABAPENTIN 100 MG CAP PEG/G-TUBE SCH ×3 (06:39→20:54)
[2020-10-28] MEDS: METOPROLOL TARTRATE 50 MG TAB PEG/G-TUBE SCH ×3 (06:39→22:35)
[2020-10-28 08:45] LABS: Anisocytosis Moderate; Eosinophils % (A) 2 %; HGB 8.7 gm/dL (11.4-16.0); Hypochromasia Moderate; Lymphocytes % (A) 15 %; MCH 28.2 pg (25.0-35.0); MCHC 31.1 g/dL (31.0-37.0); MCV 90.5 fL (80.0-100.0); Macrocytosis Slight; Mean Platelet Volume 8.3; Monocytes % (A) 4 %; Neutrophils % (A) 77 %; Platelet Count 224 k/uL (150-450); Poikilocytosis Slight; RDW 21.6 % (11.5-15.5); WBC 9.1 k/uL (3.8-10.6)
[2020-10-28 08:46] LABS: Basophils % (A) 1 %; Eosinophils # (A) 0.2 k/uL (0-0.7); Lymphocytes # (A) 1.3 k/uL (1.0-4.8); Monocytes # (A) 0.4 k/uL (0-1.0)
[2020-10-28 09:02] LABS: ALT 18 U/L (4-34); AST 30 U/L (14-36); African American GFR (CKD) >90 (>60 ml/min/1.73 sqM); Albumin 2.5 g/dL (3.5-5.0); Alkaline Phosphatase 94 U/L (38-126); Anion Gap 4 mmol/L; Blood Urea Nitrogen 14 mg/dL (7-17); Calcium 8.6 mg/dL (8.4-10.2); Carbon Dioxide 29 mmol/L (22-30); Chloride 105 mmol/L (98-107); Glucose 104 mg/dL (74-99); INR 1.2 (<1.2); Non-African American GFR(CKD) >90 (>60 ml/min/1.73 sqM); Potassium 3.2 mmol/L (3.5-5.1); Prothrombin Time 12.4 sec (9.0-12.0); Sodium 138 mmol/L (137-145); Total Bilirubin 0.4 mg/dL (0.2-1.3); Total Protein 5.4 g/dL (6.3-8.2)
[2020-10-28] MEDS: metFORMIN 500 MG TAB PEG/G-TUBE SCH ×2 (09:50→17:05)
[2020-10-28] MEDS: DILTIAZEM ORAL 60 MG TAB PEG/G-TUBE SCH ×3 (09:50→22:35)
[2020-10-28] MEDS: FUROSEMIDE 40 MG TAB PEG/G-TUBE SCH ×2 (09:50→17:05)
[2020-10-28] MEDS: VORICONAZOLE 200 MG TAB PO SCH ×2 (09:51→20:55)
[2020-10-28] MEDS: levETIRAcetam ORAL SOLN 500 MG/5 ML CUP PEG/G-TUBE SCH (09:51)
[2020-10-28] MEDS: SODIUM FERRIC GLUCONAT-SUCROSE 125 MG in SODIUM CHLORIDE 0.9% 100 ML IVPB SCH (09:52)
[2020-10-28] MEDS: SIMETHICONE 40 MG/0.6 ML DROPS 2,000 MG/30 ML BOTTLE PEG/G-TUBE SCH ×2 (09:53→17:24)
[2020-10-28] MEDS: DRY MOUTH SPRAY 44.3 SPRAY/44.3 ML SPRAY MUCOUS MEM SCH ×3 (09:53→18:58)
[2020-10-28 10:30] LABS: Glucose,Whole Blood 125 mg/dL (75-99)
[2020-10-28] MEDS ORDERED: POTASSIUM CHLORIDE ER 20 MEQ TAB.ER PO STA (10:48)
[2020-10-28 12:10] LABS: Glucose,Whole Blood 149 mg/dL (75-99)
--- NOTE | 2020-10-28 12:24 | P.PN ---
Subjective Progress Note Date: 10/28/20 CHIEF COMPLAINT: PEG tube site infection HISTORY OF PRESENT ILLNESS: Patient is status post EGD with new PEG tube placement. Patient's tube feedings are at goal at 60 mL per hour. No residual reported. She has been having bowel movements. She denies any nausea or vomiting. She is status post colonoscopy. She denies any abdominal pain. Afebrile. WBC has normalized 9.1 hemoglobin is down from 9.1-8.7 INR 1.2 sodium 138 potassium 3.2 creatinine 0.47 albumin 2.5. Also note patient has been receiving oral iron and that may contribute to some for black stools. Patient is receiving IV iron. Patient is back on her Coumadin. Patient seen and examined with Dr. Brower PHYSICAL EXAM: VITAL SIGNS: Reviewed. GENERAL: Well-developed in no acute distress. HEENT: No sclera icterus. Extraocular movements grossly intact. Moist buccal mucosa. Head is atraumatic, normocephalic. ABDOMEN: Soft. Nondistended. Old PEG tube site with Aquacel dressing. New PEG tube site clean dry and intact NEUROLOGIC: Is awake and alert answering a few questions ASSESSMENT: 1. Infected PEG tube site and erosion of PEG tube status post new PEG tube placement 2. Severe protein calorie malnutrition 3. Iron deficiency Anemia status post colonoscopy. Colonoscopy poor prep. There was large amount of melanotic liquid stool. PLAN: -Continue tube feedings -Continue to monitor hemoglobin -No further surgical intervention planned at this time -Replace potassium Physician Industrial Engineering Manager note has been reviewed by physician. Signing provider agrees with the documented findings, assessment, and plan of care. Objective - Vital Signs Vital signs: Vital Signs Temp 97.9 F 10/28/20 03:55 Pulse 63 10/28/20 03:55 Resp 19 10/28/20 03:55 BP 97/64 10/28/20 06:52 Pulse Ox 97 10/28/20 03:55 Intake & Output 10/27/20 10/28/20 10/28/20 18:59 06:59 18:59 Intake Total 0 Output Total 0 200 Balance 0 -200 Weight 89.5 kg Intake: Oral 0 Output: Urine 0 200 Stool 0 Other: Voiding Method External Catheter External Catheter # Voids 1 2 1 # Bowel Movements 1 - Labs CBC & Chem 7: 10/28/20 07:51 10/28/20 07:51 Labs: Abnormal Lab Results - Last 24 Hours (Table) 10/27/20 10/27/20 10/27/20 Range/Units 12:09 12:10 16:46 WBC 11.7 H (3.8-10.6) k/uL RBC 3.29 L (3.80-5.40) m/uL Hgb 9.5 L (11.4-16.0) gm/dL Hct 30.1 L (34.0-46.0) % RDW 20.1 H (11.5-15.5) % Neutrophils # 8.7 H (1.3-7.7) k/uL PT (9.0-12.0) sec INR (<1.2) Potassium (3.5-5.1) mmol/L Creatinine (0.52-1.04) mg/dL Glucose (74-99) mg/dL POC Glucose (mg/dL) 115 H 107 H (75-99) mg/dL Total Protein (6.3-8.2) g/dL Albumin (3.5-5.0) g/dL 10/27/20 10/27/20 10/28/20 Range/Units 19:50 23:37 07:51 WBC 11.9 H (3.8-10.6) k/uL RBC 3.27 L (3.80-5.40) m/uL Hgb 9.1 L (11.4-16.0) gm/dL Hct 28.3 L (34.0-46.0) % RDW 21.1 H (11.5-15.5) % Neutrophils # 8.1 H (1.3-7.7) k/uL PT 12.4 H (9.0-12.0) sec INR 1.2 H (<1.2) Potassium (3.5-5.1) mmol/L Creatinine (0.52-1.04) mg/dL Glucose (74-99) mg/dL POC Glucose (mg/dL) 144 H (75-99) mg/dL Total Protein (6.3-8.2) g/dL Albumin (3.5-5.0) g/dL 10/28/20 10/28/20 10/28/20 Range/Units 07:51 07:51 10:29 WBC (3.8-10.6) k/uL RBC 3.10 L (3.80-5.40) m/uL Hgb 8.7 L (11.4-16.0) gm/dL Hct 28.0 L (34.0-46.0) % RDW 21.6 H (11.5-15.5) % Neutrophils # (1.3-7.7) k/uL PT (9.0-12.0) sec INR (<1.2) Potassium 3.2 L (3.5-5.1) mmol/L Creatinine 0.47 L (0.52-1.04) mg/dL Glucose 104 H (74-99) mg/dL POC Glucose (mg/dL) 125 H (75-99) mg/dL Total Protein 5.4 L (6.3-8.2) g/dL Albumin 2.5 L (3.5-5.0) g/dL
[2020-10-28] MEDS: POTASSIUM BICARBONATE/CIT AC 20 MEQ TABLET.EFF NG-TUBE SCH (13:15)
--- NOTE | 2020-10-28 14:30 | PN ---
PROGRESS NOTE DATE OF SERVICE: 10/28/2020 REASON FOR FOLLOWUP: Abdominal wall cellulitis. INTERVAL HISTORY: The patient is afebrile. The patient is currently breathing comfortably; slightly more awake. Did answer some simple questions. No vomiting or diarrhea has been reported by the nursing staff. PHYSICAL EXAMINATION: Blood pressure 115/65 with a pulse of 83, temperature . She is 97% on room air. GENERAL DESCRIPTION: General description is an elderly female lying in bed in no distress. RESPIRATORY SYSTEM: Unlabored breathing. Clear to auscultation anteriorly. HEART: S1, S2. Regular rate and rhythm. ABDOMEN: Soft. No tenderness. LABS: Hemoglobin 8.3, white count 9.1, BUN 14, creatinine 0.47. DIAGNOSTIC IMPRESSION AND PLAN: Patient with PEG tube cellulitis. Culture positive for Hannah glabrata. Patient's white count is responding to the voriconazole continue with close outpatient followup. MMODL / IJN: [id number] /
[2020-10-28 16:17] LABS: Glucose,Whole Blood 170 mg/dL (75-99)
[2020-10-28] MEDS: FERROUS SULFATE ORAL ELIXIR 300 MG/5 ML CUP PEG/G-TUBE SCH (17:05)
[2020-10-28] MEDS: MULTIVITAMINS, THERA LIQUID 237 ML BOTTLE PEG/G-TUBE SCH (17:23)
[2020-10-28] MEDS: LORATADINE 10 MG TAB PEG/G-TUBE SCH (17:29)
[2020-10-28] MEDS ORDERED: WARFARIN 5 MG TAB PO ONE (18:00)
[2020-10-28] MEDS: SODIUM CHLORIDE 0.9% 1,000 ML IV SCH (18:50)
[2020-10-28] MEDS: PRAVASTATIN SODIUM 40 MG TAB PO SCH (20:54)
[2020-10-28] MEDS: INSULIN DETEMIR (LEVEMIR) 100 UNIT/ML SYR SQ SCH (20:54)
[2020-10-28] MEDS: CHOLESTYRAMINE (WITH SUGAR) 4 GM PACKET PEG/G-TUBE SCH (22:36)
[2020-10-28 23:55] LABS: Glucose,Whole Blood 194 mg/dL (75-99)
[2020-10-29] MEDS: SODIUM CHLORIDE 0.9% 1,000 ML IV SCH ×2 (01:45→17:35)
[2020-10-29 06:20] LABS: Glucose,Whole Blood 128 mg/dL (75-99)
[2020-10-29] MEDS: METOPROLOL TARTRATE 50 MG TAB PEG/G-TUBE SCH ×3 (06:57→22:18)
[2020-10-29] MEDS: GABAPENTIN 100 MG CAP PEG/G-TUBE SCH ×3 (06:57→22:19)
[2020-10-29] MEDS: INSULIN ASPART (NovoLOG) 100 UNIT/ML VIAL SQ SCH ×3 (06:58→18:30)
[2020-10-29] MEDS: DRY MOUTH SPRAY 44.3 SPRAY/44.3 ML SPRAY MUCOUS MEM SCH ×3 (08:45→17:36)
[2020-10-29] MEDS: SIMETHICONE 40 MG/0.6 ML DROPS 2,000 MG/30 ML BOTTLE PEG/G-TUBE SCH ×2 (08:46→17:37)
[2020-10-29] MEDS: FUROSEMIDE 40 MG TAB PEG/G-TUBE SCH ×2 (08:46→17:36)
[2020-10-29] MEDS: metFORMIN 500 MG TAB PEG/G-TUBE SCH ×2 (08:46→17:35)
[2020-10-29] MEDS: levETIRAcetam ORAL SOLN 500 MG/5 ML CUP PEG/G-TUBE SCH (08:46)
[2020-10-29] MEDS: VORICONAZOLE 200 MG TAB PO SCH ×2 (08:47→22:19)
[2020-10-29] MEDS: SODIUM FERRIC GLUCONAT-SUCROSE 125 MG in SODIUM CHLORIDE 0.9% 100 ML IVPB SCH (08:47)
[2020-10-29] MEDS: DILTIAZEM ORAL 60 MG TAB PEG/G-TUBE SCH ×3 (08:47→22:18)
[2020-10-29 10:33] LABS: INR 1.3 (<1.2); Prothrombin Time 13.4 sec (9.0-12.0)
--- NOTE | 2020-10-29 11:36 | P.PN ---
Progress Note - Text Progress Note Date: 10/29/20 Patient may still. Her new PEG tube site is clean. She is tolerant tube feeds. Patient will see local wound care at her old PEG tube site.
--- NOTE | 2020-10-29 11:42 | PN ---
PROGRESS NOTE HISTORY: A 75-year-old white female. Waiting for Cardiology recommendations for blood thinner, status post a melanotic stool and blood transfusion. She has chronic atrial fibrillation. She has had strokes. She needs some kind of blood thinner. Hopefully cardiology can give us an atrial fibrillation blood thinner. Monitor hemoglobin make sure she doesn't bleed again prior to going to intermediate. She is getting PEG tube feedings. Her midline went out last night, she is going to try to get another midline. PHYSICAL EXAM: Temp 99, blood pressure 120 over 60s, 97 on room air, pulse 64, respiratory 18-20. ASSESSMENT: 1. Status post GI bleed. 2. Status post stroke. 3. Status post atrial fibrillation. 4. Status post infected PEG tube with fungal infection, for which she needs IV antibiotics for another 10 days and antifungals. PLAN: Continue wound care with Santyl. Prognosis is guarded. She has had stroke and she is aphasic essentially and does not talk much or move out of the bed. She needs high risk for stroke, another stroke if she goes home without a blood thinner. MMODL / IJN: [id number] /
[2020-10-29 11:52] LABS: Glucose,Whole Blood 107 mg/dL (75-99)
--- NOTE | 2020-10-29 16:11 | P.PN ---
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 Brower, chronic respiratory failure status post trach. Patient has not been seen in the office since 2017, used to Dr. Craig. We have been asked to see the patient in consultation for tachycardia. Patient presents to the emergency department from care home with evidence of cellulitis and infection at the PEG tube site. She underwent PEG tube replacement with Dr. Brower 10/20/20. Unclear when patient's last dose of coumadin was started, On admission patient's INR was subtherapeutic at 1.5. Per nursing overnight patient was found to be tachycardic heart rate in the 120s, HR improved, however, patient continued to be tachycardic in the 120s, and was then paced. This morning patient appears to be in atrial fibrillation with rapid ventricular response HR 120s. She did miss 3 doses of her metoprolol and cardizem prior to her procedure. On examination this morning patient is in sinus mechanism HR is now in the 90s. 10/29 Cardiology was reconsult it for anticoagulation recommendations. Patient has had prolonged course with changing of PEG tube however then developed melena with need for blood transfusion. Patient underwent a colonoscopy however no repeat EGD. Melena most likely related to a gastric source especially with recent EGD and PEG tube change. Patient however was taken off of anticoagulation. Patient denies any chest pain or pressure. She has limited insight given her prior stroke. Denies any dyspnea currently however. Patient is having continued dark stools per nursing. PHYSICAL EXAM: VITAL SIGNS: Reviewed. GENERAL: In no acute distres HEENT: Head is normocephalic. Pupils are equal, round. Sclerae anicteric. Mucous membranes of the mouth are moist. Neck supple. No JVD or thyromegaly LUNGS: Respirations even and unlabored. Lungs essentially clear to auscultation bilaterally. HEART: Irregular ate and rhythm. S1 and S2 heard. Mitral valve click noted, +2/6 systolic murmur ABDOMEN: Soft. Nondistended. Nontender. EXTREMITIES: Normal range of motion. No clubbing or cyanosis. Peripheral pulses intact. non pitting bilateral arm edema. NEUROLOGIC: Patient is awake, not oriented. ASSESSMENT: Paroxysmal atrial fibrillation on coumadin PEG Tube replacement on 10/20 Hypertension Rheumatic mitral stenosis status post mechanical valve placement 2000 Sick sinus syndrome with history of pacemaker insertion History of CVA with left-sided paralysis History of dysphagia with PEG tube placement Acute GI bleed with melena with continued dark stools PLAN: Unfortunately patient appears to be having GI bleed, likely upper GI source with melena noted. More than likely related to gastric source with recent PEG tube placement. The melena occurred after her PEG tube placement and would recommend repeat EGD if continued melena and anemia. Unfortunately no other anticoagulation recommended for mechanical mitral valve. Risk of valve thrombosis which would require repeat valve surgery and stroke is severely elevated if no anticoagulation and only recommendation is for heparin drip with bridging for therapeutic INR. Normally goal INR would be 2.5-3.5 given mechanical mitral valve however given bleeding would recommend 2-3. We will start heparin drip and may consider discharging with subcutaneous Lovenox/bridge however would not recommend discontinuing anticoagulation. Prognosis guarded. Objective - Vital Signs Vital signs: Vital Signs Temp 99.0 F 10/29/20 16:00 Pulse 64 10/29/20 16:00 Resp 20 10/29/20 16:00 BP 99/51 10/29/20 16:00 Pulse Ox 96 10/29/20 16:00 Intake & Output 10/28/20 10/29/20 10/29/20 18:59 06:59 18:59 Intake Total 0 60 Output Total 0 0 Balance 0 0 60 Weight 92 kg Intake: Oral 0 0 Tube Feeding 60 Output: Stool 0 0 Other: Voiding Method External Catheter External Catheter # Voids 1 1 2 # Bowel Movements 1 1 - Labs CBC & Chem 7: 10/28/20 07:51 10/29/20 10:00 Labs: Abnormal Lab Results - Last 24 Hours (Table) 10/28/20 10/28/20 10/29/20 Range/Units 16:15 23:54 06:19 PT (9.0-12.0) sec INR (<1.2) POC Glucose (mg/dL) 170 H 194 H 128 H (75-99) mg/dL 10/29/20 10/29/20 Range/Units 10:00 11:51 PT 13.4 H (9.0-12.0) sec INR 1.3 H (<1.2) POC Glucose (mg/dL) 107 H (75-99) mg/dL
--- NOTE | 2020-10-29 16:21 | PN ---
PROGRESS NOTE DATE OF SERVICE: 10/29/ REASON FOR FOLLOWUP: PEG tube site cellulitis. INTERVAL HISTORY: Patient is afebrile. The patient is currently breathing comfortably. Hemodynamically stable. Tolerating tube feeds. No vomiting. Denies any changes per the nursing staff. PHYSICAL EXAMINATION: Blood pressure 98/64, pulse of 73, temperature 99. She is 97% on room air. General description is an elderly female lying in bed in no distress. Respiratory system unlabored breathing. Clear to auscultation anteriorly. Heart S1, S2. Regular rate and rhythm. Abdomen soft, no tenderness. LABS: INR is 1.3. DIAGNOSTIC IMPRESSION AND PLAN: Patient with PEG tube site cellulitis, status post removal of the fact and placement of new tube. The patient is culture positive for Hannah glabrata. Overall improvement on antibiotic which will continue for another week to finish course of therapy. Continue supportive care. MMODL / IJN: [id number] /
[2020-10-29] MEDS: LORATADINE 10 MG TAB PEG/G-TUBE SCH (17:35)
[2020-10-29] MEDS: FERROUS SULFATE ORAL ELIXIR 300 MG/5 ML CUP PEG/G-TUBE SCH (17:36)
[2020-10-29] MEDS: HEPARIN SOD,PORK IN 0.45% NACL 25,000 UNIT in 0.45% NACL 1 250ML.BAG IV SCH (17:36)
[2020-10-29] MEDS: MULTIVITAMINS, THERA LIQUID 237 ML BOTTLE PEG/G-TUBE SCH (17:37)
[2020-10-29 18:00] LABS: Glucose,Whole Blood 137 mg/dL (75-99)
[2020-10-29] MEDS ORDERED: WARFARIN 7.5 MG TAB PO ONE (18:00)
[2020-10-29] MEDS ORDERED: WARFARIN 10 MG TAB PO ONE (18:00)
[2020-10-29] MEDS: CHOLESTYRAMINE (WITH SUGAR) 4 GM PACKET PEG/G-TUBE SCH (22:18)
[2020-10-29] MEDS: PRAVASTATIN SODIUM 40 MG TAB PO SCH (22:18)
[2020-10-29 22:22] LABS: Glucose,Whole Blood 155 mg/dL (75-99)
[2020-10-29] MEDS: INSULIN DETEMIR (LEVEMIR) 100 UNIT/ML SYR SQ SCH (22:22)
[2020-10-29 23:56] LABS: Glucose,Whole Blood 177 mg/dL (75-99)
[2020-10-30] MEDS: INSULIN ASPART (NovoLOG) 100 UNIT/ML VIAL SQ SCH ×4 (00:21→18:11)
[2020-10-30] MEDS: HEPARIN SODIUM 1,000 UN/ML (10ML VL) IV PRN ×2 (00:32→06:51)
[2020-10-30] MEDS: ACETAMINOPHEN ORAL SUSP (PEDS) 3,840 MG/120 ML BOTTLE PEG/G-TUBE PRN ×3 (00:53→20:55)
[2020-10-30 06:19] LABS: Glucose,Whole Blood 186 mg/dL (75-99)
[2020-10-30 06:24] LABS: INR 1.6 (<1.2); Partial Thromboplastin Time 36.7 sec (22.0-30.0); Prothrombin Time 15.6 sec (9.0-12.0)
[2020-10-30] MEDS: METOPROLOL TARTRATE 50 MG TAB PEG/G-TUBE SCH ×3 (06:51→20:46)
[2020-10-30] MEDS: GABAPENTIN 100 MG CAP PEG/G-TUBE SCH ×3 (06:51→20:46)
[2020-10-30] MEDS: SODIUM CHLORIDE 0.9% 1,000 ML IV SCH ×2 (06:52→17:55)
[2020-10-30 07:04] LABS: Anisocytosis Moderate; Basophils # (A) 0.1 k/uL (0-0.2); Basophils % (A) 1 %; Eosinophils # (A) 0.2 k/uL (0-0.7); Eosinophils % (A) 2 %; HCT 27.7 % (34.0-46.0); HGB 8.6 gm/dL (11.4-16.0); Hypochromasia Moderate; Lymphocytes % (A) 19 %; MCH 28.8 pg (25.0-35.0); MCHC 31.1 g/dL (31.0-37.0); MCV 92.6 fL (80.0-100.0); Macrocytosis Slight; Mean Platelet Volume 8.5; Monocytes # (A) 0.5 k/uL (0-1.0); Monocytes % (A) 4 %; Neutrophils # (A) 7.9 k/uL (1.3-7.7); Neutrophils % (A) 72 %; Platelet Count 209 k/uL (150-450); Poikilocytosis Slight; RBC 2.99 m/uL (3.80-5.40); RDW 22.7 % (11.5-15.5); WBC 10.9 k/uL (3.8-10.6)
[2020-10-30] MEDS: DRY MOUTH SPRAY 44.3 SPRAY/44.3 ML SPRAY MUCOUS MEM SCH ×3 (08:05→17:54)
[2020-10-30] MEDS: levETIRAcetam ORAL SOLN 500 MG/5 ML CUP PEG/G-TUBE SCH (08:06)
[2020-10-30] MEDS: metFORMIN 500 MG TAB PEG/G-TUBE SCH ×2 (08:06→17:54)
[2020-10-30] MEDS: SIMETHICONE 40 MG/0.6 ML DROPS 2,000 MG/30 ML BOTTLE PEG/G-TUBE SCH ×2 (08:06→17:55)
[2020-10-30] MEDS: FUROSEMIDE 40 MG TAB PEG/G-TUBE SCH ×2 (08:06→17:54)
[2020-10-30] MEDS: DILTIAZEM ORAL 60 MG TAB PEG/G-TUBE SCH ×3 (08:07→20:46)
[2020-10-30] MEDS: SODIUM FERRIC GLUCONAT-SUCROSE 125 MG in SODIUM CHLORIDE 0.9% 100 ML IVPB SCH (08:07)
[2020-10-30] MEDS: VORICONAZOLE 200 MG TAB PO SCH ×2 (08:07→20:46)
--- NOTE | 2020-10-30 11:57 | P.PN ---
Progress Note - Text Progress Note Date: 10/30/20 Patient been stable. Her new PEG site is clean. She'll the local wound care on the old PEG tube site.
[2020-10-30 12:00] LABS: Glucose,Whole Blood 217 mg/dL (75-99)
[2020-10-30] MEDS: HEPARIN SOD,PORK IN 0.45% NACL 25,000 UNIT in 0.45% NACL 1 250ML.BAG IV SCH (12:13)
[2020-10-30] MEDS: LORATADINE 10 MG TAB PEG/G-TUBE SCH (17:54)
[2020-10-30] MEDS: FERROUS SULFATE ORAL ELIXIR 300 MG/5 ML CUP PEG/G-TUBE SCH (17:54)
[2020-10-30] MEDS: MULTIVITAMINS, THERA LIQUID 237 ML BOTTLE PEG/G-TUBE SCH (17:54)
[2020-10-30] MEDS ORDERED: WARFARIN 7.5 MG TAB PO ONE (18:00)
[2020-10-30 18:06] LABS: Glucose,Whole Blood 175 mg/dL (75-99)
[2020-10-30 20:35] LABS: Glucose,Whole Blood 173 mg/dL (75-99)
[2020-10-30] MEDS: PRAVASTATIN SODIUM 40 MG TAB PO SCH (20:46)
[2020-10-30] MEDS: CHOLESTYRAMINE (WITH SUGAR) 4 GM PACKET PEG/G-TUBE SCH (20:47)
[2020-10-30] MEDS: INSULIN DETEMIR (LEVEMIR) 100 UNIT/ML SYR SQ SCH (20:57)
--- NOTE | 2020-10-30 20:58 | P.PN ---
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 Brower, chronic respiratory failure status post trach. Patient has not been seen in the office since 2017, used to Dr. Craig. We have been asked to see the patient in consultation for tachycardia. Patient presents to the emergency department from senior care with evidence of cellulitis and infection at the PEG tube site. She underwent PEG tube replacement with Dr. Brower 10/20/20. Unclear when patient's last dose of coumadin was started, On admission patient's INR was subtherapeutic at 1.5. Per nursing overnight patient was found to be tachycardic heart rate in the 120s, HR improved, however, patient continued to be tachycardic in the 120s, and was then paced. This morning patient appears to be in atrial fibrillation with rapid ventricular response HR 120s. She did miss 3 doses of her metoprolol and cardizem prior to her procedure. On examination this morning patient is in sinus mechanism HR is now in the 90s. 10/29 Cardiology was reconsult it for anticoagulation recommendations. Patient has had prolonged course with changing of PEG tube however then developed melena with need for blood transfusion. Patient underwent a colonoscopy however no repeat EGD. Melena most likely related to a gastric source especially with recent EGD and PEG tube change. Patient however was taken off of anticoagulation. Patient denies any chest pain or pressure. She has limited insight given her prior stroke. Denies any dyspnea currently however. Patient is having continued dark stools per nursing. 10/30 Patient seen and examined. Patient denies any pain. Hemoglobin 8.6 today, INR 1.6. PHYSICAL EXAM: VITAL SIGNS: Reviewed. GENERAL: In no acute distres HEENT: Head is normocephalic. Pupils are equal, round. Sclerae anicteric. Mucous membranes of the mouth are moist. Neck supple. No JVD or thyromegaly LUNGS: Respirations even and unlabored. Lungs essentially clear to auscultation bilaterally. HEART: Irregular ate and rhythm. S1 and S2 heard. Mitral valve click noted, +2/6 systolic murmur ABDOMEN: Soft. Nondistended. Nontender. EXTREMITIES: Normal range of motion. No clubbing or cyanosis. Peripheral pulses intact. non pitting bilateral arm edema. NEUROLOGIC: Patient is awake, not oriented. ASSESSMENT: Paroxysmal atrial fibrillation on coumadin PEG Tube replacement on 10/20 Hypertension Rheumatic mitral stenosis status post mechanical valve placement 2000 Sick sinus syndrome with history of pacemaker insertion History of CVA with left-sided paralysis History of dysphagia with PEG tube placement Acute GI bleed with melena with continued dark stools PLAN: INR 1.6 today. Continue with pharmacy dosing with goal INR 2-3, ideally goal INR 2.5-3.5 with mechanical mitral valve however given GI bleed and melena we will decrease 2-3. Continue supportive care. Prognosis guarded. Objective - Vital Signs Vital signs: Vital Signs Temp 99.8 F H 10/30/20 20:00 Pulse 92 10/30/20 20:00 Resp 18 10/30/20 20:00 BP 131/80 10/30/20 20:00 Pulse Ox 98 10/30/20 20:00 Intake & Output 10/30/20 10/30/20 10/31/20 06:59 18:59 06:59 Intake Total 209.133 379.565 Output Total 600 400 Balance -390.867 -20.435 Weight 93.5 kg Intake: Intake, IV Titration 149.133 79.565 Amount Heparin Sod,Pork in 0.45% 149.133 79.565 NaCl 25,000 unit In 0.45 % NaCl 1 250ml.bag @ 10. 869 UNITS/KG/HR 9.999 mls /hr IV .Q24H [facility] Rx#: [id number] Oral 0 Tube Feeding 60 300 Output: Urine 600 400 Stool 0 Other: Voiding Method External Catheter External Catheter External Catheter - Labs CBC & Chem 7: 10/30/20 05:48 10/29/20 10:00 Labs: Abnormal Lab Results - Last 24 Hours (Table) 10/29/20 10/29/20 10/30/20 Range/Units 22:21 23:54 05:46 WBC (3.8-10.6) k/uL RBC (3.80-5.40) m/uL Hgb (11.4-16.0) gm/dL Hct (34.0-46.0) % RDW (11.5-15.5) % Neutrophils # (1.3-7.7) k/uL PT 15.6 H (9.0-12.0) sec INR 1.6 H (<1.2) APTT 36.7 H (22.0-30.0) sec POC Glucose (mg/dL) 155 H 177 H (75-99) mg/dL 10/30/20 10/30/20 10/30/20 Range/Units 05:48 06:17 11:59 WBC 10.9 H (3.8-10.6) k/uL RBC 2.99 L (3.80-5.40) m/uL Hgb 8.6 L (11.4-16.0) gm/dL Hct 27.7 L (34.0-46.0) % RDW 22.7 H (11.5-15.5) % Neutrophils # 7.9 H (1.3-7.7) k/uL PT (9.0-12.0) sec INR (<1.2) APTT (22.0-30.0) sec POC Glucose (mg/dL) 186 H 217 H (75-99) mg/dL 10/30/20 10/30/20 10/30/20 Range/Units 12:40 18:04 20:34 WBC (3.8-10.6) k/uL RBC (3.80-5.40) m/uL Hgb (11.4-16.0) gm/dL Hct (34.0-46.0) % RDW (11.5-15.5) % Neutrophils # (1.3-7.7) k/uL PT (9.0-12.0) sec INR (<1.2) APTT 51.7 H (22.0-30.0) sec POC Glucose (mg/dL) 175 H 173 H (75-99) mg/dL
--- NOTE | 2020-10-30 22:58 | PN ---
PROGRESS NOTE DATE OF SERVICE: 10/30/2020. REASON FOR FOLLOW UP: PEG tube site cellulitis. INTERVAL HISTORY: The patient is afebrile with some low-grade fever of 99.9. The patient is hemodynamically stable. Patient is breathing comfortably on room air. Tolerating tube feeds. No vomiting, diarrhea or any other changes reported by the nursing staff. The patient herself unable to provide any history. PHYSICAL EXAMINATION: Blood pressure 131/80 with a pulse of 92, temperature 99.2. She is 98% on room air. General description is an elderly female lying in bed in no distress. Respiratory system: Unlabored breathing, clear to auscultation anteriorly. Heart S1, S2. Regular rate and rhythm. Abdomen: Soft. PEG tube site with minimal erythema. No drainage. LABS: Hemoglobin 8.6, white count 10.9, BUN of 14, creatinine 0.47. DIAGNOSTIC IMPRESSION AND PLAN: Patient with PEG tube site cellulitis status post . The patient is currently covered with voriconazole on the basis of the cultures showing Hannah glabrata to be continued and we will monitor clinical course closely. Continue supportive care. MMODL / IJN: [id number] /
[2020-10-31 00:41] LABS: Glucose,Whole Blood 207 mg/dL (75-99)
[2020-10-31] MEDS: INSULIN ASPART (NovoLOG) 100 UNIT/ML VIAL SQ SCH ×4 (00:45→17:22)
[2020-10-31] MEDS: HEPARIN SOD,PORK IN 0.45% NACL 25,000 UNIT in 0.45% NACL 1 250ML.BAG IV SCH (04:27)
[2020-10-31] MEDS: METOPROLOL TARTRATE 50 MG TAB PEG/G-TUBE SCH ×3 (05:55→20:49)
[2020-10-31] MEDS: GABAPENTIN 100 MG CAP PEG/G-TUBE SCH ×3 (05:55→20:49)
[2020-10-31] MEDS: SIMETHICONE 40 MG/0.6 ML DROPS 2,000 MG/30 ML BOTTLE PEG/G-TUBE SCH ×2 (06:03→17:22)
[2020-10-31 06:36] LABS: Glucose,Whole Blood 187 mg/dL (75-99)
[2020-10-31] MEDS: SODIUM CHLORIDE 0.9% 1,000 ML IV SCH (08:08)
[2020-10-31] MEDS: DRY MOUTH SPRAY 44.3 SPRAY/44.3 ML SPRAY MUCOUS MEM SCH ×3 (08:17→17:20)
[2020-10-31] MEDS: levETIRAcetam ORAL SOLN 500 MG/5 ML CUP PEG/G-TUBE SCH (08:17)
[2020-10-31] MEDS: FUROSEMIDE 40 MG TAB PEG/G-TUBE SCH ×2 (08:17→17:21)
[2020-10-31] MEDS: DILTIAZEM ORAL 60 MG TAB PEG/G-TUBE SCH ×3 (08:17→20:49)
[2020-10-31] MEDS: metFORMIN 500 MG TAB PEG/G-TUBE SCH ×2 (08:17→17:22)
[2020-10-31] MEDS: VORICONAZOLE 200 MG TAB PO SCH ×2 (08:18→20:49)
[2020-10-31 09:11] LABS: INR 3.9 (<1.2); Prothrombin Time 37.4 sec (9.0-12.0)
[2020-10-31 09:30] LABS: Partial Thromboplastin Time >200.0 sec (22.0-30.0)
[2020-10-31] MEDS: SODIUM FERRIC GLUCONAT-SUCROSE 125 MG in SODIUM CHLORIDE 0.9% 100 ML IVPB SCH (09:49)
--- NOTE | 2020-10-31 11:31 | P.PN ---
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 Brower, chronic respiratory failure status post trach. Patient has not been seen in the office since 2018, used to Dr. Craig. We have been asked to see the patient in consultation for tachycardia. Patient [facility] department from [facility] with evidence of cellulitis and infection at the PEG tube site. She underwent PEG tube replacement with Dr. Brower 10/20/20. Unclear when patient's last dose of coumadin was started, On admission patient's INR was subtherapeutic at 1.5. Per nursing overnight patient was found to be tachycardic heart rate in the 120s, HR improved, however, patient continued to be tachycardic in the 120s, and was then paced. This morning patient appears to be in atrial fibrillation with rapid ventricular response HR 120s. She did miss 3 doses of her metoprolol and cardizem prior to her procedure. On examination this morning patient is in sinus mechanism HR is now in the 90s. 10/31/2020 patient seen and examined sitting up in bed in no acute distress. She has no symptoms of chest discomfort or shortness of breath. Blood pressure 136/75 heart rate 72 afebrile maintaining oxygen saturation on room air. Laboratory data reviewed, PHYSICAL EXAM: GENERAL: In no acute distres HEENT: Head is normocephalic. Pupils are equal, round. Sclerae anicteric. Mucous membranes of the mouth are moist. Neck supple. No JVD or thyromegaly LUNGS: Respirations even and unlabored. Lungs essentially clear to auscultation bilaterally. HEART: Irregular ate and rhythm. S1 and S2 heard. Mitral valve click noted, +2/6 systolic murmur EXTREMITIES: Normal range of motion. No clubbing or cyanosis. Peripheral puls es intact. non pitting bilateral arm edema. ASSESSMENT: Paroxysmal atrial fibrillation on coumadin PEG Tube replacement on 10/20 Hypertension Rheumatic mitral stenosis status post mechanical valve placement 2000 Sick sinus syndrome with history of pacemaker insertion History of CVA with left-sided paralysis History of dysphagia with PEG tube placement Acute GI bleed with melena with continued dark stools PLAN: Discontinue heparin infusion. Pharmacy dosing of warfarin, target INR 2-3 given history of GI bleeding. Continue supportive care. Nurse Practitioner note has been reviewed, I agree with a documented findings and plan of care. Patient was seen and examined. Objective - Vital Signs Vital signs: Vital Signs Temp 98.9 F 10/31/20 08:00 Pulse 72 10/31/20 08:00 Resp 25 H 10/31/20 08:00 BP 136/75 10/31/20 08:00 Pulse Ox 93 L 10/31/20 08:00 Intake & Output 10/30/20 10/31/20 10/31/20 18:59 06:59 18:59 Intake Total 379.565 620.99 74.455 Output Total 400 800 0 Balance -20.435 -179.01 74.455 Weight 87 kg Intake: IV 84 Heparin Sod,Pork in 0.45% 84 NaCl 25,000 unit In 0.45 % NaCl 1 250ml.bag @ 10. 869 UNITS/KG/HR 9.999 mls /hr IV .Q24H [facility] Rx#: [id number] Intake, IV Titration 79.565 236.99 74.455 Amount Heparin Sod,Pork in 0.45% 79.565 236.99 74.455 NaCl 25,000 unit In 0.45 % NaCl 1 250ml.bag @ 10. 869 UNITS/KG/HR 9.999 mls /hr IV .Q24H [facility] Rx#: [id number] Tube Feeding 300 300 Output: Urine 400 800 Stool 0 0 Other: Voiding Method External Catheter External Catheter External Catheter # Voids 1 # Bowel Movements 1 1 - Labs CBC & Chem 7: 10/30/20 05:48 10/29/20 10:00 Labs: Abnormal Lab Results - Last 24 Hours (Table) 10/30/20 10/30/20 10/30/20 Range/Units 11:59 12:40 18:04 PT (9.0-12.0) sec INR (<1.2) APTT 51.7 H (22.0-30.0) sec POC Glucose (mg/dL) 217 H 175 H (75-99) mg/dL 10/30/20 10/31/20 10/31/20 Range/Units 20:34 00:39 05:53 PT (9.0-12.0) sec INR (<1.2) APTT (22.0-30.0) sec POC Glucose (mg/dL) 173 H 207 H 187 H (75-99) mg/dL 10/31/20 Range/Units 08:27 PT 37.4 H (9.0-12.0) sec INR 3.9 H (<1.2) APTT >200.0 H* (22.0-30.0) sec POC Glucose (mg/dL) (75-99) mg/dL
[2020-10-31 11:45] LABS: Glucose,Whole Blood 161 mg/dL (75-99)
--- NOTE | 2020-10-31 12:53 | P.PN ---
Subjective Progress Note Date: 10/31/20 CHIEF COMPLAINT: PEG tube site infection HISTORY OF PRESENT ILLNESS: Patient is status post EGD with new PEG tube placement. Patient's tube feedings are at goal at 60 mL per hour. No residual reported. Patient did have 2 episodes of diarrhea that were brownish in color. The dietitian has changed to feedings to vital 1.2. Nursing staff does report that the patient complained of some nausea earlier. No vomiting. No abdominal pain. Afebrile INR 3.9. Cardiology is discontinue the heparin drip and have pharmacy dosing Coumadin PHYSICAL EXAM: VITAL SIGNS: Reviewed. GENERAL: Well-developed in no acute distress. HEENT: No sclera icterus. Extraocular movements grossly intact. Moist buccal m ucosa. Head is atraumatic, normocephalic. ABDOMEN: Soft. Nondistended. Old PEG tube site with minimal erythema around the edges and Aquacel dressing. New PEG tube site clean dry and intact NEUROLOGIC: Is awake and alert answering a few questions ASSESSMENT: 1. Infected PEG tube site and erosion of PEG tube status post new PEG tube placement 2. Severe protein calorie malnutrition 3. Iron deficiency Anemia status post colonoscopy. Colonoscopy poor prep. There was large amount of melanotic liquid stool. PLAN: -Continue tube feedings -Continue to monitor hemoglobin -No further surgical intervention planned at this time Physician Playback Operator note has been reviewed by physician. Signing provider agrees with the documented findings, assessment, and plan of care. Objective - Vital Signs Vital signs: Vital Signs Temp 98.7 F 10/31/20 11:53 Pulse 71 10/31/20 11:53 Resp 25 H 10/31/20 08:00 BP 128/74 10/31/20 11:53 Pulse Ox 94 L 10/31/20 11:53 Intake & Output 10/30/20 10/31/20 10/31/20 18:59 06:59 18:59 Intake Total 379.565 620.99 74.455 Output Total 400 800 0 Balance -20.435 -179.01 74.455 Weight 87 kg Intake: IV 84 Heparin Sod,Pork in 0.45% 84 NaCl 25,000 unit In 0.45 % NaCl 1 250ml.bag @ 10. 869 UNITS/KG/HR 9.999 mls /hr IV .Q24H [facility] Rx#: [id number] Intake, IV Titration 79.565 236.99 74.455 Amount Heparin Sod,Pork in 0.45% 79.565 236.99 74.455 NaCl 25,000 unit In 0.45 % NaCl 1 250ml.bag @ 10. 869 UNITS/KG/HR 9.999 mls /hr IV .Q24H [facility] Rx#: [id number] Tube Feeding 300 300 Output: Urine 400 800 Stool 0 0 Other: Voiding Method External Catheter External Catheter External Catheter # Voids 1 # Bowel Movements 1 1 - Labs CBC & Chem 7: 10/30/20 05:48 10/29/20 10:00 Labs: Abnormal Lab Results - Last 24 Hours (Table) 10/30/20 10/30/20 10/30/20 Range/Units 12:40 18:04 20:34 PT (9.0-12.0) sec INR (<1.2) APTT 51.7 H (22.0-30.0) sec POC Glucose (mg/dL) 175 H 173 H (75-99) mg/dL 10/31/20 10/31/20 10/31/20 Range/Units 00:39 05:53 08:27 PT 37.4 H (9.0-12.0) sec INR 3.9 H (<1.2) APTT >200.0 H* (22.0-30.0) sec POC Glucose (mg/dL) 207 H 187 H (75-99) mg/dL 10/31/20 Range/Units 11:42 PT (9.0-12.0) sec INR (<1.2) APTT (22.0-30.0) sec POC Glucose (mg/dL) 161 H (75-99) mg/dL
--- NOTE | 2020-10-31 16:34 | XR ---
EXAMINATION TYPE: XR chest 2V DATE OF EXAM: 10/31/2020 COMPARISON: 09/15/[address] 10/24/2020 HISTORY: Cough TECHNIQUE: Frontal and lateral views of the chest are obtained on 3 images. FINDINGS: Blunting of the posterior costophrenic angles. The heart appears enlarged although the pat ient is rotated. Patient is post median sternotomy. Generator is present in the right pectoral region , there are leads in right atrium and ventricle. Interstitium is increased. No evident pneumothorax. Surgical clips present in the left breast. Question mitral annular calcification. Epicardial pacing l elizabeth are present. IMPRESSION: Correlate for possible pulmonary venous hypertension and interstitial edema, possible sm all pleural effusions or chronic pleural thickening and associated atelectasis versus edema, pneumoni a not excluded
[2020-10-31 16:43] LABS: Glucose,Whole Blood 194 mg/dL (75-99)
[2020-10-31] MEDS: ACETAMINOPHEN ORAL SUSP (PEDS) 3,840 MG/120 ML BOTTLE PEG/G-TUBE PRN ×2 (17:21→21:07)
[2020-10-31] MEDS: LORATADINE 10 MG TAB PEG/G-TUBE SCH (17:21)
[2020-10-31] MEDS: FERROUS SULFATE ORAL ELIXIR 300 MG/5 ML CUP PEG/G-TUBE SCH (17:21)
[2020-10-31] MEDS: MULTIVITAMINS, THERA LIQUID 237 ML BOTTLE PEG/G-TUBE SCH (17:22)
[2020-10-31] MEDS ORDERED: WARFARIN 0.5 MG TAB PO ONE (18:00)
[2020-10-31] MEDS: PIPERACILLIN-TAZOBACTAM 3.375 GM in SODIUM CHLORIDE 0.9% 100 ML IVPB SCH (18:53)
--- NOTE | 2020-10-31 19:16 | P.PN ---
Subjective Progress Note Date: 10/31/20 Principal diagnosis: prog anemia, iron deficient Today, patient was not responsive to questions, nursing reported that she was alert and oriented this AM. Objective - Vital Signs Vital signs: Vital Signs Temp 99.5 F 10/31/20 16:00 Pulse 82 10/31/20 16:00 Resp 18 10/31/20 16:00 BP 96/54 10/31/20 16:00 Pulse Ox 91 L 10/31/20 16:00 Intake & Output 10/31/20 10/31/20 11/01/20 06:59 18:59 06:59 Intake Total 620.99 974.455 Output Total 800 250 Balance -179.01 724.455 Weight 87 kg 87 kg Intake: IV 84 Heparin Sod,Pork in 0.45% 84 NaCl 25,000 unit In 0.45 % NaCl 1 250ml.bag @ 10. 869 UNITS/KG/HR 9.999 mls /hr IV .Q24H [facility] Rx#: [id number] Intake, IV Titration 236.99 74.455 Amount Heparin Sod,Pork in 0.45% 236.99 74.455 NaCl 25,000 unit In 0.45 % NaCl 1 250ml.bag @ 10. 869 UNITS/KG/HR 9.999 mls /hr IV .Q24H [facility] Rx#: [id number] Tube Feeding 300 900 Output: Urine 800 250 Stool 0 Other: Voiding Method External Catheter External Catheter # Voids 1 # Bowel Movements 1 1 - Exam No evidence of bleeding at lines, no unusual bruising noted, abd is soft, deep palpation does not elicit any s/s of pain - Labs CBC & Chem 7: 10/30/20 05:48 10/29/20 10:00 Labs: Abnormal Lab Results - Last 24 Hours (Table) 10/30/20 10/31/20 10/31/20 Range/Units 20:34 00:39 05:53 PT (9.0-12.0) sec INR (<1.2) APTT (22.0-30.0) sec POC Glucose (mg/dL) 173 H 207 H 187 H (75-99) mg/dL 10/31/20 10/31/20 10/31/20 Range/Units 08:27 11:42 16:13 PT 37.4 H (9.0-12.0) sec INR 3.9 H (<1.2) APTT >200.0 H* >200.0 H* (22.0-30.0) sec POC Glucose (mg/dL) 161 H (75-99) mg/dL 10/31/20 Range/Units 16:41 PT (9.0-12.0) sec INR (<1.2) APTT (22.0-30.0) sec POC Glucose (mg/dL) 194 H (75-99) mg/dL Assessment and Plan (1) Iron deficiency anemia Narrative/Plan: Iron deficiency noted on blood drawn 10/21. She remains on iron infusions per Attending. CBC ordered for AM DIC and hemolysis work up was negative. Transfuse if Hgb<7 Current Visit: Yes Status: Chronic Priority: High Code(s): D50.9 - IRON DEFICIENCY ANEMIA, UNSPECIFIED SNOMED Code(s): 30840955 Plan: .
[2020-10-31 19:44] LABS: Glucose,Whole Blood 226 mg/dL (75-99)
[2020-10-31] MEDS: INSULIN DETEMIR (LEVEMIR) 100 UNIT/ML SYR SQ SCH (20:49)
[2020-10-31] MEDS: PRAVASTATIN SODIUM 40 MG TAB PO SCH (20:49)
[2020-10-31] MEDS: CHOLESTYRAMINE (WITH SUGAR) 4 GM PACKET PEG/G-TUBE SCH (20:50)
[2020-10-31 23:59] LABS: Glucose,Whole Blood 226 mg/dL (75-99)
--- NOTE | 2020-11-01 05:41 | PN ---
PROGRESS NOTE DATE OF SERVICE: 10/31/2020 REASON FOR FOLLOW UP: Peg tube site cellulitis. INTERVAL HISTORY: The patient is afebrile. The patient is currently breathing comfortably. The patient mentioned remains to be lethargic unable to provide any history. No vomiting, diarrhea or other changes reported by the nursing staff. The patient is currently on room air. Sating 97%. EXAMINATION: Blood pressure 131/78, pulse of 82, temperature 98.9. She is 97% on room air. General description is an elderly female lying in bed in no distress. Respiratory system: Unlabored breathing, decreased breath sounds in the base. No wheeze. Heart S1, S2. Regular rate and rhythm. Abdomen soft, no tenderness. DIAGNOSTIC IMPRESSION AND PLAN: Patient with PEG tube site cellulitis. Culture positive for Hannah glabrata for which the patient is currently covered with voriconazole that will be continued for now. Monitor clinical course closely. Continue supportive care. MMODL / IJN: [id number] /
[2020-11-01 05:44] LABS: Glucose,Whole Blood 250 mg/dL (75-99)
--- NOTE | 2020-11-01 06:22 | PN ---
PROGRESS NOTE 75-year-old white female with respiratory distress. Today IV was hep-locked and gave her 40 of Lasix. She improved. She is 97 on room air. She has progressive anemia, iron deficient. She is really not responsive to questions. Temp 99.5, pulse 82, respiratory rate 18 to 16, blood pressure is 90s to 100 over 50s. 97 on room air. Cardiovascular S1, S2. Lungs clear. Hematology negative Homans. PEG tube in place. ASSESSMENT: 1. Iron deficiency anemia. 2. History of prior stroke. 3. Atrial fibrillation. Continue current treatments. Possibly discharge back to the senior care for wound care of her old PEG site and IV antibiotics for infection for the next 10 days or so. Prognosis guarded. MMODL / IJN: [id number] /
[2020-11-01] MEDS: SODIUM CHLORIDE 0.9% 1,000 ML IV SCH ×3 (06:43→23:06)
[2020-11-01] MEDS: PIPERACILLIN-TAZOBACTAM 3.375 GM in SODIUM CHLORIDE 0.9% 100 ML IVPB SCH ×4 (06:44→23:06)
[2020-11-01] MEDS: INSULIN ASPART (NovoLOG) 100 UNIT/ML VIAL SQ SCH ×5 (06:44→23:06)
[2020-11-01] MEDS: GABAPENTIN 100 MG CAP PEG/G-TUBE SCH ×3 (06:45→20:29)
[2020-11-01] MEDS: METOPROLOL TARTRATE 50 MG TAB PEG/G-TUBE SCH ×3 (06:46→21:15)
[2020-11-01] MEDS: SODIUM FERRIC GLUCONAT-SUCROSE 125 MG in SODIUM CHLORIDE 0.9% 100 ML IVPB SCH (09:48)
[2020-11-01] MEDS: FUROSEMIDE 40 MG TAB PEG/G-TUBE SCH ×2 (09:48→16:53)
[2020-11-01] MEDS: metFORMIN 500 MG TAB PEG/G-TUBE SCH ×2 (09:48→16:53)
[2020-11-01] MEDS: levETIRAcetam ORAL SOLN 500 MG/5 ML CUP PEG/G-TUBE SCH (09:48)
[2020-11-01] MEDS: DILTIAZEM ORAL 60 MG TAB PEG/G-TUBE SCH ×3 (09:48→21:15)
[2020-11-01] MEDS: SIMETHICONE 40 MG/0.6 ML DROPS 2,000 MG/30 ML BOTTLE PEG/G-TUBE SCH ×2 (09:49→17:44)
[2020-11-01] MEDS: VORICONAZOLE 200 MG TAB PO SCH ×2 (09:49→20:29)
[2020-11-01] MEDS: DRY MOUTH SPRAY 44.3 SPRAY/44.3 ML SPRAY MUCOUS MEM SCH ×3 (09:50→16:54)
[2020-11-01 10:20] LABS: Anisocytosis Moderate; Basophils % (A) 0 %; Eosinophils # (A) 0.2 k/uL (0-0.7); Eosinophils % (A) 3 %; HCT 28.3 % (34.0-46.0); HGB 8.6 gm/dL (11.4-16.0); Hypochromasia Marked; Lymphocytes % (A) 11 %; MCHC 30.4 g/dL (31.0-37.0); MCV 95.4 fL (80.0-100.0); Macrocytosis Moderate; Mean Platelet Volume 9.6; Monocytes # (A) 0.4 k/uL (0-1.0); Monocytes % (A) 4 %; Neutrophils # (A) 7.7 k/uL (1.3-7.7); Neutrophils % (A) 81 %; Platelet Count 208 k/uL (150-450); Poikilocytosis Moderate; RBC 2.97 m/uL (3.80-5.40); RDW 22.5 % (11.5-15.5); WBC 9.5 k/uL (3.8-10.6)
[2020-11-01 10:32] LABS: INR 3.4 (<1.2); Prothrombin Time 32.3 sec (9.0-12.0)
[2020-11-01 10:38] LABS: ALT 19 U/L (4-34); AST 27 U/L (14-36); African American GFR (CKD) >90 (>60 ml/min/1.73 sqM); Albumin 2.5 g/dL (3.5-5.0); Alkaline Phosphatase 140 U/L (38-126); Anion Gap 5 mmol/L; Blood Urea Nitrogen 18 mg/dL (7-17); Calcium 8.6 mg/dL (8.4-10.2); Carbon Dioxide 29 mmol/L (22-30); Chloride 103 mmol/L (98-107); Glucose 239 mg/dL (74-99); Non-African American GFR(CKD) >90 (>60 ml/min/1.73 sqM); Potassium 3.9 mmol/L (3.5-5.1); Sodium 137 mmol/L (137-145); Total Bilirubin 0.2 mg/dL (0.2-1.3); Total Protein 5.5 g/dL (6.3-8.2)
[2020-11-01 11:44] LABS: Glucose,Whole Blood 229 mg/dL (75-99)
--- NOTE | 2020-11-01 12:17 | P.CNPUL ---
History of Present Illness Consult date: 10/31/20 Reason for consult: dyspnea, cough, hypoxemia Chief complaint: Cough shortness of breath History of present illness: Due to recurrent aspiration patient underwent a PEG tube placement Camryn infection of the site, chest x-ray revealed interstitial edema small bilateral pleural effusion and atelectasis possible pneumonia cannot be excluded, patient has ongoing cough unfortunately not much data can be obtained from her, patient will be started on broad-spectrum antibiotics labs medication checks x-ray reviewed she is well anticoagulated with Coumadin, PEG tube site positive for rg glabrata being treated with voriconazole Review of Systems ROS unobtainable: due to mental status All systems: negative Past Medical History Past Medical History: Atrial Fibrillation, Atrial Flutter, Asthma, Cancer, Heart Failure, CVA/TIA, Dementia, Diabetes Mellitus, GERD/Reflux, GI Bleed, Hyperlipidemia, Hypertension, Pneumonia, Sleep Apnea/CPAP/BIPAP Additional Past Medical History / Comment(s): Verified with Duda papers r/t son Jose Rafael being unsure of history. Jose Rafael states he is also pt's DPOA. 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, post traumatic seizures, History of Any Multi-Drug Resistant Organisms: MRSA Date of last positivie culture/infection: 08/21/20 MDRO Source:: MRSA URINE Past Surgical History: Breast Surgery, Cardiac Valve Replacement, Heart Catheterization With Stent, Hysterectomy, Orthopedic Surgery, Pacemaker, Tonsillectomy Additional Past Surgical History / Comment(s): Peg tube, mechanical mitral valve 2000, polypectomy spinal cord/cyst removed, TEEs, CVNs, colonoscopies, bilateral cataract removal/lens implants, L rotator cuff repair, R femur fracture with IM hip/screw/nail, L breast lumpectomy, Past Anesthesia/Blood Transfusion Reactions: No Reported Reaction Date of Last Stent Placement:: 2006 Type of Cardiac Device: Permanent Pacemaker Device Placement Date:: 2009 Past Psychological History: Depression Smoking Status: Unknown if ever smoked Past Alcohol Use History: Unable to Obtain Past Drug Use History: Unable to Obtain - Past Family History Father Family Medical History: GI Bleed Additional Family Medical History / Comment(s): OF BLEEDING ULCER AT AGE 64 Mother Family Medical History: Cancer, CVA/TIA Additional Family Medical History / Comment(s): HX STROKES, COLON CANCER Medications and Allergies Home Medications Medication Instructions Recorded Confirmed Type Pravastatin Sodium [Pravachol] 40 mg PEG/G-TUBE HS@2100 05/20/17 10/18/20 History levETIRAcetam [Keppra Oral 100 mg PEG/G-TUBE DAILY@0800 09/27/17 10/18/20 History Solution] Aspirin 81 mg PEG/G-TUBE DAILY@0800 05/30/18 10/18/20 History Acetaminophen Oral Susp [Tylenol] 640 mg PEG/G-TUBE Q6H PRN 12/25/19 10/18/20 History Multivitamins, Thera Liquid 5 ml PEG/G-TUBE DAILY@1700 12/25/19 10/18/20 History [Theragran Liquid (formulary)] bisacodyL [Dulcolax] 10 mg RECTAL DAILY PRN 12/25/19 10/18/20 History Ipratropium-Albuterol Nebulize 3 ml INHALATION RT-QID PRN 06/11/20 10/18/20 History [Duoneb 0.5 mg-3 mg/3 ml Soln] Na Phos,M-B/Na Phos,Di-Ba [Fleet 133 ml RECTAL DAILY PRN 06/11/20 10/18/20 History Adult] Loratadine [Claritin] 10 mg PEG/G-TUBE DAILY@1700 tab 06/14/20 10/18/20 Rx Furosemide [Lasix] 40 mg PEG/G-TUBE BID@0800,1700 06/24/20 10/18/20 History INSULIN ASPART (NovoLOG) [NovoLOG See Protocol SQ ACHS 06/24/20 10/18/20 History (formulary)] metFORMIN HCL [Glucophage] 500 mg PEG/G-TUBE BID@0800,1700 06/24/20 10/18/20 History Metoprolol Tartrate [Lopressor] 100 mg PEG/G-TUBE 07/15/20 10/18/20 History TID@0600,1400,2200 Gabapentin [Neurontin] 100 mg PEG/G-TUBE 09/15/20 10/18/20 History TID@0600,1400,2100 Liquacel 30 ml PEG/G-TUBE BID@0800,1600 09/15/20 10/18/20 History Simethicone 40 mg PEG/G-TUBE BID@0800,1700 09/15/20 10/18/20 History Biotene Dry Mouth Mouthwash 5 ml MUCOUS MEM TID@0800,1200,1700 10/18/20 10/18/20 History Cholestyramine/Aspartame 4 gm PEG/G-TUBE HS@2200 10/18/20 10/18/20 History [Cholestyramine Light Packet] Diltiazem Oral [Cardizem*] 60 mg PEG/G-TUBE TID 10/18/20 10/18/20 History Ferrous Sulfate 330 mg PEG/G-TUBE DAILY@1700 10/18/20 10/18/20 History Insulin Detemir (Levemir) [Levemir] 40 unit SQ HS 10/18/20 10/18/20 History Magnesium Hydroxide [Milk of 7,200 mg PEG/G-TUBE DAILY PRN 10/18/20 10/18/20 History Magnesia Concentrate] Nitroglycerin Sl Tabs [Nitrostat] 0.4 mg SL Q5M PRN 10/18/20 10/18/20 History Voriconazole [Vfend] 300 mg PO Q12HR tab 10/28/20 Rx Allergies Allergy/AdvReac Type Severity Reaction Status Date / Time ciprofloxacin [From Cipro] Allergy Rash/Hives Verified 10/18/20 07:45 ciprofloxacin HCl Allergy Rash/Hives Verified 10/18/20 07:45 [From Cipro] Quinolones Allergy Unknown Verified 10/18/20 07:45 Physical Exam Vitals: Vital Signs Temp Pulse Resp BP BP Pulse Ox 10/31/20 16:00 99.5 F 82 18 96/54 91 L 10/31/20 14:00 71 20 10/31/20 11:53 98.7 F 71 128/74 94 L 10/31/20 08:00 98.9 F 72 25 H 136/75 93 L 10/31/20 04:00 98.9 F 68 16 119/66 95 09/20/21 01:09 65 17 10/30/20 23:45 99.7 F H 65 16 99/57 95 10/30/20 20:00 99.8 F H 92 17 131/80 98 Intake and Output 10/31/20 10/31/20 10/31/20 06:59 14:59 22:59 Intake Total 620.99 374.455 Output Total 800 0 250 Balance -179.01 374.455 -250 Intake: IV 84 Heparin Sod,Pork in 0.45% 84 NaCl 25,000 unit In 0.45 % NaCl 1 250ml.bag @ 10. 869 UNITS/KG/HR 9.999 mls /hr IV .Q24H J[facility] Rx#: [id number] Intake, IV Titration 236.99 74.455 Amount Heparin Sod,Pork in 0.45% 236.99 74.455 NaCl 25,000 unit In 0.45 % NaCl 1 250ml.bag @ 10. 869 UNITS/KG/HR 9.999 mls /hr IV .Q24H JM Rx#: [id number] Tube Feeding 300 300 Output: Urine 800 250 Stool 0 Other: Voiding Method External Catheter External Catheter # Voids 1 # Bowel Movements 1 1 Weight 87 kg 87 kg - Constitutional General appearance: average body habitus, disheveled - EENT Eyes: PERRLA Ears: bilateral: normal - Neck Carotids: bilateral: upstroke normal Thyroid: bilateral: normal size - Respiratory Respiratory: bilateral: diminished - Cardiovascular Rhythm: regular Heart sounds: normal: S1, S2 - Gastrointestinal General gastrointestinal: decreased bowel sounds - Neurologic Neurologic: CNII-XII intact - Musculoskeletal Musculoskeletal: generalized weakness Results - Laboratory Findings CBC and BMP: 11/01/20 09:37 11/01/20 09:37 PT/INR, D-dimer PT 37.4 sec (9.0-12.0) H 10/31/20 08:27 INR 3.9 (<1.2) H 10/31/20 08:27 Abnormal lab findings: Abnormal Labs 10/18/20 10/18/20 10/18/20 04:35 04:35 04:35 WBC 11.3 H RBC Hgb Hct MCHC RDW 18.7 H Neutrophils # 8.7 H Neutrophils # (Manual) Metamyelocytes # (Man) Nucleated RBCs Retic Count PT INR APTT Sodium Potassium Chloride 108 H Carbon Dioxide BUN 46 H Creatinine 0.42 L Glucose 215 H POC Glucose (mg/dL) Calcium 8.3 L Iron Total Bilirubin <0.1 L Alkaline Phosphatase 134 H Lactate Dehydrogenase Troponin I 0.046 H* Total Protein 5.7 L Albumin 2.7 L TSH Ur Leukocyte Esterase Urine Bacteria Stool Occult Blood Crossmatch 10/18/20 10/18/20 10/18/20 17:27 18:48 19:31 WBC RBC Hgb Hct MCHC RDW Neutrophils # Neutrophils # (Manual) Metamyelocytes # (Man) Nucleated RBCs Retic Count PT 15.3 H INR 1.5 H APTT Sodium Potassium Chloride Carbon Dioxide BUN Creatinine Glucose POC Glucose (mg/dL) 113 H 132 H Calcium Iron Total Bilirubin Alkaline Phosphatase Lactate Dehydrogenase Troponin I Total Protein Albumin TSH Ur Leukocyte Esterase Urine Bacteria Stool Occult Blood Crossmatch 10/19/20 10/19/20 10/19/20 06:26 08:34 08:34 WBC RBC Hgb Hct MCHC 30.4 L RDW 18.2 H Neutrophils # Neutrophils # (Manual) Metamyelocytes # (Man) Nucleated RBCs Retic Count PT INR APTT Sodium Potassium Chloride 114 H Carbon Dioxide BUN 22 H Creatinine 0.41 L Glucose 191 H POC Glucose (mg/dL) 184 H Calcium Iron Total Bilirubin Alkaline Phosphatase Lactate Dehydrogenase Troponin I Total Protein 6.0 L Albumin 2.8 L TSH Ur Leukocyte Esterase Urine Bacteria Stool Occult Blood Crossmatch 10/19/20 10/19/20 10/19/20 08:34 11:00 11:44 WBC RBC Hgb Hct MCHC RDW Neutrophils # Neutrophils # (Manual) Metamyelocytes # (Man) Nucleated RBCs Retic Count PT 14.6 H INR 1.4 H APTT Sodium Potassium Chloride Carbon Dioxide BUN Creatinine Glucose POC Glucose (mg/dL) 204 H Calcium Iron Total Bilirubin Alkaline Phosphatase Lactate Dehydrogenase Troponin I Total Protein Albumin TSH Ur Leukocyte Esterase Small H Urine Bacteria Rare H Stool Occult Blood Crossmatch 10/19/20 10/19/20 10/20/20 16:25 20:19 03:43 WBC RBC Hgb Hct MCHC 30.7 L RDW 18.4 H Neutrophils # Neutrophils # (Manual) Metamyelocytes # (Man) Nucleated RBCs Retic Count PT INR APTT Sodium Potassium Chloride Carbon Dioxide BUN Creatinine Glucose POC Glucose (mg/dL) 204 H 193 H Calcium Iron Total Bilirubin Alkaline Phosphatase Lactate Dehydrogenase Troponin I Total Protein Albumin TSH Ur Leukocyte Esterase Urine Bacteria Stool Occult Blood Crossmatch 10/20/20 10/20/20 10/20/20 03:43 03:43 06:23 WBC RBC Hgb Hct MCHC RDW Neutrophils # Neutrophils # (Manual) Metamyelocytes # (Man) Nucleated RBCs Retic Count PT 16.0 H INR 1.6 H APTT Sodium Potassium Chloride 112 H Carbon Dioxide BUN 20 H Creatinine 0.45 L Glucose 198 H POC Glucose (mg/dL) 213 H Calcium Iron Total Bilirubin Alkaline Phosphatase Lactate Dehydrogenase Troponin I Total Protein Albumin TSH Ur Leukocyte Esterase Urine Bacteria Stool Occult Blood Crossmatch 10/20/20 10/20/20 10/20/20 11:56 16:44 20:30 WBC RBC Hgb Hct MCHC RDW Neutrophils # Neutrophils # (Manual) Metamyelocytes # (Man) Nucleated RBCs Retic Count PT INR APTT Sodium Potassium Chloride Carbon Dioxide BUN Creatinine Glucose POC Glucose (mg/dL) 198 H 272 H 255 H Calcium Iron Total Bilirubin Alkaline Phosphatase Lactate Dehydrogenase Troponin I Total Protein Albumin TSH Ur Leukocyte Esterase Urine Bacteria Stool Occult Blood Crossmatch 10/21/20 10/21/20 10/21/20 06:22 07:47 07:47 WBC 13.2 H RBC 3.67 L Hgb 10.2 L Hct 33.5 L MCHC 30.4 L RDW 18.5 H Neutrophils # 10.8 H Neutrophils # (Manual) Metamyelocytes # (Man) Nucleated RBCs Retic Count PT 17.4 H INR 1.8 H APTT Sodium Potassium Chloride Carbon Dioxide BUN Creatinine Glucose POC Glucose (mg/dL) 358 H Calcium Iron Total Bilirubin Alkaline Phosphatase Lactate Dehydrogenase Troponin I Total Protein Albumin TSH Ur Leukocyte Esterase Urine Bacteria Stool Occult Blood Crossmatch 10/21/20 10/21/20 10/21/20 07:47 07:47 11:54 WBC RBC Hgb Hct MCHC RDW Neutrophils # Neutrophils # (Manual) Metamyelocytes # (Man) Nucleated RBCs Retic Count PT INR APTT Sodium Potassium Chloride 114 H Carbon Dioxide 20 L BUN 50 H Creatinine 0.48 L Glucose 383 H POC Glucose (mg/dL) 420 H Calcium Iron 46 L Total Bilirubin Alkaline Phosphatase Lactate Dehydrogenase Troponin I Total Protein 5.3 L Albumin 2.4 L TSH Ur Leukocyte Esterase Urine Bacteria Stool Occult Blood Crossmatch 10/21/20 10/21/20 10/22/20 16:57 21:34 00:20 WBC 15.7 H RBC 3.30 L Hgb 9.5 L Hct 30.6 L MCHC 30.9 L RDW 18.7 H Neutrophils # 11.4 H Neutrophils # (Manual) Metamyelocytes # (Man) Nucleated RBCs Retic Count PT INR APTT Sodium Potassium Chloride Carbon Dioxide BUN Creatinine Glucose POC Glucose (mg/dL) 294 H 354 H Calcium Iron Total Bilirubin Alkaline Phosphatase Lactate Dehydrogenase Troponin I Total Protein Albumin TSH Ur Leukocyte Esterase Urine Bacteria Stool Occult Blood Crossmatch 10/22/20 10/22/20 10/22/20 00:20 02:49 06:13 WBC RBC Hgb Hct MCHC RDW Neutrophils # Neutrophils # (Manual) Metamyelocytes # (Man) Nucleated RBCs Retic Count PT INR APTT Sodium 146 H Potassium Chloride 117 H Carbon Dioxide 20 L BUN 58 H Creatinine Glucose 302 H POC Glucose (mg/dL) 331 H 316 H Calcium Iron Total Bilirubin Alkaline Phosphatase Lactate Dehydrogenase Troponin I Total Protein 5.6 L Albumin 2.6 L TSH 0.441 L Ur Leukocyte Esterase Urine Bacteria Stool Occult Blood Crossmatch 10/22/20 10/22/20 10/22/20 07:01 11:43 16:33 WBC RBC Hgb Hct MCHC RDW Neutrophils # Neutrophils # (Manual) Metamyelocytes # (Man) Nucleated RBCs Retic Count PT 16.6 H INR 1.7 H APTT Sodium Potassium Chloride Carbon Dioxide BUN Creatinine Glucose POC Glucose (mg/dL) 311 H 295 H Calcium Iron Total Bilirubin Alkaline Phosphatase Lactate Dehydrogenase Troponin I Total Protein Albumin TSH Ur Leukocyte Esterase Urine Bacteria Stool Occult Blood Crossmatch 10/22/20 10/22/20 10/23/20 19:58 23:52 05:32 WBC RBC Hgb Hct MCHC RDW Neutrophils # Neutrophils # (Manual) Metamyelocytes # (Man) Nucleated RBCs Retic Count PT INR APTT Sodium Potassium Chloride Carbon Dioxide BUN Creatinine Glucose POC Glucose (mg/dL) 248 H 266 H 274 H Calcium Iron Total Bilirubin Alkaline Phosphatase Lactate Dehydrogenase Troponin I Total Protein Albumin TSH Ur Leukocyte Esterase Urine Bacteria Stool Occult Blood Crossmatch 10/23/20 10/23/20 10/23/20 09:47 09:47 09:47 WBC 16.8 H RBC 2.98 L Hgb 8.5 L Hct 27.3 L MCHC RDW 19.4 H Neutrophils # 13.1 H Neutrophils # (Manual) Metamyelocytes # (Man) Nucleated RBCs Retic Count PT 17.8 H INR 1.8 H APTT Sodium 150 H Potassium Chloride 116 H Carbon Dioxide BUN 28 H Creatinine 0.37 L Glucose 249 H POC Glucose (mg/dL) Calcium Iron Total Bilirubin Alkaline Phosphatase Lactate Dehydrogenase Troponin I Total Protein 6.1 L Albumin 3.0 L TSH Ur Leukocyte Esterase Urine Bacteria Stool Occult Blood Crossmatch 10/23/20 10/23/20 10/24/20 11:40 16:31 00:41 WBC RBC Hgb Hct MCHC RDW Neutrophils # Neutrophils # (Manual) Metamyelocytes # (Man) Nucleated RBCs Retic Count PT INR APTT Sodium Potassium Chloride Carbon Dioxide BUN Creatinine Glucose POC Glucose (mg/dL) 273 H 246 H 233 H Calcium Iron Total Bilirubin Alkaline Phosphatase Lactate Dehydrogenase Troponin I Total Protein Albumin TSH Ur Leukocyte Esterase Urine Bacteria Stool Occult Blood Crossmatch 10/24/20 10/24/20 10/24/20 06:18 08:00 08:00 WBC 12.7 H RBC 2.67 L Hgb 7.5 L Hct 24.3 L MCHC RDW 19.5 H Neutrophils # 9.8 H Neutrophils # (Manual) Metamyelocytes # (Man) Nucleated RBCs Retic Count PT 18.6 H INR 1.9 H APTT Sodium Potassium Chloride Carbon Dioxide BUN Creatinine Glucose POC Glucose (mg/dL) 179 H Calcium Iron Total Bilirubin Alkaline Phosphatase Lactate Dehydrogenase Troponin I Total Protein Albumin TSH Ur Leukocyte Esterase Urine Bacteria Stool Occult Blood Crossmatch 10/24/20 10/24/20 10/24/20 08:00 11:57 18:00 WBC RBC Hgb Hct MCHC RDW Neutrophils # Neutrophils # (Manual) Metamyelocytes # (Man) Nucleated RBCs Retic Count PT INR APTT Sodium 147 H Potassium Chloride 113 H Carbon Dioxide BUN 26 H Creatinine 0.39 L Glucose 162 H POC Glucose (mg/dL) 157 H 178 H Calcium Iron Total Bilirubin Alkaline Phosphatase Lactate Dehydrogenase Troponin I Total Protein 5.5 L Albumin 2.7 L TSH Ur Leukocyte Esterase Urine Bacteria Stool Occult Blood Crossmatch 10/24/20 10/24/20 10/24/20 18:14 18:14 18:14 WBC RBC Hgb Hct MCHC RDW Neutrophils # Neutrophils # (Manual) Metamyelocytes # (Man) Nucleated RBCs Retic Count 5.2 H PT 18.5 H INR 1.9 H APTT 36.0 H Sodium Potassium Chloride Carbon Dioxide BUN Creatinine Glucose POC Glucose (mg/dL) Calcium Iron Total Bilirubin Alkaline Phosphatase Lactate Dehydrogenase 623 H Troponin I Total Protein Albumin TSH Ur Leukocyte Esterase Urine Bacteria Stool Occult Blood Crossmatch 10/24/20 10/24/20 10/25/20 21:00 23:57 06:21 WBC RBC Hgb Hct MCHC RDW Neutrophils # Neutrophils # (Manual) Metamyelocytes # (Man) Nucleated RBCs Retic Count PT INR APTT Sodium Potassium Chloride Carbon Dioxide BUN Creatinine Glucose POC Glucose (mg/dL) 196 H 236 H Calcium Iron Total Bilirubin Alkaline Phosphatase Lactate Dehydrogenase Troponin I Total Protein Albumin TSH Ur Leukocyte Esterase Urine Bacteria Stool Occult Blood Positive H Crossmatch 10/25/20 10/25/20 10/25/20 06:50 06:50 06:50 WBC 12.5 H RBC 2.71 L Hgb 7.4 L Hct 24.5 L MCHC 30.1 L RDW 19.7 H Neutrophils # Neutrophils # (Manual) 9.75 H Metamyelocytes # (Man) Nucleated RBCs 3 H Retic Count PT 20.4 H INR 2.1 H APTT Sodium Potassium Chloride Carbon Dioxide BUN Creatinine Glucose POC Glucose (mg/dL) Calcium Iron Total Bilirubin Alkaline Phosphatase Lactate Dehydrogenase Troponin I Total Protein Albumin TSH Ur Leukocyte Esterase Urine Bacteria Stool Occult Blood Crossmatch See Detail 10/25/20 10/25/20 10/26/20 11:54 17:57 00:06 WBC RBC Hgb Hct MCHC RDW Neutrophils # Neutrophils # (Manual) Metamyelocytes # (Man) Nucleated RBCs Retic Count PT INR APTT Sodium Potassium Chloride Carbon Dioxide BUN Creatinine Glucose POC Glucose (mg/dL) 191 H 195 H 191 H Calcium Iron Total Bilirubin Alkaline Phosphatase Lactate Dehydrogenase Troponin I Total Protein Albumin TSH Ur Leukocyte Esterase Urine Bacteria Stool Occult Blood Crossmatch 10/26/20 10/26/20 10/26/20 06:15 07:42 07:42 WBC 14.4 H RBC 3.20 L Hgb 9.3 L D Hct 28.0 L MCHC RDW 19.7 H Neutrophils # Neutrophils # (Manual) 11.90 H Metamyelocytes # (Man) Nucleated RBCs 5 H Retic Count PT 15.7 H INR 1.6 H APTT Sodium Potassium Chloride Carbon Dioxide BUN Creatinine Glucose POC Glucose (mg/dL) 180 H Calcium Iron Total Bilirubin Alkaline Phosphatase Lactate Dehydrogenase Troponin I Total Protein Albumin TSH Ur Leukocyte Esterase Urine Bacteria Stool Occult Blood Crossmatch 10/26/20 10/26/20 10/27/20 12:04 18:01 00:08 WBC RBC Hgb Hct MCHC RDW Neutrophils # Neutrophils # (Manual) Metamyelocytes # (Man) Nucleated RBCs Retic Count PT INR APTT Sodium Potassium Chloride Carbon Dioxide BUN Creatinine Glucose POC Glucose (mg/dL) 189 H 153 H 108 H Calcium Iron Total Bilirubin Alkaline Phosphatase Lactate Dehydrogenase Troponin I Total Protein Albumin TSH Ur Leukocyte Esterase Urine Bacteria Stool Occult Blood Crossmatch 10/27/20 10/27/20 10/27/20 05:07 05:07 05:07 WBC 12.1 H RBC 3.11 L Hgb 9.1 L Hct 27.6 L MCHC RDW 20.2 H Neutrophils # Neutrophils # (Manual) 8.90 H Metamyelocytes # (Man) 0.12 H Nucleated RBCs 2 H Retic Count PT 13.0 H INR 1.3 H APTT Sodium Potassium Chloride Carbon Dioxide 31 H BUN 28 H Creatinine 0.44 L Glucose POC Glucose (mg/dL) Calcium Iron Total Bilirubin Alkaline Phosphatase Lactate Dehydrogenase Troponin I Total Protein 5.7 L Albumin 2.7 L TSH Ur Leukocyte Esterase Urine Bacteria Stool Occult Blood Crossmatch 10/27/20 10/27/20 10/27/20 12:09 12:10 16:46 WBC 11.7 H RBC 3.29 L Hgb 9.5 L Hct 30.1 L MCHC RDW 20.1 H Neutrophils # 8.7 H Neutrophils # (Manual) Metamyelocytes # (Man) Nucleated RBCs Retic Count PT INR APTT Sodium Potassium Chloride Carbon Dioxide BUN Creatinine Glucose POC Glucose (mg/dL) 115 H 107 H Calcium Iron Total Bilirubin Alkaline Phosphatase Lactate Dehydrogenase Troponin I Total Protein Albumin TSH Ur Leukocyte Esterase Urine Bacteria Stool Occult Blood Crossmatch 10/27/20 10/27/20 10/28/20 19:50 23:37 07:51 WBC 11.9 H RBC 3.27 L Hgb 9.1 L Hct 28.3 L MCHC RDW 21.1 H Neutrophils # 8.1 H Neutrophils # (Manual) Metamyelocytes # (Man) Nucleated RBCs Retic Count PT 12.4 H INR 1.2 H APTT Sodium Potassium Chloride Carbon Dioxide BUN Creatinine Glucose POC Glucose (mg/dL) 144 H Calcium Iron Total Bilirubin Alkaline Phosphatase Lactate Dehydrogenase Troponin I Total Protein Albumin TSH Ur Leukocyte Esterase Urine Bacteria Stool Occult Blood Crossmatch 10/28/20 10/28/20 10/28/20 07:51 07:51 10:29 WBC RBC 3.10 L Hgb 8.7 L Hct 28.0 L MCHC RDW 21.6 H Neutrophils # Neutrophils # (Manual) Metamyelocytes # (Man) Nucleated RBCs Retic Count PT INR APTT Sodium Potassium 3.2 L Chloride Carbon Dioxide BUN Creatinine 0.47 L Glucose 104 H POC Glucose (mg/dL) 125 H Calcium Iron Total Bilirubin Alkaline Phosphatase Lactate Dehydrogenase Troponin I Total Protein 5.4 L Albumin 2.5 L TSH Ur Leukocyte Esterase Urine Bacteria Stool Occult Blood Crossmatch 10/28/20 10/28/20 10/28/20 12:08 16:15 23:54 WBC RBC Hgb Hct MCHC RDW Neutrophils # Neutrophils # (Manual) Metamyelocytes # (Man) Nucleated RBCs Retic Count PT INR APTT Sodium Potassium Chloride Carbon Dioxide BUN Creatinine Glucose POC Glucose (mg/dL) 149 H 170 H 194 H Calcium Iron Total Bilirubin Alkaline Phosphatase Lactate Dehydrogenase Troponin I Total Protein Albumin TSH Ur Leukocyte Esterase Urine Bacteria Stool Occult Blood Crossmatch 10/29/20 10/29/20 10/29/20 06:19 10:00 11:51 WBC RBC Hgb Hct MCHC RDW Neutrophils # Neutrophils # (Manual) Metamyelocytes # (Man) Nucleated RBCs Retic Count PT 13.4 H INR 1.3 H APTT Sodium Potassium Chloride Carbon Dioxide BUN Creatinine Glucose POC Glucose (mg/dL) 128 H 107 H Calcium Iron Total Bilirubin Alkaline Phosphatase Lactate Dehydrogenase Troponin I Total Protein Albumin TSH Ur Leukocyte Esterase Urine Bacteria Stool Occult Blood Crossmatch 10/29/20 10/29/20 10/29/20 17:59 22:21 23:54 WBC RBC Hgb Hct MCHC RDW Neutrophils # Neutrophils # (Manual) Metamyelocytes # (Man) Nucleated RBCs Retic Count PT INR APTT Sodium Potassium Chloride Carbon Dioxide BUN Creatinine Glucose POC Glucose (mg/dL) 137 H 155 H 177 H Calcium Iron Total Bilirubin Alkaline Phosphatase Lactate Dehydrogenase Troponin I Total Protein Albumin TSH Ur Leukocyte Esterase Urine Bacteria Stool Occult Blood Crossmatch 10/30/20 10/30/20 10/30/20 05:46 05:48 06:17 WBC 10.9 H RBC 2.99 L Hgb 8.6 L Hct 27.7 L MCHC RDW 22.7 H Neutrophils # 7.9 H Neutrophils # (Manual) Metamyelocytes # (Man) Nucleated RBCs Retic Count PT 15.6 H INR 1.6 H APTT 36.7 H Sodium Potassium Chloride Carbon Dioxide BUN Creatinine Glucose POC Glucose (mg/dL) 186 H Calcium Iron Total Bilirubin Alkaline Phosphatase Lactate Dehydrogenase Troponin I Total Protein Albumin TSH Ur Leukocyte Esterase Urine Bacteria Stool Occult Blood Crossmatch 10/30/20 10/30/20 10/30/20 11:59 12:40 18:04 WBC RBC Hgb Hct MCHC RDW Neutrophils # Neutrophils # (Manual) Metamyelocytes # (Man) Nucleated RBCs Retic Count PT INR APTT 51.7 H Sodium Potassium Chloride Carbon Dioxide BUN Creatinine Glucose POC Glucose (mg/dL) 217 H 175 H Calcium Iron Total Bilirubin Alkaline Phosphatase Lactate Dehydrogenase Troponin I Total Protein Albumin TSH Ur Leukocyte Esterase Urine Bacteria Stool Occult Blood Crossmatch 10/30/20 10/31/20 10/31/20 20:34 00:39 05:53 WBC RBC Hgb Hct MCHC RDW Neutrophils # Neutrophils # (Manual) Metamyelocytes # (Man) Nucleated RBCs Retic Count PT INR APTT Sodium Potassium Chloride Carbon Dioxide BUN Creatinine Glucose POC Glucose (mg/dL) 173 H 207 H 187 H Calcium Iron Total Bilirubin Alkaline Phosphatase Lactate Dehydrogenase Troponin I Total Protein Albumin TSH Ur Leukocyte Esterase Urine Bacteria Stool Occult Blood Crossmatch 10/31/20 10/31/20 10/31/20 08:27 11:42 16:41 WBC RBC Hgb Hct MCHC RDW Neutrophils # Neutrophils # (Manual) Metamyelocytes # (Man) Nucleated RBCs Retic Count PT 37.4 H INR 3.9 H APTT >200.0 H* Sodium Potassium Chloride Carbon Dioxide BUN Creatinine Glucose POC Glucose (mg/dL) 161 H 194 H Calcium Iron Total Bilirubin Alkaline Phosphatase Lactate Dehydrogenase Troponin I Total Protein Albumin TSH Ur Leukocyte Esterase Urine Bacteria Stool Occult Blood Crossmatch - Diagnostic Findings Chest x-ray: report reviewed, image reviewed (Finding as noted above) Assessment and Plan Assessment: Aspiration pneumonia Ongoing cough Rg glabrata associated PEG tube site cellulitis Iron deficiency anemia Protein calorie malnourishment Paroxysmal atrial fibrillation Status post mitral valve replacement 2000 Sick sinus syndrome History of strokes bedbound status Plan: We'll start patient on broad-spectrum antibiotics Continue to feed Follow clinical course closely Further plan of care as per clinical response of patient Time with Patient: Greater than 30
--- NOTE | 2020-11-01 12:23 | P.PN ---
Subjective Progress Note Date: 11/01/20 Principal diagnosis: Aspiration pneumonia Ongoing cough Hannah glabrata associated PEG tube site cellulitis Iron deficiency anemia Protein calorie malnourishment Paroxysmal atrial fibrillation Status post mitral valve replacement 2000 Sick sinus syndrome History of strokes bedbound status 11/01/2020, patient seen eval examined during the rounds labs reviewed medications reviewed intermittent cough is present but severity appears to have improved patient tolerating tube feed well is 60 mL an hour well anticoagulated with Coumadin, saturation is 98% on 2 L, respiratory status stable, and cough is less, occasional reviewed patient has been on Zosyn tolerating well Due to recurrent aspiration patient underwent a PEG tube placement Camryn infection of the site, chest x-ray revealed interstitial edema small bilateral pleural effusion and atelectasis possible pneumonia cannot be excluded, patient has ongoing cough unfortunately not much data can be obtained from her, patient will be started on broad-spectrum antibiotics labs medication checks x-ray reviewed she is well anticoagulated with Coumadin, PEG tube site positive for hannah glabrata being treated with voriconazole Objective - Vital Signs Vital signs: Vital Signs Temp 99.2 F 11/01/20 11:51 Pulse 65 11/01/20 11:51 Resp 16 11/01/20 11:51 BP 103/53 11/01/20 11:51 Pulse Ox 98 11/01/20 11:51 Intake & Output 10/31/20 11/01/20 11/01/20 18:59 06:59 18:59 Intake Total 974.455 100 Output Total 250 650 250 Balance 724.455 -550 -250 Weight 87 kg 95.5 kg Intake: Intake, IV Titration 74.455 100 Amount Heparin Sod,Pork in 0.45% 74.455 NaCl 25,000 unit In 0.45 % NaCl 1 250ml.bag @ 10. 869 UNITS/KG/HR 9.999 mls /hr IV .Q24H J[facility] Rx#: [id number] Piperacillin-Tazobactam 3 100 .375 gm In Sodium Chloride 0.9% 100 ml @ 25 mls/hr IVPB Q8HR JM Rx# :[id number] Tube Feeding 900 Output: Urine 250 650 250 Stool 0 0 Other: Voiding Method External Catheter External Catheter # Voids 1 0 # Bowel Movements 1 0 - Exam - Constitutional General appearance: average body habitus, disheveled - EENT Eyes: PERRLA Ears: bilateral: normal - Neck Carotids: bilateral: upstroke normal Thyroid: bilateral: normal size - Respiratory Respiratory: bilateral: diminished - Cardiovascular Rhythm: regular Heart sounds: normal: S1, S2 - Gastrointestinal General gastrointestinal: decreased bowel sounds - Neurologic Neurologic: CNII-XII intact - Musculoskeletal Musculoskeletal: generalized weakness - Labs CBC & Chem 7: 11/01/20 09:37 11/01/20 09:37 Labs: Abnormal Lab Results - Last 24 Hours (Table) 10/31/20 10/31/20 10/31/20 Range/Units 16:13 16:41 19:42 RBC (3.80-5.40) m/uL Hgb (11.4-16.0) gm/dL Hct (34.0-46.0) % MCHC (31.0-37.0) g/dL RDW (11.5-15.5) % PT (9.0-12.0) sec INR (<1.2) APTT >200.0 H* (22.0-30.0) sec BUN (7-17) mg/dL Creatinine (0.52-1.04) mg/dL Glucose (74-99) mg/dL POC Glucose (mg/dL) 194 H 226 H (75-99) mg/dL Alkaline Phosphatase (38-126) U/L Total Protein (6.3-8.2) g/dL Albumin (3.5-5.0) g/dL 10/31/20 10/31/20 11/01/20 Range/Units 22:55 23:58 05:41 RBC (3.80-5.40) m/uL Hgb (11.4-16.0) gm/dL Hct (34.0-46.0) % MCHC (31.0-37.0) g/dL RDW (11.5-15.5) % PT (9.0-12.0) sec INR (<1.2) APTT 77.2 H (22.0-30.0) sec BUN (7-17) mg/dL Creatinine (0.52-1.04) mg/dL Glucose (74-99) mg/dL POC Glucose (mg/dL) 226 H 250 H (75-99) mg/dL Alkaline Phosphatase (38-126) U/L Total Protein (6.3-8.2) g/dL Albumin (3.5-5.0) g/dL 11/01/20 11/01/20 11/01/20 Range/Units 09:37 09:37 09:37 RBC 2.97 L (3.80-5.40) m/uL Hgb 8.6 L (11.4-16.0) gm/dL Hct 28.3 L (34.0-46.0) % MCHC 30.4 L (31.0-37.0) g/dL RDW 22.5 H (11.5-15.5) % PT 32.3 H (9.0-12.0) sec INR 3.4 H (<1.2) APTT (22.0-30.0) sec BUN 18 H (7-17) mg/dL Creatinine 0.39 L (0.52-1.04) mg/dL Glucose 239 H (74-99) mg/dL POC Glucose (mg/dL) (75-99) mg/dL Alkaline Phosphatase 140 H (38-126) U/L Total Protein 5.5 L (6.3-8.2) g/dL Albumin 2.5 L (3.5-5.0) g/dL 11/01/20 11/01/20 Range/Units 10:14 11:42 RBC (3.80-5.40) m/uL Hgb (11.4-16.0) gm/dL Hct (34.0-46.0) % MCHC (31.0-37.0) g/dL RDW (11.5-15.5) % PT (9.0-12.0) sec INR (<1.2) APTT 41.6 H (22.0-30.0) sec BUN (7-17) mg/dL Creatinine (0.52-1.04) mg/dL Glucose (74-99) mg/dL POC Glucose (mg/dL) 229 H (75-99) mg/dL Alkaline Phosphatase (38-126) U/L Total Protein (6.3-8.2) g/dL Albumin (3.5-5.0) g/dL Assessment and Plan Assessment: Aspiration pneumonia Ongoing cough Hannah glabrata associated PEG tube site cellulitis Iron deficiency anemia Protein calorie malnourishment Paroxysmal atrial fibrillation Status post mitral valve replacement 2000 Sick sinus syndrome History of strokes bedbound status Plan: Continue Zosyn Continue tube feed Follow clinical course closely Further plan of care as per clinical response of patient Obtain follow-up chest x-ray
--- NOTE | 2020-11-01 12:24 | P.PN ---
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 Brower, chronic respiratory failure status post trach. Patient has not been seen in the office since 2018, used to Dr. Craig. We have been asked to see the patient in consultation for tachycardia. Patient presents to the emergency department from senior living with evidence of cellulitis and infection at the PEG tube site. She underwent PEG tube replacement with Dr. Brower 10/20/20. Unclear when patient's last dose of coumadin was started, On admission patient's INR was subtherapeutic at 1.5. Per nursing overnight patient was found to be tachycardic heart rate in the 120s, HR improved, however, patient continued to be tachycardic in the 120s, and was then paced. This morning patient appears to be in atrial fibrillation with rapid ventricular response HR 120s. She did miss 3 doses of her metoprolol and cardizem prior to her procedure. On examination this morning patient is in sinus mechanism HR is now in the 90s. 11/01/2020 Patient seen and examined resting comfortably sleeping in bed in no acute distress. Blood pressure 109/53 heart rate 65 afebrile maintaining oxygen saturation on room air. INR 3.4. PHYSICAL EXAM GENERAL: In no acute distres HEENT: Head is normocephalic. Pupils are equal, round. Sclerae anicteric. Mucous membranes of the mouth are moist. Neck supple. No JVD or thyromegaly LUNGS: Respirations even and unlabored. Lungs essentially clear to auscultation bilaterally. HEART: Irregular ate and rhythm. S1 and S2 heard. Mitral valve click noted, +2/6 systolic murmur EXTREMITIES: Normal range of motion. No clubbing or cyanosis. Peripheral pulses intact. non pitting bilateral arm edema. ASSESSMENT Paroxysmal atrial fibrillation on coumadin PEG Tube replacement on 10/20 Hypertension Rheumatic mitral stenosis status post mechanical valve placement 2000 Sick sinus syndrome with history of pacemaker insertion History of CVA with left-sided paralysis History of dysphagia with PEG tube placement Acute GI bleed with melena with continued dark stools PLAN Pharmacy dosing of warfarin, target INR 2-3 given history of GI bleeding. Continue supportive care. We will follow along as needed. Nurse Practitioner note has been reviewed, I agree with a documented findings and plan of care. Patient was seen and examined. Objective - Vital Signs Vital signs: Vital Signs Temp 98.6 F 11/01/20 04:00 Pulse 65 11/01/20 04:00 Resp 16 11/01/20 04:00 BP 109/53 11/01/20 04:00 Pulse Ox 94 L 11/01/20 04:00 Intake & Output 10/31/20 11/01/20 11/01/20 18:59 06:59 18:59 Intake Total 974.455 100 Output Total 250 650 0 Balance 724.455 -550 0 Weight 87 kg 95.5 kg Intake: Intake, IV Titration 74.455 100 Amount Heparin Sod,Pork in 0.45% 74.455 NaCl 25,000 unit In 0.45 % NaCl 1 250ml.bag @ 10. 869 UNITS/KG/HR 9.999 mls /hr IV .Q24H J[facility] Rx#: [id number] Piperacillin-Tazobactam 3 100 .375 gm In Sodium Chloride 0.9% 100 ml @ 25 mls/hr IVPB Q8HR JM Rx# :[id number] Tube Feeding 900 Output: Urine 250 650 0 Stool 0 0 Other: Voiding Method External Catheter External Catheter # Voids 1 0 # Bowel Movements 1 0 - Labs CBC & Chem 7: 11/01/20 09:37 11/01/20 09:37 Labs: Abnormal Lab Results - Last 24 Hours (Table) 10/31/20 10/31/20 10/31/20 Range/Units 11:42 16:13 16:41 APTT >200.0 H* (22.0-30.0) sec POC Glucose (mg/dL) 161 H 194 H (75-99) mg/dL 10/31/20 10/31/20 10/31/20 Range/Units 19:42 22:55 23:58 APTT 77.2 H (22.0-30.0) sec POC Glucose (mg/dL) 226 H 226 H (75-99) mg/dL 11/01/20 Range/Units 05:41 APTT (22.0-30.0) sec POC Glucose (mg/dL) 250 H (75-99) mg/dL
--- NOTE | 2020-11-01 13:28 | P.PN ---
Subjective Progress Note Date: 11/01/20 Principal diagnosis: prog anemia, iron deficient Today, patient was responsive to questions, she opened her eyes and responded no to pain or nausea. I asked if the PEG tube feedings were upsetting her stomach she shook her head yes, she did not show any signs of discomfort when abd palpated. Objective - Vital Signs Vital signs: Vital Signs Temp 99.2 F 11/01/20 11:51 Pulse 65 11/01/20 11:51 Resp 16 11/01/20 11:51 BP 103/53 11/01/20 11:51 Pulse Ox 98 11/01/20 11:51 Intake & Output 10/31/20 11/01/20 11/01/20 18:59 06:59 18:59 Intake Total 974.455 100 Output Total 250 650 250 Balance 724.455 -550 -250 Weight 87 kg 95.5 kg Intake: Intake, IV Titration 74.455 100 Amount Heparin Sod,Pork in 0.45% 74.455 NaCl 25,000 unit In 0.45 % NaCl 1 250ml.bag @ 10. 869 UNITS/KG/HR 9.999 mls /hr IV .Q24H JM Rx#: [id number] Piperacillin-Tazobactam 3 100 .375 gm In Sodium Chloride 0.9% 100 ml @ 25 mls/hr IVPB Q8HR JM Rx# :[id number] Tube Feeding 900 Output: Urine 250 650 250 Stool 0 0 Other: Voiding Method External Catheter External Catheter # Voids 1 0 # Bowel Movements 1 0 - Constitutional General appearance: Present: cooperative, no acute distress, obese - EENT EENT Comment(s): dry mouth, lips Eyes: Present: anicteric sclerae ENT: Present: hearing grossly normal - Respiratory Respiratory: bilateral: CTA (decreased inspiratory effort) - Cardiovascular Heart sounds: normal: S1, S2 Abnormal Heart Sounds: Present: systolic murmur. Absent: diastolic murmur, rub, S3 Gallop, S4 Gallop, click, other - Peripheral edema leg Peripheral Edema: bilateral: Trace - Gastrointestinal General gastrointestinal: Present: decreased bowel sounds, distended, soft, tenderness - Integumentary Integumentary: Present: pale - Musculoskeletal Musculoskeletal: Present: generalized weakness - Labs CBC & Chem 7: 11/01/20 09:37 11/01/20 09:37 Labs: Abnormal Lab Results - Last 24 Hours (Table) 10/31/20 10/31/20 10/31/20 Range/Units 16:13 16:41 19:42 RBC (3.80-5.40) m/uL Hgb (11.4-16.0) gm/dL Hct (34.0-46.0) % MCHC (31.0-37.0) g/dL RDW (11.5-15.5) % PT (9.0-12.0) sec INR (<1.2) APTT >200.0 H* (22.0-30.0) sec BUN (7-17) mg/dL Creatinine (0.52-1.04) mg/dL Glucose (74-99) mg/dL POC Glucose (mg/dL) 194 H 226 H (75-99) mg/dL Alkaline Phosphatase (38-126) U/L Total Protein (6.3-8.2) g/dL Albumin (3.5-5.0) g/dL 10/31/20 10/31/20 11/01/20 Range/Units 22:55 23:58 05:41 RBC (3.80-5.40) m/uL Hgb (11.4-16.0) gm/dL Hct (34.0-46.0) % MCHC (31.0-37.0) g/dL RDW (11.5-15.5) % PT (9.0-12.0) sec INR (<1.2) APTT 77.2 H (22.0-30.0) sec BUN (7-17) mg/dL Creatinine (0.52-1.04) mg/dL Glucose (74-99) mg/dL POC Glucose (mg/dL) 226 H 250 H (75-99) mg/dL Alkaline Phosphatase (38-126) U/L Total Protein (6.3-8.2) g/dL Albumin (3.5-5.0) g/dL 11/01/20 11/01/20 11/01/20 Range/Units 09:37 09:37 09:37 RBC 2.97 L (3.80-5.40) m/uL Hgb 8.6 L (11.4-16.0) gm/dL Hct 28.3 L (34.0-46.0) % MCHC 30.4 L (31.0-37.0) g/dL RDW 22.5 H (11.5-15.5) % PT 32.3 H (9.0-12.0) sec INR 3.4 H (<1.2) APTT (22.0-30.0) sec BUN 18 H (7-17) mg/dL Creatinine 0.39 L (0.52-1.04) mg/dL Glucose 239 H (74-99) mg/dL POC Glucose (mg/dL) (75-99) mg/dL Alkaline Phosphatase 140 H (38-126) U/L Total Protein 5.5 L (6.3-8.2) g/dL Albumin 2.5 L (3.5-5.0) g/dL 11/01/20 11/01/20 Range/Units 10:14 11:42 RBC (3.80-5.40) m/uL Hgb (11.4-16.0) gm/dL Hct (34.0-46.0) % MCHC (31.0-37.0) g/dL RDW (11.5-15.5) % PT (9.0-12.0) sec INR (<1.2) APTT 41.6 H (22.0-30.0) sec BUN (7-17) mg/dL Creatinine (0.52-1.04) mg/dL Glucose (74-99) mg/dL POC Glucose (mg/dL) 229 H (75-99) mg/dL Alkaline Phosphatase (38-126) U/L Total Protein (6.3-8.2) g/dL Albumin (3.5-5.0) g/dL Assessment and Plan (1) Iron deficiency anemia Narrative/Plan: Iron deficiency noted on blood drawn 10/21. She remains on iron infusions per Attending. CBC ordered daily while inpt, monitoring for Hgb stability as pt is on anticoagulation for mechanical heart valve DIC and hemolysis work up was negative. Transfuse if Hgb<7, Hgb stable today Nursing reported yesterday BM was brown, no dark or bloody stool Current Visit: Yes Status: Chronic Priority: High Code(s): D50.9 - IRON DEFICIENCY ANEMIA, UNSPECIFIED SNOMED Code(s): 64579680 Plan: Coagulopathy likely 2/2 to nutritional status. Her nutrition via PEG is progressing to goal. Anticipate better INR control once nutrition is maintained
[2020-11-01] MEDS ORDERED: SODIUM CHLORIDE 0.9% 500 ML 500 ML IV ONE (13:58)
--- NOTE | 2020-11-01 14:10 | P.PN ---
Subjective Progress Note Date: 11/01/20 CHIEF COMPLAINT: PEG tube site infection HISTORY OF PRESENT ILLNESS: Patient is status post EGD with new PEG tube placement. Patient's tube feedings are at goal at 60 mL per hour. No residual reported. No vomiting. No abdominal pain. Afebrile INR 3.4. WBC 9.5 he'll open 8.6 PHYSICAL EXAM: VITAL SIGNS: Reviewed. GENERAL: Well-developed in no acute distress. HEENT: No sclera icterus. Extraocular movements grossly intact. Moist buccal mucosa. Head is atraumatic, normocephalic. ABDOMEN: Soft. Nondistended. Old PEG tube site with minimal erythema around the edges and Aquacel dressing. New PEG tube site clean dry and intact NEUROLOGIC: sleeping comfortably ASSESSMENT: 1. Infected PEG tube site and erosion of PEG tube status post new PEG tube placement 2. Severe protein calorie malnutrition 3. Iron deficiency Anemia status post colonoscopy. Colonoscopy poor prep. There was large amount of melanotic liquid stool. PLAN: -Patient scheduled for EGD tomorrow 11/02/[address] feliz -Hold tube feedings after midnight -No Coumadin tonight Physician Minister note has been reviewed by physician. Signing provider agrees with the documented findings, assessment, and plan of care. Objective - Vital Signs Vital signs: Vital Signs Temp 99.2 F 11/01/20 11:51 Pulse 65 11/01/20 11:51 Resp 16 11/01/20 11:51 BP 103/53 11/01/20 11:51 Pulse Ox 98 11/01/20 11:51 Intake & Output 10/31/20 11/01/20 11/01/20 18:59 06:59 18:59 Intake Total 974.455 100 Output Total 250 650 250 Balance 724.455 -550 -250 Weight 87 kg 95.5 kg Intake: Intake, IV Titration 74.455 100 Amount Heparin Sod,Pork in 0.45% 74.455 NaCl 25,000 unit In 0.45 % NaCl 1 250ml.bag @ 10. 869 UNITS/KG/HR 9.999 mls /hr IV .Q24H J[facility] Rx#: [id number] Piperacillin-Tazobactam 3 100 .375 gm In Sodium Chloride 0.9% 100 ml @ 25 mls/hr IVPB Q8HR J[facility] Rx# :[id number] Tube Feeding 900 Output: Urine 250 650 250 Stool 0 0 Other: Voiding Method External Catheter External Catheter # Voids 1 0 # Bowel Movements 1 0 - Labs CBC & Chem 7: 11/01/20 09:37 11/01/20 09:37 Labs: Abnormal Lab Results - Last 24 Hours (Table) 10/31/20 10/31/20 10/31/20 Range/Units 16:13 16:41 19:42 RBC (3.80-5.40) m/uL Hgb (11.4-16.0) gm/dL Hct (34.0-46.0) % MCHC (31.0-37.0) g/dL RDW (11.5-15.5) % PT (9.0-12.0) sec INR (<1.2) APTT >200.0 H* (22.0-30.0) sec BUN (7-17) mg/dL Creatinine (0.52-1.04) mg/dL Glucose (74-99) mg/dL POC Glucose (mg/dL) 194 H 226 H (75-99) mg/dL Plasma Lactic Acid Buddy (0.7-2.0) mmol/L Alkaline Phosphatase (38-126) U/L Total Protein (6.3-8.2) g/dL Albumin (3.5-5.0) g/dL 10/31/20 10/31/20 11/01/20 Range/Units 22:55 23:58 05:41 RBC (3.80-5.40) m/uL Hgb (11.4-16.0) gm/dL Hct (34.0-46.0) % MCHC (31.0-37.0) g/dL RDW (11.5-15.5) % PT (9.0-12.0) sec INR (<1.2) APTT 77.2 H (22.0-30.0) sec BUN (7-17) mg/dL Creatinine (0.52-1.04) mg/dL Glucose (74-99) mg/dL POC Glucose (mg/dL) 226 H 250 H (75-99) mg/dL Plasma Lactic Acid Buddy (0.7-2.0) mmol/L Alkaline Phosphatase (38-126) U/L Total Protein (6.3-8.2) g/dL Albumin (3.5-5.0) g/dL 11/01/20 11/01/20 11/01/20 Range/Units 09:37 09:37 09:37 RBC 2.97 L (3.80-5.40) m/uL Hgb 8.6 L (11.4-16.0) gm/dL Hct 28.3 L (34.0-46.0) % MCHC 30.4 L (31.0-37.0) g/dL RDW 22.5 H (11.5-15.5) % PT 32.3 H (9.0-12.0) sec INR 3.4 H (<1.2) APTT (22.0-30.0) sec BUN 18 H (7-17) mg/dL Creatinine 0.39 L (0.52-1.04) mg/dL Glucose 239 H (74-99) mg/dL POC Glucose (mg/dL) (75-99) mg/dL Plasma Lactic Acid Buddy (0.7-2.0) mmol/L Alkaline Phosphatase 140 H (38-126) U/L Total Protein 5.5 L (6.3-8.2) g/dL Albumin 2.5 L (3.5-5.0) g/dL 11/01/20 11/01/20 11/01/20 Range/Units 10:14 11:42 12:35 RBC (3.80-5.40) m/uL Hgb (11.4-16.0) gm/dL Hct (34.0-46.0) % MCHC (31.0-37.0) g/dL RDW (11.5-15.5) % PT (9.0-12.0) sec INR (<1.2) APTT 41.6 H (22.0-30.0) sec BUN (7-17) mg/dL Creatinine (0.52-1.04) mg/dL Glucose (74-99) mg/dL POC Glucose (mg/dL) 229 H (75-99) mg/dL Plasma Lactic Acid Buddy 2.4 H* (0.7-2.0) mmol/L Alkaline Phosphatase (38-126) U/L Total Protein (6.3-8.2) g/dL Albumin (3.5-5.0) g/dL
[2020-11-01] MEDS: LORATADINE 10 MG TAB PEG/G-TUBE SCH (16:53)
[2020-11-01] MEDS: MULTIVITAMINS, THERA LIQUID 237 ML BOTTLE PEG/G-TUBE SCH (17:44)
[2020-11-01] MEDS: FERROUS SULFATE ORAL ELIXIR 300 MG/5 ML CUP PEG/G-TUBE SCH (17:44)
[2020-11-01 17:49] LABS: Glucose,Whole Blood 234 mg/dL (75-99)
[2020-11-01] MEDS: MORPHINE SULFATE 4 MG/ML SYRINGE IV PRN ×2 (17:49→22:56)
[2020-11-01] MEDS ORDERED: WARFARIN 0.5 MG TAB PO ONE (18:00)
[2020-11-01] MEDS: LACTATED RINGERS 1,000 ML IV SCH (18:33)
--- NOTE | 2020-11-01 18:44 | PN ---
PROGRESS NOTE DATE OF SERVICE: 11/01/2020 REASON FOR FOLLOWUP: PEG tube site cellulitis. INTERVAL HISTORY: The patient is afebrile. The patient is currently breathing comfortably. The patient remains non-verbal and did not provide any history. No vomiting, diarrhea or any other changes reported by the nursing staff. PHYSICAL EXAMINATION: Blood pressure 103/53 with a pulse of 65, temperature 99.2. She is 98% on 2 L nasal cannula. GENERAL DESCRIPTION: General description is an elderly female lying in bed in no distress. RESPIRATORY SYSTEM: Unlabored breathing. Clear to auscultation anteriorly. HEART: S1, S2. Regular rate and rhythm. ABDOMEN: Soft. No tenderness. LABS: Lactic acid 2.0. DIAGNOSTIC IMPRESSION AND PLAN: Patient with PEG tube site cellulitis. Culture was positive for for which the patient is on voriconazole; to continue. Finish her 2-week course of therapy and continue with supportive care. MMODL / IJN: [id number] /
[2020-11-01] MEDS: INSULIN DETEMIR (LEVEMIR) 100 UNIT/ML SYR SQ SCH (20:29)
[2020-11-01] MEDS: PRAVASTATIN SODIUM 40 MG TAB PO SCH (20:29)
[2020-11-01 20:40] LABS: Glucose,Whole Blood 268 mg/dL (75-99)
[2020-11-01] MEDS: CHOLESTYRAMINE (WITH SUGAR) 4 GM PACKET PEG/G-TUBE SCH (21:15)
[2020-11-01 23:04] LABS: Glucose,Whole Blood 223 mg/dL (75-99)
[2020-11-02 05:21] LABS: Glucose,Whole Blood 195 mg/dL (75-99)
--- NOTE | 2020-11-02 05:29 | PN ---
PROGRESS NOTE PEG tube site cellulitis, lactic acidosis, elevated INR. Remains nonverbal. No nausea, vomiting, diarrhea. Blood pressure 103/53, pulse 65, temp 99.2, O2 98 on 2 L, labored breathing. Heart S1, S2. Abdomen is soft. Hematology negative Homans. Psych: Fair mood affect. ASSESSMENT: 1. PEG tube cellulitis. 2. Cultures positive for Hannah. On voriconazole. Continue 2 week course. Elevated INR. No further signs of bleeding. We are going to keep on Coumadin and send her back to rehab center tomorrow. MMODL / IJN: [id number] /
[2020-11-02] MEDS: METOPROLOL TARTRATE 50 MG TAB PEG/G-TUBE SCH ×3 (05:32→21:08)
[2020-11-02] MEDS: GABAPENTIN 100 MG CAP PEG/G-TUBE SCH ×3 (05:32→20:00)
[2020-11-02] MEDS: INSULIN ASPART (NovoLOG) 100 UNIT/ML VIAL SQ SCH ×3 (05:32→17:16)
--- NOTE | 2020-11-02 05:39 | DS ---
DISCHARGE SUMMARY DISCHARGE DIAGNOSES: 1. Dyspnea. 2. Wound recheck. 3. Iron deficiency anemia. 4. PEG tube infection and PEG tube malfunction. 5. Chronic obstructive pulmonary disease. 6. Congestive heart failure. 7. Pneumonia, healthcare acquired. 8. Wound infection of a PEG tube. MEDICATIONS: Home medicines: Voriconazole 300 mg q.12 hours for 5 more days. Coumadin 2 mg daily, Pravachol 40 mg per PEG tube daily, Keppra 100 mg per PEG tube daily, aspirin 81 mg per PEG tube daily, Dulcolax 10 mg rectal daily p.r.n., Acetaminophen 640 PEG tube q.6 hours p.r.n., multivitamin daily. rectal p.r.n., DuoNeb updraft q.i.d., Claritin 10 mg PEG tube daily, Lopressor 100 mg PEG tube t.i.d., Neurontin 100 mg PEG tube t.i.d., simethicone 40 mg PEG tube b.i.d., Biotene dry mouthwash 5 mL mucous membranes t.i.d. Levemir 40 units q.h.s., milk of magnesia concentrate 7200 mg per PEG tube daily p.r.n. for constipation, Nitrostat 0.4 mg sublingual q.5h minutes p.r.n. for chest pain, Lasix 40 mg per PEG tube b.i.d., Accu-Chek protocol with regular NovoLog insulin, Glucophage 500 mg b.i.d., 30 mL PEG tube b.i.d., Cardizem 60 mg per PEG tube b.i.d., ferrous sulfate 330 mg PEG tube daily, cholestyramine 4 mg PEG tube q.h.s. CONDITION: Stable. PROGNOSIS: Guarded. Ambulate as tolerated. She is pretty much bed bound. She will be sent home on Coumadin 2 mg daily for stroke and DVT and atrial fibrillation stroke prophylaxis. Continue voriconazole for 5 more days for PEG tube wound infection and Aquacel Silver will be applied to the wound daily. The patient is stabilized. EG tube was replaced. PEG tube infection was treated with medications, antifungals, Santyl dressing changes. Patient will continue with this at [facility] Follow up as an outpatient. She had GI bleeding also while in the hospital. GI bleeding was improved. Anticoagulants were stopped for awhile and had to be restarted. The patient was stabilized and sent home in stable condition to rehab center. MMINEZ / NIMISHA: [id number] /
[2020-11-02 07:50] LABS: Anisocytosis Moderate; Basophils % (A) 0 %; Eosinophils # (A) 0.3 k/uL (0-0.7); Eosinophils % (A) 3 %; HCT 28.7 % (34.0-46.0); HGB 8.6 gm/dL (11.4-16.0); Hypochromasia Marked; Lymphocytes # (A) 1.3 k/uL (1.0-4.8); Lymphocytes % (A) 13 %; MCH 29.1 pg (25.0-35.0); MCHC 29.9 g/dL (31.0-37.0); MCV 97.2 fL (80.0-100.0); Macrocytosis Moderate; Mean Platelet Volume 9.2; Monocytes # (A) 0.5 k/uL (0-1.0); Monocytes % (A) 5 %; Neutrophils # (A) 7.7 k/uL (1.3-7.7); Neutrophils % (A) 77 %; Platelet Count 243 k/uL (150-450); Poikilocytosis Slight; RBC 2.96 m/uL (3.80-5.40); RDW 22.5 % (11.5-15.5)
[2020-11-02 08:05] LABS: ALT 31 U/L (4-34); AST 49 U/L (14-36); African American GFR (CKD) >90 (>60 ml/min/1.73 sqM); Albumin 2.6 g/dL (3.5-5.0); Alkaline Phosphatase 112 U/L (38-126); Anion Gap 5 mmol/L; Blood Urea Nitrogen 22 mg/dL (7-17); Calcium 8.6 mg/dL (8.4-10.2); Carbon Dioxide 29 mmol/L (22-30); Chloride 105 mmol/L (98-107); Glucose 182 mg/dL (74-99); Non-African American GFR(CKD) >90 (>60 ml/min/1.73 sqM); Potassium 4.2 mmol/L (3.5-5.1); Sodium 139 mmol/L (137-145); Total Bilirubin 0.4 mg/dL (0.2-1.3); Total Protein 5.8 g/dL (6.3-8.2)
[2020-11-02 08:09] LABS: INR 2.8 (<1.2); Prothrombin Time 27.3 sec (9.0-12.0)
[2020-11-02] MEDS: PIPERACILLIN-TAZOBACTAM 3.375 GM in SODIUM CHLORIDE 0.9% 100 ML IVPB SCH ×2 (08:17→16:52)
[2020-11-02] MEDS: SODIUM FERRIC GLUCONAT-SUCROSE 125 MG in SODIUM CHLORIDE 0.9% 100 ML IVPB SCH (08:17)
--- NOTE | 2020-11-02 08:21 | XR ---
EXAMINATION TYPE: XR chest 1V portable DATE OF EXAM: 11/02/2020 COMPARISON: Chest x-ray 10/31/2020 HISTORY: Aspiration pneumonia TECHNIQUE: Single frontal view of the chest is obtained. FINDINGS: Patient is rotated. Pacemaker is stable. There are overlying leads, no pneumothorax or ple ural effusion. Postop changes again noted. Lung volumes are low. Interstitium is increased. Heart is enlarged. Overlying artifacts noted. IMPRESSION: There may be a component of interstitial edema. Expiratory rotated exam. Cardiomegaly.
[2020-11-02] MEDS: DILTIAZEM ORAL 60 MG TAB PEG/G-TUBE SCH ×3 (11:07→21:08)
[2020-11-02] MEDS: metFORMIN 500 MG TAB PEG/G-TUBE SCH ×2 (11:07→16:53)
[2020-11-02] MEDS: SIMETHICONE 40 MG/0.6 ML DROPS 2,000 MG/30 ML BOTTLE PEG/G-TUBE SCH ×2 (11:07→16:56)
[2020-11-02] MEDS: DRY MOUTH SPRAY 44.3 SPRAY/44.3 ML SPRAY MUCOUS MEM SCH ×3 (11:07→16:56)
[2020-11-02] MEDS: FUROSEMIDE 40 MG TAB PEG/G-TUBE SCH ×2 (11:07→16:54)
[2020-11-02 12:21] LABS: Glucose,Whole Blood 171 mg/dL (75-99)
[2020-11-02] MEDS: SODIUM CHLORIDE 0.9% 1,000 ML IV SCH (13:47)
[2020-11-02] MEDS ORDERED: PROPOFOL 10 MG/ML 20 ML VIAL IV ONE (14:29)
[2020-11-02] MEDS ORDERED: IV FLUID CONTINUATION 1,000 ML IV ONE (14:51)
--- NOTE | 2020-11-02 14:57 | P.OP ---
Date of Procedure: 11/02/20 Preoperative Diagnosis: GI bleed Postoperative Diagnosis: Blood in the hypopharynx Procedure(s) Performed: EGD Anesthesia: MAC Surgeon: Marco A Brower Pathology: none sent Condition: stable Disposition: PACU Description of Procedure: The patient's placed on the endoscopy table in the lateral position. She received IV sedation. The gastric scope was placed the oropharynx and then into the hypopharynx. There was some blood seen in the hypopharynx. The scope was then placed in the esophagus and into the stomach. The scope was then placed through the pylorus. The first and second portion the duodenum appeared normal. The scope was brought back the stomach and this appeared normal. There is no blood seen stomach. The scope was then brought back in the esophagus and there is a slight blood staining of the esophagus is a presumed to be blood swallow from the hypopharynx. The scope summer back hypopharynx. The area was is. There is no active bleeding seen. However there was evidence of clot and blood in the hypopharynx. It was unsure of the etiology. Scope was then withdrawn.
--- NOTE | 2020-11-02 15:36 | PN ---
PROGRESS NOTE DATE OF SERVICE: 11/02/2020 REASON FOR FOLLOWUP: PEG tube site cellulitis. INTERVAL HISTORY: The patient is afebrile. The patient is breathing comfortably, currently on 2 L nasal cannula. She has been tolerating her tube feeds. No vomiting or diarrhea reported by the nursing staff. PHYSICAL EXAMINATION: Blood pressure is 131/53 with a pulse of 80, temperature 97.4. She is 96% on 2 L nasal cannula. GENERAL DESCRIPTION: General description is an elderly female lying in bed in no distress. RESPIRATORY SYSTEM: Unlabored breathing. Decreased breath sounds at the bases. No wheeze. HEART: S1, S2. Regular rate and rhythm. ABDOMEN: Soft. No tenderness. LABS: Hemoglobin is 8.6, white count 10.0. BUN of 22, creatinine 0.51. DIAGNOSTIC IMPRESSION AND PLAN: Patient with PEG tube site cellulitis. Cultures with Hannah glabrata. Overall improvement on voriconazole; to continue for about a week with close outpatient followup. MMODL / IJN: [id number] /
--- NOTE | 2020-11-02 16:10 | P.PN ---
Subjective Progress Note Date: 11/02/20 Principal diagnosis: Aspiration pneumonia Ongoing cough Hannah glabrata associated PEG tube site cellulitis Iron deficiency anemia Protein calorie malnourishment Paroxysmal atrial fibrillation Status post mitral valve replacement 2000 Sick sinus syndrome History of strokes bedbound status 11/02/2021, patient seen eval examined during the rounds labs reviewed medications reviewed intermittent dry cough is present patient remains on antibiotics tolerating well status post endoscopy and EGD patient has some blood and clot in hypopharynx noted, likely due to occult nasal bleeding//epistaxis will put a humidifier with oxygen, chest x-ray performed revealed mild inters titial edema pacemaker is stable, no effusion or pneumothorax noted 11/01/2020, patient seen eval examined during the rounds labs reviewed medications reviewed intermittent cough is present but severity appears to have improved patient tolerating tube feed well is 60 mL an hour well anticoagulated with Coumadin, saturation is 98% on 2 L, respiratory status stable, and cough is less, occasional reviewed patient has been on Zosyn tolerating well Due to recurrent aspiration patient underwent a PEG tube placement Camryn infection of the site, chest x-ray revealed interstitial edema small bilateral pleural effusion and atelectasis possible pneumonia cannot be excluded, patient has ongoing cough unfortunately not much data can be obtained from her, patient will be started on broad-spectrum antibiotics labs medication checks x-ray reviewed she is well anticoagulated with Coumadin, PEG tube site positive for hannah glabrata being treated with voriconazole Objective - Vital Signs Vital signs: Vital Signs Temp 98.1 F 11/02/20 15:10 Pulse 90 11/02/20 15:40 Resp 16 11/02/20 15:40 BP 122/58 11/02/20 15:40 Pulse Ox 100 11/02/20 15:52 Intake & Output 11/01/20 11/02/20 11/02/20 18:59 06:59 18:59 Intake Total 700 100 Output Total 750 400 Balance -750 700 -300 Weight 88.5 kg Intake: IV 100 Intake, IV Titration 100 Amount Piperacillin-Tazobactam 3 100 .375 gm In Sodium Chloride 0.9% 100 ml @ 25 mls/hr IVPB Q8HR [facility] Rx# :[id number] Tube Feeding 600 Output: Urine 750 400 Stool 0 0 Other: Voiding Method External Catheter External Catheter # Voids 0 # Bowel Movements 0 - Exam - Constitutional General appearance: average body habitus, disheveled - EENT Eyes: PERRLA Ears: bilateral: normal - Neck Carotids: bilateral: upstroke normal Thyroid: bilateral: normal size - Respiratory Respiratory: bilateral: diminished - Cardiovascular Rhythm: regular Heart sounds: normal: S1, S2 - Gastrointestinal General gastrointestinal: decreased bowel sounds - Neurologic Neurologic: CNII-XII intact - Musculoskeletal Musculoskeletal: generalized weakness - Labs CBC & Chem 7: 11/02/20 07:17 11/02/20 07:17 Labs: Abnormal Lab Results - Last 24 Hours (Table) 11/01/20 11/01/20 11/01/20 Range/Units 17:47 20:38 23:03 RBC (3.80-5.40) m/uL Hgb (11.4-16.0) gm/dL Hct (34.0-46.0) % MCHC (31.0-37.0) g/dL RDW (11.5-15.5) % PT (9.0-12.0) sec INR (<1.2) BUN (7-17) mg/dL Creatinine (0.52-1.04) mg/dL Glucose (74-99) mg/dL POC Glucose (mg/dL) 234 H 268 H 223 H (75-99) mg/dL AST (14-36) U/L Total Protein (6.3-8.2) g/dL Albumin (3.5-5.0) g/dL 11/02/20 11/02/20 11/02/20 Range/Units 05:18 07:17 07:17 RBC 2.96 L (3.80-5.40) m/uL Hgb 8.6 L (11.4-16.0) gm/dL Hct 28.7 L (34.0-46.0) % MCHC 29.9 L (31.0-37.0) g/dL RDW 22.5 H (11.5-15.5) % PT 27.3 H (9.0-12.0) sec INR 2.8 H (<1.2) BUN (7-17) mg/dL Creatinine (0.52-1.04) mg/dL Glucose (74-99) mg/dL POC Glucose (mg/dL) 195 H (75-99) mg/dL AST (14-36) U/L Total Protein (6.3-8.2) g/dL Albumin (3.5-5.0) g/dL 11/02/20 11/02/20 Range/Units 07:17 12:19 RBC (3.80-5.40) m/uL Hgb (11.4-16.0) gm/dL Hct (34.0-46.0) % MCHC (31.0-37.0) g/dL RDW (11.5-15.5) % PT (9.0-12.0) sec INR (<1.2) BUN 22 H (7-17) mg/dL Creatinine 0.51 L (0.52-1.04) mg/dL Glucose 182 H (74-99) mg/dL POC Glucose (mg/dL) 171 H (75-99) mg/dL AST 49 H (14-36) U/L Total Protein 5.8 L (6.3-8.2) g/dL Albumin 2.6 L (3.5-5.0) g/dL Microbiology - Last 24 Hours (Table) 11/01/20 12:35 Blood Culture - Preliminary Blood No Growth after 24 hours Assessment and Plan Assessment: Aspiration pneumonia Ongoing cough likely related to postnasal drip Hannah glabrata associated PEG tube site cellulitis Old blood in the hypopharynx likely occurred epistaxis Iron deficiency anemia Protein calorie malnourishment Paroxysmal atrial fibrillation Status post mitral valve replacement 2000 Sick sinus syndrome History of strokes bedbound status Plan: Continue Zosyn Add humidification with oxygen Continue tube feed Follow clinical course closely Further plan of care as per clinical response of patient Reviewed follow-up chest x-ray
[2020-11-02] MEDS: levETIRAcetam ORAL SOLN 500 MG/5 ML CUP PEG/G-TUBE SCH (16:53)
[2020-11-02] MEDS: FERROUS SULFATE ORAL ELIXIR 300 MG/5 ML CUP PEG/G-TUBE SCH (16:53)
[2020-11-02] MEDS: VORICONAZOLE 200 MG TAB PO SCH ×2 (16:54→20:01)
[2020-11-02] MEDS: MULTIVITAMINS, THERA LIQUID 237 ML BOTTLE PEG/G-TUBE SCH (16:55)
[2020-11-02] MEDS: LACTATED RINGERS 1,000 ML IV SCH (16:55)
[2020-11-02] MEDS: LORATADINE 10 MG TAB PEG/G-TUBE SCH (16:56)
[2020-11-02] MEDS: ACETAMINOPHEN ORAL SUSP (PEDS) 3,840 MG/120 ML BOTTLE PEG/G-TUBE PRN (17:02)
[2020-11-02 17:19] LABS: Glucose,Whole Blood 160 mg/dL (75-99)
[2020-11-02] MEDS ORDERED: WARFARIN 2 MG TAB PO SCH (18:00)
[2020-11-02 19:57] LABS: Glucose,Whole Blood 227 mg/dL (75-99)
[2020-11-02] MEDS: PRAVASTATIN SODIUM 40 MG TAB PO SCH (20:00)
[2020-11-02] MEDS: INSULIN DETEMIR (LEVEMIR) 100 UNIT/ML SYR SQ SCH (20:00)
[2020-11-02] MEDS: CHOLESTYRAMINE (WITH SUGAR) 4 GM PACKET PEG/G-TUBE SCH (21:07)
[2020-11-02] MEDS ORDERED: VANCOMYCIN IV PER PHARMACY 1 EACH MISC MISCELLANE PRN (21:48)
[2020-11-02] MEDS ORDERED: VANCOMYCIN 1,500 MG in SODIUM CHLORIDE 0.9% 250 ML IVPB ONE (22:00)
[2020-11-02 23:53] LABS: Glucose,Whole Blood 258 mg/dL (75-99)
[2020-11-03] MEDS: INSULIN ASPART (NovoLOG) 100 UNIT/ML VIAL SQ SCH ×5 (00:02→23:19)
[2020-11-03 05:00] LABS: Glucose,Whole Blood 282 mg/dL (75-99)
[2020-11-03] MEDS: METOPROLOL TARTRATE 50 MG TAB PEG/G-TUBE SCH ×3 (05:01→21:44)
[2020-11-03] MEDS: GABAPENTIN 100 MG CAP PEG/G-TUBE SCH ×3 (05:01→21:44)
[2020-11-03] MEDS: SODIUM CHLORIDE 0.9% 1,000 ML IV SCH ×2 (05:02→14:44)
--- NOTE | 2020-11-03 06:35 | PN ---
PROGRESS NOTE She had an EGD today that showed GI bleed coming from the nasal area on EGD. Hemoglobin stable at 8.6. Remains on Coumadin. Remains on a wound culture, Hannah, IV antibiotic oral antibiotics for a fungal infection in her PEG tube area. She has aspiration pneumonia, ongoing cough, Hannah glabrata, iron deficiency anemia, protein calorie malnourishment, paroxysmal atrial fibrillation, status post mitral valve replacement. GI soft. PEG tube intact. Hematology: Negative Homans. Psych: Appropriate mood and affect. Cardiovascular S1, S2. Blood pressure 122/58, pulse 75, respiratory 18-20. Lungs are clear. Heart: S1, S2. BUN 21, creatinine is 0.11. ASSESSMENT: 1. Aspiration pneumonia. 2. Acute on chronic anemia. 3. Nasal bleeding, unclear etiology. ENT consult pending. 4. Hannah glabrata. 5. Remains on PEG tube site infection. 6. Blood in the hypopharynx from epistaxis. 7. Iron deficiency anemia. 8. Paroxysmal atrial fibrillation. 9. Protein calorie malnourishment. 10.Status post mitral valve repair. 11.Sick sinus syndrome. Continue current treatment. Possible discharge home on Coumadin if hemoglobin stabilizes tomorrow. Get ENT to look for nasal bleeding for consult. MMODL / IJN: [id number] /
--- NOTE | 2020-11-03 08:55 | P.PN ---
Subjective Progress Note Date: 11/02/20 Principal diagnosis: prog anemia, iron deficient Today, patient opened her eyes and shook her head to questions, no to pain or nausea. Objective - Vital Signs Vital signs: Vital Signs Temp 98.0 F 11/03/20 03:19 Pulse 85 11/03/20 03:19 Resp 18 11/03/20 03:19 BP 110/51 11/03/20 03:19 Pulse Ox 100 11/03/20 08:13 Intake & Output 11/02/20 11/03/20 11/03/20 18:59 06:59 18:59 Intake Total 860 600 Output Total 400 480 Balance 460 120 Weight 95 kg Intake: IV 100 Intake, IV Titration 460 Amount Lactated Ringers 1,000 ml 160 @ 20 mls/hr IV .Q24H [facility] Rx#:[id number] Piperacillin-Tazobactam 3 200 .375 gm In Sodium Chloride 0.9% 100 ml @ 25 mls/hr IVPB Q8HR [facility] Rx# :[id number] Sodium Ferric Gluconat- 100 Sucrose 125 mg In Sodium Chloride 0.9% 100 ml @ 100 mls/hr IVPB DAILY [facility] Rx#:[id number] Oral 240 0 Tube Feeding 600 Other 60 Output: Urine 400 480 Stool 0 Other: Voiding Method External Catheter External Catheter # Voids 1 - Constitutional General appearance: Present: no acute distress, obese - EENT Eyes: Present: anicteric sclerae ENT: Present: hearing grossly normal - Gastrointestinal General gastrointestinal: Present: normal bowel sounds, soft - Labs CBC & Chem 7: 11/02/20 07:17 11/02/20 07:17 Labs: Abnormal Lab Results - Last 24 Hours (Table) 11/02/20 11/02/20 11/02/20 Range/Units 12:19 16:59 19:56 POC Glucose (mg/dL) 171 H 160 H 227 H (75-99) mg/dL 11/02/20 11/03/20 Range/Units 23:50 04:58 POC Glucose (mg/dL) 258 H 282 H (75-99) mg/dL Microbiology - Last 24 Hours (Table) 11/01/20 12:35 Blood Culture Gram Stain - Preliminary Blood 11/01/20 12:35 Blood Culture - Final Blood Assessment and Plan (1) Iron deficiency anemia Narrative/Plan: Iron deficiency noted on blood drawn 10/21. She remains on iron infusions per Attending. CBC ordered daily while inpt, monitoring for Hgb stability as pt is on anticoagulation for mechanical heart valve. INR 2.8 DIC and hemolysis work up was negative. Transfuse if Hgb<7, Hgb 8.6 today Nursing reports plans for EGD, no reported black or maroon stool Current Visit: Yes Status: Chronic Priority: High Code(s): D50.9 - IRON DEFICIENCY ANEMIA, UNSPECIFIED SNOMED Code(s): 91947605
[2020-11-03 10:01] LABS: Anisocytosis Moderate; Basophils % (A) 0 %; Eosinophils # (A) 0.2 k/uL (0-0.7); Eosinophils % (A) 3 %; HCT 27.1 % (34.0-46.0); HGB 8.3 gm/dL (11.4-16.0); Hypochromasia Marked; Lymphocytes # (A) 1.1 k/uL (1.0-4.8); Lymphocytes % (A) 16 %; MCH 29.4 pg (25.0-35.0); MCHC 30.5 g/dL (31.0-37.0); MCV 96.2 fL (80.0-100.0); Macrocytosis Moderate; Mean Platelet Volume 9.1; Monocytes # (A) 0.3 k/uL (0-1.0); Monocytes % (A) 5 %; Neutrophils # (A) 5.3 k/uL (1.3-7.7); Neutrophils % (A) 74 %; Platelet Count 277 k/uL (150-450); Poikilocytosis Moderate; RBC 2.81 m/uL (3.80-5.40); RDW 22.4 % (11.5-15.5); WBC 7.1 k/uL (3.8-10.6)
[2020-11-03 10:18] LABS: INR 2.7 (<1.2); Prothrombin Time 26.2 sec (9.0-12.0)
[2020-11-03 10:28] LABS: ALT 48 U/L (4-34); AST 73 U/L (14-36); African American GFR (CKD) >90 (>60 ml/min/1.73 sqM); Albumin 2.5 g/dL (3.5-5.0); Alkaline Phosphatase 142 U/L (38-126); Anion Gap 4 mmol/L; Blood Urea Nitrogen 21 mg/dL (7-17); Calcium 8.5 mg/dL (8.4-10.2); Carbon Dioxide 29 mmol/L (22-30); Chloride 106 mmol/L (98-107); Glucose 309 mg/dL (74-99); Non-African American GFR(CKD) >90 (>60 ml/min/1.73 sqM); Potassium 4.4 mmol/L (3.5-5.1); Sodium 139 mmol/L (137-145); Total Bilirubin 0.2 mg/dL (0.2-1.3); Total Protein 5.4 g/dL (6.3-8.2)
[2020-11-03] MEDS: DRY MOUTH SPRAY 44.3 SPRAY/44.3 ML SPRAY MUCOUS MEM SCH ×3 (10:44→18:41)
[2020-11-03] MEDS: levETIRAcetam ORAL SOLN 500 MG/5 ML CUP PEG/G-TUBE SCH (10:44)
[2020-11-03] MEDS: FUROSEMIDE 40 MG TAB PEG/G-TUBE SCH ×2 (10:44→18:41)
[2020-11-03] MEDS: DILTIAZEM ORAL 60 MG TAB PEG/G-TUBE SCH ×3 (10:46→21:44)
[2020-11-03] MEDS: metFORMIN 500 MG TAB PEG/G-TUBE SCH ×2 (10:46→18:41)
[2020-11-03] MEDS: VORICONAZOLE 200 MG TAB PO SCH ×2 (10:47→21:45)
[2020-11-03] MEDS: VANCOMYCIN 1,500 MG in SODIUM CHLORIDE 0.9% 250 ML IVPB SCH ×2 (10:47→21:44)
[2020-11-03] MEDS: SODIUM FERRIC GLUCONAT-SUCROSE 125 MG in SODIUM CHLORIDE 0.9% 100 ML IVPB SCH (10:47)
[2020-11-03] MEDS: SIMETHICONE 40 MG/0.6 ML DROPS 2,000 MG/30 ML BOTTLE PEG/G-TUBE SCH ×2 (10:48→18:42)
[2020-11-03] MEDS: ACETAMINOPHEN ORAL SUSP (PEDS) 3,840 MG/120 ML BOTTLE PEG/G-TUBE PRN (10:52)
[2020-11-03 11:47] LABS: Glucose,Whole Blood 359 mg/dL (75-99)
[2020-11-03 11:47] LABS: Glucose,Whole Blood 345 mg/dL (75-99)
--- NOTE | 2020-11-03 14:26 | P.PN ---
Subjective Progress Note Date: 11/03/20 CHIEF COMPLAINT: PEG tube site infection HISTORY OF PRESENT ILLNESS: Patient is status post EGD for evaluation of GI bleed. There is noted to be blood in the hypopharynx. Patient has been seen by ENT service per nursing staff Dr. Alejandro did not see any active bleeding. Patient is currently tolerating her tube feedings. No residual reported. Denies any nausea or vomiting. Afebrile. WBC 7.1 hemoglobin 8.3 platelets 277 INR 2.7 PHYSICAL EXAM: VITAL SIGNS: Reviewed. GENERAL: Well-developed in no acute distress. HEENT: No sclera icterus. Extraocular movements grossly intact. Moist buccal mucosa. Head is atraumatic, normocephalic. ABDOMEN: Soft. Nondistended. Old PEG tube site with increasing erythema around the edges. New PEG tube site clean dry and intact NEUROLOGIC: Nonverbal ASSESSMENT: 1. Infected PEG tube site and erosion of PEG tube status post new PEG tube placement 2. Severe protein calorie malnutrition 3. Iron deficiency Anemia status post colonoscopy. Colonoscopy poor prep. There was large amount of melanotic liquid stool. Now status post EGD which had revealed blood in the hypopharynx PLAN: -Continue tube feedings -Okay to continue Coumadin from surgical standpoint -Continue local wound care of old PEG tube site -Antibiotics per ID Physician Reliability Engineer note has been reviewed by physician. Signing provider agrees with the documented findings, assessment, and plan of care. Objective - Vital Signs Vital signs: Vital Signs Temp 98.0 F 11/03/20 03:19 Pulse 85 11/03/20 03:19 Resp 18 11/03/20 03:19 BP 110/51 11/03/20 03:19 Pulse Ox 100 11/03/20 08:13 Intake & Output 11/02/20 11/03/20 11/03/20 18:59 06:59 18:59 Intake Total 860 600 Output Total 400 480 200 Balance 460 120 -200 Weight 95 kg Intake: IV 100 Intake, IV Titration 460 Amount Lactated Ringers 1,000 ml 160 @ 20 mls/hr IV .Q24H [facility] Rx#:[id number] Piperacillin-Tazobactam 3 200 .375 gm In Sodium Chloride 0.9% 100 ml @ 25 mls/hr IVPB Q8HR [facility] Rx# :[id number] Sodium Ferric Gluconat- 100 Sucrose 125 mg In Sodium Chloride 0.9% 100 ml @ 100 mls/hr IVPB DAILY [facility] Rx#:[id number] Oral 240 0 Tube Feeding 600 Other 60 Output: Urine 400 480 200 Stool 0 Other: Voiding Method External Catheter External Catheter # Voids 1 - Labs CBC & Chem 7: 11/03/20 09:24 11/03/20 09:24 Labs: Abnormal Lab Results - Last 24 Hours (Table) 11/02/20 11/02/20 11/02/20 Range/Units 16:59 19:56 23:50 RBC (3.80-5.40) m/uL Hgb (11.4-16.0) gm/dL Hct (34.0-46.0) % MCHC (31.0-37.0) g/dL RDW (11.5-15.5) % PT (9.0-12.0) sec INR (<1.2) BUN (7-17) mg/dL Creatinine (0.52-1.04) mg/dL Glucose (74-99) mg/dL POC Glucose (mg/dL) 160 H 227 H 258 H (75-99) mg/dL AST (14-36) U/L ALT (4-34) U/L Alkaline Phosphatase (38-126) U/L Total Protein (6.3-8.2) g/dL Albumin (3.5-5.0) g/dL 11/03/20 11/03/20 11/03/20 Range/Units 04:58 09:24 09:24 RBC (3.80-5.40) m/uL Hgb (11.4-16.0) gm/dL Hct (34.0-46.0) % MCHC (31.0-37.0) g/dL RDW (11.5-15.5) % PT 26.2 H (9.0-12.0) sec INR 2.7 H (<1.2) BUN 21 H (7-17) mg/dL Creatinine 0.43 L (0.52-1.04) mg/dL Glucose 309 H (74-99) mg/dL POC Glucose (mg/dL) 282 H (75-99) mg/dL AST 73 H (14-36) U/L ALT 48 H (4-34) U/L Alkaline Phosphatase 142 H (38-126) U/L Total Protein 5.4 L (6.3-8.2) g/dL Albumin 2.5 L (3.5-5.0) g/dL 11/03/20 11/03/20 11/03/20 Range/Units 09:24 11:44 11:45 RBC 2.81 L (3.80-5.40) m/uL Hgb 8.3 L (11.4-16.0) gm/dL Hct 27.1 L (34.0-46.0) % MCHC 30.5 L (31.0-37.0) g/dL RDW 22.4 H (11.5-15.5) % PT (9.0-12.0) sec INR (<1.2) BUN (7-17) mg/dL Creatinine (0.52-1.04) mg/dL Glucose (74-99) mg/dL POC Glucose (mg/dL) 359 H 345 H (75-99) mg/dL AST (14-36) U/L ALT (4-34) U/L Alkaline Phosphatase (38-126) U/L Total Protein (6.3-8.2) g/dL Albumin (3.5-5.0) g/dL Microbiology - Last 24 Hours (Table) 11/01/20 12:35 Blood Culture Gram Stain - Preliminary Blood 11/01/20 12:35 Blood Culture - Final Blood
[2020-11-03] MEDS: LACTATED RINGERS 1,000 ML IV SCH (14:44)
--- NOTE | 2020-11-03 16:24 | PN ---
PROGRESS NOTE DATE OF SERVICE: 11/03/2020. REASON FOR FOLLOW UP: 1. PEG tube site cellulitis. 2. Positive blood culture. INTERVAL HISTORY: The patient is afebrile. The patient is hemodynamically stable. The patient is currently breathing comfortably on 2 L nasal cannula. No nausea, no vomiting or any diarrhea has been reported by the nursing staff. PHYSICAL EXAMINATION: Blood pressure is 110/51 with a pulse of 85, temperature is 98. He is 96% on 2 L nasal cannula. General description is an elderly female lying in bed in no distress. Respiratory system: Unlabored breathing. Decreased breath sounds at the base, no wheeze. Heart S1, S2. Regular rate and rhythm. Abdomen soft, no tenderness. LABS: Hemoglobin 8.1, white count ( ), BUN of 21, creatinine 0.43. DIAGNOSTIC IMPRESSION AND PLAN: 1. Patient with a PEG tube site cellulitis, culture positive for Hannah glabrata. The patient has been treated with voriconazole. The patient's white count did improve. 2. Patient now with a positive blood culture with gram-positive cocci. ID sensitivity is pending, however, placed on empiric vancomycin. Blood cultures repeat to document clearance of bacteremia and continue supportive care. MMODL / IJN: [id number] /
--- NOTE | 2020-11-03 17:43 | PN ---
PROGRESS NOTE This is a 75-year-old white female. She is opening her eyes, shakes her head to questions. She has no pain or nausea. Blood pressure 110/51, temperature 98, respiratory rate 18 to 16, O2 95. No acute distress. Lungs are clear. GI soft. No signs of active bleeding nose and throat. Doctor to possibly clear her for discharge. Iron deficiency anemia. She is on IV iron, monitoring for hemoglobin stability in the mid 8s. INR is 2.8. EGD showed no sign of bleeding except from epistaxis area. I do not see any signs of a note from [facility], so I am going to discharge her home. She can follow up as an outpatient. MMODL / IJN: [id number] /
[2020-11-03] MEDS ORDERED: WARFARIN 2 MG TAB PO ONE (18:00)
[2020-11-03 18:08] LABS: Glucose,Whole Blood 343 mg/dL (75-99)
[2020-11-03] MEDS: LORATADINE 10 MG TAB PEG/G-TUBE SCH (18:41)
[2020-11-03] MEDS: FERROUS SULFATE ORAL ELIXIR 300 MG/5 ML CUP PEG/G-TUBE SCH (18:41)
[2020-11-03] MEDS: MULTIVITAMINS, THERA LIQUID 237 ML BOTTLE PEG/G-TUBE SCH (18:43)
[2020-11-03 21:21] LABS: Glucose,Whole Blood 325 mg/dL (75-99)
[2020-11-03] MEDS: INSULIN DETEMIR (LEVEMIR) 100 UNIT/ML SYR SQ SCH (21:44)
[2020-11-03] MEDS: PRAVASTATIN SODIUM 40 MG TAB PO SCH (21:44)
[2020-11-03] MEDS: CHOLESTYRAMINE (WITH SUGAR) 4 GM PACKET PEG/G-TUBE SCH (21:44)
[2020-11-03 23:10] LABS: Glucose,Whole Blood 314 mg/dL (75-99)
[2020-11-04] MEDS: SODIUM CHLORIDE 0.9% 1,000 ML IV SCH (02:41)
[2020-11-04 05:56] LABS: Glucose,Whole Blood 317 mg/dL (75-99)
[2020-11-04] MEDS: GABAPENTIN 100 MG CAP PEG/G-TUBE SCH (06:08)
[2020-11-04] MEDS: INSULIN ASPART (NovoLOG) 100 UNIT/ML VIAL SQ SCH (06:09)
[2020-11-04] MEDS: METOPROLOL TARTRATE 50 MG TAB PEG/G-TUBE SCH (06:09)
[2020-11-04] MEDS: FUROSEMIDE 40 MG TAB PEG/G-TUBE SCH (07:55)
[2020-11-04] MEDS: VORICONAZOLE 200 MG TAB PO SCH (07:55)
[2020-11-04] MEDS: DILTIAZEM ORAL 60 MG TAB PEG/G-TUBE SCH (07:55)
[2020-11-04] MEDS: metFORMIN 500 MG TAB PEG/G-TUBE SCH (07:55)
[2020-11-04] MEDS: DRY MOUTH SPRAY 44.3 SPRAY/44.3 ML SPRAY MUCOUS MEM SCH (07:56)
[2020-11-04] MEDS: levETIRAcetam ORAL SOLN 500 MG/5 ML CUP PEG/G-TUBE SCH (07:56)
[2020-11-04] MEDS: SIMETHICONE 40 MG/0.6 ML DROPS 2,000 MG/30 ML BOTTLE PEG/G-TUBE SCH (07:56)
[2020-11-04] MEDS ORDERED: VANCOMYCIN TROUGH DUE 1 EACH MISC MISCELLANE ONE (08:00)
[2020-11-04 08:03] VITALS: BP 101/70; PULSE 67; RESP 18; TEMP 97.8
[2020-11-04 08:30] LABS: INR 2.3 (<1.2); Prothrombin Time 22.3 sec (9.0-12.0)
[2020-11-04 08:41] LABS: African American GFR (CKD) >90 (>60 ml/min/1.73 sqM); Non-African American GFR(CKD) >90 (>60 ml/min/1.73 sqM)
--- NOTE | 2020-11-04 09:06 | CONS ---
CONSULTATION REASON FOR CONSULTATION: Blood in the hypopharynx. HISTORY OF PRESENT ILLNESS: This patient is a 75-year-old female who was transferred from [facility] for treatment of a UTI and an infected PEG tube. Mentally, she is in an altered state and is not available for any historical information. Therefore the historical information has been obtained from the chart and from the patient's nurse. The patient was taken to surgery to replace her PEG tube and also underwent an EGD, at which time it was noted that there was blood/blood clot noted in the hypopharynx. However, there was no active bleeding noted. It was also noted that there was no blood to be found in the patient's stomach. The patient has a history of chronic anemia. The nurse relates that the patient has not had any nasal bleeding since her hospitalization. Past medical history reveals that patient has ALLERGIES to CIPROFLOXACIN and ALL OF THE QUINOLONES. HOME MEDICATIONS: Her home medications include cholestyramine, metformin, Keppra, Pravachol, Nitrostat, Coumadin, insulin, Lopressor, Levemir, Lasix, Neurontin, Cardizem and DuoNeb. REVIEW OF SYSTEMS: CARDIOVASCULAR: Positive for hypertension and ASHD. RESPIRATORY: Positive for COPD. METABOLIC/ENDOCRINE: Positive for type-1 diabetes mellitus and hypercholesterolemia. The remainder of the review of systems is unremarkable. PHYSICAL EXAMINATION: This patient is a 75-year-old female who is semi-alert and responds poorly to commands. She is not available as a historian and is not oriented to time or place. HEENT EXAMINATION: Patient is normocephalic. Tympanic membranes are normal. Middle ear spaces are free of any fluid or infection. Pupils equal, round, reactive to light and accommodation. Extraocular movements appear to be within normal limits. Intranasal examination reveals moderate to severe septal deviation, but there is no evidence any active bleeding anteriorly or in the mid portion of the nasal vault. Limited examination of the oropharynx does not reveal any evidence of any blood on the posterior pharyngeal wall. The hypopharynx is not able to be evaluated at the bedside at this time. The remainder of the head and neck exam is unremarkable. CHEST/CARDIOVASCULAR: Lung mckay are clear but lung sounds are distant. The patient is in regular sinus rhythm. S1 and S2 are present. ABDOMEN: There is no evidence of any masses or megaly or tenderness. Abdominal exam is limited. The remainder of physical exam is unremarkable. IMPRESSION: Suspected intermittent epistaxis. PLAN: Unfortunately, I am not able to do a thorough examination of the patient's hypopharynx or nasopharynx at the bedside.It is not possible to scope this patient or perform a indirect laryngoscopy at the bedside. However, a cursory examination does not reveal any evidence of any active bleeding, especially from the nose, despite the fact that the patient is on Coumadin. It is possible that the patient may be bleeding intermittently from the nose posteriorly. However, if this is the case, it seems to stop spontaneously. I would expect that if the patient was having significant nasal bleeding there would be some evidence of bleeding from the nostrils or blood in the mouth. I am not sure whether or not the patient might have had a traumatic intubation and this might be the source of the blood in the hypopharynx if the mucous membranes were traumatized/torn during the intubation process. I realize that you are trying to attempt to discover the source of this patient's anemia. The only way to completely evaluate this patient would be to take her to surgery and actually put her to sleep and at that time to do a thorough nasopharyngeal exam. However, I am not sure whether this is warranted in this particular case. I want to take this opportunity to thank you for allowing me to assist in the care of your patient. If I can be of any further assistance, please feel free to re-consult me or call my office. REDDY / NIMISHA: [id number] / MTDD
[2020-11-04] MEDS: SODIUM FERRIC GLUCONAT-SUCROSE 125 MG in SODIUM CHLORIDE 0.9% 100 ML IVPB SCH (09:34)
[2020-11-04 11:21] VITALS: BMI 34.0
[2020-11-04] MEDS ORDERED: WARFARIN 3 MG TAB PO ONE (18:00)
== END 2020-11-04 11:18 | DRG 393 ==
LOC: EC 03:52 → 1SOBS 04:00 → 3SCARD 05:54 → OBSVTOIN 10-19 08:58
PROVIDERS: ADMIT Family Medicine; ATTEND Family Medicine
PROC: 3E0G76Z Introduction of Nutritional Substance into Upper GI, Via Natural or Artificial Opening (ICD-10-PCS; 2020-10-20)
PROC: 0DH68UZ Insertion of Feeding Device into Stomach, Via Natural or Artificial Opening Endoscopic (ICD-10-PCS; principal; 2020-10-20 12:10)
PROC: 0DJD8ZZ Inspection of Lower Intestinal Tract, Via Natural or Artificial Opening Endoscopic (ICD-10-PCS; 2020-10-27)
PROC: 05HD33Z Insertion of Infusion Device into Right Cephalic Vein, Percutaneous Approach (ICD-10-PCS; 2020-11-01)
PROC: 0DJ08ZZ Inspection of Upper Intestinal Tract, Via Natural or Artificial Opening Endoscopic (ICD-10-PCS; 2020-11-02)
DX: K94.22 Gastrostomy infection (principal); E43 Unspecified severe protein-calorie malnutrition; J69.0 Pneumonitis due to inhalation of food and vomit; I69.354 Hemiplegia and hemiparesis following cerebral infarction affecting left non-dominant side; L03.311 Cellulitis of abdominal wall; J96.10 Chronic respiratory failure, unspecified whether with hypoxia or hypercapnia; J98.11 Atelectasis; I48.20 Chronic atrial fibrillation, unspecified; E87.2 Acidosis; J96.11 Chronic respiratory failure with hypoxia; N39.0 Urinary tract infection, site not specified; J90 Pleural effusion, not elsewhere classified; K92.1 Melena; R04.1 Hemorrhage from throat; I11.0 Hypertensive heart disease with heart failure; Z20.822 Contact with and (suspected) exposure to COVID-19; E11.9 Type 2 diabetes mellitus without complications; I48.0 Paroxysmal atrial fibrillation; J44.9 Chronic obstructive pulmonary disease, unspecified; B96.89 Other specified bacterial agents as the cause of diseases classified elsewhere; B37.2 Candidiasis of skin and nail; K94.23 Gastrostomy malfunction; B95.62 Methicillin resistant Staphylococcus aureus infection as the cause of diseases classified elsewhere; D50.9 Iron deficiency anemia, unspecified; R09.82 Postnasal drip; I50.9 Heart failure, unspecified; D53.9 Nutritional anemia, unspecified; I69.391 Dysphagia following cerebral infarction; E78.5 Hyperlipidemia, unspecified; J30.2 Other seasonal allergic rhinitis; R00.0 Tachycardia, unspecified; I05.0 Rheumatic mitral stenosis; F03.90 Unspecified dementia, unspecified severity, without behavioral disturbance, psychotic disturbance, mood disturbance, and anxiety; I27.20 Pulmonary hypertension, unspecified; I07.1 Rheumatic tricuspid insufficiency; Y95 Nosocomial condition; Z79.01 Long term (current) use of anticoagulants; Z68.30 Body mass index [BMI] 30.0-30.9, adult; Z79.4 Long term (current) use of insulin; Z79.82 Long term (current) use of aspirin; Z87.891 Personal history of nicotine dependence; Z86.14 Personal history of Methicillin resistant Staphylococcus aureus infection; Z79.2 Long term (current) use of antibiotics; Z79.899 Other long term (current) drug therapy; Z87.440 Personal history of urinary (tract) infections; Z85.3 Personal history of malignant neoplasm of breast; Z88.1 Allergy status to other antibiotic agents; Z90.710 Acquired absence of both cervix and uterus; Z95.0 Presence of cardiac pacemaker; Z95.2 Presence of prosthetic heart valve; Z96.1 Presence of intraocular lens; Z99.81 Dependence on supplemental oxygen
CPT/HCPCS: 36410; 43235; 43246; 45378; 71045; 71046; 74176; 76937; 80053; 80202; 81001; 82272; 82374; 82435; 82550; 82565; 82728; 82947; 83010; 83540; 83550; 83605; 83615; 83735; 84100; 84132; 84295; 84439; 84443; 84484; 84520; 85025; 85045; 85384; 85610; 85730; 86850; 86900; 86901; 86920; 87040; 87070; 87205; 87635; 93005; 94760; 99284

== ENCOUNTER 2020-11-09 18:37 | Inpatient (IN) | payer MEDICARE, OTHER ==
--- NOTE | 2020-11-09 19:29 | ED ---
General Adult HPI - General Chief complaint: Altered Mental Status Stated complaint: Altered Mental Status Time Seen by Provider: 11/09/20 19:00 Source: patient, EMS, RN notes reviewed, old records reviewed Mode of arrival: EMS Limitations: altered mental status, physical limitation - History of Present Illness Initial comments: Patient is a pleasant 75-year-old female presenting to the emergency department from nursing facility with concerns for tachycardia and possible dyspnea. Patient reported to them she did not feel well. At this time when questioned patient states she feels fine and has no complaints. Patient denies dyspnea. Patient denies palpitations or chest discomfort. There is not report of change in mental status on transfer sheet. Patient is oriented to self and place. - Related Data Home Medications Medication Instructions Recorded Confirmed Pravastatin Sodium [Pravachol] 40 mg PEG/G-TUBE HS@2100 05/20/17 11/09/20 levETIRAcetam [Keppra Oral 100 mg PEG/G-TUBE DAILY@0800 09/27/17 11/09/20 Solution] Aspirin 81 mg PEG/G-TUBE DAILY@0800 05/30/18 11/09/20 Acetaminophen Oral Susp [Tylenol] 640 mg PEG/G-TUBE Q6H PRN 12/25/19 11/09/20 Multivitamins, Thera Liquid 5 ml PEG/G-TUBE DAILY@1700 12/25/19 11/09/20 [Theragran Liquid (formulary)] bisacodyL [Dulcolax] 10 mg RECTAL DAILY PRN 12/25/19 11/09/20 Ipratropium-Albuterol Nebulize 3 ml INHALATION RT-QID PRN 06/11/20 11/09/20 [Duoneb 0.5 mg-3 mg/3 ml Soln] Na Phos,M-B/Na Phos,Di-Ba [Fleet 133 ml RECTAL DAILY PRN 06/11/20 11/09/20 Adult] Furosemide [Lasix] 40 mg PEG/G-TUBE BID@0800,1700 06/24/20 11/09/20 INSULIN ASPART (NovoLOG) [NovoLOG See Protocol SQ ACHS 06/24/20 11/09/20 (formulary)] metFORMIN HCL [Glucophage] 500 mg PEG/G-TUBE BID@0800,1700 06/24/20 11/09/20 Metoprolol Tartrate [Lopressor] 100 mg PEG/G-TUBE 07/15/20 11/09/20 TID@0600,1400,2200 Gabapentin [Neurontin] 100 mg PEG/G-TUBE 09/15/20 11/09/20 TID@0600,1400,2099 Liquacel 30 ml PEG/G-TUBE TID@0800,1400,17009/15/20 11/09/20 Simethicone 40 mg PEG/G-TUBE BID@0800,169909/15/20 11/09/20 Biotene Dry Mouth Mouthwash 5 ml MUCOUS MEM TID@0600,1400,209910/18/20 11/09/20 Cholestyramine/Aspartame 4 gm PEG/G-TUBE HS@229910/18/20 11/09/20 [Cholestyramine Light Packet] Diltiazem Oral [Cardizem*] 60 mg PEG/G-TUBE TID@0600,1400,209910/18/20 11/09/20 Ferrous Sulfate 330 mg PEG/G-TUBE DAILY@169910/18/20 11/09/20 Insulin Detemir (Levemir) [Levemir] 40 unit SQ HS@209910/18/20 11/09/20 Magnesium Hydroxide [Milk of 7,200 mg PEG/G-TUBE DAILY PRN 10/18/20 11/09/20 Magnesia Concentrate] Nitroglycerin Sl Tabs [Nitrostat] 0.4 mg SL Q5M PRN 10/18/20 11/09/20 Voriconazole [Vfend] 300 mg PO BID@0800,209911/09/20 11/09/20 Warfarin [Coumadin] 2 mg PO DAILY@209911/09/20 11/09/20 Previous Rx's Medication Instructions Recorded Loratadine [Claritin] 10 mg PEG/G-TUBE DAILY@1699 tab 06/14/20 Allergies Allergy/AdvReac Type Severity Reaction Status Date / Time ciprofloxacin [From Cipro] Allergy Rash/Hives Verified 11/09/20 20:09 ciprofloxacin HCl Allergy Rash/Hives Verified 11/09/20 20:09 [From Cipro] Quinolones Allergy Unknown Verified 11/09/20 20:09 Review of Systems ROS Statement: Those systems with pertinent positive or pertinent negative responses have been documented in the HPI. ROS Other: All systems not noted in ROS Statement are negative. Constitutional: Denies: fever Eyes: Denies: eye pain ENT: Denies: ear pain Respiratory: Reports: as per HPI Cardiovascular: Reports: as per HPI Endocrine: Denies: fatigue Gastrointestinal: Denies: abdominal pain Genitourinary: Denies: dysuria Musculoskeletal: Denies: back pain Skin: Denies: rash Neurological: Denies: headache Past Medical History Past Medical History: Atrial Fibrillation, Atrial Flutter, Asthma, Cancer, Heart Failure, CVA/TIA, Dementia, Diabetes Mellitus, GERD/Reflux, GI Bleed, Hyperlipidemia, Hypertension, Pneumonia, Sleep Apnea/CPAP/BIPAP Additional Past Medical History / Comment(s): [facility]t son Jose Rafael being unsure of history. Jose Rafael states he is also pt's DPOA. 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, post traumatic seizures, History of Any Multi-Drug Resistant Organisms: MRSA Date of last positivie culture/infection: 08/21/20 MDRO Source:: MRSA URINE Past Surgical History: Breast Surgery, Cardiac Valve Replacement, Heart Ca theterization With Stent, Hysterectomy, Orthopedic Surgery, Pacemaker, Tonsillectomy Additional Past Surgical History / Comment(s): Peg tube, mechanical mitral valve 2000, polypectomy spinal cord/cyst removed, TEEs, CVNs, colonoscopies, bilateral cataract removal/lens implants, L rotator cuff repair, R femur fracture with IM hip/screw/nail, L breast lumpectomy, Past Anesthesia/Blood Transfusion Reactions: No Reported Reaction Date of Last Stent Placement:: 2006 Type of Cardiac Device: Permanent Pacemaker Device Placement Date:: 2009 Past Psychological History: Depression Smoking Status: Unknown if ever smoked Past Alcohol Use History: Unable to Obtain Past Drug Use History: Unable to Obtain - Past Family History Father Family Medical History: GI Bleed Additional Family Medical History / Comment(s): OF BLEEDING ULCER AT AGE 64 Mother Family Medical History: Cancer, CVA/TIA Additional Family Medical History / Comment(s): HX STROKES, COLON CANCER General Exam Limitations: altered mental status, physical limitation General appearance: alert, in no apparent distress, other (Mild anasarca) Head exam: Present: atraumatic Eye exam: Present: normal appearance ENT exam: Present: normal oropharynx Neck exam: Present: normal inspection Respiratory exam: Present: decreased breath sounds (Bilateral bases) Cardiovascular Exam: Present: tachycardia GI/Abdominal exam: Present: soft. Absent: tenderness Extremities exam: Present: normal inspection. Absent: calf tenderness Neurological exam: Present: alert Expanded Neurological exam: Present: protecting the airway Patient oriented to: Present: person, place. Absent: time Motor strength exam: RUE: 3, LUE: 3, RLE: 2/1, LLE: 2/1 Psychiatric exam: Present: normal affect, normal mood Skin exam: Present: normal color Course Vital Signs 11/09/20 18:50 Temperature 97.7 F Pulse Rate 113 H Respiratory 16 Rate Blood Pressure 130/80 O2 Sat by Pulse 98 Oximetry EKG Findings - EKG Comments: EKG Findings:: Paced rhythm with rate of 113. QRS 148. QT 392. QTC 537. Wide-complex QRS. Nonspecific ST-T. Medical Decision Making - Medical Decision Making Patient reevaluated. Case discussed with Dr. Gomez, who will admit his patient. He does request cardiology consult. - Lab Data Result diagrams: 11/09/20 19:37 11/09/20 19:37 Lab Results 11/09/20 11/09/20 11/09/20 Range/Units 19:37 19:37 19:37 WBC 9.8 (3.8-10.6) k/uL RBC 3.27 L (3.80-5.40) m/uL Hgb 9.3 L (11.4-16.0) gm/dL Hct 30.8 L (34.0-46.0) % MCV 94.2 (80.0-100.0) fL MCH 28.4 (25.0-35.0) pg MCHC 30.2 L (31.0-37.0) g/dL RDW 21.3 H (11.5-15.5) % Plt Count 494 H (150-450) k/uL MPV 8.8 Neutrophils % 81 % Lymphocytes % 12 % Monocytes % 4 % Eosinophils % 2 % Basophils % 0 % Neutrophils # 7.9 H (1.3-7.7) k/uL Lymphocytes # 1.2 (1.0-4.8) k/uL Monocytes # 0.4 (0-1.0) k/uL Eosinophils # 0.2 (0-0.7) k/uL Basophils # 0.0 (0-0.2) k/uL Hypochromasia Marked Poikilocytosis Moderate Anisocytosis Moderate Macrocytosis Slight PT 13.0 H (9.0-12.0) sec INR 1.3 H (<1.2) APTT 26.8 (22.0-30.0) sec Sodium 139 (137-145) mmol/L Potassium 4.5 (3.5-5.1) mmol/L Chloride 100 (98-107) mmol/L Carbon Dioxide 32 H (22-30) mmol/L Anion Gap 7 mmol/L BUN 34 H (7-17) mg/dL Creatinine 0.40 L (0.52-1.04) mg/dL Est GFR (CKD-EPI)AfAm >90 (>60 ml/min/1.73 sqM) Est GFR (CKD-EPI)NonAf >90 (>60 ml/min/1.73 sqM) Glucose 225 H (74-99) mg/dL Calcium 9.3 (8.4-10.2) mg/dL Total Bilirubin 0.4 (0.2-1.3) mg/dL AST 48 H (14-36) U/L ALT 32 (4-34) U/L Alkaline Phosphatase 150 H (38-126) U/L Troponin I (0.000-0.034) ng/mL NT-Pro-B Natriuret Pep pg/mL Total Protein 6.6 (6.3-8.2) g/dL Albumin 3.1 L (3.5-5.0) g/dL Urine Color Urine Appearance (Clear) Urine pH (5.0-8.0) Ur Specific [place] (1.001-1.035) Urine Protein (Negative) Urine Glucose (UA) (Negative) Urine Ketones (Negative) Urine Blood (Negative) Urine Nitrite (Negative) Urine Bilirubin (Negative) Urine Urobilinogen (<2.0) mg/dL Ur Leukocyte Esterase (Negative) Urine RBC (0-5) /hpf Urine WBC (0-5) /hpf Ur Squamous Epith Cells (0-4) /hpf Urine Bacteria (None) /hpf Urine Mucus (None) /hpf 11/09/20 11/09/20 11/09/20 Range/Units 19:37 19:37 20:17 WBC (3.8-10.6) k/uL RBC (3.80-5.40) m/uL Hgb (11.4-16.0) gm/dL Hct (34.0-46.0) % MCV (80.0-100.0) fL MCH (25.0-35.0) pg MCHC (31.0-37.0) g/dL RDW (11.5-15.5) % Plt Count (150-450) k/uL MPV Neutrophils % % Lymphocytes % % Monocytes % % Eosinophils % % Basophils % % Neutrophils # (1.3-7.7) k/uL Lymphocytes # (1.0-4.8) k/uL Monocytes # (0-1.0) k/uL Eosinophils # (0-0.7) k/uL Basophils # (0-0.2) k/uL Hypochromasia Poikilocytosis Anisocytosis Macrocytosis PT (9.0-12.0) sec INR (<1.2) APTT (22.0-30.0) sec Sodium (137-145) mmol/L Potassium (3.5-5.1) mmol/L Chloride (98-107) mmol/L Carbon Dioxide (22-30) mmol/L Anion Gap mmol/L BUN (7-17) mg/dL Creatinine (0.52-1.04) mg/dL Est GFR (CKD-EPI)AfAm (>60 ml/min/1.73 sqM) Est GFR (CKD-EPI)NonAf (>60 ml/min/1.73 sqM) Glucose (74-99) mg/dL Calcium (8.4-10.2) mg/dL Total Bilirubin (0.2-1.3) mg/dL AST (14-36) U/L ALT (4-34) U/L Alkaline Phosphatase (38-126) U/L Troponin I 0.019 (0.000-0.034) ng/mL NT-Pro-B Natriuret Pep 2690 pg/mL Total Protein (6.3-8.2) g/dL Albumin (3.5-5.0) g/dL Urine Color Yellow Urine Appearance Clear (Clear) Urine pH 5.0 (5.0-8.0) Ur Specific [place] 1.019 (1.001-1.035) Urine Protein Trace H (Negative) Urine Glucose (UA) Negative (Negative) Urine Ketones Negative (Negative) Urine Blood Moderate H (Negative) Urine Nitrite Negative (Negative) Urine Bilirubin Negative (Negative) Urine Urobilinogen <2.0 (<2.0) mg/dL Ur Leukocyte Esterase Negative (Negative) Urine RBC 34 H (0-5) /hpf Urine WBC 2 (0-5) /hpf Ur Squamous Epith Cells <1 (0-4) /hpf Urine Bacteria Rare H (None) /hpf Urine Mucus Rare H (None) /hpf - Radiology Data Radiology results: report reviewed (Computed tomography scan the brain shows old bilateral cerebral infarcts. No change from prior.), image reviewed (X-ray shows pulmonary edema) Disposition Clinical Impression: CHF (congestive heart failure) Disposition: ADMITTED IP TO THIS HOSP Is patient prescribed a controlled substance at d/c from ED?: No Referrals: Luis A Gomez MD [Primary Care Provider] - 1-2 days Decision Time: 21:23
--- NOTE | 2020-11-09 20:14 | XR ---
EXAMINATION TYPE: XR chest 1V portable DATE OF EXAM: 11/09/2020 COMPARISON: 11/02/2020 HISTORY: Altered mental status TECHNIQUE: Single view FINDINGS: Heart is enlarged. There is pulmonary vascular congestion. There is some pulmonary intersti tial edema. There is right axillary pacemaker. There are sternal wires. IMPRESSION: There is some pulmonary interstitial edema that could be congestive heart failure. This a ppears increased compared to last exam.
[2020-11-09 20:30] LABS: ALT 32 U/L (4-34); AST 48 U/L (14-36); African American GFR (CKD) >90 (>60 ml/min/1.73 sqM); Albumin 3.1 g/dL (3.5-5.0); Alkaline Phosphatase 150 U/L (38-126); Anion Gap 7 mmol/L; Blood Urea Nitrogen 34 mg/dL (7-17); Calcium 9.3 mg/dL (8.4-10.2); Carbon Dioxide 32 mmol/L (22-30); Chloride 100 mmol/L (98-107); Glucose 225 mg/dL (74-99); Non-African American GFR(CKD) >90 (>60 ml/min/1.73 sqM); Potassium 4.5 mmol/L (3.5-5.1); Sodium 139 mmol/L (137-145); Total Bilirubin 0.4 mg/dL (0.2-1.3); Total Protein 6.6 g/dL (6.3-8.2)
[2020-11-09 20:31] LABS: HCT 30.8 % (34.0-46.0); HGB 9.3 gm/dL (11.4-16.0); MCH 28.4 pg (25.0-35.0); MCHC 30.2 g/dL (31.0-37.0); MCV 94.2 fL (80.0-100.0); RBC 3.27 m/uL (3.80-5.40); RDW 21.3 % (11.5-15.5); WBC 9.8 k/uL (3.8-10.6)
[2020-11-09 20:32] LABS: Anisocytosis Moderate; Basophils % (A) 0 %; Eosinophils # (A) 0.2 k/uL (0-0.7); Eosinophils % (A) 2 %; Hypochromasia Marked; Lymphocytes # (A) 1.2 k/uL (1.0-4.8); Lymphocytes % (A) 12 %; Macrocytosis Slight; Mean Platelet Volume 8.8; Monocytes # (A) 0.4 k/uL (0-1.0); Monocytes % (A) 4 %; Neutrophils # (A) 7.9 k/uL (1.3-7.7); Neutrophils % (A) 81 %; Platelet Count 494 k/uL (150-450); Poikilocytosis Moderate
[2020-11-09 20:34] LABS: Appearance,Urine Clear (Clear); Bacteria,Urine Rare /hpf; Bilirubin,Urine Negative (Negative); Blood,Urine Moderate (Negative); Color,Urine Yellow; Glucose,Urine (UA) Negative (Negative); Ketones,Urine Negative (Negative); Leukocyte Esterase,Urine Negative (Negative); Mucus,Urine Rare /hpf; Nitrite,Urine Negative (Negative); Protein,Urine Trace (Negative); RBC,Urine 34 /hpf (0-5); Specific Gravity,Urine 1.019 (1.001-1.035); Squamous Epithelial Cell,Urine <1 /hpf (0-4); Urobilinogen,Urine <2.0 mg/dL (<2.0); WBC,Urine 2 /hpf (0-5)
[2020-11-09 20:39] LABS: INR 1.3 (<1.2); Partial Thromboplastin Time 26.8 sec (22.0-30.0)
--- NOTE | 2020-11-09 20:40 | CT ---
EXAMINATION TYPE: CT brain wo con DATE OF EXAM: 11/09/2020 COMPARISON: None HISTORY: AMS CT DLP: 1217.4 mGycm Automated exposure control for dose reduction was used. There is cerebral atrophy. There is no mass effect nor midline shift. There is no sign of intracrania l hemorrhage. There is extensive hypodensity in the right cerebral hemisphere in the paiz and white m atter consistent with right middle cerebral artery old hemisphere infarct. There is similar hypodensi ty in the left occipital lobe consistent with old infarct. There is no evidence of intracranial hemor rhage. Calvarium is intact. IMPRESSION: Old bilateral cerebral infarcts. No change compared to old exam.
[2020-11-09] MEDS ORDERED: ASPIRIN 325 MG TAB PO STA (21:24)
[2020-11-09] MEDS: FUROSEMIDE 10 MG/ML 4 ML VIAL IV SCH (22:11)
[2020-11-09] MEDS: NITROGLYCERIN OINT 1 INCH/GM PACKET TOPICAL SCH (22:13)
[2020-11-10] MEDS ORDERED: MAGNESIUM HYDROXIDE 2,400 MG/10 ML CUP PEG/G-TUBE PRN (01:05)
[2020-11-10] MEDS ORDERED: ACETAMINOPHEN ORAL SUSP 160 MG/5 ML CUP PEG/G-TUBE PRN (01:05)
[2020-11-10] MEDS: DILTIAZEM ORAL 60 MG TAB PEG/G-TUBE SCH ×3 (05:46→20:47)
[2020-11-10] MEDS: METOPROLOL TARTRATE 50 MG TAB PEG/G-TUBE SCH ×3 (05:47→20:47)
[2020-11-10] MEDS: GABAPENTIN 100 MG CAP PEG/G-TUBE SCH ×3 (05:47→20:47)
[2020-11-10] MEDS: FUROSEMIDE 10 MG/ML 4 ML VIAL IV SCH ×3 (05:47→20:47)
[2020-11-10] MEDS: DRY MOUTH SPRAY 44.3 SPRAY/44.3 ML SPRAY MUCOUS MEM SCH ×3 (06:13→20:47)
[2020-11-10] MEDS ORDERED: NON FORMULARY DRUG (Liquacel 30 ML) PEG/G-TUBE SCH (08:00)
[2020-11-10] MEDS ORDERED: IPRATROPIUM-ALBUTEROL 3 ML NEB INHALATION PRN (08:00)
[2020-11-10] MEDS ORDERED: FUROSEMIDE 40 MG TAB PEG/G-TUBE SCH (08:00)
[2020-11-10] MEDS: NITROGLYCERIN OINT 1 INCH/GM PACKET TOPICAL SCH (08:46)
[2020-11-10] MEDS: metFORMIN 500 MG TAB PEG/G-TUBE SCH ×2 (08:46→16:23)
[2020-11-10] MEDS: ASPIRIN 81 MG PEG/G-TUBE SCH (08:46)
[2020-11-10] MEDS: FERROUS SULFATE ORAL ELIXIR 300 MG/5 ML CUP PEG/G-TUBE SCH ×2 (08:51→16:40)
[2020-11-10] MEDS: levETIRAcetam ORAL SOLN 500 MG/5 ML CUP PEG/G-TUBE SCH (08:52)
[2020-11-10] MEDS: VORICONAZOLE 200 MG TAB PO SCH ×2 (08:52→20:48)
[2020-11-10] MEDS ORDERED: ASPIRIN 325 MG TAB PO SCH (09:00)
[2020-11-10] MEDS ORDERED: NA PHOS,M-B/NA PHOS,DI-BA 133 ML ENEMA RECTAL PRN (09:00)
[2020-11-10] MEDS ORDERED: bisacodyL 10 MG SUPP RECTAL PRN (09:00)
[2020-11-10] MEDS ORDERED: DIGOXIN 250 MCG/ML 2 ML AMP IVP ONE (09:43)
[2020-11-10] MEDS: SIMETHICONE 40 MG/0.6 ML DROPS 2,000 MG/30 ML BOTTLE PEG/G-TUBE SCH ×2 (09:50→16:40)
[2020-11-10] MEDS: ENOXAPARIN 100 MG/ML SYRINGE SQ SCH ×2 (09:59→20:47)
--- NOTE | 2020-11-10 11:35 | P.CRDCN ---
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 She does not follow regularly in the office with a it specialist since 2018. She was just discharged back to the hospital after undergoing repeat PEG tube placement complicated by respiratory failure.. We have been asked to see in consultation for heart failure. Is sent back from [facility] secondary to cough and shortness of breath. She is seen and examined sitting up in no acute distress. She is coughing but not bringing up any significant phlegm. She complains of feeling short of breath. She has no chest pain dizziness or palpitations. She is currently in atrial fibrillation with mildly rapid ventricular rates. EKG on arrival reveals ventricular pacing heart rate of 113. Chest x-ray reveals pulmonary interstitial edema. Laboratory data reviewed, WBC 9.8, hemoglobin 9.3, platelets 494, sodium 139, potassium 4.5, creatinine 0.4, INR 1.3, troponin negative 1 and an T proBNP 2690. Current daily cardiac medications include warfarin 2 mg daily, Lopressor 100 mg 3 times a day, diltiazem 60 mg 3 times a day, pravastatin 40 mg daily and aspirin 81 mg daily. Most recent echocardiogram obtained in June 2020 revealed preserved LV systolic function with ejection fraction 55-60%, mechanical mitral valve is well seated with mild regurgitation noted, mild pulmonary hypertension with RVSP of 37 mmHg. REVIEW OF SYSTEMS At the time of my exam: CONSTITUTIONAL: Denies fever or chills. CARDIOVASCULAR: Denies chest pain, orthopnea, PND or palpitations. RESPIRATORY: Complains of cough and shortness of breath. GASTROINTESTINAL: Denies abdominal pain, diarrhea, constipation, nausea or vomiting. MUSCULOSKELETAL: Denies myalgias. NEUROLOGIC: Denies numbness, tingling, headache or weakness. ENDOCRINE: Denies fatigue, weight change, polydipsia or polyurina. GENITOURINARY: Denies burning, hematuria or urgency with micturation. HEMATOLOGIC: Denies history of anemia or bleeding. PHYSICAL EXAMINATION Blood pressure 116/66 heart rate 115 afebrile and maintaining oxygen saturation on nasal cannula. CONSTITUTIONAL: No apparent distress. HEENT: Head is normocephalic. Pupils are equal, round. Sclerae anicteric. Mucous membranes of the mouth are moist. No JVD. No carotid bruit. CHEST EXAMINATION: Scattered rhonchi and basilar rales. No chest wall tenderness is noted on palpation or with deep breathing. HEART EXAMINATION: Irregular rate and rhythm. S1, S2 heard. Mechanical click at the apex, systolic ejection murmur noted, no gallops or rub. ABDOMEN: Soft, nontender. EXTREMITIES: 2+ peripheral pulses, bilateral lower extremity nonpitting edema and no calf tenderness. NEUROLOGIC EXAMINATION: Patient is awake, alert and oriented. ASSESSMENT Acute on chronic diastolic heart failure Paroxysmal atrial fibrillation with rapid ventricular rate Subtherapeutic INR Mechanical mitral valve replacement Hypertension Sick sinus syndrome status post permanent pacemaker implantation History of CVA Chronic hypoxic respiratory failure PLAN Continue IV diuretics. Initiate Lovenox 100 mg subcu twice a day for INR bridging, therapeutic INR of 2.5-3.5 secondary to mechanical mitral valve. Give Coumadin 5 mg now. Repeat daily PT/INR. Follow renal function and electrolytes daily. Document accurate intake and output along with daily weights. Initiate digoxin 250 g now and then 125 g daily thereafter. Further recommendations to follow based upon clinical course. Thank you kindly for this consultation. Nurse Practitioner note has been reviewed, I agree with a documented findings and plan of care. Patient was seen and examined. Past Medical History Past Medical History: Atrial Fibrillation, Atrial Flutter, Asthma, Cancer, Heart Failure, CVA/TIA, Dementia, Diabetes Mellitus, GERD/Reflux, GI Bleed, Hyperlipidemia, Hypertension, Pneumonia, Sleep Apnea/CPAP/BIPAP Additional Past Medical History / Comment(s): Verified with Rule. papers r/t son Jose Rafael being unsure of history. Jose Rafael states he is also pt's DPOA. 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, post traumatic seizures, History of Any Multi-Drug Resistant Organisms: MRSA Date of last positivie culture/infection: 08/21/20 MDRO Source:: MRSA URINE Past Surgical History: Breast Surgery, Cardiac Valve Replacement, Heart Catheterization With Stent, Hysterectomy, Orthopedic Surgery, Pacemaker, Tonsillectomy Additional Past Surgical History / Comment(s): Peg tube, mechanical mitral valve 2000, polypectomy spinal cord/cyst removed, TEEs, CVNs, colonoscopies, bilateral cataract removal/lens implants, L rotator cuff repair, R femur fracture with IM hip/screw/nail, L breast lumpectomy, Past Anesthesia/Blood Transfusion Reactions: No Reported Reaction Date of Last Stent Placement:: 2006 Type of Cardiac Device: Permanent Pacemaker Device Placement Date:: 2009 Past Psychological History: Depression Smoking Status: Unknown if ever smoked Past Alcohol Use History: Unable to Obtain Past Drug Use History: Unable to Obtain - Past Family History Father Family Medical History: GI Bleed Additional Family Medical History / Comment(s): OF BLEEDING ULCER AT AGE 64 Mother Family Medical History: Cancer, CVA/TIA Additional Family Medical History / Comment(s): HX STROKES, COLON CANCER Medications and Allergies Home Medications Medication Instructions Recorded Confirmed Type Pravastatin Sodium [Pravachol] 40 mg PEG/G-TUBE HS@2100 05/20/17 11/09/20 History levETIRAcetam [Keppra Oral 100 mg PEG/G-TUBE DAILY@0800 09/27/17 11/09/20 History Solution] Aspirin 81 mg PEG/G-TUBE DAILY@0800 0411/09/20 History Acetaminophen Oral Susp [Tylenol] 640 mg PEG/G-TUBE Q6H PRN 12/25/19 11/09/20 History Multivitamins, Thera Liquid 5 ml PEG/G-TUBE DAILY@1700 12/25/19 11/09/20 History [Theragran Liquid (formulary)] bisacodyL [Dulcolax] 10 mg RECTAL DAILY PRN 12/25/19 11/09/20 History Ipratropium-Albuterol Nebulize 3 ml INHALATION RT-QID PRN 06/11/20 11/09/20 History [Duoneb 0.5 mg-3 mg/3 ml Soln] Na Phos,M-B/Na Phos,Di-Ba [Fleet 133 ml RECTAL DAILY PRN 06/11/20 11/09/20 History Adult] Loratadine [Claritin] 10 mg PEG/G-TUBE DAILY@1700 tab 06/14/20 11/09/20 Rx Furosemide [Lasix] 40 mg PEG/G-TUBE BID@0800,1700 06/24/20 11/09/20 History INSULIN ASPART (NovoLOG) [NovoLOG See Protocol SQ ACHS 06/24/20 11/09/20 History (formulary)] metFORMIN HCL [Glucophage] 500 mg PEG/G-TUBE BID@0800,1700 06/24/20 11/09/20 History Metoprolol Tartrate [Lopressor] 100 mg PEG/G-TUBE 07/15/20 11/09/20 History TID@0600,1400,2200 Gabapentin [Neurontin] 100 mg PEG/G-TUBE 09/15/20 11/09/20 History TID@0600,1400,2100 Liquacel 30 ml PEG/G-TUBE TID@0800,1400,17009/15/20 11/09/20 History Simethicone 40 mg PEG/G-TUBE BID@0800,1700 09/15/20 11/09/20 History Biotene Dry Mouth Mouthwash 5 ml MUCOUS MEM TID@0600,1400,209910/18/20 11/09/20 History Cholestyramine/Aspartame 4 gm PEG/G-TUBE HS@2300 10/18/20 11/09/20 History [Cholestyramine Light Packet] Diltiazem Oral [Cardizem*] 60 mg PEG/G-TUBE TID@0600,1400,209910/18/20 11/09/20 History Ferrous Sulfate 330 mg PEG/G-TUBE DAILY@1700 10/18/20 11/09/20 History Insulin Detemir (Levemir) [Levemir] 40 unit SQ HS@209910/18/20 11/09/20 History Magnesium Hydroxide [Milk of 7,200 mg PEG/G-TUBE DAILY PRN 10/18/20 11/09/20 History Magnesia Concentrate] Nitroglycerin Sl Tabs [Nitrostat] 0.4 mg SL Q5M PRN 10/18/20 11/09/20 History Voriconazole [Vfend] 300 mg PO BID@0800,209911/09/20 11/09/20 History Warfarin [Coumadin] 2 mg PO DAILY@2100 11/09/20 11/09/20 History Allergies Allergy/AdvReac Type Severity Reaction Status Date / Time ciprofloxacin [From Cipro] Allergy Rash/Hives Verified 11/09/20 20:09 ciprofloxacin HCl Allergy Rash/Hives Verified 11/09/20 20:09 [From Cipro] Quinolones Allergy Unknown Verified 11/09/20 20:09 Physical Exam Vitals: Vital Signs Temp Pulse Resp BP Pulse Ox 11/10/20 11:07 98.7 F 115 H 20 116/66 97 11/10/20 10:00 113 H 18 113/70 97 11/10/20 09:08 99.0 F 112 H 16 113/70 97 11/10/20 07:25 97 11/10/20 05:43 98.3 F 109 H 20 138/92 96 11/10/20 04:00 112 H 18 134/82 11/10/20 01:36 117 H 18 133/77 11/10/20 00:00 115 H 18 11/09/20 22:23 114 H 16 147/93 98 11/09/20 18:50 97.7 F 113 H 16 130/80 98 Intake and Output 11/09/20 11/10/20 11/10/20 22:59 06:59 14:59 Other: Weight 97.522 kg Results 11/09/20 19:37 11/09/20 19:37 Cardiac Enzymes 11/09/20 11/09/20 Range/Units 19:37 19:37 AST 48 H (14-36) U/L Troponin I 0.019 (0.000-0.034) ng/mL Coagulation 11/09/20 Range/Units 19:37 PT 13.0 H (9.0-12.0) sec APTT 26.8 (22.0-30.0) sec CBC 11/09/20 Range/Units 19:37 WBC 9.8 (3.8-10.6) k/uL RBC 3.27 L (3.80-5.40) m/uL Hgb 9.3 L (11.4-16.0) gm/dL Hct 30.8 L (34.0-46.0) % Plt Count 494 H (150-450) k/uL Comprehensive Metabolic Panel 11/09/20 Range/Units 19:37 Sodium 139 (137-145) mmol/L Potassium 4.5 (3.5-5.1) mmol/L Chloride 100 (98-107) mmol/L Carbon Dioxide 32 H (22-30) mmol/L BUN 34 H (7-17) mg/dL Creatinine 0.40 L (0.52-1.04) mg/dL Glucose 225 H (74-99) mg/dL Calcium 9.3 (8.4-10.2) mg/dL AST 48 H (14-36) U/L ALT 32 (4-34) U/L Alkaline Phosphatase 150 H (38-126) U/L Total Protein 6.6 (6.3-8.2) g/dL Albumin 3.1 L (3.5-5.0) g/dL Current Medications Generic Name Dose Route Start Last Admin Trade Name Freq PRN Reason Stop Dose Admin Acetaminophen 640 mg 11/10/20 01:05 11/10/20 08:59 Acetaminophen Oral Susp 160 Mg/5 Ml Cup PEG/G-TUBE 640 mg Q6H PRN Administration Pain Albuterol/Ipratropium 3 ml 11/10/20 08:00 Ipratropium-Albuterol 3 Ml Neb INHALATION RT-QID PRN Shortness Of Breath Aspirin 81 mg 11/10/20 08:00 11/10/20 08:46 Aspirin 81 Mg PEG/G-TUBE 81 mg DAILY@0800 [facility] Administration Bisacodyl 10 mg 11/10/20 09:00 Bisacodyl 10 Mg Supp RECTAL DAILY PRN Constipation Cholestyramine Resin 4 gm 11/10/20 23:00 Cholestyramine (With Sugar) 4 Gm Packet PEG/G-TUBE HS@2300 [facility] Digoxin 125 mcg 11/11/20 09:00 Digoxin 250 Mcg/Ml 2 Ml Amp IVP DAILY [facility] Diltiazem HCl 60 mg 11/10/20 06:00 11/10/20 05:46 Diltiazem Oral 60 Mg Tab PEG/G-TUBE 60 mg TID@0600,1400,2100 [facility] Administration Enoxaparin Sodium 100 mg 11/10/20 09:00 11/10/20 09:59 Enoxaparin 100 Mg/Ml Syringe SQ 100 mg Q12HR [facility] Administration Ferrous Sulfate 300 mg 11/10/20 17:00 Ferrous Sulfate Oral Elixir 300 Mg/5 Ml Cup PEG/G-TUBE DAILY@1700 [facility] Furosemide 40 mg 11/09/20 21:30 11/10/20 05:47 Furosemide 10 Mg/Ml 4 Ml Vial IV 40 mg Q8H JM Administration Gabapentin 100 mg 11/10/20 06:00 11/10/20 05:47 Gabapentin 100 Mg Cap PEG/G-TUBE 100 mg TID@0600,1400,2100 [facility] Administration Insulin Detemir 40 unit 11/10/20 21:00 Insulin Detemir (Levemir) 100 Unit/Ml Syr SQ HS@2100 [facility] Iron/Minerals/Multivitamins 5 ml 11/10/20 17:00 Multivitamins, Thera Liquid 237 Ml Bottle PEG/G-TUBE DAILY@1700 [facility] Levetiracetam 100 mg 11/10/20 08:00 11/10/20 08:52 Levetiracetam Oral Soln 500 Mg/5 Ml Cup PEG/G-TUBE 100 mg DAILY@0800 [facility] Administration Loratadine 10 mg 11/10/20 17:00 Loratadine 10 Mg Tab PEG/G-TUBE DAILY@1700 [facility] Magnesium Hydroxide 2,400 mg 11/10/20 01:05 Magnesium Hydroxide 2,400 Mg/10 Ml Cup PEG/G-TUBE DAILY PRN Constipation Metformin HCl 500 mg 11/10/20 08:00 11/10/20 08:46 Metformin 500 Mg Tab PEG/G-TUBE 500 mg BID@0800,1700 [facility] Administration Metoprolol Tartrate 100 mg 11/10/20 06:00 11/10/20 05:47 Metoprolol Tartrate 50 Mg Tab PEG/G-TUBE 100 mg TID@0600,1400,2200 [facility] Administration Miscellaneous Information 0 each 11/10/20 11:19 Warfarin Per Pharmacy MISCELLANE DIRECTED PRN PHARMACY DOSING PROTOCOL Pravastatin Sodium 40 mg 11/10/20 21:00 Pravastatin Sodium 40 Mg Tab PO HS@2100 [facility] Saliva Substitute 2 spray 11/10/20 06:00 11/10/20 06:13 Dry Mouth [place]ard 44.3 Arnegard/44.3 Ml [place]ard MUCOUS MEM 2 spray TID@0600,1400,2100 [facility] Administration Simethicone 40 mg 11/10/20 08:00 11/10/20 09:50 Simethicone 40 Mg/0.6 Ml Drops 2,000 Mg/30 Ml Bottle PEG/G-TUBE 40 mg BID@0800,1700 JM Administration Sodium Biphosphate/Sodium Phosphate 133 ml 11/10/20 09:00 Na Phos,M-B/Na Phos,Di-Ba 133 Ml Enema RECTAL DAILY PRN Constipation Voriconazole 300 mg 11/10/20 08:00 11/10/20 08:52 Voriconazole 200 Mg Tab PO 300 mg BID@0800,2100 JM Administration Warfarin Sodium 5 mg 11/10/20 09:45 Warfarin 2 Mg Tab PO DAILY [facility] Protocol Intake and Output 11/09/20 11/10/20 11/10/20 22:59 06:59 14:59 Other: Weight 97.522 kg 11/09/20 19:37 11/09/20 19:37
[2020-11-10 12:40] LABS: INR 1.1 (<1.2)
[2020-11-10] MEDS: LORATADINE 10 MG TAB PEG/G-TUBE SCH (16:40)
[2020-11-10] MEDS: MULTIVITAMINS, THERA LIQUID 237 ML BOTTLE PEG/G-TUBE SCH (16:41)
[2020-11-10 17:00] LABS: Glucose,Whole Blood 236 mg/dL (75-99)
[2020-11-10] MEDS ORDERED: INSULIN ASPART (NovoLOG) 100 UNIT/ML VIAL SQ SCH (17:30)
[2020-11-10] MEDS ORDERED: WARFARIN 5 MG TAB PO ONE (18:00)
[2020-11-10] MEDS: PRAVASTATIN SODIUM 40 MG TAB PO SCH (20:47)
[2020-11-10] MEDS: INSULIN DETEMIR (LEVEMIR) 100 UNIT/ML SYR SQ SCH (20:48)
[2020-11-10] MEDS ORDERED: WARFARIN 2 MG TAB PO SCH (21:00)
[2020-11-10 23:34] LABS: Anisocytosis Moderate; HCT 34.2 % (34.0-46.0); HGB 9.4 gm/dL (11.4-16.0); Hypochromasia Marked; MCH 28.5 pg (25.0-35.0); MCHC 27.3 g/dL (31.0-37.0); Macrocytosis Marked; Mean Platelet Volume 10.5; Platelet Count 385 k/uL (150-450); Poikilocytosis Slight; RBC 3.29 m/uL (3.80-5.40); RDW 21.3 % (11.5-15.5); WBC 10.5 k/uL (3.8-10.6)
[2020-11-10 23:43] LABS: ALT 57 U/L (4-34); AST 104 U/L (14-36); African American GFR (CKD) >90 (>60 ml/min/1.73 sqM); Alkaline Phosphatase 157 U/L (38-126); Anion Gap 8 mmol/L; Blood Urea Nitrogen 32 mg/dL (7-17); Calcium 9.1 mg/dL (8.4-10.2); Carbon Dioxide 27 mmol/L (22-30); Chloride 104 mmol/L (98-107); Glucose 239 mg/dL (74-99); Non-African American GFR(CKD) >90 (>60 ml/min/1.73 sqM); Potassium 4.5 mmol/L (3.5-5.1); Sodium 139 mmol/L (137-145); Total Bilirubin 0.5 mg/dL (0.2-1.3); Total Protein 6.3 g/dL (6.3-8.2)
--- NOTE | 2020-11-10 23:44 | HP ---
HISTORY AND PHYSICAL 75-year-old white female, history of paroxysmal atrial fibrillation. Rheumatic mitral stenosis, mechanical valve replaced in 2000, hypertension, atrial fibrillation, sick sinus syndrome, permanent pacemaker. Left-sided paralysis due to dysphagia secondary to CVA, status post PEG tube placement, recent PEG tube infection and PEG tube change sent back to the hospital due to fluid overload and respiratory failure with atrial fibrillation rapid ventricular response. lives at [facility]. Came in for heart failure. Breathing better since admission. Mildly tachycardic, atrial fibrillation, rapid ventricular response, heart pacing at 113. Pulmonary interstitial edema. Cardiology has been consulted. REVIEW OF SYSTEMS: As mentioned above, otherwise negative. PHYSICAL EXAM: Bp 160/60s, heart rate 100 to 120s. GI soft. Hematology negative Homans. Psych: Fair mood and affect. Giving appropriate answers, responding. Mechanical click at the apex of the heart exam. Irregularly regular rhythm. Abdomen: Soft, nontender. 2+ edema. ASSESSMENT: 1. Acute on chronic diastolic heart failure. 2. Paroxysmal atrial fibrillation, rapid ventricular response. 3. Supratherapeutic INR. 4. Mechanical mitral valve replacement. 5. Hypertension. 6. Sick sinus syndrome. 7. History of cerebrovascular accident. 8. Chronic hypoxemic respiratory failure. 9. Recent PEG tube infection. Continue IV diuretics. Lovenox subcu twice a day for INR bridging until INR is 2.5 to 3.5. Give Coumadin 5 mg now, repeat PT, INR, follow renal function, electrolytes, daily weights, and going to start her on digoxin for the atrial fibrillation rapid ventricular response per Cardiology. Prognosis guarded. Follow up in the next 24 to 48 hours. Past medical history of A-fib, A-flutter, asthma, cancer, heart failure, prior CVA, TIA, dementia, diabetes mellitus, GERD, GI bleeding, on last admission, hypertension, dyslipidemia, community-acquired pneumonia, sleep apnea, MRSA in the urine, MRSA PEG tube infection and wound culture. Consult Dr. Chavira and Dr. Silva for shortness of breath. Followup make sure she has no pneumonia. PROGNOSIS: Guarded. MMODL / IJN: [id number] /
[2020-11-10 23:56] LABS: MCV 104.2 fL (80.0-100.0)
[2020-11-11 00:14] LABS: Glucose,Whole Blood 196 mg/dL (75-99)
[2020-11-11] MEDS: CHOLESTYRAMINE (WITH SUGAR) 4 GM PACKET PEG/G-TUBE SCH ×2 (00:29→23:21)
[2020-11-11] MEDS: INSULIN ASPART (NovoLOG) 100 UNIT/ML VIAL SQ SCH ×4 (00:35→19:42)
[2020-11-11 00:56] LABS: Band Neutrophils % 11 %; Eosinophils # (M) 0.32 k/uL (0-0.7); Lymphocytes # (M) 1.47 k/uL (1.0-4.8); Monocytes # (M) 0.21 k/uL (0-1.0); Neutrophils % (M) 70 %; Nucleated Red Blood Cells 0 /100 WBC (0-0); Total Cells Counted 100
[2020-11-11 00:57] LABS: Polychromasia Present
[2020-11-11 00:58] LABS: Large Platelets Present
[2020-11-11] MEDS: DRY MOUTH SPRAY 44.3 SPRAY/44.3 ML SPRAY MUCOUS MEM SCH ×3 (05:25→23:21)
[2020-11-11] MEDS: FUROSEMIDE 10 MG/ML 4 ML VIAL IV SCH ×3 (05:25→21:10)
[2020-11-11] MEDS: METOPROLOL TARTRATE 50 MG TAB PEG/G-TUBE SCH ×3 (05:25→21:10)
[2020-11-11] MEDS: DILTIAZEM ORAL 60 MG TAB PEG/G-TUBE SCH ×3 (05:25→21:10)
[2020-11-11] MEDS: GABAPENTIN 100 MG CAP PEG/G-TUBE SCH ×3 (05:25→21:10)
[2020-11-11 06:13] LABS: Glucose,Whole Blood 250 mg/dL (75-99)
[2020-11-11 08:16] LABS: INR 1.2 (<1.2); Prothrombin Time 12.4 sec (9.0-12.0)
[2020-11-11 08:28] LABS: African American GFR (CKD) >90 (>60 ml/min/1.73 sqM); Anion Gap 4 mmol/L; Blood Urea Nitrogen 27 mg/dL (7-17); Calcium 9.2 mg/dL (8.4-10.2); Carbon Dioxide 35 mmol/L (22-30); Chloride 101 mmol/L (98-107); Glucose 239 mg/dL (74-99); Non-African American GFR(CKD) >90 (>60 ml/min/1.73 sqM); Potassium 3.7 mmol/L (3.5-5.1); Sodium 140 mmol/L (137-145)
--- NOTE | 2020-11-11 10:08 | P.CNPUL ---
History of Present Illness Consult date: 11/11/20 Reason for consult: dyspnea Chief complaint: Shortness of breath and tachycardia History of present illness: Patient is a 75-year-old female bedbound patient due to prior stroke mostly unresponsive but awake, [facility] with concerns of tachycardia as well as shortness of breath, overall difficult patient to get any history from but however patient does respond to simple question currently de nies any chest pain shortness of breath, her prior history is significant for chronic atrial fibrillation, bedbound status, congestive heart failure, CVA, advanced dementia and thymus disease, type 2 diabetes mellitus, GI bleed, dyslipidemia history of pneumonia as well as sleep disorder breathing review of the data revealed that patient has a residual left-sided hemiplegia/hemiparesis, which was related to non-traumatic subarachnoid hemorrhage, patient is nothing by mouth strict due to high risk of complication due to aspiration has a PEG tube, patient has a history of mitral valve replacement 2000, as well as a right hip fracture Review of Systems ROS unobtainable: due to mental status All systems: negative Past Medical History Past Medical History: Atrial Fibrillation, Atrial Flutter, Asthma, Cancer, Heart Failure, CVA/TIA, Dementia, Diabetes Mellitus, GERD/Reflux, GI Bleed, Hype rlipidemia, Hypertension, Pneumonia, Sleep Apnea/CPAP/BIPAP Additional Past Medical History / Comment(s): [facility]/t son Jose Rafael being unsure of history. Jose Rafael states he is also pt's DPOA. 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, post traumatic seizures, History of Any Multi-Drug Resistant Organisms: MRSA Date of last positivie culture/infection: 08/21/20 MDRO Source:: MRSA URINE Past Surgical History: Breast Surgery, Cardiac Valve Replacement, Heart Catheterization With Stent, Hysterectomy, Orthopedic Surgery, Pacemaker, Tonsillectomy Additional Past Surgical History / Comment(s): Peg tube, mechanical mitral valve 2000, polypectomy spinal cord/cyst removed, TEEs, CVNs, colonoscopies, bilateral cataract removal/lens implants, L rotator cuff repair, R femur fracture with IM hip/screw/nail, L breast lumpectomy, Past Anesthesia/Blood Transfusion Reactions: No Reported Reaction Date of Last Stent Placement:: 2006 Type of Cardiac Device: Permanent Pacemaker Device Placement Date:: 2009 Past Psychological History: Depression Additional Psychological History / Comment(s): Pt resides at [facility]. She is n onambulatory-get placed in wheelchair. She needs assist with all ADLs. Pt is NPO and has a peg tube. Smoking Status: Unknown if ever smoked Past Alcohol Use History: Unable to Obtain Additional Past Alcohol Use History / Comment(s): SMOKED OFF AND ON 1960 LESS THAN A YEAR THEN QUIT Past Drug Use History: Unable to Obtain - Past Family History Father Family Medical History: GI Bleed Additional Family Medical History / Comment(s): OF BLEEDING ULCER AT AGE 64 Mother Family Medical History: Cancer, CVA/TIA Additional Family Medical History / Comment(s): HX STROKES, COLON CANCER Medications and Allergies Home Medications Medication Instructions Recorded Confirmed Type Pravastatin Sodium [Pravachol] 40 mg PEG/G-TUBE HS@2100 05/20/17 11/09/20 History levETIRAcetam [Keppra Oral 100 mg PEG/G-TUBE DAILY@0800 09/27/17 11/09/20 History Solution] Aspirin 81 mg PEG/G-TUBE DAILY@0800 05/30/18 11/09/20 History Acetaminophen Oral Susp [Tylenol] 640 mg PEG/G-TUBE Q6H PRN 12/25/19 11/09/20 History Multivitamins, Thera Liquid 5 ml PEG/G-TUBE DAILY@1700 12/25/19 11/09/20 History [Theragran Liquid (formulary)] bisacodyL [Dulcolax] 10 mg RECTAL DAILY PRN 12/25/19 11/09/20 History Ipratropium-Albuterol Nebulize 3 ml INHALATION RT-QID PRN 06/11/20 11/09/20 History [Duoneb 0.5 mg-3 mg/3 ml Soln] Na Phos,M-B/Na Phos,Di-Ba [Fleet 133 ml RECTAL DAILY PRN 06/11/20 11/09/20 History Adult] Loratadine [Claritin] 10 mg PEG/G-TUBE DAILY@1700 tab 06/14/20 11/09/20 Rx Furosemide [Lasix] 40 mg PEG/G-TUBE BID@0800,1700 06/24/20 11/09/20 History INSULIN ASPART (NovoLOG) [NovoLOG See Protocol SQ ACHS 06/24/20 11/09/20 History (formulary)] metFORMIN HCL [Glucophage] 500 mg PEG/G-TUBE BID@0800,1700 06/24/20 11/09/20 History Metoprolol Tartrate [Lopressor] 100 mg PEG/G-TUBE 07/15/20 11/09/20 History TID@0600,1400,2200 Gabapentin [Neurontin] 100 mg PEG/G-TUBE 09/15/20 11/09/20 History TID@0600,1400,2100 Liquacel 30 ml PEG/G-TUBE TID@0800,1400,1700 09/15/20 11/09/20 History Simethicone 40 mg PEG/G-TUBE BID@0800,1700 09/15/20 11/09/20 History Biotene Dry Mouth Mouthwash 5 ml MUCOUS MEM TID@0600,1400,209910/18/20 11/09/20 History Cholestyramine/Aspartame 4 gm PEG/G-TUBE HS@2300 10/18/20 11/09/20 History [Cholestyramine Light Packet] Diltiazem Oral [Cardizem*] 60 mg PEG/G-TUBE TID@0600,1400,209910/18/20 11/09/20 History Ferrous Sulfate 330 mg PEG/G-TUBE DAILY@1700 10/18/20 11/09/20 History Insulin Detemir (Levemir) [Levemir] 40 unit SQ HS@209910/18/20 11/09/20 History Magnesium Hydroxide [Milk of 7,200 mg PEG/G-TUBE DAILY PRN 10/18/20 11/09/20 History Magnesia Concentrate] Nitroglycerin Sl Tabs [Nitrostat] 0.4 mg SL Q5M PRN 10/18/20 11/09/20 History Voriconazole [Vfend] 300 mg PO BID@0800,209911/09/20 11/09/20 History Warfarin [Coumadin] 2 mg PO DAILY@2100 11/09/20 11/09/20 History Allergies Allergy/AdvReac Type Severity Reaction Status Date / Time ciprofloxacin [From Cipro] Allergy Rash/Hives Verified 11/09/20 20:09 ciprofloxacin HCl Allergy Rash/Hives Verified 11/09/20 20:09 [From Cipro] Quinolones Allergy Unknown Verified 11/09/20 20:09 Physical Exam Vitals: Vital Signs Temp Pulse Pulse Resp BP BP Pulse Ox 11/11/20 08:01 98.2 F 107 H 20 113/75 99 11/11/20 04:00 97.4 F L 114 H 20 121/65 97 11/11/20 01:46 20 11/11/20 00:00 98.3 F 113 H 20 119/57 97 11/10/20 20:00 97.9 F 112 H 20 109/60 97 11/10/20 16:00 98.3 F 113 H 20 130/71 94 L 11/10/20 13:10 90 16 119/65 98 11/10/20 11:07 98.7 F 115 H 20 116/66 97 Intake and Output 11/10/20 11/11/20 11/11/20 22:59 06:59 14:59 Output Total 600 Balance -600 Output: Urine 600 Other: Voiding Method External Catheter External Catheter Weight 97.522 kg - Constitutional General appearance: average body habitus, cooperative, disheveled - EENT Eyes: PERRLA Ears: bilateral: normal - Neck Neck: normal ROM Carotids: bilateral: upstroke normal Thyroid: bilateral: normal size - Respiratory Respiratory: bilateral: CTA - Cardiovascular Rhythm: regular Heart sounds: normal: S1, S2 - Gastrointestinal General gastrointestinal: soft - Integumentary Integumentary: decreased turgor - Musculoskeletal Musculoskeletal: generalized weakness, left sided weakness Results - Laboratory Findings CBC and BMP: 11/10/20 11:41 11/11/20 07:37 PT/INR, D-dimer PT 12.4 sec (9.0-12.0) H 11/11/20 07:37 INR 1.2 (<1.2) H 11/11/20 07:37 Abnormal lab findings: Abnormal Labs 11/09/20 11/09/20 11/09/20 19:37 19:37 19:37 RBC 3.27 L Hgb 9.3 L Hct 30.8 L MCV MCHC 30.2 L RDW 21.3 H Plt Count 494 H Neutrophils # 7.9 H Neutrophils # (Manual) Macrocytosis PT 13.0 H INR 1.3 H Carbon Dioxide 32 H BUN 34 H Creatinine 0.40 L Glucose 225 H POC Glucose (mg/dL) AST 48 H ALT Alkaline Phosphatase 150 H Albumin 3.1 L Urine Protein Urine Blood Urine RBC Urine Bacteria Urine Mucus 11/09/20 11/10/20 11/10/20 20:17 11:41 11:41 RBC 3.29 L Hgb 9.4 L Hct MCV 104.2 H D MCHC 27.3 L RDW 21.3 H Plt Count Neutrophils # Neutrophils # (Manual) 8.50 H Macrocytosis Marked A PT INR Carbon Dioxide BUN 32 H Creatinine 0.38 L Glucose 239 H POC Glucose (mg/dL) AST 104 H ALT 57 H Alkaline Phosphatase 157 H Albumin 3.0 L Urine Protein Trace H Urine Blood Moderate H Urine RBC 34 H Urine Bacteria Rare H Urine Mucus Rare H 11/10/20 11/11/20 11/11/20 16:58 00:13 06:12 RBC Hgb Hct MCV MCHC RDW Plt Count Neutrophils # Neutrophils # (Manual) Macrocytosis PT INR Carbon Dioxide BUN Creatinine Glucose POC Glucose (mg/dL) 236 H 196 H 250 H AST ALT Alkaline Phosphatase Albumin Urine Protein Urine Blood Urine RBC Urine Bacteria Urine Mucus 11/11/20 11/11/20 07:37 07:37 RBC Hgb Hct MCV MCHC RDW Plt Count Neutrophils # Neutrophils # (Manual) Macrocytosis PT 12.4 H INR 1.2 H Carbon Dioxide 35 H BUN 27 H Creatinine 0.51 L Glucose 239 H POC Glucose (mg/dL) AST ALT Alkaline Phosphatase Albumin Urine Protein Urine Blood Urine RBC Urine Bacteria Urine Mucus - Diagnostic Findings Chest x-ray: report reviewed, image reviewed Assessment and Plan Assessment: Shortness of breath likely cardiovascular in etiology with A. fib with RVR as well as congestive heart failure related to acute on chronic diastolic heart platelet Chronic atrial fibrillation with rapid RVR Acute exacerbation of chronic diastolic heart failure with preserved ejection fraction History of CVA with left hemiparesis Chronic hypoxic respiratory failure due to multiple etiology Hypertension hypertensive cardiovascular disease History of aspiration pneumonia Plan: Continue gentle diuresis Continue supplemental oxygen Continue anticoagulation Continue to feed tolerating very well We'll follow clinical course closely further recommendations pending plan of care as per clinical response of patient Time with Patient: Greater than 30
[2020-11-11] MEDS: ASPIRIN 81 MG PEG/G-TUBE SCH (10:33)
[2020-11-11] MEDS: levETIRAcetam ORAL SOLN 500 MG/5 ML CUP PEG/G-TUBE SCH (10:34)
[2020-11-11] MEDS: metFORMIN 500 MG TAB PEG/G-TUBE SCH ×2 (10:35→16:53)
[2020-11-11] MEDS: SIMETHICONE 40 MG/0.6 ML DROPS 2,000 MG/30 ML BOTTLE PEG/G-TUBE SCH ×2 (10:36→16:54)
[2020-11-11] MEDS: VORICONAZOLE 200 MG TAB PO SCH ×2 (10:38→21:11)
[2020-11-11] MEDS: ENOXAPARIN 100 MG/ML SYRINGE SQ SCH ×2 (10:38→21:11)
[2020-11-11] MEDS: DIGOXIN 250 MCG/ML 2 ML AMP IVP SCH (11:09)
[2020-11-11 12:07] LABS: Glucose,Whole Blood 232 mg/dL (75-99)
--- NOTE | 2020-11-11 13:32 | PN ---
PROGRESS NOTE HISTORY: Ariane Eric is a lady with mechanical mitral valve, atrial fibrillation, who also has an underlying permanent pacemaker. She presented here yesterday with subtherapeutic INR and also question of sepsis. She is in a paced rhythm. Heart rate is about 110. Does not appear to be any distress. Septic workup is in progress. Antibiotics are on board. We will do a pacemaker check today to see how the device is functioning and she may need it to be adjusted. I will increase the beta annette today. PHYSICAL EXAM: Vitals are stable. She is slightly tachycardic. JVD 1 cm. No carotid bruit. S1-S2 heard normally. Short systolic murmur is audible. Prosthetic valve clicks are audible. Lungs reveal diminished air entry abdomen is soft. Lower extremities reveal diminished pulses. Central nervous system is grossly within normal limits. I did not do a detailed examination. Patient is not a good historian and communicates very little. PLAN: I will do a pacemaker check and continue current medications and see how she does. MMODL / IJN: [id number] /
[2020-11-11] MEDS: LORATADINE 10 MG TAB PEG/G-TUBE SCH (16:53)
[2020-11-11] MEDS: FERROUS SULFATE ORAL ELIXIR 300 MG/5 ML CUP PEG/G-TUBE SCH (16:54)
[2020-11-11] MEDS: MULTIVITAMINS, THERA LIQUID 237 ML BOTTLE PEG/G-TUBE SCH (16:55)
[2020-11-11] MEDS ORDERED: WARFARIN 7.5 MG TAB PEG/G-TUBE ONE ×2 (18:00)
[2020-11-11 18:16] LABS: Glucose,Whole Blood 239 mg/dL (75-99)
[2020-11-11] MEDS: PRAVASTATIN SODIUM 40 MG TAB PO SCH (21:10)
[2020-11-11] MEDS: INSULIN DETEMIR (LEVEMIR) 100 UNIT/ML SYR SQ SCH (21:11)
[2020-11-11 23:51] LABS: Glucose,Whole Blood 227 mg/dL (75-99)
[2020-11-12] MEDS: INSULIN ASPART (NovoLOG) 100 UNIT/ML VIAL SQ SCH ×4 (00:05→19:20)
--- NOTE | 2020-11-12 01:33 | PN ---
PROGRESS NOTE This is a 75-year-old white female, prior stroke, unresponsive but awake. She is giving appropriate answers today, saying she is cold. She is getting PEG tube feedings. She was admitted for atrial fibrillation, rapid ventricular response, fluid overload. She had a nontraumatic subarachnoid hemorrhage in the past, history of mitral valve replacement in 2000, right hip fracture. Cardiovascular: S1-S2. Lungs clear. GI soft. PEG tube intact. Alert, oriented x2. BUN is 27, creatinine 0.5, sodium 140, potassium 3.7. ASSESSMENT: 1. Atrial fibrillation, rapid ventricular response. 2. Congestive heart failure. 3. Chronic diastolic heart failure. 4. Chronic atrial fibrillation. 5. Preserved ejection fraction. 6. History of cerebrovascular accident and left hemiparesis. 7. Chronic hypoxemic respiratory failure. 8. Hypertension. 9. Aspiration pneumonia. Continue diuresis, oxygen, anticoagulation, tube feeding. Prognosis guarded. MMODL / IJN: [id number] /
[2020-11-12] MEDS: METOPROLOL TARTRATE 50 MG TAB PEG/G-TUBE SCH ×3 (05:48→21:10)
[2020-11-12] MEDS: GABAPENTIN 100 MG CAP PEG/G-TUBE SCH ×3 (05:48→21:10)
[2020-11-12] MEDS: FUROSEMIDE 10 MG/ML 4 ML VIAL IV SCH ×3 (05:48→21:10)
[2020-11-12] MEDS: DILTIAZEM ORAL 60 MG TAB PEG/G-TUBE SCH ×3 (05:48→21:10)
[2020-11-12] MEDS: DRY MOUTH SPRAY 44.3 SPRAY/44.3 ML SPRAY MUCOUS MEM SCH ×3 (05:49→21:30)
[2020-11-12 05:54] LABS: Glucose,Whole Blood 191 mg/dL (75-99)
[2020-11-12 09:17] LABS: INR 1.6 (<1.2); Prothrombin Time 16.2 sec (9.0-12.0)
--- NOTE | 2020-11-12 10:49 | PN ---
PROGRESS NOTE Ariane Eric is a lady who has atrial fibrillation and a mechanical aortic valve. She does not respond much. We cannot communicate much. There is also a question of infection, but more importantly, her INR was just 1.2 when she came into the hospital. We gave additional Coumadin and also gave some Lovenox. She is not responding much to questions, has a constant stare. She remains in a paced rhythm with underlying atrial fibrillation. Her PT/INR from today is still pending. I am giving her Lovenox, which we will continue, and also give her additional Coumadin. Her pacemaker appears to be functioning well. No further interrogation is necessary. The rate is better. Vitals are stable. No JVD. S1, S2 with a prosthetic valve. Clicks are audible. Lungs reveal diminished air entry. Abdomen is soft. Lower extremities reveal diminished pulses. Central nervous system exam was not performed. Patient appears to have a constant stare. We will continue Coumadin and Lovenox for now. No further evaluation of pacemaker; it appears to be functioning well. 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 MMODL / IJN: [id number] /
[2020-11-12] MEDS: levETIRAcetam ORAL SOLN 500 MG/5 ML CUP PEG/G-TUBE SCH (10:53)
[2020-11-12] MEDS: ASPIRIN 81 MG PEG/G-TUBE SCH (10:53)
[2020-11-12] MEDS: metFORMIN 500 MG TAB PEG/G-TUBE SCH ×2 (10:54→17:28)
[2020-11-12] MEDS: SIMETHICONE 40 MG/0.6 ML DROPS 2,000 MG/30 ML BOTTLE PEG/G-TUBE SCH ×2 (10:57→17:30)
[2020-11-12] MEDS: VORICONAZOLE 200 MG TAB PO SCH ×2 (10:59→21:10)
[2020-11-12] MEDS: DIGOXIN 250 MCG/ML 2 ML AMP IVP SCH (11:00)
[2020-11-12] MEDS: ENOXAPARIN 100 MG/ML SYRINGE SQ SCH ×2 (11:09→21:09)
[2020-11-12 12:05] LABS: Glucose,Whole Blood 262 mg/dL (75-99)
[2020-11-12] MEDS: LORATADINE 10 MG TAB PEG/G-TUBE SCH (17:28)
[2020-11-12] MEDS: MULTIVITAMINS, THERA LIQUID 237 ML BOTTLE PEG/G-TUBE SCH (17:28)
[2020-11-12] MEDS: FERROUS SULFATE ORAL ELIXIR 300 MG/5 ML CUP PEG/G-TUBE SCH (17:28)
[2020-11-12 18:00] LABS: Glucose,Whole Blood 239 mg/dL (75-99)
[2020-11-12] MEDS ORDERED: WARFARIN 5 MG TAB PO ONE (18:00)
--- NOTE | 2020-11-12 18:21 | PN ---
PROGRESS NOTE DATE OF SERVICE: 11/12/2020 REASON FOR FOLLOW UP: PEG tube site cellulitis. INTERVAL HISTORY: The patient is currently afebrile. The patient is slightly more awake, alert. Mentioned not feeling well. Did not answer any further questions. No vomiting or diarrhea has been reported. PHYSICAL EXAMINATION: Blood pressure 139/64, pulse of 130, temperature 99.1. She is 95% on 2 L nasal cannula. General description is an elderly female lying in bed in no distress. Respiratory system: Unlabored breathing, clear to auscultation anteriorly. Heart S1, S2. Regular rate and rhythm. Abdomen soft, no tenderness. The previous PEG site is currently dressed. No obvious drainage on the dressing. LABS: Creatinine 1.6. DIAGNOSTIC IMPRESSION AND PLAN: Patient with PEG tube site wound. No significant cellulitis noticed. Recommend local wound care with Aquacel silver dressing. She is on oral voriconazole, course in view of the previous cultures and continue supportive care. MMODL / IJN: [id number] /
[2020-11-12] MEDS: INSULIN DETEMIR (LEVEMIR) 100 UNIT/ML SYR SQ SCH (21:09)
[2020-11-12] MEDS: PRAVASTATIN SODIUM 40 MG TAB PO SCH (21:10)
[2020-11-13] MEDS: CHOLESTYRAMINE (WITH SUGAR) 4 GM PACKET PEG/G-TUBE SCH ×2 (00:03→23:45)
[2020-11-13 00:24] LABS: Glucose,Whole Blood 183 mg/dL (75-99)
--- NOTE | 2020-11-13 00:46 | PN ---
PROGRESS NOTE 75-year-old white female with congestive heart failure, COPD, acute respiratory distress. Complaining of some stomach pain. We will ask surgery to re-evaluate her abdomen. Vital signs stable. Afebrile. Cardiovascular S1, S2. Lungs clear. GI is soft, distended. PEG tube in place. Hematology negative Homans. ASSESSMENT: 1. Congestive heart failure. 2. Chronic obstructive pulmonary disease. 3. Acute hypoxemic respiratory distress. 4. Acute abdominal pain. Prognosis guarded. Await for surgical evaluation of abdominal pain. Check thyroid. Prognosis guarded. MMODL / IJN: [id number] /
[2020-11-13] MEDS: DILTIAZEM ORAL 60 MG TAB PEG/G-TUBE SCH ×3 (05:42→21:35)
[2020-11-13] MEDS: GABAPENTIN 100 MG CAP PEG/G-TUBE SCH ×3 (05:42→21:35)
[2020-11-13] MEDS: DRY MOUTH SPRAY 44.3 SPRAY/44.3 ML SPRAY MUCOUS MEM SCH ×3 (05:42→21:36)
[2020-11-13] MEDS: FUROSEMIDE 10 MG/ML 4 ML VIAL IV SCH (05:42)
[2020-11-13] MEDS: METOPROLOL TARTRATE 50 MG TAB PEG/G-TUBE SCH ×3 (05:42→21:35)
[2020-11-13] MEDS ORDERED: WARFARIN 5 MG TAB PO ONE (06:14)
[2020-11-13] MEDS: INSULIN ASPART (NovoLOG) 100 UNIT/ML VIAL SQ SCH ×5 (06:26→23:45)
[2020-11-13 06:36] LABS: Glucose,Whole Blood 198 mg/dL (75-99)
[2020-11-13 07:28] LABS: Prothrombin Time 19.8 sec (9.0-12.0)
[2020-11-13 07:57] LABS: ALT 51 U/L (4-34); AST 50 U/L (14-36); African American GFR (CKD) >90 (>60 ml/min/1.73 sqM); Albumin 2.9 g/dL (3.5-5.0); Alkaline Phosphatase 239 U/L (38-126); Anion Gap 7 mmol/L; Blood Urea Nitrogen 27 mg/dL (7-17); Calcium 9.3 mg/dL (8.4-10.2); Carbon Dioxide 33 mmol/L (22-30); Chloride 99 mmol/L (98-107); Glucose 210 mg/dL (74-99); Non-African American GFR(CKD) >90 (>60 ml/min/1.73 sqM); Potassium 4.1 mmol/L (3.5-5.1); Sodium 139 mmol/L (137-145); Total Bilirubin 0.2 mg/dL (0.2-1.3); Total Protein 6.3 g/dL (6.3-8.2)
[2020-11-13 08:07] LABS: Anisocytosis Moderate; Basophils # (A) 0.1 k/uL (0-0.2); Basophils % (A) 1 %; Eosinophils # (A) 0.3 k/uL (0-0.7); Eosinophils % (A) 4 %; HCT 31.5 % (34.0-46.0); HGB 9.8 gm/dL (11.4-16.0); Hypochromasia Marked; Lymphocytes # (A) 1.3 k/uL (1.0-4.8); Lymphocytes % (A) 16 %; MCH 29.5 pg (25.0-35.0); MCHC 30.9 g/dL (31.0-37.0); Macrocytosis Slight; Mean Platelet Volume 8.9; Monocytes # (A) 0.4 k/uL (0-1.0); Monocytes % (A) 5 %; Neutrophils # (A) 5.8 k/uL (1.3-7.7); Neutrophils % (A) 72 %; Platelet Count 437 k/uL (150-450); Poikilocytosis Slight; RBC 3.31 m/uL (3.80-5.40); RDW 21.1 % (11.5-15.5)
--- NOTE | 2020-11-13 08:13 | CT ---
EXAMINATION TYPE: CT abdomen wo con DATE OF EXAM: 11/13/2020 HISTORY: Upper abd pain CT DLP: 785.6 mGycm. Automated Exposure Control for Dose Reduction was Utilized. TECHNIQUE: CT scan of the abdomen is performed without oral or IV contrast. COMPARISON: CT abdomen and pelvis October 24, 2020 and older studies FINDINGS: Within the limitations of a non-contrast study, the following observations are made. LUNG BASES: Cardiomegaly redemonstrated. Partial visualization of inferior sternotomy, pacemaker lead s, and superficial pericardial pacer wires. New small to tiny right greater than left pleural effusio ns and associated compressive atelectasis. LIVER/GB: Tiny dependent calcified gallstone axial image 34 redemonstrated. No new surrounding inflam matory change PANCREAS: Mild fatty-replaced atrophy pancreatic head level redemonstrated. SPLEEN: No significant abnormality is seen. ADRENALS: No significant abnormality is seen. KIDNEYS: Cortical thinning in both kidneys redemonstrated consistent with product of chronic medical renal disease. Persistent 8 mm elongated calculus lower pole calyx left kidney axial image 42. BOWEL: Stable peg tube in gastric antrum. To the left of this there is old PEG tube scar extending to skin surface redemonstrated. Stomach is poorly distended and thus suboptimally evaluated. No suspici ous small or large bowel dilatation. LYMPH NODES: No new Greater than 1 cm abdominal lymph nodes are appreciated. OSSEOUS STRUCTURES: Surgical hardware right proximal femur partially imaged on localizer. OTHER: Mild to moderate calcified plaque of the aorta extends into branch vessels. IMPRESSION: No new or acute findings identified to account for patient's symptoms of upper abdominal pain.
[2020-11-13 08:20] LABS: MCV 95.3 fL (80.0-100.0)
[2020-11-13] MEDS: ASPIRIN 81 MG PEG/G-TUBE SCH (09:56)
[2020-11-13] MEDS: metFORMIN 500 MG TAB PEG/G-TUBE SCH ×2 (09:57→18:22)
[2020-11-13] MEDS: levETIRAcetam ORAL SOLN 500 MG/5 ML CUP PEG/G-TUBE SCH (09:57)
[2020-11-13] MEDS: FUROSEMIDE 40 MG TAB PO SCH (09:57)
[2020-11-13] MEDS: SIMETHICONE 40 MG/0.6 ML DROPS 2,000 MG/30 ML BOTTLE PEG/G-TUBE SCH ×2 (09:59→18:23)
[2020-11-13] MEDS: DIGOXIN 250 MCG/ML 2 ML AMP IVP SCH (10:01)
[2020-11-13] MEDS: VORICONAZOLE 200 MG TAB PO SCH ×2 (10:01→21:35)
[2020-11-13] MEDS: ENOXAPARIN 100 MG/ML SYRINGE SQ SCH ×2 (10:01→21:35)
--- NOTE | 2020-11-13 11:05 | P.PN ---
Subjective Progress Note Date: 11/13/20 Principal diagnosis: Shortness of breath likely cardiovascular in etiology with A. fib with RVR as well as congestive heart failure related to acute on chronic diastolic heart platelet Chronic atrial fibrillation with rapid RVR Acute exacerbation of chronic diastolic heart failure with preserved ejection fraction History of CVA with left hemiparesis Chronic hypoxic respiratory failure due to multiple etiology Hypertension hypertensive cardiovascular disease History of aspiration pneumonia 11/13/2020, patient seen eval examined during the rounds patient remains on 2 L oxygen arousable has been following simple commands, patient underwent computed tomography scan of the abdominal and pelvis, it was done without by mouth or IV contrast, patient had another CAT scan in October 24, basal Revealed presence of cardiomegaly very small tiny bilateral pleural effusion noted, no acute finding abdomen identified correctly was stable gastric antrum Patient is a 75-year-old female bedbound patient due to prior stroke mostly unresponsive but awake, patient presented from [facility] with concerns of tachycardia as well as shortness of breath, overall difficult patient to get any history from but however patient does respond to simple question currently denies any chest pain shortness of breath, her prior history is significant for chronic atrial fibrillation, bedbound status, congestive heart failure, CVA, advanced dementia and thymus disease, type 2 diabetes mellitus, GI bleed, dyslipidemia history of pneumonia as well as sleep disorder breathing review of the data revealed that patient has a residual left-sided hemiplegia/hemiparesis, which was related to non-traumatic subarachnoid hemorrhage, patient is nothing by mouth strict due to high risk of complication due to aspiration has a PEG tube, patient has a history of mitral valve replacement 2000, as well as a right hip fracture Objective - Vital Signs Vital signs: Vital Signs Temp 97.6 F 11/13/20 08:30 Pulse 64 11/13/20 08:30 Resp 20 11/13/20 08:30 BP 129/69 11/13/20 08:30 Pulse Ox 96 11/13/20 08:30 Intake & Output 11/12/20 11/13/20 11/13/20 18:59 06:59 18:59 Intake Total 2100 780 660 Output Total 800 400 Balance 2099 - 260 Weight 54 kg 57.5 kg Intake: Tube Feeding 2100 660 660 Other 120 Output: Urine 800 400 Other: Voiding Method External Catheter External Catheter External Catheter - Exam - Constitutional General appearance: average body habitus, cooperative, disheveled - EENT Eyes: PERRLA Ears: bilateral: normal - Neck Neck: normal ROM Carotids: bilateral: upstroke normal Thyroid: bilateral: normal size - Respiratory Respiratory: bilateral: CTA - Cardiovascular Rhythm: regular Heart sounds: normal: S1, S2 - Gastrointestinal General gastrointestinal: soft - Integumentary Integumentary: decreased turgor - Musculoskeletal Musculoskeletal: generalized weakness, left sided weakness - Labs CBC & Chem 7: 11/13/20 06:59 11/13/20 06:59 Labs: Abnormal Lab Results - Last 24 Hours (Table) 11/12/20 11/12/20 11/13/20 Range/Units 12:03 17:58 00:17 RBC (3.80-5.40) m/uL Hgb (11.4-16.0) gm/dL Hct (34.0-46.0) % MCHC (31.0-37.0) g/dL RDW (11.5-15.5) % PT (9.0-12.0) sec INR (<1.2) Carbon Dioxide (22-30) mmol/L BUN (7-17) mg/dL Creatinine (0.52-1.04) mg/dL Glucose (74-99) mg/dL POC Glucose (mg/dL) 262 H 239 H 183 H (75-99) mg/dL AST (14-36) U/L ALT (4-34) U/L Alkaline Phosphatase (38-126) U/L Albumin (3.5-5.0) g/dL 11/13/20 11/13/20 11/13/20 Range/Units 06:25 06:59 06:59 RBC 3.31 L (3.80-5.40) m/uL Hgb 9.8 L (11.4-16.0) gm/dL Hct 31.5 L (34.0-46.0) % MCHC 30.9 L (31.0-37.0) g/dL RDW 21.1 H (11.5-15.5) % PT 19.8 H (9.0-12.0) sec INR 2.0 H (<1.2) Carbon Dioxide (22-30) mmol/L BUN (7-17) mg/dL Creatinine (0.52-1.04) mg/dL Glucose (74-99) mg/dL POC Glucose (mg/dL) 198 H (75-99) mg/dL AST (14-36) U/L ALT (4-34) U/L Alkaline Phosphatase (38-126) U/L Albumin (3.5-5.0) g/dL 11/13/20 Range/Units 06:59 RBC (3.80-5.40) m/uL Hgb (11.4-16.0) gm/dL Hct (34.0-46.0) % MCHC (31.0-37.0) g/dL RDW (11.5-15.5) % PT (9.0-12.0) sec INR (<1.2) Carbon Dioxide 33 H (22-30) mmol/L BUN 27 H (7-17) mg/dL Creatinine 0.46 L (0.52-1.04) mg/dL Glucose 210 H (74-99) mg/dL POC Glucose (mg/dL) (75-99) mg/dL AST 50 H (14-36) U/L ALT 51 H (4-34) U/L Alkaline Phosphatase 239 H (38-126) U/L Albumin 2.9 L (3.5-5.0) g/dL Assessment and Plan Assessment: Shortness of breath likely cardiovascular in etiology with A. fib with RVR as well as congestive heart failure related to acute on chronic diastolic heart platelet Chronic atrial fibrillation with rapid RVR Acute exacerbation of chronic diastolic heart failure with preserved ejection fraction History of CVA with left hemiparesis Chronic hypoxic respiratory failure due to multiple etiology Hypertension hypertensive cardiovascular disease History of aspiration pneumonia Plan: Continue gentle diuresis Continue supplemental oxygen Continue anticoagulation Continue to feed tolerating very well We'll follow clinical course closely further recommendations pending plan of care as per clinical response of patient Time with Patient: Greater than 30
--- NOTE | 2020-11-13 11:48 | PN ---
PROGRESS NOTE Mrs Eric remains in atrial fib which is underlying rhythm with a paced rhythm. She is not very communicative or responsive. INR is 1.6. We will continue Coumadin p.o. to keep the INR therapeutic. She has a mechanical mitral valve. I will check a CBC, BMP, switch her from IV to oral Lasix. Her breathing is easier, oxygenation is better, 5 mg Coumadin will be given. Vitals are stable. JVD 1 cm. No carotid bruit. S1, S2 with a prosthetic valve clicks audible which are crisp. Lungs reveal decent air entry. Abdomen is soft. Lower extremity edema has improved. Plan is to continue Coumadin and once INR is more than 2.5, she can be discharged. MMODL / IJN: [id number] /
[2020-11-13 11:50] LABS: Glucose,Whole Blood 202 mg/dL (75-99)
--- NOTE | 2020-11-13 16:25 | P.PN ---
Progress Note - Text Progress Note Date: 11/13/20 Presenting complaint: Tired Interval history: Spoke to the nurse. Patient been tolerating her tube feeding. Also having bowel movements. Has not complained of any abdominal pain. Computed tomography scan of the abdomen was unremarkable. No nausea vomiting reported. Appears comfortable resting. Review of systems: Limited historian Active Medications Acetaminophen (Acetaminophen Oral Susp 160 Mg/5 Ml Cup) 640 mg PEG/G-TUBE Q6H PRN PRN Reason: Pain Last Admin: 11/10/20 08:59 Dose: 640 mg Documented by: Albuterol/Ipratropium (Ipratropium-Albuterol 3 Ml Neb) 3 ml INHALATION RT-QID PRN PRN Reason: Shortness Of Breath Aspirin (Aspirin 81 Mg) 81 mg PEG/G-TUBE DAILY@0800 [facility] Last Admin: 11/13/20 09:56 Dose: 81 mg Documented by: Bisacodyl (Bisacodyl 10 Mg Supp) 10 mg RECTAL DAILY PRN PRN Reason: Constipation Cholestyramine Resin (Cholestyramine (With Sugar) 4 Gm Packet) 4 gm PEG/G-TUBE HS@2300 [facility] Last Admin: 11/13/20 00:03 Dose: Not Given Documented by: Digoxin (Digoxin 250 Mcg/Ml 2 Ml Amp) 125 mcg IVP DAILY [facility] Last Admin: 11/13/20 10:01 Dose: 125 mcg Documented by: Diltiazem HCl (Diltiazem Oral 60 Mg Tab) 60 mg PEG/G-TUBE TID@0600,1400,2100 [facility] Last Admin: 11/13/20 15:14 Dose: 60 mg Documented by: Enoxaparin Sodium (Enoxaparin 100 Mg/Ml Syringe) 100 mg SQ Q12HR [facility] Last Admin: 11/13/20 10:01 Dose: 100 mg Documented by: Ferrous Sulfate (Ferrous Sulfate Oral Elixir 300 Mg/5 Ml Cup) 300 mg PEG/G-TUBE DAILY@1700 [facility] Last Admin: 11/12/20 17:28 Dose: 300 mg Documented by: Furosemide (Furosemide 40 Mg Tab) 40 mg PO DAILY [facility] Last Admin: 11/13/20 09:57 Dose: 40 mg Documented by: Gabapentin (Gabapentin 100 Mg Cap) 100 mg PEG/G-TUBE TID@0600,1400,2100 [facility] Last Admin: 11/13/20 15:14 Dose: 100 mg Documented by: Insulin Aspart (Insulin Aspart (Novolog) 100 Unit/Ml Vial) 0 unit SQ 0000,0600,1200,1800 [facility]; Protocol Last Admin: 11/13/20 12:47 Dose: 2 unit Documented by: Insulin Detemir (Insulin Detemir (Levemir) 100 Unit/Ml Syr) 40 unit SQ HS@2100 [facility] Last Admin: 11/12/20 21:09 Dose: 40 unit Documented by: Iron/Minerals/Multivitamins (Multivitamins, Thera Liquid 237 Ml Bottle) 5 ml PEG/G-TUBE DAILY@1700 [facility] Last Admin: 11/12/20 17:28 Dose: 5 ml Documented by: Levetiracetam (Levetiracetam Oral Soln 500 Mg/5 Ml Cup) 100 mg PEG/G-TUBE DAILY@0800 [facility] Last Admin: 11/13/20 09:57 Dose: 100 mg Documented by: Loratadine (Loratadine 10 Mg Tab) 10 mg PEG/G-TUBE DAILY@1700 [facility] Last Admin: 11/12/20 17:28 Dose: 10 mg Documented by: Magnesium Hydroxide (Magnesium Hydroxide 2,400 Mg/10 Ml Cup) 2,400 mg PEG/G- TUBE DAILY PRN PRN Reason: Constipation Metformin HCl (Metformin 500 Mg Tab) 500 mg PEG/G-TUBE BID@0800,1700 [facility] Last Admin: 11/13/20 09:57 Dose: 500 mg Documented by: Metoprolol Tartrate (Metoprolol Tartrate 50 Mg Tab) 100 mg PEG/G-TUBE TID@0600,1400,2200 [facility] Last Admin: 11/13/20 15:14 Dose: 100 mg Documented by: Miscellaneous Information (Warfarin Per Pharmacy) 0 each MISCELLANE DIRECTED PRN PRN Reason: PHARMACY DOSING PROTOCOL Pravastatin Sodium (Pravastatin Sodium 40 Mg Tab) 40 mg PO HS@2100 [facility] Last Admin: 11/12/20 21:10 Dose: 40 mg Documented by: Saliva Substitute (Dry Mouth Maitland 44.3 Maitland/44.3 Ml Maitland) 2 spray MUCOUS MEM TID@0600,1400,2100 [facility] Last Admin: 11/13/20 15:15 Dose: 2 spray Documented by: Simethicone (Simethicone 40 Mg/0.6 Ml Drops 2,000 Mg/30 Ml Bottle) 40 mg PEG/G- TUBE BID@0800,1700 [facility] Last Admin: 11/13/20 09:59 Dose: 40 mg Documented by: Sodium Biphosphate/Sodium Phosphate (Na Phos,M-B/Na Phos,Di-Ba 133 Ml Enema) 133 ml RECTAL DAILY PRN PRN Reason: Constipation Voriconazole (Voriconazole 200 Mg Tab) 300 mg PO BID@0800,2100 [facility] Last Admin: 11/13/20 10:01 Dose: 300 mg Documented by: Warfarin Sodium (Warfarin 3 Mg Tab) 3 mg PO ONCE@1800 ONE Stop: 11/13/20 18:01 On examination: VITAL SIGNS: 97.7, 73, 16, 138.78, 98% on 2 L GENERAL APPEARANCE: Laying in bed, sleepy EYES: Pupils equal. Conjunctiva normal. NECK: JVD unable to be assessed. Mass not palpable. RESPIRATORY: Respiratory effort normal. Lungs decreased breath sounds. CARDIOVASCULAR: First and second sounds normal. No edema. ABDOMEN: Soft. Nontender. PEG tube in place. Liver and spleen not palpable. . No mass palpable. PSYCHIATRY: Does answer simple questions INVESTIGATIONS, reviewed in the clinical context: WBC 8 hemoglobin 9.8 platelets 437 INR 2 potassium 4.1 BUN 27 creatinine 0.46 Accu-Cheks 202 Computed tomography scan of the abdomen: Cardiomegaly. Pacemaker leads. Aniceto dependent calcified gallstones. No inflammatory changes. Cortical thinning in both kidneys. Left kidney calculus. Assessment and plan: -Acute on chronic congestive heart failure from diastolic dysfunction EF 55-60%: Better IV Lasix changed over to by mouth -PEG tube feeding Tolerating had cold -Left hemiplegia, hemiparesis following nontraumatic subarachnoid hemorrhage Non-ambulatory -Chronic dysphagia. Patient nothing by mouth. Chronic 2 feeding -Bladder and bowel incontinence Dependence and Gross catheter -Mechanical mitral valve replacement in 2000 On Coumadin -PEG tube site wound Local wound care with Aquacel silver dressing. -Coumadin monitoring -Coronary artery disease with stent Aspirin. Lopressor 100 mg twice a day -Chronic medical debility. Does get placed in a wheelchair -Persistent atrial flutter fibrillation: Currently rate controlled Cardizem 60 mg 3 times a day, Lopressor 100 mg twice a day -Diabetes mellitus type 2, chronically on insulin. Uncontrolled with hyperglycemia Levemir 30 units subcu daily at bedtime. Follow Accu-Cheks. Glucophage. -Essential hypertension Cardizem, Lopressor Changed over to oral Lasix. Tolerating 2 feeding. Abdomen is soft. If remains stable should be able to be discharged tomorrow. Follow with ID recommendations.
[2020-11-13 16:49] LABS: Glucose,Whole Blood 181 mg/dL (75-99)
[2020-11-13] MEDS ORDERED: WARFARIN 3 MG TAB PO ONE (18:00)
[2020-11-13] MEDS: FERROUS SULFATE ORAL ELIXIR 300 MG/5 ML CUP PEG/G-TUBE SCH (18:22)
[2020-11-13] MEDS: LORATADINE 10 MG TAB PEG/G-TUBE SCH (18:22)
[2020-11-13] MEDS: MULTIVITAMINS, THERA LIQUID 237 ML BOTTLE PEG/G-TUBE SCH (18:23)
--- NOTE | 2020-11-13 19:04 | PN ---
PROGRESS NOTE DATE OF SERVICE: 11/13/2020 REASON FOR FOLLOWUP: PEG tube site cellulitis and nonhealing wound. INTERVAL HISTORY: Patient is afebrile. The patient is currently breathing comfortably. No vomiting, diarrhea, or other changes reported by nursing staff. The patient herself did not provide any history. PHYSICAL EXAMINATION: Blood pressure 138/72 with a pulse of 73. Temperature is 99.7. She is 98% on 2 L nasal cannula. General description is an elderly female lying in bed in no distress. Respiratory system: Unlabored breathing with decreased breath sounds in the bases. No wheeze. Heart S1, S2. Regular rate and rhythm. Abdomen soft, no tenderness. Extremities: No edema of the feet. LABS: Hemoglobin is 9.1, white count 8.0, BUN of 27, creatinine 0.46. DIAGNOSTIC IMPRESSION AND PLAN: Patient with PEG tube site cellulitis. Previous culture positive for Hannah glabrata. The patient is currently on . Local care with dry Aquacel silver dressing and continue supportive care. MMODL / IJN: [id number] /
[2020-11-13] MEDS: PRAVASTATIN SODIUM 40 MG TAB PO SCH (21:35)
[2020-11-13] MEDS: INSULIN DETEMIR (LEVEMIR) 100 UNIT/ML SYR SQ SCH (21:35)
[2020-11-13 23:44] LABS: Glucose,Whole Blood 180 mg/dL (75-99)
[2020-11-14 06:12] LABS: Glucose,Whole Blood 173 mg/dL (75-99)
[2020-11-14] MEDS: GABAPENTIN 100 MG CAP PEG/G-TUBE SCH ×3 (06:44→20:29)
[2020-11-14] MEDS: INSULIN ASPART (NovoLOG) 100 UNIT/ML VIAL SQ SCH ×3 (06:44→17:29)
[2020-11-14] MEDS: DILTIAZEM ORAL 60 MG TAB PEG/G-TUBE SCH ×3 (06:44→20:29)
[2020-11-14] MEDS: METOPROLOL TARTRATE 50 MG TAB PEG/G-TUBE SCH ×3 (06:44→20:29)
[2020-11-14] MEDS: DRY MOUTH SPRAY 44.3 SPRAY/44.3 ML SPRAY MUCOUS MEM SCH ×3 (06:45→20:29)
[2020-11-14 08:14] LABS: INR 2.6 (<1.2); Prothrombin Time 25.5 sec (9.0-12.0)
--- NOTE | 2020-11-14 09:35 | P.PN ---
Subjective Progress Note Date: 11/14/20 Principal diagnosis: Shortness of breath likely cardiovascular in etiology with A. fib with RVR as well as congestive heart failure related to acute on chronic diastolic heart platelet Chronic atrial fibrillation with rapid RVR Acute exacerbation of chronic diastolic heart failure with preserved ejection fraction History of CVA with left hemiparesis Chronic hypoxic respiratory failure due to multiple etiology Hypertension hypertensive cardiovascular disease History of aspiration pneumonia 11/14/2020, patient seen eval examined during the rounds labs reviewed medicatio ns reviewed care plan discussed, respiratory status the is stable patient remains on 2 L oxygen get short of breath intermittently for congestion, patient has a pack to cellulitis of the skin previous culture were positive for Hannah glabrata has been treated now local care, 2 feet is being tolerated very well, respiratory status improved now gentle diuresis in progress by Guerda, 11/13/2020, patient seen eval examined during the rounds patient remains on 2 L oxygen arousable has been following simple commands, patient underwent computed tomography scan of the abdominal and pelvis, it was done without by mouth or IV contrast, patient had another CAT scan in October 24, basal Revealed presence of cardiomegaly very small tiny bilateral pleural effusion noted, no acute finding abdomen identified correctly was stable gastric antrum Patient is a 75-year-old female bedbound patient due to prior stroke mostly unresponsive but awake, patient presented [facility] [place] [facility] with concerns of tac hycardia as well as shortness of breath, overall difficult patient to get any history from but however patient does respond to simple question currently denies any chest pain shortness of breath, her prior history is significant for chronic atrial fibrillation, bedbound status, congestive heart failure, CVA, advanced dementia and thymus disease, type 2 diabetes mellitus, GI bleed, dyslipidemia history of pneumonia as well as sleep disorder breathing review of the data revealed that patient has a residual left-sided hemiplegia/hemiparesis, which was related to non-traumatic subarachnoid hemorrhage, patient is nothing by mouth strict due to high risk of complication due to aspiration has a PEG tube, patient has a history of mitral valve replacement 2000, as well as a right hip fracture Objective - Vital Signs Vital signs: Vital Signs Temp 98.3 F 11/14/20 03:20 Pulse 67 11/14/20 03:20 Resp 18 11/14/20 03:20 BP 131/75 11/14/20 03:20 Pulse Ox 97 11/14/20 03:20 Intake & Output 11/13/20 11/14/20 11/14/20 18:59 06:59 18:59 Intake Total 1979 Output Total 400 300 Balance 1580 -300 Weight 61.5 kg Intake: Tube Feeding 1979 Output: Urine 400 300 Other: Voiding Method External Catheter External Catheter # Bowel Movements 1 - Exam - Constitutional General appearance: average body habitus, cooperative, disheveled - EENT Eyes: PERRLA Ears: bilateral: normal - Neck Neck: normal ROM Carotids: bilateral: upstroke normal Thyroid: bilateral: normal size - Respiratory Respiratory: bilateral: CTA - Cardiovascular Rhythm: regular Heart sounds: normal: S1, S2 - Gastrointestinal General gastrointestinal: soft - Integumentary Integumentary: decreased turgor - Musculoskeletal Musculoskeletal: generalized weakness, left sided weakness - Labs CBC & Chem 7: 11/13/20 06:59 11/13/20 06:59 Labs: Abnormal Lab Results - Last 24 Hours (Table) 11/13/20 11/13/20 11/13/20 Range/Units 11:43 16:44 23:43 PT (9.0-12.0) sec INR (<1.2) POC Glucose (mg/dL) 202 H 181 H 180 H (75-99) mg/dL 11/14/20 11/14/20 Range/Units 06:10 07:21 PT 25.5 H (9.0-12.0) sec INR 2.6 H (<1.2) POC Glucose (mg/dL) 173 H (75-99) mg/dL Assessment and Plan Assessment: Shortness of breath likely cardiovascular in etiology with A. fib with RVR as well as congestive heart failure related to acute on chronic diastolic heart failure, stabilized Chronic atrial fibrillation with rapid RVR, improved Acute exacerbation of chronic diastolic heart failure with preserved ejection fraction History of CVA due to subarachnoid hemorrhage with left hemiparesis Chronic hypoxic respiratory failure due to multiple etiology Hypertension hypertensive cardiovascular disease History of aspiration pneumonia Plan: Continue gentle diuresis Continue supplemental oxygen Continue anticoagulation Continue tube feed tolerating, patient has been tolerating very well We'll follow clinical course closely further recommendations pending plan of care as per clinical response of patient Time with Patient: Greater than 30
[2020-11-14] MEDS: ASPIRIN 81 MG PEG/G-TUBE SCH (09:40)
[2020-11-14] MEDS: FUROSEMIDE 40 MG TAB PO SCH (09:40)
[2020-11-14] MEDS: metFORMIN 500 MG TAB PEG/G-TUBE SCH ×2 (09:40→17:28)
[2020-11-14] MEDS: DIGOXIN 250 MCG/ML 2 ML AMP IVP SCH (09:40)
[2020-11-14] MEDS: levETIRAcetam ORAL SOLN 500 MG/5 ML CUP PEG/G-TUBE SCH (09:41)
[2020-11-14] MEDS: VORICONAZOLE 200 MG TAB PO SCH ×2 (09:41→20:30)
[2020-11-14] MEDS: SIMETHICONE 40 MG/0.6 ML DROPS 2,000 MG/30 ML BOTTLE PEG/G-TUBE SCH ×2 (09:42→17:28)
[2020-11-14] MEDS: ENOXAPARIN 100 MG/ML SYRINGE SQ SCH (09:58)
[2020-11-14 11:36] LABS: Glucose,Whole Blood 180 mg/dL (75-99)
--- NOTE | 2020-11-14 13:29 | P.PN ---
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 She does not follow regularly in the office with a division sergeant since 2018. She was just discharged back to the hospital after undergoing repeat PEG tube placement complicated by respiratory failure.. We have been asked to see in consultation for heart failure. Echocardiogram June 2020 revealed EF of 5560 percent. Patient seen and examined at bedside, no acute distress. Telemetry reviewed patient is be paced heart rate in the 60s. Blood pressure 137/76, heart rate 65, afebrile, maintaining oxygen on 2 L nasal cannula. Laboratory data reviewed INR 2.6. Currently maintained on Cardizem 60 mg daily, digoxin IV 125mcg daily, by mouth Lasix 40 mg daily, Lopressor 100 mg 3 times a day, pravastatin 40 mg nightly, warfarin 3 mg nightly. GENERAL: Well-appearing, well-nourished and in no acute distress. NECK: Supple without JVD or thyromegaly. LUNGS: Breath sounds diminished to auscultation bilaterally. Respiration equal and unlabored. No wheezes, rales or rhonchi. HEART: Regular rate and rhythm Mechanical click at the apex, systolic ejection murmur noted, No rubs or gallops. S1 and S2 heard. EXTREMITIES: Normal range of motion, mild bilateral lower extremity edema. No clubbing or cyanosis. Peripheral pulses intact. ASSESSMENT Acute on chronic diastolic heart failure Paroxysmal atrial fibrillation with rapid ventricular rate, now better rate controls Subtherapeutic INR, improving Mechanical mitral valve replacement Hypertension Sick sinus syndrome status post permanent pacemaker implantation History of CVA Chronic hypoxic respiratory failure PLAN Stop patient's IV Digoxin Patient has been switched to PO Lasix and her INR is therapeutic. Patient is hemodynamically stable. We will follow the patient as needed. Please call with further questions or concerns. Patient to follow-up in the office with Dr. Beard Nurse Practitioner note has been reviewed, I agree with a documented findings and plan of care. Patient was seen and examined. Objective - Vital Signs Vital signs: Vital Signs Temp 98.3 F 11/14/20 08:00 Pulse 65 11/14/20 12:00 Resp 18 10/04/21 03:20 BP 137/76 11/14/20 12:00 Pulse Ox 98 11/14/20 12:00 Intake & Output 11/13/20 11/14/20 11/14/20 18:59 06:59 18:59 Intake Total 1979 1320 Output Total 400 300 Balance 1580 -300 1320 Weight 61.5 kg 50.5 kg Intake: Tube Feeding 1979 1319 Output: Urine 400 300 Other: Voiding Method External Catheter External Catheter External Catheter # Voids 1 # Bowel Movements 1 - Labs CBC & Chem 7: 11/13/20 06:59 11/13/20 06:59 Labs: Abnormal Lab Results - Last 24 Hours (Table) 11/13/20 11/13/20 11/14/20 Range/Units 16:44 23:43 06:10 PT (9.0-12.0) sec INR (<1.2) POC Glucose (mg/dL) 181 H 180 H 173 H (75-99) mg/dL 11/14/20 11/14/20 Range/Units 07:21 11:35 PT 25.5 H (9.0-12.0) sec INR 2.6 H (<1.2) POC Glucose (mg/dL) 180 H (75-99) mg/dL
[2020-11-14 13:30] VITALS: BMI 17.9
[2020-11-14 16:49] LABS: Glucose,Whole Blood 204 mg/dL (75-99)
[2020-11-14] MEDS: MULTIVITAMINS, THERA LIQUID 237 ML BOTTLE PEG/G-TUBE SCH (17:28)
[2020-11-14] MEDS: LORATADINE 10 MG TAB PEG/G-TUBE SCH (17:28)
[2020-11-14] MEDS: FERROUS SULFATE ORAL ELIXIR 300 MG/5 ML CUP PEG/G-TUBE SCH (17:28)
[2020-11-14] MEDS ORDERED: WARFARIN 3 MG TAB PO ONE (18:00)
[2020-11-14 20:23] LABS: Glucose,Whole Blood 179 mg/dL (75-99)
[2020-11-14] MEDS: INSULIN DETEMIR (LEVEMIR) 100 UNIT/ML SYR SQ SCH (20:29)
[2020-11-14] MEDS: CHOLESTYRAMINE (WITH SUGAR) 4 GM PACKET PEG/G-TUBE SCH (20:29)
[2020-11-14] MEDS: PRAVASTATIN SODIUM 40 MG TAB PO SCH (20:29)
[2020-11-15 00:25] LABS: Glucose,Whole Blood 172 mg/dL (75-99)
[2020-11-15] MEDS: INSULIN ASPART (NovoLOG) 100 UNIT/ML VIAL SQ SCH ×2 (00:30→06:03)
[2020-11-15 04:33] VITALS: RESP 18
[2020-11-15 06:00] LABS: Glucose,Whole Blood 178 mg/dL (75-99)
[2020-11-15] MEDS: DRY MOUTH SPRAY 44.3 SPRAY/44.3 ML SPRAY MUCOUS MEM SCH (06:02)
[2020-11-15] MEDS: METOPROLOL TARTRATE 50 MG TAB PEG/G-TUBE SCH (06:03)
[2020-11-15] MEDS: GABAPENTIN 100 MG CAP PEG/G-TUBE SCH (06:03)
[2020-11-15] MEDS: DILTIAZEM ORAL 60 MG TAB PEG/G-TUBE SCH (06:03)
[2020-11-15 09:16] LABS: INR 2.5 (<1.2); Prothrombin Time 24.4 sec (9.0-12.0)
[2020-11-15] MEDS: SIMETHICONE 40 MG/0.6 ML DROPS 2,000 MG/30 ML BOTTLE PEG/G-TUBE SCH (09:17)
[2020-11-15] MEDS: FUROSEMIDE 40 MG TAB PO SCH (09:17)
[2020-11-15] MEDS: metFORMIN 500 MG TAB PEG/G-TUBE SCH (09:17)
[2020-11-15] MEDS: VORICONAZOLE 200 MG TAB PO SCH (09:18)
[2020-11-15] MEDS: levETIRAcetam ORAL SOLN 500 MG/5 ML CUP PEG/G-TUBE SCH (09:18)
[2020-11-15 11:27] VITALS: BP 148/58; PULSE 66; TEMP 98.5
--- NOTE | 2020-11-15 11:34 | PN ---
PROGRESS NOTE DATE OF SERVICE: 11/14/2020 REASON FOR FOLLOWUP: PEG tube site cellulitis. INTERVAL HISTORY: The patient is afebrile. The patient is currently breathing comfortably. She is hemodynamically stable, remains nonverbal, unable to provide any history. No vomiting, diarrhea or other changes reported by the nursing staff. PHYSICAL EXAMINATION: Blood pressure 127/61 with a pulse of 84, temperature 98.3. She is 97% on 2 L nasal cannula. General description is an elderly female lying in bed in no distress. RESPIRATORY SYSTEM: Unlabored breathing. Clear to auscultation anteriorly. HEART: S1, S2. Regular rate and rhythm. ABDOMEN: Soft. No tenderness. LABS: INR is 2.3. DIAGNOSTIC IMPRESSION AND PLAN: Patient with abdominal wall cellulitis at the previous PEG site which has been discontinued. The patient is currently covered with with local wound care with Aquacel Silver dressing. Continue supportive care. MMODL / IJN: [id number] /
--- NOTE | 2020-11-15 11:35 | DS ---
DISCHARGE SUMMARY DISCHARGE DIAGNOSES: 1. Congestive heart failure. 2. Abdominal pain. 3. PEG tube infection. 4. Abdominal wall cellulitis. 5. Atrial fibrillation with rapid ventricular response. 6. Acute on chronic hypoxemic respiratory distress. 7. Chronic obstructive pulmonary disease. 8. Prior cerebrovascular accident, hemiparesis. 9. Diabetes mellitus. 10.Diabetic neuropathy. HOME MEDICINES: 1. Coumadin 3 mg daily. 2. Lasix 40 mg daily. 3. Milk of magnesia 2400 mg daily p.r.n. for constipation. 4. Pravachol 40 mg daily through the PEG tube. 5. Keppra 100 mg PEG tube daily. 6. Aspirin 81 mg through the PEG tube daily. 7. Dulcolax 10 mg rectal suppository p.r.n. 8. Tylenol PEG tube q.6 p.r.n. 9. Multivitamin daily. 10.Fleets enema daily. 11.DuoNeb q.i.d. 12.Claritin 10 mg daily. 13.Lopressor 100 mg PEG tube t.i.d. 14.Neurontin 100 mg PEG tube t.i.d. 15.Simethicone PEG tube b.i.d. 16.Levemir 40 units subcutaneously daily. 17.Nitrostat 0.4 mg sublingually p.r.n. 18.NovoLog before meals and at bedtime. 19.Metformin 500 mg PEG tube b.i.d. 20. T-tube t.i.d. 21.Cardizem 60 mg per PEG tube t.i.d. 22.Ferrous sulfate mg PEG tube daily. 23.Cholestyramine 4 mg PEG tube at night. 24.Voriconazole 300 mg p.o. b.i.d. for a week. CONDITION: Stable. PROGNOSIS: Guarded. Ambulate as tolerated. This patient came into the hospital with lowered mental status, atrial fibrillation, rapid ventricular response, fluid overload. She was seen by supervisor lamp shades, branch services manager; treated with broad-spectrum antibiotics. PEG tube with site infection, atrial fibrillation and respiratory distress, encephalopathy. Patient slowly improved over the next week. Cleared by Cardiology, Infectious Disease and Pulmonary. Follow up as an outpatient with Dr. Luis A Gomez at the [facility]. Condition stable. Prognosis guarded. Ambulate as tolerated. MMODL / IJN: [id number] /
--- NOTE | 2020-11-15 11:35 | PN ---
PROGRESS NOTE Pozgzce-bxfp-lwoi-old white female. Heart rate paced in the 60s, blood pressure 130s over 70s, respiratory rate 65 she is maintained on 2 L nasal cannula. INR is 2.6. Currently maintained on Cardizem 60 daily, digoxin IV 125 mcg daily, Lasix 40 daily, Lopressor 100 t.i.d., pravastatin 40 daily, warfarin 3 mg nightly. She is sleeping comfortably. Well developed, in no acute distress. She is bedridden and does not get out of bed. She responds to questions. She is confused a lot of the time. She has mild lower extremity edema. Breath sounds are diminished. Heart: Regular rate and rhythm. Neck supple. ASSESSMENT: 1. Acute on chronic diastolic heart failure. 2. Paroxysmal atrial fibrillation. 3. Subtherapeutic INR. 4. Mechanical mitral valve placement. 5. Hypertension. 6. Sick sinus syndrome. 7. Status post pacemaker implantation. 8. History of cerebrovascular accident. 9. Chronic hypoxemic respiratory failure. 10.Chronic wound infection with PEG tube replacement recently. Switched to oral Lasix. INR is therapeutic. Possibly discharge to rehab placement back to the sn[facility] tomorrow. MMODL / IJN: [id number] /
[2020-11-15] MEDS ORDERED: WARFARIN 5 MG TAB PO ONE (18:00)
[2020-11-15] MEDS ORDERED: WARFARIN 3 MG TAB PO SCH (18:00)
--- NOTE | 2020-11-17 13:34 | CDI ---
Documentation Clarification Form Date: 11/17/2020 01:25:35 PM From: Bart Ibarra Admit Date: 11/09/2020 09:25:00 PM Patient Name: Ariaen Eric Visit Number: [id number] Discharge Date: 11/15/2020 11:51:00 AM ATTENTION: The Clinical Documentation Specialists (CDI) and [facility] Coding Staff appreciate your assistance in clarifying documentation. Please respond to the clarification below the line at the bottom and electronically sign. The CDI & [facility] Coding staff will review the response and follow-up if needed. Please note: Queries are made part of the Legal Health Record. If you have any questions, please contact the author of this message via ITS. Dr. Luis A Gomez Your patient has a diagnosis of chronic hypoxic respiratory failure. Discharge summary states acute on chronic hypoxic respiratory distress. Need to know if this is just respiratory distress or respiratory failure. History/Risk Factors: Aspiration PNA, CHF exacerbation, chronic respiratory failure Home oxygen: Home O2 Clinical Indicators: Vital signs: BP 130/80, pulse 112, resp 16 Pulse oximetry: 98 at admission Treatment: Continuous Pulse ox: 98 O2/Vent/BiPap: None Is there an additional diagnosis that is clinically appropriate for this patient? [ ] Acute Hypoxic Respiratory Failure (pO2 <60 mm Hg or SpO2 <91% on room air) [ ] Acute Hypercapnic Respiratory Failure (pCO2 >50 and pH <7.35) [ ] Acute on Chronic Respiratory Failure [ ] Chronic Respiratory Failure [ ] Acute Respiratory Distress [ ] Acute Respiratory Insufficiency [ ] Other Diagnosis, please specify [ ] Unable to determine MTDD
--- NOTE | 2020-11-24 07:19 | PN ---
PROGRESS NOTE DISCHARGE DIAGNOSIS: Acute on chronic respiratory failure. MMODL / IJN: [id number] /
--- NOTE | 2020-11-28 23:17 | PN ---
PROGRESS NOTE ADDENDUM: Please add to dictation: Acute on chronic respiratory failure. MMTEREZAL / IJN: [id number] /
== END 2020-11-15 11:51 | DRG 291 ==
LOC: EC 18:37 → 3SCARD 21:25
PROVIDERS: ADMIT Family Medicine; ATTEND Family Medicine
DX: I11.0 Hypertensive heart disease with heart failure (principal); J69.0 Pneumonitis due to inhalation of food and vomit; J96.20 Acute and chronic respiratory failure, unspecified whether with hypoxia or hypercapnia; I48.92 Unspecified atrial flutter; I69.354 Hemiplegia and hemiparesis following cerebral infarction affecting left non-dominant side; L03.311 Cellulitis of abdominal wall; K94.22 Gastrostomy infection; G93.40 Encephalopathy, unspecified; I48.0 Paroxysmal atrial fibrillation; I50.33 Acute on chronic diastolic (congestive) heart failure; E11.40 Type 2 diabetes mellitus with diabetic neuropathy, unspecified; E11.65 Type 2 diabetes mellitus with hyperglycemia; E78.5 Hyperlipidemia, unspecified; F03.90 Unspecified dementia, unspecified severity, without behavioral disturbance, psychotic disturbance, mood disturbance, and anxiety; I05.0 Rheumatic mitral stenosis; I25.10 Atherosclerotic heart disease of native coronary artery without angina pectoris; I27.20 Pulmonary hypertension, unspecified; Z20.822 Contact with and (suspected) exposure to COVID-19; I49.5 Sick sinus syndrome; I69.391 Dysphagia following cerebral infarction; J44.9 Chronic obstructive pulmonary disease, unspecified; R32 Unspecified urinary incontinence; R79.1 Abnormal coagulation profile; R06.03 Acute respiratory distress; Z74.01 Bed confinement status; Z79.01 Long term (current) use of anticoagulants; Z79.4 Long term (current) use of insulin; Z79.82 Long term (current) use of aspirin; Z79.84 Long term (current) use of oral hypoglycemic drugs; Z79.899 Other long term (current) drug therapy; Z80.0 Family history of malignant neoplasm of digestive organs; Z82.3 Family history of stroke; Z87.01 Personal history of pneumonia (recurrent); Z90.710 Acquired absence of both cervix and uterus; Z95.0 Presence of cardiac pacemaker; Z95.2 Presence of prosthetic heart valve; Y83.8 Other surgical procedures as the cause of abnormal reaction of the patient, or of later complication, without mention of misadventure at the time of the procedure; Z95.5 Presence of coronary angioplasty implant and graft; Z96.1 Presence of intraocular lens; Z99.81 Dependence on supplemental oxygen; Z93.1 Gastrostomy status
CPT/HCPCS: 36415; 70450; 71045; 74150; 80048; 80053; 81001; 83880; 84484; 85025; 85610; 85730; 87635; 93005; 94760; 99285

== ENCOUNTER 2020-11-17 05:11 | Inpatient (IN) | payer MEDICARE, OTHER ==
[2020-11-17] MEDS ORDERED: SODIUM CHLORIDE 0.9% 1,000 ML IV STA (05:13)
--- NOTE | 2020-11-17 05:25 | ED ---
SOB HPI - General Chief Complaint: Shortness of Breath Stated Complaint: CALLIE Time Seen by Provider: 11/17/20 05:13 Source: EMS, RN notes reviewed, old records reviewed Mode of arrival: EMS Limitations: altered mental status - History of Present Illness Initial Comments: This is a 75-year-old female to the emergency room today. Patient presents today for evaluation severe shortness of breath and hypoxia [facility] to facility question for pneumonia moaning and sepsis. Positive fever. Patient is a poor story was unable to provide history MD Complaint: shortness of breath, cough, anxiety -: unknown Severity: severe Severity scale (1-10): 10 Quality: aching Consistency: constant Improves With: nothing Worsens With: exertion, coughing, inspiration Known History Of: COPD Context: recent URI, recent illness Associated Symptoms: fever, cough, sputum production Treatments Prior to Arrival: oxygen - Related Data Home Medications Medication Instructions Recorded Confirmed Pravastatin Sodium [Pravachol] 40 mg PEG/G-TUBE HS@2100 05/20/17 11/09/20 levETIRAcetam [Keppra Oral 100 mg PEG/G-TUBE DAILY@0800 09/27/17 11/09/20 Solution] Aspirin 81 mg PEG/G-TUBE DAILY@0800 05/30/18 11/09/20 Acetaminophen Oral Susp [Tylenol] 640 mg PEG/G-TUBE Q6H PRN 12/25/19 11/09/20 Multivitamins, Thera Liquid 5 ml PEG/G-TUBE DAILY@1700 12/25/19 11/09/20 [Theragran Liquid (formulary)] bisacodyL [Dulcolax] 10 mg RECTAL DAILY PRN 12/25/19 11/09/20 Ipratropium-Albuterol Nebulize 3 ml INHALATION RT-QID PRN 06/11/20 11/09/20 [Duoneb 0.5 mg-3 mg/3 ml Soln] Na Phos,M-B/Na Phos,Di-Ba [Fleet 133 ml RECTAL DAILY PRN 06/11/20 11/09/20 Adult] INSULIN ASPART (NovoLOG) [NovoLOG See Protocol SQ ACHS 06/24/20 11/09/20 (formulary)] metFORMIN HCL [Glucophage] 500 mg PEG/G-TUBE BID@0800,1700 06/24/20 11/09/20 Metoprolol Tartrate [Lopressor] 100 mg PEG/G-TUBE 07/15/20 11/09/20 TID@0600,1400,2200 Gabapentin [Neurontin] 100 mg PEG/G-TUBE 09/15/20 11/09/20 TID@0600,1400,2099 Liquacel 30 ml PEG/G-TUBE TID@0800,1400,17009/15/20 11/09/20 Simethicone 40 mg PEG/G-TUBE BID@0800,17009/15/20 11/09/20 Biotene Dry Mouth Mouthwash 5 ml MUCOUS MEM TID@0600,1400,209910/18/20 11/09/20 Cholestyramine/Aspartame 4 gm PEG/G-TUBE HS@2300 10/18/20 11/09/20 [Cholestyramine Light Packet] Diltiazem Oral [Cardizem*] 60 mg PEG/G-TUBE TID@0600,1400,209910/18/20 11/09/20 Ferrous Sulfate 330 mg PEG/G-TUBE DAILY@1700 10/18/20 11/09/20 Insulin Detemir (Levemir) [Levemir] 40 unit SQ HS@209910/18/20 11/09/20 Nitroglycerin Sl Tabs [Nitrostat] 0.4 mg SL Q5M PRN 10/18/20 11/09/20 Voriconazole [Vfend] 300 mg PO BID@0800,209911/09/20 11/09/20 Previous Rx's Medication Instructions Recorded Loratadine [Claritin] 10 mg PEG/G-TUBE DAILY@1700 tab 06/14/20 Furosemide [Lasix] 40 mg PO DAILY #0 tab 11/14/20 Magnesium Hydroxide [Milk of 2,400 mg PEG/G-TUBE DAILY PRN ml 11/14/20 Magnesia Concentrate] Warfarin [Coumadin] 3 mg PO DAILY@1800 tab 11/14/20 Allergies Allergy/AdvReac Type Severity Reaction Status Date / Time ciprofloxacin [From Cipro] Allergy Rash/Hives Verified 11/09/20 20:09 ciprofloxacin HCl Allergy Rash/Hives Verified 11/09/20 20:09 [From Cipro] Quinolones Allergy Unknown Verified 11/09/20 20:09 Review of Systems ROS Statement: Those systems with pertinent positive or pertinent negative responses have been documented in the HPI. ROS Other: All systems not noted in ROS Statement are negative. Past Medical History Past Medical History: Atrial Fibrillation, Atrial Flutter, Asthma, Cancer, Heart Failure, CVA/TIA, Dementia, Diabetes Mellitus, GERD/Reflux, GI Bleed, Hyperlipidemia, Hypertension, Pneumonia, Sleep Apnea/CPAP/BIPAP Additional Past Medical History / Comment(s): Verified with [facility] papers r/t son Jose Rafael being unsure of history. Jose Rafael states he is also pt's DPOA. 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, post traumatic seizures, History of Any Multi-Drug Resistant Organisms: MRSA Date of last positivie culture/infection: 08/21/20 MDRO Source:: MRSA URINE Past Surgical History: Breast Surgery, Cardiac Valve Replacement, Heart Catheterization With Stent, Hysterectomy, Orthopedic Surgery, Pacemaker, Tonsillectomy Additional Past Surgical History / Comment(s): Peg tube, mechanical mitral valve 2000, polypectomy spinal cord/cyst removed, TEEs, CVNs, colonoscopies, bilateral cataract removal/lens implants, L rotator cuff repair, R femur fracture with IM hip/screw/nail, L breast lumpectomy, Past Anesthesia/Blood Transfusion Reactions: No Reported Reaction Date of Last Stent Placement:: 2006 Type of Cardiac Device: Permanent Pacemaker Device Placement Date:: 2009 Past Psychological History: Depression Smoking Status: Unknown if ever smoked Past Alcohol Use History: Unable to Obtain Past Drug Use History: Unable to Obtain - Past Family History Father Family Medical History: GI Bleed Additional Family Medical History / Comment(s): OF BLEEDING ULCER AT AGE 64 Mother Family Medical History: Cancer, CVA/TIA Additional Family Medical History / Comment(s): HX STROKES, COLON CANCER General Exam Limitations: altered mental status General appearance: anxious, lethargic, in distress, cachectic Head exam: Present: atraumatic, normocephalic, normal inspection Eye exam: Present: normal appearance, PERRL, EOMI. Absent: scleral icterus, conjunctival injection, periorbital swelling ENT exam: Present: normal exam, mucous membranes moist Neck exam: Present: normal inspection. Absent: tenderness, meningismus, lymphadenopathy Respiratory exam: Present: respiratory distress, rales, rhonchi, accessory muscle use, decreased breath sounds, prolonged expiratory. Absent: wheezes, stridor Cardiovascular Exam: Present: regular rate, normal rhythm, normal heart sounds. Absent: systolic murmur, diastolic murmur, rubs, gallop, clicks GI/Abdominal exam: Present: soft, normal bowel sounds. Absent: distended, tenderness, guarding, rebound, rigid Extremities exam: Present: normal inspection, full ROM, normal capillary refill. Absent: tenderness, pedal edema, joint swelling, calf tenderness Back exam: Present: normal inspection Neurological exam: Present: alert, oriented X3, CN II-XII intact Psychiatric exam: Present: normal affect, normal mood Skin exam: Present: warm, dry, intact, normal color. Absent: rash Course Vital Signs 11/17/20 11/17/20 05:22 05:47 Temperature 99.9 F H Pulse Rate 64 Respiratory 16 28 H Rate Blood Pressure 107/54 O2 Sat by Pulse 82 L Oximetry - Reevaluation(s) Reevaluation #1: 11/17/20 06:04 Medical record is reviewed Reevaluation #2: 11/17/20 06:04 Patient's pulse ox is improved with oxygen administration Reevaluation #3: 11/17/20 06:04 Patient remains in mild distress but now requiring BiPAP - Consultations Consultation #1: Spoke with Dr. Gomez who agrees to admit the patient Medical Decision Making - EKG Data -: EKG Interpreted by Me (EKG shows junctional rhythm of 53 QRS 114 QTc of 452) - Radiology Data Radiology results: report reviewed (CXR pulm edema, sob), image reviewed Critical Care Time Critical Care Time: Yes Total Critical Care Time: 31 Disposition Clinical Impression: Pulmonary congestion, Acute pulmonary edema, General weakness, Hypoxia Disposition: ADMITTED IP TO THIS [facility] Condition: Serious Is patient prescribed a controlled substance at d/c from ED?: No Referrals: Luis A Gomez MD [Primary Care Provider] - 1-2 days
--- NOTE | 2020-11-17 05:47 | XR ---
EXAMINATION TYPE: XR chest 1V DATE OF EXAM: 11/17/2020 COMPARISON: 11/09/2020 HISTORY: Weakness TECHNIQUE: Single view FINDINGS: There is right axillary pacemaker noted. There are sternal wires. There is some pulmonary i nterstitial and airspace edema. Heart appears enlarged. There are clips at the left axilla. There is bronchial cartilage calcification. Bony thorax is intact. I see no evidence of pleural effusion.. IMPRESSION: There is increased pulmonary interstitial edema compared to old exam. This could be acute heart failure or interstitial pneumonia.
[2020-11-17] MEDS ORDERED: AZITHROMYCIN 500 MG in SODIUM CHLORIDE 0.9% 250 ML IVPB STA (06:01)
[2020-11-17] MEDS ORDERED: PIPERACILLIN-TAZOBACTAM 3.375 GM in SODIUM CHLORIDE 0.9% 100 ML IVPB STA (06:01)
[2020-11-17] MEDS ORDERED: ACETAMINOPHEN TAB 500 MG TAB PO STA (06:01)
[2020-11-17] MEDS ORDERED: IPRATROPIUM-ALBUTEROL 3 ML NEB INHALATION STA (06:01)
[2020-11-17] MEDS ORDERED: PNEUMONIA PROTOCOL UTILIZED 1 EACH MISC PO PRN (06:01)
[2020-11-17] MEDS ORDERED: IPRATROPIUM-ALBUTEROL 3 ML NEB INHALATION PRN (06:01)
[2020-11-17] MEDS ORDERED: ACETAMINOPHEN SUPPOSITORY 650 MG SUPP RECTAL PRN (06:03)
[2020-11-17] MEDS ORDERED: ACETAMINOPHEN SUPPOSITORY 650 MG SUPP RECTAL STA (06:03)
[2020-11-17] MEDS ORDERED: ALBUTEROL HFA INHALER INHALATION STA (06:20)
[2020-11-17 06:31] LABS: Anisocytosis Slight; Basophils # (A) 0.1 k/uL (0-0.2); Basophils % (A) 1 %; Eosinophils # (A) 0.1 k/uL (0-0.7); Eosinophils % (A) 0 %; HCT 32.7 % (34.0-46.0); HGB 9.7 gm/dL (11.4-16.0); Hypochromasia Marked; Lymphocytes # (A) 0.8 k/uL (1.0-4.8); Lymphocytes % (A) 5 %; MCHC 29.7 g/dL (31.0-37.0); MCV 97.7 fL (80.0-100.0); Macrocytosis Moderate; Mean Platelet Volume 9.5; Monocytes # (A) 1.1 k/uL (0-1.0); Monocytes % (A) 6 %; Neutrophils # (A) 14.9 k/uL (1.3-7.7); Neutrophils % (A) 87 %; Platelet Count 377 k/uL (150-450); Poikilocytosis Slight; RBC 3.35 m/uL (3.80-5.40)
[2020-11-17 06:43] LABS: Albumin 3.6 g/dL (3.5-5.0); C Reactive Protein 3.8 mg/dL (<1.0); Calcium 9.4 mg/dL (8.4-10.2); Magnesium 2.7 mg/dL (1.6-2.3); Phosphorus 3.9 mg/dL (2.5-4.5); Total Bilirubin 0.5 mg/dL (0.2-1.3); Total Protein 7.1 g/dL (6.3-8.2)
[2020-11-17 06:58] LABS: Potassium 6.7 mmol/L (3.5-5.1)
[2020-11-17 07:12] LABS: INR 2.5 (<1.2); Partial Thromboplastin Time 34.8 sec (22.0-30.0); Prothrombin Time 24.3 sec (9.0-12.0)
[2020-11-17 07:20] LABS: Amorphous Sediment,Urine Rare /hpf; Appearance,Urine Turbid (Clear); Bacteria,Urine Few /hpf; Bilirubin,Urine Negative (Negative); Blood,Urine Large (Negative); Color,Urine Red; Glucose,Urine (UA) 1+ (Negative); Hyaline Casts,Urine 28 /lpf (0-2); Ketones,Urine Negative (Negative); Leukocyte Esterase,Urine Large (Negative); Mucus,Urine Few /hpf; Nitrite,Urine Negative (Negative); Protein,Urine 1+ (Negative); RBC,Urine >182 /hpf (0-5); Specific Gravity,Urine 1.021 (1.001-1.035); WBC,Urine >182 /hpf (0-5)
[2020-11-17] MEDS ORDERED: ALBUTEROL NEBULIZED 2.5 MG/3 ML INHALATION STA (07:20)
[2020-11-17] MEDS ORDERED: CALCIUM GLUCONATE 2 GM in SODIUM CHLORIDE 0.9% 100 ML IVPB ONE (07:20)
[2020-11-17] MEDS ORDERED: INSULIN REGULAR 100 UNIT/ML VIAL (IV) IV ONE (07:20)
[2020-11-17] MEDS ORDERED: CALCIUM CHLORIDE 100 MG/ML 10 ML SYRINGE IVP STA (07:20)
[2020-11-17] MEDS ORDERED: DEXTROSE 50% SYRINGE 50 ML IVP STA (07:20)
[2020-11-17] MEDS ORDERED: FUROSEMIDE 10 MG/ML 10 ML VIAL IV STA (07:20)
[2020-11-17] MEDS ORDERED: SODIUM BICARB 8.4% 50 ML SYR (1 MEQ/ML) IV STA (07:20)
[2020-11-17 07:28] VITALS: RESP 24
[2020-11-17] MEDS ORDERED: FUROSEMIDE 10 MG/ML 4 ML VIAL IV SCH (08:00)
[2020-11-17 10:45] LABS: ALT 47 U/L (4-34); AST 71 U/L (14-36); African American GFR (CKD) >90 (>60 ml/min/1.73 sqM); Albumin 2.5 g/dL (3.5-5.0); Alkaline Phosphatase 130 U/L (38-126); Anion Gap 6 mmol/L; Blood Urea Nitrogen 43 mg/dL (7-17); Carbon Dioxide 26 mmol/L (22-30); Chloride 106 mmol/L (98-107); Glucose 298 mg/dL (74-99); Non-African American GFR(CKD) 89 (>60 ml/min/1.73 sqM); Potassium 4.5 mmol/L (3.5-5.1); Sodium 138 mmol/L (137-145); Total Bilirubin 0.4 mg/dL (0.2-1.3); Total Protein 5.3 g/dL (6.3-8.2)
--- NOTE | 2020-11-17 11:09 | P.CRDCN ---
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 She does not follow regularly in the office with a line up examiner since 2018. We have been asked to see in consultation for heart failure. Is sent back from [facility] secondary to cough and shortness of breath. She was just discharged from the hospital on 11/15/20. We saw the patient last admission for atrial fibrillation with rapid ventricular response and congestive heart failure. Patient is mostly unresponsive during previous admission as well. Patient was diuresed at that time, her INR was subtherapeutic and was on a heparin drip bridge to coumadin. She was discharged on PO Lasix 40mg BID and warfarin 3mg daily. Patieent seen and examined in the ICU, she is unresponsive, lethargic, not able to get an accurate review of systems. Chest x-ray reveals pulmonary interstitial edema increased compared to old exam. Laboratory data reviewed, WBC 17, hemoglobin 9.7, platelets 277, INR 2.5, sodium 138, potassium 4.5, BUN 43, serum creatinine 0.6, magnesium 2.9, troponin 0.04, AST 71, PLT 47, alkaline phosphatase 130 Current daily cardiac medications include warfarin 3 mg daily, Lopressor 100 mg 3 times a day, diltiazem 60 mg 3 times a day, pravastatin 40 mg daily and aspirin 81 mg daily. Most recent echocardiogram obtained in June 2020 revealed preserved LV systolic function with ejection fraction 55-60%, mechanical mitral valve is well seated with mild regurgitation noted, mild pulmonary hypertension with RVSP of 37 mmHg. REVIEW OF SYSTEMS At the time of my exam: not able to get an accurate review of systems due to mental status PHYSICAL EXAMINATION Blood pressure CONSTITUTIONAL: No apparent distress. HEENT: Head is normocephalic. Pupils are equal, round. Sclerae anicteric. Mucous membranes of the mouth are moist. No JVD. No carotid bruit. CHEST EXAMINATION: Scattered rhonchi and basilar rales. No chest wall tenderness is noted on palpation or with deep breathing. HEART EXAMINATION: Irregular rate and rhythm. S1, S2 heard. Mechanical click at the apex, systolic ejection murmur noted, no gallops or rub. ABDOMEN: Soft, nontender. EXTREMITIES: 2+ peripheral pulses, bilateral lower extremity nonpitting edema and no calf tenderness. NEUROLOGIC EXAMINATION: Patient is lethargic, not oriented. ASSESSMENT Acute on Chronic diastolic heart failure Paroxysmal atrial fibrillation on coumadin INR 2.5. Mechanical mitral valve replacement Hypertension Sick sinus syndrome status post permanent pacemaker implantation History of CVA Chronic hypoxic respiratory failure Leukocytosis Hyperkalemia Elevated liver enzymes Elevated troponin not consistent with acute coronary syndrome PLAN From a cardiology perspective, patient has been declining and not as responsive every admission when cardiology is consulted. We recommend continue current medical management and discussion about comfort care. No further changes or cardiac testing indicated at this time. We will follow the patient as needed. Please reach out with further questions or concerns. Nurse Practitioner note has been reviewed, I agree with a documented findings and plan of care. Patient was seen and examined. Past Medical History Past Medical History: Atrial Fibrillation, Atrial Flutter, Asthma, Cancer, Heart Failure, CVA/TIA, Dementia, Diabetes Mellitus, GERD/Reflux, GI Bleed, Hyperlipidemia, Hypertension, Pneumonia, Sleep Apnea/CPAP/BIPAP Additional Past Medical History / Comment(s): Verified with [employer] papers r/t son Jose Rafael being unsure of history. Jose Rafael states he is also pt's DPOA. 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, post traumatic seizures, History of Any Multi-Drug Resistant Organisms: MRSA Date of last positivie culture/infection: 08/21/20 MDRO Source:: MRSA URINE Past Surgical History: Breast Surgery, Cardiac Valve Replacement, Heart Catheterization With Stent, Hysterectomy, Orthopedic Surgery, Pacemaker, Tonsillectomy Additional Past Surgical History / Comment(s): Peg tube, mechanical mitral valve 2000, polypectomy spinal cord/cyst removed, TEEs, CVNs, colonoscopies, bilateral cataract removal/lens implants, L rotator cuff repair, R femur fracture with IM hip/screw/nail, L breast lumpectomy, Past Anesthesia/Blood Transfusion Reactions: No Reported Reaction Date of Last Stent Placement:: 2006 Type of Cardiac Device: Permanent Pacemaker Device Placement Date:: 2009 Past Psychological History: Depression Smoking Status: Unknown if ever smoked Past Alcohol Use History: Unable to Obtain Past Drug Use History: Unable to Obtain - Past Family History Father Family Medical History: GI Bleed Additional Family Medical History / Comment(s): OF BLEEDING ULCER AT AGE 64 Mother Family Medical History: Cancer, CVA/TIA Additional Family Medical History / Comment(s): HX STROKES, COLON CANCER Medications and Allergies Home Medications Medication Instructions Recorded Confirmed Type Pravastatin Sodium [Pravachol] 40 mg PEG/G-TUBE HS@209905/20/17 11/17/20 History levETIRAcetam [Keppra Oral 100 mg PEG/G-TUBE DAILY@0800 09/27/17 11/17/20 History Solution] Aspirin 81 mg PEG/G-TUBE DAILY@0800 05/30/18 11/17/20 History Multivitamins, Thera Liquid 5 ml PEG/G-TUBE DAILY@1700 12/25/19 11/17/20 History [Theragran Liquid (formulary)] Loratadine [Claritin] 10 mg PEG/G-TUBE DAILY@1700 tab 06/14/20 11/17/20 Rx metFORMIN HCL [Glucophage] 500 mg PEG/G-TUBE BID@0800,1700 06/24/20 11/17/20 History Simethicone 40 mg PEG/G-TUBE BID@0800,1700 09/15/20 11/17/20 History Cholestyramine/Aspartame 4 gm PEG/G-TUBE HS@2300 10/18/20 11/17/20 History [Cholestyramine Light Packet] Ferrous Sulfate 330 mg PEG/G-TUBE DAILY@1700 10/18/20 11/17/20 History Insulin Detemir (Levemir) [Levemir] 40 unit SQ HS@2100 10/18/20 11/17/20 History Acetaminophen Oral Susp [Tylenol] 540 mg PEG/G-TUBE Q6H PRN 11/17/20 11/17/20 History Furosemide [Lasix] 40 mg PEG/G-TUBE DAILY@0800 11/17/20 11/17/20 History Gabapentin [Neurontin] 100 mg PEG/G-TUBE 11/17/20 11/17/20 History TID@0600,1400,2100 INSULIN ASPART (NovoLOG) [NovoLOG See Protocol SQ ACHS 11/17/20 11/17/20 History (formulary)] Ipratropium-Albuterol Nebulize 3 ml INHALATION RT-QID PRN 11/17/20 11/17/20 History [Duoneb 0.5 mg-3 mg/3 ml Soln] Magnesium Hydroxide [Milk of 2,400 mg PEG/G-TUBE DAILY PRN 11/17/20 11/17/20 Hi story Magnesia] Metoprolol Tartrate [Lopressor] 100 mg PEG/G-TUBE 11/17/20 11/17/20 History TID@0600,1400,2200 Na Phos,M-B/Na Phos,Di-Ba [Fleet 133 ml RECTAL DAILY PRN 11/17/20 11/17/20 History Adult] Nitroglycerin Sl Tabs [Nitrostat] 0.4 mg SUBLINGUAL Q5M PRN 11/17/20 11/17/20 History Saliva Stimulant Agents Comb.3 5 ml MUCOUS MEM TID@0600,1400,2100 11/17/20 11/17/20 History [Biotene Moisturizing Mouth] Voriconazole [Vfend] 300 mg PEG/G-TUBE BID@0600,2100 11/17/20 11/17/20 History Warfarin [Coumadin] 3 mg PEG/G-TUBE DAILY@1700 11/17/20 11/17/20 History bisacodyL [Dulcolax] 10 mg RECTAL DAILY PRN 11/17/20 11/17/20 History dilTIAZem HCL 60 mg PEG/G-TUBE TID@0600,1400,2100 11/17/20 11/17/20 History Allergies Allergy/AdvReac Type Severity Reaction Status Date / Time ciprofloxacin [From Cipro] Allergy Rash/Hives Verified 11/17/20 06:43 ciprofloxacin HCl Allergy Rash/Hives Verified 11/17/20 06:43 [From Cipro] Quinolones Allergy Unknown Verified 11/17/20 06:43 Physical Exam Vitals: Vital Signs Temp Pulse Resp BP Pulse Ox 11/17/20 07:26 98.7 F 60 24 151/46 98 11/17/20 06:24 99.0 F 60 18 154/74 95 11/17/20 05:47 28 H 11/17/20 05:22 99.9 F H 64 16 107/54 82 L Intake and Output 11/16/20 11/17/20 11/17/20 22:59 06:59 14:59 Other: Weight 108.862 kg Results 11/17/20 05:32 11/17/20 10:06 Cardiac Enzymes 11/17/20 11/17/20 Range/Units 05:32 05:32 AST 101 H (14-36) U/L Troponin I 0.049 H* (0.000-0.034) ng/mL Coagulation 11/17/20 Range/Units 05:32 PT 24.3 H (9.0-12.0) sec APTT 34.8 H (22.0-30.0) sec CBC 11/17/20 Range/Units 05:32 WBC 17.0 H (3.8-10.6) k/uL RBC 3.35 L (3.80-5.40) m/uL Hgb 9.7 L (11.4-16.0) gm/dL Hct 32.7 L (34.0-46.0) % Plt Count 377 (150-450) k/uL Comprehensive Metabolic Panel 11/17/20 Range/Units 05:32 Sodium 132 L (137-145) mmol/L Potassium 6.7 H* (3.5-5.1) mmol/L Chloride 93 L (98-107) mmol/L Carbon Dioxide 30 (22-30) mmol/L BUN 55 H (7-17) mg/dL Creatinine 0.82 (0.52-1.04) mg/dL Glucose 409 H (74-99) mg/dL Calcium 9.4 (8.4-10.2) mg/dL AST 101 H (14-36) U/L ALT 63 H (4-34) U/L Alkaline Phosphatase 201 H (38-126) U/L Total Protein 7.1 (6.3-8.2) g/dL Albumin 3.6 (3.5-5.0) g/dL Current Medications Generic Name Dose Route Start Last Admin Trade Name Freq PRN Reason Stop Dose Admin Acetaminophen 650 mg 11/17/20 06:03 Acetaminophen Suppository 650 Mg Supp RECTAL Q6HR PRN Fever and/ or Pain Albuterol/Ipratropium 3 ml 11/17/20 06:01 Ipratropium-Albuterol 3 Ml Neb INHALATION RT-Q4H PRN shortness of breath Sodium Chloride 1,000 mls @ 130 mls/hr 11/17/20 05:13 Saline 0.9% IV 11/17/20 12:54 .[id number] STA Azithromycin 500 mg/ Sodium 250 mls @ 250 mls/hr 11/18/20 09:00 Chloride IVPB 11/21/20 09:59 DAILY JM Piperacillin Sod/Tazobactam 100 mls @ 25 mls/hr 11/17/20 08:00 Sod 3.375 gm/ Sodium Chloride IVPB 11/24/20 08:01 Q8HR JM Calcium Gluconate 2 gm/ Sodium 120 mls @ 100 mls/hr 11/17/20 07:20 Chloride IVPB 11/17/20 08:31 ONCE ONE Miscellaneous Information 1 each 11/17/20 06:01 Pneumonia Protocol Utilized 1 Each Misc PO ONCE PRN Per Protocol Intake and Output 11/16/20 11/17/20 11/17/20 22:59 06:59 14:59 Other: Weight 108.862 kg 11/17/20 05:32 11/17/20 05:32
--- NOTE | 2020-11-17 12:49 | P.HPIM ---
History of Present Illness H&P Date: 11/17/20 This is a 75-year-old female who is a resident at [facility] and follows with primary care physician Dr. Gomez and was brought to the emergency department for increasing shortness of breath and hypoxia. Patient's CODE STATUS at [facility] is no code and family would like the patient to return to [facility] with hospice in [facility] hospice has been contacted and consent and contracts being obtained by son. Patient will be returning to [facility] with hospice being started and comfort measures only. Patient has a past medical history of atrial fibrillation/flutter, asthma, cancer, diastolic heart failure, CVA with TIA, dementia, diabetes mellitus, acid reflux, hyperlipidemia, hypertension, frequent admissions with pneumonia, sleep apnea and uses a CPAP and is oxygen dependent. Patient continues with left-sided weakness and hemiplegia and hemiparesis due to CVA. Patient had a recent hospitalization for PEG tube infection and was recently discharged back to [facility]. Patient apparently became more hypoxic and short of breath and was sent to the emergency department via [facility] for further evaluation. Chest x-ray on admission shows increased pulmonary and so social edema compared to previous exam that could be related to acute heart failure or interstitial pneumonia. Patient was started on IV antibiotic in the form of Zithromax and Zosyn and cardiology and pulmonary consulted. White blood count on admission is 17.0 hemoglobin is 9.7, platelets are 377, INR is 2.5, sodium is 132, potassium is 6.7, current creatinine is 0.82, blood sugar was 409, magnesium is 2.7, LFTs mildly elevated, troponin was positive at 0.049, CRP is 3.8, BNP is 1830. Urinalysis was done that was turbid showing large blood and large leukocytes. COVID-19 was negative. Review of Systems ROS unobtainable: due to mental status Past Medical History Past Medical History: Atrial Fibrillation, Atrial Flutter, Asthma, Cancer, Heart Failure, CVA/TIA, Dementia, Diabetes Mellitus, GERD/Reflux, GI Bleed, Hyper lipidemia, Hypertension, Pneumonia, Sleep Apnea/CPAP/BIPAP Additional Past Medical History / Comment(s): Verified with [employer] papers r/t son Jose Rafael being unsure of history. Jose Rafael states he is also pt's DPOA. 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, post traumatic seizures, History of Any Multi-Drug Resistant Organisms: MRSA Date of last positivie culture/infection: 08/21/20 MDRO Source:: MRSA URINE Past Surgical History: Breast Surgery, Cardiac Valve Replacement, Heart Catheterization With Stent, Hysterectomy, Orthopedic Surgery, Pacemaker, Tonsillectomy Additional Past Surgical History / Comment(s): Peg tube, mechanical mitral valve 2001, polypectomy spinal cord/cyst removed, TEEs, CVNs, colonoscopies, bilateral cataract removal/lens implants, L rotator cuff repair, R femur fracture with IM hip/screw/nail, L breast lumpectomy, Past Anesthesia/Blood Transfusion Reactions: No Reported Reaction Date of Last Stent Placement:: 2006 Type of Cardiac Device: Permanent Pacemaker Device Placement Date:: 2009 Past Psychological History: Depression Smoking Status: Unknown if ever smoked Past Alcohol Use History: Unable to Obtain Past Drug Use History: Unable to Obtain - Past Family History Father Family Medical History: GI Bleed Additional Family Medical History / Comment(s): OF BLEEDING ULCER AT AGE 64 Mother Family Medical History: Cancer, CVA/TIA Additional Family Medical History / Comment(s): HX STROKES, COLON CANCER Medications and Allergies Home Medications Medication Instructions Recorded Confirmed Type Pravastatin Sodium [Pravachol] 40 mg PEG/G-TUBE HS@2100 05/20/17 11/17/20 History levETIRAcetam [Keppra Oral 100 mg PEG/G-TUBE DAILY@0800 09/27/17 11/17/20 History Solution] Aspirin 81 mg PEG/G-TUBE DAILY@0800 05/30/18 11/17/20 History Multivitamins, Thera Liquid 5 ml PEG/G-TUBE DAILY@1700 12/25/19 11/17/20 History [Theragran Liquid (formulary)] Loratadine [Claritin] 10 mg PEG/G-TUBE DAILY@1700 tab 06/14/20 11/17/20 Rx metFORMIN HCL [Glucophage] 500 mg PEG/G-TUBE BID@0800,1700 06/24/20 11/17/20 History Simethicone 40 mg PEG/G-TUBE BID@0800,1700 09/15/20 11/17/20 History Cholestyramine/Aspartame 4 gm PEG/G-TUBE HS@2300 10/18/20 11/17/20 History [Cholestyramine Light Packet] Ferrous Sulfate 330 mg PEG/G-TUBE DAILY@1700 10/18/20 11/17/20 History Insulin Detemir (Levemir) [Levemir] 40 unit SQ HS@2100 10/18/20 11/17/20 History Acetaminophen Oral Susp [Tylenol] 540 mg PEG/G-TUBE Q6H PRN 11/17/20 11/17/20 History Furosemide [Lasix] 40 mg PEG/G-TUBE DAILY@0800 11/17/20 11/17/20 History Gabapentin [Neurontin] 100 mg PEG/G-TUBE 11/17/20 11/17/20 History TID@0600,1400,2100 INSULIN ASPART (NovoLOG) [NovoLOG See Protocol SQ ACHS 11/17/20 11/17/20 History (formulary)] Ipratropium-Albuterol Nebulize 3 ml INHALATION RT-QID PRN 11/17/20 11/17/20 History [Duoneb 0.5 mg-3 mg/3 ml Soln] Magnesium Hydroxide [Milk of 2,400 mg PEG/G-TUBE DAILY PRN 11/17/20 11/17/20 History Magnesia] Metoprolol Tartrate [Lopressor] 100 mg PEG/G-TUBE 11/17/20 11/17/20 History TID@0600,1400,2200 Na Phos,M-B/Na Phos,Di-Ba [Fleet 133 ml RECTAL DAILY PRN 11/17/20 11/17/20 History Adult] Nitroglycerin Sl Tabs [Nitrostat] 0.4 mg SUBLINGUAL Q5M PRN 11/17/20 11/17/20 History Saliva Stimulant Agents Comb.3 5 ml MUCOUS MEM TID@0600,1400,2100 11/17/20 11/17/20 History [Biotene Moisturizing Mouth] Voriconazole [Vfend] 300 mg PEG/G-TUBE BID@0600,2100 11/17/20 11/17/20 History Warfarin [Coumadin] 3 mg PEG/G-TUBE DAILY@1700 11/17/20 11/17/20 History bisacodyL [Dulcolax] 10 mg RECTAL DAILY PRN 11/17/20 11/17/20 History dilTIAZem HCL 60 mg PEG/G-TUBE TID@0600,1400,2100 11/17/20 11/17/20 History Allergies Allergy/AdvReac Type Severity Reaction Status Date / Time ciprofloxacin [From Cipro] Allergy Rash/Hives Verified 11/17/20 06:43 ciprofloxacin HCl Allergy Rash/Hives Verified 11/17/20 06:43 [From Cipro] Quinolones Allergy Unknown Verified 11/17/20 06:43 Physical Exam Vitals: Vital Signs Temp Pulse Resp BP Pulse Ox 11/17/20 11:12 60 24 129/50 100 11/17/20 09:04 60 24 151/60 99 11/17/20 08:04 99 11/17/20 07:26 98.7 F 60 24 151/46 98 11/17/20 06:24 99.0 F 60 18 154/74 95 11/17/20 05:47 28 H 11/17/20 05:22 99.9 F H 64 16 107/54 82 L Intake and Output 11/16/20 11/17/20 11/17/20 22:59 06:59 14:59 Other: Weight 108.862 kg Gen: This is a 75-year-old female minimally responsive, alert and oriented 1, morbidly obese, ill-appearing, appears comfortable in no acute distress HEENT: Head is atraumatic, normocephalic. Pupils equal, round. Sclerae is anicteric. NECK: Supple. No JVD. No lymphadenopathy. No thyromegaly. LUNGS: Diminished breath sounds bilaterally with some scattered rhonchi noted. No intercostal retractions. HEART: S1, S2 are muffled ABDOMEN: Soft. Obese. Bowel sounds are present. No masses. No tenderness. No guarding or rigidity noted on palpation EXTREMITIES: No pedal edema. No calf tenderness. Right foot drop NEUROLOGICAL: Patient is asleep, minimally arousable and mumbling and incoherent when responding, alert and oriented x1. Diffusely weak. Results CBC & Chem 7: 11/17/20 05:32 11/17/20 10:06 Labs: Abnormal Lab Results - Last 24 Hours (Table) 11/17/20 11/17/20 11/17/20 Range/Units 05:32 05:32 05:32 WBC 17.0 H (3.8-10.6) k/uL RBC 3.35 L (3.80-5.40) m/uL Hgb 9.7 L (11.4-16.0) gm/dL Hct 32.7 L (34.0-46.0) % MCHC 29.7 L (31.0-37.0) g/dL RDW 20.0 H (11.5-15.5) % Neutrophils # 14.9 H (1.3-7.7) k/uL Lymphocytes # 0.8 L (1.0-4.8) k/uL Monocytes # 1.1 H (0-1.0) k/uL PT 24.3 H (9.0-12.0) sec INR 2.5 H (<1.2) APTT 34.8 H (22.0-30.0) sec Sodium 132 L (137-145) mmol/L Potassium 6.7 H* (3.5-5.1) mmol/L Chloride 93 L (98-107) mmol/L BUN 55 H (7-17) mg/dL Glucose 409 H (74-99) mg/dL Magnesium 2.7 H (1.6-2.3) mg/dL AST 101 H (14-36) U/L ALT 63 H (4-34) U/L Alkaline Phosphatase 201 H (38-126) U/L Troponin I (0.000-0.034) ng/mL C-Reactive Protein 3.8 H (<1.0) mg/dL Total Protein (6.3-8.2) g/dL Albumin (3.5-5.0) g/dL Urine Appearance (Clear) Urine Protein (Negative) Urine Glucose (UA) (Negative) Urine Blood (Negative) Ur Leukocyte Esterase (Negative) Urine RBC (0-5) /hpf Urine WBC (0-5) /hpf Urine WBC Clumps (None) /hpf Amorphous Sediment (None) /hpf Urine Bacteria (None) /hpf Hyaline Casts (0-2) /lpf Urine Mucus (None) /hpf 11/17/20 11/17/20 11/17/20 Range/Units 05:32 06:25 10:06 WBC (3.8-10.6) k/uL RBC (3.80-5.40) m/uL Hgb (11.4-16.0) gm/dL Hct (34.0-46.0) % MCHC (31.0-37.0) g/dL RDW (11.5-15.5) % Neutrophils # (1.3-7.7) k/uL Lymphocytes # (1.0-4.8) k/uL Monocytes # (0-1.0) k/uL PT (9.0-12.0) sec INR (<1.2) APTT (22.0-30.0) sec Sodium (137-145) mmol/L Potassium (3.5-5.1) mmol/L Chloride (98-107) mmol/L BUN 43 H (7-17) mg/dL Glucose 298 H (74-99) mg/dL Magnesium (1.6-2.3) mg/dL AST 71 H (14-36) U/L ALT 47 H (4-34) U/L Alkaline Phosphatase 130 H (38-126) U/L Troponin I 0.049 H* (0.000-0.034) ng/mL C-Reactive Protein (<1.0) mg/dL Total Protein 5.3 L (6.3-8.2) g/dL Albumin 2.5 L (3.5-5.0) g/dL Urine Appearance Turbid H (Clear) Urine Protein 1+ H (Negative) Urine Glucose (UA) 1+ H (Negative) Urine Blood Large H (Negative) Ur Leukocyte Esterase Large H (Negative) Urine RBC >182 H (0-5) /hpf Urine WBC >182 H (0-5) /hpf Urine WBC Clumps Many H (None) /hpf Amorphous Sediment Rare H (None) /hpf Urine Bacteria Few H (None) /hpf Hyaline Casts 28 H (0-2) /lpf Urine Mucus Few H (None) /hpf Microbiology - Last 24 Hours (Table) 11/17/20 06:25 Urine Culture - Preliminary Urine,Catheterized Assessment and Plan Assessment: Chronic hypoxic respiratory failure, oxygen dependent nasal cannula in the outpatient setting Leukocytosis Acute urinary tract infection most likely related to chronic indwelling Gross catheter Paroxysmal atrial fibrillation Hyperkalemia Hyponatremia, most likely hypervolemic hyponatremia Elevated troponin, ruled out acute coronary syndrome Acute on chronic diastolic congestive heart failure, acute exacerbation Diabetes mellitus2 insulin-dependent, uncontrolled with hyperglycemia Hypertension sick sinus syndrome status post permanent pacemaker 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 [facility] has signed on an plan is to discharge back to [facility] with hospice and comfort measures only. Prognosis is extremely poor. [facility] arranging for transportation back to [facility] today.
--- NOTE | 2020-11-17 13:17 | P.DS ---
Providers Date of admission: 11/17/20 06:02 Expected date of discharge: 11/17/20 Attending physician: Luis A Gomez Consults: 11/17/20 06:02 Consult Physician Routine Consulting Provider: Jalen Roth Consult Reason/Comments: chf,hypxia Do you want consulting provider notified?: Yes 11/17/20 07:33 Consult Physician Routine Consulting Provider: Juvencio Silva Consult Reason/Comments: dyspnea Do you want consulting provider notified?: Yes Primary care physician: Luis A Gomez Hospital Course: Final diagnosis Chronic hypoxic respiratory failure, oxygen dependent nasal cannula in the outpatient setting Leukocytosis Acute urinary tract infection most likely related to chronic indwelling Gross catheter Paroxysmal atrial fibrillation Hyperkalemia Hyponatremia, most likely hypervolemic hyponatremia Elevated troponin, ruled out acute coronary syndrome Acute on chronic diastolic congestive heart failure, acute exacerbation Diabetes mellitus2 insulin-dependent, uncontrolled with hyperglycemia Hypertension sick sinus syndrome status post permanent pacemaker History of CVA/TIA with residual left-sided weakness and hemiplegia Right foot drop Sleep apnea uses CPAP No code Discharge disposition Patient is being discharged in a stable condition with guarded prognosis to [facility] with [facility] hospice and comfort measures only. Patient will follow-up with Dr. Rodriguez in the outpatient setting upon discharge. Patient is to continue with comfort medications only and prescriptions have been provided to [facility]. Total time taken is greater than 35 minutes. Hospital course This is a 75-year-old female who is a resident at [facility] and follows with primary care physician Dr. Gomez and was brought to the emergency department for increasing shortness of breath and hypoxia. Patient's CODE STATUS at [facility] is no code and family would like the patient to return to [facility] with hospice in [facility] hospice has been contacted and consent and contracts being obtained by son. Patient will be returning to [facility] with hospice being started and comfort measures only. Patient has a past medical history of atrial fibrillation/flutter, asthma, cancer, diastolic heart failure, CVA with TIA, dementia, diabetes mellitus, acid reflux, hyperlipidemia, hypertension, frequent admissions with pneumonia, sleep apnea and uses a CPAP and is oxygen dependent. Patient continues with left-sided weakness and hemiplegia and hemiparesis due to CVA. Patient had a recent hospitalization for PEG tube infection and was recently discharged back to [facility]. Patient apparently became more hypoxic and short of breath and was sent to the emergency department via ambulance for further evaluation. Chest x-ray on admission shows increased pulmonary and so social edema compared to previous exam that could be related to acute heart failure or interstitial pneumonia. Patient was started on IV antibiotic in the form of Zithromax and Zosyn and cardiology and pulmonary consulted. White blood count on admission is 17.0 hemoglobin is 9.7, platelets are 377, INR is 2.5, sodium is 132, potassium is 6.7, current creatinine is 0.82, blood sugar was 409, magnesium is 2.7, LFTs mildly elevated, troponin was positive at 0.049, CRP is 3.8, BNP is 1830. Urinalysis was done that was turbid showing large blood and large leukocytes. COVID-19 was negative. Gen: This is a 75-year-old female minimally responsive, alert and oriented 1, morbidly obese, ill-appearing, appears comfortable in no acute distress HEENT: Head is atraumatic, normocephalic. Pupils equal, round. Sclerae is anicteric. NECK: Supple. No JVD. No lymphadenopathy. No thyromegaly. LUNGS: Diminished breath sounds bilaterally with some scattered rhonchi noted. No intercostal retractions. HEART: S1, S2 are muffled ABDOMEN: Soft. Obese. Bowel sounds are present. No masses. No tenderness. No guarding or rigidity noted on palpation EXTREMITIES: No pedal edema. No calf tenderness. Right foot drop NEUROLOGICAL: Patient is asleep, minimally arousable and mumbling and incoherent when responding, alert and oriented x1. Diffusely weak. Please refer to medication reconciliation sheet for a list of medications. Patient Condition at Discharge: Poor Plan - Discharge Summary New Discharge Prescriptions: New Acetaminophen Suppository [Tylenol Suppository] 650 mg RECTAL Q6HR PRN supp PRN Reason: Fever And/ Or Pain Continue bisacodyL [Dulcolax] 10 mg RECTAL DAILY PRN PRN Reason: Constipation Discontinued Pravastatin Sodium [Pravachol] 40 mg PEG/G-TUBE HS@2100 levETIRAcetam [Keppra Oral Solution] 100 mg PEG/G-TUBE DAILY@0800 Aspirin 81 mg PEG/G-TUBE DAILY@0800 Multivitamins, Thera Liquid [Theragran Liquid (formulary)] 5 ml PEG/G-TUBE DAILY@1700 Loratadine [Claritin] 10 mg PEG/G-TUBE DAILY@1700 tab Simethicone 40 mg PEG/G-TUBE BID@0800,1700 Insulin Detemir (Levemir) [Levemir] 40 unit SQ HS@2100 Nitroglycerin Sl Tabs [Nitrostat] 0.4 mg SUBLINGUAL Q5M PRN PRN Reason: Chest Pain Na Phos,M-B/Na Phos,Di-Ba [Fleet Adult] 133 ml RECTAL DAILY PRN PRN Reason: Constipation Metoprolol Tartrate [Lopressor] 100 mg PEG/G-TUBE TID@0600,1400,2200 Saliva Stimulant Agents Comb.3 [Biotene Moisturizing Mouth] 5 ml MUCOUS MEM TID@0600,1400,2100 Voriconazole [Vfend] 300 mg PEG/G-TUBE BID@0600,2100 metFORMIN HCL [Glucophage] 500 mg PEG/G-TUBE BID@0800,1700 Ferrous Sulfate 330 mg PEG/G-TUBE DAILY@1700 Cholestyramine/Aspartame [Cholestyramine Light Packet] 4 gm PEG/G-TUBE HS@2300 Warfarin [Coumadin] 3 mg PEG/G-TUBE DAILY@1700 Furosemide [Lasix] 40 mg PEG/G-TUBE DAILY@0800 Magnesium Hydroxide [Milk of Magnesia] 2,400 mg PEG/G-TUBE DAILY PRN PRN Reason: Constipation Ipratropium-Albuterol Nebulize [Duoneb 0.5 mg-3 mg/3 ml Soln] 3 ml INHALATION RT-QID PRN PRN Reason: Shortness Of Breath Acetaminophen Oral Susp [Tylenol] 540 mg PEG/G-TUBE Q6H PRN PRN Reason: GENERAL DISCOMFORT INSULIN ASPART (NovoLOG) [NovoLOG (formulary)] See Protocol SQ ACHS dilTIAZem HCL 60 mg PEG/G-TUBE TID@0600,1400,2100 Gabapentin [Neurontin] 100 mg PEG/G-TUBE TID@0600,1400,2100 Discharge Medication List Acetaminophen Suppository [Tylenol Suppository] 650 mg RECTAL Q6HR PRN supp 11/17/20 [Rx] bisacodyL [Dulcolax] 10 mg RECTAL DAILY PRN 11/17/20 [History] Follow up Appointment(s)/Referral(s): Luis A Gomez MD [Primary Care Provider] - 1-2 days Activity/Diet/Wound Care/Special Instructions: Patient is returning to [facility] and family has signed on to [facility] with comfort measures only. Patient to continue with comfort medications only and prescriptions have been provided Discharge Disposition: TRANSFER TO SNF/ECF
[2020-11-17] MEDS ORDERED: PIPERACILLIN-TAZOBACTAM 3.375 GM in SODIUM CHLORIDE 0.9% 100 ML IVPB SCH (14:00)
[2020-11-17 14:59] VITALS: TEMP 98
[2020-11-17 15:54] VITALS: BP 120/48; PULSE 60
[2020-11-18] MEDS ORDERED: AZITHROMYCIN 500 MG in SODIUM CHLORIDE 0.9% 250 ML IVPB SCH (07:00)
--- NOTE | 2020-11-23 08:58 | CDI ---
Documentation Clarification Form Date: 11/23/2020 08:12:00 AM From: Josephine Torres Phone: Admit Date: 11/17/2020 06:02:00 AM Patient Name: Ariane Eric Visit Number: [id number] Discharge Date: 11/17/2020 03:56:00 PM ATTENTION: The Clinical Documentation Specialists (CDI) and [facility] Coding Staff appreciate your assistance in clarifying documentation. Please respond to the clarification below the line at the bottom and electronically sign. The CDI & [facility] Coding staff will review the response and follow-up if needed. Please note: Queries are made part of the Legal Health Record. If you have any questions, please contact the author of this message via ITS. Dr. Luis A Gomez The patient presented with the following clinical indicators. Additional clarification regarding the etiology/cause of the clinical indicators is requested, for acute urinary tract infection most likely related to chronic indwelling Harley catheter causing sepsis. History/Risk Factors: Previous CVA with L-sided weakness, UTI, O2 dependence, chronic respiratory failure, COPD, Clinical Indicators: Fever, SOB, hypoxia, recent URI, pulmonary congestion, acute pulmonary edema WBC: 17.0, Neutrophils: 14.9, CRP: 3.8, ALKPHOS-201, GLU-409 UA-WBC:>182, RBC>182, large blood and large leukocytes, Bacteria few, Mucus few Urine cultures: Micro proteus mirabillis Blood cultures: No Growth Vitals signs: Temp 99.9 F Axillary, hr 64 rr 16 BP 107/54, Spo@ 82 % Treatment: Antibiotics: IV Zosyn, IV Zithromax, Acetameinphen In your professional opinion, please clarify if these findings signify one of the following conditions: Sepsis secondary to indwelling harley catheter. [ ] Sepsis POA [ ] Sepsis, Not POA [ ] Sepsis ruled out [ ] Severe Sepsis with organ failure [ ] Septic Shock [ ] SIRS, without underlying infectious process [ ] Other, please specify [ ] Unable to determine SIRS Criteria: 2 or more of the following may indicate SIRS -Temperature < 96.8F (36C) or > 101.0F (38.3C) -Heart Rate > 90 bpm -Respiratory Rate > 20 breaths/min or PaCO2 < 32 mmHg -White Blood Cell Count > 12,000 or < 4,000 cells/mm3 or > 10% bands (Template Last Reviewed: March 2020) MTDD
--- NOTE | 2020-11-23 09:32 | CDI ---
Documentation Clarification Form Date: From: Josephine Torres Phone: Admit Date: 11/17/2020 06:02:00 AM Patient Name: Ariane Eric Visit Number: [id number] Discharge Date: 11/17/2020 03:56:00 PM ATTENTION: The Clinical Documentation Specialists (CDI) and [facility] Coding Staff appreciate your assistance in clarifying documentation. Please respond to the clarification below the line at the bottom and electronically sign. The CDI & [facility] Coding staff will review the response and follow-up if needed. Please note: Queries are made part of the Legal Health Record. If you have any questions, please contact the author of this message via ITS. Dr. Luis A Gomez Your patient has impression of Hypoxia, in mild distress, on 11/17, Emergency Dep. Based on this information and the findings below, is there an additional diagnosis that is clinically appropriate for this patient? History/Risk Factors: COPD, CHF, HX of Pneumonia, Sleep Apnea/CPAP/BIPAPA, chronic respiratory failure Tobacco use: Never Home oxygen: Yes Clinical Indicators: Pulmonary Congestion, Acute Pulmonary Edema (CXR pulm edema, sob) Vital signs: Temp 99.9, HR-64, RR-28, BP- 107/54, O2Sat 82 Pulse oximetry: 82 Treatment: Breathing tx Albuterol Duo Neb, Lasix Continuous Pulse ox O2/Vent/BiPap Yes Is there an additional diagnosis that is clinically appropriate for this patient? [ ] Acute Hypoxic Respiratory Failure (pO2 <60 mm Hg or SpO2 <91% on room air) [ ] Acute Hypercapnic Respiratory Failure (pCO2 >50 and pH <7.35) [ ] Acute on Chronic Respiratory Failure [ ] Chronic Respiratory Failure [ ] Acute Respiratory Distress [ ] Acute Respiratory Insufficiency [ ] Other Diagnosis, please specify [ ] Unable to determine (Template Last Revised: April 2020) MTDD
--- NOTE | 2020-11-24 07:19 | PN ---
PROGRESS NOTE ADDENDUM: Please add: 1. Systemic inflammatory response syndrome. 2. Acute on chronic hypoxemic respiratory failure with hypercapnia. MMODL / IJN: [id number] /
--- NOTE | 2020-11-28 23:17 | PN ---
PROGRESS NOTE ADDENDUM: Please add: Sepsis ruled in. MMODL / IJN: [id number] /
--- NOTE | 2020-11-29 09:19 | CDI ---
Documentation Clarification Form Date: From: Josephine Torres Phone: Admit Date: 11/17/2020 06:02:00 AM Patient Name: Ariane Eric Visit Number: [id number] Discharge Date: 11/17/2020 03:56:00 PM ATTENTION: The Clinical Documentation Specialists (CDI) and [facility] Coding Staff appreciate your assistance in clarifying documentation. Please respond to the clarification below the line at the bottom and electronically sign. The CDI & [facility] Coding staff will review the response and follow-up if needed. Please note: Queries are made part of the Legal Health Record. If you have any questions, please contact the author of this message via ITS. Dr. Luis A Gomez UTI is documented on 11/17/2020 and patient has a chronic indwelling harley catheter. Additional clarification regarding the etiology of the UTI is requested. History/Risk Factors: previous history of UTIs, chronic harley, hx of MRSA in urine Clinical Indicators: AMS, temp-99.9, WBC-17.0 Urinalysis: Urine Appearance :Turbid H Urine Protein : 1+ H Urine Glucose : 1+ H Urine Blood : Large H Ur Leukocyte Esterase :Large H Urine RBC >182 H Urine WBC >182 H Urine WBC Clumps Many H Amorphous Sediment Rare H Urine Bacteria Few H Hyaline Casts 28 H Urine Mucus Few H Urine culture: No culture done Lab results: Treatment: Azithromycin, Acetaminophen, Zosyn Please clarify the etiology of the UTI, if known: [ ] Harley catheter [ ] Suprapubic catheter [ ] Urostomy [ ] UTI not related to catheter/urostomy [ ] Other condition, please specify [ ] Unable to determine (Template Last Revised: April 2020) MTDD
--- NOTE | 2020-12-07 08:32 | CDI ---
Documentation Clarification Form Date: 12/07/2020 07:18:00 AM From: Josephine Torres Phone: Admit Date: 11/17/2020 06:02:00 AM Patient Name: Ariane Eric Visit Number: [id number] Discharge Date: 11/17/2020 03:56:00 PM ATTENTION: The Clinical Documentation Specialists (CDI) and [facility] Coding Staff appreciate your assistance in clarifying documentation. Please respond to the clarification below the line at the bottom and electronically sign. The CDI & [facility] Coding staff will review the response and follow-up if needed. Please note: Queries are made part of the Legal Health Record. If you have any questions, please contact the author of this message via ITS. Roger Flores UTI is documented on 11/17/2020 and patient has a chronic indwelling harley catheter. Additional clarification regarding the etiology of the UTI is requested. History/Risk Factors: previous history of UTIs, chronic harley Clinical Indicators: AMS, Urinalysis: Urine Appearance Turbid H (Clear) Urine Protein 1+ H (Negative) Urine Glucose (UA) 1+ H (Negative) Urine Blood Large H (Negative) Ur Leukocyte Esterase Large H (Negative) Urine RBC >182 H (0-5) /hpf Urine WBC >182 H (0-5) /hpf Urine WBC Clumps Many H (None) /hpf Amorphous Sediment Rare H (None) /hpf Urine Bacteria Few H (None) /hpf Hyaline Casts 28 H (0-2) /lpf Urine Mucus Few H (None) /hpf Urine culture: No culture done Lab results: Treatment: Please clarify the etiology of the UTI, if known: [ ] Harley catheter [ ] Suprapubic catheter [ ] Urostomy [ ] UTI not related to catheter/urostomy [ ] Other condition, please specify [ ] Unable to determine (Template Last Revised: April 2020) My assessment as per note and my assessment was clearly documented in my note. MTDD
== END 2020-11-17 15:56 | DRG 871 ==
LOC: EC 05:11 → 4SSUR 06:02 → 3SCARD 07:30
PROVIDERS: ADMIT Family Medicine; ATTEND Family Medicine
DX: A41.9 Sepsis, unspecified organism (principal); J96.21 Acute and chronic respiratory failure with hypoxia; J96.22 Acute and chronic respiratory failure with hypercapnia; I50.33 Acute on chronic diastolic (congestive) heart failure; T83.518A Infection and inflammatory reaction due to other urinary catheter, initial encounter; E87.1 Hypo-osmolality and hyponatremia; I48.92 Unspecified atrial flutter; Z16.24 Resistance to multiple antibiotics; I69.354 Hemiplegia and hemiparesis following cerebral infarction affecting left non-dominant side; N39.0 Urinary tract infection, site not specified; I11.0 Hypertensive heart disease with heart failure; Z20.822 Contact with and (suspected) exposure to COVID-19; E11.9 Type 2 diabetes mellitus without complications; E66.01 Morbid (severe) obesity due to excess calories; E78.5 Hyperlipidemia, unspecified; E87.5 Hyperkalemia; F03.90 Unspecified dementia, unspecified severity, without behavioral disturbance, psychotic disturbance, mood disturbance, and anxiety; F41.9 Anxiety disorder, unspecified; Z51.5 Encounter for palliative care; J44.9 Chronic obstructive pulmonary disease, unspecified; G43.909 Migraine, unspecified, not intractable, without status migrainosus; R74.8 Abnormal levels of other serum enzymes; F32.9 Major depressive disorder, single episode, unspecified; I48.0 Paroxysmal atrial fibrillation; I27.22 Pulmonary hypertension due to left heart disease; Z96.1 Presence of intraocular lens; Z93.1 Gastrostomy status; G47.30 Sleep apnea, unspecified; I05.0 Rheumatic mitral stenosis; J30.1 Allergic rhinitis due to pollen; J30.2 Other seasonal allergic rhinitis; J40 Bronchitis, not specified as acute or chronic; K21.9 Gastro-esophageal reflux disease without esophagitis; K59.00 Constipation, unspecified; R15.9 Full incontinence of feces; I69.391 Dysphagia following cerebral infarction; Z79.01 Long term (current) use of anticoagulants; Z79.4 Long term (current) use of insulin; Z79.82 Long term (current) use of aspirin; Z79.899 Other long term (current) drug therapy; Z80.0 Family history of malignant neoplasm of digestive organs; Z95.2 Presence of prosthetic heart valve; Z95.0 Presence of cardiac pacemaker; Z90.710 Acquired absence of both cervix and uterus; Z79.84 Long term (current) use of oral hypoglycemic drugs; Z99.81 Dependence on supplemental oxygen
CPT/HCPCS: 36415; 71045; 80053; 81001; 83735; 83880; 84100; 84443; 84484; 85025; 85610; 85730; 86140; 87040; 87077; 87086; 87186; 87635; 93005; 94640; 94644; 99291